=== PATIENT | male | born 1985 | race Caucasian/White ===

== ENCOUNTER 2018-06-19 02:31 | Inpatient (IN) | payer OTHER ==
[2018-06-19] MEDS ORDERED: NACL 0.9% 1000 ML 1,000 ML IV ONE (02:59)
[2018-06-19] MEDS ORDERED: NACL 0.9% 1000 ML IV ONE (03:17)
[2018-06-19] MEDS ORDERED: TYLENOL PO ONE (03:19)
[2018-06-19] MEDS ORDERED: LEVAQUIN 750MG/150ML 750 MG/150 ML BAG IV ONE (03:20)
[2018-06-19 03:45] LABS: INR 1.19 (0.87-1.13)
[2018-06-19 03:46] LABS: Partial Thromboplastin Time 28.7 Sec. (24.2-36.6)
--- NOTE | 2018-06-19 03:47 | Emergency Department Report ---
HPI - General Chief Complaint: Arrhythmia/Palpitations Time Seen by Provider: 06/19/18 02:58 - HPI HPI: 32-year-old male presents to the emergency department via EMS from home with complaint of a 2 day history of dizziness, chest pain, shortness of breath, cough and fever. He denies any past medical history but did have a previous episode of pneumonia around January of last year. He did not take anything for his symptoms prior to arrival. He denies any tobacco or illicit drug use or abuse. No recent travel or sick contacts at home. ED Past Medical Hx - Past Medical History Previous Medical History?: No - Surgical History Past Surgical History?: No - Social History Smoking Status: Never Smoker ED Review of Systems ROS: Stated complaint: DIZZINESS Other details as noted in HPI Comment: All other systems reviewed and negative Constitutional: chills, fever Eyes: denies: eye pain, vision change ENT: denies: ear pain, throat pain Respiratory: cough, shortness of breath Cardiovascular: chest pain, palpitations Gastrointestinal: denies: abdominal pain, vomiting Genitourinary: denies: dysuria, discharge Musculoskeletal: denies: back pain, joint swelling Skin: denies: rash, change in color Neurological: denies: headache, weakness Physical Exam - Physical Exam Vital Signs: Vital Signs 06/19/18 06/19/18 06/19/18 03:02 03:12 03:15 Temperature 102.5 F H Pulse Rate 153 H 151 H 151 H Respiratory 54 H 54 H Rate Blood Pressure 133/67 O2 Sat by Pulse 63 L 67 L Oximetry Physical Exam: GENERAL: Patient is ill-appearing. HEENT: Normocephalic. Atraumatic. Patient has moist mucous membranes. EYES: Extraocular motions are intact. Pupils are equal and reactive to light bilaterally. NECK: Supple. Trachea is midline. CHEST/LUNGS: Rhonchi heard throughout the bilateral lung herrera. There is tachypnea and accessory muscle use. There is respiratory distress noted. HEART/CARDIOVASCULAR: Regular. There is moderate to severe tachycardia. There is no obvious murmur. ABDOMEN: Abdomen is soft, nontender. Patient has normal bowel sounds. There is no abdominal distention. SKIN: Skin is warm and dry. NEURO: The patient is awake, alert, and oriented. The patient is cooperative. The patient has no focal neurologic deficits. The patient has normal speech. MUSCULOSKELETAL: There is no tenderness or deformity. There is no limitation range of motion. There is no evidence of acute injury. ED Course Vital Signs 06/19/18 06/19/18 06/19/18 03:02 03:12 03:15 Temperature 102.5 F H Pulse Rate 153 H 151 H 151 H Respiratory 54 H 54 H Rate Blood Pressure 133/67 O2 Sat by Pulse 63 L 67 L Oximetry - ABG Interpretation Ph: 7.437 PCO2: 22 PO2: 28 Bicarbonate: 14 Interpretation: respiratory alkalosis, metabolic acidosis, other (hypoxemia) - Intubation Time Out Performed: Yes Sedative: Etomidate Mg Given: 20 Paralytic: Succinylcholine Mg Given: 70 Laryngoscope: Hayder Size: 4 ET Tube Size: 7.5 Tube Secured Depth (cm): 24 Tube Secured Location: lips Tube Placement Confirmation: visualized tube passing t, equal breath sounds bilat, confirmation by capnometr Patient Tolerated Procedure: well Intubation Complications: none ED Medical Decision Making - Lab Data Result diagrams: 06/19/18 Unknown 06/19/18 Unknown - EKG Data -: EKG Interpreted by Me EKG shows normal: sinus rhythm, axis, intervals, QRS complexes, ST-T waves Rate: tachycardia (154 bpm) - EKG Data When compared to previous EKG there are: previous EKG unavailable Interpretation: other (Sinus tach at 154 bpm) - Radiology Data Radiology results: report reviewed, image reviewed interpreted by me: Chest x-ray shows bilateral diffuse patchy infiltrates concerning for pneumonia. No pneumothorax. No obvious pleural effusions. PROCEDURE: CT ANGIO CHEST TECHNIQUE: Computerized axial tomographic angiography of the chest and pulmonary arteries was performed after the IV injection of iodinated nonionic contrast. The image data was postprocessed using maximum intensity projection (MIP) and 2-dimensional multiplanar reformatted (MPR) techniques. The examination is specifically tailored to the evaluation of the pulmonary arteries per clinical request. HISTORY: Short of breath 786.09, chest pain 786.50, SOB, hypoxia, elevated dimer COMPARISON: No prior studies are available for comparison. FINDINGS: Heart and pericardium: Normal. Thoracic aorta: There is no thoracic aortic aneurysm or dissection.. Pulmonary vasculature: Normal. No pulmonary emboli. Lymph nodes: No enlarged thoracic lymph nodes. Lungs: There are diffuse bilateral perihilar and lower lobe infiltrates.. Pleural space: No effusion, thickening, or pneumothorax. Musculoskeletal structures: No significant abnormality. Upper abdominal structures: No significant abnormality. IMPRESSION: There is no pulmonary embolism. There are diffuse bilateral infiltrates.. Transcribed By: CO Dictated By: SOLOMON ROJO MD Electronically Authenticated By: SOLOMON ROJO MD Signed Date/Time: 06/19/18 0534 - Medical Decision Making Patient presents to the emergency department with a two-day history of some shortness of breath, fever, chest discomfort/tightness, coughing. Patient meets sepsis criteria. IV fluid resuscitation and antibiotics were started. The patient was found to have moderate tachycardia and tachypnea and was moved from bed 5 to bed 21. He was having some hypoxia so he was placed on a nonrebreather is improved to the hypoxia only transiently and he continues to have increased work of breathing so then a BiPAP was tried. Once again there was only transient improvement and the patient continues to breathe at 50-55 breaths per minute with continued tachycardia. For this reason, after discussing the procedure with the patient and his family, the decision was made to intubate. Patient's labs show mild leukocytosis, mild hyponatremia. ABG shows metabolic acidosis, respiratory alkalosis and hypoxemia. Chest x-ray showed bilateral diffuse patchy infiltrates. A CT angiography of the chest was done secondary to a elevated d-dimer level that did not show any pulmonary embolism but once again confirms diffuse bilateral pneumonia. Patient will be admitted to the ICU for further evaluation and treatment and was accepted for admission by the hospitalist, Dr. Tyson. - Differential Diagnosis pneumonia, PE, URI, pneumothorax, CHF Critical Care Time: Yes Critical care time in (mins) excluding proc time.: 45 Critical care attestation.: If time is entered above; I have spent that time in minutes in the direct care of this critically ill patient, excluding procedure time. Critical care time was spent on this patient and during his initial evaluation, multiple evaluations, ordering an interpretation of labs and imaging, ventilator man agement. This does not include the time spent doing the intubation procedure. Critical Care Time: 45 minutes ED Disposition Clinical Impression: Hyponatremia Bilateral pneumonia Qualifiers: Pneumonia type: due to unspecified organism Lung location: unspecified part of lung Qualified Code(s): J18.9 - Pneumonia, unspecified organism Sepsis Qualifiers: Sepsis type: sepsis due to unspecified organism Qualified Code(s): A41.9 - Sepsis, unspecified organism Acute respiratory failure Qualifiers: Respiratory failure complication: unspecified whether with hypoxia or hypercapnia Qualified Code(s): J96.00 - Acute respiratory failure, unspecified whether with hypoxia or hypercapnia Disposition: 09 OP ADMIT IP TO THIS HOSP Is pt being admited?: Yes Condition: Critical Instructions: Bacterial Pneumonia (ED) Referrals: MARIA FERNANDA MADDEN MD [Primary Care Provider] - 3-5 Days Time of Disposition: 06:38
[2018-06-19 03:58] LABS: BUN/Creatinine Ratio 20; Blood Urea Nitrogen 12 mg/dL (9-20); Calcium 8.1 mg/dL (8.4-10.2); Hemolysis Index 11
[2018-06-19 04:01] LABS: Alanine Aminotransferase 36 units/L (7-56); Albumin 2.8 g/dL (3.9-5)
[2018-06-19 04:05] LABS: Bilirubin,Direct < 0.2 mg/dL (0-0.2)
--- NOTE | 2018-06-19 04:17 | XRay Report ---
FINAL REPORT PROCEDURE: XR CHEST 1V AP TECHNIQUE: Chest radiograph anteroposterior view. CPT 29758 HISTORY: Chest Pain COMPARISON: No prior studies are available for comparison. FINDINGS: Heart: Normal. Mediastinum/Vessels: Normal. Lungs/Pleural space: There are bilateral perihilar lower lobe infiltrates. There is no effusion or pn eumothorax.. Bony thorax: No acute osseous abnormality. Life support devices: None. IMPRESSION: Heart size is normal.. There are bilateral perihilar lower lobe infiltrates. There is no effusion or pneumothorax..
[2018-06-19 04:19] LABS: Hematocrit 38.7 % (35.5-45.6); Hemoglobin 12.9 gm/dl (11.8-15.2); Mean Corpuscular HGB Conc 33 % (32-34); Mean Corpuscular Volume 93 fl (84-94); Platelet Count 316 K/mm3 (140-440); Red Blood Count 4.16 M/mm3 (3.65-5.03); Red Cell Distribution Width 13.9 % (13.2-15.2)
[2018-06-19] MEDS ORDERED: TORADOL IV ONE (04:31)
--- NOTE | 2018-06-19 05:34 | Cat Scan Report ---
FINAL REPORT PROCEDURE: CT ANGIO CHEST TECHNIQUE: Computerized axial tomographic angiography of the chest and pulmonary arteries was perfor med after the IV injection of iodinated nonionic contrast. The image data was postprocessed using max imum intensity projection (MIP) and 2-dimensional multiplanar reformatted (MPR) techniques. The exami nation is specifically tailored to the evaluation of the pulmonary arteries per clinical request. HISTORY: Short of breath 786.09, chest pain 786.50, SOB, hypoxia, elevated dimer COMPARISON: No prior studies are available for comparison. FINDINGS: Heart and pericardium: Normal. Thoracic aorta: There is no thoracic aortic aneurysm or dissection.. Pulmonary vasculature: Normal. No pulmonary emboli. Lymph nodes: No enlarged thoracic lymph nodes. Lungs: There are diffuse bilateral perihilar and lower lobe infiltrates.. Pleural space: No effusion, thickening, or pneumothorax. Musculoskeletal structures: No significant abnormality. Upper abdominal structures: No significant abnormality. IMPRESSION: There is no pulmonary embolism. There are diffuse bilateral infiltrates..
[2018-06-19 05:44] LABS: Basophils % (Manual) 0 % (0.0-1.8); Total Cells Counted 100
[2018-06-19 05:45] LABS: Anisocytosis 1+; Band Neutrophils # (Manual) 5.5 K/mm3; Eosinophils % (Manual) 0 % (0.0-4.3); Ovalocytes 1+
[2018-06-19] MEDS ORDERED: fentaNYL DRIP Premix 2,000 MCG/100 ML BAG IV ONE ×3 (06:00→16:48)
[2018-06-19] MEDS ORDERED: VASELINE LIP THERAPY TP PRN (06:00)
[2018-06-19] MEDS: SUBLIMAZE IV PRN (06:03)
[2018-06-19] MEDS: fentaNYL DRIP Premix 2,000 MCG/100 ML BAG IV SCH ×4 (06:06→22:26)
[2018-06-19] MEDS ORDERED: VANCOMYCIN/NS 1 GM/250 ML 1 GM/250 ML BAG IV ONE (06:30)
[2018-06-19] MEDS ORDERED: SODIUM CHLORIDE FLUSH SYRINGE 10 ML IV PRN (06:30)
[2018-06-19] MEDS ORDERED: ZOFRAN IV PRN (06:30)
[2018-06-19] MEDS: MIDAZOLAM 100 MG in NACL 0.9% 80 ML IV SCH (06:30)
[2018-06-19] MEDS ORDERED: NACL 0.9% 1000 ML 2,000 ML IV ONE (06:32)
--- NOTE | 2018-06-19 06:33 | History and Physical Report ---
History of Present Illness Date of examination: 06/19/18 History of present illness: 32-year-old man with hypertension comes emergency room with complaints of shortness of breath, cough for 3days. He was found to have extensive bilateral pneumonia, placed on BiPAP but he failed. The patient had to be intubated. , ROS unobtainable. Altered bedside stated that the patient has very depressed since March, his at that time. He has been eating very little PAST MEDICAL HISTORY: Unknown PAST SURGICAL HISTORY: Unknown SOCIAL HISTORY: Unknown FAMILY HISTORY: Unknown Medications and Allergies Allergies Allergy/AdvReac Type Severity Reaction Status Date / Time No Known Allergies Allergy Verified 06/19/18 06:10 Home Medications Medication Instructions Recorded Confirmed Last Taken Type ALBUTEROL Inhaler (OR & NICU) 2 puff IH QID PRN 06/19/18 06/19/18 Unknown History [Proair] Pantoprazole [Protonix] 40 mg PO QDAY 06/19/18 06/19/18 Unknown History levoFLOXacin [Levaquin TAB] 500 mg PO QDAY 06/19/18 06/19/18 Unknown History Active Meds: Active Medications Acetaminophen (Tylenol) 650 mg PO Q4H PRN PRN Reason: Pain MILD(1-3)/Fever >100.5/[place] Enoxaparin Sodium (Lovenox) 30 mg SUB-Q QDAY PEYTON Fentanyl (Sublimaze) 50 mcg IV Q10MIN PRN PRN Reason: ANALGESIA Last Admin: 06/19/18 06:03 Dose: 50 mcg Documented by: Hydrophilic Ointment (Vaseline Lip Therapy) 1 applic TP Q2HR PRN PRN Reason: Dry Lips Fentanyl Citrate (Fentanyl Drip Premix) 2,000 mcg in 100 mls @ 3.86 mls/hr IV TITR PEYTON; Protocol Last Admin: 06/19/18 06:06 Dose: 5 mcg/kg/hr, 19.301 mls/hr Documented by: Midazolam HCl 100 mg/ Sodium (Chloride) 100 mls @ 2 mls/hr IV TITR PYETON; Protocol Sodium Chloride (Nacl 0.9% 1000 Ml) 1,000 mls @ 150 mls/hr IV DIRECT PEYTON Vancomycin HCl (Vancomycin/Ns 1 Gm/250 Ml) 1 gm in 250 mls @ 167.007 mls/hr IV ONCE ONE; Protocol Stop: 06/19/18 07:59 Piperacillin Sod/Tazobactam Sod (Zosyn/Ns 4.5gm/100ml) 4.5 gm in 100 mls @ 200 mls/hr IV Q8HR PEYTON; Protocol Sodium Chloride (Nacl 0.9% 1000 Ml) 2,000 mls @ 999 mls/hr IV ONCE ONE Stop: 06/19/18 08:32 Multi-Ingred Cream/Lotion/Oil/Oint (Artificial Tears Ophth Oint) 1 applic OU Q4HR PRN PRN Reason: Dry Eye(s) Ondansetron HCl (Zofran) 4 mg IV Q8H PRN PRN Reason: Nausea And Vomiting Sodium Chloride (Sodium Chloride Flush Syringe 10 Ml) 10 ml IV BID PEYTON Sodium Chloride (Sodium Chloride Flush Syringe 10 Ml) 10 ml IV PRN PRN PRN Reason: LINE FLUSH Exam - Physical Exam Narrative exam: General Apperance: The patient lying in bed, breathing comfortable, intubated HEENT: Normocephalic, atraumatic. Pupils equally round and reactive to light, unable to do EOM, no sclericterus or JVD or thyromegaly or nodule. , no carotid bruit, mucous membranes moist, unable to examine oral cavity Heart: S1-S2, regular is rhythm Lungs: Crackles bilaterally, breathing comfortable Abdomen: Positive bowel sounds, soft, nondistended, no organomegaly Extremities: No edema cyanosis clubbing Skin: no rash, nodule, warm and dry Neuro: Sedated - Constitutional Vitals: Temp Pulse Resp BP Pulse Ox 99.9 F H 146 H 30 H 132/94 85 06/19/18 06:31 06/19/18 06:29 06/19/18 06:29 06/19/18 06:29 06/19/18 06:29 Results - Labs CBC & Chem 7: 07/08/18 05:00 07/08/18 05:00 Labs: Abnormal lab results 06/19/18 06/19/18 06/19/18 Range/Units 03:31 Unknown Unknown WBC 12.9 H (4.5-11.0) K/mm3 Lymphocytes % (Manual) 5.0 L (13.4-35.0) % Lymphocytes # (Manual) 0.6 L (1.2-5.4) K/mm3 PT 15.9 H (12.2-14.9) Sec. INR 1.19 H (0.87-1.13) D-Dimer 8449.09 H (0-234) ng/mlDDU POC ABG pCO2 22.0 L (35-45) POC ABG pO2 28 L (80-105) Sodium (137-145) mmol/L Chloride (98-107) mmol/L Carbon Dioxide (22-30) mmol/L Creatinine (0.8-1.5) mg/dL Glucose (75-100) mg/dL Calcium (8.4-10.2) mg/dL AST (5-40) units/L Total Protein (6.3-8.2) g/dL Albumin (3.9-5) g/dL 06/19/18 06/19/18 Range/Units Unknown Unknown WBC (4.5-11.0) K/mm3 Lymphocytes % (Manual) (13.4-35.0) % Lymphocytes # (Manual) (1.2-5.4) K/mm3 PT (12.2-14.9) Sec. INR (0.87-1.13) D-Dimer (0-234) ng/mlDDU POC ABG pCO2 (35-45) POC ABG pO2 (80-105) Sodium 129 L (137-145) mmol/L Chloride 90.7 L (98-107) mmol/L Carbon Dioxide 17 L (22-30) mmol/L Creatinine 0.6 L (0.8-1.5) mg/dL Glucose 199 H (75-100) mg/dL Calcium 8.1 L (8.4-10.2) mg/dL AST 53 H (5-40) units/L Total Protein 6.0 L (6.3-8.2) g/dL Albumin 2.8 L (3.9-5) g/dL - Imaging and Cardiology EKG: image reviewed Chest x-ray: image reviewed CT scan - chest: report reviewed Assessment and Plan Assessment Acute respiratory failure Sepsis Extensive bilateral pneumonia Plan Admit to medicine Start Zosyn, given dose of Vanco, continue Levaquin Aggressive fLUID resuscitation Start high-dose steroids, first dose now Consult ID, case discussed with Dr. Sanchez, recommended to start Tamiflu Consult critical care DVT prophylaxis
[2018-06-19] MEDS ORDERED: SOLU-Medrol ONE (06:44)
[2018-06-19] MEDS ORDERED: TYLENOL PR ONE ×2 (06:45)
[2018-06-19] MEDS ORDERED: SOLU-Medrol IV ONE (06:45)
[2018-06-19] MEDS ORDERED: NACL 0.9% 1000 ML 1,000 ML IV SCH (07:00)
[2018-06-19] MEDS: ZOSYN/NS 4.5GM/100ML 4.5 GM/100 ML VIAL IV SCH ×3 (07:01→22:20)
--- NOTE | 2018-06-19 07:07 | Event Note ---
Date: 06/19/18 Cross cover assist for the admitting attending to place HIV testing.
--- NOTE | 2018-06-19 07:50 | XRay Report ---
FINAL REPORT PROCEDURE: XR CHEST 1V AP TECHNIQUE: Chest radiograph anteroposterior view. CPT 50615 HISTORY: ETT placement COMPARISON: 06/19/2018 FINDINGS: Heart: Normal. Mediastinum/Vessels: Normal. Lungs/Pleural space: There are diffuse bilateral perihilar pulmonary infiltrates similar to prior gee dy. There is no effusion or pneumothorax per. Bony thorax: No acute osseous abnormality. Life support devices: There is an endotracheal tube. The tip is 4 centimeters above the bernardino.. IMPRESSION: Heart size is normal.. There are diffuse bilateral perihilar pulmonary infiltrates similar to prior study. There is no effus ion or pneumothorax per. There is an endotracheal tube. The tip is 4 centimeters above the bernardino..
[2018-06-19 08:30] LABS: Bilirubin,Urine NEG (Negative); Blood,Urine SM (Negative); Color,Urine Yellow (Yellow); Mucus,Urine FEW /HPF; Urobilinogen,Urine < 2.0 mg/dL (<2.0)
[2018-06-19 09:00] LABS: Amphetamine Screen,Urine PRESUMPTIVE NEGATIVE; Cannabinoid Screen,Urine PRESUMPTIVE NEGATIVE; Cocaine Screen,Urine PRESUMPTIVE NEGATIVE; Methadone Screen,Urine PRESUMPTIVE NEGATIVE; Opiate Screen,Urine PRESUMPTIVE NEGATIVE
[2018-06-19] MEDS ORDERED: SODIUM BICARBONATE IV ONE (09:00)
[2018-06-19 09:11] LABS: Benzodiazepines Screen,Urine PRESUMPTIVE POSITIVE
[2018-06-19] MEDS: SODIUM CHLORIDE FLUSH SYRINGE 10 ML IV SCH ×2 (09:48→22:21)
[2018-06-19] MEDS: NACL 0.9% 1000 ML 1,000 ML IV SCH ×4 (10:00→16:16)
[2018-06-19] MEDS ORDERED: LOVENOX SUB-Q SCH ×3 (10:00→22:00)
[2018-06-19] MEDS ORDERED: TAMIFLU PO SCH (10:00)
[2018-06-19] MEDS: TAMIFLU PO SCH (10:01)
--- NOTE | 2018-06-19 10:04 | Consultation ---
History of Present Illness Consult date: 06/19/18 Requesting physician: PAMELA ALARCON Reason for consult: hypoxemia, pneumonia, abnormal CXR/CT History of present illness: The patient is a 32-year-old male with no significant past medical history who presented to the emergency room with complaints of worsening shortness of breath over the last 2-3 days. Upon evaluation in the emergency room, he was found to be significantly hypoxic initially requiring BiPAP which he failed and hence he had to be intubated. I have been consulted for critical care management. He is unable to give history. He has friends and family at the bedside, who state his suddenly several weeks ago but are unable to provide any further history CT chest angiogram shows extensive bilateral infiltrates. An HIV test done is positive. Patient was seen and examined. Vitals, labs, medications, chart and imaging reviewed. He is orally intubated, sedated. No patient-ventilator dys-synchrony Medications and Allergies Allergies Allergy/AdvReac Type Severity Reaction Status Date / Time No Known Allergies Allergy Verified 06/19/18 06:10 Home Medications Medication Instructions Recorded Confirmed Last Taken Type ALBUTEROL Inhaler (OR & NICU) 2 puff IH QID PRN 06/19/18 06/19/18 Unknown Histor y [Proair] Pantoprazole [Protonix] 40 mg PO QDAY 06/19/18 06/19/18 Unknown History levoFLOXacin [Levaquin TAB] 500 mg PO QDAY 06/19/18 06/19/18 Unknown History Active Meds: Active Medications Acetaminophen (Tylenol) 650 mg PO Q4H PRN PRN Reason: Pain MILD(1-3)/Fever >100.5/[place] Enoxaparin Sodium (Lovenox) 40 mg SUB-Q QDAY@1000 PEYTON Last Admin: 06/19/18 10:00 Dose: 40 mg Documented by: Fentanyl (Sublimaze) 50 mcg IV Q10MIN PRN PRN Reason: ANALGESIA Last Admin: 06/19/18 06:03 Dose: 50 mcg Documented by: Hydrophilic Ointment (Vaseline Lip Therapy) 1 applic TP Q2HR PRN PRN Reason: Dry Lips Fentanyl Citrate (Fentanyl Drip Premix) 2,000 mcg in 100 mls @ 3.86 mls/hr IV TITR PEYTON; Protocol Last Admin: 06/19/18 06:06 Dose: 5 mcg/kg/hr, 19.301 mls/hr Documented by: Midazolam HCl 100 mg/ Sodium (Chloride) 100 mls @ 2 mls/hr IV TITR PEYTON; Froilan col Last Admin: 06/19/18 06:30 Dose: 2 mg/hr, 2 mls/hr Documented by: Sodium Chloride (Nacl 0.9% 1000 Ml) 1,000 mls @ 150 mls/hr IV DIRECT PEYTON Last Admin: 06/19/18 07:48 Dose: 150 mls/hr Documented by: Piperacillin Sod/Tazobactam Sod (Zosyn/Ns 4.5gm/100ml) 4.5 gm in 100 mls @ 200 mls/hr IV Q8HR PEYTON; Protocol Last Admin: 06/19/18 07:01 Dose: 200 mls/hr Documented by: Levofloxacin/Dextrose (Levaquin 750mg/150ml) 750 mg in 150 mls @ 100 mls/hr IV Q24HR PEYTON; Protocol Sodium Chloride (Nacl 0.9% 1000 Ml) 1,000 mls @ 0 mls/hr IV ONCE PEYTON Stop: 06/20/18 10:01 Last Admin: 06/19/18 10:00 Dose: 1,000 mls/hr Documented by: Multi-Ingred Cream/Lotion/Oil/Oint (Artificial Tears Ophth Oint) 1 applic OU Q4HR PRN PRN Reason: Dry Eye(s) Ondansetron HCl (Zofran) 4 mg IV Q8H PRN PRN Reason: Nausea And Vomiting Oseltamivir Phosphate (Tamiflu) 75 mg PO BID [facility] Stop: 06/23/18 10:01 Last Admin: 06/19/18 10:01 Dose: 75 mg Documented by: Sodium Chloride (Sodium Chloride Flush Syringe 10 Ml) 10 ml IV BID PEYTON Last Admin: 06/19/18 09:48 Dose: 10 ml Documented by: Sodium Chloride (Sodium Chloride Flush Syringe 10 Ml) 10 ml IV PRN PRN PRN Reason: LINE FLUSH Physical Examination Vital signs: Vital Signs Temp Pulse BP 102.5 F H 153 H 133/67 06/19/18 03:02 06/19/18 03:02 06/19/18 03:02 Constitutional: sedated, intubated -no dys-synchrony, ETT at 23cm at the lip Head, Ears, Nose: Normocephalic, atraumatic. Eyes: Conjunctivae/corneas clear. No icterus. No ptosis. Neck: Supple, no meningeal signs Cardiovascular: Tachycardia, S1, S2 normal, no murmurs Respiratory: Decreased air entry bilaterally, clear to auscultation bilaterally GI: Soft, non-tender; bowel sounds normal. No peritoneal signs Musculoskeletal: No pedal edema, no cyanosis. Skin: No rash or abscess Hem/Lymphatic: No palpable cervical or supraclavicular nodes. Psych: no agitation Neurological: sedated Results - Laboratory Findings CBC and BMP: 06/25/18 11:40 06/25/18 11:40 ABG POC ABG pH 7.198 (7.35-7.45) L 06/19/18 09:49 POC ABG pCO2 40.2 (35-45) 06/19/18 09:49 POC ABG pO2 96 (80-105) 06/19/18 09:49 POC ABG HCO3 15.6 06/19/18 09:49 POC ABG Total CO2 17 06/19/18 09:49 POC ABG O2 Sat 96 06/19/18 09:49 PT/INR, D-dimer PT 15.9 Sec. (12.2-14.9) H 06/19/18 Unknown INR 1.19 (0.87-1.13) H 06/19/18 Unknown D-Dimer 8449.09 ng/mlDDU (0-234) H 06/19/18 Unknown Abnormal lab findings: Abnormal Labs 06/19/18 06/19/18 06/19/18 03:31 07:42 08:07 WBC Lymphocytes % (Manual) Lymphocytes # (Manual) PT INR D-Dimer POC ABG pH 6.974 L POC ABG pCO2 22.0 L 83.4 H POC ABG pO2 28 L 122 H Sodium Chloride Carbon Dioxide Creatinine Glucose Calcium AST Total Protein Albumin Ur Specific [place] 1.060 H Urine WBC (Auto) 8.0 H 06/19/18 06/19/18 06/19/18 08:16 09:49 Unknown WBC 12.9 H Lymphocytes % (Manual) 5.0 L Lymphocytes # (Manual) 0.6 L PT INR D-Dimer POC ABG pH 6.996 L 7.198 L POC ABG pCO2 82.4 H POC ABG pO2 Sodium Chloride Carbon Dioxide Creatinine Glucose Calcium AST Total Protein Albumin Ur Specific [place] Urine WBC (Auto) 06/19/18 06/19/18 06/19/18 Unknown Unknown Unknown WBC Lymphocytes % (Manual) Lymphocytes # (Manual) PT 15.9 H INR 1.19 H D-Dimer 8449.09 H POC ABG pH POC ABG pCO2 POC ABG pO2 Sodium 129 L Chloride 90.7 L Carbon Dioxide 17 L Creatinine 0.6 L Glucose 199 H Calcium 8.1 L AST 53 H Total Protein 6.0 L Albumin 2.8 L Ur Specific [place] Urine WBC (Auto) - Diagnostic Findings Chest x-ray: image reviewed (Bilateral alveolar infitrates) CT scan - chest: image reviewed Assessment and Plan Acute Hypoxemic Respiratory Failure on MVS AIDS / HIV positive Severe Sepsis due to Pneumonia Hyponatremia Severe metabolic acidosis -VAP bundle addressed - Continue supplemental oxygen to keep sats > 90% -Increase PEEP and FIO2 for better oxygenation -tracheal aspirator for cultures, fungal stains and silver stain - continue bronchodilators with pulmonary -vasopressor support if indicated to keep MAP>65 - Bactrim, emiprically for PJP, add steroids -Continue empiric and targeted anti-infective's per ID recs - place small bowel feeding tube for enteral nutrition -Aspiration precautions, HOB>40 -Accucheck and monitor for hypoglycemia -Target glucose of 140mg- 180mg/dL - monitor for drug-drug interactions - nutrition consult - Daily SATs and SBT per protocol - VTE and stress ulcer prophylaxis -critical care bundles addressed -muir catheter in this critically ill patient requiring strict intake and output monitor CONDITION: CRITICAL PROGNOSIS: GUARDED CODE STATUS: FULL CODE The high probability of a clinically significant, sudden or life-threatening deterioration of the [cardiac, respiratory] system(s) required my full and direct attention, intervention and personal management. The aggregate critical care time was [65] minutes without overlap. Time includes spent on; [x] Data Review and interpretation [x] Patient assessment and monitoring of vital signs [x] Documentation
[2018-06-19] MEDS ORDERED: NACL 0.9% 500 ML 500 ML IV ONE (10:07)
[2018-06-19] MEDS ORDERED: PEPCID IV SCH (11:00)
[2018-06-19] MEDS ORDERED: ZOSYN/NS 4.5GM/100ML 4.5 GM/100 ML VIAL IV ONE (13:10)
[2018-06-19] MEDS ORDERED: NACL 0.9% 500 ML 500 ML ONE (13:10)
[2018-06-19] MEDS ORDERED: ZEMURON IV ONE (14:28)
[2018-06-19] MEDS ORDERED: QUELICIN ONE (14:28)
[2018-06-19] MEDS ORDERED: AMIDATE IV ONE (14:28)
[2018-06-19] MEDS ORDERED: VERSED IV ONE (14:28)
[2018-06-19] MEDS ORDERED: LOVENOX SUB-Q ONE (15:00)
--- NOTE | 2018-06-19 15:09 | Consultation ---
History of Present Illness - Reason for Consult Consult date: 06/19/18 bilateral pneumonia Requesting physician: PAMELA ALARCON - History of Present Illness The patient is a 32-year-old male with no significant past medical history who presented to the emergency room with complaints of worsening shortness of breath over the last 2-3 days. Upon evaluation in the emergency room, he was found to be significantly hypoxic initially requiring BiPAP which he failed and hence he had to be intubated. He underwent a CT chest angiogram which showed extensive bilateral pneumonia for which infectious diseases was consulted. We recommended obtaining an HIV test and starting the patient empirically on Tamiflu and checking him for influenza. His HIV test has returned positive. Currently he is intubated, sedated on mechanical ventilation. Unable to provide any history. His aunt is at the bedside who doesn't seem to know most of the history. Review of Systems: Intubated, unable to provide history Medications and Allergies Allergies Allergy/AdvReac Type Severity Reaction Status Date / Time No Known Allergies Allergy Verified 06/19/18 06:10 Home Medications Medication Instructions Recorded Confirmed Last Taken Type ALBUTEROL Inhaler (OR & NICU) 2 puff IH QID PRN 06/19/18 06/19/18 Unknown History [Proair] Pantoprazole [Protonix] 40 mg PO QDAY 06/19/18 06/19/18 Unknown History levoFLOXacin [Levaquin TAB] 500 mg PO QDAY 06/19/18 06/19/18 Unknown History Active Meds: Active Medications Acetaminophen (Tylenol) 650 mg PO Q4H PRN PRN Reason: Pain MILD(1-3)/Fever >100.5/[place] Enoxaparin Sodium (Lovenox) 40 mg SUB-Q QDAY@1000 PEYTON Last Admin: 06/19/18 10:00 Dose: 40 mg Documented by: Enoxaparin Sodium (Lovenox) 120 mg 1.5 mg/kg (120 mg) SUB-Q Q24HR ONE Stop: 06/19/18 15:01 Famotidine (Pepcid) 20 mg IV ONCE PEY[place] Famotidine (Pepcid) 20 mg IV DAILY PEYTON Fentanyl (Sublimaze) 50 mcg IV Q10MIN PRN PRN Reason: ANALGESIA Last Admin: 06/19/18 06:03 Dose: 50 mcg Documented by: Hydrophilic Ointment (Vaseline Lip Therapy) 1 applic TP Q2HR PRN PRN Reason: Dry Lips Fentanyl Citrate (Fentanyl Drip Premix) 2,000 mcg in 100 mls @ 3.86 mls/hr IV TITR PEYTON; Protocol Last Titration: 06/19/18 14:36 Dose: 4 mcg/kg/hr, 15.441 mls/hr Documented by: Midazolam HCl 100 mg/ Sodium (Chloride) 100 mls @ 2 mls/hr IV TITR PEYTON; Protocol Last Admin: 06/19/18 06:30 Dose: 2 mg/hr, 2 mls/hr Documented by: Sodium Chloride (Nacl 0.9% 1000 Ml) 1,000 mls @ 150 mls/hr IV DIRECT PEYTON Last Admin: 06/19/18 07:48 Dose: 150 mls/hr Documented by: Piperacillin Sod/Tazobactam Sod (Zosyn/Ns 4.5gm/100ml) 4.5 gm in 100 mls @ 200 mls/hr IV Q8HR PEYTON; Protocol Last Admin: 06/19/18 13:20 Dose: 200 mls/hr Documented by: Sodium Chloride (Nacl 0.9% 1000 Ml) 1,000 mls @ 0 mls/hr IV ONCE PEY[place] Stop: 06/20/18 10:01 Last Admin: 06/19/18 11:37 Dose: 1,000 mls/hr Documented by: Sodium Chloride (Nacl 0.9% 1000 Ml) 1,000 mls @ 0 mls/hr IV ONCE PEY[place] Stop: 06/20/18 15:01 Norepinephrine (Levophed Drip 4 Mg/Ns 250 Ml) 4 mg in 250 mls @ 7.5 mls/hr IV TITR PEYTON; Protocol Trimethoprim/Sulfamethoxazole 385 mg/ IV Miscellaneous Supplies 24.0625 mls @ 167 mls/hr IV Q6HR PEYTON; Protocol Methylprednisolone Sodium Succinate (Solu-Medrol) 40 mg IV Q12HR PEYTON Multi-Ingred Cream/Lotion/Oil/Oint (Artificial Tears Ophth Oint) 1 applic OU Q4HR PRN PRN Reason: Dry Eye(s) Ondansetron HCl (Zofran) 4 mg IV Q8H PRN PRN Reason: Nausea And Vomiting Oseltamivir Phosphate (Tamiflu) 75 mg PO BID PEYTON Stop: 06/23/18 10:01 Last Admin: 06/19/18 10:01 Dose: 75 mg Documented by: Sodium Chloride (Sodium Chloride Flush Syringe 10 Ml) 10 ml IV BID PEYTON Last Admin: 06/19/18 09:48 Dose: 10 ml Documented by: Sodium Chloride (Sodium Chloride Flush Syringe 10 Ml) 10 ml IV PRN PRN PRN Reason: LINE FLUSH Physical Examination - Physical Exam Narrative exam: Physical Exam: Constitutional: sedated, intubated Head, Ears, Nose: Normocephalic, atraumatic. External ears, nose normal Eyes: Conjunctivae/corneas clear. No icterus. No ptosis. Neck: Supple, no meningeal signs Oral: intubated Cardiovascular: S1, S2 normal. Respiratory: Good air entry, clear to auscultation bilaterally GI: Soft, non-tender; bowel sounds normal. No peritoneal signs Musculoskeletal: No pedal edema, no cyanosis. Skin: No rash or abscess Hem/Lymphatic: No palpable cervical or supraclavicular nodes. No lymphangitis Psych: no agitation Neurological: sedated, intubated, on vent - Constitutional Vitals: Vital Signs Temp Pulse Resp BP Pulse Ox 97.2 F L 106 H 30 H 87/57 94 06/19/18 13:50 06/19/18 14:15 06/19/18 14:15 06/19/18 14:15 06/19/18 14:15 Temperature -Last 24 Hours Temperature 97.2 F Temperature 97.8 F Temperature 98.4 F Temperature 99.4 F Temperature 99.9 F Temperature 98.9 F Temperature 102.5 F Results - Labs CBC & Chem 7: 06/19/18 Unknown 06/19/18 Unknown Labs: Abnormal lab results 06/19/18 06/19/18 06/19/18 Range/Units 03:31 07:42 08:07 WBC (4.5-11.0) K/mm3 Lymphocytes % (Manual) (13.4-35.0) % Lymphocytes # (Manual) (1.2-5.4) K/mm3 PT (12.2-14.9) Sec. INR (0.87-1.13) D-Dimer (0-234) ng/mlDDU POC ABG pH 6.974 L (7.35-7.45) POC ABG pCO2 22.0 L 83.4 H (35-45) POC ABG pO2 28 L 122 H (80-105) Sodium (137-145) mmol/L Chloride (98-107) mmol/L Carbon Dioxide (22-30) mmol/L Creatinine (0.8-1.5) mg/dL Glucose (75-100) mg/dL Calcium (8.4-10.2) mg/dL AST (5-40) units/L Total Protein (6.3-8.2) g/dL Albumin (3.9-5) g/dL Ur Specific [place] 1.060 H (1.003-1.030) Urine WBC (Auto) 8.0 H (0.0-6.0) /HPF 06/19/18 06/19/18 06/19/18 Range/Units 08:16 09:49 11:15 WBC (4.5-11.0) K/mm3 Lymphocytes % (Manual) (13.4-35.0) % Lymphocytes # (Manual) (1.2-5.4) K/mm3 PT (12.2-14.9) Sec. INR (0.87-1.13) D-Dimer (0-234) ng/mlDDU POC ABG pH 6.996 L 7.198 L 7.206 L (7.35-7.45) POC ABG pCO2 82.4 H (35-45) POC ABG pO2 75 L (80-105) Sodium (137-145) mmol/L Chloride (98-107) mmol/L Carbon Dioxide (22-30) mmol/L Creatinine (0.8-1.5) mg/dL Glucose (75-100) mg/dL Calcium (8.4-10.2) mg/dL AST (5-40) units/L Total Protein (6.3-8.2) g/dL Albumin (3.9-5) g/dL Ur Specific [place] (1.003-1.030) Urine WBC (Auto) (0.0-6.0) /HPF 06/19/18 06/19/18 06/19/18 Range/Units Unknown Unknown Unknown WBC 12.9 H (4.5-11.0) K/mm3 Lymphocytes % (Manual) 5.0 L (13.4-35.0) % Lymphocytes # (Manual) 0.6 L (1.2-5.4) K/mm3 PT 15.9 H (12.2-14.9) Sec. INR 1.19 H (0.87-1.13) D-Dimer 8449.09 H (0-234) ng/mlDDU POC ABG pH (7.35-7.45) POC ABG pCO2 (35-45) POC ABG pO2 (80-105) Sodium 129 L (137-145) mmol/L Chloride 90.7 L (98-107) mmol/L Carbon Dioxide 17 L (22-30) mmol/L Creatinine 0.6 L (0.8-1.5) mg/dL Glucose 199 H (75-100) mg/dL Calcium 8.1 L (8.4-10.2) mg/dL AST (5-40) units/L Total Protein (6.3-8.2) g/dL Albumin (3.9-5) g/dL Ur Specific [place] (1.003-1.030) Urine WBC (Auto) (0.0-6.0) /HPF 06/19/18 Range/Units Unknown WBC (4.5-11.0) K/mm3 Lymphocytes % (Manual) (13.4-35.0) % Lymphocytes # (Manual) (1.2-5.4) K/mm3 PT (12.2-14.9) Sec. INR (0.87-1.13) D-Dimer (0-234) ng/mlDDU POC ABG pH (7.35-7.45) POC ABG pCO2 (35-45) POC ABG pO2 (80-105) Sodium (137-145) mmol/L Chloride (98-107) mmol/L Carbon Dioxide (22-30) mmol/L Creatinine (0.8-1.5) mg/dL Glucose (75-100) mg/dL Calcium (8.4-10.2) mg/dL AST 53 H (5-40) units/L Total Protein 6.0 L (6.3-8.2) g/dL Albumin 2.8 L (3.9-5) g/dL Ur Specific [place] (1.003-1.030) Urine WBC (Auto) (0.0-6.0) /HPF - Imaging and Cardiology Chest x-ray: report reviewed, image reviewed (bilateral ground glass opacities and pneumonia) CT scan - chest: report reviewed, image reviewed (bilateral ground glass opacities and pneumonia) Assessment and Plan Cultures: 06/19/2018 blood culture: Progress 06/19/2018 tracheal aspirate: In progress A/P: 32/M with: #1 Bilateral pneumonia: Extensive bilateral ground glass opacities and pneumonia with severe hypoxia: Clinically concerning for PCP pneumonia since HIV test has come back as positive. Will start IV Bactrim and steroids. PCP DFA ordered on tracheal aspirate #2 Acute respiratory failure: Requiring mechanical ventilation. #3 HIV, likely AIDS: Follow-up CD4 count, viral load and genotype. Also check CMV DNA PCR. #4 Sepsis: Likely secondary to above Recs: Due to high suspicion for possible PCP pneumonia, discontinued levofloxacin and started empiric IV Bactrim Additional HIV labs ordered Started IV steroids as adjunctive therapy due to hypoxia Continue Tamiflu for now till flu PCR results are back PCP DFA ordered on tracheal aspirate CMV PCR also ordered Okay to continue Zosyn for now, anticipate stopping soon MD [facility] C: [phone] O: [phone] F: [phone]
[2018-06-19] MEDS ORDERED: LEVOPHED DRIP 4 MG/NS 250 ML 4 MG/250 ML BAG IV ONE (15:10)
[2018-06-19] MEDS: LEVOPHED DRIP 4 MG/NS 250 ML 4 MG/250 ML BAG IV SCH (15:16)
--- NOTE | 2018-06-19 15:31 | Event Note ---
Date: 06/19/18 Patient seen and examined, remains critically ill. Continue current management. Ask friend at bedside this am, If he can assist in obtaining patients medical hx or family information. Already given 4 liters of fluids-NS. Will start on Pressors. Discussed with Team to place line Await cultures Guarded prognosis.
[2018-06-19] MEDS ORDERED: ATIVAN ONE (15:44)
[2018-06-19] MEDS ORDERED: ATIVAN IV ONE (15:44)
[2018-06-19] MEDS ORDERED: SIMPLE SYRUP FEEDTUBE PRN ×2 (16:02)
[2018-06-19] MEDS ORDERED: PANCREAZE DR 10,500 UNIT FEEDTUBE PRN (16:02)
[2018-06-19] MEDS ORDERED: SODIUM BICARBONATE FEEDTUBE PRN (16:02)
--- NOTE | 2018-06-19 16:44 | Procedure Note ---
Date of procedure: 06/19/18 Pre-op diagnosis: Respiratory Failure, sepsis Post-op diagnosis: same Procedure: Right IJ Central Line placement under ultrasound guidance. Patient prepped and draped in the usual sterile fashion. timeout taken to verify correct patient, procedure, and operative site. Ultrasound utilized to identify the RIJV. Local anesthesia with 1% Lidocaine. Seldinger technique used to access the RIJV. Guidewire placed into the RIJV and the seeker needle removed over the wire. Scalpel used to incise the skin. Dilator placed over the guidewire and removed. Triple lumen catheter placed into RIJV without difficulty and sewn in place. All 3 ports flush and draw with ease. biopatch placed at incision site. Postop CXR did not show pneumothorax. Central line in SVC. Anesthesia: local Surgeon: ALFREDO BONILLA Estimated blood loss: minimal Pathology: none Condition: critical Disposition: ICU
[2018-06-19] MEDS: BACTRIM IV SCH ×2 (17:05→18:12)
[2018-06-19] MEDS: D5W IV SCH ×2 (17:05→18:12)
--- NOTE | 2018-06-19 17:12 | XRay Report ---
FINAL REPORT EXAM: XR CHEST 1V AP HISTORY: Central Line Placement TECHNIQUE: Chest single AP PRIORS: Comparison is dated June 19, 2018 FINDINGS: ET tube in satisfactory position approximately 4 centimeters above bernardino. There is a right IJ cathet er with tip at the SVC. No evidence for pneumothorax post catheter placement. There is an NG tube dis rodrigo end overlying the left upper quadrant of the abdomen. There are extensive ground-glass hazy opaci ties with some air bronchograms present suspect pulmonary edema. No pleural effusion identified. Ther e is mild thickening of the minor fissure. IMPRESSION: Right IJ catheter and other life-support devices in satisfactory position Findings most suggestive of pulmonary edema unchanged from prior exam
--- NOTE | 2018-06-19 18:36 | Vascular Lab Report ---
FINAL REPORT EXAM: VL VENOUS DUPLEX LE BILAT HISTORY: DVT TECHNIQUE: Ultrasound bilateral deep venous system with pulsed and color Doppler evaluation PRIORS: None. FINDINGS: Ultrasound deep venous system right lower extremity demonstrates normal compressibility and flow antoinette acteristics. There is normal sonographic appearance of the deep venous system with normal waveforms o n pulsed and color Doppler evaluation Within the left lower extremity there is normal flow and is superficial femoral through popliteal vei ns with normal flow on Doppler evaluation. The peroneal and posterior tibial veins demonstrate incomp letely seen compressibility most consistent with the calf vein deep venous thrombosis. IMPRESSION: Findings are most consistent with deep venous thrombosis within the left peroneal and posterior tibia l vein which are incompletely compressible. This may be acute or chronic finding. CTR 2 protocol initiated at the time of this dictation
--- NOTE | 2018-06-19 19:39 | Event Note ---
Date: 06/19/18 Pt seen and evaluated by me. Pt found to be critically ill. LLE Duplex reported at E DVT. Pt initiated on therapeutic anticoagulation. CT head ordered as well. 65 minutes critical care time dedicated to patient care.
--- NOTE | 2018-06-19 20:25 | Cat Scan Report ---
FINAL REPORT EXAM: CT HEAD/BRAIN WO CON HISTORY: confusion TECHNIQUE: CT head without contrast PRIORS: None. FINDINGS: No acute intra-axial or extra-axial hemorrhage is identified. There is no evidence of midline shift or mass effect. The ventricles and sulci are within normal limits. Lisa-white matter differentiation is intact. No acute parenchymal abnormalities seen. Bony calvarium is grossly intact. Visualized portions of the mastoids and paranasal sinuses are unre markable. IMPRESSION: Negative CT head
[2018-06-19] MEDS: SOLU-Medrol IV SCH (22:20)
[2018-06-19] MEDS: LOVENOX SUB-Q SCH (22:20)
[2018-06-20] MEDS: BACTRIM IV SCH ×4 (00:22→18:00)
[2018-06-20] MEDS: D5W IV SCH ×4 (00:22→18:00)
--- NOTE | 2018-06-20 02:34 | XRay Report ---
FINAL REPORT EXAM: XR ABDOMEN 1V AP HISTORY: OG tube placement TECHNIQUE: An upright view of the abdomen was obtained. FINDINGS: The tip of the NG tube is in the antral region of the stomach. The bowel gas pattern otherwise is unr emarkable. Free air is not seen. There are atelectatic changes in both lung bases. IMPRESSION: Tip of the NG tube in the antral region of the stomach.
[2018-06-20] MEDS: TAMIFLU PO SCH ×3 (03:46→22:14)
--- NOTE | 2018-06-20 06:03 | XRay Report ---
FINAL REPORT PROCEDURE: XR CHEST 1V AP TECHNIQUE: Chest radiograph anteroposterior view. CPT 21992 HISTORY: follow up respiratory failure COMPARISON: No prior studies are available for comparison. FINDINGS: Heart: Heart size is normal. Mediastinum/Vessels: Normal. Lungs/Pleural space: There is no acute infiltrate. There is minimal residual pulmonary edema. This herr s improved significantly since the prior study. There is no pleural effusion or pneumothorax.. Bony thorax: No acute osseous abnormality. Life support devices: The endotracheal tube, NG tube and central venous catheter are in proper positi on and unchanged from prior study. IMPRESSION: Heart size is normal. There is no acute infiltrate. There is minimal residual pulmonary edema. This has improved significan tly since the prior study. There is no pleural effusion or pneumothorax.. The endotracheal tube, NG tube and central venous catheter are in proper position and unchanged from prior study. .
[2018-06-20] MEDS: ZOSYN/NS 4.5GM/100ML 4.5 GM/100 ML VIAL IV SCH ×3 (06:07→22:13)
[2018-06-20] MEDS: fentaNYL DRIP Premix 2,000 MCG/100 ML BAG IV SCH ×2 (06:55→19:50)
[2018-06-20 08:37] LABS: Hematocrit 30.4 % (35.5-45.6); Hemoglobin 9.8 gm/dl (11.8-15.2); Mean Corpuscular HGB Conc 32 % (32-34); Mean Corpuscular Volume 94 fl (84-94); Platelet Count 252 K/mm3 (140-440); Red Blood Count 3.25 M/mm3 (3.65-5.03); Red Cell Distribution Width 14.5 % (13.2-15.2)
[2018-06-20 08:59] LABS: Albumin 2.1 g/dL (3.9-5); BUN/Creatinine Ratio 19; Blood Urea Nitrogen 15 mg/dL (9-20); Calcium 6.6 mg/dL (8.4-10.2); Hemolysis Index 4
[2018-06-20 09:23] LABS: Alanine Aminotransferase 836 units/L (7-56)
[2018-06-20 09:46] LABS: Basophils % (Manual) 0 % (0.0-1.8); Eosinophils % (Manual) 0 % (0.0-4.3); Monocytes % (Manual) 0 % (0.0-7.3); Total Cells Counted 100
[2018-06-20 09:47] LABS: Anisocytosis 1+; Ovalocytes 1+; Platelet Estimate Consistent w Auto; Poikilocytosis 1+
[2018-06-20] MEDS ORDERED: LEVAQUIN 750MG/150ML 750 MG/150 ML BAG IV SCH (10:00)
[2018-06-20] MEDS ORDERED: PEPCID IV SCH (10:00)
[2018-06-20] MEDS: SODIUM CHLORIDE FLUSH SYRINGE 10 ML IV SCH ×2 (10:12→22:16)
[2018-06-20] MEDS: LOVENOX SUB-Q SCH ×2 (10:12→22:12)
[2018-06-20] MEDS: SOLU-Medrol IV SCH ×2 (10:12→22:12)
--- NOTE | 2018-06-20 10:58 | Progress Note ---
Assessment and Plan Cultures: 06/19/2018 blood culture: Progress 06/19/2018 tracheal aspirate: In progress A/P: 32/M with: #1 Bilateral pneumonia: Extensive bilateral ground glass opacities and pneumonia with severe hypoxia: Clinically concerning for PCP pneumonia since HIV test has come back as positive. Will continue IV Bactrim and steroids. PCP DFA ordered on tracheal aspirate and pending. #2 Acute respiratory failure: Requiring mechanical ventilation. #3 HIV, likely AIDS: Follow-up CD4 count, viral load and genotype. Also f/u CMV DNA PCR. #4 Sepsis: Likely secondary to above Recs: continue empiric IV Bactrim f/u HIV labs continue IV steroids as adjunctive therapy due to hypoxia Continue Tamiflu for now till flu PCR results are back, spoke to RN today to ensure sample is sent PCP DFA f/u CMV PCR f/u Okay to continue Zosyn for now, anticipate stopping soon Nimesh Sanchez MD [facility] C: [phone] O: [phone] F: [phone] Subjective Date of service: 06/20/18 Interval history: No fever. Last night had hypotension, briefly required pressors, now off. Remains on the vent. Can be awakened, follows basic commands. Discussed with RN, no new concerns. Objective - Exam Narrative Exam: Physical Exam: Constitutional: sedated, intubated, can be awakened. Head, Ears, Nose: Normocephalic, atraumatic. External ears, nose normal Eyes: Conjunctivae/corneas clear. No icterus. No ptosis. Neck: Supple, no meningeal signs Oral: intubated Cardiovascular: S1, S2 normal. Respiratory: Good air entry, clear to auscultation bilaterally GI: Soft, non-tender; bowel sounds normal. No peritoneal signs Musculoskeletal: No pedal edema, no cyanosis. Skin: No rash or abscess Hem/Lymphatic: No palpable cervical or supraclavicular nodes. No lymphangitis Psych: no agitation Neurological: sedated, intubated, on vent, can be awakened, follows commands. - Constitutional Vitals: Vital Signs Temp Pulse Resp BP Pulse Ox 98.9 F 105 H 22 137/81 99 06/20/18 08:00 06/20/18 08:21 06/20/18 08:21 06/20/18 08:21 06/20/18 08:21 Temperature -Last 24 Hours Temperature 98.9 F Temperature 98.3 F Temperature 97.2 F Temperature 97.2 F Temperature 97.8 F - Labs CBC & Chem 7: 06/20/18 08:13 06/20/18 08:13 Labs: Abnormal lab results 06/19/18 06/19/18 06/20/18 Range/Units 11:15 18:54 04:33 WBC (4.5-11.0) K/mm3 RBC (3.65-5.03) M/mm3 Hgb (11.8-15.2) gm/dl Hct (35.5-45.6) % Seg Neuts % (Manual) (40.0-70.0) % Lymphocytes % (Manual) (13.4-35.0) % Seg Neutrophils # Man (1.8-7.7) K/mm3 Lymphocytes # (Manual) (1.2-5.4) K/mm3 POC ABG pH 7.206 L 7.249 L (7.35-7.45) POC ABG pO2 75 L 118 H (80-105) Carbon Dioxide (22-30) mmol/L Glucose (75-100) mg/dL POC Glucose 196 H (70-105) Calcium (8.4-10.2) mg/dL AST (5-40) units/L ALT (7-56) units/L Total Protein (6.3-8.2) g/dL Albumin (3.9-5) g/dL 06/20/18 06/20/18 Range/Units 08:13 08:13 WBC 11.8 H (4.5-11.0) K/mm3 RBC 3.25 L (3.65-5.03) M/mm3 Hgb 9.8 L D (11.8-15.2) gm/dl Hct 30.4 L D (35.5-45.6) % Seg Neuts % (Manual) 99.0 H (40.0-70.0) % Lymphocytes % (Manual) 1.0 L (13.4-35.0) % Seg Neutrophils # Man 11.7 H (1.8-7.7) K/mm3 Lymphocytes # (Manual) 0.1 L (1.2-5.4) K/mm3 POC ABG pH (7.35-7.45) POC ABG pO2 (80-105) Carbon Dioxide 19 L (22-30) mmol/L Glucose 223 H (75-100) mg/dL POC Glucose (70-105) Calcium 6.6 L D (8.4-10.2) mg/dL AST 1240 H (5-40) units/L ALT 836 H (7-56) units/L Total Protein 4.9 L (6.3-8.2) g/dL Albumin 2.1 L (3.9-5) g/dL - Imaging and cardiology Chest x-ray: report reviewed, image reviewed (slight improvement, bilateral infiltrates)
[2018-06-20] MEDS: HumaLOG SUB-Q SCH ×2 (13:00→17:59)
--- NOTE | 2018-06-20 13:18 | Progress Note ---
Assessment and Plan Acute Hypoxemic Respiratory Failure on MVS AIDS / HIV positive Severe Sepsis due to Pneumonia Hyponatremia Severe metabolic acidosis Lower extremity DVT -VAP bundle addressed - Continue supplemental oxygen to keep sats > 90% -Wean PEEP and FIO2 as tolerated -ARDS net protocol with lung protective strategies - follow up tracheal aspirate cultures - continue bronchodilators with pulmonary -vasopressor support if indicated to keep MAP>65 - Bactrim, emiprically for PJP, continue steroids -Continue empiric and targeted anti-infective's per ID recs - Continue enteral nutrition -Aspiration precautions, HOB>40 -Accucheck and monitor for hypoglycemia -Target glucose of 140mg- 180mg/dL - monitor for drug-drug interaction - Daily SATs and SBT per protocol - Stress ulcer prophylaxis -Anticoagulation -critical care bundles addressed -muir catheter in this critically ill patient requiring strict intake and output monitor CONDITION: CRITICAL PROGNOSIS: GUARDED CODE STATUS: FULL CODE The high probability of a clinically significant, sudden or life-threatening deterioration of the [cardiac, respiratory] system(s) required my full and direct attention, intervention and personal management. The aggregate critical care time was [65] minutes without overlap. Time includes spent on; [x] Data Review and interpretation [x] Patient assessment and monitoring of vital signs [x] Documentation Subjective Date of service: 06/20/18 Interval history: Patient is seen today for: Acute Hypoxemic Respiratory Failure on MVS; AIDS / HIV positive; Severe Sepsis due to Pneumonia; Hyponatremia; Severe metabolic acidosis Seen and examined at bedside; 24hour events reviewed; nursing and respiratory care staff consulted; no adverse overnight events reported to me; fevers overnight; on fentanyl and versed; opens eyes on verbal and tactile stimulation; remains on MVS; no seizures reported; no emesis or overt aspiration Discussed on ICU-IDT rounds Objective - Exam Narrative Exam: VITAL SIGNS: Reviewed. Right IJ CVC GENERAL: will open eyes to verbal and tactile stimuli No patient-ventilator dyssynchrony HEAD: No signs of head trauma. EYES: Pupils are equal. Extraocular motions intact. EARS: Hearing grossly intact. MOUTH: ETT at 23cm NECK: No adenopathy, no JVD. CHEST: Tachypnea, with bilateral crackles.. CARDIAC: Tachycardia S1 and S2, without murmurs, gallops, or rubs. VASCULAR: No Edema. Peripheral pulses normal and equal in all extremities. ABDOMEN: Soft, without detectable tenderness. No sign of distention. No rebound or guarding, and no masses palpated. Bowel Sounds normal. MUSCULOSKELETAL: . Extremities without clubbing, cyanosis or edema. NEUROLOGIC EXAM: awake, orientation unable to assess. PSYCHIATRIC: Mood unable to assess SKIN: No rash or lesions. Vital Signs - 12hr 06/20/18 06/20/18 06/20/18 01:21 01:30 01:41 Temperature Pulse Rate 101 H 99 H 100 H Pulse Rate [ From Monitor] Respiratory 23 21 20 Rate Blood Pressure 92/62 102/62 102/62 O2 Sat by Pulse 95 92 94 Oximetry 06/20/18 06/20/18 06/20/18 01:51 02:00 02:11 Temperature Pulse Rate 100 H 110 H 102 H Pulse Rate [ From Monitor] Respiratory 20 24 25 H Rate Blood Pressure 102/69 104/67 104/67 O2 Sat by Pulse 94 90 95 Oximetry 06/20/18 06/20/18 06/20/18 02:21 02:30 02:41 Temperature Pulse Rate 102 H 102 H 100 H Pulse Rate [ From Monitor] Respiratory 22 24 20 Rate Blood Pressure 102/62 98/62 98/62 O2 Sat by Pulse 95 94 96 Oximetry 06/20/18 06/20/18 06/20/18 02:51 03:00 03:11 Temperature Pulse Rate 101 H 100 H 100 H Pulse Rate [ From Monitor] Respiratory 22 19 24 Rate Blood Pressure 105/60 105/70 105/70 O2 Sat by Pulse 96 95 97 Oximetry 06/20/18 06/20/18 06/20/18 03:21 03:31 03:41 Temperature Pulse Rate 100 H 100 H 99 H Pulse Rate [ From Monitor] Respiratory 22 22 25 H Rate Blood Pressure 107/65 108/63 108/63 O2 Sat by Pulse 97 95 98 Oximetry 06/20/18 06/20/18 06/20/18 03:51 04:00 04:01 Temperature 98.3 F Pulse Rate 100 H 98 H Pulse Rate [ 106 H From Monitor] Respiratory 24 23 Rate Blood Pressure 99/54 98/74 O2 Sat by Pulse 97 95 97 Oximetry 06/20/18 06/20/18 06/20/18 04:11 04:21 04:30 Temperature Pulse Rate 98 H 99 H 110 H Pulse Rate [ From Monitor] Respiratory 25 H 23 28 H Rate Blood Pressure 98/74 101/62 113/83 O2 Sat by Pulse 98 98 97 Oximetry 06/20/18 06/20/18 06/20/18 04:35 04:41 04:51 Temperature Pulse Rate 117 H 105 H 99 H Pulse Rate [ From Monitor] Respiratory 25 H 26 H Rate Blood Pressure 113/83 92/66 O2 Sat by Pulse 100 95 94 Oximetry 06/20/18 06/20/18 06/20/18 05:00 05:11 05:21 Temperature Pulse Rate 96 H 98 H 98 H Pulse Rate [ From Monitor] Respiratory 23 23 20 Rate Blood Pressure 105/62 105/62 108/57 O2 Sat by Pulse 92 95 94 Oximetry 06/20/18 06/20/18 06/20/18 05:31 05:41 05:51 Temperature Pulse Rate 96 H 96 H 112 H Pulse Rate [ From Monitor] Respiratory 21 17 24 Rate Blood Pressure 100/61 100/61 96/70 O2 Sat by Pulse 93 95 94 Oximetry 06/20/18 06/20/18 06/20/18 06:00 06:11 06:21 Temperature Pulse Rate 105 H 112 H 106 H Pulse Rate [ From Monitor] Respiratory 29 H 17 27 H Rate Blood Pressure 101/61 101/61 118/80 O2 Sat by Pulse 92 93 94 Oximetry 06/20/18 06/20/18 06/20/18 06:30 06:41 06:51 Temperature Pulse Rate 104 H 98 H 108 H Pulse Rate [ From Monitor] Respiratory 28 H 25 H 27 H Rate Blood Pressure 90/64 90/64 98/61 O2 Sat by Pulse 91 93 90 Oximetry 06/20/18 06/20/18 06/20/18 07:00 07:11 07:21 Temperature Pulse Rate 98 H 96 H 96 H Pulse Rate [ From Monitor] Respiratory 22 22 22 Rate Blood Pressure 103/52 103/52 102/58 O2 Sat by Pulse 91 92 90 Oximetry 06/20/18 06/20/18 06/20/18 07:30 07:37 07:41 Temperature Pulse Rate 94 H 96 H 96 H Pulse Rate [ From Monitor] Respiratory 22 18 Rate Blood Pressure 107/54 107/54 107/54 O2 Sat by Pulse 87 91 90 Oximetry 06/20/18 06/20/18 06/20/18 07:51 08:00 08:11 Temperature 98.9 F Pulse Rate 115 H 99 H 110 H Pulse Rate [ 99 H From Monitor] Respiratory 23 20 18 Rate Blood Pressure 105/54 103/62 103/62 O2 Sat by Pulse 92 87 90 Oximetry 06/20/18 06/20/18 06/20/18 08:21 08:30 08:41 Temperature Pulse Rate 105 H 103 H 100 H Pulse Rate [ From Monitor] Respiratory 22 21 21 Rate Blood Pressure 137/81 112/61 112/61 O2 Sat by Pulse 99 96 99 Oximetry 06/20/18 06/20/18 06/20/18 08:51 09:01 09:11 Temperature Pulse Rate 97 H 94 H 95 H Pulse Rate [ From Monitor] Respiratory 20 18 17 Rate Blood Pressure 109/63 122/53 122/53 O2 Sat by Pulse 99 97 99 Oximetry 06/20/18 06/20/18 06/20/18 09:21 09:30 09:41 Temperature Pulse Rate 94 H 93 H 94 H Pulse Rate [ From Monitor] Respiratory 21 18 19 Rate Blood Pressure 99/60 103/61 103/61 O2 Sat by Pulse 99 95 98 Oximetry 06/20/18 06/20/18 06/20/18 09:51 10:00 10:11 Temperature Pulse Rate 93 H 110 H 106 H Pulse Rate [ From Monitor] Respiratory 19 24 22 Rate Blood Pressure 99/52 95/62 95/62 O2 Sat by Pulse 98 100 94 Oximetry 06/20/18 06/20/18 06/20/18 10:21 10:30 10:41 Temperature Pulse Rate 110 H 104 H 115 H Pulse Rate [ From Monitor] Respiratory 22 21 24 Rate Blood Pressure 109/67 117/62 117/62 O2 Sat by Pulse 95 93 95 Oximetry 06/20/18 06/20/18 06/20/18 10:51 11:00 11:11 Temperature Pulse Rate 105 H 99 H 97 H Pulse Rate [ From Monitor] Respiratory 27 H 24 24 Rate Blood Pressure 93/63 100/55 100/55 O2 Sat by Pulse 96 94 97 Oximetry 06/20/18 06/20/18 06/20/18 11:21 11:30 11:41 Temperature Pulse Rate 95 H 90 108 H Pulse Rate [ From Monitor] Respiratory 21 20 20 Rate Blood Pressure 109/54 99/56 99/56 O2 Sat by Pulse 97 95 97 Oximetry 06/20/18 06/20/18 06/20/18 11:51 12:00 12:01 Temperature 98.6 F Pulse Rate 104 H 99 H 98 H Pulse Rate [ 98 H From Monitor] Respiratory 26 H 26 H 26 H Rate Blood Pressure 113/64 106/55 103/57 O2 Sat by Pulse 97 96 94 Oximetry 06/20/18 12:11 Temperature Pulse Rate 96 H Pulse Rate [ From Monitor] Respiratory 22 Rate Blood Pressure 113/64 O2 Sat by Pulse 96 Oximetry CBC and BMP: 06/25/18 11:40 06/25/18 11:40 ABG, PT/INR, D-dimer: ABG POC ABG pH 7.249 (7.35-7.45) L 06/20/18 04:33 POC ABG pCO2 41.9 (35-45) 06/20/18 04:33 POC ABG pO2 118 (80-105) H 06/20/18 04:33 POC ABG HCO3 18.3 06/20/18 04:33 POC ABG Total CO2 20 06/20/18 04:33 POC ABG O2 Sat 98 06/20/18 04:33 PT/INR, D-dimer PT 15.9 Sec. (12.2-14.9) H 06/19/18 Unknown INR 1.19 (0.87-1.13) H 06/19/18 Unknown D-Dimer 8449.09 ng/mlDDU (0-234) H 06/19/18 Unknown Abnormal lab findings: Abnormal Labs 06/19/18 06/19/18 06/19/18 03:31 07:42 08:07 WBC RBC Hgb Hct Seg Neuts % (Manual) Lymphocytes % (Manual) Seg Neutrophils # Man Lymphocytes # (Manual) PT INR D-Dimer POC ABG pH 6.974 L POC ABG pCO2 22.0 L 83.4 H POC ABG pO2 28 L 122 H Sodium Chloride Carbon Dioxide Creatinine Glucose POC Glucose Calcium AST ALT Total Protein Albumin Ur Specific [place] 1.060 H Urine WBC (Auto) 8.0 H 06/19/18 06/19/18 06/19/18 08:16 09:49 11:15 WBC RBC Hgb Hct Seg Neuts % (Manual) Lymphocytes % (Manual) Seg Neutrophils # Man Lymphocytes # (Manual) PT INR D-Dimer POC ABG pH 6.996 L 7.198 L 7.206 L POC ABG pCO2 82.4 H POC ABG pO2 75 L Sodium Chloride Carbon Dioxide Creatinine Glucose POC Glucose Calcium AST ALT Total Protein Albumin Ur Specific [place] Urine WBC (Auto) 06/19/18 06/19/18 06/19/18 18:54 Unknown Unknown WBC 12.9 H RBC Hgb Hct Seg Neuts % (Manual) Lymphocytes % (Manual) 5.0 L Seg Neutrophils # Man Lymphocytes # (Manual) 0.6 L PT 15.9 H INR 1.19 H D-Dimer 8449.09 H POC ABG pH POC ABG pCO2 POC ABG pO2 Sodium Chloride Carbon Dioxide Creatinine Glucose POC Glucose 196 H Calcium AST ALT Total Protein Albumin Ur Specific [place] Urine WBC (Auto) 06/19/18 06/19/18 06/20/18 Unknown Unknown 04:33 WBC RBC Hgb Hct Seg Neuts % (Manual) Lymphocytes % (Manual) Seg Neutrophils # Man Lymphocytes # (Manual) PT INR D-Dimer POC ABG pH 7.249 L POC ABG pCO2 POC ABG pO2 118 H Sodium 129 L Chloride 90.7 L Carbon Dioxide 17 L Creatinine 0.6 L Glucose 199 H POC Glucose Calcium 8.1 L AST 53 H ALT Total Protein 6.0 L Albumin 2.8 L Ur Specific [place] Urine WBC (Auto) 06/20/18 06/20/18 06/20/18 08:13 08:13 12:59 WBC 11.8 H RBC 3.25 L Hgb 9.8 L D Hct 30.4 L D Seg Neuts % (Manual) 99.0 H Lymphocytes % (Manual) 1.0 L Seg Neutrophils # Man 11.7 H Lymphocytes # (Manual) 0.1 L PT INR D-Dimer POC ABG pH POC ABG pCO2 POC ABG pO2 Sodium Chloride Carbon Dioxide 19 L Creatinine Glucose 223 H POC Glucose 174 H Calcium 6.6 L D AST 1240 H ALT 836 H Total Protein 4.9 L Albumin 2.1 L Ur Specific [place] Urine WBC (Auto) Chest x-ray: image reviewed (Bilateral alveolar infiltrates, ETT and RIJ in good position)
--- NOTE | 2018-06-20 18:00 | Progress Note ---
Assessment and Plan Assessment and plan: 32-year-old man with hypertension comes emergency room with complaints of shortness of breath, cough for 3days. He was found to have extensive bilateral pneumonia, placed on BiPAP but he failed. The patient had to be intubated. , ROS unobtainable. Altered bedside stated that the patient has very depressed since March, his at that time. He has been eating very little Acute respiratory failure with hypoxia requiring full mechanical ventilatory support Sepsis secondary to bilateral pneumonia Excessive bilateral pneumonia HIV Hyponatremia Severe metabolic acidosis Plan of care Continue full ventilatory support as directed by receiving tank operator Continue antibiotics as recommended by ID VAP precautions agree with continuation of Tamiflu till flu PCR is also noted. Awaiting family to assist with patient's medical history and any home medications DVT and GI prophylaxis Case discussed with nursing staff. The high probability of a clinically significant, sudden or life threatening deterioration of the [Pulmonary] system(s) required my full and direct attention, intervention and personal management. The aggregate critical care time was [35] minutes. This time is in addition to time spent performing reported procedures but includes the following: [x] Data Review and interpretation [x] Patient assessment and monitoring of vital signs [x] Documentation [x] Medication orders and management History Interval history: Patient seen and examined grimace a full ventilatory support although awakens on verbal commands. Hospitalist Physical - Physical exam Narrative exam: VITAL SIGNS: Reviewed. GENERAL: The patient appeared well nourished and normally developed. Full mechanical ventilation Vital signs as documented. HEAD: No signs of head trauma. EYES: Pupils are equal. Extraocular motions intact. EARS: Hearing grossly intact. MOUTH: ETT NECK: No adenopathy, no JVD. CHEST: Chest with clear breath sounds bilaterally. No wheezes, rales, or rhonchi. CARDIAC: Regular rate and rhythm. S1 and S2, without murmurs, gallops, or rubs. VASCULAR: No Edema. Peripheral pulses normal and equal in all extremities. ABDOMEN: Soft, without detectable tenderness. No sign of distention. No rebound or guarding, and no masses palpated. Bowel Sounds normal. MUSCULOSKELETAL: Good range of motion of all major joints. Extremities without clubbing, cyanosis or edema. NEUROLOGIC EXAM: awake, orientation unable to assess. No focal sensory or strength deficits. Speech normal. Follows commands. PSYCHIATRIC: Mood normal. SKIN: No rash or lesions. - Constitutional Vitals: Temp Pulse Resp BP Pulse Ox 99.7 F H 113 H 31 H 118/64 95 06/20/18 16:00 06/20/18 16:50 06/20/18 16:50 06/20/18 16:50 06/20/18 16:50 Results - Labs CBC & Chem 7: 06/21/18 04:19 06/21/18 04:19 Labs: Laboratory Last Values WBC 11.8 K/mm3 (4.5-11.0) H 06/20/18 08:13 RBC 3.25 M/mm3 (3.65-5.03) L 06/20/18 08:13 Hgb 9.8 gm/dl (11.8-15.2) L D 06/20/18 08:13 Hct 30.4 % (35.5-45.6) L D 06/20/18 08:13 MCV 94 fl (84-94) 06/20/18 08:13 MCH 30 pg (28-32) 06/20/18 08:13 MCHC 32 % (32-34) 06/20/18 08:13 RDW 14.5 % (13.2-15.2) 06/20/18 08:13 Plt Count 252 K/mm3 (140-440) 06/20/18 08:13 Add Manual Diff Complete 06/20/18 08:13 Total Counted 100 06/20/18 08:13 Seg Neutrophils % Stock Holder 06/20/18 08:13 Seg Neuts % (Manual) 99.0 % (40.0-70.0) H 06/20/18 08:13 Band Neutrophils % 0 % 06/20/18 08:13 Lymphocytes % (Manual) 1.0 % (13.4-35.0) L 06/20/18 08:13 Reactive Lymphs % (Man) 0 % 06/20/18 08:13 Monocytes % (Manual) 0 % (0.0-7.3) 06/20/18 08:13 Eosinophils % (Manual) 0 % (0.0-4.3) 06/20/18 08:13 Basophils % (Manual) 0 % (0.0-1.8) 06/20/18 08:13 Metamyelocytes % 0 % 06/20/18 08:13 Myelocytes % 0 % 06/20/18 08:13 Promyelocytes % 0 % 06/20/18 08:13 Blast Cells % 0 % 06/20/18 08:13 Nucleated RBC % Not Reportable 06/20/18 08:13 Seg Neutrophils # Man 11.7 K/mm3 (1.8-7.7) H 06/20/18 08:13 Band Neutrophils # 0.0 K/mm3 06/20/18 08:13 Lymphocytes # (Manual) 0.1 K/mm3 (1.2-5.4) L 06/20/18 08:13 Abs React Lymphs (Man) 0.0 K/mm3 06/20/18 08:13 Monocytes # (Manual) 0.0 K/mm3 (0.0-0.8) 06/20/18 08:13 Eosinophils # (Manual) 0.0 K/mm3 (0.0-0.4) 06/20/18 08:13 Basophils # (Manual) 0.0 K/mm3 (0.0-0.1) 06/20/18 08:13 Metamyelocytes # 0.0 K/mm3 06/20/18 08:13 Myelocytes # 0.0 K/mm3 06/20/18 08:13 Promyelocytes # 0.0 K/mm3 06/20/18 08:13 Blast Cells # 0.0 K/mm3 06/20/18 08:13 WBC Morphology Not Reportable 06/20/18 08:13 Hypersegmented Neuts Not Reportable 06/20/18 08:13 Hyposegmented Neuts Not Reportable 06/20/18 08:13 Hypogranular Neuts Not Reportable 06/20/18 08:13 Smudge Cells Not Reportable 06/20/18 08:13 Toxic Granulation Not Reportable 06/20/18 08:13 Toxic Vacuolation Not Reportable 06/20/18 08:13 Dohle Bodies Not Reportable 06/20/18 08:13 Pelger-Huet Anomaly Not Reportable 06/20/18 08:13 Loretta Rods Not Reportable 06/20/18 08:13 Platelet Estimate Consistent w auto 06/20/18 08:13 Clumped Platelets Not Reportable 06/20/18 08:13 Plt Clumps, EDTA Not Reportable 06/20/18 08:13 Large Platelets Not Reportable 06/20/18 08:13 Giant Platelets Not Reportable 06/20/18 08:13 Platelet Satelliting Not Reportable 06/20/18 08:13 Plt Morphology Comment Not Reportable 06/20/18 08:13 RBC Morphology Not Reportable 06/20/18 08:13 Dimorphic RBCs Not Reportable 06/20/18 08:13 Polychromasia Not Reportable 06/20/18 08:13 Hypochromasia Not Reportable 06/20/18 08:13 Poikilocytosis 1+ 06/20/18 08:13 Anisocytosis 1+ 06/20/18 08:13 Microcytosis Not Reportable 06/20/18 08:13 Macrocytosis Not Reportable 06/20/18 08:13 Spherocytes Not Reportable 06/20/18 08:13 Pappenheimer Bodies Not Reportable 06/20/18 08:13 Sickle Cells Not Reportable 06/20/18 08:13 Target Cells Not Reportable 06/20/18 08:13 Tear Drop Cells Not Reportable 06/20/18 08:13 Ovalocytes 1+ 06/20/18 08:13 Helmet Cells Not Reportable 06/20/18 08:13 Flores-Akins Bodies Not Reportable 06/20/18 08:13 [place] Rings Not Reportable 06/20/18 08:13 [place] Cells Not Reportable 06/20/18 08:13 Bite Cells Not Reportable 06/20/18 08:13 Crenated Cell Not Reportable 06/20/18 08:13 Elliptocytes Not Reportable 06/20/18 08:13 Acanthocytes (Spur) Not Reportable 06/20/18 08:13 Rouleaux Not Reportable 06/20/18 08:13 Hemoglobin C Crystals Not Reportable 06/20/18 08:13 Schistocytes Not Reportable 06/20/18 08:13 Malaria parasites Not Reportable 06/20/18 08:13 Jesus Bodies Not Reportable 06/20/18 08:13 Hem Pathologist Commnt No 06/20/18 08:13 PT 15.9 Sec. (12.2-14.9) H 06/19/18 Unknown INR 1.19 (0.87-1.13) H 06/19/18 Unknown APTT 28.7 Sec. (24.2-36.6) 06/19/18 Unknown D-Dimer 8449.09 ng/mlDDU (0-234) H 06/19/18 Unknown POC ABG pH 7.249 (7.35-7.45) L 06/20/18 04:33 POC ABG pCO2 41.9 (35-45) 06/20/18 04:33 POC ABG pO2 118 (80-105) H 06/20/18 04:33 POC ABG HCO3 18.3 06/20/18 04:33 POC ABG Total CO2 20 06/20/18 04:33 POC ABG O2 Sat 98 06/20/18 04:33 POC ABG Base Excess -9 06/20/18 04:33 FiO2 70 % 06/20/18 04:33 Sodium 137 mmol/L (137-145) D 06/20/18 08:13 Potassium 5.0 mmol/L (3.6-5.0) D 06/20/18 08:13 Chloride 104.8 mmol/L (98-107) 06/20/18 08:13 Carbon Dioxide 19 mmol/L (22-30) L 06/20/18 08:13 Anion Gap 18 mmol/L 06/20/18 08:13 BUN 15 mg/dL (9-20) 06/20/18 08:13 Creatinine 0.8 mg/dL (0.8-1.5) 06/20/18 08:13 Estimated GFR > 60 ml/min 06/20/18 08:13 BUN/Creatinine Ratio 19 % 06/20/18 08:13 Glucose 223 mg/dL (75-100) H 06/20/18 08:13 POC Glucose 174 (70-105) H 06/20/18 12:59 Lactic Acid 1.70 mmol/L (0.7-2.0) 06/19/18 05:26 Calcium 6.6 mg/dL (8.4-10.2) L D 06/20/18 08:13 Total Bilirubin 0.20 mg/dL (0.1-1.2) 06/20/18 08:13 Direct Bilirubin < 0.2 mg/dL (0-0.2) 06/19/18 Unknown Indirect Bilirubin 0.2 mg/dL 06/19/18 Unknown AST 1240 units/L (5-40) H 06/20/18 08:13 ALT 836 units/L (7-56) H 06/20/18 08:13 Alkaline Phosphatase 90 units/L (35-129) 06/20/18 08:13 Troponin T < 0.010 ng/mL (0.00-0.029) 06/19/18 Unknown NT-Pro-B Natriuret Pep 226.4 pg/mL (0-450) 06/19/18 Unknown Total Protein 4.9 g/dL (6.3-8.2) L 06/20/18 08:13 Albumin 2.1 g/dL (3.9-5) L 06/20/18 08:13 Albumin/Globulin Ratio 0.8 % 06/20/18 08:13 Urine Color Yellow (Yellow) 06/19/18 08:07 Urine Turbidity Clear (Clear) 06/19/18 08:07 Urine pH 5.0 (5.0-7.0) 06/19/18 08:07 Ur Specific [place] 1.060 (1.003-1.030) H 06/19/18 08:07 Urine Protein 100 mg/dl mg/dL (Negative) 06/19/18 08:07 Urine Glucose (UA) Neg mg/dL (Negative) 06/19/18 08:07 Urine Ketones Neg mg/dL (Negative) 06/19/18 08:07 Urine Blood Sm (Negative) 06/19/18 08:07 Urine Nitrite Neg (Negative) 06/19/18 08:07 Urine Bilirubin Neg (Negative) 06/19/18 08:07 Urine Urobilinogen < 2.0 mg/dL (<2.0) 06/19/18 08:07 Ur Leukocyte Esterase Neg (Negative) 06/19/18 08:07 Urine WBC (Auto) 8.0 /HPF (0.0-6.0) H 06/19/18 08:07 Urine RBC (Auto) 35.0 /HPF (0.0-6.0) 06/19/18 08:07 U Epithel Cells (Auto) < 1.0 /HPF (0-13.0) 06/19/18 08:07 Urine Mucus Few /HPF 06/19/18 08:07 Urine Opiates Screen Presumptive negative 06/19/18 08:06 Urine Methadone Screen Presumptive negative 06/19/18 08:06 Ur Barbiturates Screen Presumptive negative 06/19/18 08:06 Ur Phencyclidine Scrn Presumptive negative 06/19/18 08:06 Ur Amphetamines Screen Presumptive negative 06/19/18 08:06 U Benzodiazepines Scrn Presumptive positive 06/19/18 08:06 Urine Cocaine Screen Presumptive negative 06/19/18 08:06 U Marijuana (THC) Screen Presumptive negative 06/19/18 08:06 Drugs of Abuse Note Disclamer 06/19/18 08:06 HIV 1&2 Antibody Rapid Reactive (Non React) 06/19/18 07:10 HIV P24 Antigen Invalid (Non React) 06/19/18 07:10 Influenza A (Rapid) Negative (Negative) 06/19/18 Unknown Influenza B (Rapid) Negative (Negative) 06/19/18 Unknown Nutrition/Malnutrition Assess - Dietary Evaluation Nutrition/Malnutrition Findings: Nutrition Notes Start: 06/19/18 14:17 Freq: Status: Active Protocol: Document 06/19/18 14:17 CT (Rec: 06/19/18 15:42 CT [id number]) Co-Sign 06/19/18 14:17 LP Nutrition Notes Need for Assessment generated from: MD Order Initial or Follow up Assessment Current Diagnosis Hypertension Other Pertinent Diagnosis SOB, bilateral pneumonia Current Diet none Labs/Tests Na: 129 Cr: 0.6 B Pertinent Medications Reviewed Height 5 ft 9 in Weight 77.2 kg [place] Body Weight (kg) 72.72 BMI 25.1 Weight Status Overweight Subjective/Other Information RD consulted for TF. Burn Absent Trauma Absent #1 Nutrition Diagnosis Inadequate oral intake Etiology mech vent As Evidenced by Signs and Symptoms inability to meet nutrient needs through PO intake, pt. requires enteral nutrition support to meet nutrient needs . Is patient on ventilator? Yes Is Patient Ambulatory and/or Out of Bed No REE-(Beatty-St. Jeor-confined to bed) 4646.131 Calculation [facility] Additional Notes PRO: 93 - 154g PRO (1.2 - 2g KG ABW) fluid: 1 ml/kcal Nutrition Intervention Change Diet Order: TF Nutrition Support: Osmolite 1.5 at 60mL/hr with 175mL flush q4h Kcal 2,169 Protein (gm) 90 Fluid (mL) 1,097 Goal #1 TF tolerance Goal #2 TF to meet at least 80% of energy/protein needs. Anticipated Discharge Needs: Unable to determine at this time Follow-Up By: 06/21/18 Additional Comments F/U: TF tolerance, TF at goal rate
[2018-06-20] MEDS: MIDAZOLAM 100 MG in NACL 0.9% 80 ML IV SCH (18:31)
[2018-06-20] MEDS: PEPCID IV SCH (22:12)
[2018-06-21] MEDS: HumaLOG SUB-Q SCH ×4 (00:20→18:05)
[2018-06-21] MEDS: D5W IV SCH ×4 (00:21→18:53)
[2018-06-21] MEDS: BACTRIM IV SCH ×4 (00:21→18:53)
[2018-06-21] MEDS: SUBLIMAZE IV PRN (02:05)
[2018-06-21] MEDS: fentaNYL DRIP Premix 2,000 MCG/100 ML BAG IV SCH ×3 (02:09→20:21)
--- NOTE | 2018-06-21 02:39 | XRay Report ---
FINAL REPORT PROCEDURE: XR CHEST 1V AP TECHNIQUE: Chest radiograph anteroposterior view. CPT 60216 HISTORY: follow up respiratory failure COMPARISON: 06/20/2018 FINDINGS: Heart: Normal. Mediastinum/Vessels: Normal. Lungs/Pleural space: There is mild bilateral perihilar pulmonary edema. There is no pleural effusion or pneumothorax.. Bony thorax: No acute osseous abnormality. Life support devices: ET tube is in the proximal trachea. NG tube is in the stomach. Right internal j ugular vein central venous catheter tip is in the superior vena cava.. IMPRESSION: The heart size is normal. There is mild bilateral perihilar pulmonary edema. There is no pleural effusion or pneumothorax.. ET tube is in the proximal trachea. NG tube is in the stomach. Right internal jugular vein central ve nous catheter tip is in the superior vena cava..
[2018-06-21 04:58] LABS: Hemoglobin 9.2 gm/dl (11.8-15.2); Mean Corpuscular HGB Conc 33 % (32-34); Mean Corpuscular Volume 93 fl (84-94); Platelet Count 250 K/mm3 (140-440); Red Blood Count 3.02 M/mm3 (3.65-5.03); Red Cell Distribution Width 14.7 % (13.2-15.2)
[2018-06-21 05:22] LABS: Alanine Aminotransferase 622 units/L (7-56); Albumin 2.4 g/dL (3.9-5); BUN/Creatinine Ratio 23; Blood Urea Nitrogen 16 mg/dL (9-20); Calcium 7.2 mg/dL (8.4-10.2); Hemolysis Index 5
[2018-06-21 05:32] LABS: Hepatitis B Surface Antigen Non-Reactive (Negative); Hepatitis C Virus Antibody Non-Reactive (NonReactive)
[2018-06-21] MEDS: ZOSYN/NS 4.5GM/100ML 4.5 GM/100 ML VIAL IV SCH (05:33)
--- NOTE | 2018-06-21 07:40 | Progress Note ---
Assessment and Plan Assessment and plan: 32-year-old man with hypertension comes emergency room with complaints of shortness of breath, cough for 3days. He was found to have extensive bilateral pneumonia, placed on BiPAP but he failed. The patient had to be intubated. , ROS unobtainable. Altered bedside stated that the patient has very depressed since March, his at that time. He has been eating very little Acute respiratory failure with hypoxia requiring full mechanical ventilatory support Sepsis secondary to bilateral pneumonia Excessive bilateral pneumonia HIV Hyponatremia Severe metabolic acidosis shock liver-Improving Plan of care Continue full ventilatory support as directed by bottle capping machine operator Continue antibiotics as recommended by ID VAP precautions agree with continuation of Tamiflu till flu PCR is also noted. Awaiting family to assist with patient's medical history and any home medications DVT and GI prophylaxis Case discussed with nursing staff. No family present The high probability of a clinically significant, sudden or life threatening deterioration of the [Pulmonary] system(s) required my full and direct attention, intervention and personal management. The aggregate critical care time was [35] minutes. This time is in addition to time spent performing reported procedures but includes the following: [x] Data Review and interpretation [x] Patient assessment and monitoring of vital signs [x] Documentation [x] Medication orders and management History Interval history: Patient seen and examined grimace a full ventilatory support although awakens on verbal commands. Hospitalist Physical - Physical exam Narrative exam: VITAL SIGNS: Reviewed. GENERAL: The patient appeared well nourished and normally developed. Full mechanical ventilation Vital signs as documented. HEAD: No signs of head trauma. EYES: Pupils are equal. Extraocular motions intact. EARS: Hearing grossly intact. MOUTH: ETT NECK: No adenopathy, no JVD. CHEST: Chest with clear breath sounds bilaterally. No wheezes, rales, or rhonchi. CARDIAC: Regular rate and rhythm. S1 and S2, without murmurs, gallops, or rubs. VASCULAR: No Edema. Peripheral pulses normal and equal in all extremities. ABDOMEN: Soft, without detectable tenderness. No sign of distention. No rebound or guarding, and no masses palpated. Bowel Sounds normal. MUSCULOSKELETAL: Good range of motion of all major joints. Extremities without clubbing, cyanosis or edema. NEUROLOGIC EXAM: awake, orientation unable to assess. No focal sensory or strength deficits. Speech normal. Follows commands. PSYCHIATRIC: Mood normal. SKIN: No rash or lesions. - Constitutional Vitals: Temp Pulse Resp BP Pulse Ox 98.7 F 79 20 108/70 94 06/21/18 04:00 06/21/18 06:20 06/21/18 06:20 06/21/18 06:20 06/21/18 06:20 Results - Labs CBC & Chem 7: 06/22/18 04:47 06/22/18 04:47 Labs: Laboratory Last Values WBC 13.8 K/mm3 (4.5-11.0) H 06/21/18 04:19 RBC 3.02 M/mm3 (3.65-5.03) L 06/21/18 04:19 Hgb 9.2 gm/dl (11.8-15.2) L 06/21/18 04:19 Hct 28.0 % (35.5-45.6) L 06/21/18 04:19 MCV 93 fl (84-94) 06/21/18 04:19 MCH 31 pg (28-32) 06/21/18 04:19 MCHC 33 % (32-34) 06/21/18 04:19 RDW 14.7 % (13.2-15.2) 06/21/18 04:19 Plt Count 250 K/mm3 (140-440) 06/21/18 04:19 Add Manual Diff Complete 06/20/18 08:13 Total Counted 100 06/20/18 08:13 Seg Neutrophils % Altitude Chamber Technician 06/20/18 08:13 Seg Neuts % (Manual) 99.0 % (40.0-70.0) H 06/20/18 08:13 Band Neutrophils % 0 % 06/20/18 08:13 Lymphocytes % (Manual) 1.0 % (13.4-35.0) L 06/20/18 08:13 Reactive Lymphs % (Man) 0 % 06/20/18 08:13 Monocytes % (Manual) 0 % (0.0-7.3) 06/20/18 08:13 Eosinophils % (Manual) 0 % (0.0-4.3) 06/20/18 08:13 Basophils % (Manual) 0 % (0.0-1.8) 06/20/18 08:13 Metamyelocytes % 0 % 06/20/18 08:13 Myelocytes % 0 % 06/20/18 08:13 Promyelocytes % 0 % 06/20/18 08:13 Blast Cells % 0 % 06/20/18 08:13 Nucleated RBC % Not Reportable 06/20/18 08:13 Seg Neutrophils # Man 11.7 K/mm3 (1.8-7.7) H 06/20/18 08:13 Band Neutrophils # 0.0 K/mm3 06/20/18 08:13 Lymphocytes # (Manual) 0.1 K/mm3 (1.2-5.4) L 06/20/18 08:13 Abs React Lymphs (Man) 0.0 K/mm3 06/20/18 08:13 Monocytes # (Manual) 0.0 K/mm3 (0.0-0.8) 06/20/18 08:13 Eosinophils # (Manual) 0.0 K/mm3 (0.0-0.4) 06/20/18 08:13 Basophils # (Manual) 0.0 K/mm3 (0.0-0.1) 06/20/18 08:13 Metamyelocytes # 0.0 K/mm3 06/20/18 08:13 Myelocytes # 0.0 K/mm3 06/20/18 08:13 Promyelocytes # 0.0 K/mm3 06/20/18 08:13 Blast Cells # 0.0 K/mm3 06/20/18 08:13 WBC Morphology Not Reportable 06/20/18 08:13 Hypersegmented Neuts Not Reportable 06/20/18 08:13 Hyposegmented Neuts Not Reportable 06/20/18 08:13 Hypogranular Neuts Not Reportable 06/20/18 08:13 Smudge Cells Not Reportable 06/20/18 08:13 Toxic Granulation Not Reportable 06/20/18 08:13 Toxic Vacuolation Not Reportable 06/20/18 08:13 Dohle Bodies Not Reportable 06/20/18 08:13 Pelger-Huet Anomaly Not Reportable 06/20/18 08:13 Loretta Rods Not Reportable 06/20/18 08:13 Platelet Estimate Consistent w auto 06/20/18 08:13 Clumped Platelets Not Reportable 06/20/18 08:13 Plt Clumps, EDTA Not Reportable 06/20/18 08:13 Large Platelets Not Reportable 06/20/18 08:13 Giant Platelets Not Reportable 06/20/18 08:13 Platelet Satelliting Not Reportable 06/20/18 08:13 Plt Morphology Comment Not Reportable 06/20/18 08:13 RBC Morphology Not Reportable 06/20/18 08:13 Dimorphic RBCs Not Reportable 06/20/18 08:13 Polychromasia Not Reportable 06/20/18 08:13 Hypochromasia Not Reportable 06/20/18 08:13 Poikilocytosis 1+ 06/20/18 08:13 Anisocytosis 1+ 06/20/18 08:13 Microcytosis Not Reportable 06/20/18 08:13 Macrocytosis Not Reportable 06/20/18 08:13 Spherocytes Not Reportable 06/20/18 08:13 Pappenheimer Bodies Not Reportable 06/20/18 08:13 Sickle Cells Not Reportable 06/20/18 08:13 Target Cells Not Reportable 06/20/18 08:13 Tear Drop Cells Not Reportable 06/20/18 08:13 Ovalocytes 1+ 06/20/18 08:13 Helmet Cells Not Reportable 06/20/18 08:13 [place] Bodies Not Reportable 06/20/18 08:13 Al[place]aster Rings Not Reportable 06/20/18 08:13 [place] Cells Not Reportable 06/20/18 08:13 Bite Cells Not Reportable 06/20/18 08:13 Crenated Cell Not Reportable 06/20/18 08:13 Elliptocytes Not Reportable 06/20/18 08:13 Acanthocytes (Spur) Not Reportable 06/20/18 08:13 Rouleaux Not Reportable 06/20/18 08:13 Hemoglobin C Crystals Not Reportable 06/20/18 08:13 Schistocytes Not Reportable 06/20/18 08:13 Malaria parasites Not Reportable 06/20/18 08:13 Jesus Bodies Not Reportable 06/20/18 08:13 Hem Pathologist Commnt No 06/20/18 08:13 PT 15.9 Sec. (12.2-14.9) H 06/19/18 Unknown INR 1.19 (0.87-1.13) H 06/19/18 Unknown APTT 28.7 Sec. (24.2-36.6) 06/19/18 Unknown D-Dimer 8449.09 ng/mlDDU (0-234) H 06/19/18 Unknown POC ABG pH 7.309 (7.35-7.45) L 06/21/18 04:08 POC ABG pCO2 42.3 (35-45) 06/21/18 04:08 POC ABG pO2 87 (80-105) 06/21/18 04:08 POC ABG HCO3 21.2 06/21/18 04:08 POC ABG Total CO2 22 06/21/18 04:08 POC ABG O2 Sat 96 06/21/18 04:08 POC ABG Base Excess -5 06/21/18 04:08 FiO2 55 % 06/21/18 04:08 Sodium 135 mmol/L (137-145) L 06/21/18 04:19 Potassium 4.3 mmol/L (3.6-5.0) 06/21/18 04:19 Chloride 103.0 mmol/L (98-107) 06/21/18 04:19 Carbon Dioxide 21 mmol/L (22-30) L 06/21/18 04:19 Anion Gap 15 mmol/L 06/21/18 04:19 BUN 16 mg/dL (9-20) 06/21/18 04:19 Creatinine 0.7 mg/dL (0.8-1.5) L 06/21/18 04:19 Estimated GFR > 60 ml/min 06/21/18 04:19 BUN/Creatinine Ratio 23 % 06/21/18 04:19 Glucose 161 mg/dL (75-100) H 06/21/18 04:19 POC Glucose 187 (70-105) H 06/21/18 05:27 Lactic Acid 1.70 mmol/L (0.7-2.0) 06/19/18 05:26 Calcium 7.2 mg/dL (8.4-10.2) L 06/21/18 04:19 Total Bilirubin < 0.20 mg/dL (0.1-1.2) 06/21/18 04:19 Direct Bilirubin < 0.2 mg/dL (0-0.2) 06/19/18 Unknown Indirect Bilirubin 0.2 mg/dL 06/19/18 Unknown AST 390 units/L (5-40) H 06/21/18 04:19 ALT 622 units/L (7-56) H 06/21/18 04:19 Alkaline Phosphatase 103 units/L (35-129) 06/21/18 04:19 Troponin T < 0.010 ng/mL (0.00-0.029) 06/19/18 Unknown NT-Pro-B Natriuret Pep 226.4 pg/mL (0-450) 06/19/18 Unknown Total Protein 5.3 g/dL (6.3-8.2) L 06/21/18 04:19 Albumin 2.4 g/dL (3.9-5) L 06/21/18 04:19 Albumin/Globulin Ratio 0.8 % 06/21/18 04:19 Urine Color Yellow (Yellow) 06/19/18 08:07 Urine Turbidity Clear (Clear) 06/19/18 08:07 Urine pH 5.0 (5.0-7.0) 06/19/18 08:07 Ur Specific [place] 1.060 (1.003-1.030) H 06/19/18 08:07 Urine Protein 100 mg/dl mg/dL (Negative) 06/19/18 08:07 Urine Glucose (UA) Neg mg/dL (Negative) 06/19/18 08:07 Urine Ketones Neg mg/dL (Negative) 06/19/18 08:07 Urine Blood Sm (Negative) 06/19/18 08:07 Urine Nitrite Neg (Negative) 06/19/18 08:07 Urine Bilirubin Neg (Negative) 06/19/18 08:07 Urine Urobilinogen < 2.0 mg/dL (<2.0) 06/19/18 08:07 Ur Leukocyte Esterase Neg (Negative) 06/19/18 08:07 Urine WBC (Auto) 8.0 /HPF (0.0-6.0) H 06/19/18 08:07 Urine RBC (Auto) 35.0 /HPF (0.0-6.0) 06/19/18 08:07 U Epithel Cells (Auto) < 1.0 /HPF (0-13.0) 06/19/18 08:07 Urine Mucus Few /HPF 06/19/18 08:07 Urine Opiates Screen Presumptive negative 06/19/18 08:06 Urine Methadone Screen Presumptive negative 06/19/18 08:06 Ur Barbiturates Screen Presumptive negative 06/19/18 08:06 Ur Phencyclidine Scrn Presumptive negative 06/19/18 08:06 Ur Amphetamines Screen Presumptive negative 06/19/18 08:06 U Benzodiazepines Scrn Presumptive positive 06/19/18 08:06 Urine Cocaine Screen Presumptive negative 06/19/18 08:06 U Marijuana (THC) Screen Presumptive negative 06/19/18 08:06 Drugs of Abuse Note Disclamer 06/19/18 08:06 Hepatitis A IgM Ab Non-reactive (NonReactive) 06/21/18 04:19 Hep Bs Antigen Non-reactive (Negative) 06/21/18 04:19 Hep B Core IgM Ab Non-reactive (NonReactive) 06/21/18 04:19 Hepatitis C Antibody Non-reactive (NonReactive) 06/21/18 04:19 HIV 1&2 Antibody Rapid Reactive (Non React) 06/19/18 07:10 HIV P24 Antigen Invalid (Non React) 06/19/18 07:10 Influenza A (Rapid) Negative (Negative) 06/19/18 Unknown Influenza B (Rapid) Negative (Negative) 06/19/18 Unknown Nutrition/Malnutrition Assess - Dietary Evaluation Nutrition/Malnutrition Findings: Nutrition Notes Start: 06/19/18 14:17 Freq: Status: Active Protocol: Document 06/19/18 14:17 CT (Rec: 06/19/18 15:42 CT [id number]) Co-Sign 06/19/18 14:17 LP Nutrition Notes Need for Assessment generated from: MD Order Initial or Follow up Assessment Current Diagnosis Hypertension Other Pertinent Diagnosis SOB, bilateral pneumonia Current Diet none Labs/Tests Na: 129 Cr: 0.6 B Pertinent Medications Reviewed Height 5 ft 9 in Weight 77.2 kg [place] Body Weight (kg) 72.72 BMI 25.1 Weight Status Overweight Subjective/Other Information RD consulted for TF. Burn Absent Trauma Absent #1 Nutrition Diagnosis Inadequate oral intake Etiology mech vent As Evidenced by Signs and Symptoms inability to meet nutrient needs through PO intake, pt. requires enteral nutrition support to meet nutrient needs . Is patient on ventilator? Yes Is Patient Ambulatory and/or Out of Bed No REE-([facility]-confined to bed) Calculation Used for Recommendations [facility] Additional Notes PRO: 93 - 154g PRO (1.2 - 2g KG ABW) fluid: 1 ml/kcal Nutrition Intervention Change Diet Order: TF Nutrition Support: Osmolite 1.5 at 60mL/hr with 175mL flush q4h Kcal 2,169 Protein (gm) 90 Fluid (mL) 1,097 Goal #1 TF tolerance Goal #2 TF to meet at least 80% of energy/protein needs. Anticipated Discharge Needs: Unable to determine at this time Follow-Up By: 06/21/18 Additional Comments F/U: TF tolerance, TF at goal rate
[2018-06-21] MEDS: SOLU-Medrol IV SCH ×2 (09:14→22:50)
[2018-06-21] MEDS: LOVENOX SUB-Q SCH ×2 (09:14→22:50)
[2018-06-21] MEDS: SODIUM CHLORIDE FLUSH SYRINGE 10 ML IV SCH (09:14)
[2018-06-21] MEDS: TAMIFLU PO SCH ×2 (09:14→22:50)
[2018-06-21] MEDS: PEPCID IV SCH (09:14)
--- NOTE | 2018-06-21 10:35 | Progress Note ---
Assessment and Plan Cultures: 06/19/2018 blood culture: no growth 06/19/2018 tracheal aspirate: in process 06/19/2018 fungal blood culture: no growth 06/20/2018 Serum CrAg: negative A/P: 32/M with: #1 Bilateral pneumonia: Extensive bilateral ground glass opacities and pneumonia with severe hypoxia: Clinically concerning for PCP pneumonia since HIV test is positive. Will continue IV Bactrim and steroids. PCP DFA ordered on tracheal aspirate and pending. Continue Tamiflu till PCR results back #2 Acute respiratory failure: Requiring mechanical ventilation. #3 HIV, likely AIDS: Follow-up CD4 count, viral load and genotype. Also f/u CMV DNA PCR. #4 Sepsis: Likely secondary to above. Recs: discontinued Zosyn continue empiric IV Bactrim f/u HIV labs continue IV steroids as adjunctive therapy due to hypoxia Continue Tamiflu for now till flu PCR results are back, still not done, so re- ordered PCP DFA f/u CMV PCR f/u Nimesh Sanchez MD [facility] C: [phone] O: [phone] F: [phone] Subjective Date of service: 06/21/18 Interval history: Remains on the vent. Awake, somewhat agitated. No fever. Still requiring high FiO2 and PEEP. Objective - Exam Narrative Exam: Physical Exam: Constitutional: sedated, intubated, can be awakened. Head, Ears, Nose: Normocephalic, atraumatic. External ears, nose normal Eyes: Conjunctivae/corneas clear. No icterus. No ptosis. Neck: Supple, no meningeal signs Oral: intubated Cardiovascular: S1, S2 normal. Respiratory: Good air entry, clear to auscultation bilaterally GI: Soft, non-tender; bowel sounds normal. No peritoneal signs Musculoskeletal: No pedal edema, no cyanosis. Skin: No rash or abscess Hem/Lymphatic: No palpable cervical or supraclavicular nodes. No lymphangitis Psych: slightly restless Neurological: sedated, intubated, on vent, can be awakened, follows commands. - Constitutional Vitals: Vital Signs Temp Pulse Resp BP Pulse Ox 98.7 F 126 H 20 148/115 91 06/21/18 04:00 06/21/18 08:21 06/21/18 06:20 06/21/18 08:21 06/21/18 09:19 Temperature -Last 24 Hours Temperature 98.7 F Temperature 98.7 F Temperature 98.8 F Temperature 99.7 F Temperature 98.6 F - Labs CBC & Chem 7: 06/21/18 04:19 06/21/18 04:19 Labs: Abnormal lab results 06/20/18 06/20/18 06/20/18 Range/Units 12:59 17:42 23:44 WBC (4.5-11.0) K/mm3 RBC (3.65-5.03) M/mm3 Hgb (11.8-15.2) gm/dl Hct (35.5-45.6) % POC ABG pH (7.35-7.45) Sodium (137-145) mmol/L Carbon Dioxide (22-30) mmol/L Creatinine (0.8-1.5) mg/dL Glucose (75-100) mg/dL POC Glucose 174 H 177 H 195 H (70-105) Calcium (8.4-10.2) mg/dL AST (5-40) units/L ALT (7-56) units/L Total Protein (6.3-8.2) g/dL Albumin (3.9-5) g/dL 06/21/18 06/21/18 06/21/18 Range/Units 04:08 04:19 04:19 WBC 13.8 H (4.5-11.0) K/mm3 RBC 3.02 L (3.65-5.03) M/mm3 Hgb 9.2 L (11.8-15.2) gm/dl Hct 28.0 L (35.5-45.6) % POC ABG pH 7.309 L (7.35-7.45) Sodium 135 L (137-145) mmol/L Carbon Dioxide 21 L (22-30) mmol/L Creatinine 0.7 L (0.8-1.5) mg/dL Glucose 161 H (75-100) mg/dL POC Glucose (70-105) Calcium 7.2 L (8.4-10.2) mg/dL AST 390 H (5-40) units/L ALT 622 H (7-56) units/L Total Protein 5.3 L (6.3-8.2) g/dL Albumin 2.4 L (3.9-5) g/dL 06/21/18 Range/Units 05:27 WBC (4.5-11.0) K/mm3 RBC (3.65-5.03) M/mm3 Hgb (11.8-15.2) gm/dl Hct (35.5-45.6) % POC ABG pH (7.35-7.45) Sodium (137-145) mmol/L Carbon Dioxide (22-30) mmol/L Creatinine (0.8-1.5) mg/dL Glucose (75-100) mg/dL POC Glucose 187 H (70-105) Calcium (8.4-10.2) mg/dL AST (5-40) units/L ALT (7-56) units/L Total Protein (6.3-8.2) g/dL Albumin (3.9-5) g/dL - Imaging and cardiology Chest x-ray: report reviewed, image reviewed (ET tube +, no interval change se en.)
--- NOTE | 2018-06-21 11:37 | Progress Note ---
Assessment and Plan Acute Hypoxemic Respiratory Failure on MVS AIDS / HIV positive Severe Sepsis due to Pneumonia Hyponatremia Severe metabolic acidosis Shock liver - add seroquel to aid weaning off IV sedatives - continue anti-infective's per ID recommendations - send trachel aspirate for cytology / PJP silver stain - continue empiric TamiFlu - get CRP and lactate levels and trend as necessary to aid clinical decision making - continue to wean supplemental oxygen to keep O2 sats > 90% - continue bronchodilators with pulmonary hygiene per RT - continue hyperventilation acutely to compensate for metabolic acidosis - VAP bundle addressed - daily SAT's - Daily SBT assessment - titrate sedatives for RASS 0 to -1 - GI & VTE prophylaxis - enteral nutrition as tolerated - continue accuchecks q6h with glycemic control per SSI for target BG 140-180 mg/dL - continue other care per attending / other clinical services consultant's .... re-evaluate in am & prn CODE STATUS: FULL CODE The high probability of a clinically significant, sudden or life-threatening deterioration of the [cardiac, neurology] system(s) required my full and direct attention, intervention and personal management. The aggregate critical care time was [32] minutes without overlap. Time includes spent on; [x] Data Review and interpretation [x] Patient assessment and monitoring of vital signs [x] Documentation [x] Medication orders and management Subjective Date of service: 06/21/18 Principal diagnosis: Acute Hypoxemic Resp Failure; AIDS / HIV positive; Severe Sepsis due to PNA Interval history: Patient is seen today for: Acute Hypoxemic Respiratory Failure on MVS; AIDS / HIV positive; Severe Sepsis due to Pneumonia; Hyponatremia; Severe metabolic ac idosis Seen and examined at bedside; 24hour events reviewed; nursing and respiratory ca re staff consulted; no adverse overnight events reported to me; agitated in bed despite sedation; on fentanyl and versed; not following prompts well; remains on MVS; no seizures reported; no emesis or overt aspiration Objective Vital Signs - 12hr 06/20/18 06/20/18 06/21/18 23:40 23:50 00:00 Temperature 98.7 F Pulse Rate 100 H 84 90 Respiratory 24 22 22 Rate Blood Pressure 113/74 118/63 118/63 O2 Sat by Pulse 98 98 97 Oximetry 06/21/18 06/21/18 06/21/18 00:10 00:20 00:30 Temperature Pulse Rate 84 86 102 H Respiratory 20 21 27 H Rate Blood Pressure 106/61 108/59 108/59 O2 Sat by Pulse 96 96 99 Oximetry 06/21/18 06/21/18 06/21/18 00:35 00:40 00:50 Temperature Pulse Rate 89 86 108 H Respiratory 22 30 H Rate Blood Pressure 110/73 104/74 O2 Sat by Pulse 98 97 98 Oximetry 06/21/18 06/21/18 06/21/18 01:00 01:10 01:20 Temperature Pulse Rate 90 98 H 97 H Respiratory 24 26 H 28 H Rate Blood Pressure 104/74 107/65 116/72 O2 Sat by Pulse 97 96 97 Oximetry 06/21/18 06/21/18 06/21/18 01:30 01:40 01:50 Temperature Pulse Rate 85 85 109 H Respiratory 23 24 36 H Rate Blood Pressure 116/72 112/70 118/86 O2 Sat by Pulse 96 98 97 Oximetry 06/21/18 06/21/18 06/21/18 02:00 02:10 02:20 Temperature Pulse Rate 110 H 95 H 87 Respiratory 31 H 26 H 22 Rate Blood Pressure 118/86 112/70 112/65 O2 Sat by Pulse 98 97 97 Oximetry 06/21/18 06/21/18 06/21/18 02:30 02:40 02:50 Temperature Pulse Rate 84 96 H 83 Respiratory 18 22 22 Rate Blood Pressure 112/65 112/65 114/69 O2 Sat by Pulse 98 99 98 Oximetry 06/21/18 06/21/18 06/21/18 03:00 03:10 03:20 Temperature Pulse Rate 82 79 79 Respiratory 18 20 21 Rate Blood Pressure 114/69 110/65 115/52 O2 Sat by Pulse 98 98 95 Oximetry 06/21/18 06/21/18 06/21/18 03:21 03:30 03:40 Temperature Pulse Rate 85 82 82 Respiratory 24 25 H Rate Blood Pressure 115/52 123/52 O2 Sat by Pulse 96 95 96 Oximetry 06/21/18 06/21/18 06/21/18 03:50 04:00 04:10 Temperature 98.7 F Pulse Rate 80 108 H 109 H Respiratory 22 15 31 H Rate Blood Pressure 106/60 106/60 124/78 O2 Sat by Pulse 96 90 94 Oximetry 06/21/18 06/21/18 06/21/18 04:20 04:30 04:40 Temperature Pulse Rate 101 H 92 H 84 Respiratory 29 H 18 20 Rate Blood Pressure 122/59 122/59 120/62 O2 Sat by Pulse 96 95 96 Oximetry 06/21/18 06/21/18 06/21/18 04:50 05:00 05:10 Temperature Pulse Rate 99 H 87 84 Respiratory 34 H 24 23 Rate Blood Pressure 114/66 114/66 123/72 O2 Sat by Pulse 95 96 95 Oximetry 06/21/18 06/21/18 06/21/18 05:20 05:30 05:40 Temperature Pulse Rate 84 79 78 Respiratory 21 18 18 Rate Blood Pressure 123/72 123/72 105/62 O2 Sat by Pulse 95 95 95 Oximetry 06/21/18 06/21/18 06/21/18 05:50 06:00 06:10 Temperature Pulse Rate 80 97 H 83 Respiratory 21 21 19 Rate Blood Pressure 123/72 112/52 105/72 O2 Sat by Pulse 95 96 94 Oximetry 06/21/18 06/21/18 06/21/18 06:20 08:21 09:19 Temperature Pulse Rate 79 126 H Respiratory 20 Rate Blood Pressure 108/70 148/115 O2 Sat by Pulse 94 95 91 Oximetry Constitutional: appears uncomfortable, other (young HM normocephalic and atraumatic with moderately increased respiratory effort at rest) Eyes: non-icteric ENT: oropharynx moist, other (ETT 23 cm SATISH) Neck: supple, no lymphadenopathy, no JVD, other (no thyromegaly) Effort: mildly labored Ascultation: Bilateral: diminished breath sounds, rhonchi Percussion: Bilateral: not dull Cardiovascular: regular rate and rhythm Gastrointestinal: normoactive bowel sounds, soft, non-tender, non-distended Integumentary: rash Extremities: no cyanosis, pink and warm, pulses normal, no ischemia or petechiae, edema (trace) Neurologic: non-focal exam (grossly), pupils equal and round, motor strength nor mal and, unable to assess Psychiatric: other (unable to assess) CBC and BMP: 06/22/18 04:47 06/22/18 04:47 ABG, PT/INR, D-dimer: ABG POC ABG pH 7.309 (7.35-7.45) L 06/21/18 04:08 POC ABG pCO2 42.3 (35-45) 06/21/18 04:08 POC ABG pO2 87 (80-105) 06/21/18 04:08 POC ABG HCO3 21.2 06/21/18 04:08 POC ABG Total CO2 22 06/21/18 04:08 POC ABG O2 Sat 96 06/21/18 04:08 PT/INR, D-dimer PT 15.9 Sec. (12.2-14.9) H 06/19/18 Unknown INR 1.19 (0.87-1.13) H 06/19/18 Unknown D-Dimer 8449.09 ng/mlDDU (0-234) H 06/19/18 Unknown Abnormal lab findings: Abnormal Labs 06/19/18 06/19/18 06/19/18 03:31 07:42 08:07 WBC RBC Hgb Hct Seg Neuts % (Manual) Lymphocytes % (Manual) Seg Neutrophils # Man Lymphocytes # (Manual) PT INR D-Dimer POC ABG pH 6.974 L POC ABG pCO2 22.0 L 83.4 H POC ABG pO2 28 L 122 H Sodium Chloride Carbon Dioxide Creatinine Glucose POC Glucose Calcium AST ALT Total Protein Albumin Ur Specific [place] 1.060 H Urine WBC (Auto) 8.0 H 06/19/18 06/19/18 06/19/18 08:16 09:49 11:15 WBC RBC Hgb Hct Seg Neuts % (Manual) Lymphocytes % (Manual) Seg Neutrophils # Man Lymphocytes # (Manual) PT INR D-Dimer POC ABG pH 6.996 L 7.198 L 7.206 L POC ABG pCO2 82.4 H POC ABG pO2 75 L Sodium Chloride Carbon Dioxide Creatinine Glucose POC Glucose Calcium AST ALT Total Protein Albumin Ur Specific [place] Urine WBC (Auto) 06/19/18 06/19/18 06/19/18 18:54 Unknown Unknown WBC 12.9 H RBC Hgb Hct Seg Neuts % (Manual) Lymphocytes % (Manual) 5.0 L Seg Neutrophils # Man Lymphocytes # (Manual) 0.6 L PT 15.9 H INR 1.19 H D-Dimer 8449.09 H POC ABG pH POC ABG pCO2 POC ABG pO2 Sodium Chloride Carbon Dioxide Creatinine Glucose POC Glucose 196 H Calcium AST ALT Total Protein Albumin Ur Specific [place] Urine WBC (Auto) 06/19/18 06/19/1806/20/19 Unknown Unknown 04:33 WBC RBC Hgb Hct Seg Neuts % (Manual) Lymphocytes % (Manual) Seg Neutrophils # Man Lymphocytes # (Manual) PT INR D-Dimer POC ABG pH 7.249 L POC ABG pCO2 POC ABG pO2 118 H Sodium 129 L Chloride 90.7 L Carbon Dioxide 17 L Creatinine 0.6 L Glucose 199 H POC Glucose Calcium 8.1 L AST 53 H ALT Total Protein 6.0 L Albumin 2.8 L Ur Specific [place] Urine WBC (Auto) 06/20/18 06/20/18 06/20/18 08:13 08:13 12:59 WBC 11.8 H RBC 3.25 L Hgb 9.8 L D Hct 30.4 L D Seg Neuts % (Manual) 99.0 H Lymphocytes % (Manual) 1.0 L Seg Neutrophils # Man 11.7 H Lymphocytes # (Manual) 0.1 L PT INR D-Dimer POC ABG pH POC ABG pCO2 POC ABG pO2 Sodium Chloride Carbon Dioxide 19 L Creatinine Glucose 223 H POC Glucose 174 H Calcium 6.6 L D AST 1240 H ALT 836 H Total Protein 4.9 L Albumin 2.1 L Ur Specific [place] Urine WBC (Auto) 06/20/18 06/20/18 06/21/18 17:42 23:44 04:08 WBC RBC Hgb Hct Seg Neuts % (Manual) Lymphocytes % (Manual) Seg Neutrophils # Man Lymphocytes # (Manual) PT INR D-Dimer POC ABG pH 7.309 L POC ABG pCO2 POC ABG pO2 Sodium Chloride Carbon Dioxide Creatinine Glucose POC Glucose 177 H 195 H Calcium AST ALT Total Protein Albumin Ur Specific [place] Urine WBC (Auto) 06/21/18 06/21/18 06/21/18 04:19 04:19 05:27 WBC 13.8 H RBC 3.02 L Hgb 9.2 L Hct 28.0 L Seg Neuts % (Manual) Lymphocytes % (Manual) Seg Neutrophils # Man Lymphocytes # (Manual) PT INR D-Dimer POC ABG pH POC ABG pCO2 POC ABG pO2 Sodium 135 L Chloride Carbon Dioxide 21 L Creatinine 0.7 L Glucose 161 H POC Glucose 187 H Calcium 7.2 L AST 390 H ALT 622 H Total Protein 5.3 L Albumin 2.4 L Ur Specific [place] Urine WBC (Auto) 06/21/18 11:33 WBC RBC Hgb Hct Seg Neuts % (Manual) Lymphocytes % (Manual) Seg Neutrophils # Man Lymphocytes # (Manual) PT INR D-Dimer POC ABG pH POC ABG pCO2 POC ABG pO2 Sodium Chloride Carbon Dioxide Creatinine Glucose POC Glucose 147 H Calcium AST ALT Total Protein Albumin Ur Specific [place] Urine WBC (Auto) Chest x-ray: image reviewed (dense bilateral infiltrates) Allied health notes reviewed: nursing
[2018-06-21] MEDS ORDERED: HALDOL IV ONE (12:43)
[2018-06-21 21:04] LABS: HIV-1 RNA QN PCR 6.11 Log cps/mL
[2018-06-21] MEDS: MIDAZOLAM 100 MG in NACL 0.9% 80 ML IV SCH (21:39)
[2018-06-21] MEDS: PEPCID PO SCH (22:50)
[2018-06-22] MEDS: BACTRIM IV SCH ×4 (00:50→18:41)
[2018-06-22] MEDS: HumaLOG SUB-Q SCH ×4 (00:50→18:41)
[2018-06-22] MEDS: D5W IV SCH ×4 (00:50→18:41)
[2018-06-22] MEDS: SODIUM CHLORIDE FLUSH SYRINGE 10 ML IV SCH ×2 (01:44→09:47)
[2018-06-22] MEDS: fentaNYL DRIP Premix 2,000 MCG/100 ML BAG IV SCH ×4 (01:58→20:17)
[2018-06-22 05:06] LABS: Hematocrit 26.5 % (35.5-45.6); Mean Corpuscular HGB Conc 34 % (32-34); Mean Corpuscular Volume 90 fl (84-94); Platelet Count 229 K/mm3 (140-440); Red Blood Count 2.93 M/mm3 (3.65-5.03); Red Cell Distribution Width 14.2 % (13.2-15.2)
[2018-06-22 05:26] LABS: Alanine Aminotransferase 416 units/L (7-56); Albumin 2.4 g/dL (3.9-5); BUN/Creatinine Ratio 20; Blood Urea Nitrogen 22 mg/dL (9-20); Calcium 7.8 mg/dL (8.4-10.2); Hemolysis Index 3
[2018-06-22 06:57] LABS: HIV-1 Antibody Differentiation SEE SCANNED RESULTS; HIV-2 Antibody Differentiation SEE SCANNED RESULTS
[2018-06-22] MEDS: PEPCID PO SCH ×2 (09:45→21:24)
[2018-06-22] MEDS: TAMIFLU PO SCH ×2 (09:45→21:25)
[2018-06-22] MEDS: LOVENOX SUB-Q SCH ×2 (09:45→21:24)
[2018-06-22] MEDS: SOLU-Medrol IV SCH ×2 (09:46→21:24)
--- NOTE | 2018-06-22 11:42 | Progress Note ---
Assessment and Plan Cultures: 06/19/2018 blood culture: no growth 06/19/2018 tracheal aspirate: usual resp david 06/19/2018 fungal blood culture: no growth 06/20/2018 Serum CrAg: negative A/P: 32/M with: #1 Bilateral pneumonia: Extensive bilateral ground glass opacities and pneumonia with severe hypoxia: Clinically concerning for PJP pneumonia since HIV test is positive. Other possibilities: CAP or other opportunistic infections. Sputum culture grew normal resp david. On IV Bactrim and steroids. #2 Acute respiratory failure: Requiring mechanical ventilation. Not better still FIo2 70% p 12 #3 HIV, likely AIDS: VL 1,300,000 copies #4 Sepsis: Likely secondary to above. Recs: Continue empiric IV Bactrim D2 Continue IV steroids Add ceftriaxone 2 g IV q day and levaquin 750 mg IV qday to cover CAP in light of not improvement on hypoxemia Continue Tamiflu for now till flu PCR results are back, still not done, so re- ordered F/u PCP DFA f/u F/u CMV PCR f/u F/u CD4, genotype, CMV Guarded prognosis I am covering this weekend Keke Manzo MD Infectious Diseases [employer] [facility] M [phone] O [phone] Subjective Date of service: 06/22/18 Principal diagnosis: HIV/PNA Interval history: Patient remains intubated on CMV FiO2 70%, p 12, sedated on 2 sedatives. No fever. ROS unable to obtain Objective - Exam Narrative Exam: General appearance: sedated on the vent FIO2 70% Eyes: anicteric sclerae, moist conjunctivae; no lid-lag; PERRLA HENT: Atraumatic; oropharynx +ETT. Neck: Trachea midline; supple, no thyromegaly or lymphadenopathy Lungs: shruthi rhonchi CV: tachycardic Abdomen: Soft, non-tender; no masses or hepatosplenomegaly Extremities: No peripheral edema or extremity lymphadenopathy Skin: Normal temperature, turgor and texture; no rash, ulcers or subcutaneous nodules Psych: sedated. Neuro: sedated Rust Right IJ TLC - Constitutional Vitals: Vital Signs Temp Pulse Resp BP Pulse Ox 97.9 F 115 H 30 H 108/78 89 06/22/18 08:00 06/22/18 11:00 06/22/18 11:00 06/22/18 11:00 06/22/18 11:00 Temperature -Last 24 Hours Temperature 97.9 F Temperature 98 F Temperature 99.1 F Temperature 98.1 F Temperature 97.7 F - Labs CBC & Chem 7: 06/22/18 04:47 06/22/18 04:47 Labs: Abnormal lab results 06/19/18 06/19/18 06/21/18 Range/Units 09:20 15:16 17:45 WBC (4.5-11.0) K/mm3 RBC (3.65-5.03) M/mm3 Hgb (11.8-15.2) gm/dl Hct (35.5-45.6) % BUN (9-20) mg/dL Glucose (75-100) mg/dL POC Glucose 172 H (70-105) Calcium (8.4-10.2) mg/dL AST (5-40) units/L ALT (7-56) units/L Total Protein (6.3-8.2) g/dL Albumin (3.9-5) g/dL HIV DNA Qual (PCR) Detected H (Not Detected) HIV-1 RNA PCR copies/ml [id number] H Copies/mL HIV-1 RNA (PCR) log 6.11 H Log cps/mL 06/21/18 06/22/18 06/22/18 Range/Units 23:25 04:47 04:47 WBC 11.5 H (4.5-11.0) K/mm3 RBC 2.93 L (3.65-5.03) M/mm3 Hgb 9.0 L (11.8-15.2) gm/dl Hct 26.5 L (35.5-45.6) % BUN 22 H (9-20) mg/dL Glucose 201 H (75-100) mg/dL POC Glucose 152 H (70-105) Calcium 7.8 L (8.4-10.2) mg/dL AST 129 H (5-40) units/L ALT 416 H (7-56) units/L Total Protein 5.3 L (6.3-8.2) g/dL Albumin 2.4 L (3.9-5) g/dL HIV DNA Qual (PCR) (Not Detected) HIV-1 RNA PCR copies/ml Copies/mL HIV-1 RNA (PCR) log Log cps/mL 06/22/18 Range/Units 05:23 WBC (4.5-11.0) K/mm3 RBC (3.65-5.03) M/mm3 Hgb (11.8-15.2) gm/dl Hct (35.5-45.6) % BUN (9-20) mg/dL Glucose (75-100) mg/dL POC Glucose 170 H (70-105) Calcium (8.4-10.2) mg/dL AST (5-40) units/L ALT (7-56) units/L Total Protein (6.3-8.2) g/dL Albumin (3.9-5) g/dL HIV DNA Qual (PCR) (Not Detected) HIV-1 RNA PCR copies/ml Copies/mL HIV-1 RNA (PCR) log Log cps/mL
--- NOTE | 2018-06-22 15:09 | Progress Note ---
Assessment and Plan Assessment and plan: 32-year-old man with hypertension comes emergency room with complaints of shortness of breath, cough for 3days. He was found to have extensive bilateral pneumonia, placed on BiPAP but he failed. The patient had to be intubated. , ROS unobtainable. Altered bedside stated that the patient has very depressed since March, his at that time. He has been eating very little Acute respiratory failure with hypoxia requiring full mechanical ventilatory support Sepsis secondary to bilateral pneumonia Excessive bilateral pneumonia HIV Hyponatremia Severe metabolic acidosis shock liver-Improving Plan of care Continue full ventilatory support as directed by sql report writer Continue antibiotics as recommended by ID fungal culture ongoing. Since patient is from [place] CT chest when stable VAP precautions agree with continuation of Tamiflu till flu PCR is also noted. Awaiting family to assist with patient's medical history and any home medications DVT and GI prophylaxis Case discussed with nursing staff. No family present The high probability of a clinically significant, sudden or life threatening deterioration of the [Pulmonary] system(s) required my full and direct attention, intervention and personal management. The aggregate critical care time was [35] minutes. This time is in addition to time spent performing reported procedures but includes the following: [x] Data Review and interpretation [x] Patient assessment and monitoring of vital signs [x] Documentation [x] Medication orders and management History Interval history: Patient seen and examined grimace a full ventilatory support although awakens on verbal commands. Hospitalist Physical - Physical exam Narrative exam: VITAL SIGNS: Reviewed. GENERAL: The patient appeared well nourished and normally developed. Full mechanical ventilation Vital signs as documented. HEAD: No signs of head trauma. EYES: Pupils are equal. Extraocular motions intact. EARS: Hearing grossly intact. MOUTH: ETT NECK: No adenopathy, no JVD. CHEST: Chest with clear breath sounds bilaterally. No wheezes, rales, or rhonchi. CARDIAC: Regular rate and rhythm. S1 and S2, without murmurs, gallops, or rubs. VASCULAR: No Edema. Peripheral pulses normal and equal in all extremities. ABDOMEN: Soft, without detectable tenderness. No sign of distention. No rebound or guarding, and no masses palpated. Bowel Sounds normal. MUSCULOSKELETAL: Good range of motion of all major joints. Extremities without clubbing, cyanosis or edema. NEUROLOGIC EXAM: awake, orientation unable to assess. No focal sensory or strength deficits. Speech normal. Follows commands. PSYCHIATRIC: Mood normal. SKIN: No rash or lesions. - Constitutional Vitals: Temp Pulse Resp BP Pulse Ox 98.6 F 113 H 30 H 110/67 94 06/22/18 12:00 06/22/18 14:11 06/22/18 14:11 06/22/18 14:11 06/22/18 14:11 Results - Labs CBC & Chem 7: 06/23/18 05:11 06/23/18 05:11 Labs: Laboratory Last Values WBC 11.5 K/mm3 (4.5-11.0) H 06/22/18 04:47 RBC 2.93 M/mm3 (3.65-5.03) L 06/22/18 04:47 Hgb 9.0 gm/dl (11.8-15.2) L 06/22/18 04:47 Hct 26.5 % (35.5-45.6) L 06/22/18 04:47 MCV 90 fl (84-94) 06/22/18 04:47 MCH 31 pg (28-32) 06/22/18 04:47 MCHC 34 % (32-34) 06/22/18 04:47 RDW 14.2 % (13.2-15.2) 06/22/18 04:47 Plt Count 229 K/mm3 (140-440) 06/22/18 04:47 Add Manual Diff Complete 06/20/18 08:13 Total Counted 100 06/20/18 08:13 Seg Neutrophils % Motorboat Mechanic Inboard 06/20/18 08:13 Seg Neuts % (Manual) 99.0 % (40.0-70.0) H 06/20/18 08:13 Band Neutrophils % 0 % 06/20/18 08:13 Lymphocytes % (Manual) 1.0 % (13.4-35.0) L 06/20/18 08:13 Reactive Lymphs % (Man) 0 % 06/20/18 08:13 Monocytes % (Manual) 0 % (0.0-7.3) 06/20/18 08:13 Eosinophils % (Manual) 0 % (0.0-4.3) 06/20/18 08:13 Basophils % (Manual) 0 % (0.0-1.8) 06/20/18 08:13 Metamyelocytes % 0 % 06/20/18 08:13 Myelocytes % 0 % 06/20/18 08:13 Promyelocytes % 0 % 06/20/18 08:13 Blast Cells % 0 % 06/20/18 08:13 Nucleated RBC % Not Reportable 06/20/18 08:13 Seg Neutrophils # Man 11.7 K/mm3 (1.8-7.7) H 06/20/18 08:13 Band Neutrophils # 0.0 K/mm3 06/20/18 08:13 Lymphocytes # (Manual) 0.1 K/mm3 (1.2-5.4) L 06/20/18 08:13 Abs React Lymphs (Man) 0.0 K/mm3 06/20/18 08:13 Monocytes # (Manual) 0.0 K/mm3 (0.0-0.8) 06/20/18 08:13 Eosinophils # (Manual) 0.0 K/mm3 (0.0-0.4) 06/20/18 08:13 Basophils # (Manual) 0.0 K/mm3 (0.0-0.1) 06/20/18 08:13 Metamyelocytes # 0.0 K/mm3 06/20/18 08:13 Myelocytes # 0.0 K/mm3 06/20/18 08:13 Promyelocytes # 0.0 K/mm3 06/20/18 08:13 Blast Cells # 0.0 K/mm3 06/20/18 08:13 WBC Morphology Not Reportable 06/20/18 08:13 Hypersegmented Neuts Not Reportable 06/20/18 08:13 Hyposegmented Neuts Not Reportable 06/20/18 08:13 Hypogranular Neuts Not Reportable 06/20/18 08:13 Smudge Cells Not Reportable 06/20/18 08:13 Toxic Granulation Not Reportable 06/20/18 08:13 Toxic Vacuolation Not Reportable 06/20/18 08:13 Dohle Bodies Not Reportable 06/20/18 08:13 Pelger-Huet Anomaly Not Reportable 06/20/18 08:13 Loretta Rods Not Reportable 06/20/18 08:13 Platelet Estimate Consistent w auto 06/20/18 08:13 Clumped Platelets Not Reportable 06/20/18 08:13 Plt Clumps, EDTA Not Reportable 06/20/18 08:13 Large Platelets Not Reportable 06/20/18 08:13 Giant Platelets Not Reportable 06/20/18 08:13 Platelet Satelliting Not Reportable 06/20/18 08:13 Plt Morphology Comment Not Reportable 06/20/18 08:13 RBC Morphology Not Reportable 06/20/18 08:13 Dimorphic RBCs Not Reportable 06/20/18 08:13 Polychromasia Not Reportable 06/20/18 08:13 Hypochromasia Not Reportable 06/20/18 08:13 Poikilocytosis 1+ 06/20/18 08:13 Anisocytosis 1+ 06/20/18 08:13 Microcytosis Not Reportable 06/20/18 08:13 Macrocytosis Not Reportable 06/20/18 08:13 Spherocytes Not Reportable 06/20/18 08:13 Pappenheimer Bodies Not Reportable 06/20/18 08:13 Sickle Cells Not Reportable 06/20/18 08:13 Target Cells Not Reportable 06/20/18 08:13 Tear Drop Cells Not Reportable 06/20/18 08:13 Ovalocytes 1+ 06/20/18 08:13 Helmet Cells Not Reportable 06/20/18 08:13 [place] Bodies Not Reportable 06/20/18 08:13 [place] Rings Not Reportable 06/20/18 08:13 [place] Cells Not Reportable 06/20/18 08:13 Bite Cells Not Reportable 06/20/18 08:13 Crenated Cell Not Reportable 06/20/18 08:13 Elliptocytes Not Reportable 06/20/18 08:13 Acanthocytes (Spur) Not Reportable 06/20/18 08:13 Rouleaux Not Reportable 06/20/18 08:13 Hemoglobin C Crystals Not Reportable 06/20/18 08:13 Schistocytes Not Reportable 06/20/18 08:13 Malaria parasites Not Reportable 06/20/18 08:13 Jesus Bodies Not Reportable 06/20/18 08:13 Hem Pathologist Commnt No 06/20/18 08:13 PT 15.9 Sec. (12.2-14.9) H 06/19/18 Unknown INR 1.19 (0.87-1.13) H 06/19/18 Unknown APTT 28.7 Sec. (24.2-36.6) 06/19/18 Unknown D-Dimer 8449.09 ng/mlDDU (0-234) H 06/19/18 Unknown POC ABG pH 7.391 (7.35-7.45) 06/22/18 03:51 POC ABG pCO2 37.9 (35-45) 06/22/18 03:51 POC ABG pO2 81 (80-105) 06/22/18 03:51 POC ABG HCO3 22.9 06/22/18 03:51 POC ABG Total CO2 24 06/22/18 03:51 POC ABG O2 Sat 96 06/22/18 03:51 POC ABG Base Excess -2 06/22/18 03:51 FiO2 75 % 06/22/18 03:51 Sodium 141 mmol/L (137-145) 06/22/18 04:47 Potassium 4.8 mmol/L (3.6-5.0) 06/22/18 04:47 Chloride 105.2 mmol/L (98-107) 06/22/18 04:47 Carbon Dioxide 22 mmol/L (22-30) 06/22/18 04:47 Anion Gap 19 mmol/L 06/22/18 04:47 BUN 22 mg/dL (9-20) H 06/22/18 04:47 Creatinine 1.1 mg/dL (0.8-1.5) D 06/22/18 04:47 Estimated GFR > 60 ml/min 06/22/18 04:47 BUN/Creatinine Ratio 20 % 06/22/18 04:47 Glucose 201 mg/dL (75-100) H 06/22/18 04:47 POC Glucose 175 (70-105) H 06/22/18 11:43 Lactic Acid 1.70 mmol/L (0.7-2.0) 06/19/18 05:26 Calcium 7.8 mg/dL (8.4-10.2) L 06/22/18 04:47 Total Bilirubin 0.20 mg/dL (0.1-1.2) 06/22/18 04:47 Direct Bilirubin < 0.2 mg/dL (0-0.2) 06/19/18 Unknown Indirect Bilirubin 0.2 mg/dL 06/19/18 Unknown AST 129 units/L (5-40) H 06/22/18 04:47 ALT 416 units/L (7-56) H 06/22/18 04:47 Alkaline Phosphatase 115 units/L (35-129) 06/22/18 04:47 Troponin T < 0.010 ng/mL (0.00-0.029) 06/19/18 Unknown NT-Pro-B Natriuret Pep 226.4 pg/mL (0-450) 06/19/18 Unknown Total Protein 5.3 g/dL (6.3-8.2) L 06/22/18 04:47 Albumin 2.4 g/dL (3.9-5) L 06/22/18 04:47 Albumin/Globulin Ratio 0.8 % 06/22/18 04:47 Urine Color Yellow (Yellow) 06/19/18 08:07 Urine Turbidity Clear (Clear) 06/19/18 08:07 Urine pH 5.0 (5.0-7.0) 06/19/18 08:07 Ur Specific [place] 1.060 (1.003-1.030) H 06/19/18 08:07 Urine Protein 100 mg/dl mg/dL (Negative) 06/19/18 08:07 Urine Glucose (UA) Neg mg/dL (Negative) 06/19/18 08:07 Urine Ketones Neg mg/dL (Negative) 06/19/18 08:07 Urine Blood Sm (Negative) 06/19/18 08:07 Urine Nitrite Neg (Negative) 06/19/18 08:07 Urine Bilirubin Neg (Negative) 06/19/18 08:07 Urine Urobilinogen < 2.0 mg/dL (<2.0) 06/19/18 08:07 Ur Leukocyte Esterase Neg (Negative) 06/19/18 08:07 Urine WBC (Auto) 8.0 /HPF (0.0-6.0) H 06/19/18 08:07 Urine RBC (Auto) 35.0 /HPF (0.0-6.0) 06/19/18 08:07 U Epithel Cells (Auto) < 1.0 /HPF (0-13.0) 06/19/18 08:07 Urine Mucus Few /HPF 06/19/18 08:07 Urine Opiates Screen Presumptive negative 06/19/18 08:06 Urine Methadone Screen Presumptive negative 06/19/18 08:06 Ur Barbiturates Screen Presumptive negative 06/19/18 08:06 Ur Phencyclidine Scrn Presumptive negative 06/19/18 08:06 Ur Amphetamines Screen Presumptive negative 06/19/18 08:06 U Benzodiazepines Scrn Presumptive positive 06/19/18 08:06 Urine Cocaine Screen Presumptive negative 06/19/18 08:06 U Marijuana (THC) Screen Presumptive negative 06/19/18 08:06 Drugs of Abuse Note Disclamer 06/19/18 08:06 Hepatitis A IgM Ab Non-reactive (NonReactive) 06/21/18 04:19 Hep Bs Antigen Non-reactive (Negative) 06/21/18 04:19 Hep B Core IgM Ab Non-reactive (NonReactive) 06/21/18 04:19 Hepatitis C Antibody Non-reactive (NonReactive) 06/21/18 04:19 HIV DNA Qual (PCR) Detected (Not Detected) H 06/19/18 09:20 HIV-1 Antibody See scanned results 06/19/18 07:12 HIV-1 RNA PCR copies/ml [id number] Copies/mL H 06/19/18 15:16 HIV-1 RNA (PCR) log 6.11 Log cps/mL H 06/19/18 15:16 HIV-2 Ab (Immunoblot) See scanned results 06/19/18 07:12 HIV 1&2 Antibody Rapid Reactive (Non React) 06/19/18 07:10 HIV P24 Antigen Invalid (Non React) 06/19/18 07:10 Influenza A (Rapid) Negative (Negative) 06/19/18 Unknown Influenza A (RT-PCR) Negative (Negative) 06/21/18 12:30 Influenza B (Rapid) Negative (Negative) 06/19/18 Unknown Influenza B (RT-PCR) Negative (Negative) 06/21/18 12:30 Nutrition/Malnutrition Assess - Dietary Evaluation Nutrition/Malnutrition Findings: Nutrition Notes Start: 06/19/18 14:17 Freq: Status: Active Protocol: Document 06/21/18 12:47 CT (Rec: 06/21/18 14:14 CT [id number]) Co-Sign 06/21/18 12:47 LP Nutrition Notes Initial or Follow up Reassessment Current Diagnosis Hypertension Other Pertinent Diagnosis SOB, bilateral pneumonia, HIV Current Diet TF- Osmolite 1.5 @60mls/hr Labs/Tests Na: 135 Cr: 0.7 B Pertinent Medications Reviewed. Height 5 ft 9 in Weight 78.4 kg [place] Body Weight (kg) 72.72 BMI 25.5 Weight Status Overweight Subjective/Other Information Observed TF infusing at 50mls/ hr. Spoke with RN who reported pt is tolerating TF well and ina soon be advanced to goal. Percent of needs met calculated based on 50ml/hr Percent of energy/protein needs met: 83%81/% Burn Absent Trauma Absent #1 Nutrition Diagnosis Inadequate oral intake Diagnosis Progress(for reassessment Continues documentation) Is patient on ventilator? Yes Is Patient Ambulatory and/or Out of Bed No REE-(H[place]-St. Jeor-confined to bed) 2070.380 Calculation Used for Recommendations [place]-St or Additional Notes PRO: 93 - 154g PRO (1.2 - 2g KG ABW) fluid: 1 ml/kcal Nutrition Intervention Change Diet Order: Continue TF Nutrition Support: Osmolite 1.5 at 60mL/hr with 175mL flush q4h Kcal 2,169 Protein (gm) 90 Carbohydrates (gm) 293 Fat (gm) 70 Fluid (mL) 1,097 Fiber (gm) 0 Goal #1 TF at goal Goal #2 TF to meet 80-100% of kcal and protein needs. Anticipated Discharge Needs: Unable to determine at this time Follow-Up By: 06/26/18 Additional Comments F/U: TF at goal rate
[2018-06-22] MEDS: ROCEPHIN/NS 2 GM/100 ML 2 GM/100 ML BAG IV SCH (15:12)
[2018-06-22] MEDS: NACL 0.9% IV SCH (15:13)
[2018-06-22] MEDS: VFEND IV SCH (15:13)
[2018-06-22] MEDS: LEVAQUIN 750MG/150ML 750 MG/150 ML BAG IV SCH (15:25)
--- NOTE | 2018-06-22 16:07 | XRay Report ---
FINAL REPORT EXAM: XR CHEST 1V AP HISTORY: follow up respiratory failure TECHNIQUE: Frontal chest x-ray. PRIORS: Chest x-ray June 20, 2018. FINDINGS: Cardiac silhouette is within normal limits and stable. Aortic calcifications. There is bilateral perihilar peribronchial thickening with airspace opacities. Consolidations with ai r bronchograms in both lower lobes. No pneumothorax. No obvious effusion. There are no suspicious osseous lesions. Right central line tip is in the SVC. Enteric tube tip and side hole are in the distal stomach. Endotracheal tube tip is 8.5 cm above the bernardino. Recommend repositioning at 4 cm above the bernardino. IMPRESSION: Stable chest. Pulmonary findings suggest pulmonary vascular congestion with edema. Differential diagn osis includes acute pneumonitis and pneumonia. Recommend repositioning of the endotracheal tube.
--- NOTE | 2018-06-22 18:36 | Progress Note ---
Assessment and Plan Acute Hypoxemic Respiratory Failure on MVS AIDS / HIV positive Severe Sepsis due to Pneumonia Hyponatremia Severe metabolic acidosis Shock liver - continue Peep of 12 to recruit alveolii - Cytology negative for PCP - Voriconazole added per ID rec's - follow 2D ECHO re: ? bilateral pulmonary edema - increased seroquel to aid weaning off IV sedatives - continue anti-infective's per ID recommendations - complete empiric TamiFlu - get CRP and lactate levels and trend as necessary to aid clinical decision making - continue to wean supplemental oxygen to keep O2 sats > 90% - continue bronchodilators with pulmonary hygiene per RT - continue hyperventilation acutely to compensate for metabolic acidosis - VAP bundle addressed - daily SAT's - Daily SBT assessment - titrate sedatives for RASS 0 to -1 - GI & VTE prophylaxis - enteral nutrition as tolerated - continue accuchecks q6h with glycemic control per SSI for target BG 140-180 mg/dL - continue other care per attending / other senior billing consultant's .... re-evaluate in am & prn CODE STATUS: FULL CODE The high probability of a clinically significant, sudden or life-threatening deterioration of the [cardiac, neurology] system(s) required my full and direct attention, intervention and personal management. The aggregate critical care time was [35] minutes without overlap. Time includes spent on; [x] Data Review and interpretation [x] Patient assessment and monitoring of vital signs [x] Documentation [x] Medication orders and management Subjective Date of service: 06/22/18 Principal diagnosis: Acute Hypoxemic Resp Failure; AIDS / HIV positive; Severe Sepsis due to PNA Interval history: Patient is seen today for: Acute Hypoxemic Respiratory Failure on MVS; AIDS / HIV positive; Severe Sepsis due to Pneumonia; Hyponatremia; Severe metabolic acidosis Seen and examined at bedside; 24hour events reviewed; nursing and respiratory care staff consulted; no adverse overnight events reported to me; remains on MVS; cytology negative for PJP but multiple other organisms seen; AMS is persistent; agitated during sedation vacations; to begin enteral nutrition; no sezures Objective Vital Signs - 12hr 06/22/18 06/22/18 06/22/18 06:40 06:50 07:00 Temperature Pulse Rate 110 H 108 H 107 H Pulse Rate [ From Monitor] Respiratory 30 H 29 H 28 H Rate Blood Pressure 107/65 107/65 107/65 O2 Sat by Pulse 93 93 93 Oximetry 06/22/18 06/22/18 06/22/18 07:10 07:20 07:30 Temperature Pulse Rate 108 H 111 H 107 H Pulse Rate [ From Monitor] Respiratory 30 H 30 H 30 H Rate Blood Pressure 107/65 107/65 107/65 O2 Sat by Pulse 94 93 93 Oximetry 06/22/18 06/22/18 06/22/18 07:40 07:50 08:00 Temperature 97.9 F Pulse Rate 105 H 106 H 105 H Pulse Rate [ 105 H From Monitor] Respiratory 29 H 30 H 28 H Rate Blood Pressure 107/71 110/80 110/80 O2 Sat by Pulse 94 95 94 Oximetry 06/22/18 06/22/18 06/22/18 08:10 08:20 08:22 Temperature Pulse Rate 107 H 112 H 105 H Pulse Rate [ From Monitor] Respiratory 32 H 31 H Rate Blood Pressure 125/77 112/74 O2 Sat by Pulse 97 91 Oximetry 06/22/18 06/22/18 06/22/18 08:30 08:40 08:51 Temperature Pulse Rate 112 H 111 H 107 H Pulse Rate [ From Monitor] Respiratory 30 H 24 28 H Rate Blood Pressure 112/74 115/61 115/61 O2 Sat by Pulse 93 95 93 Oximetry 06/22/18 06/22/18 06/22/18 09:00 09:11 09:12 Temperature Pulse Rate 110 H 119 H 107 H Pulse Rate [ From Monitor] Respiratory 30 H 31 H Rate Blood Pressure 113/71 113/71 113/71 O2 Sat by Pulse 89 91 97 Oximetry 06/22/18 06/22/18 06/22/18 09:21 09:30 09:41 Temperature Pulse Rate 108 H 106 H 109 H Pulse Rate [ From Monitor] Respiratory 30 H 30 H 26 H Rate Blood Pressure 119/75 117/69 117/69 O2 Sat by Pulse 92 90 91 Oximetry 06/22/18 06/22/18 06/22/18 09:51 10:00 10:11 Temperature Pulse Rate 111 H 113 H 119 H Pulse Rate [ From Monitor] Respiratory 32 H 27 H 30 H Rate Blood Pressure 118/76 125/73 125/73 O2 Sat by Pulse 89 90 92 Oximetry 06/22/18 06/22/18 06/22/18 10:21 10:30 10:41 Temperature Pulse Rate 121 H 120 H 122 H Pulse Rate [ From Monitor] Respiratory 28 H 28 H 30 H Rate Blood Pressure 108/64 116/71 116/71 O2 Sat by Pulse 93 89 92 Oximetry 06/22/18 06/22/18 06/22/18 10:51 11:00 11:10 Temperature Pulse Rate 120 H 115 H 116 H Pulse Rate [ From Monitor] Respiratory 29 H 30 H 29 H Rate Blood Pressure 111/75 108/78 111/75 O2 Sat by Pulse 91 89 91 Oximetry 06/22/18 06/22/18 06/22/18 11:21 11:30 11:41 Temperature Pulse Rate 120 H 115 H 114 H Pulse Rate [ From Monitor] Respiratory 31 H 30 H 28 H Rate Blood Pressure 107/74 124/73 124/73 O2 Sat by Pulse 92 89 92 Oximetry 06/22/18 06/22/18 06/22/18 11:44 11:51 12:00 Temperature 98.6 F Pulse Rate 110 H 113 H 116 H Pulse Rate [ 115 H From Monitor] Respiratory 30 H 31 H Rate Blood Pressure 124/73 133/73 120/66 O2 Sat by Pulse 92 95 90 Oximetry 06/22/18 06/22/18 06/22/18 12:11 12:21 12:22 Temperature Pulse Rate 115 H 114 H 115 H Pulse Rate [ From Monitor] Respiratory 32 H 30 H Rate Blood Pressure 120/66 128/68 O2 Sat by Pulse 93 93 Oximetry 06/22/18 06/22/18 06/22/18 12:31 12:41 12:51 Temperature Pulse Rate 114 H 112 H 113 H Pulse Rate [ From Monitor] Respiratory 30 H 30 H 30 H Rate Blood Pressure 128/62 128/62 125/87 O2 Sat by Pulse 93 93 94 Oximetry 06/22/18 06/22/18 06/22/18 13:00 13:11 13:21 Temperature Pulse Rate 111 H 112 H 113 H Pulse Rate [ From Monitor] Respiratory 30 H 29 H 28 H Rate Blood Pressure 117/70 128/68 109/69 O2 Sat by Pulse 91 94 93 Oximetry 06/22/18 06/22/18 06/22/18 13:30 13:41 13:51 Temperature Pulse Rate 113 H 112 H 115 H Pulse Rate [ From Monitor] Respiratory 28 H 30 H 30 H Rate Blood Pressure 116/68 116/68 121/67 O2 Sat by Pulse 91 94 94 Oximetry 06/22/18 06/22/18 06/22/18 14:00 14:11 14:21 Temperature Pulse Rate 115 H 113 H 112 H Pulse Rate [ From Monitor] Respiratory 31 H 30 H 30 H Rate Blood Pressure 110/67 110/67 104/66 O2 Sat by Pulse 90 94 94 Oximetry 06/22/18 06/22/18 06/22/18 14:30 14:41 14:51 Temperature Pulse Rate 113 H 110 H 106 H Pulse Rate [ From Monitor] Respiratory 30 H 30 H 26 H Rate Blood Pressure 98/67 98/67 113/74 O2 Sat by Pulse 90 94 93 Oximetry 06/22/18 06/22/18 06/22/18 15:00 15:11 15:21 Temperature Pulse Rate 104 H 105 H 107 H Pulse Rate [ From Monitor] Respiratory 28 H 24 29 H Rate Blood Pressure 119/66 119/66 119/75 O2 Sat by Pulse 93 95 95 Oximetry 06/22/18 06/22/18 06/22/18 15:30 15:41 15:51 Temperature Pulse Rate 107 H 105 H 106 H Pulse Rate [ From Monitor] Respiratory 27 H 26 H 21 Rate Blood Pressure 113/77 113/77 116/76 O2 Sat by Pulse 92 95 96 Oximetry 06/22/18 06/22/18 06/22/18 15:56 16:00 16:11 Temperature 98.3 F Pulse Rate 105 H 105 H 103 H Pulse Rate [ 103 H From Monitor] Respiratory 29 H 27 H Rate Blood Pressure 116/76 119/75 119/75 O2 Sat by Pulse 95 91 93 Oximetry 06/22/18 06/22/18 06/22/18 16:21 16:30 16:41 Temperature Pulse Rate 103 H 102 H 104 H Pulse Rate [ From Monitor] Respiratory 24 26 H 28 H Rate Blood Pressure 128/73 121/75 121/75 O2 Sat by Pulse 92 91 92 Oximetry 06/22/18 06/22/18 06/22/18 16:51 17:00 17:11 Temperature Pulse Rate 107 H 104 H 107 H Pulse Rate [ From Monitor] Respiratory 28 H 26 H 22 Rate Blood Pressure 125/69 122/77 122/77 O2 Sat by Pulse 92 90 93 Oximetry 06/22/18 06/22/18 06/22/18 17:21 17:30 17:41 Temperature Pulse Rate 104 H 106 H 109 H Pulse Rate [ From Monitor] Respiratory 24 21 27 H Rate Blood Pressure 121/75 111/75 111/75 O2 Sat by Pulse 94 91 93 Oximetry 06/22/18 06/22/18 17:51 18:00 Temperature Pulse Rate 107 H 106 H Pulse Rate [ From Monitor] Respiratory 26 H 28 H Rate Blood Pressure 120/73 128/75 O2 Sat by Pulse 94 90 Oximetry Constitutional: appears uncomfortable, other (young HM normocephalic and atraumatic with moderately increased respiratory effort at rest) Eyes: non-icteric ENT: oropharynx moist, other (ETT 23 cm SATISH) Neck: supple, no lymphadenopathy, no JVD, other (no thyromegaly) Effort: mildly labored Ascultation: Bilateral: diminished breath sounds, rhonchi Percussion: Bilateral: not dull Cardiovascular: regular rate and rhythm Gastrointestinal: normoactive bowel sounds, soft, non-tender, non-distended Integumentary: rash Extremities: no cyanosis, pink and warm, pulses normal, no ischemia or petechiae, edema (trace) Neurologic: non-focal exam (grossly), pupils equal and round, motor strength normal and, unable to assess Psychiatric: other (unable to assess) CBC and BMP: 06/23/18 05:11 06/23/18 13:57 ABG, PT/INR, D-dimer: ABG POC ABG pH 7.391 (7.35-7.45) 06/22/18 03:51 POC ABG pCO2 37.9 (35-45) 06/22/18 03:51 POC ABG pO2 81 (80-105) 06/22/18 03:51 POC ABG HCO3 22.9 06/22/18 03:51 POC ABG Total CO2 24 06/22/18 03:51 POC ABG O2 Sat 96 06/22/18 03:51 PT/INR, D-dimer PT 15.9 Sec. (12.2-14.9) H 06/19/18 Unknown INR 1.19 (0.87-1.13) H 06/19/18 Unknown D-Dimer 8449.09 ng/mlDDU (0-234) H 06/19/18 Unknown Abnormal lab findings: Abnormal Labs 06/19/18 06/19/18 06/19/18 03:31 07:42 08:07 WBC RBC Hgb Hct Seg Neuts % (Manual) Lymphocytes % (Manual) Seg Neutrophils # Man Lymphocytes # (Manual) PT INR D-Dimer POC ABG pH 6.974 L POC ABG pCO2 22.0 L 83.4 H POC ABG pO2 28 L 122 H Sodium Chloride Carbon Dioxide BUN Creatinine Glucose POC Glucose Calcium AST ALT Total Protein Albumin Ur Specific [place] 1.060 H Urine WBC (Auto) 8.0 H HIV DNA Qual (PCR) HIV-1 RNA PCR copies/ml HIV-1 RNA (PCR) log 06/19/18 06/19/18 06/19/18 08:16 09:20 09:49 WBC RBC Hgb Hct Seg Neuts % (Manual) Lymphocytes % (Manual) Seg Neutrophils # Man Lymphocytes # (Manual) PT INR D-Dimer POC ABG pH 6.996 L 7.198 L POC ABG pCO2 82.4 H POC ABG pO2 Sodium Chloride Carbon Dioxide BUN Creatinine Glucose POC Glucose Calcium AST ALT Total Protein Albumin Ur Specific [place] Urine WBC (Auto) HIV DNA Qual (PCR) Detected H HIV-1 RNA PCR copies/ml HIV-1 RNA (PCR) log 06/19/18 06/19/18 06/19/18 11:15 15:16 18:54 WBC RBC Hgb Hct Seg Neuts % (Manual) Lymphocytes % (Manual) Seg Neutrophils # Man Lymphocytes # (Manual) PT INR D-Dimer POC ABG pH 7.206 L POC ABG pCO2 POC ABG pO2 75 L Sodium Chloride Carbon Dioxide BUN Creatinine Glucose POC Glucose 196 H Calcium AST ALT Total Protein Albumin Ur Specific [place] Urine WBC (Auto) HIV DNA Qual (PCR) HIV-1 RNA PCR copies/ml 9564909 H HIV-1 RNA (PCR) log 6.11 H 06/19/18 06/19/18 06/19/18 Unknown Unknown Unknown WBC 12.9 H RBC Hgb Hct Seg Neuts % (Manual) Lymphocytes % (Manual) 5.0 L Seg Neutrophils # Man Lymphocytes # (Manual) 0.6 L PT 15.9 H INR 1.19 H D-Dimer 8449.09 H POC ABG pH POC ABG pCO2 POC ABG pO2 Sodium 129 L Chloride 90.7 L Carbon Dioxide 17 L BUN Creatinine 0.6 L Glucose 199 H POC Glucose Calcium 8.1 L AST ALT Total Protein Albumin Ur Specific [place] Urine WBC (Auto) HIV DNA Qual (PCR) HIV-1 RNA PCR copies/ml HIV-1 RNA (PCR) log 06/19/18 06/20/18 06/20/18 Unknown 04:33 08:13 WBC 11.8 H RBC 3.25 L Hgb 9.8 L D Hct 30.4 L D Seg Neuts % (Manual) 99.0 H Lymphocytes % (Manual) 1.0 L Seg Neutrophils # Man 11.7 H Lymphocytes # (Manual) 0.1 L PT INR D-Dimer POC ABG pH 7.249 L POC ABG pCO2 POC ABG pO2 118 H Sodium Chloride Carbon Dioxide BUN Creatinine Glucose POC Glucose Calcium AST 53 H ALT Total Protein 6.0 L Albumin 2.8 L Ur Specific [place] Urine WBC (Auto) HIV DNA Qual (PCR) HIV-1 RNA PCR copies/ml HIV-1 RNA (PCR) log 06/20/18 06/20/18 06/20/18 08:13 12:59 17:42 WBC RBC Hgb Hct Seg Neuts % (Manual) Lymphocytes % (Manual) Seg Neutrophils # Man Lymphocytes # (Manual) PT INR D-Dimer POC ABG pH POC ABG pCO2 POC ABG pO2 Sodium Chloride Carbon Dioxide 19 L BUN Creatinine Glucose 223 H POC Glucose 174 H 177 H Calcium 6.6 L D AST 1240 H ALT 836 H Total Protein 4.9 L Albumin 2.1 L Ur Specific [place] Urine WBC (Auto) HIV DNA Qual (PCR) HIV-1 RNA PCR copies/ml HIV-1 RNA (PCR) log 06/20/18 06/21/18 06/21/18 23:44 04:08 04:19 WBC 13.8 H RBC 3.02 L Hgb 9.2 L Hct 28.0 L Seg Neuts % (Manual) Lymphocytes % (Manual) Seg Neutrophils # Man Lymphocytes # (Manual) PT INR D-Dimer POC ABG pH 7.309 L POC ABG pCO2 POC ABG pO2 Sodium Chloride Carbon Dioxide BUN Creatinine Glucose POC Glucose 195 H Calcium AST ALT Total Protein Albumin Ur Specific [place] Urine WBC (Auto) HIV DNA Qual (PCR) HIV-1 RNA PCR copies/ml HIV-1 RNA (PCR) log 06/21/18 06/21/18 06/21/18 04:19 05:27 11:33 WBC RBC Hgb Hct Seg Neuts % (Manual) Lymphocytes % (Manual) Seg Neutrophils # Man Lymphocytes # (Manual) PT INR D-Dimer POC ABG pH POC ABG pCO2 POC ABG pO2 Sodium 135 L Chloride Carbon Dioxide 21 L BUN Creatinine 0.7 L Glucose 161 H POC Glucose 187 H 147 H Calcium 7.2 L AST 390 H ALT 622 H Total Protein 5.3 L Albumin 2.4 L Ur Specific [place] Urine WBC (Auto) HIV DNA Qual (PCR) HIV-1 RNA PCR copies/ml HIV-1 RNA (PCR) log 06/21/18 06/21/18 06/22/18 17:45 23:25 04:47 WBC 11.5 H RBC 2.93 L Hgb 9.0 L Hct 26.5 L Seg Neuts % (Manual) Lymphocytes % (Manual) Seg Neutrophils # Man Lymphocytes # (Manual) PT INR D-Dimer POC ABG pH POC ABG pCO2 POC ABG pO2 Sodium Chloride Carbon Dioxide BUN Creatinine Glucose POC Glucose 172 H 152 H Calcium AST ALT Total Protein Albumin Ur Specific [place] Urine WBC (Auto) HIV DNA Qual (PCR) HIV-1 RNA PCR copies/ml HIV-1 RNA (PCR) log 06/22/18 06/22/18 06/22/18 04:47 05:23 11:43 WBC RBC Hgb Hct Seg Neuts % (Manual) Lymphocytes % (Manual) Seg Neutrophils # Man Lymphocytes # (Manual) PT INR D-Dimer POC ABG pH POC ABG pCO2 POC ABG pO2 Sodium Chloride Carbon Dioxide BUN 22 H Creatinine Glucose 201 H POC Glucose 170 H 175 H Calcium 7.8 L AST 129 H ALT 416 H Total Protein 5.3 L Albumin 2.4 L Ur Specific [place] Urine WBC (Auto) HIV DNA Qual (PCR) HIV-1 RNA PCR copies/ml HIV-1 RNA (PCR) log 06/22/18 17:45 WBC RBC Hgb Hct Seg Neuts % (Manual) Lymphocytes % (Manual) Seg Neutrophils # Man Lymphocytes # (Manual) PT INR D-Dimer POC ABG pH POC ABG pCO2 POC ABG pO2 Sodium Chloride Carbon Dioxide BUN Creatinine Glucose POC Glucose 176 H Calcium AST ALT Total Protein Albumin Ur Specific [place] Urine WBC (Auto) HIV DNA Qual (PCR) HIV-1 RNA PCR copies/ml HIV-1 RNA (PCR) log Chest x-ray: image reviewed (persistent dense bilateral infiltrates) CT scan - chest: image reviewed (dense bibasilar consilidation ) Allied health notes reviewed: nursing
[2018-06-22] MEDS ORDERED: NACL 0.45% 1,000 ML IV SCH (20:00)
[2018-06-22] MEDS: NACL 0.45% 1000 ML 1,000 ML IV SCH (20:12)
[2018-06-22] MEDS: MIDAZOLAM 100 MG in NACL 0.9% 80 ML IV SCH (20:15)
[2018-06-23] MEDS: NACL 0.9% IV SCH ×3 (00:21→21:48)
[2018-06-23] MEDS: VFEND IV SCH ×3 (00:21→21:48)
[2018-06-23] MEDS: D5W IV SCH ×4 (00:22→17:25)
[2018-06-23] MEDS: BACTRIM IV SCH ×4 (00:22→17:25)
[2018-06-23] MEDS: HumaLOG SUB-Q SCH ×4 (00:33→17:25)
[2018-06-23] MEDS: SODIUM CHLORIDE FLUSH SYRINGE 10 ML IV SCH ×2 (00:34→09:48)
[2018-06-23] MEDS: fentaNYL DRIP Premix 2,000 MCG/100 ML BAG IV SCH ×3 (02:53→16:44)
[2018-06-23 05:30] LABS: Hematocrit 25.3 % (35.5-45.6); Hemoglobin 8.6 gm/dl (11.8-15.2); Mean Corpuscular HGB Conc 34 % (32-34); Mean Corpuscular Volume 91 fl (84-94); Platelet Count 225 K/mm3 (140-440); Red Blood Count 2.78 M/mm3 (3.65-5.03)
[2018-06-23 05:49] LABS: Alanine Aminotransferase 297 units/L (7-56); Albumin 2.4 g/dL (3.9-5); BUN/Creatinine Ratio 20; Blood Urea Nitrogen 34 mg/dL (9-20); Calcium 7.5 mg/dL (8.4-10.2); Hemolysis Index 4
--- NOTE | 2018-06-23 07:37 | XRay Report ---
FINAL REPORT PROCEDURE: XR CHEST 1V AP TECHNIQUE: Chest radiograph anteroposterior view. CPT 81610 HISTORY: follow up respiratory failure COMPARISON: 06/22/2018 FINDINGS: Heart: Normal. Mediastinum/Vessels: Normal. Lungs/Pleural space: There is bilateral perihilar pulmonary edema.. There are no effusions or pneumothoraces. Bony thorax: No acute osseous abnormality. Life support devices: There is an endotracheal tube. The the tip is 7 centimeters above the [place]. There NG tube in the stomach. There is a right-sided central venous catheter. The tip is in the superior vena cava.. IMPRESSION: The heart size is normal.. There is bilateral perihilar pulmonary edema.. There are no effusions or pneumothoraces. There is an endotracheal tube. The the tip is 7 centimeters above the [place]. There NG tube in the stomach. There is a right-sided central venous catheter. The tip is in the superior vena cava..
[2018-06-23] MEDS: NACL 0.45% 1000 ML 1,000 ML IV SCH ×2 (09:46→23:17)
[2018-06-23] MEDS: TAMIFLU PO SCH ×2 (09:47→21:57)
[2018-06-23] MEDS: LOVENOX SUB-Q SCH ×2 (09:47→21:56)
[2018-06-23] MEDS: LEVAQUIN 750MG/150ML 750 MG/150 ML BAG IV SCH (09:47)
[2018-06-23] MEDS: SOLU-Medrol IV SCH ×2 (09:48→21:56)
[2018-06-23] MEDS: PEPCID PO SCH ×2 (09:48→21:56)
[2018-06-23] MEDS ORDERED: NACL 0.9% 1000 ML 1,000 ML IV ONE (10:02)
--- NOTE | 2018-06-23 10:04 | Progress Note ---
Assessment and Plan Assessment and plan: 32-year-old man with hypertension comes emergency room with complaints of shortness of breath, cough for 3days. He was found to have extensive bilateral pneumonia, placed on BiPAP but he failed. The patient had to be intubated. , ROS unobtainable. Altered bedside stated that the patient has very depressed since March, his at that time. He has been eating very little Acute respiratory failure with hypoxia requiring full mechanical ventilatory support Sepsis secondary to bilateral pneumonia Excessive bilateral pneumonia HIV Hyponatremia JENNIFER ?vasmotor nephropathy vs LAB ERROR. Repeat Severe metabolic acidosis shock liver-Improving Plan of care Continue full ventilatory support as directed by sales representative electric service Continue antibiotics/ antifungal as recommended by ID fungal culture ongoing. Since patient is from [place] ECHO ordered and pending CT chest when stable VAP precautions agree with continuation of Tamiflu till flu PCR is also noted. Awaiting family to assist with patient's medical history and any home medications DVT and GI prophylaxis Case discussed with nursing staff. No family present The high probability of a clinically significant, sudden or life threatening deterioration of the [Pulmonary] system(s) required my full and direct attention, intervention and personal management. The aggregate critical care time was [35] minutes. This time is in addition to time spent performing reported procedures but includes the following: [x] Data Review and interpretation [x] Patient assessment and monitoring of vital signs [x] Documentation [x] Medication orders and management History Interval history: Patient seen and examined grimace a full ventilatory support Hospitalist Physical - Physical exam Narrative exam: VITAL SIGNS: Reviewed. GENERAL: The patient appeared well nourished and normally developed. Full [facility] anical ventilation Vital signs as documented. HEAD: No signs of head trauma. EYES: Pupils are equal. Extraocular motions intact. EARS: Hearing grossly intact. MOUTH: ETT NECK: No adenopathy, no JVD. CHEST: Chest with clear breath sounds bilaterally. No wheezes, rales, or rhonchi. CARDIAC: Regular rate and rhythm. S1 and S2, without murmurs, gallops, or rubs. VASCULAR: No Edema. Peripheral pulses normal and equal in all extremities. ABDOMEN: Soft, without detectable tenderness. No sign of distention. No rebound or guarding, and no masses palpated. Bowel Sounds normal. MUSCULOSKELETAL: . Extremities without clubbing, cyanosis or edema. NEUROLOGIC EXAM: awake, orientation unable to assess. s. PSYCHIATRIC: Mood unable to assess SKIN: No rash or lesions. - Constitutional Vitals: Temp Pulse Resp BP Pulse Ox 98.9 F 125 H 29 H 114/77 89 06/23/18 08:00 06/23/18 09:01 06/23/18 09:01 06/23/18 09:01 06/23/18 09:01 Results - Labs CBC & Chem 7: 06/23/18 05:11 06/23/18 13:57 Labs: Laboratory Last Values WBC 11.2 K/mm3 (4.5-11.0) H 06/23/18 05:11 RBC 2.78 M/mm3 (3.65-5.03) L 06/23/18 05:11 Hgb 8.6 gm/dl (11.8-15.2) L 06/23/18 05:11 Hct 25.3 % (35.5-45.6) L 06/23/18 05:11 MCV 91 fl (84-94) 06/23/18 05:11 MCH 31 pg (28-32) 06/23/18 05:11 MCHC 34 % (32-34) 06/23/18 05:11 RDW 14.0 % (13.2-15.2) 06/23/18 05:11 Plt Count 225 K/mm3 (140-440) 06/23/18 05:11 Add Manual Diff Complete 06/20/18 08:13 Total Counted 100 06/20/18 08:13 Seg Neutrophils % Car Head Liner Installer 06/20/18 08:13 Seg Neuts % (Manual) 99.0 % (40.0-70.0) H 06/20/18 08:13 Band Neutrophils % 0 % 06/20/18 08:13 Lymphocytes % (Manual) 1.0 % (13.4-35.0) L 06/20/18 08:13 Reactive Lymphs % (Man) 0 % 06/20/18 08:13 Monocytes % (Manual) 0 % (0.0-7.3) 06/20/18 08:13 Eosinophils % (Manual) 0 % (0.0-4.3) 06/20/18 08:13 Basophils % (Manual) 0 % (0.0-1.8) 06/20/18 08:13 Metamyelocytes % 0 % 06/20/18 08:13 Myelocytes % 0 % 06/20/18 08:13 Promyelocytes % 0 % 06/20/18 08:13 Blast Cells % 0 % 06/20/18 08:13 Nucleated RBC % Not Reportable 06/20/18 08:13 Seg Neutrophils # Man 11.7 K/mm3 (1.8-7.7) H 06/20/18 08:13 Band Neutrophils # 0.0 K/mm3 06/20/18 08:13 Lymphocytes # (Manual) 0.1 K/mm3 (1.2-5.4) L 06/20/18 08:13 Abs React Lymphs (Man) 0.0 K/mm3 06/20/18 08:13 Monocytes # (Manual) 0.0 K/mm3 (0.0-0.8) 06/20/18 08:13 Eosinophils # (Manual) 0.0 K/mm3 (0.0-0.4) 06/20/18 08:13 Basophils # (Manual) 0.0 K/mm3 (0.0-0.1) 06/20/18 08:13 Metamyelocytes # 0.0 K/mm3 06/20/18 08:13 Myelocytes # 0.0 K/mm3 06/20/18 08:13 Promyelocytes # 0.0 K/mm3 06/20/18 08:13 Blast Cells # 0.0 K/mm3 06/20/18 08:13 WBC Morphology Not Reportable 06/20/18 08:13 Hypersegmented Neuts Not Reportable 06/20/18 08:13 Hyposegmented Neuts Not Reportable 06/20/18 08:13 Hypogranular Neuts Not Reportable 06/20/18 08:13 Smudge Cells Not Reportable 06/20/18 08:13 Toxic Granulation Not Reportable 06/20/18 08:13 Toxic Vacuolation Not Reportable 06/20/18 08:13 Dohle Bodies Not Reportable 06/20/18 08:13 Pelger-Huet Anomaly Not Reportable 06/20/18 08:13 Loretta Rods Not Reportable 06/20/18 08:13 Platelet Estimate Consistent w auto 06/20/18 08:13 Clumped Platelets Not Reportable 06/20/18 08:13 Plt Clumps, EDTA Not Reportable 06/20/18 08:13 Large Platelets Not Reportable 06/20/18 08:13 Giant Platelets Not Reportable 06/20/18 08:13 Platelet Satelliting Not Reportable 06/20/18 08:13 Plt Morphology Comment Not Reportable 06/20/18 08:13 RBC Morphology Not Reportable 06/20/18 08:13 Dimorphic RBCs Not Reportable 06/20/18 08:13 Polychromasia Not Reportable 06/20/18 08:13 Hypochromasia Not Reportable 06/20/18 08:13 Poikilocytosis 1+ 06/20/18 08:13 Anisocytosis 1+ 06/20/18 08:13 Microcytosis Not Reportable 06/20/18 08:13 Macrocytosis Not Reportable 06/20/18 08:13 Spherocytes Not Reportable 06/20/18 08:13 Pappenheimer Bodies Not Reportable 06/20/18 08:13 Sickle Cells Not Reportable 06/20/18 08:13 Target Cells Not Reportable 06/20/18 08:13 Tear Drop Cells Not Reportable 06/20/18 08:13 Ovalocytes 1+ 06/20/18 08:13 Helmet Cells Not Reportable 06/20/18 08:13 [place] Bodies Not Reportable 06/20/18 08:13 [place] Rings Not Reportable 06/20/18 08:13 [place] Cells Not Reportable 06/20/18 08:13 Bite Cells Not Reportable 06/20/18 08:13 Crenated Cell Not Reportable 06/20/18 08:13 Elliptocytes Not Reportable 06/20/18 08:13 Acanthocytes (Spur) Not Reportable 06/20/18 08:13 Rouleaux Not Reportable 06/20/18 08:13 Hemoglobin C Crystals Not Reportable 06/20/18 08:13 Schistocytes Not Reportable 06/20/18 08:13 Malaria parasites Not Reportable 06/20/18 08:13 Jesus Bodies Not Reportable 06/20/18 08:13 Hem Pathologist Commnt No 06/20/18 08:13 PT 15.9 Sec. (12.2-14.9) H 06/19/18 Unknown INR 1.19 (0.87-1.13) H 06/19/18 Unknown APTT 28.7 Sec. (24.2-36.6) 06/19/18 Unknown D-Dimer 8449.09 ng/mlDDU (0-234) H 06/19/18 Unknown POC ABG pH 7.357 (7.35-7.45) 06/23/18 05:51 POC ABG pCO2 40.3 (35-45) 06/23/18 05:51 POC ABG pO2 69 (80-105) L 06/23/18 05:51 POC ABG HCO3 22.6 06/23/18 05:51 POC ABG Total CO2 24 06/23/18 05:51 POC ABG O2 Sat 93 06/23/18 05:51 POC ABG Base Excess -3 06/23/18 05:51 FiO2 60 % 06/23/18 05:51 Sodium 141 mmol/L (137-145) 06/23/18 05:11 Potassium 4.9 mmol/L (3.6-5.0) 06/23/18 05:11 Chloride 106.0 mmol/L (98-107) 06/23/18 05:11 Carbon Dioxide 22 mmol/L (22-30) 06/23/18 05:11 Anion Gap 18 mmol/L 06/23/18 05:11 BUN 34 mg/dL (9-20) H 06/23/18 05:11 Creatinine 1.7 mg/dL (0.8-1.5) H D 06/23/18 05:11 Estimated GFR 47 ml/min 06/23/18 05:11 BUN/Creatinine Ratio 20 % 06/23/18 05:11 Glucose 191 mg/dL (75-100) H 06/23/18 05:11 POC Glucose 182 (70-105) H 06/23/18 05:06 Lactic Acid 1.70 mmol/L (0.7-2.0) 06/19/18 05:26 Calcium 7.5 mg/dL (8.4-10.2) L 06/23/18 05:11 Total Bilirubin < 0.20 mg/dL (0.1-1.2) 06/23/18 05:11 Direct Bilirubin < 0.2 mg/dL (0-0.2) 06/19/18 Unknown Indirect Bilirubin 0.2 mg/dL 06/19/18 Unknown AST 63 units/L (5-40) H 06/23/18 05:11 ALT 297 units/L (7-56) H 06/23/18 05:11 Alkaline Phosphatase 127 units/L (35-129) 06/23/18 05:11 Troponin T < 0.010 ng/mL (0.00-0.029) 06/19/18 Unknown NT-Pro-B Natriuret Pep 226.4 pg/mL (0-450) 06/19/18 Unknown Total Protein 5.3 g/dL (6.3-8.2) L 06/23/18 05:11 Albumin 2.4 g/dL (3.9-5) L 06/23/18 05:11 Albumin/Globulin Ratio 0.8 % 06/23/18 05:11 Urine Color Yellow (Yellow) 06/19/18 08:07 Urine Turbidity Clear (Clear) 06/19/18 08:07 Urine pH 5.0 (5.0-7.0) 06/19/18 08:07 Ur Specific [place] 1.060 (1.003-1.030) H 06/19/18 08:07 Urine Protein 100 mg/dl mg/dL (Negative) 06/19/18 08:07 Urine Glucose (UA) Neg mg/dL (Negative) 06/19/18 08:07 Urine Ketones Neg mg/dL (Negative) 06/19/18 08:07 Urine Blood Sm (Negative) 06/19/18 08:07 Urine Nitrite Neg (Negative) 06/19/18 08:07 Urine Bilirubin Neg (Negative) 06/19/18 08:07 Urine Urobilinogen < 2.0 mg/dL (<2.0) 06/19/18 08:07 Ur Leukocyte Esterase Neg (Negative) 06/19/18 08:07 Urine WBC (Auto) 8.0 /HPF (0.0-6.0) H 06/19/18 08:07 Urine RBC (Auto) 35.0 /HPF (0.0-6.0) 06/19/18 08:07 U Epithel Cells (Auto) < 1.0 /HPF (0-13.0) 06/19/18 08:07 Urine Mucus Few /HPF 06/19/18 08:07 Urine Opiates Screen Presumptive negative 06/19/18 08:06 Urine Methadone Screen Presumptive negative 06/19/18 08:06 Ur Barbiturates Screen Presumptive negative 06/19/18 08:06 Ur Phencyclidine Scrn Presumptive negative 06/19/18 08:06 Ur Amphetamines Screen Presumptive negative 06/19/18 08:06 U Benzodiazepines Scrn Presumptive positive 06/19/18 08:06 Urine Cocaine Screen Presumptive negative 06/19/18 08:06 U Marijuana (THC) Screen Presumptive negative 06/19/18 08:06 Drugs of Abuse Note Disclamer 06/19/18 08:06 Hepatitis A IgM Ab Non-reactive (NonReactive) 06/21/18 04:19 Hep Bs Antigen Non-reactive (Negative) 06/21/18 04:19 Hep B Core IgM Ab Non-reactive (NonReactive) 06/21/18 04:19 Hepatitis C Antibody Non-reactive (NonReactive) 06/21/18 04:19 HIV DNA Qual (PCR) Detected (Not Detected) H 06/19/18 09:20 HIV-1 Antibody See scanned results 06/19/18 07:12 HIV-1 RNA PCR copies/ml [id number] Copies/mL H 06/19/18 15:16 HIV-1 RNA (PCR) log 6.11 Log cps/mL H 06/19/18 15:16 HIV-2 Ab (Immunoblot) See scanned results 06/19/18 07:12 HIV 1&2 Antibody Rapid Reactive (Non React) 06/19/18 07:10 HIV P24 Antigen Invalid (Non React) 06/19/18 07:10 Influenza A (Rapid) Negative (Negative) 06/19/18 Unknown Influenza A (RT-PCR) Negative (Negative) 06/21/18 12:30 Influenza B (Rapid) Negative (Negative) 06/19/18 Unknown Influenza B (RT-PCR) Negative (Negative) 06/21/18 12:30 Miscellaneous Test see below H 06/21/18 12:32 Nutrition/Malnutrition Assess - Dietary Evaluation Nutrition/Malnutrition Findings: Nutrition Notes Start: 06/19/18 14:17 Freq: Status: Active Protocol: Document 06/21/18 12:47 CT (Rec: 06/21/18 14:14 CT [id number]) Co-Sign 06/21/18 12:47 LP Nutrition Notes Initial or Follow up Reassessment Current Diagnosis Hypertension Other Pertinent Diagnosis SOB, bilateral pneumonia, HIV Current Diet TF- Osmolite 1.5 @60mls/hr Labs/Tests Na: 135 Cr: 0.7 B Pertinent Medications Reviewed. Height 5 ft 9 in Weight 78.4 kg [place] Body Weight (kg) 72.72 BMI 25.5 Weight Status Overweight Subjective/Other Information Observed TF infusing at 50mls/ hr. Spoke with RN who reported pt is tolerating TF well and ina soon be advanced to goal. Percent of needs met calculated based on 50ml/hr Percent of energy/protein needs met: 83%81/% Burn Absent Trauma Absent #1 Nutrition Diagnosis Inadequate oral intake Diagnosis Progress(for reassessment Continues documentation) Is patient on ventilator? Yes Is Patient Ambulatory and/or Out of Bed No REE-([place]-confined to bed) [phone] Calculation Used for Recommendations [facility] Additional Notes PRO: 93 - 154g PRO (1.2 - 2g KG ABW) fluid: 1 ml/kcal Nutrition Intervention Change Diet Order: Continue TF Nutrition Support: Osmolite 1.5 at 60mL/hr with 175mL flush q4h Kcal 2,169 Protein (gm) 90 Carbohydrates (gm) 293 Fat (gm) 70 Fluid (mL) 1,097 Fiber (gm) 0 Goal #1 TF at goal Goal #2 TF to meet 80-100% of kcal and protein needs. Anticipated Discharge Needs: Unable to determine at this time Follow-Up By: 06/26/18 Additional Comments F/U: TF at goal rate
[2018-06-23] MEDS: ROCEPHIN/NS 2 GM/100 ML 2 GM/100 ML BAG IV SCH (10:06)
[2018-06-23 14:49] LABS: CD4/CD8 Ratio 0.05 (0.86-5.00)
[2018-06-23] MEDS: MIDAZOLAM 100 MG in NACL 0.9% 80 ML IV SCH (16:47)
--- NOTE | 2018-06-23 17:49 | Progress Note ---
Assessment and Plan Acute Hypoxemic Respiratory Failure on MVS AIDS / HIV positive Severe Sepsis due to Pneumonia Hyponatremia Severe metabolic acidosis Shock liver - reduce set rate to 20/min - repeat ABG at 9 pm tonight - continue Peep of 12 to recruit alveolii - Cytology negative for PCP - Voriconazole added per ID rec's - follow 2D ECHO re: ? bilateral pulmonary edema - increased seroquel further to 300mg bid to aid weaning off IV sedatives - reduce versed to 1mg/hr and reduced fentanyl to 3 mics/kg/hr - continue to titrate sedatives for RASS 0 to -1 - continue anti-infective's per ID recommendations - complete empiric TamiFlu - get CRP and lactate levels and trend as necessary to aid clinical decision making - continue to wean supplemental oxygen to keep O2 sats > 90% - continue bronchodilators with pulmonary hygiene per RT - continue hyperventilation acutely to compensate for metabolic acidosis - VAP bundle addressed - daily SAT's - Daily SBT assessment - GI & VTE prophylaxis - enteral nutrition as tolerated - continue accuchecks q6h with glycemic control per SSI for target BG 140-180 mg/dL - continue other care per attending / other product development consultant's .... re-evaluate in am & prn ... care plan discussed with family in room CODE STATUS: FULL CODE The high probability of a clinically significant, sudden or life-threatening deterioration of the [cardiac, neurology] system(s) required my full and direct attention, intervention and personal management. The aggregate critical care time was [35] minutes without overlap. Time includes spent on; [x] Data Review and interpretation [x] Patient assessment and monitoring of vital signs [x] Documentation [x] Medication orders and management Subjective Date of service: 06/23/18 Principal diagnosis: Acute Hypoxemic Resp Failure; AIDS / HIV positive; Severe Sepsis due to PNA Interval history: Patient is seen today for: Acute Hypoxemic Respiratory Failure on MVS; AIDS / HIV positive; Severe Sepsis due to Pneumonia; Hyponatremia; Severe metabolic acidosis Seen and examined at bedside; 24hour events reviewed; nursing and respiratory care staff consulted; no adverse overnight events reported to me; remains on MVS; parents visiting; acidosis better; still incoherent during sedation vacations; no emesis or overt aspiration; parents unfortunately unable to add much to the history Objective Vital Signs - 12hr 06/23/18 06/23/18 06/23/18 05:51 06:01 07:00 Temperature Pulse Rate 114 H 114 H 109 H Respiratory 31 H 25 H Rate Blood Pressure 126/80 115/73 119/80 O2 Sat by Pulse 91 91 91 Oximetry 06/23/18 06/23/18 06/23/18 07:51 08:00 08:01 Temperature 98.9 F Pulse Rate 115 H 126 H 120 H Respiratory 26 H 30 H Rate Blood Pressure 119/80 109/77 O2 Sat by Pulse 94 95 88 Oximetry 06/23/18 06/23/18 06/23/18 09:01 10:01 11:01 Temperature Pulse Rate 125 H 120 H 130 H Respiratory 29 H 28 H 27 H Rate Blood Pressure 114/77 131/76 118/70 O2 Sat by Pulse 89 90 91 Oximetry 06/23/18 06/23/18 06/23/18 11:22 12:00 13:00 Temperature 99.3 F Pulse Rate 132 H 130 H 119 H Respiratory 26 H 24 Rate Blood Pressure 118/70 114/71 112/70 O2 Sat by Pulse 93 89 90 Oximetry 06/23/18 06/23/18 06/23/18 14:00 15:00 16:00 Temperature 98.2 F 98.2 F Pulse Rate 119 H 121 H 125 H Respiratory 22 22 30 H Rate Blood Pressure 110/68 125/69 O2 Sat by Pulse 91 91 95 Oximetry 06/23/18 06/23/18 16:01 16:23 Temperature Pulse Rate 120 H 133 H Respiratory 22 Rate Blood Pressure 104/63 104/63 O2 Sat by Pulse 92 93 Oximetry Constitutional: appears uncomfortable, other (young HM normocephalic and atraumatic with moderately increased respiratory effort at rest) Eyes: non-icteric ENT: oropharynx moist, other (ETT 23 cm SATISH) Neck: supple, no lymphadenopathy, no JVD, other (no thyromegaly) Effort: mildly labored Ascultation: Bilateral: diminished breath sounds, rhonchi Percussion: Bilateral: not dull Cardiovascular: regular rate and rhythm Gastrointestinal: normoactive bowel sounds, soft, non-tender, non-distended Integumentary: rash Extremities: no cyanosis, pink and warm, pulses normal, no ischemia or petechiae, edema (trace) Neurologic: non-focal exam (grossly), pupils equal and round, motor strength normal and, unable to assess Psychiatric: other (unable to assess) CBC and BMP: 06/23/18 05:11 06/23/18 13:57 ABG, PT/INR, D-dimer: ABG POC ABG pH 7.357 (7.35-7.45) 06/23/18 05:51 POC ABG pCO2 40.3 (35-45) 06/23/18 05:51 POC ABG pO2 69 (80-105) L 06/23/18 05:51 POC ABG HCO3 22.6 06/23/18 05:51 POC ABG Total CO2 24 06/23/18 05:51 POC ABG O2 Sat 93 06/23/18 05:51 PT/INR, D-dimer PT 15.9 Sec. (12.2-14.9) H 06/19/18 Unknown INR 1.19 (0.87-1.13) H 06/19/18 Unknown D-Dimer 8449.09 ng/mlDDU (0-234) H 06/19/18 Unknown Abnormal lab findings: Abnormal Labs 06/19/18 06/19/18 06/19/18 03:31 07:11 07:42 WBC RBC Hgb Hct Seg Neuts % (Manual) Lymphocytes % (Manual) Seg Neutrophils # Man Abs Lymphs (Manual) 409 L Lymphocytes # (Manual) PT INR D-Dimer POC ABG pH 6.974 L POC ABG pCO2 22.0 L 83.4 H POC ABG pO2 28 L 122 H Sodium Chloride Carbon Dioxide BUN Creatinine Glucose POC Glucose Calcium AST ALT Total Protein Albumin Ur Specific [place] Urine WBC (Auto) Lymph Enumerat CD4/CD8 0.05 L % CD3 Cells 45 L Absolute CD3 Count 185 L % CD4 Cells 2 L Absolute CD4 Count 10 L % CD8 Cells 43 H Absolute CD8 Count 167 L Absolute CD19 Count 79 L HIV DNA Qual (PCR) HIV-1 RNA PCR copies/ml HIV-1 RNA (PCR) log Miscellaneous Test 06/19/18 06/19/18 06/19/18 08:07 08:16 09:20 WBC RBC Hgb Hct Seg Neuts % (Manual) Lymphocytes % (Manual) Seg Neutrophils # Man Abs Lymphs (Manual) Lymphocytes # (Manual) PT INR D-Dimer POC ABG pH 6.996 L POC ABG pCO2 82.4 H POC ABG pO2 Sodium Chloride Carbon Dioxide BUN Creatinine Glucose POC Glucose Calcium AST ALT Total Protein Albumin Ur Specific [place] 1.060 H Urine WBC (Auto) 8.0 H Lymph Enumerat CD4/CD8 % CD3 Cells Absolute CD3 Count % CD4 Cells Absolute CD4 Count % CD8 Cells Absolute CD8 Count Absolute CD19 Count HIV DNA Qual (PCR) Detected H HIV-1 RNA PCR copies/ml HIV-1 RNA (PCR) log Miscellaneous Test 06/19/18 06/19/18 06/19/18 09:49 11:15 15:16 WBC RBC Hgb Hct Seg Neuts % (Manual) Lymphocytes % (Manual) Seg Neutrophils # Man Abs Lymphs (Manual) Lymphocytes # (Manual) PT INR D-Dimer POC ABG pH 7.198 L 7.206 L POC ABG pCO2 POC ABG pO2 75 L Sodium Chloride Carbon Dioxide BUN Creatinine Glucose POC Glucose Calcium AST ALT Total Protein Albumin Ur Specific [place] Urine WBC (Auto) Lymph Enumerat CD4/CD8 % CD3 Cells Absolute CD3 Count % CD4 Cells Absolute CD4 Count % CD8 Cells Absolute CD8 Count Absolute CD19 Count HIV DNA Qual (PCR) HIV-1 RNA PCR copies/ml 1319557 H HIV-1 RNA (PCR) log 6.11 H Miscellaneous Test 06/19/18 06/19/18 06/19/18 18:54 Unknown Unknown WBC 12.9 H RBC Hgb Hct Seg Neuts % (Manual) Lymphocytes % (Manual) 5.0 L Seg Neutrophils # Man Abs Lymphs (Manual) Lymphocytes # (Manual) 0.6 L PT 15.9 H INR 1.19 H D-Dimer 8449.09 H POC ABG pH POC ABG pCO2 POC ABG pO2 Sodium Chloride Carbon Dioxide BUN Creatinine Glucose POC Glucose 196 H Calcium AST ALT Total Protein Albumin Ur Specific [place] Urine WBC (Auto) Lymph Enumerat CD4/CD8 % CD3 Cells Absolute CD3 Count % CD4 Cells Absolute CD4 Count % CD8 Cells Absolute CD8 Count Absolute CD19 Count HIV DNA Qual (PCR) HIV-1 RNA PCR copies/ml HIV-1 RNA (PCR) log Miscellaneous Test 06/19/18 06/19/18 06/20/18 Unknown Unknown 04:33 WBC RBC Hgb Hct Seg Neuts % (Manual) Lymphocytes % (Manual) Seg Neutrophils # Man Abs Lymphs (Manual) Lymphocytes # (Manual) PT INR D-Dimer POC ABG pH 7.249 L POC ABG pCO2 POC ABG pO2 118 H Sodium 129 L Chloride 90.7 L Carbon Dioxide 17 L BUN Creatinine 0.6 L Glucose 199 H POC Glucose Calcium 8.1 L AST 53 H ALT Total Protein 6.0 L Albumin 2.8 L Ur Specific [place] Urine WBC (Auto) Lymph Enumerat CD4/CD8 % CD3 Cells Absolute CD3 Count % CD4 Cells Absolute CD4 Count % CD8 Cells Absolute CD8 Count Absolute CD19 Count HIV DNA Qual (PCR) HIV-1 RNA PCR copies/ml HIV-1 RNA (PCR) log Miscellaneous Test 06/20/18 06/20/18 06/20/18 08:13 08:13 12:59 WBC 11.8 H RBC 3.25 L Hgb 9.8 L D Hct 30.4 L D Seg Neuts % (Manual) 99.0 H Lymphocytes % (Manual) 1.0 L Seg Neutrophils # Man 11.7 H Abs Lymphs (Manual) Lymphocytes # (Manual) 0.1 L PT INR D-Dimer POC ABG pH POC ABG pCO2 POC ABG pO2 Sodium Chloride Carbon Dioxide 19 L BUN Creatinine Glucose 223 H POC Glucose 174 H Calcium 6.6 L D AST 1240 H ALT 836 H Total Protein 4.9 L Albumin 2.1 L Ur Specific [place] Urine WBC (Auto) Lymph Enumerat CD4/CD8 % CD3 Cells Absolute CD3 Count % CD4 Cells Absolute CD4 Count % CD8 Cells Absolute CD8 Count Absolute CD19 Count HIV DNA Qual (PCR) HIV-1 RNA PCR copies/ml HIV-1 RNA (PCR) log Miscellaneous Test 06/20/18 06/20/18 06/21/18 17:42 23:44 04:08 WBC RBC Hgb Hct Seg Neuts % (Manual) Lymphocytes % (Manual) Seg Neutrophils # Man Abs Lymphs (Manual) Lymphocytes # (Manual) PT INR D-Dimer POC ABG pH 7.309 L POC ABG pCO2 POC ABG pO2 Sodium Chloride Carbon Dioxide BUN Creatinine Glucose POC Glucose 177 H 195 H Calcium AST ALT Total Protein Albumin Ur Specific [place] Urine WBC (Auto) Lymph Enumerat CD4/CD8 % CD3 Cells Absolute CD3 Count % CD4 Cells Absolute CD4 Count % CD8 Cells Absolute CD8 Count Absolute CD19 Count HIV DNA Qual (PCR) HIV-1 RNA PCR copies/ml HIV-1 RNA (PCR) log Miscellaneous Test 06/21/18 06/21/18 06/21/18 04:19 04:19 05:27 WBC 13.8 H RBC 3.02 L Hgb 9.2 L Hct 28.0 L Seg Neuts % (Manual) Lymphocytes % (Manual) Seg Neutrophils # Man Abs Lymphs (Manual) Lymphocytes # (Manual) PT INR D-Dimer POC ABG pH POC ABG pCO2 POC ABG pO2 Sodium 135 L Chloride Carbon Dioxide 21 L BUN Creatinine 0.7 L Glucose 161 H POC Glucose 187 H Calcium 7.2 L AST 390 H ALT 622 H Total Protein 5.3 L Albumin 2.4 L Ur Specific [place] Urine WBC (Auto) Lymph Enumerat CD4/CD8 % CD3 Cells Absolute CD3 Count % CD4 Cells Absolute CD4 Count % CD8 Cells Absolute CD8 Count Absolute CD19 Count HIV DNA Qual (PCR) HIV-1 RNA PCR copies/ml HIV-1 RNA (PCR) log Miscellaneous Test 06/21/18 06/21/18 06/21/18 11:33 12:32 17:45 WBC RBC Hgb Hct Seg Neuts % (Manual) Lymphocytes % (Manual) Seg Neutrophils # Man Abs Lymphs (Manual) Lymphocytes # (Manual) PT INR D-Dimer POC ABG pH POC ABG pCO2 POC ABG pO2 Sodium Chloride Carbon Dioxide BUN Creatinine Glucose POC Glucose 147 H 172 H Calcium AST ALT Total Protein Albumin Ur Specific [place] Urine WBC (Auto) Lymph Enumerat CD4/CD8 % CD3 Cells Absolute CD3 Count % CD4 Cells Absolute CD4 Count % CD8 Cells Absolute CD8 Count Absolute CD19 Count HIV DNA Qual (PCR) HIV-1 RNA PCR copies/ml HIV-1 RNA (PCR) log Miscellaneous Test see below H 06/21/18 06/22/18 06/22/18 23:25 04:47 04:47 WBC 11.5 H RBC 2.93 L Hgb 9.0 L Hct 26.5 L Seg Neuts % (Manual) Lymphocytes % (Manual) Seg Neutrophils # Man Abs Lymphs (Manual) Lymphocytes # (Manual) PT INR D-Dimer POC ABG pH POC ABG pCO2 POC ABG pO2 Sodium Chloride Carbon Dioxide BUN 22 H Creatinine Glucose 201 H POC Glucose 152 H Calcium 7.8 L AST 129 H ALT 416 H Total Protein 5.3 L Albumin 2.4 L Ur Specific [place] Urine WBC (Auto) Lymph Enumerat CD4/CD8 % CD3 Cells Absolute CD3 Count % CD4 Cells Absolute CD4 Count % CD8 Cells Absolute CD8 Count Absolute CD19 Count HIV DNA Qual (PCR) HIV-1 RNA PCR copies/ml HIV-1 RNA (PCR) log Miscellaneous Test 06/22/18 06/22/18 06/22/18 05:23 11:43 17:45 WBC RBC Hgb Hct Seg Neuts % (Manual) Lymphocytes % (Manual) Seg Neutrophils # Man Abs Lymphs (Manual) Lymphocytes # (Manual) PT INR D-Dimer POC ABG pH POC ABG pCO2 POC ABG pO2 Sodium Chloride Carbon Dioxide BUN Creatinine Glucose POC Glucose 170 H 175 H 176 H Calcium AST ALT Total Protein Albumin Ur Specific [place] Urine WBC (Auto) Lymph Enumerat CD4/CD8 % CD3 Cells Absolute CD3 Count % CD4 Cells Absolute CD4 Count % CD8 Cells Absolute CD8 Count Absolute CD19 Count HIV DNA Qual (PCR) HIV-1 RNA PCR copies/ml HIV-1 RNA (PCR) log Miscellaneous Test 06/23/18 06/23/18 06/23/18 00:24 05:06 05:11 WBC 11.2 H RBC 2.78 L Hgb 8.6 L Hct 25.3 L Seg Neuts % (Manual) Lymphocytes % (Manual) Seg Neutrophils # Man Abs Lymphs (Manual) Lymphocytes # (Manual) PT INR D-Dimer POC ABG pH POC ABG pCO2 POC ABG pO2 Sodium Chloride Carbon Dioxide BUN Creatinine Glucose POC Glucose 178 H 182 H Calcium AST ALT Total Protein Albumin Ur Specific [place] Urine WBC (Auto) Lymph Enumerat CD4/CD8 % CD3 Cells Absolute CD3 Count % CD4 Cells Absolute CD4 Count % CD8 Cells Absolute CD8 Count Absolute CD19 Count HIV DNA Qual (PCR) HIV-1 RNA PCR copies/ml HIV-1 RNA (PCR) log Miscellaneous Test 06/23/18 06/23/18 06/23/18 05:11 05:51 12:21 WBC RBC Hgb Hct Seg Neuts % (Manual) Lymphocytes % (Manual) Seg Neutrophils # Man Abs Lymphs (Manual) Lymphocytes # (Manual) PT INR D-Dimer POC ABG pH POC ABG pCO2 POC ABG pO2 69 L Sodium Chloride Carbon Dioxide BUN 34 H Creatinine 1.7 H D Glucose 191 H POC Glucose 181 H Calcium 7.5 L AST 63 H ALT 297 H Total Protein 5.3 L Albumin 2.4 L Ur Specific [place] Urine WBC (Auto) Lymph Enumerat CD4/CD8 % CD3 Cells Absolute CD3 Count % CD4 Cells Absolute CD4 Count % CD8 Cells Absolute CD8 Count Absolute CD19 Count HIV DNA Qual (PCR) HIV-1 RNA PCR copies/ml HIV-1 RNA (PCR) log Miscellaneous Test 06/23/18 06/23/18 13:57 17:00 WBC RBC Hgb Hct Seg Neuts % (Manual) Lymphocytes % (Manual) Seg Neutrophils # Man Abs Lymphs (Manual) Lymphocytes # (Manual) PT INR D-Dimer POC ABG pH POC ABG pCO2 POC ABG pO2 Sodium Chloride Carbon Dioxide BUN 38 H Creatinine 1.8 H Glucose POC Glucose 196 H Calcium AST ALT Total Protein Albumin Ur Specific [place] Urine WBC (Auto) Lymph Enumerat CD4/CD8 % CD3 Cells Absolute CD3 Count % CD4 Cells Absolute CD4 Count % CD8 Cells Absolute CD8 Count Absolute CD19 Count HIV DNA Qual (PCR) HIV-1 RNA PCR copies/ml HIV-1 RNA (PCR) log Miscellaneous Test Allied health notes reviewed: nursing
[2018-06-24] MEDS: HumaLOG SUB-Q SCH ×4 (00:02→18:48)
[2018-06-24] MEDS: BACTRIM IV SCH ×4 (00:02→19:57)
[2018-06-24] MEDS: D5W IV SCH ×4 (00:02→19:57)
[2018-06-24] MEDS: fentaNYL DRIP Premix 2,000 MCG/100 ML BAG IV SCH ×3 (00:22→14:10)
[2018-06-24 04:36] LABS: Hematocrit 26.9 % (35.5-45.6); Hemoglobin 8.8 gm/dl (11.8-15.2); Mean Corpuscular HGB Conc 33 % (32-34); Mean Corpuscular Volume 93 fl (84-94); Platelet Count 248 K/mm3 (140-440); Red Blood Count 2.89 M/mm3 (3.65-5.03); Red Cell Distribution Width 14.8 % (13.2-15.2)
[2018-06-24 06:34] LABS: Calcium 7.5 mg/dL (8.4-10.2)
[2018-06-24] MEDS: NEO-SYNEPHRINE NS PRN (06:43)
[2018-06-24] MEDS: SODIUM CHLORIDE FLUSH SYRINGE 10 ML IV SCH ×3 (07:19→21:35)
[2018-06-24] MEDS: MIDAZOLAM 100 MG in NACL 0.9% 80 ML IV SCH (07:54)
[2018-06-24] MEDS ORDERED: LOPRESSOR IV ONE (08:21)
[2018-06-24] MEDS ORDERED: KIONEX PO ONE (08:21)
--- NOTE | 2018-06-24 10:30 | XRay Report ---
FINAL REPORT EXAM: XR CHEST 1V AP HISTORY: follow up respiratory failure TECHNIQUE: Frontal chest x-ray. PRIORS: Chest x-ray June 23, 2018. FINDINGS: Cardiac silhouette is within normal limits. Prominent bilateral pulmonary markings with airspace opacities. Focal patchy consolidation in the rig ht infrahilar region and left lower lobe. No pneumothorax. Slightly blunted bilateral costophrenic an gles. There are no suspicious osseous lesions. Right jugular central line tip is in the SVC. Enteric tube is in the stomach. Endotracheal tube tip is 6-6.5 cm above the bernard[place]. Satisfactory. IMPRESSION: Pulmonary findings suggest pulmonary vascular congestion with edema. Bibasilar consolidations may represent edema, infiltrates, or aspirates. Suspect small bilateral pleural effusions. Overall stable or slightly worse compared to prior.
[2018-06-24] MEDS: VFEND IV SCH ×2 (10:45→21:50)
[2018-06-24] MEDS: LEVAQUIN 750MG/150ML 750 MG/150 ML BAG IV SCH (10:45)
[2018-06-24] MEDS: SOLU-Medrol IV SCH ×2 (10:45→21:50)
[2018-06-24] MEDS: ROCEPHIN/NS 2 GM/100 ML 2 GM/100 ML BAG IV SCH (10:45)
[2018-06-24] MEDS: PEPCID PO SCH ×2 (10:45→21:50)
[2018-06-24] MEDS: NACL 0.9% IV SCH ×2 (10:45→21:50)
--- NOTE | 2018-06-24 12:19 | Progress Note ---
Assessment and Plan Assessment and plan: 32-year-old man with hypertension comes emergency room with complaints of shortness of breath, cough for 3days. He was found to have extensive bilateral pneumonia, placed on BiPAP but he failed. The patient had to be intubated. , ROS unobtainable. Altered bedside stated that the patient has very depressed since March, his at that time. He has been eating very little Acute respiratory failure with hypoxia requiring full mechanical ventilatory support Sepsis secondary to bilateral pneumonia Excessive bilateral pneumonia HIV Hyponatremia JENNIFER ?vasmotor nephropathy vs LAB ERROR. Repeat Severe metabolic acidosis shock liver-Improving Plan of care Continue full ventilatory support as directed by athletic director Continue antibiotics/ antifungal as recommended by ID fungal culture ongoing. Since patient is from [place] ECHO ordered and pending CT chest when stable VAP precautions agree with continuation of Tamiflu till flu PCR is also noted. Awaiting family to assist with patient's medical history and any home medications DVT and GI prophylaxis Case discussed with nursing staff. No family present The high probability of a clinically significant, sudden or life threatening deterioration of the [Pulmonary] system(s) required my full and direct attention, intervention and personal management. The aggregate critical care time was [35] minutes. This time is in addition to time spent performing reported procedures but includes the following: [x] Data Review and interpretation [x] Patient assessment and monitoring of vital signs [x] Documentation [x] Medication orders and management History Interval history: Patient seen and examined grimace a full ventilatory support Hospitalist Physical - Physical exam Narrative exam: VITAL SIGNS: Reviewed. GENERAL: The patient appeared well nourished and normally developed. Full [facility] ventilation Vital signs as documented. HEAD: No signs of head trauma. EYES: Pupils are equal. Extraocular motions intact. EARS: Hearing grossly intact. MOUTH: ETT NECK: No adenopathy, no JVD. CHEST: Chest with clear breath sounds bilaterally. No wheezes, rales, or rhonchi. CARDIAC: Regular rate and rhythm. S1 and S2, without murmurs, gallops, or rubs. VASCULAR: No Edema. Peripheral pulses normal and equal in all extremities. ABDOMEN: Soft, without detectable tenderness. No sign of distention. No rebound or guarding, and no masses palpated. Bowel Sounds normal. MUSCULOSKELETAL: . Extremities without clubbing, cyanosis or edema. NEUROLOGIC EXAM: awake, orientation unable to assess. s. PSYCHIATRIC: Mood unable to assess SKIN: No rash or lesions. - Constitutional Vitals: Temp Pulse Resp BP Pulse Ox 98.7 F 120 H 19 128/69 95 06/24/18 12:00 06/24/18 11:41 06/24/18 08:00 06/24/18 11:41 06/24/18 11:41 Results - Labs CBC & Chem 7: 06/24/18 04:12 06/24/18 04:12 Labs: Laboratory Last Values WBC 10.7 K/mm3 (4.5-11.0) 06/24/18 04:12 RBC 2.89 M/mm3 (3.65-5.03) L 06/24/18 04:12 Hgb 8.8 gm/dl (11.8-15.2) L 06/24/18 04:12 Hct 26.9 % (35.5-45.6) L 06/24/18 04:12 MCV 93 fl (84-94) 06/24/18 04:12 MCH 31 pg (28-32) 06/24/18 04:12 MCHC 33 % (32-34) 06/24/18 04:12 RDW 14.8 % (13.2-15.2) 06/24/18 04:12 Plt Count 248 K/mm3 (140-440) 06/24/18 04:12 Add Manual Diff Complete 06/20/18 08:13 Total Counted 100 06/20/18 08:13 Seg Neutrophils % [place]/[employer]ment Worker 06/20/18 08:13 Seg Neuts % (Manual) 99.0 % (40.0-70.0) H 06/20/18 08:13 Band Neutrophils % 0 % 06/20/18 08:13 Lymphocytes % (Manual) 1.0 % (13.4-35.0) L 06/20/18 08:13 Reactive Lymphs % (Man) 0 % 06/20/18 08:13 Monocytes % (Manual) 0 % (0.0-7.3) 06/20/18 08:13 Eosinophils % (Manual) 0 % (0.0-4.3) 06/20/18 08:13 Basophils % (Manual) 0 % (0.0-1.8) 06/20/18 08:13 Metamyelocytes % 0 % 06/20/18 08:13 Myelocytes % 0 % 06/20/18 08:13 Promyelocytes % 0 % 06/20/18 08:13 Blast Cells % 0 % 06/20/18 08:13 Nucleated RBC % Not Reportable 06/20/18 08:13 Seg Neutrophils # Man 11.7 K/mm3 (1.8-7.7) H 06/20/18 08:13 Band Neutrophils # 0.0 K/mm3 06/20/18 08:13 Abs Lymphs (Manual) 409 cells/uL (850-3900) L 06/19/18 07:11 Lymphocytes # (Manual) 0.1 K/mm3 (1.2-5.4) L 06/20/18 08:13 Abs React Lymphs (Man) 0.0 K/mm3 06/20/18 08:13 Monocytes # (Manual) 0.0 K/mm3 (0.0-0.8) 06/20/18 08:13 Eosinophils # (Manual) 0.0 K/mm3 (0.0-0.4) 06/20/18 08:13 Basophils # (Manual) 0.0 K/mm3 (0.0-0.1) 06/20/18 08:13 Metamyelocytes # 0.0 K/mm3 06/20/18 08:13 Myelocytes # 0.0 K/mm3 06/20/18 08:13 Promyelocytes # 0.0 K/mm3 06/20/18 08:13 Blast Cells # 0.0 K/mm3 06/20/18 08:13 WBC Morphology Not Reportable 06/20/18 08:13 Hypersegmented Neuts Not Reportable 06/20/18 08:13 Hyposegmented Neuts Not Reportable 06/20/18 08:13 Hypogranular Neuts Not Reportable 06/20/18 08:13 Smudge Cells Not Reportable 06/20/18 08:13 Toxic Granulation Not Reportable 06/20/18 08:13 Toxic Vacuolation Not Reportable 06/20/18 08:13 Dohle Bodies Not Reportable 06/20/18 08:13 Pelger-Huet Anomaly Not Reportable 06/20/18 08:13 Loretta Rods Not Reportable 06/20/18 08:13 Platelet Estimate Consistent w auto 06/20/18 08:13 Clumped Platelets Not Reportable 06/20/18 08:13 Plt Clumps, EDTA Not Reportable 06/20/18 08:13 Large Platelets Not Reportable 06/20/18 08:13 Giant Platelets Not Reportable 06/20/18 08:13 Platelet Satelliting Not Reportable 06/20/18 08:13 Plt Morphology Comment Not Reportable 06/20/18 08:13 RBC Morphology Not Reportable 06/20/18 08:13 Dimorphic RBCs Not Reportable 06/20/18 08:13 Polychromasia Not Reportable 06/20/18 08:13 Hypochromasia Not Reportable 06/20/18 08:13 Poikilocytosis 1+ 06/20/18 08:13 Anisocytosis 1+ 06/20/18 08:13 Microcytosis Not Reportable 06/20/18 08:13 Macrocytosis Not Reportable 06/20/18 08:13 Spherocytes Not Reportable 06/20/18 08:13 Pappenheimer Bodies Not Reportable 06/20/18 08:13 Sickle Cells Not Reportable 06/20/18 08:13 Target Cells Not Reportable 06/20/18 08:13 Tear Drop Cells Not Reportable 06/20/18 08:13 Ovalocytes 1+ 06/20/18 08:13 Helmet Cells Not Reportable 06/20/18 08:13 [place] Bodies Not Reportable 06/20/18 08:13 [place] Rings Not Reportable 06/20/18 08:13 [place] Cells Not Reportable 06/20/18 08:13 Bite Cells Not Reportable 06/20/18 08:13 Crenated Cell Not Reportable 06/20/18 08:13 Elliptocytes Not Reportable 06/20/18 08:13 Acanthocytes (Spur) Not Reportable 06/20/18 08:13 Rouleaux Not Reportable 06/20/18 08:13 Hemoglobin C Crystals Not Reportable 06/20/18 08:13 Schistocytes Not Reportable 06/20/18 08:13 Malaria parasites Not Reportable 06/20/18 08:13 Jesus Bodies Not Reportable 06/20/18 08:13 Hem Pathologist Commnt No 06/20/18 08:13 PT 15.9 Sec. (12.2-14.9) H 06/19/18 Unknown INR 1.19 (0.87-1.13) H 06/19/18 Unknown APTT 28.7 Sec. (24.2-36.6) 06/19/18 Unknown D-Dimer 8449.09 ng/mlDDU (0-234) H 06/19/18 Unknown POC ABG pH 7.250 (7.35-7.45) L 06/24/18 04:46 POC ABG pCO2 55.8 (35-45) H 06/24/18 04:46 POC ABG pO2 98 (80-105) 06/24/18 04:46 POC ABG HCO3 24.5 06/24/18 04:46 POC ABG Total CO2 26 06/24/18 04:46 POC ABG O2 Sat 96 06/24/18 04:46 POC ABG Base Excess -3 06/24/18 04:46 FiO2 70 % 06/24/18 04:46 Sodium 139 mmol/L (137-145) 06/24/18 04:12 Potassium 5.4 mmol/L (3.6-5.0) H 06/24/18 04:12 Chloride 104.8 mmol/L (98-107) 06/24/18 04:12 Carbon Dioxide 24 mmol/L (22-30) 06/24/18 04:12 Anion Gap 16 mmol/L 06/24/18 04:12 BUN 44 mg/dL (9-20) H 06/24/18 04:12 Creatinine 2.2 mg/dL (0.8-1.5) H 06/24/18 04:12 Estimated GFR 35 ml/min 06/24/18 04:12 BUN/Creatinine Ratio 20 % 06/24/18 04:12 Glucose 206 mg/dL (75-100) H 06/24/18 04:12 POC Glucose 151 (70-105) H 06/24/18 11:14 Lactic Acid 1.70 mmol/L (0.7-2.0) 06/19/18 05:26 Calcium 7.5 mg/dL (8.4-10.2) L 06/24/18 04:12 Total Bilirubin < 0.20 mg/dL (0.1-1.2) 06/23/18 05:11 Direct Bilirubin < 0.2 mg/dL (0-0.2) 06/19/18 Unknown Indirect Bilirubin 0.2 mg/dL 06/19/18 Unknown AST 63 units/L (5-40) H 06/23/18 05:11 ALT 297 units/L (7-56) H 06/23/18 05:11 Alkaline Phosphatase 127 units/L (35-129) 06/23/18 05:11 Troponin T < 0.010 ng/mL (0.00-0.029) 06/19/18 Unknown C-Reactive Protein 1.60 mg/dL (0.00-1.30) H 06/23/18 18:40 NT-Pro-B Natriuret Pep 226.4 pg/mL (0-450) 06/19/18 Unknown Total Protein 5.3 g/dL (6.3-8.2) L 06/23/18 05:11 Albumin 2.4 g/dL (3.9-5) L 06/23/18 05:11 Albumin/Globulin Ratio 0.8 % 06/23/18 05:11 Urine Color Yellow (Yellow) 06/19/18 08:07 Urine Turbidity Clear (Clear) 06/19/18 08:07 Urine pH 5.0 (5.0-7.0) 06/19/18 08:07 Ur Specific [place] 1.060 (1.003-1.030) H 06/19/18 08:07 Urine Protein 100 mg/dl mg/dL (Negative) 06/19/18 08:07 Urine Glucose (UA) Neg mg/dL (Negative) 06/19/18 08:07 Urine Ketones Neg mg/dL (Negative) 06/19/18 08:07 Urine Blood Sm (Negative) 06/19/18 08:07 Urine Nitrite Neg (Negative) 06/19/18 08:07 Urine Bilirubin Neg (Negative) 06/19/18 08:07 Urine Urobilinogen < 2.0 mg/dL (<2.0) 06/19/18 08:07 Ur Leukocyte Esterase Neg (Negative) 06/19/18 08:07 Urine WBC (Auto) 8.0 /HPF (0.0-6.0) H 06/19/18 08:07 Urine RBC (Auto) 35.0 /HPF (0.0-6.0) 06/19/18 08:07 U Epithel Cells (Auto) < 1.0 /HPF (0-13.0) 06/19/18 08:07 Urine Mucus Few /HPF 06/19/18 08:07 Urine Opiates Screen Presumptive negative 06/19/18 08:06 Urine Methadone Screen Presumptive negative 06/19/18 08:06 Ur Barbiturates Screen Presumptive negative 06/19/18 08:06 Ur Phencyclidine Scrn Presumptive negative 06/19/18 08:06 Ur Amphetamines Screen Presumptive negative 06/19/18 08:06 U Benzodiazepines Scrn Presumptive positive 06/19/18 08:06 Urine Cocaine Screen Presumptive negative 06/19/18 08:06 U Marijuana (THC) Screen Presumptive negative 06/19/18 08:06 Drugs of Abuse Note Disclamer 06/19/18 08:06 Lymph Enumerat CD4/CD8 0.05 (0.86-5.00) L 06/19/18 07:11 % CD3 Cells 45 % (57-85) L 06/19/18 07:11 Absolute CD3 Count 185 cells/uL (840-3060) L 06/19/18 07:11 % CD4 Cells 2 % (30-61) L 06/19/18 07:11 Absolute CD4 Count 10 cells/uL (490-1740) L 06/19/18 07:11 % CD8 Cells 43 % (12-42) H 06/19/18 07:11 Absolute CD8 Count 167 cells/uL (180-1170) L 06/19/18 07:11 % CD19 Cells 18 % (6-29) 06/19/18 07:11 Absolute CD19 Count 79 cells/uL (110-660) L 06/19/18 07:11 Hepatitis A IgM Ab Non-reactive (NonReactive) 06/21/18 04:19 Hep Bs Antigen Non-reactive (Negative) 06/21/18 04:19 Hep B Core IgM Ab Non-reactive (NonReactive) 06/21/18 04:19 Hepatitis C Antibody Non-reactive (NonReactive) 06/21/18 04:19 HIV DNA Qual (PCR) Detected (Not Detected) H 06/19/18 09:20 HIV-1 Antibody See scanned results 06/19/18 07:12 HIV-1 RNA PCR copies/ml [id number] Copies/mL H 06/19/18 15:16 HIV-1 RNA (PCR) log 6.11 Log cps/mL H 06/19/18 15:16 HIV-2 Ab (Immunoblot) See scanned results 06/19/18 07:12 HIV 1&2 Antibody Rapid Reactive (Non React) 06/19/18 07:10 HIV P24 Antigen Invalid (Non React) 06/19/18 07:10 Influenza A (Rapid) Negative (Negative) 06/19/18 Unknown Influenza A (RT-PCR) Negative (Negative) 06/21/18 12:30 Influenza B (Rapid) Negative (Negative) 06/19/18 Unknown Influenza B (RT-PCR) Negative (Negative) 06/21/18 12:30 Miscellaneous Test see below H 06/21/18 12:32 Nutrition/Malnutrition Assess - Dietary Evaluation Nutrition/Malnutrition Findings: Nutrition Notes Start: 06/19/18 14:17 Freq: Status: Active Protocol: Document 06/21/18 12:47 CT (Rec: 06/21/18 14:14 CT [id number]) Co-Sign 06/21/18 12:47 LP Nutrition Notes Initial or Follow up Reassessment Current Diagnosis Hypertension Other Pertinent Diagnosis SOB, bilateral pneumonia, HIV Current Diet TF- Osmolite 1.5 @60mls/hr Labs/Tests Na: 135 Cr: 0.7 B Pertinent Medications Reviewed. Height 5 ft 9 in Weight 78.4 kg [place] Body Weight (kg) 72.72 BMI 25.5 Weight Status Overweight Subjective/Other Information Observed TF infusing at 50mls/ hr. Spoke with RN who reported pt is tolerating TF well and ina soon be advanced to goal. Percent of needs met calculated based on 50ml/hr Percent of energy/protein needs met: 83%81/% Burn Absent Trauma Absent #1 Nutrition Diagnosis Inadequate oral intake Diagnosis Progress(for reassessment Continues documentation) Is patient on ventilator? Yes Is Patient Ambulatory and/or Out of Bed No REE-(Gause-St. Jeor-confined to bed) 2070.182 Calculation Used for Recommendations Gause-St Jeor Additional Notes PRO: 93 - 154g PRO (1.2 - 2g KG ABW) fluid: 1 ml/kcal Nutrition Intervention Change Diet Order: Continue TF Nutrition Support: Osmolite 1.5 at 60mL/hr with 175mL flush q4h Kcal 2,169 Protein (gm) 90 Carbohydrates (gm) 293 Fat (gm) 70 Fluid (mL) 1,097 Fiber (gm) 0 Goal #1 TF at goal Goal #2 TF to meet 80-100% of kcal and protein needs. Anticipated Discharge Needs: Unable to determine at this time Follow-Up By: 06/26/18 Additional Comments F/U: TF at goal rate
[2018-06-24] MEDS: NACL 0.45% 1000 ML 1,000 ML IV SCH (12:58)
--- NOTE | 2018-06-24 14:54 | Progress Note ---
Assessment and Plan ARDS Acute Hypoxemic Respiratory Failure on MVS AIDS / HIV positive Severe Sepsis due to Pneumonia Hyponatremia Severe metabolic acidosis Shock liver - target TV 4-6 ml/kg IBW - increased set rate to 30/min and reduced TV to 400mls with Peep at 15 now - ABG in 1 hour and adjust MVS as necessary - permissive hypercapnia at this point - start propofol to improve sedation and reduce patient ventilator dys-synchrony on high Peep settings (on 6 mg/hr of versed now with fentanyl 4 mics/kg/hr) - Cytology negative for PCP - Voriconazole added per ID rec's - follow 2D ECHO re: ? bilateral pulmonary edema - continue seroquel at 300mg bid to aid weaning off IV sedatives - continue to titrate sedatives for RASS 0 to -1 - continue anti-infective's per ID recommendations - complete empiric TamiFlu - get CRP and lactate levels and trend as necessary to aid clinical decision making - continue to wean supplemental oxygen to keep O2 sats > 90% - continue bronchodilators with pulmonary hygiene per RT - continue hyperventilation acutely to compensate for metabolic acidosis - VAP bundle addressed - daily SAT's - Daily SBT assessment - GI & VTE prophylaxis - enteral nutrition as tolerated - continue accuchecks q6h with glycemic control per SSI for target BG 140-180 mg/dL - continue other care per attending / other makeup sales consultant's .... re-evaluate in am & prn ... care plan discussed with family in room CODE STATUS: FULL CODE The high probability of a clinically significant, sudden or life-threatening deterioration of the [cardiac, neurology] system(s) required my full and direct attention, intervention and personal management. The aggregate critical care time was [35] minutes without overlap. Time includes spent on; [x] Data Review and interpretation [x] Patient assessment and monitoring of vital signs [x] Documentation [x] Medication orders and management Subjective Date of service: 06/24/18 Principal diagnosis: Acute Hypoxemic Resp Failure; AIDS / HIV positive; Severe Sepsis due to PNA Interval history: Patient is seen today for: Acute Hypoxemic Respiratory Failure on MVS; AIDS / HIV positive; Severe Sepsis due to Pneumonia; Hyponatremia; Severe metabolic acidosis Seen and examined at bedside; 24hour events reviewed; nursing and respiratory care staff consulted; no adverse overnight events reported to me; remains on MVS; remains with ARDS; AMS is persistent; agitated during sedation vacations; no seizures; acidosis is worse and now with hypercapnic element Objective Vital Signs - 12hr 06/24/18 06/24/18 06/24/18 03:00 03:36 04:00 Temperature 99.8 F H Pulse Rate 121 H 123 H Respiratory 22 22 Rate Blood Pressure 125/80 119/80 O2 Sat by Pulse 91 92 Oximetry 06/24/18 06/24/18 06/24/18 04:34 05:00 06:00 Temperature Pulse Rate 123 H 123 H 127 H Respiratory 22 23 Rate Blood Pressure 129/82 129/76 133/80 O2 Sat by Pulse 95 92 92 Oximetry 06/24/18 06/24/18 06/24/18 07:00 08:00 08:04 Temperature 99.1 F Pulse Rate 127 H 134 H 134 H Respiratory 22 19 Rate Blood Pressure 131/83 131/77 131/77 O2 Sat by Pulse 92 91 95 Oximetry 06/24/18 06/24/18 06/24/18 09:00 10:00 11:00 Temperature Pulse Rate 119 H 126 H 127 H Respiratory 16 26 H 27 H Rate Blood Pressure 123/78 133/77 125/73 O2 Sat by Pulse 92 93 95 Oximetry 06/24/18 06/24/18 06/24/18 11:41 12:00 13:00 Temperature 98.7 F Pulse Rate 120 H 124 H 128 H Respiratory 18 22 Rate Blood Pressure 128/69 124/72 124/70 O2 Sat by Pulse 95 95 93 Oximetry Constitutional: appears uncomfortable, other (young HM normocephalic and atraumatic with moderately increased respiratory effort at rest) Eyes: non-icteric ENT: oropharynx moist, other (ETT 23 cm SATISH) Neck: supple, no lymphadenopathy, no JVD, other (no thyromegaly) Effort: mildly labored Ascultation: Bilateral: diminished breath sounds, rhonchi Percussion: Bilateral: not dull Cardiovascular: regular rate and rhythm Gastrointestinal: normoactive bowel sounds, soft, non-tender, non-distended Integumentary: rash Extremities: no cyanosis, pink and warm, pulses normal, no ischemia or petechiae, edema (trace) Neurologic: non-focal exam (grossly), pupils equal and round, motor strength normal and, unable to assess Psychiatric: other (unable to assess) CBC and BMP: 06/25/18 11:40 06/25/18 11:40 ABG, PT/INR, D-dimer: ABG POC ABG pH 7.250 (7.35-7.45) L 06/24/18 04:46 POC ABG pCO2 55.8 (35-45) H 06/24/18 04:46 POC ABG pO2 98 (80-105) 06/24/18 04:46 POC ABG HCO3 24.5 06/24/18 04:46 POC ABG Total CO2 26 06/24/18 04:46 POC ABG O2 Sat 96 06/24/18 04:46 PT/INR, D-dimer PT 15.9 Sec. (12.2-14.9) H 06/19/18 Unknown INR 1.19 (0.87-1.13) H 06/19/18 Unknown D-Dimer 8449.09 ng/mlDDU (0-234) H 06/19/18 Unknown Abnormal lab findings: Abnormal Labs 06/19/18 06/19/18 06/19/18 03:31 07:11 07:42 WBC RBC Hgb Hct Seg Neuts % (Manual) Lymphocytes % (Manual) Seg Neutrophils # Man Abs Lymphs (Manual) 409 L Lymphocytes # (Manual) PT INR D-Dimer POC ABG pH 6.974 L POC ABG pCO2 22.0 L 83.4 H POC ABG pO2 28 L 122 H Sodium Potassium Chloride Carbon Dioxide BUN Creatinine Glucose POC Glucose Calcium AST ALT C-Reactive Protein Total Protein Albumin Ur Specific [place] Urine WBC (Auto) Lymph Enumerat CD4/CD8 0.05 L % CD3 Cells 45 L Absolute CD3 Count 185 L % CD4 Cells 2 L Absolute CD4 Count 10 L % CD8 Cells 43 H Absolute CD8 Count 167 L Absolute CD19 Count 79 L HIV DNA Qual (PCR) HIV-1 RNA PCR copies/ml HIV-1 RNA (PCR) log Miscellaneous Test 06/19/18 06/19/18 06/19/18 08:07 08:16 09:20 WBC RBC Hgb Hct Seg Neuts % (Manual) Lymphocytes % (Manual) Seg Neutrophils # Man Abs Lymphs (Manual) Lymphocytes # (Manual) PT INR D-Dimer POC ABG pH 6.996 L POC ABG pCO2 82.4 H POC ABG pO2 Sodium Potassium Chloride Carbon Dioxide BUN Creatinine Glucose POC Glucose Calcium AST ALT C-Reactive Protein Total Protein Albumin Ur Specific [place] 1.060 H Urine WBC (Auto) 8.0 H Lymph Enumerat CD4/CD8 % CD3 Cells Absolute CD3 Count % CD4 Cells Absolute CD4 Count % CD8 Cells Absolute CD8 Count Absolute CD19 Count HIV DNA Qual (PCR) Detected H HIV-1 RNA PCR copies/ml HIV-1 RNA (PCR) log Miscellaneous Test 06/19/18 06/19/18 06/19/18 09:49 11:15 15:16 WBC RBC Hgb Hct Seg Neuts % (Manual) Lymphocytes % (Manual) Seg Neutrophils # Man Abs Lymphs (Manual) Lymphocytes # (Manual) PT INR D-Dimer POC ABG pH 7.198 L 7.206 L POC ABG pCO2 POC ABG pO2 75 L Sodium Potassium Chloride Carbon Dioxide BUN Creatinine Glucose POC Glucose Calcium AST ALT C-Reactive Protein Total Protein Albumin Ur Specific [place] Urine WBC (Auto) Lymph Enumerat CD4/CD8 % CD3 Cells Absolute CD3 Count % CD4 Cells Absolute CD4 Count % CD8 Cells Absolute CD8 Count Absolute CD19 Count HIV DNA Qual (PCR) HIV-1 RNA PCR copies/ml 7932429 H HIV-1 RNA (PCR) log 6.11 H Miscellaneous Test 06/19/18 06/19/18 06/19/18 18:54 Unknown Unknown WBC 12.9 H RBC Hgb Hct Seg Neuts % (Manual) Lymphocytes % (Manual) 5.0 L Seg Neutrophils # Man Abs Lymphs (Manual) Lymphocytes # (Manual) 0.6 L PT 15.9 H INR 1.19 H D-Dimer 8449.09 H POC ABG pH POC ABG pCO2 POC ABG pO2 Sodium Potassium Chloride Carbon Dioxide BUN Creatinine Glucose POC Glucose 196 H Calcium AST ALT C-Reactive Protein Total Protein Albumin Ur Specific [place] Urine WBC (Auto) Lymph Enumerat CD4/CD8 % CD3 Cells Absolute CD3 Count % CD4 Cells Absolute CD4 Count % CD8 Cells Absolute CD8 Count Absolute CD19 Count HIV DNA Qual (PCR) HIV-1 RNA PCR copies/ml HIV-1 RNA (PCR) log Miscellaneous Test 06/19/18 06/19/18 06/20/18 Unknown Unknown 04:33 WBC RBC Hgb Hct Seg Neuts % (Manual) Lymphocytes % (Manual) Seg Neutrophils # Man Abs Lymphs (Manual) Lymphocytes # (Manual) PT INR D-Dimer POC ABG pH 7.249 L POC ABG pCO2 POC ABG pO2 118 H Sodium 129 L Potassium Chloride 90.7 L Carbon Dioxide 17 L BUN Creatinine 0.6 L Glucose 199 H POC Glucose Calcium 8.1 L AST 53 H ALT C-Reactive Protein Total Protein 6.0 L Albumin 2.8 L Ur Specific [place] Urine WBC (Auto) Lymph Enumerat CD4/CD8 % CD3 Cells Absolute CD3 Count % CD4 Cells Absolute CD4 Count % CD8 Cells Absolute CD8 Count Absolute CD19 Count HIV DNA Qual (PCR) HIV-1 RNA PCR copies/ml HIV-1 RNA (PCR) log Miscellaneous Test 06/20/18 06/20/18 06/20/18 08:13 08:13 12:59 WBC 11.8 H RBC 3.25 L Hgb 9.8 L D Hct 30.4 L D Seg Neuts % (Manual) 99.0 H Lymphocytes % (Manual) 1.0 L Seg Neutrophils # Man 11.7 H Abs Lymphs (Manual) Lymphocytes # (Manual) 0.1 L PT INR D-Dimer POC ABG pH POC ABG pCO2 POC ABG pO2 Sodium Potassium Chloride Carbon Dioxide 19 L BUN Creatinine Glucose 223 H POC Glucose 174 H Calcium 6.6 L D AST 1240 H ALT 836 H C-Reactive Protein Total Protein 4.9 L Albumin 2.1 L Ur Specific [place] Urine WBC (Auto) Lymph Enumerat CD4/CD8 % CD3 Cells Absolute CD3 Count % CD4 Cells Absolute CD4 Count % CD8 Cells Absolute CD8 Count Absolute CD19 Count HIV DNA Qual (PCR) HIV-1 RNA PCR copies/ml HIV-1 RNA (PCR) log Miscellaneous Test 06/20/18 06/20/18 06/21/18 17:42 23:44 04:08 WBC RBC Hgb Hct Seg Neuts % (Manual) Lymphocytes % (Manual) Seg Neutrophils # Man Abs Lymphs (Manual) Lymphocytes # (Manual) PT INR D-Dimer POC ABG pH 7.309 L POC ABG pCO2 POC ABG pO2 Sodium Potassium Chloride Carbon Dioxide BUN Creatinine Glucose POC Glucose 177 H 195 H Calcium AST ALT C-Reactive Protein Total Protein Albumin Ur Specific [place] Urine WBC (Auto) Lymph Enumerat CD4/CD8 % CD3 Cells Absolute CD3 Count % CD4 Cells Absolute CD4 Count % CD8 Cells Absolute CD8 Count Absolute CD19 Count HIV DNA Qual (PCR) HIV-1 RNA PCR copies/ml HIV-1 RNA (PCR) log Miscellaneous Test 0206/21/18 06/21/18 04:19 04:19 05:27 WBC 13.8 H RBC 3.02 L Hgb 9.2 L Hct 28.0 L Seg Neuts % (Manual) Lymphocytes % (Manual) Seg Neutrophils # Man Abs Lymphs (Manual) Lymphocytes # (Manual) PT INR D-Dimer POC ABG pH POC ABG pCO2 POC ABG pO2 Sodium 135 L Potassium Chloride Carbon Dioxide 21 L BUN Creatinine 0.7 L Glucose 161 H POC Glucose 187 H Calcium 7.2 L AST 390 H ALT 622 H C-Reactive Protein Total Protein 5.3 L Albumin 2.4 L Ur Specific [place] Urine WBC (Auto) Lymph Enumerat CD4/CD8 % CD3 Cells Absolute CD3 Count % CD4 Cells Absolute CD4 Count % CD8 Cells Absolute CD8 Count Absolute CD19 Count HIV DNA Qual (PCR) HIV-1 RNA PCR copies/ml HIV-1 RNA (PCR) log Miscellaneous Test 06/21/18 06/21/18 06/21/18 11:33 12:32 17:45 WBC RBC Hgb Hct Seg Neuts % (Manual) Lymphocytes % (Manual) Seg Neutrophils # Man Abs Lymphs (Manual) Lymphocytes # (Manual) PT INR D-Dimer POC ABG pH POC ABG pCO2 POC ABG pO2 Sodium Potassium Chloride Carbon Dioxide BUN Creatinine Glucose POC Glucose 147 H 172 H Calcium AST ALT C-Reactive Protein Total Protein Albumin Ur Specific [place] Urine WBC (Auto) Lymph Enumerat CD4/CD8 % CD3 Cells Absolute CD3 Count % CD4 Cells Absolute CD4 Count % CD8 Cells Absolute CD8 Count Absolute CD19 Count HIV DNA Qual (PCR) HIV-1 RNA PCR copies/ml HIV-1 RNA (PCR) log Miscellaneous Test see below H 06/21/18 06/22/18 06/22/18 23:25 04:47 04:47 WBC 11.5 H RBC 2.93 L Hgb 9.0 L Hct 26.5 L Seg Neuts % (Manual) Lymphocytes % (Manual) Seg Neutrophils # Man Abs Lymphs (Manual) Lymphocytes # (Manual) PT INR D-Dimer POC ABG pH POC ABG pCO2 POC ABG pO2 Sodium Potassium Chloride Carbon Dioxide BUN 22 H Creatinine Glucose 201 H POC Glucose 152 H Calcium 7.8 L AST 129 H ALT 416 H C-Reactive Protein Total Protein 5.3 L Albumin 2.4 L Ur Specific [place] Urine WBC (Auto) Lymph Enumerat CD4/CD8 % CD3 Cells Absolute CD3 Count % CD4 Cells Absolute CD4 Count % CD8 Cells Absolute CD8 Count Absolute CD19 Count HIV DNA Qual (PCR) HIV-1 RNA PCR copies/ml HIV-1 RNA (PCR) log Miscellaneous Test 06/22/18 06/22/18 06/22/18 05:23 11:43 17:45 WBC RBC Hgb Hct Seg Neuts % (Manual) Lymphocytes % (Manual) Seg Neutrophils # Man Abs Lymphs (Manual) Lymphocytes # (Manual) PT INR D-Dimer POC ABG pH POC ABG pCO2 POC ABG pO2 Sodium Potassium Chloride Carbon Dioxide BUN Creatinine Glucose POC Glucose 170 H 175 H 176 H Calcium AST ALT C-Reactive Protein Total Protein Albumin Ur Specific [place] Urine WBC (Auto) Lymph Enumerat CD4/CD8 % CD3 Cells Absolute CD3 Count % CD4 Cells Absolute CD4 Count % CD8 Cells Absolute CD8 Count Absolute CD19 Count HIV DNA Qual (PCR) HIV-1 RNA PCR copies/ml HIV-1 RNA (PCR) log Miscellaneous Test 06/23/18 06/23/18 06/23/18 00:24 05:06 05:11 WBC 11.2 H RBC 2.78 L Hgb 8.6 L Hct 25.3 L Seg Neuts % (Manual) Lymphocytes % (Manual) Seg Neutrophils # Man Abs Lymphs (Manual) Lymphocytes # (Manual) PT INR D-Dimer POC ABG pH POC ABG pCO2 POC ABG pO2 Sodium Potassium Chloride Carbon Dioxide BUN Creatinine Glucose POC Glucose 178 H 182 H Calcium AST ALT C-Reactive Protein Total Protein Albumin Ur Specific [place] Urine WBC (Auto) Lymph Enumerat CD4/CD8 % CD3 Cells Absolute CD3 Count % CD4 Cells Absolute CD4 Count % CD8 Cells Absolute CD8 Count Absolute CD19 Count HIV DNA Qual (PCR) HIV-1 RNA PCR copies/ml HIV-1 RNA (PCR) log Miscellaneous Test 06/23/18 06/23/18 06/23/18 05:11 05:51 12:21 WBC RBC Hgb Hct Seg Neuts % (Manual) Lymphocytes % (Manual) Seg Neutrophils # Man Abs Lymphs (Manual) Lymphocytes # (Manual) PT INR D-Dimer POC ABG pH POC ABG pCO2 POC ABG pO2 69 L Sodium Potassium Chloride Carbon Dioxide BUN 34 H Creatinine 1.7 H D Glucose 191 H POC Glucose 181 H Calcium 7.5 L AST 63 H ALT 297 H C-Reactive Protein Total Protein 5.3 L Albumin 2.4 L Ur Specific [place] Urine WBC (Auto) Lymph Enumerat CD4/CD8 % CD3 Cells Absolute CD3 Count % CD4 Cells Absolute CD4 Count % CD8 Cells Absolute CD8 Count Absolute CD19 Count HIV DNA Qual (PCR) HIV-1 RNA PCR copies/ml HIV-1 RNA (PCR) log Miscellaneous Test 06/23/18 06/23/18 06/23/18 13:57 17:00 18:40 WBC RBC Hgb Hct Seg Neuts % (Manual) Lymphocytes % (Manual) Seg Neutrophils # Man Abs Lymphs (Manual) Lymphocytes # (Manual) PT INR D-Dimer POC ABG pH POC ABG pCO2 POC ABG pO2 Sodium Potassium Chloride Carbon Dioxide BUN 38 H Creatinine 1.8 H Glucose POC Glucose 196 H Calcium AST ALT C-Reactive Protein 1.60 H Total Protein Albumin Ur Specific [place] Urine WBC (Auto) Lymph Enumerat CD4/CD8 % CD3 Cells Absolute CD3 Count % CD4 Cells Absolute CD4 Count % CD8 Cells Absolute CD8 Count Absolute CD19 Count HIV DNA Qual (PCR) HIV-1 RNA PCR copies/ml HIV-1 RNA (PCR) log Miscellaneous Test 06/23/18 06/23/18 06/24/18 21:16 23:22 04:12 WBC RBC 2.89 L Hgb 8.8 L Hct 26.9 L Seg Neuts % (Manual) Lymphocytes % (Manual) Seg Neutrophils # Man Abs Lymphs (Manual) Lymphocytes # (Manual) PT INR D-Dimer POC ABG pH 7.311 L POC ABG pCO2 47.4 H POC ABG pO2 Sodium Potassium Chloride Carbon Dioxide BUN Creatinine Glucose POC Glucose 165 H Calcium AST ALT C-Reactive Protein Total Protein Albumin Ur Specific [place] Urine WBC (Auto) Lymph Enumerat CD4/CD8 % CD3 Cells Absolute CD3 Count % CD4 Cells Absolute CD4 Count % CD8 Cells Absolute CD8 Count Absolute CD19 Count HIV DNA Qual (PCR) HIV-1 RNA PCR copies/ml HIV-1 RNA (PCR) log Miscellaneous Test 06/24/18 06/24/18 06/24/18 04:12 04:46 05:24 WBC RBC Hgb Hct Seg Neuts % (Manual) Lymphocytes % (Manual) Seg Neutrophils # Man Abs Lymphs (Manual) Lymphocytes # (Manual) PT INR D-Dimer POC ABG pH 7.250 L POC ABG pCO2 55.8 H POC ABG pO2 Sodium Potassium 5.4 H Chloride Carbon Dioxide BUN 44 H Creatinine 2.2 H Glucose 206 H POC Glucose 183 H Calcium 7.5 L AST ALT C-Reactive Protein Total Protein Albumin Ur Specific [place] Urine WBC (Auto) Lymph Enumerat CD4/CD8 % CD3 Cells Absolute CD3 Count % CD4 Cells Absolute CD4 Count % CD8 Cells Absolute CD8 Count Absolute CD19 Count HIV DNA Qual (PCR) HIV-1 RNA PCR copies/ml HIV-1 RNA (PCR) log Miscellaneous Test 06/24/18 11:14 WBC RBC Hgb Hct Seg Neuts % (Manual) Lymphocytes % (Manual) Seg Neutrophils # Man Abs Lymphs (Manual) Lymphocytes # (Manual) PT INR D-Dimer POC ABG pH POC ABG pCO2 POC ABG pO2 Sodium Potassium Chloride Carbon Dioxide BUN Creatinine Glucose POC Glucose 151 H Calcium AST ALT C-Reactive Protein Total Protein Albumin Ur Specific [place] Urine WBC (Auto) Lymph Enumerat CD4/CD8 % CD3 Cells Absolute CD3 Count % CD4 Cells Absolute CD4 Count % CD8 Cells Absolute CD8 Count Absolute CD19 Count HIV DNA Qual (PCR) HIV-1 RNA PCR copies/ml HIV-1 RNA (PCR) log Miscellaneous Test Allied health notes reviewed: nursing
--- NOTE | 2018-06-24 15:08 | Progress Note ---
Assessment and Plan Cultures: 06/19/2018 blood culture: no growth 06/19/2018 tracheal aspirate: usual resp david/ Rothia mucilaginosa 06/19/2018 fungal blood culture: no growth 06/20/2018 Serum CrAg: negative A/P: 32/M with: #1 Bilateral pneumonia: Extensive bilateral ground glass opacities and pneumonia with severe hypoxia. Unclear etiology ? PJP versus invasive fungal. Clinically c oncerning for PJP pneumonia, cytology PJP stain negative and DFA showed rare PJP . Lung cytology GMS stain showed septated fungal hyphae with acute angle branching and yeast forms c/w Aspergillus, Fusarium, Scedosporium and other Dematiaceous fungi. 06/19/2018 tracheal aspirate showed usual resp david/ Rothia mucilaginosa. 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 patient has been on bactrim IV for 4 days and IV voriconazole for 3 days witouht any improvement on vent setting still at FiO2 70% p12. #2 Acute respiratory failure: Requiring mechanical ventilation. Not better still FIo2 70% p 12 #3 HIV, likely AIDS: VL 1,300,000 copies, CD4=10 #4 Sepsis: Likely secondary to above. #5 JENNIFER: worsening on bactrim IV and voriconazole Recs: Renal consult f/u serum BAL-Galactomannan antigen and Uqbl-H-nposid assay, histoplasma urine ag and cocci serology continue voriconazole renally adjusted D3 continue bactrim renally adjusted D4 Continue IV steroids stop ceftriaxone 2 g IV q day and levaquin 750 mg IV qday to cover CAP start vancomycin renally dosed to cover Rothia Stop Tamiflu F/u CMV PCR f/u F/u genotype, CMV Add azithromycin 1200 mg qweek for MAC prophylaxis Guarded prognosis Keke Manzo MD Infectious Diseases [employer] [facility], [place]) M [phone] O [phone] Subjective Date of service: 06/24/18 Principal diagnosis: Acute Hypoxemic Resp Failure; AIDS / HIV positive; Severe Sepsis due to PNA Interval history: Patient remains intubated on CMV FiO2 70%, p 12, sedated on 2 sedatives. Tmax 99.8 ROS unable to obtain Objective - Exam Narrative Exam: General appearance: sedated on the vent FIO2 70% Eyes: anicteric sclerae, moist conjunctivae; no lid-lag; PERRLA HENT: Atraumatic; oropharynx +ETT. Neck: Trachea midline; supple, no thyromegaly or lymphadenopathy Lungs: shruthi rhonchi CV: tachycardic Abdomen: Soft, non-tender; no masses or hepatosplenomegaly Extremities: No peripheral edema or extremity lymphadenopathy Skin: Normal temperature, turgor and texture; no rash, ulcers or subcutaneous nodules Psych: sedated. Neuro: sedated Rust Right IJ TLC - Constitutional Vitals: Vital Signs Temp Pulse Resp BP Pulse Ox 98.7 F 128 H 22 124/70 93 06/24/18 12:00 06/24/18 13:00 06/24/18 13:00 06/24/18 13:00 06/24/18 13:00 Temperature -Last 24 Hours Temperature 98.7 F Temperature 99.1 F Temperature 99.8 F Temperature 99.3 F Temperature 98.9 F Temperature 98.2 F - Labs CBC & Chem 7: 06/24/18 04:12 06/24/18 04:12 Labs: Abnormal lab results 06/23/18 06/23/18 06/23/18 Range/Units 17:00 18:40 21:16 RBC (3.65-5.03) M/mm3 Hgb (11.8-15.2) gm/dl Hct (35.5-45.6) % POC ABG pH 7.311 L (7.35-7.45) POC ABG pCO2 47.4 H (35-45) Potassium (3.6-5.0) mmol/L BUN (9-20) mg/dL Creatinine (0.8-1.5) mg/dL Glucose (75-100) mg/dL POC Glucose 196 H (70-105) Calcium (8.4-10.2) mg/dL C-Reactive Protein 1.60 H (0.00-1.30) mg/dL 06/23/18 06/24/18 06/24/18 Range/Units 23:22 04:12 04:12 RBC 2.89 L (3.65-5.03) M/mm3 Hgb 8.8 L (11.8-15.2) gm/dl Hct 26.9 L (35.5-45.6) % POC ABG pH (7.35-7.45) POC ABG pCO2 (35-45) Potassium 5.4 H (3.6-5.0) mmol/L BUN 44 H (9-20) mg/dL Creatinine 2.2 H (0.8-1.5) mg/dL Glucose 206 H (75-100) mg/dL POC Glucose 165 H (70-105) Calcium 7.5 L (8.4-10.2) mg/dL C-Reactive Protein (0.00-1.30) mg/dL 06/24/18 06/24/18 06/24/18 Range/Units 04:46 05:24 11:14 RBC (3.65-5.03) M/mm3 Hgb (11.8-15.2) gm/dl Hct (35.5-45.6) % POC ABG pH 7.250 L (7.35-7.45) POC ABG pCO2 55.8 H (35-45) Potassium (3.6-5.0) mmol/L BUN (9-20) mg/dL Creatinine (0.8-1.5) mg/dL Glucose (75-100) mg/dL POC Glucose 183 H 151 H (70-105) Calcium (8.4-10.2) mg/dL C-Reactive Protein (0.00-1.30) mg/dL
[2018-06-24] MEDS: DIPRIVAN 10 MG/ML 1,000 MG/100 ML BOTTLE IV SCH (15:10)
[2018-06-24 15:31] LABS: INR 1.17 (0.87-1.13)
--- NOTE | 2018-06-24 15:40 | Consultation ---
History of Present Illness - Reason for Consult Consult date: 06/24/18 acute renal failure Requesting physician: PAMELA ALARCON - History of Present Illness 33-year-old male with no known medical history except for hypertension presents with complaint of cough and shortness of breath 3 days duration. Patient became depressed since his in March 2018. The cause of the 's is unknown. Patient was intubated for respiratory failure with extensive bilateral pneumonia. Also had increased liver function tests. Started on empiric antibiotics and infectious disease was consulted. HIV test was requested and came back positive and subsequently CD4 count was very low and viral load high. He was started on Bactrim and steroids for presumed PJP p neumonia but lung cytology was negative for PJP and malignant cells but positive for septated fungal hyphae. He was then started on voriconazole. CT angiogram of the chest was done Jun 19 and showed no evidence of pulmonary embolism but still had extensive bilateral infiltrates. He remains on high-dose oxygen despite antibiotics for several days. The creatinine has been worsening as on June 21 creatinine was 0.7 and 1.1 yesterday 1.8 and today 2.2 mg/dL. Potassium has also increased to 5.4 mmol per liter. I am consulted to assist in managing this. Patient has been on Bactrim and voriconazole and vancomycin was added today. He has not been receiving any nonsteroidal anti-inflammatory drugs. Past History Past Medical History: HIV/AIDS, hypertension Past Surgical History: No surgical history, Other (unknown) Social history: other (unknown) Family history: other (unknown) Medications and Allergies Allergies Allergy/AdvReac Type Severity Reaction Status Date / Time No Known Allergies Allergy Verified 06/19/18 06:10 Home Medications Medication Instructions Recorded Confirmed Last Taken Type ALBUTEROL Inhaler (OR & NICU) 2 puff IH QID PRN 06/19/18 06/19/18 Unknown Hist ory [Proair] Pantoprazole [Protonix] 40 mg PO QDAY 06/19/18 06/19/18 Unknown History levoFLOXacin [Levaquin TAB] 500 mg PO QDAY 06/19/18 06/19/18 Unknown History Active Meds: Active Medications Acetaminophen (Tylenol) 650 mg PO Q4H PRN PRN Reason: Pain MILD(1-3)/Fever >100.5/[place] Lipase/Protease/Amylase (Luis Arroyo 10,500 Unit) 1 each FEEDTUBE PRN PRN PRN Reason: For Clogged Feeding Tube Famotidine (Pepcid) 20 mg PO BID PEYTON Last Admin: 06/24/18 10:45 Dose: 20 mg Documented by: Fentanyl (Sublimaze) 50 mcg IV Q10MIN PRN PRN Reason: ANALGESIA Last Admin: 06/21/18 02:05 Dose: 50 mcg Documented by: Hydrophilic Ointment (Vaseline Lip Therapy) 1 applic TP Q2HR PRN PRN Reason: Dry Lips Fentanyl Citrate (Fentanyl Drip Premix) 2,000 mcg in 100 mls @ 3.86 mls/hr IV TITR PEYTON; Protocol Last Admin: 06/24/18 14:10 Dose: 4 mcg/kg/hr, 15.441 mls/hr Documented by: Midazolam HCl 100 mg/ Sodium (Chloride) 100 mls @ 2 mls/hr IV TITR PEYTON; Protoc ol Last Admin: 06/24/18 07:54 Dose: 5 mg/hr, 5 mls/hr Documented by: Norepinephrine (Levophed Drip 4 Mg/Ns 250 Ml) 4 mg in 250 mls @ 7.5 mls/hr IV TITR PEYTON; Protocol Last Titration: 06/19/18 22:00 Dose: 0 mcg/min, 0 mls/hr Documented by: Voriconazole 350 mg/ Sodium (Chloride) 100 mls @ 50 mls/hr IV Q12HR PEY[facility] Last Admin: 06/24/18 10:45 Dose: 50 mls/hr Documented by: Sodium Chloride (Nacl 0.45% 1000 Ml) 1,000 mls @ 75 mls/hr IV DIRECT PEYTON Last Admin: 06/24/18 12:58 Dose: 75 mls/hr Documented by: Propofol (Diprivan 10 Mg/Ml) 1,000 mg in 100 mls @ 2.601 mls/hr IV TITR PEYTON; P rotocol Vancomycin HCl 1,000 mg/ (Sodium Chloride) 100 mls @ 66.667 mls/hr IV Q24H PEYTON; Protocol Trimethoprim/Sulfamethoxazole (150 mg/ Dextrose) 509.375 mls @ 350 mls/hr IV Q6HR PEY[facility]; Protocol Insulin Human Lispro (Humalog) 0 unit SUB-Q Q6HR [facility]; Protocol Last Admin: 06/24/18 12:57 Dose: 2 unit Documented by: Methylprednisolone Sodium Succinate (Solu-Medrol) 40 mg IV Q12HR [facility] Last Admin: 06/24/18 10:45 Dose: 40 mg Documented by: Multi-Ingred Cream/Lotion/Oil/Oint (Artificial Tears Ophth Oint) 1 applic OU Q4HR PRN PRN Reason: Dry Eye(s) Ondansetron HCl (Zofran) 4 mg IV Q8H PRN PRN Reason: Nausea And Vomiting Phenylephrine HCl (Thompson-Synephrine) 2 spray NS Q4H PRN PRN Reason: Congestion Last Admin: 06/24/18 06:43 Dose: 2 spray Documented by: Quetiapine Fumarate (Seroquel) 200 mg PO BID [facility] Last Admin: 06/24/18 10:45 Dose: 200 mg Documented by: Simple Syrup (Simple Syrup) 15 ml FEEDTUBE PRN PRN PRN Reason: Hypoglycemia Simple Syrup (Simple Syrup) 30 ml FEEDTUBE PRN PRN PRN Reason: Hypoglycemia Sodium Bicarbonate (Sodium Bicarbonate) 325 mg FEEDTUBE PRN PRN PRN Reason: For Clogged Feeding Tube Sodium Chloride (Sodium Chloride Flush Syringe 10 Ml) 10 ml IV BID [facility] Last Admin: 06/24/18 10:46 Dose: 10 ml Documented by: Sodium Chloride (Sodium Chloride Flush Syringe 10 Ml) 10 ml IV PRN PRN PRN Reason: LINE FLUSH Review of Systems ROS unobtainable: due to endotracheal tube Exam - Vital Signs Vital signs: Vital Signs Temp Pulse BP 102.5 F H 153 H 133/67 06/19/18 03:02 06/19/18 03:02 06/19/18 03:02 - Physical Exam Narrative exam: Young male lying in bed intubated on ventilator HEENT: NCAT, ETT intact Neck: Supple, no venous distention CVS: S1S2 RRR with no murmur, rub or gallop Chest: Bilateral rhonchi Abdomen: Protuberant, soft, nontender, no organomegaly, bowel sounds are present Extremities: Mild edema is present in the upper extremities Genitourinary deferred, muir catheter draining clear urine Skin warm and dry Neuro: Awake, alert no focal deficits Results - Lab Results 06/24/18 04:12 06/24/18 04:12 Most recent lab results Calcium 7.5 mg/dL (8.4-10.2) L 06/24/18 04:12 Assessment and Plan - Patient Problems (1) Acute kidney failure with tubular necrosis Current Visit: Yes Status: Acute Plan to address problem: Kidney injury acute tubular necrosis of multifactorial etiology secondary to contrast exposure, medications including voriconazole and hypotension. Bactrim could also be contributing either by increasing creatinine by decreasing tubular secretion or Acute tubulo-interstitial nephritis. Unfortunately, patient needs these medications for potentially life-threatening infection. Will Get urine studies including quantifying proteinuria, fraction excretion of sodium and also checking urine eosinophils. Get kidney ultrasound. PHARMACY TO RENALLY DOSE ALL MEDICATIONS. AVOID EXPOSURE TO NEPHROTOXINS WHERE FEASIBLE. Follow-up electrolytes and renal function and further management depending on clinical course. (2) Hyperkalemia Current Visit: Yes Status: Acute Plan to address problem: Bactrim may be contribution to hyperkalemia. Follow potassium and treat as indicated (3) Acute respiratory failure with hypoxia Current Visit: Yes Status: Acute Plan to address problem: Ventilator management by pulmonary (4) Anemia Current Visit: Yes Status: Acute Plan to address problem: Problem multifactorial etiology. Check iron and B12 and folate stores. Follow- up hemoglobin (5) AIDS (acquired immunodeficiency syndrome), CD4 <=200 Current Visit: Yes Status: Acute Plan to address problem: Continue management by infectious disease consultants (6) Bilateral pneumonia Current Visit: Yes Status: Acute Qualifiers: Pneumonia type: due to unspecified organism Lung location: unspecified part of lung Qualified Code(s): J18.9 - Pneumonia, unspecified organism Plan to address problem: Continue antibiotics per infectious disease environmental consultant
[2018-06-24] MEDS ORDERED: .VANCOMYCIN VIAL 1,000 MG in NACL 0.9% 100 ML IV SCH (16:00)
--- NOTE | 2018-06-24 17:50 | Event Note ---
Date: 06/24/18 I'll order a DVT study to re-evaluate the prior DVT. Based on venous report, which is very unclear, not sure if patient has ICMVT (isolated calf muscle venous thrombus) or a distal DVT. I'll repeat study and then we can make decisions about IVC filter.
[2018-06-24] MEDS ORDERED: VANCOMYCIN 1,500 MG in NACL 0.9% 500 ML 500 ML IV SCH (18:00)
--- NOTE | 2018-06-24 21:59 | Ultrasound Report ---
FINAL REPORT PROCEDURE: US RENAL BILAT TECHNIQUE: Real-time sonography in multiple planes of the kidneys, ureters and urinary bladder was p erformed with image documentation. CPT 07763 HISTORY: Acute kidney injury COMPARISON: No prior studies are available for comparison. FINDINGS: RIGHT kidney: Normal echotexture. There is no mass or stone. There is mild hydronephrosis.. Length: 1 3.5 cm. LEFT kidney: Normal echotexture. No focal renal mass, calculus, or hydronephrosis. Length: 12.5cm. Bladder: Urinary bladder is distended. There are no stones or masses.. IMPRESSION: There is mild right hydronephrosis. There distension of the urinary bladder. No stones are identified ..
[2018-06-24 23:07] LABS: Bacteria,Urine 1+ /HPF (Negative); Bilirubin,Urine NEG (Negative); Blood,Urine NEG (Negative); Color,Urine Yellow (Yellow); Hyaline Casts,Urine 1 /LPF; Protein,Urine <15 mg/dL mg/dL (Negative); Urobilinogen,Urine < 2.0 mg/dL (<2.0)
[2018-06-24 23:19] LABS: Creatinine,Urine 47.2 mg/dL (0.1-20.0)
[2018-06-24] MEDS ORDERED: NACL 0.9% 1000 ML 1,000 ML IV ONE (23:47)
[2018-06-25] MEDS: TYLENOL PO PRN (00:04)
[2018-06-25] MEDS: HumaLOG SUB-Q SCH ×4 (00:10→18:55)
[2018-06-25] MEDS: D5W IV SCH ×3 (00:30→10:34)
[2018-06-25] MEDS: BACTRIM IV SCH ×2 (00:30→06:38)
[2018-06-25] MEDS: fentaNYL DRIP Premix 2,000 MCG/100 ML BAG IV SCH ×3 (01:45→21:46)
[2018-06-25] MEDS: NACL 0.45% 1000 ML 1,000 ML IV SCH ×2 (02:46→17:55)
[2018-06-25] MEDS: NEO-SYNEPHRINE NS PRN (05:35)
--- NOTE | 2018-06-25 06:22 | XRay Report ---
FINAL REPORT PROCEDURE: XR CHEST 1V AP TECHNIQUE: Chest radiograph anteroposterior view. CPT 06370 HISTORY: follow up respiratory failure COMPARISON: No prior studies are available for comparison. FINDINGS: Heart: Normal. Mediastinum/Vessels: Normal. Lungs/Pleural space: There is mild bilateral perihilar pulmonary edema. There are no effusions or pne umothoraces.. Bony thorax: No acute osseous abnormality. Life support devices: Endotracheal tube is the mid trachea. NG tube is in the stomach. There is a rig ht-sided central venous catheter. The tip is in the superior vena cava.. IMPRESSION: The heart size is normal.. There is mild bilateral perihilar pulmonary edema. There are no effusions or pneumothoraces.. Endotracheal tube is the mid trachea. NG tube is in the stomach. There is a right-sided central venou s catheter. The tip is in the superior vena cava..
[2018-06-25] MEDS: DIPRIVAN 10 MG/ML 1,000 MG/100 ML BOTTLE IV SCH ×3 (06:57→21:50)
--- NOTE | 2018-06-25 08:33 | Progress Note ---
Assessment and Plan - Patient Problems (1) Acute kidney failure with tubular necrosis Current Visit: Yes Status: Acute Plan to address problem: Multifactorial in setting of pre-renal injury, ATN secondary sepsis, contrast exposure, voriconazole, bactrim/antibiotic exposure. Will monitor, continue current supportive care. Need to adjust dose antimicro bials for his decreased renal clearance. Avoid nephrotoxins as much as possible in this critically ill patient with worsening renal injury. (2) Acute respiratory failure with hypoxia Current Visit: Yes Status: Acute Plan to address problem: Management per ICU team. (3) Bilateral pneumonia Current Visit: Yes Status: Acute Qualifiers: Pneumonia type: due to unspecified organism Lung location: unspecified part of lung Qualified Code(s): J18.9 - Pneumonia, unspecified organism Plan to address problem: Antibiotics per ID recommendations. (4) AIDS (acquired immune deficiency syndrome) Current Visit: Yes Status: Acute Plan to address problem: Management per ID. (5) Anemia Current Visit: Yes Status: Acute Plan to address problem: Assess folate and B12 levels, monitor closely. Transfuse to maintain Hgb >7.0. Subjective Date of service: 06/25/18 Principal diagnosis: Acute Hypoxemic Resp Failure; AIDS / HIV positive; Severe Sepsis due to PNA Interval history: No acute changes overnight. Remains critically ill. Labs pending this am. renal function has been steadily worsening. UO remains stable. Remains intubated. No pressors. Objective - Vital Signs Vital signs: Vital Signs - 12hr 06/24/18 06/24/18 06/24/18 21:00 22:00 23:00 Temperature Pulse Rate 118 H 120 H 129 H Respiratory 30 H 30 H 30 H Rate Blood Pressure 122/77 125/76 120/60 O2 Sat by Pulse 94 95 94 Oximetry 06/24/18 06/25/18 06/25/18 23:23 00:00 01:00 Temperature 99.1 F Pulse Rate 128 H 129 H 126 H Respiratory 30 H 27 H 22 Rate Blood Pressure 116/62 121/65 121/69 O2 Sat by Pulse 96 96 95 Oximetry 06/25/18 06/25/18 06/25/18 02:01 03:00 04:00 Temperature 98.9 F Pulse Rate 123 H 123 H 118 H Respiratory 30 H 26 H 28 H Rate Blood Pressure 121/70 127/81 133/79 O2 Sat by Pulse 95 93 93 Oximetry 06/25/18 06/25/18 06/25/18 04:34 05:00 06:00 Temperature Pulse Rate 117 H 123 H 123 H Respiratory 29 H 28 H Rate Blood Pressure 138/81 141/79 145/82 O2 Sat by Pulse 95 93 94 Oximetry 06/25/18 07:00 Temperature Pulse Rate 126 H Respiratory 25 H Rate Blood Pressure 141/80 O2 Sat by Pulse 92 Oximetry - General Appearance General appearance: chronically ill, sedated on ventilator, intubated EENT: ATNC, PERRL Neck: no JVD, no thyromegaly Respiratory: Present: Ronchi Cardiology: tachycardia Gastrointestinal: normal, normoactive bowel sounds Integumentary: warm and dry Neurologic: other (sedated) Psychiatric: agitated - Lab 06/24/18 04:12 06/24/18 04:12 Most recent lab results Calcium 7.5 mg/dL (8.4-10.2) L 06/24/18 04:12 Urine Creatinine 47.2 mg/dL (0.1-20.0) H 06/24/18 22:45 Urine Sodium 40 mmol/L 06/24/18 22:45 Urine Total Protein 25 mg/dL (5-11.8) H 06/24/18 22:45 - Imaging Chest x-ray: pending - Allied health notes Allied health notes reviewed: nursing Medications & Allergies - Medications Allergies/Adverse Reactions: Allergies No Known Allergies Allergy (Verified 06/19/18 06:10) Home Medications: Home Medications Medication Instructions Recorded Confirmed Last Taken Type ALBUTEROL Inhaler (OR & NICU) 2 puff IH QID PRN 06/19/18 06/19/18 Unknown History [Proair] Pantoprazole [Protonix] 40 mg PO QDAY 06/19/18 06/19/18 Unknown History levoFLOXacin [Levaquin TAB] 500 mg PO QDAY 06/19/18 06/19/18 Unknown History Active Medications: Generic Name Dose Route Start Last Admin Trade Name Freq PRN Reason Stop Dose Admin Acetaminophen 650 mg 06/19/18 06:30 06/25/18 00:04 Tylenol PO 650 mg Q4H PRN Administration Pain MILD(1-3)/Fever >100.5/[place] Lipase/Protease/Amylase 1 each 06/19/18 16:02 Pancremeseret Arroyo 10,500 Unit FEEDTUBE PRN PRN For Clogged Feeding Tube Famotidine 20 mg 06/25/18 10:00 Pepcid PO DAILY PEYTON Fentanyl 50 mcg 06/19/18 06:00 06/21/18 02:05 Sublimaze IV 50 mcg Q10MIN PRN Administration ANALGESIA Hydrophilic Ointment 1 applic 06/19/18 06:00 Vaseline Lip Therapy TP Q2HR PRN Dry Lips Fentanyl Citrate 2,000 mcg in 100 mls @ 3.86 mls/hr 06/19/18 06:00 06/25/18 02:30 Fentanyl Drip Premix IV 1 mcg/kg/hr TITR PEY[facility] 3.86 mls/hr Titration Protocol 1 MCG/KG/HR Midazolam HCl 100 mg/ Sodium 100 mls @ 2 mls/hr 06/19/18 06:00 06/25/18 01:54 Chloride IV 0 mg/hr TITR PEYTON 0 mls/hr Titration Protocol 2 MG/HR Norepinephrine 4 mg in 250 mls @ 7.5 mls/hr 06/19/18 15:00 06/19/18 22:00 Levophed Drip 4 Mg/Ns 250 Ml IV 0 mcg/min TITR [facility]YTON 0 mls/hr Titration Protocol 2 MCG/MIN Sodium Chloride 1,000 mls @ 75 mls/hr 06/22/18 21:00 06/25/18 02:46 Nacl 0.45% 1000 Ml IV 75 mls/hr DIRECT [facility] Administration Propofol 1,000 mg in 100 mls @ 2.601 mls/hr 06/24/18 15:00 06/25/18 06:57 Diprivan 10 Mg/Ml IV 15 mcg/kg/min TITR [facility] 7.803 mls/hr Administration Protocol 5 MCG/KG/MIN Trimethoprim/Sulfamethoxazole 525 mls @ 350 mls/hr 06/25/18 22:00 400 mg/ Dextrose IV Q12HR [facility] Protocol Amphotericin B 400 mg/ 580 mls @ 250 mls/hr 06/25/18 10:00 Dextrose IV Q24HR [facility] Insulin Human Lispro 0 unit 06/20/18 13:00 06/25/18 05:34 Humalog SUB-Q 2 unit Q6HR [facility] Administration Protocol Methylprednisolone Sodium Succinate 40 mg 06/19/18 22:00 06/24/18 21:50 Solu-Medrol IV 40 mg Q12HR [facility] Administration Multi-Ingred Cream/Lotion/Oil/Oint 1 applic 06/19/18 06:00 Artificial Tears Ophth Oint OU Q4HR PRN Dry Eye(s) Ondansetron HCl 4 mg 06/19/18 06:30 Zofran IV Q8H PRN Nausea And Vomiting Phenylephrine HCl 2 spray 06/24/18 06:07 06/25/18 05:35 Thompson-Synephrine NS 2 spray Q4H PRN Administration Congestion Quetiapine Fumarate 200 mg 06/21/18 22:00 06/24/18 21:50 Seroquel PO 200 mg BID PEYTON Administration Simple Syrup 15 ml 06/19/18 16:02 Simple Syrup FEEDTUBE PRN PRN Hypoglycemia Simple Syrup 30 ml 06/19/18 16:02 Simple Syrup FEEDTUBE PRN PRN Hypoglycemia Sodium Bicarbonate 325 mg 06/19/18 16:02 Sodium Bicarbonate FEEDTUBE PRN PRN For Clogged Feeding Tube Sodium Chloride 10 ml 06/19/18 10:00 06/24/18 21:35 Sodium Chloride Flush Syringe 10 Ml IV 10 ml BID PEYTON Administration Sodium Chloride 10 ml 06/19/18 06:30 Sodium Chloride Flush Syringe 10 Ml IV PRN PRN LINE FLUSH
--- NOTE | 2018-06-25 09:59 | Progress Note ---
Assessment and Plan Cultures: 06/19/2018 blood culture: no growth 06/19/2018 tracheal aspirate: usual resp david/ Rothia mucilaginosa 06/19/2018 fungal blood culture: no growth 06/20/2018 Serum CrAg: negative Cytology PJP stain negative GMS stain showed septated fungal hyphae with acute angle branching and yeast forms c/w Aspergillus, Fusarium, Scedosporium and other Dematiaceous fungi. DFA showed rare PJP A/P: 32/M with: #1 Bilateral pneumonia: Extensive bilateral ground glass opacities and pneumonia with severe hypoxia. Unclear etiology ? PJP versus invasive fungal. 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 Lung cytology GMS stain showed septated fungal hyphae with acute angle branching and yeast forms c/w Aspergillus, Fusarium, Scedosporium and other Dematiaceous fungi. 06/19/2018 tracheal aspirate showed usual resp david/ Rothia mucilaginosa. 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 patient has been on bactrim IV for 5 days and IV voriconazole for 4 days witouht any improvement on vent setting still at FiO2 70% p12. #2 Acute respiratory failure: Requiring mechanical ventilation. Not better still FIo2 70% p 15 #3 HIV, likely AIDS:CD4=10 / VL 1,300,000 copies #4 Sepsis: Likely secondary to above. #5 JENNIFER: worsening on bactrim IV and voriconazole and now vanco - all renally adjusted Recs: Appreciate Renal consult f/u serum BAL-Galactomannan antigen and Podt-Y-htqmol assay, histoplasma urine ag and cocci serology stop voriconazole renally adjusted D4 - no vent improvement start renally adjusted liposomal Amphothericin in light of worsening oxygenation continue bactrim renally adjusted D5 continue vancomycin renally dosed to cover Rothia D2 continue azithromycin 1200 mg qweek for MAC prophylaxis Continue IV steroids F/u CMV PCR f/u F/u genotype, CMV Overall prognosis poor - no clinical improvement after 5 days of appropriate antimicrobial therapy with advanced AIDS now with worsening renal failure. Will follow Keke Manzo MD Infectious Diseases [employer] [facility] M [phone] O [phone] Subjective Date of service: 06/25/18 Principal diagnosis: Acute Hypoxemic Resp Failure; AIDS / HIV positive; Severe Sepsis due to PNA Interval history: Patient remains intubated on CMV FiO2 70%, p 15, sedated on 2 sedatives. Tmax 99.8 ROS unable to obtain Objective - Exam Narrative Exam: General appearance: sedated on the vent FIO2 70% p15 Eyes: anicteric sclerae, moist conjunctivae; no lid-lag; PERRLA HENT: Atraumatic; oropharynx +ETT. Neck: Trachea midline; supple, no thyromegaly or lymphadenopathy Lungs: shruthi rhonchi CV: tachycardic Abdomen: Soft, non-tender; no masses or hepatosplenomegaly Extremities: No peripheral edema or extremity lymphadenopathy Skin: Normal temperature, turgor and texture; no rash, ulcers or subcutaneous nodules Psych: sedated. Neuro: sedated Rust Right IJ TLC - Constitutional Vitals: Vital Signs Temp Pulse Resp BP Pulse Ox 97.7 F 124 H 26 H 136/82 94 06/25/18 08:00 06/25/18 09:36 06/25/18 09:01 06/25/18 09:36 06/25/18 09:36 Temperature -Last 24 Hours Temperature 97.7 F Temperature 98.9 F Temperature 99.1 F Temperature 98.9 F Temperature 99.1 F Temperature 98.7 F - Labs CBC & Chem 7: 06/24/18 04:12 06/24/18 04:12 Labs: Abnormal lab results 06/24/18 06/24/18 06/24/18 Range/Units 11:14 16:40 17:16 PT (12.2-14.9) Sec. INR (0.87-1.13) POC ABG pH 7.067 L (7.35-7.45) POC ABG pCO2 91.7 H (35-45) POC ABG pO2 134 H (80-105) POC Glucose 151 H 195 H (70-105) Urine WBC (Auto) (0.0-6.0) /HPF Urine Creatinine (0.1-20.0) mg/dL Urine Total Protein (5-11.8) mg/dL 06/24/18 06/24/18 06/24/18 Range/Units 18:03 22:45 22:45 PT (12.2-14.9) Sec. INR (0.87-1.13) POC ABG pH 7.234 L (7.35-7.45) POC ABG pCO2 59.9 H (35-45) POC ABG pO2 121 H (80-105) POC Glucose (70-105) Urine WBC (Auto) 9.0 H (0.0-6.0) /HPF Urine Creatinine 47.2 H (0.1-20.0) mg/dL Urine Total Protein 25 H (5-11.8) mg/dL 06/24/18 06/24/18 06/25/18 Range/Units Unknown 23:59 04:36 PT 15.6 H (12.2-14.9) Sec. INR 1.17 H (0.87-1.13) POC ABG pH 7.200 L (7.35-7.45) POC ABG pCO2 65.3 H (35-45) POC ABG pO2 (80-105) POC Glucose 233 H (70-105) Urine WBC (Auto) (0.0-6.0) /HPF Urine Creatinine (0.1-20.0) mg/dL Urine Total Protein (5-11.8) mg/dL 06/25/18 Range/Units 05:29 PT (12.2-14.9) Sec. INR (0.87-1.13) POC ABG pH (7.35-7.45) POC ABG pCO2 (35-45) POC ABG pO2 (80-105) POC Glucose 212 H (70-105) Urine WBC (Auto) (0.0-6.0) /HPF Urine Creatinine (0.1-20.0) mg/dL Urine Total Protein (5-11.8) mg/dL
[2018-06-25] MEDS: PEPCID PO SCH (10:32)
[2018-06-25] MEDS: SODIUM CHLORIDE FLUSH SYRINGE 10 ML IV SCH ×2 (10:32→21:46)
[2018-06-25] MEDS: SOLU-Medrol IV SCH ×2 (10:34→21:46)
[2018-06-25] MEDS: ABELCET IV SCH (10:34)
[2018-06-25] MEDS: D5W 500 ML IV PRN (10:35)
[2018-06-25] MEDS ORDERED: XYLOCAINE 2% INFILTRATI ONE (11:00)
[2018-06-25] MEDS ORDERED: NACL 0.9% IR ONE (11:00)
[2018-06-25] MEDS ORDERED: VANCOMYCIN 1,750 MG in NACL 0.9% 500 ML 500 ML IV SCH (12:00)
[2018-06-25] MEDS: ZITHROMAX PO SCH (12:05)
[2018-06-25 12:06] LABS: Hematocrit 25.6 % (35.5-45.6); Hemoglobin 8.5 gm/dl (11.8-15.2); Mean Corpuscular HGB Conc 33 % (32-34); Mean Corpuscular Volume 96 fl (84-94); Platelet Count 216 K/mm3 (140-440); Red Blood Count 2.67 M/mm3 (3.65-5.03)
[2018-06-25 12:19] LABS: Calcium 7.5 mg/dL (8.4-10.2)
--- NOTE | 2018-06-25 15:10 | Progress Note ---
Assessment and Plan Assessment and plan: 32-year-old man with hypertension comes emergency room with complaints of shortness of breath, cough for 3days. He was found to have extensive bilateral pneumonia, placed on BiPAP but he failed. The patient had to be intubated. , ROS unobtainable. Altered bedside stated that the patient has very depressed since March, his at that time. He has been eating very little. 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 DFA showed rare PJP * Patient has been treated for bilateral pneumonia secondary to above-mentioned organisms * He also developed acute kidney injury likely secondary to Multifactorial etiology in setting of pre-renal injury, ATN secondary sepsis, contrast exposure, voriconazole, bactrim/antibiotic exposure. * Echocardiogram obtained that shows an EF of 55-60% with moderate pulmonary hypertension ARDS Acute respiratory failure with hypoxia requiring full mechanical ventilatory support Sepsis secondary to bilateral pneumonia Excessive bilateral pneumonia HIV/AIDS Hyponatremia Epixtasis JENNIFER secondary to Multifactorial in setting of pre-renal injury, ATN secondary sepsis, contrast exposure, voriconazole, bactrim/antibiotic exposure. 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 Since patient is from [place] ECHO ordered and pending CT chest when stable VAP precautions agree with continuation of Tamiflu till flu PCR is also noted. Awaiting family to assist with patient's medical history and any home medications DVT and GI prophylaxis Case discussed with nursing staff. No family present Onofre prognosis The high probability of a clinically significant, sudden or life threatening deterioration of the [Pulmonary] system(s) required my full and direct attention, intervention and personal management. The aggregate critical care time was [35] minutes. This time is in addition to time spent performing reported procedures but includes the following: [x] Data Review and interpretation [x] Patient assessment and monitoring of vital signs [x] Documentation [x] Medication orders and management History Interval history: Patient seen and examined grimace a full ventilatory support. noted with nasal bleed. still in critical condition with tachycardia and tachypnea Hospitalist Physical - Physical exam Narrative exam: VITAL SIGNS: Reviewed. GENERAL: still in severe distress. on Full mechanical ventilation Vital signs as documented. HEAD: No signs of head trauma. EYES: Pupils are equal. Extraocular motions intact. EARS: Hearing grossly intact. MOUTH: ETT NECK: No adenopathy, no JVD. CHEST: Tachypenia, with bilateral crackles.. CARDIAC: Tachycardai S1 and S2, without murmurs, gallops, or rubs. VASCULAR: No Edema. Peripheral pulses normal and equal in all extremities. ABDOMEN: Soft, without detectable tenderness. No sign of distention. No rebound or guarding, and no masses palpated. Bowel Sounds normal. MUSCULOSKELETAL: . Extremities without clubbing, cyanosis or edema. NEUROLOGIC EXAM: awake, orientation unable to assess. PSYCHIATRIC: Mood unable to assess SKIN: No rash or lesions. - Constitutional Vitals: Temp Pulse Resp BP Pulse Ox 97.7 F 129 H 30 H 110/62 98 06/25/18 08:00 06/25/18 13:36 06/25/18 13:01 06/25/18 13:36 06/25/18 13:36 Results - Labs CBC & Chem 7: 06/25/18 11:40 06/25/18 11:40 Labs: Laboratory Last Values WBC 10.1 K/mm3 (4.5-11.0) 06/25/18 11:40 RBC 2.67 M/mm3 (3.65-5.03) L 06/25/18 11:40 Hgb 8.5 gm/dl (11.8-15.2) L 06/25/18 11:40 Hct 25.6 % (35.5-45.6) L 06/25/18 11:40 MCV 96 fl (84-94) H 06/25/18 11:40 MCH 32 pg (28-32) 06/25/18 11:40 MCHC 33 % (32-34) 06/25/18 11:40 RDW 16.0 % (13.2-15.2) H 06/25/18 11:40 Plt Count 216 K/mm3 (140-440) 06/25/18 11:40 Add Manual Diff Complete 06/20/18 08:13 Total Counted 100 06/20/18 08:13 Seg Neutrophils % Roll Examiner 06/20/18 08:13 Seg Neuts % (Manual) 99.0 % (40.0-70.0) H 06/20/18 08:13 Band Neutrophils % 0 % 06/20/18 08:13 Lymphocytes % (Manual) 1.0 % (13.4-35.0) L 06/20/18 08:13 Reactive Lymphs % (Man) 0 % 06/20/18 08:13 Monocytes % (Manual) 0 % (0.0-7.3) 06/20/18 08:13 Eosinophils % (Manual) 0 % (0.0-4.3) 06/20/18 08:13 Basophils % (Manual) 0 % (0.0-1.8) 06/20/18 08:13 Metamyelocytes % 0 % 06/20/18 08:13 Myelocytes % 0 % 06/20/18 08:13 Promyelocytes % 0 % 06/20/18 08:13 Blast Cells % 0 % 06/20/18 08:13 Nucleated RBC % Not Reportable 06/20/18 08:13 Seg Neutrophils # Man 11.7 K/mm3 (1.8-7.7) H 06/20/18 08:13 Band Neutrophils # 0.0 K/mm3 06/20/18 08:13 Abs Lymphs (Manual) 409 cells/uL (850-3900) L 06/19/18 07:11 Lymphocytes # (Manual) 0.1 K/mm3 (1.2-5.4) L 06/20/18 08:13 Abs React Lymphs (Man) 0.0 K/mm3 06/20/18 08:13 Monocytes # (Manual) 0.0 K/mm3 (0.0-0.8) 06/20/18 08:13 Eosinophils # (Manual) 0.0 K/mm3 (0.0-0.4) 06/20/18 08:13 Basophils # (Manual) 0.0 K/mm3 (0.0-0.1) 06/20/18 08:13 Metamyelocytes # 0.0 K/mm3 06/20/18 08:13 Myelocytes # 0.0 K/mm3 06/20/18 08:13 Promyelocytes # 0.0 K/mm3 06/20/18 08:13 Blast Cells # 0.0 K/mm3 06/20/18 08:13 WBC Morphology Not Reportable 06/20/18 08:13 Hypersegmented Neuts Not Reportable 06/20/18 08:13 Hyposegmented Neuts Not Reportable 06/20/18 08:13 Hypogranular Neuts Not Reportable 06/20/18 08:13 Smudge Cells Not Reportable 06/20/18 08:13 Toxic Granulation Not Reportable 06/20/18 08:13 Toxic Vacuolation Not Reportable 06/20/18 08:13 Dohle Bodies Not Reportable 06/20/18 08:13 Pelger-Huet Anomaly Not Reportable 06/20/18 08:13 Loretta Rods Not Reportable 06/20/18 08:13 Platelet Estimate Consistent w auto 06/20/18 08:13 Clumped Platelets Not Reportable 06/20/18 08:13 Plt Clumps, EDTA Not Reportable 06/20/18 08:13 Large Platelets Not Reportable 06/20/18 08:13 Giant Platelets Not Reportable 06/20/18 08:13 Platelet Satelliting Not Reportable 06/20/18 08:13 Plt Morphology Comment Not Reportable 06/20/18 08:13 RBC Morphology Not Reportable 06/20/18 08:13 Dimorphic RBCs Not Reportable 06/20/18 08:13 Polychromasia Not Reportable 06/20/18 08:13 Hypochromasia Not Reportable 06/20/18 08:13 Poikilocytosis 1+ 06/20/18 08:13 Anisocytosis 1+ 06/20/18 08:13 Microcytosis Not Reportable 06/20/18 08:13 Macrocytosis Not Reportable 06/20/18 08:13 Spherocytes Not Reportable 06/20/18 08:13 Pappenheimer Bodies Not Reportable 06/20/18 08:13 Sickle Cells Not Reportable 06/20/18 08:13 Target Cells Not Reportable 06/20/18 08:13 Tear Drop Cells Not Reportable 06/20/18 08:13 Ovalocytes 1+ 06/20/18 08:13 Helmet Cells Not Reportable 06/20/18 08:13 [place] Bodies Not Reportable 06/20/18 08:13 [place] Rings Not Reportable 06/20/18 08:13 [place] Cells Not Reportable 06/20/18 08:13 Bite Cells Not Reportable 06/20/18 08:13 Crenated Cell Not Reportable 06/20/18 08:13 Elliptocytes Not Reportable 06/20/18 08:13 Acanthocytes (Spur) Not Reportable 06/20/18 08:13 Rouleaux Not Reportable 06/20/18 08:13 Hemoglobin C Crystals Not Reportable 06/20/18 08:13 Schistocytes Not Reportable 06/20/18 08:13 Malaria parasites Not Reportable 06/20/18 08:13 Jesus Bodies Not Reportable 06/20/18 08:13 Hem Pathologist Commnt No 06/20/18 08:13 PT 15.6 Sec. (12.2-14.9) H 06/24/18 Unknown INR 1.17 (0.87-1.13) H 06/24/18 Unknown APTT 28.7 Sec. (24.2-36.6) 06/19/18 Unknown Fibrinogen 405 mg/dl (211-480) 06/24/18 Unknown D-Dimer 8449.09 ng/mlDDU (0-234) H 06/19/18 Unknown POC ABG pH 7.200 (7.35-7.45) L 06/25/18 04:36 POC ABG pCO2 65.3 (35-45) H 06/25/18 04:36 POC ABG pO2 94 (80-105) 06/25/18 04:36 POC ABG HCO3 25.6 06/25/18 04:36 POC ABG Total CO2 28 06/25/18 04:36 POC ABG O2 Sat 95 06/25/18 04:36 POC ABG Base Excess -2 06/25/18 04:36 FiO2 70 % 06/25/18 04:36 Sodium 137 mmol/L (137-145) 06/25/18 11:40 Potassium 5.8 mmol/L (3.6-5.0) H 06/25/18 11:40 Chloride 100.6 mmol/L (98-107) 06/25/18 11:40 Carbon Dioxide 25 mmol/L (22-30) 06/25/18 11:40 Anion Gap 17 mmol/L 06/25/18 11:40 BUN 48 mg/dL (9-20) H 06/25/18 11:40 Creatinine 2.1 mg/dL (0.8-1.5) H 06/25/18 11:40 Estimated GFR 37 ml/min 06/25/18 11:40 BUN/Creatinine Ratio 23 % 06/25/18 11:40 Glucose 293 mg/dL (75-100) H 06/25/18 11:40 POC Glucose 244 (70-105) H 06/25/18 11:12 Lactic Acid 1.70 mmol/L (0.7-2.0) 06/19/18 05:26 Calcium 7.5 mg/dL (8.4-10.2) L 06/25/18 11:40 Total Bilirubin < 0.20 mg/dL (0.1-1.2) 06/23/18 05:11 Direct Bilirubin < 0.2 mg/dL (0-0.2) 06/19/18 Unknown Indirect Bilirubin 0.2 mg/dL 06/19/18 Unknown AST 63 units/L (5-40) H 06/23/18 05:11 ALT 297 units/L (7-56) H 06/23/18 05:11 Alkaline Phosphatase 127 units/L (35-129) 06/23/18 05:11 Troponin T < 0.010 ng/mL (0.00-0.029) 06/19/18 Unknown C-Reactive Protein 1.60 mg/dL (0.00-1.30) H 06/23/18 18:40 NT-Pro-B Natriuret Pep 226.4 pg/mL (0-450) 06/19/18 Unknown Total Protein 5.3 g/dL (6.3-8.2) L 06/23/18 05:11 Albumin 2.4 g/dL (3.9-5) L 06/23/18 05:11 Albumin/Globulin Ratio 0.8 % 06/23/18 05:11 Urine Color Yellow (Yellow) 06/24/18 22:45 Urine Turbidity Slightly-cloudy (Clear) 06/24/18 22:45 Urine pH 5.0 (5.0-7.0) 06/24/18 22:45 Ur Specific [place] 1.014 (1.003-1.030) 06/24/18 22:45 Urine Protein <15 mg/dl mg/dL (Negative) 06/24/18 22:45 Urine Glucose (UA) Neg mg/dL (Negative) 06/24/18 22:45 Urine Ketones Neg mg/dL (Negative) 06/24/18 22:45 Urine Blood Neg (Negative) 06/24/18 22:45 Urine Nitrite Neg (Negative) 06/24/18 22:45 Urine Bilirubin Neg (Negative) 06/24/18 22:45 Urine Urobilinogen < 2.0 mg/dL (<2.0) 06/24/18 22:45 Ur Leukocyte Esterase Neg (Negative) 06/24/18 22:45 Urine WBC (Auto) 9.0 /HPF (0.0-6.0) H 06/24/18 22:45 Urine RBC (Auto) 19.0 /HPF (0.0-6.0) 06/24/18 22:45 U Epithel Cells (Auto) < 1.0 /HPF (0-13.0) 06/19/18 08:07 Urine Bacteria (Auto) 1+ /HPF (Negative) 06/24/18 22:45 Hyaline Casts 1 /LPF 06/24/18 22:45 Urine Mucus Few /HPF 06/19/18 08:07 Urine Yeast (Budding) 1+ /HPF 06/24/18 22:45 Urine Eosinophils None seen (None Seen) 06/24/18 22:45 Urine Creatinine 47.2 mg/dL (0.1-20.0) H 06/24/18 22:45 Urine Sodium 40 mmol/L 06/24/18 22:45 Urine Total Protein 25 mg/dL (5-11.8) H 06/24/18 22:45 Random Vancomycin 6.5 ug/mL (0-40.0) 06/25/18 11:40 Urine Opiates Screen Presumptive negative 06/19/18 08:06 Urine Methadone Screen Presumptive negative 06/19/18 08:06 Ur Barbiturates Screen Presumptive negative 06/19/18 08:06 Ur Phencyclidine Scrn Presumptive negative 06/19/18 08:06 Ur Amphetamines Screen Presumptive negative 06/19/18 08:06 U Benzodiazepines Scrn Presumptive positive 06/19/18 08:06 Urine Cocaine Screen Presumptive negative 06/19/18 08:06 U Marijuana (THC) Screen Presumptive negative 06/19/18 08:06 Drugs of Abuse Note Disclamer 06/19/18 08:06 Lymph Enumerat CD4/CD8 0.05 (0.86-5.00) L 06/19/18 07:11 % CD3 Cells 45 % (57-85) L 06/19/18 07:11 Absolute CD3 Count 185 cells/uL (840-3060) L 06/19/18 07:11 % CD4 Cells 2 % (30-61) L 06/19/18 07:11 Absolute CD4 Count 10 cells/uL (490-1740) L 06/19/18 07:11 % CD8 Cells 43 % (12-42) H 06/19/18 07:11 Absolute CD8 Count 167 cells/uL (180-1170) L 06/19/18 07:11 % CD19 Cells 18 % (6-29) 06/19/18 07:11 Absolute CD19 Count 79 cells/uL (110-660) L 06/19/18 07:11 Hepatitis A IgM Ab Non-reactive (NonReactive) 06/21/18 04:19 Hep Bs Antigen Non-reactive (Negative) 06/21/18 04:19 Hep B Core IgM Ab Non-reactive (NonReactive) 06/21/18 04:19 Hepatitis C Antibody Non-reactive (NonReactive) 06/21/18 04:19 HIV DNA Qual (PCR) Detected (Not Detected) H 06/19/18 09:20 HIV-1 Antibody See scanned results 06/19/18 07:12 HIV-1 RNA PCR copies/ml [id number] Copies/mL H 06/19/18 15:16 HIV-1 RNA (PCR) log 6.11 Log cps/mL H 06/19/18 15:16 HIV-2 Ab (Immunoblot) See scanned results 06/19/18 07:12 HIV 1&2 Antibody Rapid Reactive (Non React) 06/19/18 07:10 HIV P24 Antigen Invalid (Non React) 06/19/18 07:10 Influenza A (Rapid) Negative (Negative) 06/19/18 Unknown Influenza A (RT-PCR) Negative (Negative) 06/21/18 12:30 Influenza B (Rapid) Negative (Negative) 06/19/18 Unknown Influenza B (RT-PCR) Negative (Negative) 06/21/18 12:30 Miscellaneous Test see below H 06/21/18 12:32 Nutrition/Malnutrition Assess - Dietary Evaluation Nutrition/Malnutrition Findings: Nutrition Notes Start: 06/19/18 14:17 Freq: Status: Active Protocol: Document 06/21/18 12:47 CT (Rec: 06/21/18 14:14 CT [id number]) Co-Sign 06/21/18 12:47 LP Nutrition Notes Initial or Follow up Reassessment Current Diagnosis Hypertension Other Pertinent Diagnosis SOB, bilateral pneumonia, HIV Current Diet TF- Osmolite 1.5 @60mls/hr Labs/Tests Na: 135 Cr: 0.7 B Pertinent Medications Reviewed. Height 5 ft 9 in Weight 78.4 kg [place] Body Weight (kg) 72.72 BMI 25.5 Weight Status Overweight Subjective/Other Information Observed TF infusing at 50mls/ hr. Spoke with RN who reported pt is tolerating TF well and ina soon be advanced to goal. Percent of needs met calculated based on 50ml/hr Percent of energy/protein needs met: 83%81/% Burn Absent Trauma Absent #1 Nutrition Diagnosis Inadequate oral intake Diagnosis Progress(for reassessment Continues documentation) Is patient on ventilator? Yes Is Patient Ambulatory and/or Out of Bed No REE-([facility]-confined to bed) 2070.380 Calculation Used for Recommendations [facility] Additional Notes PRO: 93 - 154g PRO (1.2 - 2g KG ABW) fluid: 1 ml/kcal Nutrition Intervention Change Diet Order: Continue TF Nutrition Support: Osmolite 1.5 at 60mL/hr with 175mL flush q4h Kcal 2,169 Protein (gm) 90 Carbohydrates (gm) 293 Fat (gm) 70 Fluid (mL) 1,097 Fiber (gm) 0 Goal #1 TF at goal Goal #2 TF to meet 80-100% of kcal and protein needs. Anticipated Discharge Needs: Unable to determine at this time Follow-Up By: 06/26/18 Additional Comments F/U: TF at goal rate
--- NOTE | 2018-06-25 15:10 | Vascular Lab Report ---
FINAL REPORT EXAM: VL VENOUS DUPLEX LE BILAT HISTORY: prior dvt, re-evaluate COMPARISON: Ultrasound of the bilateral lower extremities performed on 06/19/2018 TECHNIQUE: Duplex Doppler ultrasound of the veins of the bilateral lower extremities was performed. FINDINGS: The veins of the left lower extremity are patent, compressible, and demonstrate normal waveforms and augmentation. Again seen is noncompressibility of the right gastrocnemius veins. The remainder of the veins of the right lower extremity are patent, compressible, and demonstrate normal waveforms and augmentation. IMPRESSION: Unchanged noncompressibility of the right gastrocnemius veins concerning for persistent deep venous t hrombosis.
--- NOTE | 2018-06-25 15:25 | Progress Note ---
Assessment and Plan ARDS Acute Hypoxemic Respiratory Failure on MVS AIDS / HIV positive Severe Sepsis due to Pneumonia Hyponatremia Severe metabolic acidosis Shock liver - bronchoscopy done at bedside - continue to target TV 4-6 ml/kg IBW - continue current vent settings (rate 30/min; TV 400mls with Peep at 15 now) - wean supplemental oxygen to keep O2 sats > 89% - permissive hypercapnia at this point - continue propofol to improve sedation and reduce patient ventilator dys- synchrony on high Peep settings - Cytology negative for PCP - continue anti-infectives per ID recs - 2D ECHO with normal EF - continue seroquel at 300mg bid to aid weaning off IV sedatives - continue to titrate sedatives for RASS -2 will on ARDS ventilation - continue anti-infective's per ID recommendations - completed empiric TamiFlu - trend CRP and lactate levels as necessary to aid clinical decision making - continue bronchodilators with pulmonary hygiene per RT - continue hyperventilation acutely to compensate for metabolic acidosis - VAP bundle addressed - daily SAT's - Daily SBT assessment - GI & VTE prophylaxis - enteral nutrition as tolerated - continue accuchecks q6h with glycemic control per SSI for target BG 140-180 mg/dL - continue other care per attending / 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 re-evaluate in am & prn CODE STATUS: FULL CODE The high probability of a clinically significant, sudden or life-threatening deterioration of the [cardiac, neurology] system(s) required my full and direct attention, intervention and personal management. The aggregate critical care time was [35] minutes without overlap. Time includes spent on; [x] Data Review and interpretation [x] Patient assessment and monitoring of vital signs [x] Documentation [x] Medication orders and management Subjective Date of service: 06/25/18 Principal diagnosis: Acute Hypoxemic Resp Failure; AIDS / HIV positive; Severe Sepsis due to PNA Interval history: Patient is seen today for: Acute Hypoxemic Respiratory Failure on MVS; AIDS / HIV positive; Severe Sepsis due to Pneumonia; Hyponatremia; Severe metabolic acidosis Seen and examined at bedside; 24hour events reviewed; nursing and respiratory care staff consulted; no adverse overnight events reported to me; remains on MVS; remains with ARDS numbers; on LTVV and sedated; tolerating tube feeds; no high grade fevers; no emesis or overt aspiration; + episode of right epistaxis overnight and nose was packed Objective Vital Signs - 12hr 06/25/18 06/25/18 06/25/18 04:00 04:34 05:00 Temperature 98.9 F Pulse Rate 118 H 117 H 123 H Respiratory 28 H 29 H Rate Blood Pressure 133/79 138/81 141/79 O2 Sat by Pulse 93 95 93 Oximetry 06/25/18 06/25/18 06/25/18 06:00 07:00 08:00 Temperature 97.7 F Pulse Rate 123 H 126 H 122 H Respiratory 28 H 25 H 26 H Rate Blood Pressure 145/82 141/80 142/84 O2 Sat by Pulse 94 92 92 Oximetry 06/25/18 06/25/18 06/25/18 09:01 09:36 10:00 Temperature Pulse Rate 121 H 124 H 131 H Respiratory 26 H 29 H Rate Blood Pressure 135/82 136/82 146/87 O2 Sat by Pulse 92 94 92 Oximetry 06/25/18 06/25/18 06/25/18 11:00 12:00 12:55 Temperature Pulse Rate 124 H 133 H 130 H Respiratory 31 H 30 H Rate Blood Pressure 140/81 130/78 131/71 O2 Sat by Pulse 95 92 98 Oximetry 06/25/18 06/25/18 06/25/18 13:01 13:34 13:36 Temperature Pulse Rate 131 H 129 H Respiratory 30 H Rate Blood Pressure 125/68 110/62 O2 Sat by Pulse 96 98 98 Oximetry Constitutional: appears uncomfortable, other (young HM normocephalic and atraumatic with moderately increased respiratory effort at rest) Eyes: non-icteric ENT: oropharynx moist, other (ETT 23 cm SATISH) Neck: supple, no lymphadenopathy, no JVD, other (no thyromegaly) Effort: mildly labored Ascultation: Bilateral: diminished breath sounds, rhonchi Percussion: Bilateral: not dull Cardiovascular: regular rate and rhythm Gastrointestinal: normoactive bowel sounds, soft, non-tender, non-distended Integumentary: rash Extremities: no cyanosis, pink and warm, pulses normal, no ischemia or petechiae, edema (trace) Neurologic: non-focal exam (grossly), pupils equal and round, motor strength normal and, unable to assess Psychiatric: other (unable to assess) CBC and BMP: 06/27/18 05:15 06/27/18 05:15 ABG, PT/INR, D-dimer: ABG POC ABG pH 7.200 (7.35-7.45) L 06/25/18 04:36 POC ABG pCO2 65.3 (35-45) H 06/25/18 04:36 POC ABG pO2 94 (80-105) 06/25/18 04:36 POC ABG HCO3 25.6 06/25/18 04:36 POC ABG Total CO2 28 06/25/18 04:36 POC ABG O2 Sat 95 06/25/18 04:36 PT/INR, D-dimer PT 15.6 Sec. (12.2-14.9) H 06/24/18 Unknown INR 1.17 (0.87-1.13) H 06/24/18 Unknown D-Dimer 8449.09 ng/mlDDU (0-234) H 06/19/18 Unknown Abnormal lab findings: Abnormal Labs 06/19/18 06/19/18 06/19/18 03:31 07:11 07:42 WBC RBC Hgb Hct MCV RDW Seg Neuts % (Manual) Lymphocytes % (Manual) Seg Neutrophils # Man Abs Lymphs (Manual) 409 L Lymphocytes # (Manual) PT INR D-Dimer POC ABG pH 6.974 L POC ABG pCO2 22.0 L 83.4 H POC ABG pO2 28 L 122 H Sodium Potassium Chloride Carbon Dioxide BUN Creatinine Glucose POC Glucose Calcium AST ALT C-Reactive Protein Total Protein Albumin Ur Specific Eastern Urine WBC (Auto) Urine Creatinine Urine Total Protein Lymph Enumerat CD4/CD8 0.05 L % CD3 Cells 45 L Absolute CD3 Count 185 L % CD4 Cells 2 L Absolute CD4 Count 10 L % CD8 Cells 43 H Absolute CD8 Count 167 L Absolute CD19 Count 79 L HIV DNA Qual (PCR) HIV-1 RNA PCR copies/ml HIV-1 RNA (PCR) log Miscellaneous Test 06/19/18 06/19/18 06/19/18 08:07 08:16 09:20 WBC RBC Hgb Hct MCV RDW Seg Neuts % (Manual) Lymphocytes % (Manual) Seg Neutrophils # Man Abs Lymphs (Manual) Lymphocytes # (Manual) PT INR D-Dimer POC ABG pH 6.996 L POC ABG pCO2 82.4 H POC ABG pO2 Sodium Potassium Chloride Carbon Dioxide BUN Creatinine Glucose POC Glucose Calcium AST ALT C-Reactive Protein Total Protein Albumin Ur Specific Eastern 1.060 H Urine WBC (Auto) 8.0 H Urine Creatinine Urine Total Protein Lymph Enumerat CD4/CD8 % CD3 Cells Absolute CD3 Count % CD4 Cells Absolute CD4 Count % CD8 Cells Absolute CD8 Count Absolute CD19 Count HIV DNA Qual (PCR) Detected H HIV-1 RNA PCR copies/ml HIV-1 RNA (PCR) log Miscellaneous Test 06/19/18 06/19/18 06/19/18 09:49 11:15 15:16 WBC RBC Hgb Hct MCV RDW Seg Neuts % (Manual) Lymphocytes % (Manual) Seg Neutrophils # Man Abs Lymphs (Manual) Lymphocytes # (Manual) PT INR D-Dimer POC ABG pH 7.198 L 7.206 L POC ABG pCO2 POC ABG pO2 75 L Sodium Potassium Chloride Carbon Dioxide BUN Creatinine Glucose POC Glucose Calcium AST ALT C-Reactive Protein Total Protein Albumin Ur Specific Eastern Urine WBC (Auto) Urine Creatinine Urine Total Protein Lymph Enumerat CD4/CD8 % CD3 Cells Absolute CD3 Count % CD4 Cells Absolute CD4 Count % CD8 Cells Absolute CD8 Count Absolute CD19 Count HIV DNA Qual (PCR) HIV-1 RNA PCR copies/ml 3336165 H HIV-1 RNA (PCR) log 6.11 H Miscellaneous Test 06/19/18 06/19/18 06/19/18 18:54 Unknown Unknown WBC 12.9 H RBC Hgb Hct MCV RDW Seg Neuts % (Manual) Lymphocytes % (Manual) 5.0 L Seg Neutrophils # Man Abs Lymphs (Manual) Lymphocytes # (Manual) 0.6 L PT 15.9 H INR 1.19 H D-Dimer 8449.09 H POC ABG pH POC ABG pCO2 POC ABG pO2 Sodium Potassium Chloride Carbon Dioxide BUN Creatinine Glucose POC Glucose 196 H Calcium AST ALT C-Reactive Protein Total Protein Albumin Ur Specific Eastern Urine WBC (Auto) Urine Creatinine Urine Total Protein Lymph Enumerat CD4/CD8 % CD3 Cells Absolute CD3 Count % CD4 Cells Absolute CD4 Count % CD8 Cells Absolute CD8 Count Absolute CD19 Count HIV DNA Qual (PCR) HIV-1 RNA PCR copies/ml HIV-1 RNA (PCR) log Miscellaneous Test 06/19/18 06/19/18 06/20/18 Unknown Unknown 04:33 WBC RBC Hgb Hct MCV RDW Seg Neuts % (Manual) Lymphocytes % (Manual) Seg Neutrophils # Man Abs Lymphs (Manual) Lymphocytes # (Manual) PT INR D-Dimer POC ABG pH 7.249 L POC ABG pCO2 POC ABG pO2 118 H Sodium 129 L Potassium Chloride 90.7 L Carbon Dioxide 17 L BUN Creatinine 0.6 L Glucose 199 H POC Glucose Calcium 8.1 L AST 53 H ALT C-Reactive Protein Total Protein 6.0 L Albumin 2.8 L Ur Specific Eastern Urine WBC (Auto) Urine Creatinine Urine Total Protein Lymph Enumerat CD4/CD8 % CD3 Cells Absolute CD3 Count % CD4 Cells Absolute CD4 Count % CD8 Cells Absolute CD8 Count Absolute CD19 Count HIV DNA Qual (PCR) HIV-1 RNA PCR copies/ml HIV-1 RNA (PCR) log Miscellaneous Test 06/20/18 06/20/18 06/20/18 08:13 08:13 12:59 WBC 11.8 H RBC 3.25 L Hgb 9.8 L D Hct 30.4 L D MCV RDW Seg Neuts % (Manual) 99.0 H Lymphocytes % (Manual) 1.0 L Seg Neutrophils # Man 11.7 H Abs Lymphs (Manual) Lymphocytes # (Manual) 0.1 L PT INR D-Dimer POC ABG pH POC ABG pCO2 POC ABG pO2 Sodium Potassium Chloride Carbon Dioxide 19 L BUN Creatinine Glucose 223 H POC Glucose 174 H Calcium 6.6 L D AST 1240 H ALT 836 H C-Reactive Protein Total Protein 4.9 L Albumin 2.1 L Ur Specific Eastern Urine WBC (Auto) Urine Creatinine Urine Total Protein Lymph Enumerat CD4/CD8 % CD3 Cells Absolute CD3 Count % CD4 Cells Absolute CD4 Count % CD8 Cells Absolute CD8 Count Absolute CD19 Count HIV DNA Qual (PCR) HIV-1 RNA PCR copies/ml HIV-1 RNA (PCR) log Miscellaneous Test 06/20/18 06/20/18 06/21/18 17:42 23:44 04:08 WBC RBC Hgb Hct MCV RDW Seg Neuts % (Manual) Lymphocytes % (Manual) Seg Neutrophils # Man Abs Lymphs (Manual) Lymphocytes # (Manual) PT INR D-Dimer POC ABG pH 7.309 L POC ABG pCO2 POC ABG pO2 Sodium Potassium Chloride Carbon Dioxide BUN Creatinine Glucose POC Glucose 177 H 195 H Calcium AST ALT C-Reactive Protein Total Protein Albumin Ur Specific Eastern Urine WBC (Auto) Urine Creatinine Urine Total Protein Lymph Enumerat CD4/CD8 % CD3 Cells Absolute CD3 Count % CD4 Cells Absolute CD4 Count % CD8 Cells Absolute CD8 Count Absolute CD19 Count HIV DNA Qual (PCR) HIV-1 RNA PCR copies/ml HIV-1 RNA (PCR) log Miscellaneous Test 06/21/18 06/21/18 06/21/18 04:19 04:19 05:27 WBC 13.8 H RBC 3.02 L Hgb 9.2 L Hct 28.0 L MCV RDW Seg Neuts % (Manual) Lymphocytes % (Manual) Seg Neutrophils # Man Abs Lymphs (Manual) Lymphocytes # (Manual) PT INR D-Dimer POC ABG pH POC ABG pCO2 POC ABG pO2 Sodium 135 L Potassium Chloride Carbon Dioxide 21 L BUN Creatinine 0.7 L Glucose 161 H POC Glucose 187 H Calcium 7.2 L AST 390 H ALT 622 H C-Reactive Protein Total Protein 5.3 L Albumin 2.4 L Ur Specific Eastern Urine WBC (Auto) Urine Creatinine Urine Total Protein Lymph Enumerat CD4/CD8 % CD3 Cells Absolute CD3 Count % CD4 Cells Absolute CD4 Count % CD8 Cells Absolute CD8 Count Absolute CD19 Count HIV DNA Qual (PCR) HIV-1 RNA PCR copies/ml HIV-1 RNA (PCR) log Miscellaneous Test 06/21/18 06/21/18 06/21/18 11:33 12:32 17:45 WBC RBC Hgb Hct MCV RDW Seg Neuts % (Manual) Lymphocytes % (Manual) Seg Neutrophils # Man Abs Lymphs (Manual) Lymphocytes # (Manual) PT INR D-Dimer POC ABG pH POC ABG pCO2 POC ABG pO2 Sodium Potassium Chloride Carbon Dioxide BUN Creatinine Glucose POC Glucose 147 H 172 H Calcium AST ALT C-Reactive Protein Total Protein Albumin Ur Specific [place] Urine WBC (Auto) Urine Creatinine Urine Total Protein Lymph Enumerat CD4/CD8 % CD3 Cells Absolute CD3 Count % CD4 Cells Absolute CD4 Count % CD8 Cells Absolute CD8 Count Absolute CD19 Count HIV DNA Qual (PCR) HIV-1 RNA PCR copies/ml HIV-1 RNA (PCR) log Miscellaneous Test see below H 06/21/18 06/22/18 06/22/18 23:25 04:47 04:47 WBC 11.5 H RBC 2.93 L Hgb 9.0 L Hct 26.5 L MCV RDW Seg Neuts % (Manual) Lymphocytes % (Manual) Seg Neutrophils # Man Abs Lymphs (Manual) Lymphocytes # (Manual) PT INR D-Dimer POC ABG pH POC ABG pCO2 POC ABG pO2 Sodium Potassium Chloride Carbon Dioxide BUN 22 H Creatinine Glucose 201 H POC Glucose 152 H Calcium 7.8 L AST 129 H ALT 416 H C-Reactive Protein Total Protein 5.3 L Albumin 2.4 L Ur Specific Eastern Urine WBC (Auto) Urine Creatinine Urine Total Protein Lymph Enumerat CD4/CD8 % CD3 Cells Absolute CD3 Count % CD4 Cells Absolute CD4 Count % CD8 Cells Absolute CD8 Count Absolute CD19 Count HIV DNA Qual (PCR) HIV-1 RNA PCR copies/ml HIV-1 RNA (PCR) log Miscellaneous Test 06/22/18 06/22/18 06/22/18 05:23 11:43 17:45 WBC RBC Hgb Hct MCV RDW Seg Neuts % (Manual) Lymphocytes % (Manual) Seg Neutrophils # Man Abs Lymphs (Manual) Lymphocytes # (Manual) PT INR D-Dimer POC ABG pH POC ABG pCO2 POC ABG pO2 Sodium Potassium Chloride Carbon Dioxide BUN Creatinine Glucose POC Glucose 170 H 175 H 176 H Calcium AST ALT C-Reactive Protein Total Protein Albumin Ur Specific [place] Urine WBC (Auto) Urine Creatinine Urine Total Protein Lymph Enumerat CD4/CD8 % CD3 Cells Absolute CD3 Count % CD4 Cells Absolute CD4 Count % CD8 Cells Absolute CD8 Count Absolute CD19 Count HIV DNA Qual (PCR) HIV-1 RNA PCR copies/ml HIV-1 RNA (PCR) log Miscellaneous Test 06/23/18 06/23/18 06/23/18 00:24 05:06 05:11 WBC 11.2 H RBC 2.78 L Hgb 8.6 L Hct 25.3 L MCV RDW Seg Neuts % (Manual) Lymphocytes % (Manual) Seg Neutrophils # Man Abs Lymphs (Manual) Lymphocytes # (Manual) PT INR D-Dimer POC ABG pH POC ABG pCO2 POC ABG pO2 Sodium Potassium Chloride Carbon Dioxide BUN Creatinine Glucose POC Glucose 178 H 182 H Calcium AST ALT C-Reactive Protein Total Protein Albumin Ur Specific [place] Urine WBC (Auto) Urine Creatinine Urine Total Protein Lymph Enumerat CD4/CD8 % CD3 Cells Absolute CD3 Count % CD4 Cells Absolute CD4 Count % CD8 Cells Absolute CD8 Count Absolute CD19 Count HIV DNA Qual (PCR) HIV-1 RNA PCR copies/ml HIV-1 RNA (PCR) log Miscellaneous Test 06/23/18 06/23/18 06/23/18 05:11 05:51 12:21 WBC RBC Hgb Hct MCV RDW Seg Neuts % (Manual) Lymphocytes % (Manual) Seg Neutrophils # Man Abs Lymphs (Manual) Lymphocytes # (Manual) PT INR D-Dimer POC ABG pH POC ABG pCO2 POC ABG pO2 69 L Sodium Potassium Chloride Carbon Dioxide BUN 34 H Creatinine 1.7 H D Glucose 191 H POC Glucose 181 H Calcium 7.5 L AST 63 H ALT 297 H C-Reactive Protein Total Protein 5.3 L Albumin 2.4 L Ur Specific [place] Urine WBC (Auto) Urine Creatinine Urine Total Protein Lymph Enumerat CD4/CD8 % CD3 Cells Absolute CD3 Count % CD4 Cells Absolute CD4 Count % CD8 Cells Absolute CD8 Count Absolute CD19 Count HIV DNA Qual (PCR) HIV-1 RNA PCR copies/ml HIV-1 RNA (PCR) log Miscellaneous Test 06/23/18 06/23/18 06/23/18 13:57 17:00 18:40 WBC RBC Hgb Hct MCV RDW Seg Neuts % (Manual) Lymphocytes % (Manual) Seg Neutrophils # Man Abs Lymphs (Manual) Lymphocytes # (Manual) PT INR D-Dimer POC ABG pH POC ABG pCO2 POC ABG pO2 Sodium Potassium Chloride Carbon Dioxide BUN 38 H Creatinine 1.8 H Glucose POC Glucose 196 H Calcium AST ALT C-Reactive Protein 1.60 H Total Protein Albumin Ur Specific [place] Urine WBC (Auto) Urine Creatinine Urine Total Protein Lymph Enumerat CD4/CD8 % CD3 Cells Absolute CD3 Count % CD4 Cells Absolute CD4 Count % CD8 Cells Absolute CD8 Count Absolute CD19 Count HIV DNA Qual (PCR) HIV-1 RNA PCR copies/ml HIV-1 RNA (PCR) log Miscellaneous Test 06/23/18 06/23/18 06/24/18 21:16 23:22 04:12 WBC RBC 2.89 L Hgb 8.8 L Hct 26.9 L MCV RDW Seg Neuts % (Manual) Lymphocytes % (Manual) Seg Neutrophils # Man Abs Lymphs (Manual) Lymphocytes # (Manual) PT INR D-Dimer POC ABG pH 7.311 L POC ABG pCO2 47.4 H POC ABG pO2 Sodium Potassium Chloride Carbon Dioxide BUN Creatinine Glucose POC Glucose 165 H Calcium AST ALT C-Reactive Protein Total Protein Albumin Ur Specific [place] Urine WBC (Auto) Urine Creatinine Urine Total Protein Lymph Enumerat CD4/CD8 % CD3 Cells Absolute CD3 Count % CD4 Cells Absolute CD4 Count % CD8 Cells Absolute CD8 Count Absolute CD19 Count HIV DNA Qual (PCR) HIV-1 RNA PCR copies/ml HIV-1 RNA (PCR) log Miscellaneous Test 06/24/18 06/24/18 06/24/18 04:12 04:46 05:24 WBC RBC Hgb Hct MCV RDW Seg Neuts % (Manual) Lymphocytes % (Manual) Seg Neutrophils # Man Abs Lymphs (Manual) Lymphocytes # (Manual) PT INR D-Dimer POC ABG pH 7.250 L POC ABG pCO2 55.8 H POC ABG pO2 Sodium Potassium 5.4 H Chloride Carbon Dioxide BUN 44 H Creatinine 2.2 H Glucose 206 H POC Glucose 183 H Calcium 7.5 L AST ALT C-Reactive Protein Total Protein Albumin Ur Specific [place] Urine WBC (Auto) Urine Creatinine Urine Total Protein Lymph Enumerat CD4/CD8 % CD3 Cells Absolute CD3 Count % CD4 Cells Absolute CD4 Count % CD8 Cells Absolute CD8 Count Absolute CD19 Count HIV DNA Qual (PCR) HIV-1 RNA PCR copies/ml HIV-1 RNA (PCR) log Miscellaneous Test 06/24/18 06/24/18 06/24/18 11:14 16:40 17:16 WBC RBC Hgb Hct MCV RDW Seg Neuts % (Manual) Lymphocytes % (Manual) Seg Neutrophils # Man Abs Lymphs (Manual) Lymphocytes # (Manual) PT INR D-Dimer POC ABG pH 7.067 L POC ABG pCO2 91.7 H POC ABG pO2 134 H Sodium Potassium Chloride Carbon Dioxide BUN Creatinine Glucose POC Glucose 151 H 195 H Calcium AST ALT C-Reactive Protein Total Protein Albumin Ur Specific [place] Urine WBC (Auto) Urine Creatinine Urine Total Protein Lymph Enumerat CD4/CD8 % CD3 Cells Absolute CD3 Count % CD4 Cells Absolute CD4 Count % CD8 Cells Absolute CD8 Count Absolute CD19 Count HIV DNA Qual (PCR) HIV-1 RNA PCR copies/ml HIV-1 RNA (PCR) log Miscellaneous Test 06/24/18 06/24/18 06/24/18 18:03 22:45 22:45 WBC RBC Hgb Hct MCV RDW Seg Neuts % (Manual) Lymphocytes % (Manual) Seg Neutrophils # Man Abs Lymphs (Manual) Lymphocytes # (Manual) PT INR D-Dimer POC ABG pH 7.234 L POC ABG pCO2 59.9 H POC ABG pO2 121 H Sodium Potassium Chloride Carbon Dioxide BUN Creatinine Glucose POC Glucose Calcium AST ALT C-Reactive Protein Total Protein Albumin Ur Specific [place] Urine WBC (Auto) 9.0 H Urine Creatinine 47.2 H Urine Total Protein 25 H Lymph Enumerat CD4/CD8 % CD3 Cells Absolute CD3 Count % CD4 Cells Absolute CD4 Count % CD8 Cells Absolute CD8 Count Absolute CD19 Count HIV DNA Qual (PCR) HIV-1 RNA PCR copies/ml HIV-1 RNA (PCR) log Miscellaneous Test 06/24/18 06/24/18 06/25/18 Unknown 23:59 04:36 WBC RBC Hgb Hct MCV RDW Seg Neuts % (Manual) Lymphocytes % (Manual) Seg Neutrophils # Man Abs Lymphs (Manual) Lymphocytes # (Manual) PT 15.6 H INR 1.17 H D-Dimer POC ABG pH 7.200 L POC ABG pCO2 65.3 H POC ABG pO2 Sodium Potassium Chloride Carbon Dioxide BUN Creatinine Glucose POC Glucose 233 H Calcium AST ALT C-Reactive Protein Total Protein Albumin Ur Specific [place] Urine WBC (Auto) Urine Creatinine Urine Total Protein Lymph Enumerat CD4/CD8 % CD3 Cells Absolute CD3 Count % CD4 Cells Absolute CD4 Count % CD8 Cells Absolute CD8 Count Absolute CD19 Count HIV DNA Qual (PCR) HIV-1 RNA PCR copies/ml HIV-1 RNA (PCR) log Miscellaneous Test 06/25/18 06/25/18 06/25/18 05:29 11:12 11:40 WBC RBC 2.67 L Hgb 8.5 L Hct 25.6 L MCV 96 H RDW 16.0 H Seg Neuts % (Manual) Lymphocytes % (Manual) Seg Neutrophils # Man Abs Lymphs (Manual) Lymphocytes # (Manual) PT INR D-Dimer POC ABG pH POC ABG pCO2 POC ABG pO2 Sodium Potassium Chloride Carbon Dioxide BUN Creatinine Glucose POC Glucose 212 H 244 H Calcium AST ALT C-Reactive Protein Total Protein Albumin Ur Specific [place] Urine WBC (Auto) Urine Creatinine Urine Total Protein Lymph Enumerat CD4/CD8 % CD3 Cells Absolute CD3 Count % CD4 Cells Absolute CD4 Count % CD8 Cells Absolute CD8 Count Absolute CD19 Count HIV DNA Qual (PCR) HIV-1 RNA PCR copies/ml HIV-1 RNA (PCR) log Miscellaneous Test 06/25/18 11:40 WBC RBC Hgb Hct MCV RDW Seg Neuts % (Manual) Lymphocytes % (Manual) Seg Neutrophils # Man Abs Lymphs (Manual) Lymphocytes # (Manual) PT INR D-Dimer POC ABG pH POC ABG pCO2 POC ABG pO2 Sodium Potassium 5.8 H Chloride Carbon Dioxide BUN 48 H Creatinine 2.1 H Glucose 293 H POC Glucose Calcium 7.5 L AST ALT C-Reactive Protein Total Protein Albumin Ur Specific [place] Urine WBC (Auto) Urine Creatinine Urine Total Protein Lymph Enumerat CD4/CD8 % CD3 Cells Absolute CD3 Count % CD4 Cells Absolute CD4 Count % CD8 Cells Absolute CD8 Count Absolute CD19 Count HIV DNA Qual (PCR) HIV-1 RNA PCR copies/ml HIV-1 RNA (PCR) log Miscellaneous Test Allied health notes reviewed: nursing
[2018-06-25] MEDS ORDERED: KIONEX PO NR (16:00)
[2018-06-25] MEDS ORDERED: VANCOMYCIN 1,250 MG in NACL 0.9% 250ML 250 ML IV ONE (16:00)
--- NOTE | 2018-06-25 17:22 | Progress Note ---
Assessment and Plan This pt admitted with bilateral pneumonia and now on mechanical ventilation. Pt noted to have RLE venous thrombosis (DVT vs ICMVT), but did not tolerate anticoagulation (due to epistaxis). An IR consult requested to eval for possible IVC filter. Pt noted to have isolated right calf muscle vein thrombosis (confirmed on repeat duplex). Do not recommend IVC filter at this point. Recommend applying MAIN/Compressive hose to lower ext. Consider starting low dose Eliquis (2.5mg po bid [id number]), as tolerated by the pt. Repeat venous duplex q5-7 days while hospitalized. If thrombus propagates, then placement of IVC filter would be reasonable. - Patient Problems (1) Acute superficial venous thrombosis of lower extremity Current Visit: Yes Status: Acute (2) Acute respiratory failure Current Visit: Yes Status: Acute Qualifiers: Respiratory failure complication: unspecified whether with hypoxia or hypercapnia Qualified Code(s): J96.00 - Acute respiratory failure, unspecified whether with hypoxia or hypercapnia (3) Bilateral pneumonia Current Visit: Yes Status: Acute Qualifiers: Pneumonia type: due to unspecified organism Lung location: unspecified part of lung Qualified Code(s): J18.9 - Pneumonia, unspecified organism (4) AIDS (acquired immune deficiency syndrome) Current Visit: Yes Status: Acute Subjective Date of service: 06/25/18 Principal diagnosis: Acute Hypoxemic Resp Failure; AIDS / HIV positive; Severe Sepsis due to PNA Interval history: Pt sedate on mechanical ventilation. Objective - Constitutional Vitals: Vital Signs - 12hr 06/25/18 06/25/18 06/25/18 06:00 07:00 08:00 Temperature 97.7 F Pulse Rate 123 H 126 H 122 H Respiratory 28 H 25 H 26 H Rate Blood Pressure 145/82 141/80 142/84 O2 Sat by Pulse 94 92 92 Oximetry 06/25/18 06/25/18 06/25/18 09:01 09:36 10:00 Temperature Pulse Rate 121 H 124 H 131 H Respiratory 26 H 29 H Rate Blood Pressure 135/82 136/82 146/87 O2 Sat by Pulse 92 94 92 Oximetry 06/25/18 06/25/18 06/25/18 11:00 12:00 12:55 Temperature Pulse Rate 124 H 133 H 130 H Respiratory 31 H 30 H Rate Blood Pressure 140/81 130/78 131/71 O2 Sat by Pulse 95 92 98 Oximetry 06/25/18 06/25/18 06/25/18 13:01 13:34 13:36 Temperature Pulse Rate 131 H 129 H Respiratory 30 H Rate Blood Pressure 125/68 110/62 O2 Sat by Pulse 96 98 98 Oximetry General appearance: Present: no acute distress - EENT ENT: other (nasal packing in place) - Respiratory Respiratory effort: other (on mechanical ventilation) Extremities: No edema (no obvious size descrepancies between R and L lower ext.) - Labs CBC & Chem 7: 06/25/18 11:40 06/25/18 11:40 Labs: Abnormal lab results 06/24/18 06/24/18 06/24/18 Range/Units 17:16 18:03 22:45 RBC (3.65-5.03) M/mm3 Hgb (11.8-15.2) gm/dl Hct (35.5-45.6) % MCV (84-94) fl RDW (13.2-15.2) % POC ABG pH 7.234 L (7.35-7.45) POC ABG pCO2 59.9 H (35-45) POC ABG pO2 121 H (80-105) Potassium (3.6-5.0) mmol/L BUN (9-20) mg/dL Creatinine (0.8-1.5) mg/dL Glucose (75-100) mg/dL POC Glucose 195 H (70-105) Calcium (8.4-10.2) mg/dL Urine WBC (Auto) (0.0-6.0) /HPF Urine Creatinine 47.2 H (0.1-20.0) mg/dL Urine Total Protein 25 H (5-11.8) mg/dL 06/24/18 06/24/18 06/25/18 Range/Units 22:45 23:59 04:36 RBC (3.65-5.03) M/mm3 Hgb (11.8-15.2) gm/dl Hct (35.5-45.6) % MCV (84-94) fl RDW (13.2-15.2) % POC ABG pH 7.200 L (7.35-7.45) POC ABG pCO2 65.3 H (35-45) POC ABG pO2 (80-105) Potassium (3.6-5.0) mmol/L BUN (9-20) mg/dL Creatinine (0.8-1.5) mg/dL Glucose (75-100) mg/dL POC Glucose 233 H (70-105) Calcium (8.4-10.2) mg/dL Urine WBC (Auto) 9.0 H (0.0-6.0) /HPF Urine Creatinine (0.1-20.0) mg/dL Urine Total Protein (5-11.8) mg/dL 06/25/18 06/25/18 06/25/18 Range/Units 05:29 11:12 11:40 RBC 2.67 L (3.65-5.03) M/mm3 Hgb 8.5 L (11.8-15.2) gm/dl Hct 25.6 L (35.5-45.6) % MCV 96 H (84-94) fl RDW 16.0 H (13.2-15.2) % POC ABG pH (7.35-7.45) POC ABG pCO2 (35-45) POC ABG pO2 (80-105) Potassium (3.6-5.0) mmol/L BUN (9-20) mg/dL Creatinine (0.8-1.5) mg/dL Glucose (75-100) mg/dL POC Glucose 212 H 244 H (70-105) Calcium (8.4-10.2) mg/dL Urine WBC (Auto) (0.0-6.0) /HPF Urine Creatinine (0.1-20.0) mg/dL Urine Total Protein (5-11.8) mg/dL 06/25/18 Range/Units 11:40 RBC (3.65-5.03) M/mm3 Hgb (11.8-15.2) gm/dl Hct (35.5-45.6) % MCV (84-94) fl RDW (13.2-15.2) % POC ABG pH (7.35-7.45) POC ABG pCO2 (35-45) POC ABG pO2 (80-105) Potassium 5.8 H (3.6-5.0) mmol/L BUN 48 H (9-20) mg/dL Creatinine 2.1 H (0.8-1.5) mg/dL Glucose 293 H (75-100) mg/dL POC Glucose (70-105) Calcium 7.5 L (8.4-10.2) mg/dL Urine WBC (Auto) (0.0-6.0) /HPF Urine Creatinine (0.1-20.0) mg/dL Urine Total Protein (5-11.8) mg/dL Medications & Allergies - Medications Allergies/Adverse Reactions: Allergies No Known Allergies Allergy (Verified 06/19/18 06:10) Home Medications: Home Medications Medication Instructions Recorded Confirmed Last Taken Type ALBUTEROL Inhaler (OR & NICU) 2 puff IH QID PRN 06/19/18 06/19/18 Unknown History [Proair] Pantoprazole [Protonix] 40 mg PO QDAY 06/19/18 06/19/18 Unknown History levoFLOXacin [Levaquin TAB] 500 mg PO QDAY 06/19/18 06/19/18 Unknown History Active Medications: Generic Name Dose Route Start Last Admin Trade Name Freq PRN Reason Stop Dose Admin Acetaminophen 650 mg 06/19/18 06:30 06/25/18 00:04 Tylenol PO 650 mg Q4H PRN Administration Pain MILD(1-3)/Fever >100.5/[place] Lipase/Protease/Amylase 1 each 06/19/18 16:[address] 10,500 Unit FEEDTUBE PRN PRN For Clogged Feeding Tube Azithromycin 1,200 mg 06/25/18 11:00 06/25/18 12:05 Zithromax PO 1,200 mg Mo PEYTON Administration Famotidine 20 mg 06/25/18 10:00 06/25/18 10:32 Pepcid PO 20 mg DAILY PEYTON Administration Fentanyl 50 mcg 06/19/18 06:00 06/21/18 02:05 Sublimaze IV 50 mcg Q10MIN PRN Administration ANALGESIA Heparin Sodium (Porcine) 5,000 unit 06/25/18 22:00 Heparin SUB-Q Q12HR PEYTON Hydrophilic Ointment 1 applic 06/19/18 06:00 Vaseline Lip Therapy TP Q2HR PRN Dry Lips Fentanyl Citrate 2,000 mcg in 100 mls @ 3.86 mls/hr 06/19/18 06:00 06/25/18 10:56 Fentanyl Drip Premix IV 3 mcg/kg/hr TITR PEYTON 11.581 mls/hr Titration Protocol 1 MCG/KG/HR Midazolam HCl 100 mg/ Sodium 100 mls @ 2 mls/hr 06/19/18 06:00 06/25/18 01:54 Chloride IV 0 mg/hr TITR PEYTON 0 mls/hr Titration Protocol 2 MG/HR Norepinephrine 4 mg in 250 mls @ 7.5 mls/hr 06/19/18 15:00 06/19/18 22:00 Levophed Drip 4 Mg/Ns 250 Ml IV 0 mcg/min TITR PEYTON 0 mls/hr Titration Protocol 2 MCG/MIN Sodium Chloride 1,000 mls @ 75 mls/hr 06/22/18 21:00 06/25/18 02:46 Nacl 0.45% 1000 Ml IV 75 mls/hr DIRECT PEYTON Administration Propofol 1,000 mg in 100 mls @ 2.601 mls/hr 06/24/18 15:00 06/25/18 13:44 Diprivan 10 Mg/Ml IV 30 mcg/kg/min TITR PEYTON 15.606 mls/hr Titration Protocol 5 MCG/KG/MIN Trimethoprim/Sulfamethoxazole 275 mls @ 350 mls/hr 06/25/18 22:00 400 mg/ Dextrose IV Q12HR PEYTON Protocol Amphotericin B 400 mg/ 580 mls @ 250 mls/hr 06/25/18 10:00 06/25/18 10:34 Dextrose IV 250 mls/hr Q24HR PEYTON Administration Dextrose 500 mls @ 5 mls/hr 06/25/18 08:56 06/25/18 10:35 D5w IV 0 mls/hr PRN PRN Infusion FLUSH BEFORE AND AFTER AMPHO B Vancomycin HCl 1,250 mg/ 275 mls @ 166.667 mls/hr 06/25/18 16:00 Sodium Chloride IV 06/25/18 17:38 ONCE ONE Insulin Human Lispro 0 unit 06/20/18 13:00 06/25/18 12:50 Humalog SUB-Q 4 unit Q6HR PEYTON Administration Protocol Methylprednisolone Sodium Succinate 40 mg 06/19/18 22:00 06/25/18 10:34 Solu-Medrol IV 40 mg Q12HR PEYTON Administration Multi-Ingred Cream/Lotion/Oil/Oint 1 applic 06/19/18 06:00 Artificial Tears Ophth Oint OU Q4HR PRN Dry Eye(s) Ondansetron HCl 4 mg 06/19/18 06:30 Zofran IV Q8H PRN Nausea And Vomiting Phenylephrine HCl 2 spray 06/24/18 06:07 06/25/18 05:35 Thompson-Synephrine NS 2 spray Q4H PRN Administration Congestion Quetiapine Fumarate 200 mg 06/21/18 22:00 06/25/18 10:31 Seroquel PO 200 mg BID PEYTON Administration Simple Syrup 15 ml 06/19/18 16:02 Simple Syrup FEEDTUBE PRN PRN Hypoglycemia Simple Syrup 30 ml 06/19/18 16:02 Simple Syrup FEEDTUBE PRN PRN Hypoglycemia Sodium Bicarbonate 325 mg 06/19/18 16:02 Sodium Bicarbonate FEEDTUBE PRN PRN For Clogged Feeding Tube Sodium Chloride 10 ml 06/19/18 10:00 06/25/18 10:32 Sodium Chloride Flush Syringe 10 Ml IV 10 ml BID PEYTON Administration Sodium Chloride 10 ml 06/19/18 06:30 Sodium Chloride Flush Syringe 10 Ml IV PRN PRN LINE FLUSH Sodium Polystyrene Sulfonate 60 gm 06/25/18 16:00 Kionex PO 06/25/18 19:00 ONCE NR
[2018-06-25] MEDS ORDERED: NACL 0.9% 1000 ML 1,000 ML ONE (19:45)
[2018-06-25] MEDS: NACL 0.9% 1000 ML 1,000 ML IV SCH (19:56)
[2018-06-25] MEDS ORDERED: NACL 0.9% 500 ML 500 ML IV SCH (20:00)
[2018-06-25] MEDS: HEPARIN SUB-Q SCH (21:47)
[2018-06-25] MEDS ORDERED: BACTRIM IV SCH (22:00)
[2018-06-25] MEDS ORDERED: D5W IV SCH (22:00)
[2018-06-26] MEDS: HumaLOG SUB-Q SCH ×4 (00:31→18:26)
--- NOTE | 2018-06-26 02:44 | XRay Report ---
FINAL REPORT PROCEDURE: XR CHEST 1V AP TECHNIQUE: Chest radiograph anteroposterior view. CPT 35348 HISTORY: follow up respiratory failure COMPARISON: No prior studies are available for comparison. FINDINGS: Heart: Normal. Mediastinum/Vessels: Normal. Lungs/Pleural space: Lungs are expanded. There are no acute infiltrates. There is no pleural effusion or pneumothorax.. Bony thorax: No acute osseous abnormality. Life support devices: Endotracheal tube is the mid trachea. NG tube is in the stomach. There is a rig ht-sided central venous catheter. The tip is in the superior vena cava.. IMPRESSION: The heart size is normal.. Lungs are expanded. There are no acute infiltrates. There is no pleural effusion or pneumothorax.. Endotracheal tube is the mid trachea. NG tube is in the stomach. There is a right-sided central venou s catheter. The tip is in the superior vena cava..
[2018-06-26] MEDS: DIPRIVAN 10 MG/ML 1,000 MG/100 ML BOTTLE IV SCH ×3 (06:15→18:13)
[2018-06-26] MEDS: fentaNYL DRIP Premix 2,000 MCG/100 ML BAG IV SCH ×3 (06:57→23:14)
[2018-06-26] MEDS: NACL 0.9% 1000 ML 1,000 ML IV SCH (07:22)
--- NOTE | 2018-06-26 07:25 | Progress Note ---
Assessment and Plan - Patient Problems (1) Acute kidney failure with tubular necrosis Current Visit: Yes Status: Acute Plan to address problem: Multifactorial in setting of pre-renal injury, ATN secondary sepsis, contrast exposure, voriconazole, bactrim/antibiotic exposure. Will monitor, continue current supportive care. Need to adjust dose antimicro bials for his decreased renal clearance. Avoid nephrotoxins as much as possible in this critically ill patient with worsening renal injury. Pending renal function studies at this time. He continues on D5 half-normal saline at 75 mL an hour. May need to consider switching to normal saline considering his persistent hyperglycemia noted on laboratory studies. (2) Acute respiratory failure with hypoxia Current Visit: Yes Status: Acute Plan to address problem: Management per ICU team. (3) Bilateral pneumonia Current Visit: Yes Status: Acute Qualifiers: Pneumonia type: due to unspecified organism Lung location: unspecified part of lung Qualified Code(s): J18.9 - Pneumonia, unspecified organism Plan to address problem: Antibiotics per ID recommendations. (4) AIDS (acquired immune deficiency syndrome) Current Visit: Yes Status: Acute Plan to address problem: Management per ID. (5) Anemia Current Visit: Yes Status: Acute Plan to address problem: Assess folate and B12 levels, monitor closely. Transfuse to maintain Hgb >7.0. Subjective Date of service: 06/26/18 Principal diagnosis: Acute Hypoxemic Resp Failure; AIDS / HIV positive; Severe Sepsis due to PNA Interval history: No acute changes overnight. Did get a dose of Kayexalate 60 g. Did have large bowel movement. Pending repeat labs this morning. Patient remains on D5 half- normal saline at 75 mL an hour. Labs noted from yesterday. Accu-Cheks noted with hyperglycemia. Remains on propofol and fentanyl at this time. He remains intubated. Remains nonoliguric at this time producing more than 2 liter over the last 24 hours. Objective - Vital Signs Vital signs: Vital Signs - 12hr 06/25/18 06/25/18 06/25/18 19:54 20:00 21:00 Temperature 99 F Pulse Rate 136 H 136 H Pulse Rate [ From Monitor] Respiratory 28 H 31 H Rate Blood Pressure 131/72 146/88 O2 Sat by Pulse 92 90 Oximetry 06/25/18 06/25/18 06/25/18 21:08 22:00 23:00 Temperature Pulse Rate 138 H 137 H 140 H Pulse Rate [ From Monitor] Respiratory 29 H 28 H Rate Blood Pressure 146/88 130/77 118/61 O2 Sat by Pulse 92 92 93 Oximetry 06/25/18 06/25/18 06/26/18 23:34 23:35 00:00 Temperature 99.1 F Pulse Rate 138 H 137 H Pulse Rate [ 139 H From Monitor] Respiratory 30 H 30 H Rate Blood Pressure 120/64 121/69 O2 Sat by Pulse 94 94 Oximetry 06/26/18 06/26/18 06/26/18 01:00 01:08 02:00 Temperature Pulse Rate 134 H 136 H 138 H Pulse Rate [ From Monitor] Respiratory 29 H 30 H Rate Blood Pressure 123/71 121/69 129/75 O2 Sat by Pulse 92 93 93 Oximetry 06/26/18 06/26/18 06/26/18 03:00 03:09 04:00 Temperature 101 F H Pulse Rate 137 H 137 H Pulse Rate [ 130 H From Monitor] Respiratory 26 H 28 H Rate Blood Pressure 125/72 127/70 O2 Sat by Pulse 93 93 Oximetry 06/26/18 06/26/18 06/26/18 05:00 05:40 06:01 Temperature Pulse Rate 138 H 139 H 117 H Pulse Rate [ From Monitor] Respiratory 27 H Rate Blood Pressure 131/74 132/74 124/82 O2 Sat by Pulse 93 95 96 Oximetry 06/26/18 06/26/18 07:01 07:08 Temperature Pulse Rate 131 H 129 H Pulse Rate [ From Monitor] Respiratory Rate Blood Pressure 136/82 136/82 O2 Sat by Pulse 95 98 Oximetry - General Appearance General appearance: sedated on ventilator, intubated, frail EENT: ATNC, PERRL Neck: no JVD, no thyromegaly Respiratory: Present: Ronchi Cardiology: regular, tachycardia Gastrointestinal: normal Integumentary: no rash, warm and dry Neurologic: other (remains sedated and intubated at this time.) Musculoskeletal: other (negative edema) - Lab 06/25/18 11:40 06/25/18 11:40 Most recent lab results Calcium 7.5 mg/dL (8.4-10.2) L 06/25/18 11:40 Urine Creatinine 47.2 mg/dL (0.1-20.0) H 06/24/18 22:45 Urine Sodium 40 mmol/L 06/24/18 22:45 Urine Total Protein 25 mg/dL (5-11.8) H 06/24/18 22:45 - Imaging Chest x-ray: report reviewed - Allied health notes Allied health notes reviewed: nursing Medications & Allergies - Medications Allergies/Adverse Reactions: Allergies No Known Allergies Allergy (Verified 06/19/18 06:10) Home Medications: Home Medications Medication Instructions Recorded Confirmed Last Taken Type ALBUTEROL Inhaler (OR & NICU) 2 puff IH QID PRN 06/19/18 06/19/18 Unknown History [Proair] Pantoprazole [Protonix] 40 mg PO QDAY 06/19/18 06/19/18 Unknown History levoFLOXacin [Levaquin TAB] 500 mg PO QDAY 06/19/18 06/19/18 Unknown History Active Medications: Generic Name Dose Route Start Last Admin Trade Name Freq PRN Reason Stop Dose Admin Acetaminophen 650 mg 06/19/18 06:30 06/25/18 00:04 Tylenol PO 650 mg Q4H PRN Administration Pain MILD(1-3)/Fever >100.5/[place] Lipase/Protease/Amylase 1 each 06/19/18 16:[address] 10,500 Unit FEEDTUBE PRN PRN For Clogged Feeding Tube Azithromycin 1,200 mg 06/25/18 11:00 06/25/18 12:05 Zithromax PO 1,200 mg Mo PEYTON Administration Famotidine 20 mg 06/25/18 10:00 06/25/18 10:32 Pepcid PO 20 mg DAILY PEYTON Administration Fentanyl 50 mcg 06/19/18 06:00 06/21/18 02:05 Sublimaze IV 50 mcg Q10MIN PRN Administration ANALGESIA Heparin Sodium (Porcine) 5,000 unit 06/25/18 22:00 06/25/18 21:47 Heparin SUB-Q 5,000 unit Q12HR PEYTON Administration Hydrophilic Ointment 1 applic 06/19/18 06:00 Vaseline Lip Therapy TP Q2HR PRN Dry Lips Fentanyl Citrate 2,000 mcg in 100 mls @ 3.86 mls/hr 06/19/18 06:00 06/26/18 06:57 Fentanyl Drip Premix IV 3 mcg/kg/hr TITR PEYTON 11.581 mls/hr Administration Protocol 1 MCG/KG/HR Midazolam HCl 100 mg/ Sodium 100 mls @ 2 mls/hr 06/19/18 06:00 06/25/18 01:54 Chloride IV 0 mg/hr TITR PEYTON 0 mls/hr Titration Protocol 2 MG/HR Norepinephrine 4 mg in 250 mls @ 7.5 mls/hr 06/19/18 15:00 06/19/18 22:00 Levophed Drip 4 Mg/Ns 250 Ml IV 0 mcg/min TITR PEYTON 0 mls/hr Titration Protocol 2 MCG/MIN Sodium Chloride 1,000 mls @ 75 mls/hr 06/22/18 21:00 06/25/18 17:55 Nacl 0.45% 1000 Ml IV 75 mls/hr DIRECT PEYTON Administration Propofol 1,000 mg in 100 mls @ 2.601 mls/hr 06/24/18 15:00 06/26/18 06:15 Diprivan 10 Mg/Ml IV 30 mcg/kg/min TITR PEYTON 15.606 mls/hr Administration Protocol 5 MCG/KG/MIN Trimethoprim/Sulfamethoxazole 275 mls @ 350 mls/hr 06/25/18 22:00 06/26/18 00:30 400 mg/ Dextrose IV 350 mls/hr Q12HR PEYTON Administration Protocol Amphotericin B 400 mg/ 580 mls @ 250 mls/hr 06/25/18 10:00 06/25/18 10:34 Dextrose IV 250 mls/hr Q24HR PEYTON Administration Dextrose 500 mls @ 5 mls/hr 06/25/18 08:56 06/25/18 10:35 D5w IV 0 mls/hr PRN PRN Infusion FLUSH BEFORE AND AFTER AMPHO B Sodium Chloride 1,000 mls @ 5 mls/hr 06/25/18 20:00 06/25/18 19:56 Nacl 0.9% 1000 Ml IV 5 mls/hr DIRECT PEYTON Administration Insulin Human Lispro 0 unit 06/20/18 13:00 06/26/18 05:11 Humalog SUB-Q 6 unit Q6HR PEYTON Administration Protocol Methylprednisolone Sodium Succinate 40 mg 06/19/18 22:00 06/25/18 21:46 Solu-Medrol IV 40 mg Q12HR PETYON Administration Multi-Ingred Cream/Lotion/Oil/Oint 1 applic 06/19/18 06:00 Artificial Tears Ophth Oint OU Q4HR PRN Dry Eye(s) Ondansetron HCl 4 mg 06/19/18 06:30 Zofran IV Q8H PRN Nausea And Vomiting Phenylephrine HCl 2 spray 06/24/18 06:07 06/25/18 05:35 Thompson-Synephrine NS 2 spray Q4H PRN Administration Congestion Quetiapine Fumarate 200 mg 06/21/18 22:00 06/25/18 21:47 Seroquel PO 200 mg BID PEYTON Administration Simple Syrup 15 ml 06/19/18 16:02 Simple Syrup FEEDTUBE PRN PRN Hypoglycemia Simple Syrup 30 ml 06/19/18 16:02 Simple Syrup FEEDTUBE PRN PRN Hypoglycemia Sodium Bicarbonate 325 mg 06/19/18 16:02 Sodium Bicarbonate FEEDTUBE PRN PRN For Clogged Feeding Tube Sodium Chloride 10 ml 06/19/18 10:00 06/25/18 21:46 Sodium Chloride Flush Syringe 10 Ml IV 10 ml BID PEYTON Administration Sodium Chloride 10 ml 06/19/18 06:30 Sodium Chloride Flush Syringe 10 Ml IV PRN PRN LINE FLUSH
[2018-06-26 07:40] LABS: Hematocrit 25.5 % (35.5-45.6); Hemoglobin 8.2 gm/dl (11.8-15.2); Mean Corpuscular HGB Conc 32 % (32-34); Mean Corpuscular Volume 95 fl (84-94); Platelet Count 204 K/mm3 (140-440); Red Blood Count 2.69 M/mm3 (3.65-5.03); Red Cell Distribution Width 15.7 % (13.2-15.2)
[2018-06-26 08:05] LABS: Calcium 7.9 mg/dL (8.4-10.2)
--- NOTE | 2018-06-26 08:34 | Progress Note ---
Assessment and Plan Cultures: 06/19/2018 blood culture: no growth 06/19/2018 tracheal aspirate: usual resp david/ Rothia mucilaginosa 06/19/2018 fungal blood culture: no growth 06/20/2018 Serum CrAg: negative Cytology PJP stain negative GMS stain showed septated fungal hyphae with acute angle branching and yeast forms c/w Aspergillus, Fusarium, Scedosporium and other Dematiaceous fungi. DFA showed rare PJP A/P: 32/M with: #1 Bilateral pneumonia: Extensive bilateral ground glass opacities and pneumonia with severe hypoxia. Unclear etiology ? PJP versus invasive fungal. 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 Lung cytology GMS stain showed septated fungal hyphae with acute angle branching and yeast forms c/w Aspergillus, Fusarium, Scedosporium and other Dematiaceous fungi. 06/19/2018 tracheal aspirate showed usual resp david/ Rothia mucilaginosa. 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 patient has been on bactrim IV for 5 days and IV voriconazole for 4 days witouht any improvement on vent setting still at FiO2 70% p12. - S/P bronch/BAL - pending - s/p voriconazole x 4 days - no improvement, stopped on 06/25 #2 Acute respiratory failure: Requiring mechanical ventilation. slightly better still FIo2 70% -->60% p 15 #3 HIV, likely AIDS:CD4=10 / VL 1,300,000 copies #4 Sepsis: Likely secondary to above. #5 JENNIFER: better today, all renally adjusted #6 Sepsis: still tachycardia, leukocytosis and new fever; likely from above Recs: Appreciate Dr Nichole doing BAL/bronch f/u serum BAL-Galactomannan antigen and Lcia-[id number] assay, histoplasma urine ag and cocci serology continue renally adjusted liposomal Amphothericin D2 started in light of worsening oxygenation continue bactrim renally adjusted D6 continue vancomycin renally dosed to cover Rothia D3 continue azithromycin 1200 mg qweek for MAC prophylaxis Continue IV steroids F/u CMV PCR f/u F/u genotype, CMV Overall prognosis poor Will follow Keke Manzo MD Infectious Diseases [employer] [facility] M [phone] O [phone] Subjective Date of service: 06/26/18 Principal diagnosis: Acute Hypoxemic Resp Failure; AIDS / HIV positive; Severe Sepsis due to PNA Interval history: Patient remains intubated on CMV FiO2 60%, p 15, sedated on 1 sedative. Tmax 101. Underwent bronch/BAL yesterday, started on amphothericin IV yesterday. ROS unable to obtain Objective - Exam Narrative Exam: General appearance: sedated on the vent FIO2 60% p15 Eyes: anicteric sclerae, moist conjunctivae; no lid-lag; PERRLA +conjunctivae edema shruthi HENT: Atraumatic; oropharynx +ETT. Neck: Trachea midline; supple, no thyromegaly or lymphadenopathy Lungs: shruthi rhonchi CV: tachycardic Abdomen: Soft, non-tender; no masses or hepatosplenomegaly Extremities: +shruthi arm edema Skin: Normal temperature, turgor and texture; no rash, ulcers or subcutaneous nodules Psych: sedated. Neuro: sedated Rust Right IJ TLC - Constitutional Vitals: Vital Signs Temp Pulse Resp BP Pulse Ox 101 F H 129 H 27 H 136/82 98 06/26/18 03:09 06/26/18 07:08 06/26/18 05:00 06/26/18 07:08 06/26/18 07:08 Temperature -Last 24 Hours Temperature 101 F Temperature 99.1 F Temperature 99 F Temperature 99.0 F Temperature 98.9 F - Labs CBC & Chem 7: 06/26/18 07:25 06/26/18 07:25 Labs: Abnormal lab results 06/25/18 06/25/18 06/25/18 Range/Units 11:12 11:40 11:40 WBC (4.5-11.0) K/mm3 RBC 2.67 L (3.65-5.03) M/mm3 Hgb 8.5 L (11.8-15.2) gm/dl Hct 25.6 L (35.5-45.6) % MCV 96 H (84-94) fl RDW 16.0 H (13.2-15.2) % POC ABG pH (7.35-7.45) POC ABG pCO2 (35-45) POC ABG pO2 (80-105) Potassium 5.8 H (3.6-5.0) mmol/L BUN 48 H (9-20) mg/dL Creatinine 2.1 H (0.8-1.5) mg/dL Glucose 293 H (75-100) mg/dL POC Glucose 244 H (70-105) Calcium 7.5 L (8.4-10.2) mg/dL 06/25/18 06/25/18 06/25/18 Range/Units 17:18 18:08 21:20 WBC (4.5-11.0) K/mm3 RBC (3.65-5.03) M/mm3 Hgb (11.8-15.2) gm/dl Hct (35.5-45.6) % MCV (84-94) fl RDW (13.2-15.2) % POC ABG pH 7.206 L 7.220 L (7.35-7.45) POC ABG pCO2 68.1 H 65.0 H (35-45) POC ABG pO2 71 L (80-105) Potassium (3.6-5.0) mmol/L BUN (9-20) mg/dL Creatinine (0.8-1.5) mg/dL Glucose (75-100) mg/dL POC Glucose 264 H (70-105) Calcium (8.4-10.2) mg/dL 06/25/18 06/26/18 06/26/18 Range/Units 23:59 05:10 05:29 WBC (4.5-11.0) K/mm3 RBC (3.65-5.03) M/mm3 Hgb (11.8-15.2) gm/dl Hct (35.5-45.6) % MCV (84-94) fl RDW (13.2-15.2) % POC ABG pH 7.240 L (7.35-7.45) POC ABG pCO2 67.6 H (35-45) POC ABG pO2 106 H (80-105) Potassium (3.6-5.0) mmol/L BUN (9-20) mg/dL Creatinine (0.8-1.5) mg/dL Glucose (75-100) mg/dL POC Glucose 231 H 259 H (70-105) Calcium (8.4-10.2) mg/dL 02/26/19 02/26/19 Range/Units 07:25 07:25 WBC 12.0 H (4.5-11.0) K/mm3 RBC 2.69 L (3.65-5.03) M/mm3 Hgb 8.2 L (11.8-15.2) gm/dl Hct 25.5 L (35.5-45.6) % MCV 95 H (84-94) fl RDW 15.7 H (13.2-15.2) % POC ABG pH (7.35-7.45) POC ABG pCO2 (35-45) POC ABG pO2 (80-105) Potassium 5.2 H (3.6-5.0) mmol/L BUN 58 H (9-20) mg/dL Creatinine 1.9 H (0.8-1.5) mg/dL Glucose 219 H (75-100) mg/dL POC Glucose (70-105) Calcium 7.9 L (8.4-10.2) mg/dL
[2018-06-26] MEDS: HEPARIN SUB-Q SCH (09:08)
[2018-06-26] MEDS: SOLU-Medrol IV SCH ×2 (09:09→22:01)
[2018-06-26] MEDS: PEPCID PO SCH ×2 (09:09→22:01)
[2018-06-26] MEDS: SODIUM CHLORIDE FLUSH SYRINGE 10 ML IV SCH ×2 (09:12→22:02)
--- NOTE | 2018-06-26 09:36 | Progress Note ---
Assessment and Plan Assessment and plan: Patient is 32-year-old man with hypertension comes emergency room with complaints of shortness of breath, cough for 3days. He was found to have extensive bilateral pneumonia, placed on BiPAP but he failed. The patient had to be intubated. 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 DFA showed rare PJP * Patient has been treated for bilateral pneumonia secondary to above-mentioned organisms * He also developed acute kidney injury likely secondary to Multifactorial etiology in setting of pre-renal injury, ATN secondary sepsis, contrast exposure, voriconazole, bactrim/antibiotic exposure. * Echocardiogram obtained that shows an EF of 55-60% with moderate pulmonary hypertension ARDS Acute respiratory failure with hypoxia requiring full mechanical ventilatory support Sepsis secondary to bilateral pneumonia Excessive bilateral pneumonia HIV/AIDS Hyponatremia Epixtasis JENNIFER secondary to Multifactorial in setting of pre-renal injury, ATN secondary sepsis, contrast exposure, voriconazole, bactrim/antibiotic exposure. Severe metabolic acidosis shock liver-Improving Pulmonary hypertension Hyperkalemia Plan of care Continue full ventilatory support as directed by production superintendent Fire Hydrant Operator and infectious disease input noted antibiotics and antifungal agents being adjusted for renal dose Continue antibiotics/ antifungal as recommended by ID fungal culture ongoing. Since patient is from [place] ECHO ordered and pending CT chest when stable VAP precautions agree with continuation of Tamiflu till flu PCR is also noted. Awaiting family to assist with patient's medical history and any home medications DVT and GI prophylaxis Hyperkalemia improving Case discussed with nursing staff. No family present Poor prognosis The high probability of a clinically significant, sudden or life threatening deterioration of the [Pulmonary] system(s) required my full and direct attention, intervention and personal management. The aggregate critical care time was [32] minutes. This time is in addition to time spent performing reported procedures but includes the following: [x] Data Review and interpretation [x] Patient assessment and monitoring of vital signs [x] Documentation [x] Medication orders and management History Interval history: Patient remains intubated Hospitalist Physical - Physical exam Narrative exam: GEN: Intubated, HEENT: Normocephalic, atraumatic, Neck: supple, No JVD Lungs: Bilateral crackles, no wheeze Heart:S1 and S2 regular, no murmurs, rubs or gallop, Abd:soft, non tender, non distended, normal bowel sounds Ext: No edema, no clubbing or cyanosis Neuro: Intubated, sedated - Constitutional Vitals: Temp Pulse Resp BP Pulse Ox 101 F H 129 H 27 H 136/82 98 06/26/18 03:09 06/26/18 07:08 06/26/18 05:00 06/26/18 07:08 06/26/18 07:08 General appearance: Present: no acute distress Results - Labs CBC & Chem 7: 06/26/18 07:25 06/26/18 07:25 Labs: Laboratory Last Values WBC 12.0 K/mm3 (4.5-11.0) H 06/26/18 07:25 RBC 2.69 M/mm3 (3.65-5.03) L 06/26/18 07:25 Hgb 8.2 gm/dl (11.8-15.2) L 06/26/18 07:25 Hct 25.5 % (35.5-45.6) L 06/26/18 07:25 MCV 95 fl (84-94) H 06/26/18 07:25 MCH 31 pg (28-32) 06/26/18 07:25 MCHC 32 % (32-34) 06/26/18 07:25 RDW 15.7 % (13.2-15.2) H 06/26/18 07:25 Plt Count 204 K/mm3 (140-440) 06/26/18 07:25 Add Manual Diff Complete 06/20/18 08:13 Total Counted 100 06/20/18 08:13 Seg Neutrophils % Lining Stitcher 06/20/18 08:13 Seg Neuts % (Manual) 99.0 % (40.0-70.0) H 06/20/18 08:13 Band Neutrophils % 0 % 06/20/18 08:13 Lymphocytes % (Manual) 1.0 % (13.4-35.0) L 06/20/18 08:13 Reactive Lymphs % (Man) 0 % 06/20/18 08:13 Monocytes % (Manual) 0 % (0.0-7.3) 06/20/18 08:13 Eosinophils % (Manual) 0 % (0.0-4.3) 06/20/18 08:13 Basophils % (Manual) 0 % (0.0-1.8) 06/20/18 08:13 Metamyelocytes % 0 % 06/20/18 08:13 Myelocytes % 0 % 06/20/18 08:13 Promyelocytes % 0 % 06/20/18 08:13 Blast Cells % 0 % 06/20/18 08:13 Nucleated RBC % Not Reportable 06/20/18 08:13 Seg Neutrophils # Man 11.7 K/mm3 (1.8-7.7) H 06/20/18 08:13 Band Neutrophils # 0.0 K/mm3 06/20/18 08:13 Abs Lymphs (Manual) 409 cells/uL (850-3900) L 06/19/18 07:11 Lymphocytes # (Manual) 0.1 K/mm3 (1.2-5.4) L 06/20/18 08:13 Abs React Lymphs (Man) 0.0 K/mm3 06/20/18 08:13 Monocytes # (Manual) 0.0 K/mm3 (0.0-0.8) 06/20/18 08:13 Eosinophils # (Manual) 0.0 K/mm3 (0.0-0.4) 06/20/18 08:13 Basophils # (Manual) 0.0 K/mm3 (0.0-0.1) 06/20/18 08:13 Metamyelocytes # 0.0 K/mm3 06/20/18 08:13 Myelocytes # 0.0 K/mm3 06/20/18 08:13 Promyelocytes # 0.0 K/mm3 06/20/18 08:13 Blast Cells # 0.0 K/mm3 06/20/18 08:13 WBC Morphology Not Reportable 06/20/18 08:13 Hypersegmented Neuts Not Reportable 06/20/18 08:13 Hyposegmented Neuts Not Reportable 06/20/18 08:13 Hypogranular Neuts Not Reportable 06/20/18 08:13 Smudge Cells Not Reportable 06/20/18 08:13 Toxic Granulation Not Reportable 06/20/18 08:13 Toxic Vacuolation Not Reportable 06/20/18 08:13 Dohle Bodies Not Reportable 06/20/18 08:13 Pelger-Huet Anomaly Not Reportable 06/20/18 08:13 Loretta Rods Not Reportable 06/20/18 08:13 Platelet Estimate Consistent w auto 06/20/18 08:13 Clumped Platelets Not Reportable 06/20/18 08:13 Plt Clumps, EDTA Not Reportable 06/20/18 08:13 Large Platelets Not Reportable 06/20/18 08:13 Giant Platelets Not Reportable 06/20/18 08:13 Platelet Satelliting Not Reportable 06/20/18 08:13 Plt Morphology Comment Not Reportable 06/20/18 08:13 RBC Morphology Not Reportable 06/20/18 08:13 Dimorphic RBCs Not Reportable 06/20/18 08:13 Polychromasia Not Reportable 06/20/18 08:13 Hypochromasia Not Reportable 06/20/18 08:13 Poikilocytosis 1+ 06/20/18 08:13 Anisocytosis 1+ 06/20/18 08:13 Microcytosis Not Reportable 06/20/18 08:13 Macrocytosis Not Reportable 06/20/18 08:13 Spherocytes Not Reportable 06/20/18 08:13 Pappenheimer Bodies Not Reportable 06/20/18 08:13 Sickle Cells Not Reportable 06/20/18 08:13 Target Cells Not Reportable 06/20/18 08:13 Tear Drop Cells Not Reportable 06/20/18 08:13 Ovalocytes 1+ 06/20/18 08:13 Helmet Cells Not Reportable 06/20/18 08:13 Flores-F[place] Bodies Not Reportable 06/20/18 08:13 Gueydan Rings Not Reportable 06/20/18 08:13 Lucy Cells Not Reportable 06/20/18 08:13 Bite Cells Not Reportable 06/20/18 08:13 Crenated Cell Not Reportable 06/20/18 08:13 Elliptocytes Not Reportable 06/20/18 08:13 Acanthocytes (Spur) Not Reportable 06/20/18 08:13 Rouleaux Not Reportable 06/20/18 08:13 Hemoglobin C Crystals Not Reportable 06/20/18 08:13 Schistocytes Not Reportable 06/20/18 08:13 Malaria parasites Not Reportable 06/20/18 08:13 Jesus Bodies Not Reportable 06/20/18 08:13 Hem Pathologist Commnt No 06/20/18 08:13 PT 15.6 Sec. (12.2-14.9) H 06/24/18 Unknown INR 1.17 (0.87-1.13) H 06/24/18 Unknown APTT 28.7 Sec. (24.2-36.6) 06/19/18 Unknown Fibrinogen 405 mg/dl (211-480) 06/24/18 Unknown D-Dimer 8449.09 ng/mlDDU (0-234) H 06/19/18 Unknown POC ABG pH 7.240 (7.35-7.45) L 06/26/18 05:29 POC ABG pCO2 67.6 (35-45) H 06/26/18 05:29 POC ABG pO2 106 (80-105) H 06/26/18 05:29 POC ABG HCO3 28.9 06/26/18 05:29 POC ABG Total CO2 31 06/26/18 05:29 POC ABG O2 Sat 97 06/26/18 05:29 POC ABG Base Excess 2 06/26/18 05:29 FiO2 60 % 06/26/18 05:29 Sodium 142 mmol/L (137-145) 06/26/18 07:25 Potassium 5.2 mmol/L (3.6-5.0) H 06/26/18 07:25 Chloride 102.7 mmol/L (98-107) 06/26/18 07:25 Carbon Dioxide 28 mmol/L (22-30) 06/26/18 07:25 Anion Gap 17 mmol/L 06/26/18 07:25 BUN 58 mg/dL (9-20) H 06/26/18 07:25 Creatinine 1.9 mg/dL (0.8-1.5) H 06/26/18 07:25 Estimated GFR 41 ml/min 06/26/18 07:25 BUN/Creatinine Ratio 31 % 06/26/18 07:25 Glucose 219 mg/dL (75-100) H 06/26/18 07:25 POC Glucose 259 (70-105) H 06/26/18 05:10 Lactic Acid 1.70 mmol/L (0.7-2.0) 06/19/18 05:26 Calcium 7.9 mg/dL (8.4-10.2) L 06/26/18 07:25 Total Bilirubin < 0.20 mg/dL (0.1-1.2) 06/23/18 05:11 Direct Bilirubin < 0.2 mg/dL (0-0.2) 06/19/18 Unknown Indirect Bilirubin 0.2 mg/dL 06/19/18 Unknown AST 63 units/L (5-40) H 06/23/18 05:11 ALT 297 units/L (7-56) H 06/23/18 05:11 Alkaline Phosphatase 127 units/L (35-129) 06/23/18 05:11 Troponin T < 0.010 ng/mL (0.00-0.029) 06/19/18 Unknown C-Reactive Protein 1.60 mg/dL (0.00-1.30) H 06/23/18 18:40 NT-Pro-B Natriuret Pep 226.4 pg/mL (0-450) 06/19/18 Unknown Total Protein 5.3 g/dL (6.3-8.2) L 06/23/18 05:11 Albumin 2.4 g/dL (3.9-5) L 06/23/18 05:11 Albumin/Globulin Ratio 0.8 % 06/23/18 05:11 Urine Color Yellow (Yellow) 06/24/18 22:45 Urine Turbidity Slightly-cloudy (Clear) 06/24/18 22:45 Urine pH 5.0 (5.0-7.0) 06/24/18 22:45 Ur Specific [place] 1.014 (1.003-1.030) 06/24/18 22:45 Urine Protein <15 mg/dl mg/dL (Negative) 06/24/18 22:45 Urine Glucose (UA) Neg mg/dL (Negative) 06/24/18 22:45 Urine Ketones Neg mg/dL (Negative) 06/24/18 22:45 Urine Blood Neg (Negative) 06/24/18 22:45 Urine Nitrite Neg (Negative) 06/24/18 22:45 Urine Bilirubin Neg (Negative) 06/24/18 22:45 Urine Urobilinogen < 2.0 mg/dL (<2.0) 06/24/18 22:45 Ur Leukocyte Esterase Neg (Negative) 06/24/18 22:45 Urine WBC (Auto) 9.0 /HPF (0.0-6.0) H 06/24/18 22:45 Urine RBC (Auto) 19.0 /HPF (0.0-6.0) 06/24/18 22:45 U Epithel Cells (Auto) < 1.0 /HPF (0-13.0) 06/19/18 08:07 Urine Bacteria (Auto) 1+ /HPF (Negative) 06/24/18 22:45 Hyaline Casts 1 /LPF 06/24/18 22:45 Urine Mucus Few /HPF 06/19/18 08:07 Urine Yeast (Budding) 1+ /HPF 06/24/18 22:45 Urine Eosinophils None seen (None Seen) 06/24/18 22:45 Urine Creatinine 47.2 mg/dL (0.1-20.0) H 06/24/18 22:45 Urine Sodium 40 mmol/L 06/24/18 22:45 Urine Total Protein 25 mg/dL (5-11.8) H 06/24/18 22:45 Random Vancomycin 6.5 ug/mL (0-40.0) 06/25/18 11:40 Urine Opiates Screen Presumptive negative 06/19/18 08:06 Urine Methadone Screen Presumptive negative 06/19/18 08:06 Ur Barbiturates Screen Presumptive negative 06/19/18 08:06 Ur Phencyclidine Scrn Presumptive negative 06/19/18 08:06 Ur Amphetamines Screen Presumptive negative 06/19/18 08:06 U Benzodiazepines Scrn Presumptive positive 06/19/18 08:06 Urine Cocaine Screen Presumptive negative 06/19/18 08:06 U Marijuana (THC) Screen Presumptive negative 06/19/18 08:06 Drugs of Abuse Note Disclamer 06/19/18 08:06 Lymph Enumerat CD4/CD8 0.05 (0.86-5.00) L 06/19/18 07:11 % CD3 Cells 45 % (57-85) L 06/19/18 07:11 Absolute CD3 Count 185 cells/uL (840-3060) L 06/19/18 07:11 % CD4 Cells 2 % (30-61) L 06/19/18 07:11 Absolute CD4 Count 10 cells/uL (490-1740) L 06/19/18 07:11 % CD8 Cells 43 % (12-42) H 06/19/18 07:11 Absolute CD8 Count 167 cells/uL (180-1170) L 06/19/18 07:11 % CD19 Cells 18 % (6-29) 06/19/18 07:11 Absolute CD19 Count 79 cells/uL (110-660) L 06/19/18 07:11 Hepatitis A IgM Ab Non-reactive (NonReactive) 06/21/18 04:19 Hep Bs Antigen Non-reactive (Negative) 06/21/18 04:19 Hep B Core IgM Ab Non-reactive (NonReactive) 06/21/18 04:19 Hepatitis C Antibody Non-reactive (NonReactive) 06/21/18 04:19 HIV DNA Qual (PCR) Detected (Not Detected) H 06/19/18 09:20 HIV-1 Antibody See scanned results 06/19/18 07:12 HIV-1 RNA PCR copies/ml [id number] Copies/mL H 06/19/18 15:16 HIV-1 RNA (PCR) log 6.11 Log cps/mL H 06/19/18 15:16 HIV-2 Ab (Immunoblot) See scanned results 06/19/18 07:12 HIV 1&2 Antibody Rapid Reactive (Non React) 06/19/18 07:10 HIV P24 Antigen Invalid (Non React) 06/19/18 07:10 Influenza A (Rapid) Negative (Negative) 06/19/18 Unknown Influenza A (RT-PCR) Negative (Negative) 06/21/18 12:30 Influenza B (Rapid) Negative (Negative) 06/19/18 Unknown Influenza B (RT-PCR) Negative (Negative) 06/21/18 12:30 Miscellaneous Test see below H 06/21/18 12:32 Nutrition/Malnutrition Assess - Dietary Evaluation Nutrition/Malnutrition Findings: Nutrition Notes Start: 06/19/18 14:17 Freq: Status: Active Protocol: Document 06/21/18 12:47 CT (Rec: 06/21/18 14:14 CT [id number]) Co-Sign 06/21/18 12:47 LP Nutrition Notes Initial or Follow up Reassessment Current Diagnosis Hypertension Other Pertinent Diagnosis SOB, bilateral pneumonia, HIV Current Diet TF- Osmolite 1.5 @60mls/hr Labs/Tests Na: 135 Cr: 0.7 B Pertinent Medications Reviewed. Height 5 ft 9 in Weight 78.4 kg [place] Body Weight (kg) 72.72 BMI 25.5 Weight Status Overweight Subjective/Other Information Observed TF infusing at 50mls/ hr. Spoke with RN who reported pt is tolerating TF well and ina soon be advanced to goal. Percent of needs met calculated based on 50ml/hr Percent of energy/protein needs met: 83%81/% Burn Absent Trauma Absent #1 Nutrition Diagnosis Inadequate oral intake Diagnosis Progress(for reassessment Continues documentation) Is patient on ventilator? Yes Is Patient Ambulatory and/or Out of Bed No REE-([facility]-confined to bed) 2070.380 Calculation Used for Recommendations [facility] Additional Notes PRO: 93 - 154g PRO (1.2 - 2g KG ABW) fluid: 1 ml/kcal Nutrition Intervention Change Diet Order: Continue TF Nutrition Support: Osmolite 1.5 at 60mL/hr with 175mL flush q4h Kcal 2,169 Protein (gm) 90 Carbohydrates (gm) 293 Fat (gm) 70 Fluid (mL) 1,097 Fiber (gm) 0 Goal #1 TF at goal Goal #2 TF to meet 80-100% of kcal and protein needs. Anticipated Discharge Needs: Unable to determine at this time Follow-Up By: 06/26/18 Additional Comments F/U: TF at goal rate
[2018-06-26] MEDS: D5W IV SCH ×3 (10:29→23:33)
[2018-06-26] MEDS: ABELCET IV SCH (10:29)
[2018-06-26] MEDS: LANTUS SUB-Q SCH (12:47)
--- NOTE | 2018-06-26 13:13 | Progress Note ---
Assessment and Plan ARDS Acute Hypoxemic Respiratory Failure on MVS AIDS / HIV positive Severe Sepsis due to Pneumonia Hyponatremia Severe metabolic acidosis Shock liver - continue to target TV 4-6 ml/kg IBW - continue current vent settings (rate 30/min; TV 400mls with Peep at 15 now) - wean supplemental oxygen to keep O2 sats > 89% - continue permissive hypercapnia strategies - continue propofol to improve sedation and reduce patient ventilator dys- synchrony on high Peep settings - BAL cytology pending - continue anti-infectives per ID recs - 2D ECHO with normal EF - continue seroquel at 300mg bid to aid weaning off IV sedatives - continue to titrate sedatives for RASS -2 will on ARDS ventilation - continue anti-infective's per ID recommendations - completed empiric TamiFlu - trend CRP and lactate levels as necessary to aid clinical decision making - continue bronchodilators with pulmonary hygiene per RT - continue hyperventilation acutely to compensate for metabolic acidosis - VAP bundle addressed - daily SAT's - Daily SBT assessment - GI & VTE prophylaxis - enteral nutrition as tolerated - continue accuchecks q6h with glycemic control per SSI for target BG 140-180 mg/dL - continue other care per attending / other project management consultant's .... re-evaluate in am & prn CODE STATUS: FULL CODE The high probability of a clinically significant, sudden or life-threatening deterioration of the [cardiac, neurology] system(s) required my full and direct attention, intervention and personal management. The aggregate critical care time was [32] minutes without overlap. Time includes spent on; [x] Data Review and interpretation [x] Patient assessment and monitoring of vital signs [x] Documentation [x] Medication orders and management Subjective Date of service: 06/26/18 Principal diagnosis: Acute Hypoxemic Resp Failure; AIDS / HIV positive; Severe Sepsis due to PNA Interval history: Patient is seen today for: Acute Hypoxemic Respiratory Failure on MVS; AIDS / HIV positive; Severe Sepsis due to Pneumonia; Hyponatremia; Severe metabolic acidosis Seen and examined at bedside; 24hour events reviewed; nursing and respiratory care staff consulted; no adverse overnight events reported to me; remains on MVS; remains with ARDS numbers; on LTVV and sedated; bronch study results p[ending; oxygenation marginally improving; CXR with persistent bilateral infi ltrates; no emesis or overt aspiration; weaned off versed but remains on propofol Objective Vital Signs - 12hr 06/26/18 06/26/18 06/26/18 02:00 03:00 03:09 Temperature 101 F H Pulse Rate 138 H 137 H Pulse Rate [ From Monitor] Respiratory 30 H 26 H Rate Blood Pressure 129/75 125/72 O2 Sat by Pulse 93 93 Oximetry 06/26/18 06/26/18 06/26/18 04:00 05:00 05:40 Temperature Pulse Rate 137 H 138 H 139 H Pulse Rate [ 130 H From Monitor] Respiratory 28 H 27 H Rate Blood Pressure 127/70 131/74 132/74 O2 Sat by Pulse 93 93 95 Oximetry 06/26/18 06/26/18 06/26/18 06:01 07:01 07:08 Temperature Pulse Rate 117 H 131 H 129 H Pulse Rate [ From Monitor] Respiratory Rate Blood Pressure 124/82 136/82 136/82 O2 Sat by Pulse 96 95 98 Oximetry 06/26/18 06/26/18 06/26/18 08:00 09:00 10:00 Temperature Pulse Rate 132 H 127 H 136 H Pulse Rate [ From Monitor] Respiratory Rate Blood Pressure 141/86 143/83 127/70 O2 Sat by Pulse 94 95 95 Oximetry 06/26/18 06/26/18 11:00 12:24 Temperature Pulse Rate 133 H 126 H Pulse Rate [ From Monitor] Respiratory Rate Blood Pressure 138/81 139/80 O2 Sat by Pulse 93 97 Oximetry Constitutional: appears uncomfortable, other (young HM normocephalic and atraumatic with moderately increased respiratory effort at rest) Eyes: non-icteric ENT: oropharynx moist, other (ETT 23 cm SATISH) Neck: supple, no lymphadenopathy, no JVD, other (no thyromegaly) Effort: mildly labored Ascultation: Bilateral: diminished breath sounds, rhonchi Percussion: Bilateral: not dull Cardiovascular: regular rate and rhythm Gastrointestinal: normoactive bowel sounds, soft, non-tender, non-distended Integumentary: rash Extremities: no cyanosis, pink and warm, pulses normal, no ischemia or petechiae, edema (trace) Neurologic: non-focal exam (grossly), pupils equal and round, motor strength normal and, unable to assess Psychiatric: other (unable to assess) CBC and BMP: 06/27/18 05:15 06/27/18 05:15 ABG, PT/INR, D-dimer: ABG POC ABG pH 7.240 (7.35-7.45) L 06/26/18 05:29 POC ABG pCO2 67.6 (35-45) H 06/26/18 05:29 POC ABG pO2 106 (80-105) H 06/26/18 05:29 POC ABG HCO3 28.9 06/26/18 05:29 POC ABG Total CO2 31 06/26/18 05:29 POC ABG O2 Sat 97 06/26/18 05:29 PT/INR, D-dimer PT 15.6 Sec. (12.2-14.9) H 06/24/18 Unknown INR 1.17 (0.87-1.13) H 06/24/18 Unknown D-Dimer 8449.09 ng/mlDDU (0-234) H 06/19/18 Unknown Abnormal lab findings: Abnormal Labs 06/19/18 06/19/18 06/19/18 03:31 07:11 07:42 WBC RBC Hgb Hct MCV RDW Seg Neuts % (Manual) Lymphocytes % (Manual) Seg Neutrophils # Man Abs Lymphs (Manual) 409 L Lymphocytes # (Manual) PT INR D-Dimer POC ABG pH 6.974 L POC ABG pCO2 22.0 L 83.4 H POC ABG pO2 28 L 122 H Sodium Potassium Chloride Carbon Dioxide BUN Creatinine Glucose POC Glucose Calcium AST ALT C-Reactive Protein Total Protein Albumin Triglycerides Ur Specific [place] Urine WBC (Auto) Urine Creatinine Urine Total Protein Lymph Enumerat CD4/CD8 0.05 L % CD3 Cells 45 L Absolute CD3 Count 185 L % CD4 Cells 2 L Absolute CD4 Count 10 L % CD8 Cells 43 H Absolute CD8 Count 167 L Absolute CD19 Count 79 L HIV DNA Qual (PCR) HIV-1 RNA PCR copies/ml HIV-1 RNA (PCR) log Miscellaneous Test 06/19/18 06/19/18 06/19/18 08:07 08:16 09:20 WBC RBC Hgb Hct MCV RDW Seg Neuts % (Manual) Lymphocytes % (Manual) Seg Neutrophils # Man Abs Lymphs (Manual) Lymphocytes # (Manual) PT INR D-Dimer POC ABG pH 6.996 L POC ABG pCO2 82.4 H POC ABG pO2 Sodium Potassium Chloride Carbon Dioxide BUN Creatinine Glucose POC Glucose Calcium AST ALT C-Reactive Protein Total Protein Albumin Triglycerides Ur Specific [place] 1.060 H Urine WBC (Auto) 8.0 H Urine Creatinine Urine Total Protein Lymph Enumerat CD4/CD8 % CD3 Cells Absolute CD3 Count % CD4 Cells Absolute CD4 Count % CD8 Cells Absolute CD8 Count Absolute CD19 Count HIV DNA Qual (PCR) Detected H HIV-1 RNA PCR copies/ml HIV-1 RNA (PCR) log Miscellaneous Test 06/19/18 06/19/18 06/19/18 09:49 11:15 15:16 WBC RBC Hgb Hct MCV RDW Seg Neuts % (Manual) Lymphocytes % (Manual) Seg Neutrophils # Man Abs Lymphs (Manual) Lymphocytes # (Manual) PT INR D-Dimer POC ABG pH 7.198 L 7.206 L POC ABG pCO2 POC ABG pO2 75 L Sodium Potassium Chloride Carbon Dioxide BUN Creatinine Glucose POC Glucose Calcium AST ALT C-Reactive Protein Total Protein Albumin Triglycerides Ur Specific [place] Urine WBC (Auto) Urine Creatinine Urine Total Protein Lymph Enumerat CD4/CD8 % CD3 Cells Absolute CD3 Count % CD4 Cells Absolute CD4 Count % CD8 Cells Absolute CD8 Count Absolute CD19 Count HIV DNA Qual (PCR) HIV-1 RNA PCR copies/ml [id number] H HIV-1 RNA (PCR) log 6.11 H Miscellaneous Test 06/19/18 06/19/18 06/19/18 18:54 Unknown Unknown WBC 12.9 H RBC Hgb Hct MCV RDW Seg Neuts % (Manual) Lymphocytes % (Manual) 5.0 L Seg Neutrophils # Man Abs Lymphs (Manual) Lymphocytes # (Manual) 0.6 L PT 15.9 H INR 1.19 H D-Dimer 8449.09 H POC ABG pH POC ABG pCO2 POC ABG pO2 Sodium Potassium Chloride Carbon Dioxide BUN Creatinine Glucose POC Glucose 196 H Calcium AST ALT C-Reactive Protein Total Protein Albumin Triglycerides Ur Specific [place] Urine WBC (Auto) Urine Creatinine Urine Total Protein Lymph Enumerat CD4/CD8 % CD3 Cells Absolute CD3 Count % CD4 Cells Absolute CD4 Count % CD8 Cells Absolute CD8 Count Absolute CD19 Count HIV DNA Qual (PCR) HIV-1 RNA PCR copies/ml HIV-1 RNA (PCR) log Miscellaneous Test 06/19/18 06/19/18 06/20/18 Unknown Unknown 04:33 WBC RBC Hgb Hct MCV RDW Seg Neuts % (Manual) Lymphocytes % (Manual) Seg Neutrophils # Man Abs Lymphs (Manual) Lymphocytes # (Manual) PT INR D-Dimer POC ABG pH 7.249 L POC ABG pCO2 POC ABG pO2 118 H Sodium 129 L Potassium Chloride 90.7 L Carbon Dioxide 17 L BUN Creatinine 0.6 L Glucose 199 H POC Glucose Calcium 8.1 L AST 53 H ALT C-Reactive Protein Total Protein 6.0 L Albumin 2.8 L Triglycerides Ur Specific [place] Urine WBC (Auto) Urine Creatinine Urine Total Protein Lymph Enumerat CD4/CD8 % CD3 Cells Absolute CD3 Count % CD4 Cells Absolute CD4 Count % CD8 Cells Absolute CD8 Count Absolute CD19 Count HIV DNA Qual (PCR) HIV-1 RNA PCR copies/ml HIV-1 RNA (PCR) log Miscellaneous Test 06/20/18 06/20/18 06/20/18 08:13 08:13 12:59 WBC 11.8 H RBC 3.25 L Hgb 9.8 L D Hct 30.4 L D MCV RDW Seg Neuts % (Manual) 99.0 H Lymphocytes % (Manual) 1.0 L Seg Neutrophils # Man 11.7 H Abs Lymphs (Manual) Lymphocytes # (Manual) 0.1 L PT INR D-Dimer POC ABG pH POC ABG pCO2 POC ABG pO2 Sodium Potassium Chloride Carbon Dioxide 19 L BUN Creatinine Glucose 223 H POC Glucose 174 H Calcium 6.6 L D AST 1240 H ALT 836 H C-Reactive Protein Total Protein 4.9 L Albumin 2.1 L Triglycerides Ur Specific [place] Urine WBC (Auto) Urine Creatinine Urine Total Protein Lymph Enumerat CD4/CD8 % CD3 Cells Absolute CD3 Count % CD4 Cells Absolute CD4 Count % CD8 Cells Absolute CD8 Count Absolute CD19 Count HIV DNA Qual (PCR) HIV-1 RNA PCR copies/ml HIV-1 RNA (PCR) log Miscellaneous Test 06/20/18 06/20/18 06/21/18 17:42 23:44 04:08 WBC RBC Hgb Hct MCV RDW Seg Neuts % (Manual) Lymphocytes % (Manual) Seg Neutrophils # Man Abs Lymphs (Manual) Lymphocytes # (Manual) PT INR D-Dimer POC ABG pH 7.309 L POC ABG pCO2 POC ABG pO2 Sodium Potassium Chloride Carbon Dioxide BUN Creatinine Glucose POC Glucose 177 H 195 H Calcium AST ALT C-Reactive Protein Total Protein Albumin Triglycerides Ur Specific [place] Urine WBC (Auto) Urine Creatinine Urine Total Protein Lymph Enumerat CD4/CD8 % CD3 Cells Absolute CD3 Count % CD4 Cells Absolute CD4 Count % CD8 Cells Absolute CD8 Count Absolute CD19 Count HIV DNA Qual (PCR) HIV-1 RNA PCR copies/ml HIV-1 RNA (PCR) log Miscellaneous Test 06/21/18 06/21/18 06/21/18 04:19 04:19 05:27 WBC 13.8 H RBC 3.02 L Hgb 9.2 L Hct 28.0 L MCV RDW Seg Neuts % (Manual) Lymphocytes % (Manual) Seg Neutrophils # Man Abs Lymphs (Manual) Lymphocytes # (Manual) PT INR D-Dimer POC ABG pH POC ABG pCO2 POC ABG pO2 Sodium 135 L Potassium Chloride Carbon Dioxide 21 L BUN Creatinine 0.7 L Glucose 161 H POC Glucose 187 H Calcium 7.2 L AST 390 H ALT 622 H C-Reactive Protein Total Protein 5.3 L Albumin 2.4 L Triglycerides Ur Specific [place] Urine WBC (Auto) Urine Creatinine Urine Total Protein Lymph Enumerat CD4/CD8 % CD3 Cells Absolute CD3 Count % CD4 Cells Absolute CD4 Count % CD8 Cells Absolute CD8 Count Absolute CD19 Count HIV DNA Qual (PCR) HIV-1 RNA PCR copies/ml HIV-1 RNA (PCR) log Miscellaneous Test 06/21/18 06/21/18 06/21/18 11:33 12:32 17:45 WBC RBC Hgb Hct MCV RDW Seg Neuts % (Manual) Lymphocytes % (Manual) Seg Neutrophils # Man Abs Lymphs (Manual) Lymphocytes # (Manual) PT INR D-Dimer POC ABG pH POC ABG pCO2 POC ABG pO2 Sodium Potassium Chloride Carbon Dioxide BUN Creatinine Glucose POC Glucose 147 H 172 H Calcium AST ALT C-Reactive Protein Total Protein Albumin Triglycerides Ur Specific [place] Urine WBC (Auto) Urine Creatinine Urine Total Protein Lymph Enumerat CD4/CD8 % CD3 Cells Absolute CD3 Count % CD4 Cells Absolute CD4 Count % CD8 Cells Absolute CD8 Count Absolute CD19 Count HIV DNA Qual (PCR) HIV-1 RNA PCR copies/ml HIV-1 RNA (PCR) log Miscellaneous Test see below H 06/21/18 06/22/18 06/22/18 23:25 04:47 04:47 WBC 11.5 H RBC 2.93 L Hgb 9.0 L Hct 26.5 L MCV RDW Seg Neuts % (Manual) Lymphocytes % (Manual) Seg Neutrophils # Man Abs Lymphs (Manual) Lymphocytes # (Manual) PT INR D-Dimer POC ABG pH POC ABG pCO2 POC ABG pO2 Sodium Potassium Chloride Carbon Dioxide BUN 22 H Creatinine Glucose 201 H POC Glucose 152 H Calcium 7.8 L AST 129 H ALT 416 H C-Reactive Protein Total Protein 5.3 L Albumin 2.4 L Triglycerides Ur Specific [place] Urine WBC (Auto) Urine Creatinine Urine Total Protein Lymph Enumerat CD4/CD8 % CD3 Cells Absolute CD3 Count % CD4 Cells Absolute CD4 Count % CD8 Cells Absolute CD8 Count Absolute CD19 Count HIV DNA Qual (PCR) HIV-1 RNA PCR copies/ml HIV-1 RNA (PCR) log Miscellaneous Test 06/22/18 06/22/18 06/22/18 05:23 11:43 17:45 WBC RBC Hgb Hct MCV RDW Seg Neuts % (Manual) Lymphocytes % (Manual) Seg Neutrophils # Man Abs Lymphs (Manual) Lymphocytes # (Manual) PT INR D-Dimer POC ABG pH POC ABG pCO2 POC ABG pO2 Sodium Potassium Chloride Carbon Dioxide BUN Creatinine Glucose POC Glucose 170 H 175 H 176 H Calcium AST ALT C-Reactive Protein Total Protein Albumin Triglycerides Ur Specific [place] Urine WBC (Auto) Urine Creatinine Urine Total Protein Lymph Enumerat CD4/CD8 % CD3 Cells Absolute CD3 Count % CD4 Cells Absolute CD4 Count % CD8 Cells Absolute CD8 Count Absolute CD19 Count HIV DNA Qual (PCR) HIV-1 RNA PCR copies/ml HIV-1 RNA (PCR) log Miscellaneous Test 06/23/18 06/23/18 06/23/18 00:24 05:06 05:11 WBC 11.2 H RBC 2.78 L Hgb 8.6 L Hct 25.3 L MCV RDW Seg Neuts % (Manual) Lymphocytes % (Manual) Seg Neutrophils # Man Abs Lymphs (Manual) Lymphocytes # (Manual) PT INR D-Dimer POC ABG pH POC ABG pCO2 POC ABG pO2 Sodium Potassium Chloride Carbon Dioxide BUN Creatinine Glucose POC Glucose 178 H 182 H Calcium AST ALT C-Reactive Protein Total Protein Albumin Triglycerides Ur Specific [place] Urine WBC (Auto) Urine Creatinine Urine Total Protein Lymph Enumerat CD4/CD8 % CD3 Cells Absolute CD3 Count % CD4 Cells Absolute CD4 Count % CD8 Cells Absolute CD8 Count Absolute CD19 Count HIV DNA Qual (PCR) HIV-1 RNA PCR copies/ml HIV-1 RNA (PCR) log Miscellaneous Test 06/23/18 06/23/18 06/23/18 05:11 05:51 12:21 WBC RBC Hgb Hct MCV RDW Seg Neuts % (Manual) Lymphocytes % (Manual) Seg Neutrophils # Man Abs Lymphs (Manual) Lymphocytes # (Manual) PT INR D-Dimer POC ABG pH POC ABG pCO2 POC ABG pO2 69 L Sodium Potassium Chloride Carbon Dioxide BUN 34 H Creatinine 1.7 H D Glucose 191 H POC Glucose 181 H Calcium 7.5 L AST 63 H ALT 297 H C-Reactive Protein Total Protein 5.3 L Albumin 2.4 L Triglycerides Ur Specific [place] Urine WBC (Auto) Urine Creatinine Urine Total Protein Lymph Enumerat CD4/CD8 % CD3 Cells Absolute CD3 Count % CD4 Cells Absolute CD4 Count % CD8 Cells Absolute CD8 Count Absolute CD19 Count HIV DNA Qual (PCR) HIV-1 RNA PCR copies/ml HIV-1 RNA (PCR) log Miscellaneous Test 06/23/18 06/23/18 06/23/18 13:57 17:00 18:40 WBC RBC Hgb Hct MCV RDW Seg Neuts % (Manual) Lymphocytes % (Manual) Seg Neutrophils # Man Abs Lymphs (Manual) Lymphocytes # (Manual) PT INR D-Dimer POC ABG pH POC ABG pCO2 POC ABG pO2 Sodium Potassium Chloride Carbon Dioxide BUN 38 H Creatinine 1.8 H Glucose POC Glucose 196 H Calcium AST ALT C-Reactive Protein 1.60 H Total Protein Albumin Triglycerides Ur Specific [place] Urine WBC (Auto) Urine Creatinine Urine Total Protein Lymph Enumerat CD4/CD8 % CD3 Cells Absolute CD3 Count % CD4 Cells Absolute CD4 Count % CD8 Cells Absolute CD8 Count Absolute CD19 Count HIV DNA Qual (PCR) HIV-1 RNA PCR copies/ml HIV-1 RNA (PCR) log Miscellaneous Test 06/23/18 06/23/18 06/24/18 21:16 23:22 04:12 WBC RBC 2.89 L Hgb 8.8 L Hct 26.9 L MCV RDW Seg Neuts % (Manual) Lymphocytes % (Manual) Seg Neutrophils # Man Abs Lymphs (Manual) Lymphocytes # (Manual) PT INR D-Dimer POC ABG pH 7.311 L POC ABG pCO2 47.4 H POC ABG pO2 Sodium Potassium Chloride Carbon Dioxide BUN Creatinine Glucose POC Glucose 165 H Calcium AST ALT C-Reactive Protein Total Protein Albumin Triglycerides Ur Specific [place] Urine WBC (Auto) Urine Creatinine Urine Total Protein Lymph Enumerat CD4/CD8 % CD3 Cells Absolute CD3 Count % CD4 Cells Absolute CD4 Count % CD8 Cells Absolute CD8 Count Absolute CD19 Count HIV DNA Qual (PCR) HIV-1 RNA PCR copies/ml HIV-1 RNA (PCR) log Miscellaneous Test 06/24/18 06/24/18 06/24/18 04:12 04:46 05:24 WBC RBC Hgb Hct MCV RDW Seg Neuts % (Manual) Lymphocytes % (Manual) Seg Neutrophils # Man Abs Lymphs (Manual) Lymphocytes # (Manual) PT INR D-Dimer POC ABG pH 7.250 L POC ABG pCO2 55.8 H POC ABG pO2 Sodium Potassium 5.4 H Chloride Carbon Dioxide BUN 44 H Creatinine 2.2 H Glucose 206 H POC Glucose 183 H Calcium 7.5 L AST ALT C-Reactive Protein Total Protein Albumin Triglycerides Ur Specific [place] Urine WBC (Auto) Urine Creatinine Urine Total Protein Lymph Enumerat CD4/CD8 % CD3 Cells Absolute CD3 Count % CD4 Cells Absolute CD4 Count % CD8 Cells Absolute CD8 Count Absolute CD19 Count HIV DNA Qual (PCR) HIV-1 RNA PCR copies/ml HIV-1 RNA (PCR) log Miscellaneous Test 06/24/18 06/24/18 06/24/18 11:14 16:40 17:16 WBC RBC Hgb Hct MCV RDW Seg Neuts % (Manual) Lymphocytes % (Manual) Seg Neutrophils # Man Abs Lymphs (Manual) Lymphocytes # (Manual) PT INR D-Dimer POC ABG pH 7.067 L POC ABG pCO2 91.7 H POC ABG pO2 134 H Sodium Potassium Chloride Carbon Dioxide BUN Creatinine Glucose POC Glucose 151 H 195 H Calcium AST ALT C-Reactive Protein Total Protein Albumin Triglycerides Ur Specific [place] Urine WBC (Auto) Urine Creatinine Urine Total Protein Lymph Enumerat CD4/CD8 % CD3 Cells Absolute CD3 Count % CD4 Cells Absolute CD4 Count % CD8 Cells Absolute CD8 Count Absolute CD19 Count HIV DNA Qual (PCR) HIV-1 RNA PCR copies/ml HIV-1 RNA (PCR) log Miscellaneous Test 06/24/18 06/24/18 06/24/18 18:03 22:45 22:45 WBC RBC Hgb Hct MCV RDW Seg Neuts % (Manual) Lymphocytes % (Manual) Seg Neutrophils # Man Abs Lymphs (Manual) Lymphocytes # (Manual) PT INR D-Dimer POC ABG pH 7.234 L POC ABG pCO2 59.9 H POC ABG pO2 121 H Sodium Potassium Chloride Carbon Dioxide BUN Creatinine Glucose POC Glucose Calcium AST ALT C-Reactive Protein Total Protein Albumin Triglycerides Ur Specific [place] Urine WBC (Auto) 9.0 H Urine Creatinine 47.2 H Urine Total Protein 25 H Lymph Enumerat CD4/CD8 % CD3 Cells Absolute CD3 Count % CD4 Cells Absolute CD4 Count % CD8 Cells Absolute CD8 Count Absolute CD19 Count HIV DNA Qual (PCR) HIV-1 RNA PCR copies/ml HIV-1 RNA (PCR) log Miscellaneous Test 06/24/18 06/24/18 06/25/18 Unknown 23:59 04:36 WBC RBC Hgb Hct MCV RDW Seg Neuts % (Manual) Lymphocytes % (Manual) Seg Neutrophils # Man Abs Lymphs (Manual) Lymphocytes # (Manual) PT 15.6 H INR 1.17 H D-Dimer POC ABG pH 7.200 L POC ABG pCO2 65.3 H POC ABG pO2 Sodium Potassium Chloride Carbon Dioxide BUN Creatinine Glucose POC Glucose 233 H Calcium AST ALT C-Reactive Protein Total Protein Albumin Triglycerides Ur Specific [place] Urine WBC (Auto) Urine Creatinine Urine Total Protein Lymph Enumerat CD4/CD8 % CD3 Cells Absolute CD3 Count % CD4 Cells Absolute CD4 Count % CD8 Cells Absolute CD8 Count Absolute CD19 Count HIV DNA Qual (PCR) HIV-1 RNA PCR copies/ml HIV-1 RNA (PCR) log Miscellaneous Test 06/25/18 06/25/18 06/25/18 05:29 11:12 11:40 WBC RBC 2.67 L Hgb 8.5 L Hct 25.6 L MCV 96 H RDW 16.0 H Seg Neuts % (Manual) Lymphocytes % (Manual) Seg Neutrophils # Man Abs Lymphs (Manual) Lymphocytes # (Manual) PT INR D-Dimer POC ABG pH POC ABG pCO2 POC ABG pO2 Sodium Potassium Chloride Carbon Dioxide BUN Creatinine Glucose POC Glucose 212 H 244 H Calcium AST ALT C-Reactive Protein Total Protein Albumin Triglycerides Ur Specific [place] Urine WBC (Auto) Urine Creatinine Urine Total Protein Lymph Enumerat CD4/CD8 % CD3 Cells Absolute CD3 Count % CD4 Cells Absolute CD4 Count % CD8 Cells Absolute CD8 Count Absolute CD19 Count HIV DNA Qual (PCR) HIV-1 RNA PCR copies/ml HIV-1 RNA (PCR) log Miscellaneous Test 06/25/18 06/25/18 06/25/18 11:40 17:18 18:08 WBC RBC Hgb Hct MCV RDW Seg Neuts % (Manual) Lymphocytes % (Manual) Seg Neutrophils # Man Abs Lymphs (Manual) Lymphocytes # (Manual) PT INR D-Dimer POC ABG pH 7.206 L POC ABG pCO2 68.1 H POC ABG pO2 Sodium Potassium 5.8 H Chloride Carbon Dioxide BUN 48 H Creatinine 2.1 H Glucose 293 H POC Glucose 264 H Calcium 7.5 L AST ALT C-Reactive Protein Total Protein Albumin Triglycerides Ur Specific [place] Urine WBC (Auto) Urine Creatinine Urine Total Protein Lymph Enumerat CD4/CD8 % CD3 Cells Absolute CD3 Count % CD4 Cells Absolute CD4 Count % CD8 Cells Absolute CD8 Count Absolute CD19 Count HIV DNA Qual (PCR) HIV-1 RNA PCR copies/ml HIV-1 RNA (PCR) log Miscellaneous Test 06/25/18 06/25/18 06/26/18 21:20 23:59 05:10 WBC RBC Hgb Hct MCV RDW Seg Neuts % (Manual) Lymphocytes % (Manual) Seg Neutrophils # Man Abs Lymphs (Manual) Lymphocytes # (Manual) PT INR D-Dimer POC ABG pH 7.220 L POC ABG pCO2 65.0 H POC ABG pO2 71 L Sodium Potassium Chloride Carbon Dioxide BUN Creatinine Glucose POC Glucose 231 H 259 H Calcium AST ALT C-Reactive Protein Total Protein Albumin Triglycerides Ur Specific [place] Urine WBC (Auto) Urine Creatinine Urine Total Protein Lymph Enumerat CD4/CD8 % CD3 Cells Absolute CD3 Count % CD4 Cells Absolute CD4 Count % CD8 Cells Absolute CD8 Count Absolute CD19 Count HIV DNA Qual (PCR) HIV-1 RNA PCR copies/ml HIV-1 RNA (PCR) log Miscellaneous Test 06/26/18 06/26/18 06/26/18 05:29 07:25 07:25 WBC 12.0 H RBC 2.69 L Hgb 8.2 L Hct 25.5 L MCV 95 H RDW 15.7 H Seg Neuts % (Manual) Lymphocytes % (Manual) Seg Neutrophils # Man Abs Lymphs (Manual) Lymphocytes # (Manual) PT INR D-Dimer POC ABG pH 7.240 L POC ABG pCO2 67.6 H POC ABG pO2 106 H Sodium Potassium 5.2 H Chloride Carbon Dioxide BUN 58 H Creatinine 1.9 H Glucose 219 H POC Glucose Calcium 7.9 L AST ALT C-Reactive Protein Total Protein Albumin Triglycerides Ur Specific [place] Urine WBC (Auto) Urine Creatinine Urine Total Protein Lymph Enumerat CD4/CD8 % CD3 Cells Absolute CD3 Count % CD4 Cells Absolute CD4 Count % CD8 Cells Absolute CD8 Count Absolute CD19 Count HIV DNA Qual (PCR) HIV-1 RNA PCR copies/ml HIV-1 RNA (PCR) log Miscellaneous Test 06/26/18 07:25 WBC RBC Hgb Hct MCV RDW Seg Neuts % (Manual) Lymphocytes % (Manual) Seg Neutrophils # Man Abs Lymphs (Manual) Lymphocytes # (Manual) PT INR D-Dimer POC ABG pH POC ABG pCO2 POC ABG pO2 Sodium Potassium Chloride Carbon Dioxide BUN Creatinine Glucose POC Glucose Calcium AST ALT C-Reactive Protein Total Protein Albumin Triglycerides 174 H Ur Specific [place] Urine WBC (Auto) Urine Creatinine Urine Total Protein Lymph Enumerat CD4/CD8 % CD3 Cells Absolute CD3 Count % CD4 Cells Absolute CD4 Count % CD8 Cells Absolute CD8 Count Absolute CD19 Count HIV DNA Qual (PCR) HIV-1 RNA PCR copies/ml HIV-1 RNA (PCR) log Miscellaneous Test Allied health notes reviewed: nursing
[2018-06-26] MEDS: VANCOMYCIN 1,250 MG in NACL 0.9% 250ML 250 ML IV SCH (13:20)
[2018-06-26] MEDS ORDERED: PANCREAZE DR 10,500 UNIT FEEDTUBE PRN (14:36)
[2018-06-26] MEDS ORDERED: SODIUM BICARBONATE FEEDTUBE PRN (14:36)
[2018-06-26] MEDS ORDERED: SIMPLE SYRUP FEEDTUBE PRN ×2 (14:36)
[2018-06-26] MEDS: DUONEB *Not for PRN Use IH SCH ×2 (14:49→21:37)
[2018-06-26] MEDS: BACTRIM IV SCH ×2 (16:21→23:33)
[2018-06-26] MEDS: NACL 0.45% 1000 ML 1,000 ML IV SCH (21:09)
[2018-06-26] MEDS: ELIQUIS PO SCH (22:02)
[2018-06-27] MEDS: DIPRIVAN 10 MG/ML 1,000 MG/100 ML BOTTLE IV SCH ×5 (00:07→19:38)
[2018-06-27] MEDS: HumaLOG SUB-Q SCH ×4 (00:38→18:05)
[2018-06-27] MEDS: DUONEB *Not for PRN Use IH SCH ×4 (02:57→20:52)
[2018-06-27] MEDS: fentaNYL DRIP Premix 2,000 MCG/100 ML BAG IV SCH ×3 (04:07→17:49)
[2018-06-27 05:26] LABS: Hematocrit 22.4 % (35.5-45.6); Hemoglobin 7.6 gm/dl (11.8-15.2); Mean Corpuscular HGB Conc 34 % (32-34); Mean Corpuscular Volume 93 fl (84-94); Platelet Count 174 K/mm3 (140-440); Red Blood Count 2.41 M/mm3 (3.65-5.03); Red Cell Distribution Width 14.9 % (13.2-15.2)
[2018-06-27 05:50] LABS: Calcium 7.7 mg/dL (8.4-10.2)
[2018-06-27] MEDS: D5W IV SCH ×3 (06:01→21:39)
[2018-06-27] MEDS: BACTRIM IV SCH ×2 (06:01→21:39)
[2018-06-27] MEDS: KIONEX PO SCH ×2 (09:40→15:15)
--- NOTE | 2018-06-27 09:41 | Progress Note ---
Assessment and Plan Assessment and plan: Patient is 32-year-old man with hypertension comes emergency room with complaints of shortness of breath, cough for 3days. He was found to have extensive bilateral pneumonia, placed on BiPAP but he failed. The patient had to be intubated. 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 DFA showed rare PJP * Patient has been treated for bilateral pneumonia secondary to above-mentioned organisms * He also developed acute kidney injury likely secondary to Multifactorial etiology in setting of pre-renal injury, ATN secondary sepsis, contrast exposure, voriconazole, bactrim/antibiotic exposure. * Echocardiogram obtained that shows an EF of 55-60% with moderate pulmonary hypertension ARDS Acute respiratory failure with hypoxia requiring full mechanical ventilatory support Sepsis secondary to bilateral pneumonia Excessive bilateral pneumonia HIV/AIDS Hyponatremia Epixtasis JENNIFER secondary to Multifactorial in setting of pre-renal injury, ATN secondary sepsis, contrast exposure, voriconazole, bactrim/antibiotic exposure. 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 Since patient is from [place] ECHO ordered and pending CT chest when stable VAP precautions agree with continuation of Tamiflu till flu PCR is also noted. Awaiting family to assist with patient's medical history and any home medications DVT and GI prophylaxis Hyperkalemia improving Case discussed with nursing staff. No family present Poor prognosis The high probability of a clinically significant, sudden or life threatening deterioration of the [Pulmonary] system(s) required my full and direct attention, intervention and personal management. The aggregate critical care time was [31] minutes. This time is in addition to time spent performing reported procedures but includes the following: [x] Data Review and interpretation [x] Patient assessment and monitoring of vital signs [x] Documentation [x] Medication orders and management History Interval history: Patient remains intubated, Fever of 100.3 this morning Hospitalist Physical - Physical exam Narrative exam: GEN: Intubated, HEENT: Normocephalic, atraumatic, Neck: supple, No JVD Lungs: Bilateral crackles, no wheeze Heart:S1 and S2 regular, no murmurs, rubs or gallop, Abd:soft, non tender, non distended, normal bowel sounds Ext: No edema, no clubbing or cyanosis Neuro: Intubated, sedated - Constitutional Vitals: Temp Pulse Resp BP Pulse Ox 100.3 F H 118 H 35 H 131/80 93 06/27/18 04:00 06/27/18 07:49 06/27/18 07:49 06/27/18 07:39 06/27/18 07:39 Results - Labs CBC & Chem 7: 06/27/18 05:15 06/27/18 05:15 Labs: Laboratory Last Values WBC 9.9 K/mm3 (4.5-11.0) 06/27/18 05:15 RBC 2.41 M/mm3 (3.65-5.03) L 06/27/18 05:15 Hgb 7.6 gm/dl (11.8-15.2) L 06/27/18 05:15 Hct 22.4 % (35.5-45.6) L 06/27/18 05:15 MCV 93 fl (84-94) 06/27/18 05:15 MCH 31 pg (28-32) 06/27/18 05:15 MCHC 34 % (32-34) 06/27/18 05:15 RDW 14.9 % (13.2-15.2) 06/27/18 05:15 Plt Count 174 K/mm3 (140-440) 06/27/18 05:15 Add Manual Diff Complete 06/20/18 08:13 Total Counted 100 06/20/18 08:13 Seg Neutrophils % Insulation Board Calender Operator 06/20/18 08:13 Seg Neuts % (Manual) 99.0 % (40.0-70.0) H 06/20/18 08:13 Band Neutrophils % 0 % 06/20/18 08:13 Lymphocytes % (Manual) 1.0 % (13.4-35.0) L 06/20/18 08:13 Reactive Lymphs % (Man) 0 % 06/20/18 08:13 Monocytes % (Manual) 0 % (0.0-7.3) 06/20/18 08:13 Eosinophils % (Manual) 0 % (0.0-4.3) 06/20/18 08:13 Basophils % (Manual) 0 % (0.0-1.8) 06/20/18 08:13 Metamyelocytes % 0 % 06/20/18 08:13 Myelocytes % 0 % 06/20/18 08:13 Promyelocytes % 0 % 06/20/18 08:13 Blast Cells % 0 % 06/20/18 08:13 Nucleated RBC % Not Reportable 06/20/18 08:13 Seg Neutrophils # Man 11.7 K/mm3 (1.8-7.7) H 06/20/18 08:13 Band Neutrophils # 0.0 K/mm3 06/20/18 08:13 Abs Lymphs (Manual) 409 cells/uL (850-3900) L 06/19/18 07:11 Lymphocytes # (Manual) 0.1 K/mm3 (1.2-5.4) L 06/20/18 08:13 Abs React Lymphs (Man) 0.0 K/mm3 06/20/18 08:13 Monocytes # (Manual) 0.0 K/mm3 (0.0-0.8) 06/20/18 08:13 Eosinophils # (Manual) 0.0 K/mm3 (0.0-0.4) 06/20/18 08:13 Basophils # (Manual) 0.0 K/mm3 (0.0-0.1) 06/20/18 08:13 Metamyelocytes # 0.0 K/mm3 06/20/18 08:13 Myelocytes # 0.0 K/mm3 06/20/18 08:13 Promyelocytes # 0.0 K/mm3 06/20/18 08:13 Blast Cells # 0.0 K/mm3 06/20/18 08:13 WBC Morphology Not Reportable 06/20/18 08:13 Hypersegmented Neuts Not Reportable 06/20/18 08:13 Hyposegmented Neuts Not Reportable 06/20/18 08:13 Hypogranular Neuts Not Reportable 06/20/18 08:13 Smudge Cells Not Reportable 06/20/18 08:13 Toxic Granulation Not Reportable 06/20/18 08:13 Toxic Vacuolation Not Reportable 06/20/18 08:13 Dohle Bodies Not Reportable 06/20/18 08:13 Pelger-Huet Anomaly Not Reportable 06/20/18 08:13 Loretta Rods Not Reportable 06/20/18 08:13 Platelet Estimate Consistent w auto 06/20/18 08:13 Clumped Platelets Not Reportable 06/20/18 08:13 Plt Clumps, EDTA Not Reportable 06/20/18 08:13 Large Platelets Not Reportable 06/20/18 08:13 Giant Platelets Not Reportable 06/20/18 08:13 Platelet Satelliting Not Reportable 06/20/18 08:13 Plt Morphology Comment Not Reportable 06/20/18 08:13 RBC Morphology Not Reportable 06/20/18 08:13 Dimorphic RBCs Not Reportable 06/20/18 08:13 Polychromasia Not Reportable 06/20/18 08:13 Hypochromasia Not Reportable 06/20/18 08:13 Poikilocytosis 1+ 06/20/18 08:13 Anisocytosis 1+ 06/20/18 08:13 Microcytosis Not Reportable 06/20/18 08:13 Macrocytosis Not Reportable 06/20/18 08:13 Spherocytes Not Reportable 06/20/18 08:13 Pappenheimer Bodies Not Reportable 06/20/18 08:13 Sickle Cells Not Reportable 06/20/18 08:13 Target Cells Not Reportable 06/20/18 08:13 Tear Drop Cells Not Reportable 06/20/18 08:13 Ovalocytes 1+ 06/20/18 08:13 Helmet Cells Not Reportable 06/20/18 08:13 Flores-Langford Bodies Not Reportable 06/20/18 08:13 [place] Rings Not Reportable 06/20/18 08:13 [place] Cells Not Reportable 06/20/18 08:13 Bite Cells Not Reportable 06/20/18 08:13 Crenated Cell Not Reportable 06/20/18 08:13 Elliptocytes Not Reportable 06/20/18 08:13 Acanthocytes (Spur) Not Reportable 06/20/18 08:13 Rouleaux Not Reportable 06/20/18 08:13 Hemoglobin C Crystals Not Reportable 06/20/18 08:13 Schistocytes Not Reportable 06/20/18 08:13 Malaria parasites Not Reportable 06/20/18 08:13 Jesus Bodies Not Reportable 06/20/18 08:13 Hem Pathologist Commnt No 06/20/18 08:13 PT 15.6 Sec. (12.2-14.9) H 06/24/18 Unknown INR 1.17 (0.87-1.13) H 06/24/18 Unknown APTT 28.7 Sec. (24.2-36.6) 06/19/18 Unknown Fibrinogen 405 mg/dl (211-480) 06/24/18 Unknown D-Dimer 8449.09 ng/mlDDU (0-234) H 06/19/18 Unknown POC ABG pH 7.266 (7.35-7.45) L 06/27/18 04:05 POC ABG pCO2 62.8 (35-45) H 06/27/18 04:05 POC ABG pO2 83 (80-105) 06/27/18 04:05 POC ABG HCO3 28.6 06/27/18 04:05 POC ABG Total CO2 30 06/27/18 04:05 POC ABG O2 Sat 94 06/27/18 04:05 POC ABG Base Excess 2 06/27/18 04:05 FiO2 50 % 06/27/18 04:05 Sodium 138 mmol/L (137-145) 06/27/18 05:15 Potassium 5.5 mmol/L (3.6-5.0) H 06/27/18 05:15 Chloride 99.6 mmol/L (98-107) 06/27/18 05:15 Carbon Dioxide 28 mmol/L (22-30) 06/27/18 05:15 Anion Gap 16 mmol/L 06/27/18 05:15 BUN 73 mg/dL (9-20) H 06/27/18 05:15 Creatinine 2.1 mg/dL (0.8-1.5) H 06/27/18 05:15 Estimated GFR 37 ml/min 06/27/18 05:15 BUN/Creatinine Ratio 35 % 06/27/18 05:15 Glucose 211 mg/dL (75-100) H 06/27/18 05:15 POC Glucose 198 (70-105) H 06/27/18 05:52 Lactic Acid 1.70 mmol/L (0.7-2.0) 06/19/18 05:26 Calcium 7.7 mg/dL (8.4-10.2) L 06/27/18 05:15 Total Bilirubin < 0.20 mg/dL (0.1-1.2) 06/23/18 05:11 Direct Bilirubin < 0.2 mg/dL (0-0.2) 06/19/18 Unknown Indirect Bilirubin 0.2 mg/dL 06/19/18 Unknown AST 63 units/L (5-40) H 06/23/18 05:11 ALT 297 units/L (7-56) H 06/23/18 05:11 Alkaline Phosphatase 127 units/L (35-129) 06/23/18 05:11 Troponin T < 0.010 ng/mL (0.00-0.029) 06/19/18 Unknown C-Reactive Protein 1.60 mg/dL (0.00-1.30) H 06/23/18 18:40 NT-Pro-B Natriuret Pep 226.4 pg/mL (0-450) 06/19/18 Unknown Total Protein 5.3 g/dL (6.3-8.2) L 06/23/18 05:11 Albumin 2.4 g/dL (3.9-5) L 06/23/18 05:11 Albumin/Globulin Ratio 0.8 % 06/23/18 05:11 Triglycerides 174 mg/dL (2-149) H 06/26/18 07:25 Urine Color Yellow (Yellow) 06/24/18 22:45 Urine Turbidity Slightly-cloudy (Clear) 06/24/18 22:45 Urine pH 5.0 (5.0-7.0) 06/24/18 22:45 Ur Specific [place] 1.014 (1.003-1.030) 06/24/18 22:45 Urine Protein <15 mg/dl mg/dL (Negative) 06/24/18 22:45 Urine Glucose (UA) Neg mg/dL (Negative) 06/24/18 22:45 Urine Ketones Neg mg/dL (Negative) 06/24/18 22:45 Urine Blood Neg (Negative) 06/24/18 22:45 Urine Nitrite Neg (Negative) 06/24/18 22:45 Urine Bilirubin Neg (Negative) 06/24/18 22:45 Urine Urobilinogen < 2.0 mg/dL (<2.0) 06/24/18 22:45 Ur Leukocyte Esterase Neg (Negative) 06/24/18 22:45 Urine WBC (Auto) 9.0 /HPF (0.0-6.0) H 06/24/18 22:45 Urine RBC (Auto) 19.0 /HPF (0.0-6.0) 06/24/18 22:45 U Epithel Cells (Auto) < 1.0 /HPF (0-13.0) 06/19/18 08:07 Urine Bacteria (Auto) 1+ /HPF (Negative) 06/24/18 22:45 Hyaline Casts 1 /LPF 06/24/18 22:45 Urine Mucus Few /HPF 06/19/18 08:07 Urine Yeast (Budding) 1+ /HPF 06/24/18 22:45 Urine Eosinophils None seen (None Seen) 06/24/18 22:45 Urine Creatinine 47.2 mg/dL (0.1-20.0) H 06/24/18 22:45 Urine Sodium 40 mmol/L 06/24/18 22:45 Urine Total Protein 25 mg/dL (5-11.8) H 06/24/18 22:45 Random Vancomycin 6.5 ug/mL (0-40.0) 06/25/18 11:40 Urine Opiates Screen Presumptive negative 06/19/18 08:06 Urine Methadone Screen Presumptive negative 06/19/18 08:06 Ur Barbiturates Screen Presumptive negative 06/19/18 08:06 Ur Phencyclidine Scrn Presumptive negative 06/19/18 08:06 Ur Amphetamines Screen Presumptive negative 06/19/18 08:06 U Benzodiazepines Scrn Presumptive positive 06/19/18 08:06 Urine Cocaine Screen Presumptive negative 06/19/18 08:06 U Marijuana (THC) Screen Presumptive negative 06/19/18 08:06 Drugs of Abuse Note Disclamer 06/19/18 08:06 Lymph Enumerat CD4/CD8 0.05 (0.86-5.00) L 06/19/18 07:11 % CD3 Cells 45 % (57-85) L 06/19/18 07:11 Absolute CD3 Count 185 cells/uL (840-3060) L 06/19/18 07:11 % CD4 Cells 2 % (30-61) L 06/19/18 07:11 Absolute CD4 Count 10 cells/uL (490-1740) L 06/19/18 07:11 % CD8 Cells 43 % (12-42) H 06/19/18 07:11 Absolute CD8 Count 167 cells/uL (180-1170) L 06/19/18 07:11 % CD19 Cells 18 % (6-29) 06/19/18 07:11 Absolute CD19 Count 79 cells/uL (110-660) L 06/19/18 07:11 Hepatitis A IgM Ab Non-reactive (NonReactive) 06/21/18 04:19 Hep Bs Antigen Non-reactive (Negative) 06/21/18 04:19 Hep B Core IgM Ab Non-reactive (NonReactive) 06/21/18 04:19 Hepatitis C Antibody Non-reactive (NonReactive) 06/21/18 04:19 HIV DNA Qual (PCR) Detected (Not Detected) H 06/19/18 09:20 HIV-1 Antibody See scanned results 06/19/18 07:12 HIV-1 RNA PCR copies/ml [id number] Copies/mL H 06/19/18 15:16 HIV-1 RNA (PCR) log 6.11 Log cps/mL H 06/19/18 15:16 HIV-2 Ab (Immunoblot) See scanned results 06/19/18 07:12 HIV 1&2 Antibody Rapid Reactive (Non React) 06/19/18 07:10 HIV P24 Antigen Invalid (Non React) 06/19/18 07:10 Influenza A (Rapid) Negative (Negative) 06/19/18 Unknown Influenza A (RT-PCR) Negative (Negative) 06/21/18 12:30 Influenza B (Rapid) Negative (Negative) 06/19/18 Unknown Influenza B (RT-PCR) Negative (Negative) 06/21/18 12:30 Miscellaneous Test see below H 06/21/18 12:32 Nutrition/Malnutrition Assess - Dietary Evaluation Nutrition/Malnutrition Findings: Nutrition Notes Start: 06/19/18 14:17 Freq: Status: Active Protocol: Document 06/26/18 11:00 CP (Rec: 06/26/18 11:01 CP [id number]) Co-Sign 06/26/18 11:00 LP Nutrition Notes Initial or Follow up Reassessment Current Diagnosis Hypertension Other Pertinent Diagnosis SOB, bilateral pneumonia, HIV Current Diet TF- Osmolite 1.5 @60mls/hr Labs/Tests K 5.2 BUN 58 Cr 1.9 BG 219 Pertinent Medications Reviewed. Height 5 ft 9 in Weight 86.7 kg Bruce Body Weight (kg) 72.72 BMI 28.2 Subjective/Other Information TF infusing at goal rate at time of visit. Pt remains on ventilator support. Percent of energy/protein needs met: 100%/87% Burn Absent Trauma Absent #1 Nutrition Diagnosis Inadequate oral intake Diagnosis Progress(for reassessment Continues documentation) Is patient on ventilator? Yes Is Patient Ambulatory and/or Out of Bed No REE-([facility]-confined to bed) 9640.883 Calculation Used for Recommendations [facility] Additional Notes PRO: 104-173 (1.2 - 2g KG ABW) fluid: 1 ml/kcal Nutrition Intervention Nutrition Support: Change TF to Nepro at 50 mL/hr with 200 mL water flush q4h. Kcal 2,160 Protein (gm) 97 Fluid (mL) 872 Goal #1 TF tolerance Goal #2 TF to meet 80-100% of kcal and protein needs. Anticipated Discharge Needs: Unable to determine at this time Follow-Up By: 06/27/18 Additional Comments F/U: TF formula change and renal labs
--- NOTE | 2018-06-27 09:53 | Progress Note ---
Assessment and Plan - Patient Problems (1) Acute kidney failure with tubular necrosis Current Visit: Yes Status: Acute Plan to address problem: Multifactorial in setting of pre-renal injury, ATN secondary sepsis, contrast exposure, voriconazole, bactrim/antibiotic exposure. Will monitor, continue current supportive care. Need to adjust dose antimicro bials for his decreased renal clearance. Avoid nephrotoxins as much as possible in this critically ill patient with worsening renal injury. Renal function stable at this time. We'll switch his IV fluids normal saline at 75 mL an hour. Antibiotics are being dosed for decreased renal clearance. (2) Acute respiratory failure with hypoxia Current Visit: Yes Status: Acute Plan to address problem: Management per ICU team. (3) Bilateral pneumonia Current Visit: Yes Status: Acute Qualifiers: Pneumonia type: due to unspecified organism Lung location: unspecified part of lung Qualified Code(s): J18.9 - Pneumonia, unspecified organism Plan to address problem: Antibiotics per ID recommendations. (4) AIDS (acquired immune deficiency syndrome) Current Visit: Yes Status: Acute Plan to address problem: Management per ID. (5) Anemia Current Visit: Yes Status: Acute Plan to address problem: Assess folate and B12 levels, monitor closely. Transfuse to maintain Hgb >7.0. Subjective Date of service: 06/27/18 Principal diagnosis: Acute Hypoxemic Resp Failure; AIDS / HIV positive; Severe Sepsis due to PNA Interval history: No acute changes overnight. Renal function is stable at this time. Labs noted and he has erratic blood sugar control along with hyperkalemia. We will send her to discontinue the D5 half-normal saline and switch to just normal saline. He is pending a dose of Kayexalate this morning. Objective - Vital Signs Vital signs: Vital Signs - 12hr 06/26/18 06/26/18 06/26/18 21:52 22:00 23:01 Temperature Pulse Rate 129 H 129 H Pulse Rate [ 130 H Anterior Bilateral Throughout] Pulse Rate [ 131 H From Monitor] Respiratory 19 Rate Respiratory 34 H Rate [Anterior Bilateral Throughout] Blood Pressure 129/77 130/55 O2 Sat by Pulse 91 93 Oximetry 06/26/18 06/26/18 06/27/18 23:53 23:55 00:00 Temperature 99.6 F Pulse Rate 123 H 122 H Pulse Rate [ Anterior Bilateral Throughout] Pulse Rate [ 123 H From Monitor] Respiratory 34 H Rate Respiratory Rate [Anterior Bilateral Throughout] Blood Pressure 125/75 131/75 O2 Sat by Pulse 94 92 Oximetry 06/27/18 06/27/18 06/27/18 01:00 02:00 03:00 Temperature Pulse Rate 123 H 120 H 120 H Pulse Rate [ Anterior Bilateral Throughout] Pulse Rate [ From Monitor] Respiratory Rate Respiratory Rate [Anterior Bilateral Throughout] Blood Pressure 146/86 143/82 135/81 O2 Sat by Pulse 91 91 93 Oximetry 06/27/18 06/27/18 06/27/18 03:15 04:00 04:01 Temperature 100.3 F H Pulse Rate 108 H 114 H Pulse Rate [ 128 H Anterior Bilateral Throughout] Pulse Rate [ 114 H From Monitor] Respiratory 34 H Rate Respiratory 32 H Rate [Anterior Bilateral Throughout] Blood Pressure 135/81 144/80 O2 Sat by Pulse 91 94 Oximetry 06/27/18 06/27/18 06/27/18 05:01 06:00 07:39 Temperature Pulse Rate 123 H 116 H 105 H Pulse Rate [ 117 H Anterior Bilateral Throughout] Pulse Rate [ From Monitor] Respiratory Rate Respiratory 38 H Rate [Anterior Bilateral Throughout] Blood Pressure 144/83 150/87 131/80 O2 Sat by Pulse 92 89 93 Oximetry 06/27/18 07:49 Temperature Pulse Rate Pulse Rate [ 118 H Anterior Bilateral Throughout] Pulse Rate [ From Monitor] Respiratory Rate Respiratory 35 H Rate [Anterior Bilateral Throughout] Blood Pressure O2 Sat by Pulse Oximetry - General Appearance General appearance: intubated EENT: ATNC, PERRL Neck: no JVD, no thyromegaly Respiratory: Present[facility] Cardiology: regular, S1S2 Gastrointestinal: normal, normoactive bowel sounds Integumentary: warm and dry Neurologic: other (intubated and sedated on propofol.) Musculoskeletal: other (mild edema noted on lower extremities.) - Lab 06/27/18 05:15 06/27/18 05:15 Most recent lab results Calcium 7.7 mg/dL (8.4-10.2) L 06/27/18 05:15 Urine Creatinine 47.2 mg/dL (0.1-20.0) H 06/24/18 22:45 Urine Sodium 40 mmol/L 06/24/18 22:45 Urine Total Protein 25 mg/dL (5-11.8) H 06/24/18 22:45 - Allied health notes Allied health notes reviewed: nursing Medications & Allergies - Medications Allergies/Adverse Reactions: Allergies No Known Allergies Allergy (Verified 06/19/18 06:10) Home Medications: Home Medications Medication Instructions Recorded Confirmed Last Taken Type ALBUTEROL Inhaler (OR & NICU) 2 puff IH QID PRN 06/19/18 06/19/18 Unknown History [Proair] Pantoprazole [Protonix] 40 mg PO QDAY 06/19/18 06/19/18 Unknown History levoFLOXacin [Levaquin TAB] 500 mg PO QDAY 06/19/18 06/19/18 Unknown History Active Medications: Generic Name Dose Route Start Last Admin Trade Name Freq PRN Reason Stop Dose Admin Acetaminophen 650 mg 06/19/18 06:30 06/25/18 00:04 Tylenol PO 650 mg Q4H PRN Administration Pain MILD(1-3)/Fever >100.5/WESTON Albuterol/Ipratropium 1 ampul 06/26/18 14:00 06/27/18 07:45 Duoneb *Not For Prn Use* IH 1 ampul Q6HRT PEYTON Administration Lipase/Protease/Amylase 1 each 06/19/18 16:02 Pancreaze 10,500 Unit FEEDTUBE PRN PRN For Clogged Feeding Tube Apixaban 2.5 mg 06/26/18 22:00 06/26/18 22:02 Eliquis PO 2.5 mg BID PEYTON Administration Azithromycin 1,200 mg 06/25/18 11:00 06/25/18 12:05 Zithromax PO 1,200 mg Mo PEYTON Administration Famotidine 20 mg 06/26/18 22:00 06/26/18 22:01 Pepcid PO 20 mg BID PEYTON Administration Fentanyl 50 mcg 06/19/18 06:00 06/21/18 02:05 Sublimaze IV 50 mcg Q10MIN PRN Administration ANALGESIA Hydrophilic Ointment 1 applic 06/19/18 06:00 Vaseline Lip Therapy TP Q2HR PRN Dry Lips Fentanyl Citrate 2,000 mcg in 100 mls @ 3.86 mls/hr 06/19/18 06:00 06/27/18 04:07 Fentanyl Drip Premix IV 4 mcg/kg/hr TITR PEYTON 15.441 mls/hr Administration Protocol 1 MCG/KG/HR Midazolam HCl 100 mg/ Sodium 100 mls @ 2 mls/hr 06/19/18 06:00 06/25/18 01:54 Chloride IV 0 mg/hr TITR PEYTON 0 mls/hr Titration Protocol 2 MG/HR Norepinephrine 4 mg in 250 mls @ 7.5 mls/hr 06/19/18 15:00 06/19/18 22:00 Levophed Drip 4 Mg/Ns 250 Ml IV 0 mcg/min TITR PEYTON 0 mls/hr Titration Protocol 2 MCG/MIN Sodium Chloride 1,000 mls @ 75 mls/hr 06/22/18 21:00 06/26/18 21:09 Nacl 0.45% 1000 Ml IV 75 mls/hr DIRECT PEYTON Administration Propofol 1,000 mg in 100 mls @ 2.601 mls/hr 06/24/18 15:00 06/27/18 09:01 Diprivan 10 Mg/Ml IV 40 mcg/kg/min TITR PEYTON 20.808 mls/hr Administration Protocol 5 MCG/KG/MIN Amphotericin B 400 mg/ 580 mls @ 250 mls/hr 06/25/18 10:00 06/26/18 10:29 Dextrose IV 250 mls/hr Q24HR PEYTON Administration Dextrose 500 mls @ 5 mls/hr 06/25/18 08:56 06/25/18 10:35 D5w IV 0 mls/hr PRN PRN Infusion FLUSH BEFORE AND AFTER AMPHO B Sodium Chloride 1,000 mls @ 5 mls/hr 06/25/18 20:00 06/26/18 07:22 Nacl 0.9% 1000 Ml IV 5 mls/hr DIRECT PEYTON Administration Vancomycin HCl 1,250 mg/ 275 mls @ 166.667 mls/hr 06/26/18 10:00 06/26/18 13:20 Sodium Chloride IV 166.667 mls/hr Q24HR PEYTON Administration Trimethoprim/Sulfamethoxazole 275 mls @ 350 mls/hr 06/27/18 22:00 400 mg/ Dextrose IV Q12HR PEYTON Protocol Insulin Glargine 10 units 06/26/18 13:00 06/26/18 12:47 Lantus SUB-Q 10 units DAILY PEYTON Administration Insulin Human Lispro 0 unit 06/20/18 13:00 06/27/18 06:01 Humalog SUB-Q 3 unit Q6HR PEYTON Administration Protocol Insulin Human Regular 10 units 06/27/18 09:41 Humulin R IV 06/27/18 09:42 ONCE STA Methylprednisolone Sodium Succinate 40 mg 06/19/18 22:00 06/26/18 22:01 Solu-Medrol IV 40 mg Q12HR PEYTON Administration Multi-Ingred Cream/Lotion/Oil/Oint 1 applic 06/19/18 06:00 Artificial Tears Ophth Oint OU Q4HR PRN Dry Eye(s) Ondansetron HCl 4 mg 06/19/18 06:30 Zofran IV Q8H PRN Nausea And Vomiting Phenylephrine HCl 2 spray 06/24/18 06:07 06/25/18 05:35 Thompson-Synephrine NS 2 spray Q4H PRN Administration Congestion Quetiapine Fumarate 200 mg 06/21/18 22:00 06/26/18 22:01 Seroquel PO 200 mg BID PEYTON Administration Simple Syrup 15 ml 06/19/18 16:02 Simple Syrup FEEDTUBE PRN PRN Hypoglycemia Simple Syrup 30 ml 06/19/18 16:02 Simple Syrup FEEDTUBE PRN PRN Hypoglycemia Sodium Bicarbonate 325 mg 06/19/18 16:02 Sodium Bicarbonate FEEDTUBE PRN PRN For Clogged Feeding Tube Sodium Chloride 10 ml 06/19/18 10:00 06/26/18 22:02 Sodium Chloride Flush Syringe 10 Ml IV 10 ml BID PEYTON Administration Sodium Chloride 10 ml 06/19/18 06:30 Sodium Chloride Flush Syringe 10 Ml IV PRN PRN LINE FLUSH Sodium Polystyrene Sulfonate 30 gm 06/27/18 09:00 Kionex PO 06/27/18 15:01 Q6H PEYTON
[2018-06-27] MEDS ORDERED: HumuLIN R IV STA (10:01)
[2018-06-27] MEDS: LANTUS SUB-Q SCH (10:05)
[2018-06-27] MEDS: VANCOMYCIN 1,250 MG in NACL 0.9% 250ML 250 ML IV SCH (10:12)
[2018-06-27] MEDS: SODIUM CHLORIDE FLUSH SYRINGE 10 ML IV SCH ×2 (10:20→21:42)
[2018-06-27] MEDS: ELIQUIS PO SCH ×2 (10:25→21:39)
[2018-06-27] MEDS: PEPCID PO SCH ×2 (10:25→21:40)
[2018-06-27] MEDS: SOLU-Medrol IV SCH ×2 (10:25→21:42)
[2018-06-27] MEDS: ABELCET IV SCH (10:25)
[2018-06-27] MEDS: NACL 0.9% 1000 ML 1,000 ML IV SCH (13:24)
--- NOTE | 2018-06-27 13:56 | Procedure Note ---
Date of procedure: 06/25/18 Pre-op diagnosis: ARDS Post-op diagnosis: same Procedure: FIBEROPTIC BRONCHOSCOPY WITH WASHINGS (Full dictation # [id number]) Please see dictated notes for full details
--- NOTE | 2018-06-27 14:32 | Progress Note ---
Assessment and Plan ARDS Acute Hypoxemic Respiratory Failure on MVS AIDS / HIV positive Severe Sepsis due to Pneumonia LLext DVT Hyponatremia Severe metabolic acidosis Shock liver - continue to target TV 4-6 ml/kg IBW - continue current vent settings (rate 30/min; TV 400mls with Peep at 15 now) - wean supplemental oxygen to keep O2 sats > 89% - continue permissive hypercapnia strategies - continue propofol to improve sedation and reduce patient ventilator dys- synchrony on high Peep settings - BAL cytology pending - continue anti-infectives per ID recs - 2D ECHO with normal EF - continue seroquel at 300mg bid to aid weaning off IV sedatives - continue to titrate sedatives for RASS -2 will on ARDS ventilation - continue anti-infective's per ID recommendations - completed empiric TamiFlu - trend CRP and lactate levels as necessary to aid clinical decision making - continue bronchodilators with pulmonary hygiene per RT - continue hyperventilation acutely to compensate for metabolic acidosis - VAP bundle addressed - daily SAT's - Daily SBT assessment - GI & VTE prophylaxis - enteral nutrition as tolerated - continue accuchecks q6h with glycemic control per SSI for target BG 140-180 mg/dL - continue other care per attending / other customer relations consultant's .... re-evaluate in am & prn CODE STATUS: FULL CODE The high probability of a clinically significant, sudden or life-threatening deterioration of the [cardiac, neurology] system(s) required my full and direct attention, intervention and personal management. The aggregate critical care time was [32] minutes without overlap. Time includes spent on; [x] Data Review and interpretation [x] Patient assessment and monitoring of vital signs [x] Documentation [x] Medication orders and management Subjective Date of service: 06/27/18 Principal diagnosis: Acute Hypoxemic Resp Failure; AIDS / HIV positive; Severe Sepsis due to PNA Interval history: Patient is seen today for: Acute Hypoxemic Respiratory Failure on MVS; AIDS / HIV positive; Severe Sepsis due to Pneumonia; Hyponatremia; Severe metabolic acidosis Seen and examined at bedside; 24hour events reviewed; nursing and respiratory care staff consulted; no adverse overnight events reported to me; remains on MVS; remains on Eliquis 2.5mg bid yesterday re: DVT; nasal packing removed yesterday and no repeat epistaxis; oxygenation is improved Objective Vital Signs - 12hr 06/27/18 06/27/18 06/27/18 03:00 03:15 04:00 Temperature 100.3 F H Pulse Rate 120 H 108 H Pulse Rate [ 128 H Anterior Bilateral Throughout] Pulse Rate [ 114 H From Monitor] Respiratory 34 H Rate Respiratory 32 H Rate [Anterior Bilateral Throughout] Blood Pressure 135/81 135/81 O2 Sat by Pulse 93 91 Oximetry 06/27/18 06/27/18 06/27/18 04:01 05:01 06:00 Temperature Pulse Rate 114 H 123 H 116 H Pulse Rate [ Anterior Bilateral Throughout] Pulse Rate [ From Monitor] Respiratory Rate Respiratory Rate [Anterior Bilateral Throughout] Blood Pressure 144/80 144/83 150/87 O2 Sat by Pulse 94 92 89 Oximetry 06/27/18 06/27/18 06/27/18 07:00 07:39 07:49 Temperature Pulse Rate 115 H 105 H Pulse Rate [ 117 H 118 H Anterior Bilateral Throughout] Pulse Rate [ From Monitor] Respiratory Rate Respiratory 38 H 35 H Rate [Anterior Bilateral Throughout] Blood Pressure 134/81 131/80 O2 Sat by Pulse 93 93 Oximetry 06/27/18 06/27/18 06/27/18 08:00 08:01 09:00 Temperature 99.8 F H Pulse Rate 119 H 116 H 114 H Pulse Rate [ Anterior Bilateral Throughout] Pulse Rate [ 119 H From Monitor] Respiratory 30 H Rate Respiratory Rate [Anterior Bilateral Throughout] Blood Pressure 144/86 151/84 O2 Sat by Pulse 95 90 91 Oximetry 06/27/18 06/27/18 06/27/18 10:00 11:00 11:27 Temperature Pulse Rate 110 H 122 H 118 H Pulse Rate [ Anterior Bilateral Throughout] Pulse Rate [ From Monitor] Respiratory Rate Respiratory Rate [Anterior Bilateral Throughout] Blood Pressure 130/86 131/89 141/82 O2 Sat by Pulse 92 90 94 Oximetry 06/27/18 06/27/18 06/27/18 12:00 13:00 14:02 Temperature 99.4 F Pulse Rate 124 H 124 H 124 H Pulse Rate [ 124 H Anterior Bilateral Throughout] Pulse Rate [ 124 H From Monitor] Respiratory 30 H Rate Respiratory 33 H Rate [Anterior Bilateral Throughout] Blood Pressure 149/88 137/80 142/80 O2 Sat by Pulse 91 90 91 Oximetry Constitutional: appears uncomfortable, other (young HM normocephalic and atraumatic with moderately increased respiratory effort at rest) Eyes: non-icteric ENT: oropharynx moist, other (ETT 23 cm SATISH) Neck: supple, no lymphadenopathy, no JVD, other (no thyromegaly) Effort: mildly labored Ascultation: Bilateral: diminished breath sounds, rhonchi Percussion: Bilateral: not dull Cardiovascular: regular rate and rhythm Gastrointestinal: normoactive bowel sounds, soft, non-tender, non-distended Integumentary: rash Extremities: no cyanosis, pink and warm, pulses normal, no ischemia or petechiae, edema (trace) Neurologic: non-focal exam (grossly), pupils equal and round, motor strength normal and, unable to assess Psychiatric: other (unable to assess) CBC and BMP: 07/04/18 Unknown 07/04/18 Unknown ABG, PT/INR, D-dimer: ABG POC ABG pH 7.266 (7.35-7.45) L 06/27/18 04:05 POC ABG pCO2 62.8 (35-45) H 06/27/18 04:05 POC ABG pO2 83 (80-105) 06/27/18 04:05 POC ABG HCO3 28.6 06/27/18 04:05 POC ABG Total CO2 30 06/27/18 04:05 POC ABG O2 Sat 94 06/27/18 04:05 PT/INR, D-dimer PT 15.6 Sec. (12.2-14.9) H 06/24/18 Unknown INR 1.17 (0.87-1.13) H 06/24/18 Unknown D-Dimer 8449.09 ng/mlDDU (0-234) H 06/19/18 Unknown Abnormal lab findings: Abnormal Labs 06/19/18 06/19/18 06/19/18 03:31 07:11 07:42 WBC RBC Hgb Hct MCV RDW Seg Neuts % (Manual) Lymphocytes % (Manual) Seg Neutrophils # Man Abs Lymphs (Manual) 409 L Lymphocytes # (Manual) PT INR D-Dimer POC ABG pH 6.974 L POC ABG pCO2 22.0 L 83.4 H POC ABG pO2 28 L 122 H Sodium Potassium Chloride Carbon Dioxide BUN Creatinine Glucose POC Glucose Calcium AST ALT C-Reactive Protein Total Protein Albumin Triglycerides Ur Specific [place] Urine WBC (Auto) Urine Creatinine Urine Total Protein Lymph Enumerat CD4/CD8 0.05 L % CD3 Cells 45 L Absolute CD3 Count 185 L % CD4 Cells 2 L Absolute CD4 Count 10 L % CD8 Cells 43 H Absolute CD8 Count 167 L Absolute CD19 Count 79 L HIV DNA Qual (PCR) HIV-1 RNA PCR copies/ml HIV-1 RNA (PCR) log Miscellaneous Test 06/19/18 06/19/18 06/19/18 08:07 08:16 09:20 WBC RBC Hgb Hct MCV RDW Seg Neuts % (Manual) Lymphocytes % (Manual) Seg Neutrophils # Man Abs Lymphs (Manual) Lymphocytes # (Manual) PT INR D-Dimer POC ABG pH 6.996 L POC ABG pCO2 82.4 H POC ABG pO2 Sodium Potassium Chloride Carbon Dioxide BUN Creatinine Glucose POC Glucose Calcium AST ALT C-Reactive Protein Total Protein Albumin Triglycerides Ur Specific [place] 1.060 H Urine WBC (Auto) 8.0 H Urine Creatinine Urine Total Protein Lymph Enumerat CD4/CD8 % CD3 Cells Absolute CD3 Count % CD4 Cells Absolute CD4 Count % CD8 Cells Absolute CD8 Count Absolute CD19 Count HIV DNA Qual (PCR) Detected H HIV-1 RNA PCR copies/ml HIV-1 RNA (PCR) log Miscellaneous Test 06/19/18 06/19/18 06/19/18 09:49 11:15 15:16 WBC RBC Hgb Hct MCV RDW Seg Neuts % (Manual) Lymphocytes % (Manual) Seg Neutrophils # Man Abs Lymphs (Manual) Lymphocytes # (Manual) PT INR D-Dimer POC ABG pH 7.198 L 7.206 L POC ABG pCO2 POC ABG pO2 75 L Sodium Potassium Chloride Carbon Dioxide BUN Creatinine Glucose POC Glucose Calcium AST ALT C-Reactive Protein Total Protein Albumin Triglycerides Ur Specific [place] Urine WBC (Auto) Urine Creatinine Urine Total Protein Lymph Enumerat CD4/CD8 % CD3 Cells Absolute CD3 Count % CD4 Cells Absolute CD4 Count % CD8 Cells Absolute CD8 Count Absolute CD19 Count HIV DNA Qual (PCR) HIV-1 RNA PCR copies/ml [id number] H HIV-1 RNA (PCR) log 6.11 H Miscellaneous Test 06/19/18 06/19/18 06/19/18 18:54 Unknown Unknown WBC 12.9 H RBC Hgb Hct MCV RDW Seg Neuts % (Manual) Lymphocytes % (Manual) 5.0 L Seg Neutrophils # Man Abs Lymphs (Manual) Lymphocytes # (Manual) 0.6 L PT 15.9 H INR 1.19 H D-Dimer 8449.09 H POC ABG pH POC ABG pCO2 POC ABG pO2 Sodium Potassium Chloride Carbon Dioxide BUN Creatinine Glucose POC Glucose 196 H Calcium AST ALT C-Reactive Protein Total Protein Albumin Triglycerides Ur Specific [place] Urine WBC (Auto) Urine Creatinine Urine Total Protein Lymph Enumerat CD4/CD8 % CD3 Cells Absolute CD3 Count % CD4 Cells Absolute CD4 Count % CD8 Cells Absolute CD8 Count Absolute CD19 Count HIV DNA Qual (PCR) HIV-1 RNA PCR copies/ml HIV-1 RNA (PCR) log Miscellaneous Test 06/19/18 06/19/18 06/20/18 Unknown Unknown 04:33 WBC RBC Hgb Hct MCV RDW Seg Neuts % (Manual) Lymphocytes % (Manual) Seg Neutrophils # Man Abs Lymphs (Manual) Lymphocytes # (Manual) PT INR D-Dimer POC ABG pH 7.249 L POC ABG pCO2 POC ABG pO2 118 H Sodium 129 L Potassium Chloride 90.7 L Carbon Dioxide 17 L BUN Creatinine 0.6 L Glucose 199 H POC Glucose Calcium 8.1 L AST 53 H ALT C-Reactive Protein Total Protein 6.0 L Albumin 2.8 L Triglycerides Ur Specific [place] Urine WBC (Auto) Urine Creatinine Urine Total Protein Lymph Enumerat CD4/CD8 % CD3 Cells Absolute CD3 Count % CD4 Cells Absolute CD4 Count % CD8 Cells Absolute CD8 Count Absolute CD19 Count HIV DNA Qual (PCR) HIV-1 RNA PCR copies/ml HIV-1 RNA (PCR) log Miscellaneous Test 06/20/18 06/20/18 06/20/18 08:13 08:13 12:59 WBC 11.8 H RBC 3.25 L Hgb 9.8 L D Hct 30.4 L D MCV RDW Seg Neuts % (Manual) 99.0 H Lymphocytes % (Manual) 1.0 L Seg Neutrophils # Man 11.7 H Abs Lymphs (Manual) Lymphocytes # (Manual) 0.1 L PT INR D-Dimer POC ABG pH POC ABG pCO2 POC ABG pO2 Sodium Potassium Chloride Carbon Dioxide 19 L BUN Creatinine Glucose 223 H POC Glucose 174 H Calcium 6.6 L D AST 1240 H ALT 836 H C-Reactive Protein Total Protein 4.9 L Albumin 2.1 L Triglycerides Ur Specific [place] Urine WBC (Auto) Urine Creatinine Urine Total Protein Lymph Enumerat CD4/CD8 % CD3 Cells Absolute CD3 Count % CD4 Cells Absolute CD4 Count % CD8 Cells Absolute CD8 Count Absolute CD19 Count HIV DNA Qual (PCR) HIV-1 RNA PCR copies/ml HIV-1 RNA (PCR) log Miscellaneous Test 06/20/18 06/20/18 06/21/18 17:42 23:44 04:08 WBC RBC Hgb Hct MCV RDW Seg Neuts % (Manual) Lymphocytes % (Manual) Seg Neutrophils # Man Abs Lymphs (Manual) Lymphocytes # (Manual) PT INR D-Dimer POC ABG pH 7.309 L POC ABG pCO2 POC ABG pO2 Sodium Potassium Chloride Carbon Dioxide BUN Creatinine Glucose POC Glucose 177 H 195 H Calcium AST ALT C-Reactive Protein Total Protein Albumin Triglycerides Ur Specific [place] Urine WBC (Auto) Urine Creatinine Urine Total Protein Lymph Enumerat CD4/CD8 % CD3 Cells Absolute CD3 Count % CD4 Cells Absolute CD4 Count % CD8 Cells Absolute CD8 Count Absolute CD19 Count HIV DNA Qual (PCR) HIV-1 RNA PCR copies/ml HIV-1 RNA (PCR) log Miscellaneous Test 06/21/18 06/21/18 06/21/18 04:19 04:19 05:27 WBC 13.8 H RBC 3.02 L Hgb 9.2 L Hct 28.0 L MCV RDW Seg Neuts % (Manual) Lymphocytes % (Manual) Seg Neutrophils # Man Abs Lymphs (Manual) Lymphocytes # (Manual) PT INR D-Dimer POC ABG pH POC ABG pCO2 POC ABG pO2 Sodium 135 L Potassium Chloride Carbon Dioxide 21 L BUN Creatinine 0.7 L Glucose 161 H POC Glucose 187 H Calcium 7.2 L AST 390 H ALT 622 H C-Reactive Protein Total Protein 5.3 L Albumin 2.4 L Triglycerides Ur Specific [place] Urine WBC (Auto) Urine Creatinine Urine Total Protein Lymph Enumerat CD4/CD8 % CD3 Cells Absolute CD3 Count % CD4 Cells Absolute CD4 Count % CD8 Cells Absolute CD8 Count Absolute CD19 Count HIV DNA Qual (PCR) HIV-1 RNA PCR copies/ml HIV-1 RNA (PCR) log Miscellaneous Test 06/21/18 06/21/18 06/21/18 11:33 12:32 17:45 WBC RBC Hgb Hct MCV RDW Seg Neuts % (Manual) Lymphocytes % (Manual) Seg Neutrophils # Man Abs Lymphs (Manual) Lymphocytes # (Manual) PT INR D-Dimer POC ABG pH POC ABG pCO2 POC ABG pO2 Sodium Potassium Chloride Carbon Dioxide BUN Creatinine Glucose POC Glucose 147 H 172 H Calcium AST ALT C-Reactive Protein Total Protein Albumin Triglycerides Ur Specific [place] Urine WBC (Auto) Urine Creatinine Urine Total Protein Lymph Enumerat CD4/CD8 % CD3 Cells Absolute CD3 Count % CD4 Cells Absolute CD4 Count % CD8 Cells Absolute CD8 Count Absolute CD19 Count HIV DNA Qual (PCR) HIV-1 RNA PCR copies/ml HIV-1 RNA (PCR) log Miscellaneous Test see below H 06/21/18 06/22/18 06/22/18 23:25 04:47 04:47 WBC 11.5 H RBC 2.93 L Hgb 9.0 L Hct 26.5 L MCV RDW Seg Neuts % (Manual) Lymphocytes % (Manual) Seg Neutrophils # Man Abs Lymphs (Manual) Lymphocytes # (Manual) PT INR D-Dimer POC ABG pH POC ABG pCO2 POC ABG pO2 Sodium Potassium Chloride Carbon Dioxide BUN 22 H Creatinine Glucose 201 H POC Glucose 152 H Calcium 7.8 L AST 129 H ALT 416 H C-Reactive Protein Total Protein 5.3 L Albumin 2.4 L Triglycerides Ur Specific [place] Urine WBC (Auto) Urine Creatinine Urine Total Protein Lymph Enumerat CD4/CD8 % CD3 Cells Absolute CD3 Count % CD4 Cells Absolute CD4 Count % CD8 Cells Absolute CD8 Count Absolute CD19 Count HIV DNA Qual (PCR) HIV-1 RNA PCR copies/ml HIV-1 RNA (PCR) log Miscellaneous Test 06/22/18 06/22/18 06/22/18 05:23 11:43 17:45 WBC RBC Hgb Hct MCV RDW Seg Neuts % (Manual) Lymphocytes % (Manual) Seg Neutrophils # Man Abs Lymphs (Manual) Lymphocytes # (Manual) PT INR D-Dimer POC ABG pH POC ABG pCO2 POC ABG pO2 Sodium Potassium Chloride Carbon Dioxide BUN Creatinine Glucose POC Glucose 170 H 175 H 176 H Calcium AST ALT C-Reactive Protein Total Protein Albumin Triglycerides Ur Specific [place] Urine WBC (Auto) Urine Creatinine Urine Total Protein Lymph Enumerat CD4/CD8 % CD3 Cells Absolute CD3 Count % CD4 Cells Absolute CD4 Count % CD8 Cells Absolute CD8 Count Absolute CD19 Count HIV DNA Qual (PCR) HIV-1 RNA PCR copies/ml HIV-1 RNA (PCR) log Miscellaneous Test 06/23/18 06/23/18 06/23/18 00:24 05:06 05:11 WBC 11.2 H RBC 2.78 L Hgb 8.6 L Hct 25.3 L MCV RDW Seg Neuts % (Manual) Lymphocytes % (Manual) Seg Neutrophils # Man Abs Lymphs (Manual) Lymphocytes # (Manual) PT INR D-Dimer POC ABG pH POC ABG pCO2 POC ABG pO2 Sodium Potassium Chloride Carbon Dioxide BUN Creatinine Glucose POC Glucose 178 H 182 H Calcium AST ALT C-Reactive Protein Total Protein Albumin Triglycerides Ur Specific [place] Urine WBC (Auto) Urine Creatinine Urine Total Protein Lymph Enumerat CD4/CD8 % CD3 Cells Absolute CD3 Count % CD4 Cells Absolute CD4 Count % CD8 Cells Absolute CD8 Count Absolute CD19 Count HIV DNA Qual (PCR) HIV-1 RNA PCR copies/ml HIV-1 RNA (PCR) log Miscellaneous Test 06/23/18 06/23/18 06/23/18 05:11 05:51 12:21 WBC RBC Hgb Hct MCV RDW Seg Neuts % (Manual) Lymphocytes % (Manual) Seg Neutrophils # Man Abs Lymphs (Manual) Lymphocytes # (Manual) PT INR D-Dimer POC ABG pH POC ABG pCO2 POC ABG pO2 69 L Sodium Potassium Chloride Carbon Dioxide BUN 34 H Creatinine 1.7 H D Glucose 191 H POC Glucose 181 H Calcium 7.5 L AST 63 H ALT 297 H C-Reactive Protein Total Protein 5.3 L Albumin 2.4 L Triglycerides Ur Specific [place] Urine WBC (Auto) Urine Creatinine Urine Total Protein Lymph Enumerat CD4/CD8 % CD3 Cells Absolute CD3 Count % CD4 Cells Absolute CD4 Count % CD8 Cells Absolute CD8 Count Absolute CD19 Count HIV DNA Qual (PCR) HIV-1 RNA PCR copies/ml HIV-1 RNA (PCR) log Miscellaneous Test 06/23/18 06/23/18 06/23/18 13:57 17:00 18:40 WBC RBC Hgb Hct MCV RDW Seg Neuts % (Manual) Lymphocytes % (Manual) Seg Neutrophils # Man Abs Lymphs (Manual) Lymphocytes # (Manual) PT INR D-Dimer POC ABG pH POC ABG pCO2 POC ABG pO2 Sodium Potassium Chloride Carbon Dioxide BUN 38 H Creatinine 1.8 H Glucose POC Glucose 196 H Calcium AST ALT C-Reactive Protein 1.60 H Total Protein Albumin Triglycerides Ur Specific [place] Urine WBC (Auto) Urine Creatinine Urine Total Protein Lymph Enumerat CD4/CD8 % CD3 Cells Absolute CD3 Count % CD4 Cells Absolute CD4 Count % CD8 Cells Absolute CD8 Count Absolute CD19 Count HIV DNA Qual (PCR) HIV-1 RNA PCR copies/ml HIV-1 RNA (PCR) log Miscellaneous Test 06/23/18 06/23/18 06/24/18 21:16 23:22 04:12 WBC RBC 2.89 L Hgb 8.8 L Hct 26.9 L MCV RDW Seg Neuts % (Manual) Lymphocytes % (Manual) Seg Neutrophils # Man Abs Lymphs (Manual) Lymphocytes # (Manual) PT INR D-Dimer POC ABG pH 7.311 L POC ABG pCO2 47.4 H POC ABG pO2 Sodium Potassium Chloride Carbon Dioxide BUN Creatinine Glucose POC Glucose 165 H Calcium AST ALT C-Reactive Protein Total Protein Albumin Triglycerides Ur Specific [place] Urine WBC (Auto) Urine Creatinine Urine Total Protein Lymph Enumerat CD4/CD8 % CD3 Cells Absolute CD3 Count % CD4 Cells Absolute CD4 Count % CD8 Cells Absolute CD8 Count Absolute CD19 Count HIV DNA Qual (PCR) HIV-1 RNA PCR copies/ml HIV-1 RNA (PCR) log Miscellaneous Test 06/24/18 06/24/18 06/24/18 04:12 04:46 05:24 WBC RBC Hgb Hct MCV RDW Seg Neuts % (Manual) Lymphocytes % (Manual) Seg Neutrophils # Man Abs Lymphs (Manual) Lymphocytes # (Manual) PT INR D-Dimer POC ABG pH 7.250 L POC ABG pCO2 55.8 H POC ABG pO2 Sodium Potassium 5.4 H Chloride Carbon Dioxide BUN 44 H Creatinine 2.2 H Glucose 206 H POC Glucose 183 H Calcium 7.5 L AST ALT C-Reactive Protein Total Protein Albumin Triglycerides Ur Specific [place] Urine WBC (Auto) Urine Creatinine Urine Total Protein Lymph Enumerat CD4/CD8 % CD3 Cells Absolute CD3 Count % CD4 Cells Absolute CD4 Count % CD8 Cells Absolute CD8 Count Absolute CD19 Count HIV DNA Qual (PCR) HIV-1 RNA PCR copies/ml HIV-1 RNA (PCR) log Miscellaneous Test 06/24/18 06/24/18 06/24/18 11:14 16:40 17:16 WBC RBC Hgb Hct MCV RDW Seg Neuts % (Manual) Lymphocytes % (Manual) Seg Neutrophils # Man Abs Lymphs (Manual) Lymphocytes # (Manual) PT INR D-Dimer POC ABG pH 7.067 L POC ABG pCO2 91.7 H POC ABG pO2 134 H Sodium Potassium Chloride Carbon Dioxide BUN Creatinine Glucose POC Glucose 151 H 195 H Calcium AST ALT C-Reactive Protein Total Protein Albumin Triglycerides Ur Specific [place] Urine WBC (Auto) Urine Creatinine Urine Total Protein Lymph Enumerat CD4/CD8 % CD3 Cells Absolute CD3 Count % CD4 Cells Absolute CD4 Count % CD8 Cells Absolute CD8 Count Absolute CD19 Count HIV DNA Qual (PCR) HIV-1 RNA PCR copies/ml HIV-1 RNA (PCR) log Miscellaneous Test 06/24/18 06/24/18 06/24/18 18:03 22:45 22:45 WBC RBC Hgb Hct MCV RDW Seg Neuts % (Manual) Lymphocytes % (Manual) Seg Neutrophils # Man Abs Lymphs (Manual) Lymphocytes # (Manual) PT INR D-Dimer POC ABG pH 7.234 L POC ABG pCO2 59.9 H POC ABG pO2 121 H Sodium Potassium Chloride Carbon Dioxide BUN Creatinine Glucose POC Glucose Calcium AST ALT C-Reactive Protein Total Protein Albumin Triglycerides Ur Specific [place] Urine WBC (Auto) 9.0 H Urine Creatinine 47.2 H Urine Total Protein 25 H Lymph Enumerat CD4/CD8 % CD3 Cells Absolute CD3 Count % CD4 Cells Absolute CD4 Count % CD8 Cells Absolute CD8 Count Absolute CD19 Count HIV DNA Qual (PCR) HIV-1 RNA PCR copies/ml HIV-1 RNA (PCR) log Miscellaneous Test 06/24/18 06/24/18 06/25/18 Unknown 23:59 04:36 WBC RBC Hgb Hct MCV RDW Seg Neuts % (Manual) Lymphocytes % (Manual) Seg Neutrophils # Man Abs Lymphs (Manual) Lymphocytes # (Manual) PT 15.6 H INR 1.17 H D-Dimer POC ABG pH 7.200 L POC ABG pCO2 65.3 H POC ABG pO2 Sodium Potassium Chloride Carbon Dioxide BUN Creatinine Glucose POC Glucose 233 H Calcium AST ALT C-Reactive Protein Total Protein Albumin Triglycerides Ur Specific [place] Urine WBC (Auto) Urine Creatinine Urine Total Protein Lymph Enumerat CD4/CD8 % CD3 Cells Absolute CD3 Count % CD4 Cells Absolute CD4 Count % CD8 Cells Absolute CD8 Count Absolute CD19 Count HIV DNA Qual (PCR) HIV-1 RNA PCR copies/ml HIV-1 RNA (PCR) log Miscellaneous Test 06/25/18 06/25/18 06/25/18 05:29 11:12 11:40 WBC RBC 2.67 L Hgb 8.5 L Hct 25.6 L MCV 96 H RDW 16.0 H Seg Neuts % (Manual) Lymphocytes % (Manual) Seg Neutrophils # Man Abs Lymphs (Manual) Lymphocytes # (Manual) PT INR D-Dimer POC ABG pH POC ABG pCO2 POC ABG pO2 Sodium Potassium Chloride Carbon Dioxide BUN Creatinine Glucose POC Glucose 212 H 244 H Calcium AST ALT C-Reactive Protein Total Protein Albumin Triglycerides Ur Specific [place] Urine WBC (Auto) Urine Creatinine Urine Total Protein Lymph Enumerat CD4/CD8 % CD3 Cells Absolute CD3 Count % CD4 Cells Absolute CD4 Count % CD8 Cells Absolute CD8 Count Absolute CD19 Count HIV DNA Qual (PCR) HIV-1 RNA PCR copies/ml HIV-1 RNA (PCR) log Miscellaneous Test 06/25/18 06/25/18 06/25/18 11:40 17:18 18:08 WBC RBC Hgb Hct MCV RDW Seg Neuts % (Manual) Lymphocytes % (Manual) Seg Neutrophils # Man Abs Lymphs (Manual) Lymphocytes # (Manual) PT INR D-Dimer POC ABG pH 7.206 L POC ABG pCO2 68.1 H POC ABG pO2 Sodium Potassium 5.8 H Chloride Carbon Dioxide BUN 48 H Creatinine 2.1 H Glucose 293 H POC Glucose 264 H Calcium 7.5 L AST ALT C-Reactive Protein Total Protein Albumin Triglycerides Ur Specific [place] Urine WBC (Auto) Urine Creatinine Urine Total Protein Lymph Enumerat CD4/CD8 % CD3 Cells Absolute CD3 Count % CD4 Cells Absolute CD4 Count % CD8 Cells Absolute CD8 Count Absolute CD19 Count HIV DNA Qual (PCR) HIV-1 RNA PCR copies/ml HIV-1 RNA (PCR) log Miscellaneous Test 06/25/18 06/25/18 06/26/18 21:20 23:59 05:10 WBC RBC Hgb Hct MCV RDW Seg Neuts % (Manual) Lymphocytes % (Manual) Seg Neutrophils # Man Abs Lymphs (Manual) Lymphocytes # (Manual) PT INR D-Dimer POC ABG pH 7.220 L POC ABG pCO2 65.0 H POC ABG pO2 71 L Sodium Potassium Chloride Carbon Dioxide BUN Creatinine Glucose POC Glucose 231 H 259 H Calcium AST ALT C-Reactive Protein Total Protein Albumin Triglycerides Ur Specific [place] Urine WBC (Auto) Urine Creatinine Urine Total Protein Lymph Enumerat CD4/CD8 % CD3 Cells Absolute CD3 Count % CD4 Cells Absolute CD4 Count % CD8 Cells Absolute CD8 Count Absolute CD19 Count HIV DNA Qual (PCR) HIV-1 RNA PCR copies/ml HIV-1 RNA (PCR) log Miscellaneous Test 06/26/18 06/26/18 06/26/18 05:29 07:25 07:25 WBC 12.0 H RBC 2.69 L Hgb 8.2 L Hct 25.5 L MCV 95 H RDW 15.7 H Seg Neuts % (Manual) Lymphocytes % (Manual) Seg Neutrophils # Man Abs Lymphs (Manual) Lymphocytes # (Manual) PT INR D-Dimer POC ABG pH 7.240 L POC ABG pCO2 67.6 H POC ABG pO2 106 H Sodium Potassium 5.2 H Chloride Carbon Dioxide BUN 58 H Creatinine 1.9 H Glucose 219 H POC Glucose Calcium 7.9 L AST ALT C-Reactive Protein Total Protein Albumin Triglycerides Ur Specific [place] Urine WBC (Auto) Urine Creatinine Urine Total Protein Lymph Enumerat CD4/CD8 % CD3 Cells Absolute CD3 Count % CD4 Cells Absolute CD4 Count % CD8 Cells Absolute CD8 Count Absolute CD19 Count HIV DNA Qual (PCR) HIV-1 RNA PCR copies/ml HIV-1 RNA (PCR) log Miscellaneous Test 06/26/18 06/26/18 06/26/18 07:25 12:49 17:42 WBC RBC Hgb Hct MCV RDW Seg Neuts % (Manual) Lymphocytes % (Manual) Seg Neutrophils # Man Abs Lymphs (Manual) Lymphocytes # (Manual) PT INR D-Dimer POC ABG pH 7.178 L POC ABG pCO2 73.6 H POC ABG pO2 77 L Sodium Potassium Chloride Carbon Dioxide BUN Creatinine Glucose POC Glucose 276 H Calcium AST ALT C-Reactive Protein Total Protein Albumin Triglycerides 174 H Ur Specific [place] Urine WBC (Auto) Urine Creatinine Urine Total Protein Lymph Enumerat CD4/CD8 % CD3 Cells Absolute CD3 Count % CD4 Cells Absolute CD4 Count % CD8 Cells Absolute CD8 Count Absolute CD19 Count HIV DNA Qual (PCR) HIV-1 RNA PCR copies/ml HIV-1 RNA (PCR) log Miscellaneous Test 06/26/18 06/26/18 06/26/18 18:25 21:24 23:22 WBC RBC Hgb Hct MCV RDW Seg Neuts % (Manual) Lymphocytes % (Manual) Seg Neutrophils # Man Abs Lymphs (Manual) Lymphocytes # (Manual) PT INR D-Dimer POC ABG pH 7.152 L POC ABG pCO2 80.6 H POC ABG pO2 Sodium Potassium Chloride Carbon Dioxide BUN Creatinine Glucose POC Glucose 304 H 282 H Calcium AST ALT C-Reactive Protein Total Protein Albumin Triglycerides Ur Specific [place] Urine WBC (Auto) Urine Creatinine Urine Total Protein Lymph Enumerat CD4/CD8 % CD3 Cells Absolute CD3 Count % CD4 Cells Absolute CD4 Count % CD8 Cells Absolute CD8 Count Absolute CD19 Count HIV DNA Qual (PCR) HIV-1 RNA PCR copies/ml HIV-1 RNA (PCR) log Miscellaneous Test 06/27/18 06/27/18 06/27/18 04:05 05:15 05:15 WBC RBC 2.41 L Hgb 7.6 L Hct 22.4 L MCV RDW Seg Neuts % (Manual) Lymphocytes % (Manual) Seg Neutrophils # Man Abs Lymphs (Manual) Lymphocytes # (Manual) PT INR D-Dimer POC ABG pH 7.266 L POC ABG pCO2 62.8 H POC ABG pO2 Sodium Potassium 5.5 H Chloride Carbon Dioxide BUN 73 H Creatinine 2.1 H Glucose 211 H POC Glucose Calcium 7.7 L AST ALT C-Reactive Protein Total Protein Albumin Triglycerides Ur Specific [place] Urine WBC (Auto) Urine Creatinine Urine Total Protein Lymph Enumerat CD4/CD8 % CD3 Cells Absolute CD3 Count % CD4 Cells Absolute CD4 Count % CD8 Cells Absolute CD8 Count Absolute CD19 Count HIV DNA Qual (PCR) HIV-1 RNA PCR copies/ml HIV-1 RNA (PCR) log Miscellaneous Test 06/27/18 06/27/18 05:52 13:10 WBC RBC Hgb Hct MCV RDW Seg Neuts % (Manual) Lymphocytes % (Manual) Seg Neutrophils # Man Abs Lymphs (Manual) Lymphocytes # (Manual) PT INR D-Dimer POC ABG pH POC ABG pCO2 POC ABG pO2 Sodium Potassium Chloride Carbon Dioxide BUN Creatinine Glucose POC Glucose 198 H 238 H Calcium AST ALT C-Reactive Protein Total Protein Albumin Triglycerides Ur Specific Partridge Urine WBC (Auto) Urine Creatinine Urine Total Protein Lymph Enumerat CD4/CD8 % CD3 Cells Absolute CD3 Count % CD4 Cells Absolute CD4 Count % CD8 Cells Absolute CD8 Count Absolute CD19 Count HIV DNA Qual (PCR) HIV-1 RNA PCR copies/ml HIV-1 RNA (PCR) log Miscellaneous Test Allied health notes reviewed: nursing
--- NOTE | 2018-06-27 14:38 | Operative Report ---
PULMONARY PROGRESS NOTE PROCEDURE: Fiberoptic bronchoscopy with washings. INDICATIONS: Bilateral pneumonia causing severe ARDS. CONSENT: This was a 2-physician consent. We were unable to get family. The patient's family do not live in the [place] and could not be reached. COMPLICATIONS: No immediate procedural complications. SEDATION: The patient was on the mechanical ventilator on a propofol and fentanyl drip. DESCRIPTION OF PROCEDURE: As follows, after premedication, fiberoptic bronchoscope was passed through the Bodai valve and advanced into the distal trachea throughout the whole evaluation of the endobronchial tree. There were no significant endobronchial lesions that were suspicious for example Kaposi's sarcoma or other invasive fungal infection. The basilar segments of both lobes had some area of endobronchial inflammation that could have been due to the primary pneumonic process. A fiberoptic bronchoscope was advanced into the airway and from the basilar segments of the left lower lobe and the right lower lobe endobronchial washings were taken. The patient was on 100% oxygen and like I said in ARDS, procedure had to be hurried. I got good samples from the both basilar segments and I tried as best to examine the endobronchial tree. No gross endobronchial lesions. Fiberoptic bronchoscope was then withdrawn through the Bodai valve. The patient tolerated the procedure well. No immediate procedural complications. RECOMMENDATIONS: Follow up on the cultures and cytology of the endobronchial washings taken, which would include AFB cultures and smears, fungal cultures and smears as well as routine respiratory cultures. JOB# [id number] TING/LASHAUN
--- NOTE | 2018-06-27 16:56 | Progress Note ---
Assessment and Plan Cultures: 06/19/2018 blood culture: no growth 06/19/2018 tracheal aspirate: usual resp david/ Rothia mucilaginosa 06/19/2018 fungal blood culture: no growth 06/20/2018 Serum CrAg: negative Cytology PJP stain negative GMS stain showed septated fungal hyphae with acute angle branching and yeast forms c/w Aspergillus, Fusarium, Scedosporium and other Dematiaceous fungi. DFA showed rare PJP A/P: 32/M with: #1 Bilateral pneumonia: Extensive bilateral ground glass opacities and pneumonia with severe hypoxia. Unclear etiology ? PJP versus invasive fungal. 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 Lung cytology GMS stain showed septated fungal hyphae with acute angle branching and yeast forms c/w Aspergillus, Fusarium, Scedosporium and other Dematiaceous fungi. 06/19/2018 tracheal aspirate showed usual resp david/ Rothia mucilaginosa. 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 patient has been on bactrim IV for 5 days and IV voriconazole for 4 days witouht any improvement on vent setting still at FiO2 70% p12. - S/P bronch/BAL - pending - s/p voriconazole x 4 days - no improvement, stopped on 06/25 - on amphothericin started on 06/25 #2 Acute respiratory failure: Requiring mechanical ventilation.Improving FIo2 70% -->60--> 50 % p 15 -->12 #3 HIV, likely AIDS:CD4=10 / VL 1,300,000 copies #4 Sepsis: Likely secondary to above. #5 JENNIFER: better today, all renally adjusted #6 Sepsis: still tachycardia, leukocytosis resolved and new fever improving; likely from above #7 Epistaxis on 06/24/2018 s/p packing Recs: f/u BAL/bronch f/u serum BAL-Galactomannan antigen, [id number] assay, histoplasma urine ag and cocci serology continue renally adjusted liposomal Amphothericin D3 started in light of worsening oxygenation continue bactrim renally adjusted D7 continue vancomycin renally dosed to cover Rothia D4 continue azithromycin 1200 mg qweek for MAC prophylaxis Continue IV steroids F/u CMV PCR f/u F/u genotype, CMV When stable will check CT chest and sinus Overall prognosis guarded Will follow Keke Manzo MD Infectious Diseases [employer] 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 Tmax 99.9. ROS unable to obtain Objective - Exam Narrative Exam: General appearance: sedated on the vent FIO2 60% p15 Eyes: anicteric sclerae, moist conjunctivae; no lid-lag; PERRLA +conjunctivae edema shruthi HENT: Atraumatic; oropharynx +ETT. Neck: Trachea midline; supple, no thyromegaly or lymphadenopathy Lungs: shruthi rhonchi CV: tachycardic Abdomen: Soft, non-tender; no masses or hepatosplenomegaly Extremities: +shruthi arm edema / leg edema Skin: Normal temperature, turgor and texture; no rash, ulcers or subcutaneous nodules Psych: sedated. Neuro: sedated Rust Right IJ TLC - Constitutional Vitals: Vital Signs Temp Pulse Resp BP Pulse Ox 99.9 F H 128 H 25 H 133/76 91 06/27/18 16:00 06/27/18 16:00 06/27/18 16:00 06/27/18 16:00 06/27/18 16:00 Temperature -Last 24 Hours Temperature 99.9 F Temperature 99.4 F Temperature 99.8 F Temperature 100.3 F Temperature 99.6 F Temperature 99.4 F - Labs CBC & Chem 7: 06/27/18 05:15 06/27/18 05:15 Labs: Abnormal lab results 06/26/18 06/26/18 06/26/18 Range/Units 17:42 18:25 21:24 RBC (3.65-5.03) M/mm3 Hgb (11.8-15.2) gm/dl Hct (35.5-45.6) % POC ABG pH 7.178 L 7.152 L (7.35-7.45) POC ABG pCO2 73.6 H 80.6 H (35-45) POC ABG pO2 77 L (80-105) Potassium (3.6-5.0) mmol/L BUN (9-20) mg/dL Creatinine (0.8-1.5) mg/dL Glucose (75-100) mg/dL POC Glucose 304 H (70-105) Calcium (8.4-10.2) mg/dL 06/26/18 06/27/18 06/27/18 Range/Units 23:22 04:05 05:15 RBC (3.65-5.03) M/mm3 Hgb (11.8-15.2) gm/dl Hct (35.5-45.6) % POC ABG pH 7.266 L (7.35-7.45) POC ABG pCO2 62.8 H (35-45) POC ABG pO2 (80-105) Potassium 5.5 H (3.6-5.0) mmol/L BUN 73 H (9-20) mg/dL Creatinine 2.1 H (0.8-1.5) mg/dL Glucose 211 H (75-100) mg/dL POC Glucose 282 H (70-105) Calcium 7.7 L (8.4-10.2) mg/dL 06/27/18 06/27/18 06/27/18 Range/Units 05:15 05:52 13:10 RBC 2.41 L (3.65-5.03) M/mm3 Hgb 7.6 L (11.8-15.2) gm/dl Hct 22.4 L (35.5-45.6) % POC ABG pH (7.35-7.45) POC ABG pCO2 (35-45) POC ABG pO2 (80-105) Potassium (3.6-5.0) mmol/L BUN (9-20) mg/dL Creatinine (0.8-1.5) mg/dL Glucose (75-100) mg/dL POC Glucose 198 H 238 H (70-105) Calcium (8.4-10.2) mg/dL 06/27/18 Range/Units 16:12 RBC (3.65-5.03) M/mm3 Hgb (11.8-15.2) gm/dl Hct (35.5-45.6) % POC ABG pH (7.35-7.45) POC ABG pCO2 (35-45) POC ABG pO2 (80-105) Potassium (3.6-5.0) mmol/L BUN (9-20) mg/dL Creatinine (0.8-1.5) mg/dL Glucose (75-100) mg/dL POC Glucose 174 H (70-105) Calcium (8.4-10.2) mg/dL
[2018-06-27] MEDS: LOPRESSOR IV SCH (17:49)
[2018-06-28] MEDS: LOPRESSOR IV SCH ×4 (00:40→18:38)
[2018-06-28] MEDS: DIPRIVAN 10 MG/ML 1,000 MG/100 ML BOTTLE IV SCH ×4 (00:49→19:01)
[2018-06-28] MEDS: fentaNYL DRIP Premix 2,000 MCG/100 ML BAG IV SCH ×3 (00:50→20:50)
[2018-06-28] MEDS: HumaLOG SUB-Q SCH ×4 (00:51→18:37)
[2018-06-28] MEDS: DUONEB *Not for PRN Use IH SCH ×4 (02:12→20:30)
[2018-06-28 05:33] LABS: Calcium 8.3 mg/dL (8.4-10.2)
--- NOTE | 2018-06-28 07:44 | Progress Note ---
Assessment and Plan Cultures: 06/19/2018 blood culture: no growth 06/19/2018 tracheal aspirate: usual resp david/ Rothia mucilaginosa 06/19/2018 fungal blood culture: no growth 06/20/2018 Serum CrAg: negative Cytology PJP stain negative GMS stain showed septated fungal hyphae with acute angle branching and yeast forms c/w Aspergillus, Fusarium, Scedosporium and other Dematiaceous fungi. DFA showed rare PJP CMV DNA PCR 06/19/2018 13,166 BAL 06/25/2018 Tigist albicans A/P: 32/M with: #1 Bilateral pneumonia: Extensive bilateral ground glass opacities and pneumonia with severe hypoxia. Unclear etiology ? PJP versus invasive fungal versus disseminated CMV. 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 Lung cytology GMS stain showed septated fungal hyphae with acute angle branching and yeast forms c/w Aspergillus, Fusarium, Scedosporium and other Dematiaceous fungi. 06/19/2018 tracheal aspirate showed usual resp david/ Rothia mucilaginosa. 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 patient has been on bactrim IV for 5 days and IV voriconazole for 4 days witouht any improvement on vent setting still at FiO2 70% p12. - S/P bronch/BAL - pending - s/p voriconazole x 4 days - no improvement, stopped on 06/25 - on amphothericin started on 06/25 - Serum CMV DNA PCR 06/19/2018 13,166 - BAL 06/25/2018 Tigist albicans likely a colonizer #2 Acute respiratory failure: Requiring mechanical ventilation.Improving FIo2 70% -->60--> 50 --> 60% p 15 -->12 #3 HIV, likely AIDS:CD4=10 / VL 1,300,000 copies #4 Sepsis: Likely secondary to above. #5 JENNIFER: better today, all renally adjusted #6 Sepsis: still tachycardia, leukocytosis resolved and new fever improving; likely from above #7 Epistaxis on 06/24/2018 s/p packing Recs: f/u BAL/bronch f/u serum BAL-Galactomannan antigen, [id number]-[id number] assay, histoplasma urine ag and cocci serology continue renally adjusted liposomal Amphothericin D4 started in light of worsening oxygenation continue bactrim renally adjusted D8 stop vancomycin renally dosed to cover Rothia D5 start ganciclovir renally adjusted for disseminated CMV - discussed with ph armacy continue azithromycin 1200 mg qweek for MAC prophylaxis Continue IV steroids F/u genotype When stable will check CT chest and sinus Overall prognosis guarded Will follow Keke Manzo MD Infectious Diseases Health Education Assistant [facility] ([facility]) M [phone] O [phone] Subjective Date of service: 06/28/18 Principal diagnosis: Acute Hypoxemic Resp Failure; AIDS / HIV positive; Severe Sepsis due to PNA Interval history: Patient remains intubated on CMV FiO2 60%, p 12, sedated on 1 sedative. Tmax 100 ROS unable to obtain Objective - Exam Narrative Exam: General appearance: sedated on the vent FIO2 60% p 12 Eyes: anicteric sclerae, moist conjunctivae; no lid-lag; PERRLA +conjunctivae edema shruthi HENT: Atraumatic; oropharynx +ETT. Neck: Trachea midline; supple, no thyromegaly or lymphadenopathy Lungs: shruthi rhonchi CV: tachycardic Abdomen: Soft, non-tender; no masses or hepatosplenomegaly Extremities: +shruthi arm edema / leg edema Skin: Normal temperature, turgor and texture; no rash, ulcers or subcutaneous nodules Psych: sedated. Neuro: sedated Rust Right IJ TLC - Constitutional Vitals: Vital Signs Temp Pulse Resp BP Pulse Ox 100.0 F H 100 H 28 H 128/79 96 06/28/18 04:00 06/28/18 06:10 06/28/18 06:00 06/28/18 06:10 06/28/18 06:00 Temperature -Last 24 Hours Temperature 100.0 F Temperature 99.0 F Temperature 98.7 F Temperature 99.9 F Temperature 99.4 F Temperature 99.8 F - Labs CBC & Chem 7: 06/27/18 05:15 06/28/18 04:54 Labs: Abnormal lab results 06/27/18 06/27/18 06/27/18 Range/Units 13:10 16:12 17:51 POC ABG pH (7.35-7.45) POC ABG pCO2 (35-45) BUN (9-20) mg/dL Creatinine (0.8-1.5) mg/dL Glucose (75-100) mg/dL POC Glucose 238 H 174 H 162 H (70-105) Calcium (8.4-10.2) mg/dL 06/27/18 06/28/18 06/28/18 Range/Units 23:22 04:36 04:54 POC ABG pH 7.257 L (7.35-7.45) POC ABG pCO2 68.8 H (35-45) BUN 93 H (9-20) mg/dL Creatinine 2.4 H (0.8-1.5) mg/dL Glucose 186 H (75-100) mg/dL POC Glucose 171 H (70-105) Calcium 8.3 L (8.4-10.2) mg/dL 06/28/18 Range/Units 05:10 POC ABG pH (7.35-7.45) POC ABG pCO2 (35-45) BUN (9-20) mg/dL Creatinine (0.8-1.5) mg/dL Glucose (75-100) mg/dL POC Glucose 193 H (70-105) Calcium (8.4-10.2) mg/dL
--- NOTE | 2018-06-28 09:19 | Progress Note ---
Assessment and Plan - Patient Problems (1) Acute kidney failure with tubular necrosis Current Visit: Yes Status: Acute Plan to address problem: Multifactorial in setting of pre-renal injury, ATN secondary sepsis, contrast exposure, voriconazole, bactrim/antibiotic exposure. Will monitor, continue current supportive care. Need to adjust dose antimicro bials for his decreased renal clearance. Avoid nephrotoxins as much as possible in this critically ill patient with worsening renal injury. Renal function stable at this time. Antibiotics are being dosed for decreased renal clearance. Patient is being added on ganciclovir, to be dosed for his decreased renal clearance. Would recommend that the be placed on gentle IVF hydration as he is receiving ganciclovir to minimize renal injury. (2) Acute respiratory failure with hypoxia Current Visit: Yes Status: Acute Plan to address problem: Management per ICU team. (3) Bilateral pneumonia Current Visit: Yes Status: Acute Qualifiers: Pneumonia type: due to unspecified organism Lung location: unspecified part of lung Qualified Code(s): J18.9 - Pneumonia, unspecified organism Plan to address problem: Antibiotics per ID recommendations. S/p BAL with findings noted. (4) AIDS (acquired immune deficiency syndrome) Current Visit: Yes Status: Acute Plan to address problem: Management per ID. (5) Anemia Current Visit: Yes Status: Acute Plan to address problem: Assess folate and B12 levels, monitor closely. Transfuse to maintain Hgb >7.0. Subjective Date of service: 06/28/18 Principal diagnosis: Acute Hypoxemic Resp Failure; AIDS / HIV positive; Severe Sepsis due to PNA Interval history: Discussed case with ID physician. 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 Objective - Vital Signs Vital signs: Vital Signs - 12hr 06/27/18 06/27/18 06/27/18 22:01 22:46 23:00 Temperature Pulse Rate 132 H 121 H Pulse Rate [ Anterior Bilateral Throughout] Pulse Rate [ From Monitor] Respiratory 31 H 25 H Rate Respiratory Rate [Anterior Bilateral Throughout] Blood Pressure 119/61 120/66 124/72 O2 Sat by Pulse 89 99 Oximetry 06/27/18 06/28/18 06/28/18 23:23 00:00 00:40 Temperature 99.0 F Pulse Rate 120 H 99 H 101 H Pulse Rate [ Anterior Bilateral Throughout] Pulse Rate [ 116 H From Monitor] Respiratory 25 H 28 H Rate Respiratory Rate [Anterior Bilateral Throughout] Blood Pressure 125/76 135/79 137/78 O2 Sat by Pulse 100 92 91 Oximetry 06/28/18 06/28/18 06/28/18 01:00 02:00 02:05 Temperature Pulse Rate 105 H 112 H Pulse Rate [ 110 H Anterior Bilateral Throughout] Pulse Rate [ From Monitor] Respiratory 30 H 28 H Rate Respiratory 26 H Rate [Anterior Bilateral Throughout] Blood Pressure 134/77 138/73 O2 Sat by Pulse 89 85 Oximetry 06/28/18 06/28/18 06/28/18 02:15 03:01 04:00 Temperature 100.0 F H Pulse Rate 116 H 108 H Pulse Rate [ 117 H Anterior Bilateral Throughout] Pulse Rate [ 116 H From Monitor] Respiratory 32 H 28 H Rate Respiratory 25 H Rate [Anterior Bilateral Throughout] Blood Pressure 135/82 O2 Sat by Pulse 90 90 Oximetry 06/28/18 06/28/18 06/28/18 04:01 04:38 05:00 Temperature Pulse Rate 121 H 115 H 120 H Pulse Rate [ Anterior Bilateral Throughout] Pulse Rate [ From Monitor] Respiratory 30 H 31 H Rate Respiratory Rate [Anterior Bilateral Throughout] Blood Pressure 142/87 124/87 134/83 O2 Sat by Pulse 91 87 Oximetry 06/28/18 06/28/18 06:00 06:10 Temperature Pulse Rate 116 H 100 H Pulse Rate [ Anterior Bilateral Throughout] Pulse Rate [ From Monitor] Respiratory 28 H Rate Respiratory Rate [Anterior Bilateral Throughout] Blood Pressure 128/79 128/79 O2 Sat by Pulse 96 Oximetry - General Appearance General appearance: sedated on ventilator, intubated EENT: ATNC, PERRL Neck: no JVD, no thyromegaly Respiratory: Present: Wheezes Cardiology: regular, S1S2 Gastrointestinal: normal, normoactive bowel sounds Integumentary: warm and dry Neurologic: other (sedated on ventilator) - Lab 06/27/18 05:15 06/28/18 04:54 Most recent lab results Calcium 8.3 mg/dL (8.4-10.2) L 06/28/18 04:54 Urine Creatinine 47.2 mg/dL (0.1-20.0) H 06/24/18 22:45 Urine Sodium 40 mmol/L 06/24/18 22:45 Urine Total Protein 25 mg/dL (5-11.8) H 06/24/18 22:45 - Allied health notes Allied health notes reviewed: nursing Medications & Allergies - Medications Allergies/Adverse Reactions: Allergies No Known Allergies Allergy (Verified 06/19/18 06:10) Home Medications: Home Medications Medication Instructions Recorded Confirmed Last Taken Type ALBUTEROL Inhaler (OR & NICU) 2 puff IH QID PRN 06/19/18 06/19/18 Unknown His tory [Proair] Pantoprazole [Protonix] 40 mg PO QDAY 06/19/18 06/19/18 Unknown History levoFLOXacin [Levaquin TAB] 500 mg PO QDAY 06/19/18 06/19/18 Unknown History Active Medications: Generic Name Dose Route Start Last Admin Trade Name Freq PRN Reason Stop Dose Admin Acetaminophen 650 mg 06/19/18 06:30 06/25/18 00:04 Tylenol PO 650 mg Q4H PRN Administration Pain MILD(1-3)/Fever >100.5/WESTON Albuterol/Ipratropium 1 ampul 06/26/18 14:00 06/28/18 02:12 Duoneb *Not For Prn Use* IH 1 ampul Q6HRT PEYTON Administration Lipase/Protease/Amylase 1 each 06/19/18 16:02 Pancremeseret Arroyo 10,500 Unit FEEDTUBE PRN PRN For Clogged Feeding Tube Apixaban 2.5 mg 06/26/18 22:00 06/27/18 21:39 Eliquis PO 2.5 mg BID PEYTON Administration Azithromycin 1,200 mg 06/25/18 11:00 06/25/18 12:05 Zithromax PO 1,200 mg Mo PEYTON Administration Famotidine 20 mg 06/26/18 22:00 06/27/18 21:40 Pepcid PO 20 mg BID PEYTON Administration Fentanyl 50 mcg 06/19/18 06:00 06/21/18 02:05 Sublimaze IV 50 mcg Q10MIN PRN Administration ANALGESIA Hydrophilic Ointment 1 applic 06/19/18 06:00 Vaseline Lip Therapy TP Q2HR PRN Dry Lips Fentanyl Citrate 2,000 mcg in 100 mls @ 3.86 mls/hr 06/19/18 06:00 06/28/18 06:09 Fentanyl Drip Premix IV 4 mcg/kg/hr TITR PEYTON 15.441 mls/hr Administration Protocol 1 MCG/KG/HR Norepinephrine 4 mg in 250 mls @ 7.5 mls/hr 06/19/18 15:00 06/19/18 22:00 Levophed Drip 4 Mg/Ns 250 Ml IV 0 mcg/min TITR PEYTON 0 mls/hr Titration Protocol 2 MCG/MIN Propofol 1,000 mg in 100 mls @ 2.601 mls/hr 06/24/18 15:00 06/28/18 06:09 Diprivan 10 Mg/Ml IV 40 mcg/kg/min TITR PEYTON 20.808 mls/hr Administration Protocol 5 MCG/KG/MIN Amphotericin B 400 mg/ 580 mls @ 250 mls/hr 06/25/18 10:00 06/27/18 10:25 Dextrose IV 250 mls/hr Q24HR PEYTON Administration Dextrose 500 mls @ 5 mls/hr 06/25/18 08:56 06/25/18 10:35 D5w IV 0 mls/hr PRN PRN Infusion FLUSH BEFORE AND AFTER AMPHO B Sodium Chloride 1,000 mls @ 5 mls/hr 06/25/18 20:00 06/27/18 13:24 Nacl 0.9% 1000 Ml IV 5 mls/hr DIRECT PEYTON Administration Trimethoprim/Sulfamethoxazole 275 mls @ 350 mls/hr 06/27/18 22:00 06/27/18 21:39 400 mg/ Dextrose IV 350 mls/hr Q12HR PEYTON Administration Protocol Sodium Chloride 1,000 mls @ 75 mls/hr 06/27/18 12:00 Nacl 0.9% 1000 Ml IV DIRECT PEYTON Ganciclovir Sodium 265 mg/ 250 mls @ 100 mls/hr 06/28/18 09:00 Sodium Chloride IV Q24H PEYTON Insulin Glargine 10 units 06/26/18 13:00 06/27/18 10:05 Lantus SUB-Q 10 units DAILY PEYTON Administration Insulin Human Lispro 0 unit 06/20/18 13:00 06/28/18 07:30 Humalog SUB-Q 3 unit Q6HR PEYTON Administration Protocol Methylprednisolone Sodium Succinate 40 mg 06/19/18 22:00 06/27/18 21:42 Solu-Medrol IV 40 mg Q12HR PEYTON Administration Metoprolol Tartrate 5 mg 06/27/18 18:00 06/28/18 06:10 Lopressor IV 06/29/18 17:59 5 mg Q6HR PEYTON Administration Multi-Ingred Cream/Lotion/Oil/Oint 1 applic 06/19/18 06:00 Artificial Tears Ophth Oint OU Q4HR PRN Dry Eye(s) Ondansetron HCl 4 mg 06/19/18 06:30 Zofran IV Q8H PRN Nausea And Vomiting Phenylephrine HCl 2 spray 06/24/18 06:07 06/25/18 05:35 Thompson-Synephrine NS 2 spray Q4H PRN Administration Congestion Quetiapine Fumarate 200 mg 06/21/18 22:00 06/27/18 21:43 Seroquel PO 200 mg BID PEYTON Administration Simple Syrup 15 ml 06/19/18 16:02 Simple Syrup FEEDTUBE PRN PRN Hypoglycemia Simple Syrup 30 ml 06/19/18 16:02 Simple Syrup FEEDTUBE PRN PRN Hypoglycemia Sodium Bicarbonate 325 mg 06/19/18 16:02 Sodium Bicarbonate FEEDTUBE PRN PRN For Clogged Feeding Tube Sodium Chloride 10 ml 06/19/18 10:00 06/27/18 21:42 Sodium Chloride Flush Syringe 10 Ml IV 10 ml BID PEYTON Administration Sodium Chloride 10 ml 06/19/18 06:30 Sodium Chloride Flush Syringe 10 Ml IV PRN PRN LINE FLUSH
--- NOTE | 2018-06-28 09:50 | Progress Note ---
Assessment and Plan Acute Hypoxemic Respiratory Failure on MVS ARDS AIDS / HIV positive Severe Sepsis due to Pneumonia Hyponatremia Severe metabolic acidosis Lower extremity DVT -VAP bundle addressed - Continue supplemental oxygen to keep sats > 90% -Wean PEEP and FIO2 as tolerated -ARDS net protocol with lung protective strategies Permissive hypercapnia for now. Fluid restrictive strategies as tolerated by hemodynamics and renal function. OK for bicarbonate if pH <7.1 - follow up tracheal aspirate cultures - continue bronchodilators with pulmonary -Vasopressor support if indicated to keep MAP>65 - Bactrim, emiprically for PJP, continue steroids -Continue empiric and targeted anti-infective's per ID recs - Continue enteral nutrition -Aspiration precautions, HOB>40 -Accucheck and monitor for hypoglycemia -Target glucose of 140mg- 180mg/dL - monitor for drug-drug interaction - Daily SATs and SBT per protocol once his ventilatory needs are minimal - Stress ulcer prophylaxis -Anticoagulation -Critical care bundles addressed -Rust catheter in this critically ill patient requiring strict intake and output monitor CONDITION: CRITICAL PROGNOSIS: GUARDED CODE STATUS: FULL CODE The high probability of a clinically significant, sudden or life-threatening deterioration of the [cardiac, respiratory] system(s) required my full and direct attention, intervention and personal management. The aggregate critical care time was [35] minutes without overlap. Time includes spent on; [x] Data Review and interpretation [x] Patient assessment and monitoring of vital signs [x] Documentation Subjective Date of service: 06/28/18 Principal diagnosis: Acute Hypoxemic Resp Failure; AIDS / HIV positive; Severe Sepsis due to PNA Interval history: Patient is seen today for: Acute Hypoxemic Respiratory Failure on MVS; AIDS / HIV positive; Severe Sepsis due to Pneumonia; Hyponatremia; Severe metabolic acidosis Seen and examined at bedside; 24hour events reviewed; nursing and respiratory care staff consulted; no adverse overnight events reported to me; fevers overnight; on fentanyl and versed; opens eyes on verbal and tactile stimulation; remains on MVS with ongoing desaturations requiring PEEP 14 and FIO2 80%; no seizures reported; no emesis or overt aspiration Discussed on ICU-IDT rounds Objective Vital Signs - 12hr 06/27/18 06/27/18 06/27/18 22:01 22:46 23:00 Temperature Pulse Rate 132 H 121 H Pulse Rate [ Anterior Bilateral Throughout] Pulse Rate [ From Monitor] Respiratory 31 H 25 H Rate Respiratory Rate [Anterior Bilateral Throughout] Blood Pressure 119/61 120/66 124/72 O2 Sat by Pulse 89 99 Oximetry 06/27/18 06/28/18 06/28/18 23:23 00:00 00:40 Temperature 99.0 F Pulse Rate 120 H 99 H 101 H Pulse Rate [ Anterior Bilateral Throughout] Pulse Rate [ 116 H From Monitor] Respiratory 25 H 28 H Rate Respiratory Rate [Anterior Bilateral Throughout] Blood Pressure 125/76 135/79 137/78 O2 Sat by Pulse 100 92 91 Oximetry 06/28/18 06/28/18 06/28/18 01:00 02:00 02:05 Temperature Pulse Rate 105 H 112 H Pulse Rate [ 110 H Anterior Bilateral Throughout] Pulse Rate [ From Monitor] Respiratory 30 H 28 H Rate Respiratory 26 H Rate [Anterior Bilateral Throughout] Blood Pressure 134/77 138/73 O2 Sat by Pulse 89 85 Oximetry 06/28/18 06/28/18 06/28/18 02:15 03:01 04:00 Temperature 100.0 F H Pulse Rate 116 H 108 H Pulse Rate [ 117 H Anterior Bilateral Throughout] Pulse Rate [ 116 H From Monitor] Respiratory 32 H 28 H Rate Respiratory 25 H Rate [Anterior Bilateral Throughout] Blood Pressure 135/82 O2 Sat by Pulse 90 90 Oximetry 06/28/18 06/28/18 06/28/18 04:01 04:38 05:00 Temperature Pulse Rate 121 H 115 H 120 H Pulse Rate [ Anterior Bilateral Throughout] Pulse Rate [ From Monitor] Respiratory 30 H 31 H Rate Respiratory Rate [Anterior Bilateral Throughout] Blood Pressure 142/87 124/87 134/83 O2 Sat by Pulse 91 87 Oximetry 06/28/18 06/28/18 06/28/18 06:00 06:10 08:00 Temperature 98.8 F Pulse Rate 116 H 100 H Pulse Rate [ Anterior Bilateral Throughout] Pulse Rate [ From Monitor] Respiratory 28 H Rate Respiratory Rate [Anterior Bilateral Throughout] Blood Pressure 128/79 128/79 O2 Sat by Pulse 96 Oximetry 06/28/18 09:21 Temperature Pulse Rate 118 H Pulse Rate [ 116 H Anterior Bilateral Throughout] Pulse Rate [ From Monitor] Respiratory Rate Respiratory 35 H Rate [Anterior Bilateral Throughout] Blood Pressure 139/76 O2 Sat by Pulse 85 Oximetry Constitutional: appears uncomfortable, other (young HM normocephalic and atraumatic with moderately increased respiratory effort at rest) Eyes: non-icteric ENT: oropharynx moist, other (ETT 23 cm SATISH) Neck: supple, no lymphadenopathy, no JVD, other (no thyromegaly) Effort: mildly labored Ascultation: Bilateral: diminished breath sounds, rhonchi Percussion: Bilateral: not dull Cardiovascular: regular rate and rhythm Gastrointestinal: normoactive bowel sounds, soft, non-tender, non-distended Integumentary: rash Extremities: no cyanosis, pink and warm, pulses normal, no ischemia or petechiae, edema (trace) Neurologic: non-focal exam (grossly), pupils equal and round, motor strength normal and, unable to assess Psychiatric: other (unable to assess) CBC and BMP: 06/29/18 08:07 06/29/18 05:15 ABG, PT/INR, D-dimer: ABG POC ABG pH 7.257 (7.35-7.45) L 06/28/18 04:36 POC ABG pCO2 68.8 (35-45) H 06/28/18 04:36 POC ABG pO2 84 (80-105) 06/28/18 04:36 POC ABG HCO3 30.6 06/28/18 04:36 POC ABG Total CO2 33 06/28/18 04:36 POC ABG O2 Sat 94 06/28/18 04:36 PT/INR, D-dimer PT 15.6 Sec. (12.2-14.9) H 06/24/18 Unknown INR 1.17 (0.87-1.13) H 06/24/18 Unknown D-Dimer 8449.09 ng/mlDDU (0-234) H 06/19/18 Unknown Abnormal lab findings: Abnormal Labs 06/19/18 06/19/18 06/19/18 03:31 07:11 07:42 WBC RBC Hgb Hct MCV RDW Seg Neuts % (Manual) Lymphocytes % (Manual) Seg Neutrophils # Man Abs Lymphs (Manual) 409 L Lymphocytes # (Manual) PT INR D-Dimer POC ABG pH 6.974 L POC ABG pCO2 22.0 L 83.4 H POC ABG pO2 28 L 122 H Sodium Potassium Chloride Carbon Dioxide BUN Creatinine Glucose POC Glucose Calcium AST ALT C-Reactive Protein Total Protein Albumin Triglycerides Ur Specific [place] Urine WBC (Auto) Urine Creatinine Urine Total Protein Lymph Enumerat CD4/CD8 0.05 L % CD3 Cells 45 L Absolute CD3 Count 185 L % CD4 Cells 2 L Absolute CD4 Count 10 L % CD8 Cells 43 H Absolute CD8 Count 167 L Absolute CD19 Count 79 L HIV DNA Qual (PCR) HIV-1 RNA PCR copies/ml HIV-1 RNA (PCR) log Miscellaneous Test 06/19/18 06/19/18 06/19/18 08:07 08:16 09:20 WBC RBC Hgb Hct MCV RDW Seg Neuts % (Manual) Lymphocytes % (Manual) Seg Neutrophils # Man Abs Lymphs (Manual) Lymphocytes # (Manual) PT INR D-Dimer POC ABG pH 6.996 L POC ABG pCO2 82.4 H POC ABG pO2 Sodium Potassium Chloride Carbon Dioxide BUN Creatinine Glucose POC Glucose Calcium AST ALT C-Reactive Protein Total Protein Albumin Triglycerides Ur Specific [place] 1.060 H Urine WBC (Auto) 8.0 H Urine Creatinine Urine Total Protein Lymph Enumerat CD4/CD8 % CD3 Cells Absolute CD3 Count % CD4 Cells Absolute CD4 Count % CD8 Cells Absolute CD8 Count Absolute CD19 Count HIV DNA Qual (PCR) Detected H HIV-1 RNA PCR copies/ml HIV-1 RNA (PCR) log Miscellaneous Test 06/19/18 06/19/18 06/19/18 09:49 11:15 15:16 WBC RBC Hgb Hct MCV RDW Seg Neuts % (Manual) Lymphocytes % (Manual) Seg Neutrophils # Man Abs Lymphs (Manual) Lymphocytes # (Manual) PT INR D-Dimer POC ABG pH 7.198 L 7.206 L POC ABG pCO2 POC ABG pO2 75 L Sodium Potassium Chloride Carbon Dioxide BUN Creatinine Glucose POC Glucose Calcium AST ALT C-Reactive Protein Total Protein Albumin Triglycerides Ur Specific [place] Urine WBC (Auto) Urine Creatinine Urine Total Protein Lymph Enumerat CD4/CD8 % CD3 Cells Absolute CD3 Count % CD4 Cells Absolute CD4 Count % CD8 Cells Absolute CD8 Count Absolute CD19 Count HIV DNA Qual (PCR) HIV-1 RNA PCR copies/ml [id number] H HIV-1 RNA (PCR) log 6.11 H Miscellaneous Test 06/19/18 06/19/18 06/19/18 18:54 Unknown Unknown WBC 12.9 H RBC Hgb Hct MCV RDW Seg Neuts % (Manual) Lymphocytes % (Manual) 5.0 L Seg Neutrophils # Man Abs Lymphs (Manual) Lymphocytes # (Manual) 0.6 L PT 15.9 H INR 1.19 H D-Dimer 8449.09 H POC ABG pH POC ABG pCO2 POC ABG pO2 Sodium Potassium Chloride Carbon Dioxide BUN Creatinine Glucose POC Glucose 196 H Calcium AST ALT C-Reactive Protein Total Protein Albumin Triglycerides Ur Specific [place] Urine WBC (Auto) Urine Creatinine Urine Total Protein Lymph Enumerat CD4/CD8 % CD3 Cells Absolute CD3 Count % CD4 Cells Absolute CD4 Count % CD8 Cells Absolute CD8 Count Absolute CD19 Count HIV DNA Qual (PCR) HIV-1 RNA PCR copies/ml HIV-1 RNA (PCR) log Miscellaneous Test 06/19/18 06/19/18 06/20/18 Unknown Unknown 04:33 WBC RBC Hgb Hct MCV RDW Seg Neuts % (Manual) Lymphocytes % (Manual) Seg Neutrophils # Man Abs Lymphs (Manual) Lymphocytes # (Manual) PT INR D-Dimer POC ABG pH 7.249 L POC ABG pCO2 POC ABG pO2 118 H Sodium 129 L Potassium Chloride 90.7 L Carbon Dioxide 17 L BUN Creatinine 0.6 L Glucose 199 H POC Glucose Calcium 8.1 L AST 53 H ALT C-Reactive Protein Total Protein 6.0 L Albumin 2.8 L Triglycerides Ur Specific [place] Urine WBC (Auto) Urine Creatinine Urine Total Protein Lymph Enumerat CD4/CD8 % CD3 Cells Absolute CD3 Count % CD4 Cells Absolute CD4 Count % CD8 Cells Absolute CD8 Count Absolute CD19 Count HIV DNA Qual (PCR) HIV-1 RNA PCR copies/ml HIV-1 RNA (PCR) log Miscellaneous Test 06/20/18 06/20/18 06/20/18 08:13 08:13 12:59 WBC 11.8 H RBC 3.25 L Hgb 9.8 L D Hct 30.4 L D MCV RDW Seg Neuts % (Manual) 99.0 H Lymphocytes % (Manual) 1.0 L Seg Neutrophils # Man 11.7 H Abs Lymphs (Manual) Lymphocytes # (Manual) 0.1 L PT INR D-Dimer POC ABG pH POC ABG pCO2 POC ABG pO2 Sodium Potassium Chloride Carbon Dioxide 19 L BUN Creatinine Glucose 223 H POC Glucose 174 H Calcium 6.6 L D AST 1240 H ALT 836 H C-Reactive Protein Total Protein 4.9 L Albumin 2.1 L Triglycerides Ur Specific [place] Urine WBC (Auto) Urine Creatinine Urine Total Protein Lymph Enumerat CD4/CD8 % CD3 Cells Absolute CD3 Count % CD4 Cells Absolute CD4 Count % CD8 Cells Absolute CD8 Count Absolute CD19 Count HIV DNA Qual (PCR) HIV-1 RNA PCR copies/ml HIV-1 RNA (PCR) log Miscellaneous Test 06/20/18 06/20/18 06/21/18 17:42 23:44 04:08 WBC RBC Hgb Hct MCV RDW Seg Neuts % (Manual) Lymphocytes % (Manual) Seg Neutrophils # Man Abs Lymphs (Manual) Lymphocytes # (Manual) PT INR D-Dimer POC ABG pH 7.309 L POC ABG pCO2 POC ABG pO2 Sodium Potassium Chloride Carbon Dioxide BUN Creatinine Glucose POC Glucose 177 H 195 H Calcium AST ALT C-Reactive Protein Total Protein Albumin Triglycerides Ur Specific [place] Urine WBC (Auto) Urine Creatinine Urine Total Protein Lymph Enumerat CD4/CD8 % CD3 Cells Absolute CD3 Count % CD4 Cells Absolute CD4 Count % CD8 Cells Absolute CD8 Count Absolute CD19 Count HIV DNA Qual (PCR) HIV-1 RNA PCR copies/ml HIV-1 RNA (PCR) log Miscellaneous Test 06/21/18 06/21/18 06/21/18 04:19 04:19 05:27 WBC 13.8 H RBC 3.02 L Hgb 9.2 L Hct 28.0 L MCV RDW Seg Neuts % (Manual) Lymphocytes % (Manual) Seg Neutrophils # Man Abs Lymphs (Manual) Lymphocytes # (Manual) PT INR D-Dimer POC ABG pH POC ABG pCO2 POC ABG pO2 Sodium 135 L Potassium Chloride Carbon Dioxide 21 L BUN Creatinine 0.7 L Glucose 161 H POC Glucose 187 H Calcium 7.2 L AST 390 H ALT 622 H C-Reactive Protein Total Protein 5.3 L Albumin 2.4 L Triglycerides Ur Specific [place] Urine WBC (Auto) Urine Creatinine Urine Total Protein Lymph Enumerat CD4/CD8 % CD3 Cells Absolute CD3 Count % CD4 Cells Absolute CD4 Count % CD8 Cells Absolute CD8 Count Absolute CD19 Count HIV DNA Qual (PCR) HIV-1 RNA PCR copies/ml HIV-1 RNA (PCR) log Miscellaneous Test 06/21/18 06/21/18 06/21/18 11:33 12:32 17:45 WBC RBC Hgb Hct MCV RDW Seg Neuts % (Manual) Lymphocytes % (Manual) Seg Neutrophils # Man Abs Lymphs (Manual) Lymphocytes # (Manual) PT INR D-Dimer POC ABG pH POC ABG pCO2 POC ABG pO2 Sodium Potassium Chloride Carbon Dioxide BUN Creatinine Glucose POC Glucose 147 H 172 H Calcium AST ALT C-Reactive Protein Total Protein Albumin Triglycerides Ur Specific [place] Urine WBC (Auto) Urine Creatinine Urine Total Protein Lymph Enumerat CD4/CD8 % CD3 Cells Absolute CD3 Count % CD4 Cells Absolute CD4 Count % CD8 Cells Absolute CD8 Count Absolute CD19 Count HIV DNA Qual (PCR) HIV-1 RNA PCR copies/ml HIV-1 RNA (PCR) log Miscellaneous Test see below H 06/21/18 06/22/18 06/22/18 23:25 04:47 04:47 WBC 11.5 H RBC 2.93 L Hgb 9.0 L Hct 26.5 L MCV RDW Seg Neuts % (Manual) Lymphocytes % (Manual) Seg Neutrophils # Man Abs Lymphs (Manual) Lymphocytes # (Manual) PT INR D-Dimer POC ABG pH POC ABG pCO2 POC ABG pO2 Sodium Potassium Chloride Carbon Dioxide BUN 22 H Creatinine Glucose 201 H POC Glucose 152 H Calcium 7.8 L AST 129 H ALT 416 H C-Reactive Protein Total Protein 5.3 L Albumin 2.4 L Triglycerides Ur Specific [place] Urine WBC (Auto) Urine Creatinine Urine Total Protein Lymph Enumerat CD4/CD8 % CD3 Cells Absolute CD3 Count % CD4 Cells Absolute CD4 Count % CD8 Cells Absolute CD8 Count Absolute CD19 Count HIV DNA Qual (PCR) HIV-1 RNA PCR copies/ml HIV-1 RNA (PCR) log Miscellaneous Test 06/22/18 06/22/18 06/22/18 05:23 11:43 17:45 WBC RBC Hgb Hct MCV RDW Seg Neuts % (Manual) Lymphocytes % (Manual) Seg Neutrophils # Man Abs Lymphs (Manual) Lymphocytes # (Manual) PT INR D-Dimer POC ABG pH POC ABG pCO2 POC ABG pO2 Sodium Potassium Chloride Carbon Dioxide BUN Creatinine Glucose POC Glucose 170 H 175 H 176 H Calcium AST ALT C-Reactive Protein Total Protein Albumin Triglycerides Ur Specific [place] Urine WBC (Auto) Urine Creatinine Urine Total Protein Lymph Enumerat CD4/CD8 % CD3 Cells Absolute CD3 Count % CD4 Cells Absolute CD4 Count % CD8 Cells Absolute CD8 Count Absolute CD19 Count HIV DNA Qual (PCR) HIV-1 RNA PCR copies/ml HIV-1 RNA (PCR) log Miscellaneous Test 06/23/18 06/23/18 06/23/18 00:24 05:06 05:11 WBC 11.2 H RBC 2.78 L Hgb 8.6 L Hct 25.3 L MCV RDW Seg Neuts % (Manual) Lymphocytes % (Manual) Seg Neutrophils # Man Abs Lymphs (Manual) Lymphocytes # (Manual) PT INR D-Dimer POC ABG pH POC ABG pCO2 POC ABG pO2 Sodium Potassium Chloride Carbon Dioxide BUN Creatinine Glucose POC Glucose 178 H 182 H Calcium AST ALT C-Reactive Protein Total Protein Albumin Triglycerides Ur Specific [place] Urine WBC (Auto) Urine Creatinine Urine Total Protein Lymph Enumerat CD4/CD8 % CD3 Cells Absolute CD3 Count % CD4 Cells Absolute CD4 Count % CD8 Cells Absolute CD8 Count Absolute CD19 Count HIV DNA Qual (PCR) HIV-1 RNA PCR copies/ml HIV-1 RNA (PCR) log Miscellaneous Test 06/23/18 06/23/18 06/23/18 05:11 05:51 12:21 WBC RBC Hgb Hct MCV RDW Seg Neuts % (Manual) Lymphocytes % (Manual) Seg Neutrophils # Man Abs Lymphs (Manual) Lymphocytes # (Manual) PT INR D-Dimer POC ABG pH POC ABG pCO2 POC ABG pO2 69 L Sodium Potassium Chloride Carbon Dioxide BUN 34 H Creatinine 1.7 H D Glucose 191 H POC Glucose 181 H Calcium 7.5 L AST 63 H ALT 297 H C-Reactive Protein Total Protein 5.3 L Albumin 2.4 L Triglycerides Ur Specific [place] Urine WBC (Auto) Urine Creatinine Urine Total Protein Lymph Enumerat CD4/CD8 % CD3 Cells Absolute CD3 Count % CD4 Cells Absolute CD4 Count % CD8 Cells Absolute CD8 Count Absolute CD19 Count HIV DNA Qual (PCR) HIV-1 RNA PCR copies/ml HIV-1 RNA (PCR) log Miscellaneous Test 06/23/18 06/23/18 06/23/18 13:57 17:00 18:40 WBC RBC Hgb Hct MCV RDW Seg Neuts % (Manual) Lymphocytes % (Manual) Seg Neutrophils # Man Abs Lymphs (Manual) Lymphocytes # (Manual) PT INR D-Dimer POC ABG pH POC ABG pCO2 POC ABG pO2 Sodium Potassium Chloride Carbon Dioxide BUN 38 H Creatinine 1.8 H Glucose POC Glucose 196 H Calcium AST ALT C-Reactive Protein 1.60 H Total Protein Albumin Triglycerides Ur Specific [place] Urine WBC (Auto) Urine Creatinine Urine Total Protein Lymph Enumerat CD4/CD8 % CD3 Cells Absolute CD3 Count % CD4 Cells Absolute CD4 Count % CD8 Cells Absolute CD8 Count Absolute CD19 Count HIV DNA Qual (PCR) HIV-1 RNA PCR copies/ml HIV-1 RNA (PCR) log Miscellaneous Test 06/23/18 06/23/18 06/24/18 21:16 23:22 04:12 WBC RBC 2.89 L Hgb 8.8 L Hct 26.9 L MCV RDW Seg Neuts % (Manual) Lymphocytes % (Manual) Seg Neutrophils # Man Abs Lymphs (Manual) Lymphocytes # (Manual) PT INR D-Dimer POC ABG pH 7.311 L POC ABG pCO2 47.4 H POC ABG pO2 Sodium Potassium Chloride Carbon Dioxide BUN Creatinine Glucose POC Glucose 165 H Calcium AST ALT C-Reactive Protein Total Protein Albumin Triglycerides Ur Specific [place] Urine WBC (Auto) Urine Creatinine Urine Total Protein Lymph Enumerat CD4/CD8 % CD3 Cells Absolute CD3 Count % CD4 Cells Absolute CD4 Count % CD8 Cells Absolute CD8 Count Absolute CD19 Count HIV DNA Qual (PCR) HIV-1 RNA PCR copies/ml HIV-1 RNA (PCR) log Miscellaneous Test 06/24/18 06/24/18 06/24/18 04:12 04:46 05:24 WBC RBC Hgb Hct MCV RDW Seg Neuts % (Manual) Lymphocytes % (Manual) Seg Neutrophils # Man Abs Lymphs (Manual) Lymphocytes # (Manual) PT INR D-Dimer POC ABG pH 7.250 L POC ABG pCO2 55.8 H POC ABG pO2 Sodium Potassium 5.4 H Chloride Carbon Dioxide BUN 44 H Creatinine 2.2 H Glucose 206 H POC Glucose 183 H Calcium 7.5 L AST ALT C-Reactive Protein Total Protein Albumin Triglycerides Ur Specific [place] Urine WBC (Auto) Urine Creatinine Urine Total Protein Lymph Enumerat CD4/CD8 % CD3 Cells Absolute CD3 Count % CD4 Cells Absolute CD4 Count % CD8 Cells Absolute CD8 Count Absolute CD19 Count HIV DNA Qual (PCR) HIV-1 RNA PCR copies/ml HIV-1 RNA (PCR) log Miscellaneous Test 06/24/18 06/24/18 06/24/18 11:14 16:40 17:16 WBC RBC Hgb Hct MCV RDW Seg Neuts % (Manual) Lymphocytes % (Manual) Seg Neutrophils # Man Abs Lymphs (Manual) Lymphocytes # (Manual) PT INR D-Dimer POC ABG pH 7.067 L POC ABG pCO2 91.7 H POC ABG pO2 134 H Sodium Potassium Chloride Carbon Dioxide BUN Creatinine Glucose POC Glucose 151 H 195 H Calcium AST ALT C-Reactive Protein Total Protein Albumin Triglycerides Ur Specific [place] Urine WBC (Auto) Urine Creatinine Urine Total Protein Lymph Enumerat CD4/CD8 % CD3 Cells Absolute CD3 Count % CD4 Cells Absolute CD4 Count % CD8 Cells Absolute CD8 Count Absolute CD19 Count HIV DNA Qual (PCR) HIV-1 RNA PCR copies/ml HIV-1 RNA (PCR) log Miscellaneous Test 06/24/18 06/24/18 06/24/18 18:03 22:45 22:45 WBC RBC Hgb Hct MCV RDW Seg Neuts % (Manual) Lymphocytes % (Manual) Seg Neutrophils # Man Abs Lymphs (Manual) Lymphocytes # (Manual) PT INR D-Dimer POC ABG pH 7.234 L POC ABG pCO2 59.9 H POC ABG pO2 121 H Sodium Potassium Chloride Carbon Dioxide BUN Creatinine Glucose POC Glucose Calcium AST ALT C-Reactive Protein Total Protein Albumin Triglycerides Ur Specific [place] Urine WBC (Auto) 9.0 H Urine Creatinine 47.2 H Urine Total Protein 25 H Lymph Enumerat CD4/CD8 % CD3 Cells Absolute CD3 Count % CD4 Cells Absolute CD4 Count % CD8 Cells Absolute CD8 Count Absolute CD19 Count HIV DNA Qual (PCR) HIV-1 RNA PCR copies/ml HIV-1 RNA (PCR) log Miscellaneous Test 06/24/18 06/24/18 06/25/18 Unknown 23:59 04:36 WBC RBC Hgb Hct MCV RDW Seg Neuts % (Manual) Lymphocytes % (Manual) Seg Neutrophils # Man Abs Lymphs (Manual) Lymphocytes # (Manual) PT 15.6 H INR 1.17 H D-Dimer POC ABG pH 7.200 L POC ABG pCO2 65.3 H POC ABG pO2 Sodium Potassium Chloride Carbon Dioxide BUN Creatinine Glucose POC Glucose 233 H Calcium AST ALT C-Reactive Protein Total Protein Albumin Triglycerides Ur Specific [place] Urine WBC (Auto) Urine Creatinine Urine Total Protein Lymph Enumerat CD4/CD8 % CD3 Cells Absolute CD3 Count % CD4 Cells Absolute CD4 Count % CD8 Cells Absolute CD8 Count Absolute CD19 Count HIV DNA Qual (PCR) HIV-1 RNA PCR copies/ml HIV-1 RNA (PCR) log Miscellaneous Test 06/25/18 06/25/18 06/25/18 05:29 11:12 11:40 WBC RBC 2.67 L Hgb 8.5 L Hct 25.6 L MCV 96 H RDW 16.0 H Seg Neuts % (Manual) Lymphocytes % (Manual) Seg Neutrophils # Man Abs Lymphs (Manual) Lymphocytes # (Manual) PT INR D-Dimer POC ABG pH POC ABG pCO2 POC ABG pO2 Sodium Potassium Chloride Carbon Dioxide BUN Creatinine Glucose POC Glucose 212 H 244 H Calcium AST ALT C-Reactive Protein Total Protein Albumin Triglycerides Ur Specific [place] Urine WBC (Auto) Urine Creatinine Urine Total Protein Lymph Enumerat CD4/CD8 % CD3 Cells Absolute CD3 Count % CD4 Cells Absolute CD4 Count % CD8 Cells Absolute CD8 Count Absolute CD19 Count HIV DNA Qual (PCR) HIV-1 RNA PCR copies/ml HIV-1 RNA (PCR) log Miscellaneous Test 06/25/18 06/25/18 06/25/18 11:40 17:18 18:08 WBC RBC Hgb Hct MCV RDW Seg Neuts % (Manual) Lymphocytes % (Manual) Seg Neutrophils # Man Abs Lymphs (Manual) Lymphocytes # (Manual) PT INR D-Dimer POC ABG pH 7.206 L POC ABG pCO2 68.1 H POC ABG pO2 Sodium Potassium 5.8 H Chloride Carbon Dioxide BUN 48 H Creatinine 2.1 H Glucose 293 H POC Glucose 264 H Calcium 7.5 L AST ALT C-Reactive Protein Total Protein Albumin Triglycerides Ur Specific [place] Urine WBC (Auto) Urine Creatinine Urine Total Protein Lymph Enumerat CD4/CD8 % CD3 Cells Absolute CD3 Count % CD4 Cells Absolute CD4 Count % CD8 Cells Absolute CD8 Count Absolute CD19 Count HIV DNA Qual (PCR) HIV-1 RNA PCR copies/ml HIV-1 RNA (PCR) log Miscellaneous Test 06/25/18 06/25/18 06/26/18 21:20 23:59 05:10 WBC RBC Hgb Hct MCV RDW Seg Neuts % (Manual) Lymphocytes % (Manual) Seg Neutrophils # Man Abs Lymphs (Manual) Lymphocytes # (Manual) PT INR D-Dimer POC ABG pH 7.220 L POC ABG pCO2 65.0 H POC ABG pO2 71 L Sodium Potassium Chloride Carbon Dioxide BUN Creatinine Glucose POC Glucose 231 H 259 H Calcium AST ALT C-Reactive Protein Total Protein Albumin Triglycerides Ur Specific [place] Urine WBC (Auto) Urine Creatinine Urine Total Protein Lymph Enumerat CD4/CD8 % CD3 Cells Absolute CD3 Count % CD4 Cells Absolute CD4 Count % CD8 Cells Absolute CD8 Count Absolute CD19 Count HIV DNA Qual (PCR) HIV-1 RNA PCR copies/ml HIV-1 RNA (PCR) log Miscellaneous Test 06/26/18 06/26/18 06/26/18 05:29 07:25 07:25 WBC 12.0 H RBC 2.69 L Hgb 8.2 L Hct 25.5 L MCV 95 H RDW 15.7 H Seg Neuts % (Manual) Lymphocytes % (Manual) Seg Neutrophils # Man Abs Lymphs (Manual) Lymphocytes # (Manual) PT INR D-Dimer POC ABG pH 7.240 L POC ABG pCO2 67.6 H POC ABG pO2 106 H Sodium Potassium 5.2 H Chloride Carbon Dioxide BUN 58 H Creatinine 1.9 H Glucose 219 H POC Glucose Calcium 7.9 L AST ALT C-Reactive Protein Total Protein Albumin Triglycerides Ur Specific [place] Urine WBC (Auto) Urine Creatinine Urine Total Protein Lymph Enumerat CD4/CD8 % CD3 Cells Absolute CD3 Count % CD4 Cells Absolute CD4 Count % CD8 Cells Absolute CD8 Count Absolute CD19 Count HIV DNA Qual (PCR) HIV-1 RNA PCR copies/ml HIV-1 RNA (PCR) log Miscellaneous Test 06/26/18 06/26/18 06/26/18 07:25 12:49 17:42 WBC RBC Hgb Hct MCV RDW Seg Neuts % (Manual) Lymphocytes % (Manual) Seg Neutrophils # Man Abs Lymphs (Manual) Lymphocytes # (Manual) PT INR D-Dimer POC ABG pH 7.178 L POC ABG pCO2 73.6 H POC ABG pO2 77 L Sodium Potassium Chloride Carbon Dioxide BUN Creatinine Glucose POC Glucose 276 H Calcium AST ALT C-Reactive Protein Total Protein Albumin Triglycerides 174 H Ur Specific [place] Urine WBC (Auto) Urine Creatinine Urine Total Protein Lymph Enumerat CD4/CD8 % CD3 Cells Absolute CD3 Count % CD4 Cells Absolute CD4 Count % CD8 Cells Absolute CD8 Count Absolute CD19 Count HIV DNA Qual (PCR) HIV-1 RNA PCR copies/ml HIV-1 RNA (PCR) log Miscellaneous Test 06/26/18 06/26/18 06/26/18 18:25 21:24 23:22 WBC RBC Hgb Hct MCV RDW Seg Neuts % (Manual) Lymphocytes % (Manual) Seg Neutrophils # Man Abs Lymphs (Manual) Lymphocytes # (Manual) PT INR D-Dimer POC ABG pH 7.152 L POC ABG pCO2 80.6 H POC ABG pO2 Sodium Potassium Chloride Carbon Dioxide BUN Creatinine Glucose POC Glucose 304 H 282 H Calcium AST ALT C-Reactive Protein Total Protein Albumin Triglycerides Ur Specific [place] Urine WBC (Auto) Urine Creatinine Urine Total Protein Lymph Enumerat CD4/CD8 % CD3 Cells Absolute CD3 Count % CD4 Cells Absolute CD4 Count % CD8 Cells Absolute CD8 Count Absolute CD19 Count HIV DNA Qual (PCR) HIV-1 RNA PCR copies/ml HIV-1 RNA (PCR) log Miscellaneous Test 06/27/18 06/27/18 06/27/18 04:05 05:15 05:15 WBC RBC 2.41 L Hgb 7.6 L Hct 22.4 L MCV RDW Seg Neuts % (Manual) Lymphocytes % (Manual) Seg Neutrophils # Man Abs Lymphs (Manual) Lymphocytes # (Manual) PT INR D-Dimer POC ABG pH 7.266 L POC ABG pCO2 62.8 H POC ABG pO2 Sodium Potassium 5.5 H Chloride Carbon Dioxide BUN 73 H Creatinine 2.1 H Glucose 211 H POC Glucose Calcium 7.7 L AST ALT C-Reactive Protein Total Protein Albumin Triglycerides Ur Specific [place] Urine WBC (Auto) Urine Creatinine Urine Total Protein Lymph Enumerat CD4/CD8 % CD3 Cells Absolute CD3 Count % CD4 Cells Absolute CD4 Count % CD8 Cells Absolute CD8 Count Absolute CD19 Count HIV DNA Qual (PCR) HIV-1 RNA PCR copies/ml HIV-1 RNA (PCR) log Miscellaneous Test 06/27/18 06/27/18 06/27/18 05:52 13:10 16:12 WBC RBC Hgb Hct MCV RDW Seg Neuts % (Manual) Lymphocytes % (Manual) Seg Neutrophils # Man Abs Lymphs (Manual) Lymphocytes # (Manual) PT INR D-Dimer POC ABG pH POC ABG pCO2 POC ABG pO2 Sodium Potassium Chloride Carbon Dioxide BUN Creatinine Glucose POC Glucose 198 H 238 H 174 H Calcium AST ALT C-Reactive Protein Total Protein Albumin Triglycerides Ur Specific [place] Urine WBC (Auto) Urine Creatinine Urine Total Protein Lymph Enumerat CD4/CD8 % CD3 Cells Absolute CD3 Count % CD4 Cells Absolute CD4 Count % CD8 Cells Absolute CD8 Count Absolute CD19 Count HIV DNA Qual (PCR) HIV-1 RNA PCR copies/ml HIV-1 RNA (PCR) log Miscellaneous Test 06/27/18 06/27/18 06/28/18 17:51 23:22 04:36 WBC RBC Hgb Hct MCV RDW Seg Neuts % (Manual) Lymphocytes % (Manual) Seg Neutrophils # Man Abs Lymphs (Manual) Lymphocytes # (Manual) PT INR D-Dimer POC ABG pH 7.257 L POC ABG pCO2 68.8 H POC ABG pO2 Sodium Potassium Chloride Carbon Dioxide BUN Creatinine Glucose POC Glucose 162 H 171 H Calcium AST ALT C-Reactive Protein Total Protein Albumin Triglycerides Ur Specific [place] Urine WBC (Auto) Urine Creatinine Urine Total Protein Lymph Enumerat CD4/CD8 % CD3 Cells Absolute CD3 Count % CD4 Cells Absolute CD4 Count % CD8 Cells Absolute CD8 Count Absolute CD19 Count HIV DNA Qual (PCR) HIV-1 RNA PCR copies/ml HIV-1 RNA (PCR) log Miscellaneous Test 06/28/18 06/28/18 04:54 05:10 WBC RBC Hgb Hct MCV RDW Seg Neuts % (Manual) Lymphocytes % (Manual) Seg Neutrophils # Man Abs Lymphs (Manual) Lymphocytes # (Manual) PT INR D-Dimer POC ABG pH POC ABG pCO2 POC ABG pO2 Sodium Potassium Chloride Carbon Dioxide BUN 93 H Creatinine 2.4 H Glucose 186 H POC Glucose 193 H Calcium 8.3 L AST ALT C-Reactive Protein Total Protein Albumin Triglycerides Ur Specific [place] Urine WBC (Auto) Urine Creatinine Urine Total Protein Lymph Enumerat CD4/CD8 % CD3 Cells Absolute CD3 Count % CD4 Cells Absolute CD4 Count % CD8 Cells Absolute CD8 Count Absolute CD19 Count HIV DNA Qual (PCR) HIV-1 RNA PCR copies/ml HIV-1 RNA (PCR) log Miscellaneous Test Allied health notes reviewed: nursing
[2018-06-28] MEDS: SODIUM CHLORIDE FLUSH SYRINGE 10 ML IV SCH ×2 (10:00→22:19)
[2018-06-28] MEDS: LANTUS SUB-Q SCH (10:00)
[2018-06-28] MEDS: PEPCID PO SCH ×2 (10:04→22:18)
[2018-06-28] MEDS: SOLU-Medrol IV SCH ×2 (10:05→22:18)
--- NOTE | 2018-06-28 10:08 | Progress Note ---
Assessment and Plan Assessment and plan: Patient is 32-year-old man with hypertension comes emergency room with complaints of shortness of breath, cough for 3days. He was found to have extensive bilateral pneumonia, placed on BiPAP but he failed. The patient had to be intubated. 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 DFA showed rare PJP * Patient has been treated for bilateral pneumonia secondary to above-mentioned organisms * He also developed acute kidney injury likely secondary to Multifactorial etiology in setting of pre-renal injury, ATN secondary sepsis, contrast exposure, voriconazole, bactrim/antibiotic exposure. * Echocardiogram shows an EF of 55-60% with moderate pulmonary hypertension ARDS Acute respiratory failure with hypoxia requiring full mechanical ventilatory support Sepsis secondary to bilateral pneumonia Excessive bilateral pneumonia HIV/AIDS Hyponatremia Epixtasis JENNIFER secondary to Multifactorial in setting of pre-renal injury, ATN secondary sepsis, contrast exposure, voriconazole, bactrim/antibiotic exposure. Severe metabolic acidosis shock liver-Improving Pulmonary hypertension Hyperkalemia Plan of care Gave kayexalate, Insulin for hyperkalemia Continue full ventilatory support as directed by mine exploration engineer Bacteriology Research Assistant and infectious disease input noted antibiotics and antifungal agents being adjusted for renal dose Continue antibiotics/ antifungal as recommended by ID fungal culture ongoing. Since patient is from [place] ECHO ordered and pending CT chest when stable VAP precautions agree with continuation of Tamiflu till flu PCR is also noted. Awaiting family to assist with patient's medical history and any home medications DVT and GI prophylaxis Hyperkalemia improving Case discussed with nursing staff. No family present Poor prognosis The high probability of a clinically significant, sudden or life threatening deterioration of the [Pulmonary] system(s) required my full and direct attention, intervention and personal management. The aggregate critical care time was [30] minutes. This time is in addition to time spent performing reported procedures but includes the following: [x] Data Review and interpretation [x] Patient assessment and monitoring of vital signs [x] Documentation [x] Medication orders and management History Interval history: Patient remains intubated, Still having Fever, temp 100. this morning Hospitalist Physical - Physical exam Narrative exam: GEN: Intubated, HEENT: Normocephalic, atraumatic, Neck: supple, No JVD Lungs: Bilateral crackles, no wheeze Heart:S1 and S2 regular, no murmurs, rubs or gallop, Abd:soft, non tender, non distended, normal bowel sounds Ext: No edema, no clubbing or cyanosis Neuro: Intubated, sedated - Constitutional Vitals: Temp Pulse Resp BP Pulse Ox 98.8 F 116 H 35 H 139/76 85 06/28/18 08:00 06/28/18 09:21 06/28/18 09:21 06/28/18 09:21 06/28/18 09:21 General appearance: Present: no acute distress Results - Labs CBC & Chem 7: 06/27/18 05:15 06/28/18 04:54 Labs: Laboratory Last Values WBC 9.9 K/mm3 (4.5-11.0) 06/27/18 05:15 RBC 2.41 M/mm3 (3.65-5.03) L 06/27/18 05:15 Hgb 7.6 gm/dl (11.8-15.2) L 06/27/18 05:15 Hct 22.4 % (35.5-45.6) L 06/27/18 05:15 MCV 93 fl (84-94) 06/27/18 05:15 MCH 31 pg (28-32) 06/27/18 05:15 MCHC 34 % (32-34) 06/27/18 05:15 RDW 14.9 % (13.2-15.2) 06/27/18 05:15 Plt Count 174 K/mm3 (140-440) 06/27/18 05:15 Add Manual Diff Complete 06/20/18 08:13 Total Counted 100 06/20/18 08:13 Seg Neutrophils % Tube Coremaker 06/20/18 08:13 Seg Neuts % (Manual) 99.0 % (40.0-70.0) H 06/20/18 08:13 Band Neutrophils % 0 % 06/20/18 08:13 Lymphocytes % (Manual) 1.0 % (13.4-35.0) L 06/20/18 08:13 Reactive Lymphs % (Man) 0 % 06/20/18 08:13 Monocytes % (Manual) 0 % (0.0-7.3) 06/20/18 08:13 Eosinophils % (Manual) 0 % (0.0-4.3) 06/20/18 08:13 Basophils % (Manual) 0 % (0.0-1.8) 06/20/18 08:13 Metamyelocytes % 0 % 06/20/18 08:13 Myelocytes % 0 % 06/20/18 08:13 Promyelocytes % 0 % 06/20/18 08:13 Blast Cells % 0 % 06/20/18 08:13 Nucleated RBC % Not Reportable 06/20/18 08:13 Seg Neutrophils # Man 11.7 K/mm3 (1.8-7.7) H 06/20/18 08:13 Band Neutrophils # 0.0 K/mm3 06/20/18 08:13 Abs Lymphs (Manual) 409 cells/uL (850-3900) L 06/19/18 07:11 Lymphocytes # (Manual) 0.1 K/mm3 (1.2-5.4) L 06/20/18 08:13 Abs React Lymphs (Man) 0.0 K/mm3 06/20/18 08:13 Monocytes # (Manual) 0.0 K/mm3 (0.0-0.8) 06/20/18 08:13 Eosinophils # (Manual) 0.0 K/mm3 (0.0-0.4) 06/20/18 08:13 Basophils # (Manual) 0.0 K/mm3 (0.0-0.1) 06/20/18 08:13 Metamyelocytes # 0.0 K/mm3 06/20/18 08:13 Myelocytes # 0.0 K/mm3 06/20/18 08:13 Promyelocytes # 0.0 K/mm3 06/20/18 08:13 Blast Cells # 0.0 K/mm3 06/20/18 08:13 WBC Morphology Not Reportable 06/20/18 08:13 Hypersegmented Neuts Not Reportable 06/20/18 08:13 Hyposegmented Neuts Not Reportable 06/20/18 08:13 Hypogranular Neuts Not Reportable 06/20/18 08:13 Smudge Cells Not Reportable 06/20/18 08:13 Toxic Granulation Not Reportable 06/20/18 08:13 Toxic Vacuolation Not Reportable 06/20/18 08:13 Dohle Bodies Not Reportable 06/20/18 08:13 Pelger-Huet Anomaly Not Reportable 06/20/18 08:13 Loretta Rods Not Reportable 06/20/18 08:13 Platelet Estimate Consistent w auto 06/20/18 08:13 Clumped Platelets Not Reportable 06/20/18 08:13 Plt Clumps, EDTA Not Reportable 06/20/18 08:13 Large Platelets Not Reportable 06/20/18 08:13 Giant Platelets Not Reportable 06/20/18 08:13 Platelet Satelliting Not Reportable 06/20/18 08:13 Plt Morphology Comment Not Reportable 06/20/18 08:13 RBC Morphology Not Reportable 06/20/18 08:13 Dimorphic RBCs Not Reportable 06/20/18 08:13 Polychromasia Not Reportable 06/20/18 08:13 Hypochromasia Not Reportable 06/20/18 08:13 Poikilocytosis 1+ 06/20/18 08:13 Anisocytosis 1+ 06/20/18 08:13 Microcytosis Not Reportable 06/20/18 08:13 Macrocytosis Not Reportable 06/20/18 08:13 Spherocytes Not Reportable 06/20/18 08:13 Pappenheimer Bodies Not Reportable 06/20/18 08:13 Sickle Cells Not Reportable 06/20/18 08:13 Target Cells Not Reportable 06/20/18 08:13 Tear Drop Cells Not Reportable 06/20/18 08:13 Ovalocytes 1+ 06/20/18 08:13 Helmet Cells Not Reportable 06/20/18 08:13 [place] Bodies Not Reportable 06/20/18 08:13 Gilbert Rings Not Reportable 06/20/18 08:13 Lillian Cells Not Reportable 06/20/18 08:13 Bite Cells Not Reportable 06/20/18 08:13 Crenated Cell Not Reportable 06/20/18 08:13 Elliptocytes Not Reportable 06/20/18 08:13 Acanthocytes (Spur) Not Reportable 06/20/18 08:13 Rouleaux Not Reportable 06/20/18 08:13 Hemoglobin C Crystals Not Reportable 06/20/18 08:13 Schistocytes Not Reportable 06/20/18 08:13 Malaria parasites Not Reportable 06/20/18 08:13 Jesus Bodies Not Reportable 06/20/18 08:13 Hem Pathologist Commnt No 06/20/18 08:13 PT 15.6 Sec. (12.2-14.9) H 06/24/18 Unknown INR 1.17 (0.87-1.13) H 06/24/18 Unknown APTT 28.7 Sec. (24.2-36.6) 06/19/18 Unknown Fibrinogen 405 mg/dl (211-480) 06/24/18 Unknown D-Dimer 8449.09 ng/mlDDU (0-234) H 06/19/18 Unknown POC ABG pH 7.257 (7.35-7.45) L 06/28/18 04:36 POC ABG pCO2 68.8 (35-45) H 06/28/18 04:36 POC ABG pO2 84 (80-105) 06/28/18 04:36 POC ABG HCO3 30.6 06/28/18 04:36 POC ABG Total CO2 33 06/28/18 04:36 POC ABG O2 Sat 94 06/28/18 04:36 POC ABG Base Excess 4 06/28/18 04:36 FiO2 65 % 06/28/18 04:36 Sodium 139 mmol/L (137-145) 06/28/18 04:54 Potassium 5.0 mmol/L (3.6-5.0) 06/28/18 04:54 Chloride 98.6 mmol/L (98-107) 06/28/18 04:54 Carbon Dioxide 28 mmol/L (22-30) 06/28/18 04:54 Anion Gap 17 mmol/L 06/28/18 04:54 BUN 93 mg/dL (9-20) H 06/28/18 04:54 Creatinine 2.4 mg/dL (0.8-1.5) H 06/28/18 04:54 Estimated GFR 32 ml/min 06/28/18 04:54 BUN/Creatinine Ratio 39 % 06/28/18 04:54 Glucose 186 mg/dL (75-100) H 06/28/18 04:54 POC Glucose 193 (70-105) H 06/28/18 05:10 Lactic Acid 1.70 mmol/L (0.7-2.0) 06/19/18 05:26 Calcium 8.3 mg/dL (8.4-10.2) L 06/28/18 04:54 Total Bilirubin < 0.20 mg/dL (0.1-1.2) 06/23/18 05:11 Direct Bilirubin < 0.2 mg/dL (0-0.2) 06/19/18 Unknown Indirect Bilirubin 0.2 mg/dL 06/19/18 Unknown AST 63 units/L (5-40) H 06/23/18 05:11 ALT 297 units/L (7-56) H 06/23/18 05:11 Alkaline Phosphatase 127 units/L (35-129) 06/23/18 05:11 Troponin T < 0.010 ng/mL (0.00-0.029) 06/19/18 Unknown C-Reactive Protein 1.60 mg/dL (0.00-1.30) H 06/23/18 18:40 NT-Pro-B Natriuret Pep 226.4 pg/mL (0-450) 06/19/18 Unknown Total Protein 5.3 g/dL (6.3-8.2) L 06/23/18 05:11 Albumin 2.4 g/dL (3.9-5) L 06/23/18 05:11 Albumin/Globulin Ratio 0.8 % 06/23/18 05:11 Triglycerides 174 mg/dL (2-149) H 06/26/18 07:25 Urine Color Yellow (Yellow) 06/24/18 22:45 Urine Turbidity Slightly-cloudy (Clear) 06/24/18 22:45 Urine pH 5.0 (5.0-7.0) 06/24/18 22:45 Ur Specific [place] 1.014 (1.003-1.030) 06/24/18 22:45 Urine Protein <15 mg/dl mg/dL (Negative) 06/24/18 22:45 Urine Glucose (UA) Neg mg/dL (Negative) 06/24/18 22:45 Urine Ketones Neg mg/dL (Negative) 06/24/18 22:45 Urine Blood Neg (Negative) 06/24/18 22:45 Urine Nitrite Neg (Negative) 06/24/18 22:45 Urine Bilirubin Neg (Negative) 06/24/18 22:45 Urine Urobilinogen < 2.0 mg/dL (<2.0) 06/24/18 22:45 Ur Leukocyte Esterase Neg (Negative) 06/24/18 22:45 Urine WBC (Auto) 9.0 /HPF (0.0-6.0) H 06/24/18 22:45 Urine RBC (Auto) 19.0 /HPF (0.0-6.0) 06/24/18 22:45 U Epithel Cells (Auto) < 1.0 /HPF (0-13.0) 06/19/18 08:07 Urine Bacteria (Auto) 1+ /HPF (Negative) 06/24/18 22:45 Hyaline Casts 1 /LPF 06/24/18 22:45 Urine Mucus Few /HPF 06/19/18 08:07 Urine Yeast (Budding) 1+ /HPF 06/24/18 22:45 Urine Eosinophils None seen (None Seen) 06/24/18 22:45 Urine Creatinine 47.2 mg/dL (0.1-20.0) H 06/24/18 22:45 Urine Sodium 40 mmol/L 06/24/18 22:45 Urine Total Protein 25 mg/dL (5-11.8) H 06/24/18 22:45 Random Vancomycin 6.5 ug/mL (0-40.0) 06/25/18 11:40 Urine Opiates Screen Presumptive negative 06/19/18 08:06 Urine Methadone Screen Presumptive negative 06/19/18 08:06 Ur Barbiturates Screen Presumptive negative 06/19/18 08:06 Ur Phencyclidine Scrn Presumptive negative 06/19/18 08:06 Ur Amphetamines Screen Presumptive negative 06/19/18 08:06 U Benzodiazepines Scrn Presumptive positive 06/19/18 08:06 Urine Cocaine Screen Presumptive negative 06/19/18 08:06 U Marijuana (THC) Screen Presumptive negative 06/19/18 08:06 Drugs of Abuse Note Disclamer 06/19/18 08:06 Lymph Enumerat CD4/CD8 0.05 (0.86-5.00) L 06/19/18 07:11 % CD3 Cells 45 % (57-85) L 06/19/18 07:11 Absolute CD3 Count 185 cells/uL (840-3060) L 06/19/18 07:11 % CD4 Cells 2 % (30-61) L 06/19/18 07:11 Absolute CD4 Count 10 cells/uL (490-1740) L 06/19/18 07:11 % CD8 Cells 43 % (12-42) H 06/19/18 07:11 Absolute CD8 Count 167 cells/uL (180-1170) L 06/19/18 07:11 % CD19 Cells 18 % (6-29) 06/19/18 07:11 Absolute CD19 Count 79 cells/uL (110-660) L 06/19/18 07:11 CMV DNA PCR log naval aircrewman tactical helicopter/mL See scanned report 06/19/18 15:16 Hepatitis A IgM Ab Non-reactive (NonReactive) 06/21/18 04:19 Hep Bs Antigen Non-reactive (Negative) 06/21/18 04:19 Hep B Core IgM Ab Non-reactive (NonReactive) 06/21/18 04:19 Hepatitis C Antibody Non-reactive (NonReactive) 06/21/18 04:19 HIV DNA Qual (PCR) Detected (Not Detected) H 06/19/18 09:20 HIV-1 Antibody See scanned results 06/19/18 07:12 HIV-1 RNA PCR copies/ml [id number] Copies/mL H 06/19/18 15:16 HIV-1 RNA (PCR) log 6.11 Log cps/mL H 06/19/18 15:16 HIV-2 Ab (Immunoblot) See scanned results 06/19/18 07:12 HIV 1&2 Antibody Rapid Reactive (Non React) 06/19/18 07:10 HIV P24 Antigen Invalid (Non React) 06/19/18 07:10 Influenza A (Rapid) Negative (Negative) 06/19/18 Unknown Influenza A (RT-PCR) Negative (Negative) 06/21/18 12:30 Influenza B (Rapid) Negative (Negative) 06/19/18 Unknown Influenza B (RT-PCR) Negative (Negative) 06/21/18 12:30 Miscellaneous Test see below H 06/21/18 12:32 Nutrition/Malnutrition Assess - Dietary Evaluation Nutrition/Malnutrition Findings: Nutrition Notes Start: 06/19/18 14:17 Freq: Status: Active Protocol: Document 06/27/18 10:04 CP (Rec: 06/27/18 10:06 CP [id number]) Co-Sign 06/27/18 10:04 LP Nutrition Notes Initial or Follow up Brief Note Current Diagnosis Hypertension Other Pertinent Diagnosis SOB, bilateral pneumonia, HIV Current Diet TF Nepro at 50 mL/hr Labs/Tests BUN 73 Cr 2.1 BG 211 Subjective/Other Information Nepro infusing at goal rate at time of visit. Pt remains on ventilator support. Percent of energy/protein needs met: 99%/93% Nutrition Intervention Follow-Up By: 06/29/18 Additional Comments F/U: TF tolerance/renal function
[2018-06-28] MEDS: ELIQUIS PO SCH ×2 (10:54→22:18)
[2018-06-28] MEDS: ABELCET IV SCH (10:55)
[2018-06-28] MEDS: D5W IV SCH ×3 (10:55→22:19)
[2018-06-28] MEDS: BACTRIM IV SCH ×2 (11:05→22:19)
[2018-06-28] MEDS: D5W 500 ML IV PRN (11:07)
[2018-06-28] MEDS: CYTOVENE IV SCH (14:00)
[2018-06-28] MEDS: NACL 0.9% IV SCH (14:00)
[2018-06-29] MEDS: LOPRESSOR IV SCH ×3 (00:11→12:00)
[2018-06-29] MEDS: HumaLOG SUB-Q SCH ×4 (00:12→18:57)
[2018-06-29] MEDS: DIPRIVAN 10 MG/ML 1,000 MG/100 ML BOTTLE IV SCH ×3 (00:54→19:00)
[2018-06-29] MEDS: fentaNYL DRIP Premix 2,000 MCG/100 ML BAG IV SCH ×2 (01:58→19:02)
[2018-06-29] MEDS: DUONEB *Not for PRN Use IH SCH ×4 (03:02→19:37)
[2018-06-29 05:57] LABS: Mean Corpuscular HGB Conc 32 % (32-34); Mean Corpuscular Volume 95 fl (84-94); Platelet Count 127 K/mm3 (140-440); Red Blood Count 1.93 M/mm3 (3.65-5.03); Red Cell Distribution Width 15.2 % (13.2-15.2)
[2018-06-29 06:03] LABS: Hematocrit 18.2 % (35.5-45.6); Hemoglobin 5.9 gm/dl (11.8-15.2)
[2018-06-29 06:15] LABS: Calcium 8.2 mg/dL (8.4-10.2)
[2018-06-29] MEDS ORDERED: CALCIUM GLUCONATE 1,000 MG in NACL 0.9% 100 ML IV STA (07:23)
[2018-06-29] MEDS ORDERED: HumuLIN R IV STA (07:24)
[2018-06-29] MEDS ORDERED: D50W (25GM) Syringe IV ONE ×2 (08:00→10:48)
[2018-06-29 08:24] LABS: Hematocrit 18.4 % (35.5-45.6)
--- NOTE | 2018-06-29 08:30 | Progress Note ---
Assessment and Plan Assessment and plan: Patient is 32-year-old man with hypertension comes emergency room with complaints of shortness of breath, cough for 3days. He was found to have extensive bilateral pneumonia, placed on BiPAP but he failed. The patient had to be intubated. 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 DFA showed rare PJP * Patient has been treated for bilateral pneumonia secondary to above-mentioned organisms * He also developed acute kidney injury likely secondary to Multifactorial etiology in setting of pre-renal injury, ATN secondary sepsis, contrast exposure, voriconazole, bactrim/antibiotic exposure. * Echocardiogram shows an EF of 55-60% with moderate pulmonary hypertension ARDS Acute respiratory failure with hypoxia requiring full mechanical ventilatory support Sepsis secondary to bilateral pneumonia Excessive bilateral pneumonia HIV/AIDS Hyponatremia Epixtasis JENNIFER secondary to Multifactorial in setting of pre-renal injury, ATN secondary sepsis, contrast exposure, voriconazole, bactrim/antibiotic exposure. JENNIFER worsening Severe metabolic acidosis shock liver-Improving Pulmonary hypertension Hyperkalemia Plan of care Give kayexalate, Insulin for hyperkalemia Continue full ventilatory support as directed by treater Corporate Staff Accountant and infectious disease input noted antibiotics and antifungal agents being adjusted for renal dose Continue antibiotics/ antifungal as recommended by ID fungal culture ongoing. Since patient is from [place] ECHO ordered and pending CT chest when stable VAP precautions agree with continuation of Tamiflu till flu PCR is also noted. Awaiting family to assist with patient's medical history and any home medications DVT and GI prophylaxis Hyperkalemia. Give Insulin, kayexalate, Calcium. Will need hemodialysis. Discussed with Nephrology Case discussed with nursing staff. No family present Poor prognosis The high probability of a clinically significant, sudden or life threatening deterioration of the [Pulmonary] system(s) required my full and direct attention, intervention and personal management. The aggregate critical care time was [32] minutes. This time is in addition to time spent performing reported procedures but includes the following: [x] Data Review and interpretation [x] Patient assessment and monitoring of vital signs [x] Documentation [x] Medication orders and management History Interval history: Patient remains intubated, Still having Fever, temp 100.4 this morning Hemoglobin 5.9 Hospitalist Physical - Physical exam Narrative exam: GEN: Intubated, HEENT: Normocephalic, atraumatic, Neck: supple, No JVD Lungs: Bilateral crackles, no wheeze Heart:S1 and S2 regular, no murmurs, rubs or gallop, Abd:soft, non tender, non distended, normal bowel sounds Ext: No edema, no clubbing or cyanosis Neuro: Intubated, sedated - Constitutional Vitals: Temp Pulse Resp BP Pulse Ox 98.7 F 110 H 33 H 95/42 95 06/29/18 08:00 06/29/18 07:00 06/29/18 07:00 06/29/18 07:00 06/29/18 07:00 General appearance: Present: no acute distress Results - Labs CBC & Chem 7: 06/29/18 08:07 06/29/18 05:15 Labs: Laboratory Last Values WBC 12.3 K/mm3 (4.5-11.0) H 06/29/18 05:15 RBC 1.93 M/mm3 (3.65-5.03) L 06/29/18 05:15 Hgb 6.0 gm/dl (11.8-15.2) L 06/29/18 08:07 Hct 18.4 % (35.5-45.6) L* 06/29/18 08:07 MCV 95 fl (84-94) H 06/29/18 05:15 MCH 31 pg (28-32) 06/29/18 05:15 MCHC 32 % (32-34) 06/29/18 05:15 RDW 15.2 % (13.2-15.2) 06/29/18 05:15 Plt Count 127 K/mm3 (140-440) L 06/29/18 05:15 Add Manual Diff Complete 06/20/18 08:13 Total Counted 100 06/20/18 08:13 Seg Neutrophils % Gas Torch [place] 06/20/18 08:13 Seg Neuts % (Manual) 99.0 % (40.0-70.0) H 06/20/18 08:13 Band Neutrophils % 0 % 06/20/18 08:13 Lymphocytes % (Manual) 1.0 % (13.4-35.0) L 06/20/18 08:13 Reactive Lymphs % (Man) 0 % 06/20/18 08:13 Monocytes % (Manual) 0 % (0.0-7.3) 06/20/18 08:13 Eosinophils % (Manual) 0 % (0.0-4.3) 06/20/18 08:13 Basophils % (Manual) 0 % (0.0-1.8) 06/20/18 08:13 Metamyelocytes % 0 % 06/20/18 08:13 Myelocytes % 0 % 06/20/18 08:13 Promyelocytes % 0 % 06/20/18 08:13 Blast Cells % 0 % 06/20/18 08:13 Nucleated RBC % Not Reportable 06/20/18 08:13 Seg Neutrophils # Man 11.7 K/mm3 (1.8-7.7) H 06/20/18 08:13 Band Neutrophils # 0.0 K/mm3 06/20/18 08:13 Abs Lymphs (Manual) 409 cells/uL (850-3900) L 06/19/18 07:11 Lymphocytes # (Manual) 0.1 K/mm3 (1.2-5.4) L 06/20/18 08:13 Abs React Lymphs (Man) 0.0 K/mm3 06/20/18 08:13 Monocytes # (Manual) 0.0 K/mm3 (0.0-0.8) 06/20/18 08:13 Eosinophils # (Manual) 0.0 K/mm3 (0.0-0.4) 06/20/18 08:13 Basophils # (Manual) 0.0 K/mm3 (0.0-0.1) 06/20/18 08:13 Metamyelocytes # 0.0 K/mm3 06/20/18 08:13 Myelocytes # 0.0 K/mm3 06/20/18 08:13 Promyelocytes # 0.0 K/mm3 06/20/18 08:13 Blast Cells # 0.0 K/mm3 06/20/18 08:13 WBC Morphology Not Reportable 06/20/18 08:13 Hypersegmented Neuts Not Reportable 06/20/18 08:13 Hyposegmented Neuts Not Reportable 06/20/18 08:13 Hypogranular Neuts Not Reportable 06/20/18 08:13 Smudge Cells Not Reportable 06/20/18 08:13 Toxic Granulation Not Reportable 06/20/18 08:13 Toxic Vacuolation Not Reportable 06/20/18 08:13 Dohle Bodies Not Reportable 06/20/18 08:13 Pelger-Huet Anomaly Not Reportable 06/20/18 08:13 Loretta Rods Not Reportable 06/20/18 08:13 Platelet Estimate Consistent w auto 06/20/18 08:13 Clumped Platelets Not Reportable 06/20/18 08:13 Plt Clumps, EDTA Not Reportable 06/20/18 08:13 Large Platelets Not Reportable 06/20/18 08:13 Giant Platelets Not Reportable 06/20/18 08:13 Platelet Satelliting Not Reportable 06/20/18 08:13 Plt Morphology Comment Not Reportable 06/20/18 08:13 RBC Morphology Not Reportable 06/20/18 08:13 Dimorphic RBCs Not Reportable 06/20/18 08:13 Polychromasia Not Reportable 06/20/18 08:13 Hypochromasia Not Reportable 06/20/18 08:13 Poikilocytosis 1+ 06/20/18 08:13 Anisocytosis 1+ 06/20/18 08:13 Microcytosis Not Reportable 06/20/18 08:13 Macrocytosis Not Reportable 06/20/18 08:13 Spherocytes Not Reportable 06/20/18 08:13 Pappenheimer Bodies Not Reportable 06/20/18 08:13 Sickle Cells Not Reportable 06/20/18 08:13 Target Cells Not Reportable 06/20/18 08:13 Tear Drop Cells Not Reportable 06/20/18 08:13 Ovalocytes 1+ 06/20/18 08:13 Helmet Cells Not Reportable 06/20/18 08:13 [place] Bodies Not Reportable 06/20/18 08:13 Moody Rings Not Reportable 06/20/18 08:13 [place] Cells Not Reportable 06/20/18 08:13 Bite Cells Not Reportable 06/20/18 08:13 Crenated Cell Not Reportable 06/20/18 08:13 Elliptocytes Not Reportable 06/20/18 08:13 Acanthocytes (Spur) Not Reportable 06/20/18 08:13 Rouleaux Not Reportable 06/20/18 08:13 Hemoglobin C Crystals Not Reportable 06/20/18 08:13 Schistocytes Not Reportable 06/20/18 08:13 Malaria parasites Not Reportable 06/20/18 08:13 Jesus Bodies Not Reportable 06/20/18 08:13 Hem Pathologist Commnt No 06/20/18 08:13 PT 15.6 Sec. (12.2-14.9) H 06/24/18 Unknown INR 1.17 (0.87-1.13) H 06/24/18 Unknown APTT 28.7 Sec. (24.2-36.6) 06/19/18 Unknown Fibrinogen 405 mg/dl (211-480) 06/24/18 Unknown D-Dimer 8449.09 ng/mlDDU (0-234) H 06/19/18 Unknown POC ABG pH 7.158 (7.35-7.45) L 06/29/18 04:38 POC ABG pCO2 76.6 (35-45) H 06/29/18 04:38 POC ABG pO2 97 (80-105) 06/29/18 04:38 POC ABG HCO3 27.2 06/29/18 04:38 POC ABG Total CO2 29 06/29/18 04:38 POC ABG O2 Sat 95 06/29/18 04:38 POC ABG Base Excess -2 06/29/18 04:38 FiO2 100 % 06/29/18 04:38 Sodium 136 mmol/L (137-145) L 06/29/18 05:15 Potassium 5.9 mmol/L (3.6-5.0) H 06/29/18 05:15 Chloride 94.3 mmol/L (98-107) L 06/29/18 05:15 Carbon Dioxide 26 mmol/L (22-30) 06/29/18 05:15 Anion Gap 22 mmol/L 06/29/18 05:15 BUN 139 mg/dL (9-20) H 06/29/18 05:15 Creatinine 4.2 mg/dL (0.8-1.5) H D 03/01/19 05:15 Estimated GFR 17 ml/min 06/29/18 05:15 BUN/Creatinine Ratio 33 % 06/29/18 05:15 Glucose 157 mg/dL (75-100) H 06/29/18 05:15 POC Glucose 150 (70-105) H 06/29/18 05:32 Lactic Acid 1.70 mmol/L (0.7-2.0) 06/19/18 05:26 Calcium 8.2 mg/dL (8.4-10.2) L 06/29/18 05:15 Total Bilirubin < 0.20 mg/dL (0.1-1.2) 06/23/18 05:11 Direct Bilirubin < 0.2 mg/dL (0-0.2) 06/19/18 Unknown Indirect Bilirubin 0.2 mg/dL 06/19/18 Unknown AST 63 units/L (5-40) H 06/23/18 05:11 ALT 297 units/L (7-56) H 06/23/18 05:11 Alkaline Phosphatase 127 units/L (35-129) 06/23/18 05:11 Troponin T < 0.010 ng/mL (0.00-0.029) 06/19/18 Unknown C-Reactive Protein 1.60 mg/dL (0.00-1.30) H 06/23/18 18:40 NT-Pro-B Natriuret Pep 226.4 pg/mL (0-450) 06/19/18 Unknown Total Protein 5.3 g/dL (6.3-8.2) L 06/23/18 05:11 Albumin 2.4 g/dL (3.9-5) L 06/23/18 05:11 Albumin/Globulin Ratio 0.8 % 06/23/18 05:11 Triglycerides 174 mg/dL (2-149) H 06/26/18 07:25 Urine Color Yellow (Yellow) 06/24/18 22:45 Urine Turbidity Slightly-cloudy (Clear) 06/24/18 22:45 Urine pH 5.0 (5.0-7.0) 06/24/18 22:45 Ur Specific [place] 1.014 (1.003-1.030) 06/24/18 22:45 Urine Protein <15 mg/dl mg/dL (Negative) 06/24/18 22:45 Urine Glucose (UA) Neg mg/dL (Negative) 06/24/18 22:45 Urine Ketones Neg mg/dL (Negative) 06/24/18 22:45 Urine Blood Neg (Negative) 06/24/18 22:45 Urine Nitrite Neg (Negative) 06/24/18 22:45 Urine Bilirubin Neg (Negative) 06/24/18 22:45 Urine Urobilinogen < 2.0 mg/dL (<2.0) 06/24/18 22:45 Ur Leukocyte Esterase Neg (Negative) 06/24/18 22:45 Urine WBC (Auto) 9.0 /HPF (0.0-6.0) H 06/24/18 22:45 Urine RBC (Auto) 19.0 /HPF (0.0-6.0) 06/24/18 22:45 U Epithel Cells (Auto) < 1.0 /HPF (0-13.0) 06/19/18 08:07 Urine Bacteria (Auto) 1+ /HPF (Negative) 06/24/18 22:45 Hyaline Casts 1 /LPF 06/24/18 22:45 Urine Mucus Few /HPF 06/19/18 08:07 Urine Yeast (Budding) 1+ /HPF 06/24/18 22:45 Urine Eosinophils None seen (None Seen) 06/24/18 22:45 Urine Creatinine 47.2 mg/dL (0.1-20.0) H 06/24/18 22:45 Urine Sodium 40 mmol/L 06/24/18 22:45 Urine Total Protein 25 mg/dL (5-11.8) H 06/24/18 22:45 Random Vancomycin 6.5 ug/mL (0-40.0) 06/25/18 11:40 Urine Opiates Screen Presumptive negative 06/19/18 08:06 Urine Methadone Screen Presumptive negative 06/19/18 08:06 Ur Barbiturates Screen Presumptive negative 06/19/18 08:06 Ur Phencyclidine Scrn Presumptive negative 06/19/18 08:06 Ur Amphetamines Screen Presumptive negative 06/19/18 08:06 U Benzodiazepines Scrn Presumptive positive 06/19/18 08:06 Urine Cocaine Screen Presumptive negative 06/19/18 08:06 U Marijuana (THC) Screen Presumptive negative 06/19/18 08:06 Drugs of Abuse Note Disclamer 06/19/18 08:06 Lymph Enumerat CD4/CD8 0.05 (0.86-5.00) L 06/19/18 07:11 % CD3 Cells 45 % (57-85) L 06/19/18 07:11 Absolute CD3 Count 185 cells/uL (840-3060) L 06/19/18 07:11 % CD4 Cells 2 % (30-61) L 06/19/18 07:11 Absolute CD4 Count 10 cells/uL (490-1740) L 06/19/18 07:11 % CD8 Cells 43 % (12-42) H 06/19/18 07:11 Absolute CD8 Count 167 cells/uL (180-1170) L 06/19/18 07:11 % CD19 Cells 18 % (6-29) 06/19/18 07:11 Absolute CD19 Count 79 cells/uL (110-660) L 06/19/18 07:11 CMV DNA PCR log microscopist/mL See scanned report 06/19/18 15:16 Hepatitis A IgM Ab Non-reactive (NonReactive) 06/21/18 04:19 Hep Bs Antigen Non-reactive (Negative) 06/21/18 04:19 Hep B Core IgM Ab Non-reactive (NonReactive) 06/21/18 04:19 Hepatitis C Antibody Non-reactive (NonReactive) 06/21/18 04:19 HIV DNA Qual (PCR) Detected (Not Detected) H 06/19/18 09:20 HIV-1 Antibody See scanned results 06/19/18 07:12 HIV-1 RNA PCR copies/ml [id number] Copies/mL H 06/19/18 15:16 HIV-1 RNA (PCR) log 6.11 Log cps/mL H 06/19/18 15:16 HIV-2 Ab (Immunoblot) See scanned results 06/19/18 07:12 HIV 1&2 Antibody Rapid Reactive (Non React) 06/19/18 07:10 HIV P24 Antigen Invalid (Non React) 06/19/18 07:10 Influenza A (Rapid) Negative (Negative) 06/19/18 Unknown Influenza A (RT-PCR) Negative (Negative) 06/21/18 12:30 Influenza B (Rapid) Negative (Negative) 06/19/18 Unknown Influenza B (RT-PCR) Negative (Negative) 06/21/18 12:30 Miscellaneous Test see below H 06/21/18 12:32 Nutrition/Malnutrition Assess - Dietary Evaluation Nutrition/Malnutrition Findings: Nutrition Notes Start: 06/19/18 14:17 Freq: Status: Active Protocol: Document 06/27/18 10:04 CP (Rec: 06/27/18 10:06 CP [id number]) Co-Sign 06/27/18 10:04 LP Nutrition Notes Initial or Follow up Brief Note Current Diagnosis Hypertension Other Pertinent Diagnosis SOB, bilateral pneumonia, HIV Current Diet TF Nepro at 50 mL/hr Labs/Tests BUN 73 Cr 2.1 BG 211 Subjective/Other Information Nepro infusing at goal rate at time of visit. Pt remains on ventilator support. Percent of energy/protein needs met: 99%/93% Nutrition Intervention Follow-Up By: 06/29/18 Additional Comments F/U: TF tolerance/renal function
--- NOTE | 2018-06-29 08:46 | Progress Note ---
Assessment and Plan - Patient Problems (1) Acute kidney failure with tubular necrosis Current Visit: Yes Status: Acute Plan to address problem: Kidney injury acute tubular necrosis of multifactorial etiology secondary to contrast exposure, medications including voriconazole and hypotension. Bactrim could also be contributing either by increasing creatinine by decreasing tubular secretion or Acute tubulo-interstitial nephritis. Kidney function is worsening and patient developing hyperkalemia. Received a dose of IV steroids yesterday. We'll need to initiate dialysis with the worsening renal indices and hyperkalemia. I called patient's next of kin, left a message for her to call me back. PHARMACY TO RENALLY DOSE ALL MEDICATIONS. AVOID EXPOSURE TO NEPHROTOXINS WHERE FEASIBLE. Follow-up electrolytes and renal function and further management depending on clinical course. (2) Hyperkalemia Current Visit: Yes Status: Acute Plan to address problem: Bactrim may be contribution to hyperkalemia. Treat hyperkalemia medically and discuss with family about initiating dialysis. (3) Acute respiratory failure with hypoxia Current Visit: Yes Status: Acute Plan to address problem: Ventilator management by pulmonary (4) Anemia Current Visit: Yes Status: Acute Plan to address problem: Being managed by soaker helper (5) AIDS (acquired immunodeficiency syndrome), CD4 <=200 Current Visit: Yes Status: Acute Plan to address problem: Continue management by infectious disease consultants (6) Bilateral pneumonia Current Visit: Yes Status: Acute Qualifiers: Pneumonia type: due to unspecified organism Lung location: unspecified part of lung Qualified Code(s): J18.9 - Pneumonia, unspecified organism Plan to address problem: Continue antibiotics per infectious disease industrial rehabilitation consultant Subjective Date of service: 06/29/18 Principal diagnosis: Acute Hypoxemic Resp Failure; AIDS / HIV positive; Severe Sepsis due to PNA Interval history: Patient seen lying in bed intubated on ventilator. Patient is not interacting. Events over the last 24 hours reviewed Objective - Exam Narrative Exam: Young male lying in bed intubated on ventilator HEENT: NCAT, ETT intact Neck: Supple, no venous distention CVS: S1S2 RRR with no murmur, rub or gallop Chest: Bilateral rhonchi Abdomen: Protuberant, soft, nontender, no organomegaly, bowel sounds are present Extremities: 1-2+ edema extremities Genitourinary deferred, muir catheter draining clear urine Skin warm and dry Neuro: Eyes open, not following commands - Vital Signs Vital signs: Vital Signs - 12hr 06/28/18 06/28/18 06/28/18 21:00 22:00 23:00 Temperature Pulse Rate 119 H 121 H 127 H Pulse Rate [ Anterior Bilateral Throughout] Pulse Rate [ From Monitor] Respiratory 34 H 28 H 30 H Rate Respiratory Rate [Anterior Bilateral Throughout] Blood Pressure 102/50 97/45 92/29 O2 Sat by Pulse 94 95 85 Oximetry 06/28/18 06/28/18 06/29/18 23:30 23:33 00:00 Temperature 99.8 F H Pulse Rate 127 H 128 H Pulse Rate [ Anterior Bilateral Throughout] Pulse Rate [ 120 H From Monitor] Respiratory 30 H Rate Respiratory Rate [Anterior Bilateral Throughout] Blood Pressure 86/33 87/33 O2 Sat by Pulse 95 94 Oximetry 06/29/18 06/29/18 06/29/18 00:11 01:00 02:00 Temperature Pulse Rate 126 H 114 H 119 H Pulse Rate [ Anterior Bilateral Throughout] Pulse Rate [ From Monitor] Respiratory 31 H 30 H Rate Respiratory Rate [Anterior Bilateral Throughout] Blood Pressure 99/42 101/39 O2 Sat by Pulse 95 95 Oximetry 06/29/18 06/29/18 06/29/18 02:50 03:00 03:05 Temperature Pulse Rate 121 H Pulse Rate [ 110 H 120 H Anterior Bilateral Throughout] Pulse Rate [ From Monitor] Respiratory 27 H Rate Respiratory 30 H 36 H Rate [Anterior Bilateral Throughout] Blood Pressure 103/43 O2 Sat by Pulse 96 Oximetry 06/29/18 06/29/18 06/29/18 03:21 04:00 04:46 Temperature 100.4 F H Pulse Rate 121 H 122 H Pulse Rate [ Anterior Bilateral Throughout] Pulse Rate [ 120 H From Monitor] Respiratory 31 H Rate Respiratory Rate [Anterior Bilateral Throughout] Blood Pressure 94/43 101/40 O2 Sat by Pulse 94 96 Oximetry 06/29/18 06/29/18 06/29/18 05:00 06:00 07:00 Temperature Pulse Rate 121 H 117 H 110 H Pulse Rate [ Anterior Bilateral Throughout] Pulse Rate [ From Monitor] Respiratory 28 H 27 H 33 H Rate Respiratory Rate [Anterior Bilateral Throughout] Blood Pressure 102/42 101/45 95/42 O2 Sat by Pulse 94 92 95 Oximetry 06/29/18 08:00 Temperature 98.7 F Pulse Rate Pulse Rate [ Anterior Bilateral Throughout] Pulse Rate [ From Monitor] Respiratory Rate Respiratory Rate [Anterior Bilateral Throughout] Blood Pressure O2 Sat by Pulse Oximetry - Lab 06/29/18 08:07 06/29/18 05:15 Most recent lab results Calcium 8.2 mg/dL (8.4-10.2) L 06/29/18 05:15 Urine Creatinine 47.2 mg/dL (0.1-20.0) H 06/24/18 22:45 Urine Sodium 40 mmol/L 06/24/18 22:45 Urine Total Protein 25 mg/dL (5-11.8) H 06/24/18 22:45 Medications & Allergies - Medications Allergies/Adverse Reactions: Allergies No Known Allergies Allergy (Verified 06/19/18 06:10) Home Medications: Home Medications Medication Instructions Recorded Confirmed Last Taken Type ALBUTEROL Inhaler (OR & NICU) 2 puff IH QID PRN 06/19/18 06/19/18 Unknown History [Proair] Pantoprazole [Protonix] 40 mg PO QDAY 06/19/18 06/19/18 Unknown History levoFLOXacin [Levaquin TAB] 500 mg PO QDAY 06/19/18 06/19/18 Unknown History Active Medications: Generic Name Dose Route Start Last Admin Trade Name Freq PRN Reason Stop Dose Admin Acetaminophen 650 mg 06/19/18 06:30 06/25/18 00:04 Tylenol PO 650 mg Q4H PRN Administration Pain MILD(1-3)/Fever >100.5/[place] Albuterol/Ipratropium 1 ampul 06/26/18 14:00 06/29/18 03:02 Duoneb *Not For Prn Use* IH 1 ampul Q6HRT PEYTON Administration Lipase/Protease/Amylase 1 each 06/19/18 16:02 Pancremeseret Arroyo 10,500 Unit FEEDTUBE PRN PRN For Clogged Feeding Tube Apixaban 2.5 mg 06/26/18 22:00 06/28/18 22:18 Eliquis PO 2.5 mg BID PEYTON Administration Azithromycin 1,200 mg 06/25/18 11:00 06/25/18 12:05 Zithromax PO 1,200 mg Mo PEYTON Administration Famotidine 20 mg 06/29/18 10:00 Pepcid PO DAILY PEYTON Fentanyl 50 mcg 06/19/18 06:00 06/21/18 02:05 Sublimaze IV 50 mcg Q10MIN PRN Administration ANALGESIA Hydrophilic Ointment 1 applic 06/19/18 06:00 Vaseline Lip Therapy TP Q2HR PRN Dry Lips Fentanyl Citrate 2,000 mcg in 100 mls @ 3.86 mls/hr 06/19/18 06:00 06/29/18 01:58 Fentanyl Drip Premix IV 3 mcg/kg/hr TITR PEYTON 11.581 mls/hr Administration Protocol 1 MCG/KG/HR Norepinephrine 4 mg in 250 mls @ 7.5 mls/hr 06/19/18 15:00 06/19/18 22:00 Levophed Drip 4 Mg/Ns 250 Ml IV 0 mcg/min TITR PEYTON 0 mls/hr Titration Protocol 2 MCG/MIN Propofol 1,000 mg in 100 mls @ 2.601 mls/hr 06/24/18 15:00 06/29/18 00:54 Diprivan 10 Mg/Ml IV 20 mcg/kg/min TITR PEYTON 10.404 mls/hr Administration Protocol 5 MCG/KG/MIN Amphotericin B 400 mg/ 580 mls @ 250 mls/hr 06/25/18 10:00 06/28/18 15:06 Dextrose IV Infused Q24HR PEYTON Infusion Dextrose 500 mls @ 5 mls/hr 06/25/18 08:56 06/28/18 11:07 D5w IV 5 mls/hr PRN PRN Administration FLUSH BEFORE AND AFTER AMPHO B Sodium Chloride 1,000 mls @ 5 mls/hr 06/25/18 20:00 06/27/18 13:24 Nacl 0.9% 1000 Ml IV 5 mls/hr DIRECT PEYTON Administration Sodium Chloride 1,000 mls @ 75 mls/hr 06/27/18 12:00 Nacl 0.9% 1000 Ml IV DIRECT PEYTON Ganciclovir Sodium 265 mg/ 250 mls @ 100 mls/hr 06/28/18 09:00 06/28/18 16:30 Sodium Chloride IV Infused Q24H PEYTON Infusion Trimethoprim/Sulfamethoxazole 275 mls @ 350 mls/hr 06/29/18 10:00 400 mg/ Dextrose IV DAILY PEYTON Protocol Sodium Chloride 500 mls @ 0 mls/hr 06/29/18 08:28 Nacl 0.9% 500 Ml IV 06/29/18 08:29 ONCE ONE As Directed Insulin Glargine 10 units 06/26/18 13:00 06/28/18 10:00 Lantus SUB-Q 10 units DAILY PEYTON Administration Insulin Human Lispro 0 unit 06/20/18 13:00 06/29/18 06:34 Humalog SUB-Q 3 unit Q6HR PEYTON Administration Protocol Methylprednisolone Sodium Succinate 40 mg 06/19/18 22:00 06/28/18 22:18 Solu-Medrol IV 40 mg Q12HR PEYTON Administration Metoprolol Tartrate 5 mg 06/27/18 18:00 06/29/18 06:34 Lopressor IV 06/29/18 17:59 5 mg Q6HR PEYTON Administration Multi-Ingred Cream/Lotion/Oil/Oint 1 applic 06/19/18 06:00 Artificial Tears Ophth Oint OU Q4HR PRN Dry Eye(s) Ondansetron HCl 4 mg 06/19/18 06:30 Zofran IV Q8H PRN Nausea And Vomiting Phenylephrine HCl 2 spray 06/24/18 06:07 06/25/18 05:35 Thompson-Synephrine NS 2 spray Q4H PRN Administration Congestion Quetiapine Fumarate 200 mg 06/21/18 22:00 06/28/18 22:18 Seroquel PO 200 mg BID PEYTON Administration Simple Syrup 15 ml 06/19/18 16:02 Simple Syrup FEEDTUBE PRN PRN Hypoglycemia Simple Syrup 30 ml 06/19/18 16:02 Simple Syrup FEEDTUBE PRN PRN Hypoglycemia Sodium Bicarbonate 325 mg 06/19/18 16:02 Sodium Bicarbonate FEEDTUBE PRN PRN For Clogged Feeding Tube Sodium Chloride 10 ml 06/19/18 10:00 06/28/18 22:19 Sodium Chloride Flush Syringe 10 Ml IV 10 ml BID PEYTON Administration Sodium Chloride 10 ml 06/19/18 06:30 Sodium Chloride Flush Syringe 10 Ml IV PRN PRN LINE FLUSH Sodium Polystyrene Sulfonate 30 gm 06/29/18 09:00 Kionex PO 06/29/18 12:01 Q6HR [facility]
[2018-06-29] MEDS: NACL 0.9% IV SCH (08:58)
[2018-06-29] MEDS: CYTOVENE IV SCH (08:58)
--- NOTE | 2018-06-29 09:50 | Progress Note ---
Assessment and Plan Acute Hypoxemic Respiratory Failure on MVS ARDS AIDS / HIV positive Severe Sepsis due to Pneumonia Hyponatremia Severe metabolic acidosis Lower extremity DVT -VAP bundle addressed - Continue supplemental oxygen to keep sats > 90% -Volume resuscitate, transfuse PRBC -Wean PEEP and FIO2 as tolerated -ARDS net protocol with lung protective strategies Permissive hypercapnia for now. Fluid restrictive strategies as tolerated by hemodynamics and renal function. OK for bicarbonate if pH <7.1 -HD to be initiated per Renal - follow up tracheal aspirate cultures - continue bronchodilators with pulmonary -Vasopressor support if indicated to keep MAP>65 - Bactrim, emiprically for PJP, continue steroids -Continue empiric and targeted anti-infective's per ID recs - Continue enteral nutrition -Aspiration precautions, HOB>40 -Accucheck and monitor for hypoglycemia -Target glucose of 140mg- 180mg/dL - monitor for drug-drug interaction - Daily SATs and SBT per protocol once his ventilatory needs are minimal - Stress ulcer prophylaxis -Anticoagulation, stop Eliquis. Plan to start heparin tomorrow, low dose -Critical care bundles addressed CONDITION: CRITICAL PROGNOSIS: POOR CODE STATUS: FULL CODE The high probability of a clinically significant, sudden or life-threatening deterioration of the [cardiac, respiratory] system(s) required my full and direct attention, intervention and personal management. The aggregate critical care time was [35] minutes without overlap. Time includes spent on; [x] Data Review and interpretation [x] Patient assessment and monitoring of vital signs [x] Documentation Subjective Date of service: 06/29/18 Principal diagnosis: Acute Hypoxemic Resp Failure; AIDS / HIV positive; Severe Sepsis due to PNA Interval history: Patient is seen today for: Acute Hypoxemic Respiratory Failure on MVS; AIDS / HIV positive; Severe Sepsis due to Pneumonia; Hyponatremia; Severe metabolic acidosis Seen and examined at bedside; 24hour events reviewed; nursing and respiratory care staff consulted; no adverse overnight events reported to me; fevers overnight; on fentanyl and versed; opens eyes on verbal and tactile stimulation; remains on MVS with ongoing desaturations requiring PEEP 14 and FIO2 100%; no seizures reported; no emesis or overt aspiration Renal service planning for HD Hypotension at this time, awaiting blood transfusions Discussed on ICU-IDT rounds Objective Vital Signs - 12hr 06/28/18 06/28/18 06/28/18 22:00 23:00 23:30 Temperature Pulse Rate 121 H 127 H 127 H Pulse Rate [ Anterior Bilateral Throughout] Pulse Rate [ From Monitor] Respiratory 28 H 30 H Rate Respiratory Rate [Anterior Bilateral Throughout] Blood Pressure 97/45 92/29 86/33 O2 Sat by Pulse 95 85 95 Oximetry 06/28/18 06/29/18 06/29/18 23:33 00:00 00:11 Temperature 99.8 F H Pulse Rate 128 H 126 H Pulse Rate [ Anterior Bilateral Throughout] Pulse Rate [ 120 H From Monitor] Respiratory 30 H Rate Respiratory Rate [Anterior Bilateral Throughout] Blood Pressure 87/33 O2 Sat by Pulse 94 Oximetry 06/29/18 06/29/18 06/29/18 01:00 02:00 02:50 Temperature Pulse Rate 114 H 119 H Pulse Rate [ 110 H Anterior Bilateral Throughout] Pulse Rate [ From Monitor] Respiratory 31 H 30 H Rate Respiratory 30 H Rate [Anterior Bilateral Throughout] Blood Pressure 99/42 101/39 O2 Sat by Pulse 95 95 Oximetry 06/29/18 06/29/18 06/29/18 03:00 03:05 03:21 Temperature 100.4 F H Pulse Rate 121 H Pulse Rate [ 120 H Anterior Bilateral Throughout] Pulse Rate [ From Monitor] Respiratory 27 H Rate Respiratory 36 H Rate [Anterior Bilateral Throughout] Blood Pressure 103/43 O2 Sat by Pulse 96 Oximetry 06/29/18 06/29/18 06/29/18 04:00 04:46 05:00 Temperature Pulse Rate 121 H 122 H 121 H Pulse Rate [ Anterior Bilateral Throughout] Pulse Rate [ 120 H From Monitor] Respiratory 31 H 28 H Rate Respiratory Rate [Anterior Bilateral Throughout] Blood Pressure 94/43 101/40 102/42 O2 Sat by Pulse 94 96 94 Oximetry 06/29/18 06/29/18 06/29/18 06:00 07:00 08:00 Temperature 98.7 F Pulse Rate 117 H 110 H Pulse Rate [ Anterior Bilateral Throughout] Pulse Rate [ From Monitor] Respiratory 27 H 33 H Rate Respiratory Rate [Anterior Bilateral Throughout] Blood Pressure 101/45 95/42 O2 Sat by Pulse 92 95 Oximetry 06/29/18 08:52 Temperature Pulse Rate 118 H Pulse Rate [ 118 H Anterior Bilateral Throughout] Pulse Rate [ From Monitor] Respiratory Rate Respiratory 37 H Rate [Anterior Bilateral Throughout] Blood Pressure 89/48 O2 Sat by Pulse 94 Oximetry Constitutional: appears uncomfortable, other (young HM normocephalic and atraumatic with moderately increased respiratory effort at rest) Eyes: non-icteric ENT: oropharynx moist, other (ETT 23 cm SATISH) Neck: supple, no lymphadenopathy, no JVD, other (no thyromegaly) Effort: mildly labored Ascultation: Bilateral: diminished breath sounds, rhonchi Percussion: Bilateral: not dull Cardiovascular: regular rate and rhythm Gastrointestinal: normoactive bowel sounds, soft, non-tender, non-distended Integumentary: rash Extremities: no cyanosis, pink and warm, pulses normal, no ischemia or petechiae, edema (trace) Neurologic: non-focal exam (grossly), pupils equal and round, motor strength normal and, unable to assess Psychiatric: other (unable to assess) CBC and BMP: 06/29/18 08:07 06/29/18 05:15 ABG, PT/INR, D-dimer: ABG POC ABG pH 7.158 (7.35-7.45) L 06/29/18 04:38 POC ABG pCO2 76.6 (35-45) H 06/29/18 04:38 POC ABG pO2 97 (80-105) 06/29/18 04:38 POC ABG HCO3 27.2 06/29/18 04:38 POC ABG Total CO2 29 06/29/18 04:38 POC ABG O2 Sat 95 06/29/18 04:38 PT/INR, D-dimer PT 15.6 Sec. (12.2-14.9) H 06/24/18 Unknown INR 1.17 (0.87-1.13) H 06/24/18 Unknown D-Dimer 8449.09 ng/mlDDU (0-234) H 06/19/18 Unknown Abnormal lab findings: Abnormal Labs 06/19/18 06/19/18 06/19/18 03:31 07:11 07:42 WBC RBC Hgb Hct MCV RDW Plt Count Seg Neuts % (Manual) Lymphocytes % (Manual) Seg Neutrophils # Man Abs Lymphs (Manual) 409 L Lymphocytes # (Manual) PT INR D-Dimer POC ABG pH 6.974 L POC ABG pCO2 22.0 L 83.4 H POC ABG pO2 28 L 122 H Sodium Potassium Chloride Carbon Dioxide BUN Creatinine Glucose POC Glucose Calcium AST ALT C-Reactive Protein Total Protein Albumin Triglycerides Ur Specific [place] Urine WBC (Auto) Urine Creatinine Urine Total Protein Lymph Enumerat CD4/CD8 0.05 L % CD3 Cells 45 L Absolute CD3 Count 185 L % CD4 Cells 2 L Absolute CD4 Count 10 L % CD8 Cells 43 H Absolute CD8 Count 167 L Absolute CD19 Count 79 L HIV DNA Qual (PCR) HIV-1 RNA PCR copies/ml HIV-1 RNA (PCR) log Miscellaneous Test 06/19/18 06/19/18 06/19/18 08:07 08:16 09:20 WBC RBC Hgb Hct MCV RDW Plt Count Seg Neuts % (Manual) Lymphocytes % (Manual) Seg Neutrophils # Man Abs Lymphs (Manual) Lymphocytes # (Manual) PT INR D-Dimer POC ABG pH 6.996 L POC ABG pCO2 82.4 H POC ABG pO2 Sodium Potassium Chloride Carbon Dioxide BUN Creatinine Glucose POC Glucose Calcium AST ALT C-Reactive Protein Total Protein Albumin Triglycerides Ur Specific [place] 1.060 H Urine WBC (Auto) 8.0 H Urine Creatinine Urine Total Protein Lymph Enumerat CD4/CD8 % CD3 Cells Absolute CD3 Count % CD4 Cells Absolute CD4 Count % CD8 Cells Absolute CD8 Count Absolute CD19 Count HIV DNA Qual (PCR) Detected H HIV-1 RNA PCR copies/ml HIV-1 RNA (PCR) log Miscellaneous Test 06/19/18 06/19/18 06/19/18 09:49 11:15 15:16 WBC RBC Hgb Hct MCV RDW Plt Count Seg Neuts % (Manual) Lymphocytes % (Manual) Seg Neutrophils # Man Abs Lymphs (Manual) Lymphocytes # (Manual) PT INR D-Dimer POC ABG pH 7.198 L 7.206 L POC ABG pCO2 POC ABG pO2 75 L Sodium Potassium Chloride Carbon Dioxide BUN Creatinine Glucose POC Glucose Calcium AST ALT C-Reactive Protein Total Protein Albumin Triglycerides Ur Specific [place] Urine WBC (Auto) Urine Creatinine Urine Total Protein Lymph Enumerat CD4/CD8 % CD3 Cells Absolute CD3 Count % CD4 Cells Absolute CD4 Count % CD8 Cells Absolute CD8 Count Absolute CD19 Count HIV DNA Qual (PCR) HIV-1 RNA PCR copies/ml [id number] H HIV-1 RNA (PCR) log 6.11 H Miscellaneous Test 06/19/18 06/19/18 06/19/18 18:54 Unknown Unknown WBC 12.9 H RBC Hgb Hct MCV RDW Plt Count Seg Neuts % (Manual) Lymphocytes % (Manual) 5.0 L Seg Neutrophils # Man Abs Lymphs (Manual) Lymphocytes # (Manual) 0.6 L PT 15.9 H INR 1.19 H D-Dimer 8449.09 H POC ABG pH POC ABG pCO2 POC ABG pO2 Sodium Potassium Chloride Carbon Dioxide BUN Creatinine Glucose POC Glucose 196 H Calcium AST ALT C-Reactive Protein Total Protein Albumin Triglycerides Ur Specific [place] Urine WBC (Auto) Urine Creatinine Urine Total Protein Lymph Enumerat CD4/CD8 % CD3 Cells Absolute CD3 Count % CD4 Cells Absolute CD4 Count % CD8 Cells Absolute CD8 Count Absolute CD19 Count HIV DNA Qual (PCR) HIV-1 RNA PCR copies/ml HIV-1 RNA (PCR) log Miscellaneous Test 06/19/18 06/19/18 06/20/18 Unknown Unknown 04:33 WBC RBC Hgb Hct MCV RDW Plt Count Seg Neuts % (Manual) Lymphocytes % (Manual) Seg Neutrophils # Man Abs Lymphs (Manual) Lymphocytes # (Manual) PT INR D-Dimer POC ABG pH 7.249 L POC ABG pCO2 POC ABG pO2 118 H Sodium 129 L Potassium Chloride 90.7 L Carbon Dioxide 17 L BUN Creatinine 0.6 L Glucose 199 H POC Glucose Calcium 8.1 L AST 53 H ALT C-Reactive Protein Total Protein 6.0 L Albumin 2.8 L Triglycerides Ur Specific [place] Urine WBC (Auto) Urine Creatinine Urine Total Protein Lymph Enumerat CD4/CD8 % CD3 Cells Absolute CD3 Count % CD4 Cells Absolute CD4 Count % CD8 Cells Absolute CD8 Count Absolute CD19 Count HIV DNA Qual (PCR) HIV-1 RNA PCR copies/ml HIV-1 RNA (PCR) log Miscellaneous Test 06/20/18 06/20/18 06/20/18 08:13 08:13 12:59 WBC 11.8 H RBC 3.25 L Hgb 9.8 L D Hct 30.4 L D MCV RDW Plt Count Seg Neuts % (Manual) 99.0 H Lymphocytes % (Manual) 1.0 L Seg Neutrophils # Man 11.7 H Abs Lymphs (Manual) Lymphocytes # (Manual) 0.1 L PT INR D-Dimer POC ABG pH POC ABG pCO2 POC ABG pO2 Sodium Potassium Chloride Carbon Dioxide 19 L BUN Creatinine Glucose 223 H POC Glucose 174 H Calcium 6.6 L D AST 1240 H ALT 836 H C-Reactive Protein Total Protein 4.9 L Albumin 2.1 L Triglycerides Ur Specific [place] Urine WBC (Auto) Urine Creatinine Urine Total Protein Lymph Enumerat CD4/CD8 % CD3 Cells Absolute CD3 Count % CD4 Cells Absolute CD4 Count % CD8 Cells Absolute CD8 Count Absolute CD19 Count HIV DNA Qual (PCR) HIV-1 RNA PCR copies/ml HIV-1 RNA (PCR) log Miscellaneous Test 06/20/18 06/20/18 06/21/18 17:42 23:44 04:08 WBC RBC Hgb Hct MCV RDW Plt Count Seg Neuts % (Manual) Lymphocytes % (Manual) Seg Neutrophils # Man Abs Lymphs (Manual) Lymphocytes # (Manual) PT INR D-Dimer POC ABG pH 7.309 L POC ABG pCO2 POC ABG pO2 Sodium Potassium Chloride Carbon Dioxide BUN Creatinine Glucose POC Glucose 177 H 195 H Calcium AST ALT C-Reactive Protein Total Protein Albumin Triglycerides Ur Specific [place] Urine WBC (Auto) Urine Creatinine Urine Total Protein Lymph Enumerat CD4/CD8 % CD3 Cells Absolute CD3 Count % CD4 Cells Absolute CD4 Count % CD8 Cells Absolute CD8 Count Absolute CD19 Count HIV DNA Qual (PCR) HIV-1 RNA PCR copies/ml HIV-1 RNA (PCR) log Miscellaneous Test 06/21/18 06/21/18 06/21/18 04:19 04:19 05:27 WBC 13.8 H RBC 3.02 L Hgb 9.2 L Hct 28.0 L MCV RDW Plt Count Seg Neuts % (Manual) Lymphocytes % (Manual) Seg Neutrophils # Man Abs Lymphs (Manual) Lymphocytes # (Manual) PT INR D-Dimer POC ABG pH POC ABG pCO2 POC ABG pO2 Sodium 135 L Potassium Chloride Carbon Dioxide 21 L BUN Creatinine 0.7 L Glucose 161 H POC Glucose 187 H Calcium 7.2 L AST 390 H ALT 622 H C-Reactive Protein Total Protein 5.3 L Albumin 2.4 L Triglycerides Ur Specific [place] Urine WBC (Auto) Urine Creatinine Urine Total Protein Lymph Enumerat CD4/CD8 % CD3 Cells Absolute CD3 Count % CD4 Cells Absolute CD4 Count % CD8 Cells Absolute CD8 Count Absolute CD19 Count HIV DNA Qual (PCR) HIV-1 RNA PCR copies/ml HIV-1 RNA (PCR) log Miscellaneous Test 06/21/18 06/21/18 06/21/18 11:33 12:32 17:45 WBC RBC Hgb Hct MCV RDW Plt Count Seg Neuts % (Manual) Lymphocytes % (Manual) Seg Neutrophils # Man Abs Lymphs (Manual) Lymphocytes # (Manual) PT INR D-Dimer POC ABG pH POC ABG pCO2 POC ABG pO2 Sodium Potassium Chloride Carbon Dioxide BUN Creatinine Glucose POC Glucose 147 H 172 H Calcium AST ALT C-Reactive Protein Total Protein Albumin Triglycerides Ur Specific [place] Urine WBC (Auto) Urine Creatinine Urine Total Protein Lymph Enumerat CD4/CD8 % CD3 Cells Absolute CD3 Count % CD4 Cells Absolute CD4 Count % CD8 Cells Absolute CD8 Count Absolute CD19 Count HIV DNA Qual (PCR) HIV-1 RNA PCR copies/ml HIV-1 RNA (PCR) log Miscellaneous Test see below H 06/21/18 06/22/18 06/22/18 23:25 04:47 04:47 WBC 11.5 H RBC 2.93 L Hgb 9.0 L Hct 26.5 L MCV RDW Plt Count Seg Neuts % (Manual) Lymphocytes % (Manual) Seg Neutrophils # Man Abs Lymphs (Manual) Lymphocytes # (Manual) PT INR D-Dimer POC ABG pH POC ABG pCO2 POC ABG pO2 Sodium Potassium Chloride Carbon Dioxide BUN 22 H Creatinine Glucose 201 H POC Glucose 152 H Calcium 7.8 L AST 129 H ALT 416 H C-Reactive Protein Total Protein 5.3 L Albumin 2.4 L Triglycerides Ur Specific [place] Urine WBC (Auto) Urine Creatinine Urine Total Protein Lymph Enumerat CD4/CD8 % CD3 Cells Absolute CD3 Count % CD4 Cells Absolute CD4 Count % CD8 Cells Absolute CD8 Count Absolute CD19 Count HIV DNA Qual (PCR) HIV-1 RNA PCR copies/ml HIV-1 RNA (PCR) log Miscellaneous Test 06/22/18 06/22/18 06/22/18 05:23 11:43 17:45 WBC RBC Hgb Hct MCV RDW Plt Count Seg Neuts % (Manual) Lymphocytes % (Manual) Seg Neutrophils # Man Abs Lymphs (Manual) Lymphocytes # (Manual) PT INR D-Dimer POC ABG pH POC ABG pCO2 POC ABG pO2 Sodium Potassium Chloride Carbon Dioxide BUN Creatinine Glucose POC Glucose 170 H 175 H 176 H Calcium AST ALT C-Reactive Protein Total Protein Albumin Triglycerides Ur Specific [place] Urine WBC (Auto) Urine Creatinine Urine Total Protein Lymph Enumerat CD4/CD8 % CD3 Cells Absolute CD3 Count % CD4 Cells Absolute CD4 Count % CD8 Cells Absolute CD8 Count Absolute CD19 Count HIV DNA Qual (PCR) HIV-1 RNA PCR copies/ml HIV-1 RNA (PCR) log Miscellaneous Test 06/23/18 06/23/18 06/23/18 00:24 05:06 05:11 WBC 11.2 H RBC 2.78 L Hgb 8.6 L Hct 25.3 L MCV RDW Plt Count Seg Neuts % (Manual) Lymphocytes % (Manual) Seg Neutrophils # Man Abs Lymphs (Manual) Lymphocytes # (Manual) PT INR D-Dimer POC ABG pH POC ABG pCO2 POC ABG pO2 Sodium Potassium Chloride Carbon Dioxide BUN Creatinine Glucose POC Glucose 178 H 182 H Calcium AST ALT C-Reactive Protein Total Protein Albumin Triglycerides Ur Specific [place] Urine WBC (Auto) Urine Creatinine Urine Total Protein Lymph Enumerat CD4/CD8 % CD3 Cells Absolute CD3 Count % CD4 Cells Absolute CD4 Count % CD8 Cells Absolute CD8 Count Absolute CD19 Count HIV DNA Qual (PCR) HIV-1 RNA PCR copies/ml HIV-1 RNA (PCR) log Miscellaneous Test 06/23/18 06/23/18 06/23/18 05:11 05:51 12:21 WBC RBC Hgb Hct MCV RDW Plt Count Seg Neuts % (Manual) Lymphocytes % (Manual) Seg Neutrophils # Man Abs Lymphs (Manual) Lymphocytes # (Manual) PT INR D-Dimer POC ABG pH POC ABG pCO2 POC ABG pO2 69 L Sodium Potassium Chloride Carbon Dioxide BUN 34 H Creatinine 1.7 H D Glucose 191 H POC Glucose 181 H Calcium 7.5 L AST 63 H ALT 297 H C-Reactive Protein Total Protein 5.3 L Albumin 2.4 L Triglycerides Ur Specific [place] Urine WBC (Auto) Urine Creatinine Urine Total Protein Lymph Enumerat CD4/CD8 % CD3 Cells Absolute CD3 Count % CD4 Cells Absolute CD4 Count % CD8 Cells Absolute CD8 Count Absolute CD19 Count HIV DNA Qual (PCR) HIV-1 RNA PCR copies/ml HIV-1 RNA (PCR) log Miscellaneous Test 06/23/18 06/23/18 06/23/18 13:57 17:00 18:40 WBC RBC Hgb Hct MCV RDW Plt Count Seg Neuts % (Manual) Lymphocytes % (Manual) Seg Neutrophils # Man Abs Lymphs (Manual) Lymphocytes # (Manual) PT INR D-Dimer POC ABG pH POC ABG pCO2 POC ABG pO2 Sodium Potassium Chloride Carbon Dioxide BUN 38 H Creatinine 1.8 H Glucose POC Glucose 196 H Calcium AST ALT C-Reactive Protein 1.60 H Total Protein Albumin Triglycerides Ur Specific [place] Urine WBC (Auto) Urine Creatinine Urine Total Protein Lymph Enumerat CD4/CD8 % CD3 Cells Absolute CD3 Count % CD4 Cells Absolute CD4 Count % CD8 Cells Absolute CD8 Count Absolute CD19 Count HIV DNA Qual (PCR) HIV-1 RNA PCR copies/ml HIV-1 RNA (PCR) log Miscellaneous Test 06/23/18 06/23/18 06/24/18 21:16 23:22 04:12 WBC RBC 2.89 L Hgb 8.8 L Hct 26.9 L MCV RDW Plt Count Seg Neuts % (Manual) Lymphocytes % (Manual) Seg Neutrophils # Man Abs Lymphs (Manual) Lymphocytes # (Manual) PT INR D-Dimer POC ABG pH 7.311 L POC ABG pCO2 47.4 H POC ABG pO2 Sodium Potassium Chloride Carbon Dioxide BUN Creatinine Glucose POC Glucose 165 H Calcium AST ALT C-Reactive Protein Total Protein Albumin Triglycerides Ur Specific [place] Urine WBC (Auto) Urine Creatinine Urine Total Protein Lymph Enumerat CD4/CD8 % CD3 Cells Absolute CD3 Count % CD4 Cells Absolute CD4 Count % CD8 Cells Absolute CD8 Count Absolute CD19 Count HIV DNA Qual (PCR) HIV-1 RNA PCR copies/ml HIV-1 RNA (PCR) log Miscellaneous Test 06/24/18 06/24/18 06/24/18 04:12 04:46 05:24 WBC RBC Hgb Hct MCV RDW Plt Count Seg Neuts % (Manual) Lymphocytes % (Manual) Seg Neutrophils # Man Abs Lymphs (Manual) Lymphocytes # (Manual) PT INR D-Dimer POC ABG pH 7.250 L POC ABG pCO2 55.8 H POC ABG pO2 Sodium Potassium 5.4 H Chloride Carbon Dioxide BUN 44 H Creatinine 2.2 H Glucose 206 H POC Glucose 183 H Calcium 7.5 L AST ALT C-Reactive Protein Total Protein Albumin Triglycerides Ur Specific [place] Urine WBC (Auto) Urine Creatinine Urine Total Protein Lymph Enumerat CD4/CD8 % CD3 Cells Absolute CD3 Count % CD4 Cells Absolute CD4 Count % CD8 Cells Absolute CD8 Count Absolute CD19 Count HIV DNA Qual (PCR) HIV-1 RNA PCR copies/ml HIV-1 RNA (PCR) log Miscellaneous Test 06/24/18 06/24/18 06/24/18 11:14 16:40 17:16 WBC RBC Hgb Hct MCV RDW Plt Count Seg Neuts % (Manual) Lymphocytes % (Manual) Seg Neutrophils # Man Abs Lymphs (Manual) Lymphocytes # (Manual) PT INR D-Dimer POC ABG pH 7.067 L POC ABG pCO2 91.7 H POC ABG pO2 134 H Sodium Potassium Chloride Carbon Dioxide BUN Creatinine Glucose POC Glucose 151 H 195 H Calcium AST ALT C-Reactive Protein Total Protein Albumin Triglycerides Ur Specific [place] Urine WBC (Auto) Urine Creatinine Urine Total Protein Lymph Enumerat CD4/CD8 % CD3 Cells Absolute CD3 Count % CD4 Cells Absolute CD4 Count % CD8 Cells Absolute CD8 Count Absolute CD19 Count HIV DNA Qual (PCR) HIV-1 RNA PCR copies/ml HIV-1 RNA (PCR) log Miscellaneous Test 06/24/18 06/24/18 06/24/18 18:03 22:45 22:45 WBC RBC Hgb Hct MCV RDW Plt Count Seg Neuts % (Manual) Lymphocytes % (Manual) Seg Neutrophils # Man Abs Lymphs (Manual) Lymphocytes # (Manual) PT INR D-Dimer POC ABG pH 7.234 L POC ABG pCO2 59.9 H POC ABG pO2 121 H Sodium Potassium Chloride Carbon Dioxide BUN Creatinine Glucose POC Glucose Calcium AST ALT C-Reactive Protein Total Protein Albumin Triglycerides Ur Specific [place] Urine WBC (Auto) 9.0 H Urine Creatinine 47.2 H Urine Total Protein 25 H Lymph Enumerat CD4/CD8 % CD3 Cells Absolute CD3 Count % CD4 Cells Absolute CD4 Count % CD8 Cells Absolute CD8 Count Absolute CD19 Count HIV DNA Qual (PCR) HIV-1 RNA PCR copies/ml HIV-1 RNA (PCR) log Miscellaneous Test 06/24/18 06/24/18 06/25/18 Unknown 23:59 04:36 WBC RBC Hgb Hct MCV RDW Plt Count Seg Neuts % (Manual) Lymphocytes % (Manual) Seg Neutrophils # Man Abs Lymphs (Manual) Lymphocytes # (Manual) PT 15.6 H INR 1.17 H D-Dimer POC ABG pH 7.200 L POC ABG pCO2 65.3 H POC ABG pO2 Sodium Potassium Chloride Carbon Dioxide BUN Creatinine Glucose POC Glucose 233 H Calcium AST ALT C-Reactive Protein Total Protein Albumin Triglycerides Ur Specific [place] Urine WBC (Auto) Urine Creatinine Urine Total Protein Lymph Enumerat CD4/CD8 % CD3 Cells Absolute CD3 Count % CD4 Cells Absolute CD4 Count % CD8 Cells Absolute CD8 Count Absolute CD19 Count HIV DNA Qual (PCR) HIV-1 RNA PCR copies/ml HIV-1 RNA (PCR) log Miscellaneous Test 06/25/18 06/25/18 06/25/18 05:29 11:12 11:40 WBC RBC 2.67 L Hgb 8.5 L Hct 25.6 L MCV 96 H RDW 16.0 H Plt Count Seg Neuts % (Manual) Lymphocytes % (Manual) Seg Neutrophils # Man Abs Lymphs (Manual) Lymphocytes # (Manual) PT INR D-Dimer POC ABG pH POC ABG pCO2 POC ABG pO2 Sodium Potassium Chloride Carbon Dioxide BUN Creatinine Glucose POC Glucose 212 H 244 H Calcium AST ALT C-Reactive Protein Total Protein Albumin Triglycerides Ur Specific [place] Urine WBC (Auto) Urine Creatinine Urine Total Protein Lymph Enumerat CD4/CD8 % CD3 Cells Absolute CD3 Count % CD4 Cells Absolute CD4 Count % CD8 Cells Absolute CD8 Count Absolute CD19 Count HIV DNA Qual (PCR) HIV-1 RNA PCR copies/ml HIV-1 RNA (PCR) log Miscellaneous Test 06/25/18 06/25/18 06/25/18 11:40 17:18 18:08 WBC RBC Hgb Hct MCV RDW Plt Count Seg Neuts % (Manual) Lymphocytes % (Manual) Seg Neutrophils # Man Abs Lymphs (Manual) Lymphocytes # (Manual) PT INR D-Dimer POC ABG pH 7.206 L POC ABG pCO2 68.1 H POC ABG pO2 Sodium Potassium 5.8 H Chloride Carbon Dioxide BUN 48 H Creatinine 2.1 H Glucose 293 H POC Glucose 264 H Calcium 7.5 L AST ALT C-Reactive Protein Total Protein Albumin Triglycerides Ur Specific [place] Urine WBC (Auto) Urine Creatinine Urine Total Protein Lymph Enumerat CD4/CD8 % CD3 Cells Absolute CD3 Count % CD4 Cells Absolute CD4 Count % CD8 Cells Absolute CD8 Count Absolute CD19 Count HIV DNA Qual (PCR) HIV-1 RNA PCR copies/ml HIV-1 RNA (PCR) log Miscellaneous Test 06/25/18 06/25/18 06/26/18 21:20 23:59 05:10 WBC RBC Hgb Hct MCV RDW Plt Count Seg Neuts % (Manual) Lymphocytes % (Manual) Seg Neutrophils # Man Abs Lymphs (Manual) Lymphocytes # (Manual) PT INR D-Dimer POC ABG pH 7.220 L POC ABG pCO2 65.0 H POC ABG pO2 71 L Sodium Potassium Chloride Carbon Dioxide BUN Creatinine Glucose POC Glucose 231 H 259 H Calcium AST ALT C-Reactive Protein Total Protein Albumin Triglycerides Ur Specific [place] Urine WBC (Auto) Urine Creatinine Urine Total Protein Lymph Enumerat CD4/CD8 % CD3 Cells Absolute CD3 Count % CD4 Cells Absolute CD4 Count % CD8 Cells Absolute CD8 Count Absolute CD19 Count HIV DNA Qual (PCR) HIV-1 RNA PCR copies/ml HIV-1 RNA (PCR) log Miscellaneous Test 06/26/18 06/26/18 06/26/18 05:29 07:25 07:25 WBC 12.0 H RBC 2.69 L Hgb 8.2 L Hct 25.5 L MCV 95 H RDW 15.7 H Plt Count Seg Neuts % (Manual) Lymphocytes % (Manual) Seg Neutrophils # Man Abs Lymphs (Manual) Lymphocytes # (Manual) PT INR D-Dimer POC ABG pH 7.240 L POC ABG pCO2 67.6 H POC ABG pO2 106 H Sodium Potassium 5.2 H Chloride Carbon Dioxide BUN 58 H Creatinine 1.9 H Glucose 219 H POC Glucose Calcium 7.9 L AST ALT C-Reactive Protein Total Protein Albumin Triglycerides Ur Specific [place] Urine WBC (Auto) Urine Creatinine Urine Total Protein Lymph Enumerat CD4/CD8 % CD3 Cells Absolute CD3 Count % CD4 Cells Absolute CD4 Count % CD8 Cells Absolute CD8 Count Absolute CD19 Count HIV DNA Qual (PCR) HIV-1 RNA PCR copies/ml HIV-1 RNA (PCR) log Miscellaneous Test 06/26/18 06/26/18 06/26/18 07:25 12:49 17:42 WBC RBC Hgb Hct MCV RDW Plt Count Seg Neuts % (Manual) Lymphocytes % (Manual) Seg Neutrophils # Man Abs Lymphs (Manual) Lymphocytes # (Manual) PT INR D-Dimer POC ABG pH 7.178 L POC ABG pCO2 73.6 H POC ABG pO2 77 L Sodium Potassium Chloride Carbon Dioxide BUN Creatinine Glucose POC Glucose 276 H Calcium AST ALT C-Reactive Protein Total Protein Albumin Triglycerides 174 H Ur Specific [place] Urine WBC (Auto) Urine Creatinine Urine Total Protein Lymph Enumerat CD4/CD8 % CD3 Cells Absolute CD3 Count % CD4 Cells Absolute CD4 Count % CD8 Cells Absolute CD8 Count Absolute CD19 Count HIV DNA Qual (PCR) HIV-1 RNA PCR copies/ml HIV-1 RNA (PCR) log Miscellaneous Test 06/26/18 06/26/18 06/26/18 18:25 21:24 23:22 WBC RBC Hgb Hct MCV RDW Plt Count Seg Neuts % (Manual) Lymphocytes % (Manual) Seg Neutrophils # Man Abs Lymphs (Manual) Lymphocytes # (Manual) PT INR D-Dimer POC ABG pH 7.152 L POC ABG pCO2 80.6 H POC ABG pO2 Sodium Potassium Chloride Carbon Dioxide BUN Creatinine Glucose POC Glucose 304 H 282 H Calcium AST ALT C-Reactive Protein Total Protein Albumin Triglycerides Ur Specific [place] Urine WBC (Auto) Urine Creatinine Urine Total Protein Lymph Enumerat CD4/CD8 % CD3 Cells Absolute CD3 Count % CD4 Cells Absolute CD4 Count % CD8 Cells Absolute CD8 Count Absolute CD19 Count HIV DNA Qual (PCR) HIV-1 RNA PCR copies/ml HIV-1 RNA (PCR) log Miscellaneous Test 06/27/18 06/27/18 06/27/18 04:05 05:15 05:15 WBC RBC 2.41 L Hgb 7.6 L Hct 22.4 L MCV RDW Plt Count Seg Neuts % (Manual) Lymphocytes % (Manual) Seg Neutrophils # Man Abs Lymphs (Manual) Lymphocytes # (Manual) PT INR D-Dimer POC ABG pH 7.266 L POC ABG pCO2 62.8 H POC ABG pO2 Sodium Potassium 5.5 H Chloride Carbon Dioxide BUN 73 H Creatinine 2.1 H Glucose 211 H POC Glucose Calcium 7.7 L AST ALT C-Reactive Protein Total Protein Albumin Triglycerides Ur Specific [place] Urine WBC (Auto) Urine Creatinine Urine Total Protein Lymph Enumerat CD4/CD8 % CD3 Cells Absolute CD3 Count % CD4 Cells Absolute CD4 Count % CD8 Cells Absolute CD8 Count Absolute CD19 Count HIV DNA Qual (PCR) HIV-1 RNA PCR copies/ml HIV-1 RNA (PCR) log Miscellaneous Test 06/27/18 06/27/18 06/27/18 05:52 13:10 16:12 WBC RBC Hgb Hct MCV RDW Plt Count Seg Neuts % (Manual) Lymphocytes % (Manual) Seg Neutrophils # Man Abs Lymphs (Manual) Lymphocytes # (Manual) PT INR D-Dimer POC ABG pH POC ABG pCO2 POC ABG pO2 Sodium Potassium Chloride Carbon Dioxide BUN Creatinine Glucose POC Glucose 198 H 238 H 174 H Calcium AST ALT C-Reactive Protein Total Protein Albumin Triglycerides Ur Specific [place] Urine WBC (Auto) Urine Creatinine Urine Total Protein Lymph Enumerat CD4/CD8 % CD3 Cells Absolute CD3 Count % CD4 Cells Absolute CD4 Count % CD8 Cells Absolute CD8 Count Absolute CD19 Count HIV DNA Qual (PCR) HIV-1 RNA PCR copies/ml HIV-1 RNA (PCR) log Miscellaneous Test 06/27/18 06/27/18 06/28/18 17:51 23:22 04:36 WBC RBC Hgb Hct MCV RDW Plt Count Seg Neuts % (Manual) Lymphocytes % (Manual) Seg Neutrophils # Man Abs Lymphs (Manual) Lymphocytes # (Manual) PT INR D-Dimer POC ABG pH 7.257 L POC ABG pCO2 68.8 H POC ABG pO2 Sodium Potassium Chloride Carbon Dioxide BUN Creatinine Glucose POC Glucose 162 H 171 H Calcium AST ALT C-Reactive Protein Total Protein Albumin Triglycerides Ur Specific [place] Urine WBC (Auto) Urine Creatinine Urine Total Protein Lymph Enumerat CD4/CD8 % CD3 Cells Absolute CD3 Count % CD4 Cells Absolute CD4 Count % CD8 Cells Absolute CD8 Count Absolute CD19 Count HIV DNA Qual (PCR) HIV-1 RNA PCR copies/ml HIV-1 RNA (PCR) log Miscellaneous Test 06/28/18 06/28/18 06/28/18 04:54 05:10 12:15 WBC RBC Hgb Hct MCV RDW Plt Count Seg Neuts % (Manual) Lymphocytes % (Manual) Seg Neutrophils # Man Abs Lymphs (Manual) Lymphocytes # (Manual) PT INR D-Dimer POC ABG pH POC ABG pCO2 POC ABG pO2 Sodium Potassium Chloride Carbon Dioxide BUN 93 H Creatinine 2.4 H Glucose 186 H POC Glucose 193 H 154 H Calcium 8.3 L AST ALT C-Reactive Protein Total Protein Albumin Triglycerides Ur Specific [place] Urine WBC (Auto) Urine Creatinine Urine Total Protein Lymph Enumerat CD4/CD8 % CD3 Cells Absolute CD3 Count % CD4 Cells Absolute CD4 Count % CD8 Cells Absolute CD8 Count Absolute CD19 Count HIV DNA Qual (PCR) HIV-1 RNA PCR copies/ml HIV-1 RNA (PCR) log Miscellaneous Test 06/28/18 06/28/18 06/28/18 17:43 18:26 22:08 WBC RBC Hgb Hct MCV RDW Plt Count Seg Neuts % (Manual) Lymphocytes % (Manual) Seg Neutrophils # Man Abs Lymphs (Manual) Lymphocytes # (Manual) PT INR D-Dimer POC ABG pH 7.123 L 7.172 L POC ABG pCO2 82.7 H 80.4 H POC ABG pO2 143 H Sodium Potassium Chloride Carbon Dioxide BUN Creatinine Glucose POC Glucose 194 H Calcium AST ALT C-Reactive Protein Total Protein Albumin Triglycerides Ur Specific [place] Urine WBC (Auto) Urine Creatinine Urine Total Protein Lymph Enumerat CD4/CD8 % CD3 Cells Absolute CD3 Count % CD4 Cells Absolute CD4 Count % CD8 Cells Absolute CD8 Count Absolute CD19 Count HIV DNA Qual (PCR) HIV-1 RNA PCR copies/ml HIV-1 RNA (PCR) log Miscellaneous Test 06/29/18 06/29/18 06/29/18 00:12 04:38 05:15 WBC RBC Hgb Hct MCV RDW Plt Count Seg Neuts % (Manual) Lymphocytes % (Manual) Seg Neutrophils # Man Abs Lymphs (Manual) Lymphocytes # (Manual) PT INR D-Dimer POC ABG pH 7.158 L POC ABG pCO2 76.6 H POC ABG pO2 Sodium 136 L Potassium 5.9 H Chloride 94.3 L Carbon Dioxide BUN 139 H Creatinine 4.2 H D Glucose 157 H POC Glucose 202 H Calcium 8.2 L AST ALT C-Reactive Protein Total Protein Albumin Triglycerides Ur Specific [place] Urine WBC (Auto) Urine Creatinine Urine Total Protein Lymph Enumerat CD4/CD8 % CD3 Cells Absolute CD3 Count % CD4 Cells Absolute CD4 Count % CD8 Cells Absolute CD8 Count Absolute CD19 Count HIV DNA Qual (PCR) HIV-1 RNA PCR copies/ml HIV-1 RNA (PCR) log Miscellaneous Test 06/29/18 06/29/18 06/29/18 05:15 05:32 08:07 WBC 12.3 H RBC 1.93 L Hgb 5.9 L* 6.0 L Hct 18.2 L* 18.4 L* MCV 95 H RDW Plt Count 127 L Seg Neuts % (Manual) Lymphocytes % (Manual) Seg Neutrophils # Man Abs Lymphs (Manual) Lymphocytes # (Manual) PT INR D-Dimer POC ABG pH POC ABG pCO2 POC ABG pO2 Sodium Potassium Chloride Carbon Dioxide BUN Creatinine Glucose POC Glucose 150 H Calcium AST ALT C-Reactive Protein Total Protein Albumin Triglycerides Ur Specific [place] Urine WBC (Auto) Urine Creatinine Urine Total Protein Lymph Enumerat CD4/CD8 % CD3 Cells Absolute CD3 Count % CD4 Cells Absolute CD4 Count % CD8 Cells Absolute CD8 Count Absolute CD19 Count HIV DNA Qual (PCR) HIV-1 RNA PCR copies/ml HIV-1 RNA (PCR) log Miscellaneous Test Allied health notes reviewed: nursing
[2018-06-29] MEDS: ELIQUIS PO SCH (10:00)
[2018-06-29] MEDS ORDERED: NACL 0.9% 500 ML 500 ML IV ONE (10:00)
[2018-06-29] MEDS: KIONEX PO SCH ×2 (10:13→12:00)
[2018-06-29] MEDS: PEPCID PO SCH (10:14)
[2018-06-29] MEDS: SODIUM CHLORIDE FLUSH SYRINGE 10 ML IV SCH ×2 (10:15→22:36)
[2018-06-29] MEDS: SOLU-Medrol IV SCH ×2 (10:15→22:36)
[2018-06-29] MEDS: LANTUS SUB-Q SCH (10:17)
[2018-06-29 10:23] LABS: INR 1.06 (0.87-1.13)
[2018-06-29] MEDS: D5W IV SCH ×2 (11:00→11:56)
[2018-06-29] MEDS: BACTRIM IV SCH ×2 (11:00→11:56)
--- NOTE | 2018-06-29 11:15 | Progress Note ---
Assessment and Plan Cultures: 06/19/2018 blood culture: no growth 06/19/2018 tracheal aspirate: usual resp david/ Rothia mucilaginosa 06/19/2018 fungal blood culture: no growth 06/20/2018 Serum CrAg: negative Cytology PJP stain negative GMS stain showed septated fungal hyphae with acute angle branching and yeast forms c/w Aspergillus, Fusarium, Scedosporium and other Dematiaceous fungi. DFA showed rare PJP CMV DNA PCR 06/19/2018 13,166 BAL 06/25/2018 Tigist albicans A/P: 32/M with: #1 Bilateral pneumonia: Extensive bilateral ground glass opacities and pneumonia with severe hypoxia. Unclear etiology ? PJP versus invasive fungal versus disseminated CMV. 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 Lung cytology GMS stain showed septated fungal hyphae with acute angle branching and yeast forms c/w Aspergillus, Fusarium, Scedosporium and other Dematiaceous fungi. 06/19/2018 tracheal aspirate showed usual resp david/ Rothia mucilaginosa. 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 patient has been on bactrim IV for 5 days and IV voriconazole for 4 days witouht any improvement on vent setting still at FiO2 70% p12. - S/P bronch/BAL - pending - s/p voriconazole x 4 days - no improvement, stopped on 06/25 - on amphothericin started on 06/25 - Serum CMV DNA PCR 06/19/2018 13,166 - BAL 06/25/2018 Tigist albicans likely a colonizer - completed vancomycin renally dosed to cover Rothia D5 on 06/28 #2 Acute respiratory failure: Requiring mechanical ventilation.Improving FIo2 70% -->60--> 50 --> 60% p 15 -->12 #3 HIV, likely AIDS:CD4=10 / VL 1,300,000 copies #4 Sepsis: Likely secondary to above. #5 JENNIFER: better today, all renally adjusted #6 Sepsis: still tachycardia, leukocytosis resolved and new fever improving; alison brennan from above #7 Epistaxis on 06/24/2018 s/p packing Recs: to start HD f/u BAL/bronch f/u serum Galactomannan antigen, [id number] assay, histoplasma urine ag and cocci serology - all pending continue renally adjusted liposomal Amphothericin D4 started in light of worsening oxygenation continue bactrim renally adjusted D9 continue ganciclovir renally adjusted for disseminated CMV - discussed with pharmacy continue azithromycin 1200 mg qweek for MAC prophylaxis F/u genotype Overall prognosis grim, consider hospice. Will follow Keke Manzo MD Infectious Diseases Integrated Campaign Manager [facility] ([facility]) M [phone] O [phone] Subjective Date of service: 06/29/18 Principal diagnosis: Acute Hypoxemic Resp Failure; AIDS / HIV positive; Severe Sepsis due to PNA Interval history: Patient remains critically ill intubated on CMV FiO2 100%, p 15, sedated on 1 sedative. Tmax 100.4 ROS unable to obtain Objective - Exam Narrative Exam: General appearance: sedated on the vent FIO2 100% p 15 Eyes: anicteric sclerae, moist conjunctivae; no lid-lag; PERRLA +conjunctivae edema shruthi HENT: Atraumatic; oropharynx +ETT. Neck: Trachea midline; supple, no thyromegaly or lymphadenopathy Lungs: shruthi rhonchi CV: tachycardic Abdomen: Soft, non-tender; no masses or hepatosplenomegaly Extremities: +shruthi arm edema / leg edema Skin: Normal temperature, turgor and texture; no rash, ulcers or subcutaneous nodules Psych: sedated. Neuro: sedated Rust Right IJ TLC - Constitutional Vitals: Vital Signs Temp Pulse Resp BP Pulse Ox 98.7 F 118 H 37 H 89/48 94 06/29/18 08:00 06/29/18 08:52 06/29/18 08:52 06/29/18 08:52 06/29/18 08:52 Temperature -Last 24 Hours Temperature 98.7 F Temperature 100.4 F Temperature 99.8 F Temperature 99.4 F Temperature 98.7 F Temperature 98.7 F - Labs CBC & Chem 7: 06/29/18 08:07 06/29/18 05:15 Labs: Abnormal lab results 06/28/18 06/28/18 06/28/18 Range/Units 12:15 17:43 18:26 WBC (4.5-11.0) K/mm3 RBC (3.65-5.03) M/mm3 Hgb (11.8-15.2) gm/dl Hct (35.5-45.6) % MCV (84-94) fl Plt Count (140-440) K/mm3 POC ABG pH 7.123 L (7.35-7.45) POC ABG pCO2 82.7 H (35-45) POC ABG pO2 (80-105) Sodium (137-145) mmol/L Potassium (3.6-5.0) mmol/L Chloride (98-107) mmol/L BUN (9-20) mg/dL Creatinine (0.8-1.5) mg/dL Glucose (75-100) mg/dL POC Glucose 154 H 194 H (70-105) Calcium (8.4-10.2) mg/dL 06/28/18 06/29/18 06/29/18 Range/Units 22:08 00:12 04:38 WBC (4.5-11.0) K/mm3 RBC (3.65-5.03) M/mm3 Hgb (11.8-15.2) gm/dl Hct (35.5-45.6) % MCV (84-94) fl Plt Count (140-440) K/mm3 POC ABG pH 7.172 L 7.158 L (7.35-7.45) POC ABG pCO2 80.4 H 76.6 H (35-45) POC ABG pO2 143 H (80-105) Sodium (137-145) mmol/L Potassium (3.6-5.0) mmol/L Chloride (98-107) mmol/L BUN (9-20) mg/dL Creatinine (0.8-1.5) mg/dL Glucose (75-100) mg/dL POC Glucose 202 H (70-105) Calcium (8.4-10.2) mg/dL 06/29/18 06/29/18 06/29/18 Range/Units 05:15 05:15 05:32 WBC 12.3 H (4.5-11.0) K/mm3 RBC 1.93 L (3.65-5.03) M/mm3 Hgb 5.9 L* (11.8-15.2) gm/dl Hct 18.2 L* (35.5-45.6) % MCV 95 H (84-94) fl Plt Count 127 L (140-440) K/mm3 POC ABG pH (7.35-7.45) POC ABG pCO2 (35-45) POC ABG pO2 (80-105) Sodium 136 L (137-145) mmol/L Potassium 5.9 H (3.6-5.0) mmol/L Chloride 94.3 L (98-107) mmol/L BUN 139 H (9-20) mg/dL Creatinine 4.2 H D (0.8-1.5) mg/dL Glucose 157 H (75-100) mg/dL POC Glucose 150 H (70-105) Calcium 8.2 L (8.4-10.2) mg/dL 06/29/18 Range/Units 08:07 WBC (4.5-11.0) K/mm3 RBC (3.65-5.03) M/mm3 Hgb 6.0 L (11.8-15.2) gm/dl Hct 18.4 L* (35.5-45.6) % MCV (84-94) fl Plt Count (140-440) K/mm3 POC ABG pH (7.35-7.45) POC ABG pCO2 (35-45) POC ABG pO2 (80-105) Sodium (137-145) mmol/L Potassium (3.6-5.0) mmol/L Chloride (98-107) mmol/L BUN (9-20) mg/dL Creatinine (0.8-1.5) mg/dL Glucose (75-100) mg/dL POC Glucose (70-105) Calcium (8.4-10.2) mg/dL
[2018-06-29] MEDS: NACL 0.9% 1000 ML 1,000 ML IV SCH ×2 (12:33→19:06)
[2018-06-29] MEDS: TYLENOL PO PRN (20:42)
[2018-06-29] MEDS: SUBLIMAZE IV PRN (20:42)
[2018-06-29] MEDS ORDERED: ZEMURON IV ONE (21:32)
[2018-06-29] MEDS: LEVOPHED DRIP 4 MG/NS 250 ML 4 MG/250 ML BAG IV SCH (21:45)
--- NOTE | 2018-06-29 23:07 | XRay Report ---
PROCEDURE: XR CHEST 1V AP TECHNIQUE: Chest radiograph single view. HISTORY: changes in resp status COMPARISONS: None . FINDINGS: Heart: Normal. Mediastinum/Vessels: Normal. Lungs/Pleural space: There is suboptimal expansion of bilateral lungs. Moderate degree diffuse hazin ess is noted involving bilateral lungs with diffuse alveolar opacification.. Pleural spaces are clear .. Bony thorax: No acute osseous abnormality. Life support devices: Right jugular central line is terminating at the level of mid superior vena cav a. Endotracheal tube is terminating about 5 cm above the bernardino. A nasogastric tube is seen to extend down into the abdomen and its tip is not included in the study.. IMPRESSION: Diffuse opacification of bilateral lungs most likely represent pulmonary edema versus bi lateral pneumonia. There is suboptimal expansion of bilateral lungs Endotracheal tube is terminating 5 cm above the bernardino and. This document is electronically signed by Adán Khoury MD., June 29 2018 11:04:56 PM ET
[2018-06-30] MEDS: HumaLOG SUB-Q SCH ×3 (00:38→19:34)
[2018-06-30] MEDS: fentaNYL DRIP Premix 2,000 MCG/100 ML BAG IV SCH ×3 (01:45→22:27)
[2018-06-30] MEDS: DIPRIVAN 10 MG/ML 1,000 MG/100 ML BOTTLE IV SCH ×4 (01:46→21:56)
[2018-06-30] MEDS: TYLENOL PO PRN (01:49)
[2018-06-30] MEDS: DUONEB *Not for PRN Use IH SCH ×5 (03:21→23:53)
[2018-06-30 06:06] LABS: Hemoglobin 7.4 gm/dl (11.8-15.2); Mean Corpuscular HGB Conc 34 % (32-34); Mean Corpuscular Volume 91 fl (84-94); Platelet Count 111 K/mm3 (140-440); Red Blood Count 2.43 M/mm3 (3.65-5.03); Red Cell Distribution Width 15.3 % (13.2-15.2)
[2018-06-30 06:39] LABS: Calcium 7.6 mg/dL (8.4-10.2)
--- NOTE | 2018-06-30 08:56 | Progress Note ---
Assessment and Plan Assessment and plan: Patient is 32-year-old man with hypertension comes emergency room with complaints of shortness of breath, cough for 3days. He was found to have extensive bilateral pneumonia, placed on BiPAP but he failed. The patient had to be intubated. 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 DFA showed rare PJP * Patient has been treated for bilateral pneumonia secondary to above-mentioned organisms * He also developed acute kidney injury likely secondary to Multifactorial etiology in setting of pre-renal injury, ATN secondary sepsis, contrast exposure, voriconazole, bactrim/antibiotic exposure. * Echocardiogram shows an EF of 55-60% with moderate pulmonary hypertension ARDS Acute respiratory failure with hypoxia requiring full mechanical ventilatory support Sepsis secondary to bilateral pneumonia Excessive bilateral pneumonia HIV/AIDS Hyponatremia Epixtasis JENNIFER secondary to Multifactorial in setting of pre-renal injury, ATN secondary sepsis, contrast exposure, voriconazole, bactrim/antibiotic exposure. JENNIFER worsening Severe metabolic acidosis shock liver-Improving Pulmonary hypertension Hyperkalemia Hypotension Anemia Plan of care Gave kayexalate, Insulin for hyperkalemia Continue full ventilatory support as directed by environmental aide Cert Pharmacy Tech and infectious disease input noted antibiotics and antifungal agents being adjusted for renal dose Continue antibiotics/ antifungal as recommended by ID fungal culture ongoing. Since patient is from [place] Hypotension. levophed started VAP precautions Hrmoglobin 7.4 today after PRBC transfusion Awaiting family to assist with patient's medical history and any home medications DVT and GI prophylaxis Hyperkalemia. Give Insulin, kayexalate, Calcium. Will need hemodialysis. Discussed with Nephrology Case discussed with nursing staff. No family present Poor prognosis The high probability of a clinically significant, sudden or life threatening deterioration of the [Pulmonary] system(s) required my full and direct atten tion, intervention and personal management. The aggregate critical care time was [34] minutes. This time is in addition to time spent performing reported procedures but includes the following: [x] Data Review and interpretation [x] Patient assessment and monitoring of vital signs [x] Documentation [x] Medication orders and management History Interval history: Patient remains intubated, Fever Hospitalist Physical - Physical exam Narrative exam: GEN: Intubated, HEENT: Normocephalic, atraumatic, Neck: supple, No JVD Lungs: Bilateral crackles, no wheeze Heart:S1 and S2 regular, no murmurs, rubs or gallop, Abd:soft, non tender, non distended, normal bowel sounds Ext: No edema, no clubbing or cyanosis Neuro: Intubated, sedated - Constitutional Vitals: Temp Pulse Resp BP Pulse Ox 98.3 F 101 H 38 H 104/56 96 06/30/18 03:10 06/30/18 08:32 06/30/18 07:34 06/30/18 08:32 06/30/18 08:32 General appearance: Present: no acute distress Results - Labs CBC & Chem 7: 06/30/18 06:00 06/30/18 Unknown Labs: Laboratory Last Values WBC 18.2 K/mm3 (4.5-11.0) H 06/30/18 06:00 RBC 2.43 M/mm3 (3.65-5.03) L 06/30/18 06:00 Hgb 7.4 gm/dl (11.8-15.2) L 06/30/18 06:00 Hct 22.0 % (35.5-45.6) L 06/30/18 06:00 MCV 91 fl (84-94) 06/30/18 06:00 MCH 30 pg (28-32) 06/30/18 06:00 MCHC 34 % (32-34) 06/30/18 06:00 RDW 15.3 % (13.2-15.2) H 06/30/18 06:00 Plt Count 111 K/mm3 (140-440) L 06/30/18 06:00 Add Manual Diff Complete 06/20/18 08:13 Total Counted 100 06/20/18 08:13 Seg Neutrophils % Tour Conductor 06/20/18 08:13 Seg Neuts % (Manual) 99.0 % (40.0-70.0) H 06/20/18 08:13 Band Neutrophils % 0 % 06/20/18 08:13 Lymphocytes % (Manual) 1.0 % (13.4-35.0) L 06/20/18 08:13 Reactive Lymphs % (Man) 0 % 06/20/18 08:13 Monocytes % (Manual) 0 % (0.0-7.3) 06/20/18 08:13 Eosinophils % (Manual) 0 % (0.0-4.3) 06/20/18 08:13 Basophils % (Manual) 0 % (0.0-1.8) 06/20/18 08:13 Metamyelocytes % 0 % 06/20/18 08:13 Myelocytes % 0 % 06/20/18 08:13 Promyelocytes % 0 % 06/20/18 08:13 Blast Cells % 0 % 06/20/18 08:13 Nucleated RBC % Not Reportable 06/20/18 08:13 Seg Neutrophils # Man 11.7 K/mm3 (1.8-7.7) H 06/20/18 08:13 Band Neutrophils # 0.0 K/mm3 06/20/18 08:13 Abs Lymphs (Manual) 409 cells/uL (850-3900) L 06/19/18 07:11 Lymphocytes # (Manual) 0.1 K/mm3 (1.2-5.4) L 06/20/18 08:13 Abs React Lymphs (Man) 0.0 K/mm3 06/20/18 08:13 Monocytes # (Manual) 0.0 K/mm3 (0.0-0.8) 06/20/18 08:13 Eosinophils # (Manual) 0.0 K/mm3 (0.0-0.4) 06/20/18 08:13 Basophils # (Manual) 0.0 K/mm3 (0.0-0.1) 06/20/18 08:13 Metamyelocytes # 0.0 K/mm3 06/20/18 08:13 Myelocytes # 0.0 K/mm3 06/20/18 08:13 Promyelocytes # 0.0 K/mm3 06/20/18 08:13 Blast Cells # 0.0 K/mm3 06/20/18 08:13 WBC Morphology Not Reportable 06/20/18 08:13 Hypersegmented Neuts Not Reportable 06/20/18 08:13 Hyposegmented Neuts Not Reportable 06/20/18 08:13 Hypogranular Neuts Not Reportable 06/20/18 08:13 Smudge Cells Not Reportable 06/20/18 08:13 Toxic Granulation Not Reportable 06/20/18 08:13 Toxic Vacuolation Not Reportable 06/20/18 08:13 Dohle Bodies Not Reportable 06/20/18 08:13 Pelger-Huet Anomaly Not Reportable 06/20/18 08:13 Loretta Rods Not Reportable 06/20/18 08:13 Platelet Estimate Consistent w auto 06/20/18 08:13 Clumped Platelets Not Reportable 06/20/18 08:13 Plt Clumps, EDTA Not Reportable 06/20/18 08:13 Large Platelets Not Reportable 06/20/18 08:13 Giant Platelets Not Reportable 06/20/18 08:13 Platelet Satelliting Not Reportable 06/20/18 08:13 Plt Morphology Comment Not Reportable 06/20/18 08:13 RBC Morphology Not Reportable 06/20/18 08:13 Dimorphic RBCs Not Reportable 06/20/18 08:13 Polychromasia Not Reportable 06/20/18 08:13 Hypochromasia Not Reportable 06/20/18 08:13 Poikilocytosis 1+ 06/20/18 08:13 Anisocytosis 1+ 06/20/18 08:13 Microcytosis Not Reportable 06/20/18 08:13 Macrocytosis Not Reportable 06/20/18 08:13 Spherocytes Not Reportable 06/20/18 08:13 Pappenheimer Bodies Not Reportable 06/20/18 08:13 Sickle Cells Not Reportable 06/20/18 08:13 Target Cells Not Reportable 06/20/18 08:13 Tear Drop Cells Not Reportable 06/20/18 08:13 Ovalocytes 1+ 06/20/18 08:13 Helmet Cells Not Reportable 06/20/18 08:13 Flores-Atherton Bodies Not Reportable 06/20/18 08:13 [place] Rings Not Reportable 06/20/18 08:13 Lucy Cells Not Reportable 06/20/18 08:13 Bite Cells Not Reportable 06/20/18 08:13 Crenated Cell Not Reportable 06/20/18 08:13 Elliptocytes Not Reportable 06/20/18 08:13 Acanthocytes (Spur) Not Reportable 06/20/18 08:13 Rouleaux Not Reportable 06/20/18 08:13 Hemoglobin C Crystals Not Reportable 06/20/18 08:13 Schistocytes Not Reportable 06/20/18 08:13 Malaria parasites Not Reportable 06/20/18 08:13 Jesus Bodies Not Reportable 06/20/18 08:13 Hem Pathologist Commnt No 06/20/18 08:13 PT 14.5 Sec. (12.2-14.9) 06/29/18 09:50 INR 1.06 (0.87-1.13) 06/29/18 09:50 APTT 28.7 Sec. (24.2-36.6) 06/19/18 Unknown Fibrinogen 405 mg/dl (211-480) 06/24/18 Unknown D-Dimer 8449.09 ng/mlDDU (0-234) H 06/19/18 Unknown POC ABG pH 7.182 (7.35-7.45) L 06/30/18 04:47 POC ABG pCO2 67.7 (35-45) H 06/30/18 04:47 POC ABG pO2 93 (80-105) 06/30/18 04:47 POC ABG HCO3 25.4 06/30/18 04:47 POC ABG Total CO2 27 06/30/18 04:47 POC ABG O2 Sat 94 06/30/18 04:47 POC ABG Base Excess -3 06/30/18 04:47 FiO2 100 % 06/30/18 04:47 Sodium 139 mmol/L (137-145) 06/30/18 Unknown Potassium 5.9 mmol/L (3.6-5.0) H 06/30/18 Unknown Chloride 95.5 mmol/L (98-107) L 06/30/18 Unknown Carbon Dioxide 23 mmol/L (22-30) 06/30/18 Unknown Anion Gap 26 mmol/L 06/30/18 Unknown BUN 164 mg/dL (9-20) H 06/30/18 Unknown Creatinine 5.2 mg/dL (0.8-1.5) H 06/30/18 Unknown Estimated GFR 13 ml/min 06/30/18 Unknown BUN/Creatinine Ratio 32 % 06/30/18 Unknown Glucose 151 mg/dL (75-100) H 06/30/18 Unknown POC Glucose 162 (70-105) H 06/30/18 05:07 Lactic Acid 1.70 mmol/L (0.7-2.0) 06/19/18 05:26 Calcium 7.6 mg/dL (8.4-10.2) L 06/30/18 Unknown Total Bilirubin < 0.20 mg/dL (0.1-1.2) 06/23/18 05:11 Direct Bilirubin < 0.2 mg/dL (0-0.2) 06/19/18 Unknown Indirect Bilirubin 0.2 mg/dL 06/19/18 Unknown AST 63 units/L (5-40) H 06/23/18 05:11 ALT 297 units/L (7-56) H 06/23/18 05:11 Alkaline Phosphatase 127 units/L (35-129) 06/23/18 05:11 Troponin T < 0.010 ng/mL (0.00-0.029) 06/19/18 Unknown C-Reactive Protein 1.60 mg/dL (0.00-1.30) H 06/23/18 18:40 NT-Pro-B Natriuret Pep 226.4 pg/mL (0-450) 06/19/18 Unknown Total Protein 5.3 g/dL (6.3-8.2) L 06/23/18 05:11 Albumin 2.4 g/dL (3.9-5) L 06/23/18 05:11 Albumin/Globulin Ratio 0.8 % 06/23/18 05:11 Triglycerides 223 mg/dL (2-149) H 06/30/18 Unknown Urine Color Yellow (Yellow) 06/24/18 22:45 Urine Turbidity Slightly-cloudy (Clear) 06/24/18 22:45 Urine pH 5.0 (5.0-7.0) 06/24/18 22:45 Ur Specific [place] 1.014 (1.003-1.030) 06/24/18 22:45 Urine Protein <15 mg/dl mg/dL (Negative) 06/24/18 22:45 Urine Glucose (UA) Neg mg/dL (Negative) 06/24/18 22:45 Urine Ketones Neg mg/dL (Negative) 06/24/18 22:45 Urine Blood Neg (Negative) 06/24/18 22:45 Urine Nitrite Neg (Negative) 06/24/18 22:45 Urine Bilirubin Neg (Negative) 06/24/18 22:45 Urine Urobilinogen < 2.0 mg/dL (<2.0) 06/24/18 22:45 Ur Leukocyte Esterase Neg (Negative) 06/24/18 22:45 Urine WBC (Auto) 9.0 /HPF (0.0-6.0) H 06/24/18 22:45 Urine RBC (Auto) 19.0 /HPF (0.0-6.0) 06/24/18 22:45 U Epithel Cells (Auto) < 1.0 /HPF (0-13.0) 06/19/18 08:07 Urine Bacteria (Auto) 1+ /HPF (Negative) 06/24/18 22:45 Hyaline Casts 1 /LPF 06/24/18 22:45 Urine Mucus Few /HPF 06/19/18 08:07 Urine Yeast (Budding) 1+ /HPF 06/24/18 22:45 Urine Eosinophils None seen (None Seen) 06/24/18 22:45 Urine Creatinine 47.2 mg/dL (0.1-20.0) H 06/24/18 22:45 Urine Sodium 40 mmol/L 06/24/18 22:45 Urine Total Protein 25 mg/dL (5-11.8) H 06/24/18 22:45 Random Vancomycin 6.5 ug/mL (0-40.0) 06/25/18 11:40 Urine Opiates Screen Presumptive negative 06/19/18 08:06 Urine Methadone Screen Presumptive negative 06/19/18 08:06 Ur Barbiturates Screen Presumptive negative 06/19/18 08:06 Ur Phencyclidine Scrn Presumptive negative 06/19/18 08:06 Ur Amphetamines Screen Presumptive negative 06/19/18 08:06 U Benzodiazepines Scrn Presumptive positive 06/19/18 08:06 Urine Cocaine Screen Presumptive negative 06/19/18 08:06 U Marijuana (THC) Screen Presumptive negative 06/19/18 08:06 Drugs of Abuse Note Disclamer 06/19/18 08:06 Lymph Enumerat CD4/CD8 0.05 (0.86-5.00) L 06/19/18 07:11 % CD3 Cells 45 % (57-85) L 06/19/18 07:11 Absolute CD3 Count 185 cells/uL (840-3060) L 06/19/18 07:11 % CD4 Cells 2 % (30-61) L 06/19/18 07:11 Absolute CD4 Count 10 cells/uL (490-1740) L 06/19/18 07:11 % CD8 Cells 43 % (12-42) H 06/19/18 07:11 Absolute CD8 Count 167 cells/uL (180-1170) L 06/19/18 07:11 % CD19 Cells 18 % (6-29) 06/19/18 07:11 Absolute CD19 Count 79 cells/uL (110-660) L 06/19/18 07:11 CMV DNA PCR log supervisor blueprinting and photocopy/mL See scanned report 06/19/18 15:16 Hepatitis A IgM Ab Non-reactive (NonReactive) 06/21/18 04:19 Hep Bs Antigen Non-reactive (Negative) 06/21/18 04:19 Hep B Core IgM Ab Non-reactive (NonReactive) 06/21/18 04:19 Hepatitis C Antibody Non-reactive (NonReactive) 06/21/18 04:19 HIV DNA Qual (PCR) Detected (Not Detected) H 06/19/18 09:20 HIV-1 Antibody See scanned results 06/19/18 07:12 HIV-1 RNA PCR copies/ml [id number] Copies/mL H 06/19/18 15:16 HIV-1 RNA (PCR) log 6.11 Log cps/mL H 06/19/18 15:16 HIV-2 Ab (Immunoblot) See scanned results 06/19/18 07:12 HIV 1&2 Antibody Rapid Reactive (Non React) 06/19/18 07:10 HIV P24 Antigen Invalid (Non React) 06/19/18 07:10 Influenza A (Rapid) Negative (Negative) 06/19/18 Unknown Influenza A (RT-PCR) Negative (Negative) 06/21/18 12:30 Influenza B (Rapid) Negative (Negative) 06/19/18 Unknown Influenza B (RT-PCR) Negative (Negative) 06/21/18 12:30 Miscellaneous Test Flexitest 1 H 06/27/18 05:15 Blood Type O POSITIVE 06/29/18 09:50 Antibody Screen Negative 06/29/18 09:50 Crossmatch See Detail 06/29/18 09:50 Nutrition/Malnutrition Assess - Dietary Evaluation Nutrition/Malnutrition Findings: Nutrition Notes Start: 06/19/18 14:17 Freq: Status: Active Protocol: Document 06/29/18 10:02 CP (Rec: 06/29/18 10:09 CP [id number]) Co-Sign 06/29/18 10:02 LP Nutrition Notes Initial or Follow up Reassessment Current Diagnosis Hypertension Other Pertinent Diagnosis SOB, bilateral pneumonia, HIV Current Diet TF Nepro at 50 mL/hr Labs/Tests K 5.9 BUN 139 Cr 4.2 BG 157 Pertinent Medications Reviewed. Height 5 ft 9 in Weight 93 kg [place] Body Weight (kg) 72.72 BMI 30.2 Subjective/Other Information Nepro infusing at goal rate at time of visit. Pt remains on ventilator support. Pt had bilateral edema on his upper extremities. Used his wt from 06/27/18 to calculate needs d/t fluid wt gain. Per RN, pt is tolerating TF. Dialysis order was placed as discussed during rounds. Percent of energy/protein needs met: 99%/93% Burn Absent Trauma Absent #1 Nutrition Diagnosis Inadequate oral intake Diagnosis Progress(for reassessment Continues documentation) Is patient on ventilator? Yes Is Patient Ambulatory and/or Out of Bed No REE-([facility]-confined to bed) [phone] Calculation Used for Recommendations [facility] Additional Notes PRO: 104-173 (1.2 - 2g KG ABW) fluid: 1 ml/kcal Nutrition Intervention Change Diet Order: Continue TF Nutrition Support: Nepro at 50 mL/hr with 100 mL water flush q4h. Kcal 2,160 Protein (gm) 97 Fluid (mL) 872 Goal #1 TF tolerance Goal #2 TF to continue to meet 80-100% of kcal and protein needs. Anticipated Discharge Needs: Unable to determine at this time Follow-Up By: 07/03/18 Additional Comments F/U: TF tolerance/renal function
--- NOTE | 2018-06-30 09:25 | Progress Note ---
Assessment and Plan Acute Hypoxemic Respiratory Failure on MVS ARDS AIDS / HIV positive Severe Sepsis with septic shock due to Pneumonia Hyponatremia Severe metabolic acidosis Lower extremity DVT Acute renal failure -VAP bundle addressed - Continue supplemental oxygen to keep sats > 90% -Wean PEEP and FIO2 as tolerated -ARDS net protocol with lung protective strategies Permissive hypercapnia for now. OK for bicarbonate if pH <7.1 -Diuresis as tolerated by hemodynamics and renal function. Fluid management should be restrictive to allow for oxygenation and ventilation - continue bronchodilators with pulmonary -Vasopressor support wean for MAP >65 -Continue steroids -Continue empiric and targeted anti-infective's per ID recs - Continue enteral nutrition -Aspiration precautions, HOB>40 -Accucheck and monitor for hypoglycemia -Target glucose of 140mg- 180mg/dL - Continue to monito for for drug-drug interaction - Daily SATs and SBT per protocol once his ventilatory needs are minimal - Stress ulcer prophylaxis -Anticoagulation, stop Eliquis. Start heparin infusions for VTE and monitor for bleeding -Critical care bundles addressed CONDITION: CRITICAL PROGNOSIS: POOR CODE STATUS: FULL CODE Needs to have goals of care addresed. Severe sepsis with multiorgan dysfunction, ARDS and HIV/AIDS, prognosis is dismal The high probability of a clinically significant, sudden or life-threatening deterioration of the [cardiac, respiratory] system(s) required my full and direct attention, intervention and personal management. The aggregate critical care time was [35] minutes without overlap. Time includes spent on; [x] Data Review and interpretation [x] Patient assessment and monitoring of vital signs [x] Documentation Subjective Date of service: 06/30/18 Principal diagnosis: Acute Hypoxemic Resp Failure; AIDS / HIV positive; Severe Sepsis due to PNA Interval history: Patient is seen today for: Acute Hypoxemic Respiratory Failure on MVS; AIDS / HIV positive; Severe Sepsis due to Pneumonia; Hyponatremia; Severe metabolic acidosis Seen and examined at bedside; 24hour events reviewed; nursing and respiratory care staff consulted; no adverse overnight events reported to me; ; on fentanyl and propofol; remains on MVS with ongoing desaturations requiring PEEP 15 and FIO2 100%; no seizures reported; no emesis or overt aspiration, Events overnight--severe hypoxemia, hypotension. I managed these remotely with the RN Now on norepinephrine, required a dose of a paralytic to help with his ability to interphase with mechanical ventilatory support. Objective Vital Signs - 12hr 06/29/18 06/29/1806/29/19 22:00 23:01 23:15 Temperature Pulse Rate 126 H 130 H 129 H Pulse Rate [ Anterior Bilateral Throughout] Pulse Rate [ Bilateral] Pulse Rate [ Left Dorsalis Pedis] Respiratory Rate [Anterior Bilateral Throughout] Respiratory Rate [Bilateral ] Blood Pressure 83/33 126/51 123/59 O2 Sat by Pulse 86 92 92 Oximetry 06/29/18 06/30/18 06/30/18 23:42 00:00 00:01 Temperature 99 F Pulse Rate 123 H 125 H Pulse Rate [ Anterior Bilateral Throughout] Pulse Rate [ Bilateral] Pulse Rate [ 123 H Left Dorsalis Pedis] Respiratory Rate [Anterior Bilateral Throughout] Respiratory Rate [Bilateral ] Blood Pressure 130/62 O2 Sat by Pulse 89 89 Oximetry 06/30/18 06/30/18 06/30/18 01:01 02:00 03:01 Temperature Pulse Rate 122 H 115 H 116 H Pulse Rate [ Anterior Bilateral Throughout] Pulse Rate [ Bilateral] Pulse Rate [ Left Dorsalis Pedis] Respiratory Rate [Anterior Bilateral Throughout] Respiratory Rate [Bilateral ] Blood Pressure 124/52 116/54 119/60 O2 Sat by Pulse 90 89 90 Oximetry 06/30/18 06/30/18 06/30/18 03:10 03:22 03:33 Temperature 98.3 F Pulse Rate 115 H Pulse Rate [ 114 H 125 H Anterior Bilateral Throughout] Pulse Rate [ Bilateral] Pulse Rate [ Left Dorsalis Pedis] Respiratory 30 H 31 H Rate [Anterior Bilateral Throughout] Respiratory Rate [Bilateral ] Blood Pressure 117/46 O2 Sat by Pulse 91 Oximetry 06/30/18 06/30/18 06/30/18 04:00 04:01 05:00 Temperature Pulse Rate 112 H 112 H 108 H Pulse Rate [ Anterior Bilateral Throughout] Pulse Rate [ Bilateral] Pulse Rate [ 113 H Left Dorsalis Pedis] Respiratory Rate [Anterior Bilateral Throughout] Respiratory Rate [Bilateral ] Blood Pressure 112/52 130/57 O2 Sat by Pulse 93 93 94 Oximetry 06/30/18 06/30/18 06/30/18 06:01 07:00 07:34 Temperature Pulse Rate 102 H 101 H Pulse Rate [ 132 H Anterior Bilateral Throughout] Pulse Rate [ 136 H Bilateral] Pulse Rate [ Left Dorsalis Pedis] Respiratory 38 H Rate [Anterior Bilateral Throughout] Respiratory 38 H Rate [Bilateral ] Blood Pressure 126/54 104/56 O2 Sat by Pulse 95 96 Oximetry 03/02/19 08:32 Temperature Pulse Rate 101 H Pulse Rate [ Anterior Bilateral Throughout] Pulse Rate [ Bilateral] Pulse Rate [ Left Dorsalis Pedis] Respiratory Rate [Anterior Bilateral Throughout] Respiratory Rate [Bilateral ] Blood Pressure 104/56 O2 Sat by Pulse 96 Oximetry Constitutional: appears uncomfortable, other (young HM normocephalic and atr aumatic with moderately increased respiratory effort at rest) Eyes: non-icteric ENT: oropharynx moist, other (ETT 23 cm SATISH) Neck: supple, no lymphadenopathy, no JVD, other (no thyromegaly) Effort: mildly labored Ascultation: Bilateral: diminished breath sounds, rhonchi Percussion: Bilateral: not dull Cardiovascular: regular rate and rhythm, other (S1,S2, no murmurs, gallops or rubs) Gastrointestinal: normoactive bowel sounds, soft, non-tender, non-distended Integumentary: rash Extremities: no cyanosis, pink and warm, pulses normal, no ischemia or petechiae, edema (bilateral upper extemity ) Neurologic: pupils equal and round, unable to assess Psychiatric: other (unable to assess) CBC and BMP: 06/30/18 06:00 06/30/18 Unknown ABG, PT/INR, D-dimer: ABG POC ABG pH 7.182 (7.35-7.45) L 06/30/18 04:47 POC ABG pCO2 67.7 (35-45) H 06/30/18 04:47 POC ABG pO2 93 (80-105) 06/30/18 04:47 POC ABG HCO3 25.4 06/30/18 04:47 POC ABG Total CO2 27 06/30/18 04:47 POC ABG O2 Sat 94 06/30/18 04:47 PT/INR, D-dimer PT 14.5 Sec. (12.2-14.9) 06/29/18 09:50 INR 1.06 (0.87-1.13) 06/29/18 09:50 D-Dimer 8449.09 ng/mlDDU (0-234) H 06/19/18 Unknown Abnormal lab findings: Abnormal Labs 06/19/18 06/19/18 06/19/18 03:31 07:11 07:42 WBC RBC Hgb Hct MCV RDW Plt Count Seg Neuts % (Manual) Lymphocytes % (Manual) Seg Neutrophils # Man Abs Lymphs (Manual) 409 L Lymphocytes # (Manual) PT INR D-Dimer POC ABG pH 6.974 L POC ABG pCO2 22.0 L 83.4 H POC ABG pO2 28 L 122 H Sodium Potassium Chloride Carbon Dioxide BUN Creatinine Glucose POC Glucose Calcium AST ALT C-Reactive Protein Total Protein Albumin Triglycerides Ur Specific [place] Urine WBC (Auto) Urine Creatinine Urine Total Protein Lymph Enumerat CD4/CD8 0.05 L % CD3 Cells 45 L Absolute CD3 Count 185 L % CD4 Cells 2 L Absolute CD4 Count 10 L % CD8 Cells 43 H Absolute CD8 Count 167 L Absolute CD19 Count 79 L HIV DNA Qual (PCR) HIV-1 RNA PCR copies/ml HIV-1 RNA (PCR) log Miscellaneous Test Crossmatch 06/19/18 06/19/18 06/19/18 08:07 08:16 09:20 WBC RBC Hgb Hct MCV RDW Plt Count Seg Neuts % (Manual) Lymphocytes % (Manual) Seg Neutrophils # Man Abs Lymphs (Manual) Lymphocytes # (Manual) PT INR D-Dimer POC ABG pH 6.996 L POC ABG pCO2 82.4 H POC ABG pO2 Sodium Potassium Chloride Carbon Dioxide BUN Creatinine Glucose POC Glucose Calcium AST ALT C-Reactive Protein Total Protein Albumin Triglycerides Ur Specific [place] 1.060 H Urine WBC (Auto) 8.0 H Urine Creatinine Urine Total Protein Lymph Enumerat CD4/CD8 % CD3 Cells Absolute CD3 Count % CD4 Cells Absolute CD4 Count % CD8 Cells Absolute CD8 Count Absolute CD19 Count HIV DNA Qual (PCR) Detected H HIV-1 RNA PCR copies/ml HIV-1 RNA (PCR) log Miscellaneous Test Crossmatch 06/19/18 06/19/18 06/19/18 09:49 11:15 15:16 WBC RBC Hgb Hct MCV RDW Plt Count Seg Neuts % (Manual) Lymphocytes % (Manual) Seg Neutrophils # Man Abs Lymphs (Manual) Lymphocytes # (Manual) PT INR D-Dimer POC ABG pH 7.198 L 7.206 L POC ABG pCO2 POC ABG pO2 75 L Sodium Potassium Chloride Carbon Dioxide BUN Creatinine Glucose POC Glucose Calcium AST ALT C-Reactive Protein Total Protein Albumin Triglycerides Ur Specific [place] Urine WBC (Auto) Urine Creatinine Urine Total Protein Lymph Enumerat CD4/CD8 % CD3 Cells Absolute CD3 Count % CD4 Cells Absolute CD4 Count % CD8 Cells Absolute CD8 Count Absolute CD19 Count HIV DNA Qual (PCR) HIV-1 RNA PCR copies/ml 0250671 H HIV-1 RNA (PCR) log 6.11 H Miscellaneous Test Crossmatch 06/19/18 06/19/18 06/19/18 18:54 Unknown Unknown WBC 12.9 H RBC Hgb Hct MCV RDW Plt Count Seg Neuts % (Manual) Lymphocytes % (Manual) 5.0 L Seg Neutrophils # Man Abs Lymphs (Manual) Lymphocytes # (Manual) 0.6 L PT 15.9 H INR 1.19 H D-Dimer 8449.09 H POC ABG pH POC ABG pCO2 POC ABG pO2 Sodium Potassium Chloride Carbon Dioxide BUN Creatinine Glucose POC Glucose 196 H Calcium AST ALT C-Reactive Protein Total Protein Albumin Triglycerides Ur Specific [place] Urine WBC (Auto) Urine Creatinine Urine Total Protein Lymph Enumerat CD4/CD8 % CD3 Cells Absolute CD3 Count % CD4 Cells Absolute CD4 Count % CD8 Cells Absolute CD8 Count Absolute CD19 Count HIV DNA Qual (PCR) HIV-1 RNA PCR copies/ml HIV-1 RNA (PCR) log Miscellaneous Test Crossmatch 06/19/18 06/19/18 06/20/18 Unknown Unknown 04:33 WBC RBC Hgb Hct MCV RDW Plt Count Seg Neuts % (Manual) Lymphocytes % (Manual) Seg Neutrophils # Man Abs Lymphs (Manual) Lymphocytes # (Manual) PT INR D-Dimer POC ABG pH 7.249 L POC ABG pCO2 POC ABG pO2 118 H Sodium 129 L Potassium Chloride 90.7 L Carbon Dioxide 17 L BUN Creatinine 0.6 L Glucose 199 H POC Glucose Calcium 8.1 L AST 53 H ALT C-Reactive Protein Total Protein 6.0 L Albumin 2.8 L Triglycerides Ur Specific [place] Urine WBC (Auto) Urine Creatinine Urine Total Protein Lymph Enumerat CD4/CD8 % CD3 Cells Absolute CD3 Count % CD4 Cells Absolute CD4 Count % CD8 Cells Absolute CD8 Count Absolute CD19 Count HIV DNA Qual (PCR) HIV-1 RNA PCR copies/ml HIV-1 RNA (PCR) log Miscellaneous Test Crossmatch 06/20/18 06/20/18 06/20/18 08:13 08:13 12:59 WBC 11.8 H RBC 3.25 L Hgb 9.8 L D Hct 30.4 L D MCV RDW Plt Count Seg Neuts % (Manual) 99.0 H Lymphocytes % (Manual) 1.0 L Seg Neutrophils # Man 11.7 H Abs Lymphs (Manual) Lymphocytes # (Manual) 0.1 L PT INR D-Dimer POC ABG pH POC ABG pCO2 POC ABG pO2 Sodium Potassium Chloride Carbon Dioxide 19 L BUN Creatinine Glucose 223 H POC Glucose 174 H Calcium 6.6 L D AST 1240 H ALT 836 H C-Reactive Protein Total Protein 4.9 L Albumin 2.1 L Triglycerides Ur Specific [place] Urine WBC (Auto) Urine Creatinine Urine Total Protein Lymph Enumerat CD4/CD8 % CD3 Cells Absolute CD3 Count % CD4 Cells Absolute CD4 Count % CD8 Cells Absolute CD8 Count Absolute CD19 Count HIV DNA Qual (PCR) HIV-1 RNA PCR copies/ml HIV-1 RNA (PCR) log Miscellaneous Test Crossmatch 06/20/18 06/20/18 06/21/18 17:42 23:44 04:08 WBC RBC Hgb Hct MCV RDW Plt Count Seg Neuts % (Manual) Lymphocytes % (Manual) Seg Neutrophils # Man Abs Lymphs (Manual) Lymphocytes # (Manual) PT INR D-Dimer POC ABG pH 7.309 L POC ABG pCO2 POC ABG pO2 Sodium Potassium Chloride Carbon Dioxide BUN Creatinine Glucose POC Glucose 177 H 195 H Calcium AST ALT C-Reactive Protein Total Protein Albumin Triglycerides Ur Specific [place] Urine WBC (Auto) Urine Creatinine Urine Total Protein Lymph Enumerat CD4/CD8 % CD3 Cells Absolute CD3 Count % CD4 Cells Absolute CD4 Count % CD8 Cells Absolute CD8 Count Absolute CD19 Count HIV DNA Qual (PCR) HIV-1 RNA PCR copies/ml HIV-1 RNA (PCR) log Miscellaneous Test Crossmatch 06/21/18 06/21/18 06/21/18 04:19 04:19 05:27 WBC 13.8 H RBC 3.02 L Hgb 9.2 L Hct 28.0 L MCV RDW Plt Count Seg Neuts % (Manual) Lymphocytes % (Manual) Seg Neutrophils # Man Abs Lymphs (Manual) Lymphocytes # (Manual) PT INR D-Dimer POC ABG pH POC ABG pCO2 POC ABG pO2 Sodium 135 L Potassium Chloride Carbon Dioxide 21 L BUN Creatinine 0.7 L Glucose 161 H POC Glucose 187 H Calcium 7.2 L AST 390 H ALT 622 H C-Reactive Protein Total Protein 5.3 L Albumin 2.4 L Triglycerides Ur Specific [place] Urine WBC (Auto) Urine Creatinine Urine Total Protein Lymph Enumerat CD4/CD8 % CD3 Cells Absolute CD3 Count % CD4 Cells Absolute CD4 Count % CD8 Cells Absolute CD8 Count Absolute CD19 Count HIV DNA Qual (PCR) HIV-1 RNA PCR copies/ml HIV-1 RNA (PCR) log Miscellaneous Test Crossmatch 06/21/18 06/21/18 06/21/18 11:33 12:32 17:45 WBC RBC Hgb Hct MCV RDW Plt Count Seg Neuts % (Manual) Lymphocytes % (Manual) Seg Neutrophils # Man Abs Lymphs (Manual) Lymphocytes # (Manual) PT INR D-Dimer POC ABG pH POC ABG pCO2 POC ABG pO2 Sodium Potassium Chloride Carbon Dioxide BUN Creatinine Glucose POC Glucose 147 H 172 H Calcium AST ALT C-Reactive Protein Total Protein Albumin Triglycerides Ur Specific [place] Urine WBC (Auto) Urine Creatinine Urine Total Protein Lymph Enumerat CD4/CD8 % CD3 Cells Absolute CD3 Count % CD4 Cells Absolute CD4 Count % CD8 Cells Absolute CD8 Count Absolute CD19 Count HIV DNA Qual (PCR) HIV-1 RNA PCR copies/ml HIV-1 RNA (PCR) log Miscellaneous Test see below H Crossmatch 06/21/18 06/22/18 06/22/18 23:25 04:47 04:47 WBC 11.5 H RBC 2.93 L Hgb 9.0 L Hct 26.5 L MCV RDW Plt Count Seg Neuts % (Manual) Lymphocytes % (Manual) Seg Neutrophils # Man Abs Lymphs (Manual) Lymphocytes # (Manual) PT INR D-Dimer POC ABG pH POC ABG pCO2 POC ABG pO2 Sodium Potassium Chloride Carbon Dioxide BUN 22 H Creatinine Glucose 201 H POC Glucose 152 H Calcium 7.8 L AST 129 H ALT 416 H C-Reactive Protein Total Protein 5.3 L Albumin 2.4 L Triglycerides Ur Specific [place] Urine WBC (Auto) Urine Creatinine Urine Total Protein Lymph Enumerat CD4/CD8 % CD3 Cells Absolute CD3 Count % CD4 Cells Absolute CD4 Count % CD8 Cells Absolute CD8 Count Absolute CD19 Count HIV DNA Qual (PCR) HIV-1 RNA PCR copies/ml HIV-1 RNA (PCR) log Miscellaneous Test Crossmatch 06/22/18 06/22/18 06/22/18 05:23 11:43 17:45 WBC RBC Hgb Hct MCV RDW Plt Count Seg Neuts % (Manual) Lymphocytes % (Manual) Seg Neutrophils # Man Abs Lymphs (Manual) Lymphocytes # (Manual) PT INR D-Dimer POC ABG pH POC ABG pCO2 POC ABG pO2 Sodium Potassium Chloride Carbon Dioxide BUN Creatinine Glucose POC Glucose 170 H 175 H 176 H Calcium AST ALT C-Reactive Protein Total Protein Albumin Triglycerides Ur Specific [place] Urine WBC (Auto) Urine Creatinine Urine Total Protein Lymph Enumerat CD4/CD8 % CD3 Cells Absolute CD3 Count % CD4 Cells Absolute CD4 Count % CD8 Cells Absolute CD8 Count Absolute CD19 Count HIV DNA Qual (PCR) HIV-1 RNA PCR copies/ml HIV-1 RNA (PCR) log Miscellaneous Test Crossmatch 06/23/18 06/23/18 06/23/18 00:24 05:06 05:11 WBC 11.2 H RBC 2.78 L Hgb 8.6 L Hct 25.3 L MCV RDW Plt Count Seg Neuts % (Manual) Lymphocytes % (Manual) Seg Neutrophils # Man Abs Lymphs (Manual) Lymphocytes # (Manual) PT INR D-Dimer POC ABG pH POC ABG pCO2 POC ABG pO2 Sodium Potassium Chloride Carbon Dioxide BUN Creatinine Glucose POC Glucose 178 H 182 H Calcium AST ALT C-Reactive Protein Total Protein Albumin Triglycerides Ur Specific [place] Urine WBC (Auto) Urine Creatinine Urine Total Protein Lymph Enumerat CD4/CD8 % CD3 Cells Absolute CD3 Count % CD4 Cells Absolute CD4 Count % CD8 Cells Absolute CD8 Count Absolute CD19 Count HIV DNA Qual (PCR) HIV-1 RNA PCR copies/ml HIV-1 RNA (PCR) log Miscellaneous Test Crossmatch 06/23/18 06/23/18 06/23/18 05:11 05:51 12:21 WBC RBC Hgb Hct MCV RDW Plt Count Seg Neuts % (Manual) Lymphocytes % (Manual) Seg Neutrophils # Man Abs Lymphs (Manual) Lymphocytes # (Manual) PT INR D-Dimer POC ABG pH POC ABG pCO2 POC ABG pO2 69 L Sodium Potassium Chloride Carbon Dioxide BUN 34 H Creatinine 1.7 H D Glucose 191 H POC Glucose 181 H Calcium 7.5 L AST 63 H ALT 297 H C-Reactive Protein Total Protein 5.3 L Albumin 2.4 L Triglycerides Ur Specific [place] Urine WBC (Auto) Urine Creatinine Urine Total Protein Lymph Enumerat CD4/CD8 % CD3 Cells Absolute CD3 Count % CD4 Cells Absolute CD4 Count % CD8 Cells Absolute CD8 Count Absolute CD19 Count HIV DNA Qual (PCR) HIV-1 RNA PCR copies/ml HIV-1 RNA (PCR) log Miscellaneous Test Crossmatch 06/23/18 06/23/18 06/23/18 13:57 17:00 18:40 WBC RBC Hgb Hct MCV RDW Plt Count Seg Neuts % (Manual) Lymphocytes % (Manual) Seg Neutrophils # Man Abs Lymphs (Manual) Lymphocytes # (Manual) PT INR D-Dimer POC ABG pH POC ABG pCO2 POC ABG pO2 Sodium Potassium Chloride Carbon Dioxide BUN 38 H Creatinine 1.8 H Glucose POC Glucose 196 H Calcium AST ALT C-Reactive Protein 1.60 H Total Protein Albumin Triglycerides Ur Specific [place] Urine WBC (Auto) Urine Creatinine Urine Total Protein Lymph Enumerat CD4/CD8 % CD3 Cells Absolute CD3 Count % CD4 Cells Absolute CD4 Count % CD8 Cells Absolute CD8 Count Absolute CD19 Count HIV DNA Qual (PCR) HIV-1 RNA PCR copies/ml HIV-1 RNA (PCR) log Miscellaneous Test Crossmatch 06/23/18 06/23/18 06/24/18 21:16 23:22 04:12 WBC RBC 2.89 L Hgb 8.8 L Hct 26.9 L MCV RDW Plt Count Seg Neuts % (Manual) Lymphocytes % (Manual) Seg Neutrophils # Man Abs Lymphs (Manual) Lymphocytes # (Manual) PT INR D-Dimer POC ABG pH 7.311 L POC ABG pCO2 47.4 H POC ABG pO2 Sodium Potassium Chloride Carbon Dioxide BUN Creatinine Glucose POC Glucose 165 H Calcium AST ALT C-Reactive Protein Total Protein Albumin Triglycerides Ur Specific [place] Urine WBC (Auto) Urine Creatinine Urine Total Protein Lymph Enumerat CD4/CD8 % CD3 Cells Absolute CD3 Count % CD4 Cells Absolute CD4 Count % CD8 Cells Absolute CD8 Count Absolute CD19 Count HIV DNA Qual (PCR) HIV-1 RNA PCR copies/ml HIV-1 RNA (PCR) log Miscellaneous Test Crossmatch 06/24/18 06/24/18 06/24/18 04:12 04:46 05:24 WBC RBC Hgb Hct MCV RDW Plt Count Seg Neuts % (Manual) Lymphocytes % (Manual) Seg Neutrophils # Man Abs Lymphs (Manual) Lymphocytes # (Manual) PT INR D-Dimer POC ABG pH 7.250 L POC ABG pCO2 55.8 H POC ABG pO2 Sodium Potassium 5.4 H Chloride Carbon Dioxide BUN 44 H Creatinine 2.2 H Glucose 206 H POC Glucose 183 H Calcium 7.5 L AST ALT C-Reactive Protein Total Protein Albumin Triglycerides Ur Specific [place] Urine WBC (Auto) Urine Creatinine Urine Total Protein Lymph Enumerat CD4/CD8 % CD3 Cells Absolute CD3 Count % CD4 Cells Absolute CD4 Count % CD8 Cells Absolute CD8 Count Absolute CD19 Count HIV DNA Qual (PCR) HIV-1 RNA PCR copies/ml HIV-1 RNA (PCR) log Miscellaneous Test Crossmatch 06/24/18 06/24/18 06/24/18 11:14 16:40 17:16 WBC RBC Hgb Hct MCV RDW Plt Count Seg Neuts % (Manual) Lymphocytes % (Manual) Seg Neutrophils # Man Abs Lymphs (Manual) Lymphocytes # (Manual) PT INR D-Dimer POC ABG pH 7.067 L POC ABG pCO2 91.7 H POC ABG pO2 134 H Sodium Potassium Chloride Carbon Dioxide BUN Creatinine Glucose POC Glucose 151 H 195 H Calcium AST ALT C-Reactive Protein Total Protein Albumin Triglycerides Ur Specific [place] Urine WBC (Auto) Urine Creatinine Urine Total Protein Lymph Enumerat CD4/CD8 % CD3 Cells Absolute CD3 Count % CD4 Cells Absolute CD4 Count % CD8 Cells Absolute CD8 Count Absolute CD19 Count HIV DNA Qual (PCR) HIV-1 RNA PCR copies/ml HIV-1 RNA (PCR) log Miscellaneous Test Crossmatch 06/24/18 06/24/18 06/24/18 18:03 22:45 22:45 WBC RBC Hgb Hct MCV RDW Plt Count Seg Neuts % (Manual) Lymphocytes % (Manual) Seg Neutrophils # Man Abs Lymphs (Manual) Lymphocytes # (Manual) PT INR D-Dimer POC ABG pH 7.234 L POC ABG pCO2 59.9 H POC ABG pO2 121 H Sodium Potassium Chloride Carbon Dioxide BUN Creatinine Glucose POC Glucose Calcium AST ALT C-Reactive Protein Total Protein Albumin Triglycerides Ur Specific [place] Urine WBC (Auto) 9.0 H Urine Creatinine 47.2 H Urine Total Protein 25 H Lymph Enumerat CD4/CD8 % CD3 Cells Absolute CD3 Count % CD4 Cells Absolute CD4 Count % CD8 Cells Absolute CD8 Count Absolute CD19 Count HIV DNA Qual (PCR) HIV-1 RNA PCR copies/ml HIV-1 RNA (PCR) log Miscellaneous Test Crossmatch 06/24/18 06/24/18 06/25/18 Unknown 23:59 04:36 WBC RBC Hgb Hct MCV RDW Plt Count Seg Neuts % (Manual) Lymphocytes % (Manual) Seg Neutrophils # Man Abs Lymphs (Manual) Lymphocytes # (Manual) PT 15.6 H INR 1.17 H D-Dimer POC ABG pH 7.200 L POC ABG pCO2 65.3 H POC ABG pO2 Sodium Potassium Chloride Carbon Dioxide BUN Creatinine Glucose POC Glucose 233 H Calcium AST ALT C-Reactive Protein Total Protein Albumin Triglycerides Ur Specific [place] Urine WBC (Auto) Urine Creatinine Urine Total Protein Lymph Enumerat CD4/CD8 % CD3 Cells Absolute CD3 Count % CD4 Cells Absolute CD4 Count % CD8 Cells Absolute CD8 Count Absolute CD19 Count HIV DNA Qual (PCR) HIV-1 RNA PCR copies/ml HIV-1 RNA (PCR) log Miscellaneous Test Crossmatch 06/25/18 06/25/18 06/25/18 05:29 11:12 11:40 WBC RBC 2.67 L Hgb 8.5 L Hct 25.6 L MCV 96 H RDW 16.0 H Plt Count Seg Neuts % (Manual) Lymphocytes % (Manual) Seg Neutrophils # Man Abs Lymphs (Manual) Lymphocytes # (Manual) PT INR D-Dimer POC ABG pH POC ABG pCO2 POC ABG pO2 Sodium Potassium Chloride Carbon Dioxide BUN Creatinine Glucose POC Glucose 212 H 244 H Calcium AST ALT C-Reactive Protein Total Protein Albumin Triglycerides Ur Specific [place] Urine WBC (Auto) Urine Creatinine Urine Total Protein Lymph Enumerat CD4/CD8 % CD3 Cells Absolute CD3 Count % CD4 Cells Absolute CD4 Count % CD8 Cells Absolute CD8 Count Absolute CD19 Count HIV DNA Qual (PCR) HIV-1 RNA PCR copies/ml HIV-1 RNA (PCR) log Miscellaneous Test Crossmatch 06/25/18 06/25/18 06/25/18 11:40 17:18 18:08 WBC RBC Hgb Hct MCV RDW Plt Count Seg Neuts % (Manual) Lymphocytes % (Manual) Seg Neutrophils # Man Abs Lymphs (Manual) Lymphocytes # (Manual) PT INR D-Dimer POC ABG pH 7.206 L POC ABG pCO2 68.1 H POC ABG pO2 Sodium Potassium 5.8 H Chloride Carbon Dioxide BUN 48 H Creatinine 2.1 H Glucose 293 H POC Glucose 264 H Calcium 7.5 L AST ALT C-Reactive Protein Total Protein Albumin Triglycerides Ur Specific [place] Urine WBC (Auto) Urine Creatinine Urine Total Protein Lymph Enumerat CD4/CD8 % CD3 Cells Absolute CD3 Count % CD4 Cells Absolute CD4 Count % CD8 Cells Absolute CD8 Count Absolute CD19 Count HIV DNA Qual (PCR) HIV-1 RNA PCR copies/ml HIV-1 RNA (PCR) log Miscellaneous Test Crossmatch 06/25/18 06/25/18 06/26/18 21:20 23:59 05:10 WBC RBC Hgb Hct MCV RDW Plt Count Seg Neuts % (Manual) Lymphocytes % (Manual) Seg Neutrophils # Man Abs Lymphs (Manual) Lymphocytes # (Manual) PT INR D-Dimer POC ABG pH 7.220 L POC ABG pCO2 65.0 H POC ABG pO2 71 L Sodium Potassium Chloride Carbon Dioxide BUN Creatinine Glucose POC Glucose 231 H 259 H Calcium AST ALT C-Reactive Protein Total Protein Albumin Triglycerides Ur Specific [place] Urine WBC (Auto) Urine Creatinine Urine Total Protein Lymph Enumerat CD4/CD8 % CD3 Cells Absolute CD3 Count % CD4 Cells Absolute CD4 Count % CD8 Cells Absolute CD8 Count Absolute CD19 Count HIV DNA Qual (PCR) HIV-1 RNA PCR copies/ml HIV-1 RNA (PCR) log Miscellaneous Test Crossmatch 06/26/18 06/26/18 06/26/18 05:29 07:25 07:25 WBC 12.0 H RBC 2.69 L Hgb 8.2 L Hct 25.5 L MCV 95 H RDW 15.7 H Plt Count Seg Neuts % (Manual) Lymphocytes % (Manual) Seg Neutrophils # Man Abs Lymphs (Manual) Lymphocytes # (Manual) PT INR D-Dimer POC ABG pH 7.240 L POC ABG pCO2 67.6 H POC ABG pO2 106 H Sodium Potassium 5.2 H Chloride Carbon Dioxide BUN 58 H Creatinine 1.9 H Glucose 219 H POC Glucose Calcium 7.9 L AST ALT C-Reactive Protein Total Protein Albumin Triglycerides Ur Specific [place] Urine WBC (Auto) Urine Creatinine Urine Total Protein Lymph Enumerat CD4/CD8 % CD3 Cells Absolute CD3 Count % CD4 Cells Absolute CD4 Count % CD8 Cells Absolute CD8 Count Absolute CD19 Count HIV DNA Qual (PCR) HIV-1 RNA PCR copies/ml HIV-1 RNA (PCR) log Miscellaneous Test Crossmatch 06/26/18 06/26/18 06/26/18 07:25 12:49 17:42 WBC RBC Hgb Hct MCV RDW Plt Count Seg Neuts % (Manual) Lymphocytes % (Manual) Seg Neutrophils # Man Abs Lymphs (Manual) Lymphocytes # (Manual) PT INR D-Dimer POC ABG pH 7.178 L POC ABG pCO2 73.6 H POC ABG pO2 77 L Sodium Potassium Chloride Carbon Dioxide BUN Creatinine Glucose POC Glucose 276 H Calcium AST ALT C-Reactive Protein Total Protein Albumin Triglycerides 174 H Ur Specific [place] Urine WBC (Auto) Urine Creatinine Urine Total Protein Lymph Enumerat CD4/CD8 % CD3 Cells Absolute CD3 Count % CD4 Cells Absolute CD4 Count % CD8 Cells Absolute CD8 Count Absolute CD19 Count HIV DNA Qual (PCR) HIV-1 RNA PCR copies/ml HIV-1 RNA (PCR) log Miscellaneous Test Crossmatch 06/26/18 06/26/18 06/26/18 18:25 21:24 23:22 WBC RBC Hgb Hct MCV RDW Plt Count Seg Neuts % (Manual) Lymphocytes % (Manual) Seg Neutrophils # Man Abs Lymphs (Manual) Lymphocytes # (Manual) PT INR D-Dimer POC ABG pH 7.152 L POC ABG pCO2 80.6 H POC ABG pO2 Sodium Potassium Chloride Carbon Dioxide BUN Creatinine Glucose POC Glucose 304 H 282 H Calcium AST ALT C-Reactive Protein Total Protein Albumin Triglycerides Ur Specific [place] Urine WBC (Auto) Urine Creatinine Urine Total Protein Lymph Enumerat CD4/CD8 % CD3 Cells Absolute CD3 Count % CD4 Cells Absolute CD4 Count % CD8 Cells Absolute CD8 Count Absolute CD19 Count HIV DNA Qual (PCR) HIV-1 RNA PCR copies/ml HIV-1 RNA (PCR) log Miscellaneous Test Crossmatch 06/27/18 06/27/18 06/27/18 04:05 05:15 05:15 WBC RBC Hgb Hct MCV RDW Plt Count Seg Neuts % (Manual) Lymphocytes % (Manual) Seg Neutrophils # Man Abs Lymphs (Manual) Lymphocytes # (Manual) PT INR D-Dimer POC ABG pH 7.266 L POC ABG pCO2 62.8 H POC ABG pO2 Sodium Potassium 5.5 H Chloride Carbon Dioxide BUN 73 H Creatinine 2.1 H Glucose 211 H POC Glucose Calcium 7.7 L AST ALT C-Reactive Protein Total Protein Albumin Triglycerides Ur Specific [place] Urine WBC (Auto) Urine Creatinine Urine Total Protein Lymph Enumerat CD4/CD8 % CD3 Cells Absolute CD3 Count % CD4 Cells Absolute CD4 Count % CD8 Cells Absolute CD8 Count Absolute CD19 Count HIV DNA Qual (PCR) HIV-1 RNA PCR copies/ml HIV-1 RNA (PCR) log Miscellaneous Test Flexitest 1 H Crossmatch 06/27/18 06/27/18 06/27/18 05:15 05:52 13:10 WBC RBC 2.41 L Hgb 7.6 L Hct 22.4 L MCV RDW Plt Count Seg Neuts % (Manual) Lymphocytes % (Manual) Seg Neutrophils # Man Abs Lymphs (Manual) Lymphocytes # (Manual) PT INR D-Dimer POC ABG pH POC ABG pCO2 POC ABG pO2 Sodium Potassium Chloride Carbon Dioxide BUN Creatinine Glucose POC Glucose 198 H 238 H Calcium AST ALT C-Reactive Protein Total Protein Albumin Triglycerides Ur Specific [place] Urine WBC (Auto) Urine Creatinine Urine Total Protein Lymph Enumerat CD4/CD8 % CD3 Cells Absolute CD3 Count % CD4 Cells Absolute CD4 Count % CD8 Cells Absolute CD8 Count Absolute CD19 Count HIV DNA Qual (PCR) HIV-1 RNA PCR copies/ml HIV-1 RNA (PCR) log Miscellaneous Test Crossmatch 06/27/18 06/27/18 06/27/18 16:12 17:51 23:22 WBC RBC Hgb Hct MCV RDW Plt Count Seg Neuts % (Manual) Lymphocytes % (Manual) Seg Neutrophils # Man Abs Lymphs (Manual) Lymphocytes # (Manual) PT INR D-Dimer POC ABG pH POC ABG pCO2 POC ABG pO2 Sodium Potassium Chloride Carbon Dioxide BUN Creatinine Glucose POC Glucose 174 H 162 H 171 H Calcium AST ALT C-Reactive Protein Total Protein Albumin Triglycerides Ur Specific [place] Urine WBC (Auto) Urine Creatinine Urine Total Protein Lymph Enumerat CD4/CD8 % CD3 Cells Absolute CD3 Count % CD4 Cells Absolute CD4 Count % CD8 Cells Absolute CD8 Count Absolute CD19 Count HIV DNA Qual (PCR) HIV-1 RNA PCR copies/ml HIV-1 RNA (PCR) log Miscellaneous Test Crossmatch 06/28/18 06/28/18 06/28/18 04:36 04:54 05:10 WBC RBC Hgb Hct MCV RDW Plt Count Seg Neuts % (Manual) Lymphocytes % (Manual) Seg Neutrophils # Man Abs Lymphs (Manual) Lymphocytes # (Manual) PT INR D-Dimer POC ABG pH 7.257 L POC ABG pCO2 68.8 H POC ABG pO2 Sodium Potassium Chloride Carbon Dioxide BUN 93 H Creatinine 2.4 H Glucose 186 H POC Glucose 193 H Calcium 8.3 L AST ALT C-Reactive Protein Total Protein Albumin Triglycerides Ur Specific [place] Urine WBC (Auto) Urine Creatinine Urine Total Protein Lymph Enumerat CD4/CD8 % CD3 Cells Absolute CD3 Count % CD4 Cells Absolute CD4 Count % CD8 Cells Absolute CD8 Count Absolute CD19 Count HIV DNA Qual (PCR) HIV-1 RNA PCR copies/ml HIV-1 RNA (PCR) log Miscellaneous Test Crossmatch 06/28/18 06/28/18 06/28/18 12:15 17:43 18:26 WBC RBC Hgb Hct MCV RDW Plt Count Seg Neuts % (Manual) Lymphocytes % (Manual) Seg Neutrophils # Man Abs Lymphs (Manual) Lymphocytes # (Manual) PT INR D-Dimer POC ABG pH 7.123 L POC ABG pCO2 82.7 H POC ABG pO2 Sodium Potassium Chloride Carbon Dioxide BUN Creatinine Glucose POC Glucose 154 H 194 H Calcium AST ALT C-Reactive Protein Total Protein Albumin Triglycerides Ur Specific [place] Urine WBC (Auto) Urine Creatinine Urine Total Protein Lymph Enumerat CD4/CD8 % CD3 Cells Absolute CD3 Count % CD4 Cells Absolute CD4 Count % CD8 Cells Absolute CD8 Count Absolute CD19 Count HIV DNA Qual (PCR) HIV-1 RNA PCR copies/ml HIV-1 RNA (PCR) log Miscellaneous Test Crossmatch 06/28/18 06/29/18 06/29/18 22:08 00:12 04:38 WBC RBC Hgb Hct MCV RDW Plt Count Seg Neuts % (Manual) Lymphocytes % (Manual) Seg Neutrophils # Man Abs Lymphs (Manual) Lymphocytes # (Manual) PT INR D-Dimer POC ABG pH 7.172 L 7.158 L POC ABG pCO2 80.4 H 76.6 H POC ABG pO2 143 H Sodium Potassium Chloride Carbon Dioxide BUN Creatinine Glucose POC Glucose 202 H Calcium AST ALT C-Reactive Protein Total Protein Albumin Triglycerides Ur Specific [place] Urine WBC (Auto) Urine Creatinine Urine Total Protein Lymph Enumerat CD4/CD8 % CD3 Cells Absolute CD3 Count % CD4 Cells Absolute CD4 Count % CD8 Cells Absolute CD8 Count Absolute CD19 Count HIV DNA Qual (PCR) HIV-1 RNA PCR copies/ml HIV-1 RNA (PCR) log Miscellaneous Test Crossmatch 06/29/18 06/29/18 06/29/18 05:15 05:15 05:32 WBC 12.3 H RBC 1.93 L Hgb 5.9 L* Hct 18.2 L* MCV 95 H RDW Plt Count 127 L Seg Neuts % (Manual) Lymphocytes % (Manual) Seg Neutrophils # Man Abs Lymphs (Manual) Lymphocytes # (Manual) PT INR D-Dimer POC ABG pH POC ABG pCO2 POC ABG pO2 Sodium 136 L Potassium 5.9 H Chloride 94.3 L Carbon Dioxide BUN 139 H Creatinine 4.2 H D Glucose 157 H POC Glucose 150 H Calcium 8.2 L AST ALT C-Reactive Protein Total Protein Albumin Triglycerides Ur Specific [place] Urine WBC (Auto) Urine Creatinine Urine Total Protein Lymph Enumerat CD4/CD8 % CD3 Cells Absolute CD3 Count % CD4 Cells Absolute CD4 Count % CD8 Cells Absolute CD8 Count Absolute CD19 Count HIV DNA Qual (PCR) HIV-1 RNA PCR copies/ml HIV-1 RNA (PCR) log Miscellaneous Test Crossmatch 06/29/18 06/29/18 06/29/18 08:07 09:50 11:55 WBC RBC Hgb 6.0 L Hct 18.4 L* MCV RDW Plt Count Seg Neuts % (Manual) Lymphocytes % (Manual) Seg Neutrophils # Man Abs Lymphs (Manual) Lymphocytes # (Manual) PT INR D-Dimer POC ABG pH POC ABG pCO2 POC ABG pO2 Sodium Potassium Chloride Carbon Dioxide BUN Creatinine Glucose POC Glucose 236 H Calcium AST ALT C-Reactive Protein Total Protein Albumin Triglycerides Ur Specific [place] Urine WBC (Auto) Urine Creatinine Urine Total Protein Lymph Enumerat CD4/CD8 % CD3 Cells Absolute CD3 Count % CD4 Cells Absolute CD4 Count % CD8 Cells Absolute CD8 Count Absolute CD19 Count HIV DNA Qual (PCR) HIV-1 RNA PCR copies/ml HIV-1 RNA (PCR) log Miscellaneous Test Crossmatch See Detail 06/29/18 06/30/18 06/30/18 18:29 00:08 04:47 WBC RBC Hgb Hct MCV RDW Plt Count Seg Neuts % (Manual) Lymphocytes % (Manual) Seg Neutrophils # Man Abs Lymphs (Manual) Lymphocytes # (Manual) PT INR D-Dimer POC ABG pH 7.182 L POC ABG pCO2 67.7 H POC ABG pO2 Sodium Potassium Chloride Carbon Dioxide BUN Creatinine Glucose POC Glucose 171 H 159 H Calcium AST ALT C-Reactive Protein Total Protein Albumin Triglycerides Ur Specific [place] Urine WBC (Auto) Urine Creatinine Urine Total Protein Lymph Enumerat CD4/CD8 % CD3 Cells Absolute CD3 Count % CD4 Cells Absolute CD4 Count % CD8 Cells Absolute CD8 Count Absolute CD19 Count HIV DNA Qual (PCR) HIV-1 RNA PCR copies/ml HIV-1 RNA (PCR) log Miscellaneous Test Crossmatch 06/30/18 06/30/18 06/30/18 05:07 06:00 Unknown WBC 18.2 H RBC 2.43 L Hgb 7.4 L Hct 22.0 L MCV RDW 15.3 H Plt Count 111 L Seg Neuts % (Manual) Lymphocytes % (Manual) Seg Neutrophils # Man Abs Lymphs (Manual) Lymphocytes # (Manual) PT INR D-Dimer POC ABG pH POC ABG pCO2 POC ABG pO2 Sodium Potassium 5.9 H Chloride 95.5 L Carbon Dioxide BUN 164 H Creatinine 5.2 H Glucose 151 H POC Glucose 162 H Calcium 7.6 L AST ALT C-Reactive Protein Total Protein Albumin Triglycerides 223 H Ur Specific [place] Urine WBC (Auto) Urine Creatinine Urine Total Protein Lymph Enumerat CD4/CD8 % CD3 Cells Absolute CD3 Count % CD4 Cells Absolute CD4 Count % CD8 Cells Absolute CD8 Count Absolute CD19 Count HIV DNA Qual (PCR) HIV-1 RNA PCR copies/ml HIV-1 RNA (PCR) log Miscellaneous Test Crossmatch Chest x-ray: image reviewed (Persitent bilateral alveolar infiltrates, bilateral pleural effusions, ETT in good position) Allied health notes reviewed: nursing
[2018-06-30] MEDS: PEPCID PO SCH (10:00)
[2018-06-30] MEDS: D5W IV SCH ×2 (10:00)
[2018-06-30] MEDS: BACTRIM IV SCH (10:00)
[2018-06-30] MEDS: SOLU-Medrol IV SCH ×2 (10:00→21:55)
[2018-06-30] MEDS: LANTUS SUB-Q SCH (10:00)
[2018-06-30] MEDS: ABELCET IV SCH (10:00)
[2018-06-30] MEDS ORDERED: LASIX IV ONE ×3 (10:09→16:00)
[2018-06-30] MEDS: SODIUM BICARBONATE 150 MEQ in D5W 1,000 ML IV SCH (12:00)
--- NOTE | 2018-06-30 12:51 | Progress Note ---
Assessment and Plan - Patient Problems (1) Acute tubular necrosis Current Visit: Yes Status: Acute Plan to address problem: Kidney injury acute tubular necrosis of multifactorial etiology secondary to contrast exposure, medications including voriconazole and hypotension. Bactrim could also be contributing either by increasing creatinine by decreasing tubular secretion or Acute tubulo-interstitial nephritis. Kidney indices are worsening with persistent hyperkalemia, however pt started to respond well to IV lasix with increasing UOP. Will hold off on HD for until pt is more hemodynamically stable and cont IV Lasix, IV bicarb gtt. avoid further nephrotoxins, NSAIDs, IV contrast. will assess indications for renal replacement therapy on a daily basis. (2) AIDS (acquired immune deficiency syndrome) Current Visit: Yes Status: Acute Plan to address problem: Continue management by infectious disease consultants (3) Hyperkalemia Current Visit: Yes Status: Acute Plan to address problem: Bactrim may be contribution to hyperkalemia. Treat hyperkalemia medically and discuss with family about initiating dialysis if it remains refractory to medical treatment (4) Acute respiratory failure with hypoxia Current Visit: Yes Status: Acute Plan to address problem: Ventilator management by pulmonary (5) Bilateral pneumonia Current Visit: Yes Status: Acute Qualifiers: Pneumonia type: due to unspecified organism Lung location: unspecified part of lung Qualified Code(s): J18.9 - Pneumonia, unspecified organism Plan to address problem: Continue antibiotics per infectious disease car sales consultant (6) Anemia Current Visit: Yes Status: Acute Plan to address problem: Being managed by poultry husbandman Subjective Date of service: 06/30/18 Principal diagnosis: Acute Hypoxemic Resp Failure; AIDS / HIV positive; Severe Sepsis due to PNA Interval history: pt remains intubated, sedated. on vasopressor support with levophed Objective - Vital Signs Vital signs: Vital Signs - 12hr 06/30/18 06/30/18 06/30/18 01:01 02:00 03:01 Temperature Pulse Rate 122 H 115 H 116 H Pulse Rate [ Anterior Bilateral Throughout] Pulse Rate [ Bilateral] Pulse Rate [ Left Dorsalis Pedis] Respiratory Rate [Anterior Bilateral Throughout] Respiratory Rate [Bilateral ] Blood Pressure 124/52 116/54 119/60 O2 Sat by Pulse 90 89 90 Oximetry 06/30/18 06/30/18 06/30/18 03:10 03:22 03:33 Temperature 98.3 F Pulse Rate 115 H Pulse Rate [ 114 H 125 H Anterior Bilateral Throughout] Pulse Rate [ Bilateral] Pulse Rate [ Left Dorsalis Pedis] Respiratory 30 H 31 H Rate [Anterior Bilateral Throughout] Respiratory Rate [Bilateral ] Blood Pressure 117/46 O2 Sat by Pulse 91 Oximetry 06/30/18 06/30/18 06/30/18 04:00 04:01 05:00 Temperature Pulse Rate 112 H 112 H 108 H Pulse Rate [ Anterior Bilateral Throughout] Pulse Rate [ Bilateral] Pulse Rate [ 113 H Left Dorsalis Pedis] Respiratory Rate [Anterior Bilateral Throughout] Respiratory Rate [Bilateral ] Blood Pressure 112/52 130/57 O2 Sat by Pulse 93 93 94 Oximetry 06/30/18 06/30/18 06/30/18 06:01 07:00 07:34 Temperature Pulse Rate 102 H 101 H Pulse Rate [ 132 H Anterior Bilateral Throughout] Pulse Rate [ 136 H Bilateral] Pulse Rate [ Left Dorsalis Pedis] Respiratory 38 H Rate [Anterior Bilateral Throughout] Respiratory 38 H Rate [Bilateral ] Blood Pressure 126/54 104/56 O2 Sat by Pulse 95 96 Oximetry 06/30/18 08:32 Temperature Pulse Rate 101 H Pulse Rate [ Anterior Bilateral Throughout] Pulse Rate [ Bilateral] Pulse Rate [ Left Dorsalis Pedis] Respiratory Rate [Anterior Bilateral Throughout] Respiratory Rate [Bilateral ] Blood Pressure 104/56 O2 Sat by Pulse 96 Oximetry - General Appearance General appearance: chronically ill, sedated on ventilator, intubated, frail EENT: ATNC, mucous membranes moist Neck: no JVD Respiratory: Present: Decreased Breath Sounds Cardiology: regular, S1S2 Gastrointestinal: normoactive bowel sounds Integumentary: no rash, other (++ b/l LE edema ) Neurologic: other (intubated, sedated ) - Lab 06/30/18 06:00 06/30/18 Unknown Most recent lab results Calcium 7.6 mg/dL (8.4-10.2) L 06/30/18 Unknown Urine Creatinine 47.2 mg/dL (0.1-20.0) H 06/24/18 22:45 Urine Sodium 40 mmol/L 06/24/18 22:45 Urine Total Protein 25 mg/dL (5-11.8) H 06/24/18 22:45 Medications & Allergies - Medications Allergies/Adverse Reactions: Allergies No Known Allergies Allergy (Verified 06/19/18 06:10) Home Medications: Home Medications Medication Instructions Recorded Confirmed Last Taken Type ALBUTEROL Inhaler (OR & NICU) 2 puff IH QID PRN 06/19/18 06/19/18 Unknown History [Proair] Pantoprazole [Protonix] 40 mg PO QDAY 06/19/18 06/19/18 Unknown History levoFLOXacin [Levaquin TAB] 500 mg PO QDAY 06/19/18 06/19/18 Unknown History Active Medications: Generic Name Dose Route Start Last Admin Trade Name Freq PRN Reason Stop Dose Admin Acetaminophen 650 mg 06/19/18 06:30 06/30/18 01:49 Tylenol PO 650 mg Q4H PRN Administration Pain MILD(1-3)/Fever >100.5/[place] Albuterol/Ipratropium 1 ampul 06/26/18 14:00 06/30/18 07:33 Duoneb *Not For Prn Use* IH 1 ampul Q6HRT [place] Administration Lipase/Protease/Amylase 1 each 06/19/18 16:02 Pancreaze 10,500 Unit FEEDTUBE PRN PRN For Clogged Feeding Tube Azithromycin 1,200 mg 06/25/18 11:00 06/25/18 12:05 Zithromax PO 1,200 mg Mo [place] Administration Famotidine 20 mg 06/29/18 10:00 06/29/18 10:14 Pepcid PO 20 mg DAILY [place] Administration Fentanyl 50 mcg 06/19/18 06:00 06/29/18 20:42 Sublimaze IV 50 mcg Q10MIN PRN Administration ANALGESIA Furosemide 40 mg 06/30/18 16:00 Lasix IV 06/30/18 16:01 ONCE ONE Hydrophilic Ointment 1 applic 06/19/18 06:00 Vaseline Lip Therapy TP Q2HR PRN Dry Lips Fentanyl Citrate 2,000 mcg in 100 mls @ 3.86 mls/hr 06/19/18 06:00 06/30/18 01:45 Fentanyl Drip Premix IV 3 mcg/kg/hr TITR [place] 11.581 mls/hr Administration Protocol 1 MCG/KG/HR Norepinephrine 4 mg in 250 mls @ 7.5 mls/hr 06/19/18 15:00 06/30/18 05:43 Levophed Drip 4 Mg/Ns 250 Ml IV 2 mcg/min TITR [place] 7.5 mls/hr Titration Protocol 2 MCG/MIN Propofol 1,000 mg in 100 mls @ 2.601 mls/hr 06/24/18 15:00 06/30/18 05:17 Diprivan 10 Mg/Ml IV 50 mcg/kg/min TITR [place] 26.01 mls/hr Administration Protocol 5 MCG/KG/MIN Dextrose 500 mls @ 5 mls/hr 06/25/18 08:56 06/28/18 11:07 D5w IV 5 mls/hr PRN PRN Administration FLUSH BEFORE AND AFTER AMPHO B Sodium Chloride 1,000 mls @ 100 mls/hr 06/27/18 12:00 06/29/18 19:06 Nacl 0.9% 1000 Ml IV 75 mls/hr DIRECT [place] Administration Trimethoprim/Sulfamethoxazole 275 mls @ 350 mls/hr 06/29/18 10:00 06/29/18 13:00 400 mg/ Dextrose IV Infused DAILY [facility] Infusion Protocol Amphotericin B 250 mg/ 550 mls @ 250 mls/hr 06/30/18 10:00 Dextrose IV Q48HR [facility] Ganciclovir Sodium 120 mg/ 250 mls @ 100 mls/hr 07/02/18 10:00 Sodium Chloride IV MoWeFr [facility] Vasopressin 20 unit/ Sodium 101 mls @ 9.09 mls/hr 06/29/18 23:00 Chloride IV TITR [facility] Protocol 0.03 UNITS/MIN Insulin Glargine 10 units 06/26/18 13:00 06/29/18 10:17 Lantus SUB-Q 10 units DAILY [facility] Administration Insulin Human Lispro 0 unit 06/20/18 13:00 06/30/18 05:44 Humalog SUB-Q Not Given Q6HR [facility] Protocol Methylprednisolone Sodium Succinate 40 mg 06/19/18 22:00 06/29/18 22:36 Solu-Medrol IV 40 mg Q12HR [facility] Administration Multi-Ingred Cream/Lotion/Oil/Oint 1 applic 06/19/18 06:00 Artificial Tears Ophth Oint OU Q4HR PRN Dry Eye(s) Ondansetron HCl 4 mg 06/19/18 06:30 Zofran IV Q8H PRN Nausea And Vomiting Phenylephrine HCl 2 spray 06/24/18 06:07 06/25/18 05:35 Thompson-Synephrine NS 2 spray Q4H PRN Administration Congestion Quetiapine Fumarate 200 mg 06/21/18 22:00 06/29/18 22:35 Seroquel PO 200 mg BID [place] Administration Simple Syrup 15 ml 06/19/18 16:02 Simple Syrup FEEDTUBE PRN PRN Hypoglycemia Simple Syrup 30 ml 06/19/18 16:02 Simple Syrup FEEDTUBE PRN PRN Hypoglycemia Sodium Bicarbonate 325 mg 06/19/18 16:02 Sodium Bicarbonate FEEDTUBE PRN PRN For Clogged Feeding Tube Sodium Chloride 10 ml 06/19/18 10:00 06/29/18 22:36 Sodium Chloride Flush Syringe 10 Ml IV 10 ml BID [place] Administration Sodium Chloride 10 ml 06/19/18 06:30 Sodium Chloride Flush Syringe 10 Ml IV PRN PRN LINE FLUSH
[2018-06-30] MEDS: SODIUM CHLORIDE FLUSH SYRINGE 10 ML IV SCH ×2 (18:02→21:55)
[2018-06-30] MEDS: Vasostrict 20 UNIT in NACL 0.9% 100 ML IV SCH (21:13)
[2018-06-30] MEDS: SUBLIMAZE IV PRN (21:56)
[2018-07-01] MEDS: HumaLOG SUB-Q SCH ×4 (00:19→18:29)
[2018-07-01] MEDS: DIPRIVAN 10 MG/ML 1,000 MG/100 ML BOTTLE IV SCH ×3 (01:46→16:38)
--- NOTE | 2018-07-01 02:55 | XRay Report ---
PROCEDURE: XR CHEST 1V AP TECHNIQUE: Chest radiograph single view. HISTORY: ARDS, bilateral pleural effusions COMPARISONS: 06/29/2018 . FINDINGS: Heart: The heart is mildly enlarged.. Mediastinum/Vessels: The lungs appear diffusely congested.. Lungs/Pleural space: There is stable diffuse airspace disease throughout both lungs. There are bilat eral effusions.. Bony thorax: No acute osseous abnormality. Life support devices: The ET tube and NG tube appear in good position. The tip of the right internal jugular line is in good position in the SVC. IMPRESSION: Stable diffuse bilateral airspace disease with effusions. Satisfactory position of tubes and lines.. This document is electronically signed by Cosme Crystal MD., July 01 2018 02:53:10 AM ET
[2018-07-01] MEDS: DUONEB *Not for PRN Use IH SCH ×4 (03:28→20:00)
[2018-07-01] MEDS: LEVOPHED DRIP 4 MG/NS 250 ML 4 MG/250 ML BAG IV SCH (03:39)
[2018-07-01] MEDS: SODIUM BICARBONATE 150 MEQ in D5W 1,000 ML IV SCH ×2 (05:47→15:51)
[2018-07-01 06:38] LABS: Hemoglobin 6.5 gm/dl (11.8-15.2); Mean Corpuscular HGB Conc 32 % (32-34); Mean Corpuscular Volume 93 fl (84-94); Red Blood Count 2.14 M/mm3 (3.65-5.03); Red Cell Distribution Width 15.9 % (13.2-15.2)
[2018-07-01 06:43] LABS: Platelet Count 94 K/mm3 (140-440)
[2018-07-01] MEDS ORDERED: DIAMOX IV ONE ×2 (06:57→08:00)
[2018-07-01 07:07] LABS: Calcium 6.7 mg/dL (8.4-10.2)
[2018-07-01 07:21] LABS: Hematocrit 20.5 % (35.5-45.6); Hemoglobin 6.6 gm/dl (11.8-15.2)
[2018-07-01] MEDS ORDERED: WATER FOR INJ STERILE IV ONE (08:00)
[2018-07-01] MEDS: Vasostrict 20 UNIT in NACL 0.9% 100 ML IV SCH (08:25)
[2018-07-01] MEDS: fentaNYL DRIP Premix 2,000 MCG/100 ML BAG IV SCH ×2 (08:29→16:23)
[2018-07-01] MEDS ORDERED: NACL 0.9% 500 ML 500 ML IV ONE (08:29)
[2018-07-01] MEDS ORDERED: HumuLIN R IV STA (08:30)
[2018-07-01] MEDS ORDERED: CALCIUM GLUCONATE 1,000 MG in NACL 0.9% 100 ML IV ONE (08:30)
[2018-07-01] MEDS ORDERED: D50W (25GM) Vial IV STA (08:32)
--- NOTE | 2018-07-01 08:34 | Progress Note ---
Assessment and Plan Assessment and plan: Patient is 32-year-old man with hypertension comes emergency room with complaints of shortness of breath, cough for 3days. He was found to have extensive bilateral pneumonia, placed on BiPAP but he failed. The patient had to be intubated. 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 DFA showed rare PJP * Patient has been treated for bilateral pneumonia secondary to above-mentioned organisms * He also developed acute kidney injury likely secondary to Multifactorial etiology in setting of pre-renal injury, ATN secondary sepsis, contrast exposure, voriconazole, bactrim/antibiotic exposure. * Echocardiogram shows an EF of 55-60% with moderate pulmonary hypertension ARDS Acute respiratory failure with hypoxia requiring full mechanical ventilatory support Sepsis secondary to bilateral pneumonia Excessive bilateral pneumonia HIV/AIDS Hyponatremia Epixtasis JENNIFER secondary to Multifactorial in setting of pre-renal injury, ATN secondary sepsis, contrast exposure, voriconazole, bactrim/antibiotic exposure. JENNIFER worsening Severe metabolic acidosis shock liver-Improving Pulmonary hypertension Hyperkalemia Hypotension Anemia due to acute blood loss from hematuria Gross hematuria Plan of care Give kayexalate, Insulin for hyperkalemia Continue full ventilatory support as directed by tube laser operator Sheep Sorter and infectious disease input noted antibiotics and antifungal agents being adjusted for renal dose Continue antibiotics/ antifungal as recommended by ID fungal culture ongoing. Since patient is from [place] Hypotension. On Levophed, Vasopressin VAP precautions Hemoglobin 6.6 today. Transfuse 2 Units PRBC DVT and GI prophylaxis Hyperkalemia. Give Insulin, kayexalate, Calcium. Will need hemodialysis. Discussed with Nephrology Gross hematuria after muir catheter placed yesterday. Transfuse blood. Consult Urology. cannot do CT because to unstable to go for CT Abd Case discussed with nursing staff. No family present Poor prognosis The high probability of a clinically significant, sudden or life threatening deterioration of the [Pulmonary] system(s) required my full and direct attention, intervention and personal management. The aggregate critical care time was [32] minutes. This time is in addition to time spent performing reported procedures but includes the following: [x] Data Review and interpretation [x] Patient assessment and monitoring of vital signs [x] Documentation [x] Medication orders and management History Interval history: Patient remains intubated, Fever Gross hematuria Hospitalist Physical - Physical exam Narrative exam: GEN: Intubated, HEENT: Normocephalic, atraumatic, Neck: supple, No JVD Lungs: Bilateral crackles, no wheeze Heart:S1 and S2 regular, no murmurs, rubs or gallop, Abd:soft, non tender, non distended, normal bowel sounds Ext: Edema all ext, no clubbing or cyanosis Neuro: Intubated, sedated Skin:anasarca - Constitutional Vitals: Temp Pulse Resp BP Pulse Ox 97.2 F L 90 30 H 98/49 99 07/01/18 03:19 07/01/18 07:00 07/01/18 07:00 07/01/18 07:00 07/01/18 07:00 General appearance: Present: no acute distress Results - Labs CBC & Chem 7: 07/01/18 06:52 07/01/18 06:00 Labs: Laboratory Last Values WBC 17.9 K/mm3 (4.5-11.0) H 07/01/18 06:00 RBC 2.14 M/mm3 (3.65-5.03) L 07/01/18 06:00 Hgb 6.6 gm/dl (11.8-15.2) L 07/01/18 06:52 Hct 20.5 % (35.5-45.6) L 07/01/18 06:52 MCV 93 fl (84-94) 07/01/18 06:00 MCH 30 pg (28-32) 07/01/18 06:00 MCHC 32 % (32-34) 07/01/18 06:00 RDW 15.9 % (13.2-15.2) H 07/01/18 06:00 Plt Count 94 K/mm3 (140-440) L 07/01/18 06:00 Add Manual Diff Complete 06/20/18 08:13 Total Counted 100 06/20/18 08:13 Seg Neutrophils % Rn Family 06/20/18 08:13 Seg Neuts % (Manual) 99.0 % (40.0-70.0) H 06/20/18 08:13 Band Neutrophils % 0 % 06/20/18 08:13 Lymphocytes % (Manual) 1.0 % (13.4-35.0) L 06/20/18 08:13 Reactive Lymphs % (Man) 0 % 06/20/18 08:13 Monocytes % (Manual) 0 % (0.0-7.3) 06/20/18 08:13 Eosinophils % (Manual) 0 % (0.0-4.3) 06/20/18 08:13 Basophils % (Manual) 0 % (0.0-1.8) 06/20/18 08:13 Metamyelocytes % 0 % 06/20/18 08:13 Myelocytes % 0 % 06/20/18 08:13 Promyelocytes % 0 % 06/20/18 08:13 Blast Cells % 0 % 06/20/18 08:13 Nucleated RBC % Not Reportable 06/20/18 08:13 Seg Neutrophils # Man 11.7 K/mm3 (1.8-7.7) H 06/20/18 08:13 Band Neutrophils # 0.0 K/mm3 06/20/18 08:13 Abs Lymphs (Manual) 409 cells/uL (850-3900) L 06/19/18 07:11 Lymphocytes # (Manual) 0.1 K/mm3 (1.2-5.4) L 06/20/18 08:13 Abs React Lymphs (Man) 0.0 K/mm3 06/20/18 08:13 Monocytes # (Manual) 0.0 K/mm3 (0.0-0.8) 06/20/18 08:13 Eosinophils # (Manual) 0.0 K/mm3 (0.0-0.4) 06/20/18 08:13 Basophils # (Manual) 0.0 K/mm3 (0.0-0.1) 06/20/18 08:13 Metamyelocytes # 0.0 K/mm3 06/20/18 08:13 Myelocytes # 0.0 K/mm3 06/20/18 08:13 Promyelocytes # 0.0 K/mm3 06/20/18 08:13 Blast Cells # 0.0 K/mm3 06/20/18 08:13 WBC Morphology Not Reportable 06/20/18 08:13 Hypersegmented Neuts Not Reportable 06/20/18 08:13 Hyposegmented Neuts Not Reportable 06/20/18 08:13 Hypogranular Neuts Not Reportable 06/20/18 08:13 Smudge Cells Not Reportable 06/20/18 08:13 Toxic Granulation Not Reportable 06/20/18 08:13 Toxic Vacuolation Not Reportable 06/20/18 08:13 Dohle Bodies Not Reportable 06/20/18 08:13 Pelger-Huet Anomaly Not Reportable 06/20/18 08:13 Loretta Rods Not Reportable 06/20/18 08:13 Platelet Estimate Consistent w auto 06/20/18 08:13 Clumped Platelets Not Reportable 06/20/18 08:13 Plt Clumps, EDTA Not Reportable 06/20/18 08:13 Large Platelets Not Reportable 06/20/18 08:13 Giant Platelets Not Reportable 06/20/18 08:13 Platelet Satelliting Not Reportable 06/20/18 08:13 Plt Morphology Comment Not Reportable 06/20/18 08:13 RBC Morphology Not Reportable 06/20/18 08:13 Dimorphic RBCs Not Reportable 06/20/18 08:13 Polychromasia Not Reportable 06/20/18 08:13 Hypochromasia Not Reportable 06/20/18 08:13 Poikilocytosis 1+ 06/20/18 08:13 Anisocytosis 1+ 06/20/18 08:13 Microcytosis Not Reportable 06/20/18 08:13 Macrocytosis Not Reportable 06/20/18 08:13 Spherocytes Not Reportable 06/20/18 08:13 Pappenheimer Bodies Not Reportable 06/20/18 08:13 Sickle Cells Not Reportable 06/20/18 08:13 Target Cells Not Reportable 06/20/18 08:13 Tear Drop Cells Not Reportable 06/20/18 08:13 Ovalocytes 1+ 06/20/18 08:13 Helmet Cells Not Reportable 06/20/18 08:13 [place] Bodies Not Reportable 06/20/18 08:13 [place] Rings Not Reportable 06/20/18 08:13 [place] Cells Not Reportable 06/20/18 08:13 Bite Cells Not Reportable 06/20/18 08:13 Crenated Cell Not Reportable 06/20/18 08:13 Elliptocytes Not Reportable 06/20/18 08:13 Acanthocytes (Spur) Not Reportable 06/20/18 08:13 Rouleaux Not Reportable 06/20/18 08:13 Hemoglobin C Crystals Not Reportable 06/20/18 08:13 Schistocytes Not Reportable 06/20/18 08:13 Malaria parasites Not Reportable 06/20/18 08:13 Jesus Bodies Not Reportable 06/20/18 08:13 Hem Pathologist Commnt No 06/20/18 08:13 PT 14.5 Sec. (12.2-14.9) 06/29/18 09:50 INR 1.06 (0.87-1.13) 06/29/18 09:50 APTT 28.7 Sec. (24.2-36.6) 06/19/18 Unknown Fibrinogen 405 mg/dl (211-480) 06/24/18 Unknown D-Dimer 8449.09 ng/mlDDU (0-234) H 06/19/18 Unknown POC ABG pH 7.060 (7.35-7.45) L 07/01/18 04:47 POC ABG pCO2 121.0 (35-45) H 07/01/18 04:47 POC ABG pO2 100 (80-105) 07/01/18 04:47 POC ABG HCO3 34.2 07/01/18 04:47 POC ABG Total CO2 38 07/01/18 04:47 POC ABG O2 Sat 93 07/01/18 04:47 POC ABG Base Excess 4 07/01/18 04:47 FiO2 100 % 07/01/18 04:47 Sodium 141 mmol/L (137-145) 07/01/18 06:00 Potassium 5.8 mmol/L (3.6-5.0) H 07/01/18 06:00 Chloride 94.1 mmol/L (98-107) L 07/01/18 06:00 Carbon Dioxide 30 mmol/L (22-30) D 07/01/18 06:00 Anion Gap 23 mmol/L 07/01/18 06:00 BUN 144 mg/dL (9-20) H 07/01/18 06:00 Creatinine 3.1 mg/dL (0.8-1.5) H 07/01/18 06:00 Estimated GFR 23 ml/min 07/01/18 06:00 BUN/Creatinine Ratio 46 % 07/01/18 06:00 Glucose 208 mg/dL (75-100) H 07/01/18 06:00 POC Glucose 214 (70-105) H 07/01/18 05:43 Lactic Acid 1.70 mmol/L (0.7-2.0) 06/19/18 05:26 Calcium 6.7 mg/dL (8.4-10.2) L 07/01/18 06:00 Total Bilirubin < 0.20 mg/dL (0.1-1.2) 06/23/18 05:11 Direct Bilirubin < 0.2 mg/dL (0-0.2) 06/19/18 Unknown Indirect Bilirubin 0.2 mg/dL 06/19/18 Unknown AST 63 units/L (5-40) H 06/23/18 05:11 ALT 297 units/L (7-56) H 06/23/18 05:11 Alkaline Phosphatase 127 units/L (35-129) 06/23/18 05:11 Troponin T < 0.010 ng/mL (0.00-0.029) 06/19/18 Unknown C-Reactive Protein 1.60 mg/dL (0.00-1.30) H 06/23/18 18:40 NT-Pro-B Natriuret Pep 226.4 pg/mL (0-450) 06/19/18 Unknown Total Protein 5.3 g/dL (6.3-8.2) L 06/23/18 05:11 Albumin 2.4 g/dL (3.9-5) L 06/23/18 05:11 Albumin/Globulin Ratio 0.8 % 06/23/18 05:11 Triglycerides 223 mg/dL (2-149) H 06/30/18 Unknown Urine Color Yellow (Yellow) 06/24/18 22:45 Urine Turbidity Slightly-cloudy (Clear) 06/24/18 22:45 Urine pH 5.0 (5.0-7.0) 06/24/18 22:45 Ur Specific [place] 1.014 (1.003-1.030) 06/24/18 22:45 Urine Protein <15 mg/dl mg/dL (Negative) 06/24/18 22:45 Urine Glucose (UA) Neg mg/dL (Negative) 06/24/18 22:45 Urine Ketones Neg mg/dL (Negative) 06/24/18 22:45 Urine Blood Neg (Negative) 06/24/18 22:45 Urine Nitrite Neg (Negative) 06/24/18 22:45 Urine Bilirubin Neg (Negative) 06/24/18 22:45 Urine Urobilinogen < 2.0 mg/dL (<2.0) 06/24/18 22:45 Ur Leukocyte Esterase Neg (Negative) 06/24/18 22:45 Urine WBC (Auto) 9.0 /HPF (0.0-6.0) H 06/24/18 22:45 Urine RBC (Auto) 19.0 /HPF (0.0-6.0) 06/24/18 22:45 U Epithel Cells (Auto) < 1.0 /HPF (0-13.0) 06/19/18 08:07 Urine Bacteria (Auto) 1+ /HPF (Negative) 06/24/18 22:45 Hyaline Casts 1 /LPF 06/24/18 22:45 Urine Mucus Few /HPF 06/19/18 08:07 Urine Yeast (Budding) 1+ /HPF 06/24/18 22:45 Urine Eosinophils None seen (None Seen) 06/24/18 22:45 Urine Creatinine 47.2 mg/dL (0.1-20.0) H 06/24/18 22:45 Urine Sodium 40 mmol/L 06/24/18 22:45 Urine Total Protein 25 mg/dL (5-11.8) H 06/24/18 22:45 Random Vancomycin 6.5 ug/mL (0-40.0) 06/25/18 11:40 Urine Opiates Screen Presumptive negative 06/19/18 08:06 Urine Methadone Screen Presumptive negative 06/19/18 08:06 Ur Barbiturates Screen Presumptive negative 06/19/18 08:06 Ur Phencyclidine Scrn Presumptive negative 06/19/18 08:06 Ur Amphetamines Screen Presumptive negative 06/19/18 08:06 U Benzodiazepines Scrn Presumptive positive 06/19/18 08:06 Urine Cocaine Screen Presumptive negative 06/19/18 08:06 U Marijuana (THC) Screen Presumptive negative 06/19/18 08:06 Drugs of Abuse Note Disclamer 06/19/18 08:06 Lymph Enumerat CD4/CD8 0.05 (0.86-5.00) L 06/19/18 07:11 % CD3 Cells 45 % (57-85) L 06/19/18 07:11 Absolute CD3 Count 185 cells/uL (840-3060) L 06/19/18 07:11 % CD4 Cells 2 % (30-61) L 06/19/18 07:11 Absolute CD4 Count 10 cells/uL (490-1740) L 06/19/18 07:11 % CD8 Cells 43 % (12-42) H 06/19/18 07:11 Absolute CD8 Count 167 cells/uL (180-1170) L 06/19/18 07:11 % CD19 Cells 18 % (6-29) 06/19/18 07:11 Absolute CD19 Count 79 cells/uL (110-660) L 06/19/18 07:11 CMV DNA PCR log copyist/mL See scanned report 06/19/18 15:16 Hepatitis A IgM Ab Non-reactive (NonReactive) 06/21/18 04:19 Hep Bs Antigen Non-reactive (Negative) 06/21/18 04:19 Hep B Core IgM Ab Non-reactive (NonReactive) 06/21/18 04:19 Hepatitis C Antibody Non-reactive (NonReactive) 06/21/18 04:19 HIV DNA Qual (PCR) Detected (Not Detected) H 06/19/18 09:20 HIV-1 Antibody See scanned results 06/19/18 07:12 HIV-1 RNA PCR copies/ml [id number] Copies/mL H 06/19/18 15:16 HIV-1 RNA (PCR) log 6.11 Log cps/mL H 06/19/18 15:16 HIV-2 Ab (Immunoblot) See scanned results 06/19/18 07:12 HIV 1&2 Antibody Rapid Reactive (Non React) 06/19/18 07:10 HIV P24 Antigen Invalid (Non React) 06/19/18 07:10 Influenza A (Rapid) Negative (Negative) 06/19/18 Unknown Influenza A (RT-PCR) Negative (Negative) 06/21/18 12:30 Influenza B (Rapid) Negative (Negative) 06/19/18 Unknown Influenza B (RT-PCR) Negative (Negative) 06/21/18 12:30 Miscellaneous Test Flexitest 1 H 06/27/18 05:15 Blood Type O POSITIVE 06/29/18 09:50 Antibody Screen Negative 06/29/18 09:50 Crossmatch See Detail 06/29/18 09:50 Nutrition/Malnutrition Assess - Dietary Evaluation Nutrition/Malnutrition Findings: Nutrition Notes Start: 06/19/18 14:17 Freq: Status: Active Protocol: Document 06/29/18 10:02 CP (Rec: 06/29/18 10:09 CP [id number]) Co-Sign 06/29/18 10:02 LP Nutrition Notes Initial or Follow up Reassessment Current Diagnosis Hypertension Other Pertinent Diagnosis SOB, bilateral pneumonia, HIV Current Diet TF Nepro at 50 mL/hr Labs/Tests K 5.9 BUN 139 Cr 4.2 BG 157 Pertinent Medications Reviewed. Height 5 ft 9 in Weight 93 kg [place] Body Weight (kg) 72.72 BMI 30.2 Subjective/Other Information Nepro infusing at goal rate at time of visit. Pt remains on ventilator support. Pt had bilateral edema on his upper extremities. Used his wt from 06/27/18 to calculate needs d/t fluid wt gain. Per RN, pt is tolerating TF. Dialysis order was placed as discussed during rounds. Percent of energy/protein needs met: 99%/93% Burn Absent Trauma Absent #1 Nutrition Diagnosis Inadequate oral intake Diagnosis Progress(for reassessment Continues documentation) Is patient on ventilator? Yes Is Patient Ambulatory and/or Out of Bed No REE-([place]-confined to bed) [phone] Calculation Used for Recommendations [facility] Additional Notes PRO: 104-173 (1.2 - 2g KG ABW) fluid: 1 ml/kcal Nutrition Intervention Change Diet Order: Continue TF Nutrition Support: Nepro at 50 mL/hr with 100 mL water flush q4h. Kcal 2,160 Protein (gm) 97 Fluid (mL) 872 Goal #1 TF tolerance Goal #2 TF to continue to meet 80-100% of kcal and protein needs. Anticipated Discharge Needs: Unable to determine at this time Follow-Up By: 07/03/18 Additional Comments F/U: TF tolerance/renal function
[2018-07-01] MEDS ORDERED: D50W (25GM) Syringe IV ONE ×2 (09:00→23:43)
[2018-07-01 09:43] LABS: INR 1.05 (0.87-1.13)
[2018-07-01] MEDS: SOLU-Medrol IV SCH ×2 (10:10→22:30)
[2018-07-01] MEDS: PEPCID PO SCH (10:10)
[2018-07-01] MEDS: KIONEX PO SCH ×2 (10:10→15:06)
[2018-07-01] MEDS: LANTUS SUB-Q SCH (10:12)
[2018-07-01] MEDS: SODIUM CHLORIDE FLUSH SYRINGE 10 ML IV SCH (10:16)
[2018-07-01] MEDS: BACTRIM IV SCH (10:27)
[2018-07-01] MEDS: D5W IV SCH (10:27)
[2018-07-01] MEDS ORDERED: LASIX IV ONE (11:07)
--- NOTE | 2018-07-01 11:42 | Progress Note ---
Assessment and Plan Acute Hypoxemic Respiratory Failure on MVS ARDS AIDS / HIV positive Severe Sepsis with septic shock due to Pneumonia Severe respiratory acidosis Lower extremity DVT Acute renal failure Thrombocytopenia Hematuria Anemia requiring blood transfusions Medical decision making -Transfuse to keep HgB>7g/dL -Medical management of hyperkalemia -AGB done, improved oxygenation, plan on decreasing PEEP to 12, to keep airway pressures(Pplat) <30 -ABG at 6pm to re-evaluate oxygenation and acid-base -Send for fibrinogen levels, with the hematuria, bloody tracheal secretions and thrombocytopenia, may be in DIC -Stop famotidine, start PPI renally dosed -Urology consult -Place OGT to gravity, check for hematemesis -Agitation and analgesia -Conitnue to hold all anticoagulation for now -Target glucose of 140mg- 180mg/dL, add sliding scale insulin therapy -Family meeting to be arranged with case management to re-address goals of care and set expectations. Severe sepsis with multiorgan dysfunction, ARDS and HIV/AIDS, prognosis is dismal -Continue all other care as outlined below -VAP bundle addressed - Continue supplemental oxygen to keep sats > 90% -Wean PEEP and FIO2 as tolerated -ARDS net protocol with lung protective strategies Permissive hypercapnia for now. -OK for bicarbonate if pH <7.1 -Fluid management should be restrictive to allow for oxygenation and ventilation - continue bronchodilators with pulmonary -Vasopressor support wean for MAP >65 -Continue steroids -Continue empiric and targeted anti-infective's per ID recs -Aspiration precautions, HOB>40 -Accucheck and monitor for hypoglycemia - Continue to monitor for for drug-drug interaction - Daily SATs and SBT per protocol once his ventilatory needs are minimal - Stress ulcer prophylaxis -Anticoagulation, stopped Eliquis. -Critical care bundles addressed CONDITION: CRITICAL PROGNOSIS: POOR CODE STATUS: FULL CODE The high probability of a clinically significant, sudden or life-threatening d eterioration of the [cardiac, respiratory] system(s) required my full and direct attention, intervention and personal management. The aggregate critical care time was [35] minutes without overlap. Time includes spent on; [x] Data Review and interpretation [x] Patient assessment and monitoring of vital signs [x] Documentation Subjective Date of service: 07/01/18 Principal diagnosis: Acute Hypoxemic Resp Failure; AIDS / HIV positive; Severe Sepsis due to PNA Interval history: Patient is seen today for: Acute Hypoxemic Respiratory Failure on MVS; AIDS / HIV positive; Severe Sepsis due to Pneumonia; Hyponatremia; Severe metabolic acidosis Seen and examined at bedside; 24hour events reviewed; nursing and respiratory care staff consulted; no adverse overnight events reported to me; ; on fentanyl and propofol; remains on MVS requiring PEEP 15 and FIO2 100%; no seizures reported; no emesis or overt aspiration, Hypothermia overnight, hematuria, bloody tracheal aspirate. RT increase TV to 500 overnight for respiratory acidosis, airway pressures in the 50s Remains unresponsive Objective Vital Signs - 12hr 06/30/18 07/01/18 07/01/18 23:40 00:00 01:00 Temperature Pulse Rate 103 H 101 H 99 H Pulse Rate [ Anterior Bilateral Throughout] Pulse Rate [ Apical] Pulse Rate [ Bilateral] Pulse Rate [ 101 H Left Dorsalis Pedis] Respiratory 32 H 27 H Rate Respiratory Rate [Anterior Bilateral Throughout] Respiratory Rate [Bilateral ] Blood Pressure 110/51 114/51 117/56 O2 Sat by Pulse 98 98 97 Oximetry 07/01/18 07/01/18 07/01/18 02:00 03:00 03:19 Temperature 97.2 F L Pulse Rate 95 H 91 H Pulse Rate [ 96 H Anterior Bilateral Throughout] Pulse Rate [ Apical] Pulse Rate [ 97 H Bilateral] Pulse Rate [ Left Dorsalis Pedis] Respiratory 32 H 22 Rate Respiratory 30 H Rate [Anterior Bilateral Throughout] Respiratory 24 Rate [Bilateral ] Blood Pressure 105/53 100/47 O2 Sat by Pulse 97 99 Oximetry 07/01/18 07/01/18 07/01/18 04:00 05:00 06:00 Temperature Pulse Rate 90 92 H 91 H Pulse Rate [ Anterior Bilateral Throughout] Pulse Rate [ Apical] Pulse Rate [ Bilateral] Pulse Rate [ 93 H Left Dorsalis Pedis] Respiratory 25 H 30 H 30 H Rate Respiratory Rate [Anterior Bilateral Throughout] Respiratory Rate [Bilateral ] Blood Pressure 117/57 115/64 99/51 O2 Sat by Pulse 100 95 98 Oximetry 07/01/18 07/01/18 07/01/18 07:00 08:00 09:00 Temperature 92.3 F L Pulse Rate 90 91 H 84 Pulse Rate [ Anterior Bilateral Throughout] Pulse Rate [ 87 Apical] Pulse Rate [ Bilateral] Pulse Rate [ Left Dorsalis Pedis] Respiratory 30 H 31 H 30 H Rate Respiratory Rate [Anterior Bilateral Throughout] Respiratory Rate [Bilateral ] Blood Pressure 98/49 102/52 119/69 O2 Sat by Pulse 99 99 100 Oximetry 07/01/18 07/01/18 07/01/18 09:10 10:00 11:01 Temperature Pulse Rate 89 86 100 H Pulse Rate [ Anterior Bilateral Throughout] Pulse Rate [ Apical] Pulse Rate [ Bilateral] Pulse Rate [ Left Dorsalis Pedis] Respiratory 30 H 30 H Rate Respiratory Rate [Anterior Bilateral Throughout] Respiratory Rate [Bilateral ] Blood Pressure 117/67 122/72 112/52 O2 Sat by Pulse 98 100 100 Oximetry 07/01/18 11:11 Temperature Pulse Rate 102 H Pulse Rate [ Anterior Bilateral Throughout] Pulse Rate [ Apical] Pulse Rate [ Bilateral] Pulse Rate [ Left Dorsalis Pedis] Respiratory Rate Respiratory Rate [Anterior Bilateral Throughout] Respiratory Rate [Bilateral ] Blood Pressure 111/51 O2 Sat by Pulse 99 Oximetry Constitutional: comatose, appears uncomfortable, other (young HM normocephalic and atraumatic with moderately increased respiratory effort at rest) Eyes: non-icteric ENT: oropharynx moist, other (ETT 23 cm SATISH) Neck: supple, no lymphadenopathy, no JVD, other (no thyromegaly) Effort: mildly labored Ascultation: Bilateral: diminished breath sounds, rhonchi Percussion: Bilateral: not dull Cardiovascular: regular rate and rhythm, other (S1,S2, no murmurs, gallops or rubs) Gastrointestinal: normoactive bowel sounds, soft, non-tender, non-distended Integumentary: rash Extremities: no cyanosis, pink and warm, pulses normal, no ischemia or petechiae, edema (bilateral upper extemity ), anasarca Neurologic: pupils equal and round, unable to assess Psychiatric: other (unable to assess) CBC and BMP: 07/01/18 06:52 07/01/18 06:00 ABG, PT/INR, D-dimer: ABG POC ABG pH 7.151 (7.35-7.45) L 07/01/18 11:11 POC ABG pCO2 100.4 (35-45) H 07/01/18 11:11 POC ABG pO2 151 (80-105) H 07/01/18 11:11 POC ABG HCO3 35.1 07/01/18 11:11 POC ABG Total CO2 38 07/01/18 11:11 POC ABG O2 Sat 98 07/01/18 11:11 PT/INR, D-dimer PT 14.3 Sec. (12.2-14.9) 07/01/18 09:11 INR 1.05 (0.87-1.13) 07/01/18 09:11 D-Dimer 2387.14 ng/mlDDU (0-234) H 07/01/18 10:00 Abnormal lab findings: Abnormal Labs 06/19/18 06/19/18 06/19/18 03:31 07:11 07:42 WBC RBC Hgb Hct MCV RDW Plt Count Seg Neuts % (Manual) Lymphocytes % (Manual) Seg Neutrophils # Man Abs Lymphs (Manual) 409 L Lymphocytes # (Manual) PT INR D-Dimer POC ABG pH 6.974 L POC ABG pCO2 22.0 L 83.4 H POC ABG pO2 28 L 122 H Sodium Potassium Chloride Carbon Dioxide BUN Creatinine Glucose POC Glucose Calcium AST ALT C-Reactive Protein Total Protein Albumin Triglycerides Ur Specific Wilson Urine WBC (Auto) Urine Creatinine Urine Total Protein Lymph Enumerat CD4/CD8 0.05 L % CD3 Cells 45 L Absolute CD3 Count 185 L % CD4 Cells 2 L Absolute CD4 Count 10 L % CD8 Cells 43 H Absolute CD8 Count 167 L Absolute CD19 Count 79 L HIV DNA Qual (PCR) HIV-1 RNA PCR copies/ml HIV-1 RNA (PCR) log Miscellaneous Test Crossmatch 06/19/18 06/19/18 06/19/18 08:07 08:16 09:20 WBC RBC Hgb Hct MCV RDW Plt Count Seg Neuts % (Manual) Lymphocytes % (Manual) Seg Neutrophils # Man Abs Lymphs (Manual) Lymphocytes # (Manual) PT INR D-Dimer POC ABG pH 6.996 L POC ABG pCO2 82.4 H POC ABG pO2 Sodium Potassium Chloride Carbon Dioxide BUN Creatinine Glucose POC Glucose Calcium AST ALT C-Reactive Protein Total Protein Albumin Triglycerides Ur Specific Wilson 1.060 H Urine WBC (Auto) 8.0 H Urine Creatinine Urine Total Protein Lymph Enumerat CD4/CD8 % CD3 Cells Absolute CD3 Count % CD4 Cells Absolute CD4 Count % CD8 Cells Absolute CD8 Count Absolute CD19 Count HIV DNA Qual (PCR) Detected H HIV-1 RNA PCR copies/ml HIV-1 RNA (PCR) log Miscellaneous Test Crossmatch 06/19/18 06/19/1806/19/19 09:49 11:15 15:16 WBC RBC Hgb Hct MCV RDW Plt Count Seg Neuts % (Manual) Lymphocytes % (Manual) Seg Neutrophils # Man Abs Lymphs (Manual) Lymphocytes # (Manual) PT INR D-Dimer POC ABG pH 7.198 L 7.206 L POC ABG pCO2 POC ABG pO2 75 L Sodium Potassium Chloride Carbon Dioxide BUN Creatinine Glucose POC Glucose Calcium AST ALT C-Reactive Protein Total Protein Albumin Triglycerides Ur Specific Wilson Urine WBC (Auto) Urine Creatinine Urine Total Protein Lymph Enumerat CD4/CD8 % CD3 Cells Absolute CD3 Count % CD4 Cells Absolute CD4 Count % CD8 Cells Absolute CD8 Count Absolute CD19 Count HIV DNA Qual (PCR) HIV-1 RNA PCR copies/ml [id number] H HIV-1 RNA (PCR) log 6.11 H Miscellaneous Test Crossmatch 06/19/18 06/19/18 06/19/18 18:54 Unknown Unknown WBC 12.9 H RBC Hgb Hct MCV RDW Plt Count Seg Neuts % (Manual) Lymphocytes % (Manual) 5.0 L Seg Neutrophils # Man Abs Lymphs (Manual) Lymphocytes # (Manual) 0.6 L PT 15.9 H INR 1.19 H D-Dimer 8449.09 H POC ABG pH POC ABG pCO2 POC ABG pO2 Sodium Potassium Chloride Carbon Dioxide BUN Creatinine Glucose POC Glucose 196 H Calcium AST ALT C-Reactive Protein Total Protein Albumin Triglycerides Ur Specific Wilson Urine WBC (Auto) Urine Creatinine Urine Total Protein Lymph Enumerat CD4/CD8 % CD3 Cells Absolute CD3 Count % CD4 Cells Absolute CD4 Count % CD8 Cells Absolute CD8 Count Absolute CD19 Count HIV DNA Qual (PCR) HIV-1 RNA PCR copies/ml HIV-1 RNA (PCR) log Miscellaneous Test Crossmatch 06/19/18 06/19/18 06/20/18 Unknown Unknown 04:33 WBC RBC Hgb Hct MCV RDW Plt Count Seg Neuts % (Manual) Lymphocytes % (Manual) Seg Neutrophils # Man Abs Lymphs (Manual) Lymphocytes # (Manual) PT INR D-Dimer POC ABG pH 7.249 L POC ABG pCO2 POC ABG pO2 118 H Sodium 129 L Potassium Chloride 90.7 L Carbon Dioxide 17 L BUN Creatinine 0.6 L Glucose 199 H POC Glucose Calcium 8.1 L AST 53 H ALT C-Reactive Protein Total Protein 6.0 L Albumin 2.8 L Triglycerides Ur Specific Wilson Urine WBC (Auto) Urine Creatinine Urine Total Protein Lymph Enumerat CD4/CD8 % CD3 Cells Absolute CD3 Count % CD4 Cells Absolute CD4 Count % CD8 Cells Absolute CD8 Count Absolute CD19 Count HIV DNA Qual (PCR) HIV-1 RNA PCR copies/ml HIV-1 RNA (PCR) log Miscellaneous Test Crossmatch 06/20/18 06/20/18 06/20/18 08:13 08:13 12:59 WBC 11.8 H RBC 3.25 L Hgb 9.8 L D Hct 30.4 L D MCV RDW Plt Count Seg Neuts % (Manual) 99.0 H Lymphocytes % (Manual) 1.0 L Seg Neutrophils # Man 11.7 H Abs Lymphs (Manual) Lymphocytes # (Manual) 0.1 L PT INR D-Dimer POC ABG pH POC ABG pCO2 POC ABG pO2 Sodium Potassium Chloride Carbon Dioxide 19 L BUN Creatinine Glucose 223 H POC Glucose 174 H Calcium 6.6 L D AST 1240 H ALT 836 H C-Reactive Protein Total Protein 4.9 L Albumin 2.1 L Triglycerides Ur Specific Wilson Urine WBC (Auto) Urine Creatinine Urine Total Protein Lymph Enumerat CD4/CD8 % CD3 Cells Absolute CD3 Count % CD4 Cells Absolute CD4 Count % CD8 Cells Absolute CD8 Count Absolute CD19 Count HIV DNA Qual (PCR) HIV-1 RNA PCR copies/ml HIV-1 RNA (PCR) log Miscellaneous Test Crossmatch 06/20/18 06/20/18 06/21/18 17:42 23:44 04:08 WBC RBC Hgb Hct MCV RDW Plt Count Seg Neuts % (Manual) Lymphocytes % (Manual) Seg Neutrophils # Man Abs Lymphs (Manual) Lymphocytes # (Manual) PT INR D-Dimer POC ABG pH 7.309 L POC ABG pCO2 POC ABG pO2 Sodium Potassium Chloride Carbon Dioxide BUN Creatinine Glucose POC Glucose 177 H 195 H Calcium AST ALT C-Reactive Protein Total Protein Albumin Triglycerides Ur Specific Wilson Urine WBC (Auto) Urine Creatinine Urine Total Protein Lymph Enumerat CD4/CD8 % CD3 Cells Absolute CD3 Count % CD4 Cells Absolute CD4 Count % CD8 Cells Absolute CD8 Count Absolute CD19 Count HIV DNA Qual (PCR) HIV-1 RNA PCR copies/ml HIV-1 RNA (PCR) log Miscellaneous Test Crossmatch 06/21/18 06/21/18 06/21/18 04:19 04:19 05:27 WBC 13.8 H RBC 3.02 L Hgb 9.2 L Hct 28.0 L MCV RDW Plt Count Seg Neuts % (Manual) Lymphocytes % (Manual) Seg Neutrophils # Man Abs Lymphs (Manual) Lymphocytes # (Manual) PT INR D-Dimer POC ABG pH POC ABG pCO2 POC ABG pO2 Sodium 135 L Potassium Chloride Carbon Dioxide 21 L BUN Creatinine 0.7 L Glucose 161 H POC Glucose 187 H Calcium 7.2 L AST 390 H ALT 622 H C-Reactive Protein Total Protein 5.3 L Albumin 2.4 L Triglycerides Ur Specific Wilson Urine WBC (Auto) Urine Creatinine Urine Total Protein Lymph Enumerat CD4/CD8 % CD3 Cells Absolute CD3 Count % CD4 Cells Absolute CD4 Count % CD8 Cells Absolute CD8 Count Absolute CD19 Count HIV DNA Qual (PCR) HIV-1 RNA PCR copies/ml HIV-1 RNA (PCR) log Miscellaneous Test Crossmatch 06/21/18 06/21/18 06/21/18 11:33 12:32 17:45 WBC RBC Hgb Hct MCV RDW Plt Count Seg Neuts % (Manual) Lymphocytes % (Manual) Seg Neutrophils # Man Abs Lymphs (Manual) Lymphocytes # (Manual) PT INR D-Dimer POC ABG pH POC ABG pCO2 POC ABG pO2 Sodium Potassium Chloride Carbon Dioxide BUN Creatinine Glucose POC Glucose 147 H 172 H Calcium AST ALT C-Reactive Protein Total Protein Albumin Triglycerides Ur Specific Wilson Urine WBC (Auto) Urine Creatinine Urine Total Protein Lymph Enumerat CD4/CD8 % CD3 Cells Absolute CD3 Count % CD4 Cells Absolute CD4 Count % CD8 Cells Absolute CD8 Count Absolute CD19 Count HIV DNA Qual (PCR) HIV-1 RNA PCR copies/ml HIV-1 RNA (PCR) log Miscellaneous Test see below H Crossmatch 06/21/18 06/22/18 06/22/18 23:25 04:47 04:47 WBC 11.5 H RBC 2.93 L Hgb 9.0 L Hct 26.5 L MCV RDW Plt Count Seg Neuts % (Manual) Lymphocytes % (Manual) Seg Neutrophils # Man Abs Lymphs (Manual) Lymphocytes # (Manual) PT INR D-Dimer POC ABG pH POC ABG pCO2 POC ABG pO2 Sodium Potassium Chloride Carbon Dioxide BUN 22 H Creatinine Glucose 201 H POC Glucose 152 H Calcium 7.8 L AST 129 H ALT 416 H C-Reactive Protein Total Protein 5.3 L Albumin 2.4 L Triglycerides Ur Specific Wilson Urine WBC (Auto) Urine Creatinine Urine Total Protein Lymph Enumerat CD4/CD8 % CD3 Cells Absolute CD3 Count % CD4 Cells Absolute CD4 Count % CD8 Cells Absolute CD8 Count Absolute CD19 Count HIV DNA Qual (PCR) HIV-1 RNA PCR copies/ml HIV-1 RNA (PCR) log Miscellaneous Test Crossmatch 06/22/18 06/22/18 06/22/18 05:23 11:43 17:45 WBC RBC Hgb Hct MCV RDW Plt Count Seg Neuts % (Manual) Lymphocytes % (Manual) Seg Neutrophils # Man Abs Lymphs (Manual) Lymphocytes # (Manual) PT INR D-Dimer POC ABG pH POC ABG pCO2 POC ABG pO2 Sodium Potassium Chloride Carbon Dioxide BUN Creatinine Glucose POC Glucose 170 H 175 H 176 H Calcium AST ALT C-Reactive Protein Total Protein Albumin Triglycerides Ur Specific Wilson Urine WBC (Auto) Urine Creatinine Urine Total Protein Lymph Enumerat CD4/CD8 % CD3 Cells Absolute CD3 Count % CD4 Cells Absolute CD4 Count % CD8 Cells Absolute CD8 Count Absolute CD19 Count HIV DNA Qual (PCR) HIV-1 RNA PCR copies/ml HIV-1 RNA (PCR) log Miscellaneous Test Crossmatch 06/23/18 06/23/18 06/23/18 00:24 05:06 05:11 WBC 11.2 H RBC 2.78 L Hgb 8.6 L Hct 25.3 L MCV RDW Plt Count Seg Neuts % (Manual) Lymphocytes % (Manual) Seg Neutrophils # Man Abs Lymphs (Manual) Lymphocytes # (Manual) PT INR D-Dimer POC ABG pH POC ABG pCO2 POC ABG pO2 Sodium Potassium Chloride Carbon Dioxide BUN Creatinine Glucose POC Glucose 178 H 182 H Calcium AST ALT C-Reactive Protein Total Protein Albumin Triglycerides Ur Specific Wilson Urine WBC (Auto) Urine Creatinine Urine Total Protein Lymph Enumerat CD4/CD8 % CD3 Cells Absolute CD3 Count % CD4 Cells Absolute CD4 Count % CD8 Cells Absolute CD8 Count Absolute CD19 Count HIV DNA Qual (PCR) HIV-1 RNA PCR copies/ml HIV-1 RNA (PCR) log Miscellaneous Test Crossmatch 06/23/18 06/23/18 06/23/18 05:11 05:51 12:21 WBC RBC Hgb Hct MCV RDW Plt Count Seg Neuts % (Manual) Lymphocytes % (Manual) Seg Neutrophils # Man Abs Lymphs (Manual) Lymphocytes # (Manual) PT INR D-Dimer POC ABG pH POC ABG pCO2 POC ABG pO2 69 L Sodium Potassium Chloride Carbon Dioxide BUN 34 H Creatinine 1.7 H D Glucose 191 H POC Glucose 181 H Calcium 7.5 L AST 63 H ALT 297 H C-Reactive Protein Total Protein 5.3 L Albumin 2.4 L Triglycerides Ur Specific Wilson Urine WBC (Auto) Urine Creatinine Urine Total Protein Lymph Enumerat CD4/CD8 % CD3 Cells Absolute CD3 Count % CD4 Cells Absolute CD4 Count % CD8 Cells Absolute CD8 Count Absolute CD19 Count HIV DNA Qual (PCR) HIV-1 RNA PCR copies/ml HIV-1 RNA (PCR) log Miscellaneous Test Crossmatch 06/23/18 06/23/18 06/23/18 13:57 17:00 18:40 WBC RBC Hgb Hct MCV RDW Plt Count Seg Neuts % (Manual) Lymphocytes % (Manual) Seg Neutrophils # Man Abs Lymphs (Manual) Lymphocytes # (Manual) PT INR D-Dimer POC ABG pH POC ABG pCO2 POC ABG pO2 Sodium Potassium Chloride Carbon Dioxide BUN 38 H Creatinine 1.8 H Glucose POC Glucose 196 H Calcium AST ALT C-Reactive Protein 1.60 H Total Protein Albumin Triglycerides Ur Specific Wilson Urine WBC (Auto) Urine Creatinine Urine Total Protein Lymph Enumerat CD4/CD8 % CD3 Cells Absolute CD3 Count % CD4 Cells Absolute CD4 Count % CD8 Cells Absolute CD8 Count Absolute CD19 Count HIV DNA Qual (PCR) HIV-1 RNA PCR copies/ml HIV-1 RNA (PCR) log Miscellaneous Test Crossmatch 06/23/18 06/23/18 06/24/18 21:16 23:22 04:12 WBC RBC 2.89 L Hgb 8.8 L Hct 26.9 L MCV RDW Plt Count Seg Neuts % (Manual) Lymphocytes % (Manual) Seg Neutrophils # Man Abs Lymphs (Manual) Lymphocytes # (Manual) PT INR D-Dimer POC ABG pH 7.311 L POC ABG pCO2 47.4 H POC ABG pO2 Sodium Potassium Chloride Carbon Dioxide BUN Creatinine Glucose POC Glucose 165 H Calcium AST ALT C-Reactive Protein Total Protein Albumin Triglycerides Ur Specific Wilson Urine WBC (Auto) Urine Creatinine Urine Total Protein Lymph Enumerat CD4/CD8 % CD3 Cells Absolute CD3 Count % CD4 Cells Absolute CD4 Count % CD8 Cells Absolute CD8 Count Absolute CD19 Count HIV DNA Qual (PCR) HIV-1 RNA PCR copies/ml HIV-1 RNA (PCR) log Miscellaneous Test Crossmatch 06/24/18 06/24/18 06/24/18 04:12 04:46 05:24 WBC RBC Hgb Hct MCV RDW Plt Count Seg Neuts % (Manual) Lymphocytes % (Manual) Seg Neutrophils # Man Abs Lymphs (Manual) Lymphocytes # (Manual) PT INR D-Dimer POC ABG pH 7.250 L POC ABG pCO2 55.8 H POC ABG pO2 Sodium Potassium 5.4 H Chloride Carbon Dioxide BUN 44 H Creatinine 2.2 H Glucose 206 H POC Glucose 183 H Calcium 7.5 L AST ALT C-Reactive Protein Total Protein Albumin Triglycerides Ur Specific Wilson Urine WBC (Auto) Urine Creatinine Urine Total Protein Lymph Enumerat CD4/CD8 % CD3 Cells Absolute CD3 Count % CD4 Cells Absolute CD4 Count % CD8 Cells Absolute CD8 Count Absolute CD19 Count HIV DNA Qual (PCR) HIV-1 RNA PCR copies/ml HIV-1 RNA (PCR) log Miscellaneous Test Crossmatch 06/24/18 06/24/18 06/24/18 11:14 16:40 17:16 WBC RBC Hgb Hct MCV RDW Plt Count Seg Neuts % (Manual) Lymphocytes % (Manual) Seg Neutrophils # Man Abs Lymphs (Manual) Lymphocytes # (Manual) PT INR D-Dimer POC ABG pH 7.067 L POC ABG pCO2 91.7 H POC ABG pO2 134 H Sodium Potassium Chloride Carbon Dioxide BUN Creatinine Glucose POC Glucose 151 H 195 H Calcium AST ALT C-Reactive Protein Total Protein Albumin Triglycerides Ur Specific [place] Urine WBC (Auto) Urine Creatinine Urine Total Protein Lymph Enumerat CD4/CD8 % CD3 Cells Absolute CD3 Count % CD4 Cells Absolute CD4 Count % CD8 Cells Absolute CD8 Count Absolute CD19 Count HIV DNA Qual (PCR) HIV-1 RNA PCR copies/ml HIV-1 RNA (PCR) log Miscellaneous Test Crossmatch 06/24/18 06/24/18 06/24/18 18:03 22:45 22:45 WBC RBC Hgb Hct MCV RDW Plt Count Seg Neuts % (Manual) Lymphocytes % (Manual) Seg Neutrophils # Man Abs Lymphs (Manual) Lymphocytes # (Manual) PT INR D-Dimer POC ABG pH 7.234 L POC ABG pCO2 59.9 H POC ABG pO2 121 H Sodium Potassium Chloride Carbon Dioxide BUN Creatinine Glucose POC Glucose Calcium AST ALT C-Reactive Protein Total Protein Albumin Triglycerides Ur Specific [place] Urine WBC (Auto) 9.0 H Urine Creatinine 47.2 H Urine Total Protein 25 H Lymph Enumerat CD4/CD8 % CD3 Cells Absolute CD3 Count % CD4 Cells Absolute CD4 Count % CD8 Cells Absolute CD8 Count Absolute CD19 Count HIV DNA Qual (PCR) HIV-1 RNA PCR copies/ml HIV-1 RNA (PCR) log Miscellaneous Test Crossmatch 06/24/18 06/24/18 06/25/18 Unknown 23:59 04:36 WBC RBC Hgb Hct MCV RDW Plt Count Seg Neuts % (Manual) Lymphocytes % (Manual) Seg Neutrophils # Man Abs Lymphs (Manual) Lymphocytes # (Manual) PT 15.6 H INR 1.17 H D-Dimer POC ABG pH 7.200 L POC ABG pCO2 65.3 H POC ABG pO2 Sodium Potassium Chloride Carbon Dioxide BUN Creatinine Glucose POC Glucose 233 H Calcium AST ALT C-Reactive Protein Total Protein Albumin Triglycerides Ur Specific [place] Urine WBC (Auto) Urine Creatinine Urine Total Protein Lymph Enumerat CD4/CD8 % CD3 Cells Absolute CD3 Count % CD4 Cells Absolute CD4 Count % CD8 Cells Absolute CD8 Count Absolute CD19 Count HIV DNA Qual (PCR) HIV-1 RNA PCR copies/ml HIV-1 RNA (PCR) log Miscellaneous Test Crossmatch 06/25/18 06/25/18 06/25/18 05:29 11:12 11:40 WBC RBC 2.67 L Hgb 8.5 L Hct 25.6 L MCV 96 H RDW 16.0 H Plt Count Seg Neuts % (Manual) Lymphocytes % (Manual) Seg Neutrophils # Man Abs Lymphs (Manual) Lymphocytes # (Manual) PT INR D-Dimer POC ABG pH POC ABG pCO2 POC ABG pO2 Sodium Potassium Chloride Carbon Dioxide BUN Creatinine Glucose POC Glucose 212 H 244 H Calcium AST ALT C-Reactive Protein Total Protein Albumin Triglycerides Ur Specific [place] Urine WBC (Auto) Urine Creatinine Urine Total Protein Lymph Enumerat CD4/CD8 % CD3 Cells Absolute CD3 Count % CD4 Cells Absolute CD4 Count % CD8 Cells Absolute CD8 Count Absolute CD19 Count HIV DNA Qual (PCR) HIV-1 RNA PCR copies/ml HIV-1 RNA (PCR) log Miscellaneous Test Crossmatch 06/25/18 06/25/18 06/25/18 11:40 17:18 18:08 WBC RBC Hgb Hct MCV RDW Plt Count Seg Neuts % (Manual) Lymphocytes % (Manual) Seg Neutrophils # Man Abs Lymphs (Manual) Lymphocytes # (Manual) PT INR D-Dimer POC ABG pH 7.206 L POC ABG pCO2 68.1 H POC ABG pO2 Sodium Potassium 5.8 H Chloride Carbon Dioxide BUN 48 H Creatinine 2.1 H Glucose 293 H POC Glucose 264 H Calcium 7.5 L AST ALT C-Reactive Protein Total Protein Albumin Triglycerides Ur Specific [place] Urine WBC (Auto) Urine Creatinine Urine Total Protein Lymph Enumerat CD4/CD8 % CD3 Cells Absolute CD3 Count % CD4 Cells Absolute CD4 Count % CD8 Cells Absolute CD8 Count Absolute CD19 Count HIV DNA Qual (PCR) HIV-1 RNA PCR copies/ml HIV-1 RNA (PCR) log Miscellaneous Test Crossmatch 06/25/18 06/25/18 06/26/18 21:20 23:59 05:10 WBC RBC Hgb Hct MCV RDW Plt Count Seg Neuts % (Manual) Lymphocytes % (Manual) Seg Neutrophils # Man Abs Lymphs (Manual) Lymphocytes # (Manual) PT INR D-Dimer POC ABG pH 7.220 L POC ABG pCO2 65.0 H POC ABG pO2 71 L Sodium Potassium Chloride Carbon Dioxide BUN Creatinine Glucose POC Glucose 231 H 259 H Calcium AST ALT C-Reactive Protein Total Protein Albumin Triglycerides Ur Specific [place] Urine WBC (Auto) Urine Creatinine Urine Total Protein Lymph Enumerat CD4/CD8 % CD3 Cells Absolute CD3 Count % CD4 Cells Absolute CD4 Count % CD8 Cells Absolute CD8 Count Absolute CD19 Count HIV DNA Qual (PCR) HIV-1 RNA PCR copies/ml HIV-1 RNA (PCR) log Miscellaneous Test Crossmatch 06/26/18 06/26/18 06/26/18 05:29 07:25 07:25 WBC 12.0 H RBC 2.69 L Hgb 8.2 L Hct 25.5 L MCV 95 H RDW 15.7 H Plt Count Seg Neuts % (Manual) Lymphocytes % (Manual) Seg Neutrophils # Man Abs Lymphs (Manual) Lymphocytes # (Manual) PT INR D-Dimer POC ABG pH 7.240 L POC ABG pCO2 67.6 H POC ABG pO2 106 H Sodium Potassium 5.2 H Chloride Carbon Dioxide BUN 58 H Creatinine 1.9 H Glucose 219 H POC Glucose Calcium 7.9 L AST ALT C-Reactive Protein Total Protein Albumin Triglycerides Ur Specific [place] Urine WBC (Auto) Urine Creatinine Urine Total Protein Lymph Enumerat CD4/CD8 % CD3 Cells Absolute CD3 Count % CD4 Cells Absolute CD4 Count % CD8 Cells Absolute CD8 Count Absolute CD19 Count HIV DNA Qual (PCR) HIV-1 RNA PCR copies/ml HIV-1 RNA (PCR) log Miscellaneous Test Crossmatch 06/26/18 06/26/18 06/26/18 07:25 12:49 17:42 WBC RBC Hgb Hct MCV RDW Plt Count Seg Neuts % (Manual) Lymphocytes % (Manual) Seg Neutrophils # Man Abs Lymphs (Manual) Lymphocytes # (Manual) PT INR D-Dimer POC ABG pH 7.178 L POC ABG pCO2 73.6 H POC ABG pO2 77 L Sodium Potassium Chloride Carbon Dioxide BUN Creatinine Glucose POC Glucose 276 H Calcium AST ALT C-Reactive Protein Total Protein Albumin Triglycerides 174 H Ur Specific Wilson Urine WBC (Auto) Urine Creatinine Urine Total Protein Lymph Enumerat CD4/CD8 % CD3 Cells Absolute CD3 Count % CD4 Cells Absolute CD4 Count % CD8 Cells Absolute CD8 Count Absolute CD19 Count HIV DNA Qual (PCR) HIV-1 RNA PCR copies/ml HIV-1 RNA (PCR) log Miscellaneous Test Crossmatch 06/26/18 06/26/18 06/26/18 18:25 21:24 23:22 WBC RBC Hgb Hct MCV RDW Plt Count Seg Neuts % (Manual) Lymphocytes % (Manual) Seg Neutrophils # Man Abs Lymphs (Manual) Lymphocytes # (Manual) PT INR D-Dimer POC ABG pH 7.152 L POC ABG pCO2 80.6 H POC ABG pO2 Sodium Potassium Chloride Carbon Dioxide BUN Creatinine Glucose POC Glucose 304 H 282 H Calcium AST ALT C-Reactive Protein Total Protein Albumin Triglycerides Ur Specific Wilson Urine WBC (Auto) Urine Creatinine Urine Total Protein Lymph Enumerat CD4/CD8 % CD3 Cells Absolute CD3 Count % CD4 Cells Absolute CD4 Count % CD8 Cells Absolute CD8 Count Absolute CD19 Count HIV DNA Qual (PCR) HIV-1 RNA PCR copies/ml HIV-1 RNA (PCR) log Miscellaneous Test Crossmatch 06/27/18 06/27/18 06/27/18 04:05 05:15 05:15 WBC RBC Hgb Hct MCV RDW Plt Count Seg Neuts % (Manual) Lymphocytes % (Manual) Seg Neutrophils # Man Abs Lymphs (Manual) Lymphocytes # (Manual) PT INR D-Dimer POC ABG pH 7.266 L POC ABG pCO2 62.8 H POC ABG pO2 Sodium Potassium 5.5 H Chloride Carbon Dioxide BUN 73 H Creatinine 2.1 H Glucose 211 H POC Glucose Calcium 7.7 L AST ALT C-Reactive Protein Total Protein Albumin Triglycerides Ur Specific [place] Urine WBC (Auto) Urine Creatinine Urine Total Protein Lymph Enumerat CD4/CD8 % CD3 Cells Absolute CD3 Count % CD4 Cells Absolute CD4 Count % CD8 Cells Absolute CD8 Count Absolute CD19 Count HIV DNA Qual (PCR) HIV-1 RNA PCR copies/ml HIV-1 RNA (PCR) log Miscellaneous Test Flexitest 1 H Crossmatch 06/27/18 06/27/18 06/27/18 05:15 05:52 13:10 WBC RBC 2.41 L Hgb 7.6 L Hct 22.4 L MCV RDW Plt Count Seg Neuts % (Manual) Lymphocytes % (Manual) Seg Neutrophils # Man Abs Lymphs (Manual) Lymphocytes # (Manual) PT INR D-Dimer POC ABG pH POC ABG pCO2 POC ABG pO2 Sodium Potassium Chloride Carbon Dioxide BUN Creatinine Glucose POC Glucose 198 H 238 H Calcium AST ALT C-Reactive Protein Total Protein Albumin Triglycerides Ur Specific [place] Urine WBC (Auto) Urine Creatinine Urine Total Protein Lymph Enumerat CD4/CD8 % CD3 Cells Absolute CD3 Count % CD4 Cells Absolute CD4 Count % CD8 Cells Absolute CD8 Count Absolute CD19 Count HIV DNA Qual (PCR) HIV-1 RNA PCR copies/ml HIV-1 RNA (PCR) log Miscellaneous Test Crossmatch 06/27/18 06/27/18 06/27/18 16:12 17:51 23:22 WBC RBC Hgb Hct MCV RDW Plt Count Seg Neuts % (Manual) Lymphocytes % (Manual) Seg Neutrophils # Man Abs Lymphs (Manual) Lymphocytes # (Manual) PT INR D-Dimer POC ABG pH POC ABG pCO2 POC ABG pO2 Sodium Potassium Chloride Carbon Dioxide BUN Creatinine Glucose POC Glucose 174 H 162 H 171 H Calcium AST ALT C-Reactive Protein Total Protein Albumin Triglycerides Ur Specific [place] Urine WBC (Auto) Urine Creatinine Urine Total Protein Lymph Enumerat CD4/CD8 % CD3 Cells Absolute CD3 Count % CD4 Cells Absolute CD4 Count % CD8 Cells Absolute CD8 Count Absolute CD19 Count HIV DNA Qual (PCR) HIV-1 RNA PCR copies/ml HIV-1 RNA (PCR) log Miscellaneous Test Crossmatch 06/28/18 06/28/18 06/28/18 04:36 04:54 05:10 WBC RBC Hgb Hct MCV RDW Plt Count Seg Neuts % (Manual) Lymphocytes % (Manual) Seg Neutrophils # Man Abs Lymphs (Manual) Lymphocytes # (Manual) PT INR D-Dimer POC ABG pH 7.257 L POC ABG pCO2 68.8 H POC ABG pO2 Sodium Potassium Chloride Carbon Dioxide BUN 93 H Creatinine 2.4 H Glucose 186 H POC Glucose 193 H Calcium 8.3 L AST ALT C-Reactive Protein Total Protein Albumin Triglycerides Ur Specific [place] Urine WBC (Auto) Urine Creatinine Urine Total Protein Lymph Enumerat CD4/CD8 % CD3 Cells Absolute CD3 Count % CD4 Cells Absolute CD4 Count % CD8 Cells Absolute CD8 Count Absolute CD19 Count HIV DNA Qual (PCR) HIV-1 RNA PCR copies/ml HIV-1 RNA (PCR) log Miscellaneous Test Crossmatch 06/28/18 06/28/18 06/28/18 12:15 17:43 18:26 WBC RBC Hgb Hct MCV RDW Plt Count Seg Neuts % (Manual) Lymphocytes % (Manual) Seg Neutrophils # Man Abs Lymphs (Manual) Lymphocytes # (Manual) PT INR D-Dimer POC ABG pH 7.123 L POC ABG pCO2 82.7 H POC ABG pO2 Sodium Potassium Chloride Carbon Dioxide BUN Creatinine Glucose POC Glucose 154 H 194 H Calcium AST ALT C-Reactive Protein Total Protein Albumin Triglycerides Ur Specific [place] Urine WBC (Auto) Urine Creatinine Urine Total Protein Lymph Enumerat CD4/CD8 % CD3 Cells Absolute CD3 Count % CD4 Cells Absolute CD4 Count % CD8 Cells Absolute CD8 Count Absolute CD19 Count HIV DNA Qual (PCR) HIV-1 RNA PCR copies/ml HIV-1 RNA (PCR) log Miscellaneous Test Crossmatch 06/28/18 06/29/18 06/29/18 22:08 00:12 04:38 WBC RBC Hgb Hct MCV RDW Plt Count Seg Neuts % (Manual) Lymphocytes % (Manual) Seg Neutrophils # Man Abs Lymphs (Manual) Lymphocytes # (Manual) PT INR D-Dimer POC ABG pH 7.172 L 7.158 L POC ABG pCO2 80.4 H 76.6 H POC ABG pO2 143 H Sodium Potassium Chloride Carbon Dioxide BUN Creatinine Glucose POC Glucose 202 H Calcium AST ALT C-Reactive Protein Total Protein Albumin Triglycerides Ur Specific [place] Urine WBC (Auto) Urine Creatinine Urine Total Protein Lymph Enumerat CD4/CD8 % CD3 Cells Absolute CD3 Count % CD4 Cells Absolute CD4 Count % CD8 Cells Absolute CD8 Count Absolute CD19 Count HIV DNA Qual (PCR) HIV-1 RNA PCR copies/ml HIV-1 RNA (PCR) log Miscellaneous Test Crossmatch 06/29/18 06/29/18 06/29/18 05:15 05:15 05:32 WBC 12.3 H RBC 1.93 L Hgb 5.9 L* Hct 18.2 L* MCV 95 H RDW Plt Count 127 L Seg Neuts % (Manual) Lymphocytes % (Manual) Seg Neutrophils # Man Abs Lymphs (Manual) Lymphocytes # (Manual) PT INR D-Dimer POC ABG pH POC ABG pCO2 POC ABG pO2 Sodium 136 L Potassium 5.9 H Chloride 94.3 L Carbon Dioxide BUN 139 H Creatinine 4.2 H D Glucose 157 H POC Glucose 150 H Calcium 8.2 L AST ALT C-Reactive Protein Total Protein Albumin Triglycerides Ur Specific [place] Urine WBC (Auto) Urine Creatinine Urine Total Protein Lymph Enumerat CD4/CD8 % CD3 Cells Absolute CD3 Count % CD4 Cells Absolute CD4 Count % CD8 Cells Absolute CD8 Count Absolute CD19 Count HIV DNA Qual (PCR) HIV-1 RNA PCR copies/ml HIV-1 RNA (PCR) log Miscellaneous Test Crossmatch 06/29/18 06/29/18 06/29/18 08:07 09:50 11:55 WBC RBC Hgb 6.0 L Hct 18.4 L* MCV RDW Plt Count Seg Neuts % (Manual) Lymphocytes % (Manual) Seg Neutrophils # Man Abs Lymphs (Manual) Lymphocytes # (Manual) PT INR D-Dimer POC ABG pH POC ABG pCO2 POC ABG pO2 Sodium Potassium Chloride Carbon Dioxide BUN Creatinine Glucose POC Glucose 236 H Calcium AST ALT C-Reactive Protein Total Protein Albumin Triglycerides Ur Specific [place] Urine WBC (Auto) Urine Creatinine Urine Total Protein Lymph Enumerat CD4/CD8 % CD3 Cells Absolute CD3 Count % CD4 Cells Absolute CD4 Count % CD8 Cells Absolute CD8 Count Absolute CD19 Count HIV DNA Qual (PCR) HIV-1 RNA PCR copies/ml HIV-1 RNA (PCR) log Miscellaneous Test Crossmatch See Detail 06/29/18 06/30/18 06/30/18 18:29 00:08 04:47 WBC RBC Hgb Hct MCV RDW Plt Count Seg Neuts % (Manual) Lymphocytes % (Manual) Seg Neutrophils # Man Abs Lymphs (Manual) Lymphocytes # (Manual) PT INR D-Dimer POC ABG pH 7.182 L POC ABG pCO2 67.7 H POC ABG pO2 Sodium Potassium Chloride Carbon Dioxide BUN Creatinine Glucose POC Glucose 171 H 159 H Calcium AST ALT C-Reactive Protein Total Protein Albumin Triglycerides Ur Specific [place] Urine WBC (Auto) Urine Creatinine Urine Total Protein Lymph Enumerat CD4/CD8 % CD3 Cells Absolute CD3 Count % CD4 Cells Absolute CD4 Count % CD8 Cells Absolute CD8 Count Absolute CD19 Count HIV DNA Qual (PCR) HIV-1 RNA PCR copies/ml HIV-1 RNA (PCR) log Miscellaneous Test Crossmatch 06/30/18 06/30/18 06/30/18 05:07 06:00 12:43 WBC 18.2 H RBC 2.43 L Hgb 7.4 L Hct 22.0 L MCV RDW 15.3 H Plt Count 111 L Seg Neuts % (Manual) Lymphocytes % (Manual) Seg Neutrophils # Man Abs Lymphs (Manual) Lymphocytes # (Manual) PT INR D-Dimer POC ABG pH POC ABG pCO2 POC ABG pO2 Sodium Potassium Chloride Carbon Dioxide BUN Creatinine Glucose POC Glucose 162 H 153 H Calcium AST ALT C-Reactive Protein Total Protein Albumin Triglycerides Ur Specific [place] Urine WBC (Auto) Urine Creatinine Urine Total Protein Lymph Enumerat CD4/CD8 % CD3 Cells Absolute CD3 Count % CD4 Cells Absolute CD4 Count % CD8 Cells Absolute CD8 Count Absolute CD19 Count HIV DNA Qual (PCR) HIV-1 RNA PCR copies/ml HIV-1 RNA (PCR) log Miscellaneous Test Crossmatch 06/30/18 06/30/18 07/01/18 18:07 Unknown 00:06 WBC RBC Hgb Hct MCV RDW Plt Count Seg Neuts % (Manual) Lymphocytes % (Manual) Seg Neutrophils # Man Abs Lymphs (Manual) Lymphocytes # (Manual) PT INR D-Dimer POC ABG pH POC ABG pCO2 POC ABG pO2 Sodium Potassium 5.9 H Chloride 95.5 L Carbon Dioxide BUN 164 H Creatinine 5.2 H Glucose 151 H POC Glucose 183 H 208 H Calcium 7.6 L AST ALT C-Reactive Protein Total Protein Albumin Triglycerides 223 H Ur Specific [place] Urine WBC (Auto) Urine Creatinine Urine Total Protein Lymph Enumerat CD4/CD8 % CD3 Cells Absolute CD3 Count % CD4 Cells Absolute CD4 Count % CD8 Cells Absolute CD8 Count Absolute CD19 Count HIV DNA Qual (PCR) HIV-1 RNA PCR copies/ml HIV-1 RNA (PCR) log Miscellaneous Test Crossmatch 0307/01/[id number] 07/01/18 04:47 05:43 06:00 WBC RBC Hgb Hct MCV RDW Plt Count Seg Neuts % (Manual) Lymphocytes % (Manual) Seg Neutrophils # Man Abs Lymphs (Manual) Lymphocytes # (Manual) PT INR D-Dimer POC ABG pH 7.060 L POC ABG pCO2 121.0 H POC ABG pO2 Sodium Potassium 5.8 H Chloride 94.1 L Carbon Dioxide BUN 144 H Creatinine 3.1 H Glucose 208 H POC Glucose 214 H Calcium 6.7 L AST ALT C-Reactive Protein Total Protein Albumin Triglycerides Ur Specific [place] Urine WBC (Auto) Urine Creatinine Urine Total Protein Lymph Enumerat CD4/CD8 % CD3 Cells Absolute CD3 Count % CD4 Cells Absolute CD4 Count % CD8 Cells Absolute CD8 Count Absolute CD19 Count HIV DNA Qual (PCR) HIV-1 RNA PCR copies/ml HIV-1 RNA (PCR) log Miscellaneous Test Crossmatch 07/01/18 07/01/18 07/01/18 06:00 06:52 10:00 WBC 17.9 H RBC 2.14 L Hgb 6.5 L 6.6 L Hct 20.0 L 20.5 L MCV RDW 15.9 H Plt Count 94 L Seg Neuts % (Manual) Lymphocytes % (Manual) Seg Neutrophils # Man Abs Lymphs (Manual) Lymphocytes # (Manual) PT INR D-Dimer 2387.14 H POC ABG pH POC ABG pCO2 POC ABG pO2 Sodium Potassium Chloride Carbon Dioxide BUN Creatinine Glucose POC Glucose Calcium AST ALT C-Reactive Protein Total Protein Albumin Triglycerides Ur Specific [place] Urine WBC (Auto) Urine Creatinine Urine Total Protein Lymph Enumerat CD4/CD8 % CD3 Cells Absolute CD3 Count % CD4 Cells Absolute CD4 Count % CD8 Cells Absolute CD8 Count Absolute CD19 Count HIV DNA Qual (PCR) HIV-1 RNA PCR copies/ml HIV-1 RNA (PCR) log Miscellaneous Test Crossmatch 07/01/18 11:11 WBC RBC Hgb Hct MCV RDW Plt Count Seg Neuts % (Manual) Lymphocytes % (Manual) Seg Neutrophils # Man Abs Lymphs (Manual) Lymphocytes # (Manual) PT INR D-Dimer POC ABG pH 7.151 L POC ABG pCO2 100.4 H POC ABG pO2 151 H Sodium Potassium Chloride Carbon Dioxide BUN Creatinine Glucose POC Glucose Calcium AST ALT C-Reactive Protein Total Protein Albumin Triglycerides Ur Specific [place] Urine WBC (Auto) Urine Creatinine Urine Total Protein Lymph Enumerat CD4/CD8 % CD3 Cells Absolute CD3 Count % CD4 Cells Absolute CD4 Count % CD8 Cells Absolute CD8 Count Absolute CD19 Count HIV DNA Qual (PCR) HIV-1 RNA PCR copies/ml HIV-1 RNA (PCR) log Miscellaneous Test Crossmatch Chest x-ray: image reviewed (persitent alveolar infiltrates with bilateral effusions) Allied health notes reviewed: nursing
[2018-07-01] MEDS: PROTONIX IV SCH (12:35)
--- NOTE | 2018-07-01 13:25 | Progress Note ---
Assessment and Plan - Patient Problems (1) Acute tubular necrosis Current Visit: Yes Status: Acute Plan to address problem: Kidney injury acute tubular necrosis of multifactorial etiology secondary to contrast exposure, medications including voriconazole and hypotension. Bactrim could also be contributing either by increasing creatinine by decreasing tubular secretion or Acute tubulo-interstitial nephritis. pt responding well to IV lasix with increasing UOP, kidney indices improving. Will hold off on HD for until pt is more hemodynamically stable and cont IV Lasix, IV bicarb gtt. avoid further nephrotoxins, NSAIDs, IV contrast. will assess indications for renal replacement therapy on a daily basis. Overall poor prognosis (2) AIDS (acquired immune deficiency syndrome) Current Visit: Yes Status: Acute Plan to address problem: Continue management by infectious disease consultants (3) Hyperkalemia Current Visit: Yes Status: Acute Plan to address problem: severe combined respiratory and metabolic acidosis contributing to persistent hyperkalemia. Treat hyperkalemia medically, cont bicarb gtt, vent management as per ICU team. (4) Acute respiratory failure with hypoxia Current Visit: Yes Status: Acute Plan to address problem: Ventilator management by pulmonary (5) Bilateral pneumonia Current Visit: Yes Status: Acute Qualifiers: Pneumonia type: due to unspecified organism Lung location: unspecified part of lung Qualified Code(s): J18.9 - Pneumonia, unspecified organism Plan to address problem: Continue antibiotics per infectious disease financial consultant (6) Anemia Current Visit: Yes Status: Acute Plan to address problem: Being managed by sports attorney Subjective Date of service: 07/01/18 Principal diagnosis: Acute Hypoxemic Resp Failure; AIDS / HIV positive; Severe Sepsis due to PNA Interval history: pt remains intubated, sedated. on vasopressor support with levophed Objective - Vital Signs Vital signs: Vital Signs - 12hr 07/01/18 07/01/18 07/01/18 02:00 03:00 03:19 Temperature 97.2 F L Pulse Rate 95 H 91 H Pulse Rate [ 96 H Anterior Bilateral Throughout] Pulse Rate [ Apical] Pulse Rate [ 97 H Bilateral] Pulse Rate [ Left Dorsalis Pedis] Respiratory 32 H 22 Rate Respiratory 30 H Rate [Anterior Bilateral Throughout] Respiratory 24 Rate [Bilateral ] Blood Pressure 105/53 100/47 O2 Sat by Pulse 97 99 Oximetry 07/01/18 07/01/18 07/01/18 04:00 05:00 06:00 Temperature Pulse Rate 90 92 H 91 H Pulse Rate [ Anterior Bilateral Throughout] Pulse Rate [ Apical] Pulse Rate [ Bilateral] Pulse Rate [ 93 H Left Dorsalis Pedis] Respiratory 25 H 30 H 30 H Rate Respiratory Rate [Anterior Bilateral Throughout] Respiratory Rate [Bilateral ] Blood Pressure 117/57 115/64 99/51 O2 Sat by Pulse 100 95 98 Oximetry 07/01/18 07/01/18 07/01/18 07:00 08:00 09:00 Temperature 92.3 F L Pulse Rate 90 91 H 84 Pulse Rate [ Anterior Bilateral Throughout] Pulse Rate [ 87 Apical] Pulse Rate [ Bilateral] Pulse Rate [ Left Dorsalis Pedis] Respiratory 30 H 31 H 30 H Rate Respiratory Rate [Anterior Bilateral Throughout] Respiratory Rate [Bilateral ] Blood Pressure 98/49 102/52 119/69 O2 Sat by Pulse 99 99 100 Oximetry 07/01/18 07/01/18 07/01/18 09:10 09:12 09:45 Temperature Pulse Rate 89 Pulse Rate [ Anterior Bilateral Throughout] Pulse Rate [ Apical] Pulse Rate [ 89 92 H Bilateral] Pulse Rate [ Left Dorsalis Pedis] Respiratory Rate Respiratory Rate [Anterior Bilateral Throughout] Respiratory 35 H 30 H Rate [Bilateral ] Blood Pressure 117/67 O2 Sat by Pulse 98 Oximetry 07/01/18 07/01/18 07/01/18 10:00 11:01 11:11 Temperature Pulse Rate 86 100 H 102 H Pulse Rate [ Anterior Bilateral Throughout] Pulse Rate [ Apical] Pulse Rate [ Bilateral] Pulse Rate [ Left Dorsalis Pedis] Respiratory 30 H 30 H Rate Respiratory Rate [Anterior Bilateral Throughout] Respiratory Rate [Bilateral ] Blood Pressure 122/72 112/52 111/51 O2 Sat by Pulse 100 100 99 Oximetry 07/01/18 07/01/18 07/01/18 11:40 11:55 12:00 Temperature 96.2 F L 97.0 F L 96.4 F L Pulse Rate 103 H 103 H 101 H Pulse Rate [ Anterior Bilateral Throughout] Pulse Rate [ 104 H Apical] Pulse Rate [ Bilateral] Pulse Rate [ Left Dorsalis Pedis] Respiratory 30 H 30 H 30 H Rate Respiratory Rate [Anterior Bilateral Throughout] Respiratory Rate [Bilateral ] Blood Pressure 110/53 111/54 111/54 O2 Sat by Pulse 97 97 96 Oximetry 07/01/18 07/01/18 12:25 13:00 Temperature 97.0 F L Pulse Rate 104 H 108 H Pulse Rate [ Anterior Bilateral Throughout] Pulse Rate [ Apical] Pulse Rate [ Bilateral] Pulse Rate [ Left Dorsalis Pedis] Respiratory 29 H 30 H Rate Respiratory Rate [Anterior Bilateral Throughout] Respiratory Rate [Bilateral ] Blood Pressure 112/51 113/54 O2 Sat by Pulse 96 95 Oximetry - General Appearance General appearance: chronically ill, sedated on ventilator, intubated EENT: ATNC, mucous membranes moist Neck: no JVD Respiratory: Present: Decreased Breath Sounds Cardiology: regular, S1S2 Gastrointestinal: normoactive bowel sounds Integumentary: no rash, other (no edema ) Neurologic: other (intubated ) - Lab 07/01/18 06:52 07/01/18 06:00 Most recent lab results Calcium 6.7 mg/dL (8.4-10.2) L 07/01/18 06:00 Urine Creatinine 47.2 mg/dL (0.1-20.0) H 06/24/18 22:45 Urine Sodium 40 mmol/L 06/24/18 22:45 Urine Total Protein 25 mg/dL (5-11.8) H 06/24/18 22:45 Medications & Allergies - Medications Allergies/Adverse Reactions: Allergies No Known Allergies Allergy (Verified 06/19/18 06:10) Home Medications: Home Medications Medication Instructions Recorded Confirmed Last Taken Type ALBUTEROL Inhaler (OR & NICU) 2 puff IH QID PRN 06/19/18 06/19/18 Unknown History [Proair] Pantoprazole [Protonix] 40 mg PO QDAY 06/19/18 06/19/18 Unknown History levoFLOXacin [Levaquin TAB] 500 mg PO QDAY 06/19/18 06/19/18 Unknown History Active Medications: Generic Name Dose Route Start Last Admin Trade Name Freq PRN Reason Stop Dose Admin Acetaminophen 650 mg 06/19/18 06:30 06/30/18 01:49 Tylenol PO 650 mg Q4H PRN Administration Pain MILD(1-3)/Fever >100.5/[place] Albuterol/Ipratropium 1 ampul 06/26/18 14:00 07/01/18 09:12 Duoneb *Not For Prn Use* IH 1 ampul Q6HRT PEYTON Administration Lipase/Protease/Amylase 1 each 06/19/18 16:[address] 10,500 Unit FEEDTUBE PRN PRN For Clogged Feeding Tube Azithromycin 1,200 mg 06/25/18 11:00 06/25/18 12:05 Zithromax PO 1,200 mg Mo PEYTON Administration Fentanyl 50 mcg 06/19/18 06:00 06/30/18 21:56 Sublimaze IV 50 mcg Q10MIN PRN Administration ANALGESIA Hydrophilic Ointment 1 applic 06/19/18 06:00 Vaseline Lip Therapy TP Q2HR PRN Dry Lips Fentanyl Citrate 2,000 mcg in 100 mls @ 3.86 mls/hr 06/19/18 06:00 07/01/18 08:29 Fentanyl Drip Premix IV 3 mcg/kg/hr TITR PEYTON 11.581 mls/hr Administration Protocol 1 MCG/KG/HR Norepinephrine 4 mg in 250 mls @ 7.5 mls/hr 06/19/18 15:00 07/01/18 03:39 Levophed Drip 4 Mg/Ns 250 Ml IV 6 mcg/min TITR PEYTON 22.5 mls/hr Administration Protocol 2 MCG/MIN Propofol 1,000 mg in 100 mls @ 2.601 mls/hr 06/24/18 15:00 07/01/18 07:27 Diprivan 10 Mg/Ml IV 25 mcg/kg/min TITR PEYTON 13.005 mls/hr Administration Protocol 5 MCG/KG/MIN Dextrose 500 mls @ 5 mls/hr 06/25/18 08:56 06/28/18 11:07 D5w IV 5 mls/hr PRN PRN Administration FLUSH BEFORE AND AFTER AMPHO B Trimethoprim/Sulfamethoxazole 275 mls @ 350 mls/hr 06/29/18 10:00 07/01/18 10:27 400 mg/ Dextrose IV 250 mls/hr DAILY PEYTON Administration Protocol Amphotericin B 250 mg/ 550 mls @ 250 mls/hr 06/30/18 10:00 06/30/18 10:00 Dextrose IV 250 mls/hr Q48HR PEY[place] Administration Ganciclovir Sodium 120 mg/ 250 mls @ 100 mls/hr 07/02/18 10:00 Sodium Chloride IV MoWeFr PEYTON Vasopressin 20 unit/ Sodium 101 mls @ 9.09 mls/hr 06/29/18 23:00 07/01/18 08:25 Chloride IV 0.03 units/min TITR PEYTON 9.09 mls/hr Administration Protocol 0.03 UNITS/MIN Sodium Bicarbonate 150 meq/ 1,150 mls @ 50 mls/hr 06/30/18 13:30 07/01/18 05:47 Dextrose IV 50 mls/hr DIRECT PEYTON Administration Insulin Glargine 10 units 06/26/18 13:00 07/01/18 10:12 Lantus SUB-Q 10 units DAILY PEYTON Administration Insulin Human Lispro 0 unit 06/20/18 13:00 07/01/18 05:46 Humalog SUB-Q 4 unit Q6HR PEYTON Administration Protocol Methylprednisolone Sodium Succinate 40 mg 06/19/18 22:00 07/01/18 10:10 Solu-Medrol IV 40 mg Q12HR PEYTON Administration Multi-Ingred Cream/Lotion/Oil/Oint 1 applic 06/19/18 06:00 Artificial Tears Ophth Oint OU Q4HR PRN Dry Eye(s) Ondansetron HCl 4 mg 06/19/18 06:30 06/30/18 21:55 Zofran IV 4 mg Q8H PRN Administration Nausea And Vomiting Pantoprazole Sodium 40 mg 07/01/18 11:00 07/01/18 12:35 Protonix IV 40 mg QDAY PEYTON Administration Phenylephrine HCl 2 spray 06/24/18 06:07 06/25/18 05:35 Thompson-Synephrine NS 2 spray Q4H PRN Administration Congestion Simple Syrup 15 ml 06/19/18 16:02 Simple Syrup FEEDTUBE PRN PRN Hypoglycemia Simple Syrup 30 ml 06/19/18 16:02 Simple Syrup FEEDTUBE PRN PRN Hypoglycemia Sodium Bicarbonate 325 mg 06/19/18 16:02 Sodium Bicarbonate FEEDTUBE PRN PRN For Clogged Feeding Tube Sodium Chloride 10 ml 06/19/18 10:00 07/01/18 10:16 Sodium Chloride Flush Syringe 10 Ml IV 10 ml BID PEYTON Administration Sodium Chloride 10 ml 06/19/18 06:30 Sodium Chloride Flush Syringe 10 Ml IV PRN PRN LINE FLUSH
--- NOTE | 2018-07-01 18:45 | Progress Note ---
Assessment and Plan Cultures: 06/19/2018 blood culture: no growth 06/19/2018 tracheal aspirate: usual resp david/ Rothia mucilaginosa 06/19/2018 fungal blood culture: no growth 06/20/2018 Serum CrAg: negative Cytology PJP stain negative GMS stain showed septated fungal hyphae with acute angle branching and yeast forms c/w Aspergillus, Fusarium, Scedosporium and other Dematiaceous fungi. DFA showed rare PJP CMV DNA PCR 06/19/2018 13,166 BAL 06/25/2018 Tigist albicans A/P: 32/M with: #1 Bilateral pneumonia: Extensive bilateral ground glass opacities and pneumonia with severe hypoxia. Unclear etiology ? PJP versus invasive fungal versus disseminated CMV. 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 Lung cytology GMS stain showed septated fungal hyphae with acute angle branching and yeast forms c/w Aspergillus, Fusarium, Scedosporium and other Dematiaceous fungi. 06/19/2018 tracheal aspirate showed usual resp david/ Rothia mucilaginosa. 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 patient has been on bactrim IV for 5 days and IV voriconazole for 4 days witouht any improvement on vent setting still at FiO2 70% p12. - S/P bronch/BAL - pending - s/p voriconazole x 4 days - no improvement, stopped on 06/25 - on amphothericin started on 06/25 - Serum CMV DNA PCR 06/19/2018 13,166 - BAL 06/25/2018 Tigist albicans likely a colonizer - completed vancomycin renally dosed to cover Rothia D5 on 06/28 - Aspregillus ag negative #2 Acute respiratory failure: Requiring mechanical ventilation.Improving FIo2 70% -->60--> 50 --> 60% p 15 -->12 #3 HIV, likely AIDS:CD4=10 / VL 1,300,000 copies #4 Sepsis: Likely secondary to above. #5 JENNIFER: better today, all renally adjusted #6 Sepsis with septic shock: now on pressors levophed and vasopressine; likely from above #7 Epistaxis on 06/24/2018 s/p packing Recs: check blood culture due to shock per renal he is responding well to IV lasix with increasing UOP, kidney indices improving. f/u BAL/bronch f/u serum Galactomannan antigen, [id number] assay, histoplasma urine ag and cocci serology - all pending continue renally adjusted liposomal Amphothericin D6 continue bactrim renally adjusted D11 continue ganciclovir renally adjusted for disseminated CMV - discussed with pharmacy continue azithromycin 1200 mg qweek for MAC prophylaxis F/u genotype Overall prognosis grim, consider hospice. Will follow Keke Manzo MD Infectious Diseases Broadcast Operations Manager [facility] ([facility]) M [phone] O [phone] Subjective Date of service: 07/01/18 Principal diagnosis: Acute Hypoxemic Resp Failure; AIDS / HIV positive; Severe Sepsis due to PNA Interval history: Patient remains critically ill intubated on CMV FiO2 100%, p 12, Now on levophed at 2, vasopressin and Bicarb gtt, sedated on 1 sedative. Tmax 100.4 ROS unable to obtain Objective - Exam Narrative Exam: General appearance: sedated on the vent FIO2 100% p 12 Eyes: anicteric sclerae, moist conjunctivae; no lid-lag; PERRLA +conjunctivae edema shruthi HENT: Atraumatic; oropharynx +ETT. Neck: Trachea midline; supple, no thyromegaly or lymphadenopathy Lungs: shruthi rhonchi CV: tachycardic Abdomen: Soft, non-tender; no masses or hepatosplenomegaly Extremities: +shruthi arm edema / leg edema Skin: Normal temperature, turgor and texture; no rash, ulcers or subcutaneous nodules Psych: sedated. Neuro: sedated Rust Right IJ TLC - Constitutional Vitals: Vital Signs Temp Pulse Resp BP Pulse Ox 97.6 F 108 H 25 H 119/64 99 07/01/18 16:03 07/01/18 18:35 07/01/18 18:01 07/01/18 18:35 07/01/18 18:35 Temperature -Last 24 Hours Temperature 97.6 F Temperature 97.5 F Temperature 97.4 F Temperature 96.0 F Temperature 97.3 F Temperature 97.0 F Temperature 96.4 F Temperature 97.0 F Temperature 96.2 F Temperature 92.3 F Temperature 97.2 F Temperature 99.9 F Temperature 99.8 F - Labs CBC & Chem 7: 07/01/18 06:52 07/01/18 06:00 Labs: Abnormal lab results 06/29/18 07/01/18 07/01/18 Range/Units 09:50 00:06 04:47 WBC (4.5-11.0) K/mm3 RBC (3.65-5.03) M/mm3 Hgb (11.8-15.2) gm/dl Hct (35.5-45.6) % RDW (13.2-15.2) % Plt Count (140-440) K/mm3 D-Dimer (0-234) ng/mlDDU POC ABG pH 7.060 L (7.35-7.45) POC ABG pCO2 121.0 H (35-45) POC ABG pO2 (80-105) Potassium (3.6-5.0) mmol/L Chloride (98-107) mmol/L BUN (9-20) mg/dL Creatinine (0.8-1.5) mg/dL Glucose (75-100) mg/dL POC Glucose 208 H (70-105) Calcium (8.4-10.2) mg/dL Crossmatch See Detail 07/01/18 07/01/18 07/01/18 Range/Units 05:43 06:00 06:00 WBC 17.9 H (4.5-11.0) K/mm3 RBC 2.14 L (3.65-5.03) M/mm3 Hgb 6.5 L (11.8-15.2) gm/dl Hct 20.0 L (35.5-45.6) % RDW 15.9 H (13.2-15.2) % Plt Count 94 L (140-440) K/mm3 D-Dimer (0-234) ng/mlDDU POC ABG pH (7.35-7.45) POC ABG pCO2 (35-45) POC ABG pO2 (80-105) Potassium 5.8 H (3.6-5.0) mmol/L Chloride 94.1 L (98-107) mmol/L BUN 144 H (9-20) mg/dL Creatinine 3.1 H (0.8-1.5) mg/dL Glucose 208 H (75-100) mg/dL POC Glucose 214 H (70-105) Calcium 6.7 L (8.4-10.2) mg/dL Crossmatch 07/01/18 07/01/18 07/01/18 Range/Units 06:52 10:00 11:11 WBC (4.5-11.0) K/mm3 RBC (3.65-5.03) M/mm3 Hgb 6.6 L (11.8-15.2) gm/dl Hct 20.5 L (35.5-45.6) % RDW (13.2-15.2) % Plt Count (140-440) K/mm3 D-Dimer 2387.14 H (0-234) ng/mlDDU POC ABG pH 7.151 L (7.35-7.45) POC ABG pCO2 100.4 H (35-45) POC ABG pO2 151 H (80-105) Potassium (3.6-5.0) mmol/L Chloride (98-107) mmol/L BUN (9-20) mg/dL Creatinine (0.8-1.5) mg/dL Glucose (75-100) mg/dL POC Glucose (70-105) Calcium (8.4-10.2) mg/dL Crossmatch 07/01/18 Range/Units 11:41 WBC (4.5-11.0) K/mm3 RBC (3.65-5.03) M/mm3 Hgb (11.8-15.2) gm/dl Hct (35.5-45.6) % RDW (13.2-15.2) % Plt Count (140-440) K/mm3 D-Dimer (0-234) ng/mlDDU POC ABG pH (7.35-7.45) POC ABG pCO2 (35-45) POC ABG pO2 (80-105) Potassium (3.6-5.0) mmol/L Chloride (98-107) mmol/L BUN (9-20) mg/dL Creatinine (0.8-1.5) mg/dL Glucose (75-100) mg/dL POC Glucose 213 H (70-105) Calcium (8.4-10.2) mg/dL Crossmatch
[2018-07-02] MEDS: fentaNYL DRIP Premix 2,000 MCG/100 ML BAG IV SCH ×3 (00:35→17:18)
[2018-07-02] MEDS: LEVOPHED DRIP 4 MG/NS 250 ML 4 MG/250 ML BAG IV SCH (00:37)
[2018-07-02] MEDS: SODIUM BICARBONATE 150 MEQ in D5W 1,000 ML IV SCH ×2 (00:39→07:04)
[2018-07-02] MEDS: DIPRIVAN 10 MG/ML 1,000 MG/100 ML BOTTLE IV SCH ×3 (00:40→20:34)
[2018-07-02] MEDS: DUONEB *Not for PRN Use IH SCH ×4 (05:12→20:33)
[2018-07-02 05:13] LABS: Hematocrit 23.8 % (35.5-45.6); Hemoglobin 8.1 gm/dl (11.8-15.2); Mean Corpuscular HGB Conc 34 % (32-34); Mean Corpuscular Volume 89 fl (84-94); Red Blood Count 2.68 M/mm3 (3.65-5.03); Red Cell Distribution Width 14.8 % (13.2-15.2)
[2018-07-02 05:32] LABS: Calcium 6.6 mg/dL (8.4-10.2); Platelet Count 81 K/mm3 (140-440)
[2018-07-02] MEDS: HumaLOG SUB-Q SCH ×3 (05:53→17:52)
[2018-07-02] MEDS: SODIUM CHLORIDE FLUSH SYRINGE 10 ML IV SCH ×3 (05:53→21:38)
[2018-07-02] MEDS: Vasostrict 20 UNIT in NACL 0.9% 100 ML IV SCH ×2 (08:15→20:55)
--- NOTE | 2018-07-02 09:00 | Progress Note ---
Assessment and Plan Acute Hypoxemic Respiratory Failure on MVS ARDS AIDS / HIV positive Severe Sepsis with septic shock due to Pneumonia Severe respiratory acidosis Lower extremity DVT Acute renal failure Thrombocytopenia Hematuria Anemia requiring blood transfusions Medical decision making -Transfuse to keep HgB>7g/dL -AGB done, improved oxygenation and acid base -Continue to wean PEEP and O2 sats, discussed with renal will discontinue bicarb infusion plan on decreasing PEEP to 8, to keep airway pressures(Pplat) <30 -ABG in am to re-evaluate oxygenation and acid-base -Continue PPI renally dosed -Urology consult notes reviewed----conservative management for now -Nutrition consult to initiate enteric feeding -Stop insulin in view of hypoglycemia -Continue to hold all anticoagulation for now -Target glucose of 140mg- 180mg/dL, add sliding scale insulin therapy -Family meeting to be arranged with case management to re-address goals of care and set expectations. Severe sepsis with multiorgan dysfunction, ARDS and HIV/AIDS, prognosis is dismal -Continue all other care as outlined below -VAP bundle addressed - Continue supplemental oxygen to keep sats > 90% -Wean PEEP and FIO2 as tolerated -ARDS net protocol with lung protective strategies Permissive hypercapnia for now. -OK for bicarbonate if pH <7.1 -Fluid management should be restrictive to allow for oxygenation and ventilation - continue bronchodilators per protocol -Vasopressor support wean for MAP >65 -Continue steroids -Continue empiric and targeted anti-infective's per ID recs -Aspiration precautions, HOB>40 -Accucheck and monitor for hypoglycemia - Continue to monitor for for drug-drug interaction - Daily SATs and SBT per protocol once his ventilatory needs are minimal - Stress ulcer prophylaxis -Anticoagulation, stopped Eliquis. -Critical care bundles addressed Extensive discussions with case management, Dr. Argueta(ID), the patient's maternal aunt, patient's cousin and his uncle. The gravity of his illness was discussed. Code status was discussed--they want to call his mother who is in [place], and they will get back to us about a DNAR status. Remains full care for now. CONDITION: CRITICAL PROGNOSIS: POOR CODE STATUS: FULL CODE The high probability of a clinically significant, sudden or life-threatening deterioration of the [cardiac, respiratory] system(s) required my full and direct attention, intervention and personal management. The aggregate critical care time was [35] minutes without overlap. Time includes spent on; [x] Data Review and interpretation [x] Patient assessment and monitoring of vital signs [x] Documentation Subjective Date of service: 07/02/18 Principal diagnosis: Acute Hypoxemic Resp Failure; AIDS / HIV positive; Severe Sepsis due to PNA Interval history: Patient is seen today for: Acute Hypoxemic Respiratory Failure on MVS; AIDS / HIV positive; Severe Sepsis due to Pneumonia; Hyponatremia; Severe metabolic acidosis Seen and examined at bedside; 24hour events reviewed; nursing and respiratory care staff consulted; no adverse overnight events reported to me; ; on fentanyl and propofol; remains on MVS requiring PEEP 15 and FIO2 100%; no seizures reported; no emesis or overt aspiration, Hypothermia overnight, hematuria, bloody tracheal aspirate. RT increase TV to 500 overnight for respiratory acidosis, airway pressures in the 50s Remains unresponsive Objective Vital Signs - 12hr 07/01/18 07/01/18 07/01/18 21:01 22:01 23:01 Temperature Pulse Rate 98 H 97 H 103 H Pulse Rate [ Anterior Bilateral Throughout] Pulse Rate [ Apical] Pulse Rate [ Bilateral] Pulse Rate [ From Monitor] Respiratory 7 L 30 H 33 H Rate Respiratory Rate [Anterior Bilateral Throughout] Respiratory Rate [Bilateral ] Blood Pressure 134/68 144/67 140/73 O2 Sat by Pulse 100 99 99 Oximetry 07/01/18 07/01/18 07/01/18 23:15 23:17 23:29 Temperature 98.5 F Pulse Rate 97 H 106 H Pulse Rate [ Anterior Bilateral Throughout] Pulse Rate [ Apical] Pulse Rate [ Bilateral] Pulse Rate [ From Monitor] Respiratory 30 H Rate Respiratory Rate [Anterior Bilateral Throughout] Respiratory Rate [Bilateral ] Blood Pressure 145/74 140/76 O2 Sat by Pulse 100 100 Oximetry 07/02/18 07/02/18 07/02/18 00:00 00:01 01:01 Temperature Pulse Rate 102 H 110 H Pulse Rate [ Anterior Bilateral Throughout] Pulse Rate [ 104 H Apical] Pulse Rate [ Bilateral] Pulse Rate [ 104 H From Monitor] Respiratory 19 21 16 Rate Respiratory Rate [Anterior Bilateral Throughout] Respiratory Rate [Bilateral ] Blood Pressure 136/74 138/74 O2 Sat by Pulse 98 98 98 Oximetry 07/02/18 07/02/18 07/02/18 02:00 02:21 03:01 Temperature Pulse Rate 105 H 105 H 106 H Pulse Rate [ Anterior Bilateral Throughout] Pulse Rate [ Apical] Pulse Rate [ Bilateral] Pulse Rate [ From Monitor] Respiratory 21 16 Rate Respiratory Rate [Anterior Bilateral Throughout] Respiratory Rate [Bilateral ] Blood Pressure 124/73 125/74 125/74 O2 Sat by Pulse 98 100 98 Oximetry 07/02/18 07/02/18 07/02/18 03:31 04:00 04:01 Temperature 98.7 F Pulse Rate 102 H 100 H Pulse Rate [ Anterior Bilateral Throughout] Pulse Rate [ 104 H Apical] Pulse Rate [ Bilateral] Pulse Rate [ 107 H From Monitor] Respiratory 24 19 Rate Respiratory Rate [Anterior Bilateral Throughout] Respiratory Rate [Bilateral ] Blood Pressure 137/77 161/55 O2 Sat by Pulse 100 97 Oximetry 07/02/18 07/02/18 07/02/18 05:00 05:01 05:19 Temperature Pulse Rate 105 H Pulse Rate [ Anterior Bilateral Throughout] Pulse Rate [ Apical] Pulse Rate [ 97 H Bilateral] Pulse Rate [ From Monitor] Respiratory 24 Rate Respiratory Rate [Anterior Bilateral Throughout] Respiratory 30 H Rate [Bilateral ] Blood Pressure 148/74 O2 Sat by Pulse 98 100 Oximetry 07/02/18 07/02/18 07/02/18 06:01 07:01 07:19 Temperature Pulse Rate 104 H 98 H Pulse Rate [ 105 H Anterior Bilateral Throughout] Pulse Rate [ Apical] Pulse Rate [ 106 H Bilateral] Pulse Rate [ From Monitor] Respiratory 25 H 15 Rate Respiratory 30 H Rate [Anterior Bilateral Throughout] Respiratory 30 H Rate [Bilateral ] Blood Pressure 152/77 121/73 O2 Sat by Pulse 97 97 Oximetry 07/02/18 07/02/18 07/02/18 07:22 08:00 08:01 Temperature 99.3 F Pulse Rate 110 H 104 H Pulse Rate [ Anterior Bilateral Throughout] Pulse Rate [ 109 H Apical] Pulse Rate [ Bilateral] Pulse Rate [ 107 H From Monitor] Respiratory 29 H 22 Rate Respiratory Rate [Anterior Bilateral Throughout] Respiratory Rate [Bilateral ] Blood Pressure 145/73 149/75 O2 Sat by Pulse 97 98 98 Oximetry Constitutional: comatose, appears uncomfortable, other (young HM normocephalic and atraumatic with moderately increased respiratory effort at rest) Eyes: non-icteric ENT: oropharynx moist, other (ETT 23 cm SATISH) Neck: supple, no lymphadenopathy, no JVD, other (no thyromegaly) Effort: mildly labored Ascultation: Bilateral: diminished breath sounds, rhonchi Percussion: Bilateral: not dull Cardiovascular: regular rate and rhythm, other (S1,S2, no murmurs, gallops or rubs) Gastrointestinal: normoactive bowel sounds, soft, non-tender, non-distended Integumentary: rash Extremities: no cyanosis, pink and warm, pulses normal, no ischemia or petechiae, edema (bilateral upper extemity ), anasarca Neurologic: pupils equal and round, unable to assess Psychiatric: other (unable to assess) CBC and BMP: 07/03/18 05:00 07/03/18 05:00 ABG, PT/INR, D-dimer: ABG POC ABG pH 7.319 (7.35-7.45) L 07/02/18 05:00 POC ABG pCO2 89.8 (35-45) H 07/02/18 05:00 POC ABG pO2 119 (80-105) H 07/02/18 05:00 POC ABG HCO3 46.2 07/02/18 05:00 POC ABG Total CO2 49 07/02/18 05:00 POC ABG O2 Sat 98 07/02/18 05:00 PT/INR, D-dimer PT 14.3 Sec. (12.2-14.9) 07/01/18 09:11 INR 1.05 (0.87-1.13) 07/01/18 09:11 D-Dimer 2387.14 ng/mlDDU (0-234) H 07/01/18 10:00 Abnormal lab findings: Abnormal Labs 06/19/18 06/19/18 06/19/18 03:31 07:11 07:42 WBC RBC Hgb Hct MCV RDW Plt Count Seg Neuts % (Manual) Lymphocytes % (Manual) Seg Neutrophils # Man Abs Lymphs (Manual) 409 L Lymphocytes # (Manual) PT INR D-Dimer POC ABG pH 6.974 L POC ABG pCO2 22.0 L 83.4 H POC ABG pO2 28 L 122 H Sodium Potassium Chloride Carbon Dioxide BUN Creatinine Glucose POC Glucose Calcium AST ALT C-Reactive Protein Total Protein Albumin Triglycerides Ur Specific [place] Urine WBC (Auto) Urine Creatinine Urine Total Protein Lymph Enumerat CD4/CD8 0.05 L % CD3 Cells 45 L Absolute CD3 Count 185 L % CD4 Cells 2 L Absolute CD4 Count 10 L % CD8 Cells 43 H Absolute CD8 Count 167 L Absolute CD19 Count 79 L HIV DNA Qual (PCR) HIV-1 RNA PCR copies/ml HIV-1 RNA (PCR) log Miscellaneous Test Crossmatch 06/19/18 06/19/18 06/19/18 08:07 08:16 09:20 WBC RBC Hgb Hct MCV RDW Plt Count Seg Neuts % (Manual) Lymphocytes % (Manual) Seg Neutrophils # Man Abs Lymphs (Manual) Lymphocytes # (Manual) PT INR D-Dimer POC ABG pH 6.996 L POC ABG pCO2 82.4 H POC ABG pO2 Sodium Potassium Chloride Carbon Dioxide BUN Creatinine Glucose POC Glucose Calcium AST ALT C-Reactive Protein Total Protein Albumin Triglycerides Ur Specific [place] 1.060 H Urine WBC (Auto) 8.0 H Urine Creatinine Urine Total Protein Lymph Enumerat CD4/CD8 % CD3 Cells Absolute CD3 Count % CD4 Cells Absolute CD4 Count % CD8 Cells Absolute CD8 Count Absolute CD19 Count HIV DNA Qual (PCR) Detected H HIV-1 RNA PCR copies/ml HIV-1 RNA (PCR) log Miscellaneous Test Crossmatch 06/19/18 06/19/18 06/19/18 09:49 11:15 15:16 WBC RBC Hgb Hct MCV RDW Plt Count Seg Neuts % (Manual) Lymphocytes % (Manual) Seg Neutrophils # Man Abs Lymphs (Manual) Lymphocytes # (Manual) PT INR D-Dimer POC ABG pH 7.198 L 7.206 L POC ABG pCO2 POC ABG pO2 75 L Sodium Potassium Chloride Carbon Dioxide BUN Creatinine Glucose POC Glucose Calcium AST ALT C-Reactive Protein Total Protein Albumin Triglycerides Ur Specific [place] Urine WBC (Auto) Urine Creatinine Urine Total Protein Lymph Enumerat CD4/CD8 % CD3 Cells Absolute CD3 Count % CD4 Cells Absolute CD4 Count % CD8 Cells Absolute CD8 Count Absolute CD19 Count HIV DNA Qual (PCR) HIV-1 RNA PCR copies/ml [id number] H HIV-1 RNA (PCR) log 6.11 H Miscellaneous Test Crossmatch 06/19/18 06/19/18 06/19/18 18:54 Unknown Unknown WBC 12.9 H RBC Hgb Hct MCV RDW Plt Count Seg Neuts % (Manual) Lymphocytes % (Manual) 5.0 L Seg Neutrophils # Man Abs Lymphs (Manual) Lymphocytes # (Manual) 0.6 L PT 15.9 H INR 1.19 H D-Dimer 8449.09 H POC ABG pH POC ABG pCO2 POC ABG pO2 Sodium Potassium Chloride Carbon Dioxide BUN Creatinine Glucose POC Glucose 196 H Calcium AST ALT C-Reactive Protein Total Protein Albumin Triglycerides Ur Specific [place] Urine WBC (Auto) Urine Creatinine Urine Total Protein Lymph Enumerat CD4/CD8 % CD3 Cells Absolute CD3 Count % CD4 Cells Absolute CD4 Count % CD8 Cells Absolute CD8 Count Absolute CD19 Count HIV DNA Qual (PCR) HIV-1 RNA PCR copies/ml HIV-1 RNA (PCR) log Miscellaneous Test Crossmatch 06/19/18 06/19/18 06/20/18 Unknown Unknown 04:33 WBC RBC Hgb Hct MCV RDW Plt Count Seg Neuts % (Manual) Lymphocytes % (Manual) Seg Neutrophils # Man Abs Lymphs (Manual) Lymphocytes # (Manual) PT INR D-Dimer POC ABG pH 7.249 L POC ABG pCO2 POC ABG pO2 118 H Sodium 129 L Potassium Chloride 90.7 L Carbon Dioxide 17 L BUN Creatinine 0.6 L Glucose 199 H POC Glucose Calcium 8.1 L AST 53 H ALT C-Reactive Protein Total Protein 6.0 L Albumin 2.8 L Triglycerides Ur Specific [place] Urine WBC (Auto) Urine Creatinine Urine Total Protein Lymph Enumerat CD4/CD8 % CD3 Cells Absolute CD3 Count % CD4 Cells Absolute CD4 Count % CD8 Cells Absolute CD8 Count Absolute CD19 Count HIV DNA Qual (PCR) HIV-1 RNA PCR copies/ml HIV-1 RNA (PCR) log Miscellaneous Test Crossmatch 06/20/18 06/20/18 06/20/18 08:13 08:13 12:59 WBC 11.8 H RBC 3.25 L Hgb 9.8 L D Hct 30.4 L D MCV RDW Plt Count Seg Neuts % (Manual) 99.0 H Lymphocytes % (Manual) 1.0 L Seg Neutrophils # Man 11.7 H Abs Lymphs (Manual) Lymphocytes # (Manual) 0.1 L PT INR D-Dimer POC ABG pH POC ABG pCO2 POC ABG pO2 Sodium Potassium Chloride Carbon Dioxide 19 L BUN Creatinine Glucose 223 H POC Glucose 174 H Calcium 6.6 L D AST 1240 H ALT 836 H C-Reactive Protein Total Protein 4.9 L Albumin 2.1 L Triglycerides Ur Specific [place] Urine WBC (Auto) Urine Creatinine Urine Total Protein Lymph Enumerat CD4/CD8 % CD3 Cells Absolute CD3 Count % CD4 Cells Absolute CD4 Count % CD8 Cells Absolute CD8 Count Absolute CD19 Count HIV DNA Qual (PCR) HIV-1 RNA PCR copies/ml HIV-1 RNA (PCR) log Miscellaneous Test Crossmatch 06/20/18 06/20/18 06/21/18 17:42 23:44 04:08 WBC RBC Hgb Hct MCV RDW Plt Count Seg Neuts % (Manual) Lymphocytes % (Manual) Seg Neutrophils # Man Abs Lymphs (Manual) Lymphocytes # (Manual) PT INR D-Dimer POC ABG pH 7.309 L POC ABG pCO2 POC ABG pO2 Sodium Potassium Chloride Carbon Dioxide BUN Creatinine Glucose POC Glucose 177 H 195 H Calcium AST ALT C-Reactive Protein Total Protein Albumin Triglycerides Ur Specific [place] Urine WBC (Auto) Urine Creatinine Urine Total Protein Lymph Enumerat CD4/CD8 % CD3 Cells Absolute CD3 Count % CD4 Cells Absolute CD4 Count % CD8 Cells Absolute CD8 Count Absolute CD19 Count HIV DNA Qual (PCR) HIV-1 RNA PCR copies/ml HIV-1 RNA (PCR) log Miscellaneous Test Crossmatch 06/21/18 06/21/18 06/21/18 04:19 04:19 05:27 WBC 13.8 H RBC 3.02 L Hgb 9.2 L Hct 28.0 L MCV RDW Plt Count Seg Neuts % (Manual) Lymphocytes % (Manual) Seg Neutrophils # Man Abs Lymphs (Manual) Lymphocytes # (Manual) PT INR D-Dimer POC ABG pH POC ABG pCO2 POC ABG pO2 Sodium 135 L Potassium Chloride Carbon Dioxide 21 L BUN Creatinine 0.7 L Glucose 161 H POC Glucose 187 H Calcium 7.2 L AST 390 H ALT 622 H C-Reactive Protein Total Protein 5.3 L Albumin 2.4 L Triglycerides Ur Specific [place] Urine WBC (Auto) Urine Creatinine Urine Total Protein Lymph Enumerat CD4/CD8 % CD3 Cells Absolute CD3 Count % CD4 Cells Absolute CD4 Count % CD8 Cells Absolute CD8 Count Absolute CD19 Count HIV DNA Qual (PCR) HIV-1 RNA PCR copies/ml HIV-1 RNA (PCR) log Miscellaneous Test Crossmatch 06/21/18 06/21/18 06/21/18 11:33 12:32 17:45 WBC RBC Hgb Hct MCV RDW Plt Count Seg Neuts % (Manual) Lymphocytes % (Manual) Seg Neutrophils # Man Abs Lymphs (Manual) Lymphocytes # (Manual) PT INR D-Dimer POC ABG pH POC ABG pCO2 POC ABG pO2 Sodium Potassium Chloride Carbon Dioxide BUN Creatinine Glucose POC Glucose 147 H 172 H Calcium AST ALT C-Reactive Protein Total Protein Albumin Triglycerides Ur Specific [place] Urine WBC (Auto) Urine Creatinine Urine Total Protein Lymph Enumerat CD4/CD8 % CD3 Cells Absolute CD3 Count % CD4 Cells Absolute CD4 Count % CD8 Cells Absolute CD8 Count Absolute CD19 Count HIV DNA Qual (PCR) HIV-1 RNA PCR copies/ml HIV-1 RNA (PCR) log Miscellaneous Test see below H Crossmatch 06/21/18 06/22/18 06/22/18 23:25 04:47 04:47 WBC 11.5 H RBC 2.93 L Hgb 9.0 L Hct 26.5 L MCV RDW Plt Count Seg Neuts % (Manual) Lymphocytes % (Manual) Seg Neutrophils # Man Abs Lymphs (Manual) Lymphocytes # (Manual) PT INR D-Dimer POC ABG pH POC ABG pCO2 POC ABG pO2 Sodium Potassium Chloride Carbon Dioxide BUN 22 H Creatinine Glucose 201 H POC Glucose 152 H Calcium 7.8 L AST 129 H ALT 416 H C-Reactive Protein Total Protein 5.3 L Albumin 2.4 L Triglycerides Ur Specific [place] Urine WBC (Auto) Urine Creatinine Urine Total Protein Lymph Enumerat CD4/CD8 % CD3 Cells Absolute CD3 Count % CD4 Cells Absolute CD4 Count % CD8 Cells Absolute CD8 Count Absolute CD19 Count HIV DNA Qual (PCR) HIV-1 RNA PCR copies/ml HIV-1 RNA (PCR) log Miscellaneous Test Crossmatch 06/22/18 06/22/18 06/22/18 05:23 11:43 17:45 WBC RBC Hgb Hct MCV RDW Plt Count Seg Neuts % (Manual) Lymphocytes % (Manual) Seg Neutrophils # Man Abs Lymphs (Manual) Lymphocytes # (Manual) PT INR D-Dimer POC ABG pH POC ABG pCO2 POC ABG pO2 Sodium Potassium Chloride Carbon Dioxide BUN Creatinine Glucose POC Glucose 170 H 175 H 176 H Calcium AST ALT C-Reactive Protein Total Protein Albumin Triglycerides Ur Specific [place] Urine WBC (Auto) Urine Creatinine Urine Total Protein Lymph Enumerat CD4/CD8 % CD3 Cells Absolute CD3 Count % CD4 Cells Absolute CD4 Count % CD8 Cells Absolute CD8 Count Absolute CD19 Count HIV DNA Qual (PCR) HIV-1 RNA PCR copies/ml HIV-1 RNA (PCR) log Miscellaneous Test Crossmatch 06/23/18 06/23/18 06/23/18 00:24 05:06 05:11 WBC 11.2 H RBC 2.78 L Hgb 8.6 L Hct 25.3 L MCV RDW Plt Count Seg Neuts % (Manual) Lymphocytes % (Manual) Seg Neutrophils # Man Abs Lymphs (Manual) Lymphocytes # (Manual) PT INR D-Dimer POC ABG pH POC ABG pCO2 POC ABG pO2 Sodium Potassium Chloride Carbon Dioxide BUN Creatinine Glucose POC Glucose 178 H 182 H Calcium AST ALT C-Reactive Protein Total Protein Albumin Triglycerides Ur Specific [place] Urine WBC (Auto) Urine Creatinine Urine Total Protein Lymph Enumerat CD4/CD8 % CD3 Cells Absolute CD3 Count % CD4 Cells Absolute CD4 Count % CD8 Cells Absolute CD8 Count Absolute CD19 Count HIV DNA Qual (PCR) HIV-1 RNA PCR copies/ml HIV-1 RNA (PCR) log Miscellaneous Test Crossmatch 06/23/18 06/23/18 06/23/18 05:11 05:51 12:21 WBC RBC Hgb Hct MCV RDW Plt Count Seg Neuts % (Manual) Lymphocytes % (Manual) Seg Neutrophils # Man Abs Lymphs (Manual) Lymphocytes # (Manual) PT INR D-Dimer POC ABG pH POC ABG pCO2 POC ABG pO2 69 L Sodium Potassium Chloride Carbon Dioxide BUN 34 H Creatinine 1.7 H D Glucose 191 H POC Glucose 181 H Calcium 7.5 L AST 63 H ALT 297 H C-Reactive Protein Total Protein 5.3 L Albumin 2.4 L Triglycerides Ur Specific [place] Urine WBC (Auto) Urine Creatinine Urine Total Protein Lymph Enumerat CD4/CD8 % CD3 Cells Absolute CD3 Count % CD4 Cells Absolute CD4 Count % CD8 Cells Absolute CD8 Count Absolute CD19 Count HIV DNA Qual (PCR) HIV-1 RNA PCR copies/ml HIV-1 RNA (PCR) log Miscellaneous Test Crossmatch 06/23/18 06/23/18 06/23/18 13:57 17:00 18:40 WBC RBC Hgb Hct MCV RDW Plt Count Seg Neuts % (Manual) Lymphocytes % (Manual) Seg Neutrophils # Man Abs Lymphs (Manual) Lymphocytes # (Manual) PT INR D-Dimer POC ABG pH POC ABG pCO2 POC ABG pO2 Sodium Potassium Chloride Carbon Dioxide BUN 38 H Creatinine 1.8 H Glucose POC Glucose 196 H Calcium AST ALT C-Reactive Protein 1.60 H Total Protein Albumin Triglycerides Ur Specific [place] Urine WBC (Auto) Urine Creatinine Urine Total Protein Lymph Enumerat CD4/CD8 % CD3 Cells Absolute CD3 Count % CD4 Cells Absolute CD4 Count % CD8 Cells Absolute CD8 Count Absolute CD19 Count HIV DNA Qual (PCR) HIV-1 RNA PCR copies/ml HIV-1 RNA (PCR) log Miscellaneous Test Crossmatch 06/23/18 06/23/18 06/24/18 21:16 23:22 04:12 WBC RBC 2.89 L Hgb 8.8 L Hct 26.9 L MCV RDW Plt Count Seg Neuts % (Manual) Lymphocytes % (Manual) Seg Neutrophils # Man Abs Lymphs (Manual) Lymphocytes # (Manual) PT INR D-Dimer POC ABG pH 7.311 L POC ABG pCO2 47.4 H POC ABG pO2 Sodium Potassium Chloride Carbon Dioxide BUN Creatinine Glucose POC Glucose 165 H Calcium AST ALT C-Reactive Protein Total Protein Albumin Triglycerides Ur Specific [place] Urine WBC (Auto) Urine Creatinine Urine Total Protein Lymph Enumerat CD4/CD8 % CD3 Cells Absolute CD3 Count % CD4 Cells Absolute CD4 Count % CD8 Cells Absolute CD8 Count Absolute CD19 Count HIV DNA Qual (PCR) HIV-1 RNA PCR copies/ml HIV-1 RNA (PCR) log Miscellaneous Test Crossmatch 06/24/18 06/24/18 06/24/18 04:12 04:46 05:24 WBC RBC Hgb Hct MCV RDW Plt Count Seg Neuts % (Manual) Lymphocytes % (Manual) Seg Neutrophils # Man Abs Lymphs (Manual) Lymphocytes # (Manual) PT INR D-Dimer POC ABG pH 7.250 L POC ABG pCO2 55.8 H POC ABG pO2 Sodium Potassium 5.4 H Chloride Carbon Dioxide BUN 44 H Creatinine 2.2 H Glucose 206 H POC Glucose 183 H Calcium 7.5 L AST ALT C-Reactive Protein Total Protein Albumin Triglycerides Ur Specific [place] Urine WBC (Auto) Urine Creatinine Urine Total Protein Lymph Enumerat CD4/CD8 % CD3 Cells Absolute CD3 Count % CD4 Cells Absolute CD4 Count % CD8 Cells Absolute CD8 Count Absolute CD19 Count HIV DNA Qual (PCR) HIV-1 RNA PCR copies/ml HIV-1 RNA (PCR) log Miscellaneous Test Crossmatch 06/24/18 06/24/18 06/24/18 11:14 16:40 17:16 WBC RBC Hgb Hct MCV RDW Plt Count Seg Neuts % (Manual) Lymphocytes % (Manual) Seg Neutrophils # Man Abs Lymphs (Manual) Lymphocytes # (Manual) PT INR D-Dimer POC ABG pH 7.067 L POC ABG pCO2 91.7 H POC ABG pO2 134 H Sodium Potassium Chloride Carbon Dioxide BUN Creatinine Glucose POC Glucose 151 H 195 H Calcium AST ALT C-Reactive Protein Total Protein Albumin Triglycerides Ur Specific [place] Urine WBC (Auto) Urine Creatinine Urine Total Protein Lymph Enumerat CD4/CD8 % CD3 Cells Absolute CD3 Count % CD4 Cells Absolute CD4 Count % CD8 Cells Absolute CD8 Count Absolute CD19 Count HIV DNA Qual (PCR) HIV-1 RNA PCR copies/ml HIV-1 RNA (PCR) log Miscellaneous Test Crossmatch 06/24/18 06/24/18 06/24/18 18:03 22:45 22:45 WBC RBC Hgb Hct MCV RDW Plt Count Seg Neuts % (Manual) Lymphocytes % (Manual) Seg Neutrophils # Man Abs Lymphs (Manual) Lymphocytes # (Manual) PT INR D-Dimer POC ABG pH 7.234 L POC ABG pCO2 59.9 H POC ABG pO2 121 H Sodium Potassium Chloride Carbon Dioxide BUN Creatinine Glucose POC Glucose Calcium AST ALT C-Reactive Protein Total Protein Albumin Triglycerides Ur Specific [place] Urine WBC (Auto) 9.0 H Urine Creatinine 47.2 H Urine Total Protein 25 H Lymph Enumerat CD4/CD8 % CD3 Cells Absolute CD3 Count % CD4 Cells Absolute CD4 Count % CD8 Cells Absolute CD8 Count Absolute CD19 Count HIV DNA Qual (PCR) HIV-1 RNA PCR copies/ml HIV-1 RNA (PCR) log Miscellaneous Test Crossmatch 06/24/18 06/24/18 06/25/18 Unknown 23:59 04:36 WBC RBC Hgb Hct MCV RDW Plt Count Seg Neuts % (Manual) Lymphocytes % (Manual) Seg Neutrophils # Man Abs Lymphs (Manual) Lymphocytes # (Manual) PT 15.6 H INR 1.17 H D-Dimer POC ABG pH 7.200 L POC ABG pCO2 65.3 H POC ABG pO2 Sodium Potassium Chloride Carbon Dioxide BUN Creatinine Glucose POC Glucose 233 H Calcium AST ALT C-Reactive Protein Total Protein Albumin Triglycerides Ur Specific [place] Urine WBC (Auto) Urine Creatinine Urine Total Protein Lymph Enumerat CD4/CD8 % CD3 Cells Absolute CD3 Count % CD4 Cells Absolute CD4 Count % CD8 Cells Absolute CD8 Count Absolute CD19 Count HIV DNA Qual (PCR) HIV-1 RNA PCR copies/ml HIV-1 RNA (PCR) log Miscellaneous Test Crossmatch 06/25/18 06/25/18 06/25/18 05:29 11:12 11:40 WBC RBC 2.67 L Hgb 8.5 L Hct 25.6 L MCV 96 H RDW 16.0 H Plt Count Seg Neuts % (Manual) Lymphocytes % (Manual) Seg Neutrophils # Man Abs Lymphs (Manual) Lymphocytes # (Manual) PT INR D-Dimer POC ABG pH POC ABG pCO2 POC ABG pO2 Sodium Potassium Chloride Carbon Dioxide BUN Creatinine Glucose POC Glucose 212 H 244 H Calcium AST ALT C-Reactive Protein Total Protein Albumin Triglycerides Ur Specific [place] Urine WBC (Auto) Urine Creatinine Urine Total Protein Lymph Enumerat CD4/CD8 % CD3 Cells Absolute CD3 Count % CD4 Cells Absolute CD4 Count % CD8 Cells Absolute CD8 Count Absolute CD19 Count HIV DNA Qual (PCR) HIV-1 RNA PCR copies/ml HIV-1 RNA (PCR) log Miscellaneous Test Crossmatch 06/25/18 06/25/18 06/25/18 11:40 17:18 18:08 WBC RBC Hgb Hct MCV RDW Plt Count Seg Neuts % (Manual) Lymphocytes % (Manual) Seg Neutrophils # Man Abs Lymphs (Manual) Lymphocytes # (Manual) PT INR D-Dimer POC ABG pH 7.206 L POC ABG pCO2 68.1 H POC ABG pO2 Sodium Potassium 5.8 H Chloride Carbon Dioxide BUN 48 H Creatinine 2.1 H Glucose 293 H POC Glucose 264 H Calcium 7.5 L AST ALT C-Reactive Protein Total Protein Albumin Triglycerides Ur Specific [place] Urine WBC (Auto) Urine Creatinine Urine Total Protein Lymph Enumerat CD4/CD8 % CD3 Cells Absolute CD3 Count % CD4 Cells Absolute CD4 Count % CD8 Cells Absolute CD8 Count Absolute CD19 Count HIV DNA Qual (PCR) HIV-1 RNA PCR copies/ml HIV-1 RNA (PCR) log Miscellaneous Test Crossmatch 06/25/18 06/25/18 06/26/18 21:20 23:59 05:10 WBC RBC Hgb Hct MCV RDW Plt Count Seg Neuts % (Manual) Lymphocytes % (Manual) Seg Neutrophils # Man Abs Lymphs (Manual) Lymphocytes # (Manual) PT INR D-Dimer POC ABG pH 7.220 L POC ABG pCO2 65.0 H POC ABG pO2 71 L Sodium Potassium Chloride Carbon Dioxide BUN Creatinine Glucose POC Glucose 231 H 259 H Calcium AST ALT C-Reactive Protein Total Protein Albumin Triglycerides Ur Specific [place] Urine WBC (Auto) Urine Creatinine Urine Total Protein Lymph Enumerat CD4/CD8 % CD3 Cells Absolute CD3 Count % CD4 Cells Absolute CD4 Count % CD8 Cells Absolute CD8 Count Absolute CD19 Count HIV DNA Qual (PCR) HIV-1 RNA PCR copies/ml HIV-1 RNA (PCR) log Miscellaneous Test Crossmatch 06/26/18 06/26/18 06/26/18 05:29 07:25 07:25 WBC 12.0 H RBC 2.69 L Hgb 8.2 L Hct 25.5 L MCV 95 H RDW 15.7 H Plt Count Seg Neuts % (Manual) Lymphocytes % (Manual) Seg Neutrophils # Man Abs Lymphs (Manual) Lymphocytes # (Manual) PT INR D-Dimer POC ABG pH 7.240 L POC ABG pCO2 67.6 H POC ABG pO2 106 H Sodium Potassium 5.2 H Chloride Carbon Dioxide BUN 58 H Creatinine 1.9 H Glucose 219 H POC Glucose Calcium 7.9 L AST ALT C-Reactive Protein Total Protein Albumin Triglycerides Ur Specific [place] Urine WBC (Auto) Urine Creatinine Urine Total Protein Lymph Enumerat CD4/CD8 % CD3 Cells Absolute CD3 Count % CD4 Cells Absolute CD4 Count % CD8 Cells Absolute CD8 Count Absolute CD19 Count HIV DNA Qual (PCR) HIV-1 RNA PCR copies/ml HIV-1 RNA (PCR) log Miscellaneous Test Crossmatch 06/26/18 06/26/18 06/26/18 07:25 12:49 17:42 WBC RBC Hgb Hct MCV RDW Plt Count Seg Neuts % (Manual) Lymphocytes % (Manual) Seg Neutrophils # Man Abs Lymphs (Manual) Lymphocytes # (Manual) PT INR D-Dimer POC ABG pH 7.178 L POC ABG pCO2 73.6 H POC ABG pO2 77 L Sodium Potassium Chloride Carbon Dioxide BUN Creatinine Glucose POC Glucose 276 H Calcium AST ALT C-Reactive Protein Total Protein Albumin Triglycerides 174 H Ur Specific [place] Urine WBC (Auto) Urine Creatinine Urine Total Protein Lymph Enumerat CD4/CD8 % CD3 Cells Absolute CD3 Count % CD4 Cells Absolute CD4 Count % CD8 Cells Absolute CD8 Count Absolute CD19 Count HIV DNA Qual (PCR) HIV-1 RNA PCR copies/ml HIV-1 RNA (PCR) log Miscellaneous Test Crossmatch 06/26/18 06/26/18 06/26/18 18:25 21:24 23:22 WBC RBC Hgb Hct MCV RDW Plt Count Seg Neuts % (Manual) Lymphocytes % (Manual) Seg Neutrophils # Man Abs Lymphs (Manual) Lymphocytes # (Manual) PT INR D-Dimer POC ABG pH 7.152 L POC ABG pCO2 80.6 H POC ABG pO2 Sodium Potassium Chloride Carbon Dioxide BUN Creatinine Glucose POC Glucose 304 H 282 H Calcium AST ALT C-Reactive Protein Total Protein Albumin Triglycerides Ur Specific [place] Urine WBC (Auto) Urine Creatinine Urine Total Protein Lymph Enumerat CD4/CD8 % CD3 Cells Absolute CD3 Count % CD4 Cells Absolute CD4 Count % CD8 Cells Absolute CD8 Count Absolute CD19 Count HIV DNA Qual (PCR) HIV-1 RNA PCR copies/ml HIV-1 RNA (PCR) log Miscellaneous Test Crossmatch 06/27/18 06/27/18 06/27/18 04:05 05:15 05:15 WBC RBC Hgb Hct MCV RDW Plt Count Seg Neuts % (Manual) Lymphocytes % (Manual) Seg Neutrophils # Man Abs Lymphs (Manual) Lymphocytes # (Manual) PT INR D-Dimer POC ABG pH 7.266 L POC ABG pCO2 62.8 H POC ABG pO2 Sodium Potassium 5.5 H Chloride Carbon Dioxide BUN 73 H Creatinine 2.1 H Glucose 211 H POC Glucose Calcium 7.7 L AST ALT C-Reactive Protein Total Protein Albumin Triglycerides Ur Specific [place] Urine WBC (Auto) Urine Creatinine Urine Total Protein Lymph Enumerat CD4/CD8 % CD3 Cells Absolute CD3 Count % CD4 Cells Absolute CD4 Count % CD8 Cells Absolute CD8 Count Absolute CD19 Count HIV DNA Qual (PCR) HIV-1 RNA PCR copies/ml HIV-1 RNA (PCR) log Miscellaneous Test Flexitest 1 H Crossmatch 06/27/18 06/27/18 06/27/18 05:15 05:52 13:10 WBC RBC 2.41 L Hgb 7.6 L Hct 22.4 L MCV RDW Plt Count Seg Neuts % (Manual) Lymphocytes % (Manual) Seg Neutrophils # Man Abs Lymphs (Manual) Lymphocytes # (Manual) PT INR D-Dimer POC ABG pH POC ABG pCO2 POC ABG pO2 Sodium Potassium Chloride Carbon Dioxide BUN Creatinine Glucose POC Glucose 198 H 238 H Calcium AST ALT C-Reactive Protein Total Protein Albumin Triglycerides Ur Specific [place] Urine WBC (Auto) Urine Creatinine Urine Total Protein Lymph Enumerat CD4/CD8 % CD3 Cells Absolute CD3 Count % CD4 Cells Absolute CD4 Count % CD8 Cells Absolute CD8 Count Absolute CD19 Count HIV DNA Qual (PCR) HIV-1 RNA PCR copies/ml HIV-1 RNA (PCR) log Miscellaneous Test Crossmatch 06/27/18 06/27/18 06/27/18 16:12 17:51 23:22 WBC RBC Hgb Hct MCV RDW Plt Count Seg Neuts % (Manual) Lymphocytes % (Manual) Seg Neutrophils # Man Abs Lymphs (Manual) Lymphocytes # (Manual) PT INR D-Dimer POC ABG pH POC ABG pCO2 POC ABG pO2 Sodium Potassium Chloride Carbon Dioxide BUN Creatinine Glucose POC Glucose 174 H 162 H 171 H Calcium AST ALT C-Reactive Protein Total Protein Albumin Triglycerides Ur Specific [place] Urine WBC (Auto) Urine Creatinine Urine Total Protein Lymph Enumerat CD4/CD8 % CD3 Cells Absolute CD3 Count % CD4 Cells Absolute CD4 Count % CD8 Cells Absolute CD8 Count Absolute CD19 Count HIV DNA Qual (PCR) HIV-1 RNA PCR copies/ml HIV-1 RNA (PCR) log Miscellaneous Test Crossmatch 06/28/18 06/28/18 06/28/18 04:36 04:54 05:10 WBC RBC Hgb Hct MCV RDW Plt Count Seg Neuts % (Manual) Lymphocytes % (Manual) Seg Neutrophils # Man Abs Lymphs (Manual) Lymphocytes # (Manual) PT INR D-Dimer POC ABG pH 7.257 L POC ABG pCO2 68.8 H POC ABG pO2 Sodium Potassium Chloride Carbon Dioxide BUN 93 H Creatinine 2.4 H Glucose 186 H POC Glucose 193 H Calcium 8.3 L AST ALT C-Reactive Protein Total Protein Albumin Triglycerides Ur Specific [place] Urine WBC (Auto) Urine Creatinine Urine Total Protein Lymph Enumerat CD4/CD8 % CD3 Cells Absolute CD3 Count % CD4 Cells Absolute CD4 Count % CD8 Cells Absolute CD8 Count Absolute CD19 Count HIV DNA Qual (PCR) HIV-1 RNA PCR copies/ml HIV-1 RNA (PCR) log Miscellaneous Test Crossmatch 06/28/18 06/28/18 06/28/18 12:15 17:43 18:26 WBC RBC Hgb Hct MCV RDW Plt Count Seg Neuts % (Manual) Lymphocytes % (Manual) Seg Neutrophils # Man Abs Lymphs (Manual) Lymphocytes # (Manual) PT INR D-Dimer POC ABG pH 7.123 L POC ABG pCO2 82.7 H POC ABG pO2 Sodium Potassium Chloride Carbon Dioxide BUN Creatinine Glucose POC Glucose 154 H 194 H Calcium AST ALT C-Reactive Protein Total Protein Albumin Triglycerides Ur Specific [place] Urine WBC (Auto) Urine Creatinine Urine Total Protein Lymph Enumerat CD4/CD8 % CD3 Cells Absolute CD3 Count % CD4 Cells Absolute CD4 Count % CD8 Cells Absolute CD8 Count Absolute CD19 Count HIV DNA Qual (PCR) HIV-1 RNA PCR copies/ml HIV-1 RNA (PCR) log Miscellaneous Test Crossmatch 06/28/18 06/29/18 06/29/18 22:08 00:12 04:38 WBC RBC Hgb Hct MCV RDW Plt Count Seg Neuts % (Manual) Lymphocytes % (Manual) Seg Neutrophils # Man Abs Lymphs (Manual) Lymphocytes # (Manual) PT INR D-Dimer POC ABG pH 7.172 L 7.158 L POC ABG pCO2 80.4 H 76.6 H POC ABG pO2 143 H Sodium Potassium Chloride Carbon Dioxide BUN Creatinine Glucose POC Glucose 202 H Calcium AST ALT C-Reactive Protein Total Protein Albumin Triglycerides Ur Specific [place] Urine WBC (Auto) Urine Creatinine Urine Total Protein Lymph Enumerat CD4/CD8 % CD3 Cells Absolute CD3 Count % CD4 Cells Absolute CD4 Count % CD8 Cells Absolute CD8 Count Absolute CD19 Count HIV DNA Qual (PCR) HIV-1 RNA PCR copies/ml HIV-1 RNA (PCR) log Miscellaneous Test Crossmatch 06/29/18 06/29/18 06/29/18 05:15 05:15 05:32 WBC 12.3 H RBC 1.93 L Hgb 5.9 L* Hct 18.2 L* MCV 95 H RDW Plt Count 127 L Seg Neuts % (Manual) Lymphocytes % (Manual) Seg Neutrophils # Man Abs Lymphs (Manual) Lymphocytes # (Manual) PT INR D-Dimer POC ABG pH POC ABG pCO2 POC ABG pO2 Sodium 136 L Potassium 5.9 H Chloride 94.3 L Carbon Dioxide BUN 139 H Creatinine 4.2 H D Glucose 157 H POC Glucose 150 H Calcium 8.2 L AST ALT C-Reactive Protein Total Protein Albumin Triglycerides Ur Specific [place] Urine WBC (Auto) Urine Creatinine Urine Total Protein Lymph Enumerat CD4/CD8 % CD3 Cells Absolute CD3 Count % CD4 Cells Absolute CD4 Count % CD8 Cells Absolute CD8 Count Absolute CD19 Count HIV DNA Qual (PCR) HIV-1 RNA PCR copies/ml HIV-1 RNA (PCR) log Miscellaneous Test Crossmatch 06/29/18 06/29/18 06/29/18 08:07 09:50 11:55 WBC RBC Hgb 6.0 L Hct 18.4 L* MCV RDW Plt Count Seg Neuts % (Manual) Lymphocytes % (Manual) Seg Neutrophils # Man Abs Lymphs (Manual) Lymphocytes # (Manual) PT INR D-Dimer POC ABG pH POC ABG pCO2 POC ABG pO2 Sodium Potassium Chloride Carbon Dioxide BUN Creatinine Glucose POC Glucose 236 H Calcium AST ALT C-Reactive Protein Total Protein Albumin Triglycerides Ur Specific [place] Urine WBC (Auto) Urine Creatinine Urine Total Protein Lymph Enumerat CD4/CD8 % CD3 Cells Absolute CD3 Count % CD4 Cells Absolute CD4 Count % CD8 Cells Absolute CD8 Count Absolute CD19 Count HIV DNA Qual (PCR) HIV-1 RNA PCR copies/ml HIV-1 RNA (PCR) log Miscellaneous Test Crossmatch See Detail 06/29/18 06/30/18 06/30/18 18:29 00:08 04:47 WBC RBC Hgb Hct MCV RDW Plt Count Seg Neuts % (Manual) Lymphocytes % (Manual) Seg Neutrophils # Man Abs Lymphs (Manual) Lymphocytes # (Manual) PT INR D-Dimer POC ABG pH 7.182 L POC ABG pCO2 67.7 H POC ABG pO2 Sodium Potassium Chloride Carbon Dioxide BUN Creatinine Glucose POC Glucose 171 H 159 H Calcium AST ALT C-Reactive Protein Total Protein Albumin Triglycerides Ur Specific [place] Urine WBC (Auto) Urine Creatinine Urine Total Protein Lymph Enumerat CD4/CD8 % CD3 Cells Absolute CD3 Count % CD4 Cells Absolute CD4 Count % CD8 Cells Absolute CD8 Count Absolute CD19 Count HIV DNA Qual (PCR) HIV-1 RNA PCR copies/ml HIV-1 RNA (PCR) log Miscellaneous Test Crossmatch 06/30/18 06/30/18 06/30/18 05:07 06:00 12:43 WBC 18.2 H RBC 2.43 L Hgb 7.4 L Hct 22.0 L MCV RDW 15.3 H Plt Count 111 L Seg Neuts % (Manual) Lymphocytes % (Manual) Seg Neutrophils # Man Abs Lymphs (Manual) Lymphocytes # (Manual) PT INR D-Dimer POC ABG pH POC ABG pCO2 POC ABG pO2 Sodium Potassium Chloride Carbon Dioxide BUN Creatinine Glucose POC Glucose 162 H 153 H Calcium AST ALT C-Reactive Protein Total Protein Albumin Triglycerides Ur Specific [place] Urine WBC (Auto) Urine Creatinine Urine Total Protein Lymph Enumerat CD4/CD8 % CD3 Cells Absolute CD3 Count % CD4 Cells Absolute CD4 Count % CD8 Cells Absolute CD8 Count Absolute CD19 Count HIV DNA Qual (PCR) HIV-1 RNA PCR copies/ml HIV-1 RNA (PCR) log Miscellaneous Test Crossmatch 06/30/18 06/30/18 07/01/18 18:07 Unknown 00:06 WBC RBC Hgb Hct MCV RDW Plt Count Seg Neuts % (Manual) Lymphocytes % (Manual) Seg Neutrophils # Man Abs Lymphs (Manual) Lymphocytes # (Manual) PT INR D-Dimer POC ABG pH POC ABG pCO2 POC ABG pO2 Sodium Potassium 5.9 H Chloride 95.5 L Carbon Dioxide BUN 164 H Creatinine 5.2 H Glucose 151 H POC Glucose 183 H 208 H Calcium 7.6 L AST ALT C-Reactive Protein Total Protein Albumin Triglycerides 223 H Ur Specific [place] Urine WBC (Auto) Urine Creatinine Urine Total Protein Lymph Enumerat CD4/CD8 % CD3 Cells Absolute CD3 Count % CD4 Cells Absolute CD4 Count % CD8 Cells Absolute CD8 Count Absolute CD19 Count HIV DNA Qual (PCR) HIV-1 RNA PCR copies/ml HIV-1 RNA (PCR) log Miscellaneous Test Crossmatch 07/01/18 07/01/18 07/01/18 04:47 05:43 06:00 WBC RBC Hgb Hct MCV RDW Plt Count Seg Neuts % (Manual) Lymphocytes % (Manual) Seg Neutrophils # Man Abs Lymphs (Manual) Lymphocytes # (Manual) PT INR D-Dimer POC ABG pH 7.060 L POC ABG pCO2 121.0 H POC ABG pO2 Sodium Potassium 5.8 H Chloride 94.1 L Carbon Dioxide BUN 144 H Creatinine 3.1 H Glucose 208 H POC Glucose 214 H Calcium 6.7 L AST ALT C-Reactive Protein Total Protein Albumin Triglycerides Ur Specific [place] Urine WBC (Auto) Urine Creatinine Urine Total Protein Lymph Enumerat CD4/CD8 % CD3 Cells Absolute CD3 Count % CD4 Cells Absolute CD4 Count % CD8 Cells Absolute CD8 Count Absolute CD19 Count HIV DNA Qual (PCR) HIV-1 RNA PCR copies/ml HIV-1 RNA (PCR) log Miscellaneous Test Crossmatch 07/01/18 07/01/18 07/01/18 06:00 06:52 10:00 WBC 17.9 H RBC 2.14 L Hgb 6.5 L 6.6 L Hct 20.0 L 20.5 L MCV RDW 15.9 H Plt Count 94 L Seg Neuts % (Manual) Lymphocytes % (Manual) Seg Neutrophils # Man Abs Lymphs (Manual) Lymphocytes # (Manual) PT INR D-Dimer 2387.14 H POC ABG pH POC ABG pCO2 POC ABG pO2 Sodium Potassium Chloride Carbon Dioxide BUN Creatinine Glucose POC Glucose Calcium AST ALT C-Reactive Protein Total Protein Albumin Triglycerides Ur Specific [place] Urine WBC (Auto) Urine Creatinine Urine Total Protein Lymph Enumerat CD4/CD8 % CD3 Cells Absolute CD3 Count % CD4 Cells Absolute CD4 Count % CD8 Cells Absolute CD8 Count Absolute CD19 Count HIV DNA Qual (PCR) HIV-1 RNA PCR copies/ml HIV-1 RNA (PCR) log Miscellaneous Test Crossmatch 07/01/18 07/01/18 07/01/18 11:11 11:41 18:38 WBC RBC Hgb Hct MCV RDW Plt Count Seg Neuts % (Manual) Lymphocytes % (Manual) Seg Neutrophils # Man Abs Lymphs (Manual) Lymphocytes # (Manual) PT INR D-Dimer POC ABG pH 7.151 L 7.168 L POC ABG pCO2 100.4 H 109.4 H POC ABG pO2 151 H 199 H Sodium Potassium Chloride Carbon Dioxide BUN Creatinine Glucose POC Glucose 213 H Calcium AST ALT C-Reactive Protein Total Protein Albumin Triglycerides Ur Specific [place] Urine WBC (Auto) Urine Creatinine Urine Total Protein Lymph Enumerat CD4/CD8 % CD3 Cells Absolute CD3 Count % CD4 Cells Absolute CD4 Count % CD8 Cells Absolute CD8 Count Absolute CD19 Count HIV DNA Qual (PCR) HIV-1 RNA PCR copies/ml HIV-1 RNA (PCR) log Miscellaneous Test Crossmatch 07/01/18 07/02/18 07/02/18 23:40 04:32 04:32 WBC 14.8 H RBC 2.68 L Hgb 8.1 L Hct 23.8 L MCV RDW Plt Count 81 L Seg Neuts % (Manual) Lymphocytes % (Manual) Seg Neutrophils # Man Abs Lymphs (Manual) Lymphocytes # (Manual) PT INR D-Dimer POC ABG pH POC ABG pCO2 POC ABG pO2 Sodium 151 H D Potassium 3.1 L D Chloride Carbon Dioxide 39 H D BUN 108 H Creatinine 1.8 H Glucose 44 L POC Glucose < 40 L Calcium 6.6 L AST ALT C-Reactive Protein Total Protein Albumin Triglycerides Ur Specific [place] Urine WBC (Auto) Urine Creatinine Urine Total Protein Lymph Enumerat CD4/CD8 % CD3 Cells Absolute CD3 Count % CD4 Cells Absolute CD4 Count % CD8 Cells Absolute CD8 Count Absolute CD19 Count HIV DNA Qual (PCR) HIV-1 RNA PCR copies/ml HIV-1 RNA (PCR) log Miscellaneous Test Crossmatch 07/02/18 07/02/18 05:00 05:12 WBC RBC Hgb Hct MCV RDW Plt Count Seg Neuts % (Manual) Lymphocytes % (Manual) Seg Neutrophils # Man Abs Lymphs (Manual) Lymphocytes # (Manual) PT INR D-Dimer POC ABG pH 7.319 L POC ABG pCO2 89.8 H POC ABG pO2 119 H Sodium Potassium Chloride Carbon Dioxide BUN Creatinine Glucose POC Glucose < 40 L Calcium AST ALT C-Reactive Protein Total Protein Albumin Triglycerides Ur Specific [place] Urine WBC (Auto) Urine Creatinine Urine Total Protein Lymph Enumerat CD4/CD8 % CD3 Cells Absolute CD3 Count % CD4 Cells Absolute CD4 Count % CD8 Cells Absolute CD8 Count Absolute CD19 Count HIV DNA Qual (PCR) HIV-1 RNA PCR copies/ml HIV-1 RNA (PCR) log Miscellaneous Test Crossmatch Allied health notes reviewed: nursing
--- NOTE | 2018-07-02 09:55 | Event Note ---
Date: 07/02/18 Based upon previous note would consider repeating venous duplex to eval for clot propagation (and possible IVC filter). Other service's recent notes reviewed. Prognosis reported as poor, and recommendation to consider hospice noted. Will hold off on repeating venous duplex for now. If condition improves, or family does not elected to switch to paliative care then recommend repeating venous duplex and evaluating for clot propagation. If clot has propagated then IVC filter could be considered.
[2018-07-02] MEDS ORDERED: NACL 0.9% IV SCH (10:00)
[2018-07-02] MEDS ORDERED: CYTOVENE IV SCH (10:00)
[2018-07-02] MEDS: D5W IV SCH ×2 (10:10→10:32)
[2018-07-02] MEDS: ABELCET IV SCH (10:10)
[2018-07-02] MEDS: BACTRIM IV SCH (10:32)
[2018-07-02] MEDS: ZITHROMAX PO SCH (10:42)
[2018-07-02] MEDS: PROTONIX IV SCH (10:42)
[2018-07-02] MEDS: SOLU-Medrol IV SCH ×2 (10:42→21:38)
--- NOTE | 2018-07-02 10:48 | Progress Note ---
Assessment and Plan - Patient Problems (1) Acute tubular necrosis Current Visit: Yes Status: Acute Plan to address problem: Kidney injury acute tubular necrosis of multifactorial etiology secondary to contrast exposure, septic shock, medications including voriconazole/Bactrim. Pt is now in recovery phase of ATN, kidney indices improving with increased UOP. metabolic acidosis improved, will d/c bicarb gtt. Cont supportive care for ATN, cont vasopressor support to maintain MAP 65mmHg, avoid further nephrotoxins, NSAIDs, IV contrast. (2) AIDS (acquired immune deficiency syndrome) Current Visit: Yes Status: Acute Plan to address problem: Continue management by infectious disease consultants (3) Hyperkalemia Current Visit: Yes Status: Acute Plan to address problem: severe combined respiratory and metabolic acidosis contributing to persistent hyperkalemia. improved with correction of acidosis. bicarb gtt d/tiffany. (4) Acute respiratory failure with hypoxia Current Visit: Yes Status: Acute Plan to address problem: Ventilator management by pulmonary (5) Bilateral pneumonia Current Visit: Yes Status: Acute Qualifiers: Pneumonia type: due to unspecified organism Lung location: unspecified part of lung Qualified Code(s): J18.9 - Pneumonia, unspecified organism Plan to address problem: Continue antibiotics per infectious disease artist consultant (6) Anemia Current Visit: Yes Status: Acute Plan to address problem: Being managed by dinkey operator Subjective Date of service: 07/02/18 Principal diagnosis: Acute Hypoxemic Resp Failure; AIDS / HIV positive; Severe Sepsis due to PNA Interval history: pt remains intubated, sedated. on vasopressor support with levophed. improving renal function noted with excellent UOP Objective - Vital Signs Vital signs: Vital Signs - 12hr 07/01/18 07/01/18 07/01/18 23:01 23:15 23:17 Temperature 98.5 F Pulse Rate 103 H 97 H Pulse Rate [ Anterior Bilateral Throughout] Pulse Rate [ Apical] Pulse Rate [ Bilateral] Pulse Rate [ From Monitor] Respiratory 33 H 30 H Rate Respiratory Rate [Anterior Bilateral Throughout] Respiratory Rate [Bilateral ] Blood Pressure 140/73 145/74 O2 Sat by Pulse 99 100 Oximetry 07/01/18 07/02/18 07/02/18 23:29 00:00 00:01 Temperature Pulse Rate 106 H 102 H Pulse Rate [ Anterior Bilateral Throughout] Pulse Rate [ 104 H Apical] Pulse Rate [ Bilateral] Pulse Rate [ 104 H From Monitor] Respiratory 19 21 Rate Respiratory Rate [Anterior Bilateral Throughout] Respiratory Rate [Bilateral ] Blood Pressure 140/76 136/74 O2 Sat by Pulse 100 98 98 Oximetry 07/02/18 07/02/18 07/02/18 01:01 02:00 02:21 Temperature Pulse Rate 110 H 105 H 105 H Pulse Rate [ Anterior Bilateral Throughout] Pulse Rate [ Apical] Pulse Rate [ Bilateral] Pulse Rate [ From Monitor] Respiratory 16 21 Rate Respiratory Rate [Anterior Bilateral Throughout] Respiratory Rate [Bilateral ] Blood Pressure 138/74 124/73 125/74 O2 Sat by Pulse 98 98 100 Oximetry 07/02/18 07/02/18 07/02/18 03:01 03:31 04:00 Temperature 98.7 F Pulse Rate 106 H 102 H Pulse Rate [ Anterior Bilateral Throughout] Pulse Rate [ 104 H Apical] Pulse Rate [ Bilateral] Pulse Rate [ 107 H From Monitor] Respiratory 16 24 Rate Respiratory Rate [Anterior Bilateral Throughout] Respiratory Rate [Bilateral ] Blood Pressure 125/74 137/77 O2 Sat by Pulse 98 100 Oximetry 07/02/18 07/02/18 07/02/18 04:01 05:00 05:01 Temperature Pulse Rate 100 H 105 H Pulse Rate [ Anterior Bilateral Throughout] Pulse Rate [ Apical] Pulse Rate [ 97 H Bilateral] Pulse Rate [ From Monitor] Respiratory 19 24 Rate Respiratory Rate [Anterior Bilateral Throughout] Respiratory 30 H Rate [Bilateral ] Blood Pressure 161/55 148/74 O2 Sat by Pulse 97 98 Oximetry 07/02/18 07/02/18 07/02/18 05:19 06:01 07:01 Temperature Pulse Rate 104 H 98 H Pulse Rate [ Anterior Bilateral Throughout] Pulse Rate [ Apical] Pulse Rate [ Bilateral] Pulse Rate [ From Monitor] Respiratory 25 H 15 Rate Respiratory Rate [Anterior Bilateral Throughout] Respiratory Rate [Bilateral ] Blood Pressure 152/77 121/73 O2 Sat by Pulse 100 97 97 Oximetry 07/02/18 07/02/18 07/02/18 07:19 07:22 08:00 Temperature 99.3 F Pulse Rate 110 H Pulse Rate [ 105 H Anterior Bilateral Throughout] Pulse Rate [ 109 H Apical] Pulse Rate [ 106 H Bilateral] Pulse Rate [ 107 H From Monitor] Respiratory 29 H Rate Respiratory 30 H Rate [Anterior Bilateral Throughout] Respiratory 30 H Rate [Bilateral ] Blood Pressure 145/73 O2 Sat by Pulse 97 98 Oximetry 07/02/18 08:01 Temperature Pulse Rate 104 H Pulse Rate [ Anterior Bilateral Throughout] Pulse Rate [ Apical] Pulse Rate [ Bilateral] Pulse Rate [ From Monitor] Respiratory 22 Rate Respiratory Rate [Anterior Bilateral Throughout] Respiratory Rate [Bilateral ] Blood Pressure 149/75 O2 Sat by Pulse 98 Oximetry - General Appearance General appearance: chronically ill, sedated on ventilator, intubated EENT: ATNC, mucous membranes moist Neck: no JVD Respiratory: Present: Decreased Breath Sounds Cardiology: regular, S1S2 Gastrointestinal: normoactive bowel sounds Integumentary: no rash, other (2+ b/l LE edema ) Neurologic: other (intubated, sedated ) Psychiatric: mood/affect appropriate, cooperative - Lab 07/02/18 04:32 07/02/18 04:32 Most recent lab results Calcium 6.6 mg/dL (8.4-10.2) L 07/02/18 04:32 Urine Creatinine 47.2 mg/dL (0.1-20.0) H 06/24/18 22:45 Urine Sodium 40 mmol/L 06/24/18 22:45 Urine Total Protein 25 mg/dL (5-11.8) H 06/24/18 22:45 Medications & Allergies - Medications Allergies/Adverse Reactions: Allergies No Known Allergies Allergy (Verified 06/19/18 06:10) Home Medications: Home Medications Medication Instructions Recorded Confirmed Last Taken Type ALBUTEROL Inhaler (OR & NICU) 2 puff IH QID PRN 06/19/18 06/19/18 Unknown History [Proair] Pantoprazole [Protonix] 40 mg PO QDAY 06/19/18 06/19/18 Unknown History levoFLOXacin [Levaquin TAB] 500 mg PO QDAY 06/19/18 06/19/18 Unknown History Active Medications: Generic Name Dose Route Start Last Admin Trade Name Freq PRN Reason Stop Dose Admin Acetaminophen 650 mg 06/19/18 06:30 06/30/18 01:49 Tylenol PO 650 mg Q4H PRN Administration Pain MILD(1-3)/Fever >100.5/[place] Albuterol/Ipratropium 1 ampul 06/26/18 14:00 07/02/18 07:19 Duoneb *Not For Prn Use* IH 1 ampul Q6HRT [place] Administration Lipase/Protease/Amylase 1 each 06/19/18 16:[address] 10,500 Unit FEEDTUBE PRN PRN For Clogged Feeding Tube Azithromycin 1,200 mg 06/25/18 11:00 07/02/18 10:42 Zithromax PO 1,200 mg Mo [place] Administration Fentanyl 50 mcg 06/19/18 06:00 06/30/18 21:56 Sublimaze IV 50 mcg Q10MIN PRN Administration ANALGESIA Hydrophilic Ointment 1 applic 06/19/18 06:00 Vaseline Lip Therapy TP Q2HR PRN Dry Lips Fentanyl Citrate 2,000 mcg in 100 mls @ 3.86 mls/hr 06/19/18 06:00 07/02/18 08:32 Fentanyl Drip Premix IV 3 mcg/kg/hr TITR [place] 11.581 mls/hr Administration Protocol 1 MCG/KG/HR Norepinephrine 4 mg in 250 mls @ 7.5 mls/hr 06/19/18 15:00 07/02/18 09:50 Levophed Drip 4 Mg/Ns 250 Ml IV 0 mcg/min TITR [place] 0 mls/hr Titration Protocol 2 MCG/MIN Propofol 1,000 mg in 100 mls @ 2.601 mls/hr 06/24/18 15:00 07/02/18 00:40 Diprivan 10 Mg/Ml IV 25 mcg/kg/min TITR [place] 13.005 mls/hr Administration Protocol 5 MCG/KG/MIN Dextrose 500 mls @ 5 mls/hr 06/25/18 08:56 06/28/18 11:07 D5w IV 5 mls/hr PRN PRN Administration FLUSH BEFORE AND AFTER AMPHO B Trimethoprim/Sulfamethoxazole 275 mls @ 350 mls/hr 06/29/18 10:00 07/01/18 10:27 400 mg/ Dextrose IV 250 mls/hr DAILY [place] Administration Protocol Amphotericin B 250 mg/ 550 mls @ 250 mls/hr 06/30/18 10:00 06/30/18 10:00 Dextrose IV 250 mls/hr Q48HR [place] Administration Ganciclovir Sodium 120 mg/ 250 mls @ 100 mls/hr 07/02/18 10:00 07/02/18 10:42 Sodium Chloride IV 100 mls/hr MoWeFr [place] Administration Vasopressin 20 unit/ Sodium 101 mls @ 9.09 mls/hr 06/29/18 23:00 07/02/18 08:15 Chloride IV 0.03 units/min TITR [place] 9.09 mls/hr Administration Protocol 0.03 UNITS/MIN Insulin Human Lispro 0 unit 06/20/18 13:00 07/02/18 05:53 Humalog SUB-Q Not Given Q6HR [facility] Protocol Methylprednisolone Sodium Succinate 40 mg 06/19/18 22:00 07/02/18 10:42 Solu-Medrol IV 40 mg Q12HR [place] Administration Multi-Ingred Cream/Lotion/Oil/Oint 1 applic 06/19/18 06:00 Artificial Tears Ophth Oint OU Q4HR PRN Dry Eye(s) Ondansetron HCl 4 mg 06/19/18 06:30 06/30/18 21:55 Zofran IV 4 mg Q8H PRN Administration Nausea And Vomiting Pantoprazole Sodium 40 mg 07/01/18 11:00 07/02/18 10:42 Protonix IV 40 mg QDAY [facility] Administration Phenylephrine HCl 2 spray 06/24/18 06:07 06/25/18 05:35 Thompson-Synephrine NS 2 spray Q4H PRN Administration Congestion Simple Syrup 15 ml 06/19/18 16:02 Simple Syrup FEEDTUBE PRN PRN Hypoglycemia Simple Syrup 30 ml 06/19/18 16:02 Simple Syrup FEEDTUBE PRN PRN Hypoglycemia Sodium Bicarbonate 325 mg 06/19/18 16:02 Sodium Bicarbonate FEEDTUBE PRN PRN For Clogged Feeding Tube Sodium Chloride 10 ml 06/19/18 10:00 07/02/18 05:53 Sodium Chloride Flush Syringe 10 Ml IV Not Given BID [place] Sodium Chloride 10 ml 06/19/18 06:30 Sodium Chloride Flush Syringe 10 Ml IV PRN PRN LINE FLUSH
[2018-07-02] MEDS ORDERED: PANCREAZE DR 10,500 UNIT FEEDTUBE PRN (11:39)
[2018-07-02] MEDS ORDERED: SODIUM BICARBONATE FEEDTUBE PRN (11:39)
[2018-07-02] MEDS ORDERED: SIMPLE SYRUP FEEDTUBE PRN ×2 (11:39)
[2018-07-02] MEDS ORDERED: D50W (25GM) Syringe IV PRN ×2 (11:53→15:00)
[2018-07-02] MEDS ORDERED: D50W (25GM) Syringe IV ONE (11:58)
--- NOTE | 2018-07-02 12:01 | Progress Note ---
Assessment and Plan Cultures: 06/19/2018 blood culture: no growth 06/19/2018 tracheal aspirate: usual resp david/ Rothia mucilaginosa 06/19/2018 fungal blood culture: no growth 06/20/2018 Serum CrAg: negative Cytology PJP stain negative GMS stain showed septated fungal hyphae with acute angle branching and yeast forms c/w Aspergillus, Fusarium, Scedosporium and other Dematiaceous fungi. DFA showed rare PJP CMV DNA PCR 06/19/2018 13,166 BAL 06/25/2018 Tigist albicans A/P: 32/M with: #1 Bilateral pneumonia: Extensive bilateral ground glass opacities and pneumonia with severe hypoxia. Unclear etiology ? PJP versus invasive fungal versus disseminated CMV. 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 Lung cytology GMS stain showed septated fungal hyphae with acute angle branching and yeast forms c/w Aspergillus, Fusarium, Scedosporium and other Dematiaceous fungi. 06/19/2018 tracheal aspirate showed usual resp david/ Rothia mucilaginosa. 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 patient has been on bactrim IV for 5 days and IV voriconazole for 4 days witouht any improvement on vent setting still at FiO2 70% p12. - S/P bronch/BAL - pending - s/p voriconazole x 4 days - no improvement, stopped on 06/25 - on amphothericin started on 06/25 - Serum CMV DNA PCR 06/19/2018 13,166 - BAL 06/25/2018 Tigist albicans likely a colonizer, AFB negative. - completed vancomycin renally dosed to cover Rothia D5 on 06/28 - Aspregillus ag negative #2 Acute respiratory failure: Requiring mechanical ventilation.Improving FIo2 70% -->60--> 50 --> 60% p 15 -->12 #3 HIV, likely AIDS:CD4=10 / VL 1,300,000 copies #4 Sepsis: Likely secondary to above. #5 JENNIFER: better today, all renally adjusted #6 Sepsis with septic shock: still ow grade fever, off levophed, still on vasopressine; likely from above #7 Epistaxis on 06/24/2018 s/p packing, resolved Recs: check toxo Igg f/u repeat blood culturev per renal he is responding well to IV lasix with increasing UOP, kidney indices improving. 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 Extensive discussion with aunt, uncle and cousin about prognosis. Patient with no history of ETOH, drugs, tob, has 2 cats and 2 dogs, per family since his suddenly in March 2018 he was deppressed and fighting a dry cough for 3 months. He lost 30L weight in 3 months. Family is unaware of HIV diagnosis, it was not disclosed. Will follow Keke Manzo MD Infectious Diseases Story Reader [facility] ([facility]) M [phone] O [phone] Subjective Date of service: 07/02/18 Principal diagnosis: Acute Hypoxemic Resp Failure; AIDS / HIV positive; Severe Sepsis due to PNA Interval history: Patient remains critically ill intubated on CMV FiO2 94%, p 8, Now off levophed, still vasopressin and Bicarb gtt, sedated on 1 sedative. Tmax 100.5 ROS unable to obtain Objective - Exam Narrative Exam: General appearance: sedated on the vent FIO2 94% p 8 Eyes: anicteric sclerae, moist conjunctivae; no lid-lag; PERRLA +conjunctivae edema shruthi HENT: Atraumatic; oropharynx +ETT. Neck: Trachea midline; supple, no thyromegaly or lymphadenopathy Lungs: shruthi rhonchi CV: tachycardic Abdomen: Soft, non-tender; no masses or hepatosplenomegaly Extremities: +shruthi arm edema / leg edema Skin: Normal temperature, turgor and texture; no rash, ulcers or subcutaneous nodules Psych: sedated. Neuro: sedated Rust Right IJ TLC - Constitutional Vitals: Vital Signs Temp Pulse Resp BP Pulse Ox 99.3 F 104 H 22 149/75 98 07/02/18 08:00 07/02/18 08:01 07/02/18 08:01 07/02/18 08:01 07/02/18 08:01 Temperature -Last 24 Hours Temperature 99.3 F Temperature 99.3 F Temperature 98.7 F Temperature 98.5 F Temperature 98.9 F Temperature 97.7 F Temperature 97.0 F Temperature 96.8 F Temperature 96.8 F Temperature 97.6 F Temperature 97.5 F Temperature 97.4 F Temperature 96.0 F Temperature 97.3 F Temperature 97.0 F - Labs CBC & Chem 7: 07/02/18 04:32 07/02/18 13:11 Labs: Abnormal lab results 06/29/18 07/01/18 07/01/18 Range/Units 09:50 11:41 18:38 WBC (4.5-11.0) K/mm3 RBC (3.65-5.03) M/mm3 Hgb (11.8-15.2) gm/dl Hct (35.5-45.6) % Plt Count (140-440) K/mm3 POC ABG pH 7.168 L (7.35-7.45) POC ABG pCO2 109.4 H (35-45) POC ABG pO2 199 H (80-105) Sodium (137-145) mmol/L Potassium (3.6-5.0) mmol/L Carbon Dioxide (22-30) mmol/L BUN (9-20) mg/dL Creatinine (0.8-1.5) mg/dL Glucose (75-100) mg/dL POC Glucose 213 H (70-105) Calcium (8.4-10.2) mg/dL Crossmatch See Detail 07/01/18 07/02/18 07/02/18 Range/Units 23:40 04:32 04:32 WBC 14.8 H (4.5-11.0) K/mm3 RBC 2.68 L (3.65-5.03) M/mm3 Hgb 8.1 L (11.8-15.2) gm/dl Hct 23.8 L (35.5-45.6) % Plt Count 81 L (140-440) K/mm3 POC ABG pH (7.35-7.45) POC ABG pCO2 (35-45) POC ABG pO2 (80-105) Sodium 151 H D (137-145) mmol/L Potassium 3.1 L D (3.6-5.0) mmol/L Carbon Dioxide 39 H D (22-30) mmol/L BUN 108 H (9-20) mg/dL Creatinine 1.8 H (0.8-1.5) mg/dL Glucose 44 L (75-100) mg/dL POC Glucose < 40 L (70-105) Calcium 6.6 L (8.4-10.2) mg/dL Crossmatch 07/02/18 07/02/18 Range/Units 05:00 05:12 WBC (4.5-11.0) K/mm3 RBC (3.65-5.03) M/mm3 Hgb (11.8-15.2) gm/dl Hct (35.5-45.6) % Plt Count (140-440) K/mm3 POC ABG pH 7.319 L (7.35-7.45) POC ABG pCO2 89.8 H (35-45) POC ABG pO2 119 H (80-105) Sodium (137-145) mmol/L Potassium (3.6-5.0) mmol/L Carbon Dioxide (22-30) mmol/L BUN (9-20) mg/dL Creatinine (0.8-1.5) mg/dL Glucose (75-100) mg/dL POC Glucose < 40 L (70-105) Calcium (8.4-10.2) mg/dL Crossmatch
--- NOTE | 2018-07-02 13:24 | Consultation ---
History of Present Illness - Reason for Consult Consult date: 07/02/18 - History of Present Illness Patient is 32-year-old man with hypertension comes emergency room with complaints of shortness of breath, cough for 3days. He was found to have extensive bilateral pneumonia, placed on BiPAP but he failed. The patient had to be intubated. 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 GROSS HEMATURIA INTUBATED VINCENT DRAINING PINK TINGED URINE A/P GROSS HEMATURIA CONSERVATIVE THERAPY Past History Past Medical History: HIV/AIDS, hypertension Past Surgical History: No surgical history, Other (unknown) Social history: other (unknown) Family history: other (unknown) Medications and Allergies Allergies Allergy/AdvReac Type Severity Reaction Status Date / Time No Known Allergies Allergy Verified 06/19/18 06:10 Home Medications Medication Instructions Recorded Confirmed Last Taken Type ALBUTEROL Inhaler (OR & NICU) 2 puff IH QID PRN 06/19/18 06/19/18 Unknown History [Proair] Pantoprazole [Protonix] 40 mg PO QDAY 06/19/18 06/19/18 Unknown History levoFLOXacin [Levaquin TAB] 500 mg PO QDAY 06/19/18 06/19/18 Unknown History Active Meds: Active Medications Acetaminophen (Tylenol) 650 mg PO Q4H PRN PRN Reason: Pain MILD(1-3)/Fever >100.5/[place] Last Admin: 06/30/18 01:49 Dose: 650 mg Documented by: Albuterol/Ipratropium (Duoneb *Not For Prn Use*) 1 ampul IH Q6HRT [facility] Last Admin: 07/02/18 07:19 Dose: 1 ampul Documented by: Lipase/Protease/Amylase (Pancremeseret Dr 10,500 Unit) 1 each FEEDTUBE PRN PRN PRN Reason: For Clogged Feeding Tube Azithromycin (Zithromax) 1,200 mg PO Mo [facility] Last Admin: 07/02/18 10:42 Dose: 1,200 mg Documented by: Fentanyl (Sublimaze) 50 mcg IV Q10MIN PRN PRN Reason: ANALGESIA Last Admin: 06/30/18 21:56 Dose: 50 mcg Documented by: Hydrophilic Ointment (Vaseline Lip Therapy) 1 applic TP Q2HR PRN PRN Reason: Dry Lips Fentanyl Citrate (Fentanyl Drip Premix) 2,000 mcg in 100 mls @ 3.86 mls/hr IV TITR [facility]; Protocol Last Admin: 07/02/18 08:32 Dose: 3 mcg/kg/hr, 11.581 mls/hr Documented by: Norepinephrine (Levophed Drip 4 Mg/Ns 250 Ml) 4 mg in 250 mls @ 7.5 mls/hr IV TITR [facility]; Protocol Last Titration: 07/02/18 09:50 Dose: 0 mcg/min, 0 mls/hr Documented by: Propofol (Diprivan 10 Mg/Ml) 1,000 mg in 100 mls @ 2.601 mls/hr IV TITR [facility]; Protocol Last Admin: 07/02/18 12:20 Dose: 25 mcg/kg/min, 13.005 mls/hr Documented by: Dextrose (D5w) 500 mls @ 5 mls/hr IV PRN PRN PRN Reason: FLUSH BEFORE AND AFTER AMPHO B Last Admin: 06/28/18 11:07 Dose: 5 mls/hr Documented by: Trimethoprim/Sulfamethoxazole (400 mg/ Dextrose) 275 mls @ 350 mls/hr IV DAILY [facility]; Protocol Last Admin: 07/02/18 10:32 Dose: 250 mls/hr Documented by: Amphotericin B 250 mg/ (Dextrose) 550 mls @ 250 mls/hr IV Q48HR [facility] Last Admin: 07/02/18 10:10 Dose: 250 mls/hr Documented by: Ganciclovir Sodium 120 mg/ (Sodium Chloride) 250 mls @ 100 mls/hr IV MoWeFr [facility] Last Admin: 07/02/18 10:42 Dose: 100 mls/hr Documented by: Vasopressin 20 unit/ Sodium (Chloride) 101 mls @ 9.09 mls/hr IV TITR [facility]; Protocol Last Admin: 07/02/18 08:15 Dose: 0.03 units/min, 9.09 mls/hr Documented by: Insulin Human Lispro (Humalog) 0 unit SUB-Q Q6HR [facility]; Protocol Last Admin: 07/02/18 12:06 Dose: Not Given Documented by: Methylprednisolone Sodium Succinate (Solu-Medrol) 40 mg IV Q12HR [facility] Last Admin: 07/02/18 10:42 Dose: 40 mg Documented by: Multi-Ingred Cream/Lotion/Oil/Oint (Artificial Tears Ophth Oint) 1 applic OU Q4HR PRN PRN Reason: Dry Eye(s) Ondansetron HCl (Zofran) 4 mg IV Q8H PRN PRN Reason: Nausea And Vomiting Last Admin: 06/30/18 21:55 Dose: 4 mg Documented by: Pantoprazole Sodium (Protonix) 40 mg IV QDAY [facility] Last Admin: 07/02/18 10:42 Dose: 40 mg Documented by: Phenylephrine HCl (Thompson-Synephrine) 2 spray NS Q4H PRN PRN Reason: Congestion Last Admin: 06/25/18 05:35 Dose: 2 spray Documented by: Simple Syrup (Simple Syrup) 15 ml FEEDTUBE PRN PRN PRN Reason: Hypoglycemia Simple Syrup (Simple Syrup) 30 ml FEEDTUBE PRN PRN PRN Reason: Hypoglycemia Sodium Bicarbonate (Sodium Bicarbonate) 325 mg FEEDTUBE PRN PRN PRN Reason: For Clogged Feeding Tube Sodium Chloride (Sodium Chloride Flush Syringe 10 Ml) 10 ml IV BID [facility] Last Admin: 07/02/18 10:33 Dose: 10 ml Documented by: Sodium Chloride (Sodium Chloride Flush Syringe 10 Ml) 10 ml IV PRN PRN PRN Reason: LINE FLUSH Exam - Constitutional Vitals: Temp Pulse Resp BP Pulse Ox 100.5 F H 104 H 22 149/75 98 07/02/18 12:00 07/02/18 12:02 07/02/18 08:01 07/02/18 12:02 07/02/18 12:02 Results - Labs CBC & Chem 7: 07/02/18 04:32 07/02/18 04:32 Labs: Abnormal lab results 06/29/18 07/01/18 07/01/18 Range/Units 09:50 18:38 23:40 WBC (4.5-11.0) K/mm3 RBC (3.65-5.03) M/mm3 Hgb (11.8-15.2) gm/dl Hct (35.5-45.6) % Plt Count (140-440) K/mm3 POC ABG pH 7.168 L (7.35-7.45) POC ABG pCO2 109.4 H (35-45) POC ABG pO2 199 H (80-105) Sodium (137-145) mmol/L Potassium (3.6-5.0) mmol/L Carbon Dioxide (22-30) mmol/L BUN (9-20) mg/dL Creatinine (0.8-1.5) mg/dL Glucose (75-100) mg/dL POC Glucose < 40 L (70-105) Calcium (8.4-10.2) mg/dL Crossmatch See Detail 07/02/18 07/02/18 07/02/18 Range/Units 04:32 04:32 05:00 WBC 14.8 H (4.5-11.0) K/mm3 RBC 2.68 L (3.65-5.03) M/mm3 Hgb 8.1 L (11.8-15.2) gm/dl Hct 23.8 L (35.5-45.6) % Plt Count 81 L (140-440) K/mm3 POC ABG pH 7.319 L (7.35-7.45) POC ABG pCO2 89.8 H (35-45) POC ABG pO2 119 H (80-105) Sodium 151 H D (137-145) mmol/L Potassium 3.1 L D (3.6-5.0) mmol/L Carbon Dioxide 39 H D (22-30) mmol/L BUN 108 H (9-20) mg/dL Creatinine 1.8 H (0.8-1.5) mg/dL Glucose 44 L (75-100) mg/dL POC Glucose (70-105) Calcium 6.6 L (8.4-10.2) mg/dL Crossmatch 07/02/18 07/02/18 Range/Units 05:12 11:54 WBC (4.5-11.0) K/mm3 RBC (3.65-5.03) M/mm3 Hgb (11.8-15.2) gm/dl Hct (35.5-45.6) % Plt Count (140-440) K/mm3 POC ABG pH (7.35-7.45) POC ABG pCO2 (35-45) POC ABG pO2 (80-105) Sodium (137-145) mmol/L Potassium (3.6-5.0) mmol/L Carbon Dioxide (22-30) mmol/L BUN (9-20) mg/dL Creatinine (0.8-1.5) mg/dL Glucose (75-100) mg/dL POC Glucose < 40 L < 40 L (70-105) Calcium (8.4-10.2) mg/dL Crossmatch
--- NOTE | 2018-07-02 14:33 | Progress Note ---
Assessment and Plan Assessment and plan: Patient is 32 yo with hypertension presented with shortness of breath, cough. He was found to have bilateral infiltrates. He was diagnosed with acute respiratory failure due to bilateral pneumonia. He was started on iv Antibiotics, put on BIPAP. He became worse, was intubated. Labs show HIV/AIDS, new diagnosis. Patient is followed by Pulmonology, ID Physician. few days into admission, he developed JENNIFER due to ATN from sepsis, contrast exposure and medications. Muir catheter was placed and Cr improving. ARDS Acute respiratory failure with hypoxia requiring full mechanical ventilatory support Sepsis secondary to bilateral pneumonia Septic shock Excessive bilateral pneumonia PCP pneumonia vs fungal HIV/AIDS Hyponatremia Epixtasis JENNIFER secondary to Multifactorial in setting of pre-renal injury, ATN secondary sepsis, contrast exposure, voriconazole, bactrim/antibiotic exposure. Now improving Severe metabolic acidosis shock liver-Improving Pulmonary hypertension Hyperkalemia, resolved after meds, dialysis Hypotension Anemia due to acute blood loss from hematuria, now stable Gross hematuria, clearing Plan of care Continue full ventilatory support as directed by biology faculty member Oil And [employer] Drafter and infectious disease input noted antibiotics and antifungal agents being adjusted for renal dose Continue antibiotics/ antifungal as recommended by ID . On Bactrim iv Hypotension. On Vasopressin. levophed weaned off this morning 07/02/18 VAP precautions Hemoglobin 8.1 today s/p e 2 Units PRBC yesterday for gross hematuria DVT and GI prophylaxis Hyperkalemia, now resolved Gross hematuria after muir catheter placed on06/30/18, now clearing,pink. Transfused 2 Units. Consulted Urology and Laisha Arroyo evaluated patient and recommends conservative management, since clearing H/H stable. Unstable to go for CT Abd. Hypernatremia today Hypokalemia after kayexalate Case discussed with nursing staff. Poor prognosis The high probability of a clinically significant, sudden or life threatening deterioration of the [Pulmonary] system(s) required my full and direct attention, intervention and personal management. The aggregate critical care time was [32] minutes. This time is in addition to time spent performing reported procedures but includes the following: [x] Data Review and interpretation [x] Patient assessment and monitoring of vital signs [x] Documentation [x] Medication orders and management History Interval history: Patient remains intubated, Still having Fever Gross hematuria, clearing Hypoglycemia episodes Hospitalist Physical - Physical exam Narrative exam: GEN: Intubated,Obese HEENT: Normocephalic, atraumatic, Neck: supple, No JVD Lungs: Bilateral crackles, no wheeze Heart:S1 and S2 regular, no murmurs, rubs or gallop, Abd:soft, non tender, non distended, normal bowel sounds Ext: Edema all ext, no clubbing or cyanosis Neuro: Intubated, sedated Skin:anasarca - Constitutional Vitals: Temp Pulse Resp BP Pulse Ox 100.5 F H 120 H 30 H 149/75 98 07/02/18 12:00 07/02/18 14:02 07/02/18 14:02 07/02/18 12:02 07/02/18 12:02 General appearance: Present: no acute distress Results - Labs CBC & Chem 7: 07/02/18 04:32 07/02/18 13:11 Labs: Laboratory Last Values WBC 14.8 K/mm3 (4.5-11.0) H 07/02/18 04:32 RBC 2.68 M/mm3 (3.65-5.03) L 07/02/18 04:32 Hgb 8.1 gm/dl (11.8-15.2) L 07/02/18 04:32 Hct 23.8 % (35.5-45.6) L 07/02/18 04:32 MCV 89 fl (84-94) 07/02/18 04:32 MCH 30 pg (28-32) 07/02/18 04:32 MCHC 34 % (32-34) 07/02/18 04:32 RDW 14.8 % (13.2-15.2) 07/02/18 04:32 Plt Count 81 K/mm3 (140-440) L 07/02/18 04:32 Add Manual Diff Complete 06/20/18 08:13 Total Counted 100 06/20/18 08:13 Seg Neutrophils % Environmental Protection Geologist 06/20/18 08:13 Seg Neuts % (Manual) 99.0 % (40.0-70.0) H 06/20/18 08:13 Band Neutrophils % 0 % 06/20/18 08:13 Lymphocytes % (Manual) 1.0 % (13.4-35.0) L 06/20/18 08:13 Reactive Lymphs % (Man) 0 % 06/20/18 08:13 Monocytes % (Manual) 0 % (0.0-7.3) 06/20/18 08:13 Eosinophils % (Manual) 0 % (0.0-4.3) 06/20/18 08:13 Basophils % (Manual) 0 % (0.0-1.8) 06/20/18 08:13 Metamyelocytes % 0 % 06/20/18 08:13 Myelocytes % 0 % 06/20/18 08:13 Promyelocytes % 0 % 06/20/18 08:13 Blast Cells % 0 % 06/20/18 08:13 Nucleated RBC % Not Reportable 06/20/18 08:13 Seg Neutrophils # Man 11.7 K/mm3 (1.8-7.7) H 06/20/18 08:13 Band Neutrophils # 0.0 K/mm3 06/20/18 08:13 Abs Lymphs (Manual) 409 cells/uL (850-3900) L 06/19/18 07:11 Lymphocytes # (Manual) 0.1 K/mm3 (1.2-5.4) L 06/20/18 08:13 Abs React Lymphs (Man) 0.0 K/mm3 06/20/18 08:13 Monocytes # (Manual) 0.0 K/mm3 (0.0-0.8) 06/20/18 08:13 Eosinophils # (Manual) 0.0 K/mm3 (0.0-0.4) 06/20/18 08:13 Basophils # (Manual) 0.0 K/mm3 (0.0-0.1) 06/20/18 08:13 Metamyelocytes # 0.0 K/mm3 06/20/18 08:13 Myelocytes # 0.0 K/mm3 06/20/18 08:13 Promyelocytes # 0.0 K/mm3 06/20/18 08:13 Blast Cells # 0.0 K/mm3 06/20/18 08:13 WBC Morphology Not Reportable 06/20/18 08:13 Hypersegmented Neuts Not Reportable 06/20/18 08:13 Hyposegmented Neuts Not Reportable 06/20/18 08:13 Hypogranular Neuts Not Reportable 06/20/18 08:13 Smudge Cells Not Reportable 06/20/18 08:13 Toxic Granulation Not Reportable 06/20/18 08:13 Toxic Vacuolation Not Reportable 06/20/18 08:13 Dohle Bodies Not Reportable 06/20/18 08:13 Pelger-Huet Anomaly Not Reportable 06/20/18 08:13 Loretta Rods Not Reportable 06/20/18 08:13 Platelet Estimate Consistent w auto 06/20/18 08:13 Clumped Platelets Not Reportable 06/20/18 08:13 Plt Clumps, EDTA Not Reportable 06/20/18 08:13 Large Platelets Not Reportable 06/20/18 08:13 Giant Platelets Not Reportable 06/20/18 08:13 Platelet Satelliting Not Reportable 06/20/18 08:13 Plt Morphology Comment Not Reportable 06/20/18 08:13 RBC Morphology Not Reportable 06/20/18 08:13 Dimorphic RBCs Not Reportable 06/20/18 08:13 Polychromasia Not Reportable 06/20/18 08:13 Hypochromasia Not Reportable 06/20/18 08:13 Poikilocytosis 1+ 06/20/18 08:13 Anisocytosis 1+ 06/20/18 08:13 Microcytosis Not Reportable 06/20/18 08:13 Macrocytosis Not Reportable 06/20/18 08:13 Spherocytes Not Reportable 06/20/18 08:13 Pappenheimer Bodies Not Reportable 06/20/18 08:13 Sickle Cells Not Reportable 06/20/18 08:13 Target Cells Not Reportable 06/20/18 08:13 Tear Drop Cells Not Reportable 06/20/18 08:13 Ovalocytes 1+ 06/20/18 08:13 Helmet Cells Not Reportable 06/20/18 08:13 [place] Bodies Not Reportable 06/20/18 08:13 [place] Rings Not Reportable 06/20/18 08:13 Cyril Cells Not Reportable 06/20/18 08:13 Bite Cells Not Reportable 06/20/18 08:13 Crenated Cell Not Reportable 06/20/18 08:13 Elliptocytes Not Reportable 06/20/18 08:13 Acanthocytes (Spur) Not Reportable 06/20/18 08:13 Rouleaux Not Reportable 06/20/18 08:13 Hemoglobin C Crystals Not Reportable 06/20/18 08:13 Schistocytes Not Reportable 06/20/18 08:13 Malaria parasites Not Reportable 06/20/18 08:13 Jesus Bodies Not Reportable 06/20/18 08:13 Hem Pathologist Commnt No 06/20/18 08:13 PT 14.3 Sec. (12.2-14.9) 07/01/18 09:11 INR 1.05 (0.87-1.13) 07/01/18 09:11 APTT 28.7 Sec. (24.2-36.6) 06/19/18 Unknown Fibrinogen 428 mg/dl (211-480) 07/01/18 10:00 D-Dimer 2387.14 ng/mlDDU (0-234) H 07/01/18 10:00 POC ABG pH 7.319 (7.35-7.45) L 07/02/18 05:00 POC ABG pCO2 89.8 (35-45) H 07/02/18 05:00 POC ABG pO2 119 (80-105) H 07/02/18 05:00 POC ABG HCO3 46.2 07/02/18 05:00 POC ABG Total CO2 49 07/02/18 05:00 POC ABG O2 Sat 98 07/02/18 05:00 POC ABG Base Excess 20 07/02/18 05:00 FiO2 100 % 07/02/18 05:00 Sodium 151 mmol/L (137-145) H D 07/02/18 04:32 Potassium 3.1 mmol/L (3.6-5.0) L D 07/02/18 04:32 Chloride 101.1 mmol/L (98-107) 07/02/18 04:32 Carbon Dioxide 39 mmol/L (22-30) H D 07/02/18 04:32 Anion Gap 14 mmol/L 07/02/18 04:32 BUN 108 mg/dL (9-20) H 07/02/18 04:32 Creatinine 1.8 mg/dL (0.8-1.5) H 07/02/18 04:32 Estimated GFR 44 ml/min 07/02/18 04:32 BUN/Creatinine Ratio 60 % 07/02/18 04:32 Glucose 87 mg/dL (75-100) 07/02/18 13:11 POC Glucose 53 (70-105) L 07/02/18 14:09 Lactic Acid 1.70 mmol/L (0.7-2.0) 06/19/18 05:26 Calcium 6.6 mg/dL (8.4-10.2) L 07/02/18 04:32 Total Bilirubin < 0.20 mg/dL (0.1-1.2) 06/23/18 05:11 Direct Bilirubin < 0.2 mg/dL (0-0.2) 06/19/18 Unknown Indirect Bilirubin 0.2 mg/dL 06/19/18 Unknown AST 63 units/L (5-40) H 06/23/18 05:11 ALT 297 units/L (7-56) H 06/23/18 05:11 Alkaline Phosphatase 127 units/L (35-129) 06/23/18 05:11 Troponin T < 0.010 ng/mL (0.00-0.029) 06/19/18 Unknown C-Reactive Protein 1.60 mg/dL (0.00-1.30) H 06/23/18 18:40 NT-Pro-B Natriuret Pep 226.4 pg/mL (0-450) 06/19/18 Unknown Total Protein 5.3 g/dL (6.3-8.2) L 06/23/18 05:11 Albumin 2.4 g/dL (3.9-5) L 06/23/18 05:11 Albumin/Globulin Ratio 0.8 % 06/23/18 05:11 Triglycerides 223 mg/dL (2-149) H 06/30/18 Unknown Urine Color Yellow (Yellow) 06/24/18 22:45 Urine Turbidity Slightly-cloudy (Clear) 06/24/18 22:45 Urine pH 5.0 (5.0-7.0) 06/24/18 22:45 Ur Specific [place] 1.014 (1.003-1.030) 06/24/18 22:45 Urine Protein <15 mg/dl mg/dL (Negative) 06/24/18 22:45 Urine Glucose (UA) Neg mg/dL (Negative) 06/24/18 22:45 Urine Ketones Neg mg/dL (Negative) 06/24/18 22:45 Urine Blood Neg (Negative) 06/24/18 22:45 Urine Nitrite Neg (Negative) 06/24/18 22:45 Urine Bilirubin Neg (Negative) 06/24/18 22:45 Urine Urobilinogen < 2.0 mg/dL (<2.0) 06/24/18 22:45 Ur Leukocyte Esterase Neg (Negative) 06/24/18 22:45 Urine WBC (Auto) 9.0 /HPF (0.0-6.0) H 06/24/18 22:45 Urine RBC (Auto) 19.0 /HPF (0.0-6.0) 06/24/18 22:45 U Epithel Cells (Auto) < 1.0 /HPF (0-13.0) 06/19/18 08:07 Urine Bacteria (Auto) 1+ /HPF (Negative) 06/24/18 22:45 Hyaline Casts 1 /LPF 06/24/18 22:45 Urine Mucus Few /HPF 06/19/18 08:07 Urine Yeast (Budding) 1+ /HPF 06/24/18 22:45 Urine Eosinophils None seen (None Seen) 06/24/18 22:45 Urine Creatinine 47.2 mg/dL (0.1-20.0) H 06/24/18 22:45 Urine Sodium 40 mmol/L 06/24/18 22:45 Urine Total Protein 25 mg/dL (5-11.8) H 06/24/18 22:45 Random Vancomycin 6.5 ug/mL (0-40.0) 06/25/18 11:40 Urine Opiates Screen Presumptive negative 06/19/18 08:06 Urine Methadone Screen Presumptive negative 06/19/18 08:06 Ur Barbiturates Screen Presumptive negative 06/19/18 08:06 Ur Phencyclidine Scrn Presumptive negative 06/19/18 08:06 Ur Amphetamines Screen Presumptive negative 06/19/18 08:06 U Benzodiazepines Scrn Presumptive positive 06/19/18 08:06 Urine Cocaine Screen Presumptive negative 06/19/18 08:06 U Marijuana (THC) Screen Presumptive negative 06/19/18 08:06 Drugs of Abuse Note Disclamer 06/19/18 08:06 Lymph Enumerat CD4/CD8 0.05 (0.86-5.00) L 06/19/18 07:11 % CD3 Cells 45 % (57-85) L 06/19/18 07:11 Absolute CD3 Count 185 cells/uL (840-3060) L 06/19/18 07:11 % CD4 Cells 2 % (30-61) L 06/19/18 07:11 Absolute CD4 Count 10 cells/uL (490-1740) L 06/19/18 07:11 % CD8 Cells 43 % (12-42) H 06/19/18 07:11 Absolute CD8 Count 167 cells/uL (180-1170) L 06/19/18 07:11 % CD19 Cells 18 % (6-29) 06/19/18 07:11 Absolute CD19 Count 79 cells/uL (110-660) L 06/19/18 07:11 CMV DNA PCR log endoscopy technician/mL See scanned report 06/19/18 15:16 Hepatitis A IgM Ab Non-reactive (NonReactive) 06/21/18 04:19 Hep Bs Antigen Non-reactive (Negative) 06/21/18 04:19 Hep B Core IgM Ab Non-reactive (NonReactive) 06/21/18 04:19 Hepatitis C Antibody Non-reactive (NonReactive) 06/21/18 04:19 HIV DNA Qual (PCR) Detected (Not Detected) H 06/19/18 09:20 HIV-1 Antibody See scanned results 06/19/18 07:12 HIV-1 RNA PCR copies/ml [id number] Copies/mL H 06/19/18 15:16 HIV-1 RNA (PCR) log 6.11 Log cps/mL H 06/19/18 15:16 HIV-2 Ab (Immunoblot) See scanned results 06/19/18 07:12 HIV 1&2 Antibody Rapid Reactive (Non React) 06/19/18 07:10 HIV P24 Antigen Invalid (Non React) 06/19/18 07:10 Influenza A (Rapid) Negative (Negative) 06/19/18 Unknown Influenza A (RT-PCR) Negative (Negative) 06/21/18 12:30 Influenza B (Rapid) Negative (Negative) 06/19/18 Unknown Influenza B (RT-PCR) Negative (Negative) 06/21/18 12:30 Miscellaneous Test Flexitest 1 H 06/27/18 05:15 Blood Type O POSITIVE 06/29/18 09:50 Antibody Screen Negative 06/29/18 09:50 Crossmatch See Detail 06/29/18 09:50 Nutrition/Malnutrition Assess - Dietary Evaluation Nutrition/Malnutrition Findings: Nutrition Notes Start: 06/19/18 14:17 Freq: Status: Active Protocol: Document 06/29/18 10:02 CP (Rec: 06/29/18 10:09 CP [id number]) Co-Sign 06/29/18 10:02 LP Nutrition Notes Initial or Follow up Reassessment Current Diagnosis Hypertension Other Pertinent Diagnosis SOB, bilateral pneumonia, HIV Current Diet TF Nepro at 50 mL/hr Labs/Tests K 5.9 BUN 139 Cr 4.2 BG 157 Pertinent Medications Reviewed. Height 5 ft 9 in Weight 93 kg [place] Body Weight (kg) 72.72 BMI 30.2 Subjective/Other Information Nepro infusing at goal rate at time of visit. Pt remains on ventilator support. Pt had bilateral edema on his upper extremities. Used his wt from 06/27/18 to calculate needs d/t fluid wt gain. Per RN, pt is tolerating TF. Dialysis order was placed as discussed during rounds. Percent of energy/protein needs met: 99%/93% Burn Absent Trauma Absent #1 Nutrition Diagnosis Inadequate oral intake Diagnosis Progress(for reassessment Continues documentation) Is patient on ventilator? Yes Is Patient Ambulatory and/or Out of Bed No REE-([place]-confined to bed) [phone] Calculation Used for Recommendations [place] Additional Notes PRO: 104-173 (1.2 - 2g KG ABW) fluid: 1 ml/kcal Nutrition Intervention Change Diet Order: Continue TF Nutrition Support: Nepro at 50 mL/hr with 100 mL water flush q4h. Kcal 2,160 Protein (gm) 97 Fluid (mL) 872 Goal #1 TF tolerance Goal #2 TF to continue to meet 80-100% of kcal and protein needs. Anticipated Discharge Needs: Unable to determine at this time Follow-Up By: 07/03/18 Additional Comments F/U: TF tolerance/renal function
[2018-07-02] MEDS: TYLENOL PO PRN ×2 (16:54→21:41)
[2018-07-03] MEDS: HumaLOG SUB-Q SCH ×5 (00:20→23:51)
[2018-07-03] MEDS: fentaNYL DRIP Premix 2,000 MCG/100 ML BAG IV SCH ×3 (02:38→22:22)
[2018-07-03] MEDS: DUONEB *Not for PRN Use IH SCH ×4 (03:35→19:54)
[2018-07-03] MEDS: DIPRIVAN 10 MG/ML 1,000 MG/100 ML BOTTLE IV SCH ×3 (04:50→17:04)
[2018-07-03 05:17] LABS: Hematocrit 20.3 % (35.5-45.6); Mean Corpuscular HGB Conc 34 % (32-34); Mean Corpuscular Volume 91 fl (84-94); Red Blood Count 2.23 M/mm3 (3.65-5.03); Red Cell Distribution Width 14.9 % (13.2-15.2)
[2018-07-03 05:22] LABS: Platelet Count 81 K/mm3 (140-440)
[2018-07-03 05:43] LABS: Calcium 6.9 mg/dL (8.4-10.2)
[2018-07-03] MEDS: Vasostrict 20 UNIT in NACL 0.9% 100 ML IV SCH ×2 (07:49→22:21)
--- NOTE | 2018-07-03 08:31 | Progress Note ---
Assessment and Plan Acute Hypoxemic Respiratory Failure on MVS ARDS AIDS / HIV positive Severe Sepsis with septic shock due to Pneumonia Severe respiratory acidosis Lower extremity DVT Acute renal failure Thrombocytopenia Hematuria, improving Anemia requiring blood transfusions Hypernatremia Medical decision making -Transfuse to keep HgB>7g/dL -AGB daily -Continue to wean PEEP and O2 sat plan on decreasing PEEP to 8, to keep airway pressures(Pplat) <30 -ABG in am to re-evaluate oxygenation and acid-base -Continue PPI renally dosed -Nutrition consult to initiate enteric feeding -Stop insulin in view of hypoglycemia -Continue to hold all anticoagulation for now -Target glucose of 140mg- 180mg/dL, add sliding scale insulin therapy -VAP bundle addressed - Continue supplemental oxygen to keep sats > 90% -Wean PEEP and FIO2 as tolerated -ARDS net protocol with lung protective strategies Permissive hypercapnia for now. -OK for bicarbonate if pH <7.1 -Fluid management should be restrictive to allow for oxygenation and ventilation - continue bronchodilators per protocol -Vasopressor support wean for MAP >65 -Continue steroids -Continue empiric and targeted anti-infective's per ID recs -Aspiration precautions, HOB>40 -Accucheck and monitor for hypoglycemia - Continue to monitor for for drug-drug interaction - Daily SATs and SBT per protocol once his ventilatory needs are minimal - Stress ulcer prophylaxis -Anticoagulation, stopped Eliquis. -Critical care bundles addressed CONDITION: CRITICAL PROGNOSIS: POOR CODE STATUS: FULL CODE The high probability of a clinically significant, sudden or life-threatening deterioration of the [cardiac, respiratory] system(s) required my full and direct attention, intervention and personal management. The aggregate critical care time was [35] minutes without overlap. Time includes spent on; [x] Data Review and interpretation [x] Patient assessment and monitoring of vital signs [x] Documentation Subjective Date of service: 07/03/18 Principal diagnosis: Acute Hypoxemic Resp Failure; AIDS / HIV positive; Severe Sepsis due to PNA Interval history: Patient is seen today for: Acute Hypoxemic Respiratory Failure on MVS; AIDS / HIV positive; Severe Sepsis due to Pneumonia; Hyponatremia; Severe metabolic acidosis Seen and examined at bedside; 24hour events reviewed; nursing and respiratory care staff consulted; no adverse overnight events reported to me; ; on fentanyl and propofol; remains on MVS requiring PEEP 10 and FIO2 96%; no seizures reported; no emesis or overt aspiration, Off norepinephrine, still on fixed dose vasopressin Remains unresponsive Objective Vital Signs - 12hr 07/02/18 07/02/18 07/02/18 20:33 20:34 20:47 Temperature 102.5 F H Pulse Rate 110 H Pulse Rate [ Apical] Pulse Rate [ 113 H Bilateral] Respiratory Rate Respiratory 29 H Rate [Bilateral ] Blood Pressure 117/56 O2 Sat by Pulse 91 Oximetry 07/02/18 07/02/18 07/02/18 21:00 21:23 21:40 Temperature 100.5 F H Pulse Rate 110 H 111 H Pulse Rate [ 112 H Apical] Pulse Rate [ 110 H Bilateral] Respiratory 28 H 28 H Rate Respiratory 29 H Rate [Bilateral ] Blood Pressure 126/55 O2 Sat by Pulse 93 93 Oximetry 07/02/18 07/02/18 07/02/18 21:41 22:00 22:41 Temperature Pulse Rate 111 H Pulse Rate [ Apical] Pulse Rate [ Bilateral] Respiratory 29 H 28 H 28 H Rate Respiratory Rate [Bilateral ] Blood Pressure 120/60 O2 Sat by Pulse 90 Oximetry 07/02/18 07/02/18 07/02/18 22:45 23:00 23:01 Temperature Pulse Rate 112 H 108 H 105 H Pulse Rate [ Apical] Pulse Rate [ Bilateral] Respiratory 27 H 28 H Rate Respiratory Rate [Bilateral ] Blood Pressure 125/65 117/66 117/66 O2 Sat by Pulse 91 91 92 Oximetry 07/03/18 07/03/18 07/03/18 00:00 00:20 01:00 Temperature Pulse Rate 109 H 108 H 108 H Pulse Rate [ 110 H Apical] Pulse Rate [ Bilateral] Respiratory 29 H 28 H 28 H Rate Respiratory Rate [Bilateral ] Blood Pressure 139/69 123/63 123/63 O2 Sat by Pulse 91 93 92 Oximetry 07/03/18 07/03/18 07/03/18 02:00 02:20 03:00 Temperature Pulse Rate 108 H 107 H 106 H Pulse Rate [ 112 H Apical] Pulse Rate [ Bilateral] Respiratory 28 H 27 H 30 H Rate Respiratory Rate [Bilateral ] Blood Pressure 117/69 138/69 O2 Sat by Pulse 93 93 93 Oximetry 07/03/18 07/03/18 07/03/18 03:20 03:36 03:38 Temperature Pulse Rate 107 H 107 H Pulse Rate [ 112 H Apical] Pulse Rate [ 108 H Bilateral] Respiratory 27 H Rate Respiratory 31 H Rate [Bilateral ] Blood Pressure 131/71 O2 Sat by Pulse 93 91 Oximetry 07/03/18 07/03/18 07/03/18 03:42 03:51 04:00 Temperature 101.2 F H 100.5 F H Pulse Rate 106 H Pulse Rate [ Apical] Pulse Rate [ 112 H Bilateral] Respiratory 30 H Rate Respiratory 30 H Rate [Bilateral ] Blood Pressure 104/71 O2 Sat by Pulse 92 Oximetry 07/03/18 07/03/18 07/03/18 05:00 06:00 07:33 Temperature 100.1 F H Pulse Rate 88 108 H Pulse Rate [ Apical] Pulse Rate [ Bilateral] Respiratory 29 H 27 H Rate Respiratory Rate [Bilateral ] Blood Pressure 122/60 112/67 O2 Sat by Pulse 89 90 Oximetry Constitutional: comatose, appears uncomfortable, other (young HM normocephalic and atraumatic with moderately increased respiratory effort at rest) Eyes: non-icteric ENT: oropharynx moist, other (ETT 23 cm SATISH) Neck: supple, no lymphadenopathy, no JVD, other (no thyromegaly) Effort: mildly labored Ascultation: Bilateral: diminished breath sounds, rhonchi Percussion: Bilateral: not dull Cardiovascular: regular rate and rhythm, other (S1,S2, no murmurs, gallops or rubs) Gastrointestinal: normoactive bowel sounds, soft, non-tender, non-distended Integumentary: rash Extremities: no cyanosis, pink and warm, pulses normal, no ischemia or petechiae, edema (bilateral upper extemity ), anasarca Neurologic: pupils equal and round, unable to assess Psychiatric: other (unable to assess) CBC and BMP: 07/03/18 19:15 07/03/18 05:00 ABG, PT/INR, D-dimer: ABG POC ABG pH 7.267 (7.35-7.45) L 07/03/18 04:28 POC ABG pCO2 93.3 (35-45) H 07/03/18 04:28 POC ABG pO2 69 (80-105) L 07/03/18 04:28 POC ABG HCO3 42.6 07/03/18 04:28 POC ABG Total CO2 45 07/03/18 04:28 POC ABG O2 Sat 89 07/03/18 04:28 PT/INR, D-dimer PT 14.3 Sec. (12.2-14.9) 07/01/18 09:11 INR 1.05 (0.87-1.13) 07/01/18 09:11 D-Dimer 2387.14 ng/mlDDU (0-234) H 07/01/18 10:00 Abnormal lab findings: Abnormal Labs 06/19/18 06/19/18 06/19/18 03:31 07:11 07:42 WBC RBC Hgb Hct MCV RDW Plt Count Seg Neuts % (Manual) Lymphocytes % (Manual) Seg Neutrophils # Man Abs Lymphs (Manual) 409 L Lymphocytes # (Manual) PT INR D-Dimer POC ABG pH 6.974 L POC ABG pCO2 22.0 L 83.4 H POC ABG pO2 28 L 122 H Sodium Potassium Chloride Carbon Dioxide BUN Creatinine Glucose POC Glucose Calcium AST ALT C-Reactive Protein Total Protein Albumin Triglycerides Ur Specific [place] Urine WBC (Auto) Urine Creatinine Urine Total Protein Lymph Enumerat CD4/CD8 0.05 L % CD3 Cells 45 L Absolute CD3 Count 185 L % CD4 Cells 2 L Absolute CD4 Count 10 L % CD8 Cells 43 H Absolute CD8 Count 167 L Absolute CD19 Count 79 L HIV DNA Qual (PCR) HIV-1 RNA PCR copies/ml HIV-1 RNA (PCR) log Miscellaneous Test Crossmatch 06/19/18 06/19/18 06/19/18 08:07 08:16 09:20 WBC RBC Hgb Hct MCV RDW Plt Count Seg Neuts % (Manual) Lymphocytes % (Manual) Seg Neutrophils # Man Abs Lymphs (Manual) Lymphocytes # (Manual) PT INR D-Dimer POC ABG pH 6.996 L POC ABG pCO2 82.4 H POC ABG pO2 Sodium Potassium Chloride Carbon Dioxide BUN Creatinine Glucose POC Glucose Calcium AST ALT C-Reactive Protein Total Protein Albumin Triglycerides Ur Specific [place] 1.060 H Urine WBC (Auto) 8.0 H Urine Creatinine Urine Total Protein Lymph Enumerat CD4/CD8 % CD3 Cells Absolute CD3 Count % CD4 Cells Absolute CD4 Count % CD8 Cells Absolute CD8 Count Absolute CD19 Count HIV DNA Qual (PCR) Detected H HIV-1 RNA PCR copies/ml HIV-1 RNA (PCR) log Miscellaneous Test Crossmatch 06/19/18 06/19/18 06/19/18 09:49 11:15 15:16 WBC RBC Hgb Hct MCV RDW Plt Count Seg Neuts % (Manual) Lymphocytes % (Manual) Seg Neutrophils # Man Abs Lymphs (Manual) Lymphocytes # (Manual) PT INR D-Dimer POC ABG pH 7.198 L 7.206 L POC ABG pCO2 POC ABG pO2 75 L Sodium Potassium Chloride Carbon Dioxide BUN Creatinine Glucose POC Glucose Calcium AST ALT C-Reactive Protein Total Protein Albumin Triglycerides Ur Specific [place] Urine WBC (Auto) Urine Creatinine Urine Total Protein Lymph Enumerat CD4/CD8 % CD3 Cells Absolute CD3 Count % CD4 Cells Absolute CD4 Count % CD8 Cells Absolute CD8 Count Absolute CD19 Count HIV DNA Qual (PCR) HIV-1 RNA PCR copies/ml [id number] H HIV-1 RNA (PCR) log 6.11 H Miscellaneous Test Crossmatch 06/19/18 06/19/18 06/19/18 18:54 Unknown Unknown WBC 12.9 H RBC Hgb Hct MCV RDW Plt Count Seg Neuts % (Manual) Lymphocytes % (Manual) 5.0 L Seg Neutrophils # Man Abs Lymphs (Manual) Lymphocytes # (Manual) 0.6 L PT 15.9 H INR 1.19 H D-Dimer 8449.09 H POC ABG pH POC ABG pCO2 POC ABG pO2 Sodium Potassium Chloride Carbon Dioxide BUN Creatinine Glucose POC Glucose 196 H Calcium AST ALT C-Reactive Protein Total Protein Albumin Triglycerides Ur Specific [place] Urine WBC (Auto) Urine Creatinine Urine Total Protein Lymph Enumerat CD4/CD8 % CD3 Cells Absolute CD3 Count % CD4 Cells Absolute CD4 Count % CD8 Cells Absolute CD8 Count Absolute CD19 Count HIV DNA Qual (PCR) HIV-1 RNA PCR copies/ml HIV-1 RNA (PCR) log Miscellaneous Test Crossmatch 06/19/18 06/19/18 06/20/18 Unknown Unknown 04:33 WBC RBC Hgb Hct MCV RDW Plt Count Seg Neuts % (Manual) Lymphocytes % (Manual) Seg Neutrophils # Man Abs Lymphs (Manual) Lymphocytes # (Manual) PT INR D-Dimer POC ABG pH 7.249 L POC ABG pCO2 POC ABG pO2 118 H Sodium 129 L Potassium Chloride 90.7 L Carbon Dioxide 17 L BUN Creatinine 0.6 L Glucose 199 H POC Glucose Calcium 8.1 L AST 53 H ALT C-Reactive Protein Total Protein 6.0 L Albumin 2.8 L Triglycerides Ur Specific [place] Urine WBC (Auto) Urine Creatinine Urine Total Protein Lymph Enumerat CD4/CD8 % CD3 Cells Absolute CD3 Count % CD4 Cells Absolute CD4 Count % CD8 Cells Absolute CD8 Count Absolute CD19 Count HIV DNA Qual (PCR) HIV-1 RNA PCR copies/ml HIV-1 RNA (PCR) log Miscellaneous Test Crossmatch 06/20/18 06/20/18 06/20/18 08:13 08:13 12:59 WBC 11.8 H RBC 3.25 L Hgb 9.8 L D Hct 30.4 L D MCV RDW Plt Count Seg Neuts % (Manual) 99.0 H Lymphocytes % (Manual) 1.0 L Seg Neutrophils # Man 11.7 H Abs Lymphs (Manual) Lymphocytes # (Manual) 0.1 L PT INR D-Dimer POC ABG pH POC ABG pCO2 POC ABG pO2 Sodium Potassium Chloride Carbon Dioxide 19 L BUN Creatinine Glucose 223 H POC Glucose 174 H Calcium 6.6 L D AST 1240 H ALT 836 H C-Reactive Protein Total Protein 4.9 L Albumin 2.1 L Triglycerides Ur Specific [place] Urine WBC (Auto) Urine Creatinine Urine Total Protein Lymph Enumerat CD4/CD8 % CD3 Cells Absolute CD3 Count % CD4 Cells Absolute CD4 Count % CD8 Cells Absolute CD8 Count Absolute CD19 Count HIV DNA Qual (PCR) HIV-1 RNA PCR copies/ml HIV-1 RNA (PCR) log Miscellaneous Test Crossmatch 06/20/18 06/20/18 06/21/18 17:42 23:44 04:08 WBC RBC Hgb Hct MCV RDW Plt Count Seg Neuts % (Manual) Lymphocytes % (Manual) Seg Neutrophils # Man Abs Lymphs (Manual) Lymphocytes # (Manual) PT INR D-Dimer POC ABG pH 7.309 L POC ABG pCO2 POC ABG pO2 Sodium Potassium Chloride Carbon Dioxide BUN Creatinine Glucose POC Glucose 177 H 195 H Calcium AST ALT C-Reactive Protein Total Protein Albumin Triglycerides Ur Specific [place] Urine WBC (Auto) Urine Creatinine Urine Total Protein Lymph Enumerat CD4/CD8 % CD3 Cells Absolute CD3 Count % CD4 Cells Absolute CD4 Count % CD8 Cells Absolute CD8 Count Absolute CD19 Count HIV DNA Qual (PCR) HIV-1 RNA PCR copies/ml HIV-1 RNA (PCR) log Miscellaneous Test Crossmatch 06/21/18 06/21/18 06/21/18 04:19 04:19 05:27 WBC 13.8 H RBC 3.02 L Hgb 9.2 L Hct 28.0 L MCV RDW Plt Count Seg Neuts % (Manual) Lymphocytes % (Manual) Seg Neutrophils # Man Abs Lymphs (Manual) Lymphocytes # (Manual) PT INR D-Dimer POC ABG pH POC ABG pCO2 POC ABG pO2 Sodium 135 L Potassium Chloride Carbon Dioxide 21 L BUN Creatinine 0.7 L Glucose 161 H POC Glucose 187 H Calcium 7.2 L AST 390 H ALT 622 H C-Reactive Protein Total Protein 5.3 L Albumin 2.4 L Triglycerides Ur Specific [place] Urine WBC (Auto) Urine Creatinine Urine Total Protein Lymph Enumerat CD4/CD8 % CD3 Cells Absolute CD3 Count % CD4 Cells Absolute CD4 Count % CD8 Cells Absolute CD8 Count Absolute CD19 Count HIV DNA Qual (PCR) HIV-1 RNA PCR copies/ml HIV-1 RNA (PCR) log Miscellaneous Test Crossmatch 06/21/18 06/21/18 06/21/18 11:33 12:32 17:45 WBC RBC Hgb Hct MCV RDW Plt Count Seg Neuts % (Manual) Lymphocytes % (Manual) Seg Neutrophils # Man Abs Lymphs (Manual) Lymphocytes # (Manual) PT INR D-Dimer POC ABG pH POC ABG pCO2 POC ABG pO2 Sodium Potassium Chloride Carbon Dioxide BUN Creatinine Glucose POC Glucose 147 H 172 H Calcium AST ALT C-Reactive Protein Total Protein Albumin Triglycerides Ur Specific [place] Urine WBC (Auto) Urine Creatinine Urine Total Protein Lymph Enumerat CD4/CD8 % CD3 Cells Absolute CD3 Count % CD4 Cells Absolute CD4 Count % CD8 Cells Absolute CD8 Count Absolute CD19 Count HIV DNA Qual (PCR) HIV-1 RNA PCR copies/ml HIV-1 RNA (PCR) log Miscellaneous Test see below H Crossmatch 06/21/18 06/22/18 06/22/18 23:25 04:47 04:47 WBC 11.5 H RBC 2.93 L Hgb 9.0 L Hct 26.5 L MCV RDW Plt Count Seg Neuts % (Manual) Lymphocytes % (Manual) Seg Neutrophils # Man Abs Lymphs (Manual) Lymphocytes # (Manual) PT INR D-Dimer POC ABG pH POC ABG pCO2 POC ABG pO2 Sodium Potassium Chloride Carbon Dioxide BUN 22 H Creatinine Glucose 201 H POC Glucose 152 H Calcium 7.8 L AST 129 H ALT 416 H C-Reactive Protein Total Protein 5.3 L Albumin 2.4 L Triglycerides Ur Specific [place] Urine WBC (Auto) Urine Creatinine Urine Total Protein Lymph Enumerat CD4/CD8 % CD3 Cells Absolute CD3 Count % CD4 Cells Absolute CD4 Count % CD8 Cells Absolute CD8 Count Absolute CD19 Count HIV DNA Qual (PCR) HIV-1 RNA PCR copies/ml HIV-1 RNA (PCR) log Miscellaneous Test Crossmatch 06/22/18 06/22/18 06/22/18 05:23 11:43 17:45 WBC RBC Hgb Hct MCV RDW Plt Count Seg Neuts % (Manual) Lymphocytes % (Manual) Seg Neutrophils # Man Abs Lymphs (Manual) Lymphocytes # (Manual) PT INR D-Dimer POC ABG pH POC ABG pCO2 POC ABG pO2 Sodium Potassium Chloride Carbon Dioxide BUN Creatinine Glucose POC Glucose 170 H 175 H 176 H Calcium AST ALT C-Reactive Protein Total Protein Albumin Triglycerides Ur Specific [place] Urine WBC (Auto) Urine Creatinine Urine Total Protein Lymph Enumerat CD4/CD8 % CD3 Cells Absolute CD3 Count % CD4 Cells Absolute CD4 Count % CD8 Cells Absolute CD8 Count Absolute CD19 Count HIV DNA Qual (PCR) HIV-1 RNA PCR copies/ml HIV-1 RNA (PCR) log Miscellaneous Test Crossmatch 06/23/18 06/23/18 06/23/18 00:24 05:06 05:11 WBC 11.2 H RBC 2.78 L Hgb 8.6 L Hct 25.3 L MCV RDW Plt Count Seg Neuts % (Manual) Lymphocytes % (Manual) Seg Neutrophils # Man Abs Lymphs (Manual) Lymphocytes # (Manual) PT INR D-Dimer POC ABG pH POC ABG pCO2 POC ABG pO2 Sodium Potassium Chloride Carbon Dioxide BUN Creatinine Glucose POC Glucose 178 H 182 H Calcium AST ALT C-Reactive Protein Total Protein Albumin Triglycerides Ur Specific [place] Urine WBC (Auto) Urine Creatinine Urine Total Protein Lymph Enumerat CD4/CD8 % CD3 Cells Absolute CD3 Count % CD4 Cells Absolute CD4 Count % CD8 Cells Absolute CD8 Count Absolute CD19 Count HIV DNA Qual (PCR) HIV-1 RNA PCR copies/ml HIV-1 RNA (PCR) log Miscellaneous Test Crossmatch 06/23/18 06/23/18 06/23/18 05:11 05:51 12:21 WBC RBC Hgb Hct MCV RDW Plt Count Seg Neuts % (Manual) Lymphocytes % (Manual) Seg Neutrophils # Man Abs Lymphs (Manual) Lymphocytes # (Manual) PT INR D-Dimer POC ABG pH POC ABG pCO2 POC ABG pO2 69 L Sodium Potassium Chloride Carbon Dioxide BUN 34 H Creatinine 1.7 H D Glucose 191 H POC Glucose 181 H Calcium 7.5 L AST 63 H ALT 297 H C-Reactive Protein Total Protein 5.3 L Albumin 2.4 L Triglycerides Ur Specific [place] Urine WBC (Auto) Urine Creatinine Urine Total Protein Lymph Enumerat CD4/CD8 % CD3 Cells Absolute CD3 Count % CD4 Cells Absolute CD4 Count % CD8 Cells Absolute CD8 Count Absolute CD19 Count HIV DNA Qual (PCR) HIV-1 RNA PCR copies/ml HIV-1 RNA (PCR) log Miscellaneous Test Crossmatch 06/23/18 06/23/18 06/23/18 13:57 17:00 18:40 WBC RBC Hgb Hct MCV RDW Plt Count Seg Neuts % (Manual) Lymphocytes % (Manual) Seg Neutrophils # Man Abs Lymphs (Manual) Lymphocytes # (Manual) PT INR D-Dimer POC ABG pH POC ABG pCO2 POC ABG pO2 Sodium Potassium Chloride Carbon Dioxide BUN 38 H Creatinine 1.8 H Glucose POC Glucose 196 H Calcium AST ALT C-Reactive Protein 1.60 H Total Protein Albumin Triglycerides Ur Specific [place] Urine WBC (Auto) Urine Creatinine Urine Total Protein Lymph Enumerat CD4/CD8 % CD3 Cells Absolute CD3 Count % CD4 Cells Absolute CD4 Count % CD8 Cells Absolute CD8 Count Absolute CD19 Count HIV DNA Qual (PCR) HIV-1 RNA PCR copies/ml HIV-1 RNA (PCR) log Miscellaneous Test Crossmatch 06/23/18 06/23/18 06/24/18 21:16 23:22 04:12 WBC RBC 2.89 L Hgb 8.8 L Hct 26.9 L MCV RDW Plt Count Seg Neuts % (Manual) Lymphocytes % (Manual) Seg Neutrophils # Man Abs Lymphs (Manual) Lymphocytes # (Manual) PT INR D-Dimer POC ABG pH 7.311 L POC ABG pCO2 47.4 H POC ABG pO2 Sodium Potassium Chloride Carbon Dioxide BUN Creatinine Glucose POC Glucose 165 H Calcium AST ALT C-Reactive Protein Total Protein Albumin Triglycerides Ur Specific [place] Urine WBC (Auto) Urine Creatinine Urine Total Protein Lymph Enumerat CD4/CD8 % CD3 Cells Absolute CD3 Count % CD4 Cells Absolute CD4 Count % CD8 Cells Absolute CD8 Count Absolute CD19 Count HIV DNA Qual (PCR) HIV-1 RNA PCR copies/ml HIV-1 RNA (PCR) log Miscellaneous Test Crossmatch 06/24/18 06/24/18 06/24/18 04:12 04:46 05:24 WBC RBC Hgb Hct MCV RDW Plt Count Seg Neuts % (Manual) Lymphocytes % (Manual) Seg Neutrophils # Man Abs Lymphs (Manual) Lymphocytes # (Manual) PT INR D-Dimer POC ABG pH 7.250 L POC ABG pCO2 55.8 H POC ABG pO2 Sodium Potassium 5.4 H Chloride Carbon Dioxide BUN 44 H Creatinine 2.2 H Glucose 206 H POC Glucose 183 H Calcium 7.5 L AST ALT C-Reactive Protein Total Protein Albumin Triglycerides Ur Specific [place] Urine WBC (Auto) Urine Creatinine Urine Total Protein Lymph Enumerat CD4/CD8 % CD3 Cells Absolute CD3 Count % CD4 Cells Absolute CD4 Count % CD8 Cells Absolute CD8 Count Absolute CD19 Count HIV DNA Qual (PCR) HIV-1 RNA PCR copies/ml HIV-1 RNA (PCR) log Miscellaneous Test Crossmatch 06/24/18 06/24/18 06/24/18 11:14 16:40 17:16 WBC RBC Hgb Hct MCV RDW Plt Count Seg Neuts % (Manual) Lymphocytes % (Manual) Seg Neutrophils # Man Abs Lymphs (Manual) Lymphocytes # (Manual) PT INR D-Dimer POC ABG pH 7.067 L POC ABG pCO2 91.7 H POC ABG pO2 134 H Sodium Potassium Chloride Carbon Dioxide BUN Creatinine Glucose POC Glucose 151 H 195 H Calcium AST ALT C-Reactive Protein Total Protein Albumin Triglycerides Ur Specific [place] Urine WBC (Auto) Urine Creatinine Urine Total Protein Lymph Enumerat CD4/CD8 % CD3 Cells Absolute CD3 Count % CD4 Cells Absolute CD4 Count % CD8 Cells Absolute CD8 Count Absolute CD19 Count HIV DNA Qual (PCR) HIV-1 RNA PCR copies/ml HIV-1 RNA (PCR) log Miscellaneous Test Crossmatch 06/24/18 06/24/18 06/24/18 18:03 22:45 22:45 WBC RBC Hgb Hct MCV RDW Plt Count Seg Neuts % (Manual) Lymphocytes % (Manual) Seg Neutrophils # Man Abs Lymphs (Manual) Lymphocytes # (Manual) PT INR D-Dimer POC ABG pH 7.234 L POC ABG pCO2 59.9 H POC ABG pO2 121 H Sodium Potassium Chloride Carbon Dioxide BUN Creatinine Glucose POC Glucose Calcium AST ALT C-Reactive Protein Total Protein Albumin Triglycerides Ur Specific [place] Urine WBC (Auto) 9.0 H Urine Creatinine 47.2 H Urine Total Protein 25 H Lymph Enumerat CD4/CD8 % CD3 Cells Absolute CD3 Count % CD4 Cells Absolute CD4 Count % CD8 Cells Absolute CD8 Count Absolute CD19 Count HIV DNA Qual (PCR) HIV-1 RNA PCR copies/ml HIV-1 RNA (PCR) log Miscellaneous Test Crossmatch 06/24/18 06/24/18 06/25/18 Unknown 23:59 04:36 WBC RBC Hgb Hct MCV RDW Plt Count Seg Neuts % (Manual) Lymphocytes % (Manual) Seg Neutrophils # Man Abs Lymphs (Manual) Lymphocytes # (Manual) PT 15.6 H INR 1.17 H D-Dimer POC ABG pH 7.200 L POC ABG pCO2 65.3 H POC ABG pO2 Sodium Potassium Chloride Carbon Dioxide BUN Creatinine Glucose POC Glucose 233 H Calcium AST ALT C-Reactive Protein Total Protein Albumin Triglycerides Ur Specific [place] Urine WBC (Auto) Urine Creatinine Urine Total Protein Lymph Enumerat CD4/CD8 % CD3 Cells Absolute CD3 Count % CD4 Cells Absolute CD4 Count % CD8 Cells Absolute CD8 Count Absolute CD19 Count HIV DNA Qual (PCR) HIV-1 RNA PCR copies/ml HIV-1 RNA (PCR) log Miscellaneous Test Crossmatch 06/25/18 06/25/18 06/25/18 05:29 11:12 11:40 WBC RBC 2.67 L Hgb 8.5 L Hct 25.6 L MCV 96 H RDW 16.0 H Plt Count Seg Neuts % (Manual) Lymphocytes % (Manual) Seg Neutrophils # Man Abs Lymphs (Manual) Lymphocytes # (Manual) PT INR D-Dimer POC ABG pH POC ABG pCO2 POC ABG pO2 Sodium Potassium Chloride Carbon Dioxide BUN Creatinine Glucose POC Glucose 212 H 244 H Calcium AST ALT C-Reactive Protein Total Protein Albumin Triglycerides Ur Specific [place] Urine WBC (Auto) Urine Creatinine Urine Total Protein Lymph Enumerat CD4/CD8 % CD3 Cells Absolute CD3 Count % CD4 Cells Absolute CD4 Count % CD8 Cells Absolute CD8 Count Absolute CD19 Count HIV DNA Qual (PCR) HIV-1 RNA PCR copies/ml HIV-1 RNA (PCR) log Miscellaneous Test Crossmatch 06/25/18 06/25/18 06/25/18 11:40 17:18 18:08 WBC RBC Hgb Hct MCV RDW Plt Count Seg Neuts % (Manual) Lymphocytes % (Manual) Seg Neutrophils # Man Abs Lymphs (Manual) Lymphocytes # (Manual) PT INR D-Dimer POC ABG pH 7.206 L POC ABG pCO2 68.1 H POC ABG pO2 Sodium Potassium 5.8 H Chloride Carbon Dioxide BUN 48 H Creatinine 2.1 H Glucose 293 H POC Glucose 264 H Calcium 7.5 L AST ALT C-Reactive Protein Total Protein Albumin Triglycerides Ur Specific [place] Urine WBC (Auto) Urine Creatinine Urine Total Protein Lymph Enumerat CD4/CD8 % CD3 Cells Absolute CD3 Count % CD4 Cells Absolute CD4 Count % CD8 Cells Absolute CD8 Count Absolute CD19 Count HIV DNA Qual (PCR) HIV-1 RNA PCR copies/ml HIV-1 RNA (PCR) log Miscellaneous Test Crossmatch 06/25/18 06/25/18 06/26/18 21:20 23:59 05:10 WBC RBC Hgb Hct MCV RDW Plt Count Seg Neuts % (Manual) Lymphocytes % (Manual) Seg Neutrophils # Man Abs Lymphs (Manual) Lymphocytes # (Manual) PT INR D-Dimer POC ABG pH 7.220 L POC ABG pCO2 65.0 H POC ABG pO2 71 L Sodium Potassium Chloride Carbon Dioxide BUN Creatinine Glucose POC Glucose 231 H 259 H Calcium AST ALT C-Reactive Protein Total Protein Albumin Triglycerides Ur Specific [place] Urine WBC (Auto) Urine Creatinine Urine Total Protein Lymph Enumerat CD4/CD8 % CD3 Cells Absolute CD3 Count % CD4 Cells Absolute CD4 Count % CD8 Cells Absolute CD8 Count Absolute CD19 Count HIV DNA Qual (PCR) HIV-1 RNA PCR copies/ml HIV-1 RNA (PCR) log Miscellaneous Test Crossmatch 06/26/18 06/26/18 06/26/18 05:29 07:25 07:25 WBC 12.0 H RBC 2.69 L Hgb 8.2 L Hct 25.5 L MCV 95 H RDW 15.7 H Plt Count Seg Neuts % (Manual) Lymphocytes % (Manual) Seg Neutrophils # Man Abs Lymphs (Manual) Lymphocytes # (Manual) PT INR D-Dimer POC ABG pH 7.240 L POC ABG pCO2 67.6 H POC ABG pO2 106 H Sodium Potassium 5.2 H Chloride Carbon Dioxide BUN 58 H Creatinine 1.9 H Glucose 219 H POC Glucose Calcium 7.9 L AST ALT C-Reactive Protein Total Protein Albumin Triglycerides Ur Specific [place] Urine WBC (Auto) Urine Creatinine Urine Total Protein Lymph Enumerat CD4/CD8 % CD3 Cells Absolute CD3 Count % CD4 Cells Absolute CD4 Count % CD8 Cells Absolute CD8 Count Absolute CD19 Count HIV DNA Qual (PCR) HIV-1 RNA PCR copies/ml HIV-1 RNA (PCR) log Miscellaneous Test Crossmatch 06/26/18 06/26/18 06/26/18 07:25 12:49 17:42 WBC RBC Hgb Hct MCV RDW Plt Count Seg Neuts % (Manual) Lymphocytes % (Manual) Seg Neutrophils # Man Abs Lymphs (Manual) Lymphocytes # (Manual) PT INR D-Dimer POC ABG pH 7.178 L POC ABG pCO2 73.6 H POC ABG pO2 77 L Sodium Potassium Chloride Carbon Dioxide BUN Creatinine Glucose POC Glucose 276 H Calcium AST ALT C-Reactive Protein Total Protein Albumin Triglycerides 174 H Ur Specific [place] Urine WBC (Auto) Urine Creatinine Urine Total Protein Lymph Enumerat CD4/CD8 % CD3 Cells Absolute CD3 Count % CD4 Cells Absolute CD4 Count % CD8 Cells Absolute CD8 Count Absolute CD19 Count HIV DNA Qual (PCR) HIV-1 RNA PCR copies/ml HIV-1 RNA (PCR) log Miscellaneous Test Crossmatch 06/26/18 06/26/18 06/26/18 18:25 21:24 23:22 WBC RBC Hgb Hct MCV RDW Plt Count Seg Neuts % (Manual) Lymphocytes % (Manual) Seg Neutrophils # Man Abs Lymphs (Manual) Lymphocytes # (Manual) PT INR D-Dimer POC ABG pH 7.152 L POC ABG pCO2 80.6 H POC ABG pO2 Sodium Potassium Chloride Carbon Dioxide BUN Creatinine Glucose POC Glucose 304 H 282 H Calcium AST ALT C-Reactive Protein Total Protein Albumin Triglycerides Ur Specific [place] Urine WBC (Auto) Urine Creatinine Urine Total Protein Lymph Enumerat CD4/CD8 % CD3 Cells Absolute CD3 Count % CD4 Cells Absolute CD4 Count % CD8 Cells Absolute CD8 Count Absolute CD19 Count HIV DNA Qual (PCR) HIV-1 RNA PCR copies/ml HIV-1 RNA (PCR) log Miscellaneous Test Crossmatch 06/27/18 06/27/18 06/27/18 04:05 05:15 05:15 WBC RBC Hgb Hct MCV RDW Plt Count Seg Neuts % (Manual) Lymphocytes % (Manual) Seg Neutrophils # Man Abs Lymphs (Manual) Lymphocytes # (Manual) PT INR D-Dimer POC ABG pH 7.266 L POC ABG pCO2 62.8 H POC ABG pO2 Sodium Potassium 5.5 H Chloride Carbon Dioxide BUN 73 H Creatinine 2.1 H Glucose 211 H POC Glucose Calcium 7.7 L AST ALT C-Reactive Protein Total Protein Albumin Triglycerides Ur Specific [place] Urine WBC (Auto) Urine Creatinine Urine Total Protein Lymph Enumerat CD4/CD8 % CD3 Cells Absolute CD3 Count % CD4 Cells Absolute CD4 Count % CD8 Cells Absolute CD8 Count Absolute CD19 Count HIV DNA Qual (PCR) HIV-1 RNA PCR copies/ml HIV-1 RNA (PCR) log Miscellaneous Test Flexitest 1 H Crossmatch 06/27/18 06/27/18 06/27/18 05:15 05:52 13:10 WBC RBC 2.41 L Hgb 7.6 L Hct 22.4 L MCV RDW Plt Count Seg Neuts % (Manual) Lymphocytes % (Manual) Seg Neutrophils # Man Abs Lymphs (Manual) Lymphocytes # (Manual) PT INR D-Dimer POC ABG pH POC ABG pCO2 POC ABG pO2 Sodium Potassium Chloride Carbon Dioxide BUN Creatinine Glucose POC Glucose 198 H 238 H Calcium AST ALT C-Reactive Protein Total Protein Albumin Triglycerides Ur Specific [place] Urine WBC (Auto) Urine Creatinine Urine Total Protein Lymph Enumerat CD4/CD8 % CD3 Cells Absolute CD3 Count % CD4 Cells Absolute CD4 Count % CD8 Cells Absolute CD8 Count Absolute CD19 Count HIV DNA Qual (PCR) HIV-1 RNA PCR copies/ml HIV-1 RNA (PCR) log Miscellaneous Test Crossmatch 06/27/18 06/27/18 06/27/18 16:12 17:51 23:22 WBC RBC Hgb Hct MCV RDW Plt Count Seg Neuts % (Manual) Lymphocytes % (Manual) Seg Neutrophils # Man Abs Lymphs (Manual) Lymphocytes # (Manual) PT INR D-Dimer POC ABG pH POC ABG pCO2 POC ABG pO2 Sodium Potassium Chloride Carbon Dioxide BUN Creatinine Glucose POC Glucose 174 H 162 H 171 H Calcium AST ALT C-Reactive Protein Total Protein Albumin Triglycerides Ur Specific [place] Urine WBC (Auto) Urine Creatinine Urine Total Protein Lymph Enumerat CD4/CD8 % CD3 Cells Absolute CD3 Count % CD4 Cells Absolute CD4 Count % CD8 Cells Absolute CD8 Count Absolute CD19 Count HIV DNA Qual (PCR) HIV-1 RNA PCR copies/ml HIV-1 RNA (PCR) log Miscellaneous Test Crossmatch 06/28/18 06/28/18 06/28/18 04:36 04:54 05:10 WBC RBC Hgb Hct MCV RDW Plt Count Seg Neuts % (Manual) Lymphocytes % (Manual) Seg Neutrophils # Man Abs Lymphs (Manual) Lymphocytes # (Manual) PT INR D-Dimer POC ABG pH 7.257 L POC ABG pCO2 68.8 H POC ABG pO2 Sodium Potassium Chloride Carbon Dioxide BUN 93 H Creatinine 2.4 H Glucose 186 H POC Glucose 193 H Calcium 8.3 L AST ALT C-Reactive Protein Total Protein Albumin Triglycerides Ur Specific [place] Urine WBC (Auto) Urine Creatinine Urine Total Protein Lymph Enumerat CD4/CD8 % CD3 Cells Absolute CD3 Count % CD4 Cells Absolute CD4 Count % CD8 Cells Absolute CD8 Count Absolute CD19 Count HIV DNA Qual (PCR) HIV-1 RNA PCR copies/ml HIV-1 RNA (PCR) log Miscellaneous Test Crossmatch 06/28/18 06/28/18 06/28/18 12:15 17:43 18:26 WBC RBC Hgb Hct MCV RDW Plt Count Seg Neuts % (Manual) Lymphocytes % (Manual) Seg Neutrophils # Man Abs Lymphs (Manual) Lymphocytes # (Manual) PT INR D-Dimer POC ABG pH 7.123 L POC ABG pCO2 82.7 H POC ABG pO2 Sodium Potassium Chloride Carbon Dioxide BUN Creatinine Glucose POC Glucose 154 H 194 H Calcium AST ALT C-Reactive Protein Total Protein Albumin Triglycerides Ur Specific [place] Urine WBC (Auto) Urine Creatinine Urine Total Protein Lymph Enumerat CD4/CD8 % CD3 Cells Absolute CD3 Count % CD4 Cells Absolute CD4 Count % CD8 Cells Absolute CD8 Count Absolute CD19 Count HIV DNA Qual (PCR) HIV-1 RNA PCR copies/ml HIV-1 RNA (PCR) log Miscellaneous Test Crossmatch 06/28/18 06/29/18 06/29/18 22:08 00:12 04:38 WBC RBC Hgb Hct MCV RDW Plt Count Seg Neuts % (Manual) Lymphocytes % (Manual) Seg Neutrophils # Man Abs Lymphs (Manual) Lymphocytes # (Manual) PT INR D-Dimer POC ABG pH 7.172 L 7.158 L POC ABG pCO2 80.4 H 76.6 H POC ABG pO2 143 H Sodium Potassium Chloride Carbon Dioxide BUN Creatinine Glucose POC Glucose 202 H Calcium AST ALT C-Reactive Protein Total Protein Albumin Triglycerides Ur Specific [place] Urine WBC (Auto) Urine Creatinine Urine Total Protein Lymph Enumerat CD4/CD8 % CD3 Cells Absolute CD3 Count % CD4 Cells Absolute CD4 Count % CD8 Cells Absolute CD8 Count Absolute CD19 Count HIV DNA Qual (PCR) HIV-1 RNA PCR copies/ml HIV-1 RNA (PCR) log Miscellaneous Test Crossmatch 06/29/18 06/29/18 06/29/18 05:15 05:15 05:32 WBC 12.3 H RBC 1.93 L Hgb 5.9 L* Hct 18.2 L* MCV 95 H RDW Plt Count 127 L Seg Neuts % (Manual) Lymphocytes % (Manual) Seg Neutrophils # Man Abs Lymphs (Manual) Lymphocytes # (Manual) PT INR D-Dimer POC ABG pH POC ABG pCO2 POC ABG pO2 Sodium 136 L Potassium 5.9 H Chloride 94.3 L Carbon Dioxide BUN 139 H Creatinine 4.2 H D Glucose 157 H POC Glucose 150 H Calcium 8.2 L AST ALT C-Reactive Protein Total Protein Albumin Triglycerides Ur Specific [place] Urine WBC (Auto) Urine Creatinine Urine Total Protein Lymph Enumerat CD4/CD8 % CD3 Cells Absolute CD3 Count % CD4 Cells Absolute CD4 Count % CD8 Cells Absolute CD8 Count Absolute CD19 Count HIV DNA Qual (PCR) HIV-1 RNA PCR copies/ml HIV-1 RNA (PCR) log Miscellaneous Test Crossmatch 06/29/18 06/29/18 06/29/18 08:07 09:50 11:55 WBC RBC Hgb 6.0 L Hct 18.4 L* MCV RDW Plt Count Seg Neuts % (Manual) Lymphocytes % (Manual) Seg Neutrophils # Man Abs Lymphs (Manual) Lymphocytes # (Manual) PT INR D-Dimer POC ABG pH POC ABG pCO2 POC ABG pO2 Sodium Potassium Chloride Carbon Dioxide BUN Creatinine Glucose POC Glucose 236 H Calcium AST ALT C-Reactive Protein Total Protein Albumin Triglycerides Ur Specific [place] Urine WBC (Auto) Urine Creatinine Urine Total Protein Lymph Enumerat CD4/CD8 % CD3 Cells Absolute CD3 Count % CD4 Cells Absolute CD4 Count % CD8 Cells Absolute CD8 Count Absolute CD19 Count HIV DNA Qual (PCR) HIV-1 RNA PCR copies/ml HIV-1 RNA (PCR) log Miscellaneous Test Crossmatch See Detail 06/29/18 06/30/18 06/30/18 18:29 00:08 04:47 WBC RBC Hgb Hct MCV RDW Plt Count Seg Neuts % (Manual) Lymphocytes % (Manual) Seg Neutrophils # Man Abs Lymphs (Manual) Lymphocytes # (Manual) PT INR D-Dimer POC ABG pH 7.182 L POC ABG pCO2 67.7 H POC ABG pO2 Sodium Potassium Chloride Carbon Dioxide BUN Creatinine Glucose POC Glucose 171 H 159 H Calcium AST ALT C-Reactive Protein Total Protein Albumin Triglycerides Ur Specific [place] Urine WBC (Auto) Urine Creatinine Urine Total Protein Lymph Enumerat CD4/CD8 % CD3 Cells Absolute CD3 Count % CD4 Cells Absolute CD4 Count % CD8 Cells Absolute CD8 Count Absolute CD19 Count HIV DNA Qual (PCR) HIV-1 RNA PCR copies/ml HIV-1 RNA (PCR) log Miscellaneous Test Crossmatch 06/30/18 06/30/18 06/30/18 05:07 06:00 12:43 WBC 18.2 H RBC 2.43 L Hgb 7.4 L Hct 22.0 L MCV RDW 15.3 H Plt Count 111 L Seg Neuts % (Manual) Lymphocytes % (Manual) Seg Neutrophils # Man Abs Lymphs (Manual) Lymphocytes # (Manual) PT INR D-Dimer POC ABG pH POC ABG pCO2 POC ABG pO2 Sodium Potassium Chloride Carbon Dioxide BUN Creatinine Glucose POC Glucose 162 H 153 H Calcium AST ALT C-Reactive Protein Total Protein Albumin Triglycerides Ur Specific [place] Urine WBC (Auto) Urine Creatinine Urine Total Protein Lymph Enumerat CD4/CD8 % CD3 Cells Absolute CD3 Count % CD4 Cells Absolute CD4 Count % CD8 Cells Absolute CD8 Count Absolute CD19 Count HIV DNA Qual (PCR) HIV-1 RNA PCR copies/ml HIV-1 RNA (PCR) log Miscellaneous Test Crossmatch 06/30/18 06/30/18 07/01/18 18:07 Unknown 00:06 WBC RBC Hgb Hct MCV RDW Plt Count Seg Neuts % (Manual) Lymphocytes % (Manual) Seg Neutrophils # Man Abs Lymphs (Manual) Lymphocytes # (Manual) PT INR D-Dimer POC ABG pH POC ABG pCO2 POC ABG pO2 Sodium Potassium 5.9 H Chloride 95.5 L Carbon Dioxide BUN 164 H Creatinine 5.2 H Glucose 151 H POC Glucose 183 H 208 H Calcium 7.6 L AST ALT C-Reactive Protein Total Protein Albumin Triglycerides 223 H Ur Specific [place] Urine WBC (Auto) Urine Creatinine Urine Total Protein Lymph Enumerat CD4/CD8 % CD3 Cells Absolute CD3 Count % CD4 Cells Absolute CD4 Count % CD8 Cells Absolute CD8 Count Absolute CD19 Count HIV DNA Qual (PCR) HIV-1 RNA PCR copies/ml HIV-1 RNA (PCR) log Miscellaneous Test Crossmatch 07/01/18 07/01/18 07/01/18 04:47 05:43 06:00 WBC RBC Hgb Hct MCV RDW Plt Count Seg Neuts % (Manual) Lymphocytes % (Manual) Seg Neutrophils # Man Abs Lymphs (Manual) Lymphocytes # (Manual) PT INR D-Dimer POC ABG pH 7.060 L POC ABG pCO2 121.0 H POC ABG pO2 Sodium Potassium 5.8 H Chloride 94.1 L Carbon Dioxide BUN 144 H Creatinine 3.1 H Glucose 208 H POC Glucose 214 H Calcium 6.7 L AST ALT C-Reactive Protein Total Protein Albumin Triglycerides Ur Specific [place] Urine WBC (Auto) Urine Creatinine Urine Total Protein Lymph Enumerat CD4/CD8 % CD3 Cells Absolute CD3 Count % CD4 Cells Absolute CD4 Count % CD8 Cells Absolute CD8 Count Absolute CD19 Count HIV DNA Qual (PCR) HIV-1 RNA PCR copies/ml HIV-1 RNA (PCR) log Miscellaneous Test Crossmatch 07/01/18 07/01/18 07/01/18 06:00 06:52 10:00 WBC 17.9 H RBC 2.14 L Hgb 6.5 L 6.6 L Hct 20.0 L 20.5 L MCV RDW 15.9 H Plt Count 94 L Seg Neuts % (Manual) Lymphocytes % (Manual) Seg Neutrophils # Man Abs Lymphs (Manual) Lymphocytes # (Manual) PT INR D-Dimer 2387.14 H POC ABG pH POC ABG pCO2 POC ABG pO2 Sodium Potassium Chloride Carbon Dioxide BUN Creatinine Glucose POC Glucose Calcium AST ALT C-Reactive Protein Total Protein Albumin Triglycerides Ur Specific [place] Urine WBC (Auto) Urine Creatinine Urine Total Protein Lymph Enumerat CD4/CD8 % CD3 Cells Absolute CD3 Count % CD4 Cells Absolute CD4 Count % CD8 Cells Absolute CD8 Count Absolute CD19 Count HIV DNA Qual (PCR) HIV-1 RNA PCR copies/ml HIV-1 RNA (PCR) log Miscellaneous Test Crossmatch 07/01/18 07/01/18 07/01/18 11:11 11:41 18:38 WBC RBC Hgb Hct MCV RDW Plt Count Seg Neuts % (Manual) Lymphocytes % (Manual) Seg Neutrophils # Man Abs Lymphs (Manual) Lymphocytes # (Manual) PT INR D-Dimer POC ABG pH 7.151 L 7.168 L POC ABG pCO2 100.4 H 109.4 H POC ABG pO2 151 H 199 H Sodium Potassium Chloride Carbon Dioxide BUN Creatinine Glucose POC Glucose 213 H Calcium AST ALT C-Reactive Protein Total Protein Albumin Triglycerides Ur Specific [place] Urine WBC (Auto) Urine Creatinine Urine Total Protein Lymph Enumerat CD4/CD8 % CD3 Cells Absolute CD3 Count % CD4 Cells Absolute CD4 Count % CD8 Cells Absolute CD8 Count Absolute CD19 Count HIV DNA Qual (PCR) HIV-1 RNA PCR copies/ml HIV-1 RNA (PCR) log Miscellaneous Test Crossmatch 07/01/18 07/02/18 07/02/18 23:40 04:32 04:32 WBC 14.8 H RBC 2.68 L Hgb 8.1 L Hct 23.8 L MCV RDW Plt Count 81 L Seg Neuts % (Manual) Lymphocytes % (Manual) Seg Neutrophils # Man Abs Lymphs (Manual) Lymphocytes # (Manual) PT INR D-Dimer POC ABG pH POC ABG pCO2 POC ABG pO2 Sodium 151 H D Potassium 3.1 L D Chloride Carbon Dioxide 39 H D BUN 108 H Creatinine 1.8 H Glucose 44 L POC Glucose < 40 L Calcium 6.6 L AST ALT C-Reactive Protein Total Protein Albumin Triglycerides Ur Specific [place] Urine WBC (Auto) Urine Creatinine Urine Total Protein Lymph Enumerat CD4/CD8 % CD3 Cells Absolute CD3 Count % CD4 Cells Absolute CD4 Count % CD8 Cells Absolute CD8 Count Absolute CD19 Count HIV DNA Qual (PCR) HIV-1 RNA PCR copies/ml HIV-1 RNA (PCR) log Miscellaneous Test Crossmatch 07/02/18 07/02/18 07/02/18 05:00 05:12 11:54 WBC RBC Hgb Hct MCV RDW Plt Count Seg Neuts % (Manual) Lymphocytes % (Manual) Seg Neutrophils # Man Abs Lymphs (Manual) Lymphocytes # (Manual) PT INR D-Dimer POC ABG pH 7.319 L POC ABG pCO2 89.8 H POC ABG pO2 119 H Sodium Potassium Chloride Carbon Dioxide BUN Creatinine Glucose POC Glucose < 40 L < 40 L Calcium AST ALT C-Reactive Protein Total Protein Albumin Triglycerides Ur Specific [place] Urine WBC (Auto) Urine Creatinine Urine Total Protein Lymph Enumerat CD4/CD8 % CD3 Cells Absolute CD3 Count % CD4 Cells Absolute CD4 Count % CD8 Cells Absolute CD8 Count Absolute CD19 Count HIV DNA Qual (PCR) HIV-1 RNA PCR copies/ml HIV-1 RNA (PCR) log Miscellaneous Test Crossmatch 07/02/18 07/03/18 07/03/18 14:09 00:17 04:28 WBC RBC Hgb Hct MCV RDW Plt Count Seg Neuts % (Manual) Lymphocytes % (Manual) Seg Neutrophils # Man Abs Lymphs (Manual) Lymphocytes # (Manual) PT INR D-Dimer POC ABG pH 7.267 L POC ABG pCO2 93.3 H POC ABG pO2 69 L Sodium Potassium Chloride Carbon Dioxide BUN Creatinine Glucose POC Glucose 53 L 69 L Calcium AST ALT C-Reactive Protein Total Protein Albumin Triglycerides Ur Specific [place] Urine WBC (Auto) Urine Creatinine Urine Total Protein Lymph Enumerat CD4/CD8 % CD3 Cells Absolute CD3 Count % CD4 Cells Absolute CD4 Count % CD8 Cells Absolute CD8 Count Absolute CD19 Count HIV DNA Qual (PCR) HIV-1 RNA PCR copies/ml HIV-1 RNA (PCR) log Miscellaneous Test Crossmatch 07/03/18 07/03/18 07/03/18 05:00 05:00 05:16 WBC RBC 2.23 L Hgb 7.0 L Hct 20.3 L MCV RDW Plt Count 81 L Seg Neuts % (Manual) Lymphocytes % (Manual) Seg Neutrophils # Man Abs Lymphs (Manual) Lymphocytes # (Manual) PT INR D-Dimer POC ABG pH POC ABG pCO2 POC ABG pO2 Sodium 155 H Potassium 3.3 L Chloride Carbon Dioxide 40 H BUN 94 H Creatinine 1.7 H Glucose 115 H POC Glucose 113 H Calcium 6.9 L AST ALT C-Reactive Protein Total Protein Albumin Triglycerides Ur Specific [place] Urine WBC (Auto) Urine Creatinine Urine Total Protein Lymph Enumerat CD4/CD8 % CD3 Cells Absolute CD3 Count % CD4 Cells Absolute CD4 Count % CD8 Cells Absolute CD8 Count Absolute CD19 Count HIV DNA Qual (PCR) HIV-1 RNA PCR copies/ml HIV-1 RNA (PCR) log Miscellaneous Test Crossmatch Allied health notes reviewed: nursing
[2018-07-03] MEDS ORDERED: POTASSIUM CHLORIDE FEEDTUBE ONE (09:00)
--- NOTE | 2018-07-03 09:43 | Progress Note ---
Assessment and Plan Cultures: 06/19/2018 blood culture: no growth 06/19/2018 tracheal aspirate: usual resp david/ Rothia mucilaginosa 06/19/2018 fungal blood culture: no growth 06/20/2018 Serum CrAg: negative Cytology PJP stain negative GMS stain showed septated fungal hyphae with acute angle branching and yeast forms c/w Aspergillus, Fusarium, Scedosporium and other Dematiaceous fungi. DFA showed rare PJP CMV DNA PCR 06/19/2018 13,166 BAL 06/25/2018 Tigist albicans A/P: 32/M with: #1 Bilateral pneumonia: Extensive bilateral ground glass opacities and pneumonia with severe hypoxia. Unclear etiology ? PJP versus invasive fungal versus disseminated CMV. 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 Lung cytology GMS stain showed septated fungal hyphae with acute angle branching and yeast forms c/w Aspergillus, Fusarium, Scedosporium and other Dematiaceous fungi. 06/19/2018 tracheal aspirate showed usual resp david/ Rothia mucilaginosa. 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 patient has been on bactrim IV for 5 days and IV voriconazole for 4 days witouht any improvement on vent setting still at FiO2 70% p12. - S/P bronch/BAL - pending - s/p voriconazole x 4 days - no improvement, stopped on 06/25 - on amphothericin started on 06/25 - Serum CMV DNA PCR 06/19/2018 13,166 - BAL 06/25/2018 Tigist albicans likely a colonizer, AFB negative. - completed vancomycin renally dosed to cover Rothia D5 on 06/28 - Aspregillus ag negative #2 Acute respiratory failure: Requiring mechanical ventilation.Improving FIo2 70% -->60--> 50 --> 60% p 15 -->12 #3 HIV, likely AIDS:CD4=10 / VL 1,300,000 copies #4 Sepsis: Likely secondary to above. #5 JENNIFER: better today, all renally adjusted #6 Sepsis with septic shock: still high grade fever, off levophed, still on vasopressine; likely from above ? sinusitis ? pneumonia #7 Epistaxis on 06/24/2018 s/p packing, resolved Recs: CT sinus and chest today check toxo Igg recheck serum CMV PCR f/u BAL/bronch f/u serum Galactomannan antigen, [id number] assay, histoplasma urine ag and cocci serology - all pending continue renally adjusted liposomal Amphothericin D9 - hopefully will stop soon once Galactomannan antigen, [id number] assay, histoplasma urine ag and cocci serology are back and neg continue ganciclovir D6 renally adjusted for disseminated CMV - discussed with pharmacy stop bactrim renally adjusted D15 and start mepron 750 mg PO BID as respiratory failure is better and renal is recovering continue azithromycin 1200 mg qweek for MAC prophylaxis F/u genotype Overall prognosis guarded due to septic shock, multi-organ failure, 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 Extensive team discussion with High Reach Operator, aunt, uncle and cousin about prognosis on 07/02/2018. Patient with no history of ETOH, drugs, tob, has 2 cats and 2 dogs, per family since his suddenly in March 2018 he was deppressed and fighting a dry cough for 3 months. He lost 30L weight in 3 months. Family is unaware of HIV diagnosis, it was not disclosed. Discussed with pharmacy Will follow Keke Manzo MD Infectious Diseases [employer] [facility] M [phone] O [phone] Subjective Date of service: 07/03/18 Principal diagnosis: Acute Hypoxemic Resp Failure; AIDS / HIV positive; Severe Sepsis due to PNA Interval history: Patient remains critically ill intubated on CMV FiO2 30%, p 10, off levophed and bicarb gtt, still vasopressin. Tmax 101.2 ROS unable to obtain Objective - Exam Narrative Exam: General appearance: sedated on the vent FIO2 30% p 10 Eyes: anicteric sclerae, moist conjunctivae; no lid-lag; PERRLA +conjunctivae edema shruthi HENT: Atraumatic; oropharynx +ETT. Neck: Trachea midline; supple, no thyromegaly or lymphadenopathy Lungs: shruthi loud rhonchi CV: tachycardic Abdomen: Soft, non-tender; no masses or hepatosplenomegaly Extremities: +marked shruthi arm edema / leg edema Skin: Normal temperature, turgor and texture; no rash, ulcers or subcutaneous nodules Psych: sedated. Neuro: sedated Rust Right IJ TLC - Constitutional Vitals: Vital Signs Temp Pulse Resp BP Pulse Ox 100.1 F H 108 H 27 H 112/67 90 07/03/18 07:33 07/03/18 06:00 07/03/18 06:00 07/03/18 06:00 07/03/18 06:00 Temperature -Last 24 Hours Temperature 100.1 F Temperature 100.5 F Temperature 101.2 F Temperature 100.5 F Temperature 102.5 F Temperature 101.6 F Temperature 100.5 F - Labs CBC & Chem 7: 07/03/18 05:00 07/03/18 05:00 Labs: Abnormal lab results 07/02/18 07/02/18 07/03/18 Range/Units 11:54 14:09 00:17 RBC (3.65-5.03) M/mm3 Hgb (11.8-15.2) gm/dl Hct (35.5-45.6) % Plt Count (140-440) K/mm3 POC ABG pH (7.35-7.45) POC ABG pCO2 (35-45) POC ABG pO2 (80-105) Sodium (137-145) mmol/L Potassium (3.6-5.0) mmol/L Carbon Dioxide (22-30) mmol/L BUN (9-20) mg/dL Creatinine (0.8-1.5) mg/dL Glucose (75-100) mg/dL POC Glucose < 40 L 53 L 69 L (70-105) Calcium (8.4-10.2) mg/dL 07/03/18 07/03/18 07/03/18 Range/Units 04:28 05:00 05:00 RBC 2.23 L (3.65-5.03) M/mm3 Hgb 7.0 L (11.8-15.2) gm/dl Hct 20.3 L (35.5-45.6) % Plt Count 81 L (140-440) K/mm3 POC ABG pH 7.267 L (7.35-7.45) POC ABG pCO2 93.3 H (35-45) POC ABG pO2 69 L (80-105) Sodium 155 H (137-145) mmol/L Potassium 3.3 L (3.6-5.0) mmol/L Carbon Dioxide 40 H (22-30) mmol/L BUN 94 H (9-20) mg/dL Creatinine 1.7 H (0.8-1.5) mg/dL Glucose 115 H (75-100) mg/dL POC Glucose (70-105) Calcium 6.9 L (8.4-10.2) mg/dL 07/03/18 Range/Units 05:16 RBC (3.65-5.03) M/mm3 Hgb (11.8-15.2) gm/dl Hct (35.5-45.6) % Plt Count (140-440) K/mm3 POC ABG pH (7.35-7.45) POC ABG pCO2 (35-45) POC ABG pO2 (80-105) Sodium (137-145) mmol/L Potassium (3.6-5.0) mmol/L Carbon Dioxide (22-30) mmol/L BUN (9-20) mg/dL Creatinine (0.8-1.5) mg/dL Glucose (75-100) mg/dL POC Glucose 113 H (70-105) Calcium (8.4-10.2) mg/dL
[2018-07-03] MEDS ORDERED: NACL 0.9% 500 ML 500 ML IV ONE (10:00)
--- NOTE | 2018-07-03 10:09 | Progress Note ---
Assessment and Plan - Patient Problems (1) Acute tubular necrosis Current Visit: Yes Status: Acute Plan to address problem: Kidney injury acute tubular necrosis of multifactorial etiology secondary to contrast exposure, septic shock, medications including voriconazole/Bactrim. Pt is now in recovery phase of ATN, kidney indices improving with increased UOP. metabolic acidosis improved, now more respiratory acidosis with metabolic compensation. Cont supportive care for ATN, cont vasopressor support to maintain MAP 65mmHg, avoid further nephrotoxins, NSAIDs, IV contrast. (2) AIDS (acquired immune deficiency syndrome) Current Visit: Yes Status: Acute Plan to address problem: Continue management by infectious disease consultants (3) Hyperkalemia Current Visit: Yes Status: Acute Plan to address problem: improved with correction of acidosis. bicarb gtt d/tiffany. now hypokalemia in the setting of polyuric phase of ATN. Supplement with KDur (4) Acute respiratory failure with hypoxia Current Visit: Yes Status: Acute Plan to address problem: Ventilator management by pulmonary (5) Bilateral pneumonia Current Visit: Yes Status: Acute Qualifiers: Pneumonia type: due to unspecified organism Lung location: unspecified part of lung Qualified Code(s): J18.9 - Pneumonia, unspecified organism Plan to address problem: Continue antibiotics per infectious disease virtualization consultant (6) Anemia Current Visit: Yes Status: Acute Plan to address problem: Being managed by hooker machine tender (7) Respiratory acidosis Current Visit: Yes Status: Acute Plan to address problem: with metabolic compensation in the setting of renal recovery. pt off bicarb gtt. cont vent management as per ICU team (8) Hypernatremia Current Visit: Yes Status: Acute Plan to address problem: due to polyuric phase of ATN, agree with starting D5 1/2NS and free water flushes via NGT to correct free water deficit. Subjective Date of service: 07/03/18 Principal diagnosis: Acute Hypoxemic Resp Failure; AIDS / HIV positive; Severe Sepsis due to PNA Interval history: pt remains intubated, sedated. on vasopressor support with levophed. improving renal function noted with excellent UOP Objective - Vital Signs Vital signs: Vital Signs - 12hr 07/02/18 07/02/18 07/02/18 22:41 22:45 23:00 Temperature Pulse Rate 112 H 108 H Pulse Rate [ Apical] Pulse Rate [ Bilateral] Respiratory 28 H 27 H 28 H Rate Respiratory Rate [Bilateral ] Blood Pressure 125/65 117/66 O2 Sat by Pulse 91 91 Oximetry 07/02/18 07/03/18 07/03/18 23:01 00:00 00:20 Temperature Pulse Rate 105 H 109 H 108 H Pulse Rate [ 110 H Apical] Pulse Rate [ Bilateral] Respiratory 29 H 28 H Rate Respiratory Rate [Bilateral ] Blood Pressure 117/66 139/69 123/63 O2 Sat by Pulse 92 91 93 Oximetry 07/03/18 07/03/18 07/03/18 01:00 02:00 02:20 Temperature Pulse Rate 108 H 108 H 107 H Pulse Rate [ 112 H Apical] Pulse Rate [ Bilateral] Respiratory 28 H 28 H 27 H Rate Respiratory Rate [Bilateral ] Blood Pressure 123/63 117/69 O2 Sat by Pulse 92 93 93 Oximetry 07/03/18 07/03/18 07/03/18 03:00 03:20 03:36 Temperature Pulse Rate 106 H 107 H 107 H Pulse Rate [ 112 H Apical] Pulse Rate [ Bilateral] Respiratory 30 H 27 H Rate Respiratory Rate [Bilateral ] Blood Pressure 138/69 131/71 O2 Sat by Pulse 93 93 91 Oximetry 07/03/18 07/03/18 07/03/18 03:38 03:42 03:51 Temperature 101.2 F H Pulse Rate Pulse Rate [ Apical] Pulse Rate [ 108 H 112 H Bilateral] Respiratory Rate Respiratory 31 H 30 H Rate [Bilateral ] Blood Pressure O2 Sat by Pulse Oximetry 07/03/18 07/03/18 07/03/18 04:00 05:00 06:00 Temperature 100.5 F H Pulse Rate 106 H 88 108 H Pulse Rate [ Apical] Pulse Rate [ Bilateral] Respiratory 30 H 29 H 27 H Rate Respiratory Rate [Bilateral ] Blood Pressure 104/71 122/60 112/67 O2 Sat by Pulse 92 89 90 Oximetry 07/03/18 07/03/18 07/03/18 07:33 09:42 09:45 Temperature 100.1 F H Pulse Rate 89 Pulse Rate [ Apical] Pulse Rate [ 92 H Bilateral] Respiratory Rate Respiratory 33 H Rate [Bilateral ] Blood Pressure 122/74 O2 Sat by Pulse 92 Oximetry - General Appearance General appearance: appears stated age, chronically ill, sedated on ventilator, intubated EENT: ATNC, mucous membranes moist Neck: no JVD Respiratory: Present: Decreased Breath Sounds Cardiology: regular, S1S2 Gastrointestinal: normoactive bowel sounds Integumentary: no rash, other (+ edema b/l LE ) Neurologic: other (intubated, sedated ) - Lab 07/03/18 05:00 07/03/18 05:00 Most recent lab results Calcium 6.9 mg/dL (8.4-10.2) L 07/03/18 05:00 Urine Creatinine 47.2 mg/dL (0.1-20.0) H 06/24/18 22:45 Urine Sodium 40 mmol/L 06/24/18 22:45 Urine Total Protein 25 mg/dL (5-11.8) H 06/24/18 22:45 Medications & Allergies - Medications Allergies/Adverse Reactions: Allergies No Known Allergies Allergy (Verified 06/19/18 06:10) Home Medications: Home Medications Medication Instructions Recorded Confirmed Last Taken Type ALBUTEROL Inhaler (OR & NICU) 2 puff IH QID PRN 06/19/18 06/19/18 Unknown H istory [Proair] Pantoprazole [Protonix] 40 mg PO QDAY 06/19/18 06/19/18 Unknown History levoFLOXacin [Levaquin TAB] 500 mg PO QDAY 06/19/18 06/19/18 Unknown History Active Medications: Generic Name Dose Route Start Last Admin Trade Name Freq PRN Reason Stop Dose Admin Acetaminophen 650 mg 06/19/18 06:30 07/02/18 21:41 Tylenol PO 650 mg Q4H PRN Administration Pain MILD(1-3)/Fever >100.5/WESTON Acetazolamide 250 mg 07/03/18 10:00 Diamox IV 07/03/18 22:01 Q12HR PEYTON Albuterol/Ipratropium 1 ampul 06/26/18 14:00 07/03/18 09:45 Duoneb *Not For Prn Use* IH 1 ampul Q6HRT PEYTON Administration Lipase/Protease/Amylase 1 each 06/19/18 16:02 Pancremeseret Arroyo 10,500 Unit FEEDTUBE PRN PRN For Clogged Feeding Tube Atovaquone 750 mg 07/03/18 22:00 Mepron PO BID PEYTON Azithromycin 1,200 mg 06/25/18 11:00 07/02/18 10:42 Zithromax PO 1,200 mg Mo PEYTON Administration Dextrose 50 ml 07/02/18 15:00 D50w (25gm) Syringe IV PRN PRN Hypoglycemia Fentanyl 50 mcg 06/19/18 06:00 06/30/18 21:56 Sublimaze IV 50 mcg Q10MIN PRN Administration ANALGESIA Hydrophilic Ointment 1 applic 06/19/18 06:00 Vaseline Lip Therapy TP Q2HR PRN Dry Lips Fentanyl Citrate 2,000 mcg in 100 mls @ 3.86 mls/hr 06/19/18 06:00 07/03/18 02:38 Fentanyl Drip Premix IV 3 mcg/kg/hr TITR PEYTON 11.581 mls/hr Administration Protocol 1 MCG/KG/HR Norepinephrine 4 mg in 250 mls @ 7.5 mls/hr 06/19/18 15:00 07/02/18 09:50 Levophed Drip 4 Mg/Ns 250 Ml IV 0 mcg/min TITR PEYTON 0 mls/hr Titration Protocol 2 MCG/MIN Propofol 1,000 mg in 100 mls @ 2.601 mls/hr 06/24/18 15:00 07/03/18 04:50 Diprivan 10 Mg/Ml IV 25 mcg/kg/min TITR PEYTON 13.005 mls/hr Administration Protocol 5 MCG/KG/MIN Dextrose 500 mls @ 5 mls/hr 06/25/18 08:56 06/28/18 11:07 D5w IV 5 mls/hr PRN PRN Administration FLUSH BEFORE AND AFTER AMPHO B Trimethoprim/Sulfamethoxazole 275 mls @ 350 mls/hr 06/29/18 10:00 07/02/18 10:32 400 mg/ Dextrose IV 07/03/18 23:59 250 mls/hr DAILY PEYTON Administration Protocol Amphotericin B 250 mg/ 550 mls @ 250 mls/hr 06/30/18 10:00 07/02/18 10:10 Dextrose IV 250 mls/hr Q48HR PEYTON Administration Ganciclovir Sodium 120 mg/ 250 mls @ 100 mls/hr 07/02/18 10:00 07/02/18 10:42 Sodium Chloride IV 100 mls/hr MoWeFr PEYTON Administration Vasopressin 20 unit/ Sodium 101 mls @ 9.09 mls/hr 06/29/18 23:00 07/03/18 07:49 Chloride IV 0.03 units/min TITR PEYTON 9.09 mls/hr Administration Protocol 0.03 UNITS/MIN Dextrose/Sodium Chloride 1,000 mls @ 42 mls/hr 07/03/18 09:00 D5/0.45ns IV DIRECT [facility] Insulin Human Lispro 0 unit 06/20/18 13:00 07/03/18 00:20 Humalog SUB-Q Not Given Q6HR [facility] Protocol Methylprednisolone Sodium Succinate 40 mg 06/19/18 22:00 07/02/18 21:38 Solu-Medrol IV 40 mg Q12HR PEYTON Administration Multi-Ingred Cream/Lotion/Oil/Oint 1 applic 06/19/18 06:00 Artificial Tears Ophth Oint OU Q4HR PRN Dry Eye(s) Ondansetron HCl 4 mg 06/19/18 06:30 06/30/18 21:55 Zofran IV 4 mg Q8H PRN Administration Nausea And Vomiting Pantoprazole Sodium 40 mg 07/01/18 11:00 07/02/18 10:42 Protonix IV 40 mg QDAY [facility] Administration Phenylephrine HCl 2 spray 06/24/18 06:07 06/25/18 05:35 Thompson-Synephrine NS 2 spray Q4H PRN Administration Congestion Simple Syrup 15 ml 06/19/18 16:02 07/03/18 00:17 Simple Syrup FEEDTUBE 15 ml PRN PRN Administration Hypoglycemia Simple Syrup 30 ml 06/19/18 16:02 07/02/18 14:33 Simple Syrup FEEDTUBE 30 ml PRN PRN Administration Hypoglycemia Sodium Bicarbonate 325 mg 06/19/18 16:02 Sodium Bicarbonate FEEDTUBE PRN PRN For Clogged Feeding Tube Sodium Chloride 10 ml 06/19/18 10:00 07/02/18 21:38 Sodium Chloride Flush Syringe 10 Ml IV 10 ml BID PEYTON Administration Sodium Chloride 10 ml 06/19/18 06:30 Sodium Chloride Flush Syringe 10 Ml IV PRN PRN LINE FLUSH
[2018-07-03] MEDS: SOLU-Medrol IV SCH ×2 (10:42→22:20)
--- NOTE | 2018-07-03 10:59 | XRay Report ---
AP CHEST: HISTORY: ARDS, bilateral pleural effusions Lines and support devices remain in good position since 07/01/18. There is better pulmonary expansion on today's exam. Bilateral infiltrates have decreased slightly. No significant pleural effusions are appreciated on portable AP chest. No pneumothorax. Heart size is within normal limits. IMPRESSION: Improvement in the bilateral infiltrates and effusions. See above.
[2018-07-03] MEDS: PREVACID SOLUTAB FEEDTUBE SCH (11:01)
[2018-07-03] MEDS: DIAMOX IV SCH ×2 (11:02→22:20)
[2018-07-03] MEDS: SODIUM CHLORIDE FLUSH SYRINGE 10 ML IV SCH ×2 (11:04→22:21)
[2018-07-03] MEDS: BACTRIM IV SCH (11:11)
[2018-07-03] MEDS: D5W IV SCH (11:11)
[2018-07-03] MEDS: CYTOVENE 500 MG in NACL 0.9% 250ML 250 ML IV SCH ×2 (13:03→23:31)
[2018-07-03] MEDS ORDERED: SIMPLE SYRUP FEEDTUBE PRN ×2 (14:31)
[2018-07-03] MEDS ORDERED: PANCREAZE DR 10,500 UNIT FEEDTUBE PRN (14:31)
--- NOTE | 2018-07-03 15:12 | Progress Note ---
Assessment and Plan ARDS with Acute respiratory failure with hypoxia requiring full mechanical ventilatory support - Likely due to severe sepsis and bilateral pneumonia - Continue to treat underlying pneumonia with antibiotics, frequent nebs, ventilator support - Critical care following Sepsis with Septic shock - secondary to bilateral pneumonia, profound immunosuppression from underlying AIDS - ID on board, CD4 count equals 10 - Continue antibiotics, pressor support, IV fluid - Patient currently on Levophed and vasopressin- Exctensive bilateral pneumonia -Extensive bilateral ground glass opacities and pneumonia with severe hypoxia. PJP versus invasive fungal versus disseminated CMV. - Cytology PJP stain negative but DFA showed rare PJP. Lung cytology GMS stain showed septated fungal hyphae with acute angle branching and yeast forms c/w Aspergillus, Fusarium, Scedosporium and other Dematiaceous fungi - Being treated with antifungal HIV WITH AIDS defining disease, ID following CD4=10 / VL 1,300,000 copies Hypernatremia, continue IV fluid Epixtasis, due to the low platelets and severe sepsis, resolved JENNIFER secondary to Multifactorial causes - in setting of pre-renal injury, ATN secondary sepsis, contrast exposure, voriconazole, bactrim/antibiotic exposure. - Nephrology following, creatinine improving slowly Severe metabolic acidosis, due to severe sepsis and worsening renal function - Continue to monitor BMP shock liver-Improving Pulmonary hypertension, likely secondary to severe pneumonia - Critical care attending following Hyperkalemia, resolved after meds, dialysis Anemia due to acute blood loss from hematuria, now stable following transfusion Gross hematuria, - Gross hematuria after muir catheter placed on06/30/18, now clearing,pink. Transfused 2 Units. Consulted Urology and Laisha Arroyo evaluated patient and recommends conservative management, since clearing H/H stable. Unstable to go for CT Abd. DVT and GI prophylaxis Poor prognosis, DO NOT RESUSCITATE CODE STATUS The high probability of a clinically significant, sudden or life threatening deterioration of the [Pulmonary] system(s) required my full and direct attention, intervention and personal management. The aggregate critical care time was [32] minutes. This time is in addition to time spent performing reported procedures but includes the following: [x] Data Review and interpretation [x] Patient assessment and monitoring of vital signs [x] Documentation [x] Medication orders and management Brief History Patient is 32 yo with hypertension presented with shortness of breath, cough. He was found to have bilateral infiltrates. He was diagnosed with acute respi ratory failure due to bilateral pneumonia. He was started on iv Antibiotics, put on BIPAP. He became worse, was intubated. Labs show HIV/AIDS, new diagnosis. Patient is followed by Pulmonology, ID Physician. few days into admission, he developed JENNIFER due to ATN from sepsis, contrast exposure and medications. Muir catheter was placed and Cr improving. Patient then developed gross hematuria, which is now resolving. Hospitalist Physical GEN: Intubated,Obese HEENT: Normocephalic, atraumatic, Neck: supple, No JVD Lungs: Bilateral crackles, no wheeze Heart:S1 and S2 regular, no murmurs, rubs or gallop, Abd:soft, non tender, non distended, normal bowel sounds Ext: Edema all ext, no clubbing or cyanosis Neuro: Intubated, sedated Skin: anasarca Subjective Date of service: 07/03/18 Principal diagnosis: Acute Hypoxemic Resp Failure; AIDS / HIV positive; Severe Sepsis due to PNA Interval history: Patient seen and examined. Medical records and medication list reviewed. No acute event overnight noted by the RN. Continue to spike fever and remained hypotensive Started on vasopressin along with Levophed this morning Patient remained intubated, made a DO NOT RESUSCITATE today following discussion with patient's Aunt Objective - Constitutional Vitals: Vital Signs - 12hr 07/03/18 07/03/18 07/03/18 03:20 03:36 03:38 Temperature Pulse Rate 107 H 107 H Pulse Rate [ 112 H Apical] Pulse Rate [ 108 H Bilateral] Respiratory 27 H Rate Respiratory 31 H Rate [Bilateral ] Blood Pressure 131/71 O2 Sat by Pulse 93 91 Oximetry 07/03/18 07/03/18 07/03/18 03:42 03:51 04:00 Temperature 101.2 F H 100.5 F H Pulse Rate 106 H Pulse Rate [ Apical] Pulse Rate [ 112 H Bilateral] Respiratory 30 H Rate Respiratory 30 H Rate [Bilateral ] Blood Pressure 104/71 O2 Sat by Pulse 92 Oximetry 07/03/18 07/03/18 07/03/18 05:00 06:00 07:00 Temperature Pulse Rate 88 108 H 106 H Pulse Rate [ Apical] Pulse Rate [ Bilateral] Respiratory 29 H 27 H 31 H Rate Respiratory Rate [Bilateral ] Blood Pressure 122/60 112/67 128/71 O2 Sat by Pulse 89 90 92 Oximetry 07/03/18 07/03/18 07/03/18 07:33 08:00 09:00 Temperature 100.1 F H Pulse Rate 101 H 100 H Pulse Rate [ Apical] Pulse Rate [ Bilateral] Respiratory 28 H 29 H Rate Respiratory Rate [Bilateral ] Blood Pressure 106/70 133/70 O2 Sat by Pulse 92 93 Oximetry 07/03/18 07/03/18 07/03/18 09:42 09:45 10:00 Temperature Pulse Rate 89 92 H Pulse Rate [ Apical] Pulse Rate [ 92 H Bilateral] Respiratory 29 H Rate Respiratory 33 H Rate [Bilateral ] Blood Pressure 122/74 129/65 O2 Sat by Pulse 92 94 Oximetry 07/03/18 07/03/18 07/03/18 10:20 11:00 11:41 Temperature 98.7 F Pulse Rate 101 H Pulse Rate [ Apical] Pulse Rate [ 98 H Bilateral] Respiratory 31 H Rate Respiratory 34 H Rate [Bilateral ] Blood Pressure 115/70 O2 Sat by Pulse 94 Oximetry 07/03/18 07/03/18 07/03/18 12:00 12:50 13:05 Temperature 98.8 F 98.8 F Pulse Rate 93 H 98 H 93 H Pulse Rate [ Apical] Pulse Rate [ Bilateral] Respiratory 27 H 24 25 H Rate Respiratory Rate [Bilateral ] Blood Pressure 132/71 123/73 127/66 O2 Sat by Pulse 90 91 92 Oximetry 07/03/18 07/03/18 07/03/18 13:35 13:37 14:56 Temperature 98.8 F Pulse Rate 88 89 Pulse Rate [ Apical] Pulse Rate [ 94 H Bilateral] Respiratory 19 Rate Respiratory 33 H Rate [Bilateral ] Blood Pressure 129/68 129/68 O2 Sat by Pulse 93 92 Oximetry - Labs CBC & Chem 7: 07/04/18 Unknown 07/04/18 Unknown Labs: Abnormal lab results 06/29/18 07/03/18 07/03/18 Range/Units 09:50 00:17 04:28 RBC (3.65-5.03) M/mm3 Hgb (11.8-15.2) gm/dl Hct (35.5-45.6) % Plt Count (140-440) K/mm3 POC ABG pH 7.267 L (7.35-7.45) POC ABG pCO2 93.3 H (35-45) POC ABG pO2 69 L (80-105) Sodium (137-145) mmol/L Potassium (3.6-5.0) mmol/L Carbon Dioxide (22-30) mmol/L BUN (9-20) mg/dL Creatinine (0.8-1.5) mg/dL Glucose (75-100) mg/dL POC Glucose 69 L (70-105) Calcium (8.4-10.2) mg/dL Crossmatch See Detail 07/03/18 07/03/18 07/03/18 Range/Units 05:00 05:00 05:16 RBC 2.23 L (3.65-5.03) M/mm3 Hgb 7.0 L (11.8-15.2) gm/dl Hct 20.3 L (35.5-45.6) % Plt Count 81 L (140-440) K/mm3 POC ABG pH (7.35-7.45) POC ABG pCO2 (35-45) POC ABG pO2 (80-105) Sodium 155 H (137-145) mmol/L Potassium 3.3 L (3.6-5.0) mmol/L Carbon Dioxide 40 H (22-30) mmol/L BUN 94 H (9-20) mg/dL Creatinine 1.7 H (0.8-1.5) mg/dL Glucose 115 H (75-100) mg/dL POC Glucose 113 H (70-105) Calcium 6.9 L (8.4-10.2) mg/dL Crossmatch 07/03/18 07/03/18 Range/Units 10:24 11:12 RBC (3.65-5.03) M/mm3 Hgb (11.8-15.2) gm/dl Hct (35.5-45.6) % Plt Count (140-440) K/mm3 POC ABG pH (7.35-7.45) POC ABG pCO2 (35-45) POC ABG pO2 (80-105) Sodium (137-145) mmol/L Potassium (3.6-5.0) mmol/L Carbon Dioxide (22-30) mmol/L BUN (9-20) mg/dL Creatinine (0.8-1.5) mg/dL Glucose (75-100) mg/dL POC Glucose 125 H (70-105) Calcium (8.4-10.2) mg/dL Crossmatch See Detail
[2018-07-03] MEDS ORDERED: SODIUM BICARBONATE FEEDTUBE PRN (15:14)
[2018-07-03 19:26] LABS: Hematocrit 23.8 % (35.5-45.6); Hemoglobin 7.8 gm/dl (11.8-15.2)
[2018-07-03] MEDS ORDERED: D5W IV SCH (22:00)
[2018-07-03] MEDS ORDERED: ABELCET IV SCH (22:00)
[2018-07-03] MEDS: MEPRON PO SCH (22:20)
[2018-07-04] MEDS: DIPRIVAN 10 MG/ML 1,000 MG/100 ML BOTTLE IV SCH ×3 (02:00→18:49)
[2018-07-04] MEDS: DUONEB *Not for PRN Use IH SCH ×4 (02:01→21:13)
[2018-07-04] MEDS: HumaLOG SUB-Q SCH ×3 (06:58→17:50)
--- NOTE | 2018-07-04 08:45 | Progress Note ---
Assessment and Plan Acute Hypoxemic Respiratory Failure on MVS ARDS AIDS / HIV positive Severe Sepsis with septic shock due to Pneumonia Severe respiratory acidosis Lower extremity DVT Acute renal failure Thrombocytopenia Hematuria, improving Anemia requiring blood transfusions Hypernatremia Medical decision making -Transfuse to keep HgB>7g/dL -AGB daily -Continue to wean PEEP and O2 sat plan on decreasing PEEP to 8, to keep airway pressures(Pplat) <30 -ABG in am to re-evaluate oxygenation and acid-base -Continue PPI renally dosed -Nutrition consult to initiate enteric feeding -Stop insulin in view of hypoglycemia -Continue to hold all anticoagulation for now -Target glucose of 140mg- 180mg/dL, add sliding scale insulin therapy -VAP bundle addressed - Continue supplemental oxygen to keep sats > 90% -Wean PEEP and FIO2 as tolerated -ARDS net protocol with lung protective strategies Permissive hypercapnia for now. -OK for bicarbonate if pH <7.1 -Fluid management should be restrictive to allow for oxygenation and ventilation - continue bronchodilators per protocol -Vasopressor support wean for MAP >65 -Continue steroids -Continue empiric and targeted anti-infective's per ID recs -Aspiration precautions, HOB>40 -Accucheck and monitor for hypoglycemia - Continue to monitor for for drug-drug interaction - Daily SATs and SBT per protocol once his ventilatory needs are minimal - Stress ulcer prophylaxis -Anticoagulation, stopped Eliquis. -Critical care bundles addressed CONDITION: CRITICAL PROGNOSIS: POOR CODE STATUS: DNAR The high probability of a clinically significant, sudden or life-threatening deterioration of the [cardiac, respiratory] system(s) required my full and direct attention, intervention and personal management. The aggregate critical care time was [35] minutes without overlap. Time includes spent on; [x] Data Review and interpretation [x] Patient assessment and monitoring of vital signs [x] Documentation Subjective Date of service: 07/04/18 Principal diagnosis: Acute Hypoxemic Resp Failure; AIDS / HIV positive; Severe Sepsis due to PNA Interval history: Patient is seen today for: Acute Hypoxemic Respiratory Failure on MVS; AIDS / HIV positive; Severe Sepsis due to Pneumonia; Hyponatremia; Severe metabolic acidosis Seen and examined at bedside; 24hour events reviewed; nursing and respiratory care staff consulted; no adverse overnight events reported to me; ; on fentanyl and propofol; remains on MVS requiring PEEP 10 and FIO2 96%; no seizures reported; no emesis or overt aspiration, Off vasopressor support, continues to have ventilatory demands Remains unresponsive Objective Vital Signs - 12hr 07/03/18 07/03/18 07/03/18 21:00 22:00 23:00 Temperature Pulse Rate 92 H 87 90 Pulse Rate [ Apical] Pulse Rate [ Bilateral] Respiratory 26 H 21 20 Rate Respiratory Rate [Bilateral ] Blood Pressure 133/72 131/79 123/72 O2 Sat by Pulse 94 95 98 Oximetry 07/03/18 07/03/18 07/04/18 23:02 23:18 00:00 Temperature 98.0 F Pulse Rate 92 H 89 88 Pulse Rate [ Apical] Pulse Rate [ Bilateral] Respiratory 20 26 H Rate Respiratory Rate [Bilateral ] Blood Pressure 123/72 123/72 146/102 O2 Sat by Pulse 96 97 93 Oximetry 07/04/18 07/04/18 07/04/18 01:00 02:00 02:01 Temperature Pulse Rate 101 H 109 H Pulse Rate [ Apical] Pulse Rate [ 106 H Bilateral] Respiratory 24 26 H Rate Respiratory 35 H Rate [Bilateral ] Blood Pressure 133/75 146/80 O2 Sat by Pulse 81 L 94 Oximetry 07/04/18 07/04/18 07/04/18 02:10 03:00 03:18 Temperature Pulse Rate 100 H 96 H Pulse Rate [ Apical] Pulse Rate [ 101 H Bilateral] Respiratory 25 H Rate Respiratory 34 H Rate [Bilateral ] Blood Pressure 116/61 121/60 O2 Sat by Pulse 96 96 Oximetry 07/04/18 07/04/18 07/04/18 03:24 04:00 05:00 Temperature Pulse Rate 97 H 99 H Pulse Rate [ 99 H Apical] Pulse Rate [ Bilateral] Respiratory 21 18 Rate Respiratory Rate [Bilateral ] Blood Pressure 118/56 112/49 O2 Sat by Pulse 96 95 Oximetry 07/04/18 07/04/18 07/04/18 06:00 06:56 07:00 Temperature Pulse Rate 98 H 92 H 94 H Pulse Rate [ Apical] Pulse Rate [ Bilateral] Respiratory 18 22 Rate Respiratory Rate [Bilateral ] Blood Pressure 115/56 117/63 O2 Sat by Pulse 95 96 Oximetry Constitutional: comatose, appears uncomfortable, other (young HM normocephalic and atraumatic with moderately increased respiratory effort at rest) Eyes: non-icteric ENT: oropharynx moist, other (ETT 23 cm SATISH) Neck: supple, no lymphadenopathy, no JVD, other (no thyromegaly) Effort: mildly labored Ascultation: Bilateral: diminished breath sounds, rhonchi Percussion: Bilateral: not dull Cardiovascular: regular rate and rhythm, other (S1,S2, no murmurs, gallops or rubs) Gastrointestinal: normoactive bowel sounds, soft, non-tender, non-distended Integumentary: rash Extremities: no cyanosis, pink and warm, pulses normal, no ischemia or petechiae, edema (bilateral upper extemity ), anasarca Neurologic: pupils equal and round, unable to assess Psychiatric: other (unable to assess) CBC and BMP: 07/08/18 05:00 07/08/18 05:00 ABG, PT/INR, D-dimer: ABG POC ABG pH 7.229 (7.35-7.45) L 07/04/18 03:57 POC ABG pCO2 99.8 (35-45) H 07/04/18 03:57 POC ABG pO2 81 (80-105) 07/04/18 03:57 POC ABG HCO3 41.7 07/04/18 03:57 POC ABG Total CO2 45 07/04/18 03:57 POC ABG O2 Sat 92 07/04/18 03:57 PT/INR, D-dimer PT 14.3 Sec. (12.2-14.9) 07/01/18 09:11 INR 1.05 (0.87-1.13) 07/01/18 09:11 D-Dimer 2387.14 ng/mlDDU (0-234) H 07/01/18 10:00 Abnormal lab findings: Abnormal Labs 06/19/18 06/19/18 06/19/18 03:31 07:11 07:42 WBC RBC Hgb Hct MCV RDW Plt Count Seg Neuts % (Manual) Lymphocytes % (Manual) Seg Neutrophils # Man Abs Lymphs (Manual) 409 L Lymphocytes # (Manual) PT INR D-Dimer POC ABG pH 6.974 L POC ABG pCO2 22.0 L 83.4 H POC ABG pO2 28 L 122 H Sodium Potassium Chloride Carbon Dioxide BUN Creatinine Glucose POC Glucose Calcium AST ALT C-Reactive Protein Total Protein Albumin Triglycerides Ur Specific Ariel Urine WBC (Auto) Urine Creatinine Urine Total Protein Lymph Enumerat CD4/CD8 0.05 L % CD3 Cells 45 L Absolute CD3 Count 185 L % CD4 Cells 2 L Absolute CD4 Count 10 L % CD8 Cells 43 H Absolute CD8 Count 167 L Absolute CD19 Count 79 L HIV DNA Qual (PCR) HIV-1 RNA PCR copies/ml HIV-1 RNA (PCR) log Miscellaneous Test Crossmatch 06/19/18 06/19/18 06/19/18 08:07 08:16 09:20 WBC RBC Hgb Hct MCV RDW Plt Count Seg Neuts % (Manual) Lymphocytes % (Manual) Seg Neutrophils # Man Abs Lymphs (Manual) Lymphocytes # (Manual) PT INR D-Dimer POC ABG pH 6.996 L POC ABG pCO2 82.4 H POC ABG pO2 Sodium Potassium Chloride Carbon Dioxide BUN Creatinine Glucose POC Glucose Calcium AST ALT C-Reactive Protein Total Protein Albumin Triglycerides Ur Specific Ariel 1.060 H Urine WBC (Auto) 8.0 H Urine Creatinine Urine Total Protein Lymph Enumerat CD4/CD8 % CD3 Cells Absolute CD3 Count % CD4 Cells Absolute CD4 Count % CD8 Cells Absolute CD8 Count Absolute CD19 Count HIV DNA Qual (PCR) Detected H HIV-1 RNA PCR copies/ml HIV-1 RNA (PCR) log Miscellaneous Test Crossmatch 06/19/18 06/19/18 06/19/18 09:49 11:15 15:16 WBC RBC Hgb Hct MCV RDW Plt Count Seg Neuts % (Manual) Lymphocytes % (Manual) Seg Neutrophils # Man Abs Lymphs (Manual) Lymphocytes # (Manual) PT INR D-Dimer POC ABG pH 7.198 L 7.206 L POC ABG pCO2 POC ABG pO2 75 L Sodium Potassium Chloride Carbon Dioxide BUN Creatinine Glucose POC Glucose Calcium AST ALT C-Reactive Protein Total Protein Albumin Triglycerides Ur Specific Ariel Urine WBC (Auto) Urine Creatinine Urine Total Protein Lymph Enumerat CD4/CD8 % CD3 Cells Absolute CD3 Count % CD4 Cells Absolute CD4 Count % CD8 Cells Absolute CD8 Count Absolute CD19 Count HIV DNA Qual (PCR) HIV-1 RNA PCR copies/ml 4308977 H HIV-1 RNA (PCR) log 6.11 H Miscellaneous Test Crossmatch 06/19/18 06/19/18 06/19/18 18:54 Unknown Unknown WBC 12.9 H RBC Hgb Hct MCV RDW Plt Count Seg Neuts % (Manual) Lymphocytes % (Manual) 5.0 L Seg Neutrophils # Man Abs Lymphs (Manual) Lymphocytes # (Manual) 0.6 L PT 15.9 H INR 1.19 H D-Dimer 8449.09 H POC ABG pH POC ABG pCO2 POC ABG pO2 Sodium Potassium Chloride Carbon Dioxide BUN Creatinine Glucose POC Glucose 196 H Calcium AST ALT C-Reactive Protein Total Protein Albumin Triglycerides Ur Specific Ariel Urine WBC (Auto) Urine Creatinine Urine Total Protein Lymph Enumerat CD4/CD8 % CD3 Cells Absolute CD3 Count % CD4 Cells Absolute CD4 Count % CD8 Cells Absolute CD8 Count Absolute CD19 Count HIV DNA Qual (PCR) HIV-1 RNA PCR copies/ml HIV-1 RNA (PCR) log Miscellaneous Test Crossmatch 06/19/18 06/19/18 06/20/18 Unknown Unknown 04:33 WBC RBC Hgb Hct MCV RDW Plt Count Seg Neuts % (Manual) Lymphocytes % (Manual) Seg Neutrophils # Man Abs Lymphs (Manual) Lymphocytes # (Manual) PT INR D-Dimer POC ABG pH 7.249 L POC ABG pCO2 POC ABG pO2 118 H Sodium 129 L Potassium Chloride 90.7 L Carbon Dioxide 17 L BUN Creatinine 0.6 L Glucose 199 H POC Glucose Calcium 8.1 L AST 53 H ALT C-Reactive Protein Total Protein 6.0 L Albumin 2.8 L Triglycerides Ur Specific Ariel Urine WBC (Auto) Urine Creatinine Urine Total Protein Lymph Enumerat CD4/CD8 % CD3 Cells Absolute CD3 Count % CD4 Cells Absolute CD4 Count % CD8 Cells Absolute CD8 Count Absolute CD19 Count HIV DNA Qual (PCR) HIV-1 RNA PCR copies/ml HIV-1 RNA (PCR) log Miscellaneous Test Crossmatch 06/20/18 06/20/18 06/20/18 08:13 08:13 12:59 WBC 11.8 H RBC 3.25 L Hgb 9.8 L D Hct 30.4 L D MCV RDW Plt Count Seg Neuts % (Manual) 99.0 H Lymphocytes % (Manual) 1.0 L Seg Neutrophils # Man 11.7 H Abs Lymphs (Manual) Lymphocytes # (Manual) 0.1 L PT INR D-Dimer POC ABG pH POC ABG pCO2 POC ABG pO2 Sodium Potassium Chloride Carbon Dioxide 19 L BUN Creatinine Glucose 223 H POC Glucose 174 H Calcium 6.6 L D AST 1240 H ALT 836 H C-Reactive Protein Total Protein 4.9 L Albumin 2.1 L Triglycerides Ur Specific Ariel Urine WBC (Auto) Urine Creatinine Urine Total Protein Lymph Enumerat CD4/CD8 % CD3 Cells Absolute CD3 Count % CD4 Cells Absolute CD4 Count % CD8 Cells Absolute CD8 Count Absolute CD19 Count HIV DNA Qual (PCR) HIV-1 RNA PCR copies/ml HIV-1 RNA (PCR) log Miscellaneous Test Crossmatch 06/20/18 06/20/18 06/21/18 17:42 23:44 04:08 WBC RBC Hgb Hct MCV RDW Plt Count Seg Neuts % (Manual) Lymphocytes % (Manual) Seg Neutrophils # Man Abs Lymphs (Manual) Lymphocytes # (Manual) PT INR D-Dimer POC ABG pH 7.309 L POC ABG pCO2 POC ABG pO2 Sodium Potassium Chloride Carbon Dioxide BUN Creatinine Glucose POC Glucose 177 H 195 H Calcium AST ALT C-Reactive Protein Total Protein Albumin Triglycerides Ur Specific Ariel Urine WBC (Auto) Urine Creatinine Urine Total Protein Lymph Enumerat CD4/CD8 % CD3 Cells Absolute CD3 Count % CD4 Cells Absolute CD4 Count % CD8 Cells Absolute CD8 Count Absolute CD19 Count HIV DNA Qual (PCR) HIV-1 RNA PCR copies/ml HIV-1 RNA (PCR) log Miscellaneous Test Crossmatch 06/21/18 06/21/18 06/21/18 04:19 04:19 05:27 WBC 13.8 H RBC 3.02 L Hgb 9.2 L Hct 28.0 L MCV RDW Plt Count Seg Neuts % (Manual) Lymphocytes % (Manual) Seg Neutrophils # Man Abs Lymphs (Manual) Lymphocytes # (Manual) PT INR D-Dimer POC ABG pH POC ABG pCO2 POC ABG pO2 Sodium 135 L Potassium Chloride Carbon Dioxide 21 L BUN Creatinine 0.7 L Glucose 161 H POC Glucose 187 H Calcium 7.2 L AST 390 H ALT 622 H C-Reactive Protein Total Protein 5.3 L Albumin 2.4 L Triglycerides Ur Specific Ariel Urine WBC (Auto) Urine Creatinine Urine Total Protein Lymph Enumerat CD4/CD8 % CD3 Cells Absolute CD3 Count % CD4 Cells Absolute CD4 Count % CD8 Cells Absolute CD8 Count Absolute CD19 Count HIV DNA Qual (PCR) HIV-1 RNA PCR copies/ml HIV-1 RNA (PCR) log Miscellaneous Test Crossmatch 06/21/18 06/21/18 06/21/18 11:33 12:32 17:45 WBC RBC Hgb Hct MCV RDW Plt Count Seg Neuts % (Manual) Lymphocytes % (Manual) Seg Neutrophils # Man Abs Lymphs (Manual) Lymphocytes # (Manual) PT INR D-Dimer POC ABG pH POC ABG pCO2 POC ABG pO2 Sodium Potassium Chloride Carbon Dioxide BUN Creatinine Glucose POC Glucose 147 H 172 H Calcium AST ALT C-Reactive Protein Total Protein Albumin Triglycerides Ur Specific Ariel Urine WBC (Auto) Urine Creatinine Urine Total Protein Lymph Enumerat CD4/CD8 % CD3 Cells Absolute CD3 Count % CD4 Cells Absolute CD4 Count % CD8 Cells Absolute CD8 Count Absolute CD19 Count HIV DNA Qual (PCR) HIV-1 RNA PCR copies/ml HIV-1 RNA (PCR) log Miscellaneous Test see below H Crossmatch 06/21/18 06/22/18 06/22/18 23:25 04:47 04:47 WBC 11.5 H RBC 2.93 L Hgb 9.0 L Hct 26.5 L MCV RDW Plt Count Seg Neuts % (Manual) Lymphocytes % (Manual) Seg Neutrophils # Man Abs Lymphs (Manual) Lymphocytes # (Manual) PT INR D-Dimer POC ABG pH POC ABG pCO2 POC ABG pO2 Sodium Potassium Chloride Carbon Dioxide BUN 22 H Creatinine Glucose 201 H POC Glucose 152 H Calcium 7.8 L AST 129 H ALT 416 H C-Reactive Protein Total Protein 5.3 L Albumin 2.4 L Triglycerides Ur Specific Ariel Urine WBC (Auto) Urine Creatinine Urine Total Protein Lymph Enumerat CD4/CD8 % CD3 Cells Absolute CD3 Count % CD4 Cells Absolute CD4 Count % CD8 Cells Absolute CD8 Count Absolute CD19 Count HIV DNA Qual (PCR) HIV-1 RNA PCR copies/ml HIV-1 RNA (PCR) log Miscellaneous Test Crossmatch 06/22/18 06/22/18 06/22/18 05:23 11:43 17:45 WBC RBC Hgb Hct MCV RDW Plt Count Seg Neuts % (Manual) Lymphocytes % (Manual) Seg Neutrophils # Man Abs Lymphs (Manual) Lymphocytes # (Manual) PT INR D-Dimer POC ABG pH POC ABG pCO2 POC ABG pO2 Sodium Potassium Chloride Carbon Dioxide BUN Creatinine Glucose POC Glucose 170 H 175 H 176 H Calcium AST ALT C-Reactive Protein Total Protein Albumin Triglycerides Ur Specific Ariel Urine WBC (Auto) Urine Creatinine Urine Total Protein Lymph Enumerat CD4/CD8 % CD3 Cells Absolute CD3 Count % CD4 Cells Absolute CD4 Count % CD8 Cells Absolute CD8 Count Absolute CD19 Count HIV DNA Qual (PCR) HIV-1 RNA PCR copies/ml HIV-1 RNA (PCR) log Miscellaneous Test Crossmatch 06/23/18 06/23/18 06/23/18 00:24 05:06 05:11 WBC 11.2 H RBC 2.78 L Hgb 8.6 L Hct 25.3 L MCV RDW Plt Count Seg Neuts % (Manual) Lymphocytes % (Manual) Seg Neutrophils # Man Abs Lymphs (Manual) Lymphocytes # (Manual) PT INR D-Dimer POC ABG pH POC ABG pCO2 POC ABG pO2 Sodium Potassium Chloride Carbon Dioxide BUN Creatinine Glucose POC Glucose 178 H 182 H Calcium AST ALT C-Reactive Protein Total Protein Albumin Triglycerides Ur Specific Ariel Urine WBC (Auto) Urine Creatinine Urine Total Protein Lymph Enumerat CD4/CD8 % CD3 Cells Absolute CD3 Count % CD4 Cells Absolute CD4 Count % CD8 Cells Absolute CD8 Count Absolute CD19 Count HIV DNA Qual (PCR) HIV-1 RNA PCR copies/ml HIV-1 RNA (PCR) log Miscellaneous Test Crossmatch 06/23/18 06/23/18 06/23/18 05:11 05:51 12:21 WBC RBC Hgb Hct MCV RDW Plt Count Seg Neuts % (Manual) Lymphocytes % (Manual) Seg Neutrophils # Man Abs Lymphs (Manual) Lymphocytes # (Manual) PT INR D-Dimer POC ABG pH POC ABG pCO2 POC ABG pO2 69 L Sodium Potassium Chloride Carbon Dioxide BUN 34 H Creatinine 1.7 H D Glucose 191 H POC Glucose 181 H Calcium 7.5 L AST 63 H ALT 297 H C-Reactive Protein Total Protein 5.3 L Albumin 2.4 L Triglycerides Ur Specific Ariel Urine WBC (Auto) Urine Creatinine Urine Total Protein Lymph Enumerat CD4/CD8 % CD3 Cells Absolute CD3 Count % CD4 Cells Absolute CD4 Count % CD8 Cells Absolute CD8 Count Absolute CD19 Count HIV DNA Qual (PCR) HIV-1 RNA PCR copies/ml HIV-1 RNA (PCR) log Miscellaneous Test Crossmatch 06/23/18 06/23/18 06/23/18 13:57 17:00 18:40 WBC RBC Hgb Hct MCV RDW Plt Count Seg Neuts % (Manual) Lymphocytes % (Manual) Seg Neutrophils # Man Abs Lymphs (Manual) Lymphocytes # (Manual) PT INR D-Dimer POC ABG pH POC ABG pCO2 POC ABG pO2 Sodium Potassium Chloride Carbon Dioxide BUN 38 H Creatinine 1.8 H Glucose POC Glucose 196 H Calcium AST ALT C-Reactive Protein 1.60 H Total Protein Albumin Triglycerides Ur Specific Ariel Urine WBC (Auto) Urine Creatinine Urine Total Protein Lymph Enumerat CD4/CD8 % CD3 Cells Absolute CD3 Count % CD4 Cells Absolute CD4 Count % CD8 Cells Absolute CD8 Count Absolute CD19 Count HIV DNA Qual (PCR) HIV-1 RNA PCR copies/ml HIV-1 RNA (PCR) log Miscellaneous Test Crossmatch 06/23/18 06/23/18 06/24/18 21:16 23:22 04:12 WBC RBC 2.89 L Hgb 8.8 L Hct 26.9 L MCV RDW Plt Count Seg Neuts % (Manual) Lymphocytes % (Manual) Seg Neutrophils # Man Abs Lymphs (Manual) Lymphocytes # (Manual) PT INR D-Dimer POC ABG pH 7.311 L POC ABG pCO2 47.4 H POC ABG pO2 Sodium Potassium Chloride Carbon Dioxide BUN Creatinine Glucose POC Glucose 165 H Calcium AST ALT C-Reactive Protein Total Protein Albumin Triglycerides Ur Specific Ariel Urine WBC (Auto) Urine Creatinine Urine Total Protein Lymph Enumerat CD4/CD8 % CD3 Cells Absolute CD3 Count % CD4 Cells Absolute CD4 Count % CD8 Cells Absolute CD8 Count Absolute CD19 Count HIV DNA Qual (PCR) HIV-1 RNA PCR copies/ml HIV-1 RNA (PCR) log Miscellaneous Test Crossmatch 06/24/18 06/24/18 06/24/18 04:12 04:46 05:24 WBC RBC Hgb Hct MCV RDW Plt Count Seg Neuts % (Manual) Lymphocytes % (Manual) Seg Neutrophils # Man Abs Lymphs (Manual) Lymphocytes # (Manual) PT INR D-Dimer POC ABG pH 7.250 L POC ABG pCO2 55.8 H POC ABG pO2 Sodium Potassium 5.4 H Chloride Carbon Dioxide BUN 44 H Creatinine 2.2 H Glucose 206 H POC Glucose 183 H Calcium 7.5 L AST ALT C-Reactive Protein Total Protein Albumin Triglycerides Ur Specific Ariel Urine WBC (Auto) Urine Creatinine Urine Total Protein Lymph Enumerat CD4/CD8 % CD3 Cells Absolute CD3 Count % CD4 Cells Absolute CD4 Count % CD8 Cells Absolute CD8 Count Absolute CD19 Count HIV DNA Qual (PCR) HIV-1 RNA PCR copies/ml HIV-1 RNA (PCR) log Miscellaneous Test Crossmatch 06/24/18 06/24/18 06/24/18 11:14 16:40 17:16 WBC RBC Hgb Hct MCV RDW Plt Count Seg Neuts % (Manual) Lymphocytes % (Manual) Seg Neutrophils # Man Abs Lymphs (Manual) Lymphocytes # (Manual) PT INR D-Dimer POC ABG pH 7.067 L POC ABG pCO2 91.7 H POC ABG pO2 134 H Sodium Potassium Chloride Carbon Dioxide BUN Creatinine Glucose POC Glucose 151 H 195 H Calcium AST ALT C-Reactive Protein Total Protein Albumin Triglycerides Ur Specific Ariel Urine WBC (Auto) Urine Creatinine Urine Total Protein Lymph Enumerat CD4/CD8 % CD3 Cells Absolute CD3 Count % CD4 Cells Absolute CD4 Count % CD8 Cells Absolute CD8 Count Absolute CD19 Count HIV DNA Qual (PCR) HIV-1 RNA PCR copies/ml HIV-1 RNA (PCR) log Miscellaneous Test Crossmatch 06/24/18 06/24/18 06/24/18 18:03 22:45 22:45 WBC RBC Hgb Hct MCV RDW Plt Count Seg Neuts % (Manual) Lymphocytes % (Manual) Seg Neutrophils # Man Abs Lymphs (Manual) Lymphocytes # (Manual) PT INR D-Dimer POC ABG pH 7.234 L POC ABG pCO2 59.9 H POC ABG pO2 121 H Sodium Potassium Chloride Carbon Dioxide BUN Creatinine Glucose POC Glucose Calcium AST ALT C-Reactive Protein Total Protein Albumin Triglycerides Ur Specific Ariel Urine WBC (Auto) 9.0 H Urine Creatinine 47.2 H Urine Total Protein 25 H Lymph Enumerat CD4/CD8 % CD3 Cells Absolute CD3 Count % CD4 Cells Absolute CD4 Count % CD8 Cells Absolute CD8 Count Absolute CD19 Count HIV DNA Qual (PCR) HIV-1 RNA PCR copies/ml HIV-1 RNA (PCR) log Miscellaneous Test Crossmatch 06/24/18 06/24/18 06/25/18 Unknown 23:59 04:36 WBC RBC Hgb Hct MCV RDW Plt Count Seg Neuts % (Manual) Lymphocytes % (Manual) Seg Neutrophils # Man Abs Lymphs (Manual) Lymphocytes # (Manual) PT 15.6 H INR 1.17 H D-Dimer POC ABG pH 7.200 L POC ABG pCO2 65.3 H POC ABG pO2 Sodium Potassium Chloride Carbon Dioxide BUN Creatinine Glucose POC Glucose 233 H Calcium AST ALT C-Reactive Protein Total Protein Albumin Triglycerides Ur Specific Ariel Urine WBC (Auto) Urine Creatinine Urine Total Protein Lymph Enumerat CD4/CD8 % CD3 Cells Absolute CD3 Count % CD4 Cells Absolute CD4 Count % CD8 Cells Absolute CD8 Count Absolute CD19 Count HIV DNA Qual (PCR) HIV-1 RNA PCR copies/ml HIV-1 RNA (PCR) log Miscellaneous Test Crossmatch 06/25/18 06/25/18 06/25/18 05:29 11:12 11:40 WBC RBC 2.67 L Hgb 8.5 L Hct 25.6 L MCV 96 H RDW 16.0 H Plt Count Seg Neuts % (Manual) Lymphocytes % (Manual) Seg Neutrophils # Man Abs Lymphs (Manual) Lymphocytes # (Manual) PT INR D-Dimer POC ABG pH POC ABG pCO2 POC ABG pO2 Sodium Potassium Chloride Carbon Dioxide BUN Creatinine Glucose POC Glucose 212 H 244 H Calcium AST ALT C-Reactive Protein Total Protein Albumin Triglycerides Ur Specific Ariel Urine WBC (Auto) Urine Creatinine Urine Total Protein Lymph Enumerat CD4/CD8 % CD3 Cells Absolute CD3 Count % CD4 Cells Absolute CD4 Count % CD8 Cells Absolute CD8 Count Absolute CD19 Count HIV DNA Qual (PCR) HIV-1 RNA PCR copies/ml HIV-1 RNA (PCR) log Miscellaneous Test Crossmatch 06/25/18 06/25/18 06/25/18 11:40 17:18 18:08 WBC RBC Hgb Hct MCV RDW Plt Count Seg Neuts % (Manual) Lymphocytes % (Manual) Seg Neutrophils # Man Abs Lymphs (Manual) Lymphocytes # (Manual) PT INR D-Dimer POC ABG pH 7.206 L POC ABG pCO2 68.1 H POC ABG pO2 Sodium Potassium 5.8 H Chloride Carbon Dioxide BUN 48 H Creatinine 2.1 H Glucose 293 H POC Glucose 264 H Calcium 7.5 L AST ALT C-Reactive Protein Total Protein Albumin Triglycerides Ur Specific Ariel Urine WBC (Auto) Urine Creatinine Urine Total Protein Lymph Enumerat CD4/CD8 % CD3 Cells Absolute CD3 Count % CD4 Cells Absolute CD4 Count % CD8 Cells Absolute CD8 Count Absolute CD19 Count HIV DNA Qual (PCR) HIV-1 RNA PCR copies/ml HIV-1 RNA (PCR) log Miscellaneous Test Crossmatch 06/25/18 06/25/18 06/26/18 21:20 23:59 05:10 WBC RBC Hgb Hct MCV RDW Plt Count Seg Neuts % (Manual) Lymphocytes % (Manual) Seg Neutrophils # Man Abs Lymphs (Manual) Lymphocytes # (Manual) PT INR D-Dimer POC ABG pH 7.220 L POC ABG pCO2 65.0 H POC ABG pO2 71 L Sodium Potassium Chloride Carbon Dioxide BUN Creatinine Glucose POC Glucose 231 H 259 H Calcium AST ALT C-Reactive Protein Total Protein Albumin Triglycerides Ur Specific Ariel Urine WBC (Auto) Urine Creatinine Urine Total Protein Lymph Enumerat CD4/CD8 % CD3 Cells Absolute CD3 Count % CD4 Cells Absolute CD4 Count % CD8 Cells Absolute CD8 Count Absolute CD19 Count HIV DNA Qual (PCR) HIV-1 RNA PCR copies/ml HIV-1 RNA (PCR) log Miscellaneous Test Crossmatch 06/26/18 06/26/18 06/26/18 05:29 07:25 07:25 WBC 12.0 H RBC 2.69 L Hgb 8.2 L Hct 25.5 L MCV 95 H RDW 15.7 H Plt Count Seg Neuts % (Manual) Lymphocytes % (Manual) Seg Neutrophils # Man Abs Lymphs (Manual) Lymphocytes # (Manual) PT INR D-Dimer POC ABG pH 7.240 L POC ABG pCO2 67.6 H POC ABG pO2 106 H Sodium Potassium 5.2 H Chloride Carbon Dioxide BUN 58 H Creatinine 1.9 H Glucose 219 H POC Glucose Calcium 7.9 L AST ALT C-Reactive Protein Total Protein Albumin Triglycerides Ur Specific Ariel Urine WBC (Auto) Urine Creatinine Urine Total Protein Lymph Enumerat CD4/CD8 % CD3 Cells Absolute CD3 Count % CD4 Cells Absolute CD4 Count % CD8 Cells Absolute CD8 Count Absolute CD19 Count HIV DNA Qual (PCR) HIV-1 RNA PCR copies/ml HIV-1 RNA (PCR) log Miscellaneous Test Crossmatch 06/26/18 06/26/18 06/26/18 07:25 12:49 17:42 WBC RBC Hgb Hct MCV RDW Plt Count Seg Neuts % (Manual) Lymphocytes % (Manual) Seg Neutrophils # Man Abs Lymphs (Manual) Lymphocytes # (Manual) PT INR D-Dimer POC ABG pH 7.178 L POC ABG pCO2 73.6 H POC ABG pO2 77 L Sodium Potassium Chloride Carbon Dioxide BUN Creatinine Glucose POC Glucose 276 H Calcium AST ALT C-Reactive Protein Total Protein Albumin Triglycerides 174 H Ur Specific Ariel Urine WBC (Auto) Urine Creatinine Urine Total Protein Lymph Enumerat CD4/CD8 % CD3 Cells Absolute CD3 Count % CD4 Cells Absolute CD4 Count % CD8 Cells Absolute CD8 Count Absolute CD19 Count HIV DNA Qual (PCR) HIV-1 RNA PCR copies/ml HIV-1 RNA (PCR) log Miscellaneous Test Crossmatch 06/26/18 06/26/18 06/26/18 18:25 21:24 23:22 WBC RBC Hgb Hct MCV RDW Plt Count Seg Neuts % (Manual) Lymphocytes % (Manual) Seg Neutrophils # Man Abs Lymphs (Manual) Lymphocytes # (Manual) PT INR D-Dimer POC ABG pH 7.152 L POC ABG pCO2 80.6 H POC ABG pO2 Sodium Potassium Chloride Carbon Dioxide BUN Creatinine Glucose POC Glucose 304 H 282 H Calcium AST ALT C-Reactive Protein Total Protein Albumin Triglycerides Ur Specific Ariel Urine WBC (Auto) Urine Creatinine Urine Total Protein Lymph Enumerat CD4/CD8 % CD3 Cells Absolute CD3 Count % CD4 Cells Absolute CD4 Count % CD8 Cells Absolute CD8 Count Absolute CD19 Count HIV DNA Qual (PCR) HIV-1 RNA PCR copies/ml HIV-1 RNA (PCR) log Miscellaneous Test Crossmatch 06/27/18 06/27/18 06/27/18 04:05 05:15 05:15 WBC RBC Hgb Hct MCV RDW Plt Count Seg Neuts % (Manual) Lymphocytes % (Manual) Seg Neutrophils # Man Abs Lymphs (Manual) Lymphocytes # (Manual) PT INR D-Dimer POC ABG pH 7.266 L POC ABG pCO2 62.8 H POC ABG pO2 Sodium Potassium 5.5 H Chloride Carbon Dioxide BUN 73 H Creatinine 2.1 H Glucose 211 H POC Glucose Calcium 7.7 L AST ALT C-Reactive Protein Total Protein Albumin Triglycerides Ur Specific Ariel Urine WBC (Auto) Urine Creatinine Urine Total Protein Lymph Enumerat CD4/CD8 % CD3 Cells Absolute CD3 Count % CD4 Cells Absolute CD4 Count % CD8 Cells Absolute CD8 Count Absolute CD19 Count HIV DNA Qual (PCR) HIV-1 RNA PCR copies/ml HIV-1 RNA (PCR) log Miscellaneous Test Flexitest 1 H Crossmatch 06/27/18 06/27/18 06/27/18 05:15 05:52 13:10 WBC RBC 2.41 L Hgb 7.6 L Hct 22.4 L MCV RDW Plt Count Seg Neuts % (Manual) Lymphocytes % (Manual) Seg Neutrophils # Man Abs Lymphs (Manual) Lymphocytes # (Manual) PT INR D-Dimer POC ABG pH POC ABG pCO2 POC ABG pO2 Sodium Potassium Chloride Carbon Dioxide BUN Creatinine Glucose POC Glucose 198 H 238 H Calcium AST ALT C-Reactive Protein Total Protein Albumin Triglycerides Ur Specific Ariel Urine WBC (Auto) Urine Creatinine Urine Total Protein Lymph Enumerat CD4/CD8 % CD3 Cells Absolute CD3 Count % CD4 Cells Absolute CD4 Count % CD8 Cells Absolute CD8 Count Absolute CD19 Count HIV DNA Qual (PCR) HIV-1 RNA PCR copies/ml HIV-1 RNA (PCR) log Miscellaneous Test Crossmatch 06/27/18 06/27/18 06/27/18 16:12 17:51 23:22 WBC RBC Hgb Hct MCV RDW Plt Count Seg Neuts % (Manual) Lymphocytes % (Manual) Seg Neutrophils # Man Abs Lymphs (Manual) Lymphocytes # (Manual) PT INR D-Dimer POC ABG pH POC ABG pCO2 POC ABG pO2 Sodium Potassium Chloride Carbon Dioxide BUN Creatinine Glucose POC Glucose 174 H 162 H 171 H Calcium AST ALT C-Reactive Protein Total Protein Albumin Triglycerides Ur Specific Ariel Urine WBC (Auto) Urine Creatinine Urine Total Protein Lymph Enumerat CD4/CD8 % CD3 Cells Absolute CD3 Count % CD4 Cells Absolute CD4 Count % CD8 Cells Absolute CD8 Count Absolute CD19 Count HIV DNA Qual (PCR) HIV-1 RNA PCR copies/ml HIV-1 RNA (PCR) log Miscellaneous Test Crossmatch 06/28/18 06/28/18 06/28/18 04:36 04:54 05:10 WBC RBC Hgb Hct MCV RDW Plt Count Seg Neuts % (Manual) Lymphocytes % (Manual) Seg Neutrophils # Man Abs Lymphs (Manual) Lymphocytes # (Manual) PT INR D-Dimer POC ABG pH 7.257 L POC ABG pCO2 68.8 H POC ABG pO2 Sodium Potassium Chloride Carbon Dioxide BUN 93 H Creatinine 2.4 H Glucose 186 H POC Glucose 193 H Calcium 8.3 L AST ALT C-Reactive Protein Total Protein Albumin Triglycerides Ur Specific Ariel Urine WBC (Auto) Urine Creatinine Urine Total Protein Lymph Enumerat CD4/CD8 % CD3 Cells Absolute CD3 Count % CD4 Cells Absolute CD4 Count % CD8 Cells Absolute CD8 Count Absolute CD19 Count HIV DNA Qual (PCR) HIV-1 RNA PCR copies/ml HIV-1 RNA (PCR) log Miscellaneous Test Crossmatch 06/28/18 06/28/18 06/28/18 12:15 17:43 18:26 WBC RBC Hgb Hct MCV RDW Plt Count Seg Neuts % (Manual) Lymphocytes % (Manual) Seg Neutrophils # Man Abs Lymphs (Manual) Lymphocytes # (Manual) PT INR D-Dimer POC ABG pH 7.123 L POC ABG pCO2 82.7 H POC ABG pO2 Sodium Potassium Chloride Carbon Dioxide BUN Creatinine Glucose POC Glucose 154 H 194 H Calcium AST ALT C-Reactive Protein Total Protein Albumin Triglycerides Ur Specific Ariel Urine WBC (Auto) Urine Creatinine Urine Total Protein Lymph Enumerat CD4/CD8 % CD3 Cells Absolute CD3 Count % CD4 Cells Absolute CD4 Count % CD8 Cells Absolute CD8 Count Absolute CD19 Count HIV DNA Qual (PCR) HIV-1 RNA PCR copies/ml HIV-1 RNA (PCR) log Miscellaneous Test Crossmatch 06/28/18 06/29/18 06/29/18 22:08 00:12 04:38 WBC RBC Hgb Hct MCV RDW Plt Count Seg Neuts % (Manual) Lymphocytes % (Manual) Seg Neutrophils # Man Abs Lymphs (Manual) Lymphocytes # (Manual) PT INR D-Dimer POC ABG pH 7.172 L 7.158 L POC ABG pCO2 80.4 H 76.6 H POC ABG pO2 143 H Sodium Potassium Chloride Carbon Dioxide BUN Creatinine Glucose POC Glucose 202 H Calcium AST ALT C-Reactive Protein Total Protein Albumin Triglycerides Ur Specific Ariel Urine WBC (Auto) Urine Creatinine Urine Total Protein Lymph Enumerat CD4/CD8 % CD3 Cells Absolute CD3 Count % CD4 Cells Absolute CD4 Count % CD8 Cells Absolute CD8 Count Absolute CD19 Count HIV DNA Qual (PCR) HIV-1 RNA PCR copies/ml HIV-1 RNA (PCR) log Miscellaneous Test Crossmatch 06/29/18 06/29/18 06/29/18 05:15 05:15 05:32 WBC 12.3 H RBC 1.93 L Hgb 5.9 L* Hct 18.2 L* MCV 95 H RDW Plt Count 127 L Seg Neuts % (Manual) Lymphocytes % (Manual) Seg Neutrophils # Man Abs Lymphs (Manual) Lymphocytes # (Manual) PT INR D-Dimer POC ABG pH POC ABG pCO2 POC ABG pO2 Sodium 136 L Potassium 5.9 H Chloride 94.3 L Carbon Dioxide BUN 139 H Creatinine 4.2 H D Glucose 157 H POC Glucose 150 H Calcium 8.2 L AST ALT C-Reactive Protein Total Protein Albumin Triglycerides Ur Specific Ariel Urine WBC (Auto) Urine Creatinine Urine Total Protein Lymph Enumerat CD4/CD8 % CD3 Cells Absolute CD3 Count % CD4 Cells Absolute CD4 Count % CD8 Cells Absolute CD8 Count Absolute CD19 Count HIV DNA Qual (PCR) HIV-1 RNA PCR copies/ml HIV-1 RNA (PCR) log Miscellaneous Test Crossmatch 06/29/18 06/29/18 06/29/18 08:07 09:50 11:55 WBC RBC Hgb 6.0 L Hct 18.4 L* MCV RDW Plt Count Seg Neuts % (Manual) Lymphocytes % (Manual) Seg Neutrophils # Man Abs Lymphs (Manual) Lymphocytes # (Manual) PT INR D-Dimer POC ABG pH POC ABG pCO2 POC ABG pO2 Sodium Potassium Chloride Carbon Dioxide BUN Creatinine Glucose POC Glucose 236 H Calcium AST ALT C-Reactive Protein Total Protein Albumin Triglycerides Ur Specific Ariel Urine WBC (Auto) Urine Creatinine Urine Total Protein Lymph Enumerat CD4/CD8 % CD3 Cells Absolute CD3 Count % CD4 Cells Absolute CD4 Count % CD8 Cells Absolute CD8 Count Absolute CD19 Count HIV DNA Qual (PCR) HIV-1 RNA PCR copies/ml HIV-1 RNA (PCR) log Miscellaneous Test Crossmatch See Detail 06/29/18 06/30/18 06/30/18 18:29 00:08 04:47 WBC RBC Hgb Hct MCV RDW Plt Count Seg Neuts % (Manual) Lymphocytes % (Manual) Seg Neutrophils # Man Abs Lymphs (Manual) Lymphocytes # (Manual) PT INR D-Dimer POC ABG pH 7.182 L POC ABG pCO2 67.7 H POC ABG pO2 Sodium Potassium Chloride Carbon Dioxide BUN Creatinine Glucose POC Glucose 171 H 159 H Calcium AST ALT C-Reactive Protein Total Protein Albumin Triglycerides Ur Specific Ariel Urine WBC (Auto) Urine Creatinine Urine Total Protein Lymph Enumerat CD4/CD8 % CD3 Cells Absolute CD3 Count % CD4 Cells Absolute CD4 Count % CD8 Cells Absolute CD8 Count Absolute CD19 Count HIV DNA Qual (PCR) HIV-1 RNA PCR copies/ml HIV-1 RNA (PCR) log Miscellaneous Test Crossmatch 06/30/18 06/30/18 06/30/18 05:07 06:00 12:43 WBC 18.2 H RBC 2.43 L Hgb 7.4 L Hct 22.0 L MCV RDW 15.3 H Plt Count 111 L Seg Neuts % (Manual) Lymphocytes % (Manual) Seg Neutrophils # Man Abs Lymphs (Manual) Lymphocytes # (Manual) PT INR D-Dimer POC ABG pH POC ABG pCO2 POC ABG pO2 Sodium Potassium Chloride Carbon Dioxide BUN Creatinine Glucose POC Glucose 162 H 153 H Calcium AST ALT C-Reactive Protein Total Protein Albumin Triglycerides Ur Specific Ariel Urine WBC (Auto) Urine Creatinine Urine Total Protein Lymph Enumerat CD4/CD8 % CD3 Cells Absolute CD3 Count % CD4 Cells Absolute CD4 Count % CD8 Cells Absolute CD8 Count Absolute CD19 Count HIV DNA Qual (PCR) HIV-1 RNA PCR copies/ml HIV-1 RNA (PCR) log Miscellaneous Test Crossmatch 06/30/18 06/30/18 07/01/18 18:07 Unknown 00:06 WBC RBC Hgb Hct MCV RDW Plt Count Seg Neuts % (Manual) Lymphocytes % (Manual) Seg Neutrophils # Man Abs Lymphs (Manual) Lymphocytes # (Manual) PT INR D-Dimer POC ABG pH POC ABG pCO2 POC ABG pO2 Sodium Potassium 5.9 H Chloride 95.5 L Carbon Dioxide BUN 164 H Creatinine 5.2 H Glucose 151 H POC Glucose 183 H 208 H Calcium 7.6 L AST ALT C-Reactive Protein Total Protein Albumin Triglycerides 223 H Ur Specific Ariel Urine WBC (Auto) Urine Creatinine Urine Total Protein Lymph Enumerat CD4/CD8 % CD3 Cells Absolute CD3 Count % CD4 Cells Absolute CD4 Count % CD8 Cells Absolute CD8 Count Absolute CD19 Count HIV DNA Qual (PCR) HIV-1 RNA PCR copies/ml HIV-1 RNA (PCR) log Miscellaneous Test Crossmatch 07/01/18 07/01/18 07/01/18 04:47 05:43 06:00 WBC RBC Hgb Hct MCV RDW Plt Count Seg Neuts % (Manual) Lymphocytes % (Manual) Seg Neutrophils # Man Abs Lymphs (Manual) Lymphocytes # (Manual) PT INR D-Dimer POC ABG pH 7.060 L POC ABG pCO2 121.0 H POC ABG pO2 Sodium Potassium 5.8 H Chloride 94.1 L Carbon Dioxide BUN 144 H Creatinine 3.1 H Glucose 208 H POC Glucose 214 H Calcium 6.7 L AST ALT C-Reactive Protein Total Protein Albumin Triglycerides Ur Specific Ariel Urine WBC (Auto) Urine Creatinine Urine Total Protein Lymph Enumerat CD4/CD8 % CD3 Cells Absolute CD3 Count % CD4 Cells Absolute CD4 Count % CD8 Cells Absolute CD8 Count Absolute CD19 Count HIV DNA Qual (PCR) HIV-1 RNA PCR copies/ml HIV-1 RNA (PCR) log Miscellaneous Test Crossmatch 07/01/18 07/01/18 07/01/18 06:00 06:52 10:00 WBC 17.9 H RBC 2.14 L Hgb 6.5 L 6.6 L Hct 20.0 L 20.5 L MCV RDW 15.9 H Plt Count 94 L Seg Neuts % (Manual) Lymphocytes % (Manual) Seg Neutrophils # Man Abs Lymphs (Manual) Lymphocytes # (Manual) PT INR D-Dimer 2387.14 H POC ABG pH POC ABG pCO2 POC ABG pO2 Sodium Potassium Chloride Carbon Dioxide BUN Creatinine Glucose POC Glucose Calcium AST ALT C-Reactive Protein Total Protein Albumin Triglycerides Ur Specific Ariel Urine WBC (Auto) Urine Creatinine Urine Total Protein Lymph Enumerat CD4/CD8 % CD3 Cells Absolute CD3 Count % CD4 Cells Absolute CD4 Count % CD8 Cells Absolute CD8 Count Absolute CD19 Count HIV DNA Qual (PCR) HIV-1 RNA PCR copies/ml HIV-1 RNA (PCR) log Miscellaneous Test Crossmatch 07/01/18 07/01/18 07/01/18 11:11 11:41 18:38 WBC RBC Hgb Hct MCV RDW Plt Count Seg Neuts % (Manual) Lymphocytes % (Manual) Seg Neutrophils # Man Abs Lymphs (Manual) Lymphocytes # (Manual) PT INR D-Dimer POC ABG pH 7.151 L 7.168 L POC ABG pCO2 100.4 H 109.4 H POC ABG pO2 151 H 199 H Sodium Potassium Chloride Carbon Dioxide BUN Creatinine Glucose POC Glucose 213 H Calcium AST ALT C-Reactive Protein Total Protein Albumin Triglycerides Ur Specific Ariel Urine WBC (Auto) Urine Creatinine Urine Total Protein Lymph Enumerat CD4/CD8 % CD3 Cells Absolute CD3 Count % CD4 Cells Absolute CD4 Count % CD8 Cells Absolute CD8 Count Absolute CD19 Count HIV DNA Qual (PCR) HIV-1 RNA PCR copies/ml HIV-1 RNA (PCR) log Miscellaneous Test Crossmatch 07/01/18 07/02/18 07/02/18 23:40 04:32 04:32 WBC 14.8 H RBC 2.68 L Hgb 8.1 L Hct 23.8 L MCV RDW Plt Count 81 L Seg Neuts % (Manual) Lymphocytes % (Manual) Seg Neutrophils # Man Abs Lymphs (Manual) Lymphocytes # (Manual) PT INR D-Dimer POC ABG pH POC ABG pCO2 POC ABG pO2 Sodium 151 H D Potassium 3.1 L D Chloride Carbon Dioxide 39 H D BUN 108 H Creatinine 1.8 H Glucose 44 L POC Glucose < 40 L Calcium 6.6 L AST ALT C-Reactive Protein Total Protein Albumin Triglycerides Ur Specific Ariel Urine WBC (Auto) Urine Creatinine Urine Total Protein Lymph Enumerat CD4/CD8 % CD3 Cells Absolute CD3 Count % CD4 Cells Absolute CD4 Count % CD8 Cells Absolute CD8 Count Absolute CD19 Count HIV DNA Qual (PCR) HIV-1 RNA PCR copies/ml HIV-1 RNA (PCR) log Miscellaneous Test Crossmatch 07/02/18 07/02/18 07/02/18 05:00 05:12 11:54 WBC RBC Hgb Hct MCV RDW Plt Count Seg Neuts % (Manual) Lymphocytes % (Manual) Seg Neutrophils # Man Abs Lymphs (Manual) Lymphocytes # (Manual) PT INR D-Dimer POC ABG pH 7.319 L POC ABG pCO2 89.8 H POC ABG pO2 119 H Sodium Potassium Chloride Carbon Dioxide BUN Creatinine Glucose POC Glucose < 40 L < 40 L Calcium AST ALT C-Reactive Protein Total Protein Albumin Triglycerides Ur Specific Ariel Urine WBC (Auto) Urine Creatinine Urine Total Protein Lymph Enumerat CD4/CD8 % CD3 Cells Absolute CD3 Count % CD4 Cells Absolute CD4 Count % CD8 Cells Absolute CD8 Count Absolute CD19 Count HIV DNA Qual (PCR) HIV-1 RNA PCR copies/ml HIV-1 RNA (PCR) log Miscellaneous Test Crossmatch 07/02/18 07/03/18 07/03/18 14:09 00:17 04:28 WBC RBC Hgb Hct MCV RDW Plt Count Seg Neuts % (Manual) Lymphocytes % (Manual) Seg Neutrophils # Man Abs Lymphs (Manual) Lymphocytes # (Manual) PT INR D-Dimer POC ABG pH 7.267 L POC ABG pCO2 93.3 H POC ABG pO2 69 L Sodium Potassium Chloride Carbon Dioxide BUN Creatinine Glucose POC Glucose 53 L 69 L Calcium AST ALT C-Reactive Protein Total Protein Albumin Triglycerides Ur Specific Ariel Urine WBC (Auto) Urine Creatinine Urine Total Protein Lymph Enumerat CD4/CD8 % CD3 Cells Absolute CD3 Count % CD4 Cells Absolute CD4 Count % CD8 Cells Absolute CD8 Count Absolute CD19 Count HIV DNA Qual (PCR) HIV-1 RNA PCR copies/ml HIV-1 RNA (PCR) log Miscellaneous Test Crossmatch 07/03/18 07/03/18 07/03/18 05:00 05:00 05:16 WBC RBC 2.23 L Hgb 7.0 L Hct 20.3 L MCV RDW Plt Count 81 L Seg Neuts % (Manual) Lymphocytes % (Manual) Seg Neutrophils # Man Abs Lymphs (Manual) Lymphocytes # (Manual) PT INR D-Dimer POC ABG pH POC ABG pCO2 POC ABG pO2 Sodium 155 H Potassium 3.3 L Chloride Carbon Dioxide 40 H BUN 94 H Creatinine 1.7 H Glucose 115 H POC Glucose 113 H Calcium 6.9 L AST ALT C-Reactive Protein Total Protein Albumin Triglycerides Ur Specific Ariel Urine WBC (Auto) Urine Creatinine Urine Total Protein Lymph Enumerat CD4/CD8 % CD3 Cells Absolute CD3 Count % CD4 Cells Absolute CD4 Count % CD8 Cells Absolute CD8 Count Absolute CD19 Count HIV DNA Qual (PCR) HIV-1 RNA PCR copies/ml HIV-1 RNA (PCR) log Miscellaneous Test Crossmatch 07/03/18 07/03/18 07/03/18 10:24 11:12 17:52 WBC RBC Hgb Hct MCV RDW Plt Count Seg Neuts % (Manual) Lymphocytes % (Manual) Seg Neutrophils # Man Abs Lymphs (Manual) Lymphocytes # (Manual) PT INR D-Dimer POC ABG pH POC ABG pCO2 POC ABG pO2 Sodium Potassium Chloride Carbon Dioxide BUN Creatinine Glucose POC Glucose 125 H 167 H Calcium AST ALT C-Reactive Protein Total Protein Albumin Triglycerides Ur Specific Ariel Urine WBC (Auto) Urine Creatinine Urine Total Protein Lymph Enumerat CD4/CD8 % CD3 Cells Absolute CD3 Count % CD4 Cells Absolute CD4 Count % CD8 Cells Absolute CD8 Count Absolute CD19 Count HIV DNA Qual (PCR) HIV-1 RNA PCR copies/ml HIV-1 RNA (PCR) log Miscellaneous Test Crossmatch See Detail 07/03/18 07/03/18 07/04/18 19:15 23:43 03:57 WBC RBC Hgb 7.8 L Hct 23.8 L MCV RDW Plt Count Seg Neuts % (Manual) Lymphocytes % (Manual) Seg Neutrophils # Man Abs Lymphs (Manual) Lymphocytes # (Manual) PT INR D-Dimer POC ABG pH 7.229 L POC ABG pCO2 99.8 H POC ABG pO2 Sodium Potassium Chloride Carbon Dioxide BUN Creatinine Glucose POC Glucose 176 H Calcium AST ALT C-Reactive Protein Total Protein Albumin Triglycerides Ur Specific Ariel Urine WBC (Auto) Urine Creatinine Urine Total Protein Lymph Enumerat CD4/CD8 % CD3 Cells Absolute CD3 Count % CD4 Cells Absolute CD4 Count % CD8 Cells Absolute CD8 Count Absolute CD19 Count HIV DNA Qual (PCR) HIV-1 RNA PCR copies/ml HIV-1 RNA (PCR) log Miscellaneous Test Crossmatch 07/04/18 06:06 WBC RBC Hgb Hct MCV RDW Plt Count Seg Neuts % (Manual) Lymphocytes % (Manual) Seg Neutrophils # Man Abs Lymphs (Manual) Lymphocytes # (Manual) PT INR D-Dimer POC ABG pH POC ABG pCO2 POC ABG pO2 Sodium Potassium Chloride Carbon Dioxide BUN Creatinine Glucose POC Glucose 168 H Calcium AST ALT C-Reactive Protein Total Protein Albumin Triglycerides Ur Specific Ariel Urine WBC (Auto) Urine Creatinine Urine Total Protein Lymph Enumerat CD4/CD8 % CD3 Cells Absolute CD3 Count % CD4 Cells Absolute CD4 Count % CD8 Cells Absolute CD8 Count Absolute CD19 Count HIV DNA Qual (PCR) HIV-1 RNA PCR copies/ml HIV-1 RNA (PCR) log Miscellaneous Test Crossmatch Allied health notes reviewed: nursing
[2018-07-04] MEDS: MEPRON PO SCH ×2 (09:38→21:24)
[2018-07-04] MEDS: SOLU-Medrol IV SCH ×2 (09:38→21:24)
[2018-07-04] MEDS: D5/0.45NS 1,000 ML IV SCH (09:38)
[2018-07-04] MEDS: PREVACID SOLUTAB FEEDTUBE SCH (09:39)
[2018-07-04] MEDS: CYTOVENE 500 MG in NACL 0.9% 250ML 250 ML IV SCH (09:39)
[2018-07-04] MEDS: SODIUM CHLORIDE FLUSH SYRINGE 10 ML IV SCH (09:40)
[2018-07-04 10:07] LABS: Hematocrit 23.9 % (35.5-45.6); Hemoglobin 7.7 gm/dl (11.8-15.2); Mean Corpuscular HGB Conc 32 % (32-34); Mean Corpuscular Volume 93 fl (84-94); Red Blood Count 2.57 M/mm3 (3.65-5.03); Red Cell Distribution Width 15.3 % (13.2-15.2)
[2018-07-04 10:12] LABS: Platelet Count 68 K/mm3 (140-440)
[2018-07-04 10:26] LABS: Calcium 7.6 mg/dL (8.4-10.2)
--- NOTE | 2018-07-04 11:47 | Progress Note ---
Assessment and Plan - Patient Problems (1) Acute tubular necrosis Current Visit: Yes Status: Acute Plan to address problem: Kidney injury due to acute tubular necrosis of multifactorial etiology secondary to contrast exposure, septic shock, medications including voriconazole/Bactrim. Pt is now in recovery phase of ATN, kidney indices improving with increased UOP. metabolic acidosis improved, now more respiratory acidosis with incomplete metabolic compensation. Cont supportive care for ATN, cont vasopressor support to maintain MAP 65mmHg, avoid further nephrotoxins, NSAIDs, IV contrast if possible. Cont hypotonic IVF while receiving gancyclovir/ampho (2) AIDS (acquired immune deficiency syndrome) Current Visit: Yes Status: Acute Plan to address problem: Continue management by infectious disease consultants (3) Hyperkalemia Current Visit: Yes Status: Acute Plan to address problem: improved with correction of acidosis. (4) Acute respiratory failure with hypoxia Current Visit: Yes Status: Acute Plan to address problem: Ventilator management by pulmonary (5) Bilateral pneumonia Current Visit: Yes Status: Acute Qualifiers: Pneumonia type: due to unspecified organism Lung location: unspecified part of lung Qualified Code(s): J18.9 - Pneumonia, unspecified organism Plan to address problem: Continue antibiotics per infectious disease economic consultant (6) Anemia Current Visit: Yes Status: Acute Plan to address problem: Being managed by director of manufacturing (7) Respiratory acidosis Current Visit: Yes Status: Acute Plan to address problem: with metabolic compensation in the setting of renal recovery. pt off bicarb gtt. cont vent management as per ICU team (8) Hypernatremia Current Visit: Yes Status: Acute Plan to address problem: due to polyuric phase of ATN, cont D5 1/2NS and free water flushes via NGT to correct free water deficit. Subjective Date of service: 07/04/18 Principal diagnosis: Acute Hypoxemic Resp Failure; AIDS / HIV positive; Severe Sepsis due to PNA Interval history: pt remains intubated, sedated. on vasopressor support with levophed. improving renal function noted with excellent UOP Objective - Vital Signs Vital signs: Vital Signs - 12hr 07/04/18 07/04/18 07/04/18 00:00 01:00 02:00 Temperature 98.0 F Pulse Rate 88 101 H 109 H Pulse Rate [ Apical] Pulse Rate [ Bilateral] Respiratory 26 H 24 26 H Rate Respiratory Rate [Bilateral ] Blood Pressure 146/102 133/75 146/80 O2 Sat by Pulse 93 81 L 94 Oximetry 07/04/18 07/04/18 07/04/18 02:01 02:10 03:00 Temperature Pulse Rate 100 H Pulse Rate [ Apical] Pulse Rate [ 106 H 101 H Bilateral] Respiratory 25 H Rate Respiratory 35 H 34 H Rate [Bilateral ] Blood Pressure 116/61 O2 Sat by Pulse 96 Oximetry 07/04/18 07/04/18 07/04/18 03:18 03:24 04:00 Temperature Pulse Rate 96 H 97 H Pulse Rate [ 99 H Apical] Pulse Rate [ Bilateral] Respiratory 21 Rate Respiratory Rate [Bilateral ] Blood Pressure 121/60 118/56 O2 Sat by Pulse 96 96 Oximetry 07/04/18 07/04/18 07/04/18 05:00 06:00 06:56 Temperature Pulse Rate 99 H 98 H 92 H Pulse Rate [ Apical] Pulse Rate [ Bilateral] Respiratory 18 18 Rate Respiratory Rate [Bilateral ] Blood Pressure 112/49 115/56 O2 Sat by Pulse 95 95 Oximetry 07/04/18 07/04/18 07/04/18 07:00 08:00 08:50 Temperature Pulse Rate 94 H 96 H Pulse Rate [ Apical] Pulse Rate [ Bilateral] Respiratory 22 36 H Rate Respiratory Rate [Bilateral ] Blood Pressure 117/63 112/58 O2 Sat by Pulse 96 96 104 H Oximetry 07/04/18 07/04/18 07/04/18 08:58 09:25 11:34 Temperature Pulse Rate 109 H Pulse Rate [ Apical] Pulse Rate [ 104 H 107 H Bilateral] Respiratory Rate Respiratory 36 H 36 H Rate [Bilateral ] Blood Pressure 123/56 O2 Sat by Pulse 110 H Oximetry - General Appearance General appearance: chronically ill, sedated on ventilator, intubated EENT: ATNC, PERRL, mucous membranes moist Neck: no JVD Respiratory: Present: Rales, Ronchi Cardiology: regular, S1S2 Gastrointestinal: normoactive bowel sounds Integumentary: no rash, other (+ edema b/l LE ) Neurologic: other (intubated ) - Lab 07/04/18 Unknown 07/04/18 Unknown Most recent lab results Calcium 7.6 mg/dL (8.4-10.2) L 07/04/18 Unknown Urine Creatinine 47.2 mg/dL (0.1-20.0) H 06/24/18 22:45 Urine Sodium 40 mmol/L 06/24/18 22:45 Urine Total Protein 25 mg/dL (5-11.8) H 06/24/18 22:45 Medications & Allergies - Medications Allergies/Adverse Reactions: Allergies No Known Allergies Allergy (Verified 06/19/18 06:10) Home Medications: Home Medications Medication Instructions Recorded Confirmed Last Taken Type ALBUTEROL Inhaler (OR & NICU) 2 puff IH QID PRN 06/19/18 06/19/18 Unknown History [Proair] Pantoprazole [Protonix] 40 mg PO QDAY 06/19/18 06/19/18 Unknown History levoFLOXacin [Levaquin TAB] 500 mg PO QDAY 06/19/18 06/19/18 Unknown History Active Medications: Generic Name Dose Route Start Last Admin Trade Name Freq PRN Reason Stop Dose Admin Acetaminophen 650 mg 06/19/18 06:30 07/02/18 21:41 Tylenol PO 650 mg Q4H PRN Administration Pain MILD(1-3)/Fever >100.5/[place] Albuterol/Ipratropium 1 ampul 06/26/18 14:00 07/04/18 08:58 Duoneb *Not For Prn Use* IH 1 ampul Q6HRT PEYTON Administration Lipase/Protease/Amylase 1 each 07/03/18 14:31 Pancreaze 10,500 Unit FEEDTUBE PRN PRN For Clogged Feeding Tube Atovaquone 750 mg 07/03/18 22:00 07/04/18 09:38 Mepron PO 750 mg BID PEYTON Administration Azithromycin 1,200 mg 06/25/18 11:00 07/02/18 10:42 Zithromax PO 1,200 mg Mo PEYTON Administration Dextrose 50 ml 07/02/18 15:00 D50w (25gm) Syringe IV PRN PRN Hypoglycemia Fentanyl 50 mcg 06/19/18 06:00 06/30/18 21:56 Sublimaze IV 50 mcg Q10MIN PRN Administration ANALGESIA Hydrophilic Ointment 1 applic 06/19/18 06:00 Vaseline Lip Therapy TP Q2HR PRN Dry Lips Fentanyl Citrate 2,000 mcg in 100 mls @ 3.86 mls/hr 06/19/18 06:00 07/03/18 22:22 Fentanyl Drip Premix IV 3 mcg/kg/hr TITR PEYTON 11.581 mls/hr Administration Protocol 1 MCG/KG/HR Norepinephrine 4 mg in 250 mls @ 7.5 mls/hr 06/19/18 15:00 07/02/18 09:50 Levophed Drip 4 Mg/Ns 250 Ml IV 0 mcg/min TITR PEYTON 0 mls/hr Titration Protocol 2 MCG/MIN Propofol 1,000 mg in 100 mls @ 2.601 mls/hr 06/24/18 15:00 07/04/18 10:33 Diprivan 10 Mg/Ml IV 25 mcg/kg/min TITR PEYTON 13.005 mls/hr Administration Protocol 5 MCG/KG/MIN Dextrose 500 mls @ 5 mls/hr 06/25/18 08:56 06/28/18 11:07 D5w IV 5 mls/hr PRN PRN Administration FLUSH BEFORE AND AFTER AMPHO B Vasopressin 20 unit/ Sodium 101 mls @ 9.09 mls/hr 06/29/18 23:00 07/03/18 22: 23 Chloride IV 0 units/min TITR PEYTON 0 mls/hr Titration Protocol 0.03 UNITS/MIN Dextrose/Sodium Chloride 1,000 mls @ 42 mls/hr 07/03/18 09:00 07/04/18 09:38 D5/0.45ns IV 42 mls/hr DIRECT PEYTON Administration Ganciclovir Sodium 500 mg/ 250 mls @ 100 mls/hr 07/03/18 12:00 07/04/18 09:39 Sodium Chloride IV 100 mls/hr Q12HR PEYTON Administration Amphotericin B 500 mg/ 600 mls @ 250 mls/hr 07/03/18 22:00 07/03/18 23:32 Dextrose IV 250 mls/hr Q24H PEYTON Administration Insulin Human Lispro 0 unit 06/20/18 13:00 07/04/18 06:58 Humalog SUB-Q 3 unit Q6HR PEYTON Administration Protocol Lansoprazole 30 mg 07/03/18 11:00 07/04/18 09:39 Prevacid Solutab FEEDTUBE 30 mg QDAY PEYTON Administration Methylprednisolone Sodium Succinate 40 mg 06/19/18 22:00 07/04/18 09:38 Solu-Medrol IV 40 mg Q12HR PEYTON Administration Multi-Ingred Cream/Lotion/Oil/Oint 1 applic 06/19/18 06:00 Artificial Tears Ophth Oint OU Q4HR PRN Dry Eye(s) Ondansetron HCl 4 mg 06/19/18 06:30 06/30/18 21:55 Zofran IV 4 mg Q8H PRN Administration Nausea And Vomiting Phenylephrine HCl 2 spray 06/24/18 06:07 06/25/18 05:35 Thompson-Synephrine NS 2 spray Q4H PRN Administration Congestion Simple Syrup 15 ml 07/03/18 14:31 Simple Syrup FEEDTUBE PRN PRN Hypoglycemia Simple Syrup 30 ml 07/03/18 14:31 Simple Syrup FEEDTUBE PRN PRN Hypoglycemia Sodium Bicarbonate 325 mg 07/03/18 15:14 Sodium Bicarbonate FEEDTUBE PRN PRN For Clogged Feeding Tube Sodium Chloride 10 ml 06/19/18 10:00 07/04/18 09:40 Sodium Chloride Flush Syringe 10 Ml IV 10 ml BID PEYTON Administration Sodium Chloride 10 ml 06/19/18 06:30 Sodium Chloride Flush Syringe 10 Ml IV PRN PRN LINE FLUSH
[2018-07-04] MEDS: fentaNYL DRIP Premix 2,000 MCG/100 ML BAG IV SCH ×2 (13:58→22:12)
--- NOTE | 2018-07-04 14:10 | Progress Note ---
Assessment and Plan Cultures: 06/19/2018 blood culture: no growth 06/19/2018 tracheal aspirate: usual resp david/ Rothia mucilaginosa 06/19/2018 fungal blood culture: no growth 06/20/2018 Serum CrAg: negative Cytology PJP stain negative GMS stain showed septated fungal hyphae with acute angle branching and yeast forms c/w Aspergillus, Fusarium, Scedosporium and other Dematiaceous fungi. DFA showed rare PJP CMV DNA PCR 06/19/2018 13,166 BAL 06/25/2018 Tigist albicans A/P: 32/M with: #1 Bilateral pneumonia: Extensive bilateral ground glass opacities and pneumonia with severe hypoxia. Unclear etiology ? PJP versus invasive fungal versus disseminated CMV. 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 Lung cytology GMS stain showed septated fungal hyphae with acute angle branching and yeast forms c/w Aspergillus, Fusarium, Scedosporium and other Dematiaceous fungi. 06/19/2018 tracheal aspirate showed usual resp david/ Rothia mucilaginosa. 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 patient has been on bactrim IV for 5 days and IV voriconazole for 4 days witouht any improvement on vent setting still at FiO2 70% p12. - S/P bronch/BAL - pending - s/p voriconazole x 4 days - no improvement, stopped on 06/25 - on amphothericin started on 06/25 - Serum CMV DNA PCR 06/19/2018 13,166 - BAL 06/25/2018 Tigist albicans likely a colonizer, AFB negative. - completed vancomycin renally dosed to cover Rothia D5 on 06/28 - Aspregillus ag negative - S/p bactrim renally adjusted D15 on 07/03 - now on amphothericin, ganciclovir and mepron #2 Acute respiratory failure: Requiring mechanical ventilation. worsening today FIo2 70% -->60--> 50 --> 60-->90% p 15 -->12-->9 #3 HIV, likely AIDS:CD4=10 / VL 1,300,000 copies #4 Sepsis: Likely secondary to above. #5 JENNIFER: better today, all renally adjusted #6 Sepsis with septic shock: still high grade fever, off levophed, still on vasopressine; likely from above ? sinusitis ? 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 Extensive team discussion with Linen Room Supervisor, aunt, uncle and cousin about prognosis on 07/02/2018. Patient with no history of ETOH, drugs, tob, has 2 cats and 2 dogs, per family since his suddenly in March 2018 he was deppressed and fighting a dry cough for 3 months. He lost 30L weight in 3 months. Family is unaware of HIV diagnosis, it was not disclosed. Discussed with pharmacy Will follow Keke Manzo MD Infectious Diseases Stress Analyst [facility] M [phone] O [phone] Subjective Date of service: 07/04/18 Principal diagnosis: Acute Hypoxemic Resp Failure; AIDS / HIV positive; Severe Sepsis due to PNA Interval history: Patient remains critically ill intubated on CMV FiO2 90%, p 8, off levophed, bicarb gtt and vasopressin today. No fever for 24h ROS unable to obtain Objective - Exam Narrative Exam: General appearance: sedated on the vent FIO2 90% p 10 Eyes: anicteric sclerae, moist conjunctivae; no lid-lag; PERRLA +conjunctivae edema shruthi HENT: Atraumatic; oropharynx +ETT. Neck: Trachea midline; supple, no thyromegaly or lymphadenopathy Lungs: shruthi loud rhonchi CV: tachycardic Abdomen: Soft, non-tender; no masses or hepatosplenomegaly Extremities: +marked shruthi arm edema / leg edema Skin: Normal temperature, turgor and texture; no rash, ulcers or subcutaneous nodules Psych: sedated. Neuro: sedated Rust Right IJ TLC - Constitutional Vitals: Vital Signs Temp Pulse Resp BP Pulse Ox 98.0 F 109 H 36 H 123/56 110 H 07/04/18 00:00 07/04/18 11:34 07/04/18 09:25 07/04/18 11:34 07/04/18 11:34 Temperature -Last 24 Hours Temperature 98.0 F Temperature 98.5 F Temperature 98.6 F Temperature 98.6 F Temperature 98.9 F - Labs CBC & Chem 7: 07/04/18 Unknown 07/04/18 Unknown Labs: Abnormal lab results 07/03/18 07/03/18 07/03/18 Range/Units 10:24 17:52 19:15 WBC (4.5-11.0) K/mm3 RBC (3.65-5.03) M/mm3 Hgb 7.8 L (11.8-15.2) gm/dl Hct 23.8 L (35.5-45.6) % RDW (13.2-15.2) % Plt Count (140-440) K/mm3 POC ABG pH (7.35-7.45) POC ABG pCO2 (35-45) Sodium (137-145) mmol/L Carbon Dioxide (22-30) mmol/L BUN (9-20) mg/dL Creatinine (0.8-1.5) mg/dL Glucose (75-100) mg/dL POC Glucose 167 H (70-105) Calcium (8.4-10.2) mg/dL Triglycerides (2-149) mg/dL Crossmatch See Detail 07/03/18 07/04/18 07/04/18 Range/Units 23:43 03:57 06:06 WBC (4.5-11.0) K/mm3 RBC (3.65-5.03) M/mm3 Hgb (11.8-15.2) gm/dl Hct (35.5-45.6) % RDW (13.2-15.2) % Plt Count (140-440) K/mm3 POC ABG pH 7.229 L (7.35-7.45) POC ABG pCO2 99.8 H (35-45) Sodium (137-145) mmol/L Carbon Dioxide (22-30) mmol/L BUN (9-20) mg/dL Creatinine (0.8-1.5) mg/dL Glucose (75-100) mg/dL POC Glucose 176 H 168 H (70-105) Calcium (8.4-10.2) mg/dL Triglycerides (2-149) mg/dL Crossmatch 07/04/18 07/04/18 07/04/18 Range/Units 12:42 Unknown Unknown WBC 12.7 H (4.5-11.0) K/mm3 RBC 2.57 L (3.65-5.03) M/mm3 Hgb 7.7 L (11.8-15.2) gm/dl Hct 23.9 L (35.5-45.6) % RDW 15.3 H (13.2-15.2) % Plt Count 68 L (140-440) K/mm3 POC ABG pH (7.35-7.45) POC ABG pCO2 (35-45) Sodium 154 H (137-145) mmol/L Carbon Dioxide 41 H* (22-30) mmol/L BUN 85 H (9-20) mg/dL Creatinine 1.7 H (0.8-1.5) mg/dL Glucose 130 H (75-100) mg/dL POC Glucose 130 H (70-105) Calcium 7.6 L (8.4-10.2) mg/dL Triglycerides 250 H (2-149) mg/dL Crossmatch
[2018-07-04] MEDS: NACL 0.9% IV SCH (17:46)
[2018-07-04] MEDS: VFEND IV SCH (17:46)
[2018-07-05] MEDS: DUONEB *Not for PRN Use IH SCH ×4 (01:52→19:44)
[2018-07-05] MEDS: DIPRIVAN 10 MG/ML 1,000 MG/100 ML BOTTLE IV SCH ×3 (02:05→18:11)
[2018-07-05] MEDS: CYTOVENE 500 MG in NACL 0.9% 250ML 250 ML IV SCH ×4 (06:13→22:32)
[2018-07-05] MEDS: NACL 0.9% IV SCH ×4 (06:14→22:33)
[2018-07-05] MEDS: VFEND IV SCH ×4 (06:14→22:33)
[2018-07-05] MEDS: HumaLOG SUB-Q SCH ×5 (06:30→23:25)
[2018-07-05] MEDS: D5/0.45NS 1,000 ML IV SCH (06:38)
--- NOTE | 2018-07-05 07:34 | Progress Note ---
Assessment and Plan Cultures: 06/19/2018 blood culture: no growth 06/19/2018 tracheal aspirate: usual resp david/ Rothia mucilaginosa 06/19/2018 fungal blood culture: no growth 06/20/2018 Serum CrAg: negative Cytology PJP stain negative GMS stain showed septated fungal hyphae with acute angle branching and yeast forms c/w Aspergillus, Fusarium, Scedosporium and other Dematiaceous fungi. DFA showed rare PJP CMV DNA PCR 06/19/2018 13,166 BAL 06/25/2018 Tigist albicans, fungal culture negative A/P: 32/M with: #1 Bilateral pneumonia: Extensive bilateral ground glass opacities and pneumonia with severe hypoxia. Unclear etiology ? PJP versus invasive fungal versus disseminated CMV. 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 Lung cytology GMS stain showed septated fungal hyphae with acute angle branching and yeast forms c/w Aspergillus, Fusarium, Scedosporium and other Dematiaceous fungi. 06/19/2018 tracheal aspirate showed usual resp david/ Rothia mucilaginosa. 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 patient has been on bactrim IV for 5 days and IV voriconazole for 4 days witouht any improvement on vent setting still at FiO2 70% p12. - S/P bronch/BAL - pending - s/p voriconazole x 4 days - no improvement, stopped on 06/25 - s/p amphothericin x 10 days on 06/25 -07/04 - Serum CMV DNA PCR 06/19/2018 13,166 - BAL 06/25/2018 Tigist albicans likely a colonizer, AFB negative, fungal culture negative - completed vancomycin renally dosed to cover Rothia D5 on 06/28 - Aspregillus ag negative - S/p bactrim renally adjusted D15 on 07/03 - now on voriconazole, ganciclovir and mepron #2 Acute respiratory failure: Requiring mechanical ventilation. not better FIo2 70% -->60--> 50 --> 60-->90% / p 15 -->12-->9-->8 #3 HIV, likely AIDS:CD4=10 / VL 1,300,000 copies #4 Sepsis: Likely secondary to above. #5 JENNIFER: better today, all renally adjusted #6 Sepsis with septic shock: still high grade fever, off levophed, still on vasopressine; likely from above ? sinusitis ? 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 Extensive team discussion with Dough Panner, aunt, uncle and cousin about prognosis on 07/02/2018. Patient with no history of ETOH, drugs, tob, has 2 cats and 2 dogs, per family since his suddenly in March 2018 he was depressed and fighting a "dry cough for 3 months". He lost 30L weight in 3 months. Family is unaware of HIV diagnosis, it was not disclosed. Dr Sanchez will be rounding tomorrow Keke Manzo MD Infectious Diseases Cook House Laborer [facility], [place] M [phone] O [phone] Subjective Date of service: 07/05/18 Principal diagnosis: Acute Hypoxemic Resp Failure; AIDS / HIV positive; Severe Sepsis due to PNA Interval history: Patient remains critically ill intubated on CMV FiO2 90%, p 8, off all pressors, on sedative. Tmax 100.2 ROS unable to obtain Objective - Exam Narrative Exam: General appearance: sedated on the vent FIO2 90% p8 Eyes: anicteric sclerae, moist conjunctivae; no lid-lag; PERRLA +conjunctivae edema shruthi HENT: Atraumatic; oropharynx +ETT Neck: Trachea midline; supple, no thyromegaly or lymphadenopathy Lungs: shruthi loud rhonchi CV: tachycardic Abdomen: Soft, non-tender; no masses or hepatosplenomegaly Extremities: + shruthi arm edema / leg edema Skin: Normal temperature, turgor and texture; no rash, ulcers or subcutaneous nodules Psych: sedated. Neuro: sedated Rust Right IJ TLC - Constitutional Vitals: Vital Signs Temp Pulse Resp BP Pulse Ox 99.9 F H 108 H 23 116/58 91 07/05/18 04:00 07/05/18 06:00 07/05/18 06:00 07/05/18 06:00 07/05/18 06:00 Temperature -Last 24 Hours Temperature 99.9 F Temperature 99.9 F Temperature 99.7 F Temperature 100.1 F Temperature 100.1 F Temperature 100.2 F Temperature 99.4 F Temperature 98.2 F - Labs CBC & Chem 7: 07/04/18 Unknown 07/04/18 Unknown Labs: Abnormal lab results 07/04/18 07/04/18 07/04/18 Range/Units 12:42 17:49 23:12 WBC (4.5-11.0) K/mm3 RBC (3.65-5.03) M/mm3 Hgb (11.8-15.2) gm/dl Hct (35.5-45.6) % RDW (13.2-15.2) % Plt Count (140-440) K/mm3 POC ABG pH (7.35-7.45) POC ABG pCO2 (35-45) POC ABG pO2 (80-105) Sodium (137-145) mmol/L Carbon Dioxide (22-30) mmol/L BUN (9-20) mg/dL Creatinine (0.8-1.5) mg/dL Glucose (75-100) mg/dL POC Glucose 130 H 169 H 162 H (70-105) Calcium (8.4-10.2) mg/dL Triglycerides (2-149) mg/dL 07/04/18 07/04/18 07/05/18 Range/Units Unknown Unknown 05:42 WBC 12.7 H (4.5-11.0) K/mm3 RBC 2.57 L (3.65-5.03) M/mm3 Hgb 7.7 L (11.8-15.2) gm/dl Hct 23.9 L (35.5-45.6) % RDW 15.3 H (13.2-15.2) % Plt Count 68 L (140-440) K/mm3 POC ABG pH 7.240 L (7.35-7.45) POC ABG pCO2 97.9 H (35-45) POC ABG pO2 71 L (80-105) Sodium 154 H (137-145) mmol/L Carbon Dioxide 41 H* (22-30) mmol/L BUN 85 H (9-20) mg/dL Creatinine 1.7 H (0.8-1.5) mg/dL Glucose 130 H (75-100) mg/dL POC Glucose (70-105) Calcium 7.6 L (8.4-10.2) mg/dL Triglycerides 250 H (2-149) mg/dL 07/05/18 Range/Units 05:46 WBC (4.5-11.0) K/mm3 RBC (3.65-5.03) M/mm3 Hgb (11.8-15.2) gm/dl Hct (35.5-45.6) % RDW (13.2-15.2) % Plt Count (140-440) K/mm3 POC ABG pH (7.35-7.45) POC ABG pCO2 (35-45) POC ABG pO2 (80-105) Sodium (137-145) mmol/L Carbon Dioxide (22-30) mmol/L BUN (9-20) mg/dL Creatinine (0.8-1.5) mg/dL Glucose (75-100) mg/dL POC Glucose 278 H (70-105) Calcium (8.4-10.2) mg/dL Triglycerides (2-149) mg/dL
[2018-07-05] MEDS: fentaNYL DRIP Premix 2,000 MCG/100 ML BAG IV SCH ×2 (09:45→18:40)
[2018-07-05] MEDS: SOLU-Medrol IV SCH ×2 (09:49→22:13)
[2018-07-05] MEDS: PREVACID SOLUTAB FEEDTUBE SCH (09:50)
[2018-07-05] MEDS: MEPRON PO SCH ×2 (09:50→22:28)
[2018-07-05] MEDS: SODIUM CHLORIDE FLUSH SYRINGE 10 ML IV SCH ×3 (10:17→22:13)
--- NOTE | 2018-07-05 13:26 | Progress Note ---
Assessment and Plan ARDS Acute Hypoxemic Respiratory Failure on MVS AIDS / HIV positive Severe Sepsis due to Pneumonia LLext DVT Hyponatremia Severe metabolic acidosis Shock liver - switched to PCV mode - repeat ABG after 1-2 hours and adjust - continue to target TV 4-6 ml/kg IBW - wean supplemental oxygen to keep O2 sats > 89% - continue permissive hypercapnia strategies - continue anti-infectives per ID recs - 2D ECHO with normal EF - Seroquel stopped - continue to titrate sedatives for RASS -2 while on ARDS ventilation - continue anti-infective's per ID recommendations - trend CRP and lactate levels as necessary to aid clinical decision making - continue bronchodilators with pulmonary hygiene per RT - continue hyperventilation acutely to compensate for metabolic acidosis - VAP bundle addressed - daily SAT's - Daily SBT assessment - GI & VTE prophylaxis - enteral nutrition as tolerated - continue accuchecks q6h with glycemic control per SSI for target BG 140-180 mg/dL - continue other care per attending / other data quality consultant's .... re-evaluate in am & prn CODE STATUS: FULL CODE The high probability of a clinically significant, sudden or life-threatening deterioration of the [cardiac, neurology] system(s) required my full and direct attention, intervention and personal management. The aggregate critical care time was [30] minutes without overlap. Time includes spent on; [x] Data Review and interpretation [x] Patient assessment and monitoring of vital signs [x] Documentation [x] Medication orders and management Subjective Date of service: 07/05/18 Principal diagnosis: Acute Hypoxemic Resp Failure; AIDS / HIV positive; Severe Sepsis due to PNA Interval history: Patient is seen today for: Acute Hypoxemic Respiratory Failure on MVS; AIDS / HIV positive; Severe Sepsis due to Pneumonia; Hyponatremia; Severe metabolic acidosis Seen and examined at bedside; 24hour events reviewed; nursing and respiratory care staff consulted; no adverse overnight events reported to me; remains on MVS; peak and plateau pressures high; sesdated; remains acidotic with permissive hypercapnia; made a DNR; no emesis or overt aspiration Objective Vital Signs - 12hr 07/05/18 07/05/18 07/05/18 01:52 01:53 02:00 Temperature Pulse Rate 106 H 110 H Pulse Rate [ Apical] Pulse Rate [ 109 H Bilateral] Pulse Rate [ From Monitor] Respiratory 22 Rate Respiratory 34 H Rate [Bilateral ] Respiratory Rate [ Generalized] Blood Pressure 110/56 110/56 O2 Sat by Pulse 95 95 Oximetry 07/05/18 07/05/18 07/05/18 02:03 03:00 04:00 Temperature 99.9 F H Pulse Rate 102 H 113 H Pulse Rate [ 110 H Apical] Pulse Rate [ 112 H Bilateral] Pulse Rate [ 110 H From Monitor] Respiratory 22 18 Rate Respiratory 35 H Rate [Bilateral ] Respiratory Rate [ Generalized] Blood Pressure 110/72 126/61 O2 Sat by Pulse 98 98 Oximetry 07/05/18 07/05/18 07/05/18 05:00 05:25 06:00 Temperature Pulse Rate 113 H 111 H 108 H Pulse Rate [ Apical] Pulse Rate [ Bilateral] Pulse Rate [ From Monitor] Respiratory 17 23 Rate Respiratory Rate [Bilateral ] Respiratory Rate [ Generalized] Blood Pressure 122/61 127/54 116/58 O2 Sat by Pulse 93 94 91 Oximetry 07/05/18 07/05/18 07/05/18 07:00 08:00 08:30 Temperature 99.3 F Pulse Rate 115 H 111 H 111 H Pulse Rate [ Apical] Pulse Rate [ 111 H Bilateral] Pulse Rate [ 116 H From Monitor] Respiratory 20 25 H Rate Respiratory 37 H Rate [Bilateral ] Respiratory Rate [ Generalized] Blood Pressure 105/58 123/67 120/61 O2 Sat by Pulse 96 96 96 Oximetry 07/05/18 07/05/18 07/05/18 08:40 09:00 10:00 Temperature Pulse Rate 112 H 87 Pulse Rate [ Apical] Pulse Rate [ 111 H Bilateral] Pulse Rate [ From Monitor] Respiratory 18 21 Rate Respiratory 35 H Rate [Bilateral ] Respiratory 34 H Rate [ Generalized] Blood Pressure 116/55 105/61 O2 Sat by Pulse 96 97 Oximetry 07/05/18 07/05/18 11:00 12:00 Temperature Pulse Rate 108 H 108 H Pulse Rate [ Apical] Pulse Rate [ Bilateral] Pulse Rate [ From Monitor] Respiratory 37 H Rate Respiratory Rate [Bilateral ] Respiratory Rate [ Generalized] Blood Pressure 106/67 106/67 O2 Sat by Pulse 97 96 Oximetry Constitutional: appears uncomfortable, other (young HM normocephalic and atraumatic with moderately increased respiratory effort at rest) Eyes: non-icteric ENT: oropharynx moist, other (ETT 23 cm SATISH) Neck: supple, no lymphadenopathy, no JVD, other (no thyromegaly) Effort: mildly labored Ascultation: Bilateral: diminished breath sounds, rhonchi Percussion: Bilateral: not dull Cardiovascular: regular rate and rhythm Gastrointestinal: normoactive bowel sounds, soft, non-tender, non-distended Integumentary: rash Extremities: no cyanosis, pink and warm, pulses normal, no ischemia or petechiae, edema (trace) Neurologic: non-focal exam (grossly), pupils equal and round, motor strength normal and, unable to assess Psychiatric: other (unable to assess) CBC and BMP: 07/06/18 06:36 07/06/18 06:36 ABG, PT/INR, D-dimer: ABG POC ABG pH 7.240 (7.35-7.45) L 07/05/18 05:42 POC ABG pCO2 97.9 (35-45) H 07/05/18 05:42 POC ABG pO2 71 (80-105) L 07/05/18 05:42 POC ABG HCO3 42.0 07/05/18 05:42 POC ABG Total CO2 45 07/05/18 05:42 POC ABG O2 Sat 89 07/05/18 05:42 PT/INR, D-dimer PT 14.3 Sec. (12.2-14.9) 07/01/18 09:11 INR 1.05 (0.87-1.13) 07/01/18 09:11 D-Dimer 2387.14 ng/mlDDU (0-234) H 07/01/18 10:00 Abnormal lab findings: Abnormal Labs 06/19/18 06/19/18 06/19/18 03:31 07:11 07:42 WBC RBC Hgb Hct MCV RDW Plt Count Seg Neuts % (Manual) Lymphocytes % (Manual) Seg Neutrophils # Man Abs Lymphs (Manual) 409 L Lymphocytes # (Manual) PT INR D-Dimer POC ABG pH 6.974 L POC ABG pCO2 22.0 L 83.4 H POC ABG pO2 28 L 122 H Sodium Potassium Chloride Carbon Dioxide BUN Creatinine Glucose POC Glucose Calcium AST ALT C-Reactive Protein Total Protein Albumin Triglycerides Ur Specific Herman Urine WBC (Auto) Urine Creatinine Urine Total Protein Lymph Enumerat CD4/CD8 0.05 L % CD3 Cells 45 L Absolute CD3 Count 185 L % CD4 Cells 2 L Absolute CD4 Count 10 L % CD8 Cells 43 H Absolute CD8 Count 167 L Absolute CD19 Count 79 L HIV DNA Qual (PCR) HIV-1 RNA PCR copies/ml HIV-1 RNA (PCR) log Miscellaneous Test Crossmatch 06/19/18 06/19/18 06/19/18 08:07 08:16 09:20 WBC RBC Hgb Hct MCV RDW Plt Count Seg Neuts % (Manual) Lymphocytes % (Manual) Seg Neutrophils # Man Abs Lymphs (Manual) Lymphocytes # (Manual) PT INR D-Dimer POC ABG pH 6.996 L POC ABG pCO2 82.4 H POC ABG pO2 Sodium Potassium Chloride Carbon Dioxide BUN Creatinine Glucose POC Glucose Calcium AST ALT C-Reactive Protein Total Protein Albumin Triglycerides Ur Specific Herman 1.060 H Urine WBC (Auto) 8.0 H Urine Creatinine Urine Total Protein Lymph Enumerat CD4/CD8 % CD3 Cells Absolute CD3 Count % CD4 Cells Absolute CD4 Count % CD8 Cells Absolute CD8 Count Absolute CD19 Count HIV DNA Qual (PCR) Detected H HIV-1 RNA PCR copies/ml HIV-1 RNA (PCR) log Miscellaneous Test Crossmatch 06/19/18 06/19/18 06/19/18 09:49 11:15 15:16 WBC RBC Hgb Hct MCV RDW Plt Count Seg Neuts % (Manual) Lymphocytes % (Manual) Seg Neutrophils # Man Abs Lymphs (Manual) Lymphocytes # (Manual) PT INR D-Dimer POC ABG pH 7.198 L 7.206 L POC ABG pCO2 POC ABG pO2 75 L Sodium Potassium Chloride Carbon Dioxide BUN Creatinine Glucose POC Glucose Calcium AST ALT C-Reactive Protein Total Protein Albumin Triglycerides Ur Specific Herman Urine WBC (Auto) Urine Creatinine Urine Total Protein Lymph Enumerat CD4/CD8 % CD3 Cells Absolute CD3 Count % CD4 Cells Absolute CD4 Count % CD8 Cells Absolute CD8 Count Absolute CD19 Count HIV DNA Qual (PCR) HIV-1 RNA PCR copies/ml [id number] H HIV-1 RNA (PCR) log 6.11 H Miscellaneous Test Crossmatch 06/19/18 06/19/18 06/19/18 18:54 Unknown Unknown WBC 12.9 H RBC Hgb Hct MCV RDW Plt Count Seg Neuts % (Manual) Lymphocytes % (Manual) 5.0 L Seg Neutrophils # Man Abs Lymphs (Manual) Lymphocytes # (Manual) 0.6 L PT 15.9 H INR 1.19 H D-Dimer 8449.09 H POC ABG pH POC ABG pCO2 POC ABG pO2 Sodium Potassium Chloride Carbon Dioxide BUN Creatinine Glucose POC Glucose 196 H Calcium AST ALT C-Reactive Protein Total Protein Albumin Triglycerides Ur Specific Herman Urine WBC (Auto) Urine Creatinine Urine Total Protein Lymph Enumerat CD4/CD8 % CD3 Cells Absolute CD3 Count % CD4 Cells Absolute CD4 Count % CD8 Cells Absolute CD8 Count Absolute CD19 Count HIV DNA Qual (PCR) HIV-1 RNA PCR copies/ml HIV-1 RNA (PCR) log Miscellaneous Test Crossmatch 06/19/18 06/19/18 06/20/18 Unknown Unknown 04:33 WBC RBC Hgb Hct MCV RDW Plt Count Seg Neuts % (Manual) Lymphocytes % (Manual) Seg Neutrophils # Man Abs Lymphs (Manual) Lymphocytes # (Manual) PT INR D-Dimer POC ABG pH 7.249 L POC ABG pCO2 POC ABG pO2 118 H Sodium 129 L Potassium Chloride 90.7 L Carbon Dioxide 17 L BUN Creatinine 0.6 L Glucose 199 H POC Glucose Calcium 8.1 L AST 53 H ALT C-Reactive Protein Total Protein 6.0 L Albumin 2.8 L Triglycerides Ur Specific Herman Urine WBC (Auto) Urine Creatinine Urine Total Protein Lymph Enumerat CD4/CD8 % CD3 Cells Absolute CD3 Count % CD4 Cells Absolute CD4 Count % CD8 Cells Absolute CD8 Count Absolute CD19 Count HIV DNA Qual (PCR) HIV-1 RNA PCR copies/ml HIV-1 RNA (PCR) log Miscellaneous Test Crossmatch 06/20/18 06/20/18 06/20/18 08:13 08:13 12:59 WBC 11.8 H RBC 3.25 L Hgb 9.8 L D Hct 30.4 L D MCV RDW Plt Count Seg Neuts % (Manual) 99.0 H Lymphocytes % (Manual) 1.0 L Seg Neutrophils # Man 11.7 H Abs Lymphs (Manual) Lymphocytes # (Manual) 0.1 L PT INR D-Dimer POC ABG pH POC ABG pCO2 POC ABG pO2 Sodium Potassium Chloride Carbon Dioxide 19 L BUN Creatinine Glucose 223 H POC Glucose 174 H Calcium 6.6 L D AST 1240 H ALT 836 H C-Reactive Protein Total Protein 4.9 L Albumin 2.1 L Triglycerides Ur Specific Herman Urine WBC (Auto) Urine Creatinine Urine Total Protein Lymph Enumerat CD4/CD8 % CD3 Cells Absolute CD3 Count % CD4 Cells Absolute CD4 Count % CD8 Cells Absolute CD8 Count Absolute CD19 Count HIV DNA Qual (PCR) HIV-1 RNA PCR copies/ml HIV-1 RNA (PCR) log Miscellaneous Test Crossmatch 06/20/18 06/20/18 06/21/18 17:42 23:44 04:08 WBC RBC Hgb Hct MCV RDW Plt Count Seg Neuts % (Manual) Lymphocytes % (Manual) Seg Neutrophils # Man Abs Lymphs (Manual) Lymphocytes # (Manual) PT INR D-Dimer POC ABG pH 7.309 L POC ABG pCO2 POC ABG pO2 Sodium Potassium Chloride Carbon Dioxide BUN Creatinine Glucose POC Glucose 177 H 195 H Calcium AST ALT C-Reactive Protein Total Protein Albumin Triglycerides Ur Specific Herman Urine WBC (Auto) Urine Creatinine Urine Total Protein Lymph Enumerat CD4/CD8 % CD3 Cells Absolute CD3 Count % CD4 Cells Absolute CD4 Count % CD8 Cells Absolute CD8 Count Absolute CD19 Count HIV DNA Qual (PCR) HIV-1 RNA PCR copies/ml HIV-1 RNA (PCR) log Miscellaneous Test Crossmatch 06/21/18 06/21/18 06/21/18 04:19 04:19 05:27 WBC 13.8 H RBC 3.02 L Hgb 9.2 L Hct 28.0 L MCV RDW Plt Count Seg Neuts % (Manual) Lymphocytes % (Manual) Seg Neutrophils # Man Abs Lymphs (Manual) Lymphocytes # (Manual) PT INR D-Dimer POC ABG pH POC ABG pCO2 POC ABG pO2 Sodium 135 L Potassium Chloride Carbon Dioxide 21 L BUN Creatinine 0.7 L Glucose 161 H POC Glucose 187 H Calcium 7.2 L AST 390 H ALT 622 H C-Reactive Protein Total Protein 5.3 L Albumin 2.4 L Triglycerides Ur Specific Herman Urine WBC (Auto) Urine Creatinine Urine Total Protein Lymph Enumerat CD4/CD8 % CD3 Cells Absolute CD3 Count % CD4 Cells Absolute CD4 Count % CD8 Cells Absolute CD8 Count Absolute CD19 Count HIV DNA Qual (PCR) HIV-1 RNA PCR copies/ml HIV-1 RNA (PCR) log Miscellaneous Test Crossmatch 06/21/18 06/21/18 06/21/18 11:33 12:32 17:45 WBC RBC Hgb Hct MCV RDW Plt Count Seg Neuts % (Manual) Lymphocytes % (Manual) Seg Neutrophils # Man Abs Lymphs (Manual) Lymphocytes # (Manual) PT INR D-Dimer POC ABG pH POC ABG pCO2 POC ABG pO2 Sodium Potassium Chloride Carbon Dioxide BUN Creatinine Glucose POC Glucose 147 H 172 H Calcium AST ALT C-Reactive Protein Total Protein Albumin Triglycerides Ur Specific Herman Urine WBC (Auto) Urine Creatinine Urine Total Protein Lymph Enumerat CD4/CD8 % CD3 Cells Absolute CD3 Count % CD4 Cells Absolute CD4 Count % CD8 Cells Absolute CD8 Count Absolute CD19 Count HIV DNA Qual (PCR) HIV-1 RNA PCR copies/ml HIV-1 RNA (PCR) log Miscellaneous Test see below H Crossmatch 06/21/18 06/22/18 06/22/18 23:25 04:47 04:47 WBC 11.5 H RBC 2.93 L Hgb 9.0 L Hct 26.5 L MCV RDW Plt Count Seg Neuts % (Manual) Lymphocytes % (Manual) Seg Neutrophils # Man Abs Lymphs (Manual) Lymphocytes # (Manual) PT INR D-Dimer POC ABG pH POC ABG pCO2 POC ABG pO2 Sodium Potassium Chloride Carbon Dioxide BUN 22 H Creatinine Glucose 201 H POC Glucose 152 H Calcium 7.8 L AST 129 H ALT 416 H C-Reactive Protein Total Protein 5.3 L Albumin 2.4 L Triglycerides Ur Specific Herman Urine WBC (Auto) Urine Creatinine Urine Total Protein Lymph Enumerat CD4/CD8 % CD3 Cells Absolute CD3 Count % CD4 Cells Absolute CD4 Count % CD8 Cells Absolute CD8 Count Absolute CD19 Count HIV DNA Qual (PCR) HIV-1 RNA PCR copies/ml HIV-1 RNA (PCR) log Miscellaneous Test Crossmatch 06/22/18 06/22/18 06/22/18 05:23 11:43 17:45 WBC RBC Hgb Hct MCV RDW Plt Count Seg Neuts % (Manual) Lymphocytes % (Manual) Seg Neutrophils # Man Abs Lymphs (Manual) Lymphocytes # (Manual) PT INR D-Dimer POC ABG pH POC ABG pCO2 POC ABG pO2 Sodium Potassium Chloride Carbon Dioxide BUN Creatinine Glucose POC Glucose 170 H 175 H 176 H Calcium AST ALT C-Reactive Protein Total Protein Albumin Triglycerides Ur Specific Herman Urine WBC (Auto) Urine Creatinine Urine Total Protein Lymph Enumerat CD4/CD8 % CD3 Cells Absolute CD3 Count % CD4 Cells Absolute CD4 Count % CD8 Cells Absolute CD8 Count Absolute CD19 Count HIV DNA Qual (PCR) HIV-1 RNA PCR copies/ml HIV-1 RNA (PCR) log Miscellaneous Test Crossmatch 06/23/18 06/23/18 06/23/18 00:24 05:06 05:11 WBC 11.2 H RBC 2.78 L Hgb 8.6 L Hct 25.3 L MCV RDW Plt Count Seg Neuts % (Manual) Lymphocytes % (Manual) Seg Neutrophils # Man Abs Lymphs (Manual) Lymphocytes # (Manual) PT INR D-Dimer POC ABG pH POC ABG pCO2 POC ABG pO2 Sodium Potassium Chloride Carbon Dioxide BUN Creatinine Glucose POC Glucose 178 H 182 H Calcium AST ALT C-Reactive Protein Total Protein Albumin Triglycerides Ur Specific Herman Urine WBC (Auto) Urine Creatinine Urine Total Protein Lymph Enumerat CD4/CD8 % CD3 Cells Absolute CD3 Count % CD4 Cells Absolute CD4 Count % CD8 Cells Absolute CD8 Count Absolute CD19 Count HIV DNA Qual (PCR) HIV-1 RNA PCR copies/ml HIV-1 RNA (PCR) log Miscellaneous Test Crossmatch 06/23/18 06/23/18 06/23/18 05:11 05:51 12:21 WBC RBC Hgb Hct MCV RDW Plt Count Seg Neuts % (Manual) Lymphocytes % (Manual) Seg Neutrophils # Man Abs Lymphs (Manual) Lymphocytes # (Manual) PT INR D-Dimer POC ABG pH POC ABG pCO2 POC ABG pO2 69 L Sodium Potassium Chloride Carbon Dioxide BUN 34 H Creatinine 1.7 H D Glucose 191 H POC Glucose 181 H Calcium 7.5 L AST 63 H ALT 297 H C-Reactive Protein Total Protein 5.3 L Albumin 2.4 L Triglycerides Ur Specific Herman Urine WBC (Auto) Urine Creatinine Urine Total Protein Lymph Enumerat CD4/CD8 % CD3 Cells Absolute CD3 Count % CD4 Cells Absolute CD4 Count % CD8 Cells Absolute CD8 Count Absolute CD19 Count HIV DNA Qual (PCR) HIV-1 RNA PCR copies/ml HIV-1 RNA (PCR) log Miscellaneous Test Crossmatch 06/23/18 06/23/18 06/23/18 13:57 17:00 18:40 WBC RBC Hgb Hct MCV RDW Plt Count Seg Neuts % (Manual) Lymphocytes % (Manual) Seg Neutrophils # Man Abs Lymphs (Manual) Lymphocytes # (Manual) PT INR D-Dimer POC ABG pH POC ABG pCO2 POC ABG pO2 Sodium Potassium Chloride Carbon Dioxide BUN 38 H Creatinine 1.8 H Glucose POC Glucose 196 H Calcium AST ALT C-Reactive Protein 1.60 H Total Protein Albumin Triglycerides Ur Specific Herman Urine WBC (Auto) Urine Creatinine Urine Total Protein Lymph Enumerat CD4/CD8 % CD3 Cells Absolute CD3 Count % CD4 Cells Absolute CD4 Count % CD8 Cells Absolute CD8 Count Absolute CD19 Count HIV DNA Qual (PCR) HIV-1 RNA PCR copies/ml HIV-1 RNA (PCR) log Miscellaneous Test Crossmatch 06/23/18 06/23/18 06/24/18 21:16 23:22 04:12 WBC RBC 2.89 L Hgb 8.8 L Hct 26.9 L MCV RDW Plt Count Seg Neuts % (Manual) Lymphocytes % (Manual) Seg Neutrophils # Man Abs Lymphs (Manual) Lymphocytes # (Manual) PT INR D-Dimer POC ABG pH 7.311 L POC ABG pCO2 47.4 H POC ABG pO2 Sodium Potassium Chloride Carbon Dioxide BUN Creatinine Glucose POC Glucose 165 H Calcium AST ALT C-Reactive Protein Total Protein Albumin Triglycerides Ur Specific Herman Urine WBC (Auto) Urine Creatinine Urine Total Protein Lymph Enumerat CD4/CD8 % CD3 Cells Absolute CD3 Count % CD4 Cells Absolute CD4 Count % CD8 Cells Absolute CD8 Count Absolute CD19 Count HIV DNA Qual (PCR) HIV-1 RNA PCR copies/ml HIV-1 RNA (PCR) log Miscellaneous Test Crossmatch 06/24/18 06/24/18 06/24/18 04:12 04:46 05:24 WBC RBC Hgb Hct MCV RDW Plt Count Seg Neuts % (Manual) Lymphocytes % (Manual) Seg Neutrophils # Man Abs Lymphs (Manual) Lymphocytes # (Manual) PT INR D-Dimer POC ABG pH 7.250 L POC ABG pCO2 55.8 H POC ABG pO2 Sodium Potassium 5.4 H Chloride Carbon Dioxide BUN 44 H Creatinine 2.2 H Glucose 206 H POC Glucose 183 H Calcium 7.5 L AST ALT C-Reactive Protein Total Protein Albumin Triglycerides Ur Specific Herman Urine WBC (Auto) Urine Creatinine Urine Total Protein Lymph Enumerat CD4/CD8 % CD3 Cells Absolute CD3 Count % CD4 Cells Absolute CD4 Count % CD8 Cells Absolute CD8 Count Absolute CD19 Count HIV DNA Qual (PCR) HIV-1 RNA PCR copies/ml HIV-1 RNA (PCR) log Miscellaneous Test Crossmatch 06/24/18 06/24/18 06/24/18 11:14 16:40 17:16 WBC RBC Hgb Hct MCV RDW Plt Count Seg Neuts % (Manual) Lymphocytes % (Manual) Seg Neutrophils # Man Abs Lymphs (Manual) Lymphocytes # (Manual) PT INR D-Dimer POC ABG pH 7.067 L POC ABG pCO2 91.7 H POC ABG pO2 134 H Sodium Potassium Chloride Carbon Dioxide BUN Creatinine Glucose POC Glucose 151 H 195 H Calcium AST ALT C-Reactive Protein Total Protein Albumin Triglycerides Ur Specific Herman Urine WBC (Auto) Urine Creatinine Urine Total Protein Lymph Enumerat CD4/CD8 % CD3 Cells Absolute CD3 Count % CD4 Cells Absolute CD4 Count % CD8 Cells Absolute CD8 Count Absolute CD19 Count HIV DNA Qual (PCR) HIV-1 RNA PCR copies/ml HIV-1 RNA (PCR) log Miscellaneous Test Crossmatch 06/24/18 06/24/18 06/24/18 18:03 22:45 22:45 WBC RBC Hgb Hct MCV RDW Plt Count Seg Neuts % (Manual) Lymphocytes % (Manual) Seg Neutrophils # Man Abs Lymphs (Manual) Lymphocytes # (Manual) PT INR D-Dimer POC ABG pH 7.234 L POC ABG pCO2 59.9 H POC ABG pO2 121 H Sodium Potassium Chloride Carbon Dioxide BUN Creatinine Glucose POC Glucose Calcium AST ALT C-Reactive Protein Total Protein Albumin Triglycerides Ur Specific Herman Urine WBC (Auto) 9.0 H Urine Creatinine 47.2 H Urine Total Protein 25 H Lymph Enumerat CD4/CD8 % CD3 Cells Absolute CD3 Count % CD4 Cells Absolute CD4 Count % CD8 Cells Absolute CD8 Count Absolute CD19 Count HIV DNA Qual (PCR) HIV-1 RNA PCR copies/ml HIV-1 RNA (PCR) log Miscellaneous Test Crossmatch 06/24/18 06/24/18 06/25/18 Unknown 23:59 04:36 WBC RBC Hgb Hct MCV RDW Plt Count Seg Neuts % (Manual) Lymphocytes % (Manual) Seg Neutrophils # Man Abs Lymphs (Manual) Lymphocytes # (Manual) PT 15.6 H INR 1.17 H D-Dimer POC ABG pH 7.200 L POC ABG pCO2 65.3 H POC ABG pO2 Sodium Potassium Chloride Carbon Dioxide BUN Creatinine Glucose POC Glucose 233 H Calcium AST ALT C-Reactive Protein Total Protein Albumin Triglycerides Ur Specific Herman Urine WBC (Auto) Urine Creatinine Urine Total Protein Lymph Enumerat CD4/CD8 % CD3 Cells Absolute CD3 Count % CD4 Cells Absolute CD4 Count % CD8 Cells Absolute CD8 Count Absolute CD19 Count HIV DNA Qual (PCR) HIV-1 RNA PCR copies/ml HIV-1 RNA (PCR) log Miscellaneous Test Crossmatch 06/25/18 06/25/18 06/25/18 05:29 11:12 11:40 WBC RBC 2.67 L Hgb 8.5 L Hct 25.6 L MCV 96 H RDW 16.0 H Plt Count Seg Neuts % (Manual) Lymphocytes % (Manual) Seg Neutrophils # Man Abs Lymphs (Manual) Lymphocytes # (Manual) PT INR D-Dimer POC ABG pH POC ABG pCO2 POC ABG pO2 Sodium Potassium Chloride Carbon Dioxide BUN Creatinine Glucose POC Glucose 212 H 244 H Calcium AST ALT C-Reactive Protein Total Protein Albumin Triglycerides Ur Specific Herman Urine WBC (Auto) Urine Creatinine Urine Total Protein Lymph Enumerat CD4/CD8 % CD3 Cells Absolute CD3 Count % CD4 Cells Absolute CD4 Count % CD8 Cells Absolute CD8 Count Absolute CD19 Count HIV DNA Qual (PCR) HIV-1 RNA PCR copies/ml HIV-1 RNA (PCR) log Miscellaneous Test Crossmatch 06/25/18 06/25/18 06/25/18 11:40 17:18 18:08 WBC RBC Hgb Hct MCV RDW Plt Count Seg Neuts % (Manual) Lymphocytes % (Manual) Seg Neutrophils # Man Abs Lymphs (Manual) Lymphocytes # (Manual) PT INR D-Dimer POC ABG pH 7.206 L POC ABG pCO2 68.1 H POC ABG pO2 Sodium Potassium 5.8 H Chloride Carbon Dioxide BUN 48 H Creatinine 2.1 H Glucose 293 H POC Glucose 264 H Calcium 7.5 L AST ALT C-Reactive Protein Total Protein Albumin Triglycerides Ur Specific Herman Urine WBC (Auto) Urine Creatinine Urine Total Protein Lymph Enumerat CD4/CD8 % CD3 Cells Absolute CD3 Count % CD4 Cells Absolute CD4 Count % CD8 Cells Absolute CD8 Count Absolute CD19 Count HIV DNA Qual (PCR) HIV-1 RNA PCR copies/ml HIV-1 RNA (PCR) log Miscellaneous Test Crossmatch 06/25/18 06/25/18 06/26/18 21:20 23:59 05:10 WBC RBC Hgb Hct MCV RDW Plt Count Seg Neuts % (Manual) Lymphocytes % (Manual) Seg Neutrophils # Man Abs Lymphs (Manual) Lymphocytes # (Manual) PT INR D-Dimer POC ABG pH 7.220 L POC ABG pCO2 65.0 H POC ABG pO2 71 L Sodium Potassium Chloride Carbon Dioxide BUN Creatinine Glucose POC Glucose 231 H 259 H Calcium AST ALT C-Reactive Protein Total Protein Albumin Triglycerides Ur Specific Herman Urine WBC (Auto) Urine Creatinine Urine Total Protein Lymph Enumerat CD4/CD8 % CD3 Cells Absolute CD3 Count % CD4 Cells Absolute CD4 Count % CD8 Cells Absolute CD8 Count Absolute CD19 Count HIV DNA Qual (PCR) HIV-1 RNA PCR copies/ml HIV-1 RNA (PCR) log Miscellaneous Test Crossmatch 06/26/18 06/26/18 06/26/18 05:29 07:25 07:25 WBC 12.0 H RBC 2.69 L Hgb 8.2 L Hct 25.5 L MCV 95 H RDW 15.7 H Plt Count Seg Neuts % (Manual) Lymphocytes % (Manual) Seg Neutrophils # Man Abs Lymphs (Manual) Lymphocytes # (Manual) PT INR D-Dimer POC ABG pH 7.240 L POC ABG pCO2 67.6 H POC ABG pO2 106 H Sodium Potassium 5.2 H Chloride Carbon Dioxide BUN 58 H Creatinine 1.9 H Glucose 219 H POC Glucose Calcium 7.9 L AST ALT C-Reactive Protein Total Protein Albumin Triglycerides Ur Specific Herman Urine WBC (Auto) Urine Creatinine Urine Total Protein Lymph Enumerat CD4/CD8 % CD3 Cells Absolute CD3 Count % CD4 Cells Absolute CD4 Count % CD8 Cells Absolute CD8 Count Absolute CD19 Count HIV DNA Qual (PCR) HIV-1 RNA PCR copies/ml HIV-1 RNA (PCR) log Miscellaneous Test Crossmatch 06/26/18 06/26/18 06/26/18 07:25 12:49 17:42 WBC RBC Hgb Hct MCV RDW Plt Count Seg Neuts % (Manual) Lymphocytes % (Manual) Seg Neutrophils # Man Abs Lymphs (Manual) Lymphocytes # (Manual) PT INR D-Dimer POC ABG pH 7.178 L POC ABG pCO2 73.6 H POC ABG pO2 77 L Sodium Potassium Chloride Carbon Dioxide BUN Creatinine Glucose POC Glucose 276 H Calcium AST ALT C-Reactive Protein Total Protein Albumin Triglycerides 174 H Ur Specific Herman Urine WBC (Auto) Urine Creatinine Urine Total Protein Lymph Enumerat CD4/CD8 % CD3 Cells Absolute CD3 Count % CD4 Cells Absolute CD4 Count % CD8 Cells Absolute CD8 Count Absolute CD19 Count HIV DNA Qual (PCR) HIV-1 RNA PCR copies/ml HIV-1 RNA (PCR) log Miscellaneous Test Crossmatch 06/26/18 06/26/18 06/26/18 18:25 21:24 23:22 WBC RBC Hgb Hct MCV RDW Plt Count Seg Neuts % (Manual) Lymphocytes % (Manual) Seg Neutrophils # Man Abs Lymphs (Manual) Lymphocytes # (Manual) PT INR D-Dimer POC ABG pH 7.152 L POC ABG pCO2 80.6 H POC ABG pO2 Sodium Potassium Chloride Carbon Dioxide BUN Creatinine Glucose POC Glucose 304 H 282 H Calcium AST ALT C-Reactive Protein Total Protein Albumin Triglycerides Ur Specific Herman Urine WBC (Auto) Urine Creatinine Urine Total Protein Lymph Enumerat CD4/CD8 % CD3 Cells Absolute CD3 Count % CD4 Cells Absolute CD4 Count % CD8 Cells Absolute CD8 Count Absolute CD19 Count HIV DNA Qual (PCR) HIV-1 RNA PCR copies/ml HIV-1 RNA (PCR) log Miscellaneous Test Crossmatch 06/27/18 06/27/18 06/27/18 04:05 05:15 05:15 WBC RBC Hgb Hct MCV RDW Plt Count Seg Neuts % (Manual) Lymphocytes % (Manual) Seg Neutrophils # Man Abs Lymphs (Manual) Lymphocytes # (Manual) PT INR D-Dimer POC ABG pH 7.266 L POC ABG pCO2 62.8 H POC ABG pO2 Sodium Potassium 5.5 H Chloride Carbon Dioxide BUN 73 H Creatinine 2.1 H Glucose 211 H POC Glucose Calcium 7.7 L AST ALT C-Reactive Protein Total Protein Albumin Triglycerides Ur Specific Herman Urine WBC (Auto) Urine Creatinine Urine Total Protein Lymph Enumerat CD4/CD8 % CD3 Cells Absolute CD3 Count % CD4 Cells Absolute CD4 Count % CD8 Cells Absolute CD8 Count Absolute CD19 Count HIV DNA Qual (PCR) HIV-1 RNA PCR copies/ml HIV-1 RNA (PCR) log Miscellaneous Test Flexitest 1 H Crossmatch 06/27/18 06/27/18 06/27/18 05:15 05:52 13:10 WBC RBC 2.41 L Hgb 7.6 L Hct 22.4 L MCV RDW Plt Count Seg Neuts % (Manual) Lymphocytes % (Manual) Seg Neutrophils # Man Abs Lymphs (Manual) Lymphocytes # (Manual) PT INR D-Dimer POC ABG pH POC ABG pCO2 POC ABG pO2 Sodium Potassium Chloride Carbon Dioxide BUN Creatinine Glucose POC Glucose 198 H 238 H Calcium AST ALT C-Reactive Protein Total Protein Albumin Triglycerides Ur Specific Herman Urine WBC (Auto) Urine Creatinine Urine Total Protein Lymph Enumerat CD4/CD8 % CD3 Cells Absolute CD3 Count % CD4 Cells Absolute CD4 Count % CD8 Cells Absolute CD8 Count Absolute CD19 Count HIV DNA Qual (PCR) HIV-1 RNA PCR copies/ml HIV-1 RNA (PCR) log Miscellaneous Test Crossmatch 06/27/18 06/27/18 06/27/18 16:12 17:51 23:22 WBC RBC Hgb Hct MCV RDW Plt Count Seg Neuts % (Manual) Lymphocytes % (Manual) Seg Neutrophils # Man Abs Lymphs (Manual) Lymphocytes # (Manual) PT INR D-Dimer POC ABG pH POC ABG pCO2 POC ABG pO2 Sodium Potassium Chloride Carbon Dioxide BUN Creatinine Glucose POC Glucose 174 H 162 H 171 H Calcium AST ALT C-Reactive Protein Total Protein Albumin Triglycerides Ur Specific Herman Urine WBC (Auto) Urine Creatinine Urine Total Protein Lymph Enumerat CD4/CD8 % CD3 Cells Absolute CD3 Count % CD4 Cells Absolute CD4 Count % CD8 Cells Absolute CD8 Count Absolute CD19 Count HIV DNA Qual (PCR) HIV-1 RNA PCR copies/ml HIV-1 RNA (PCR) log Miscellaneous Test Crossmatch 06/28/18 06/28/18 06/28/18 04:36 04:54 05:10 WBC RBC Hgb Hct MCV RDW Plt Count Seg Neuts % (Manual) Lymphocytes % (Manual) Seg Neutrophils # Man Abs Lymphs (Manual) Lymphocytes # (Manual) PT INR D-Dimer POC ABG pH 7.257 L POC ABG pCO2 68.8 H POC ABG pO2 Sodium Potassium Chloride Carbon Dioxide BUN 93 H Creatinine 2.4 H Glucose 186 H POC Glucose 193 H Calcium 8.3 L AST ALT C-Reactive Protein Total Protein Albumin Triglycerides Ur Specific Herman Urine WBC (Auto) Urine Creatinine Urine Total Protein Lymph Enumerat CD4/CD8 % CD3 Cells Absolute CD3 Count % CD4 Cells Absolute CD4 Count % CD8 Cells Absolute CD8 Count Absolute CD19 Count HIV DNA Qual (PCR) HIV-1 RNA PCR copies/ml HIV-1 RNA (PCR) log Miscellaneous Test Crossmatch 06/28/18 06/28/18 06/28/18 12:15 17:43 18:26 WBC RBC Hgb Hct MCV RDW Plt Count Seg Neuts % (Manual) Lymphocytes % (Manual) Seg Neutrophils # Man Abs Lymphs (Manual) Lymphocytes # (Manual) PT INR D-Dimer POC ABG pH 7.123 L POC ABG pCO2 82.7 H POC ABG pO2 Sodium Potassium Chloride Carbon Dioxide BUN Creatinine Glucose POC Glucose 154 H 194 H Calcium AST ALT C-Reactive Protein Total Protein Albumin Triglycerides Ur Specific Herman Urine WBC (Auto) Urine Creatinine Urine Total Protein Lymph Enumerat CD4/CD8 % CD3 Cells Absolute CD3 Count % CD4 Cells Absolute CD4 Count % CD8 Cells Absolute CD8 Count Absolute CD19 Count HIV DNA Qual (PCR) HIV-1 RNA PCR copies/ml HIV-1 RNA (PCR) log Miscellaneous Test Crossmatch 06/28/18 06/29/18 06/29/18 22:08 00:12 04:38 WBC RBC Hgb Hct MCV RDW Plt Count Seg Neuts % (Manual) Lymphocytes % (Manual) Seg Neutrophils # Man Abs Lymphs (Manual) Lymphocytes # (Manual) PT INR D-Dimer POC ABG pH 7.172 L 7.158 L POC ABG pCO2 80.4 H 76.6 H POC ABG pO2 143 H Sodium Potassium Chloride Carbon Dioxide BUN Creatinine Glucose POC Glucose 202 H Calcium AST ALT C-Reactive Protein Total Protein Albumin Triglycerides Ur Specific Herman Urine WBC (Auto) Urine Creatinine Urine Total Protein Lymph Enumerat CD4/CD8 % CD3 Cells Absolute CD3 Count % CD4 Cells Absolute CD4 Count % CD8 Cells Absolute CD8 Count Absolute CD19 Count HIV DNA Qual (PCR) HIV-1 RNA PCR copies/ml HIV-1 RNA (PCR) log Miscellaneous Test Crossmatch 06/29/18 06/29/18 06/29/18 05:15 05:15 05:32 WBC 12.3 H RBC 1.93 L Hgb 5.9 L* Hct 18.2 L* MCV 95 H RDW Plt Count 127 L Seg Neuts % (Manual) Lymphocytes % (Manual) Seg Neutrophils # Man Abs Lymphs (Manual) Lymphocytes # (Manual) PT INR D-Dimer POC ABG pH POC ABG pCO2 POC ABG pO2 Sodium 136 L Potassium 5.9 H Chloride 94.3 L Carbon Dioxide BUN 139 H Creatinine 4.2 H D Glucose 157 H POC Glucose 150 H Calcium 8.2 L AST ALT C-Reactive Protein Total Protein Albumin Triglycerides Ur Specific Herman Urine WBC (Auto) Urine Creatinine Urine Total Protein Lymph Enumerat CD4/CD8 % CD3 Cells Absolute CD3 Count % CD4 Cells Absolute CD4 Count % CD8 Cells Absolute CD8 Count Absolute CD19 Count HIV DNA Qual (PCR) HIV-1 RNA PCR copies/ml HIV-1 RNA (PCR) log Miscellaneous Test Crossmatch 06/29/18 06/29/18 06/29/18 08:07 09:50 11:55 WBC RBC Hgb 6.0 L Hct 18.4 L* MCV RDW Plt Count Seg Neuts % (Manual) Lymphocytes % (Manual) Seg Neutrophils # Man Abs Lymphs (Manual) Lymphocytes # (Manual) PT INR D-Dimer POC ABG pH POC ABG pCO2 POC ABG pO2 Sodium Potassium Chloride Carbon Dioxide BUN Creatinine Glucose POC Glucose 236 H Calcium AST ALT C-Reactive Protein Total Protein Albumin Triglycerides Ur Specific Herman Urine WBC (Auto) Urine Creatinine Urine Total Protein Lymph Enumerat CD4/CD8 % CD3 Cells Absolute CD3 Count % CD4 Cells Absolute CD4 Count % CD8 Cells Absolute CD8 Count Absolute CD19 Count HIV DNA Qual (PCR) HIV-1 RNA PCR copies/ml HIV-1 RNA (PCR) log Miscellaneous Test Crossmatch See Detail 06/29/18 06/30/18 06/30/18 18:29 00:08 04:47 WBC RBC Hgb Hct MCV RDW Plt Count Seg Neuts % (Manual) Lymphocytes % (Manual) Seg Neutrophils # Man Abs Lymphs (Manual) Lymphocytes # (Manual) PT INR D-Dimer POC ABG pH 7.182 L POC ABG pCO2 67.7 H POC ABG pO2 Sodium Potassium Chloride Carbon Dioxide BUN Creatinine Glucose POC Glucose 171 H 159 H Calcium AST ALT C-Reactive Protein Total Protein Albumin Triglycerides Ur Specific Herman Urine WBC (Auto) Urine Creatinine Urine Total Protein Lymph Enumerat CD4/CD8 % CD3 Cells Absolute CD3 Count % CD4 Cells Absolute CD4 Count % CD8 Cells Absolute CD8 Count Absolute CD19 Count HIV DNA Qual (PCR) HIV-1 RNA PCR copies/ml HIV-1 RNA (PCR) log Miscellaneous Test Crossmatch 06/30/18 06/30/18 06/30/18 05:07 06:00 12:43 WBC 18.2 H RBC 2.43 L Hgb 7.4 L Hct 22.0 L MCV RDW 15.3 H Plt Count 111 L Seg Neuts % (Manual) Lymphocytes % (Manual) Seg Neutrophils # Man Abs Lymphs (Manual) Lymphocytes # (Manual) PT INR D-Dimer POC ABG pH POC ABG pCO2 POC ABG pO2 Sodium Potassium Chloride Carbon Dioxide BUN Creatinine Glucose POC Glucose 162 H 153 H Calcium AST ALT C-Reactive Protein Total Protein Albumin Triglycerides Ur Specific Herman Urine WBC (Auto) Urine Creatinine Urine Total Protein Lymph Enumerat CD4/CD8 % CD3 Cells Absolute CD3 Count % CD4 Cells Absolute CD4 Count % CD8 Cells Absolute CD8 Count Absolute CD19 Count HIV DNA Qual (PCR) HIV-1 RNA PCR copies/ml HIV-1 RNA (PCR) log Miscellaneous Test Crossmatch 06/30/18 06/30/18 07/01/18 18:07 Unknown 00:06 WBC RBC Hgb Hct MCV RDW Plt Count Seg Neuts % (Manual) Lymphocytes % (Manual) Seg Neutrophils # Man Abs Lymphs (Manual) Lymphocytes # (Manual) PT INR D-Dimer POC ABG pH POC ABG pCO2 POC ABG pO2 Sodium Potassium 5.9 H Chloride 95.5 L Carbon Dioxide BUN 164 H Creatinine 5.2 H Glucose 151 H POC Glucose 183 H 208 H Calcium 7.6 L AST ALT C-Reactive Protein Total Protein Albumin Triglycerides 223 H Ur Specific Herman Urine WBC (Auto) Urine Creatinine Urine Total Protein Lymph Enumerat CD4/CD8 % CD3 Cells Absolute CD3 Count % CD4 Cells Absolute CD4 Count % CD8 Cells Absolute CD8 Count Absolute CD19 Count HIV DNA Qual (PCR) HIV-1 RNA PCR copies/ml HIV-1 RNA (PCR) log Miscellaneous Test Crossmatch 07/01/18 07/01/18 07/01/18 04:47 05:43 06:00 WBC RBC Hgb Hct MCV RDW Plt Count Seg Neuts % (Manual) Lymphocytes % (Manual) Seg Neutrophils # Man Abs Lymphs (Manual) Lymphocytes # (Manual) PT INR D-Dimer POC ABG pH 7.060 L POC ABG pCO2 121.0 H POC ABG pO2 Sodium Potassium 5.8 H Chloride 94.1 L Carbon Dioxide BUN 144 H Creatinine 3.1 H Glucose 208 H POC Glucose 214 H Calcium 6.7 L AST ALT C-Reactive Protein Total Protein Albumin Triglycerides Ur Specific Herman Urine WBC (Auto) Urine Creatinine Urine Total Protein Lymph Enumerat CD4/CD8 % CD3 Cells Absolute CD3 Count % CD4 Cells Absolute CD4 Count % CD8 Cells Absolute CD8 Count Absolute CD19 Count HIV DNA Qual (PCR) HIV-1 RNA PCR copies/ml HIV-1 RNA (PCR) log Miscellaneous Test Crossmatch 07/01/18 07/01/18 07/01/18 06:00 06:52 10:00 WBC 17.9 H RBC 2.14 L Hgb 6.5 L 6.6 L Hct 20.0 L 20.5 L MCV RDW 15.9 H Plt Count 94 L Seg Neuts % (Manual) Lymphocytes % (Manual) Seg Neutrophils # Man Abs Lymphs (Manual) Lymphocytes # (Manual) PT INR D-Dimer 2387.14 H POC ABG pH POC ABG pCO2 POC ABG pO2 Sodium Potassium Chloride Carbon Dioxide BUN Creatinine Glucose POC Glucose Calcium AST ALT C-Reactive Protein Total Protein Albumin Triglycerides Ur Specific Herman Urine WBC (Auto) Urine Creatinine Urine Total Protein Lymph Enumerat CD4/CD8 % CD3 Cells Absolute CD3 Count % CD4 Cells Absolute CD4 Count % CD8 Cells Absolute CD8 Count Absolute CD19 Count HIV DNA Qual (PCR) HIV-1 RNA PCR copies/ml HIV-1 RNA (PCR) log Miscellaneous Test Crossmatch 07/01/18 07/01/18 07/01/18 11:11 11:41 18:38 WBC RBC Hgb Hct MCV RDW Plt Count Seg Neuts % (Manual) Lymphocytes % (Manual) Seg Neutrophils # Man Abs Lymphs (Manual) Lymphocytes # (Manual) PT INR D-Dimer POC ABG pH 7.151 L 7.168 L POC ABG pCO2 100.4 H 109.4 H POC ABG pO2 151 H 199 H Sodium Potassium Chloride Carbon Dioxide BUN Creatinine Glucose POC Glucose 213 H Calcium AST ALT C-Reactive Protein Total Protein Albumin Triglycerides Ur Specific Herman Urine WBC (Auto) Urine Creatinine Urine Total Protein Lymph Enumerat CD4/CD8 % CD3 Cells Absolute CD3 Count % CD4 Cells Absolute CD4 Count % CD8 Cells Absolute CD8 Count Absolute CD19 Count HIV DNA Qual (PCR) HIV-1 RNA PCR copies/ml HIV-1 RNA (PCR) log Miscellaneous Test Crossmatch 07/01/18 07/02/18 07/02/18 23:40 04:32 04:32 WBC 14.8 H RBC 2.68 L Hgb 8.1 L Hct 23.8 L MCV RDW Plt Count 81 L Seg Neuts % (Manual) Lymphocytes % (Manual) Seg Neutrophils # Man Abs Lymphs (Manual) Lymphocytes # (Manual) PT INR D-Dimer POC ABG pH POC ABG pCO2 POC ABG pO2 Sodium 151 H D Potassium 3.1 L D Chloride Carbon Dioxide 39 H D BUN 108 H Creatinine 1.8 H Glucose 44 L POC Glucose < 40 L Calcium 6.6 L AST ALT C-Reactive Protein Total Protein Albumin Triglycerides Ur Specific Herman Urine WBC (Auto) Urine Creatinine Urine Total Protein Lymph Enumerat CD4/CD8 % CD3 Cells Absolute CD3 Count % CD4 Cells Absolute CD4 Count % CD8 Cells Absolute CD8 Count Absolute CD19 Count HIV DNA Qual (PCR) HIV-1 RNA PCR copies/ml HIV-1 RNA (PCR) log Miscellaneous Test Crossmatch 07/02/18 07/02/18 07/02/18 05:00 05:12 11:54 WBC RBC Hgb Hct MCV RDW Plt Count Seg Neuts % (Manual) Lymphocytes % (Manual) Seg Neutrophils # Man Abs Lymphs (Manual) Lymphocytes # (Manual) PT INR D-Dimer POC ABG pH 7.319 L POC ABG pCO2 89.8 H POC ABG pO2 119 H Sodium Potassium Chloride Carbon Dioxide BUN Creatinine Glucose POC Glucose < 40 L < 40 L Calcium AST ALT C-Reactive Protein Total Protein Albumin Triglycerides Ur Specific Herman Urine WBC (Auto) Urine Creatinine Urine Total Protein Lymph Enumerat CD4/CD8 % CD3 Cells Absolute CD3 Count % CD4 Cells Absolute CD4 Count % CD8 Cells Absolute CD8 Count Absolute CD19 Count HIV DNA Qual (PCR) HIV-1 RNA PCR copies/ml HIV-1 RNA (PCR) log Miscellaneous Test Crossmatch 07/02/18 07/03/18 07/03/18 14:09 00:17 04:28 WBC RBC Hgb Hct MCV RDW Plt Count Seg Neuts % (Manual) Lymphocytes % (Manual) Seg Neutrophils # Man Abs Lymphs (Manual) Lymphocytes # (Manual) PT INR D-Dimer POC ABG pH 7.267 L POC ABG pCO2 93.3 H POC ABG pO2 69 L Sodium Potassium Chloride Carbon Dioxide BUN Creatinine Glucose POC Glucose 53 L 69 L Calcium AST ALT C-Reactive Protein Total Protein Albumin Triglycerides Ur Specific Herman Urine WBC (Auto) Urine Creatinine Urine Total Protein Lymph Enumerat CD4/CD8 % CD3 Cells Absolute CD3 Count % CD4 Cells Absolute CD4 Count % CD8 Cells Absolute CD8 Count Absolute CD19 Count HIV DNA Qual (PCR) HIV-1 RNA PCR copies/ml HIV-1 RNA (PCR) log Miscellaneous Test Crossmatch 07/03/18 07/03/18 07/03/18 05:00 05:00 05:16 WBC RBC 2.23 L Hgb 7.0 L Hct 20.3 L MCV RDW Plt Count 81 L Seg Neuts % (Manual) Lymphocytes % (Manual) Seg Neutrophils # Man Abs Lymphs (Manual) Lymphocytes # (Manual) PT INR D-Dimer POC ABG pH POC ABG pCO2 POC ABG pO2 Sodium 155 H Potassium 3.3 L Chloride Carbon Dioxide 40 H BUN 94 H Creatinine 1.7 H Glucose 115 H POC Glucose 113 H Calcium 6.9 L AST ALT C-Reactive Protein Total Protein Albumin Triglycerides Ur Specific Herman Urine WBC (Auto) Urine Creatinine Urine Total Protein Lymph Enumerat CD4/CD8 % CD3 Cells Absolute CD3 Count % CD4 Cells Absolute CD4 Count % CD8 Cells Absolute CD8 Count Absolute CD19 Count HIV DNA Qual (PCR) HIV-1 RNA PCR copies/ml HIV-1 RNA (PCR) log Miscellaneous Test Crossmatch 07/03/18 07/03/18 07/03/18 10:24 11:12 17:52 WBC RBC Hgb Hct MCV RDW Plt Count Seg Neuts % (Manual) Lymphocytes % (Manual) Seg Neutrophils # Man Abs Lymphs (Manual) Lymphocytes # (Manual) PT INR D-Dimer POC ABG pH POC ABG pCO2 POC ABG pO2 Sodium Potassium Chloride Carbon Dioxide BUN Creatinine Glucose POC Glucose 125 H 167 H Calcium AST ALT C-Reactive Protein Total Protein Albumin Triglycerides Ur Specific Herman Urine WBC (Auto) Urine Creatinine Urine Total Protein Lymph Enumerat CD4/CD8 % CD3 Cells Absolute CD3 Count % CD4 Cells Absolute CD4 Count % CD8 Cells Absolute CD8 Count Absolute CD19 Count HIV DNA Qual (PCR) HIV-1 RNA PCR copies/ml HIV-1 RNA (PCR) log Miscellaneous Test Crossmatch See Detail 07/03/18 07/03/18 07/04/18 19:15 23:43 03:57 WBC RBC Hgb 7.8 L Hct 23.8 L MCV RDW Plt Count Seg Neuts % (Manual) Lymphocytes % (Manual) Seg Neutrophils # Man Abs Lymphs (Manual) Lymphocytes # (Manual) PT INR D-Dimer POC ABG pH 7.229 L POC ABG pCO2 99.8 H POC ABG pO2 Sodium Potassium Chloride Carbon Dioxide BUN Creatinine Glucose POC Glucose 176 H Calcium AST ALT C-Reactive Protein Total Protein Albumin Triglycerides Ur Specific Herman Urine WBC (Auto) Urine Creatinine Urine Total Protein Lymph Enumerat CD4/CD8 % CD3 Cells Absolute CD3 Count % CD4 Cells Absolute CD4 Count % CD8 Cells Absolute CD8 Count Absolute CD19 Count HIV DNA Qual (PCR) HIV-1 RNA PCR copies/ml HIV-1 RNA (PCR) log Miscellaneous Test Crossmatch 03/06/19 03/06/19 03/06/19 06:06 12:42 17:49 WBC RBC Hgb Hct MCV RDW Plt Count Seg Neuts % (Manual) Lymphocytes % (Manual) Seg Neutrophils # Man Abs Lymphs (Manual) Lymphocytes # (Manual) PT INR D-Dimer POC ABG pH POC ABG pCO2 POC ABG pO2 Sodium Potassium Chloride Carbon Dioxide BUN Creatinine Glucose POC Glucose 168 H 130 H 169 H Calcium AST ALT C-Reactive Protein Total Protein Albumin Triglycerides Ur Specific Herman Urine WBC (Auto) Urine Creatinine Urine Total Protein Lymph Enumerat CD4/CD8 % CD3 Cells Absolute CD3 Count % CD4 Cells Absolute CD4 Count % CD8 Cells Absolute CD8 Count Absolute CD19 Count HIV DNA Qual (PCR) HIV-1 RNA PCR copies/ml HIV-1 RNA (PCR) log Miscellaneous Test Crossmatch 07/04/18 07/04/18 07/04/18 23:12 Unknown Unknown WBC 12.7 H RBC 2.57 L Hgb 7.7 L Hct 23.9 L MCV RDW 15.3 H Plt Count 68 L Seg Neuts % (Manual) Lymphocytes % (Manual) Seg Neutrophils # Man Abs Lymphs (Manual) Lymphocytes # (Manual) PT INR D-Dimer POC ABG pH POC ABG pCO2 POC ABG pO2 Sodium 154 H Potassium Chloride Carbon Dioxide 41 H* BUN 85 H Creatinine 1.7 H Glucose 130 H POC Glucose 162 H Calcium 7.6 L AST ALT C-Reactive Protein Total Protein Albumin Triglycerides 250 H Ur Specific Herman Urine WBC (Auto) Urine Creatinine Urine Total Protein Lymph Enumerat CD4/CD8 % CD3 Cells Absolute CD3 Count % CD4 Cells Absolute CD4 Count % CD8 Cells Absolute CD8 Count Absolute CD19 Count HIV DNA Qual (PCR) HIV-1 RNA PCR copies/ml HIV-1 RNA (PCR) log Miscellaneous Test Crossmatch 07/05/18 07/05/18 05:42 05:46 WBC RBC Hgb Hct MCV RDW Plt Count Seg Neuts % (Manual) Lymphocytes % (Manual) Seg Neutrophils # Man Abs Lymphs (Manual) Lymphocytes # (Manual) PT INR D-Dimer POC ABG pH 7.240 L POC ABG pCO2 97.9 H POC ABG pO2 71 L Sodium Potassium Chloride Carbon Dioxide BUN Creatinine Glucose POC Glucose 278 H Calcium AST ALT C-Reactive Protein Total Protein Albumin Triglycerides Ur Specific Herman Urine WBC (Auto) Urine Creatinine Urine Total Protein Lymph Enumerat CD4/CD8 % CD3 Cells Absolute CD3 Count % CD4 Cells Absolute CD4 Count % CD8 Cells Absolute CD8 Count Absolute CD19 Count HIV DNA Qual (PCR) HIV-1 RNA PCR copies/ml HIV-1 RNA (PCR) log Miscellaneous Test Crossmatch Allied health notes reviewed: nursing
--- NOTE | 2018-07-05 14:17 | Progress Note ---
Assessment and Plan ARDS with Acute respiratory failure with hypoxia requiring full mechanical ventilatory support - Likely due to severe sepsis and bilateral pneumonia - Continue to treat underlying pneumonia with antibiotics, frequent nebs, ventilator support - Critical care following Sepsis with Septic shock - secondary to bilateral pneumonia, profound immunosuppression from underlying AIDS - ID on board, CD4 count equals 10 - Continue antibiotics, pressor support, IV fluid - Patient currently on Levophed and vasopressin- Exctensive bilateral pneumonia -Extensive bilateral ground glass opacities and pneumonia with severe hypoxia. PJP versus invasive fungal versus disseminated CMV. - Cytology PJP stain negative but DFA showed rare PJP. Lung cytology GMS stain showed septated fungal hyphae with acute angle branching and yeast forms c/w Aspergillus, Fusarium, Scedosporium and other Dematiaceous fungi - Being treated with antifungal HIV WITH AIDS defining disease, ID following CD4=10 / VL 1,300,000 copies Hypernatremia, continue IV fluid Epixtasis, due to the low platelets and severe sepsis, resolved JENNIFER secondary to Multifactorial causes - in setting of pre-renal injury, ATN secondary sepsis, contrast exposure, voriconazole, bactrim/antibiotic exposure. - Nephrology following, creatinine improving slowly Severe metabolic acidosis, due to severe sepsis and worsening renal function - Continue to monitor BMP shock liver-Improving Pulmonary hypertension, likely secondary to severe pneumonia - Critical care attending following Hyperkalemia, resolved after meds, dialysis Anemia due to acute blood loss from hematuria, now stable following transfusion Gross hematuria, - Gross hematuria after muir catheter placed on06/30/18, now clearing,pink. Transfused 2 Units. Consulted Urology and Laisha Arroyo evaluated patient and recommends conservative management, since clearing H/H stable. Unstable to go for CT Abd. DVT and GI prophylaxis Poor prognosis, DO NOT RESUSCITATE CODE STATUS The high probability of a clinically significant, sudden or life threatening deterioration of the [Pulmonary] system(s) required my full and direct attention, intervention and personal management. The aggregate critical care time was [32] minutes. This time is in addition to time spent performing reported procedures but includes the following: [x] Data Review and interpretation [x] Patient assessment and monitoring of vital signs [x] Documentation [x] Medication orders and management Brief History Patient is 32 yo with hypertension presented with shortness of breath, cough. He was found to have bilateral infiltrates. He was diagnosed with acute respi ratory failure due to bilateral pneumonia. He was started on iv Antibiotics, put on BIPAP. He became worse, was intubated. Labs show HIV/AIDS, new diagnosis. Patient is followed by Pulmonology, ID Physician. few days into admission, he developed JENNIFER due to ATN from sepsis, contrast exposure and medications. Muir catheter was placed and Cr improving. Patient then developed gross hematuria, which is now resolving. Hospitalist Physical GEN: Intubated,Obese HEENT: Normocephalic, atraumatic, Neck: supple, No JVD Lungs: Bilateral crackles, no wheeze Heart:S1 and S2 regular, no murmurs, rubs or gallop, Abd:soft, non tender, non distended, normal bowel sounds Ext: Edema all ext, no clubbing or cyanosis Neuro: Intubated, sedated Skin: anasarca Subjective Date of service: 07/04/18 Principal diagnosis: Acute Hypoxemic Resp Failure; AIDS / HIV positive; Severe Sepsis due to PNA Interval history: Patient seen and examined. Medical records and medication list reviewed. No acute event overnight noted by the RN. Continue to spike fever off pressor now Patient remained intubated, no family at bedside Objective - Constitutional Vitals: Vital Signs - 12hr 07/05/18 07/05/18 07/05/18 03:00 04:00 05:00 Temperature 99.9 F H Pulse Rate 102 H 113 H 113 H Pulse Rate [ 110 H Apical] Pulse Rate [ Bilateral] Pulse Rate [ 110 H From Monitor] Respiratory 22 18 17 Rate Respiratory Rate [Bilateral ] Respiratory Rate [ Generalized] Blood Pressure 110/72 126/61 122/61 O2 Sat by Pulse 98 98 93 Oximetry 07/05/18 07/05/18 07/05/18 05:25 06:00 07:00 Temperature Pulse Rate 111 H 108 H 115 H Pulse Rate [ Apical] Pulse Rate [ Bilateral] Pulse Rate [ From Monitor] Respiratory 23 20 Rate Respiratory Rate [Bilateral ] Respiratory Rate [ Generalized] Blood Pressure 127/54 116/58 105/58 O2 Sat by Pulse 94 91 96 Oximetry 07/05/18 07/05/18 07/05/18 08:00 08:30 08:40 Temperature 99.3 F Pulse Rate 108 H 111 H Pulse Rate [ Apical] Pulse Rate [ 111 H 111 H Bilateral] Pulse Rate [ 116 H From Monitor] Respiratory 25 H Rate Respiratory 37 H 35 H Rate [Bilateral ] Respiratory Rate [ Generalized] Blood Pressure 123/67 120/61 O2 Sat by Pulse 96 96 Oximetry 07/05/18 07/05/18 07/05/18 09:00 10:00 11:00 Temperature Pulse Rate 112 H 87 108 H Pulse Rate [ Apical] Pulse Rate [ Bilateral] Pulse Rate [ From Monitor] Respiratory 18 21 37 H Rate Respiratory Rate [Bilateral ] Respiratory 34 H Rate [ Generalized] Blood Pressure 116/55 105/61 106/67 O2 Sat by Pulse 96 97 97 Oximetry 07/05/18 07/05/18 07/05/18 11:30 12:00 12:30 Temperature 99.6 F Pulse Rate 112 H 116 H 120 H Pulse Rate [ Apical] Pulse Rate [ Bilateral] Pulse Rate [ 113 H From Monitor] Respiratory 24 19 29 H Rate Respiratory Rate [Bilateral ] Respiratory Rate [ Generalized] Blood Pressure 106/67 102/60 102/58 O2 Sat by Pulse 97 96 97 Oximetry 07/05/18 07/05/18 13:00 13:30 Temperature Pulse Rate 120 H 121 H Pulse Rate [ Apical] Pulse Rate [ Bilateral] Pulse Rate [ From Monitor] Respiratory 29 H Rate Respiratory Rate [Bilateral ] Respiratory Rate [ Generalized] Blood Pressure 102/60 106/55 O2 Sat by Pulse 94 94 Oximetry - Labs CBC & Chem 7: 07/04/18 Unknown 07/04/18 Unknown Labs: Abnormal lab results 07/04/18 07/04/18 07/05/18 Range/Units 17:49 23:12 05:42 POC ABG pH 7.240 L (7.35-7.45) POC ABG pCO2 97.9 H (35-45) POC ABG pO2 71 L (80-105) POC Glucose 169 H 162 H (70-105) 07/05/18 Range/Units 05:46 POC ABG pH (7.35-7.45) POC ABG pCO2 (35-45) POC ABG pO2 (80-105) POC Glucose 278 H (70-105)
--- NOTE | 2018-07-05 14:30 | XRay Report ---
AP CHEST: HISTORY: Left PICC placement A left arm PICC has been inserted which terminates at the cavoatrial junction. The remainder of the examination is unchanged since 07/03/18. IMPRESSION: Left arm PICC placement as described.
[2018-07-05] MEDS: LEVOPHED DRIP 4 MG/NS 250 ML 4 MG/250 ML BAG IV SCH (16:53)
--- NOTE | 2018-07-05 17:07 | Progress Note ---
Assessment and Plan - Patient Problems (1) Acute tubular necrosis Current Visit: Yes Status: Acute Plan to address problem: Kidney injury due to acute tubular necrosis of multifactorial etiology secondary to contrast exposure, septic shock, medications including voriconazole/Bactrim. Pt is now in recovery phase of ATN, kidney indices improving with increased UOP. metabolic acidosis improved, now more respiratory acidosis with incomplete metabolic compensation. Cont supportive care for ATN, cont vasopressor support to maintain MAP 65mmHg, avoid further nephrotoxins, NSAIDs, IV contrast if possible. Cont hypotonic IVF while receiving gancyclovir/ampho, also given persistent hypernatremia (2) AIDS (acquired immune deficiency syndrome) Current Visit: Yes Status: Acute Plan to address problem: Continue management by infectious disease consultants (3) Hyperkalemia Current Visit: Yes Status: Acute Plan to address problem: improved with correction of acidosis. (4) Acute respiratory failure with hypoxia Current Visit: Yes Status: Acute Plan to address problem: Ventilator management by pulmonary (5) Bilateral pneumonia Current Visit: Yes Status: Acute Qualifiers: Pneumonia type: due to unspecified organism Lung location: unspecified part of lung Qualified Code(s): J18.9 - Pneumonia, unspecified organism Plan to address problem: Continue antibiotics per infectious disease alliance consultant (6) Anemia Current Visit: Yes Status: Acute Plan to address problem: Being managed by medical territory manager (7) Respiratory acidosis Current Visit: Yes Status: Acute Plan to address problem: with metabolic compensation in the setting of renal recovery. pt off bicarb gtt. cont vent management as per ICU team (8) Hypernatremia Current Visit: Yes Status: Acute Subjective Date of service: 07/05/18 Principal diagnosis: Acute Hypoxemic Resp Failure; AIDS / HIV positive; Severe Sepsis due to PNA Interval history: pt remains intubated, sedated. improving renal function noted with excellent UOP Objective - Vital Signs Vital signs: Vital Signs - 12hr 07/05/18 07/05/18 07/05/18 05:25 06:00 07:00 Temperature Pulse Rate 111 H 108 H 115 H Pulse Rate [ Bilateral] Pulse Rate [ From Monitor] Respiratory 23 20 Rate Respiratory Rate [Bilateral ] Respiratory Rate [ Generalized] Blood Pressure 127/54 116/58 105/58 O2 Sat by Pulse 94 91 96 Oximetry 07/05/18 07/05/18 07/05/18 08:00 08:30 08:40 Temperature 99.3 F Pulse Rate 108 H 111 H Pulse Rate [ 111 H 111 H Bilateral] Pulse Rate [ 116 H From Monitor] Respiratory 25 H Rate Respiratory 37 H 35 H Rate [Bilateral ] Respiratory Rate [ Generalized] Blood Pressure 123/67 120/61 O2 Sat by Pulse 96 96 Oximetry 07/05/18 07/05/18 07/05/18 09:00 10:00 11:00 Temperature Pulse Rate 112 H 87 108 H Pulse Rate [ Bilateral] Pulse Rate [ From Monitor] Respiratory 18 21 37 H Rate Respiratory Rate [Bilateral ] Respiratory 34 H Rate [ Generalized] Blood Pressure 116/55 105/61 106/67 O2 Sat by Pulse 96 97 97 Oximetry 07/05/18 07/05/18 07/05/18 11:30 12:00 12:30 Temperature 99.6 F Pulse Rate 112 H 116 H 120 H Pulse Rate [ Bilateral] Pulse Rate [ 113 H From Monitor] Respiratory 24 19 29 H Rate Respiratory Rate [Bilateral ] Respiratory Rate [ Generalized] Blood Pressure 106/67 102/60 102/58 O2 Sat by Pulse 97 96 97 Oximetry 07/05/18 07/05/18 07/05/18 13:00 13:30 14:00 Temperature Pulse Rate 120 H 121 H Pulse Rate [ 120 H Bilateral] Pulse Rate [ From Monitor] Respiratory 29 H Rate Respiratory 30 H Rate [Bilateral ] Respiratory Rate [ Generalized] Blood Pressure 102/60 106/55 O2 Sat by Pulse 94 94 Oximetry 07/05/18 07/05/18 07/05/18 14:59 16:00 16:22 Temperature 100.4 F H Pulse Rate 118 H Pulse Rate [ 119 H Bilateral] Pulse Rate [ From Monitor] Respiratory Rate Respiratory 30 H Rate [Bilateral ] Respiratory Rate [ Generalized] Blood Pressure 78/33 O2 Sat by Pulse 98 Oximetry - General Appearance General appearance: cachectic, chronically ill, sedated on ventilator, intubated EENT: ATNC, mucous membranes dry Neck: no JVD Respiratory: Present: Ronchi, Decreased Breath Sounds Cardiology: regular, tachycardia, S1S2 Gastrointestinal: normoactive bowel sounds Integumentary: no rash, other (+ edema b/l LE ) Neurologic: other (intubated ) - Lab 07/04/18 Unknown 07/04/18 Unknown Most recent lab results Calcium 7.6 mg/dL (8.4-10.2) L 07/04/18 Unknown Urine Creatinine 47.2 mg/dL (0.1-20.0) H 06/24/18 22:45 Urine Sodium 40 mmol/L 06/24/18 22:45 Urine Total Protein 25 mg/dL (5-11.8) H 06/24/18 22:45 Medications & Allergies - Medications Allergies/Adverse Reactions: Allergies No Known Allergies Allergy (Verified 06/19/18 06:10) Home Medications: Home Medications Medication Instructions Recorded Confirmed Last Taken Type ALBUTEROL Inhaler (OR & NICU) 2 puff IH QID PRN 06/19/18 06/19/18 Unknown History [Proair] Pantoprazole [Protonix] 40 mg PO QDAY 06/19/18 06/19/18 Unknown History levoFLOXacin [Levaquin TAB] 500 mg PO QDAY 06/19/18 06/19/18 Unknown History Active Medications: Generic Name Dose Route Start Last Admin Trade Name Freq PRN Reason Stop Dose Admin Acetaminophen 650 mg 06/19/18 06:30 07/02/18 21:41 Tylenol PO 650 mg Q4H PRN Administration Pain MILD(1-3)/Fever >100.5/[place] Albuterol/Ipratropium 1 ampul 06/26/18 14:00 07/05/18 14:40 Duoneb *Not For Prn Use* IH 1 ampul Q6HRT PEYTON Administration Lipase/Protease/Amylase 1 each 07/03/18 14:31 Pancreazstacey Arroyo 10,500 Unit FEEDTUBE PRN PRN For Clogged Feeding Tube Atovaquone 750 mg 07/03/18 22:00 07/05/18 09:50 Mepron PO 750 mg BID PEYTON Administration Azithromycin 1,200 mg 06/25/18 11:00 07/02/18 10:42 Zithromax PO 1,200 mg Mo PEYTON Administration Dextrose 50 ml 07/02/18 15:00 D50w (25gm) Syringe IV PRN PRN Hypoglycemia Fentanyl 50 mcg 06/19/18 06:00 06/30/18 21:56 Sublimaze IV 50 mcg Q10MIN PRN Administration ANALGESIA Hydrophilic Ointment 1 applic 06/19/18 06:00 Vaseline Lip Therapy TP Q2HR PRN Dry Lips Fentanyl Citrate 2,000 mcg in 100 mls @ 3.86 mls/hr 06/19/18 06:00 07/05/18 09:45 Fentanyl Drip Premix IV 3 mcg/kg/hr TITR PEYTON 11.581 mls/hr Administration Protocol 1 MCG/KG/HR Norepinephrine 4 mg in 250 mls @ 7.5 mls/hr 06/19/18 15:00 07/05/18 17:01 Levophed Drip 4 Mg/Ns 250 Ml IV 6 mcg/min TITR PEYTON 22.5 mls/hr Titration Protocol 2 MCG/MIN Propofol 1,000 mg in 100 mls @ 2.601 mls/hr 06/24/18 15:00 07/05/18 10:00 Diprivan 10 Mg/Ml IV 25 mcg/kg/min TITR PEYTON 13.005 mls/hr Administration Protocol 5 MCG/KG/MIN Dextrose 500 mls @ 5 mls/hr 06/25/18 08:56 06/28/18 11:07 D5w IV 5 mls/hr PRN PRN Administration FLUSH BEFORE AND AFTER AMPHO B Vasopressin 20 unit/ Sodium 101 mls @ 9.09 mls/hr 06/29/18 23:00 07/03/18 22:23 Chloride IV 0 units/min TITR PEYTON 0 mls/hr Titration Protocol 0.03 UNITS/MIN Dextrose/Sodium Chloride 1,000 mls @ 42 mls/hr 07/03/18 09:00 07/05/18 06:38 D5/0.45ns IV 42 mls/hr DIRECT PEYTON Administration Ganciclovir Sodium 500 mg/ 250 mls @ 100 mls/hr 07/05/18 06:00 07/05/18 09:20 Sodium Chloride IV Not Given Q12HR@0600,1800 PEYTON Voriconazole 400 mg/ Sodium 100 mls @ 50 mls/hr 07/05/18 06:00 07/05/18 17:00 Chloride IV 50 mls/hr Q12HR@0600,1800 PEYTON Administration Insulin Human Lispro 0 unit 06/20/18 13:00 07/05/18 13:13 Humalog SUB-Q 3 unit Q6HR PEYTON Administration Protocol Lansoprazole 30 mg 07/03/18 11:00 07/05/18 09:50 Prevacid Solutab FEEDTUBE 30 mg QDAY PEYTON Administration Methylprednisolone Sodium Succinate 40 mg 06/19/18 22:00 07/05/18 09:49 Solu-Medrol IV 40 mg Q12HR PEYTON Administration Multi-Ingred Cream/Lotion/Oil/Oint 1 applic 06/19/18 06:00 Artificial Tears Ophth Oint OU Q4HR PRN Dry Eye(s) Ondansetron HCl 4 mg 06/19/18 06:30 06/30/18 21:55 Zofran IV 4 mg Q8H PRN Administration Nausea And Vomiting Phenylephrine HCl 2 spray 06/24/18 06:07 06/25/18 05:35 Thompson-Synephrine NS 2 spray Q4H PRN Administration Congestion Simple Syrup 15 ml 07/03/18 14:31 Simple Syrup FEEDTUBE PRN PRN Hypoglycemia Simple Syrup 30 ml 07/03/18 14:31 Simple Syrup FEEDTUBE PRN PRN Hypoglycemia Sodium Bicarbonate 325 mg 07/03/18 15:14 Sodium Bicarbonate FEEDTUBE PRN PRN For Clogged Feeding Tube Sodium Chloride 10 ml 06/19/18 10:00 07/05/18 10:17 Sodium Chloride Flush Syringe 10 Ml IV 10 ml BID PEYTON Administration Sodium Chloride 10 ml 06/19/18 06:30 Sodium Chloride Flush Syringe 10 Ml IV PRN PRN LINE FLUSH
[2018-07-05] MEDS: NEO-SYNEPHRINE NS PRN (18:00)
[2018-07-06] MEDS: TYLENOL PO PRN ×2 (03:14→21:53)
[2018-07-06] MEDS: DUONEB *Not for PRN Use IH SCH ×4 (03:20→21:51)
[2018-07-06] MEDS: DIPRIVAN 10 MG/ML 1,000 MG/100 ML BOTTLE IV SCH ×3 (03:26→17:12)
[2018-07-06] MEDS: fentaNYL DRIP Premix 2,000 MCG/100 ML BAG IV SCH ×3 (03:26→14:02)
[2018-07-06] MEDS: NACL 0.9% IV SCH ×2 (06:04→17:13)
[2018-07-06] MEDS: VFEND IV SCH ×2 (06:04→17:13)
[2018-07-06] MEDS: HumaLOG SUB-Q SCH ×4 (06:06→23:16)
[2018-07-06] MEDS: CYTOVENE 500 MG in NACL 0.9% 250ML 250 ML IV SCH ×2 (06:06→18:32)
[2018-07-06 06:46] LABS: Hematocrit 22.3 % (35.5-45.6); Hemoglobin 7.3 gm/dl (11.8-15.2); Mean Corpuscular HGB Conc 33 % (32-34); Mean Corpuscular Volume 97 fl (84-94); Red Cell Distribution Width 15.9 % (13.2-15.2)
[2018-07-06 07:01] LABS: BUN/Creatinine Ratio 58; Blood Urea Nitrogen 52 mg/dL (9-20); Calcium 8.1 mg/dL (8.4-10.2); Hemolysis Index 9
[2018-07-06 07:30] LABS: Basophils % (Manual) 0 % (0.0-1.8); Eosinophils % (Manual) 0 % (0.0-4.3); Monocytes % (Manual) 0 % (0.0-7.3); Total Cells Counted 100
[2018-07-06 07:31] LABS: Hypochromasia 2+; Macrocytosis 1+; Ovalocytes Few; Poikilocytosis 1+; Schistocytes Rare; Stomatocytes 1+
[2018-07-06 07:32] LABS: Anisocytosis 2+; Platelet Count 56 K/mm3 (140-440); Platelet Estimate Cons
[2018-07-06 07:33] LABS: Mean Platelet Volume 10.6 fl (6-12)
[2018-07-06] MEDS: D5NS 0.2% 1,000 ML IV SCH (08:54)
[2018-07-06] MEDS: PREVACID SOLUTAB FEEDTUBE SCH (09:04)
[2018-07-06] MEDS: SOLU-Medrol IV SCH ×2 (09:04→21:53)
[2018-07-06] MEDS: SODIUM CHLORIDE FLUSH SYRINGE 10 ML IV SCH ×2 (09:04→21:54)
[2018-07-06] MEDS: MEPRON PO SCH ×2 (09:04→21:53)
--- NOTE | 2018-07-06 10:59 | Progress Note ---
Assessment and Plan - Patient Problems (1) Acute tubular necrosis Current Visit: Yes Status: Acute Plan to address problem: Kidney injury due to acute tubular necrosis of multifactorial etiology secondary to contrast exposure, septic shock, medications including voriconazole/Bactrim. Pt is now in recovery phase of ATN, kidney indices improving with increased UOP. metabolic acidosis improved, now more respiratory acidosis with incomplete metabolic compensation. Cont supportive care for ATN, cont vasopressor support to maintain MAP 65mmHg, avoid further nephrotoxins, NSAIDs, IV contrast if possible. Cont hypotonic IVF while receiving gancyclovir/ampho, also given persistent hypernatremia (2) AIDS (acquired immune deficiency syndrome) Current Visit: Yes Status: Acute Plan to address problem: Continue management by infectious disease consultants (3) Hyperkalemia Current Visit: Yes Status: Acute Plan to address problem: improved (4) Acute respiratory failure with hypoxia Current Visit: Yes Status: Acute Plan to address problem: Ventilator management by pulmonary (5) Bilateral pneumonia Current Visit: Yes Status: Acute Qualifiers: Pneumonia type: due to unspecified organism Lung location: unspecified part of lung Qualified Code(s): J18.9 - Pneumonia, unspecified organism Plan to address problem: Continue antibiotics per infectious disease clinical sales consultant (6) Anemia Current Visit: Yes Status: Acute Plan to address problem: Being managed by office machine servicer (7) Respiratory acidosis Current Visit: Yes Status: Acute Plan to address problem: with metabolic compensation in the setting of renal recovery. pt off bicarb gtt. cont vent management as per ICU team (8) Hypernatremia Current Visit: Yes Status: Acute Plan to address problem: due to polyuric phase of ATN, cont D5 0.2% NS and free water flushes 250ml q4h via NGT Subjective Date of service: 07/06/18 Principal diagnosis: Acute Hypoxemic Resp Failure; AIDS / HIV positive; Severe Sepsis due to PNA Interval history: pt remains intubated, sedated. improving renal function noted with excellent UOP. Objective - Vital Signs Vital signs: Vital Signs - 12hr 07/05/18 07/05/18 07/05/18 23:00 23:10 23:14 Temperature Pulse Rate 98 H 110 H 111 H Pulse Rate [ Bilateral] Pulse Rate [ From Monitor] Respiratory Rate [Bilateral ] Blood Pressure 121/70 127/70 130/71 O2 Sat by Pulse 98 98 99 Oximetry 07/05/18 07/05/18 07/05/18 23:15 23:30 23:36 Temperature 99.6 F Pulse Rate 106 H 109 H Pulse Rate [ Bilateral] Pulse Rate [ From Monitor] Respiratory Rate [Bilateral ] Blood Pressure 130/71 130/71 O2 Sat by Pulse 99 97 Oximetry 07/05/18 07/06/18 07/06/18 23:45 00:00 00:15 Temperature Pulse Rate 112 H 113 H 93 H Pulse Rate [ Bilateral] Pulse Rate [ 104 H From Monitor] Respiratory Rate [Bilateral ] Blood Pressure 117/70 120/69 117/59 O2 Sat by Pulse 98 98 98 Oximetry 07/06/18 07/06/18 07/06/18 00:30 00:46 01:00 Temperature Pulse Rate 102 H 123 H 112 H Pulse Rate [ Bilateral] Pulse Rate [ From Monitor] Respiratory Rate [Bilateral ] Blood Pressure 123/66 123/66 97/64 O2 Sat by Pulse 98 96 96 Oximetry 07/06/18 07/06/18 07/06/18 01:16 01:30 01:45 Temperature Pulse Rate 118 H 97 H 110 H Pulse Rate [ Bilateral] Pulse Rate [ From Monitor] Respiratory Rate [Bilateral ] Blood Pressure 99/54 97/64 105/66 O2 Sat by Pulse 94 98 99 Oximetry 07/06/18 07/06/18 07/06/18 02:00 02:15 02:30 Temperature Pulse Rate 114 H 109 H 98 H Pulse Rate [ Bilateral] Pulse Rate [ 104 H From Monitor] Respiratory Rate [Bilateral ] Blood Pressure 111/62 113/59 113/59 O2 Sat by Pulse 99 99 97 Oximetry 07/06/18 07/06/18 07/06/18 02:45 03:00 03:16 Temperature Pulse Rate 109 H 96 H 109 H Pulse Rate [ Bilateral] Pulse Rate [ From Monitor] Respiratory Rate [Bilateral ] Blood Pressure 118/67 123/67 131/72 O2 Sat by Pulse 99 100 97 Oximetry 07/06/18 07/06/18 07/06/18 03:20 03:21 03:30 Temperature Pulse Rate 102 H 104 H Pulse Rate [ 106 H Bilateral] Pulse Rate [ From Monitor] Respiratory 31 H Rate [Bilateral ] Blood Pressure 131/72 141/81 O2 Sat by Pulse 98 97 Oximetry 07/06/18 07/06/18 07/06/18 03:35 03:45 04:00 Temperature Pulse Rate 110 H 110 H Pulse Rate [ 112 H Bilateral] Pulse Rate [ 87 From Monitor] Respiratory 31 H Rate [Bilateral ] Blood Pressure 128/59 130/63 O2 Sat by Pulse 97 97 Oximetry 07/06/18 07/06/18 07/06/18 04:16 04:30 04:45 Temperature Pulse Rate 124 H 107 H 105 H Pulse Rate [ Bilateral] Pulse Rate [ From Monitor] Respiratory Rate [Bilateral ] Blood Pressure 117/57 115/56 114/59 O2 Sat by Pulse 92 96 96 Oximetry 07/06/18 07/06/18 07/06/18 05:00 05:15 05:30 Temperature Pulse Rate 94 H 108 H 112 H Pulse Rate [ Bilateral] Pulse Rate [ From Monitor] Respiratory Rate [Bilateral ] Blood Pressure 115/56 110/68 106/63 O2 Sat by Pulse 98 98 99 Oximetry 07/06/18 07/06/18 07/06/18 05:45 06:00 06:16 Temperature Pulse Rate 109 H 112 H 107 H Pulse Rate [ Bilateral] Pulse Rate [ From Monitor] Respiratory Rate [Bilateral ] Blood Pressure 114/71 114/71 129/69 O2 Sat by Pulse 98 95 97 Oximetry 07/06/18 07/06/18 07/06/18 06:30 06:46 07:00 Temperature Pulse Rate 126 H 113 H 107 H Pulse Rate [ Bilateral] Pulse Rate [ From Monitor] Respiratory Rate [Bilateral ] Blood Pressure 120/68 116/69 116/69 O2 Sat by Pulse 92 95 96 Oximetry 07/06/18 07/06/18 07/06/18 07:15 07:21 07:30 Temperature Pulse Rate 108 H 111 H 109 H Pulse Rate [ 111 H Bilateral] Pulse Rate [ From Monitor] Respiratory 32 H Rate [Bilateral ] Blood Pressure 117/64 117/64 122/66 O2 Sat by Pulse 96 96 93 Oximetry 07/06/18 07/06/18 07:54 08:00 Temperature 100.3 F H Pulse Rate Pulse Rate [ 108 H Bilateral] Pulse Rate [ From Monitor] Respiratory 34 H Rate [Bilateral ] Blood Pressure O2 Sat by Pulse Oximetry - General Appearance General appearance: chronically ill, sedated on ventilator, intubated EENT: ATNC, mucous membranes moist Neck: no JVD Respiratory: Present: Decreased Breath Sounds Cardiology: regular, S1S2 Gastrointestinal: normoactive bowel sounds Integumentary: no rash, other (+ edema b/l LE ) Neurologic: other (on vent, sedated ) - Lab 07/06/18 06:36 07/06/18 06:36 Most recent lab results Calcium 8.1 mg/dL (8.4-10.2) L 07/06/18 06:36 Urine Creatinine 47.2 mg/dL (0.1-20.0) H 06/24/18 22:45 Urine Sodium 40 mmol/L 06/24/18 22:45 Urine Total Protein 25 mg/dL (5-11.8) H 06/24/18 22:45 Medications & Allergies - Medications Allergies/Adverse Reactions: Allergies No Known Allergies Allergy (Verified 06/19/18 06:10) Home Medications: Home Medications Medication Instructions Recorded Confirmed Last Taken Type ALBUTEROL Inhaler (OR & NICU) 2 puff IH QID PRN 06/19/18 06/19/18 Unknown History [Proair] Pantoprazole [Protonix] 40 mg PO QDAY 06/19/18 06/19/18 Unknown History levoFLOXacin [Levaquin TAB] 500 mg PO QDAY 06/19/18 06/19/18 Unknown History Active Medications: Generic Name Dose Route Start Last Admin Trade Name Freq PRN Reason Stop Dose Admin Acetaminophen 650 mg 06/19/18 06:30 07/06/18 03:14 Tylenol PO 650 mg Q4H PRN Administration Pain MILD(1-3)/Fever >100.5/[place] Albuterol/Ipratropium 1 ampul 06/26/18 14:00 07/06/18 07:21 Duoneb *Not For Prn Use* IH 1 ampul Q6HRT PEYTON Administration Lipase/Protease/Amylase 1 each 07/03/18 14:31 Pancreazstacey Arroyo 10,500 Unit FEEDTUBE PRN PRN For Clogged Feeding Tube Atovaquone 750 mg 07/03/18 22:00 07/06/18 09:04 Mepron PO 750 mg BID PEYTON Administration Azithromycin 1,200 mg 06/25/18 11:00 07/02/18 10:42 Zithromax PO 1,200 mg Mo PEYTON Administration Dextrose 50 ml 07/02/18 15:00 D50w (25gm) Syringe IV PRN PRN Hypoglycemia Fentanyl 50 mcg 06/19/18 06:00 06/30/18 21:56 Sublimaze IV 50 mcg Q10MIN PRN Administration ANALGESIA Hydrophilic Ointment 1 applic 06/19/18 06:00 Vaseline Lip Therapy TP Q2HR PRN Dry Lips Fentanyl Citrate 2,000 mcg in 100 mls @ 3.86 mls/hr 06/19/18 06:00 07/06/18 08:10 Fentanyl Drip Premix IV 4 mcg/kg/hr TITR PEYTON 15.441 mls/hr Administration Protocol 1 MCG/KG/HR Norepinephrine 4 mg in 250 mls @ 7.5 mls/hr 06/19/18 15:00 07/06/18 02:10 Levophed Drip 4 Mg/Ns 250 Ml IV 0 mcg/min TITR PEYTON 0 mls/hr Titration Protocol 2 MCG/MIN Propofol 1,000 mg in 100 mls @ 2.601 mls/hr 06/24/18 15:00 07/06/18 08:52 Diprivan 10 Mg/Ml IV 25 mcg/kg/min TITR PEYTON 13.005 mls/hr Administration Protocol 5 MCG/KG/MIN Dextrose 500 mls @ 5 mls/hr 06/25/18 08:56 06/28/18 11:07 D5w IV 5 mls/hr PRN PRN Administration FLUSH BEFORE AND AFTER AMPHO B Vasopressin 20 unit/ Sodium 101 mls @ 9.09 mls/hr 06/29/18 23:00 07/03/18 22:23 Chloride IV 0 units/min TITR PEYTON 0 mls/hr Titration Protocol 0.03 UNITS/MIN Ganciclovir Sodium 500 mg/ 250 mls @ 100 mls/hr 07/05/18 06:00 07/06/18 06:06 Sodium Chloride IV 100 mls/hr Q12HR@0600,1800 PEYTON Administration Voriconazole 400 mg/ Sodium 100 mls @ 50 mls/hr 07/05/18 06:00 07/06/18 06:04 Chloride IV 50 mls/hr Q12HR@0600,1800 PEYTON Administration Dextrose/Sodium Chloride 1,000 mls @ 50 mls/hr 07/06/18 08:00 07/06/18 08:54 D5ns 0.2% IV 50 mls/hr DIRECT PEYTON Administration Insulin Human Lispro 0 unit 06/20/18 13:00 07/06/18 06:06 Humalog SUB-Q 6 unit Q6HR PEYTON Administration Protocol Lansoprazole 30 mg 07/03/18 11:00 07/06/18 09:04 Prevacid Solutab FEEDTUBE 30 mg QDAY PEYTON Administration Methylprednisolone Sodium Succinate 40 mg 06/19/18 22:00 07/06/18 09:04 Solu-Medrol IV 40 mg Q12HR PEYTON Administration Multi-Ingred Cream/Lotion/Oil/Oint 1 applic 06/19/18 06:00 Artificial Tears Ophth Oint OU Q4HR PRN Dry Eye(s) Ondansetron HCl 4 mg 06/19/18 06:30 06/30/18 21:55 Zofran IV 4 mg Q8H PRN Administration Nausea And Vomiting Phenylephrine HCl 2 spray 06/24/18 06:07 07/05/18 18:00 Thompson-Synephrine NS 2 spray Q4H PRN Administration Congestion Simple Syrup 15 ml 07/03/18 14:31 Simple Syrup FEEDTUBE PRN PRN Hypoglycemia Simple Syrup 30 ml 07/03/18 14:31 Simple Syrup FEEDTUBE PRN PRN Hypoglycemia Sodium Bicarbonate 325 mg 07/03/18 15:14 Sodium Bicarbonate FEEDTUBE PRN PRN For Clogged Feeding Tube Sodium Chloride 10 ml 06/19/18 10:00 07/06/18 09:04 Sodium Chloride Flush Syringe 10 Ml IV 10 ml BID PEYTON Administration Sodium Chloride 10 ml 06/19/18 06:30 Sodium Chloride Flush Syringe 10 Ml IV PRN PRN LINE FLUSH
--- NOTE | 2018-07-06 11:07 | Progress Note ---
Assessment and Plan Cultures: 06/19/2018 blood culture: no growth 06/19/2018 tracheal aspirate: usual resp david/ Rothia mucilaginosa 06/19/2018 fungal blood culture: no growth 06/20/2018 Serum CrAg: negative Cytology PJP stain negative GMS stain showed septated fungal hyphae with acute angle branching and yeast forms c/w Aspergillus, Fusarium, Scedosporium and other Dematiaceous fungi. DFA showed rare PJP CMV DNA PCR 06/19/2018 13,166 BAL 06/25/2018 Tigist albicans, fungal culture negative Toxo IgG: negative A/P: 32/M with: #1 Acute hypoxic and hypercapneic respiratory failure, refractory with bilateral pneumonia / ?ARDS: Extensive bilateral ground glass opacities and pneumonia with severe hypoxia. Unclear etiology ? PJP versus invasive fungal versus disseminated CMV. 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 Lung cytology GMS stain showed septated fungal hyphae with acute angle branching and yeast forms c/w Aspergillus, Fusarium, Scedosporium and other Dematiaceous fungi. 06/19/2018 tracheal aspirate showed usual resp david/ Rothia mucilaginosa. 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 patient got bactrim IV for 5 days and IV voriconazole for 4 days witouht any improvement on vent setting. - s/p voriconazole x 4 days - no improvement, stopped on 06/25 - s/p amphothericin x 10 days on 06/25 -07/04 - Serum CMV DNA PCR 06/19/2018,166 - this is probably reactivation in the setting of critical illness - BAL 06/25/2018 Tigist albicans likely a colonizer, AFB negative, fungal culture negative - completed vancomycin renally dosed to cover Rothia D5 on 06/28 - Aspregillus ag negative - S/p bactrim renally adjusted D15 on 07/03 - now on voriconazole, ganciclovir and mepron #2 HIV/AIDS:CD4=10 / VL 1,300,000 copies. Overall, extremely poor prognosis. #3 Sepsis with septic shock: Likely secondary to above. #4 JENNIFER: resolved. 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 Recs: CT sinus when stable f/u serum CMV PCR ordered on 07/03 continue voriconazole D3 continue ganciclovir D9 continue mepron continue azithromycin 1200 mg qweek for MAC prophylaxis wean steroids, discussed with Dr. Nichole overall, extremely poor prognosis MD [facility] C: [phone] O: [phone] F: [phone] Subjective Date of service: 07/06/18 Principal diagnosis: Acute Hypoxemic Resp Failure; AIDS / HIV positive; Severe Sepsis due to PNA Interval history: Remains on the vent. Sedated. Briefly was on pressors yesterday. Discussed with RN. Objective - Exam Narrative Exam: Physical Exam: Constitutional: sedated, intubated. Head, Ears, Nose: Normocephalic, atraumatic. External ears, nose normal Eyes: Conjunctivae/corneas clear. No icterus. No ptosis. Neck: Supple, no meningeal signs Oral: intubated Cardiovascular: S1, S2 normal. Respiratory: Good air entry, clear to auscultation bilaterally GI: Soft, non-tender; bowel sounds normal. No peritoneal signs Musculoskeletal: No pedal edema, no cyanosis. Skin: No rash or abscess Hem/Lymphatic: No palpable cervical or supraclavicular nodes. No lymphangitis Psych: sedated Neurological: sedated, intubated, on vent, exam limited - Constitutional Vitals: Vital Signs Temp Pulse Resp BP Pulse Ox 100.3 F H 108 H 34 H 122/66 93 07/06/18 08:00 07/06/18 07:54 07/06/18 07:54 07/06/18 07:30 07/06/18 07:30 Temperature -Last 24 Hours Temperature 100.3 F Temperature 99.6 F Temperature 98.0 F Temperature 100.4 F Temperature 99.6 F - Labs CBC & Chem 7: 07/06/18 06:36 07/06/18 06:36 Labs: Abnormal lab results 07/05/18 07/05/18 07/05/18 Range/Units 12:45 16:22 17:43 RBC (3.65-5.03) M/mm3 Hgb (11.8-15.2) gm/dl Hct (35.5-45.6) % MCV (84-94) fl RDW (13.2-15.2) % Plt Count (140-440) K/mm3 Seg Neuts % (Manual) (40.0-70.0) % Lymphocytes % (Manual) (13.4-35.0) % Seg Neutrophils # Man (1.8-7.7) K/mm3 Lymphocytes # (Manual) (1.2-5.4) K/mm3 POC ABG pH 7.094 L 7.112 L (7.35-7.45) POC ABG pCO2 129.6 H 125.4 H (35-45) POC ABG pO2 181 H 69 L (80-105) Sodium (137-145) mmol/L Chloride (98-107) mmol/L Carbon Dioxide (22-30) mmol/L BUN (9-20) mg/dL Glucose (75-100) mg/dL POC Glucose 268 H (70-105) Calcium (8.4-10.2) mg/dL 07/05/18 07/05/18 07/05/18 Range/Units 17:54 20:15 23:18 RBC (3.65-5.03) M/mm3 Hgb (11.8-15.2) gm/dl Hct (35.5-45.6) % MCV (84-94) fl RDW (13.2-15.2) % Plt Count (140-440) K/mm3 Seg Neuts % (Manual) (40.0-70.0) % Lymphocytes % (Manual) (13.4-35.0) % Seg Neutrophils # Man (1.8-7.7) K/mm3 Lymphocytes # (Manual) (1.2-5.4) K/mm3 POC ABG pH 7.140 L (7.35-7.45) POC ABG pCO2 121.0 H (35-45) POC ABG pO2 113 H (80-105) Sodium (137-145) mmol/L Chloride (98-107) mmol/L Carbon Dioxide (22-30) mmol/L BUN (9-20) mg/dL Glucose (75-100) mg/dL POC Glucose 221 H 227 H (70-105) Calcium (8.4-10.2) mg/dL 03/12/1707/06/18 07/06/18 Range/Units 05:20 06:04 06:36 RBC (3.65-5.03) M/mm3 Hgb (11.8-15.2) gm/dl Hct (35.5-45.6) % MCV (84-94) fl RDW (13.2-15.2) % Plt Count (140-440) K/mm3 Seg Neuts % (Manual) (40.0-70.0) % Lymphocytes % (Manual) (13.4-35.0) % Seg Neutrophils # Man (1.8-7.7) K/mm3 Lymphocytes # (Manual) (1.2-5.4) K/mm3 POC ABG pH 7.256 L (7.35-7.45) POC ABG pCO2 97.8 H (35-45) POC ABG pO2 137 H (80-105) Sodium 157 H (137-145) mmol/L Chloride 111.9 H (98-107) mmol/L Carbon Dioxide 41 H* (22-30) mmol/L BUN 52 H (9-20) mg/dL Glucose 278 H (75-100) mg/dL POC Glucose 277 H (70-105) Calcium 8.1 L (8.4-10.2) mg/dL 07/06/18 Range/Units 06:36 RBC 2.30 L (3.65-5.03) M/mm3 Hgb 7.3 L (11.8-15.2) gm/dl Hct 22.3 L (35.5-45.6) % MCV 97 H (84-94) fl RDW 15.9 H (13.2-15.2) % Plt Count 56 L (140-440) K/mm3 Seg Neuts % (Manual) 97.0 H (40.0-70.0) % Lymphocytes % (Manual) 3.0 L (13.4-35.0) % Seg Neutrophils # Man 9.6 H (1.8-7.7) K/mm3 Lymphocytes # (Manual) 0.3 L (1.2-5.4) K/mm3 POC ABG pH (7.35-7.45) POC ABG pCO2 (35-45) POC ABG pO2 (80-105) Sodium (137-145) mmol/L Chloride (98-107) mmol/L Carbon Dioxide (22-30) mmol/L BUN (9-20) mg/dL Glucose (75-100) mg/dL POC Glucose (70-105) Calcium (8.4-10.2) mg/dL - Imaging and cardiology Chest x-ray: report reviewed, image reviewed (bilateral diffuse infiltrates)
--- NOTE | 2018-07-06 13:25 | Progress Note ---
Assessment and Plan ARDS Acute Hypoxemic Respiratory Failure on MVS AIDS / HIV positive Severe Sepsis due to Pneumonia LLext DVT Hyponatremia Severe metabolic acidosis Shock liver - continue current ventilators settings - accept higher PIP's as severe hypercapnic acidosis otherwise - continue to target TV 4-6 ml/kg IBW - continue to wean supplemental oxygen to keep O2 sats > 89% - continue permissive hypercapnia strategies - continue anti-infectives per ID recs - 2D ECHO with normal EF - Seroquel stopped - continue to titrate sedatives for RASS -2 while on ARDS ventilation - continue anti-infective's per ID recommendations - trend CRP and lactate levels as necessary to aid clinical decision making - continue bronchodilators with pulmonary hygiene per RT - continue hyperventilation acutely to compensate for metabolic acidosis - VAP bundle addressed - daily SAT's - Daily SBT assessment - GI & VTE prophylaxis - enteral nutrition as tolerated - continue accuchecks q6h with glycemic control per SSI for target BG 140-180 m g/dL - continue other care per attending / other bi consultant's .... re-evaluate in am & prn CODE STATUS: FULL CODE The high probability of a clinically significant, sudden or life-threatening deterioration of the [cardiac, neurology] system(s) required my full and direct attention, intervention and personal management. The aggregate critical care time was [33] minutes without overlap. Time includes spent on; [x] Data Review and interpretation [x] Patient assessment and monitoring of vital signs [x] Documentation [x] Medication orders and management Subjective Date of service: 07/06/18 Principal diagnosis: Acute Hypoxemic Resp Failure; AIDS / HIV positive; Severe Sepsis due to PNA Interval history: Patient is seen today for: Acute Hypoxemic Respiratory Failure on MVS; AIDS / HIV positive; Severe Sepsis due to Pneumonia; Hyponatremia; Severe metabolic acidosis Seen and examined at bedside; 24hour events reviewed; nursing and respiratory care staff consulted; no adverse overnight events reported to me; remains on MVS; remains with ARDS; no gross bleeding; no emesis or overt aspiration; no seizures Objective Vital Signs - 12hr 07/06/18 07/06/18 07/06/18 01:30 01:45 02:00 Temperature Pulse Rate 97 H 110 H 114 H Pulse Rate [ Bilateral] Pulse Rate [ 104 H From Monitor] Respiratory Rate Respiratory Rate [Bilateral ] Respiratory Rate [ Generalized] Blood Pressure 97/64 105/66 111/62 O2 Sat by Pulse 98 99 99 Oximetry 07/06/18 07/06/18 07/06/18 02:15 02:30 02:45 Temperature Pulse Rate 109 H 98 H 109 H Pulse Rate [ Bilateral] Pulse Rate [ From Monitor] Respiratory Rate Respiratory Rate [Bilateral ] Respiratory Rate [ Generalized] Blood Pressure 113/59 113/59 118/67 O2 Sat by Pulse 99 97 99 Oximetry 07/06/18 07/06/18 07/06/18 03:00 03:16 03:20 Temperature Pulse Rate 96 H 109 H Pulse Rate [ 106 H Bilateral] Pulse Rate [ From Monitor] Respiratory Rate Respiratory 31 H Rate [Bilateral ] Respiratory Rate [ Generalized] Blood Pressure 123/67 131/72 O2 Sat by Pulse 100 97 Oximetry 07/06/18 07/06/18 07/06/18 03:21 03:30 03:35 Temperature Pulse Rate 102 H 104 H Pulse Rate [ 112 H Bilateral] Pulse Rate [ From Monitor] Respiratory Rate Respiratory 31 H Rate [Bilateral ] Respiratory Rate [ Generalized] Blood Pressure 131/72 141/81 O2 Sat by Pulse 98 97 Oximetry 07/06/18 07/06/18 07/06/18 03:45 04:00 04:16 Temperature Pulse Rate 110 H 110 H 124 H Pulse Rate [ Bilateral] Pulse Rate [ 87 From Monitor] Respiratory Rate Respiratory Rate [Bilateral ] Respiratory Rate [ Generalized] Blood Pressure 128/59 130/63 117/57 O2 Sat by Pulse 97 97 92 Oximetry 07/06/18 07/06/18 07/06/18 04:30 04:45 05:00 Temperature Pulse Rate 107 H 105 H 94 H Pulse Rate [ Bilateral] Pulse Rate [ From Monitor] Respiratory Rate Respiratory Rate [Bilateral ] Respiratory Rate [ Generalized] Blood Pressure 115/56 114/59 115/56 O2 Sat by Pulse 96 96 98 Oximetry 07/06/18 07/06/18 07/06/18 05:15 05:30 05:45 Temperature Pulse Rate 108 H 112 H 109 H Pulse Rate [ Bilateral] Pulse Rate [ From Monitor] Respiratory Rate Respiratory Rate [Bilateral ] Respiratory Rate [ Generalized] Blood Pressure 110/68 106/63 114/71 O2 Sat by Pulse 98 99 98 Oximetry 07/06/18 07/06/18 07/06/18 06:00 06:16 06:30 Temperature Pulse Rate 112 H 107 H 126 H Pulse Rate [ Bilateral] Pulse Rate [ From Monitor] Respiratory Rate Respiratory Rate [Bilateral ] Respiratory Rate [ Generalized] Blood Pressure 114/71 129/69 120/68 O2 Sat by Pulse 95 97 92 Oximetry 07/06/18 07/06/18 07/06/18 06:46 07:00 07:15 Temperature Pulse Rate 113 H 107 H 108 H Pulse Rate [ Bilateral] Pulse Rate [ From Monitor] Respiratory Rate Respiratory Rate [Bilateral ] Respiratory Rate [ Generalized] Blood Pressure 116/69 116/69 117/64 O2 Sat by Pulse 95 96 96 Oximetry 07/06/18 07/06/18 07/06/18 07:21 07:30 07:45 Temperature Pulse Rate 111 H 109 H 106 H Pulse Rate [ 111 H Bilateral] Pulse Rate [ From Monitor] Respiratory Rate Respiratory 32 H Rate [Bilateral ] Respiratory Rate [ Generalized] Blood Pressure 117/64 122/66 127/61 O2 Sat by Pulse 96 93 97 Oximetry 07/06/18 07/06/18 07/06/18 07:54 08:00 08:15 Temperature 100.3 F H Pulse Rate 118 H 114 H Pulse Rate [ 108 H Bilateral] Pulse Rate [ 85 From Monitor] Respiratory 32 H Rate Respiratory 34 H Rate [Bilateral ] Respiratory Rate [ Generalized] Blood Pressure 127/61 127/63 O2 Sat by Pulse 99 98 Oximetry 07/06/18 07/06/18 07/06/18 08:30 08:45 09:00 Temperature Pulse Rate 111 H 112 H 110 H Pulse Rate [ Bilateral] Pulse Rate [ From Monitor] Respiratory Rate Respiratory Rate [Bilateral ] Respiratory Rate [ Generalized] Blood Pressure 127/63 113/64 113/64 O2 Sat by Pulse 99 97 97 Oximetry 07/06/18 07/06/18 07/06/18 09:15 09:30 09:46 Temperature Pulse Rate 111 H 110 H 112 H Pulse Rate [ Bilateral] Pulse Rate [ From Monitor] Respiratory Rate Respiratory Rate [Bilateral ] Respiratory Rate [ Generalized] Blood Pressure 129/64 129/64 116/63 O2 Sat by Pulse 97 98 96 Oximetry 07/06/18 07/06/18 07/06/18 10:00 10:16 10:30 Temperature Pulse Rate 115 H 114 H 111 H Pulse Rate [ Bilateral] Pulse Rate [ From Monitor] Respiratory Rate Respiratory Rate [Bilateral ] Respiratory 33 H Rate [ Generalized] Blood Pressure 116/63 113/63 113/63 O2 Sat by Pulse 90 92 94 Oximetry 07/06/18 07/06/18 07/06/18 10:45 11:00 11:12 Temperature Pulse Rate 113 H 112 H 111 H Pulse Rate [ Bilateral] Pulse Rate [ From Monitor] Respiratory Rate Respiratory Rate [Bilateral ] Respiratory Rate [ Generalized] Blood Pressure 119/65 119/65 124/64 O2 Sat by Pulse 96 97 98 Oximetry 07/06/18 07/06/18 11:16 11:40 Temperature Pulse Rate 111 H Pulse Rate [ Bilateral] Pulse Rate [ 112 H From Monitor] Respiratory 33 H Rate Respiratory Rate [Bilateral ] Respiratory Rate [ Generalized] Blood Pressure 115/67 O2 Sat by Pulse 97 97 Oximetry Constitutional: appears uncomfortable, other (young HM normocephalic and atraumatic with moderately increased respiratory effort at rest) Eyes: non-icteric ENT: oropharynx moist, other (ETT 23 cm SATISH) Neck: supple, no lymphadenopathy, no JVD, other (no thyromegaly) Effort: mildly labored Ascultation: Bilateral: diminished breath sounds, rhonchi Percussion: Bilateral: not dull Cardiovascular: regular rate and rhythm Gastrointestinal: normoactive bowel sounds, soft, non-tender, non-distended Integumentary: rash Extremities: no cyanosis, pink and warm, pulses normal, no ischemia or petechiae, edema (trace) Neurologic: non-focal exam (grossly), pupils equal and round, motor strength normal and, unable to assess Psychiatric: other (unable to assess) CBC and BMP: 07/07/18 04:00 07/07/18 04:00 ABG, PT/INR, D-dimer: ABG POC ABG pH 7.256 (7.35-7.45) L 07/06/18 05:20 POC ABG pCO2 97.8 (35-45) H 07/06/18 05:20 POC ABG pO2 137 (80-105) H 07/06/18 05:20 POC ABG HCO3 43.5 07/06/18 05:20 POC ABG Total CO2 46 07/06/18 05:20 POC ABG O2 Sat 98 07/06/18 05:20 PT/INR, D-dimer PT 14.3 Sec. (12.2-14.9) 07/01/18 09:11 INR 1.05 (0.87-1.13) 07/01/18 09:11 D-Dimer 2387.14 ng/mlDDU (0-234) H 07/01/18 10:00 Abnormal lab findings: Abnormal Labs 06/19/18 06/19/18 06/19/18 03:31 07:11 07:42 WBC RBC Hgb Hct MCV RDW Plt Count Seg Neuts % (Manual) Lymphocytes % (Manual) Seg Neutrophils # Man Abs Lymphs (Manual) 409 L Lymphocytes # (Manual) PT INR D-Dimer POC ABG pH 6.974 L POC ABG pCO2 22.0 L 83.4 H POC ABG pO2 28 L 122 H Sodium Potassium Chloride Carbon Dioxide BUN Creatinine Glucose POC Glucose Calcium AST ALT C-Reactive Protein Total Protein Albumin Triglycerides Ur Specific [place] Urine WBC (Auto) Urine Creatinine Urine Total Protein Lymph Enumerat CD4/CD8 0.05 L % CD3 Cells 45 L Absolute CD3 Count 185 L % CD4 Cells 2 L Absolute CD4 Count 10 L % CD8 Cells 43 H Absolute CD8 Count 167 L Absolute CD19 Count 79 L HIV DNA Qual (PCR) HIV-1 RNA PCR copies/ml HIV-1 RNA (PCR) log Miscellaneous Test Crossmatch 06/19/18 06/19/18 06/19/18 08:07 08:16 09:20 WBC RBC Hgb Hct MCV RDW Plt Count Seg Neuts % (Manual) Lymphocytes % (Manual) Seg Neutrophils # Man Abs Lymphs (Manual) Lymphocytes # (Manual) PT INR D-Dimer POC ABG pH 6.996 L POC ABG pCO2 82.4 H POC ABG pO2 Sodium Potassium Chloride Carbon Dioxide BUN Creatinine Glucose POC Glucose Calcium AST ALT C-Reactive Protein Total Protein Albumin Triglycerides Ur Specific [place] 1.060 H Urine WBC (Auto) 8.0 H Urine Creatinine Urine Total Protein Lymph Enumerat CD4/CD8 % CD3 Cells Absolute CD3 Count % CD4 Cells Absolute CD4 Count % CD8 Cells Absolute CD8 Count Absolute CD19 Count HIV DNA Qual (PCR) Detected H HIV-1 RNA PCR copies/ml HIV-1 RNA (PCR) log Miscellaneous Test Crossmatch 06/19/18 06/19/18 06/19/18 09:49 11:15 15:16 WBC RBC Hgb Hct MCV RDW Plt Count Seg Neuts % (Manual) Lymphocytes % (Manual) Seg Neutrophils # Man Abs Lymphs (Manual) Lymphocytes # (Manual) PT INR D-Dimer POC ABG pH 7.198 L 7.206 L POC ABG pCO2 POC ABG pO2 75 L Sodium Potassium Chloride Carbon Dioxide BUN Creatinine Glucose POC Glucose Calcium AST ALT C-Reactive Protein Total Protein Albumin Triglycerides Ur Specific [place] Urine WBC (Auto) Urine Creatinine Urine Total Protein Lymph Enumerat CD4/CD8 % CD3 Cells Absolute CD3 Count % CD4 Cells Absolute CD4 Count % CD8 Cells Absolute CD8 Count Absolute CD19 Count HIV DNA Qual (PCR) HIV-1 RNA PCR copies/ml 2311105 H HIV-1 RNA (PCR) log 6.11 H Miscellaneous Test Crossmatch 06/19/18 06/19/18 06/19/18 18:54 Unknown Unknown WBC 12.9 H RBC Hgb Hct MCV RDW Plt Count Seg Neuts % (Manual) Lymphocytes % (Manual) 5.0 L Seg Neutrophils # Man Abs Lymphs (Manual) Lymphocytes # (Manual) 0.6 L PT 15.9 H INR 1.19 H D-Dimer 8449.09 H POC ABG pH POC ABG pCO2 POC ABG pO2 Sodium Potassium Chloride Carbon Dioxide BUN Creatinine Glucose POC Glucose 196 H Calcium AST ALT C-Reactive Protein Total Protein Albumin Triglycerides Ur Specific [place] Urine WBC (Auto) Urine Creatinine Urine Total Protein Lymph Enumerat CD4/CD8 % CD3 Cells Absolute CD3 Count % CD4 Cells Absolute CD4 Count % CD8 Cells Absolute CD8 Count Absolute CD19 Count HIV DNA Qual (PCR) HIV-1 RNA PCR copies/ml HIV-1 RNA (PCR) log Miscellaneous Test Crossmatch 06/19/18 06/19/18 06/20/18 Unknown Unknown 04:33 WBC RBC Hgb Hct MCV RDW Plt Count Seg Neuts % (Manual) Lymphocytes % (Manual) Seg Neutrophils # Man Abs Lymphs (Manual) Lymphocytes # (Manual) PT INR D-Dimer POC ABG pH 7.249 L POC ABG pCO2 POC ABG pO2 118 H Sodium 129 L Potassium Chloride 90.7 L Carbon Dioxide 17 L BUN Creatinine 0.6 L Glucose 199 H POC Glucose Calcium 8.1 L AST 53 H ALT C-Reactive Protein Total Protein 6.0 L Albumin 2.8 L Triglycerides Ur Specific [place] Urine WBC (Auto) Urine Creatinine Urine Total Protein Lymph Enumerat CD4/CD8 % CD3 Cells Absolute CD3 Count % CD4 Cells Absolute CD4 Count % CD8 Cells Absolute CD8 Count Absolute CD19 Count HIV DNA Qual (PCR) HIV-1 RNA PCR copies/ml HIV-1 RNA (PCR) log Miscellaneous Test Crossmatch 06/20/18 06/20/18 06/20/18 08:13 08:13 12:59 WBC 11.8 H RBC 3.25 L Hgb 9.8 L D Hct 30.4 L D MCV RDW Plt Count Seg Neuts % (Manual) 99.0 H Lymphocytes % (Manual) 1.0 L Seg Neutrophils # Man 11.7 H Abs Lymphs (Manual) Lymphocytes # (Manual) 0.1 L PT INR D-Dimer POC ABG pH POC ABG pCO2 POC ABG pO2 Sodium Potassium Chloride Carbon Dioxide 19 L BUN Creatinine Glucose 223 H POC Glucose 174 H Calcium 6.6 L D AST 1240 H ALT 836 H C-Reactive Protein Total Protein 4.9 L Albumin 2.1 L Triglycerides Ur Specific [place] Urine WBC (Auto) Urine Creatinine Urine Total Protein Lymph Enumerat CD4/CD8 % CD3 Cells Absolute CD3 Count % CD4 Cells Absolute CD4 Count % CD8 Cells Absolute CD8 Count Absolute CD19 Count HIV DNA Qual (PCR) HIV-1 RNA PCR copies/ml HIV-1 RNA (PCR) log Miscellaneous Test Crossmatch 06/20/18 06/20/18 06/21/18 17:42 23:44 04:08 WBC RBC Hgb Hct MCV RDW Plt Count Seg Neuts % (Manual) Lymphocytes % (Manual) Seg Neutrophils # Man Abs Lymphs (Manual) Lymphocytes # (Manual) PT INR D-Dimer POC ABG pH 7.309 L POC ABG pCO2 POC ABG pO2 Sodium Potassium Chloride Carbon Dioxide BUN Creatinine Glucose POC Glucose 177 H 195 H Calcium AST ALT C-Reactive Protein Total Protein Albumin Triglycerides Ur Specific [place] Urine WBC (Auto) Urine Creatinine Urine Total Protein Lymph Enumerat CD4/CD8 % CD3 Cells Absolute CD3 Count % CD4 Cells Absolute CD4 Count % CD8 Cells Absolute CD8 Count Absolute CD19 Count HIV DNA Qual (PCR) HIV-1 RNA PCR copies/ml HIV-1 RNA (PCR) log Miscellaneous Test Crossmatch 06/21/18 06/21/18 06/21/18 04:19 04:19 05:27 WBC 13.8 H RBC 3.02 L Hgb 9.2 L Hct 28.0 L MCV RDW Plt Count Seg Neuts % (Manual) Lymphocytes % (Manual) Seg Neutrophils # Man Abs Lymphs (Manual) Lymphocytes # (Manual) PT INR D-Dimer POC ABG pH POC ABG pCO2 POC ABG pO2 Sodium 135 L Potassium Chloride Carbon Dioxide 21 L BUN Creatinine 0.7 L Glucose 161 H POC Glucose 187 H Calcium 7.2 L AST 390 H ALT 622 H C-Reactive Protein Total Protein 5.3 L Albumin 2.4 L Triglycerides Ur Specific [place] Urine WBC (Auto) Urine Creatinine Urine Total Protein Lymph Enumerat CD4/CD8 % CD3 Cells Absolute CD3 Count % CD4 Cells Absolute CD4 Count % CD8 Cells Absolute CD8 Count Absolute CD19 Count HIV DNA Qual (PCR) HIV-1 RNA PCR copies/ml HIV-1 RNA (PCR) log Miscellaneous Test Crossmatch 06/21/18 06/21/18 06/21/18 11:33 12:32 17:45 WBC RBC Hgb Hct MCV RDW Plt Count Seg Neuts % (Manual) Lymphocytes % (Manual) Seg Neutrophils # Man Abs Lymphs (Manual) Lymphocytes # (Manual) PT INR D-Dimer POC ABG pH POC ABG pCO2 POC ABG pO2 Sodium Potassium Chloride Carbon Dioxide BUN Creatinine Glucose POC Glucose 147 H 172 H Calcium AST ALT C-Reactive Protein Total Protein Albumin Triglycerides Ur Specific [place] Urine WBC (Auto) Urine Creatinine Urine Total Protein Lymph Enumerat CD4/CD8 % CD3 Cells Absolute CD3 Count % CD4 Cells Absolute CD4 Count % CD8 Cells Absolute CD8 Count Absolute CD19 Count HIV DNA Qual (PCR) HIV-1 RNA PCR copies/ml HIV-1 RNA (PCR) log Miscellaneous Test see below H Crossmatch 06/21/18 06/22/18 06/22/18 23:25 04:47 04:47 WBC 11.5 H RBC 2.93 L Hgb 9.0 L Hct 26.5 L MCV RDW Plt Count Seg Neuts % (Manual) Lymphocytes % (Manual) Seg Neutrophils # Man Abs Lymphs (Manual) Lymphocytes # (Manual) PT INR D-Dimer POC ABG pH POC ABG pCO2 POC ABG pO2 Sodium Potassium Chloride Carbon Dioxide BUN 22 H Creatinine Glucose 201 H POC Glucose 152 H Calcium 7.8 L AST 129 H ALT 416 H C-Reactive Protein Total Protein 5.3 L Albumin 2.4 L Triglycerides Ur Specific [place] Urine WBC (Auto) Urine Creatinine Urine Total Protein Lymph Enumerat CD4/CD8 % CD3 Cells Absolute CD3 Count % CD4 Cells Absolute CD4 Count % CD8 Cells Absolute CD8 Count Absolute CD19 Count HIV DNA Qual (PCR) HIV-1 RNA PCR copies/ml HIV-1 RNA (PCR) log Miscellaneous Test Crossmatch 06/22/18 06/22/18 06/22/18 05:23 11:43 17:45 WBC RBC Hgb Hct MCV RDW Plt Count Seg Neuts % (Manual) Lymphocytes % (Manual) Seg Neutrophils # Man Abs Lymphs (Manual) Lymphocytes # (Manual) PT INR D-Dimer POC ABG pH POC ABG pCO2 POC ABG pO2 Sodium Potassium Chloride Carbon Dioxide BUN Creatinine Glucose POC Glucose 170 H 175 H 176 H Calcium AST ALT C-Reactive Protein Total Protein Albumin Triglycerides Ur Specific [place] Urine WBC (Auto) Urine Creatinine Urine Total Protein Lymph Enumerat CD4/CD8 % CD3 Cells Absolute CD3 Count % CD4 Cells Absolute CD4 Count % CD8 Cells Absolute CD8 Count Absolute CD19 Count HIV DNA Qual (PCR) HIV-1 RNA PCR copies/ml HIV-1 RNA (PCR) log Miscellaneous Test Crossmatch 06/23/18 06/23/18 06/23/18 00:24 05:06 05:11 WBC 11.2 H RBC 2.78 L Hgb 8.6 L Hct 25.3 L MCV RDW Plt Count Seg Neuts % (Manual) Lymphocytes % (Manual) Seg Neutrophils # Man Abs Lymphs (Manual) Lymphocytes # (Manual) PT INR D-Dimer POC ABG pH POC ABG pCO2 POC ABG pO2 Sodium Potassium Chloride Carbon Dioxide BUN Creatinine Glucose POC Glucose 178 H 182 H Calcium AST ALT C-Reactive Protein Total Protein Albumin Triglycerides Ur Specific [place] Urine WBC (Auto) Urine Creatinine Urine Total Protein Lymph Enumerat CD4/CD8 % CD3 Cells Absolute CD3 Count % CD4 Cells Absolute CD4 Count % CD8 Cells Absolute CD8 Count Absolute CD19 Count HIV DNA Qual (PCR) HIV-1 RNA PCR copies/ml HIV-1 RNA (PCR) log Miscellaneous Test Crossmatch 06/23/18 06/23/18 06/23/18 05:11 05:51 12:21 WBC RBC Hgb Hct MCV RDW Plt Count Seg Neuts % (Manual) Lymphocytes % (Manual) Seg Neutrophils # Man Abs Lymphs (Manual) Lymphocytes # (Manual) PT INR D-Dimer POC ABG pH POC ABG pCO2 POC ABG pO2 69 L Sodium Potassium Chloride Carbon Dioxide BUN 34 H Creatinine 1.7 H D Glucose 191 H POC Glucose 181 H Calcium 7.5 L AST 63 H ALT 297 H C-Reactive Protein Total Protein 5.3 L Albumin 2.4 L Triglycerides Ur Specific [place] Urine WBC (Auto) Urine Creatinine Urine Total Protein Lymph Enumerat CD4/CD8 % CD3 Cells Absolute CD3 Count % CD4 Cells Absolute CD4 Count % CD8 Cells Absolute CD8 Count Absolute CD19 Count HIV DNA Qual (PCR) HIV-1 RNA PCR copies/ml HIV-1 RNA (PCR) log Miscellaneous Test Crossmatch 06/23/18 06/23/18 06/23/18 13:57 17:00 18:40 WBC RBC Hgb Hct MCV RDW Plt Count Seg Neuts % (Manual) Lymphocytes % (Manual) Seg Neutrophils # Man Abs Lymphs (Manual) Lymphocytes # (Manual) PT INR D-Dimer POC ABG pH POC ABG pCO2 POC ABG pO2 Sodium Potassium Chloride Carbon Dioxide BUN 38 H Creatinine 1.8 H Glucose POC Glucose 196 H Calcium AST ALT C-Reactive Protein 1.60 H Total Protein Albumin Triglycerides Ur Specific [place] Urine WBC (Auto) Urine Creatinine Urine Total Protein Lymph Enumerat CD4/CD8 % CD3 Cells Absolute CD3 Count % CD4 Cells Absolute CD4 Count % CD8 Cells Absolute CD8 Count Absolute CD19 Count HIV DNA Qual (PCR) HIV-1 RNA PCR copies/ml HIV-1 RNA (PCR) log Miscellaneous Test Crossmatch 06/23/18 06/23/18 06/24/18 21:16 23:22 04:12 WBC RBC 2.89 L Hgb 8.8 L Hct 26.9 L MCV RDW Plt Count Seg Neuts % (Manual) Lymphocytes % (Manual) Seg Neutrophils # Man Abs Lymphs (Manual) Lymphocytes # (Manual) PT INR D-Dimer POC ABG pH 7.311 L POC ABG pCO2 47.4 H POC ABG pO2 Sodium Potassium Chloride Carbon Dioxide BUN Creatinine Glucose POC Glucose 165 H Calcium AST ALT C-Reactive Protein Total Protein Albumin Triglycerides Ur Specific [place] Urine WBC (Auto) Urine Creatinine Urine Total Protein Lymph Enumerat CD4/CD8 % CD3 Cells Absolute CD3 Count % CD4 Cells Absolute CD4 Count % CD8 Cells Absolute CD8 Count Absolute CD19 Count HIV DNA Qual (PCR) HIV-1 RNA PCR copies/ml HIV-1 RNA (PCR) log Miscellaneous Test Crossmatch 06/24/18 06/24/18 06/24/18 04:12 04:46 05:24 WBC RBC Hgb Hct MCV RDW Plt Count Seg Neuts % (Manual) Lymphocytes % (Manual) Seg Neutrophils # Man Abs Lymphs (Manual) Lymphocytes # (Manual) PT INR D-Dimer POC ABG pH 7.250 L POC ABG pCO2 55.8 H POC ABG pO2 Sodium Potassium 5.4 H Chloride Carbon Dioxide BUN 44 H Creatinine 2.2 H Glucose 206 H POC Glucose 183 H Calcium 7.5 L AST ALT C-Reactive Protein Total Protein Albumin Triglycerides Ur Specific [place] Urine WBC (Auto) Urine Creatinine Urine Total Protein Lymph Enumerat CD4/CD8 % CD3 Cells Absolute CD3 Count % CD4 Cells Absolute CD4 Count % CD8 Cells Absolute CD8 Count Absolute CD19 Count HIV DNA Qual (PCR) HIV-1 RNA PCR copies/ml HIV-1 RNA (PCR) log Miscellaneous Test Crossmatch 06/24/18 06/24/18 06/24/18 11:14 16:40 17:16 WBC RBC Hgb Hct MCV RDW Plt Count Seg Neuts % (Manual) Lymphocytes % (Manual) Seg Neutrophils # Man Abs Lymphs (Manual) Lymphocytes # (Manual) PT INR D-Dimer POC ABG pH 7.067 L POC ABG pCO2 91.7 H POC ABG pO2 134 H Sodium Potassium Chloride Carbon Dioxide BUN Creatinine Glucose POC Glucose 151 H 195 H Calcium AST ALT C-Reactive Protein Total Protein Albumin Triglycerides Ur Specific [place] Urine WBC (Auto) Urine Creatinine Urine Total Protein Lymph Enumerat CD4/CD8 % CD3 Cells Absolute CD3 Count % CD4 Cells Absolute CD4 Count % CD8 Cells Absolute CD8 Count Absolute CD19 Count HIV DNA Qual (PCR) HIV-1 RNA PCR copies/ml HIV-1 RNA (PCR) log Miscellaneous Test Crossmatch 06/24/18 06/24/18 06/24/18 18:03 22:45 22:45 WBC RBC Hgb Hct MCV RDW Plt Count Seg Neuts % (Manual) Lymphocytes % (Manual) Seg Neutrophils # Man Abs Lymphs (Manual) Lymphocytes # (Manual) PT INR D-Dimer POC ABG pH 7.234 L POC ABG pCO2 59.9 H POC ABG pO2 121 H Sodium Potassium Chloride Carbon Dioxide BUN Creatinine Glucose POC Glucose Calcium AST ALT C-Reactive Protein Total Protein Albumin Triglycerides Ur Specific [place] Urine WBC (Auto) 9.0 H Urine Creatinine 47.2 H Urine Total Protein 25 H Lymph Enumerat CD4/CD8 % CD3 Cells Absolute CD3 Count % CD4 Cells Absolute CD4 Count % CD8 Cells Absolute CD8 Count Absolute CD19 Count HIV DNA Qual (PCR) HIV-1 RNA PCR copies/ml HIV-1 RNA (PCR) log Miscellaneous Test Crossmatch 06/24/18 06/24/18 06/25/18 Unknown 23:59 04:36 WBC RBC Hgb Hct MCV RDW Plt Count Seg Neuts % (Manual) Lymphocytes % (Manual) Seg Neutrophils # Man Abs Lymphs (Manual) Lymphocytes # (Manual) PT 15.6 H INR 1.17 H D-Dimer POC ABG pH 7.200 L POC ABG pCO2 65.3 H POC ABG pO2 Sodium Potassium Chloride Carbon Dioxide BUN Creatinine Glucose POC Glucose 233 H Calcium AST ALT C-Reactive Protein Total Protein Albumin Triglycerides Ur Specific [place] Urine WBC (Auto) Urine Creatinine Urine Total Protein Lymph Enumerat CD4/CD8 % CD3 Cells Absolute CD3 Count % CD4 Cells Absolute CD4 Count % CD8 Cells Absolute CD8 Count Absolute CD19 Count HIV DNA Qual (PCR) HIV-1 RNA PCR copies/ml HIV-1 RNA (PCR) log Miscellaneous Test Crossmatch 06/25/18 06/25/18 06/25/18 05:29 11:12 11:40 WBC RBC 2.67 L Hgb 8.5 L Hct 25.6 L MCV 96 H RDW 16.0 H Plt Count Seg Neuts % (Manual) Lymphocytes % (Manual) Seg Neutrophils # Man Abs Lymphs (Manual) Lymphocytes # (Manual) PT INR D-Dimer POC ABG pH POC ABG pCO2 POC ABG pO2 Sodium Potassium Chloride Carbon Dioxide BUN Creatinine Glucose POC Glucose 212 H 244 H Calcium AST ALT C-Reactive Protein Total Protein Albumin Triglycerides Ur Specific [place] Urine WBC (Auto) Urine Creatinine Urine Total Protein Lymph Enumerat CD4/CD8 % CD3 Cells Absolute CD3 Count % CD4 Cells Absolute CD4 Count % CD8 Cells Absolute CD8 Count Absolute CD19 Count HIV DNA Qual (PCR) HIV-1 RNA PCR copies/ml HIV-1 RNA (PCR) log Miscellaneous Test Crossmatch 06/25/18 06/25/18 06/25/18 11:40 17:18 18:08 WBC RBC Hgb Hct MCV RDW Plt Count Seg Neuts % (Manual) Lymphocytes % (Manual) Seg Neutrophils # Man Abs Lymphs (Manual) Lymphocytes # (Manual) PT INR D-Dimer POC ABG pH 7.206 L POC ABG pCO2 68.1 H POC ABG pO2 Sodium Potassium 5.8 H Chloride Carbon Dioxide BUN 48 H Creatinine 2.1 H Glucose 293 H POC Glucose 264 H Calcium 7.5 L AST ALT C-Reactive Protein Total Protein Albumin Triglycerides Ur Specific [place] Urine WBC (Auto) Urine Creatinine Urine Total Protein Lymph Enumerat CD4/CD8 % CD3 Cells Absolute CD3 Count % CD4 Cells Absolute CD4 Count % CD8 Cells Absolute CD8 Count Absolute CD19 Count HIV DNA Qual (PCR) HIV-1 RNA PCR copies/ml HIV-1 RNA (PCR) log Miscellaneous Test Crossmatch 06/25/18 06/25/18 06/26/18 21:20 23:59 05:10 WBC RBC Hgb Hct MCV RDW Plt Count Seg Neuts % (Manual) Lymphocytes % (Manual) Seg Neutrophils # Man Abs Lymphs (Manual) Lymphocytes # (Manual) PT INR D-Dimer POC ABG pH 7.220 L POC ABG pCO2 65.0 H POC ABG pO2 71 L Sodium Potassium Chloride Carbon Dioxide BUN Creatinine Glucose POC Glucose 231 H 259 H Calcium AST ALT C-Reactive Protein Total Protein Albumin Triglycerides Ur Specific [place] Urine WBC (Auto) Urine Creatinine Urine Total Protein Lymph Enumerat CD4/CD8 % CD3 Cells Absolute CD3 Count % CD4 Cells Absolute CD4 Count % CD8 Cells Absolute CD8 Count Absolute CD19 Count HIV DNA Qual (PCR) HIV-1 RNA PCR copies/ml HIV-1 RNA (PCR) log Miscellaneous Test Crossmatch 06/26/18 06/26/18 06/26/18 05:29 07:25 07:25 WBC 12.0 H RBC 2.69 L Hgb 8.2 L Hct 25.5 L MCV 95 H RDW 15.7 H Plt Count Seg Neuts % (Manual) Lymphocytes % (Manual) Seg Neutrophils # Man Abs Lymphs (Manual) Lymphocytes # (Manual) PT INR D-Dimer POC ABG pH 7.240 L POC ABG pCO2 67.6 H POC ABG pO2 106 H Sodium Potassium 5.2 H Chloride Carbon Dioxide BUN 58 H Creatinine 1.9 H Glucose 219 H POC Glucose Calcium 7.9 L AST ALT C-Reactive Protein Total Protein Albumin Triglycerides Ur Specific [place] Urine WBC (Auto) Urine Creatinine Urine Total Protein Lymph Enumerat CD4/CD8 % CD3 Cells Absolute CD3 Count % CD4 Cells Absolute CD4 Count % CD8 Cells Absolute CD8 Count Absolute CD19 Count HIV DNA Qual (PCR) HIV-1 RNA PCR copies/ml HIV-1 RNA (PCR) log Miscellaneous Test Crossmatch 06/26/18 06/26/18 06/26/18 07:25 12:49 17:42 WBC RBC Hgb Hct MCV RDW Plt Count Seg Neuts % (Manual) Lymphocytes % (Manual) Seg Neutrophils # Man Abs Lymphs (Manual) Lymphocytes # (Manual) PT INR D-Dimer POC ABG pH 7.178 L POC ABG pCO2 73.6 H POC ABG pO2 77 L Sodium Potassium Chloride Carbon Dioxide BUN Creatinine Glucose POC Glucose 276 H Calcium AST ALT C-Reactive Protein Total Protein Albumin Triglycerides 174 H Ur Specific [place] Urine WBC (Auto) Urine Creatinine Urine Total Protein Lymph Enumerat CD4/CD8 % CD3 Cells Absolute CD3 Count % CD4 Cells Absolute CD4 Count % CD8 Cells Absolute CD8 Count Absolute CD19 Count HIV DNA Qual (PCR) HIV-1 RNA PCR copies/ml HIV-1 RNA (PCR) log Miscellaneous Test Crossmatch 06/26/18 06/26/18 06/26/18 18:25 21:24 23:22 WBC RBC Hgb Hct MCV RDW Plt Count Seg Neuts % (Manual) Lymphocytes % (Manual) Seg Neutrophils # Man Abs Lymphs (Manual) Lymphocytes # (Manual) PT INR D-Dimer POC ABG pH 7.152 L POC ABG pCO2 80.6 H POC ABG pO2 Sodium Potassium Chloride Carbon Dioxide BUN Creatinine Glucose POC Glucose 304 H 282 H Calcium AST ALT C-Reactive Protein Total Protein Albumin Triglycerides Ur Specific [place] Urine WBC (Auto) Urine Creatinine Urine Total Protein Lymph Enumerat CD4/CD8 % CD3 Cells Absolute CD3 Count % CD4 Cells Absolute CD4 Count % CD8 Cells Absolute CD8 Count Absolute CD19 Count HIV DNA Qual (PCR) HIV-1 RNA PCR copies/ml HIV-1 RNA (PCR) log Miscellaneous Test Crossmatch 06/27/18 06/27/18 06/27/18 04:05 05:15 05:15 WBC RBC Hgb Hct MCV RDW Plt Count Seg Neuts % (Manual) Lymphocytes % (Manual) Seg Neutrophils # Man Abs Lymphs (Manual) Lymphocytes # (Manual) PT INR D-Dimer POC ABG pH 7.266 L POC ABG pCO2 62.8 H POC ABG pO2 Sodium Potassium 5.5 H Chloride Carbon Dioxide BUN 73 H Creatinine 2.1 H Glucose 211 H POC Glucose Calcium 7.7 L AST ALT C-Reactive Protein Total Protein Albumin Triglycerides Ur Specific [place] Urine WBC (Auto) Urine Creatinine Urine Total Protein Lymph Enumerat CD4/CD8 % CD3 Cells Absolute CD3 Count % CD4 Cells Absolute CD4 Count % CD8 Cells Absolute CD8 Count Absolute CD19 Count HIV DNA Qual (PCR) HIV-1 RNA PCR copies/ml HIV-1 RNA (PCR) log Miscellaneous Test Flexitest 1 H Crossmatch 06/27/18 06/27/18 06/27/18 05:15 05:52 13:10 WBC RBC 2.41 L Hgb 7.6 L Hct 22.4 L MCV RDW Plt Count Seg Neuts % (Manual) Lymphocytes % (Manual) Seg Neutrophils # Man Abs Lymphs (Manual) Lymphocytes # (Manual) PT INR D-Dimer POC ABG pH POC ABG pCO2 POC ABG pO2 Sodium Potassium Chloride Carbon Dioxide BUN Creatinine Glucose POC Glucose 198 H 238 H Calcium AST ALT C-Reactive Protein Total Protein Albumin Triglycerides Ur Specific [place] Urine WBC (Auto) Urine Creatinine Urine Total Protein Lymph Enumerat CD4/CD8 % CD3 Cells Absolute CD3 Count % CD4 Cells Absolute CD4 Count % CD8 Cells Absolute CD8 Count Absolute CD19 Count HIV DNA Qual (PCR) HIV-1 RNA PCR copies/ml HIV-1 RNA (PCR) log Miscellaneous Test Crossmatch 06/27/18 06/27/18 06/27/18 16:12 17:51 23:22 WBC RBC Hgb Hct MCV RDW Plt Count Seg Neuts % (Manual) Lymphocytes % (Manual) Seg Neutrophils # Man Abs Lymphs (Manual) Lymphocytes # (Manual) PT INR D-Dimer POC ABG pH POC ABG pCO2 POC ABG pO2 Sodium Potassium Chloride Carbon Dioxide BUN Creatinine Glucose POC Glucose 174 H 162 H 171 H Calcium AST ALT C-Reactive Protein Total Protein Albumin Triglycerides Ur Specific [place] Urine WBC (Auto) Urine Creatinine Urine Total Protein Lymph Enumerat CD4/CD8 % CD3 Cells Absolute CD3 Count % CD4 Cells Absolute CD4 Count % CD8 Cells Absolute CD8 Count Absolute CD19 Count HIV DNA Qual (PCR) HIV-1 RNA PCR copies/ml HIV-1 RNA (PCR) log Miscellaneous Test Crossmatch 06/28/18 06/28/18 06/28/18 04:36 04:54 05:10 WBC RBC Hgb Hct MCV RDW Plt Count Seg Neuts % (Manual) Lymphocytes % (Manual) Seg Neutrophils # Man Abs Lymphs (Manual) Lymphocytes # (Manual) PT INR D-Dimer POC ABG pH 7.257 L POC ABG pCO2 68.8 H POC ABG pO2 Sodium Potassium Chloride Carbon Dioxide BUN 93 H Creatinine 2.4 H Glucose 186 H POC Glucose 193 H Calcium 8.3 L AST ALT C-Reactive Protein Total Protein Albumin Triglycerides Ur Specific [place] Urine WBC (Auto) Urine Creatinine Urine Total Protein Lymph Enumerat CD4/CD8 % CD3 Cells Absolute CD3 Count % CD4 Cells Absolute CD4 Count % CD8 Cells Absolute CD8 Count Absolute CD19 Count HIV DNA Qual (PCR) HIV-1 RNA PCR copies/ml HIV-1 RNA (PCR) log Miscellaneous Test Crossmatch 06/28/18 06/28/18 06/28/18 12:15 17:43 18:26 WBC RBC Hgb Hct MCV RDW Plt Count Seg Neuts % (Manual) Lymphocytes % (Manual) Seg Neutrophils # Man Abs Lymphs (Manual) Lymphocytes # (Manual) PT INR D-Dimer POC ABG pH 7.123 L POC ABG pCO2 82.7 H POC ABG pO2 Sodium Potassium Chloride Carbon Dioxide BUN Creatinine Glucose POC Glucose 154 H 194 H Calcium AST ALT C-Reactive Protein Total Protein Albumin Triglycerides Ur Specific [place] Urine WBC (Auto) Urine Creatinine Urine Total Protein Lymph Enumerat CD4/CD8 % CD3 Cells Absolute CD3 Count % CD4 Cells Absolute CD4 Count % CD8 Cells Absolute CD8 Count Absolute CD19 Count HIV DNA Qual (PCR) HIV-1 RNA PCR copies/ml HIV-1 RNA (PCR) log Miscellaneous Test Crossmatch 06/28/18 06/29/18 06/29/18 22:08 00:12 04:38 WBC RBC Hgb Hct MCV RDW Plt Count Seg Neuts % (Manual) Lymphocytes % (Manual) Seg Neutrophils # Man Abs Lymphs (Manual) Lymphocytes # (Manual) PT INR D-Dimer POC ABG pH 7.172 L 7.158 L POC ABG pCO2 80.4 H 76.6 H POC ABG pO2 143 H Sodium Potassium Chloride Carbon Dioxide BUN Creatinine Glucose POC Glucose 202 H Calcium AST ALT C-Reactive Protein Total Protein Albumin Triglycerides Ur Specific [place] Urine WBC (Auto) Urine Creatinine Urine Total Protein Lymph Enumerat CD4/CD8 % CD3 Cells Absolute CD3 Count % CD4 Cells Absolute CD4 Count % CD8 Cells Absolute CD8 Count Absolute CD19 Count HIV DNA Qual (PCR) HIV-1 RNA PCR copies/ml HIV-1 RNA (PCR) log Miscellaneous Test Crossmatch 06/29/18 06/29/18 06/29/18 05:15 05:15 05:32 WBC 12.3 H RBC 1.93 L Hgb 5.9 L* Hct 18.2 L* MCV 95 H RDW Plt Count 127 L Seg Neuts % (Manual) Lymphocytes % (Manual) Seg Neutrophils # Man Abs Lymphs (Manual) Lymphocytes # (Manual) PT INR D-Dimer POC ABG pH POC ABG pCO2 POC ABG pO2 Sodium 136 L Potassium 5.9 H Chloride 94.3 L Carbon Dioxide BUN 139 H Creatinine 4.2 H D Glucose 157 H POC Glucose 150 H Calcium 8.2 L AST ALT C-Reactive Protein Total Protein Albumin Triglycerides Ur Specific [place] Urine WBC (Auto) Urine Creatinine Urine Total Protein Lymph Enumerat CD4/CD8 % CD3 Cells Absolute CD3 Count % CD4 Cells Absolute CD4 Count % CD8 Cells Absolute CD8 Count Absolute CD19 Count HIV DNA Qual (PCR) HIV-1 RNA PCR copies/ml HIV-1 RNA (PCR) log Miscellaneous Test Crossmatch 06/29/18 06/29/18 06/29/18 08:07 09:50 11:55 WBC RBC Hgb 6.0 L Hct 18.4 L* MCV RDW Plt Count Seg Neuts % (Manual) Lymphocytes % (Manual) Seg Neutrophils # Man Abs Lymphs (Manual) Lymphocytes # (Manual) PT INR D-Dimer POC ABG pH POC ABG pCO2 POC ABG pO2 Sodium Potassium Chloride Carbon Dioxide BUN Creatinine Glucose POC Glucose 236 H Calcium AST ALT C-Reactive Protein Total Protein Albumin Triglycerides Ur Specific [place] Urine WBC (Auto) Urine Creatinine Urine Total Protein Lymph Enumerat CD4/CD8 % CD3 Cells Absolute CD3 Count % CD4 Cells Absolute CD4 Count % CD8 Cells Absolute CD8 Count Absolute CD19 Count HIV DNA Qual (PCR) HIV-1 RNA PCR copies/ml HIV-1 RNA (PCR) log Miscellaneous Test Crossmatch See Detail 06/29/18 06/30/18 06/30/18 18:29 00:08 04:47 WBC RBC Hgb Hct MCV RDW Plt Count Seg Neuts % (Manual) Lymphocytes % (Manual) Seg Neutrophils # Man Abs Lymphs (Manual) Lymphocytes # (Manual) PT INR D-Dimer POC ABG pH 7.182 L POC ABG pCO2 67.7 H POC ABG pO2 Sodium Potassium Chloride Carbon Dioxide BUN Creatinine Glucose POC Glucose 171 H 159 H Calcium AST ALT C-Reactive Protein Total Protein Albumin Triglycerides Ur Specific [place] Urine WBC (Auto) Urine Creatinine Urine Total Protein Lymph Enumerat CD4/CD8 % CD3 Cells Absolute CD3 Count % CD4 Cells Absolute CD4 Count % CD8 Cells Absolute CD8 Count Absolute CD19 Count HIV DNA Qual (PCR) HIV-1 RNA PCR copies/ml HIV-1 RNA (PCR) log Miscellaneous Test Crossmatch 06/30/18 06/30/18 06/30/18 05:07 06:00 12:43 WBC 18.2 H RBC 2.43 L Hgb 7.4 L Hct 22.0 L MCV RDW 15.3 H Plt Count 111 L Seg Neuts % (Manual) Lymphocytes % (Manual) Seg Neutrophils # Man Abs Lymphs (Manual) Lymphocytes # (Manual) PT INR D-Dimer POC ABG pH POC ABG pCO2 POC ABG pO2 Sodium Potassium Chloride Carbon Dioxide BUN Creatinine Glucose POC Glucose 162 H 153 H Calcium AST ALT C-Reactive Protein Total Protein Albumin Triglycerides Ur Specific [place] Urine WBC (Auto) Urine Creatinine Urine Total Protein Lymph Enumerat CD4/CD8 % CD3 Cells Absolute CD3 Count % CD4 Cells Absolute CD4 Count % CD8 Cells Absolute CD8 Count Absolute CD19 Count HIV DNA Qual (PCR) HIV-1 RNA PCR copies/ml HIV-1 RNA (PCR) log Miscellaneous Test Crossmatch 06/30/18 06/30/18 07/01/18 18:07 Unknown 00:06 WBC RBC Hgb Hct MCV RDW Plt Count Seg Neuts % (Manual) Lymphocytes % (Manual) Seg Neutrophils # Man Abs Lymphs (Manual) Lymphocytes # (Manual) PT INR D-Dimer POC ABG pH POC ABG pCO2 POC ABG pO2 Sodium Potassium 5.9 H Chloride 95.5 L Carbon Dioxide BUN 164 H Creatinine 5.2 H Glucose 151 H POC Glucose 183 H 208 H Calcium 7.6 L AST ALT C-Reactive Protein Total Protein Albumin Triglycerides 223 H Ur Specific [place] Urine WBC (Auto) Urine Creatinine Urine Total Protein Lymph Enumerat CD4/CD8 % CD3 Cells Absolute CD3 Count % CD4 Cells Absolute CD4 Count % CD8 Cells Absolute CD8 Count Absolute CD19 Count HIV DNA Qual (PCR) HIV-1 RNA PCR copies/ml HIV-1 RNA (PCR) log Miscellaneous Test Crossmatch 07/01/18 07/01/18 07/01/18 04:47 05:43 06:00 WBC RBC Hgb Hct MCV RDW Plt Count Seg Neuts % (Manual) Lymphocytes % (Manual) Seg Neutrophils # Man Abs Lymphs (Manual) Lymphocytes # (Manual) PT INR D-Dimer POC ABG pH 7.060 L POC ABG pCO2 121.0 H POC ABG pO2 Sodium Potassium 5.8 H Chloride 94.1 L Carbon Dioxide BUN 144 H Creatinine 3.1 H Glucose 208 H POC Glucose 214 H Calcium 6.7 L AST ALT C-Reactive Protein Total Protein Albumin Triglycerides Ur Specific [place] Urine WBC (Auto) Urine Creatinine Urine Total Protein Lymph Enumerat CD4/CD8 % CD3 Cells Absolute CD3 Count % CD4 Cells Absolute CD4 Count % CD8 Cells Absolute CD8 Count Absolute CD19 Count HIV DNA Qual (PCR) HIV-1 RNA PCR copies/ml HIV-1 RNA (PCR) log Miscellaneous Test Crossmatch 07/01/18 07/01/18 07/01/18 06:00 06:52 10:00 WBC 17.9 H RBC 2.14 L Hgb 6.5 L 6.6 L Hct 20.0 L 20.5 L MCV RDW 15.9 H Plt Count 94 L Seg Neuts % (Manual) Lymphocytes % (Manual) Seg Neutrophils # Man Abs Lymphs (Manual) Lymphocytes # (Manual) PT INR D-Dimer 2387.14 H POC ABG pH POC ABG pCO2 POC ABG pO2 Sodium Potassium Chloride Carbon Dioxide BUN Creatinine Glucose POC Glucose Calcium AST ALT C-Reactive Protein Total Protein Albumin Triglycerides Ur Specific [place] Urine WBC (Auto) Urine Creatinine Urine Total Protein Lymph Enumerat CD4/CD8 % CD3 Cells Absolute CD3 Count % CD4 Cells Absolute CD4 Count % CD8 Cells Absolute CD8 Count Absolute CD19 Count HIV DNA Qual (PCR) HIV-1 RNA PCR copies/ml HIV-1 RNA (PCR) log Miscellaneous Test Crossmatch 07/01/18 07/01/18 07/01/18 11:11 11:41 18:38 WBC RBC Hgb Hct MCV RDW Plt Count Seg Neuts % (Manual) Lymphocytes % (Manual) Seg Neutrophils # Man Abs Lymphs (Manual) Lymphocytes # (Manual) PT INR D-Dimer POC ABG pH 7.151 L 7.168 L POC ABG pCO2 100.4 H 109.4 H POC ABG pO2 151 H 199 H Sodium Potassium Chloride Carbon Dioxide BUN Creatinine Glucose POC Glucose 213 H Calcium AST ALT C-Reactive Protein Total Protein Albumin Triglycerides Ur Specific [place] Urine WBC (Auto) Urine Creatinine Urine Total Protein Lymph Enumerat CD4/CD8 % CD3 Cells Absolute CD3 Count % CD4 Cells Absolute CD4 Count % CD8 Cells Absolute CD8 Count Absolute CD19 Count HIV DNA Qual (PCR) HIV-1 RNA PCR copies/ml HIV-1 RNA (PCR) log Miscellaneous Test Crossmatch 07/01/18 07/02/18 07/02/18 23:40 04:32 04:32 WBC 14.8 H RBC 2.68 L Hgb 8.1 L Hct 23.8 L MCV RDW Plt Count 81 L Seg Neuts % (Manual) Lymphocytes % (Manual) Seg Neutrophils # Man Abs Lymphs (Manual) Lymphocytes # (Manual) PT INR D-Dimer POC ABG pH POC ABG pCO2 POC ABG pO2 Sodium 151 H D Potassium 3.1 L D Chloride Carbon Dioxide 39 H D BUN 108 H Creatinine 1.8 H Glucose 44 L POC Glucose < 40 L Calcium 6.6 L AST ALT C-Reactive Protein Total Protein Albumin Triglycerides Ur Specific [place] Urine WBC (Auto) Urine Creatinine Urine Total Protein Lymph Enumerat CD4/CD8 % CD3 Cells Absolute CD3 Count % CD4 Cells Absolute CD4 Count % CD8 Cells Absolute CD8 Count Absolute CD19 Count HIV DNA Qual (PCR) HIV-1 RNA PCR copies/ml HIV-1 RNA (PCR) log Miscellaneous Test Crossmatch 07/02/18 07/02/18 07/02/18 05:00 05:12 11:54 WBC RBC Hgb Hct MCV RDW Plt Count Seg Neuts % (Manual) Lymphocytes % (Manual) Seg Neutrophils # Man Abs Lymphs (Manual) Lymphocytes # (Manual) PT INR D-Dimer POC ABG pH 7.319 L POC ABG pCO2 89.8 H POC ABG pO2 119 H Sodium Potassium Chloride Carbon Dioxide BUN Creatinine Glucose POC Glucose < 40 L < 40 L Calcium AST ALT C-Reactive Protein Total Protein Albumin Triglycerides Ur Specific [place] Urine WBC (Auto) Urine Creatinine Urine Total Protein Lymph Enumerat CD4/CD8 % CD3 Cells Absolute CD3 Count % CD4 Cells Absolute CD4 Count % CD8 Cells Absolute CD8 Count Absolute CD19 Count HIV DNA Qual (PCR) HIV-1 RNA PCR copies/ml HIV-1 RNA (PCR) log Miscellaneous Test Crossmatch 07/02/18 07/03/18 07/03/18 14:09 00:17 04:28 WBC RBC Hgb Hct MCV RDW Plt Count Seg Neuts % (Manual) Lymphocytes % (Manual) Seg Neutrophils # Man Abs Lymphs (Manual) Lymphocytes # (Manual) PT INR D-Dimer POC ABG pH 7.267 L POC ABG pCO2 93.3 H POC ABG pO2 69 L Sodium Potassium Chloride Carbon Dioxide BUN Creatinine Glucose POC Glucose 53 L 69 L Calcium AST ALT C-Reactive Protein Total Protein Albumin Triglycerides Ur Specific [place] Urine WBC (Auto) Urine Creatinine Urine Total Protein Lymph Enumerat CD4/CD8 % CD3 Cells Absolute CD3 Count % CD4 Cells Absolute CD4 Count % CD8 Cells Absolute CD8 Count Absolute CD19 Count HIV DNA Qual (PCR) HIV-1 RNA PCR copies/ml HIV-1 RNA (PCR) log Miscellaneous Test Crossmatch 07/03/18 07/03/18 07/03/18 05:00 05:00 05:16 WBC RBC 2.23 L Hgb 7.0 L Hct 20.3 L MCV RDW Plt Count 81 L Seg Neuts % (Manual) Lymphocytes % (Manual) Seg Neutrophils # Man Abs Lymphs (Manual) Lymphocytes # (Manual) PT INR D-Dimer POC ABG pH POC ABG pCO2 POC ABG pO2 Sodium 155 H Potassium 3.3 L Chloride Carbon Dioxide 40 H BUN 94 H Creatinine 1.7 H Glucose 115 H POC Glucose 113 H Calcium 6.9 L AST ALT C-Reactive Protein Total Protein Albumin Triglycerides Ur Specific [place] Urine WBC (Auto) Urine Creatinine Urine Total Protein Lymph Enumerat CD4/CD8 % CD3 Cells Absolute CD3 Count % CD4 Cells Absolute CD4 Count % CD8 Cells Absolute CD8 Count Absolute CD19 Count HIV DNA Qual (PCR) HIV-1 RNA PCR copies/ml HIV-1 RNA (PCR) log Miscellaneous Test Crossmatch 07/03/18 07/03/18 07/03/18 10:24 11:12 17:52 WBC RBC Hgb Hct MCV RDW Plt Count Seg Neuts % (Manual) Lymphocytes % (Manual) Seg Neutrophils # Man Abs Lymphs (Manual) Lymphocytes # (Manual) PT INR D-Dimer POC ABG pH POC ABG pCO2 POC ABG pO2 Sodium Potassium Chloride Carbon Dioxide BUN Creatinine Glucose POC Glucose 125 H 167 H Calcium AST ALT C-Reactive Protein Total Protein Albumin Triglycerides Ur Specific [place] Urine WBC (Auto) Urine Creatinine Urine Total Protein Lymph Enumerat CD4/CD8 % CD3 Cells Absolute CD3 Count % CD4 Cells Absolute CD4 Count % CD8 Cells Absolute CD8 Count Absolute CD19 Count HIV DNA Qual (PCR) HIV-1 RNA PCR copies/ml HIV-1 RNA (PCR) log Miscellaneous Test Crossmatch See Detail 07/03/18 07/03/18 07/04/18 19:15 23:43 03:57 WBC RBC Hgb 7.8 L Hct 23.8 L MCV RDW Plt Count Seg Neuts % (Manual) Lymphocytes % (Manual) Seg Neutrophils # Man Abs Lymphs (Manual) Lymphocytes # (Manual) PT INR D-Dimer POC ABG pH 7.229 L POC ABG pCO2 99.8 H POC ABG pO2 Sodium Potassium Chloride Carbon Dioxide BUN Creatinine Glucose POC Glucose 176 H Calcium AST ALT C-Reactive Protein Total Protein Albumin Triglycerides Ur Specific [place] Urine WBC (Auto) Urine Creatinine Urine Total Protein Lymph Enumerat CD4/CD8 % CD3 Cells Absolute CD3 Count % CD4 Cells Absolute CD4 Count % CD8 Cells Absolute CD8 Count Absolute CD19 Count HIV DNA Qual (PCR) HIV-1 RNA PCR copies/ml HIV-1 RNA (PCR) log Miscellaneous Test Crossmatch 07/04/18 07/04/18 07/04/18 06:06 12:42 17:49 WBC RBC Hgb Hct MCV RDW Plt Count Seg Neuts % (Manual) Lymphocytes % (Manual) Seg Neutrophils # Man Abs Lymphs (Manual) Lymphocytes # (Manual) PT INR D-Dimer POC ABG pH POC ABG pCO2 POC ABG pO2 Sodium Potassium Chloride Carbon Dioxide BUN Creatinine Glucose POC Glucose 168 H 130 H 169 H Calcium AST ALT C-Reactive Protein Total Protein Albumin Triglycerides Ur Specific [place] Urine WBC (Auto) Urine Creatinine Urine Total Protein Lymph Enumerat CD4/CD8 % CD3 Cells Absolute CD3 Count % CD4 Cells Absolute CD4 Count % CD8 Cells Absolute CD8 Count Absolute CD19 Count HIV DNA Qual (PCR) HIV-1 RNA PCR copies/ml HIV-1 RNA (PCR) log Miscellaneous Test Crossmatch 07/04/18 07/04/18 07/04/18 23:12 Unknown Unknown WBC 12.7 H RBC 2.57 L Hgb 7.7 L Hct 23.9 L MCV RDW 15.3 H Plt Count 68 L Seg Neuts % (Manual) Lymphocytes % (Manual) Seg Neutrophils # Man Abs Lymphs (Manual) Lymphocytes # (Manual) PT INR D-Dimer POC ABG pH POC ABG pCO2 POC ABG pO2 Sodium 154 H Potassium Chloride Carbon Dioxide 41 H* BUN 85 H Creatinine 1.7 H Glucose 130 H POC Glucose 162 H Calcium 7.6 L AST ALT C-Reactive Protein Total Protein Albumin Triglycerides 250 H Ur Specific [place] Urine WBC (Auto) Urine Creatinine Urine Total Protein Lymph Enumerat CD4/CD8 % CD3 Cells Absolute CD3 Count % CD4 Cells Absolute CD4 Count % CD8 Cells Absolute CD8 Count Absolute CD19 Count HIV DNA Qual (PCR) HIV-1 RNA PCR copies/ml HIV-1 RNA (PCR) log Miscellaneous Test Crossmatch 07/05/18 07/05/18 07/05/18 05:42 05:46 12:45 WBC RBC Hgb Hct MCV RDW Plt Count Seg Neuts % (Manual) Lymphocytes % (Manual) Seg Neutrophils # Man Abs Lymphs (Manual) Lymphocytes # (Manual) PT INR D-Dimer POC ABG pH 7.240 L POC ABG pCO2 97.9 H POC ABG pO2 71 L Sodium Potassium Chloride Carbon Dioxide BUN Creatinine Glucose POC Glucose 278 H 268 H Calcium AST ALT C-Reactive Protein Total Protein Albumin Triglycerides Ur Specific [place] Urine WBC (Auto) Urine Creatinine Urine Total Protein Lymph Enumerat CD4/CD8 % CD3 Cells Absolute CD3 Count % CD4 Cells Absolute CD4 Count % CD8 Cells Absolute CD8 Count Absolute CD19 Count HIV DNA Qual (PCR) HIV-1 RNA PCR copies/ml HIV-1 RNA (PCR) log Miscellaneous Test Crossmatch 07/05/18 07/05/18 07/05/18 16:22 17:43 17:54 WBC RBC Hgb Hct MCV RDW Plt Count Seg Neuts % (Manual) Lymphocytes % (Manual) Seg Neutrophils # Man Abs Lymphs (Manual) Lymphocytes # (Manual) PT INR D-Dimer POC ABG pH 7.094 L 7.112 L POC ABG pCO2 129.6 H 125.4 H POC ABG pO2 181 H 69 L Sodium Potassium Chloride Carbon Dioxide BUN Creatinine Glucose POC Glucose 221 H Calcium AST ALT C-Reactive Protein Total Protein Albumin Triglycerides Ur Specific [place] Urine WBC (Auto) Urine Creatinine Urine Total Protein Lymph Enumerat CD4/CD8 % CD3 Cells Absolute CD3 Count % CD4 Cells Absolute CD4 Count % CD8 Cells Absolute CD8 Count Absolute CD19 Count HIV DNA Qual (PCR) HIV-1 RNA PCR copies/ml HIV-1 RNA (PCR) log Miscellaneous Test Crossmatch 07/05/18 07/05/18 07/06/18 20:15 23:18 05:20 WBC RBC Hgb Hct MCV RDW Plt Count Seg Neuts % (Manual) Lymphocytes % (Manual) Seg Neutrophils # Man Abs Lymphs (Manual) Lymphocytes # (Manual) PT INR D-Dimer POC ABG pH 7.140 L 7.256 L POC ABG pCO2 121.0 H 97.8 H POC ABG pO2 113 H 137 H Sodium Potassium Chloride Carbon Dioxide BUN Creatinine Glucose POC Glucose 227 H Calcium AST ALT C-Reactive Protein Total Protein Albumin Triglycerides Ur Specific [place] Urine WBC (Auto) Urine Creatinine Urine Total Protein Lymph Enumerat CD4/CD8 % CD3 Cells Absolute CD3 Count % CD4 Cells Absolute CD4 Count % CD8 Cells Absolute CD8 Count Absolute CD19 Count HIV DNA Qual (PCR) HIV-1 RNA PCR copies/ml HIV-1 RNA (PCR) log Miscellaneous Test Crossmatch 07/06/18 07/06/18 07/06/18 06:04 06:36 06:36 WBC RBC 2.30 L Hgb 7.3 L Hct 22.3 L MCV 97 H RDW 15.9 H Plt Count 56 L Seg Neuts % (Manual) 97.0 H Lymphocytes % (Manual) 3.0 L Seg Neutrophils # Man 9.6 H Abs Lymphs (Manual) Lymphocytes # (Manual) 0.3 L PT INR D-Dimer POC ABG pH POC ABG pCO2 POC ABG pO2 Sodium 157 H Potassium Chloride 111.9 H Carbon Dioxide 41 H* BUN 52 H Creatinine Glucose 278 H POC Glucose 277 H Calcium 8.1 L AST ALT C-Reactive Protein Total Protein Albumin Triglycerides Ur Specific [place] Urine WBC (Auto) Urine Creatinine Urine Total Protein Lymph Enumerat CD4/CD8 % CD3 Cells Absolute CD3 Count % CD4 Cells Absolute CD4 Count % CD8 Cells Absolute CD8 Count Absolute CD19 Count HIV DNA Qual (PCR) HIV-1 RNA PCR copies/ml HIV-1 RNA (PCR) log Miscellaneous Test Crossmatch 07/06/18 12:13 WBC RBC Hgb Hct MCV RDW Plt Count Seg Neuts % (Manual) Lymphocytes % (Manual) Seg Neutrophils # Man Abs Lymphs (Manual) Lymphocytes # (Manual) PT INR D-Dimer POC ABG pH POC ABG pCO2 POC ABG pO2 Sodium Potassium Chloride Carbon Dioxide BUN Creatinine Glucose POC Glucose 279 H Calcium AST ALT C-Reactive Protein Total Protein Albumin Triglycerides Ur Specific [place] Urine WBC (Auto) Urine Creatinine Urine Total Protein Lymph Enumerat CD4/CD8 % CD3 Cells Absolute CD3 Count % CD4 Cells Absolute CD4 Count % CD8 Cells Absolute CD8 Count Absolute CD19 Count HIV DNA Qual (PCR) HIV-1 RNA PCR copies/ml HIV-1 RNA (PCR) log Miscellaneous Test Crossmatch Chest x-ray: image reviewed (peristent bilateral infiltrates) Allied health notes reviewed: nursing
[2018-07-06] MEDS: NEO-SYNEPHRINE NS PRN (14:02)
--- NOTE | 2018-07-06 15:04 | Progress Note ---
Assessment and Plan /ARDS with Acute respiratory failure with hypoxia requiring full mechanical ventilatory support - Likely due to severe sepsis and bilateral pneumonia - Continue to treat underlying pneumonia with antibiotics, frequent nebs, ventilator support - Critical care following /Sepsis with Septic shock, resolved - secondary to bilateral pneumonia, profound immunosuppression from underlying AIDS - ID on board, CD4 count equals 10 - Continue antibiotics, IV fluid - Patient currently off pressor /Exctensive bilateral pneumonia -Extensive bilateral ground glass opacities and pneumonia with severe hypoxia. - Cytology PJP stain negative but DFA showed rare PJP. - Lung cytology GMS stain showed septated fungal hyphae with acute angle branc tez and yeast forms - but fungal cx negative, negative AFB and negative Aspregillus Ag - Serum CMV DNA PCR 06/19/2018 13,166 - per ID this is probably reactivation in the setting of critical illness - completed 10 days of amphothericin, Per ID now on voriconazole, ganciclovir and mepron /HIV WITH AIDS defining disease, ID following CD4=10 / VL 1,300,000 copies Azithromycin weekly for MAC Px /Hypernatremia, continue IV fluid /Epixtasis, due to the low platelets and severe sepsis, resolved /JENNIFER secondary to Multifactorial causes - in setting of pre-renal injury, ATN secondary sepsis, contrast exposure, voriconazole, bactrim/antibiotic exposure. - Nephrology following, creatinine improving slowly /Severe metabolic acidosis, due to severe sepsis and worsening renal function - Continue to monitor BMP /Shock liver- from severe sepsis, Improving /Pulmonary hypertension, likely secondary to severe pneumonia - Critical care attending following /Hyperkalemia, resolved after meds, /Anemia due to acute blood loss from hematuria, now stable following transfusion /Gross hematuria, - Gross hematuria after muir catheter placed on06/30/18, now clearing,pink. Transfused 2 Units. Consulted Urology and Laisha Arroyo evaluated patient and recommends conservative management, since clearing H/H stable. Unstable to go for CT Abd. /DVT and GI prophylaxis /Poor prognosis, DO NOT RESUSCITATE CODE STATUS The high probability of a clinically significant, sudden or life threatening deterioration of the [Pulmonary] system(s) required my full and direct attention, intervention and personal management. The aggregate critical care time was [32] minutes. This time is in addition to time spent performing reported procedures but includes the following: [x] Data Review and interpretation [x] Patient assessment and monitoring of vital signs [x] Documentation [x] Medication orders and management Brief History Patient is 32 yo with hypertension presented with shortness of breath, cough. He was found to have bilateral infiltrates. He was diagnosed with acute respiratory failure due to bilateral pneumonia. He was started on iv Antibiotics, put on BIPAP. He became worse, was intubated. Labs show + HIV/AIDS, new diagnosis. Patient is followed by Pulmonology, ID Physician. Few days into admission, he developed JENNIFER due to ATN from sepsis, contrast exposure and medications. Muir catheter was placed and Cr improving. Patient then developed gross hematuria, which now resolved. Off presoor now, but not ready to wean off from VENT. Family decided for DNR. Poor prognosis. Hospitalist Physical GEN: Intubated, sedated, NAD HEENT: Normocephalic, atraumatic, Neck: supple, No JVD Lungs: + b/l rhonchi, no wheeze Heart:S1 and S2 regular, no murmurs, rubs or gallop, Abd:soft, non tender, non distended, normal bowel sounds Ext: Edema all ext, no clubbing or cyanosis Neuro: Intubated, sedated Skin: no rash Subjective Date of service: 07/06/18 Principal diagnosis: Acute Hypoxemic Resp Failure; AIDS / HIV positive; Severe Sepsis due to PNA Interval history: Patient seen and examined. Medical records and medication list reviewed. No acute event overnight noted by the RN. Continue to spike low grade fever off pressor now Patient remained intubated, on sedation Objective - Constitutional Vitals: Vital Signs - 12hr 07/06/18 07/06/18 07/06/18 03:16 03:20 03:21 Temperature Pulse Rate 109 H 102 H Pulse Rate [ 106 H Bilateral] Pulse Rate [ From Monitor] Respiratory Rate Respiratory 31 H Rate [Bilateral ] Respiratory Rate [ Generalized] Blood Pressure 131/72 131/72 O2 Sat by Pulse 97 98 Oximetry 07/06/18 07/06/18 07/06/18 03:30 03:35 03:45 Temperature Pulse Rate 104 H 110 H Pulse Rate [ 112 H Bilateral] Pulse Rate [ From Monitor] Respiratory Rate Respiratory 31 H Rate [Bilateral ] Respiratory Rate [ Generalized] Blood Pressure 141/81 128/59 O2 Sat by Pulse 97 97 Oximetry 07/06/18 07/06/18 07/06/18 04:00 04:16 04:30 Temperature Pulse Rate 110 H 124 H 107 H Pulse Rate [ Bilateral] Pulse Rate [ 87 From Monitor] Respiratory Rate Respiratory Rate [Bilateral ] Respiratory Rate [ Generalized] Blood Pressure 130/63 117/57 115/56 O2 Sat by Pulse 97 92 96 Oximetry 07/06/18 07/06/18 07/06/18 04:45 05:00 05:15 Temperature Pulse Rate 105 H 94 H 108 H Pulse Rate [ Bilateral] Pulse Rate [ From Monitor] Respiratory Rate Respiratory Rate [Bilateral ] Respiratory Rate [ Generalized] Blood Pressure 114/59 115/56 110/68 O2 Sat by Pulse 96 98 98 Oximetry 07/06/18 07/06/18 07/06/18 05:30 05:45 06:00 Temperature Pulse Rate 112 H 109 H 112 H Pulse Rate [ Bilateral] Pulse Rate [ From Monitor] Respiratory Rate Respiratory Rate [Bilateral ] Respiratory Rate [ Generalized] Blood Pressure 106/63 114/71 114/71 O2 Sat by Pulse 99 98 95 Oximetry 07/06/18 07/06/18 07/06/18 06:16 06:30 06:46 Temperature Pulse Rate 107 H 126 H 113 H Pulse Rate [ Bilateral] Pulse Rate [ From Monitor] Respiratory Rate Respiratory Rate [Bilateral ] Respiratory Rate [ Generalized] Blood Pressure 129/69 120/68 116/69 O2 Sat by Pulse 97 92 95 Oximetry 07/06/18 07/06/18 07/06/18 07:00 07:15 07:21 Temperature Pulse Rate 107 H 108 H 111 H Pulse Rate [ 111 H Bilateral] Pulse Rate [ From Monitor] Respiratory Rate Respiratory 32 H Rate [Bilateral ] Respiratory Rate [ Generalized] Blood Pressure 116/69 117/64 117/64 O2 Sat by Pulse 96 96 96 Oximetry 07/06/18 07/06/18 07/06/18 07:30 07:45 07:54 Temperature Pulse Rate 109 H 106 H Pulse Rate [ 108 H Bilateral] Pulse Rate [ From Monitor] Respiratory Rate Respiratory 34 H Rate [Bilateral ] Respiratory Rate [ Generalized] Blood Pressure 122/66 127/61 O2 Sat by Pulse 93 97 Oximetry 07/06/18 07/06/18 07/06/18 08:00 08:15 08:30 Temperature 100.3 F H Pulse Rate 85 114 H 111 H Pulse Rate [ Bilateral] Pulse Rate [ 85 From Monitor] Respiratory 32 H Rate Respiratory Rate [Bilateral ] Respiratory Rate [ Generalized] Blood Pressure 127/61 127/63 127/63 O2 Sat by Pulse 99 98 99 Oximetry 07/06/18 07/06/18 07/06/18 08:45 09:00 09:15 Temperature Pulse Rate 112 H 110 H 111 H Pulse Rate [ Bilateral] Pulse Rate [ From Monitor] Respiratory Rate Respiratory Rate [Bilateral ] Respiratory Rate [ Generalized] Blood Pressure 113/64 113/64 129/64 O2 Sat by Pulse 97 97 97 Oximetry 07/06/18 07/06/18 07/06/18 09:30 09:46 10:00 Temperature Pulse Rate 110 H 112 H 115 H Pulse Rate [ Bilateral] Pulse Rate [ From Monitor] Respiratory Rate Respiratory Rate [Bilateral ] Respiratory 33 H Rate [ Generalized] Blood Pressure 129/64 116/63 116/63 O2 Sat by Pulse 98 96 90 Oximetry 07/06/18 07/06/18 07/06/18 10:16 10:30 10:45 Temperature Pulse Rate 114 H 111 H 113 H Pulse Rate [ Bilateral] Pulse Rate [ From Monitor] Respiratory Rate Respiratory Rate [Bilateral ] Respiratory Rate [ Generalized] Blood Pressure 113/63 113/63 119/65 O2 Sat by Pulse 92 94 96 Oximetry 07/06/18 07/06/18 07/06/18 11:00 11:12 11:16 Temperature Pulse Rate 112 H 111 H 111 H Pulse Rate [ Bilateral] Pulse Rate [ From Monitor] Respiratory Rate Respiratory Rate [Bilateral ] Respiratory Rate [ Generalized] Blood Pressure 119/65 124/64 115/67 O2 Sat by Pulse 97 98 97 Oximetry 07/06/18 07/06/18 07/06/18 11:30 11:40 11:45 Temperature Pulse Rate 110 H 108 H Pulse Rate [ Bilateral] Pulse Rate [ 112 H From Monitor] Respiratory 33 H Rate Respiratory Rate [Bilateral ] Respiratory Rate [ Generalized] Blood Pressure 115/67 118/70 O2 Sat by Pulse 98 97 98 Oximetry 07/06/18 07/06/18 07/06/18 12:00 12:15 12:30 Temperature Pulse Rate 114 H 112 H 112 H Pulse Rate [ Bilateral] Pulse Rate [ From Monitor] Respiratory Rate Respiratory Rate [Bilateral ] Respiratory Rate [ Generalized] Blood Pressure 119/71 125/68 125/68 O2 Sat by Pulse 98 96 93 Oximetry 07/06/18 07/06/18 07/06/18 12:45 13:00 13:16 Temperature Pulse Rate 112 H 105 H 106 H Pulse Rate [ Bilateral] Pulse Rate [ From Monitor] Respiratory Rate Respiratory Rate [Bilateral ] Respiratory Rate [ Generalized] Blood Pressure 127/70 127/70 119/71 O2 Sat by Pulse 94 92 93 Oximetry 07/06/18 07/06/18 13:31 13:51 Temperature Pulse Rate Pulse Rate [ 103 H 112 H Bilateral] Pulse Rate [ From Monitor] Respiratory Rate Respiratory 32 H 30 H Rate [Bilateral ] Respiratory Rate [ Generalized] Blood Pressure O2 Sat by Pulse Oximetry - Labs CBC & Chem 7: 07/07/18 04:00 07/07/18 04:00 Labs: Abnormal lab results 07/05/18 07/05/18 07/05/18 Range/Units 12:45 16:22 17:43 RBC (3.65-5.03) M/mm3 Hgb (11.8-15.2) gm/dl Hct (35.5-45.6) % MCV (84-94) fl RDW (13.2-15.2) % Plt Count (140-440) K/mm3 Seg Neuts % (Manual) (40.0-70.0) % Lymphocytes % (Manual) (13.4-35.0) % Seg Neutrophils # Man (1.8-7.7) K/mm3 Lymphocytes # (Manual) (1.2-5.4) K/mm3 POC ABG pH 7.094 L 7.112 L (7.35-7.45) POC ABG pCO2 129.6 H 125.4 H (35-45) POC ABG pO2 181 H 69 L (80-105) Sodium (137-145) mmol/L Chloride (98-107) mmol/L Carbon Dioxide (22-30) mmol/L BUN (9-20) mg/dL Glucose (75-100) mg/dL POC Glucose 268 H (70-105) Calcium (8.4-10.2) mg/dL 07/05/18 07/05/18 07/05/18 Range/Units 17:54 20:15 23:18 RBC (3.65-5.03) M/mm3 Hgb (11.8-15.2) gm/dl Hct (35.5-45.6) % MCV (84-94) fl RDW (13.2-15.2) % Plt Count (140-440) K/mm3 Seg Neuts % (Manual) (40.0-70.0) % Lymphocytes % (Manual) (13.4-35.0) % Seg Neutrophils # Man (1.8-7.7) K/mm3 Lymphocytes # (Manual) (1.2-5.4) K/mm3 POC ABG pH 7.140 L (7.35-7.45) POC ABG pCO2 121.0 H (35-45) POC ABG pO2 113 H (80-105) Sodium (137-145) mmol/L Chloride (98-107) mmol/L Carbon Dioxide (22-30) mmol/L BUN (9-20) mg/dL Glucose (75-100) mg/dL POC Glucose 221 H 227 H (70-105) Calcium (8.4-10.2) mg/dL 07/06/18 07/06/18 07/06/18 Range/Units 05:20 06:04 06:36 RBC (3.65-5.03) M/mm3 Hgb (11.8-15.2) gm/dl Hct (35.5-45.6) % MCV (84-94) fl RDW (13.2-15.2) % Plt Count (140-440) K/mm3 Seg Neuts % (Manual) (40.0-70.0) % Lymphocytes % (Manual) (13.4-35.0) % Seg Neutrophils # Man (1.8-7.7) K/mm3 Lymphocytes # (Manual) (1.2-5.4) K/mm3 POC ABG pH 7.256 L (7.35-7.45) POC ABG pCO2 97.8 H (35-45) POC ABG pO2 137 H (80-105) Sodium 157 H (137-145) mmol/L Chloride 111.9 H (98-107) mmol/L Carbon Dioxide 41 H* (22-30) mmol/L BUN 52 H (9-20) mg/dL Glucose 278 H (75-100) mg/dL POC Glucose 277 H (70-105) Calcium 8.1 L (8.4-10.2) mg/dL 07/06/18 07/06/18 Range/Units 06:36 12:13 RBC 2.30 L (3.65-5.03) M/mm3 Hgb 7.3 L (11.8-15.2) gm/dl Hct 22.3 L (35.5-45.6) % MCV 97 H (84-94) fl RDW 15.9 H (13.2-15.2) % Plt Count 56 L (140-440) K/mm3 Seg Neuts % (Manual) 97.0 H (40.0-70.0) % Lymphocytes % (Manual) 3.0 L (13.4-35.0) % Seg Neutrophils # Man 9.6 H (1.8-7.7) K/mm3 Lymphocytes # (Manual) 0.3 L (1.2-5.4) K/mm3 POC ABG pH (7.35-7.45) POC ABG pCO2 (35-45) POC ABG pO2 (80-105) Sodium (137-145) mmol/L Chloride (98-107) mmol/L Carbon Dioxide (22-30) mmol/L BUN (9-20) mg/dL Glucose (75-100) mg/dL POC Glucose 279 H (70-105) Calcium (8.4-10.2) mg/dL
[2018-07-06] MEDS ORDERED: LANTUS SUB-Q SCH (22:00)
[2018-07-07] MEDS: DIPRIVAN 10 MG/ML 1,000 MG/100 ML BOTTLE IV SCH ×3 (01:35→16:25)
[2018-07-07] MEDS: DUONEB *Not for PRN Use IH SCH ×4 (02:30→20:46)
[2018-07-07] MEDS: fentaNYL DRIP Premix 2,000 MCG/100 ML BAG IV SCH ×4 (03:47→21:16)
[2018-07-07] MEDS: CYTOVENE 500 MG in NACL 0.9% 250ML 250 ML IV SCH ×2 (05:39→17:00)
[2018-07-07] MEDS: VFEND IV SCH ×2 (05:45→17:00)
[2018-07-07] MEDS: NACL 0.9% IV SCH ×2 (05:45→17:00)
[2018-07-07] MEDS: HumaLOG SUB-Q SCH ×4 (05:46→23:48)
[2018-07-07] MEDS: D5NS 0.2% 1,000 ML IV SCH (05:47)
[2018-07-07 06:13] LABS: Hematocrit 23.2 % (35.5-45.6); Hemoglobin 7.3 gm/dl (11.8-15.2); Mean Corpuscular HGB Conc 31 % (32-34); Mean Corpuscular Volume 97 fl (84-94); Red Cell Distribution Width 15.7 % (13.2-15.2)
[2018-07-07 06:14] LABS: Platelet Count 57 K/mm3 (140-440)
[2018-07-07 06:35] LABS: BUN/Creatinine Ratio 61; Blood Urea Nitrogen 43 mg/dL (9-20); Calcium 8.1 mg/dL (8.4-10.2); Hemolysis Index 9
[2018-07-07] MEDS: PREVACID SOLUTAB FEEDTUBE SCH (10:36)
[2018-07-07] MEDS: MEPRON PO SCH ×2 (10:36→22:03)
[2018-07-07] MEDS: SODIUM CHLORIDE FLUSH SYRINGE 10 ML IV SCH ×2 (10:36→22:03)
[2018-07-07] MEDS: SOLU-Medrol IV SCH (10:36)
[2018-07-07] MEDS: NEO-SYNEPHRINE NS PRN (11:00)
[2018-07-07 12:01] LABS: Anisocytosis 1+; Band Neutrophils # (Manual) 0.1 K/mm3; Basophils % (Manual) 0 % (0.0-1.8); Eosinophils % (Manual) 0 % (0.0-4.3); Total Cells Counted 100
[2018-07-07 12:02] LABS: Stomatocytes 1+
[2018-07-07 12:03] LABS: Platelet Estimate Consistent w Auto
--- NOTE | 2018-07-07 12:11 | Progress Note ---
Assessment and Plan /ARDS with Acute respiratory failure with hypoxia requiring full mechanical ventilatory support - Likely due to severe sepsis and bilateral pneumonia - Continue to treat underlying pneumonia with antibiotics, frequent nebs, ventilator support - Critical care following /Sepsis with Septic shock, resolved - secondary to bilateral pneumonia, profound immunosuppression from underlying AIDS - ID on board, CD4 count equals 10 - Continue antibiotics, IV fluid - Patient currently off pressor /Exctensive bilateral pneumonia -Extensive bilateral ground glass opacities and pneumonia with severe hypoxia. - Cytology PJP stain negative but DFA showed rare PJP. - Lung cytology GMS stain showed septated fungal hyphae with acute angle branc tez and yeast forms - but fungal cx negative, negative AFB and negative Aspregillus Ag - Serum CMV DNA PCR 06/19/2018 13,166 - per ID this is probably reactivation in the setting of critical illness - completed 10 days of amphothericin, Per ID now on voriconazole, ganciclovir and mepron /HIV WITH AIDS defining disease, ID following CD4=10 / VL 1,300,000 copies Azithromycin weekly for MAC Px /Hypernatremia, due to loosing free water continue IV fluid, having negative balance daily cont to monitor BMP /Hyperglycemia, could be steroid induced will lower steroid dose, check A1c increase insulin dose, cont SSI /Epixtasis, due to the low platelets and severe sepsis, resolved /JENNIFER secondary to Multifactorial causes - in setting of pre-renal injury, ATN secondary sepsis, contrast exposure, voriconazole, bactrim/antibiotic exposure. - Nephrology following, creatinine improving slowly /Severe metabolic acidosis, due to severe sepsis and worsening renal function - Continue to monitor BMP /Shock liver- from severe sepsis, Improving /Pulmonary hypertension, likely secondary to severe pneumonia - Critical care attending following /Hyperkalemia, resolved after meds, /Anemia due to acute blood loss from hematuria, required total 5 units of transfusion cont to monitor /Gross hematuria, - Gross hematuria after muir catheter placed on06/30/18, now clearing,pink. Transfused 2 Units. Consulted Urology and Laisha Arroyo evaluated patient and recommends conservative management. Unstable to go for CT Abd. /DVT and GI prophylaxis /Poor prognosis, DO NOT RESUSCITATE CODE STATUS The high probability of a clinically significant, sudden or life threatening deterioration of the [Pulmonary] system(s) required my full and direct attention, intervention and personal management. The aggregate critical care time was [32] minutes. This time is in addition to time spent performing repor zo procedures but includes the following: [x] Data Review and interpretation [x] Patient assessment and monitoring of vital signs [x] Documentation [x] Medication orders and management Brief History Patient is 32 yo with hypertension presented with shortness of breath, cough. He was found to have bilateral infiltrates. He was diagnosed with acute respiratory failure due to bilateral pneumonia. He was started on iv Antibiotics, put on BIPAP. He became worse, was intubated. Labs show + HIV/AIDS, new diagnosis. Patient is followed by Pulmonology, ID Physician. Few days into admission, he developed JENNIFER due to ATN from sepsis, contrast exposure and medications. Muir catheter was placed and Cr improving. Patient then developed gross hematuria, which now resolved. Off presoor now, but not ready to wean off from VENT. Family decided for DNR. Poor prognosis. Hospitalist Physical GEN: Intubated, sedated, NAD HEENT: Normocephalic, atraumatic, Neck: supple, No JVD Lungs: + b/l rhonchi, no wheeze Heart:S1 and S2 regular, no murmurs, rubs or gallop, Abd:soft, non tender, non distended, normal bowel sounds Ext: Edema all ext, no clubbing or cyanosis Neuro: Intubated, sedated Skin: no rash Subjective Date of service: 07/07/18 Principal diagnosis: Acute Hypoxemic Resp Failure; AIDS / HIV positive; Severe Sepsis due to PNA Interval history: Patient seen and examined. Medical records and medication list reviewed. No acute event overnight noted by the RN. Patient remained intubated, on sedation Objective - Constitutional Vitals: Vital Signs - 12hr 07/07/18 07/07/18 07/07/18 00:30 00:54 01:00 Temperature Pulse Rate 102 H 108 H 102 H Pulse Rate [ Bilateral] Respiratory Rate [Bilateral ] Blood Pressure 117/78 117/78 131/80 O2 Sat by Pulse 96 94 95 Oximetry 07/07/18 07/07/18 07/07/18 01:30 02:00 02:30 Temperature Pulse Rate 103 H 100 H 107 H Pulse Rate [ 110 H Bilateral] Respiratory 34 H Rate [Bilateral ] Blood Pressure 132/81 134/80 143/82 O2 Sat by Pulse 96 97 95 Oximetry 07/07/18 07/07/18 07/07/18 02:40 03:00 03:30 Temperature Pulse Rate 103 H 107 H Pulse Rate [ 108 H Bilateral] Respiratory 32 H Rate [Bilateral ] Blood Pressure 140/81 148/75 O2 Sat by Pulse 97 97 Oximetry 07/07/18 07/07/18 07/07/18 04:00 04:30 05:00 Temperature Pulse Rate 100 H 109 H 103 H Pulse Rate [ Bilateral] Respiratory Rate [Bilateral ] Blood Pressure 148/75 127/79 139/71 O2 Sat by Pulse 97 96 94 Oximetry 07/07/18 07/07/18 07/07/18 05:02 05:30 05:57 Temperature 98.8 F Pulse Rate 101 H 94 H Pulse Rate [ Bilateral] Respiratory Rate [Bilateral ] Blood Pressure 138/78 135/71 O2 Sat by Pulse 96 95 Oximetry 07/07/18 07/07/18 07/07/18 06:00 06:30 07:00 Temperature Pulse Rate 99 H 103 H 108 H Pulse Rate [ Bilateral] Respiratory Rate [Bilateral ] Blood Pressure 138/75 140/79 132/71 O2 Sat by Pulse 96 97 95 Oximetry 07/07/18 07/07/18 07/07/18 07:30 08:00 08:24 Temperature 98.6 F Pulse Rate 98 H 107 H 100 H Pulse Rate [ Bilateral] Respiratory Rate [Bilateral ] Blood Pressure 133/72 132/77 132/77 O2 Sat by Pulse 91 97 95 Oximetry 07/07/18 07/07/18 07/07/18 08:30 08:45 08:50 Temperature Pulse Rate 105 H Pulse Rate [ 110 H 112 H Bilateral] Respiratory 31 H 31 H Rate [Bilateral ] Blood Pressure 133/77 O2 Sat by Pulse 96 Oximetry 07/07/18 07/07/18 07/07/18 09:00 09:30 10:00 Temperature Pulse Rate 92 H 98 H 101 H Pulse Rate [ Bilateral] Respiratory Rate [Bilateral ] Blood Pressure 127/72 127/72 139/80 O2 Sat by Pulse 92 95 96 Oximetry 07/07/18 07/07/18 07/07/18 10:30 10:57 11:00 Temperature Pulse Rate 107 H 102 H 126 H Pulse Rate [ Bilateral] Respiratory Rate [Bilateral ] Blood Pressure 146/83 146/83 O2 Sat by Pulse 95 94 95 Oximetry 07/07/18 07/07/18 11:30 12:00 Temperature Pulse Rate 99 H 88 Pulse Rate [ Bilateral] Respiratory Rate [Bilateral ] Blood Pressure 146/83 126/66 O2 Sat by Pulse 96 96 Oximetry - Labs CBC & Chem 7: 07/08/18 05:00 07/08/18 05:00 Labs: Abnormal lab results 07/06/18 07/06/18 07/06/18 Range/Units 12:13 17:57 23:18 WBC (4.5-11.0) K/mm3 RBC (3.65-5.03) M/mm3 Hgb (11.8-15.2) gm/dl Hct (35.5-45.6) % MCV (84-94) fl MCHC (32-34) % RDW (13.2-15.2) % Plt Count (140-440) K/mm3 Seg Neuts % (Manual) (40.0-70.0) % Lymphocytes % (Manual) (13.4-35.0) % Nucleated RBC % (0.0-0.9) % Seg Neutrophils # Man (1.8-7.7) K/mm3 Lymphocytes # (Manual) (1.2-5.4) K/mm3 POC ABG pH (7.35-7.45) POC ABG pCO2 (35-45) POC ABG pO2 (80-105) Sodium (137-145) mmol/L Chloride (98-107) mmol/L Carbon Dioxide (22-30) mmol/L BUN (9-20) mg/dL Creatinine (0.8-1.5) mg/dL Glucose (75-100) mg/dL POC Glucose 279 H 265 H 231 H (70-105) Calcium (8.4-10.2) mg/dL 07/07/18 07/07/18 07/07/18 Range/Units 04:00 04:00 05:02 WBC 12.1 H (4.5-11.0) K/mm3 RBC 2.40 L (3.65-5.03) M/mm3 Hgb 7.3 L (11.8-15.2) gm/dl Hct 23.2 L (35.5-45.6) % MCV 97 H (84-94) fl MCHC 31 L (32-34) % RDW 15.7 H (13.2-15.2) % Plt Count 57 L (140-440) K/mm3 Seg Neuts % (Manual) 95.0 H (40.0-70.0) % Lymphocytes % (Manual) 2.0 L (13.4-35.0) % Nucleated RBC % 2.0 H (0.0-0.9) % Seg Neutrophils # Man 11.5 H (1.8-7.7) K/mm3 Lymphocytes # (Manual) 0.2 L (1.2-5.4) K/mm3 POC ABG pH 7.295 L (7.35-7.45) POC ABG pCO2 91.5 H (35-45) POC ABG pO2 73 L (80-105) Sodium 154 H (137-145) mmol/L Chloride 108.1 H (98-107) mmol/L Carbon Dioxide 42 H* (22-30) mmol/L BUN 43 H (9-20) mg/dL Creatinine 0.7 L (0.8-1.5) mg/dL Glucose 260 H (75-100) mg/dL POC Glucose (70-105) Calcium 8.1 L (8.4-10.2) mg/dL 07/07/18 Range/Units 05:40 WBC (4.5-11.0) K/mm3 RBC (3.65-5.03) M/mm3 Hgb (11.8-15.2) gm/dl Hct (35.5-45.6) % MCV (84-94) fl MCHC (32-34) % RDW (13.2-15.2) % Plt Count (140-440) K/mm3 Seg Neuts % (Manual) (40.0-70.0) % Lymphocytes % (Manual) (13.4-35.0) % Nucleated RBC % (0.0-0.9) % Seg Neutrophils # Man (1.8-7.7) K/mm3 Lymphocytes # (Manual) (1.2-5.4) K/mm3 POC ABG pH (7.35-7.45) POC ABG pCO2 (35-45) POC ABG pO2 (80-105) Sodium (137-145) mmol/L Chloride (98-107) mmol/L Carbon Dioxide (22-30) mmol/L BUN (9-20) mg/dL Creatinine (0.8-1.5) mg/dL Glucose (75-100) mg/dL POC Glucose 292 H (70-105) Calcium (8.4-10.2) mg/dL
--- NOTE | 2018-07-07 12:59 | Progress Note ---
Assessment and Plan - Patient Problems (1) Acute kidney failure with tubular necrosis Current Visit: Yes Status: Acute Plan to address problem: Multifactorial in setting of pre-renal injury, ATN secondary sepsis, contrast exposure, voriconazole, bactrim/antibiotic exposure. Will monitor, continue current supportive care. Need to adjust dose antimicro bials for his decreased renal clearance. Avoid nephrotoxins as much as possible in this critically ill patient with worsening renal injury. Renal function stable at this time. Continue to monitor closely. (2) Acute respiratory failure with hypoxia Current Visit: Yes Status: Acute Plan to address problem: Management per ICU team. (3) Respiratory acidosis Current Visit: Yes Status: Acute Plan to address problem: With compensatory metabolic alkalosis. Vent adjustments per ICU/pulmonary recommendations. (4) Bilateral pneumonia Current Visit: Yes Status: Acute Qualifiers: Pneumonia type: due to unspecified organism Lung location: unspecified part of lung Qualified Code(s): J18.9 - Pneumonia, unspecified organism Plan to address problem: Antibiotics per ID recommendations. S/p BAL with findings noted. (5) AIDS (acquired immune deficiency syndrome) Current Visit: Yes Status: Acute Plan to address problem: Management per ID. (6) Anemia Current Visit: Yes Status: Acute Plan to address problem: Transfuse to maintain Hgb >7.0. Subjective Date of service: 07/07/18 Principal diagnosis: Acute Hypoxemic Resp Failure; AIDS / HIV positive; Severe Sepsis due to PNA Interval history: Remains intubated. Renal function noted and he is in recovery phase of ATN, with renal function returning to his baseline. Objective - Vital Signs Vital signs: Vital Signs - 12hr 07/07/18 07/07/18 07/07/18 01:00 01:30 02:00 Temperature Pulse Rate 102 H 103 H 100 H Pulse Rate [ Bilateral] Respiratory Rate [Bilateral ] Blood Pressure 131/80 132/81 134/80 O2 Sat by Pulse 95 96 97 Oximetry 07/07/18 07/07/18 07/07/18 02:30 02:40 03:00 Temperature Pulse Rate 107 H 103 H Pulse Rate [ 110 H 108 H Bilateral] Respiratory 34 H 32 H Rate [Bilateral ] Blood Pressure 143/82 140/81 O2 Sat by Pulse 95 97 Oximetry 07/07/18 07/07/18 07/07/18 03:30 04:00 04:30 Temperature Pulse Rate 107 H 100 H 109 H Pulse Rate [ Bilateral] Respiratory Rate [Bilateral ] Blood Pressure 148/75 148/75 127/79 O2 Sat by Pulse 97 97 96 Oximetry 07/07/18 07/07/18 07/07/18 05:00 05:02 05:30 Temperature Pulse Rate 103 H 101 H 94 H Pulse Rate [ Bilateral] Respiratory Rate [Bilateral ] Blood Pressure 139/71 138/78 135/71 O2 Sat by Pulse 94 96 95 Oximetry 07/07/18 07/07/18 07/07/18 05:57 06:00 06:30 Temperature 98.8 F Pulse Rate 99 H 103 H Pulse Rate [ Bilateral] Respiratory Rate [Bilateral ] Blood Pressure 138/75 140/79 O2 Sat by Pulse 96 97 Oximetry 07/07/18 07/07/18 07/07/18 07:00 07:30 08:00 Temperature 98.6 F Pulse Rate 108 H 98 H 107 H Pulse Rate [ Bilateral] Respiratory Rate [Bilateral ] Blood Pressure 132/71 133/72 132/77 O2 Sat by Pulse 95 91 97 Oximetry 07/07/18 07/07/18 07/07/18 08:24 08:30 08:45 Temperature Pulse Rate 100 H 105 H Pulse Rate [ 110 H Bilateral] Respiratory 31 H Rate [Bilateral ] Blood Pressure 132/77 133/77 O2 Sat by Pulse 95 96 Oximetry 07/07/18 07/07/18 07/07/18 08:50 09:00 09:30 Temperature Pulse Rate 92 H 98 H Pulse Rate [ 112 H Bilateral] Respiratory 31 H Rate [Bilateral ] Blood Pressure 127/72 127/72 O2 Sat by Pulse 92 95 Oximetry 07/07/18 07/07/18 07/07/18 10:00 10:30 10:57 Temperature Pulse Rate 101 H 107 H 102 H Pulse Rate [ Bilateral] Respiratory Rate [Bilateral ] Blood Pressure 139/80 146/83 O2 Sat by Pulse 96 95 94 Oximetry 07/07/18 07/07/18 07/07/18 11:00 11:30 12:00 Temperature Pulse Rate 126 H 99 H 88 Pulse Rate [ Bilateral] Respiratory Rate [Bilateral ] Blood Pressure 146/83 146/83 126/66 O2 Sat by Pulse 95 96 96 Oximetry - General Appearance General appearance: chronically ill, intubated EENT: ATNC Neck: no JVD, supple Respiratory: Present: Clear to Ascultation Cardiology: regular Gastrointestinal: normal Integumentary: warm and dry Neurologic: other (not following commands, unresponsive, remains significantly lethargic, somnolent ) Musculoskeletal: other (+edema ) - Lab 07/07/18 04:00 07/07/18 04:00 Most recent lab results Calcium 8.1 mg/dL (8.4-10.2) L 07/07/18 04:00 Urine Creatinine 47.2 mg/dL (0.1-20.0) H 06/24/18 22:45 Urine Sodium 40 mmol/L 06/24/18 22:45 Urine Total Protein 25 mg/dL (5-11.8) H 06/24/18 22:45 - Imaging Chest x-ray: report reviewed - Allied health notes Allied health notes reviewed: nursing Medications & Allergies - Medications Allergies/Adverse Reactions: Allergies No Known Allergies Allergy (Verified 06/19/18 06:10) Home Medications: Home Medications Medication Instructions Recorded Confirmed Last Taken Type ALBUTEROL Inhaler (OR & NICU) 2 puff IH QID PRN 06/19/18 06/19/18 Unknown History [Proair] Pantoprazole [Protonix] 40 mg PO QDAY 06/19/18 06/19/18 Unknown History levoFLOXacin [Levaquin TAB] 500 mg PO QDAY 06/19/18 06/19/18 Unknown History Active Medications: Generic Name Dose Route Start Last Admin Trade Name Freq PRN Reason Stop Dose Admin Acetaminophen 650 mg 06/19/18 06:30 07/06/18 21:53 Tylenol PO 650 mg Q4H PRN Administration Pain MILD(1-3)/Fever >100.5/[place] Albuterol/Ipratropium 1 ampul 06/26/18 14:00 07/07/18 08:45 Duoneb *Not For Prn Use* IH 1 ampul Q6HRT [facility] Administration Lipase/Protease/Amylase 1 each 07/03/18 14:31 Pancremeseret Arroyo 10,500 Unit FEEDTUBE PRN PRN For Clogged Feeding Tube Atovaquone 750 mg 07/03/18 22:00 07/07/18 10:36 Mepron PO 750 mg BID [facility] Administration Azithromycin 1,200 mg 06/25/18 11:00 07/02/18 10:42 Zithromax PO 1,200 mg Mo [facility] Administration Dextrose 50 ml 07/02/18 15:00 D50w (25gm) Syringe IV PRN PRN Hypoglycemia Fentanyl 50 mcg 06/19/18 06:00 06/30/18 21:56 Sublimaze IV 50 mcg Q10MIN PRN Administration ANALGESIA Hydrophilic Ointment 1 applic 06/19/18 06:00 Vaseline Lip Therapy TP Q2HR PRN Dry Lips Fentanyl Citrate 2,000 mcg in 100 mls @ 3.86 mls/hr 06/19/18 06:00 07/07/18 10:35 Fentanyl Drip Premix IV 4 mcg/kg/hr TITR [facility] 15.441 mls/hr Administration Protocol 1 MCG/KG/HR Norepinephrine 4 mg in 250 mls @ 7.5 mls/hr 06/19/18 15:00 07/06/18 02:10 Levophed Drip 4 Mg/Ns 250 Ml IV 0 mcg/min TITR PE[facility] 0 mls/hr Titration Protocol 2 MCG/MIN Propofol 1,000 mg in 100 mls @ 2.601 mls/hr 06/24/18 15:00 07/07/18 10:34 Diprivan 10 Mg/Ml IV 25 mcg/kg/min TITR [facility] 13.005 mls/hr Administration Protocol 5 MCG/KG/MIN Dextrose 500 mls @ 5 mls/hr 06/25/18 08:56 06/28/18 11:07 D5w IV 5 mls/hr PRN PRN Administration FLUSH BEFORE AND AFTER AMPHO B Vasopressin 20 unit/ Sodium 101 mls @ 9.09 mls/hr 06/29/18 23:00 07/03/18 22:23 Chloride IV 0 units/min TITR [facility] 0 mls/hr Titration Protocol 0.03 UNITS/MIN Ganciclovir Sodium 500 mg/ 250 mls @ 100 mls/hr 07/05/18 06:00 07/07/18 05:39 Sodium Chloride IV 100 mls/hr Q12HR@0600,1800 [facility] Administration Voriconazole 400 mg/ Sodium 100 mls @ 50 mls/hr 07/05/18 06:00 07/07/18 05:45 Chloride IV 50 mls/hr Q12HR@0600,1800 [facility] Administration Dextrose/Sodium Chloride 1,000 mls @ 50 mls/hr 07/06/18 08:00 07/07/18 05:47 D5ns 0.2% IV 50 mls/hr DIRECT [facility] Administration Insulin Glargine 8 units 07/07/18 12:11 Lantus SUB-Q QHS [facility] Insulin Human Lispro 0 unit 06/20/18 13:00 07/07/18 05:46 Humalog SUB-Q 6 unit Q6HR [facility] Administration Protocol Lansoprazole 30 mg 07/03/18 11:00 07/07/18 10:36 Prevacid Solutab FEEDTUBE 30 mg QDAY [facility] Administration Methylprednisolone Sodium Succinate 40 mg 07/08/18 10:00 Solu-Medrol IV Q24HR [facility] Multi-Ingred Cream/Lotion/Oil/Oint 1 applic 06/19/18 06:00 Artificial Tears Ophth Oint OU Q4HR PRN Dry Eye(s) Ondansetron HCl 4 mg 06/19/18 06:30 06/30/18 21:55 Zofran IV 4 mg Q8H PRN Administration Nausea And Vomiting Phenylephrine HCl 2 spray 06/24/18 06:07 07/07/18 11:00 Thompson-Synephrine NS 2 spray Q4H PRN Administration Congestion Simple Syrup 15 ml 07/03/18 14:31 Simple Syrup FEEDTUBE PRN PRN Hypoglycemia Simple Syrup 30 ml 07/03/18 14:31 Simple Syrup FEEDTUBE PRN PRN Hypoglycemia Sodium Bicarbonate 325 mg 07/03/18 15:14 Sodium Bicarbonate FEEDTUBE PRN PRN For Clogged Feeding Tube Sodium Chloride 10 ml 06/19/18 10:00 07/07/18 10:36 Sodium Chloride Flush Syringe 10 Ml IV 10 ml BID [place] Administration Sodium Chloride 10 ml 06/19/18 06:30 Sodium Chloride Flush Syringe 10 Ml IV PRN PRN LINE FLUSH
--- NOTE | 2018-07-07 15:56 | Progress Note ---
Assessment and Plan ARDS Acute Hypoxemic Respiratory Failure on MVS AIDS / HIV positive Severe Sepsis due to Pneumonia LLext DVT Hyponatremia Severe metabolic acidosis Shock liver - continue current ventilators settings (acidosis improved and acceptable) - continue to accept higher PIP's as severe hypercapnic acidosis otherwise - continue to target TV 4-6 ml/kg IBW as goal - continue to wean supplemental oxygen to keep O2 sats > 89% - continue permissive hypercapnia strategies - continue anti-infectives per ID recs - 2D ECHO with normal EF - Seroquel stopped - continue to titrate sedatives for RASS -2 while on ARDS ventilation - continue anti-infective's per ID recommendations - trend CRP and lactate levels as necessary to aid clinical decision making - continue bronchodilators with pulmonary hygiene per RT - continue hyperventilation acutely to compensate for metabolic acidosis - VAP bundle addressed - daily SAT's - Daily SBT assessment - GI & VTE prophylaxis - enteral nutrition as tolerated - continue accuchecks q6h with glycemic control per SSI for target BG 140-180 mg/dL - continue other care per attending / other rn lactation consultant's .... re-evaluate in am & prn .... aunt visiting and care plan discussed at length PROGNOSIS TRULY GUARDED CODE STATUS: FULL CODE The high probability of a clinically significant, sudden or life-threatening deterioration of the [cardiac, neurology] system(s) required my full and direct attention, intervention and personal management. The aggregate critical care ti me was [35] minutes without overlap. Time includes spent on; [x] Data Review and interpretation [x] Patient assessment and monitoring of vital signs [x] Documentation [x] Medication orders and management Subjective Date of service: 07/07/18 Principal diagnosis: Acute Hypoxemic Resp Failure; AIDS / HIV positive; Severe Sepsis due to PNA Interval history: Patient is seen today for: Acute Hypoxemic Respiratory Failure on MVS; AIDS / HIV positive; Severe Sepsis due to Pneumonia; Hyponatremia; Severe metabolic acidosis Seen and examined at bedside; 24hour events reviewed; nursing and respiratory care staff consulted; no adverse overnight events reported to me; remains on MVS; remains with ARDS; no gross bleeding; no emesis or overt aspiration; no seizures; AMS is persistent Objective Vital Signs - 12hr 07/07/18 07/07/18 07/07/18 04:00 04:30 05:00 Temperature Pulse Rate 100 H 109 H 103 H Pulse Rate [ Apical] Pulse Rate [ Bilateral] Respiratory Rate [Bilateral ] Blood Pressure 148/75 127/79 139/71 O2 Sat by Pulse 97 96 94 Oximetry 07/07/18 07/07/18 07/07/18 05:02 05:30 05:57 Temperature 98.8 F Pulse Rate 101 H 94 H Pulse Rate [ Apical] Pulse Rate [ Bilateral] Respiratory Rate [Bilateral ] Blood Pressure 138/78 135/71 O2 Sat by Pulse 96 95 Oximetry 07/07/18 07/07/18 07/07/18 06:00 06:30 07:00 Temperature Pulse Rate 99 H 103 H 108 H Pulse Rate [ Apical] Pulse Rate [ Bilateral] Respiratory Rate [Bilateral ] Blood Pressure 138/75 140/79 132/71 O2 Sat by Pulse 96 97 95 Oximetry 07/07/18 07/07/18 07/07/18 07:30 08:00 08:24 Temperature 98.6 F Pulse Rate 98 H 107 H 100 H Pulse Rate [ Apical] Pulse Rate [ Bilateral] Respiratory Rate [Bilateral ] Blood Pressure 133/72 132/77 132/77 O2 Sat by Pulse 91 97 95 Oximetry 07/07/18 07/07/18 07/07/18 08:30 08:45 08:50 Temperature Pulse Rate 105 H Pulse Rate [ Apical] Pulse Rate [ 110 H 112 H Bilateral] Respiratory 31 H 31 H Rate [Bilateral ] Blood Pressure 133/77 O2 Sat by Pulse 96 Oximetry 07/07/18 07/07/18 07/07/18 09:00 09:30 10:00 Temperature Pulse Rate 92 H 98 H 101 H Pulse Rate [ Apical] Pulse Rate [ Bilateral] Respiratory Rate [Bilateral ] Blood Pressure 127/72 127/72 139/80 O2 Sat by Pulse 92 95 96 Oximetry 07/07/18 07/07/18 07/07/18 10:30 10:57 11:00 Temperature Pulse Rate 107 H 102 H 126 H Pulse Rate [ Apical] Pulse Rate [ Bilateral] Respiratory Rate [Bilateral ] Blood Pressure 146/83 146/83 O2 Sat by Pulse 95 94 95 Oximetry 07/07/18 07/07/18 07/07/18 11:30 12:00 12:30 Temperature 98.4 F Pulse Rate 99 H 98 H 99 H Pulse Rate [ 94 H Apical] Pulse Rate [ Bilateral] Respiratory Rate [Bilateral ] Blood Pressure 146/83 126/66 125/75 O2 Sat by Pulse 96 96 97 Oximetry 07/07/18 07/07/18 07/07/18 13:00 13:30 14:00 Temperature Pulse Rate 96 H 83 87 Pulse Rate [ Apical] Pulse Rate [ Bilateral] Respiratory Rate [Bilateral ] Blood Pressure 101/56 121/59 121/59 O2 Sat by Pulse 95 98 93 Oximetry 07/07/18 07/07/18 07/07/18 14:19 14:28 14:30 Temperature Pulse Rate 89 Pulse Rate [ Apical] Pulse Rate [ 90 94 H Bilateral] Respiratory 32 H 32 H Rate [Bilateral ] Blood Pressure 133/74 O2 Sat by Pulse 94 Oximetry 07/07/18 07/07/18 15:00 15:30 Temperature Pulse Rate 95 H 90 Pulse Rate [ Apical] Pulse Rate [ Bilateral] Respiratory Rate [Bilateral ] Blood Pressure 137/68 O2 Sat by Pulse 93 94 Oximetry Constitutional: appears uncomfortable, other (young HM normocephalic and atraumatic with moderately increased respiratory effort at rest) Eyes: non-icteric ENT: oropharynx moist, other (ETT 23 cm SATISH) Neck: supple, no lymphadenopathy, no JVD, other (no thyromegaly) Effort: mildly labored Ascultation: Bilateral: diminished breath sounds, rhonchi Percussion: Bilateral: not dull Cardiovascular: regular rate and rhythm Gastrointestinal: normoactive bowel sounds, soft, non-tender, non-distended Integumentary: rash Extremities: no cyanosis, pink and warm, pulses normal, no ischemia or petechiae, edema (trace) Neurologic: non-focal exam (grossly), pupils equal and round, motor strength normal and, unable to assess Psychiatric: other (unable to assess) CBC and BMP: 07/08/18 05:00 07/08/18 05:00 ABG, PT/INR, D-dimer: ABG POC ABG pH 7.295 (7.35-7.45) L 07/07/18 05:02 POC ABG pCO2 91.5 (35-45) H 07/07/18 05:02 POC ABG pO2 73 (80-105) L 07/07/18 05:02 POC ABG HCO3 44.5 07/07/18 05:02 POC ABG Total CO2 47 07/07/18 05:02 POC ABG O2 Sat 91 07/07/18 05:02 PT/INR, D-dimer PT 14.3 Sec. (12.2-14.9) 07/01/18 09:11 INR 1.05 (0.87-1.13) 07/01/18 09:11 D-Dimer 2387.14 ng/mlDDU (0-234) H 07/01/18 10:00 Abnormal lab findings: Abnormal Labs 06/19/18 06/19/18 06/19/18 03:31 07:11 07:42 WBC RBC Hgb Hct MCV MCHC RDW Plt Count Seg Neuts % (Manual) Lymphocytes % (Manual) Nucleated RBC % Seg Neutrophils # Man Abs Lymphs (Manual) 409 L Lymphocytes # (Manual) PT INR D-Dimer POC ABG pH 6.974 L POC ABG pCO2 22.0 L 83.4 H POC ABG pO2 28 L 122 H Sodium Potassium Chloride Carbon Dioxide BUN Creatinine Glucose POC Glucose Hemoglobin A1c Calcium AST ALT C-Reactive Protein Total Protein Albumin Triglycerides Ur Specific [place] Urine WBC (Auto) Urine Creatinine Urine Total Protein Lymph Enumerat CD4/CD8 0.05 L % CD3 Cells 45 L Absolute CD3 Count 185 L % CD4 Cells 2 L Absolute CD4 Count 10 L % CD8 Cells 43 H Absolute CD8 Count 167 L Absolute CD19 Count 79 L HIV DNA Qual (PCR) HIV-1 RNA PCR copies/ml HIV-1 RNA (PCR) log Miscellaneous Test Crossmatch 06/19/18 06/19/18 06/19/18 08:07 08:16 09:20 WBC RBC Hgb Hct MCV MCHC RDW Plt Count Seg Neuts % (Manual) Lymphocytes % (Manual) Nucleated RBC % Seg Neutrophils # Man Abs Lymphs (Manual) Lymphocytes # (Manual) PT INR D-Dimer POC ABG pH 6.996 L POC ABG pCO2 82.4 H POC ABG pO2 Sodium Potassium Chloride Carbon Dioxide BUN Creatinine Glucose POC Glucose Hemoglobin A1c Calcium AST ALT C-Reactive Protein Total Protein Albumin Triglycerides Ur Specific [place] 1.060 H Urine WBC (Auto) 8.0 H Urine Creatinine Urine Total Protein Lymph Enumerat CD4/CD8 % CD3 Cells Absolute CD3 Count % CD4 Cells Absolute CD4 Count % CD8 Cells Absolute CD8 Count Absolute CD19 Count HIV DNA Qual (PCR) Detected H HIV-1 RNA PCR copies/ml HIV-1 RNA (PCR) log Miscellaneous Test Crossmatch 06/19/18 06/19/18 06/19/18 09:49 11:15 15:16 WBC RBC Hgb Hct MCV MCHC RDW Plt Count Seg Neuts % (Manual) Lymphocytes % (Manual) Nucleated RBC % Seg Neutrophils # Man Abs Lymphs (Manual) Lymphocytes # (Manual) PT INR D-Dimer POC ABG pH 7.198 L 7.206 L POC ABG pCO2 POC ABG pO2 75 L Sodium Potassium Chloride Carbon Dioxide BUN Creatinine Glucose POC Glucose Hemoglobin A1c Calcium AST ALT C-Reactive Protein Total Protein Albumin Triglycerides Ur Specific [place] Urine WBC (Auto) Urine Creatinine Urine Total Protein Lymph Enumerat CD4/CD8 % CD3 Cells Absolute CD3 Count % CD4 Cells Absolute CD4 Count % CD8 Cells Absolute CD8 Count Absolute CD19 Count HIV DNA Qual (PCR) HIV-1 RNA PCR copies/ml 0355108 H HIV-1 RNA (PCR) log 6.11 H Miscellaneous Test Crossmatch 06/19/18 06/19/18 06/19/18 18:54 Unknown Unknown WBC 12.9 H RBC Hgb Hct MCV MCHC RDW Plt Count Seg Neuts % (Manual) Lymphocytes % (Manual) 5.0 L Nucleated RBC % Seg Neutrophils # Man Abs Lymphs (Manual) Lymphocytes # (Manual) 0.6 L PT 15.9 H INR 1.19 H D-Dimer 8449.09 H POC ABG pH POC ABG pCO2 POC ABG pO2 Sodium Potassium Chloride Carbon Dioxide BUN Creatinine Glucose POC Glucose 196 H Hemoglobin A1c Calcium AST ALT C-Reactive Protein Total Protein Albumin Triglycerides Ur Specific [place] Urine WBC (Auto) Urine Creatinine Urine Total Protein Lymph Enumerat CD4/CD8 % CD3 Cells Absolute CD3 Count % CD4 Cells Absolute CD4 Count % CD8 Cells Absolute CD8 Count Absolute CD19 Count HIV DNA Qual (PCR) HIV-1 RNA PCR copies/ml HIV-1 RNA (PCR) log Miscellaneous Test Crossmatch 06/19/18 06/19/18 06/20/18 Unknown Unknown 04:33 WBC RBC Hgb Hct MCV MCHC RDW Plt Count Seg Neuts % (Manual) Lymphocytes % (Manual) Nucleated RBC % Seg Neutrophils # Man Abs Lymphs (Manual) Lymphocytes # (Manual) PT INR D-Dimer POC ABG pH 7.249 L POC ABG pCO2 POC ABG pO2 118 H Sodium 129 L Potassium Chloride 90.7 L Carbon Dioxide 17 L BUN Creatinine 0.6 L Glucose 199 H POC Glucose Hemoglobin A1c Calcium 8.1 L AST 53 H ALT C-Reactive Protein Total Protein 6.0 L Albumin 2.8 L Triglycerides Ur Specific [place] Urine WBC (Auto) Urine Creatinine Urine Total Protein Lymph Enumerat CD4/CD8 % CD3 Cells Absolute CD3 Count % CD4 Cells Absolute CD4 Count % CD8 Cells Absolute CD8 Count Absolute CD19 Count HIV DNA Qual (PCR) HIV-1 RNA PCR copies/ml HIV-1 RNA (PCR) log Miscellaneous Test Crossmatch 06/20/18 06/20/18 06/20/18 08:13 08:13 12:59 WBC 11.8 H RBC 3.25 L Hgb 9.8 L D Hct 30.4 L D MCV MCHC RDW Plt Count Seg Neuts % (Manual) 99.0 H Lymphocytes % (Manual) 1.0 L Nucleated RBC % Seg Neutrophils # Man 11.7 H Abs Lymphs (Manual) Lymphocytes # (Manual) 0.1 L PT INR D-Dimer POC ABG pH POC ABG pCO2 POC ABG pO2 Sodium Potassium Chloride Carbon Dioxide 19 L BUN Creatinine Glucose 223 H POC Glucose 174 H Hemoglobin A1c Calcium 6.6 L D AST 1240 H ALT 836 H C-Reactive Protein Total Protein 4.9 L Albumin 2.1 L Triglycerides Ur Specific [place] Urine WBC (Auto) Urine Creatinine Urine Total Protein Lymph Enumerat CD4/CD8 % CD3 Cells Absolute CD3 Count % CD4 Cells Absolute CD4 Count % CD8 Cells Absolute CD8 Count Absolute CD19 Count HIV DNA Qual (PCR) HIV-1 RNA PCR copies/ml HIV-1 RNA (PCR) log Miscellaneous Test Crossmatch 06/20/18 06/20/18 06/21/18 17:42 23:44 04:08 WBC RBC Hgb Hct MCV MCHC RDW Plt Count Seg Neuts % (Manual) Lymphocytes % (Manual) Nucleated RBC % Seg Neutrophils # Man Abs Lymphs (Manual) Lymphocytes # (Manual) PT INR D-Dimer POC ABG pH 7.309 L POC ABG pCO2 POC ABG pO2 Sodium Potassium Chloride Carbon Dioxide BUN Creatinine Glucose POC Glucose 177 H 195 H Hemoglobin A1c Calcium AST ALT C-Reactive Protein Total Protein Albumin Triglycerides Ur Specific [place] Urine WBC (Auto) Urine Creatinine Urine Total Protein Lymph Enumerat CD4/CD8 % CD3 Cells Absolute CD3 Count % CD4 Cells Absolute CD4 Count % CD8 Cells Absolute CD8 Count Absolute CD19 Count HIV DNA Qual (PCR) HIV-1 RNA PCR copies/ml HIV-1 RNA (PCR) log Miscellaneous Test Crossmatch 06/21/18 06/21/18 06/21/18 04:19 04:19 05:27 WBC 13.8 H RBC 3.02 L Hgb 9.2 L Hct 28.0 L MCV MCHC RDW Plt Count Seg Neuts % (Manual) Lymphocytes % (Manual) Nucleated RBC % Seg Neutrophils # Man Abs Lymphs (Manual) Lymphocytes # (Manual) PT INR D-Dimer POC ABG pH POC ABG pCO2 POC ABG pO2 Sodium 135 L Potassium Chloride Carbon Dioxide 21 L BUN Creatinine 0.7 L Glucose 161 H POC Glucose 187 H Hemoglobin A1c Calcium 7.2 L AST 390 H ALT 622 H C-Reactive Protein Total Protein 5.3 L Albumin 2.4 L Triglycerides Ur Specific [place] Urine WBC (Auto) Urine Creatinine Urine Total Protein Lymph Enumerat CD4/CD8 % CD3 Cells Absolute CD3 Count % CD4 Cells Absolute CD4 Count % CD8 Cells Absolute CD8 Count Absolute CD19 Count HIV DNA Qual (PCR) HIV-1 RNA PCR copies/ml HIV-1 RNA (PCR) log Miscellaneous Test Crossmatch 06/21/18 06/21/18 06/21/18 11:33 12:32 17:45 WBC RBC Hgb Hct MCV MCHC RDW Plt Count Seg Neuts % (Manual) Lymphocytes % (Manual) Nucleated RBC % Seg Neutrophils # Man Abs Lymphs (Manual) Lymphocytes # (Manual) PT INR D-Dimer POC ABG pH POC ABG pCO2 POC ABG pO2 Sodium Potassium Chloride Carbon Dioxide BUN Creatinine Glucose POC Glucose 147 H 172 H Hemoglobin A1c Calcium AST ALT C-Reactive Protein Total Protein Albumin Triglycerides Ur Specific [place] Urine WBC (Auto) Urine Creatinine Urine Total Protein Lymph Enumerat CD4/CD8 % CD3 Cells Absolute CD3 Count % CD4 Cells Absolute CD4 Count % CD8 Cells Absolute CD8 Count Absolute CD19 Count HIV DNA Qual (PCR) HIV-1 RNA PCR copies/ml HIV-1 RNA (PCR) log Miscellaneous Test see below H Crossmatch 06/21/18 06/22/18 06/22/18 23:25 04:47 04:47 WBC 11.5 H RBC 2.93 L Hgb 9.0 L Hct 26.5 L MCV MCHC RDW Plt Count Seg Neuts % (Manual) Lymphocytes % (Manual) Nucleated RBC % Seg Neutrophils # Man Abs Lymphs (Manual) Lymphocytes # (Manual) PT INR D-Dimer POC ABG pH POC ABG pCO2 POC ABG pO2 Sodium Potassium Chloride Carbon Dioxide BUN 22 H Creatinine Glucose 201 H POC Glucose 152 H Hemoglobin A1c Calcium 7.8 L AST 129 H ALT 416 H C-Reactive Protein Total Protein 5.3 L Albumin 2.4 L Triglycerides Ur Specific [place] Urine WBC (Auto) Urine Creatinine Urine Total Protein Lymph Enumerat CD4/CD8 % CD3 Cells Absolute CD3 Count % CD4 Cells Absolute CD4 Count % CD8 Cells Absolute CD8 Count Absolute CD19 Count HIV DNA Qual (PCR) HIV-1 RNA PCR copies/ml HIV-1 RNA (PCR) log Miscellaneous Test Crossmatch 06/22/18 06/22/18 06/22/18 05:23 11:43 17:45 WBC RBC Hgb Hct MCV MCHC RDW Plt Count Seg Neuts % (Manual) Lymphocytes % (Manual) Nucleated RBC % Seg Neutrophils # Man Abs Lymphs (Manual) Lymphocytes # (Manual) PT INR D-Dimer POC ABG pH POC ABG pCO2 POC ABG pO2 Sodium Potassium Chloride Carbon Dioxide BUN Creatinine Glucose POC Glucose 170 H 175 H 176 H Hemoglobin A1c Calcium AST ALT C-Reactive Protein Total Protein Albumin Triglycerides Ur Specific [place] Urine WBC (Auto) Urine Creatinine Urine Total Protein Lymph Enumerat CD4/CD8 % CD3 Cells Absolute CD3 Count % CD4 Cells Absolute CD4 Count % CD8 Cells Absolute CD8 Count Absolute CD19 Count HIV DNA Qual (PCR) HIV-1 RNA PCR copies/ml HIV-1 RNA (PCR) log Miscellaneous Test Crossmatch 06/23/18 06/23/18 06/23/18 00:24 05:06 05:11 WBC 11.2 H RBC 2.78 L Hgb 8.6 L Hct 25.3 L MCV MCHC RDW Plt Count Seg Neuts % (Manual) Lymphocytes % (Manual) Nucleated RBC % Seg Neutrophils # Man Abs Lymphs (Manual) Lymphocytes # (Manual) PT INR D-Dimer POC ABG pH POC ABG pCO2 POC ABG pO2 Sodium Potassium Chloride Carbon Dioxide BUN Creatinine Glucose POC Glucose 178 H 182 H Hemoglobin A1c Calcium AST ALT C-Reactive Protein Total Protein Albumin Triglycerides Ur Specific [place] Urine WBC (Auto) Urine Creatinine Urine Total Protein Lymph Enumerat CD4/CD8 % CD3 Cells Absolute CD3 Count % CD4 Cells Absolute CD4 Count % CD8 Cells Absolute CD8 Count Absolute CD19 Count HIV DNA Qual (PCR) HIV-1 RNA PCR copies/ml HIV-1 RNA (PCR) log Miscellaneous Test Crossmatch 06/23/18 06/23/18 06/23/18 05:11 05:51 12:21 WBC RBC Hgb Hct MCV MCHC RDW Plt Count Seg Neuts % (Manual) Lymphocytes % (Manual) Nucleated RBC % Seg Neutrophils # Man Abs Lymphs (Manual) Lymphocytes # (Manual) PT INR D-Dimer POC ABG pH POC ABG pCO2 POC ABG pO2 69 L Sodium Potassium Chloride Carbon Dioxide BUN 34 H Creatinine 1.7 H D Glucose 191 H POC Glucose 181 H Hemoglobin A1c Calcium 7.5 L AST 63 H ALT 297 H C-Reactive Protein Total Protein 5.3 L Albumin 2.4 L Triglycerides Ur Specific [place] Urine WBC (Auto) Urine Creatinine Urine Total Protein Lymph Enumerat CD4/CD8 % CD3 Cells Absolute CD3 Count % CD4 Cells Absolute CD4 Count % CD8 Cells Absolute CD8 Count Absolute CD19 Count HIV DNA Qual (PCR) HIV-1 RNA PCR copies/ml HIV-1 RNA (PCR) log Miscellaneous Test Crossmatch 06/23/18 06/23/18 06/23/18 13:57 17:00 18:40 WBC RBC Hgb Hct MCV MCHC RDW Plt Count Seg Neuts % (Manual) Lymphocytes % (Manual) Nucleated RBC % Seg Neutrophils # Man Abs Lymphs (Manual) Lymphocytes # (Manual) PT INR D-Dimer POC ABG pH POC ABG pCO2 POC ABG pO2 Sodium Potassium Chloride Carbon Dioxide BUN 38 H Creatinine 1.8 H Glucose POC Glucose 196 H Hemoglobin A1c Calcium AST ALT C-Reactive Protein 1.60 H Total Protein Albumin Triglycerides Ur Specific [place] Urine WBC (Auto) Urine Creatinine Urine Total Protein Lymph Enumerat CD4/CD8 % CD3 Cells Absolute CD3 Count % CD4 Cells Absolute CD4 Count % CD8 Cells Absolute CD8 Count Absolute CD19 Count HIV DNA Qual (PCR) HIV-1 RNA PCR copies/ml HIV-1 RNA (PCR) log Miscellaneous Test Crossmatch 06/23/18 06/23/18 06/24/18 21:16 23:22 04:12 WBC RBC 2.89 L Hgb 8.8 L Hct 26.9 L MCV MCHC RDW Plt Count Seg Neuts % (Manual) Lymphocytes % (Manual) Nucleated RBC % Seg Neutrophils # Man Abs Lymphs (Manual) Lymphocytes # (Manual) PT INR D-Dimer POC ABG pH 7.311 L POC ABG pCO2 47.4 H POC ABG pO2 Sodium Potassium Chloride Carbon Dioxide BUN Creatinine Glucose POC Glucose 165 H Hemoglobin A1c Calcium AST ALT C-Reactive Protein Total Protein Albumin Triglycerides Ur Specific [place] Urine WBC (Auto) Urine Creatinine Urine Total Protein Lymph Enumerat CD4/CD8 % CD3 Cells Absolute CD3 Count % CD4 Cells Absolute CD4 Count % CD8 Cells Absolute CD8 Count Absolute CD19 Count HIV DNA Qual (PCR) HIV-1 RNA PCR copies/ml HIV-1 RNA (PCR) log Miscellaneous Test Crossmatch 06/24/18 06/24/18 06/24/18 04:12 04:46 05:24 WBC RBC Hgb Hct MCV MCHC RDW Plt Count Seg Neuts % (Manual) Lymphocytes % (Manual) Nucleated RBC % Seg Neutrophils # Man Abs Lymphs (Manual) Lymphocytes # (Manual) PT INR D-Dimer POC ABG pH 7.250 L POC ABG pCO2 55.8 H POC ABG pO2 Sodium Potassium 5.4 H Chloride Carbon Dioxide BUN 44 H Creatinine 2.2 H Glucose 206 H POC Glucose 183 H Hemoglobin A1c Calcium 7.5 L AST ALT C-Reactive Protein Total Protein Albumin Triglycerides Ur Specific [place] Urine WBC (Auto) Urine Creatinine Urine Total Protein Lymph Enumerat CD4/CD8 % CD3 Cells Absolute CD3 Count % CD4 Cells Absolute CD4 Count % CD8 Cells Absolute CD8 Count Absolute CD19 Count HIV DNA Qual (PCR) HIV-1 RNA PCR copies/ml HIV-1 RNA (PCR) log Miscellaneous Test Crossmatch 06/24/18 06/24/18 06/24/18 11:14 16:40 17:16 WBC RBC Hgb Hct MCV MCHC RDW Plt Count Seg Neuts % (Manual) Lymphocytes % (Manual) Nucleated RBC % Seg Neutrophils # Man Abs Lymphs (Manual) Lymphocytes # (Manual) PT INR D-Dimer POC ABG pH 7.067 L POC ABG pCO2 91.7 H POC ABG pO2 134 H Sodium Potassium Chloride Carbon Dioxide BUN Creatinine Glucose POC Glucose 151 H 195 H Hemoglobin A1c Calcium AST ALT C-Reactive Protein Total Protein Albumin Triglycerides Ur Specific [place] Urine WBC (Auto) Urine Creatinine Urine Total Protein Lymph Enumerat CD4/CD8 % CD3 Cells Absolute CD3 Count % CD4 Cells Absolute CD4 Count % CD8 Cells Absolute CD8 Count Absolute CD19 Count HIV DNA Qual (PCR) HIV-1 RNA PCR copies/ml HIV-1 RNA (PCR) log Miscellaneous Test Crossmatch 06/24/18 06/24/18 06/24/18 18:03 22:45 22:45 WBC RBC Hgb Hct MCV MCHC RDW Plt Count Seg Neuts % (Manual) Lymphocytes % (Manual) Nucleated RBC % Seg Neutrophils # Man Abs Lymphs (Manual) Lymphocytes # (Manual) PT INR D-Dimer POC ABG pH 7.234 L POC ABG pCO2 59.9 H POC ABG pO2 121 H Sodium Potassium Chloride Carbon Dioxide BUN Creatinine Glucose POC Glucose Hemoglobin A1c Calcium AST ALT C-Reactive Protein Total Protein Albumin Triglycerides Ur Specific [place] Urine WBC (Auto) 9.0 H Urine Creatinine 47.2 H Urine Total Protein 25 H Lymph Enumerat CD4/CD8 % CD3 Cells Absolute CD3 Count % CD4 Cells Absolute CD4 Count % CD8 Cells Absolute CD8 Count Absolute CD19 Count HIV DNA Qual (PCR) HIV-1 RNA PCR copies/ml HIV-1 RNA (PCR) log Miscellaneous Test Crossmatch 06/24/18 06/24/18 06/25/18 Unknown 23:59 04:36 WBC RBC Hgb Hct MCV MCHC RDW Plt Count Seg Neuts % (Manual) Lymphocytes % (Manual) Nucleated RBC % Seg Neutrophils # Man Abs Lymphs (Manual) Lymphocytes # (Manual) PT 15.6 H INR 1.17 H D-Dimer POC ABG pH 7.200 L POC ABG pCO2 65.3 H POC ABG pO2 Sodium Potassium Chloride Carbon Dioxide BUN Creatinine Glucose POC Glucose 233 H Hemoglobin A1c Calcium AST ALT C-Reactive Protein Total Protein Albumin Triglycerides Ur Specific [place] Urine WBC (Auto) Urine Creatinine Urine Total Protein Lymph Enumerat CD4/CD8 % CD3 Cells Absolute CD3 Count % CD4 Cells Absolute CD4 Count % CD8 Cells Absolute CD8 Count Absolute CD19 Count HIV DNA Qual (PCR) HIV-1 RNA PCR copies/ml HIV-1 RNA (PCR) log Miscellaneous Test Crossmatch 06/25/18 06/25/18 06/25/18 05:29 11:12 11:40 WBC RBC 2.67 L Hgb 8.5 L Hct 25.6 L MCV 96 H MCHC RDW 16.0 H Plt Count Seg Neuts % (Manual) Lymphocytes % (Manual) Nucleated RBC % Seg Neutrophils # Man Abs Lymphs (Manual) Lymphocytes # (Manual) PT INR D-Dimer POC ABG pH POC ABG pCO2 POC ABG pO2 Sodium Potassium Chloride Carbon Dioxide BUN Creatinine Glucose POC Glucose 212 H 244 H Hemoglobin A1c Calcium AST ALT C-Reactive Protein Total Protein Albumin Triglycerides Ur Specific [place] Urine WBC (Auto) Urine Creatinine Urine Total Protein Lymph Enumerat CD4/CD8 % CD3 Cells Absolute CD3 Count % CD4 Cells Absolute CD4 Count % CD8 Cells Absolute CD8 Count Absolute CD19 Count HIV DNA Qual (PCR) HIV-1 RNA PCR copies/ml HIV-1 RNA (PCR) log Miscellaneous Test Crossmatch 06/25/18 06/25/18 06/25/18 11:40 17:18 18:08 WBC RBC Hgb Hct MCV MCHC RDW Plt Count Seg Neuts % (Manual) Lymphocytes % (Manual) Nucleated RBC % Seg Neutrophils # Man Abs Lymphs (Manual) Lymphocytes # (Manual) PT INR D-Dimer POC ABG pH 7.206 L POC ABG pCO2 68.1 H POC ABG pO2 Sodium Potassium 5.8 H Chloride Carbon Dioxide BUN 48 H Creatinine 2.1 H Glucose 293 H POC Glucose 264 H Hemoglobin A1c Calcium 7.5 L AST ALT C-Reactive Protein Total Protein Albumin Triglycerides Ur Specific [place] Urine WBC (Auto) Urine Creatinine Urine Total Protein Lymph Enumerat CD4/CD8 % CD3 Cells Absolute CD3 Count % CD4 Cells Absolute CD4 Count % CD8 Cells Absolute CD8 Count Absolute CD19 Count HIV DNA Qual (PCR) HIV-1 RNA PCR copies/ml HIV-1 RNA (PCR) log Miscellaneous Test Crossmatch 06/25/18 06/25/18 06/26/18 21:20 23:59 05:10 WBC RBC Hgb Hct MCV MCHC RDW Plt Count Seg Neuts % (Manual) Lymphocytes % (Manual) Nucleated RBC % Seg Neutrophils # Man Abs Lymphs (Manual) Lymphocytes # (Manual) PT INR D-Dimer POC ABG pH 7.220 L POC ABG pCO2 65.0 H POC ABG pO2 71 L Sodium Potassium Chloride Carbon Dioxide BUN Creatinine Glucose POC Glucose 231 H 259 H Hemoglobin A1c Calcium AST ALT C-Reactive Protein Total Protein Albumin Triglycerides Ur Specific [place] Urine WBC (Auto) Urine Creatinine Urine Total Protein Lymph Enumerat CD4/CD8 % CD3 Cells Absolute CD3 Count % CD4 Cells Absolute CD4 Count % CD8 Cells Absolute CD8 Count Absolute CD19 Count HIV DNA Qual (PCR) HIV-1 RNA PCR copies/ml HIV-1 RNA (PCR) log Miscellaneous Test Crossmatch 06/26/18 06/26/18 06/26/18 05:29 07:25 07:25 WBC 12.0 H RBC 2.69 L Hgb 8.2 L Hct 25.5 L MCV 95 H MCHC RDW 15.7 H Plt Count Seg Neuts % (Manual) Lymphocytes % (Manual) Nucleated RBC % Seg Neutrophils # Man Abs Lymphs (Manual) Lymphocytes # (Manual) PT INR D-Dimer POC ABG pH 7.240 L POC ABG pCO2 67.6 H POC ABG pO2 106 H Sodium Potassium 5.2 H Chloride Carbon Dioxide BUN 58 H Creatinine 1.9 H Glucose 219 H POC Glucose Hemoglobin A1c Calcium 7.9 L AST ALT C-Reactive Protein Total Protein Albumin Triglycerides Ur Specific [place] Urine WBC (Auto) Urine Creatinine Urine Total Protein Lymph Enumerat CD4/CD8 % CD3 Cells Absolute CD3 Count % CD4 Cells Absolute CD4 Count % CD8 Cells Absolute CD8 Count Absolute CD19 Count HIV DNA Qual (PCR) HIV-1 RNA PCR copies/ml HIV-1 RNA (PCR) log Miscellaneous Test Crossmatch 06/26/18 06/26/18 06/26/18 07:25 12:49 17:42 WBC RBC Hgb Hct MCV MCHC RDW Plt Count Seg Neuts % (Manual) Lymphocytes % (Manual) Nucleated RBC % Seg Neutrophils # Man Abs Lymphs (Manual) Lymphocytes # (Manual) PT INR D-Dimer POC ABG pH 7.178 L POC ABG pCO2 73.6 H POC ABG pO2 77 L Sodium Potassium Chloride Carbon Dioxide BUN Creatinine Glucose POC Glucose 276 H Hemoglobin A1c Calcium AST ALT C-Reactive Protein Total Protein Albumin Triglycerides 174 H Ur Specific [place] Urine WBC (Auto) Urine Creatinine Urine Total Protein Lymph Enumerat CD4/CD8 % CD3 Cells Absolute CD3 Count % CD4 Cells Absolute CD4 Count % CD8 Cells Absolute CD8 Count Absolute CD19 Count HIV DNA Qual (PCR) HIV-1 RNA PCR copies/ml HIV-1 RNA (PCR) log Miscellaneous Test Crossmatch 06/26/18 06/26/18 06/26/18 18:25 21:24 23:22 WBC RBC Hgb Hct MCV MCHC RDW Plt Count Seg Neuts % (Manual) Lymphocytes % (Manual) Nucleated RBC % Seg Neutrophils # Man Abs Lymphs (Manual) Lymphocytes # (Manual) PT INR D-Dimer POC ABG pH 7.152 L POC ABG pCO2 80.6 H POC ABG pO2 Sodium Potassium Chloride Carbon Dioxide BUN Creatinine Glucose POC Glucose 304 H 282 H Hemoglobin A1c Calcium AST ALT C-Reactive Protein Total Protein Albumin Triglycerides Ur Specific [place] Urine WBC (Auto) Urine Creatinine Urine Total Protein Lymph Enumerat CD4/CD8 % CD3 Cells Absolute CD3 Count % CD4 Cells Absolute CD4 Count % CD8 Cells Absolute CD8 Count Absolute CD19 Count HIV DNA Qual (PCR) HIV-1 RNA PCR copies/ml HIV-1 RNA (PCR) log Miscellaneous Test Crossmatch 06/27/18 06/27/18 06/27/18 04:05 05:15 05:15 WBC RBC Hgb Hct MCV MCHC RDW Plt Count Seg Neuts % (Manual) Lymphocytes % (Manual) Nucleated RBC % Seg Neutrophils # Man Abs Lymphs (Manual) Lymphocytes # (Manual) PT INR D-Dimer POC ABG pH 7.266 L POC ABG pCO2 62.8 H POC ABG pO2 Sodium Potassium 5.5 H Chloride Carbon Dioxide BUN 73 H Creatinine 2.1 H Glucose 211 H POC Glucose Hemoglobin A1c Calcium 7.7 L AST ALT C-Reactive Protein Total Protein Albumin Triglycerides Ur Specific [place] Urine WBC (Auto) Urine Creatinine Urine Total Protein Lymph Enumerat CD4/CD8 % CD3 Cells Absolute CD3 Count % CD4 Cells Absolute CD4 Count % CD8 Cells Absolute CD8 Count Absolute CD19 Count HIV DNA Qual (PCR) HIV-1 RNA PCR copies/ml HIV-1 RNA (PCR) log Miscellaneous Test Flexitest 1 H Crossmatch 06/27/18 06/27/18 06/27/18 05:15 05:52 13:10 WBC RBC 2.41 L Hgb 7.6 L Hct 22.4 L MCV MCHC RDW Plt Count Seg Neuts % (Manual) Lymphocytes % (Manual) Nucleated RBC % Seg Neutrophils # Man Abs Lymphs (Manual) Lymphocytes # (Manual) PT INR D-Dimer POC ABG pH POC ABG pCO2 POC ABG pO2 Sodium Potassium Chloride Carbon Dioxide BUN Creatinine Glucose POC Glucose 198 H 238 H Hemoglobin A1c Calcium AST ALT C-Reactive Protein Total Protein Albumin Triglycerides Ur Specific [place] Urine WBC (Auto) Urine Creatinine Urine Total Protein Lymph Enumerat CD4/CD8 % CD3 Cells Absolute CD3 Count % CD4 Cells Absolute CD4 Count % CD8 Cells Absolute CD8 Count Absolute CD19 Count HIV DNA Qual (PCR) HIV-1 RNA PCR copies/ml HIV-1 RNA (PCR) log Miscellaneous Test Crossmatch 06/27/18 06/27/18 06/27/18 16:12 17:51 23:22 WBC RBC Hgb Hct MCV MCHC RDW Plt Count Seg Neuts % (Manual) Lymphocytes % (Manual) Nucleated RBC % Seg Neutrophils # Man Abs Lymphs (Manual) Lymphocytes # (Manual) PT INR D-Dimer POC ABG pH POC ABG pCO2 POC ABG pO2 Sodium Potassium Chloride Carbon Dioxide BUN Creatinine Glucose POC Glucose 174 H 162 H 171 H Hemoglobin A1c Calcium AST ALT C-Reactive Protein Total Protein Albumin Triglycerides Ur Specific [place] Urine WBC (Auto) Urine Creatinine Urine Total Protein Lymph Enumerat CD4/CD8 % CD3 Cells Absolute CD3 Count % CD4 Cells Absolute CD4 Count % CD8 Cells Absolute CD8 Count Absolute CD19 Count HIV DNA Qual (PCR) HIV-1 RNA PCR copies/ml HIV-1 RNA (PCR) log Miscellaneous Test Crossmatch 06/28/18 06/28/18 06/28/18 04:36 04:54 05:10 WBC RBC Hgb Hct MCV MCHC RDW Plt Count Seg Neuts % (Manual) Lymphocytes % (Manual) Nucleated RBC % Seg Neutrophils # Man Abs Lymphs (Manual) Lymphocytes # (Manual) PT INR D-Dimer POC ABG pH 7.257 L POC ABG pCO2 68.8 H POC ABG pO2 Sodium Potassium Chloride Carbon Dioxide BUN 93 H Creatinine 2.4 H Glucose 186 H POC Glucose 193 H Hemoglobin A1c Calcium 8.3 L AST ALT C-Reactive Protein Total Protein Albumin Triglycerides Ur Specific [place] Urine WBC (Auto) Urine Creatinine Urine Total Protein Lymph Enumerat CD4/CD8 % CD3 Cells Absolute CD3 Count % CD4 Cells Absolute CD4 Count % CD8 Cells Absolute CD8 Count Absolute CD19 Count HIV DNA Qual (PCR) HIV-1 RNA PCR copies/ml HIV-1 RNA (PCR) log Miscellaneous Test Crossmatch 06/28/18 06/28/18 06/28/18 12:15 17:43 18:26 WBC RBC Hgb Hct MCV MCHC RDW Plt Count Seg Neuts % (Manual) Lymphocytes % (Manual) Nucleated RBC % Seg Neutrophils # Man Abs Lymphs (Manual) Lymphocytes # (Manual) PT INR D-Dimer POC ABG pH 7.123 L POC ABG pCO2 82.7 H POC ABG pO2 Sodium Potassium Chloride Carbon Dioxide BUN Creatinine Glucose POC Glucose 154 H 194 H Hemoglobin A1c Calcium AST ALT C-Reactive Protein Total Protein Albumin Triglycerides Ur Specific [place] Urine WBC (Auto) Urine Creatinine Urine Total Protein Lymph Enumerat CD4/CD8 % CD3 Cells Absolute CD3 Count % CD4 Cells Absolute CD4 Count % CD8 Cells Absolute CD8 Count Absolute CD19 Count HIV DNA Qual (PCR) HIV-1 RNA PCR copies/ml HIV-1 RNA (PCR) log Miscellaneous Test Crossmatch 06/28/18 06/29/18 06/29/18 22:08 00:12 04:38 WBC RBC Hgb Hct MCV MCHC RDW Plt Count Seg Neuts % (Manual) Lymphocytes % (Manual) Nucleated RBC % Seg Neutrophils # Man Abs Lymphs (Manual) Lymphocytes # (Manual) PT INR D-Dimer POC ABG pH 7.172 L 7.158 L POC ABG pCO2 80.4 H 76.6 H POC ABG pO2 143 H Sodium Potassium Chloride Carbon Dioxide BUN Creatinine Glucose POC Glucose 202 H Hemoglobin A1c Calcium AST ALT C-Reactive Protein Total Protein Albumin Triglycerides Ur Specific [place] Urine WBC (Auto) Urine Creatinine Urine Total Protein Lymph Enumerat CD4/CD8 % CD3 Cells Absolute CD3 Count % CD4 Cells Absolute CD4 Count % CD8 Cells Absolute CD8 Count Absolute CD19 Count HIV DNA Qual (PCR) HIV-1 RNA PCR copies/ml HIV-1 RNA (PCR) log Miscellaneous Test Crossmatch 06/29/18 06/29/18 06/29/18 05:15 05:15 05:32 WBC 12.3 H RBC 1.93 L Hgb 5.9 L* Hct 18.2 L* MCV 95 H MCHC RDW Plt Count 127 L Seg Neuts % (Manual) Lymphocytes % (Manual) Nucleated RBC % Seg Neutrophils # Man Abs Lymphs (Manual) Lymphocytes # (Manual) PT INR D-Dimer POC ABG pH POC ABG pCO2 POC ABG pO2 Sodium 136 L Potassium 5.9 H Chloride 94.3 L Carbon Dioxide BUN 139 H Creatinine 4.2 H D Glucose 157 H POC Glucose 150 H Hemoglobin A1c Calcium 8.2 L AST ALT C-Reactive Protein Total Protein Albumin Triglycerides Ur Specific [place] Urine WBC (Auto) Urine Creatinine Urine Total Protein Lymph Enumerat CD4/CD8 % CD3 Cells Absolute CD3 Count % CD4 Cells Absolute CD4 Count % CD8 Cells Absolute CD8 Count Absolute CD19 Count HIV DNA Qual (PCR) HIV-1 RNA PCR copies/ml HIV-1 RNA (PCR) log Miscellaneous Test Crossmatch 06/29/18 06/29/18 06/29/18 08:07 09:50 11:55 WBC RBC Hgb 6.0 L Hct 18.4 L* MCV MCHC RDW Plt Count Seg Neuts % (Manual) Lymphocytes % (Manual) Nucleated RBC % Seg Neutrophils # Man Abs Lymphs (Manual) Lymphocytes # (Manual) PT INR D-Dimer POC ABG pH POC ABG pCO2 POC ABG pO2 Sodium Potassium Chloride Carbon Dioxide BUN Creatinine Glucose POC Glucose 236 H Hemoglobin A1c Calcium AST ALT C-Reactive Protein Total Protein Albumin Triglycerides Ur Specific [place] Urine WBC (Auto) Urine Creatinine Urine Total Protein Lymph Enumerat CD4/CD8 % CD3 Cells Absolute CD3 Count % CD4 Cells Absolute CD4 Count % CD8 Cells Absolute CD8 Count Absolute CD19 Count HIV DNA Qual (PCR) HIV-1 RNA PCR copies/ml HIV-1 RNA (PCR) log Miscellaneous Test Crossmatch See Detail 06/29/18 06/30/18 06/30/18 18:29 00:08 04:47 WBC RBC Hgb Hct MCV MCHC RDW Plt Count Seg Neuts % (Manual) Lymphocytes % (Manual) Nucleated RBC % Seg Neutrophils # Man Abs Lymphs (Manual) Lymphocytes # (Manual) PT INR D-Dimer POC ABG pH 7.182 L POC ABG pCO2 67.7 H POC ABG pO2 Sodium Potassium Chloride Carbon Dioxide BUN Creatinine Glucose POC Glucose 171 H 159 H Hemoglobin A1c Calcium AST ALT C-Reactive Protein Total Protein Albumin Triglycerides Ur Specific [place] Urine WBC (Auto) Urine Creatinine Urine Total Protein Lymph Enumerat CD4/CD8 % CD3 Cells Absolute CD3 Count % CD4 Cells Absolute CD4 Count % CD8 Cells Absolute CD8 Count Absolute CD19 Count HIV DNA Qual (PCR) HIV-1 RNA PCR copies/ml HIV-1 RNA (PCR) log Miscellaneous Test Crossmatch 06/30/18 06/30/18 06/30/18 05:07 06:00 12:43 WBC 18.2 H RBC 2.43 L Hgb 7.4 L Hct 22.0 L MCV MCHC RDW 15.3 H Plt Count 111 L Seg Neuts % (Manual) Lymphocytes % (Manual) Nucleated RBC % Seg Neutrophils # Man Abs Lymphs (Manual) Lymphocytes # (Manual) PT INR D-Dimer POC ABG pH POC ABG pCO2 POC ABG pO2 Sodium Potassium Chloride Carbon Dioxide BUN Creatinine Glucose POC Glucose 162 H 153 H Hemoglobin A1c Calcium AST ALT C-Reactive Protein Total Protein Albumin Triglycerides Ur Specific [place] Urine WBC (Auto) Urine Creatinine Urine Total Protein Lymph Enumerat CD4/CD8 % CD3 Cells Absolute CD3 Count % CD4 Cells Absolute CD4 Count % CD8 Cells Absolute CD8 Count Absolute CD19 Count HIV DNA Qual (PCR) HIV-1 RNA PCR copies/ml HIV-1 RNA (PCR) log Miscellaneous Test Crossmatch 06/30/18 06/30/18 07/01/18 18:07 Unknown 00:06 WBC RBC Hgb Hct MCV MCHC RDW Plt Count Seg Neuts % (Manual) Lymphocytes % (Manual) Nucleated RBC % Seg Neutrophils # Man Abs Lymphs (Manual) Lymphocytes # (Manual) PT INR D-Dimer POC ABG pH POC ABG pCO2 POC ABG pO2 Sodium Potassium 5.9 H Chloride 95.5 L Carbon Dioxide BUN 164 H Creatinine 5.2 H Glucose 151 H POC Glucose 183 H 208 H Hemoglobin A1c Calcium 7.6 L AST ALT C-Reactive Protein Total Protein Albumin Triglycerides 223 H Ur Specific [place] Urine WBC (Auto) Urine Creatinine Urine Total Protein Lymph Enumerat CD4/CD8 % CD3 Cells Absolute CD3 Count % CD4 Cells Absolute CD4 Count % CD8 Cells Absolute CD8 Count Absolute CD19 Count HIV DNA Qual (PCR) HIV-1 RNA PCR copies/ml HIV-1 RNA (PCR) log Miscellaneous Test Crossmatch 07/01/18 07/01/18 07/01/18 04:47 05:43 06:00 WBC RBC Hgb Hct MCV MCHC RDW Plt Count Seg Neuts % (Manual) Lymphocytes % (Manual) Nucleated RBC % Seg Neutrophils # Man Abs Lymphs (Manual) Lymphocytes # (Manual) PT INR D-Dimer POC ABG pH 7.060 L POC ABG pCO2 121.0 H POC ABG pO2 Sodium Potassium 5.8 H Chloride 94.1 L Carbon Dioxide BUN 144 H Creatinine 3.1 H Glucose 208 H POC Glucose 214 H Hemoglobin A1c Calcium 6.7 L AST ALT C-Reactive Protein Total Protein Albumin Triglycerides Ur Specific [place] Urine WBC (Auto) Urine Creatinine Urine Total Protein Lymph Enumerat CD4/CD8 % CD3 Cells Absolute CD3 Count % CD4 Cells Absolute CD4 Count % CD8 Cells Absolute CD8 Count Absolute CD19 Count HIV DNA Qual (PCR) HIV-1 RNA PCR copies/ml HIV-1 RNA (PCR) log Miscellaneous Test Crossmatch 07/01/18 07/01/18 07/01/18 06:00 06:52 10:00 WBC 17.9 H RBC 2.14 L Hgb 6.5 L 6.6 L Hct 20.0 L 20.5 L MCV MCHC RDW 15.9 H Plt Count 94 L Seg Neuts % (Manual) Lymphocytes % (Manual) Nucleated RBC % Seg Neutrophils # Man Abs Lymphs (Manual) Lymphocytes # (Manual) PT INR D-Dimer 2387.14 H POC ABG pH POC ABG pCO2 POC ABG pO2 Sodium Potassium Chloride Carbon Dioxide BUN Creatinine Glucose POC Glucose Hemoglobin A1c Calcium AST ALT C-Reactive Protein Total Protein Albumin Triglycerides Ur Specific [place] Urine WBC (Auto) Urine Creatinine Urine Total Protein Lymph Enumerat CD4/CD8 % CD3 Cells Absolute CD3 Count % CD4 Cells Absolute CD4 Count % CD8 Cells Absolute CD8 Count Absolute CD19 Count HIV DNA Qual (PCR) HIV-1 RNA PCR copies/ml HIV-1 RNA (PCR) log Miscellaneous Test Crossmatch 07/01/18 07/01/18 07/01/18 11:11 11:41 18:38 WBC RBC Hgb Hct MCV MCHC RDW Plt Count Seg Neuts % (Manual) Lymphocytes % (Manual) Nucleated RBC % Seg Neutrophils # Man Abs Lymphs (Manual) Lymphocytes # (Manual) PT INR D-Dimer POC ABG pH 7.151 L 7.168 L POC ABG pCO2 100.4 H 109.4 H POC ABG pO2 151 H 199 H Sodium Potassium Chloride Carbon Dioxide BUN Creatinine Glucose POC Glucose 213 H Hemoglobin A1c Calcium AST ALT C-Reactive Protein Total Protein Albumin Triglycerides Ur Specific [place] Urine WBC (Auto) Urine Creatinine Urine Total Protein Lymph Enumerat CD4/CD8 % CD3 Cells Absolute CD3 Count % CD4 Cells Absolute CD4 Count % CD8 Cells Absolute CD8 Count Absolute CD19 Count HIV DNA Qual (PCR) HIV-1 RNA PCR copies/ml HIV-1 RNA (PCR) log Miscellaneous Test Crossmatch 07/01/18 07/02/18 07/02/18 23:40 04:32 04:32 WBC 14.8 H RBC 2.68 L Hgb 8.1 L Hct 23.8 L MCV MCHC RDW Plt Count 81 L Seg Neuts % (Manual) Lymphocytes % (Manual) Nucleated RBC % Seg Neutrophils # Man Abs Lymphs (Manual) Lymphocytes # (Manual) PT INR D-Dimer POC ABG pH POC ABG pCO2 POC ABG pO2 Sodium 151 H D Potassium 3.1 L D Chloride Carbon Dioxide 39 H D BUN 108 H Creatinine 1.8 H Glucose 44 L POC Glucose < 40 L Hemoglobin A1c Calcium 6.6 L AST ALT C-Reactive Protein Total Protein Albumin Triglycerides Ur Specific [place] Urine WBC (Auto) Urine Creatinine Urine Total Protein Lymph Enumerat CD4/CD8 % CD3 Cells Absolute CD3 Count % CD4 Cells Absolute CD4 Count % CD8 Cells Absolute CD8 Count Absolute CD19 Count HIV DNA Qual (PCR) HIV-1 RNA PCR copies/ml HIV-1 RNA (PCR) log Miscellaneous Test Crossmatch 07/02/18 07/02/18 07/02/18 05:00 05:12 11:54 WBC RBC Hgb Hct MCV MCHC RDW Plt Count Seg Neuts % (Manual) Lymphocytes % (Manual) Nucleated RBC % Seg Neutrophils # Man Abs Lymphs (Manual) Lymphocytes # (Manual) PT INR D-Dimer POC ABG pH 7.319 L POC ABG pCO2 89.8 H POC ABG pO2 119 H Sodium Potassium Chloride Carbon Dioxide BUN Creatinine Glucose POC Glucose < 40 L < 40 L Hemoglobin A1c Calcium AST ALT C-Reactive Protein Total Protein Albumin Triglycerides Ur Specific [place] Urine WBC (Auto) Urine Creatinine Urine Total Protein Lymph Enumerat CD4/CD8 % CD3 Cells Absolute CD3 Count % CD4 Cells Absolute CD4 Count % CD8 Cells Absolute CD8 Count Absolute CD19 Count HIV DNA Qual (PCR) HIV-1 RNA PCR copies/ml HIV-1 RNA (PCR) log Miscellaneous Test Crossmatch 07/02/18 07/03/18 07/03/18 14:09 00:17 04:28 WBC RBC Hgb Hct MCV MCHC RDW Plt Count Seg Neuts % (Manual) Lymphocytes % (Manual) Nucleated RBC % Seg Neutrophils # Man Abs Lymphs (Manual) Lymphocytes # (Manual) PT INR D-Dimer POC ABG pH 7.267 L POC ABG pCO2 93.3 H POC ABG pO2 69 L Sodium Potassium Chloride Carbon Dioxide BUN Creatinine Glucose POC Glucose 53 L 69 L Hemoglobin A1c Calcium AST ALT C-Reactive Protein Total Protein Albumin Triglycerides Ur Specific [place] Urine WBC (Auto) Urine Creatinine Urine Total Protein Lymph Enumerat CD4/CD8 % CD3 Cells Absolute CD3 Count % CD4 Cells Absolute CD4 Count % CD8 Cells Absolute CD8 Count Absolute CD19 Count HIV DNA Qual (PCR) HIV-1 RNA PCR copies/ml HIV-1 RNA (PCR) log Miscellaneous Test Crossmatch 07/03/18 07/03/18 07/03/18 05:00 05:00 05:16 WBC RBC 2.23 L Hgb 7.0 L Hct 20.3 L MCV MCHC RDW Plt Count 81 L Seg Neuts % (Manual) Lymphocytes % (Manual) Nucleated RBC % Seg Neutrophils # Man Abs Lymphs (Manual) Lymphocytes # (Manual) PT INR D-Dimer POC ABG pH POC ABG pCO2 POC ABG pO2 Sodium 155 H Potassium 3.3 L Chloride Carbon Dioxide 40 H BUN 94 H Creatinine 1.7 H Glucose 115 H POC Glucose 113 H Hemoglobin A1c Calcium 6.9 L AST ALT C-Reactive Protein Total Protein Albumin Triglycerides Ur Specific [place] Urine WBC (Auto) Urine Creatinine Urine Total Protein Lymph Enumerat CD4/CD8 % CD3 Cells Absolute CD3 Count % CD4 Cells Absolute CD4 Count % CD8 Cells Absolute CD8 Count Absolute CD19 Count HIV DNA Qual (PCR) HIV-1 RNA PCR copies/ml HIV-1 RNA (PCR) log Miscellaneous Test Crossmatch 07/03/18 07/03/18 07/03/18 10:24 11:12 17:52 WBC RBC Hgb Hct MCV MCHC RDW Plt Count Seg Neuts % (Manual) Lymphocytes % (Manual) Nucleated RBC % Seg Neutrophils # Man Abs Lymphs (Manual) Lymphocytes # (Manual) PT INR D-Dimer POC ABG pH POC ABG pCO2 POC ABG pO2 Sodium Potassium Chloride Carbon Dioxide BUN Creatinine Glucose POC Glucose 125 H 167 H Hemoglobin A1c Calcium AST ALT C-Reactive Protein Total Protein Albumin Triglycerides Ur Specific [place] Urine WBC (Auto) Urine Creatinine Urine Total Protein Lymph Enumerat CD4/CD8 % CD3 Cells Absolute CD3 Count % CD4 Cells Absolute CD4 Count % CD8 Cells Absolute CD8 Count Absolute CD19 Count HIV DNA Qual (PCR) HIV-1 RNA PCR copies/ml HIV-1 RNA (PCR) log Miscellaneous Test Crossmatch See Detail 07/03/18 07/03/18 07/04/18 19:15 23:43 03:57 WBC RBC Hgb 7.8 L Hct 23.8 L MCV MCHC RDW Plt Count Seg Neuts % (Manual) Lymphocytes % (Manual) Nucleated RBC % Seg Neutrophils # Man Abs Lymphs (Manual) Lymphocytes # (Manual) PT INR D-Dimer POC ABG pH 7.229 L POC ABG pCO2 99.8 H POC ABG pO2 Sodium Potassium Chloride Carbon Dioxide BUN Creatinine Glucose POC Glucose 176 H Hemoglobin A1c Calcium AST ALT C-Reactive Protein Total Protein Albumin Triglycerides Ur Specific [place] Urine WBC (Auto) Urine Creatinine Urine Total Protein Lymph Enumerat CD4/CD8 % CD3 Cells Absolute CD3 Count % CD4 Cells Absolute CD4 Count % CD8 Cells Absolute CD8 Count Absolute CD19 Count HIV DNA Qual (PCR) HIV-1 RNA PCR copies/ml HIV-1 RNA (PCR) log Miscellaneous Test Crossmatch 07/04/18 07/04/18 07/04/18 06:06 12:42 17:49 WBC RBC Hgb Hct MCV MCHC RDW Plt Count Seg Neuts % (Manual) Lymphocytes % (Manual) Nucleated RBC % Seg Neutrophils # Man Abs Lymphs (Manual) Lymphocytes # (Manual) PT INR D-Dimer POC ABG pH POC ABG pCO2 POC ABG pO2 Sodium Potassium Chloride Carbon Dioxide BUN Creatinine Glucose POC Glucose 168 H 130 H 169 H Hemoglobin A1c Calcium AST ALT C-Reactive Protein Total Protein Albumin Triglycerides Ur Specific [place] Urine WBC (Auto) Urine Creatinine Urine Total Protein Lymph Enumerat CD4/CD8 % CD3 Cells Absolute CD3 Count % CD4 Cells Absolute CD4 Count % CD8 Cells Absolute CD8 Count Absolute CD19 Count HIV DNA Qual (PCR) HIV-1 RNA PCR copies/ml HIV-1 RNA (PCR) log Miscellaneous Test Crossmatch 07/04/18 07/04/18 07/04/18 23:12 Unknown Unknown WBC 12.7 H RBC 2.57 L Hgb 7.7 L Hct 23.9 L MCV MCHC RDW 15.3 H Plt Count 68 L Seg Neuts % (Manual) Lymphocytes % (Manual) Nucleated RBC % Seg Neutrophils # Man Abs Lymphs (Manual) Lymphocytes # (Manual) PT INR D-Dimer POC ABG pH POC ABG pCO2 POC ABG pO2 Sodium 154 H Potassium Chloride Carbon Dioxide 41 H* BUN 85 H Creatinine 1.7 H Glucose 130 H POC Glucose 162 H Hemoglobin A1c Calcium 7.6 L AST ALT C-Reactive Protein Total Protein Albumin Triglycerides 250 H Ur Specific [place] Urine WBC (Auto) Urine Creatinine Urine Total Protein Lymph Enumerat CD4/CD8 % CD3 Cells Absolute CD3 Count % CD4 Cells Absolute CD4 Count % CD8 Cells Absolute CD8 Count Absolute CD19 Count HIV DNA Qual (PCR) HIV-1 RNA PCR copies/ml HIV-1 RNA (PCR) log Miscellaneous Test Crossmatch 07/05/18 07/05/18 07/05/18 05:42 05:46 12:45 WBC RBC Hgb Hct MCV MCHC RDW Plt Count Seg Neuts % (Manual) Lymphocytes % (Manual) Nucleated RBC % Seg Neutrophils # Man Abs Lymphs (Manual) Lymphocytes # (Manual) PT INR D-Dimer POC ABG pH 7.240 L POC ABG pCO2 97.9 H POC ABG pO2 71 L Sodium Potassium Chloride Carbon Dioxide BUN Creatinine Glucose POC Glucose 278 H 268 H Hemoglobin A1c Calcium AST ALT C-Reactive Protein Total Protein Albumin Triglycerides Ur Specific [place] Urine WBC (Auto) Urine Creatinine Urine Total Protein Lymph Enumerat CD4/CD8 % CD3 Cells Absolute CD3 Count % CD4 Cells Absolute CD4 Count % CD8 Cells Absolute CD8 Count Absolute CD19 Count HIV DNA Qual (PCR) HIV-1 RNA PCR copies/ml HIV-1 RNA (PCR) log Miscellaneous Test Crossmatch 07/05/18 07/05/18 07/05/18 16:22 17:43 17:54 WBC RBC Hgb Hct MCV MCHC RDW Plt Count Seg Neuts % (Manual) Lymphocytes % (Manual) Nucleated RBC % Seg Neutrophils # Man Abs Lymphs (Manual) Lymphocytes # (Manual) PT INR D-Dimer POC ABG pH 7.094 L 7.112 L POC ABG pCO2 129.6 H 125.4 H POC ABG pO2 181 H 69 L Sodium Potassium Chloride Carbon Dioxide BUN Creatinine Glucose POC Glucose 221 H Hemoglobin A1c Calcium AST ALT C-Reactive Protein Total Protein Albumin Triglycerides Ur Specific [place] Urine WBC (Auto) Urine Creatinine Urine Total Protein Lymph Enumerat CD4/CD8 % CD3 Cells Absolute CD3 Count % CD4 Cells Absolute CD4 Count % CD8 Cells Absolute CD8 Count Absolute CD19 Count HIV DNA Qual (PCR) HIV-1 RNA PCR copies/ml HIV-1 RNA (PCR) log Miscellaneous Test Crossmatch 07/05/18 07/05/18 07/06/18 20:15 23:18 05:20 WBC RBC Hgb Hct MCV MCHC RDW Plt Count Seg Neuts % (Manual) Lymphocytes % (Manual) Nucleated RBC % Seg Neutrophils # Man Abs Lymphs (Manual) Lymphocytes # (Manual) PT INR D-Dimer POC ABG pH 7.140 L 7.256 L POC ABG pCO2 121.0 H 97.8 H POC ABG pO2 113 H 137 H Sodium Potassium Chloride Carbon Dioxide BUN Creatinine Glucose POC Glucose 227 H Hemoglobin A1c Calcium AST ALT C-Reactive Protein Total Protein Albumin Triglycerides Ur Specific [place] Urine WBC (Auto) Urine Creatinine Urine Total Protein Lymph Enumerat CD4/CD8 % CD3 Cells Absolute CD3 Count % CD4 Cells Absolute CD4 Count % CD8 Cells Absolute CD8 Count Absolute CD19 Count HIV DNA Qual (PCR) HIV-1 RNA PCR copies/ml HIV-1 RNA (PCR) log Miscellaneous Test Crossmatch 07/06/18 07/06/18 07/06/18 06:04 06:36 06:36 WBC RBC 2.30 L Hgb 7.3 L Hct 22.3 L MCV 97 H MCHC RDW 15.9 H Plt Count 56 L Seg Neuts % (Manual) 97.0 H Lymphocytes % (Manual) 3.0 L Nucleated RBC % Seg Neutrophils # Man 9.6 H Abs Lymphs (Manual) Lymphocytes # (Manual) 0.3 L PT INR D-Dimer POC ABG pH POC ABG pCO2 POC ABG pO2 Sodium 157 H Potassium Chloride 111.9 H Carbon Dioxide 41 H* BUN 52 H Creatinine Glucose 278 H POC Glucose 277 H Hemoglobin A1c Calcium 8.1 L AST ALT C-Reactive Protein Total Protein Albumin Triglycerides Ur Specific [place] Urine WBC (Auto) Urine Creatinine Urine Total Protein Lymph Enumerat CD4/CD8 % CD3 Cells Absolute CD3 Count % CD4 Cells Absolute CD4 Count % CD8 Cells Absolute CD8 Count Absolute CD19 Count HIV DNA Qual (PCR) HIV-1 RNA PCR copies/ml HIV-1 RNA (PCR) log Miscellaneous Test Crossmatch 07/06/18 07/06/18 07/06/18 12:13 17:57 23:18 WBC RBC Hgb Hct MCV MCHC RDW Plt Count Seg Neuts % (Manual) Lymphocytes % (Manual) Nucleated RBC % Seg Neutrophils # Man Abs Lymphs (Manual) Lymphocytes # (Manual) PT INR D-Dimer POC ABG pH POC ABG pCO2 POC ABG pO2 Sodium Potassium Chloride Carbon Dioxide BUN Creatinine Glucose POC Glucose 279 H 265 H 231 H Hemoglobin A1c Calcium AST ALT C-Reactive Protein Total Protein Albumin Triglycerides Ur Specific [place] Urine WBC (Auto) Urine Creatinine Urine Total Protein Lymph Enumerat CD4/CD8 % CD3 Cells Absolute CD3 Count % CD4 Cells Absolute CD4 Count % CD8 Cells Absolute CD8 Count Absolute CD19 Count HIV DNA Qual (PCR) HIV-1 RNA PCR copies/ml HIV-1 RNA (PCR) log Miscellaneous Test Crossmatch 07/07/18 07/07/18 07/07/18 04:00 04:00 04:00 WBC 12.1 H RBC 2.40 L Hgb 7.3 L Hct 23.2 L MCV 97 H MCHC 31 L RDW 15.7 H Plt Count 57 L Seg Neuts % (Manual) 95.0 H Lymphocytes % (Manual) 2.0 L Nucleated RBC % 2.0 H Seg Neutrophils # Man 11.5 H Abs Lymphs (Manual) Lymphocytes # (Manual) 0.2 L PT INR D-Dimer POC ABG pH POC ABG pCO2 POC ABG pO2 Sodium 154 H Potassium Chloride 108.1 H Carbon Dioxide 42 H* BUN 43 H Creatinine 0.7 L Glucose 260 H POC Glucose Hemoglobin A1c 6.3 H Calcium 8.1 L AST ALT C-Reactive Protein Total Protein Albumin Triglycerides Ur Specific [place] Urine WBC (Auto) Urine Creatinine Urine Total Protein Lymph Enumerat CD4/CD8 % CD3 Cells Absolute CD3 Count % CD4 Cells Absolute CD4 Count % CD8 Cells Absolute CD8 Count Absolute CD19 Count HIV DNA Qual (PCR) HIV-1 RNA PCR copies/ml HIV-1 RNA (PCR) log Miscellaneous Test Crossmatch 07/07/18 07/07/18 07/07/18 05:02 05:40 11:16 WBC RBC Hgb Hct MCV MCHC RDW Plt Count Seg Neuts % (Manual) Lymphocytes % (Manual) Nucleated RBC % Seg Neutrophils # Man Abs Lymphs (Manual) Lymphocytes # (Manual) PT INR D-Dimer POC ABG pH 7.295 L POC ABG pCO2 91.5 H POC ABG pO2 73 L Sodium Potassium Chloride Carbon Dioxide BUN Creatinine Glucose POC Glucose 292 H 262 H Hemoglobin A1c Calcium AST ALT C-Reactive Protein Total Protein Albumin Triglycerides Ur Specific [place] Urine WBC (Auto) Urine Creatinine Urine Total Protein Lymph Enumerat CD4/CD8 % CD3 Cells Absolute CD3 Count % CD4 Cells Absolute CD4 Count % CD8 Cells Absolute CD8 Count Absolute CD19 Count HIV DNA Qual (PCR) HIV-1 RNA PCR copies/ml HIV-1 RNA (PCR) log Miscellaneous Test Crossmatch Allied health notes reviewed: nursing
[2018-07-07] MEDS: LANTUS SUB-Q SCH (22:04)
[2018-07-08] MEDS: D5NS 0.2% 1,000 ML IV SCH (00:15)
[2018-07-08] MEDS: DIPRIVAN 10 MG/ML 1,000 MG/100 ML BOTTLE IV SCH ×3 (01:24→16:19)
[2018-07-08] MEDS: DUONEB *Not for PRN Use IH SCH ×4 (04:50→20:48)
[2018-07-08 05:11] LABS: Hematocrit 21.8 % (35.5-45.6); Hemoglobin 6.9 gm/dl (11.8-15.2); Mean Corpuscular HGB Conc 32 % (32-34); Mean Corpuscular Volume 96 fl (84-94); Red Blood Count 2.27 M/mm3 (3.65-5.03); Red Cell Distribution Width 15.1 % (13.2-15.2)
[2018-07-08 05:15] LABS: Platelet Count 57 K/mm3 (140-440)
[2018-07-08 05:21] LABS: BUN/Creatinine Ratio 67; Blood Urea Nitrogen 40 mg/dL (9-20); Calcium 8.2 mg/dL (8.4-10.2); Hemolysis Index 9
[2018-07-08 06:11] LABS: Basophils % (Manual) 0 % (0.0-1.8); Eosinophils % (Manual) 0 % (0.0-4.3); Total Cells Counted 100
[2018-07-08 06:12] LABS: Platelet Estimate Consistent w Auto; RBC Morphology Normal
[2018-07-08] MEDS: VFEND IV SCH ×2 (06:45→18:22)
[2018-07-08] MEDS: NACL 0.9% IV SCH ×2 (06:45→18:22)
[2018-07-08] MEDS: CYTOVENE 500 MG in NACL 0.9% 250ML 250 ML IV SCH ×2 (06:46→18:22)
[2018-07-08] MEDS: HumaLOG SUB-Q SCH ×3 (06:58→18:23)
[2018-07-08] MEDS ORDERED: NACL 0.9% 500 ML 500 ML IV ONE (09:23)
--- NOTE | 2018-07-08 09:26 | Progress Note ---
Assessment and Plan /Anemia due to acute blood loss from hematuria, required total 5 units of transfusion so far Hb dropped to 6.9 today w/o any active bleeding, will transfuse another unit /ARDS with Acute respiratory failure with hypoxia requiring full mechanical ventilatory support - Likely due to severe sepsis and bilateral pneumonia - Continue to treat underlying pneumonia with antibiotics, frequent nebs, ventilator support - Critical care following /Sepsis with Septic shock, resolved - secondary to bilateral pneumonia, profound immunosuppression from underlying AIDS - ID on board, CD4 count equals 10 - Continue antibiotics, IV fluid - Patient currently off pressor /Exctensive bilateral pneumonia -Extensive bilateral ground glass opacities and pneumonia with severe hypoxia. - Cytology PJP stain negative but DFA showed rare PJP. - Lung cytology GMS stain showed septated fungal hyphae with acute angle branching and yeast forms - but fungal cx negative, negative AFB and negative Aspregillus Ag - Serum CMV DNA PCR 06/19/2018 13,166 - per ID this is probably reactivation in the setting of critical illness - completed 10 days of amphothericin, Per ID now on voriconazole, ganciclovir and mepron /HIV WITH AIDS defining disease, ID following CD4=10 / VL 1,300,000 copies Azithromycin weekly for MAC Px /Hypernatremia, due to loosing free water continue IV fluid, having negative balance daily cont to monitor BMP /Hyperglycemia, could be steroid induced will lower steroid dose, check A1c increase insulin dose, cont SSI /Epixtasis, due to the low platelets and severe sepsis, resolved /JENNIFER secondary to Multifactorial causes - in setting of pre-renal injury, ATN secondary sepsis, contrast exposure, voriconazole, bactrim/antibiotic exposure. - Nephrology following, creatinine improving slowly /Severe metabolic acidosis, due to severe sepsis and worsening renal function - Continue to monitor BMP /Shock liver- from severe sepsis, Improving /Pulmonary hypertension, likely secondary to severe pneumonia - Critical care attending following /Hyperkalemia, resolved after meds, /Gross hematuria, - Gross hematuria after muir catheter placed on06/30/18, now clearing,pink. Transfused 2 Units. Consulted Urology and Laisha Arroyo evaluated patient and recommends conservative management. Unstable to go for CT Abd. /DVT and GI prophylaxis /Poor prognosis, DO NOT RESUSCITATE CODE STATUS The high probability of a clinically significant, sudden or life threatening deterioration of the [Pulmonary] system(s) required my full and direct attention, intervention and personal management. The aggregate critical care time was [32] minutes. This time is in addition to time spent performing reported procedures but includes the following: [x] Data Review and interpretation [x] Patient assessment and monitoring of vital signs [x] Documentation [x] Medication orders and management Brief History Patient is 32 yo with hypertension presented with shortness of breath, cough. He was found to have bilateral infiltrates. He was diagnosed with acute respiratory failure due to bilateral pneumonia. He was started on iv Antibiotics, put on BIPAP. He became worse, was intubated. Labs show + HIV/AIDS, new diagnosis. Patient is followed by Pulmonology, ID Physician. Few days into admission, he developed JENNIFER due to ATN from sepsis, contrast exposure and medications. Muir catheter was placed and Cr improving. Patient then developed gross hematuria, which now resolved. Off presoor now, but not ready to wean off from VENT. Family decided for DNR. Poor prognosis. Hospitalist Physical GEN: Intubated, sedated, NAD HEENT: Normocephalic, atraumatic, Neck: supple, No JVD Lungs: + b/l rhonchi, no wheeze Heart:S1 and S2 regular, no murmurs, rubs or gallop, Abd:soft, non tender, non distended, normal bowel sounds Ext: Edema all ext, no clubbing or cyanosis Neuro: Intubated, sedated Skin: no rash Subjective Date of service: 07/08/18 Principal diagnosis: Acute Hypoxemic Resp Failure; AIDS / HIV positive; Severe Sepsis due to PNA Interval history: Patient seen and examined. Medical records and medication list reviewed. No acute event overnight noted by the RN. Patient remained intubated, on sedation Hb again dropped to 6.9 today Objective - Constitutional Vitals: Vital Signs - 12hr 07/07/18 07/07/18 07/07/18 20:30 21:00 21:30 Temperature Pulse Rate 102 H 121 H 98 H Pulse Rate [ Anterior Bilateral Throughout] Pulse Rate [ Apical] Pulse Rate [ Bilateral] Respiratory Rate [Anterior Bilateral Throughout] Respiratory Rate [Bilateral ] Respiratory Rate [ Generalized] Blood Pressure 139/63 131/67 139/63 O2 Sat by Pulse 94 84 93 Oximetry 07/07/18 07/07/18 07/07/18 22:00 22:15 22:30 Temperature Pulse Rate 106 H 103 H Pulse Rate [ Anterior Bilateral Throughout] Pulse Rate [ 106 H Apical] Pulse Rate [ Bilateral] Respiratory Rate [Anterior Bilateral Throughout] Respiratory Rate [Bilateral ] Respiratory 30 H Rate [ Generalized] Blood Pressure 121/64 115/64 O2 Sat by Pulse 89 96 95 Oximetry 07/07/18 07/07/18 07/07/18 23:00 23:22 23:30 Temperature Pulse Rate 96 H 103 H 100 H Pulse Rate [ Anterior Bilateral Throughout] Pulse Rate [ Apical] Pulse Rate [ Bilateral] Respiratory Rate [Anterior Bilateral Throughout] Respiratory Rate [Bilateral ] Respiratory Rate [ Generalized] Blood Pressure 115/64 110/51 127/66 O2 Sat by Pulse 95 95 94 Oximetry 07/07/18 07/08/18 07/08/18 23:53 00:00 00:30 Temperature 99.0 F Pulse Rate 111 H 110 H 112 H Pulse Rate [ Anterior Bilateral Throughout] Pulse Rate [ 110 H Apical] Pulse Rate [ Bilateral] Respiratory Rate [Anterior Bilateral Throughout] Respiratory Rate [Bilateral ] Respiratory Rate [ Generalized] Blood Pressure 127/66 112/61 114/63 O2 Sat by Pulse 95 90 94 Oximetry 07/08/18 07/08/18 07/08/18 01:00 01:30 03:00 Temperature Pulse Rate 105 H 107 H 107 H Pulse Rate [ Anterior Bilateral Throughout] Pulse Rate [ Apical] Pulse Rate [ 110 H Bilateral] Respiratory Rate [Anterior Bilateral Throughout] Respiratory 35 H Rate [Bilateral ] Respiratory Rate [ Generalized] Blood Pressure 111/55 100/51 100/50 O2 Sat by Pulse 98 99 98 Oximetry 07/08/18 07/08/18 07/08/18 03:30 04:00 04:30 Temperature 99.4 F Pulse Rate 96 H 111 H 110 H Pulse Rate [ Anterior Bilateral Throughout] Pulse Rate [ 112 H Apical] Pulse Rate [ Bilateral] Respiratory Rate [Anterior Bilateral Throughout] Respiratory Rate [Bilateral ] Respiratory Rate [ Generalized] Blood Pressure 104/50 101/51 121/62 O2 Sat by Pulse 98 98 98 Oximetry 07/08/18 07/08/18 07/08/18 05:00 05:01 05:30 Temperature Pulse Rate 114 H 114 H Pulse Rate [ 108 H Anterior Bilateral Throughout] Pulse Rate [ Apical] Pulse Rate [ 114 H Bilateral] Respiratory 30 H Rate [Anterior Bilateral Throughout] Respiratory 31 H Rate [Bilateral ] Respiratory Rate [ Generalized] Blood Pressure 106/63 107/62 O2 Sat by Pulse 95 89 Oximetry 07/08/18 07/08/18 07/08/18 06:00 06:30 07:00 Temperature Pulse Rate 109 H 116 H 113 H Pulse Rate [ Anterior Bilateral Throughout] Pulse Rate [ Apical] Pulse Rate [ Bilateral] Respiratory Rate [Anterior Bilateral Throughout] Respiratory Rate [Bilateral ] Respiratory Rate [ Generalized] Blood Pressure 105/60 113/62 115/59 O2 Sat by Pulse 91 94 92 Oximetry 07/08/18 07/08/18 07/08/18 07:30 08:00 08:05 Temperature 100.6 F H Pulse Rate 117 H 117 H 118 H Pulse Rate [ Anterior Bilateral Throughout] Pulse Rate [ Apical] Pulse Rate [ Bilateral] Respiratory Rate [Anterior Bilateral Throughout] Respiratory Rate [Bilateral ] Respiratory Rate [ Generalized] Blood Pressure 121/59 119/56 119/56 O2 Sat by Pulse 95 91 94 Oximetry 07/08/18 07/08/18 08:08 08:30 Temperature Pulse Rate 111 H Pulse Rate [ Anterior Bilateral Throughout] Pulse Rate [ Apical] Pulse Rate [ 118 H Bilateral] Respiratory Rate [Anterior Bilateral Throughout] Respiratory 33 H Rate [Bilateral ] Respiratory Rate [ Generalized] Blood Pressure 112/61 O2 Sat by Pulse 94 Oximetry - Labs CBC & Chem 7: 07/08/18 05:00 07/08/18 05:00 Labs: Abnormal lab results 07/07/18 07/07/18 07/07/18 Range/Units 04:00 04:00 11:16 WBC (4.5-11.0) K/mm3 RBC (3.65-5.03) M/mm3 Hgb (11.8-15.2) gm/dl Hct (35.5-45.6) % MCV (84-94) fl Plt Count (140-440) K/mm3 Seg Neuts % (Manual) 95.0 H (40.0-70.0) % Lymphocytes % (Manual) 2.0 L (13.4-35.0) % Nucleated RBC % 2.0 H (0.0-0.9) % Seg Neutrophils # Man 11.5 H (1.8-7.7) K/mm3 Lymphocytes # (Manual) 0.2 L (1.2-5.4) K/mm3 POC ABG pH (7.35-7.45) POC ABG pCO2 (35-45) POC ABG pO2 (80-105) Sodium (137-145) mmol/L Chloride (98-107) mmol/L Carbon Dioxide (22-30) mmol/L BUN (9-20) mg/dL Creatinine (0.8-1.5) mg/dL Glucose (75-100) mg/dL POC Glucose 262 H (70-105) Hemoglobin A1c 6.3 H (4-6) % Calcium (8.4-10.2) mg/dL 07/07/18 07/07/18 07/08/18 Range/Units 17:32 23:26 04:05 WBC (4.5-11.0) K/mm3 RBC (3.65-5.03) M/mm3 Hgb (11.8-15.2) gm/dl Hct (35.5-45.6) % MCV (84-94) fl Plt Count (140-440) K/mm3 Seg Neuts % (Manual) (40.0-70.0) % Lymphocytes % (Manual) (13.4-35.0) % Nucleated RBC % (0.0-0.9) % Seg Neutrophils # Man (1.8-7.7) K/mm3 Lymphocytes # (Manual) (1.2-5.4) K/mm3 POC ABG pH 7.279 L (7.35-7.45) POC ABG pCO2 100.4 H (35-45) POC ABG pO2 134 H (80-105) Sodium (137-145) mmol/L Chloride (98-107) mmol/L Carbon Dioxide (22-30) mmol/L BUN (9-20) mg/dL Creatinine (0.8-1.5) mg/dL Glucose (75-100) mg/dL POC Glucose 254 H 168 H (70-105) Hemoglobin A1c (4-6) % Calcium (8.4-10.2) mg/dL 07/08/18 07/08/18 07/08/18 Range/Units 05:00 05:00 06:45 WBC 12.6 H (4.5-11.0) K/mm3 RBC 2.27 L (3.65-5.03) M/mm3 Hgb 6.9 L (11.8-15.2) gm/dl Hct 21.8 L (35.5-45.6) % MCV 96 H (84-94) fl Plt Count 57 L (140-440) K/mm3 Seg Neuts % (Manual) 98.0 H (40.0-70.0) % Lymphocytes % (Manual) 0 L (13.4-35.0) % Nucleated RBC % (0.0-0.9) % Seg Neutrophils # Man 12.3 H (1.8-7.7) K/mm3 Lymphocytes # (Manual) 0.0 L (1.2-5.4) K/mm3 POC ABG pH (7.35-7.45) POC ABG pCO2 (35-45) POC ABG pO2 (80-105) Sodium 156 H (137-145) mmol/L Chloride 109.6 H (98-107) mmol/L Carbon Dioxide 45 H* (22-30) mmol/L BUN 40 H (9-20) mg/dL Creatinine 0.6 L (0.8-1.5) mg/dL Glucose 200 H (75-100) mg/dL POC Glucose 193 H (70-105) Hemoglobin A1c (4-6) % Calcium 8.2 L (8.4-10.2) mg/dL
[2018-07-08] MEDS: PREVACID SOLUTAB FEEDTUBE SCH (09:50)
[2018-07-08] MEDS: MEPRON PO SCH ×2 (09:50→21:30)
[2018-07-08] MEDS: TYLENOL PO PRN ×2 (09:50→13:49)
[2018-07-08] MEDS: SOLU-Medrol IV SCH (09:50)
[2018-07-08] MEDS: fentaNYL DRIP Premix 2,000 MCG/100 ML BAG IV SCH ×3 (09:54→19:57)
[2018-07-08] MEDS: SODIUM CHLORIDE FLUSH SYRINGE 10 ML IV SCH ×2 (09:55→21:31)
--- NOTE | 2018-07-08 12:54 | Progress Note ---
Assessment and Plan - Patient Problems (1) Acute kidney failure with tubular necrosis Current Visit: Yes Status: Acute Plan to address problem: Multifactorial in setting of pre-renal injury, ATN secondary sepsis, contrast exposure, voriconazole, bactrim/antibiotic exposure. Will monitor, continue current supportive care. Need to adjust dose antimicro bials for his decreased renal clearance. Avoid nephrotoxins as much as possible in this critically ill patient with worsening renal injury. Renal function stable at this time. Continue to monitor closely. (2) Hypernatremia Current Visit: Yes Status: Acute Plan to address problem: Will increase FWF to 300 cc q 4 hours. Will also change fluids to D5W at 50 cc/hr. (3) Acute respiratory failure with hypoxia Current Visit: Yes Status: Acute Plan to address problem: Management per ICU team. (4) Respiratory acidosis Current Visit: Yes Status: Acute Plan to address problem: With compensatory metabolic alkalosis. Vent adjustments per ICU/pulmonary recommendations. (5) Bilateral pneumonia Current Visit: Yes Status: Acute Qualifiers: Pneumonia type: due to unspecified organism Lung location: unspecified part of lung Qualified Code(s): J18.9 - Pneumonia, unspecified organism Plan to address problem: Antibiotics per ID recommendations. S/p BAL with findings noted. (6) AIDS (acquired immune deficiency syndrome) Current Visit: Yes Status: Acute Plan to address problem: Management per ID. (7) Anemia Current Visit: Yes Status: Acute Plan to address problem: Transfuse to maintain Hgb >7.0. Subjective Date of service: 07/08/18 Principal diagnosis: Acute Hypoxemic Resp Failure; AIDS / HIV positive; Severe Sepsis due to PNA Interval history: No acute issues overnight. Remains intubated, sedated on precedex and fentanyl. Renal functino noted and stable. Persistent hypernatremia in setting of free water losses, with increasing serum sodium noted on labs. Currently on FWF @ 250cc q 4 hours. Also on D5 0.2%NaCl at 50 cc/hr. Objective - Vital Signs Vital signs: Vital Signs - 12hr 07/07/18 07/08/18 07/08/18 23:53 00:00 00:30 Temperature 99.0 F Pulse Rate 111 H 110 H 112 H Pulse Rate [ Anterior Bilateral Throughout] Pulse Rate [ 110 H Apical] Pulse Rate [ Bilateral] Respiratory Rate [Anterior Bilateral Throughout] Respiratory Rate [Bilateral ] Blood Pressure 127/66 112/61 114/63 O2 Sat by Pulse 95 90 94 Oximetry 07/08/18 07/08/18 07/08/18 01:00 01:30 03:00 Temperature Pulse Rate 105 H 107 H 107 H Pulse Rate [ Anterior Bilateral Throughout] Pulse Rate [ Apical] Pulse Rate [ 110 H Bilateral] Respiratory Rate [Anterior Bilateral Throughout] Respiratory 35 H Rate [Bilateral ] Blood Pressure 111/55 100/51 100/50 O2 Sat by Pulse 98 99 98 Oximetry 07/08/18 07/08/18 07/08/18 03:30 04:00 04:30 Temperature 99.4 F Pulse Rate 96 H 111 H 110 H Pulse Rate [ Anterior Bilateral Throughout] Pulse Rate [ 112 H Apical] Pulse Rate [ Bilateral] Respiratory Rate [Anterior Bilateral Throughout] Respiratory Rate [Bilateral ] Blood Pressure 104/50 101/51 121/62 O2 Sat by Pulse 98 98 98 Oximetry 07/08/18 07/08/18 07/08/18 05:00 05:01 05:30 Temperature Pulse Rate 114 H 114 H Pulse Rate [ 108 H Anterior Bilateral Throughout] Pulse Rate [ Apical] Pulse Rate [ 114 H Bilateral] Respiratory 30 H Rate [Anterior Bilateral Throughout] Respiratory 31 H Rate [Bilateral ] Blood Pressure 106/63 107/62 O2 Sat by Pulse 95 89 Oximetry 07/08/18 07/08/18 07/08/18 06:00 06:30 07:00 Temperature Pulse Rate 109 H 116 H 113 H Pulse Rate [ Anterior Bilateral Throughout] Pulse Rate [ Apical] Pulse Rate [ Bilateral] Respiratory Rate [Anterior Bilateral Throughout] Respiratory Rate [Bilateral ] Blood Pressure 105/60 113/62 115/59 O2 Sat by Pulse 91 94 92 Oximetry 07/08/18 07/08/18 07/08/18 07:30 08:00 08:05 Temperature 100.6 F H Pulse Rate 117 H 117 H 118 H Pulse Rate [ Anterior Bilateral Throughout] Pulse Rate [ Apical] Pulse Rate [ Bilateral] Respiratory Rate [Anterior Bilateral Throughout] Respiratory Rate [Bilateral ] Blood Pressure 121/59 119/56 119/56 O2 Sat by Pulse 95 99 94 Oximetry 07/08/18 07/08/18 07/08/18 08:08 08:30 09:00 Temperature Pulse Rate 111 H 127 H Pulse Rate [ Anterior Bilateral Throughout] Pulse Rate [ Apical] Pulse Rate [ 118 H Bilateral] Respiratory Rate [Anterior Bilateral Throughout] Respiratory 33 H Rate [Bilateral ] Blood Pressure 112/61 117/62 O2 Sat by Pulse 94 94 Oximetry 07/08/18 07/08/18 07/08/18 09:30 10:00 10:30 Temperature Pulse Rate 117 H 118 H 116 H Pulse Rate [ Anterior Bilateral Throughout] Pulse Rate [ Apical] Pulse Rate [ Bilateral] Respiratory Rate [Anterior Bilateral Throughout] Respiratory Rate [Bilateral ] Blood Pressure 103/56 107/59 100/53 O2 Sat by Pulse 98 100 100 Oximetry 07/08/18 11:00 Temperature Pulse Rate 115 H Pulse Rate [ Anterior Bilateral Throughout] Pulse Rate [ Apical] Pulse Rate [ Bilateral] Respiratory Rate [Anterior Bilateral Throughout] Respiratory Rate [Bilateral ] Blood Pressure 103/59 O2 Sat by Pulse 100 Oximetry - General Appearance General appearance: sedated on ventilator, intubated, frail EENT: ATNC Neck: no JVD Respiratory: Present: Ronchi Cardiology: regular, S1S2 Gastrointestinal: normal, normoactive bowel sounds Integumentary: warm and dry Neurologic: other (sedated on ventilator ) Musculoskeletal: other (+edema ) - Lab 07/08/18 05:00 07/08/18 05:00 Most recent lab results Calcium 8.2 mg/dL (8.4-10.2) L 07/08/18 05:00 Urine Creatinine 47.2 mg/dL (0.1-20.0) H 06/24/18 22:45 Urine Sodium 40 mmol/L 06/24/18 22:45 Urine Total Protein 25 mg/dL (5-11.8) H 06/24/18 22:45 - Allied health notes Allied health notes reviewed: nursing Medications & Allergies - Medications Allergies/Adverse Reactions: Allergies No Known Allergies Allergy (Verified 06/19/18 06:10) Home Medications: Home Medications Medication Instructions Recorded Confirmed Last Taken Type ALBUTEROL Inhaler (OR & NICU) 2 puff IH QID PRN 06/19/18 06/19/18 Unknown History [Proair] Pantoprazole [Protonix] 40 mg PO QDAY 06/19/18 06/19/18 Unknown History levoFLOXacin [Levaquin TAB] 500 mg PO QDAY 06/19/18 06/19/18 Unknown History Active Medications: Generic Name Dose Route Start Last Admin Trade Name Freq PRN Reason Stop Dose Admin Acetaminophen 650 mg 06/19/18 06:30 07/08/18 09:50 Tylenol PO 650 mg Q4H PRN Administration Pain MILD(1-3)/Fever >100.5/[place] Albuterol/Ipratropium 1 ampul 06/26/18 14:00 07/08/18 08:08 Duoneb *Not For Prn Use* IH 1 ampul Q6HRT PEYTON Administration Lipase/Protease/Amylase 1 each 07/03/18 14:31 Pancremeseret Arroyo 10,500 Unit FEEDTUBE PRN PRN For Clogged Feeding Tube Atovaquone 750 mg 07/03/18 22:00 07/08/18 09:50 Mepron PO 750 mg BID PEYTON Administration Azithromycin 1,200 mg 06/25/18 11:00 07/02/18 10:42 Zithromax PO 1,200 mg Mo PEYTON Administration Dextrose 50 ml 07/02/18 15:00 D50w (25gm) Syringe IV PRN PRN Hypoglycemia Fentanyl 50 mcg 06/19/18 06:00 06/30/18 21:56 Sublimaze IV 50 mcg Q10MIN PRN Administration ANALGESIA Hydrophilic Ointment 1 applic 06/19/18 06:00 Vaseline Lip Therapy TP Q2HR PRN Dry Lips Fentanyl Citrate 2,000 mcg in 100 mls @ 3.86 mls/hr 06/19/18 06:00 07/08/18 09:54 Fentanyl Drip Premix IV 4 mcg/kg/hr TITR PEYTON 15.441 mls/hr Administration Protocol 1 MCG/KG/HR Norepinephrine 4 mg in 250 mls @ 7.5 mls/hr 06/19/18 15:00 07/06/18 02:10 Levophed Drip 4 Mg/Ns 250 Ml IV 0 mcg/min TITR PEYTON 0 mls/hr Titration Protocol 2 MCG/MIN Propofol 1,000 mg in 100 mls @ 2.601 mls/hr 06/24/18 15:00 07/08/18 09:54 Diprivan 10 Mg/Ml IV 25 mcg/kg/min TITR PEYTON 13.005 mls/hr Administration Protocol 5 MCG/KG/MIN Dextrose 500 mls @ 5 mls/hr 06/25/18 08:56 06/28/18 11:07 D5w IV 5 mls/hr PRN PRN Administration FLUSH BEFORE AND AFTER AMPHO B Vasopressin 20 unit/ Sodium 101 mls @ 9.09 mls/hr 06/29/18 23:00 07/03/18 22:23 Chloride IV 0 units/min TITR PEYTON 0 mls/hr Titration Protocol 0.03 UNITS/MIN Ganciclovir Sodium 500 mg/ 250 mls @ 100 mls/hr 07/05/18 06:00 07/08/18 06:46 Sodium Chloride IV 100 mls/hr Q12HR@0600,1800 PEYTON Administration Voriconazole 400 mg/ Sodium 100 mls @ 50 mls/hr 07/05/18 06:00 07/08/18 06:45 Chloride IV 50 mls/hr Q12HR@0600,1800 PEYTON Administration Dextrose/Sodium Chloride 1,000 mls @ 50 mls/hr 07/06/18 08:00 07/08/18 00:15 D5ns 0.2% IV 50 mls/hr DIRECT PEYTON Administration Insulin Glargine 8 units 07/07/18 12:11 07/07/18 22:04 Lantus SUB-Q 8 units QHS PEYTON Administration Insulin Human Lispro 0 unit 06/20/18 13:00 07/08/18 06:58 Humalog SUB-Q 3 unit Q6HR PEYTON Administration Protocol Lansoprazole 30 mg 07/03/18 11:00 07/08/18 09:50 Prevacid Solutab FEEDTUBE 30 mg QDAY PEYTON Administration Methylprednisolone Sodium Succinate 40 mg 07/08/18 10:00 07/08/18 09:50 Solu-Medrol IV 40 mg Q24HR PEYTON Administration Multi-Ingred Cream/Lotion/Oil/Oint 1 applic 06/19/18 06:00 Artificial Tears Ophth Oint OU Q4HR PRN Dry Eye(s) Ondansetron HCl 4 mg 06/19/18 06:30 06/30/18 21:55 Zofran IV 4 mg Q8H PRN Administration Nausea And Vomiting Phenylephrine HCl 2 spray 06/24/18 06:07 07/07/18 11:00 Thompson-Synephrine NS 2 spray Q4H PRN Administration Congestion Simple Syrup 15 ml 07/03/18 14:31 Simple Syrup FEEDTUBE PRN PRN Hypoglycemia Simple Syrup 30 ml 07/03/18 14:31 Simple Syrup FEEDTUBE PRN PRN Hypoglycemia Sodium Bicarbonate 325 mg 07/03/18 15:14 Sodium Bicarbonate FEEDTUBE PRN PRN For Clogged Feeding Tube Sodium Chloride 10 ml 06/19/18 10:00 07/08/18 09:55 Sodium Chloride Flush Syringe 10 Ml IV 10 ml BID PEYTON Administration Sodium Chloride 10 ml 06/19/18 06:30 Sodium Chloride Flush Syringe 10 Ml IV PRN PRN LINE FLUSH
[2018-07-08] MEDS: D5W 1,000 ML IV SCH (13:49)
--- NOTE | 2018-07-08 15:15 | Progress Note ---
Assessment and Plan ARDS Acute Hypoxemic Respiratory Failure on MVS AIDS / HIV positive Severe Sepsis due to Pneumonia LLext DVT Hyponatremia Severe metabolic acidosis Shock liver - continue current ventilators settings (acidosis improved and acceptable) - continue to accept higher PIP's as severe hypercapnic acidosis otherwise - continue to target TV 4-6 ml/kg IBW as goal - continue to wean supplemental oxygen to keep O2 sats > 89% (reduced to 90% at bedside) - continue permissive hypercapnia strategies - continue anti-infectives per ID recs - 2D ECHO with normal EF - Seroquel stopped - continue to titrate sedatives for RASS -2 while on ARDS ventilation - continue anti-infective's per ID recommendations - trend CRP and lactate levels as necessary to aid clinical decision making - continue bronchodilators with pulmonary hygiene per RT - continue hyperventilation acutely to compensate for metabolic acidosis - VAP bundle addressed - daily SAT's - Daily SBT assessment - GI & VTE prophylaxis - enteral nutrition as tolerated - continue accuchecks q6h with glycemic control per SSI for target BG 140-180 mg/dL - continue other care per attending / other web development consultant's .... re-evaluate in am & prn .... aunt visiting and care plan discussed at length PROGNOSIS TRULY GUARDED CODE STATUS: FULL CODE The high probability of a clinically significant, sudden or life-threatening deterioration of the [cardiac, neurology] system(s) required my full and direct attention, intervention and personal management. The aggregate critical care time was [32] minutes without overlap. Time includes spent on; [x] Data Review and interpretation [x] Patient assessment and monitoring of vital signs [x] Documentation [x] Medication orders and management Subjective Date of service: 07/08/18 Principal diagnosis: Acute Hypoxemic Resp Failure; AIDS / HIV positive; Severe Sepsis due to PNA Interval history: Patient is seen today for: Acute Hypoxemic Respiratory Failure on MVS; AIDS / HIV positive; Severe Sepsis due to Pneumonia; Hyponatremia; Severe metabolic acidosis Seen and examined at bedside; 24hour events reviewed; nursing and respiratory care staff consulted; no adverse overnight events reported to me; remains on MVS; family visiting; remains on MVS; on 100% FiO2 overnight but room to wean; off vasopressors currently; tolerating tube feeds; NO N/V/F/C Objective Vital Signs - 12hr 07/08/18 07/08/18 07/08/18 03:30 04:00 04:30 Temperature 99.4 F Pulse Rate 96 H 111 H 110 H Pulse Rate [ Anterior Bilateral Throughout] Pulse Rate [ 112 H Apical] Pulse Rate [ Bilateral] Respiratory Rate Respiratory Rate [Anterior Bilateral Throughout] Respiratory Rate [Bilateral ] Blood Pressure 104/50 101/51 121/62 O2 Sat by Pulse 98 98 98 Oximetry 07/08/18 07/08/18 07/08/18 05:00 05:01 05:30 Temperature Pulse Rate 114 H 114 H Pulse Rate [ 108 H Anterior Bilateral Throughout] Pulse Rate [ Apical] Pulse Rate [ 114 H Bilateral] Respiratory Rate Respiratory 30 H Rate [Anterior Bilateral Throughout] Respiratory 31 H Rate [Bilateral ] Blood Pressure 106/63 107/62 O2 Sat by Pulse 95 89 Oximetry 07/08/18 07/08/18 07/08/18 06:00 06:30 07:00 Temperature Pulse Rate 109 H 116 H 113 H Pulse Rate [ Anterior Bilateral Throughout] Pulse Rate [ Apical] Pulse Rate [ Bilateral] Respiratory Rate Respiratory Rate [Anterior Bilateral Throughout] Respiratory Rate [Bilateral ] Blood Pressure 105/60 113/62 115/59 O2 Sat by Pulse 91 94 92 Oximetry 07/08/18 07/08/18 07/08/18 07:30 08:00 08:05 Temperature 100.6 F H Pulse Rate 117 H 117 H 118 H Pulse Rate [ Anterior Bilateral Throughout] Pulse Rate [ Apical] Pulse Rate [ Bilateral] Respiratory Rate Respiratory Rate [Anterior Bilateral Throughout] Respiratory Rate [Bilateral ] Blood Pressure 121/59 119/56 119/56 O2 Sat by Pulse 95 99 94 Oximetry 07/08/18 07/08/18 07/08/18 08:08 08:30 09:00 Temperature Pulse Rate 111 H 127 H Pulse Rate [ Anterior Bilateral Throughout] Pulse Rate [ Apical] Pulse Rate [ 118 H Bilateral] Respiratory Rate Respiratory Rate [Anterior Bilateral Throughout] Respiratory 33 H Rate [Bilateral ] Blood Pressure 112/61 117/62 O2 Sat by Pulse 94 94 Oximetry 07/08/18 07/08/18 07/08/18 09:30 10:00 10:30 Temperature Pulse Rate 117 H 118 H 116 H Pulse Rate [ Anterior Bilateral Throughout] Pulse Rate [ Apical] Pulse Rate [ Bilateral] Respiratory Rate Respiratory Rate [Anterior Bilateral Throughout] Respiratory Rate [Bilateral ] Blood Pressure 103/56 107/59 100/53 O2 Sat by Pulse 98 100 100 Oximetry 07/08/18 07/08/18 07/08/18 11:00 12:45 14:55 Temperature 99.6 F Pulse Rate 115 H 107 H 110 H Pulse Rate [ Anterior Bilateral Throughout] Pulse Rate [ Apical] Pulse Rate [ Bilateral] Respiratory 34 H Rate Respiratory Rate [Anterior Bilateral Throughout] Respiratory Rate [Bilateral ] Blood Pressure 103/59 119/59 116/60 O2 Sat by Pulse 100 98 90 Oximetry Constitutional: appears uncomfortable, other (young HM normocephalic and atraumatic with moderately increased respiratory effort at rest) Eyes: non-icteric ENT: oropharynx moist, other (ETT 23 cm SATISH) Neck: supple, no lymphadenopathy, no JVD, other (no thyromegaly) Effort: mildly labored Ascultation: Bilateral: diminished breath sounds, rhonchi Percussion: Bilateral: not dull Cardiovascular: regular rate and rhythm Gastrointestinal: normoactive bowel sounds, soft, non-tender, non-distended Integumentary: rash Extremities: no cyanosis, pink and warm, pulses normal, no ischemia or petechiae, edema (trace) Neurologic: non-focal exam (grossly), pupils equal and round, motor strength normal and, unable to assess Psychiatric: other (unable to assess) CBC and BMP: 07/08/18 05:00 07/08/18 05:00 ABG, PT/INR, D-dimer: ABG POC ABG pH 7.279 (7.35-7.45) L 07/08/18 04:05 POC ABG pCO2 100.4 (35-45) H 07/08/18 04:05 POC ABG pO2 134 (80-105) H 07/08/18 04:05 POC ABG HCO3 47.0 07/08/18 04:05 POC ABG Total CO2 > 50 07/08/18 04:05 POC ABG O2 Sat 98 07/08/18 04:05 PT/INR, D-dimer PT 14.3 Sec. (12.2-14.9) 07/01/18 09:11 INR 1.05 (0.87-1.13) 07/01/18 09:11 D-Dimer 2387.14 ng/mlDDU (0-234) H 07/01/18 10:00 Abnormal lab findings: Abnormal Labs 0206/19/18 06/19/18 03:31 07:11 07:42 WBC RBC Hgb Hct MCV MCHC RDW Plt Count Seg Neuts % (Manual) Lymphocytes % (Manual) Nucleated RBC % Seg Neutrophils # Man Abs Lymphs (Manual) 409 L Lymphocytes # (Manual) PT INR D-Dimer POC ABG pH 6.974 L POC ABG pCO2 22.0 L 83.4 H POC ABG pO2 28 L 122 H Sodium Potassium Chloride Carbon Dioxide BUN Creatinine Glucose POC Glucose Hemoglobin A1c Calcium AST ALT C-Reactive Protein Total Protein Albumin Triglycerides Ur Specific [place] Urine WBC (Auto) Urine Creatinine Urine Total Protein Lymph Enumerat CD4/CD8 0.05 L % CD3 Cells 45 L Absolute CD3 Count 185 L % CD4 Cells 2 L Absolute CD4 Count 10 L % CD8 Cells 43 H Absolute CD8 Count 167 L Absolute CD19 Count 79 L HIV DNA Qual (PCR) HIV-1 RNA PCR copies/ml HIV-1 RNA (PCR) log Miscellaneous Test Crossmatch 06/19/18 06/19/18 06/19/18 08:07 08:16 09:20 WBC RBC Hgb Hct MCV MCHC RDW Plt Count Seg Neuts % (Manual) Lymphocytes % (Manual) Nucleated RBC % Seg Neutrophils # Man Abs Lymphs (Manual) Lymphocytes # (Manual) PT INR D-Dimer POC ABG pH 6.996 L POC ABG pCO2 82.4 H POC ABG pO2 Sodium Potassium Chloride Carbon Dioxide BUN Creatinine Glucose POC Glucose Hemoglobin A1c Calcium AST ALT C-Reactive Protein Total Protein Albumin Triglycerides Ur Specific [place] 1.060 H Urine WBC (Auto) 8.0 H Urine Creatinine Urine Total Protein Lymph Enumerat CD4/CD8 % CD3 Cells Absolute CD3 Count % CD4 Cells Absolute CD4 Count % CD8 Cells Absolute CD8 Count Absolute CD19 Count HIV DNA Qual (PCR) Detected H HIV-1 RNA PCR copies/ml HIV-1 RNA (PCR) log Miscellaneous Test Crossmatch 06/19/18 06/19/18 06/19/18 09:49 11:15 15:16 WBC RBC Hgb Hct MCV MCHC RDW Plt Count Seg Neuts % (Manual) Lymphocytes % (Manual) Nucleated RBC % Seg Neutrophils # Man Abs Lymphs (Manual) Lymphocytes # (Manual) PT INR D-Dimer POC ABG pH 7.198 L 7.206 L POC ABG pCO2 POC ABG pO2 75 L Sodium Potassium Chloride Carbon Dioxide BUN Creatinine Glucose POC Glucose Hemoglobin A1c Calcium AST ALT C-Reactive Protein Total Protein Albumin Triglycerides Ur Specific [place] Urine WBC (Auto) Urine Creatinine Urine Total Protein Lymph Enumerat CD4/CD8 % CD3 Cells Absolute CD3 Count % CD4 Cells Absolute CD4 Count % CD8 Cells Absolute CD8 Count Absolute CD19 Count HIV DNA Qual (PCR) HIV-1 RNA PCR copies/ml 7632179 H HIV-1 RNA (PCR) log 6.11 H Miscellaneous Test Crossmatch 06/19/18 06/19/18 06/19/18 18:54 Unknown Unknown WBC 12.9 H RBC Hgb Hct MCV MCHC RDW Plt Count Seg Neuts % (Manual) Lymphocytes % (Manual) 5.0 L Nucleated RBC % Seg Neutrophils # Man Abs Lymphs (Manual) Lymphocytes # (Manual) 0.6 L PT 15.9 H INR 1.19 H D-Dimer 8449.09 H POC ABG pH POC ABG pCO2 POC ABG pO2 Sodium Potassium Chloride Carbon Dioxide BUN Creatinine Glucose POC Glucose 196 H Hemoglobin A1c Calcium AST ALT C-Reactive Protein Total Protein Albumin Triglycerides Ur Specific [place] Urine WBC (Auto) Urine Creatinine Urine Total Protein Lymph Enumerat CD4/CD8 % CD3 Cells Absolute CD3 Count % CD4 Cells Absolute CD4 Count % CD8 Cells Absolute CD8 Count Absolute CD19 Count HIV DNA Qual (PCR) HIV-1 RNA PCR copies/ml HIV-1 RNA (PCR) log Miscellaneous Test Crossmatch 06/19/18 06/19/18 06/20/18 Unknown Unknown 04:33 WBC RBC Hgb Hct MCV MCHC RDW Plt Count Seg Neuts % (Manual) Lymphocytes % (Manual) Nucleated RBC % Seg Neutrophils # Man Abs Lymphs (Manual) Lymphocytes # (Manual) PT INR D-Dimer POC ABG pH 7.249 L POC ABG pCO2 POC ABG pO2 118 H Sodium 129 L Potassium Chloride 90.7 L Carbon Dioxide 17 L BUN Creatinine 0.6 L Glucose 199 H POC Glucose Hemoglobin A1c Calcium 8.1 L AST 53 H ALT C-Reactive Protein Total Protein 6.0 L Albumin 2.8 L Triglycerides Ur Specific [place] Urine WBC (Auto) Urine Creatinine Urine Total Protein Lymph Enumerat CD4/CD8 % CD3 Cells Absolute CD3 Count % CD4 Cells Absolute CD4 Count % CD8 Cells Absolute CD8 Count Absolute CD19 Count HIV DNA Qual (PCR) HIV-1 RNA PCR copies/ml HIV-1 RNA (PCR) log Miscellaneous Test Crossmatch 06/20/18 06/20/18 06/20/18 08:13 08:13 12:59 WBC 11.8 H RBC 3.25 L Hgb 9.8 L D Hct 30.4 L D MCV MCHC RDW Plt Count Seg Neuts % (Manual) 99.0 H Lymphocytes % (Manual) 1.0 L Nucleated RBC % Seg Neutrophils # Man 11.7 H Abs Lymphs (Manual) Lymphocytes # (Manual) 0.1 L PT INR D-Dimer POC ABG pH POC ABG pCO2 POC ABG pO2 Sodium Potassium Chloride Carbon Dioxide 19 L BUN Creatinine Glucose 223 H POC Glucose 174 H Hemoglobin A1c Calcium 6.6 L D AST 1240 H ALT 836 H C-Reactive Protein Total Protein 4.9 L Albumin 2.1 L Triglycerides Ur Specific [place] Urine WBC (Auto) Urine Creatinine Urine Total Protein Lymph Enumerat CD4/CD8 % CD3 Cells Absolute CD3 Count % CD4 Cells Absolute CD4 Count % CD8 Cells Absolute CD8 Count Absolute CD19 Count HIV DNA Qual (PCR) HIV-1 RNA PCR copies/ml HIV-1 RNA (PCR) log Miscellaneous Test Crossmatch 06/20/18 06/20/18 06/21/18 17:42 23:44 04:08 WBC RBC Hgb Hct MCV MCHC RDW Plt Count Seg Neuts % (Manual) Lymphocytes % (Manual) Nucleated RBC % Seg Neutrophils # Man Abs Lymphs (Manual) Lymphocytes # (Manual) PT INR D-Dimer POC ABG pH 7.309 L POC ABG pCO2 POC ABG pO2 Sodium Potassium Chloride Carbon Dioxide BUN Creatinine Glucose POC Glucose 177 H 195 H Hemoglobin A1c Calcium AST ALT C-Reactive Protein Total Protein Albumin Triglycerides Ur Specific [place] Urine WBC (Auto) Urine Creatinine Urine Total Protein Lymph Enumerat CD4/CD8 % CD3 Cells Absolute CD3 Count % CD4 Cells Absolute CD4 Count % CD8 Cells Absolute CD8 Count Absolute CD19 Count HIV DNA Qual (PCR) HIV-1 RNA PCR copies/ml HIV-1 RNA (PCR) log Miscellaneous Test Crossmatch 06/21/18 06/21/18 06/21/18 04:19 04:19 05:27 WBC 13.8 H RBC 3.02 L Hgb 9.2 L Hct 28.0 L MCV MCHC RDW Plt Count Seg Neuts % (Manual) Lymphocytes % (Manual) Nucleated RBC % Seg Neutrophils # Man Abs Lymphs (Manual) Lymphocytes # (Manual) PT INR D-Dimer POC ABG pH POC ABG pCO2 POC ABG pO2 Sodium 135 L Potassium Chloride Carbon Dioxide 21 L BUN Creatinine 0.7 L Glucose 161 H POC Glucose 187 H Hemoglobin A1c Calcium 7.2 L AST 390 H ALT 622 H C-Reactive Protein Total Protein 5.3 L Albumin 2.4 L Triglycerides Ur Specific [place] Urine WBC (Auto) Urine Creatinine Urine Total Protein Lymph Enumerat CD4/CD8 % CD3 Cells Absolute CD3 Count % CD4 Cells Absolute CD4 Count % CD8 Cells Absolute CD8 Count Absolute CD19 Count HIV DNA Qual (PCR) HIV-1 RNA PCR copies/ml HIV-1 RNA (PCR) log Miscellaneous Test Crossmatch 06/21/18 06/21/18 06/21/18 11:33 12:32 17:45 WBC RBC Hgb Hct MCV MCHC RDW Plt Count Seg Neuts % (Manual) Lymphocytes % (Manual) Nucleated RBC % Seg Neutrophils # Man Abs Lymphs (Manual) Lymphocytes # (Manual) PT INR D-Dimer POC ABG pH POC ABG pCO2 POC ABG pO2 Sodium Potassium Chloride Carbon Dioxide BUN Creatinine Glucose POC Glucose 147 H 172 H Hemoglobin A1c Calcium AST ALT C-Reactive Protein Total Protein Albumin Triglycerides Ur Specific [place] Urine WBC (Auto) Urine Creatinine Urine Total Protein Lymph Enumerat CD4/CD8 % CD3 Cells Absolute CD3 Count % CD4 Cells Absolute CD4 Count % CD8 Cells Absolute CD8 Count Absolute CD19 Count HIV DNA Qual (PCR) HIV-1 RNA PCR copies/ml HIV-1 RNA (PCR) log Miscellaneous Test see below H Crossmatch 06/21/18 06/22/18 06/22/18 23:25 04:47 04:47 WBC 11.5 H RBC 2.93 L Hgb 9.0 L Hct 26.5 L MCV MCHC RDW Plt Count Seg Neuts % (Manual) Lymphocytes % (Manual) Nucleated RBC % Seg Neutrophils # Man Abs Lymphs (Manual) Lymphocytes # (Manual) PT INR D-Dimer POC ABG pH POC ABG pCO2 POC ABG pO2 Sodium Potassium Chloride Carbon Dioxide BUN 22 H Creatinine Glucose 201 H POC Glucose 152 H Hemoglobin A1c Calcium 7.8 L AST 129 H ALT 416 H C-Reactive Protein Total Protein 5.3 L Albumin 2.4 L Triglycerides Ur Specific [place] Urine WBC (Auto) Urine Creatinine Urine Total Protein Lymph Enumerat CD4/CD8 % CD3 Cells Absolute CD3 Count % CD4 Cells Absolute CD4 Count % CD8 Cells Absolute CD8 Count Absolute CD19 Count HIV DNA Qual (PCR) HIV-1 RNA PCR copies/ml HIV-1 RNA (PCR) log Miscellaneous Test Crossmatch 06/22/18 06/22/18 06/22/18 05:23 11:43 17:45 WBC RBC Hgb Hct MCV MCHC RDW Plt Count Seg Neuts % (Manual) Lymphocytes % (Manual) Nucleated RBC % Seg Neutrophils # Man Abs Lymphs (Manual) Lymphocytes # (Manual) PT INR D-Dimer POC ABG pH POC ABG pCO2 POC ABG pO2 Sodium Potassium Chloride Carbon Dioxide BUN Creatinine Glucose POC Glucose 170 H 175 H 176 H Hemoglobin A1c Calcium AST ALT C-Reactive Protein Total Protein Albumin Triglycerides Ur Specific [place] Urine WBC (Auto) Urine Creatinine Urine Total Protein Lymph Enumerat CD4/CD8 % CD3 Cells Absolute CD3 Count % CD4 Cells Absolute CD4 Count % CD8 Cells Absolute CD8 Count Absolute CD19 Count HIV DNA Qual (PCR) HIV-1 RNA PCR copies/ml HIV-1 RNA (PCR) log Miscellaneous Test Crossmatch 06/23/18 06/23/18 06/23/18 00:24 05:06 05:11 WBC 11.2 H RBC 2.78 L Hgb 8.6 L Hct 25.3 L MCV MCHC RDW Plt Count Seg Neuts % (Manual) Lymphocytes % (Manual) Nucleated RBC % Seg Neutrophils # Man Abs Lymphs (Manual) Lymphocytes # (Manual) PT INR D-Dimer POC ABG pH POC ABG pCO2 POC ABG pO2 Sodium Potassium Chloride Carbon Dioxide BUN Creatinine Glucose POC Glucose 178 H 182 H Hemoglobin A1c Calcium AST ALT C-Reactive Protein Total Protein Albumin Triglycerides Ur Specific [place] Urine WBC (Auto) Urine Creatinine Urine Total Protein Lymph Enumerat CD4/CD8 % CD3 Cells Absolute CD3 Count % CD4 Cells Absolute CD4 Count % CD8 Cells Absolute CD8 Count Absolute CD19 Count HIV DNA Qual (PCR) HIV-1 RNA PCR copies/ml HIV-1 RNA (PCR) log Miscellaneous Test Crossmatch 06/23/18 06/23/18 06/23/18 05:11 05:51 12:21 WBC RBC Hgb Hct MCV MCHC RDW Plt Count Seg Neuts % (Manual) Lymphocytes % (Manual) Nucleated RBC % Seg Neutrophils # Man Abs Lymphs (Manual) Lymphocytes # (Manual) PT INR D-Dimer POC ABG pH POC ABG pCO2 POC ABG pO2 69 L Sodium Potassium Chloride Carbon Dioxide BUN 34 H Creatinine 1.7 H D Glucose 191 H POC Glucose 181 H Hemoglobin A1c Calcium 7.5 L AST 63 H ALT 297 H C-Reactive Protein Total Protein 5.3 L Albumin 2.4 L Triglycerides Ur Specific [place] Urine WBC (Auto) Urine Creatinine Urine Total Protein Lymph Enumerat CD4/CD8 % CD3 Cells Absolute CD3 Count % CD4 Cells Absolute CD4 Count % CD8 Cells Absolute CD8 Count Absolute CD19 Count HIV DNA Qual (PCR) HIV-1 RNA PCR copies/ml HIV-1 RNA (PCR) log Miscellaneous Test Crossmatch 06/23/18 06/23/18 06/23/18 13:57 17:00 18:40 WBC RBC Hgb Hct MCV MCHC RDW Plt Count Seg Neuts % (Manual) Lymphocytes % (Manual) Nucleated RBC % Seg Neutrophils # Man Abs Lymphs (Manual) Lymphocytes # (Manual) PT INR D-Dimer POC ABG pH POC ABG pCO2 POC ABG pO2 Sodium Potassium Chloride Carbon Dioxide BUN 38 H Creatinine 1.8 H Glucose POC Glucose 196 H Hemoglobin A1c Calcium AST ALT C-Reactive Protein 1.60 H Total Protein Albumin Triglycerides Ur Specific [place] Urine WBC (Auto) Urine Creatinine Urine Total Protein Lymph Enumerat CD4/CD8 % CD3 Cells Absolute CD3 Count % CD4 Cells Absolute CD4 Count % CD8 Cells Absolute CD8 Count Absolute CD19 Count HIV DNA Qual (PCR) HIV-1 RNA PCR copies/ml HIV-1 RNA (PCR) log Miscellaneous Test Crossmatch 06/23/18 06/23/18 06/24/18 21:16 23:22 04:12 WBC RBC 2.89 L Hgb 8.8 L Hct 26.9 L MCV MCHC RDW Plt Count Seg Neuts % (Manual) Lymphocytes % (Manual) Nucleated RBC % Seg Neutrophils # Man Abs Lymphs (Manual) Lymphocytes # (Manual) PT INR D-Dimer POC ABG pH 7.311 L POC ABG pCO2 47.4 H POC ABG pO2 Sodium Potassium Chloride Carbon Dioxide BUN Creatinine Glucose POC Glucose 165 H Hemoglobin A1c Calcium AST ALT C-Reactive Protein Total Protein Albumin Triglycerides Ur Specific [place] Urine WBC (Auto) Urine Creatinine Urine Total Protein Lymph Enumerat CD4/CD8 % CD3 Cells Absolute CD3 Count % CD4 Cells Absolute CD4 Count % CD8 Cells Absolute CD8 Count Absolute CD19 Count HIV DNA Qual (PCR) HIV-1 RNA PCR copies/ml HIV-1 RNA (PCR) log Miscellaneous Test Crossmatch 06/24/18 06/24/18 06/24/18 04:12 04:46 05:24 WBC RBC Hgb Hct MCV MCHC RDW Plt Count Seg Neuts % (Manual) Lymphocytes % (Manual) Nucleated RBC % Seg Neutrophils # Man Abs Lymphs (Manual) Lymphocytes # (Manual) PT INR D-Dimer POC ABG pH 7.250 L POC ABG pCO2 55.8 H POC ABG pO2 Sodium Potassium 5.4 H Chloride Carbon Dioxide BUN 44 H Creatinine 2.2 H Glucose 206 H POC Glucose 183 H Hemoglobin A1c Calcium 7.5 L AST ALT C-Reactive Protein Total Protein Albumin Triglycerides Ur Specific [place] Urine WBC (Auto) Urine Creatinine Urine Total Protein Lymph Enumerat CD4/CD8 % CD3 Cells Absolute CD3 Count % CD4 Cells Absolute CD4 Count % CD8 Cells Absolute CD8 Count Absolute CD19 Count HIV DNA Qual (PCR) HIV-1 RNA PCR copies/ml HIV-1 RNA (PCR) log Miscellaneous Test Crossmatch 06/24/18 06/24/18 06/24/18 11:14 16:40 17:16 WBC RBC Hgb Hct MCV MCHC RDW Plt Count Seg Neuts % (Manual) Lymphocytes % (Manual) Nucleated RBC % Seg Neutrophils # Man Abs Lymphs (Manual) Lymphocytes # (Manual) PT INR D-Dimer POC ABG pH 7.067 L POC ABG pCO2 91.7 H POC ABG pO2 134 H Sodium Potassium Chloride Carbon Dioxide BUN Creatinine Glucose POC Glucose 151 H 195 H Hemoglobin A1c Calcium AST ALT C-Reactive Protein Total Protein Albumin Triglycerides Ur Specific [place] Urine WBC (Auto) Urine Creatinine Urine Total Protein Lymph Enumerat CD4/CD8 % CD3 Cells Absolute CD3 Count % CD4 Cells Absolute CD4 Count % CD8 Cells Absolute CD8 Count Absolute CD19 Count HIV DNA Qual (PCR) HIV-1 RNA PCR copies/ml HIV-1 RNA (PCR) log Miscellaneous Test Crossmatch 06/24/18 06/24/18 06/24/18 18:03 22:45 22:45 WBC RBC Hgb Hct MCV MCHC RDW Plt Count Seg Neuts % (Manual) Lymphocytes % (Manual) Nucleated RBC % Seg Neutrophils # Man Abs Lymphs (Manual) Lymphocytes # (Manual) PT INR D-Dimer POC ABG pH 7.234 L POC ABG pCO2 59.9 H POC ABG pO2 121 H Sodium Potassium Chloride Carbon Dioxide BUN Creatinine Glucose POC Glucose Hemoglobin A1c Calcium AST ALT C-Reactive Protein Total Protein Albumin Triglycerides Ur Specific [place] Urine WBC (Auto) 9.0 H Urine Creatinine 47.2 H Urine Total Protein 25 H Lymph Enumerat CD4/CD8 % CD3 Cells Absolute CD3 Count % CD4 Cells Absolute CD4 Count % CD8 Cells Absolute CD8 Count Absolute CD19 Count HIV DNA Qual (PCR) HIV-1 RNA PCR copies/ml HIV-1 RNA (PCR) log Miscellaneous Test Crossmatch 06/24/18 06/24/18 06/25/18 Unknown 23:59 04:36 WBC RBC Hgb Hct MCV MCHC RDW Plt Count Seg Neuts % (Manual) Lymphocytes % (Manual) Nucleated RBC % Seg Neutrophils # Man Abs Lymphs (Manual) Lymphocytes # (Manual) PT 15.6 H INR 1.17 H D-Dimer POC ABG pH 7.200 L POC ABG pCO2 65.3 H POC ABG pO2 Sodium Potassium Chloride Carbon Dioxide BUN Creatinine Glucose POC Glucose 233 H Hemoglobin A1c Calcium AST ALT C-Reactive Protein Total Protein Albumin Triglycerides Ur Specific [place] Urine WBC (Auto) Urine Creatinine Urine Total Protein Lymph Enumerat CD4/CD8 % CD3 Cells Absolute CD3 Count % CD4 Cells Absolute CD4 Count % CD8 Cells Absolute CD8 Count Absolute CD19 Count HIV DNA Qual (PCR) HIV-1 RNA PCR copies/ml HIV-1 RNA (PCR) log Miscellaneous Test Crossmatch 06/25/18 06/25/18 06/25/18 05:29 11:12 11:40 WBC RBC 2.67 L Hgb 8.5 L Hct 25.6 L MCV 96 H MCHC RDW 16.0 H Plt Count Seg Neuts % (Manual) Lymphocytes % (Manual) Nucleated RBC % Seg Neutrophils # Man Abs Lymphs (Manual) Lymphocytes # (Manual) PT INR D-Dimer POC ABG pH POC ABG pCO2 POC ABG pO2 Sodium Potassium Chloride Carbon Dioxide BUN Creatinine Glucose POC Glucose 212 H 244 H Hemoglobin A1c Calcium AST ALT C-Reactive Protein Total Protein Albumin Triglycerides Ur Specific [place] Urine WBC (Auto) Urine Creatinine Urine Total Protein Lymph Enumerat CD4/CD8 % CD3 Cells Absolute CD3 Count % CD4 Cells Absolute CD4 Count % CD8 Cells Absolute CD8 Count Absolute CD19 Count HIV DNA Qual (PCR) HIV-1 RNA PCR copies/ml HIV-1 RNA (PCR) log Miscellaneous Test Crossmatch 06/25/18 06/25/18 06/25/18 11:40 17:18 18:08 WBC RBC Hgb Hct MCV MCHC RDW Plt Count Seg Neuts % (Manual) Lymphocytes % (Manual) Nucleated RBC % Seg Neutrophils # Man Abs Lymphs (Manual) Lymphocytes # (Manual) PT INR D-Dimer POC ABG pH 7.206 L POC ABG pCO2 68.1 H POC ABG pO2 Sodium Potassium 5.8 H Chloride Carbon Dioxide BUN 48 H Creatinine 2.1 H Glucose 293 H POC Glucose 264 H Hemoglobin A1c Calcium 7.5 L AST ALT C-Reactive Protein Total Protein Albumin Triglycerides Ur Specific [place] Urine WBC (Auto) Urine Creatinine Urine Total Protein Lymph Enumerat CD4/CD8 % CD3 Cells Absolute CD3 Count % CD4 Cells Absolute CD4 Count % CD8 Cells Absolute CD8 Count Absolute CD19 Count HIV DNA Qual (PCR) HIV-1 RNA PCR copies/ml HIV-1 RNA (PCR) log Miscellaneous Test Crossmatch 06/25/18 06/25/18 06/26/18 21:20 23:59 05:10 WBC RBC Hgb Hct MCV MCHC RDW Plt Count Seg Neuts % (Manual) Lymphocytes % (Manual) Nucleated RBC % Seg Neutrophils # Man Abs Lymphs (Manual) Lymphocytes # (Manual) PT INR D-Dimer POC ABG pH 7.220 L POC ABG pCO2 65.0 H POC ABG pO2 71 L Sodium Potassium Chloride Carbon Dioxide BUN Creatinine Glucose POC Glucose 231 H 259 H Hemoglobin A1c Calcium AST ALT C-Reactive Protein Total Protein Albumin Triglycerides Ur Specific [place] Urine WBC (Auto) Urine Creatinine Urine Total Protein Lymph Enumerat CD4/CD8 % CD3 Cells Absolute CD3 Count % CD4 Cells Absolute CD4 Count % CD8 Cells Absolute CD8 Count Absolute CD19 Count HIV DNA Qual (PCR) HIV-1 RNA PCR copies/ml HIV-1 RNA (PCR) log Miscellaneous Test Crossmatch 06/26/18 06/26/18 06/26/18 05:29 07:25 07:25 WBC 12.0 H RBC 2.69 L Hgb 8.2 L Hct 25.5 L MCV 95 H MCHC RDW 15.7 H Plt Count Seg Neuts % (Manual) Lymphocytes % (Manual) Nucleated RBC % Seg Neutrophils # Man Abs Lymphs (Manual) Lymphocytes # (Manual) PT INR D-Dimer POC ABG pH 7.240 L POC ABG pCO2 67.6 H POC ABG pO2 106 H Sodium Potassium 5.2 H Chloride Carbon Dioxide BUN 58 H Creatinine 1.9 H Glucose 219 H POC Glucose Hemoglobin A1c Calcium 7.9 L AST ALT C-Reactive Protein Total Protein Albumin Triglycerides Ur Specific [place] Urine WBC (Auto) Urine Creatinine Urine Total Protein Lymph Enumerat CD4/CD8 % CD3 Cells Absolute CD3 Count % CD4 Cells Absolute CD4 Count % CD8 Cells Absolute CD8 Count Absolute CD19 Count HIV DNA Qual (PCR) HIV-1 RNA PCR copies/ml HIV-1 RNA (PCR) log Miscellaneous Test Crossmatch 06/26/18 06/26/18 06/26/18 07:25 12:49 17:42 WBC RBC Hgb Hct MCV MCHC RDW Plt Count Seg Neuts % (Manual) Lymphocytes % (Manual) Nucleated RBC % Seg Neutrophils # Man Abs Lymphs (Manual) Lymphocytes # (Manual) PT INR D-Dimer POC ABG pH 7.178 L POC ABG pCO2 73.6 H POC ABG pO2 77 L Sodium Potassium Chloride Carbon Dioxide BUN Creatinine Glucose POC Glucose 276 H Hemoglobin A1c Calcium AST ALT C-Reactive Protein Total Protein Albumin Triglycerides 174 H Ur Specific [place] Urine WBC (Auto) Urine Creatinine Urine Total Protein Lymph Enumerat CD4/CD8 % CD3 Cells Absolute CD3 Count % CD4 Cells Absolute CD4 Count % CD8 Cells Absolute CD8 Count Absolute CD19 Count HIV DNA Qual (PCR) HIV-1 RNA PCR copies/ml HIV-1 RNA (PCR) log Miscellaneous Test Crossmatch 06/26/18 06/26/18 06/26/18 18:25 21:24 23:22 WBC RBC Hgb Hct MCV MCHC RDW Plt Count Seg Neuts % (Manual) Lymphocytes % (Manual) Nucleated RBC % Seg Neutrophils # Man Abs Lymphs (Manual) Lymphocytes # (Manual) PT INR D-Dimer POC ABG pH 7.152 L POC ABG pCO2 80.6 H POC ABG pO2 Sodium Potassium Chloride Carbon Dioxide BUN Creatinine Glucose POC Glucose 304 H 282 H Hemoglobin A1c Calcium AST ALT C-Reactive Protein Total Protein Albumin Triglycerides Ur Specific [place] Urine WBC (Auto) Urine Creatinine Urine Total Protein Lymph Enumerat CD4/CD8 % CD3 Cells Absolute CD3 Count % CD4 Cells Absolute CD4 Count % CD8 Cells Absolute CD8 Count Absolute CD19 Count HIV DNA Qual (PCR) HIV-1 RNA PCR copies/ml HIV-1 RNA (PCR) log Miscellaneous Test Crossmatch 06/27/18 06/27/18 06/27/18 04:05 05:15 05:15 WBC RBC Hgb Hct MCV MCHC RDW Plt Count Seg Neuts % (Manual) Lymphocytes % (Manual) Nucleated RBC % Seg Neutrophils # Man Abs Lymphs (Manual) Lymphocytes # (Manual) PT INR D-Dimer POC ABG pH 7.266 L POC ABG pCO2 62.8 H POC ABG pO2 Sodium Potassium 5.5 H Chloride Carbon Dioxide BUN 73 H Creatinine 2.1 H Glucose 211 H POC Glucose Hemoglobin A1c Calcium 7.7 L AST ALT C-Reactive Protein Total Protein Albumin Triglycerides Ur Specific [place] Urine WBC (Auto) Urine Creatinine Urine Total Protein Lymph Enumerat CD4/CD8 % CD3 Cells Absolute CD3 Count % CD4 Cells Absolute CD4 Count % CD8 Cells Absolute CD8 Count Absolute CD19 Count HIV DNA Qual (PCR) HIV-1 RNA PCR copies/ml HIV-1 RNA (PCR) log Miscellaneous Test Flexitest 1 H Crossmatch 06/27/18 06/27/18 06/27/18 05:15 05:52 13:10 WBC RBC 2.41 L Hgb 7.6 L Hct 22.4 L MCV MCHC RDW Plt Count Seg Neuts % (Manual) Lymphocytes % (Manual) Nucleated RBC % Seg Neutrophils # Man Abs Lymphs (Manual) Lymphocytes # (Manual) PT INR D-Dimer POC ABG pH POC ABG pCO2 POC ABG pO2 Sodium Potassium Chloride Carbon Dioxide BUN Creatinine Glucose POC Glucose 198 H 238 H Hemoglobin A1c Calcium AST ALT C-Reactive Protein Total Protein Albumin Triglycerides Ur Specific [place] Urine WBC (Auto) Urine Creatinine Urine Total Protein Lymph Enumerat CD4/CD8 % CD3 Cells Absolute CD3 Count % CD4 Cells Absolute CD4 Count % CD8 Cells Absolute CD8 Count Absolute CD19 Count HIV DNA Qual (PCR) HIV-1 RNA PCR copies/ml HIV-1 RNA (PCR) log Miscellaneous Test Crossmatch 06/27/18 06/27/18 06/27/18 16:12 17:51 23:22 WBC RBC Hgb Hct MCV MCHC RDW Plt Count Seg Neuts % (Manual) Lymphocytes % (Manual) Nucleated RBC % Seg Neutrophils # Man Abs Lymphs (Manual) Lymphocytes # (Manual) PT INR D-Dimer POC ABG pH POC ABG pCO2 POC ABG pO2 Sodium Potassium Chloride Carbon Dioxide BUN Creatinine Glucose POC Glucose 174 H 162 H 171 H Hemoglobin A1c Calcium AST ALT C-Reactive Protein Total Protein Albumin Triglycerides Ur Specific [place] Urine WBC (Auto) Urine Creatinine Urine Total Protein Lymph Enumerat CD4/CD8 % CD3 Cells Absolute CD3 Count % CD4 Cells Absolute CD4 Count % CD8 Cells Absolute CD8 Count Absolute CD19 Count HIV DNA Qual (PCR) HIV-1 RNA PCR copies/ml HIV-1 RNA (PCR) log Miscellaneous Test Crossmatch 06/28/18 06/28/18 06/28/18 04:36 04:54 05:10 WBC RBC Hgb Hct MCV MCHC RDW Plt Count Seg Neuts % (Manual) Lymphocytes % (Manual) Nucleated RBC % Seg Neutrophils # Man Abs Lymphs (Manual) Lymphocytes # (Manual) PT INR D-Dimer POC ABG pH 7.257 L POC ABG pCO2 68.8 H POC ABG pO2 Sodium Potassium Chloride Carbon Dioxide BUN 93 H Creatinine 2.4 H Glucose 186 H POC Glucose 193 H Hemoglobin A1c Calcium 8.3 L AST ALT C-Reactive Protein Total Protein Albumin Triglycerides Ur Specific [place] Urine WBC (Auto) Urine Creatinine Urine Total Protein Lymph Enumerat CD4/CD8 % CD3 Cells Absolute CD3 Count % CD4 Cells Absolute CD4 Count % CD8 Cells Absolute CD8 Count Absolute CD19 Count HIV DNA Qual (PCR) HIV-1 RNA PCR copies/ml HIV-1 RNA (PCR) log Miscellaneous Test Crossmatch 06/28/18 06/28/18 06/28/18 12:15 17:43 18:26 WBC RBC Hgb Hct MCV MCHC RDW Plt Count Seg Neuts % (Manual) Lymphocytes % (Manual) Nucleated RBC % Seg Neutrophils # Man Abs Lymphs (Manual) Lymphocytes # (Manual) PT INR D-Dimer POC ABG pH 7.123 L POC ABG pCO2 82.7 H POC ABG pO2 Sodium Potassium Chloride Carbon Dioxide BUN Creatinine Glucose POC Glucose 154 H 194 H Hemoglobin A1c Calcium AST ALT C-Reactive Protein Total Protein Albumin Triglycerides Ur Specific [place] Urine WBC (Auto) Urine Creatinine Urine Total Protein Lymph Enumerat CD4/CD8 % CD3 Cells Absolute CD3 Count % CD4 Cells Absolute CD4 Count % CD8 Cells Absolute CD8 Count Absolute CD19 Count HIV DNA Qual (PCR) HIV-1 RNA PCR copies/ml HIV-1 RNA (PCR) log Miscellaneous Test Crossmatch 06/28/18 06/29/18 06/29/18 22:08 00:12 04:38 WBC RBC Hgb Hct MCV MCHC RDW Plt Count Seg Neuts % (Manual) Lymphocytes % (Manual) Nucleated RBC % Seg Neutrophils # Man Abs Lymphs (Manual) Lymphocytes # (Manual) PT INR D-Dimer POC ABG pH 7.172 L 7.158 L POC ABG pCO2 80.4 H 76.6 H POC ABG pO2 143 H Sodium Potassium Chloride Carbon Dioxide BUN Creatinine Glucose POC Glucose 202 H Hemoglobin A1c Calcium AST ALT C-Reactive Protein Total Protein Albumin Triglycerides Ur Specific [place] Urine WBC (Auto) Urine Creatinine Urine Total Protein Lymph Enumerat CD4/CD8 % CD3 Cells Absolute CD3 Count % CD4 Cells Absolute CD4 Count % CD8 Cells Absolute CD8 Count Absolute CD19 Count HIV DNA Qual (PCR) HIV-1 RNA PCR copies/ml HIV-1 RNA (PCR) log Miscellaneous Test Crossmatch 06/29/18 06/29/18 06/29/18 05:15 05:15 05:32 WBC 12.3 H RBC 1.93 L Hgb 5.9 L* Hct 18.2 L* MCV 95 H MCHC RDW Plt Count 127 L Seg Neuts % (Manual) Lymphocytes % (Manual) Nucleated RBC % Seg Neutrophils # Man Abs Lymphs (Manual) Lymphocytes # (Manual) PT INR D-Dimer POC ABG pH POC ABG pCO2 POC ABG pO2 Sodium 136 L Potassium 5.9 H Chloride 94.3 L Carbon Dioxide BUN 139 H Creatinine 4.2 H D Glucose 157 H POC Glucose 150 H Hemoglobin A1c Calcium 8.2 L AST ALT C-Reactive Protein Total Protein Albumin Triglycerides Ur Specific [place] Urine WBC (Auto) Urine Creatinine Urine Total Protein Lymph Enumerat CD4/CD8 % CD3 Cells Absolute CD3 Count % CD4 Cells Absolute CD4 Count % CD8 Cells Absolute CD8 Count Absolute CD19 Count HIV DNA Qual (PCR) HIV-1 RNA PCR copies/ml HIV-1 RNA (PCR) log Miscellaneous Test Crossmatch 06/29/18 06/29/18 06/29/18 08:07 09:50 11:55 WBC RBC Hgb 6.0 L Hct 18.4 L* MCV MCHC RDW Plt Count Seg Neuts % (Manual) Lymphocytes % (Manual) Nucleated RBC % Seg Neutrophils # Man Abs Lymphs (Manual) Lymphocytes # (Manual) PT INR D-Dimer POC ABG pH POC ABG pCO2 POC ABG pO2 Sodium Potassium Chloride Carbon Dioxide BUN Creatinine Glucose POC Glucose 236 H Hemoglobin A1c Calcium AST ALT C-Reactive Protein Total Protein Albumin Triglycerides Ur Specific [place] Urine WBC (Auto) Urine Creatinine Urine Total Protein Lymph Enumerat CD4/CD8 % CD3 Cells Absolute CD3 Count % CD4 Cells Absolute CD4 Count % CD8 Cells Absolute CD8 Count Absolute CD19 Count HIV DNA Qual (PCR) HIV-1 RNA PCR copies/ml HIV-1 RNA (PCR) log Miscellaneous Test Crossmatch See Detail 06/29/18 06/30/18 06/30/18 18:29 00:08 04:47 WBC RBC Hgb Hct MCV MCHC RDW Plt Count Seg Neuts % (Manual) Lymphocytes % (Manual) Nucleated RBC % Seg Neutrophils # Man Abs Lymphs (Manual) Lymphocytes # (Manual) PT INR D-Dimer POC ABG pH 7.182 L POC ABG pCO2 67.7 H POC ABG pO2 Sodium Potassium Chloride Carbon Dioxide BUN Creatinine Glucose POC Glucose 171 H 159 H Hemoglobin A1c Calcium AST ALT C-Reactive Protein Total Protein Albumin Triglycerides Ur Specific [place] Urine WBC (Auto) Urine Creatinine Urine Total Protein Lymph Enumerat CD4/CD8 % CD3 Cells Absolute CD3 Count % CD4 Cells Absolute CD4 Count % CD8 Cells Absolute CD8 Count Absolute CD19 Count HIV DNA Qual (PCR) HIV-1 RNA PCR copies/ml HIV-1 RNA (PCR) log Miscellaneous Test Crossmatch 06/30/18 06/30/18 06/30/18 05:07 06:00 12:43 WBC 18.2 H RBC 2.43 L Hgb 7.4 L Hct 22.0 L MCV MCHC RDW 15.3 H Plt Count 111 L Seg Neuts % (Manual) Lymphocytes % (Manual) Nucleated RBC % Seg Neutrophils # Man Abs Lymphs (Manual) Lymphocytes # (Manual) PT INR D-Dimer POC ABG pH POC ABG pCO2 POC ABG pO2 Sodium Potassium Chloride Carbon Dioxide BUN Creatinine Glucose POC Glucose 162 H 153 H Hemoglobin A1c Calcium AST ALT C-Reactive Protein Total Protein Albumin Triglycerides Ur Specific [place] Urine WBC (Auto) Urine Creatinine Urine Total Protein Lymph Enumerat CD4/CD8 % CD3 Cells Absolute CD3 Count % CD4 Cells Absolute CD4 Count % CD8 Cells Absolute CD8 Count Absolute CD19 Count HIV DNA Qual (PCR) HIV-1 RNA PCR copies/ml HIV-1 RNA (PCR) log Miscellaneous Test Crossmatch 06/30/18 06/30/18 07/01/18 18:07 Unknown 00:06 WBC RBC Hgb Hct MCV MCHC RDW Plt Count Seg Neuts % (Manual) Lymphocytes % (Manual) Nucleated RBC % Seg Neutrophils # Man Abs Lymphs (Manual) Lymphocytes # (Manual) PT INR D-Dimer POC ABG pH POC ABG pCO2 POC ABG pO2 Sodium Potassium 5.9 H Chloride 95.5 L Carbon Dioxide BUN 164 H Creatinine 5.2 H Glucose 151 H POC Glucose 183 H 208 H Hemoglobin A1c Calcium 7.6 L AST ALT C-Reactive Protein Total Protein Albumin Triglycerides 223 H Ur Specific [place] Urine WBC (Auto) Urine Creatinine Urine Total Protein Lymph Enumerat CD4/CD8 % CD3 Cells Absolute CD3 Count % CD4 Cells Absolute CD4 Count % CD8 Cells Absolute CD8 Count Absolute CD19 Count HIV DNA Qual (PCR) HIV-1 RNA PCR copies/ml HIV-1 RNA (PCR) log Miscellaneous Test Crossmatch 07/01/18 07/01/18 07/01/18 04:47 05:43 06:00 WBC RBC Hgb Hct MCV MCHC RDW Plt Count Seg Neuts % (Manual) Lymphocytes % (Manual) Nucleated RBC % Seg Neutrophils # Man Abs Lymphs (Manual) Lymphocytes # (Manual) PT INR D-Dimer POC ABG pH 7.060 L POC ABG pCO2 121.0 H POC ABG pO2 Sodium Potassium 5.8 H Chloride 94.1 L Carbon Dioxide BUN 144 H Creatinine 3.1 H Glucose 208 H POC Glucose 214 H Hemoglobin A1c Calcium 6.7 L AST ALT C-Reactive Protein Total Protein Albumin Triglycerides Ur Specific [place] Urine WBC (Auto) Urine Creatinine Urine Total Protein Lymph Enumerat CD4/CD8 % CD3 Cells Absolute CD3 Count % CD4 Cells Absolute CD4 Count % CD8 Cells Absolute CD8 Count Absolute CD19 Count HIV DNA Qual (PCR) HIV-1 RNA PCR copies/ml HIV-1 RNA (PCR) log Miscellaneous Test Crossmatch 07/01/18 07/01/18 07/01/18 06:00 06:52 10:00 WBC 17.9 H RBC 2.14 L Hgb 6.5 L 6.6 L Hct 20.0 L 20.5 L MCV MCHC RDW 15.9 H Plt Count 94 L Seg Neuts % (Manual) Lymphocytes % (Manual) Nucleated RBC % Seg Neutrophils # Man Abs Lymphs (Manual) Lymphocytes # (Manual) PT INR D-Dimer 2387.14 H POC ABG pH POC ABG pCO2 POC ABG pO2 Sodium Potassium Chloride Carbon Dioxide BUN Creatinine Glucose POC Glucose Hemoglobin A1c Calcium AST ALT C-Reactive Protein Total Protein Albumin Triglycerides Ur Specific [place] Urine WBC (Auto) Urine Creatinine Urine Total Protein Lymph Enumerat CD4/CD8 % CD3 Cells Absolute CD3 Count % CD4 Cells Absolute CD4 Count % CD8 Cells Absolute CD8 Count Absolute CD19 Count HIV DNA Qual (PCR) HIV-1 RNA PCR copies/ml HIV-1 RNA (PCR) log Miscellaneous Test Crossmatch 07/01/18 07/01/18 07/01/18 11:11 11:41 18:38 WBC RBC Hgb Hct MCV MCHC RDW Plt Count Seg Neuts % (Manual) Lymphocytes % (Manual) Nucleated RBC % Seg Neutrophils # Man Abs Lymphs (Manual) Lymphocytes # (Manual) PT INR D-Dimer POC ABG pH 7.151 L 7.168 L POC ABG pCO2 100.4 H 109.4 H POC ABG pO2 151 H 199 H Sodium Potassium Chloride Carbon Dioxide BUN Creatinine Glucose POC Glucose 213 H Hemoglobin A1c Calcium AST ALT C-Reactive Protein Total Protein Albumin Triglycerides Ur Specific [place] Urine WBC (Auto) Urine Creatinine Urine Total Protein Lymph Enumerat CD4/CD8 % CD3 Cells Absolute CD3 Count % CD4 Cells Absolute CD4 Count % CD8 Cells Absolute CD8 Count Absolute CD19 Count HIV DNA Qual (PCR) HIV-1 RNA PCR copies/ml HIV-1 RNA (PCR) log Miscellaneous Test Crossmatch 07/01/18 07/02/18 07/02/18 23:40 04:32 04:32 WBC 14.8 H RBC 2.68 L Hgb 8.1 L Hct 23.8 L MCV MCHC RDW Plt Count 81 L Seg Neuts % (Manual) Lymphocytes % (Manual) Nucleated RBC % Seg Neutrophils # Man Abs Lymphs (Manual) Lymphocytes # (Manual) PT INR D-Dimer POC ABG pH POC ABG pCO2 POC ABG pO2 Sodium 151 H D Potassium 3.1 L D Chloride Carbon Dioxide 39 H D BUN 108 H Creatinine 1.8 H Glucose 44 L POC Glucose < 40 L Hemoglobin A1c Calcium 6.6 L AST ALT C-Reactive Protein Total Protein Albumin Triglycerides Ur Specific [place] Urine WBC (Auto) Urine Creatinine Urine Total Protein Lymph Enumerat CD4/CD8 % CD3 Cells Absolute CD3 Count % CD4 Cells Absolute CD4 Count % CD8 Cells Absolute CD8 Count Absolute CD19 Count HIV DNA Qual (PCR) HIV-1 RNA PCR copies/ml HIV-1 RNA (PCR) log Miscellaneous Test Crossmatch 07/02/18 07/02/18 07/02/18 05:00 05:12 11:54 WBC RBC Hgb Hct MCV MCHC RDW Plt Count Seg Neuts % (Manual) Lymphocytes % (Manual) Nucleated RBC % Seg Neutrophils # Man Abs Lymphs (Manual) Lymphocytes # (Manual) PT INR D-Dimer POC ABG pH 7.319 L POC ABG pCO2 89.8 H POC ABG pO2 119 H Sodium Potassium Chloride Carbon Dioxide BUN Creatinine Glucose POC Glucose < 40 L < 40 L Hemoglobin A1c Calcium AST ALT C-Reactive Protein Total Protein Albumin Triglycerides Ur Specific [place] Urine WBC (Auto) Urine Creatinine Urine Total Protein Lymph Enumerat CD4/CD8 % CD3 Cells Absolute CD3 Count % CD4 Cells Absolute CD4 Count % CD8 Cells Absolute CD8 Count Absolute CD19 Count HIV DNA Qual (PCR) HIV-1 RNA PCR copies/ml HIV-1 RNA (PCR) log Miscellaneous Test Crossmatch 07/02/18 07/03/18 07/03/18 14:09 00:17 04:28 WBC RBC Hgb Hct MCV MCHC RDW Plt Count Seg Neuts % (Manual) Lymphocytes % (Manual) Nucleated RBC % Seg Neutrophils # Man Abs Lymphs (Manual) Lymphocytes # (Manual) PT INR D-Dimer POC ABG pH 7.267 L POC ABG pCO2 93.3 H POC ABG pO2 69 L Sodium Potassium Chloride Carbon Dioxide BUN Creatinine Glucose POC Glucose 53 L 69 L Hemoglobin A1c Calcium AST ALT C-Reactive Protein Total Protein Albumin Triglycerides Ur Specific [place] Urine WBC (Auto) Urine Creatinine Urine Total Protein Lymph Enumerat CD4/CD8 % CD3 Cells Absolute CD3 Count % CD4 Cells Absolute CD4 Count % CD8 Cells Absolute CD8 Count Absolute CD19 Count HIV DNA Qual (PCR) HIV-1 RNA PCR copies/ml HIV-1 RNA (PCR) log Miscellaneous Test Crossmatch 07/03/18 07/03/18 07/03/18 05:00 05:00 05:16 WBC RBC 2.23 L Hgb 7.0 L Hct 20.3 L MCV MCHC RDW Plt Count 81 L Seg Neuts % (Manual) Lymphocytes % (Manual) Nucleated RBC % Seg Neutrophils # Man Abs Lymphs (Manual) Lymphocytes # (Manual) PT INR D-Dimer POC ABG pH POC ABG pCO2 POC ABG pO2 Sodium 155 H Potassium 3.3 L Chloride Carbon Dioxide 40 H BUN 94 H Creatinine 1.7 H Glucose 115 H POC Glucose 113 H Hemoglobin A1c Calcium 6.9 L AST ALT C-Reactive Protein Total Protein Albumin Triglycerides Ur Specific [place] Urine WBC (Auto) Urine Creatinine Urine Total Protein Lymph Enumerat CD4/CD8 % CD3 Cells Absolute CD3 Count % CD4 Cells Absolute CD4 Count % CD8 Cells Absolute CD8 Count Absolute CD19 Count HIV DNA Qual (PCR) HIV-1 RNA PCR copies/ml HIV-1 RNA (PCR) log Miscellaneous Test Crossmatch 07/03/18 07/03/18 07/03/18 10:24 11:12 17:52 WBC RBC Hgb Hct MCV MCHC RDW Plt Count Seg Neuts % (Manual) Lymphocytes % (Manual) Nucleated RBC % Seg Neutrophils # Man Abs Lymphs (Manual) Lymphocytes # (Manual) PT INR D-Dimer POC ABG pH POC ABG pCO2 POC ABG pO2 Sodium Potassium Chloride Carbon Dioxide BUN Creatinine Glucose POC Glucose 125 H 167 H Hemoglobin A1c Calcium AST ALT C-Reactive Protein Total Protein Albumin Triglycerides Ur Specific [place] Urine WBC (Auto) Urine Creatinine Urine Total Protein Lymph Enumerat CD4/CD8 % CD3 Cells Absolute CD3 Count % CD4 Cells Absolute CD4 Count % CD8 Cells Absolute CD8 Count Absolute CD19 Count HIV DNA Qual (PCR) HIV-1 RNA PCR copies/ml HIV-1 RNA (PCR) log Miscellaneous Test Crossmatch See Detail 07/03/18 07/03/18 07/04/18 19:15 23:43 03:57 WBC RBC Hgb 7.8 L Hct 23.8 L MCV MCHC RDW Plt Count Seg Neuts % (Manual) Lymphocytes % (Manual) Nucleated RBC % Seg Neutrophils # Man Abs Lymphs (Manual) Lymphocytes # (Manual) PT INR D-Dimer POC ABG pH 7.229 L POC ABG pCO2 99.8 H POC ABG pO2 Sodium Potassium Chloride Carbon Dioxide BUN Creatinine Glucose POC Glucose 176 H Hemoglobin A1c Calcium AST ALT C-Reactive Protein Total Protein Albumin Triglycerides Ur Specific [place] Urine WBC (Auto) Urine Creatinine Urine Total Protein Lymph Enumerat CD4/CD8 % CD3 Cells Absolute CD3 Count % CD4 Cells Absolute CD4 Count % CD8 Cells Absolute CD8 Count Absolute CD19 Count HIV DNA Qual (PCR) HIV-1 RNA PCR copies/ml HIV-1 RNA (PCR) log Miscellaneous Test Crossmatch 07/04/18 07/04/18 07/04/18 06:06 12:42 17:49 WBC RBC Hgb Hct MCV MCHC RDW Plt Count Seg Neuts % (Manual) Lymphocytes % (Manual) Nucleated RBC % Seg Neutrophils # Man Abs Lymphs (Manual) Lymphocytes # (Manual) PT INR D-Dimer POC ABG pH POC ABG pCO2 POC ABG pO2 Sodium Potassium Chloride Carbon Dioxide BUN Creatinine Glucose POC Glucose 168 H 130 H 169 H Hemoglobin A1c Calcium AST ALT C-Reactive Protein Total Protein Albumin Triglycerides Ur Specific [place] Urine WBC (Auto) Urine Creatinine Urine Total Protein Lymph Enumerat CD4/CD8 % CD3 Cells Absolute CD3 Count % CD4 Cells Absolute CD4 Count % CD8 Cells Absolute CD8 Count Absolute CD19 Count HIV DNA Qual (PCR) HIV-1 RNA PCR copies/ml HIV-1 RNA (PCR) log Miscellaneous Test Crossmatch 07/04/18 07/04/18 07/04/18 23:12 Unknown Unknown WBC 12.7 H RBC 2.57 L Hgb 7.7 L Hct 23.9 L MCV MCHC RDW 15.3 H Plt Count 68 L Seg Neuts % (Manual) Lymphocytes % (Manual) Nucleated RBC % Seg Neutrophils # Man Abs Lymphs (Manual) Lymphocytes # (Manual) PT INR D-Dimer POC ABG pH POC ABG pCO2 POC ABG pO2 Sodium 154 H Potassium Chloride Carbon Dioxide 41 H* BUN 85 H Creatinine 1.7 H Glucose 130 H POC Glucose 162 H Hemoglobin A1c Calcium 7.6 L AST ALT C-Reactive Protein Total Protein Albumin Triglycerides 250 H Ur Specific [place] Urine WBC (Auto) Urine Creatinine Urine Total Protein Lymph Enumerat CD4/CD8 % CD3 Cells Absolute CD3 Count % CD4 Cells Absolute CD4 Count % CD8 Cells Absolute CD8 Count Absolute CD19 Count HIV DNA Qual (PCR) HIV-1 RNA PCR copies/ml HIV-1 RNA (PCR) log Miscellaneous Test Crossmatch 07/05/18 07/05/18 07/05/18 05:42 05:46 12:45 WBC RBC Hgb Hct MCV MCHC RDW Plt Count Seg Neuts % (Manual) Lymphocytes % (Manual) Nucleated RBC % Seg Neutrophils # Man Abs Lymphs (Manual) Lymphocytes # (Manual) PT INR D-Dimer POC ABG pH 7.240 L POC ABG pCO2 97.9 H POC ABG pO2 71 L Sodium Potassium Chloride Carbon Dioxide BUN Creatinine Glucose POC Glucose 278 H 268 H Hemoglobin A1c Calcium AST ALT C-Reactive Protein Total Protein Albumin Triglycerides Ur Specific [place] Urine WBC (Auto) Urine Creatinine Urine Total Protein Lymph Enumerat CD4/CD8 % CD3 Cells Absolute CD3 Count % CD4 Cells Absolute CD4 Count % CD8 Cells Absolute CD8 Count Absolute CD19 Count HIV DNA Qual (PCR) HIV-1 RNA PCR copies/ml HIV-1 RNA (PCR) log Miscellaneous Test Crossmatch 07/05/18 07/05/18 07/05/18 16:22 17:43 17:54 WBC RBC Hgb Hct MCV MCHC RDW Plt Count Seg Neuts % (Manual) Lymphocytes % (Manual) Nucleated RBC % Seg Neutrophils # Man Abs Lymphs (Manual) Lymphocytes # (Manual) PT INR D-Dimer POC ABG pH 7.094 L 7.112 L POC ABG pCO2 129.6 H 125.4 H POC ABG pO2 181 H 69 L Sodium Potassium Chloride Carbon Dioxide BUN Creatinine Glucose POC Glucose 221 H Hemoglobin A1c Calcium AST ALT C-Reactive Protein Total Protein Albumin Triglycerides Ur Specific [place] Urine WBC (Auto) Urine Creatinine Urine Total Protein Lymph Enumerat CD4/CD8 % CD3 Cells Absolute CD3 Count % CD4 Cells Absolute CD4 Count % CD8 Cells Absolute CD8 Count Absolute CD19 Count HIV DNA Qual (PCR) HIV-1 RNA PCR copies/ml HIV-1 RNA (PCR) log Miscellaneous Test Crossmatch 07/05/18 07/05/18 07/06/18 20:15 23:18 05:20 WBC RBC Hgb Hct MCV MCHC RDW Plt Count Seg Neuts % (Manual) Lymphocytes % (Manual) Nucleated RBC % Seg Neutrophils # Man Abs Lymphs (Manual) Lymphocytes # (Manual) PT INR D-Dimer POC ABG pH 7.140 L 7.256 L POC ABG pCO2 121.0 H 97.8 H POC ABG pO2 113 H 137 H Sodium Potassium Chloride Carbon Dioxide BUN Creatinine Glucose POC Glucose 227 H Hemoglobin A1c Calcium AST ALT C-Reactive Protein Total Protein Albumin Triglycerides Ur Specific [place] Urine WBC (Auto) Urine Creatinine Urine Total Protein Lymph Enumerat CD4/CD8 % CD3 Cells Absolute CD3 Count % CD4 Cells Absolute CD4 Count % CD8 Cells Absolute CD8 Count Absolute CD19 Count HIV DNA Qual (PCR) HIV-1 RNA PCR copies/ml HIV-1 RNA (PCR) log Miscellaneous Test Crossmatch 07/06/18 07/06/18 07/06/18 06:04 06:36 06:36 WBC RBC 2.30 L Hgb 7.3 L Hct 22.3 L MCV 97 H MCHC RDW 15.9 H Plt Count 56 L Seg Neuts % (Manual) 97.0 H Lymphocytes % (Manual) 3.0 L Nucleated RBC % Seg Neutrophils # Man 9.6 H Abs Lymphs (Manual) Lymphocytes # (Manual) 0.3 L PT INR D-Dimer POC ABG pH POC ABG pCO2 POC ABG pO2 Sodium 157 H Potassium Chloride 111.9 H Carbon Dioxide 41 H* BUN 52 H Creatinine Glucose 278 H POC Glucose 277 H Hemoglobin A1c Calcium 8.1 L AST ALT C-Reactive Protein Total Protein Albumin Triglycerides Ur Specific [place] Urine WBC (Auto) Urine Creatinine Urine Total Protein Lymph Enumerat CD4/CD8 % CD3 Cells Absolute CD3 Count % CD4 Cells Absolute CD4 Count % CD8 Cells Absolute CD8 Count Absolute CD19 Count HIV DNA Qual (PCR) HIV-1 RNA PCR copies/ml HIV-1 RNA (PCR) log Miscellaneous Test Crossmatch 07/06/18 07/06/18 07/06/18 12:13 17:57 23:18 WBC RBC Hgb Hct MCV MCHC RDW Plt Count Seg Neuts % (Manual) Lymphocytes % (Manual) Nucleated RBC % Seg Neutrophils # Man Abs Lymphs (Manual) Lymphocytes # (Manual) PT INR D-Dimer POC ABG pH POC ABG pCO2 POC ABG pO2 Sodium Potassium Chloride Carbon Dioxide BUN Creatinine Glucose POC Glucose 279 H 265 H 231 H Hemoglobin A1c Calcium AST ALT C-Reactive Protein Total Protein Albumin Triglycerides Ur Specific [place] Urine WBC (Auto) Urine Creatinine Urine Total Protein Lymph Enumerat CD4/CD8 % CD3 Cells Absolute CD3 Count % CD4 Cells Absolute CD4 Count % CD8 Cells Absolute CD8 Count Absolute CD19 Count HIV DNA Qual (PCR) HIV-1 RNA PCR copies/ml HIV-1 RNA (PCR) log Miscellaneous Test Crossmatch 07/07/18 07/07/18 07/07/18 04:00 04:00 04:00 WBC 12.1 H RBC 2.40 L Hgb 7.3 L Hct 23.2 L MCV 97 H MCHC 31 L RDW 15.7 H Plt Count 57 L Seg Neuts % (Manual) 95.0 H Lymphocytes % (Manual) 2.0 L Nucleated RBC % 2.0 H Seg Neutrophils # Man 11.5 H Abs Lymphs (Manual) Lymphocytes # (Manual) 0.2 L PT INR D-Dimer POC ABG pH POC ABG pCO2 POC ABG pO2 Sodium 154 H Potassium Chloride 108.1 H Carbon Dioxide 42 H* BUN 43 H Creatinine 0.7 L Glucose 260 H POC Glucose Hemoglobin A1c 6.3 H Calcium 8.1 L AST ALT C-Reactive Protein Total Protein Albumin Triglycerides Ur Specific [place] Urine WBC (Auto) Urine Creatinine Urine Total Protein Lymph Enumerat CD4/CD8 % CD3 Cells Absolute CD3 Count % CD4 Cells Absolute CD4 Count % CD8 Cells Absolute CD8 Count Absolute CD19 Count HIV DNA Qual (PCR) HIV-1 RNA PCR copies/ml HIV-1 RNA (PCR) log Miscellaneous Test Crossmatch 07/07/18 07/07/18 07/07/18 05:02 05:40 11:16 WBC RBC Hgb Hct MCV MCHC RDW Plt Count Seg Neuts % (Manual) Lymphocytes % (Manual) Nucleated RBC % Seg Neutrophils # Man Abs Lymphs (Manual) Lymphocytes # (Manual) PT INR D-Dimer POC ABG pH 7.295 L POC ABG pCO2 91.5 H POC ABG pO2 73 L Sodium Potassium Chloride Carbon Dioxide BUN Creatinine Glucose POC Glucose 292 H 262 H Hemoglobin A1c Calcium AST ALT C-Reactive Protein Total Protein Albumin Triglycerides Ur Specific [place] Urine WBC (Auto) Urine Creatinine Urine Total Protein Lymph Enumerat CD4/CD8 % CD3 Cells Absolute CD3 Count % CD4 Cells Absolute CD4 Count % CD8 Cells Absolute CD8 Count Absolute CD19 Count HIV DNA Qual (PCR) HIV-1 RNA PCR copies/ml HIV-1 RNA (PCR) log Miscellaneous Test Crossmatch 07/07/18 07/07/18 07/08/18 17:32 23:26 04:05 WBC RBC Hgb Hct MCV MCHC RDW Plt Count Seg Neuts % (Manual) Lymphocytes % (Manual) Nucleated RBC % Seg Neutrophils # Man Abs Lymphs (Manual) Lymphocytes # (Manual) PT INR D-Dimer POC ABG pH 7.279 L POC ABG pCO2 100.4 H POC ABG pO2 134 H Sodium Potassium Chloride Carbon Dioxide BUN Creatinine Glucose POC Glucose 254 H 168 H Hemoglobin A1c Calcium AST ALT C-Reactive Protein Total Protein Albumin Triglycerides Ur Specific [place] Urine WBC (Auto) Urine Creatinine Urine Total Protein Lymph Enumerat CD4/CD8 % CD3 Cells Absolute CD3 Count % CD4 Cells Absolute CD4 Count % CD8 Cells Absolute CD8 Count Absolute CD19 Count HIV DNA Qual (PCR) HIV-1 RNA PCR copies/ml HIV-1 RNA (PCR) log Miscellaneous Test Crossmatch 07/08/18 07/08/18 07/08/18 05:00 05:00 06:45 WBC 12.6 H RBC 2.27 L Hgb 6.9 L Hct 21.8 L MCV 96 H MCHC RDW Plt Count 57 L Seg Neuts % (Manual) 98.0 H Lymphocytes % (Manual) 0 L Nucleated RBC % Seg Neutrophils # Man 12.3 H Abs Lymphs (Manual) Lymphocytes # (Manual) 0.0 L PT INR D-Dimer POC ABG pH POC ABG pCO2 POC ABG pO2 Sodium 156 H Potassium Chloride 109.6 H Carbon Dioxide 45 H* BUN 40 H Creatinine 0.6 L Glucose 200 H POC Glucose 193 H Hemoglobin A1c Calcium 8.2 L AST ALT C-Reactive Protein Total Protein Albumin Triglycerides Ur Specific [place] Urine WBC (Auto) Urine Creatinine Urine Total Protein Lymph Enumerat CD4/CD8 % CD3 Cells Absolute CD3 Count % CD4 Cells Absolute CD4 Count % CD8 Cells Absolute CD8 Count Absolute CD19 Count HIV DNA Qual (PCR) HIV-1 RNA PCR copies/ml HIV-1 RNA (PCR) log Miscellaneous Test Crossmatch 07/08/18 07/08/18 09:53 12:44 WBC RBC Hgb Hct MCV MCHC RDW Plt Count Seg Neuts % (Manual) Lymphocytes % (Manual) Nucleated RBC % Seg Neutrophils # Man Abs Lymphs (Manual) Lymphocytes # (Manual) PT INR D-Dimer POC ABG pH POC ABG pCO2 POC ABG pO2 Sodium Potassium Chloride Carbon Dioxide BUN Creatinine Glucose POC Glucose 163 H Hemoglobin A1c Calcium AST ALT C-Reactive Protein Total Protein Albumin Triglycerides Ur Specific [place] Urine WBC (Auto) Urine Creatinine Urine Total Protein Lymph Enumerat CD4/CD8 % CD3 Cells Absolute CD3 Count % CD4 Cells Absolute CD4 Count % CD8 Cells Absolute CD8 Count Absolute CD19 Count HIV DNA Qual (PCR) HIV-1 RNA PCR copies/ml HIV-1 RNA (PCR) log Miscellaneous Test Crossmatch See Detail Allied health notes reviewed: nursing
[2018-07-08] MEDS: LANTUS SUB-Q SCH (21:30)
[2018-07-09] MEDS: HumaLOG SUB-Q SCH ×4 (00:41→18:31)
[2018-07-09] MEDS: DIPRIVAN 10 MG/ML 1,000 MG/100 ML BOTTLE IV SCH ×4 (00:49→22:49)
[2018-07-09] MEDS: fentaNYL DRIP Premix 2,000 MCG/100 ML BAG IV SCH ×4 (01:00→19:58)
[2018-07-09] MEDS: DUONEB *Not for PRN Use IH SCH ×4 (01:34→20:20)
[2018-07-09] MEDS: CYTOVENE 500 MG in NACL 0.9% 250ML 250 ML IV SCH ×2 (06:03→18:32)
[2018-07-09] MEDS: VFEND IV SCH ×2 (06:03→18:54)
[2018-07-09] MEDS: NACL 0.9% IV SCH ×2 (06:03→18:54)
--- NOTE | 2018-07-09 06:32 | XRay Report ---
PROCEDURE: XR CHEST 1V AP HISTORY: pneumonia COMPARISONS: X-ray dated 07/05/2018 FINDINGS: Bilateral interstitial and airspace opacities are reidentified, with slight improvement. Interval decrease in size of left pleural effusion. No new areas of consolidation. ET catheter tip is 6.5 cm above the bernardino. Interval removal of prior right-sided jugular venous catheter. Left-sided PICC line catheter is in satisfactory position. Feeding tube catheter courses towards the left upper abdomen, however tip is not seen on this study. IMPRESSION: 1. Slight improvement in bilateral interstitial and airspace opacities since prior x-ray. 2. Interval decrease in size of left pleural effusion. This document is electronically signed by Mariaelena Amos MD., July 09 2018 06:30:26 AM ET
[2018-07-09] MEDS: D5W 1,000 ML IV SCH ×2 (08:46→22:49)
--- NOTE | 2018-07-09 08:51 | Progress Note ---
Assessment and Plan - Patient Problems (1) Acute kidney failure with tubular necrosis Current Visit: Yes Status: Acute Plan to address problem: Kidney injury acute tubular necrosis of multifactorial etiology secondary to contrast exposure, medications including voriconazole and hypotension. PHARMACY TO RENALLY DOSE ALL MEDICATIONS. AVOID EXPOSURE TO NEPHROTOXINS WHERE FEASIBLE. Follow-up electrolytes and renal function and further management depending on clinical course. (2) Hyperkalemia Current Visit: Yes Status: Acute Plan to address problem: Potassium has improved. 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 technician (5) AIDS (acquired immunodeficiency syndrome), CD4 <=200 Current Visit: Yes Status: Acute Plan to address problem: Continue management by infectious disease consultants (6) Bilateral pneumonia Current Visit: Yes Status: Acute Qualifiers: Pneumonia type: due to unspecified organism Lung location: unspecified part of lung Qualified Code(s): J18.9 - Pneumonia, unspecified organism Plan to address problem: Continue antibiotics per infectious disease project consultant Subjective Date of service: 07/09/18 Principal diagnosis: Acute Hypoxemic Resp Failure; AIDS / HIV positive; Severe Sepsis due to PNA Interval history: Patient seen lying in bed intubated on ventilator. Patient is not interacting. Events over the last 24 hours reviewed Objective - Exam Narrative Exam: Young male lying in bed intubated on ventilator HEENT: NCAT, ETT intact Neck: Supple, no venous distention CVS: S1S2 RRR with no murmur, rub or gallop Chest: Bilateral rhonchi Abdomen: Protuberant, soft, nontender, no organomegaly, bowel sounds are present Extremities: 1-2+ edema extremities Genitourinary deferred, muir catheter draining clear urine Skin warm and dry Neuro: Eyes open, not following commands - Vital Signs Vital signs: Vital Signs - 12hr 07/08/18 07/08/18 07/08/18 20:48 21:00 21:06 Temperature Pulse Rate 91 H 89 Pulse Rate [ 103 H 97 H Bilateral] Respiratory 49 H 30 H Rate [Bilateral ] Respiratory Rate [ Generalized] Blood Pressure 112/56 103/64 O2 Sat by Pulse 95 99 Oximetry 07/08/18 07/08/18 07/08/18 21:30 22:00 22:04 Temperature Pulse Rate 99 H 95 H 95 H Pulse Rate [ Bilateral] Respiratory Rate [Bilateral ] Respiratory 30 H Rate [ Generalized] Blood Pressure 110/55 110/64 110/64 O2 Sat by Pulse 99 99 99 Oximetry 07/08/18 07/08/18 07/08/18 22:15 22:30 23:00 Temperature Pulse Rate 96 H 113 H Pulse Rate [ Bilateral] Respiratory Rate [Bilateral ] Respiratory Rate [ Generalized] Blood Pressure 113/68 113/68 O2 Sat by Pulse 94 97 97 Oximetry 07/08/18 07/08/18 07/09/18 23:30 23:57 00:00 Temperature 98.5 F Pulse Rate 102 H 112 H 89 Pulse Rate [ Bilateral] Respiratory Rate [Bilateral ] Respiratory Rate [ Generalized] Blood Pressure 111/77 110/62 104/65 O2 Sat by Pulse 99 97 96 Oximetry 07/09/18 07/09/18 07/09/18 00:30 01:00 01:30 Temperature Pulse Rate 101 H 106 H 111 H Pulse Rate [ Bilateral] Respiratory Rate [Bilateral ] Respiratory Rate [ Generalized] Blood Pressure 105/66 105/66 113/65 O2 Sat by Pulse 93 94 94 Oximetry 07/09/18 07/09/18 07/09/18 01:37 02:00 02:30 Temperature Pulse Rate 99 H 91 H Pulse Rate [ 102 H Bilateral] Respiratory 31 H Rate [Bilateral ] Respiratory Rate [ Generalized] Blood Pressure 122/59 129/56 O2 Sat by Pulse 98 98 Oximetry 07/09/18 07/09/18 07/09/18 03:00 03:30 04:00 Temperature 98.9 F Pulse Rate 108 H 105 H 109 H Pulse Rate [ Bilateral] Respiratory Rate [Bilateral ] Respiratory Rate [ Generalized] Blood Pressure 119/65 127/66 129/60 O2 Sat by Pulse 96 96 94 Oximetry 07/09/18 07/09/18 07/09/18 04:30 05:00 05:07 Temperature Pulse Rate 105 H 109 H 100 H Pulse Rate [ Bilateral] Respiratory Rate [Bilateral ] Respiratory Rate [ Generalized] Blood Pressure 127/61 127/61 107/63 O2 Sat by Pulse 96 95 92 Oximetry 07/09/18 07/09/18 07/09/18 05:30 06:00 06:30 Temperature Pulse Rate 118 H 109 H 103 H Pulse Rate [ Bilateral] Respiratory Rate [Bilateral ] Respiratory Rate [ Generalized] Blood Pressure 117/61 114/59 106/60 O2 Sat by Pulse 97 97 92 Oximetry 07/09/18 07/09/18 07/09/18 07:01 07:57 08:00 Temperature 99.7 F H Pulse Rate 111 H 114 H Pulse Rate [ Bilateral] Respiratory Rate [Bilateral ] Respiratory Rate [ Generalized] Blood Pressure 95/56 97/58 O2 Sat by Pulse 87 91 Oximetry 07/09/18 08:02 Temperature Pulse Rate Pulse Rate [ 114 H Bilateral] Respiratory 41 H Rate [Bilateral ] Respiratory Rate [ Generalized] Blood Pressure O2 Sat by Pulse Oximetry - Lab 07/08/18 05:00 07/08/18 05:00 Most recent lab results Calcium 8.2 mg/dL (8.4-10.2) L 07/08/18 05:00 Urine Creatinine 47.2 mg/dL (0.1-20.0) H 06/24/18 22:45 Urine Sodium 40 mmol/L 06/24/18 22:45 Urine Total Protein 25 mg/dL (5-11.8) H 06/24/18 22:45 Medications & Allergies - Medications Allergies/Adverse Reactions: Allergies No Known Allergies Allergy (Verified 06/19/18 06:10) Home Medications: Home Medications Medication Instructions Recorded Confirmed Last Taken Type ALBUTEROL Inhaler (OR & NICU) 2 puff IH QID PRN 06/19/18 06/19/18 Unknown History [Proair] Pantoprazole [Protonix] 40 mg PO QDAY 06/19/18 06/19/18 Unknown History levoFLOXacin [Levaquin TAB] 500 mg PO QDAY 06/19/18 06/19/18 Unknown History Active Medications: Generic Name Dose Route Start Last Admin Trade Name Freq PRN Reason Stop Dose Admin Acetaminophen 650 mg 06/19/18 06:30 07/08/18 13:49 Tylenol PO 650 mg Q4H PRN Administration Pain MILD(1-3)/Fever >100.5/[place] Albuterol/Ipratropium 1 ampul 06/26/18 14:00 07/09/18 08:02 Duoneb *Not For Prn Use* IH 1 ampul Q6HRT PEYTON Administration Lipase/Protease/Amylase 1 each 07/03/18 14:31 Pancremeseret Arroyo 10,500 Unit FEEDTUBE PRN PRN For Clogged Feeding Tube Atovaquone 750 mg 07/03/18 22:00 07/08/18 21:30 Mepron PO 750 mg BID PEYTON Administration Azithromycin 1,200 mg 06/25/18 11:00 07/02/18 10:42 Zithromax PO 1,200 mg Mo PEYTON Administration Dextrose 50 ml 07/02/18 15:00 D50w (25gm) Syringe IV PRN PRN Hypoglycemia Fentanyl 50 mcg 06/19/18 06:00 06/30/18 21:56 Sublimaze IV 50 mcg Q10MIN PRN Administration ANALGESIA Hydrophilic Ointment 1 applic 06/19/18 06:00 Vaseline Lip Therapy TP Q2HR PRN Dry Lips Fentanyl Citrate 2,000 mcg in 100 mls @ 3.86 mls/hr 06/19/18 06:00 07/09/18 07:03 Fentanyl Drip Premix IV 4 mcg/kg/hr TITR PEYTON 15.441 mls/hr Administration Protocol 1 MCG/KG/HR Norepinephrine 4 mg in 250 mls @ 7.5 mls/hr 06/19/18 15:00 07/06/18 02:10 Levophed Drip 4 Mg/Ns 250 Ml IV 0 mcg/min TITR PEYTON 0 mls/hr Titration Protocol 2 MCG/MIN Propofol 1,000 mg in 100 mls @ 2.601 mls/hr 06/24/18 15:00 07/09/18 00:49 Diprivan 10 Mg/Ml IV 25 mcg/kg/min TITR PE[place] 13.005 mls/hr Administration Protocol 5 MCG/KG/MIN Dextrose 500 mls @ 5 mls/hr 06/25/18 08:56 06/28/18 11:07 D5w IV 5 mls/hr PRN PRN Administration FLUSH BEFORE AND AFTER AMPHO B Vasopressin 20 unit/ Sodium 101 mls @ 9.09 mls/hr 06/29/18 23:00 07/03/18 22:23 Chloride IV 0 units/min TITR PEY[place] 0 mls/hr Titration Protocol 0.03 UNITS/MIN Ganciclovir Sodium 500 mg/ 250 mls @ 100 mls/hr 07/05/18 06:00 07/09/18 06:03 Sodium Chloride IV 100 mls/hr Q12HR@0600,1800 PEYTON Administration Voriconazole 400 mg/ Sodium 100 mls @ 50 mls/hr 07/05/18 06:00 07/09/18 06:03 Chloride IV 50 mls/hr Q12HR@0600,1800 PEYTON Administration Dextrose 1,000 mls @ 50 mls/hr 07/08/18 13:00 07/08/18 13:49 D5w IV 50 mls/hr DIRECT PEYTON Administration Insulin Glargine 8 units 07/07/18 12:11 07/08/18 21:30 Lantus SUB-Q 8 units QHS PEYTON Administration Insulin Human Lispro 0 unit 06/20/18 13:00 07/09/18 06:02 Humalog SUB-Q 3 unit Q6HR PEYTON Administration Protocol Lansoprazole 30 mg 07/03/18 11:00 07/08/18 09:50 Prevacid Solutab FEEDTUBE 30 mg QDAY PEYTON Administration Methylprednisolone Sodium Succinate 40 mg 07/08/18 10:00 07/08/18 09:50 Solu-Medrol IV 40 mg Q24HR PEYTON Administration Multi-Ingred Cream/Lotion/Oil/Oint 1 applic 06/19/18 06:00 Artificial Tears Ophth Oint OU Q4HR PRN Dry Eye(s) Ondansetron HCl 4 mg 06/19/18 06:30 06/30/18 21:55 Zofran IV 4 mg Q8H PRN Administration Nausea And Vomiting Phenylephrine HCl 2 spray 06/24/18 06:07 07/07/18 11:00 Thompson-Synephrine NS 2 spray Q4H PRN Administration Congestion Simple Syrup 15 ml 07/03/18 14:31 Simple Syrup FEEDTUBE PRN PRN Hypoglycemia Simple Syrup 30 ml 07/03/18 14:31 Simple Syrup FEEDTUBE PRN PRN Hypoglycemia Sodium Bicarbonate 325 mg 07/03/18 15:14 Sodium Bicarbonate FEEDTUBE PRN PRN For Clogged Feeding Tube Sodium Chloride 10 ml 06/19/18 10:00 07/08/18 21:31 Sodium Chloride Flush Syringe 10 Ml IV 10 ml BID PE[place] Administration Sodium Chloride 10 ml 06/19/18 06:30 Sodium Chloride Flush Syringe 10 Ml IV PRN PRN LINE FLUSH
--- NOTE | 2018-07-09 10:31 | Progress Note ---
Assessment and Plan ARDS Acute Hypoxemic Respiratory Failure on MVS AIDS / HIV positive Severe Sepsis due to Pneumonia LLext DVT Hyponatremia Severe metabolic acidosis Shock liver - increased Peep to 16 cmH2O - continue to accept higher PIP's as severe hypercapnic acidosis otherwise - continue to target TV 4-6 ml/kg IBW as goal ultimately - continue to wean supplemental oxygen to keep O2 sats > 89% (again reduced to 90% at bedside) - continue permissive hypercapnia strategies - continue anti-infectives per ID recs - 2D ECHO with normal EF - continue to titrate sedatives for RASS -2 while on ARDS ventilation - continue anti-infective's per ID recommendations - trend CRP and lactate levels as necessary to aid clinical decision making - continue bronchodilators with pulmonary hygiene per RT - continue hyperventilation acutely to compensate for metabolic acidosis - VAP bundle addressed - daily SAT's - Daily SBT assessment - GI & VTE prophylaxis - enteral nutrition as tolerated - continue accuchecks q6h with glycemic control per SSI for target BG 140-180 mg/dL - continue other care per attending / other managed services consultant's .... re-evaluate in am & prn .... case discussed at length with healthcare staff during team rounds PROGNOSIS TRULY GUARDED CODE STATUS: FULL CODE The high probability of a clinically significant, sudden or life-threatening deterioration of the [cardiac, neurology] system(s) required my full and direct attention, intervention and personal management. The aggregate critical care time was [35] minutes without overlap. Time includes spent on; [x] Data Review and interpretation [x] Patient assessment and monitoring of vital signs [x] Documentation [x] Medication orders and management Subjective Date of service: 07/09/18 Principal diagnosis: Acute Hypoxemic Resp Failure; AIDS / HIV positive; Severe Sepsis due to PNA Interval history: Patient is seen today for: Acute Hypoxemic Respiratory Failure on MVS; AIDS / HIV positive; Severe Sepsis due to Pneumonia; Hyponatremia; Severe metabolic acidosis Seen and examined at bedside; 24hour events reviewed; nursing and respiratory care staff consulted; no adverse overnight events reported to me; remains on MVS; desaturates with minimal stimulation even for cleaning; FiO2 at 100% with minimal room to wean; no seizures Objective Vital Signs - 12hr 07/08/18 07/08/18 07/08/18 23:00 23:30 23:57 Temperature Pulse Rate 113 H 102 H 112 H Pulse Rate [ Bilateral] Respiratory Rate [Bilateral ] Blood Pressure 113/68 111/77 110/62 O2 Sat by Pulse 97 99 97 Oximetry 07/09/18 07/09/18 07/09/18 00:00 00:30 01:00 Temperature 98.5 F Pulse Rate 89 101 H 106 H Pulse Rate [ Bilateral] Respiratory Rate [Bilateral ] Blood Pressure 104/65 105/66 105/66 O2 Sat by Pulse 96 93 94 Oximetry 07/09/18 07/09/18 07/09/18 01:30 01:37 02:00 Temperature Pulse Rate 111 H 99 H Pulse Rate [ 102 H Bilateral] Respiratory 31 H Rate [Bilateral ] Blood Pressure 113/65 122/59 O2 Sat by Pulse 94 98 Oximetry 07/09/18 07/09/18 07/09/18 02:30 03:00 03:30 Temperature Pulse Rate 91 H 108 H 105 H Pulse Rate [ Bilateral] Respiratory Rate [Bilateral ] Blood Pressure 129/56 119/65 127/66 O2 Sat by Pulse 98 96 96 Oximetry 07/09/18 07/09/18 07/09/18 04:00 04:30 05:00 Temperature 98.9 F Pulse Rate 109 H 105 H 109 H Pulse Rate [ Bilateral] Respiratory Rate [Bilateral ] Blood Pressure 129/60 127/61 127/61 O2 Sat by Pulse 94 96 95 Oximetry 07/09/18 07/09/18 07/09/18 05:07 05:30 06:00 Temperature Pulse Rate 100 H 118 H 109 H Pulse Rate [ Bilateral] Respiratory Rate [Bilateral ] Blood Pressure 107/63 117/61 114/59 O2 Sat by Pulse 92 97 97 Oximetry 07/09/18 07/09/18 07/09/18 06:30 07:01 07:30 Temperature Pulse Rate 103 H 111 H 115 H Pulse Rate [ Bilateral] Respiratory Rate [Bilateral ] Blood Pressure 106/60 95/56 97/58 O2 Sat by Pulse 92 87 90 Oximetry 07/09/18 07/09/18 07/09/18 07:57 08:00 08:02 Temperature 99.7 F H Pulse Rate 114 H 118 H Pulse Rate [ 114 H Bilateral] Respiratory 41 H Rate [Bilateral ] Blood Pressure 97/58 107/59 O2 Sat by Pulse 91 91 Oximetry 07/09/18 07/09/18 07/09/18 08:31 08:46 09:00 Temperature Pulse Rate 123 H 113 H Pulse Rate [ 115 H Bilateral] Respiratory 42 H Rate [Bilateral ] Blood Pressure 106/57 110/55 O2 Sat by Pulse 92 88 Oximetry Constitutional: appears uncomfortable, other (young HM normocephalic and atraumatic with moderately increased respiratory effort at rest) Eyes: non-icteric ENT: oropharynx moist, other (ETT 23 cm SATISH) Neck: supple, no lymphadenopathy, no JVD, other (no thyromegaly) Effort: mildly labored Ascultation: Bilateral: diminished breath sounds, rhonchi Percussion: Bilateral: not dull Cardiovascular: regular rate and rhythm Gastrointestinal: normoactive bowel sounds, soft, non-tender, non-distended Integumentary: rash Extremities: no cyanosis, pink and warm, pulses normal, no ischemia or petechiae, edema (trace) Neurologic: non-focal exam (grossly), pupils equal and round, motor strength normal and, unable to assess Psychiatric: other (unable to assess) CBC and BMP: 07/10/18 07:20 07/10/18 07:20 ABG, PT/INR, D-dimer: ABG POC ABG pH 7.279 (7.35-7.45) L 07/08/18 04:05 POC ABG pCO2 100.4 (35-45) H 07/08/18 04:05 POC ABG pO2 134 (80-105) H 07/08/18 04:05 POC ABG HCO3 47.0 07/08/18 04:05 POC ABG Total CO2 > 50 07/08/18 04:05 POC ABG O2 Sat 98 07/08/18 04:05 PT/INR, D-dimer PT 14.3 Sec. (12.2-14.9) 07/01/18 09:11 INR 1.05 (0.87-1.13) 07/01/18 09:11 D-Dimer 2387.14 ng/mlDDU (0-234) H 07/01/18 10:00 Abnormal lab findings: Abnormal Labs 06/19/18 06/19/18 06/19/18 03:31 07:11 07:42 WBC RBC Hgb Hct MCV MCHC RDW Plt Count Seg Neuts % (Manual) Lymphocytes % (Manual) Nucleated RBC % Seg Neutrophils # Man Abs Lymphs (Manual) 409 L Lymphocytes # (Manual) PT INR D-Dimer POC ABG pH 6.974 L POC ABG pCO2 22.0 L 83.4 H POC ABG pO2 28 L 122 H Sodium Potassium Chloride Carbon Dioxide BUN Creatinine Glucose POC Glucose Hemoglobin A1c Calcium AST ALT C-Reactive Protein Total Protein Albumin Triglycerides Ur Specific [place] Urine WBC (Auto) Urine Creatinine Urine Total Protein Lymph Enumerat CD4/CD8 0.05 L % CD3 Cells 45 L Absolute CD3 Count 185 L % CD4 Cells 2 L Absolute CD4 Count 10 L % CD8 Cells 43 H Absolute CD8 Count 167 L Absolute CD19 Count 79 L HIV DNA Qual (PCR) HIV-1 RNA PCR copies/ml HIV-1 RNA (PCR) log Miscellaneous Test Crossmatch 06/19/18 06/19/18 06/19/18 08:07 08:16 09:20 WBC RBC Hgb Hct MCV MCHC RDW Plt Count Seg Neuts % (Manual) Lymphocytes % (Manual) Nucleated RBC % Seg Neutrophils # Man Abs Lymphs (Manual) Lymphocytes # (Manual) PT INR D-Dimer POC ABG pH 6.996 L POC ABG pCO2 82.4 H POC ABG pO2 Sodium Potassium Chloride Carbon Dioxide BUN Creatinine Glucose POC Glucose Hemoglobin A1c Calcium AST ALT C-Reactive Protein Total Protein Albumin Triglycerides Ur Specific [place] 1.060 H Urine WBC (Auto) 8.0 H Urine Creatinine Urine Total Protein Lymph Enumerat CD4/CD8 % CD3 Cells Absolute CD3 Count % CD4 Cells Absolute CD4 Count % CD8 Cells Absolute CD8 Count Absolute CD19 Count HIV DNA Qual (PCR) Detected H HIV-1 RNA PCR copies/ml HIV-1 RNA (PCR) log Miscellaneous Test Crossmatch 06/19/18 06/19/18 06/19/18 09:49 11:15 15:16 WBC RBC Hgb Hct MCV MCHC RDW Plt Count Seg Neuts % (Manual) Lymphocytes % (Manual) Nucleated RBC % Seg Neutrophils # Man Abs Lymphs (Manual) Lymphocytes # (Manual) PT INR D-Dimer POC ABG pH 7.198 L 7.206 L POC ABG pCO2 POC ABG pO2 75 L Sodium Potassium Chloride Carbon Dioxide BUN Creatinine Glucose POC Glucose Hemoglobin A1c Calcium AST ALT C-Reactive Protein Total Protein Albumin Triglycerides Ur Specific [place] Urine WBC (Auto) Urine Creatinine Urine Total Protein Lymph Enumerat CD4/CD8 % CD3 Cells Absolute CD3 Count % CD4 Cells Absolute CD4 Count % CD8 Cells Absolute CD8 Count Absolute CD19 Count HIV DNA Qual (PCR) HIV-1 RNA PCR copies/ml [id number] H HIV-1 RNA (PCR) log 6.11 H Miscellaneous Test Crossmatch 06/19/18 06/19/18 06/19/18 18:54 Unknown Unknown WBC 12.9 H RBC Hgb Hct MCV MCHC RDW Plt Count Seg Neuts % (Manual) Lymphocytes % (Manual) 5.0 L Nucleated RBC % Seg Neutrophils # Man Abs Lymphs (Manual) Lymphocytes # (Manual) 0.6 L PT 15.9 H INR 1.19 H D-Dimer 8449.09 H POC ABG pH POC ABG pCO2 POC ABG pO2 Sodium Potassium Chloride Carbon Dioxide BUN Creatinine Glucose POC Glucose 196 H Hemoglobin A1c Calcium AST ALT C-Reactive Protein Total Protein Albumin Triglycerides Ur Specific [place] Urine WBC (Auto) Urine Creatinine Urine Total Protein Lymph Enumerat CD4/CD8 % CD3 Cells Absolute CD3 Count % CD4 Cells Absolute CD4 Count % CD8 Cells Absolute CD8 Count Absolute CD19 Count HIV DNA Qual (PCR) HIV-1 RNA PCR copies/ml HIV-1 RNA (PCR) log Miscellaneous Test Crossmatch 06/19/18 06/19/18 06/20/18 Unknown Unknown 04:33 WBC RBC Hgb Hct MCV MCHC RDW Plt Count Seg Neuts % (Manual) Lymphocytes % (Manual) Nucleated RBC % Seg Neutrophils # Man Abs Lymphs (Manual) Lymphocytes # (Manual) PT INR D-Dimer POC ABG pH 7.249 L POC ABG pCO2 POC ABG pO2 118 H Sodium 129 L Potassium Chloride 90.7 L Carbon Dioxide 17 L BUN Creatinine 0.6 L Glucose 199 H POC Glucose Hemoglobin A1c Calcium 8.1 L AST 53 H ALT C-Reactive Protein Total Protein 6.0 L Albumin 2.8 L Triglycerides Ur Specific [place] Urine WBC (Auto) Urine Creatinine Urine Total Protein Lymph Enumerat CD4/CD8 % CD3 Cells Absolute CD3 Count % CD4 Cells Absolute CD4 Count % CD8 Cells Absolute CD8 Count Absolute CD19 Count HIV DNA Qual (PCR) HIV-1 RNA PCR copies/ml HIV-1 RNA (PCR) log Miscellaneous Test Crossmatch 06/20/18 06/20/18 06/20/18 08:13 08:13 12:59 WBC 11.8 H RBC 3.25 L Hgb 9.8 L D Hct 30.4 L D MCV MCHC RDW Plt Count Seg Neuts % (Manual) 99.0 H Lymphocytes % (Manual) 1.0 L Nucleated RBC % Seg Neutrophils # Man 11.7 H Abs Lymphs (Manual) Lymphocytes # (Manual) 0.1 L PT INR D-Dimer POC ABG pH POC ABG pCO2 POC ABG pO2 Sodium Potassium Chloride Carbon Dioxide 19 L BUN Creatinine Glucose 223 H POC Glucose 174 H Hemoglobin A1c Calcium 6.6 L D AST 1240 H ALT 836 H C-Reactive Protein Total Protein 4.9 L Albumin 2.1 L Triglycerides Ur Specific [place] Urine WBC (Auto) Urine Creatinine Urine Total Protein Lymph Enumerat CD4/CD8 % CD3 Cells Absolute CD3 Count % CD4 Cells Absolute CD4 Count % CD8 Cells Absolute CD8 Count Absolute CD19 Count HIV DNA Qual (PCR) HIV-1 RNA PCR copies/ml HIV-1 RNA (PCR) log Miscellaneous Test Crossmatch 06/20/18 06/20/18 06/21/18 17:42 23:44 04:08 WBC RBC Hgb Hct MCV MCHC RDW Plt Count Seg Neuts % (Manual) Lymphocytes % (Manual) Nucleated RBC % Seg Neutrophils # Man Abs Lymphs (Manual) Lymphocytes # (Manual) PT INR D-Dimer POC ABG pH 7.309 L POC ABG pCO2 POC ABG pO2 Sodium Potassium Chloride Carbon Dioxide BUN Creatinine Glucose POC Glucose 177 H 195 H Hemoglobin A1c Calcium AST ALT C-Reactive Protein Total Protein Albumin Triglycerides Ur Specific [place] Urine WBC (Auto) Urine Creatinine Urine Total Protein Lymph Enumerat CD4/CD8 % CD3 Cells Absolute CD3 Count % CD4 Cells Absolute CD4 Count % CD8 Cells Absolute CD8 Count Absolute CD19 Count HIV DNA Qual (PCR) HIV-1 RNA PCR copies/ml HIV-1 RNA (PCR) log Miscellaneous Test Crossmatch 06/21/18 06/21/18 06/21/18 04:19 04:19 05:27 WBC 13.8 H RBC 3.02 L Hgb 9.2 L Hct 28.0 L MCV MCHC RDW Plt Count Seg Neuts % (Manual) Lymphocytes % (Manual) Nucleated RBC % Seg Neutrophils # Man Abs Lymphs (Manual) Lymphocytes # (Manual) PT INR D-Dimer POC ABG pH POC ABG pCO2 POC ABG pO2 Sodium 135 L Potassium Chloride Carbon Dioxide 21 L BUN Creatinine 0.7 L Glucose 161 H POC Glucose 187 H Hemoglobin A1c Calcium 7.2 L AST 390 H ALT 622 H C-Reactive Protein Total Protein 5.3 L Albumin 2.4 L Triglycerides Ur Specific [place] Urine WBC (Auto) Urine Creatinine Urine Total Protein Lymph Enumerat CD4/CD8 % CD3 Cells Absolute CD3 Count % CD4 Cells Absolute CD4 Count % CD8 Cells Absolute CD8 Count Absolute CD19 Count HIV DNA Qual (PCR) HIV-1 RNA PCR copies/ml HIV-1 RNA (PCR) log Miscellaneous Test Crossmatch 06/21/18 06/21/18 06/21/18 11:33 12:32 17:45 WBC RBC Hgb Hct MCV MCHC RDW Plt Count Seg Neuts % (Manual) Lymphocytes % (Manual) Nucleated RBC % Seg Neutrophils # Man Abs Lymphs (Manual) Lymphocytes # (Manual) PT INR D-Dimer POC ABG pH POC ABG pCO2 POC ABG pO2 Sodium Potassium Chloride Carbon Dioxide BUN Creatinine Glucose POC Glucose 147 H 172 H Hemoglobin A1c Calcium AST ALT C-Reactive Protein Total Protein Albumin Triglycerides Ur Specific [place] Urine WBC (Auto) Urine Creatinine Urine Total Protein Lymph Enumerat CD4/CD8 % CD3 Cells Absolute CD3 Count % CD4 Cells Absolute CD4 Count % CD8 Cells Absolute CD8 Count Absolute CD19 Count HIV DNA Qual (PCR) HIV-1 RNA PCR copies/ml HIV-1 RNA (PCR) log Miscellaneous Test see below H Crossmatch 06/21/18 06/22/18 06/22/18 23:25 04:47 04:47 WBC 11.5 H RBC 2.93 L Hgb 9.0 L Hct 26.5 L MCV MCHC RDW Plt Count Seg Neuts % (Manual) Lymphocytes % (Manual) Nucleated RBC % Seg Neutrophils # Man Abs Lymphs (Manual) Lymphocytes # (Manual) PT INR D-Dimer POC ABG pH POC ABG pCO2 POC ABG pO2 Sodium Potassium Chloride Carbon Dioxide BUN 22 H Creatinine Glucose 201 H POC Glucose 152 H Hemoglobin A1c Calcium 7.8 L AST 129 H ALT 416 H C-Reactive Protein Total Protein 5.3 L Albumin 2.4 L Triglycerides Ur Specific [place] Urine WBC (Auto) Urine Creatinine Urine Total Protein Lymph Enumerat CD4/CD8 % CD3 Cells Absolute CD3 Count % CD4 Cells Absolute CD4 Count % CD8 Cells Absolute CD8 Count Absolute CD19 Count HIV DNA Qual (PCR) HIV-1 RNA PCR copies/ml HIV-1 RNA (PCR) log Miscellaneous Test Crossmatch 06/22/18 06/22/18 06/22/18 05:23 11:43 17:45 WBC RBC Hgb Hct MCV MCHC RDW Plt Count Seg Neuts % (Manual) Lymphocytes % (Manual) Nucleated RBC % Seg Neutrophils # Man Abs Lymphs (Manual) Lymphocytes # (Manual) PT INR D-Dimer POC ABG pH POC ABG pCO2 POC ABG pO2 Sodium Potassium Chloride Carbon Dioxide BUN Creatinine Glucose POC Glucose 170 H 175 H 176 H Hemoglobin A1c Calcium AST ALT C-Reactive Protein Total Protein Albumin Triglycerides Ur Specific [place] Urine WBC (Auto) Urine Creatinine Urine Total Protein Lymph Enumerat CD4/CD8 % CD3 Cells Absolute CD3 Count % CD4 Cells Absolute CD4 Count % CD8 Cells Absolute CD8 Count Absolute CD19 Count HIV DNA Qual (PCR) HIV-1 RNA PCR copies/ml HIV-1 RNA (PCR) log Miscellaneous Test Crossmatch 06/23/18 06/23/18 06/23/18 00:24 05:06 05:11 WBC 11.2 H RBC 2.78 L Hgb 8.6 L Hct 25.3 L MCV MCHC RDW Plt Count Seg Neuts % (Manual) Lymphocytes % (Manual) Nucleated RBC % Seg Neutrophils # Man Abs Lymphs (Manual) Lymphocytes # (Manual) PT INR D-Dimer POC ABG pH POC ABG pCO2 POC ABG pO2 Sodium Potassium Chloride Carbon Dioxide BUN Creatinine Glucose POC Glucose 178 H 182 H Hemoglobin A1c Calcium AST ALT C-Reactive Protein Total Protein Albumin Triglycerides Ur Specific [place] Urine WBC (Auto) Urine Creatinine Urine Total Protein Lymph Enumerat CD4/CD8 % CD3 Cells Absolute CD3 Count % CD4 Cells Absolute CD4 Count % CD8 Cells Absolute CD8 Count Absolute CD19 Count HIV DNA Qual (PCR) HIV-1 RNA PCR copies/ml HIV-1 RNA (PCR) log Miscellaneous Test Crossmatch 06/23/18 06/23/18 06/23/18 05:11 05:51 12:21 WBC RBC Hgb Hct MCV MCHC RDW Plt Count Seg Neuts % (Manual) Lymphocytes % (Manual) Nucleated RBC % Seg Neutrophils # Man Abs Lymphs (Manual) Lymphocytes # (Manual) PT INR D-Dimer POC ABG pH POC ABG pCO2 POC ABG pO2 69 L Sodium Potassium Chloride Carbon Dioxide BUN 34 H Creatinine 1.7 H D Glucose 191 H POC Glucose 181 H Hemoglobin A1c Calcium 7.5 L AST 63 H ALT 297 H C-Reactive Protein Total Protein 5.3 L Albumin 2.4 L Triglycerides Ur Specific [place] Urine WBC (Auto) Urine Creatinine Urine Total Protein Lymph Enumerat CD4/CD8 % CD3 Cells Absolute CD3 Count % CD4 Cells Absolute CD4 Count % CD8 Cells Absolute CD8 Count Absolute CD19 Count HIV DNA Qual (PCR) HIV-1 RNA PCR copies/ml HIV-1 RNA (PCR) log Miscellaneous Test Crossmatch 06/23/18 06/23/18 06/23/18 13:57 17:00 18:40 WBC RBC Hgb Hct MCV MCHC RDW Plt Count Seg Neuts % (Manual) Lymphocytes % (Manual) Nucleated RBC % Seg Neutrophils # Man Abs Lymphs (Manual) Lymphocytes # (Manual) PT INR D-Dimer POC ABG pH POC ABG pCO2 POC ABG pO2 Sodium Potassium Chloride Carbon Dioxide BUN 38 H Creatinine 1.8 H Glucose POC Glucose 196 H Hemoglobin A1c Calcium AST ALT C-Reactive Protein 1.60 H Total Protein Albumin Triglycerides Ur Specific [place] Urine WBC (Auto) Urine Creatinine Urine Total Protein Lymph Enumerat CD4/CD8 % CD3 Cells Absolute CD3 Count % CD4 Cells Absolute CD4 Count % CD8 Cells Absolute CD8 Count Absolute CD19 Count HIV DNA Qual (PCR) HIV-1 RNA PCR copies/ml HIV-1 RNA (PCR) log Miscellaneous Test Crossmatch 06/23/18 06/23/18 06/24/18 21:16 23:22 04:12 WBC RBC 2.89 L Hgb 8.8 L Hct 26.9 L MCV MCHC RDW Plt Count Seg Neuts % (Manual) Lymphocytes % (Manual) Nucleated RBC % Seg Neutrophils # Man Abs Lymphs (Manual) Lymphocytes # (Manual) PT INR D-Dimer POC ABG pH 7.311 L POC ABG pCO2 47.4 H POC ABG pO2 Sodium Potassium Chloride Carbon Dioxide BUN Creatinine Glucose POC Glucose 165 H Hemoglobin A1c Calcium AST ALT C-Reactive Protein Total Protein Albumin Triglycerides Ur Specific [place] Urine WBC (Auto) Urine Creatinine Urine Total Protein Lymph Enumerat CD4/CD8 % CD3 Cells Absolute CD3 Count % CD4 Cells Absolute CD4 Count % CD8 Cells Absolute CD8 Count Absolute CD19 Count HIV DNA Qual (PCR) HIV-1 RNA PCR copies/ml HIV-1 RNA (PCR) log Miscellaneous Test Crossmatch 06/24/18 06/24/18 06/24/18 04:12 04:46 05:24 WBC RBC Hgb Hct MCV MCHC RDW Plt Count Seg Neuts % (Manual) Lymphocytes % (Manual) Nucleated RBC % Seg Neutrophils # Man Abs Lymphs (Manual) Lymphocytes # (Manual) PT INR D-Dimer POC ABG pH 7.250 L POC ABG pCO2 55.8 H POC ABG pO2 Sodium Potassium 5.4 H Chloride Carbon Dioxide BUN 44 H Creatinine 2.2 H Glucose 206 H POC Glucose 183 H Hemoglobin A1c Calcium 7.5 L AST ALT C-Reactive Protein Total Protein Albumin Triglycerides Ur Specific [place] Urine WBC (Auto) Urine Creatinine Urine Total Protein Lymph Enumerat CD4/CD8 % CD3 Cells Absolute CD3 Count % CD4 Cells Absolute CD4 Count % CD8 Cells Absolute CD8 Count Absolute CD19 Count HIV DNA Qual (PCR) HIV-1 RNA PCR copies/ml HIV-1 RNA (PCR) log Miscellaneous Test Crossmatch 06/24/18 06/24/18 06/24/18 11:14 16:40 17:16 WBC RBC Hgb Hct MCV MCHC RDW Plt Count Seg Neuts % (Manual) Lymphocytes % (Manual) Nucleated RBC % Seg Neutrophils # Man Abs Lymphs (Manual) Lymphocytes # (Manual) PT INR D-Dimer POC ABG pH 7.067 L POC ABG pCO2 91.7 H POC ABG pO2 134 H Sodium Potassium Chloride Carbon Dioxide BUN Creatinine Glucose POC Glucose 151 H 195 H Hemoglobin A1c Calcium AST ALT C-Reactive Protein Total Protein Albumin Triglycerides Ur Specific [place] Urine WBC (Auto) Urine Creatinine Urine Total Protein Lymph Enumerat CD4/CD8 % CD3 Cells Absolute CD3 Count % CD4 Cells Absolute CD4 Count % CD8 Cells Absolute CD8 Count Absolute CD19 Count HIV DNA Qual (PCR) HIV-1 RNA PCR copies/ml HIV-1 RNA (PCR) log Miscellaneous Test Crossmatch 06/24/18 06/24/18 06/24/18 18:03 22:45 22:45 WBC RBC Hgb Hct MCV MCHC RDW Plt Count Seg Neuts % (Manual) Lymphocytes % (Manual) Nucleated RBC % Seg Neutrophils # Man Abs Lymphs (Manual) Lymphocytes # (Manual) PT INR D-Dimer POC ABG pH 7.234 L POC ABG pCO2 59.9 H POC ABG pO2 121 H Sodium Potassium Chloride Carbon Dioxide BUN Creatinine Glucose POC Glucose Hemoglobin A1c Calcium AST ALT C-Reactive Protein Total Protein Albumin Triglycerides Ur Specific [place] Urine WBC (Auto) 9.0 H Urine Creatinine 47.2 H Urine Total Protein 25 H Lymph Enumerat CD4/CD8 % CD3 Cells Absolute CD3 Count % CD4 Cells Absolute CD4 Count % CD8 Cells Absolute CD8 Count Absolute CD19 Count HIV DNA Qual (PCR) HIV-1 RNA PCR copies/ml HIV-1 RNA (PCR) log Miscellaneous Test Crossmatch 06/24/18 06/24/18 06/25/18 Unknown 23:59 04:36 WBC RBC Hgb Hct MCV MCHC RDW Plt Count Seg Neuts % (Manual) Lymphocytes % (Manual) Nucleated RBC % Seg Neutrophils # Man Abs Lymphs (Manual) Lymphocytes # (Manual) PT 15.6 H INR 1.17 H D-Dimer POC ABG pH 7.200 L POC ABG pCO2 65.3 H POC ABG pO2 Sodium Potassium Chloride Carbon Dioxide BUN Creatinine Glucose POC Glucose 233 H Hemoglobin A1c Calcium AST ALT C-Reactive Protein Total Protein Albumin Triglycerides Ur Specific [place] Urine WBC (Auto) Urine Creatinine Urine Total Protein Lymph Enumerat CD4/CD8 % CD3 Cells Absolute CD3 Count % CD4 Cells Absolute CD4 Count % CD8 Cells Absolute CD8 Count Absolute CD19 Count HIV DNA Qual (PCR) HIV-1 RNA PCR copies/ml HIV-1 RNA (PCR) log Miscellaneous Test Crossmatch 06/25/18 06/25/18 06/25/18 05:29 11:12 11:40 WBC RBC 2.67 L Hgb 8.5 L Hct 25.6 L MCV 96 H MCHC RDW 16.0 H Plt Count Seg Neuts % (Manual) Lymphocytes % (Manual) Nucleated RBC % Seg Neutrophils # Man Abs Lymphs (Manual) Lymphocytes # (Manual) PT INR D-Dimer POC ABG pH POC ABG pCO2 POC ABG pO2 Sodium Potassium Chloride Carbon Dioxide BUN Creatinine Glucose POC Glucose 212 H 244 H Hemoglobin A1c Calcium AST ALT C-Reactive Protein Total Protein Albumin Triglycerides Ur Specific [place] Urine WBC (Auto) Urine Creatinine Urine Total Protein Lymph Enumerat CD4/CD8 % CD3 Cells Absolute CD3 Count % CD4 Cells Absolute CD4 Count % CD8 Cells Absolute CD8 Count Absolute CD19 Count HIV DNA Qual (PCR) HIV-1 RNA PCR copies/ml HIV-1 RNA (PCR) log Miscellaneous Test Crossmatch 06/25/18 06/25/18 06/25/18 11:40 17:18 18:08 WBC RBC Hgb Hct MCV MCHC RDW Plt Count Seg Neuts % (Manual) Lymphocytes % (Manual) Nucleated RBC % Seg Neutrophils # Man Abs Lymphs (Manual) Lymphocytes # (Manual) PT INR D-Dimer POC ABG pH 7.206 L POC ABG pCO2 68.1 H POC ABG pO2 Sodium Potassium 5.8 H Chloride Carbon Dioxide BUN 48 H Creatinine 2.1 H Glucose 293 H POC Glucose 264 H Hemoglobin A1c Calcium 7.5 L AST ALT C-Reactive Protein Total Protein Albumin Triglycerides Ur Specific [place] Urine WBC (Auto) Urine Creatinine Urine Total Protein Lymph Enumerat CD4/CD8 % CD3 Cells Absolute CD3 Count % CD4 Cells Absolute CD4 Count % CD8 Cells Absolute CD8 Count Absolute CD19 Count HIV DNA Qual (PCR) HIV-1 RNA PCR copies/ml HIV-1 RNA (PCR) log Miscellaneous Test Crossmatch 06/25/18 06/25/18 06/26/18 21:20 23:59 05:10 WBC RBC Hgb Hct MCV MCHC RDW Plt Count Seg Neuts % (Manual) Lymphocytes % (Manual) Nucleated RBC % Seg Neutrophils # Man Abs Lymphs (Manual) Lymphocytes # (Manual) PT INR D-Dimer POC ABG pH 7.220 L POC ABG pCO2 65.0 H POC ABG pO2 71 L Sodium Potassium Chloride Carbon Dioxide BUN Creatinine Glucose POC Glucose 231 H 259 H Hemoglobin A1c Calcium AST ALT C-Reactive Protein Total Protein Albumin Triglycerides Ur Specific [place] Urine WBC (Auto) Urine Creatinine Urine Total Protein Lymph Enumerat CD4/CD8 % CD3 Cells Absolute CD3 Count % CD4 Cells Absolute CD4 Count % CD8 Cells Absolute CD8 Count Absolute CD19 Count HIV DNA Qual (PCR) HIV-1 RNA PCR copies/ml HIV-1 RNA (PCR) log Miscellaneous Test Crossmatch 06/26/18 06/26/18 06/26/18 05:29 07:25 07:25 WBC 12.0 H RBC 2.69 L Hgb 8.2 L Hct 25.5 L MCV 95 H MCHC RDW 15.7 H Plt Count Seg Neuts % (Manual) Lymphocytes % (Manual) Nucleated RBC % Seg Neutrophils # Man Abs Lymphs (Manual) Lymphocytes # (Manual) PT INR D-Dimer POC ABG pH 7.240 L POC ABG pCO2 67.6 H POC ABG pO2 106 H Sodium Potassium 5.2 H Chloride Carbon Dioxide BUN 58 H Creatinine 1.9 H Glucose 219 H POC Glucose Hemoglobin A1c Calcium 7.9 L AST ALT C-Reactive Protein Total Protein Albumin Triglycerides Ur Specific [place] Urine WBC (Auto) Urine Creatinine Urine Total Protein Lymph Enumerat CD4/CD8 % CD3 Cells Absolute CD3 Count % CD4 Cells Absolute CD4 Count % CD8 Cells Absolute CD8 Count Absolute CD19 Count HIV DNA Qual (PCR) HIV-1 RNA PCR copies/ml HIV-1 RNA (PCR) log Miscellaneous Test Crossmatch 06/26/18 06/26/18 06/26/18 07:25 12:49 17:42 WBC RBC Hgb Hct MCV MCHC RDW Plt Count Seg Neuts % (Manual) Lymphocytes % (Manual) Nucleated RBC % Seg Neutrophils # Man Abs Lymphs (Manual) Lymphocytes # (Manual) PT INR D-Dimer POC ABG pH 7.178 L POC ABG pCO2 73.6 H POC ABG pO2 77 L Sodium Potassium Chloride Carbon Dioxide BUN Creatinine Glucose POC Glucose 276 H Hemoglobin A1c Calcium AST ALT C-Reactive Protein Total Protein Albumin Triglycerides 174 H Ur Specific [place] Urine WBC (Auto) Urine Creatinine Urine Total Protein Lymph Enumerat CD4/CD8 % CD3 Cells Absolute CD3 Count % CD4 Cells Absolute CD4 Count % CD8 Cells Absolute CD8 Count Absolute CD19 Count HIV DNA Qual (PCR) HIV-1 RNA PCR copies/ml HIV-1 RNA (PCR) log Miscellaneous Test Crossmatch 06/26/18 06/26/18 06/26/18 18:25 21:24 23:22 WBC RBC Hgb Hct MCV MCHC RDW Plt Count Seg Neuts % (Manual) Lymphocytes % (Manual) Nucleated RBC % Seg Neutrophils # Man Abs Lymphs (Manual) Lymphocytes # (Manual) PT INR D-Dimer POC ABG pH 7.152 L POC ABG pCO2 80.6 H POC ABG pO2 Sodium Potassium Chloride Carbon Dioxide BUN Creatinine Glucose POC Glucose 304 H 282 H Hemoglobin A1c Calcium AST ALT C-Reactive Protein Total Protein Albumin Triglycerides Ur Specific [place] Urine WBC (Auto) Urine Creatinine Urine Total Protein Lymph Enumerat CD4/CD8 % CD3 Cells Absolute CD3 Count % CD4 Cells Absolute CD4 Count % CD8 Cells Absolute CD8 Count Absolute CD19 Count HIV DNA Qual (PCR) HIV-1 RNA PCR copies/ml HIV-1 RNA (PCR) log Miscellaneous Test Crossmatch 06/27/18 06/27/18 06/27/18 04:05 05:15 05:15 WBC RBC Hgb Hct MCV MCHC RDW Plt Count Seg Neuts % (Manual) Lymphocytes % (Manual) Nucleated RBC % Seg Neutrophils # Man Abs Lymphs (Manual) Lymphocytes # (Manual) PT INR D-Dimer POC ABG pH 7.266 L POC ABG pCO2 62.8 H POC ABG pO2 Sodium Potassium 5.5 H Chloride Carbon Dioxide BUN 73 H Creatinine 2.1 H Glucose 211 H POC Glucose Hemoglobin A1c Calcium 7.7 L AST ALT C-Reactive Protein Total Protein Albumin Triglycerides Ur Specific [place] Urine WBC (Auto) Urine Creatinine Urine Total Protein Lymph Enumerat CD4/CD8 % CD3 Cells Absolute CD3 Count % CD4 Cells Absolute CD4 Count % CD8 Cells Absolute CD8 Count Absolute CD19 Count HIV DNA Qual (PCR) HIV-1 RNA PCR copies/ml HIV-1 RNA (PCR) log Miscellaneous Test Flexitest 1 H Crossmatch 06/27/18 06/27/18 06/27/18 05:15 05:52 13:10 WBC RBC 2.41 L Hgb 7.6 L Hct 22.4 L MCV MCHC RDW Plt Count Seg Neuts % (Manual) Lymphocytes % (Manual) Nucleated RBC % Seg Neutrophils # Man Abs Lymphs (Manual) Lymphocytes # (Manual) PT INR D-Dimer POC ABG pH POC ABG pCO2 POC ABG pO2 Sodium Potassium Chloride Carbon Dioxide BUN Creatinine Glucose POC Glucose 198 H 238 H Hemoglobin A1c Calcium AST ALT C-Reactive Protein Total Protein Albumin Triglycerides Ur Specific [place] Urine WBC (Auto) Urine Creatinine Urine Total Protein Lymph Enumerat CD4/CD8 % CD3 Cells Absolute CD3 Count % CD4 Cells Absolute CD4 Count % CD8 Cells Absolute CD8 Count Absolute CD19 Count HIV DNA Qual (PCR) HIV-1 RNA PCR copies/ml HIV-1 RNA (PCR) log Miscellaneous Test Crossmatch 06/27/18 06/27/18 06/27/18 16:12 17:51 23:22 WBC RBC Hgb Hct MCV MCHC RDW Plt Count Seg Neuts % (Manual) Lymphocytes % (Manual) Nucleated RBC % Seg Neutrophils # Man Abs Lymphs (Manual) Lymphocytes # (Manual) PT INR D-Dimer POC ABG pH POC ABG pCO2 POC ABG pO2 Sodium Potassium Chloride Carbon Dioxide BUN Creatinine Glucose POC Glucose 174 H 162 H 171 H Hemoglobin A1c Calcium AST ALT C-Reactive Protein Total Protein Albumin Triglycerides Ur Specific [place] Urine WBC (Auto) Urine Creatinine Urine Total Protein Lymph Enumerat CD4/CD8 % CD3 Cells Absolute CD3 Count % CD4 Cells Absolute CD4 Count % CD8 Cells Absolute CD8 Count Absolute CD19 Count HIV DNA Qual (PCR) HIV-1 RNA PCR copies/ml HIV-1 RNA (PCR) log Miscellaneous Test Crossmatch 06/28/18 06/28/18 06/28/18 04:36 04:54 05:10 WBC RBC Hgb Hct MCV MCHC RDW Plt Count Seg Neuts % (Manual) Lymphocytes % (Manual) Nucleated RBC % Seg Neutrophils # Man Abs Lymphs (Manual) Lymphocytes # (Manual) PT INR D-Dimer POC ABG pH 7.257 L POC ABG pCO2 68.8 H POC ABG pO2 Sodium Potassium Chloride Carbon Dioxide BUN 93 H Creatinine 2.4 H Glucose 186 H POC Glucose 193 H Hemoglobin A1c Calcium 8.3 L AST ALT C-Reactive Protein Total Protein Albumin Triglycerides Ur Specific [place] Urine WBC (Auto) Urine Creatinine Urine Total Protein Lymph Enumerat CD4/CD8 % CD3 Cells Absolute CD3 Count % CD4 Cells Absolute CD4 Count % CD8 Cells Absolute CD8 Count Absolute CD19 Count HIV DNA Qual (PCR) HIV-1 RNA PCR copies/ml HIV-1 RNA (PCR) log Miscellaneous Test Crossmatch 06/28/18 06/28/18 06/28/18 12:15 17:43 18:26 WBC RBC Hgb Hct MCV MCHC RDW Plt Count Seg Neuts % (Manual) Lymphocytes % (Manual) Nucleated RBC % Seg Neutrophils # Man Abs Lymphs (Manual) Lymphocytes # (Manual) PT INR D-Dimer POC ABG pH 7.123 L POC ABG pCO2 82.7 H POC ABG pO2 Sodium Potassium Chloride Carbon Dioxide BUN Creatinine Glucose POC Glucose 154 H 194 H Hemoglobin A1c Calcium AST ALT C-Reactive Protein Total Protein Albumin Triglycerides Ur Specific [place] Urine WBC (Auto) Urine Creatinine Urine Total Protein Lymph Enumerat CD4/CD8 % CD3 Cells Absolute CD3 Count % CD4 Cells Absolute CD4 Count % CD8 Cells Absolute CD8 Count Absolute CD19 Count HIV DNA Qual (PCR) HIV-1 RNA PCR copies/ml HIV-1 RNA (PCR) log Miscellaneous Test Crossmatch 06/28/18 06/29/18 06/29/18 22:08 00:12 04:38 WBC RBC Hgb Hct MCV MCHC RDW Plt Count Seg Neuts % (Manual) Lymphocytes % (Manual) Nucleated RBC % Seg Neutrophils # Man Abs Lymphs (Manual) Lymphocytes # (Manual) PT INR D-Dimer POC ABG pH 7.172 L 7.158 L POC ABG pCO2 80.4 H 76.6 H POC ABG pO2 143 H Sodium Potassium Chloride Carbon Dioxide BUN Creatinine Glucose POC Glucose 202 H Hemoglobin A1c Calcium AST ALT C-Reactive Protein Total Protein Albumin Triglycerides Ur Specific [place] Urine WBC (Auto) Urine Creatinine Urine Total Protein Lymph Enumerat CD4/CD8 % CD3 Cells Absolute CD3 Count % CD4 Cells Absolute CD4 Count % CD8 Cells Absolute CD8 Count Absolute CD19 Count HIV DNA Qual (PCR) HIV-1 RNA PCR copies/ml HIV-1 RNA (PCR) log Miscellaneous Test Crossmatch 06/29/18 06/29/18 06/29/18 05:15 05:15 05:32 WBC 12.3 H RBC 1.93 L Hgb 5.9 L* Hct 18.2 L* MCV 95 H MCHC RDW Plt Count 127 L Seg Neuts % (Manual) Lymphocytes % (Manual) Nucleated RBC % Seg Neutrophils # Man Abs Lymphs (Manual) Lymphocytes # (Manual) PT INR D-Dimer POC ABG pH POC ABG pCO2 POC ABG pO2 Sodium 136 L Potassium 5.9 H Chloride 94.3 L Carbon Dioxide BUN 139 H Creatinine 4.2 H D Glucose 157 H POC Glucose 150 H Hemoglobin A1c Calcium 8.2 L AST ALT C-Reactive Protein Total Protein Albumin Triglycerides Ur Specific [place] Urine WBC (Auto) Urine Creatinine Urine Total Protein Lymph Enumerat CD4/CD8 % CD3 Cells Absolute CD3 Count % CD4 Cells Absolute CD4 Count % CD8 Cells Absolute CD8 Count Absolute CD19 Count HIV DNA Qual (PCR) HIV-1 RNA PCR copies/ml HIV-1 RNA (PCR) log Miscellaneous Test Crossmatch 06/29/18 06/29/18 06/29/18 08:07 09:50 11:55 WBC RBC Hgb 6.0 L Hct 18.4 L* MCV MCHC RDW Plt Count Seg Neuts % (Manual) Lymphocytes % (Manual) Nucleated RBC % Seg Neutrophils # Man Abs Lymphs (Manual) Lymphocytes # (Manual) PT INR D-Dimer POC ABG pH POC ABG pCO2 POC ABG pO2 Sodium Potassium Chloride Carbon Dioxide BUN Creatinine Glucose POC Glucose 236 H Hemoglobin A1c Calcium AST ALT C-Reactive Protein Total Protein Albumin Triglycerides Ur Specific [place] Urine WBC (Auto) Urine Creatinine Urine Total Protein Lymph Enumerat CD4/CD8 % CD3 Cells Absolute CD3 Count % CD4 Cells Absolute CD4 Count % CD8 Cells Absolute CD8 Count Absolute CD19 Count HIV DNA Qual (PCR) HIV-1 RNA PCR copies/ml HIV-1 RNA (PCR) log Miscellaneous Test Crossmatch See Detail 06/29/18 06/30/18 06/30/18 18:29 00:08 04:47 WBC RBC Hgb Hct MCV MCHC RDW Plt Count Seg Neuts % (Manual) Lymphocytes % (Manual) Nucleated RBC % Seg Neutrophils # Man Abs Lymphs (Manual) Lymphocytes # (Manual) PT INR D-Dimer POC ABG pH 7.182 L POC ABG pCO2 67.7 H POC ABG pO2 Sodium Potassium Chloride Carbon Dioxide BUN Creatinine Glucose POC Glucose 171 H 159 H Hemoglobin A1c Calcium AST ALT C-Reactive Protein Total Protein Albumin Triglycerides Ur Specific [place] Urine WBC (Auto) Urine Creatinine Urine Total Protein Lymph Enumerat CD4/CD8 % CD3 Cells Absolute CD3 Count % CD4 Cells Absolute CD4 Count % CD8 Cells Absolute CD8 Count Absolute CD19 Count HIV DNA Qual (PCR) HIV-1 RNA PCR copies/ml HIV-1 RNA (PCR) log Miscellaneous Test Crossmatch 06/30/18 06/30/18 06/30/18 05:07 06:00 12:43 WBC 18.2 H RBC 2.43 L Hgb 7.4 L Hct 22.0 L MCV MCHC RDW 15.3 H Plt Count 111 L Seg Neuts % (Manual) Lymphocytes % (Manual) Nucleated RBC % Seg Neutrophils # Man Abs Lymphs (Manual) Lymphocytes # (Manual) PT INR D-Dimer POC ABG pH POC ABG pCO2 POC ABG pO2 Sodium Potassium Chloride Carbon Dioxide BUN Creatinine Glucose POC Glucose 162 H 153 H Hemoglobin A1c Calcium AST ALT C-Reactive Protein Total Protein Albumin Triglycerides Ur Specific [place] Urine WBC (Auto) Urine Creatinine Urine Total Protein Lymph Enumerat CD4/CD8 % CD3 Cells Absolute CD3 Count % CD4 Cells Absolute CD4 Count % CD8 Cells Absolute CD8 Count Absolute CD19 Count HIV DNA Qual (PCR) HIV-1 RNA PCR copies/ml HIV-1 RNA (PCR) log Miscellaneous Test Crossmatch 06/30/18 06/30/18 07/01/18 18:07 Unknown 00:06 WBC RBC Hgb Hct MCV MCHC RDW Plt Count Seg Neuts % (Manual) Lymphocytes % (Manual) Nucleated RBC % Seg Neutrophils # Man Abs Lymphs (Manual) Lymphocytes # (Manual) PT INR D-Dimer POC ABG pH POC ABG pCO2 POC ABG pO2 Sodium Potassium 5.9 H Chloride 95.5 L Carbon Dioxide BUN 164 H Creatinine 5.2 H Glucose 151 H POC Glucose 183 H 208 H Hemoglobin A1c Calcium 7.6 L AST ALT C-Reactive Protein Total Protein Albumin Triglycerides 223 H Ur Specific [place] Urine WBC (Auto) Urine Creatinine Urine Total Protein Lymph Enumerat CD4/CD8 % CD3 Cells Absolute CD3 Count % CD4 Cells Absolute CD4 Count % CD8 Cells Absolute CD8 Count Absolute CD19 Count HIV DNA Qual (PCR) HIV-1 RNA PCR copies/ml HIV-1 RNA (PCR) log Miscellaneous Test Crossmatch 07/01/18 07/01/18 07/01/18 04:47 05:43 06:00 WBC RBC Hgb Hct MCV MCHC RDW Plt Count Seg Neuts % (Manual) Lymphocytes % (Manual) Nucleated RBC % Seg Neutrophils # Man Abs Lymphs (Manual) Lymphocytes # (Manual) PT INR D-Dimer POC ABG pH 7.060 L POC ABG pCO2 121.0 H POC ABG pO2 Sodium Potassium 5.8 H Chloride 94.1 L Carbon Dioxide BUN 144 H Creatinine 3.1 H Glucose 208 H POC Glucose 214 H Hemoglobin A1c Calcium 6.7 L AST ALT C-Reactive Protein Total Protein Albumin Triglycerides Ur Specific [place] Urine WBC (Auto) Urine Creatinine Urine Total Protein Lymph Enumerat CD4/CD8 % CD3 Cells Absolute CD3 Count % CD4 Cells Absolute CD4 Count % CD8 Cells Absolute CD8 Count Absolute CD19 Count HIV DNA Qual (PCR) HIV-1 RNA PCR copies/ml HIV-1 RNA (PCR) log Miscellaneous Test Crossmatch 07/01/18 07/01/18 07/01/18 06:00 06:52 10:00 WBC 17.9 H RBC 2.14 L Hgb 6.5 L 6.6 L Hct 20.0 L 20.5 L MCV MCHC RDW 15.9 H Plt Count 94 L Seg Neuts % (Manual) Lymphocytes % (Manual) Nucleated RBC % Seg Neutrophils # Man Abs Lymphs (Manual) Lymphocytes # (Manual) PT INR D-Dimer 2387.14 H POC ABG pH POC ABG pCO2 POC ABG pO2 Sodium Potassium Chloride Carbon Dioxide BUN Creatinine Glucose POC Glucose Hemoglobin A1c Calcium AST ALT C-Reactive Protein Total Protein Albumin Triglycerides Ur Specific [place] Urine WBC (Auto) Urine Creatinine Urine Total Protein Lymph Enumerat CD4/CD8 % CD3 Cells Absolute CD3 Count % CD4 Cells Absolute CD4 Count % CD8 Cells Absolute CD8 Count Absolute CD19 Count HIV DNA Qual (PCR) HIV-1 RNA PCR copies/ml HIV-1 RNA (PCR) log Miscellaneous Test Crossmatch 07/01/18 07/01/18 07/01/18 11:11 11:41 18:38 WBC RBC Hgb Hct MCV MCHC RDW Plt Count Seg Neuts % (Manual) Lymphocytes % (Manual) Nucleated RBC % Seg Neutrophils # Man Abs Lymphs (Manual) Lymphocytes # (Manual) PT INR D-Dimer POC ABG pH 7.151 L 7.168 L POC ABG pCO2 100.4 H 109.4 H POC ABG pO2 151 H 199 H Sodium Potassium Chloride Carbon Dioxide BUN Creatinine Glucose POC Glucose 213 H Hemoglobin A1c Calcium AST ALT C-Reactive Protein Total Protein Albumin Triglycerides Ur Specific [place] Urine WBC (Auto) Urine Creatinine Urine Total Protein Lymph Enumerat CD4/CD8 % CD3 Cells Absolute CD3 Count % CD4 Cells Absolute CD4 Count % CD8 Cells Absolute CD8 Count Absolute CD19 Count HIV DNA Qual (PCR) HIV-1 RNA PCR copies/ml HIV-1 RNA (PCR) log Miscellaneous Test Crossmatch 07/01/18 07/02/18 07/02/18 23:40 04:32 04:32 WBC 14.8 H RBC 2.68 L Hgb 8.1 L Hct 23.8 L MCV MCHC RDW Plt Count 81 L Seg Neuts % (Manual) Lymphocytes % (Manual) Nucleated RBC % Seg Neutrophils # Man Abs Lymphs (Manual) Lymphocytes # (Manual) PT INR D-Dimer POC ABG pH POC ABG pCO2 POC ABG pO2 Sodium 151 H D Potassium 3.1 L D Chloride Carbon Dioxide 39 H D BUN 108 H Creatinine 1.8 H Glucose 44 L POC Glucose < 40 L Hemoglobin A1c Calcium 6.6 L AST ALT C-Reactive Protein Total Protein Albumin Triglycerides Ur Specific [place] Urine WBC (Auto) Urine Creatinine Urine Total Protein Lymph Enumerat CD4/CD8 % CD3 Cells Absolute CD3 Count % CD4 Cells Absolute CD4 Count % CD8 Cells Absolute CD8 Count Absolute CD19 Count HIV DNA Qual (PCR) HIV-1 RNA PCR copies/ml HIV-1 RNA (PCR) log Miscellaneous Test Crossmatch 07/02/18 07/02/18 07/02/18 05:00 05:12 11:54 WBC RBC Hgb Hct MCV MCHC RDW Plt Count Seg Neuts % (Manual) Lymphocytes % (Manual) Nucleated RBC % Seg Neutrophils # Man Abs Lymphs (Manual) Lymphocytes # (Manual) PT INR D-Dimer POC ABG pH 7.319 L POC ABG pCO2 89.8 H POC ABG pO2 119 H Sodium Potassium Chloride Carbon Dioxide BUN Creatinine Glucose POC Glucose < 40 L < 40 L Hemoglobin A1c Calcium AST ALT C-Reactive Protein Total Protein Albumin Triglycerides Ur Specific [place] Urine WBC (Auto) Urine Creatinine Urine Total Protein Lymph Enumerat CD4/CD8 % CD3 Cells Absolute CD3 Count % CD4 Cells Absolute CD4 Count % CD8 Cells Absolute CD8 Count Absolute CD19 Count HIV DNA Qual (PCR) HIV-1 RNA PCR copies/ml HIV-1 RNA (PCR) log Miscellaneous Test Crossmatch 07/02/18 07/03/18 07/03/18 14:09 00:17 04:28 WBC RBC Hgb Hct MCV MCHC RDW Plt Count Seg Neuts % (Manual) Lymphocytes % (Manual) Nucleated RBC % Seg Neutrophils # Man Abs Lymphs (Manual) Lymphocytes # (Manual) PT INR D-Dimer POC ABG pH 7.267 L POC ABG pCO2 93.3 H POC ABG pO2 69 L Sodium Potassium Chloride Carbon Dioxide BUN Creatinine Glucose POC Glucose 53 L 69 L Hemoglobin A1c Calcium AST ALT C-Reactive Protein Total Protein Albumin Triglycerides Ur Specific [place] Urine WBC (Auto) Urine Creatinine Urine Total Protein Lymph Enumerat CD4/CD8 % CD3 Cells Absolute CD3 Count % CD4 Cells Absolute CD4 Count % CD8 Cells Absolute CD8 Count Absolute CD19 Count HIV DNA Qual (PCR) HIV-1 RNA PCR copies/ml HIV-1 RNA (PCR) log Miscellaneous Test Crossmatch 07/03/18 07/03/18 07/03/18 05:00 05:00 05:16 WBC RBC 2.23 L Hgb 7.0 L Hct 20.3 L MCV MCHC RDW Plt Count 81 L Seg Neuts % (Manual) Lymphocytes % (Manual) Nucleated RBC % Seg Neutrophils # Man Abs Lymphs (Manual) Lymphocytes # (Manual) PT INR D-Dimer POC ABG pH POC ABG pCO2 POC ABG pO2 Sodium 155 H Potassium 3.3 L Chloride Carbon Dioxide 40 H BUN 94 H Creatinine 1.7 H Glucose 115 H POC Glucose 113 H Hemoglobin A1c Calcium 6.9 L AST ALT C-Reactive Protein Total Protein Albumin Triglycerides Ur Specific [place] Urine WBC (Auto) Urine Creatinine Urine Total Protein Lymph Enumerat CD4/CD8 % CD3 Cells Absolute CD3 Count % CD4 Cells Absolute CD4 Count % CD8 Cells Absolute CD8 Count Absolute CD19 Count HIV DNA Qual (PCR) HIV-1 RNA PCR copies/ml HIV-1 RNA (PCR) log Miscellaneous Test Crossmatch 07/03/18 07/03/18 07/03/18 10:24 11:12 17:52 WBC RBC Hgb Hct MCV MCHC RDW Plt Count Seg Neuts % (Manual) Lymphocytes % (Manual) Nucleated RBC % Seg Neutrophils # Man Abs Lymphs (Manual) Lymphocytes # (Manual) PT INR D-Dimer POC ABG pH POC ABG pCO2 POC ABG pO2 Sodium Potassium Chloride Carbon Dioxide BUN Creatinine Glucose POC Glucose 125 H 167 H Hemoglobin A1c Calcium AST ALT C-Reactive Protein Total Protein Albumin Triglycerides Ur Specific [place] Urine WBC (Auto) Urine Creatinine Urine Total Protein Lymph Enumerat CD4/CD8 % CD3 Cells Absolute CD3 Count % CD4 Cells Absolute CD4 Count % CD8 Cells Absolute CD8 Count Absolute CD19 Count HIV DNA Qual (PCR) HIV-1 RNA PCR copies/ml HIV-1 RNA (PCR) log Miscellaneous Test Crossmatch See Detail 07/03/18 07/03/18 07/04/18 19:15 23:43 03:57 WBC RBC Hgb 7.8 L Hct 23.8 L MCV MCHC RDW Plt Count Seg Neuts % (Manual) Lymphocytes % (Manual) Nucleated RBC % Seg Neutrophils # Man Abs Lymphs (Manual) Lymphocytes # (Manual) PT INR D-Dimer POC ABG pH 7.229 L POC ABG pCO2 99.8 H POC ABG pO2 Sodium Potassium Chloride Carbon Dioxide BUN Creatinine Glucose POC Glucose 176 H Hemoglobin A1c Calcium AST ALT C-Reactive Protein Total Protein Albumin Triglycerides Ur Specific [place] Urine WBC (Auto) Urine Creatinine Urine Total Protein Lymph Enumerat CD4/CD8 % CD3 Cells Absolute CD3 Count % CD4 Cells Absolute CD4 Count % CD8 Cells Absolute CD8 Count Absolute CD19 Count HIV DNA Qual (PCR) HIV-1 RNA PCR copies/ml HIV-1 RNA (PCR) log Miscellaneous Test Crossmatch 07/04/18 07/04/18 07/04/18 06:06 12:42 17:49 WBC RBC Hgb Hct MCV MCHC RDW Plt Count Seg Neuts % (Manual) Lymphocytes % (Manual) Nucleated RBC % Seg Neutrophils # Man Abs Lymphs (Manual) Lymphocytes # (Manual) PT INR D-Dimer POC ABG pH POC ABG pCO2 POC ABG pO2 Sodium Potassium Chloride Carbon Dioxide BUN Creatinine Glucose POC Glucose 168 H 130 H 169 H Hemoglobin A1c Calcium AST ALT C-Reactive Protein Total Protein Albumin Triglycerides Ur Specific [place] Urine WBC (Auto) Urine Creatinine Urine Total Protein Lymph Enumerat CD4/CD8 % CD3 Cells Absolute CD3 Count % CD4 Cells Absolute CD4 Count % CD8 Cells Absolute CD8 Count Absolute CD19 Count HIV DNA Qual (PCR) HIV-1 RNA PCR copies/ml HIV-1 RNA (PCR) log Miscellaneous Test Crossmatch 07/04/18 07/04/18 07/04/18 23:12 Unknown Unknown WBC 12.7 H RBC 2.57 L Hgb 7.7 L Hct 23.9 L MCV MCHC RDW 15.3 H Plt Count 68 L Seg Neuts % (Manual) Lymphocytes % (Manual) Nucleated RBC % Seg Neutrophils # Man Abs Lymphs (Manual) Lymphocytes # (Manual) PT INR D-Dimer POC ABG pH POC ABG pCO2 POC ABG pO2 Sodium 154 H Potassium Chloride Carbon Dioxide 41 H* BUN 85 H Creatinine 1.7 H Glucose 130 H POC Glucose 162 H Hemoglobin A1c Calcium 7.6 L AST ALT C-Reactive Protein Total Protein Albumin Triglycerides 250 H Ur Specific [place] Urine WBC (Auto) Urine Creatinine Urine Total Protein Lymph Enumerat CD4/CD8 % CD3 Cells Absolute CD3 Count % CD4 Cells Absolute CD4 Count % CD8 Cells Absolute CD8 Count Absolute CD19 Count HIV DNA Qual (PCR) HIV-1 RNA PCR copies/ml HIV-1 RNA (PCR) log Miscellaneous Test Crossmatch 07/05/18 07/05/18 07/05/18 05:42 05:46 12:45 WBC RBC Hgb Hct MCV MCHC RDW Plt Count Seg Neuts % (Manual) Lymphocytes % (Manual) Nucleated RBC % Seg Neutrophils # Man Abs Lymphs (Manual) Lymphocytes # (Manual) PT INR D-Dimer POC ABG pH 7.240 L POC ABG pCO2 97.9 H POC ABG pO2 71 L Sodium Potassium Chloride Carbon Dioxide BUN Creatinine Glucose POC Glucose 278 H 268 H Hemoglobin A1c Calcium AST ALT C-Reactive Protein Total Protein Albumin Triglycerides Ur Specific [place] Urine WBC (Auto) Urine Creatinine Urine Total Protein Lymph Enumerat CD4/CD8 % CD3 Cells Absolute CD3 Count % CD4 Cells Absolute CD4 Count % CD8 Cells Absolute CD8 Count Absolute CD19 Count HIV DNA Qual (PCR) HIV-1 RNA PCR copies/ml HIV-1 RNA (PCR) log Miscellaneous Test Crossmatch 07/05/18 07/05/18 07/05/18 16:22 17:43 17:54 WBC RBC Hgb Hct MCV MCHC RDW Plt Count Seg Neuts % (Manual) Lymphocytes % (Manual) Nucleated RBC % Seg Neutrophils # Man Abs Lymphs (Manual) Lymphocytes # (Manual) PT INR D-Dimer POC ABG pH 7.094 L 7.112 L POC ABG pCO2 129.6 H 125.4 H POC ABG pO2 181 H 69 L Sodium Potassium Chloride Carbon Dioxide BUN Creatinine Glucose POC Glucose 221 H Hemoglobin A1c Calcium AST ALT C-Reactive Protein Total Protein Albumin Triglycerides Ur Specific [place] Urine WBC (Auto) Urine Creatinine Urine Total Protein Lymph Enumerat CD4/CD8 % CD3 Cells Absolute CD3 Count % CD4 Cells Absolute CD4 Count % CD8 Cells Absolute CD8 Count Absolute CD19 Count HIV DNA Qual (PCR) HIV-1 RNA PCR copies/ml HIV-1 RNA (PCR) log Miscellaneous Test Crossmatch 07/05/18 07/05/18 07/06/18 20:15 23:18 05:20 WBC RBC Hgb Hct MCV MCHC RDW Plt Count Seg Neuts % (Manual) Lymphocytes % (Manual) Nucleated RBC % Seg Neutrophils # Man Abs Lymphs (Manual) Lymphocytes # (Manual) PT INR D-Dimer POC ABG pH 7.140 L 7.256 L POC ABG pCO2 121.0 H 97.8 H POC ABG pO2 113 H 137 H Sodium Potassium Chloride Carbon Dioxide BUN Creatinine Glucose POC Glucose 227 H Hemoglobin A1c Calcium AST ALT C-Reactive Protein Total Protein Albumin Triglycerides Ur Specific [place] Urine WBC (Auto) Urine Creatinine Urine Total Protein Lymph Enumerat CD4/CD8 % CD3 Cells Absolute CD3 Count % CD4 Cells Absolute CD4 Count % CD8 Cells Absolute CD8 Count Absolute CD19 Count HIV DNA Qual (PCR) HIV-1 RNA PCR copies/ml HIV-1 RNA (PCR) log Miscellaneous Test Crossmatch 07/06/18 07/06/18 07/06/18 06:04 06:36 06:36 WBC RBC 2.30 L Hgb 7.3 L Hct 22.3 L MCV 97 H MCHC RDW 15.9 H Plt Count 56 L Seg Neuts % (Manual) 97.0 H Lymphocytes % (Manual) 3.0 L Nucleated RBC % Seg Neutrophils # Man 9.6 H Abs Lymphs (Manual) Lymphocytes # (Manual) 0.3 L PT INR D-Dimer POC ABG pH POC ABG pCO2 POC ABG pO2 Sodium 157 H Potassium Chloride 111.9 H Carbon Dioxide 41 H* BUN 52 H Creatinine Glucose 278 H POC Glucose 277 H Hemoglobin A1c Calcium 8.1 L AST ALT C-Reactive Protein Total Protein Albumin Triglycerides Ur Specific [place] Urine WBC (Auto) Urine Creatinine Urine Total Protein Lymph Enumerat CD4/CD8 % CD3 Cells Absolute CD3 Count % CD4 Cells Absolute CD4 Count % CD8 Cells Absolute CD8 Count Absolute CD19 Count HIV DNA Qual (PCR) HIV-1 RNA PCR copies/ml HIV-1 RNA (PCR) log Miscellaneous Test Crossmatch 07/06/18 07/06/18 07/06/18 12:13 17:57 23:18 WBC RBC Hgb Hct MCV MCHC RDW Plt Count Seg Neuts % (Manual) Lymphocytes % (Manual) Nucleated RBC % Seg Neutrophils # Man Abs Lymphs (Manual) Lymphocytes # (Manual) PT INR D-Dimer POC ABG pH POC ABG pCO2 POC ABG pO2 Sodium Potassium Chloride Carbon Dioxide BUN Creatinine Glucose POC Glucose 279 H 265 H 231 H Hemoglobin A1c Calcium AST ALT C-Reactive Protein Total Protein Albumin Triglycerides Ur Specific [place] Urine WBC (Auto) Urine Creatinine Urine Total Protein Lymph Enumerat CD4/CD8 % CD3 Cells Absolute CD3 Count % CD4 Cells Absolute CD4 Count % CD8 Cells Absolute CD8 Count Absolute CD19 Count HIV DNA Qual (PCR) HIV-1 RNA PCR copies/ml HIV-1 RNA (PCR) log Miscellaneous Test Crossmatch 07/07/18 07/07/18 07/07/18 04:00 04:00 04:00 WBC 12.1 H RBC 2.40 L Hgb 7.3 L Hct 23.2 L MCV 97 H MCHC 31 L RDW 15.7 H Plt Count 57 L Seg Neuts % (Manual) 95.0 H Lymphocytes % (Manual) 2.0 L Nucleated RBC % 2.0 H Seg Neutrophils # Man 11.5 H Abs Lymphs (Manual) Lymphocytes # (Manual) 0.2 L PT INR D-Dimer POC ABG pH POC ABG pCO2 POC ABG pO2 Sodium 154 H Potassium Chloride 108.1 H Carbon Dioxide 42 H* BUN 43 H Creatinine 0.7 L Glucose 260 H POC Glucose Hemoglobin A1c 6.3 H Calcium 8.1 L AST ALT C-Reactive Protein Total Protein Albumin Triglycerides Ur Specific [place] Urine WBC (Auto) Urine Creatinine Urine Total Protein Lymph Enumerat CD4/CD8 % CD3 Cells Absolute CD3 Count % CD4 Cells Absolute CD4 Count % CD8 Cells Absolute CD8 Count Absolute CD19 Count HIV DNA Qual (PCR) HIV-1 RNA PCR copies/ml HIV-1 RNA (PCR) log Miscellaneous Test Crossmatch 07/07/18 07/07/18 07/07/18 05:02 05:40 11:16 WBC RBC Hgb Hct MCV MCHC RDW Plt Count Seg Neuts % (Manual) Lymphocytes % (Manual) Nucleated RBC % Seg Neutrophils # Man Abs Lymphs (Manual) Lymphocytes # (Manual) PT INR D-Dimer POC ABG pH 7.295 L POC ABG pCO2 91.5 H POC ABG pO2 73 L Sodium Potassium Chloride Carbon Dioxide BUN Creatinine Glucose POC Glucose 292 H 262 H Hemoglobin A1c Calcium AST ALT C-Reactive Protein Total Protein Albumin Triglycerides Ur Specific [place] Urine WBC (Auto) Urine Creatinine Urine Total Protein Lymph Enumerat CD4/CD8 % CD3 Cells Absolute CD3 Count % CD4 Cells Absolute CD4 Count % CD8 Cells Absolute CD8 Count Absolute CD19 Count HIV DNA Qual (PCR) HIV-1 RNA PCR copies/ml HIV-1 RNA (PCR) log Miscellaneous Test Crossmatch 07/07/18 07/07/18 07/08/18 17:32 23:26 04:05 WBC RBC Hgb Hct MCV MCHC RDW Plt Count Seg Neuts % (Manual) Lymphocytes % (Manual) Nucleated RBC % Seg Neutrophils # Man Abs Lymphs (Manual) Lymphocytes # (Manual) PT INR D-Dimer POC ABG pH 7.279 L POC ABG pCO2 100.4 H POC ABG pO2 134 H Sodium Potassium Chloride Carbon Dioxide BUN Creatinine Glucose POC Glucose 254 H 168 H Hemoglobin A1c Calcium AST ALT C-Reactive Protein Total Protein Albumin Triglycerides Ur Specific [place] Urine WBC (Auto) Urine Creatinine Urine Total Protein Lymph Enumerat CD4/CD8 % CD3 Cells Absolute CD3 Count % CD4 Cells Absolute CD4 Count % CD8 Cells Absolute CD8 Count Absolute CD19 Count HIV DNA Qual (PCR) HIV-1 RNA PCR copies/ml HIV-1 RNA (PCR) log Miscellaneous Test Crossmatch 07/08/18 07/08/18 07/08/18 05:00 05:00 06:45 WBC 12.6 H RBC 2.27 L Hgb 6.9 L Hct 21.8 L MCV 96 H MCHC RDW Plt Count 57 L Seg Neuts % (Manual) 98.0 H Lymphocytes % (Manual) 0 L Nucleated RBC % Seg Neutrophils # Man 12.3 H Abs Lymphs (Manual) Lymphocytes # (Manual) 0.0 L PT INR D-Dimer POC ABG pH POC ABG pCO2 POC ABG pO2 Sodium 156 H Potassium Chloride 109.6 H Carbon Dioxide 45 H* BUN 40 H Creatinine 0.6 L Glucose 200 H POC Glucose 193 H Hemoglobin A1c Calcium 8.2 L AST ALT C-Reactive Protein Total Protein Albumin Triglycerides Ur Specific Thompson Urine WBC (Auto) Urine Creatinine Urine Total Protein Lymph Enumerat CD4/CD8 % CD3 Cells Absolute CD3 Count % CD4 Cells Absolute CD4 Count % CD8 Cells Absolute CD8 Count Absolute CD19 Count HIV DNA Qual (PCR) HIV-1 RNA PCR copies/ml HIV-1 RNA (PCR) log Miscellaneous Test Crossmatch 07/08/18 07/08/18 07/08/18 09:53 12:44 17:37 WBC RBC Hgb Hct MCV MCHC RDW Plt Count Seg Neuts % (Manual) Lymphocytes % (Manual) Nucleated RBC % Seg Neutrophils # Man Abs Lymphs (Manual) Lymphocytes # (Manual) PT INR D-Dimer POC ABG pH POC ABG pCO2 POC ABG pO2 Sodium Potassium Chloride Carbon Dioxide BUN Creatinine Glucose POC Glucose 163 H 125 H Hemoglobin A1c Calcium AST ALT C-Reactive Protein Total Protein Albumin Triglycerides Ur Specific Thompson Urine WBC (Auto) Urine Creatinine Urine Total Protein Lymph Enumerat CD4/CD8 % CD3 Cells Absolute CD3 Count % CD4 Cells Absolute CD4 Count % CD8 Cells Absolute CD8 Count Absolute CD19 Count HIV DNA Qual (PCR) HIV-1 RNA PCR copies/ml HIV-1 RNA (PCR) log Miscellaneous Test Crossmatch See Detail Allied health notes reviewed: nursing
[2018-07-09] MEDS: SOLU-Medrol IV SCH (10:52)
[2018-07-09] MEDS: MEPRON PO SCH ×2 (10:52→22:12)
[2018-07-09] MEDS: SODIUM CHLORIDE FLUSH SYRINGE 10 ML IV SCH ×2 (10:52→22:12)
[2018-07-09] MEDS: PREVACID SOLUTAB FEEDTUBE SCH (10:52)
[2018-07-09] MEDS: ZITHROMAX PO SCH (10:59)
[2018-07-09 11:11] LABS: Hematocrit 23.3 % (35.5-45.6); Hemoglobin 7.6 gm/dl (11.8-15.2); Mean Corpuscular HGB Conc 33 % (32-34); Mean Corpuscular Volume 95 fl (84-94); Red Blood Count 2.44 M/mm3 (3.65-5.03)
[2018-07-09 11:14] LABS: Platelet Count 49 K/mm3 (140-440)
[2018-07-09 11:30] LABS: BUN/Creatinine Ratio 50; Blood Urea Nitrogen 30 mg/dL (9-20); Calcium 7.9 mg/dL (8.4-10.2); Hemolysis Index 11
--- NOTE | 2018-07-09 12:25 | Progress Note ---
Assessment and Plan Cultures: 06/19/2018 blood culture: no growth 06/19/2018 tracheal aspirate: usual resp david/ Rothia mucilaginosa 06/19/2018 fungal blood culture: no growth 06/20/2018 Serum CrAg: negative Cytology PJP stain negative GMS stain showed septated fungal hyphae with acute angle branching and yeast forms c/w Aspergillus, Fusarium, Scedosporium and other Dematiaceous fungi. DFA showed rare PJP CMV DNA PCR 06/19/2018 13,166 BAL 06/25/2018 Tigist albicans, fungal culture negative Toxo IgG: negative A/P: 32/M with: #1 Acute hypoxic and hypercapneic respiratory failure, refractory with bilateral pneumonia and ARDS: Extensive bilateral ground glass opacities and pneumonia with severe hypoxia. Unclear etiology ? PJP versus invasive fungal versus disseminated CMV. 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 Lung cytology GMS stain showed septated fungal hyphae with acute angle branching and yeast forms c/w Aspergillus, Fusarium, Scedosporium and other Dematiaceous fungi. 06/19/2018 tracheal aspirate showed usual resp david/ Rothia mucilaginosa. 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 - s/p voriconazole x 4 days - no improvement, stopped on 06/25 - s/p amphothericin x 10 days on 06/25 -07/04 - Serum CMV DNA PCR 06/19/2018,166 - this is probably reactivation in the setting of critical illness - BAL 06/25/2018 Tigist albicans likely a colonizer, AFB negative, fungal culture negative - completed vancomycin renally dosed to cover Rothia D5 on 06/28 - Aspregillus ag negative - S/p bactrim renally adjusted D15 on 07/03 - remains on voriconazole, ganciclovir and mepron - repeat CMV PCR ordered for 07/10/2018 - new fevers, will start Cefepime, Vancomycin #2 HIV/AIDS:CD4=10 / VL 1,300,000 copies. Overall, extremely poor prognosis. #3 Sepsis with septic shock: Likely secondary to above. #4 JENNIFER: resolved. #5 Epistaxis on 06/24/2018 s/p packing, resolved #6 Hypernatremia and respiratory acidosis: per strategic alliances manager. #7 Acute encephalopathy: consider MRI brain and LP when stable. Recs: f/u serum CMV PCR ordered on 07/03. repeat CMV DNA PCR ordered for 07/10/2018 continue voriconazole D6 continue ganciclovir D12 continue mepron continue azithromycin 1200 mg qweek for MAC prophylaxis started IV Cefepime and Vancomycin due to new fevers Overall, extremely poor prognosis. Nimesh Sanchez MD [facility] C: [phone] O: [phone] F: [phone] Subjective Date of service: 07/09/18 Principal diagnosis: Acute Hypoxemic Resp Failure; AIDS / HIV positive; Severe Sepsis due to PNA Interval history: Remains on the vent. Still requiring very high FiO2, briefly required 100% O2. Remains unresponsive. Currently on sedation. Objective - Exam Narrative Exam: Physical Exam: Constitutional: sedated, intubated. Head, Ears, Nose: Normocephalic, atraumatic. External ears, nose normal Eyes: Conjunctivae/corneas clear. No icterus. No ptosis. Neck: Supple, no meningeal signs Oral: intubated Cardiovascular: S1, S2 normal. Respiratory: Good air entry, clear to auscultation bilaterally GI: Soft, non-tender; bowel sounds normal. No peritoneal signs Musculoskeletal: No pedal edema, no cyanosis. Skin: No rash or abscess Hem/Lymphatic: No palpable cervical or supraclavicular nodes. No lymphangitis Psych: sedated. Neurological: sedated, intubated, on vent, exam limited - Constitutional Vitals: Vital Signs Temp Pulse Resp BP Pulse Ox 99.7 F H 133 H 42 H 91/50 96 07/09/18 08:00 07/09/18 11:56 07/09/18 08:46 07/09/18 11:56 07/09/18 11:56 Temperature -Last 24 Hours Temperature 99.7 F Temperature 98.9 F Temperature 98.5 F Temperature 100.0 F Temperature 99.6 F Temperature 99.9 F Temperature 99.8 F Temperature 99.9 F Temperature 99.5 F Temperature 99.9 F Temperature 99.9 F Temperature 99.6 F - Labs CBC & Chem 7: 07/09/18 10:55 03/11/19 10:55 Labs: Abnormal lab results 07/03/18 07/08/18 07/08/18 Range/Units 10:24 09:53 12:44 RBC (3.65-5.03) M/mm3 Hgb (11.8-15.2) gm/dl Hct (35.5-45.6) % MCV (84-94) fl Plt Count (140-440) K/mm3 Sodium (137-145) mmol/L Carbon Dioxide (22-30) mmol/L BUN (9-20) mg/dL Creatinine (0.8-1.5) mg/dL Glucose (75-100) mg/dL POC Glucose 163 H (70-105) Calcium (8.4-10.2) mg/dL Crossmatch See Detail See Detail 07/08/18 07/09/18 07/09/18 Range/Units 17:37 10:55 10:55 RBC 2.44 L (3.65-5.03) M/mm3 Hgb 7.6 L (11.8-15.2) gm/dl Hct 23.3 L (35.5-45.6) % MCV 95 H (84-94) fl Plt Count 49 L (140-440) K/mm3 Sodium 154 H (137-145) mmol/L Carbon Dioxide 46 H* (22-30) mmol/L BUN 30 H (9-20) mg/dL Creatinine 0.6 L (0.8-1.5) mg/dL Glucose 125 H (75-100) mg/dL POC Glucose 125 H (70-105) Calcium 7.9 L (8.4-10.2) mg/dL Crossmatch - Imaging and cardiology Chest x-ray: report reviewed, image reviewed (diffuse bilateral pulmonary infiltrates)
[2018-07-09] MEDS: TYLENOL PO PRN (12:36)
[2018-07-09] MEDS ORDERED: VANCOMYCIN PHARMACY TO DOSE IV SCH (13:00)
[2018-07-09] MEDS: LEVOPHED DRIP 4 MG/NS 250 ML 4 MG/250 ML BAG IV SCH (13:47)
[2018-07-09] MEDS ORDERED: VANCOMYCIN 1,750 MG in NACL 0.9% 500 ML 500 ML IV ONE (14:00)
[2018-07-09] MEDS: MAXIPIME/NS 2 GM/100 ML 2 GM/100 ML BAG IV SCH ×2 (14:00→22:09)
[2018-07-09] MEDS: NEO-SYNEPHRINE NS PRN (14:48)
--- NOTE | 2018-07-09 16:01 | Progress Note ---
Assessment and Plan /ARDS with Acute respiratory failure with hypoxia requiring full mechanical ventilatory support - Likely due to severe sepsis and bilateral pneumonia - Continue to treat underlying pneumonia with antibiotics, frequent nebs, ventilator support - Critical care following /Sepsis - secondary to bilateral pneumonia, profound immunosuppression from underlying AIDS - ID on board, CD4 count equals 10 - Continue antibiotics, IV fluid - Patient currently off pressor /Septic shock, resolved, currently off pressor /Extensive bilateral pneumonia -Extensive bilateral ground glass opacities and pneumonia with severe hypoxia. - Cytology PJP stain negative but DFA showed rare PJP. - Lung cytology GMS stain showed septated fungal hyphae with acute angle branching and yeast forms - but fungal cx negative, negative AFB and negative Aspregillus Ag - Serum CMV DNA PCR 06/19/2018 13,166 - per ID this is probably reactivation in the setting of critical illness - completed 10 days of amphothericin, Per ID now on voriconazole, ganciclovir an d mepron - started IV Cefepime and Vancomycin due to new fevers /HIV WITH AIDS defining disease, ID following CD4=10 / VL 1,300,000 copies Azithromycin weekly for MAC Px /Hypernatremia, due to loosing free water continue IV fluid, having negative balance daily cont to monitor BMP /Hyperglycemia, could be steroid induced will lower steroid dose, A1c 6.3 increased long acting insulin dose, cont SSI /Epixtasis, due to the low platelets and severe sepsis, resolved /JENNIFER secondary to Multifactorial causes, resolved - in setting of pre-renal injury, ATN secondary sepsis, contrast exposure, vor iconazole, bactrim/antibiotic exposure. - Nephrology following, creatinine improved slowly with iv fluid /Severe metabolic acidosis, due to severe sepsis and worsening renal function - Continue to monitor BMP /Shock liver- from severe sepsis, Improving /Pulmonary hypertension, likely secondary to severe pneumonia - Critical care attending following /Hyperkalemia, resolved after meds, /Gross hematuria, - Gross hematuria after muir catheter placed on06/30/18, now clearing,pink. Transfused 2 Units. Consulted Urology and Laisha Arroyo evaluated patient and recommends conservative management. Unstable to go for CT Abd. //Anemia due to acute blood loss from hematuria, required total 5 units of transfusion so far Hb again dropped to 6.9 yesterday w/o any active bleeding, transfused another un it /DVT and GI prophylaxis /Poor prognosis, DO NOT RESUSCITATE CODE STATUS The high probability of a clinically significant, sudden or life threatening deterioration of the [Pulmonary] system(s) required my full and direct attention, intervention and personal management. The aggregate critical care time was [32] minutes. This time is in addition to time spent performing reported procedures but includes the following: [x] Data Review and interpretation [x] Patient assessment and monitoring of vital signs [x] Documentation [x] Medication orders and management Brief History Patient is 32 yo with hypertension presented with shortness of breath, cough. He was found to have bilateral infiltrates. He was diagnosed with acute respiratory failure due to bilateral pneumonia. He was started on iv Antibiotics, put on BIPAP. He became worse, was intubated. Labs show + HIV/AIDS, new diagnosis. Patient is followed by Pulmonology, ID Physician. Few days into admission, he developed JENNIFER due to ATN from sepsis, contrast exposure and medications. Muir catheter was placed and Cr improving. Patient then developed gross hematuria, which now resolved. Off presoor now, but not ready to wean off from VENT. Family decided for DNR. Poor prognosis. Hospitalist Physical GEN: Intubated, sedated, NAD HEENT: Normocephalic, atraumatic, Neck: supple, No JVD Lungs: + b/l rhonchi, no wheeze Heart:S1 and S2 regular, no murmurs, rubs or gallop, Abd:soft, non tender, non distended, normal bowel sounds Ext: Edema all ext, no clubbing or cyanosis Neuro: Intubated, sedated Skin: no rash Subjective Date of service: 07/09/18 Principal diagnosis: Acute Hypoxemic Resp Failure; AIDS / HIV positive; Severe Sepsis due to PNA Interval history: Patient seen and examined. Medical records and medication list reviewed. No acute event overnight noted by the RN. Patient remained intubated, on sedation cont to spike fever Objective - Constitutional Vitals: Vital Signs - 12hr 07/09/18 07/09/18 07/09/18 04:30 05:00 05:07 Temperature Pulse Rate 105 H 109 H 100 H Pulse Rate [ Bilateral] Respiratory Rate [Bilateral ] Blood Pressure 127/61 127/61 107/63 O2 Sat by Pulse 96 95 92 Oximetry 07/09/18 07/09/18 07/09/18 05:30 06:00 06:30 Temperature Pulse Rate 118 H 109 H 103 H Pulse Rate [ Bilateral] Respiratory Rate [Bilateral ] Blood Pressure 117/61 114/59 106/60 O2 Sat by Pulse 97 97 92 Oximetry 07/09/18 07/09/18 07/09/18 07:01 07:30 07:57 Temperature Pulse Rate 111 H 115 H 114 H Pulse Rate [ Bilateral] Respiratory Rate [Bilateral ] Blood Pressure 95/56 97/58 97/58 O2 Sat by Pulse 87 90 91 Oximetry 07/09/18 07/09/18 07/09/18 08:00 08:02 08:31 Temperature 99.7 F H Pulse Rate 118 H 123 H Pulse Rate [ 114 H Bilateral] Respiratory 41 H Rate [Bilateral ] Blood Pressure 107/59 106/57 O2 Sat by Pulse 91 92 Oximetry 07/09/18 07/09/18 07/09/18 08:46 09:00 09:30 Temperature Pulse Rate 113 H 123 H Pulse Rate [ 115 H Bilateral] Respiratory 42 H Rate [Bilateral ] Blood Pressure 110/55 107/55 O2 Sat by Pulse 88 96 Oximetry 07/09/18 07/09/18 07/09/18 10:00 10:30 11:00 Temperature Pulse Rate 120 H 120 H 126 H Pulse Rate [ Bilateral] Respiratory Rate [Bilateral ] Blood Pressure 98/52 99/44 98/53 O2 Sat by Pulse 95 90 96 Oximetry 07/09/18 07/09/18 07/09/18 11:31 11:56 12:00 Temperature 101.1 F H Pulse Rate 139 H 133 H 137 H Pulse Rate [ Bilateral] Respiratory Rate [Bilateral ] Blood Pressure 92/50 91/50 91/50 O2 Sat by Pulse 97 96 96 Oximetry 07/09/18 07/09/18 07/09/18 12:31 13:00 13:31 Temperature Pulse Rate 123 H 124 H 124 H Pulse Rate [ Bilateral] Respiratory Rate [Bilateral ] Blood Pressure 91/50 101/46 95/42 O2 Sat by Pulse 97 96 98 Oximetry 07/09/18 07/09/18 14:00 14:16 Temperature Pulse Rate 122 H Pulse Rate [ 123 H Bilateral] Respiratory 33 H Rate [Bilateral ] Blood Pressure 100/57 O2 Sat by Pulse 94 Oximetry - Labs CBC & Chem 7: 07/09/18 10:55 07/09/18 10:55 Labs: Abnormal lab results 07/08/18 07/08/18 07/09/18 Range/Units 09:53 17:37 10:55 RBC 2.44 L (3.65-5.03) M/mm3 Hgb 7.6 L (11.8-15.2) gm/dl Hct 23.3 L (35.5-45.6) % MCV 95 H (84-94) fl Plt Count 49 L (140-440) K/mm3 Sodium (137-145) mmol/L Carbon Dioxide (22-30) mmol/L BUN (9-20) mg/dL Creatinine (0.8-1.5) mg/dL Glucose (75-100) mg/dL POC Glucose 125 H (70-105) Calcium (8.4-10.2) mg/dL Crossmatch See Detail 07/09/18 Range/Units 10:55 RBC (3.65-5.03) M/mm3 Hgb (11.8-15.2) gm/dl Hct (35.5-45.6) % MCV (84-94) fl Plt Count (140-440) K/mm3 Sodium 154 H (137-145) mmol/L Carbon Dioxide 46 H* (22-30) mmol/L BUN 30 H (9-20) mg/dL Creatinine 0.6 L (0.8-1.5) mg/dL Glucose 125 H (75-100) mg/dL POC Glucose (70-105) Calcium 7.9 L (8.4-10.2) mg/dL Crossmatch
[2018-07-09] MEDS: LANTUS SUB-Q SCH (22:09)
[2018-07-10] MEDS: HumaLOG SUB-Q SCH ×4 (00:42→18:31)
[2018-07-10] MEDS: fentaNYL DRIP Premix 2,000 MCG/100 ML BAG IV SCH ×4 (01:25→18:05)
[2018-07-10] MEDS: VANCOMYCIN 1,500 MG in NACL 0.9% 500 ML 500 ML IV SCH ×2 (02:10→14:09)
[2018-07-10] MEDS: DUONEB *Not for PRN Use IH SCH ×4 (02:41→19:46)
[2018-07-10] MEDS: DIPRIVAN 10 MG/ML 1,000 MG/100 ML BOTTLE IV SCH ×3 (05:55→18:05)
[2018-07-10] MEDS: CYTOVENE 500 MG in NACL 0.9% 250ML 250 ML IV SCH ×3 (06:01→17:07)
[2018-07-10] MEDS: VFEND IV SCH (06:15)
[2018-07-10] MEDS: NACL 0.9% IV SCH (06:15)
[2018-07-10 07:45] LABS: Hematocrit 22.3 % (35.5-45.6); Hemoglobin 7.1 gm/dl (11.8-15.2); Mean Corpuscular HGB Conc 32 % (32-34); Mean Corpuscular Volume 96 fl (84-94); Red Blood Count 2.33 M/mm3 (3.65-5.03); Red Cell Distribution Width 15.1 % (13.2-15.2)
[2018-07-10 08:02] LABS: BUN/Creatinine Ratio 37; Blood Urea Nitrogen 44 mg/dL (9-20); Calcium 7.9 mg/dL (8.4-10.2); Hemolysis Index 6
[2018-07-10 08:03] LABS: Platelet Count 55 K/mm3 (140-440)
--- NOTE | 2018-07-10 08:44 | Progress Note ---
Assessment and Plan - Patient Problems (1) Acute kidney failure with tubular necrosis Current Visit: Yes Status: Acute Plan to address problem: Kidney injury acute tubular necrosis of multifactorial etiology secondary to contrast exposure, medications including voriconazole and hypotension. Kidney function has improved. PHARMACY TO RENALLY DOSE ALL MEDICATIONS. AVOID EXPOSURE TO NEPHROTOXINS WHERE FEASIBLE. Follow-up electrolytes and renal func tion and further management depending on clinical course. (2) Hypernatremia Current Visit: Yes Status: Acute Plan to address problem: Increase free water replacement and follow sodium. (3) Hyperkalemia Current Visit: Yes Status: Acute Plan to address problem: Potassium has improved. (4) Acute respiratory failure with hypoxia Current Visit: Yes Status: Acute Plan to address problem: Ventilator management by pulmonary (5) Anemia Current Visit: Yes Status: Acute Plan to address problem: Being managed by roll up operator (6) AIDS (acquired immunodeficiency syndrome), CD4 <=200 Current Visit: Yes Status: Acute Plan to address problem: Continue management by infectious disease consultants (7) Bilateral pneumonia Current Visit: Yes Status: Acute Qualifiers: Pneumonia type: due to unspecified organism Lung location: unspecified part of lung Qualified Code(s): J18.9 - Pneumonia, unspecified organism Plan to address problem: Continue antibiotics per infectious disease consultants intern Subjective Date of service: 07/10/18 Principal diagnosis: Acute Hypoxemic Resp Failure; AIDS / HIV positive; Severe Sepsis due to PNA Interval history: Patient seen lying in bed intubated on ventilator. Patient is not interacting. Events over the last 24 hours reviewed Objective - Exam Narrative Exam: Young male lying in bed intubated on ventilator HEENT: NCAT, ETT intact Neck: Supple, no venous distention CVS: S1S2 RRR with no murmur, rub or gallop Chest: Bilateral rhonchi Abdomen: Protuberant, soft, nontender, no organomegaly, bowel sounds are present Extremities: 1-2+ edema extremities Genitourinary deferred, muir catheter draining clear urine Skin warm and dry Neuro: Eyes open, not following commands - Vital Signs Vital signs: Vital Signs - 12hr 07/09/18 07/09/18 07/09/18 21:00 21:30 22:00 Temperature Pulse Rate 114 H 109 H 110 H Pulse Rate [ Bilateral] Respiratory Rate [Bilateral ] Respiratory 30 H Rate [ Generalized] Blood Pressure 97/52 103/54 94/52 O2 Sat by Pulse 97 98 98 Oximetry 07/09/18 07/09/18 07/09/18 22:31 23:00 23:01 Temperature Pulse Rate 109 H 115 H 115 H Pulse Rate [ Bilateral] Respiratory Rate [Bilateral ] Respiratory Rate [ Generalized] Blood Pressure 104/62 107/56 107/56 O2 Sat by Pulse 98 91 87 Oximetry 07/09/18 07/09/18 07/09/18 23:20 23:30 23:53 Temperature 100 F H Pulse Rate 111 H 115 H Pulse Rate [ Bilateral] Respiratory Rate [Bilateral ] Respiratory Rate [ Generalized] Blood Pressure 123/62 109/55 O2 Sat by Pulse 93 95 Oximetry 07/10/18 07/10/18 07/10/18 00:01 00:03 00:30 Temperature Pulse Rate 111 H 116 H 117 H Pulse Rate [ Bilateral] Respiratory Rate [Bilateral ] Respiratory Rate [ Generalized] Blood Pressure 101/62 123/62 100/56 O2 Sat by Pulse 97 95 88 Oximetry 07/10/18 07/10/18 07/10/18 01:00 01:01 01:30 Temperature Pulse Rate 120 H 120 H 112 H Pulse Rate [ Bilateral] Respiratory Rate [Bilateral ] Respiratory Rate [ Generalized] Blood Pressure 95/49 104/54 O2 Sat by Pulse 87 97 Oximetry 07/10/18 07/10/18 07/10/18 02:00 02:01 02:30 Temperature Pulse Rate 113 H 117 H Pulse Rate [ 116 H Bilateral] Respiratory 45 H Rate [Bilateral ] Respiratory Rate [ Generalized] Blood Pressure 120/58 101/57 O2 Sat by Pulse 96 98 Oximetry 07/10/18 07/10/18 07/10/18 03:01 03:30 03:38 Temperature 100.5 F H Pulse Rate 129 H 118 H Pulse Rate [ Bilateral] Respiratory Rate [Bilateral ] Respiratory Rate [ Generalized] Blood Pressure 110/80 95/60 O2 Sat by Pulse 87 96 Oximetry 07/10/18 07/10/18 07/10/18 04:00 04:30 05:01 Temperature Pulse Rate 121 H 115 H 121 H Pulse Rate [ Bilateral] Respiratory Rate [Bilateral ] Respiratory Rate [ Generalized] Blood Pressure 105/53 109/52 105/53 O2 Sat by Pulse 93 91 94 Oximetry 07/10/18 07/10/18 07/10/18 05:30 06:01 06:30 Temperature Pulse Rate 121 H 124 H 121 H Pulse Rate [ Bilateral] Respiratory Rate [Bilateral ] Respiratory Rate [ Generalized] Blood Pressure 105/49 97/54 109/73 O2 Sat by Pulse 88 90 93 Oximetry 07/10/18 07/10/18 07:00 07:31 Temperature Pulse Rate 124 H 128 H Pulse Rate [ Bilateral] Respiratory Rate [Bilateral ] Respiratory Rate [ Generalized] Blood Pressure 101/53 124/28 O2 Sat by Pulse 98 97 Oximetry - Lab 07/10/18 07:20 07/10/18 07:20 Most recent lab results Calcium 7.9 mg/dL (8.4-10.2) L 07/10/18 07:20 Urine Creatinine 47.2 mg/dL (0.1-20.0) H 06/24/18 22:45 Urine Sodium 40 mmol/L 06/24/18 22:45 Urine Total Protein 25 mg/dL (5-11.8) H 06/24/18 22:45 Medications & Allergies - Medications Allergies/Adverse Reactions: Allergies No Known Allergies Allergy (Verified 06/19/18 06:10) Home Medications: Home Medications Medication Instructions Recorded Confirmed Last Taken Type ALBUTEROL Inhaler (OR & NICU) 2 puff IH QID PRN 06/19/18 06/19/18 Unknown History [Proair] Pantoprazole [Protonix] 40 mg PO QDAY 06/19/18 06/19/18 Unknown History levoFLOXacin [Levaquin TAB] 500 mg PO QDAY 06/19/18 06/19/18 Unknown History Active Medications: Generic Name Dose Route Start Last Admin Trade Name Freq PRN Reason Stop Dose Admin Acetaminophen 650 mg 06/19/18 06:30 07/09/18 12:36 Tylenol PO 650 mg Q4H PRN Administration Pain MILD(1-3)/Fever >100.5/[place] Albuterol/Ipratropium 1 ampul 06/26/18 14:00 07/10/18 02:41 Duoneb *Not For Prn Use* IH 1 ampul Q6HRT PEYTON Administration Lipase/Protease/Amylase 1 each 07/03/18 14:31 Pancremeseret Arroyo 10,500 Unit FEEDTUBE PRN PRN For Clogged Feeding Tube Atovaquone 750 mg 07/03/18 22:00 07/09/18 22:12 Mepron PO 750 mg BID PEYTON Administration Azithromycin 1,200 mg 06/25/18 11:00 07/09/18 10:59 Zithromax PO 1,200 mg Mo PEYTON Administration Dextrose 50 ml 07/02/18 15:00 D50w (25gm) Syringe IV PRN PRN Hypoglycemia Fentanyl 50 mcg 06/19/18 06:00 06/30/18 21:56 Sublimaze IV 50 mcg Q10MIN PRN Administration ANALGESIA Hydrophilic Ointment 1 applic 06/19/18 06:00 Vaseline Lip Therapy TP Q2HR PRN Dry Lips Fentanyl Citrate 2,000 mcg in 100 mls @ 3.86 mls/hr 06/19/18 06:00 07/10/18 07:16 Fentanyl Drip Premix IV 4 mcg/kg/hr TITR PEYTON 15.441 mls/hr Administration Protocol 1 MCG/KG/HR Norepinephrine 4 mg in 250 mls @ 7.5 mls/hr 06/19/18 15:00 07/09/18 13:47 Levophed Drip 4 Mg/Ns 250 Ml IV 2 mcg/min TITR PEYTON 7.5 mls/hr Administration Protocol 2 MCG/MIN Propofol 1,000 mg in 100 mls @ 2.601 mls/hr 06/24/18 15:00 07/10/18 05:55 Diprivan 10 Mg/Ml IV 25 mcg/kg/min TITR PEYTON 13.005 mls/hr Administration Protocol 5 MCG/KG/MIN Dextrose 500 mls @ 5 mls/hr 06/25/18 08:56 06/28/18 11:07 D5w IV 5 mls/hr PRN PRN Administration FLUSH BEFORE AND AFTER AMPHO B Vasopressin 20 unit/ Sodium 101 mls @ 9.09 mls/hr 06/29/18 23:00 07/03/18 22:23 Chloride IV 0 units/min TITR PEYTON 0 mls/hr Titration Protocol 0.03 UNITS/MIN Ganciclovir Sodium 500 mg/ 250 mls @ 100 mls/hr 07/05/18 06:00 07/10/18 06:15 Sodium Chloride IV 100 mls/hr Q12HR@0600,1800 PEYTON Administration Voriconazole 400 mg/ Sodium 100 mls @ 50 mls/hr 07/05/18 06:00 07/10/18 06:15 Chloride IV 50 mls/hr Q12HR@0600,1800 PEYTON Administration Dextrose 1,000 mls @ 70 mls/hr 07/08/18 13:00 07/09/18 22:49 D5w IV 50 mls/hr DIRECT PEYTON Administration Cefepime HCl 2 gm in 100 mls @ 200 mls/hr 07/09/18 14:00 07/09/18 22:09 Maxipime/Ns 2 Gm/100 Ml IV 200 mls/hr Q12HR PEYTON Administration Protocol Vancomycin HCl 1,500 mg/ 530 mls @ 333.333 mls/hr 07/10/18 02:00 07/10/18 02:10 Sodium Chloride IV 333.333 mls/hr Q12H PEYTON Administration Insulin Glargine 8 units 07/07/18 12:11 07/09/18 22:09 Lantus SUB-Q 8 units QHS PEYTON Administration Insulin Human Lispro 0 unit 06/20/18 13:00 07/10/18 06:02 Humalog SUB-Q Not Given Q6HR [facility] Protocol Lansoprazole 30 mg 07/03/18 11:00 07/09/18 10:52 Prevacid Solutab FEEDTUBE 30 mg QDAY PEYTON Administration Methylprednisolone Sodium Succinate 40 mg 07/08/18 10:00 07/09/18 10:52 Solu-Medrol IV 40 mg Q24HR PEYTON Administration Multi-Ingred Cream/Lotion/Oil/Oint 1 applic 06/19/18 06:00 Artificial Tears Ophth Oint OU Q4HR PRN Dry Eye(s) Ondansetron HCl 4 mg 06/19/18 06:30 06/30/18 21:55 Zofran IV 4 mg Q8H PRN Administration Nausea And Vomiting Phenylephrine HCl 2 spray 06/24/18 06:07 07/09/18 14:48 Thompson-Synephrine NS 2 spray Q4H PRN Administration Congestion Simple Syrup 15 ml 07/03/18 14:31 Simple Syrup FEEDTUBE PRN PRN Hypoglycemia Simple Syrup 30 ml 07/03/18 14:31 Simple Syrup FEEDTUBE PRN PRN Hypoglycemia Sodium Bicarbonate 325 mg 07/03/18 15:14 Sodium Bicarbonate FEEDTUBE PRN PRN For Clogged Feeding Tube Sodium Chloride 10 ml 06/19/18 10:00 07/09/18 22:12 Sodium Chloride Flush Syringe 10 Ml IV 10 ml BID PEYTON Administration Sodium Chloride 10 ml 06/19/18 06:30 Sodium Chloride Flush Syringe 10 Ml IV PRN PRN LINE FLUSH
[2018-07-10 09:00] LABS: Basophils % (Manual) 0 % (0.0-1.8); Eosinophils % (Manual) 0 % (0.0-4.3); Monocytes % (Manual) 0 % (0.0-7.3); Total Cells Counted 100
[2018-07-10 09:01] LABS: Anisocytosis 1+; Platelet Estimate Consistent w Auto; Poikilocytosis 1+; Tear Drop Cells Rare
--- NOTE | 2018-07-10 09:58 | Progress Note ---
Assessment and Plan Assessment and plan: /ARDS with Acute respiratory failure with hypoxia requiring full mechanical ventilatory support - Likely due to severe sepsis and bilateral pneumonia - Continue to treat underlying pneumonia with antibiotics, frequent nebs, ventilator support - Critical care following /Sepsis - secondary to bilateral pneumonia, profound immunosuppression from underlying AIDS - ID on board, CD4 count equals 10 - Continue antibiotics, IV fluid - Patient currently off pressor /Septic shock, resolved, currently off pressor /Extensive bilateral pneumonia -Extensive bilateral ground glass opacities and pneumonia with severe hypoxia. - Cytology PJP stain negative but DFA showed rare PJP. - Lung cytology GMS stain showed septated fungal hyphae with acute angle branching and yeast forms - but fungal cx negative, negative AFB and negative Aspregillus Ag - Serum CMV DNA PCR 06/19/2018 13,166 - per ID this is probably reactivation in the setting of critical illness - completed 10 days of amphothericin, Per ID now on voriconazole, ganciclovir and mepron - started IV Cefepime and Vancomycin due to new fevers /HIV WITH AIDS defining disease, ID following CD4=10 / VL 1,300,000 copies Azithromycin weekly for MAC Px /Hypernatremia, due to loosing free water continue IV fluid, having negative balance daily cont to monitor BMP /Hyperglycemia, could be steroid induced will lower steroid dose, A1c 6.3 increased long acting insulin dose, cont SSI /Epixtasis, due to the low platelets and severe sepsis, resolved /JENNIFER secondary to Multifactorial causes, resolved - in setting of pre-renal injury, ATN secondary sepsis, contrast exposure, voriconazole, bactrim/antibiotic exposure. - Nephrology following, creatinine improved slowly with iv fluid /Severe metabolic acidosis, due to severe sepsis and worsening renal function - Continue to monitor BMP /Shock liver- from severe sepsis, Improving /Pulmonary hypertension, likely secondary to severe pneumonia - Critical care attending following /Hyperkalemia, Will give kayexalate, /Gross hematuria, - Gross hematuria after muir catheter placed on06/30/18, now clearing,pink. Transfused 2 Units. Consulted Urology and Laisha Arroyo evaluated patient and r ecommends conservative management. Unstable to go for CT Abd. //Anemia due to acute blood loss from hematuria, required total 6 units of transfusion so far Hb 7.1 today. /DVT and GI prophylaxis /Poor prognosis, DO NOT RESUSCITATE CODE STATUS The high probability of a clinically significant, sudden or life threatening deterioration of the [Pulmonary] system(s) required my full and direct at tention, intervention and personal management. The aggregate critical care time was [33] minutes. This time is in addition to time spent performing reported procedures but includes the following: [x] Data Review and interpretation [x] Patient assessment and monitoring of vital signs [x] Documentation [x] Medication orders and management History Interval history: Patient is 32 yo with hypertension presented with shortness of breath, cough. He was found to have bilateral infiltrates. He was diagnosed with acute respiratory failure due to bilateral pneumonia. He was started on iv Antibiotics, put on BIPAP. He became worse, was intubated. Labs show + HIV/AIDS, new diagnosis. Patient is followed by Pulmonology, ID Physician. Few days into admission, he developed JENNIFER due to ATN from sepsis, contrast exposure and medications. Muir catheter was placed and Cr improving. Patient then developed gross hematuria, which now resolved. Off presoor now, but not ready to wean off from VENT. Family decided for DNR. Poor prognosis. Still having fever Hospitalist Physical - Physical exam Narrative exam: GEN: Intubated,Obese, ill looking HEENT: Normocephalic, atraumatic, Neck: supple, No JVD Lungs: Bilateral crackles, no wheeze Heart:S1 and S2 regular, no murmurs, rubs or gallop, Abd:soft, non tender, non distended, normal bowel sounds Ext: Edema all ext, no clubbing or cyanosis Neuro: Intubated, sedated Skin:anasarca - Constitutional Vitals: Temp Pulse Resp BP Pulse Ox 99.5 F 123 H 31 H 123/61 95 07/10/18 08:00 07/10/18 09:00 07/10/18 08:54 07/10/18 09:00 07/10/18 09:00 General appearance: Present: no acute distress Results - Labs CBC & Chem 7: 07/10/18 07:20 07/10/18 07:20 Labs: Laboratory Last Values WBC 11.0 K/mm3 (4.5-11.0) 07/10/18 07:20 RBC 2.33 M/mm3 (3.65-5.03) L 07/10/18 07:20 Hgb 7.1 gm/dl (11.8-15.2) L 07/10/18 07:20 Hct 22.3 % (35.5-45.6) L 07/10/18 07:20 MCV 96 fl (84-94) H 07/10/18 07:20 MCH 30 pg (28-32) 07/10/18 07:20 MCHC 32 % (32-34) 07/10/18 07:20 RDW 15.1 % (13.2-15.2) 07/10/18 07:20 Plt Count 55 K/mm3 (140-440) L 07/10/18 07:20 Add Manual Diff Complete 07/10/18 07:20 Total Counted 100 07/10/18 07:20 Seg Neutrophils % Automobile Brakes Bonder 07/10/18 07:20 Seg Neuts % (Manual) 98.0 % (40.0-70.0) H 07/10/18 07:20 Band Neutrophils % 0 % 07/10/18 07:20 Lymphocytes % (Manual) 2.0 % (13.4-35.0) L 07/10/18 07:20 Reactive Lymphs % (Man) 0 % 07/10/18 07:20 Monocytes % (Manual) 0 % (0.0-7.3) 07/10/18 07:20 Eosinophils % (Manual) 0 % (0.0-4.3) 07/10/18 07:20 Basophils % (Manual) 0 % (0.0-1.8) 07/10/18 07:20 Metamyelocytes % 0 % 07/10/18 07:20 Myelocytes % 0 % 07/10/18 07:20 Promyelocytes % 0 % 07/10/18 07:20 Blast Cells % 0 % 07/10/18 07:20 Nucleated RBC % Not Reportable 07/10/18 07:20 Seg Neutrophils # Man 10.8 K/mm3 (1.8-7.7) H 07/10/18 07:20 Band Neutrophils # 0.0 K/mm3 07/10/18 07:20 Abs Lymphs (Manual) 409 cells/uL (850-3900) L 06/19/18 07:11 Lymphocytes # (Manual) 0.2 K/mm3 (1.2-5.4) L 07/10/18 07:20 Abs React Lymphs (Man) 0.0 K/mm3 07/10/18 07:20 Monocytes # (Manual) 0.0 K/mm3 (0.0-0.8) 07/10/18 07:20 Eosinophils # (Manual) 0.0 K/mm3 (0.0-0.4) 07/10/18 07:20 Basophils # (Manual) 0.0 K/mm3 (0.0-0.1) 07/10/18 07:20 Metamyelocytes # 0.0 K/mm3 07/10/18 07:20 Myelocytes # 0.0 K/mm3 07/10/18 07:20 Promyelocytes # 0.0 K/mm3 07/10/18 07:20 Blast Cells # 0.0 K/mm3 07/10/18 07:20 WBC Morphology Not Reportable 07/10/18 07:20 Hypersegmented Neuts Not Reportable 07/10/18 07:20 Hyposegmented Neuts Not Reportable 07/10/18 07:20 Hypogranular Neuts Not Reportable 07/10/18 07:20 Smudge Cells Not Reportable 07/10/18 07:20 Toxic Granulation Not Reportable 07/10/18 07:20 Toxic Vacuolation Not Reportable 07/10/18 07:20 Dohle Bodies Not Reportable 07/10/18 07:20 Pelger-Huet Anomaly Not Reportable 07/10/18 07:20 Loretta Rods Not Reportable 07/10/18 07:20 Platelet Estimate Consistent w auto 07/10/18 07:20 Clumped Platelets Not Reportable 07/10/18 07:20 Plt Clumps, EDTA Not Reportable 07/10/18 07:20 Large Platelets Not Reportable 07/10/18 07:20 Giant Platelets Not Reportable 07/10/18 07:20 Platelet Satelliting Not Reportable 07/10/18 07:20 Plt Morphology Comment Not Reportable 07/10/18 07:20 RBC Morphology Not Reportable 07/10/18 07:20 Dimorphic RBCs Not Reportable 07/10/18 07:20 Polychromasia Not Reportable 07/10/18 07:20 Hypochromasia Not Reportable 07/10/18 07:20 Poikilocytosis 1+ 07/10/18 07:20 Anisocytosis 1+ 07/10/18 07:20 Microcytosis Rare 07/10/18 07:20 Macrocytosis Not Reportable 07/10/18 07:20 Spherocytes Not Reportable 07/10/18 07:20 Pappenheimer Bodies Not Reportable 07/10/18 07:20 Sickle Cells Not Reportable 07/10/18 07:20 Target Cells Not Reportable 07/10/18 07:20 Tear Drop Cells Rare 07/10/18 07:20 Ovalocytes Not Reportable 07/10/18 07:20 Stomatocytes 1+ 07/07/18 04:00 Helmet Cells Not Reportable 07/10/18 07:20 [place] Bodies Not Reportable 07/10/18 07:20 [place] Rings Not Reportable 07/10/18 07:20 Welch Cells Not Reportable 07/10/18 07:20 Bite Cells Not Reportable 07/10/18 07:20 Crenated Cell Not Reportable 07/10/18 07:20 Elliptocytes Not Reportable 07/10/18 07:20 Acanthocytes (Spur) Not Reportable 07/10/18 07:20 Rouleaux Not Reportable 07/10/18 07:20 Hemoglobin C Crystals Not Reportable 07/10/18 07:20 Schistocytes Not Reportable 07/10/18 07:20 Malaria parasites Not Reportable 07/10/18 07:20 Jesus Bodies Not Reportable 07/10/18 07:20 Hem Pathologist Commnt No 07/10/18 07:20 PT 14.3 Sec. (12.2-14.9) 07/01/18 09:11 INR 1.05 (0.87-1.13) 07/01/18 09:11 APTT 28.7 Sec. (24.2-36.6) 06/19/18 Unknown Fibrinogen 428 mg/dl (211-480) 07/01/18 10:00 D-Dimer 2387.14 ng/mlDDU (0-234) H 07/01/18 10:00 POC ABG pH 7.279 (7.35-7.45) L 07/08/18 04:05 POC ABG pCO2 100.4 (35-45) H 07/08/18 04:05 POC ABG pO2 134 (80-105) H 07/08/18 04:05 POC ABG HCO3 47.0 07/08/18 04:05 POC ABG Total CO2 > 50 07/08/18 04:05 POC ABG O2 Sat 98 07/08/18 04:05 POC ABG Base Excess 20 07/08/18 04:05 FiO2 100 % 07/08/18 04:05 Sodium 152 mmol/L (137-145) H 07/10/18 07:20 Potassium 5.1 mmol/L (3.6-5.0) H 07/10/18 07:20 Chloride 104.3 mmol/L (98-107) 07/10/18 07:20 Carbon Dioxide 41 mmol/L (22-30) H* 07/10/18 07:20 Anion Gap 12 mmol/L 07/10/18 07:20 BUN 44 mg/dL (9-20) H 07/10/18 07:20 Creatinine 1.2 mg/dL (0.8-1.5) D 07/10/18 07:20 Estimated GFR > 60 ml/min 07/10/18 07:20 BUN/Creatinine Ratio 37 % 07/10/18 07:20 Glucose 144 mg/dL (75-100) H 07/10/18 07:20 POC Glucose 125 (70-105) H 07/08/18 17:37 Hemoglobin A1c 6.3 % (4-6) H 07/07/18 04:00 Lactic Acid 1.70 mmol/L (0.7-2.0) 06/19/18 05:26 Calcium 7.9 mg/dL (8.4-10.2) L 07/10/18 07:20 Total Bilirubin < 0.20 mg/dL (0.1-1.2) 06/23/18 05:11 Direct Bilirubin < 0.2 mg/dL (0-0.2) 06/19/18 Unknown Indirect Bilirubin 0.2 mg/dL 06/19/18 Unknown AST 63 units/L (5-40) H 06/23/18 05:11 ALT 297 units/L (7-56) H 06/23/18 05:11 Alkaline Phosphatase 127 units/L (35-129) 06/23/18 05:11 Troponin T < 0.010 ng/mL (0.00-0.029) 06/19/18 Unknown C-Reactive Protein 1.60 mg/dL (0.00-1.30) H 06/23/18 18:40 NT-Pro-B Natriuret Pep 226.4 pg/mL (0-450) 06/19/18 Unknown Total Protein 5.3 g/dL (6.3-8.2) L 06/23/18 05:11 Albumin 2.4 g/dL (3.9-5) L 06/23/18 05:11 Albumin/Globulin Ratio 0.8 % 06/23/18 05:11 Triglycerides 250 mg/dL (2-149) H 07/04/18 Unknown Urine Color Yellow (Yellow) 06/24/18 22:45 Urine Turbidity Slightly-cloudy (Clear) 06/24/18 22:45 Urine pH 5.0 (5.0-7.0) 06/24/18 22:45 Ur Specific [place] 1.014 (1.003-1.030) 06/24/18 22:45 Urine Protein <15 mg/dl mg/dL (Negative) 06/24/18 22:45 Urine Glucose (UA) Neg mg/dL (Negative) 06/24/18 22:45 Urine Ketones Neg mg/dL (Negative) 06/24/18 22:45 Urine Blood Neg (Negative) 06/24/18 22:45 Urine Nitrite Neg (Negative) 06/24/18 22:45 Urine Bilirubin Neg (Negative) 06/24/18 22:45 Urine Urobilinogen < 2.0 mg/dL (<2.0) 06/24/18 22:45 Ur Leukocyte Esterase Neg (Negative) 06/24/18 22:45 Urine WBC (Auto) 9.0 /HPF (0.0-6.0) H 06/24/18 22:45 Urine RBC (Auto) 19.0 /HPF (0.0-6.0) 06/24/18 22:45 U Epithel Cells (Auto) < 1.0 /HPF (0-13.0) 06/19/18 08:07 Urine Bacteria (Auto) 1+ /HPF (Negative) 06/24/18 22:45 Hyaline Casts 1 /LPF 06/24/18 22:45 Urine Mucus Few /HPF 06/19/18 08:07 Urine Yeast (Budding) 1+ /HPF 06/24/18 22:45 Urine Eosinophils None seen (None Seen) 06/24/18 22:45 Urine Creatinine 47.2 mg/dL (0.1-20.0) H 06/24/18 22:45 Urine Sodium 40 mmol/L 06/24/18 22:45 Urine Total Protein 25 mg/dL (5-11.8) H 06/24/18 22:45 Random Vancomycin 6.5 ug/mL (0-40.0) 06/25/18 11:40 Urine Opiates Screen Presumptive negative 06/19/18 08:06 Urine Methadone Screen Presumptive negative 06/19/18 08:06 Ur Barbiturates Screen Presumptive negative 06/19/18 08:06 Ur Phencyclidine Scrn Presumptive negative 06/19/18 08:06 Ur Amphetamines Screen Presumptive negative 06/19/18 08:06 U Benzodiazepines Scrn Presumptive positive 06/19/18 08:06 Urine Cocaine Screen Presumptive negative 06/19/18 08:06 U Marijuana (THC) Screen Presumptive negative 06/19/18 08:06 Drugs of Abuse Note Disclamer 06/19/18 08:06 Lymph Enumerat CD4/CD8 0.05 (0.86-5.00) L 06/19/18 07:11 % CD3 Cells 45 % (57-85) L 06/19/18 07:11 Absolute CD3 Count 185 cells/uL (840-3060) L 06/19/18 07:11 % CD4 Cells 2 % (30-61) L 06/19/18 07:11 Absolute CD4 Count 10 cells/uL (490-1740) L 06/19/18 07:11 % CD8 Cells 43 % (12-42) H 06/19/18 07:11 Absolute CD8 Count 167 cells/uL (180-1170) L 06/19/18 07:11 % CD19 Cells 18 % (6-29) 06/19/18 07:11 Absolute CD19 Count 79 cells/uL (110-660) L 06/19/18 07:11 CMV DNA PCR log copyright clerk/mL See scanned report 06/19/18 15:16 Hepatitis A IgM Ab Non-reactive (NonReactive) 06/21/18 04:19 Hep Bs Antigen Non-reactive (Negative) 06/21/18 04:19 Hep B Core IgM Ab Non-reactive (NonReactive) 06/21/18 04:19 Hepatitis C Antibody Non-reactive (NonReactive) 06/21/18 04:19 HIV DNA Qual (PCR) Detected (Not Detected) H 06/19/18 09:20 HIV-1 Antibody See scanned results 06/19/18 07:12 HIV-1 RNA PCR copies/ml [id number] Copies/mL H 06/19/18 15:16 HIV-1 RNA (PCR) log 6.11 Log cps/mL H 06/19/18 15:16 HIV-1 Genotyping See scanned result 06/19/18 09:20 HIV-2 Ab (Immunoblot) See scanned results 06/19/18 07:12 HIV 1&2 Antibody Rapid Reactive (Non React) 06/19/18 07:10 HIV P24 Antigen Invalid (Non React) 06/19/18 07:10 Influenza A (Rapid) Negative (Negative) 06/19/18 Unknown Influenza A (RT-PCR) Negative (Negative) 06/21/18 12:30 Influenza B (Rapid) Negative (Negative) 06/19/18 Unknown Influenza B (RT-PCR) Negative (Negative) 06/21/18 12:30 Toxoplasma IgG Ab <7.20 IU/mL (<7.20) 07/03/18 10:24 Miscellaneous Test Flexitest 1 H 06/27/18 05:15 Blood Type O POSITIVE 07/08/18 09:53 Antibody Screen Negative 07/08/18 09:53 Crossmatch See Detail 07/08/18 09:53 Nutrition/Malnutrition Assess - Dietary Evaluation Nutrition/Malnutrition Findings: Nutrition Notes Start: 06/19/18 14:17 Freq: Status: Active Protocol: Document 07/09/18 16:18 EROS (Rec: 07/09/18 16:24 [facility] SR[facility]- [id number]) Nutrition Notes Initial or Follow up Reassessment Current Diagnosis Acute Kidney Injury, Respiratory Failure Other Pertinent Diagnosis Bilat pneu, HIV/AIDS Current Diet TF - Nepro at 50ml/hr Labs/Tests (07/08/18) Na 156 BUN 40 BG 200 Pertinent Medications D5Wat 50ml/hr Lantus Height 5 ft 9 in Weight 89.5 kg [place] Body Weight (kg) 72.72 BMI 29.1 Weight change and time frame Current wt obtained from bed scale Subjective/Other Information Pt tolerating TF at goal rate, per RN. He remains on vent support. He is receiving 300ml water flushes q4h. Percent of energy/protein needs met: 98% energy 91% pro Burn Absent Trauma Absent #1 Nutrition Diagnosis Inadequate oral intake Diagnosis Progress(for reassessment Continues documentation) Is patient on ventilator? Yes Is Patient Ambulatory and/or Out of Bed No REE-([facility]-confined to bed) [phone] Calculation Used for Recommendations [facility] Additional Notes Pro needs 1.2-2g/k-179g/ day Fluid needs per MD Nutrition Intervention Nutrition Support: Continue Nepro at 50 ml/hr with 300 ml water flush q4h or per MD. Kcal 2,160 Protein (gm) 97 Fluid (mL) 872 Goal #1 TF tolerance Goal #2 TF to continue to meet 80-100% of kcal and protein needs. Follow-Up By: 07/12/18 Additional Comments F/U: Na lab, water flushes
[2018-07-10] MEDS ORDERED: KIONEX PO ONE (10:00)
[2018-07-10] MEDS: MEPRON PO SCH ×2 (10:03→22:08)
[2018-07-10] MEDS: PREVACID SOLUTAB FEEDTUBE SCH (10:03)
[2018-07-10] MEDS: SOLU-Medrol IV SCH (10:03)
[2018-07-10] MEDS: MAXIPIME/NS 2 GM/100 ML 2 GM/100 ML BAG IV SCH ×2 (10:03→22:08)
[2018-07-10] MEDS: SODIUM CHLORIDE FLUSH SYRINGE 10 ML IV SCH ×2 (12:15→22:08)
[2018-07-10] MEDS: ARTIFICIAL TEARS OPHTH OINT OU PRN (12:16)
[2018-07-10] MEDS ORDERED: TRANSDERM-SCOP TD SCH (13:00)
--- NOTE | 2018-07-10 13:25 | Progress Note ---
Assessment and Plan ARDS Acute Hypoxemic Respiratory Failure on MVS AIDS / HIV positive Severe Sepsis due to Pneumonia LLext DVT Hyponatremia Severe metabolic acidosis Shock liver - allow sedation to RASS -4 - keep Peep at 16 cmH2O for now re: barotrauma issues - repeat ABG today - continue to accept higher PIP's as severe hypercapnic acidosis otherwise - continue to target TV 4-6 ml/kg IBW as goal ultimately - continue to wean supplemental oxygen to keep O2 sats > 89% (again reduced to 90% at bedside) - continue permissive hypercapnia strategies - continue anti-infectives per ID recs - 2D ECHO with normal EF - continue to titrate sedatives for RASS -2 while on ARDS ventilation - continue anti-infective's per ID recommendations - trend CRP and lactate levels as necessary to aid clinical decision making - continue bronchodilators with pulmonary hygiene per RT - continue hyperventilation acutely to compensate for metabolic acidosis - VAP bundle addressed - daily SAT's - Daily SBT assessment - GI & VTE prophylaxis - enteral nutrition as tolerated - continue accuchecks q6h with glycemic control per SSI for target BG 140-180 mg/dL - continue other care per attending / other industry consultant's .... re-evaluate in am & prn .... case discussed at length with healthcare staff during team rounds PROGNOSIS TRULY GUARDED CODE STATUS: FULL CODE The high probability of a clinically significant, sudden or life-threatening deterioration of the [cardiac, neurology] system(s) required my full and direct attention, intervention and personal management. The aggregate critical care time was [35] minutes without overlap. Time includes spent on; [x] Data Review and interpretation [x] Patient assessment and monitoring of vital signs [x] Documentation [x] Medication orders and management Subjective Date of service: 07/09/18 Principal diagnosis: Acute Hypoxemic Resp Failure; AIDS / HIV positive; Severe Sepsis due to PNA Interval history: Subjective Date of service: 07/10/18 Principal diagnosis: Acute Hypoxemic Resp Failure; AIDS / HIV positive; Severe Sepsis due to PNA Interval history: Patient is seen today for: Acute Hypoxemic Respiratory Failure on MVS; AIDS / HIV positive; Severe Sepsis due to Pneumonia; Hyponatremia; Severe metabolic acidosis Seen and examined at bedside; 24hour events reviewed; nursing and respiratory care staff consulted; no adverse overnight events reported to me; remains on MVS; still desaturates with minimal stimulation even for cleaning; FiO2 again at 100%; + bloody oropharyngeal secretions but not from ETT or NGT Objective Vital Signs - 12hr 07/10/18 07/10/18 07/10/18 01:30 02:00 02:01 Temperature Pulse Rate 112 H 113 H Pulse Rate [ 116 H Bilateral] Pulse Rate [ From Monitor] Respiratory Rate Respiratory 45 H Rate [Bilateral ] Blood Pressure 104/54 120/58 O2 Sat by Pulse 97 96 Oximetry 07/10/18 07/10/18 07/10/18 02:30 03:01 03:30 Temperature Pulse Rate 117 H 129 H 118 H Pulse Rate [ Bilateral] Pulse Rate [ From Monitor] Respiratory Rate Respiratory Rate [Bilateral ] Blood Pressure 101/57 110/80 95/60 O2 Sat by Pulse 98 87 96 Oximetry 07/10/18 07/10/18 07/10/18 03:38 04:00 04:30 Temperature 100.5 F H Pulse Rate 121 H 115 H Pulse Rate [ Bilateral] Pulse Rate [ From Monitor] Respiratory Rate Respiratory Rate [Bilateral ] Blood Pressure 105/53 109/52 O2 Sat by Pulse 93 91 Oximetry 07/10/18 07/10/18 07/10/18 05:01 05:30 06:01 Temperature Pulse Rate 121 H 121 H 124 H Pulse Rate [ Bilateral] Pulse Rate [ From Monitor] Respiratory Rate Respiratory Rate [Bilateral ] Blood Pressure 105/53 105/49 97/54 O2 Sat by Pulse 94 88 90 Oximetry 07/10/18 07/10/18 07/10/18 06:30 07:00 07:31 Temperature Pulse Rate 121 H 124 H 128 H Pulse Rate [ Bilateral] Pulse Rate [ From Monitor] Respiratory Rate Respiratory Rate [Bilateral ] Blood Pressure 109/73 101/53 124/28 O2 Sat by Pulse 93 98 97 Oximetry 07/10/18 07/10/18 07/10/18 08:00 08:01 08:30 Temperature 99.5 F Pulse Rate 128 H 122 H Pulse Rate [ Bilateral] Pulse Rate [ 121 H From Monitor] Respiratory 30 H Rate Respiratory Rate [Bilateral ] Blood Pressure 120/71 125/63 O2 Sat by Pulse 97 94 94 Oximetry 07/10/18 07/10/18 07/10/18 08:51 08:54 09:00 Temperature Pulse Rate 123 H 125 H Pulse Rate [ 123 H Bilateral] Pulse Rate [ From Monitor] Respiratory Rate Respiratory 31 H Rate [Bilateral ] Blood Pressure 116/52 123/61 O2 Sat by Pulse 96 95 Oximetry 07/10/18 07/10/18 07/10/18 09:30 10:00 10:30 Temperature Pulse Rate 127 H 124 H 128 H Pulse Rate [ Bilateral] Pulse Rate [ From Monitor] Respiratory Rate Respiratory Rate [Bilateral ] Blood Pressure 117/54 118/50 115/45 O2 Sat by Pulse 97 97 96 Oximetry 07/10/18 07/10/18 11:00 12:57 Temperature Pulse Rate 132 H 125 H Pulse Rate [ Bilateral] Pulse Rate [ From Monitor] Respiratory Rate Respiratory Rate [Bilateral ] Blood Pressure 128/46 122/52 O2 Sat by Pulse 96 97 Oximetry Constitutional: appears uncomfortable, other (young HM normocephalic and atraumatic with moderately increased respiratory effort at rest) Eyes: non-icteric ENT: oropharynx moist, other (ETT 23 cm SATISH) Neck: supple, no lymphadenopathy, no JVD, other (no thyromegaly) Effort: mildly labored Ascultation: Bilateral: diminished breath sounds, rhonchi Percussion: Bilateral: not dull Cardiovascular: regular rate and rhythm Gastrointestinal: normoactive bowel sounds, soft, non-tender, non-distended Integumentary: rash Extremities: no cyanosis, pink and warm, pulses normal, no ischemia or petechiae, edema (trace) Neurologic: non-focal exam (grossly), pupils equal and round, motor strength normal and, unable to assess Psychiatric: other (unable to assess) CBC and BMP: 07/10/18 07:20 07/10/18 07:20 ABG, PT/INR, D-dimer: ABG POC ABG pH 7.279 (7.35-7.45) L 07/08/18 04:05 POC ABG pCO2 100.4 (35-45) H 07/08/18 04:05 POC ABG pO2 134 (80-105) H 07/08/18 04:05 POC ABG HCO3 47.0 07/08/18 04:05 POC ABG Total CO2 > 50 07/08/18 04:05 POC ABG O2 Sat 98 07/08/18 04:05 PT/INR, D-dimer PT 14.3 Sec. (12.2-14.9) 07/01/18 09:11 INR 1.05 (0.87-1.13) 07/01/18 09:11 D-Dimer 2387.14 ng/mlDDU (0-234) H 07/01/18 10:00 Abnormal lab findings: Abnormal Labs 06/19/18 06/19/18 06/19/18 03:31 07:11 07:42 WBC RBC Hgb Hct MCV MCHC RDW Plt Count Seg Neuts % (Manual) Lymphocytes % (Manual) Nucleated RBC % Seg Neutrophils # Man Abs Lymphs (Manual) 409 L Lymphocytes # (Manual) PT INR D-Dimer POC ABG pH 6.974 L POC ABG pCO2 22.0 L 83.4 H POC ABG pO2 28 L 122 H Sodium Potassium Chloride Carbon Dioxide BUN Creatinine Glucose POC Glucose Hemoglobin A1c Calcium AST ALT C-Reactive Protein Total Protein Albumin Triglycerides Lipase Ur Specific [place] Urine WBC (Auto) Urine Creatinine Urine Total Protein Lymph Enumerat CD4/CD8 0.05 L % CD3 Cells 45 L Absolute CD3 Count 185 L % CD4 Cells 2 L Absolute CD4 Count 10 L % CD8 Cells 43 H Absolute CD8 Count 167 L Absolute CD19 Count 79 L HIV DNA Qual (PCR) HIV-1 RNA PCR copies/ml HIV-1 RNA (PCR) log Miscellaneous Test Crossmatch 06/19/18 06/19/18 06/19/18 08:07 08:16 09:20 WBC RBC Hgb Hct MCV MCHC RDW Plt Count Seg Neuts % (Manual) Lymphocytes % (Manual) Nucleated RBC % Seg Neutrophils # Man Abs Lymphs (Manual) Lymphocytes # (Manual) PT INR D-Dimer POC ABG pH 6.996 L POC ABG pCO2 82.4 H POC ABG pO2 Sodium Potassium Chloride Carbon Dioxide BUN Creatinine Glucose POC Glucose Hemoglobin A1c Calcium AST ALT C-Reactive Protein Total Protein Albumin Triglycerides Lipase Ur Specific [place] 1.060 H Urine WBC (Auto) 8.0 H Urine Creatinine Urine Total Protein Lymph Enumerat CD4/CD8 % CD3 Cells Absolute CD3 Count % CD4 Cells Absolute CD4 Count % CD8 Cells Absolute CD8 Count Absolute CD19 Count HIV DNA Qual (PCR) Detected H HIV-1 RNA PCR copies/ml HIV-1 RNA (PCR) log Miscellaneous Test Crossmatch 06/19/18 06/19/18 06/19/18 09:49 11:15 15:16 WBC RBC Hgb Hct MCV MCHC RDW Plt Count Seg Neuts % (Manual) Lymphocytes % (Manual) Nucleated RBC % Seg Neutrophils # Man Abs Lymphs (Manual) Lymphocytes # (Manual) PT INR D-Dimer POC ABG pH 7.198 L 7.206 L POC ABG pCO2 POC ABG pO2 75 L Sodium Potassium Chloride Carbon Dioxide BUN Creatinine Glucose POC Glucose Hemoglobin A1c Calcium AST ALT C-Reactive Protein Total Protein Albumin Triglycerides Lipase Ur Specific [place] Urine WBC (Auto) Urine Creatinine Urine Total Protein Lymph Enumerat CD4/CD8 % CD3 Cells Absolute CD3 Count % CD4 Cells Absolute CD4 Count % CD8 Cells Absolute CD8 Count Absolute CD19 Count HIV DNA Qual (PCR) HIV-1 RNA PCR copies/ml 1814792 H HIV-1 RNA (PCR) log 6.11 H Miscellaneous Test Crossmatch 06/19/18 06/19/18 06/19/18 18:54 Unknown Unknown WBC 12.9 H RBC Hgb Hct MCV MCHC RDW Plt Count Seg Neuts % (Manual) Lymphocytes % (Manual) 5.0 L Nucleated RBC % Seg Neutrophils # Man Abs Lymphs (Manual) Lymphocytes # (Manual) 0.6 L PT 15.9 H INR 1.19 H D-Dimer 8449.09 H POC ABG pH POC ABG pCO2 POC ABG pO2 Sodium Potassium Chloride Carbon Dioxide BUN Creatinine Glucose POC Glucose 196 H Hemoglobin A1c Calcium AST ALT C-Reactive Protein Total Protein Albumin Triglycerides Lipase Ur Specific [place] Urine WBC (Auto) Urine Creatinine Urine Total Protein Lymph Enumerat CD4/CD8 % CD3 Cells Absolute CD3 Count % CD4 Cells Absolute CD4 Count % CD8 Cells Absolute CD8 Count Absolute CD19 Count HIV DNA Qual (PCR) HIV-1 RNA PCR copies/ml HIV-1 RNA (PCR) log Miscellaneous Test Crossmatch 06/19/18 06/19/18 06/20/18 Unknown Unknown 04:33 WBC RBC Hgb Hct MCV MCHC RDW Plt Count Seg Neuts % (Manual) Lymphocytes % (Manual) Nucleated RBC % Seg Neutrophils # Man Abs Lymphs (Manual) Lymphocytes # (Manual) PT INR D-Dimer POC ABG pH 7.249 L POC ABG pCO2 POC ABG pO2 118 H Sodium 129 L Potassium Chloride 90.7 L Carbon Dioxide 17 L BUN Creatinine 0.6 L Glucose 199 H POC Glucose Hemoglobin A1c Calcium 8.1 L AST 53 H ALT C-Reactive Protein Total Protein 6.0 L Albumin 2.8 L Triglycerides Lipase Ur Specific [place] Urine WBC (Auto) Urine Creatinine Urine Total Protein Lymph Enumerat CD4/CD8 % CD3 Cells Absolute CD3 Count % CD4 Cells Absolute CD4 Count % CD8 Cells Absolute CD8 Count Absolute CD19 Count HIV DNA Qual (PCR) HIV-1 RNA PCR copies/ml HIV-1 RNA (PCR) log Miscellaneous Test Crossmatch 06/20/18 06/20/18 06/20/18 08:13 08:13 12:59 WBC 11.8 H RBC 3.25 L Hgb 9.8 L D Hct 30.4 L D MCV MCHC RDW Plt Count Seg Neuts % (Manual) 99.0 H Lymphocytes % (Manual) 1.0 L Nucleated RBC % Seg Neutrophils # Man 11.7 H Abs Lymphs (Manual) Lymphocytes # (Manual) 0.1 L PT INR D-Dimer POC ABG pH POC ABG pCO2 POC ABG pO2 Sodium Potassium Chloride Carbon Dioxide 19 L BUN Creatinine Glucose 223 H POC Glucose 174 H Hemoglobin A1c Calcium 6.6 L D AST 1240 H ALT 836 H C-Reactive Protein Total Protein 4.9 L Albumin 2.1 L Triglycerides Lipase Ur Specific [place] Urine WBC (Auto) Urine Creatinine Urine Total Protein Lymph Enumerat CD4/CD8 % CD3 Cells Absolute CD3 Count % CD4 Cells Absolute CD4 Count % CD8 Cells Absolute CD8 Count Absolute CD19 Count HIV DNA Qual (PCR) HIV-1 RNA PCR copies/ml HIV-1 RNA (PCR) log Miscellaneous Test Crossmatch 06/20/18 06/20/18 06/21/18 17:42 23:44 04:08 WBC RBC Hgb Hct MCV MCHC RDW Plt Count Seg Neuts % (Manual) Lymphocytes % (Manual) Nucleated RBC % Seg Neutrophils # Man Abs Lymphs (Manual) Lymphocytes # (Manual) PT INR D-Dimer POC ABG pH 7.309 L POC ABG pCO2 POC ABG pO2 Sodium Potassium Chloride Carbon Dioxide BUN Creatinine Glucose POC Glucose 177 H 195 H Hemoglobin A1c Calcium AST ALT C-Reactive Protein Total Protein Albumin Triglycerides Lipase Ur Specific [place] Urine WBC (Auto) Urine Creatinine Urine Total Protein Lymph Enumerat CD4/CD8 % CD3 Cells Absolute CD3 Count % CD4 Cells Absolute CD4 Count % CD8 Cells Absolute CD8 Count Absolute CD19 Count HIV DNA Qual (PCR) HIV-1 RNA PCR copies/ml HIV-1 RNA (PCR) log Miscellaneous Test Crossmatch 06/21/18 06/21/18 06/21/18 04:19 04:19 05:27 WBC 13.8 H RBC 3.02 L Hgb 9.2 L Hct 28.0 L MCV MCHC RDW Plt Count Seg Neuts % (Manual) Lymphocytes % (Manual) Nucleated RBC % Seg Neutrophils # Man Abs Lymphs (Manual) Lymphocytes # (Manual) PT INR D-Dimer POC ABG pH POC ABG pCO2 POC ABG pO2 Sodium 135 L Potassium Chloride Carbon Dioxide 21 L BUN Creatinine 0.7 L Glucose 161 H POC Glucose 187 H Hemoglobin A1c Calcium 7.2 L AST 390 H ALT 622 H C-Reactive Protein Total Protein 5.3 L Albumin 2.4 L Triglycerides Lipase Ur Specific [place] Urine WBC (Auto) Urine Creatinine Urine Total Protein Lymph Enumerat CD4/CD8 % CD3 Cells Absolute CD3 Count % CD4 Cells Absolute CD4 Count % CD8 Cells Absolute CD8 Count Absolute CD19 Count HIV DNA Qual (PCR) HIV-1 RNA PCR copies/ml HIV-1 RNA (PCR) log Miscellaneous Test Crossmatch 06/21/18 06/21/18 06/21/18 11:33 12:32 17:45 WBC RBC Hgb Hct MCV MCHC RDW Plt Count Seg Neuts % (Manual) Lymphocytes % (Manual) Nucleated RBC % Seg Neutrophils # Man Abs Lymphs (Manual) Lymphocytes # (Manual) PT INR D-Dimer POC ABG pH POC ABG pCO2 POC ABG pO2 Sodium Potassium Chloride Carbon Dioxide BUN Creatinine Glucose POC Glucose 147 H 172 H Hemoglobin A1c Calcium AST ALT C-Reactive Protein Total Protein Albumin Triglycerides Lipase Ur Specific [place] Urine WBC (Auto) Urine Creatinine Urine Total Protein Lymph Enumerat CD4/CD8 % CD3 Cells Absolute CD3 Count % CD4 Cells Absolute CD4 Count % CD8 Cells Absolute CD8 Count Absolute CD19 Count HIV DNA Qual (PCR) HIV-1 RNA PCR copies/ml HIV-1 RNA (PCR) log Miscellaneous Test see below H Crossmatch 06/21/18 06/22/18 06/22/18 23:25 04:47 04:47 WBC 11.5 H RBC 2.93 L Hgb 9.0 L Hct 26.5 L MCV MCHC RDW Plt Count Seg Neuts % (Manual) Lymphocytes % (Manual) Nucleated RBC % Seg Neutrophils # Man Abs Lymphs (Manual) Lymphocytes # (Manual) PT INR D-Dimer POC ABG pH POC ABG pCO2 POC ABG pO2 Sodium Potassium Chloride Carbon Dioxide BUN 22 H Creatinine Glucose 201 H POC Glucose 152 H Hemoglobin A1c Calcium 7.8 L AST 129 H ALT 416 H C-Reactive Protein Total Protein 5.3 L Albumin 2.4 L Triglycerides Lipase Ur Specific [place] Urine WBC (Auto) Urine Creatinine Urine Total Protein Lymph Enumerat CD4/CD8 % CD3 Cells Absolute CD3 Count % CD4 Cells Absolute CD4 Count % CD8 Cells Absolute CD8 Count Absolute CD19 Count HIV DNA Qual (PCR) HIV-1 RNA PCR copies/ml HIV-1 RNA (PCR) log Miscellaneous Test Crossmatch 06/22/18 06/22/18 06/22/18 05:23 11:43 17:45 WBC RBC Hgb Hct MCV MCHC RDW Plt Count Seg Neuts % (Manual) Lymphocytes % (Manual) Nucleated RBC % Seg Neutrophils # Man Abs Lymphs (Manual) Lymphocytes # (Manual) PT INR D-Dimer POC ABG pH POC ABG pCO2 POC ABG pO2 Sodium Potassium Chloride Carbon Dioxide BUN Creatinine Glucose POC Glucose 170 H 175 H 176 H Hemoglobin A1c Calcium AST ALT C-Reactive Protein Total Protein Albumin Triglycerides Lipase Ur Specific [place] Urine WBC (Auto) Urine Creatinine Urine Total Protein Lymph Enumerat CD4/CD8 % CD3 Cells Absolute CD3 Count % CD4 Cells Absolute CD4 Count % CD8 Cells Absolute CD8 Count Absolute CD19 Count HIV DNA Qual (PCR) HIV-1 RNA PCR copies/ml HIV-1 RNA (PCR) log Miscellaneous Test Crossmatch 06/23/18 06/23/18 06/23/18 00:24 05:06 05:11 WBC 11.2 H RBC 2.78 L Hgb 8.6 L Hct 25.3 L MCV MCHC RDW Plt Count Seg Neuts % (Manual) Lymphocytes % (Manual) Nucleated RBC % Seg Neutrophils # Man Abs Lymphs (Manual) Lymphocytes # (Manual) PT INR D-Dimer POC ABG pH POC ABG pCO2 POC ABG pO2 Sodium Potassium Chloride Carbon Dioxide BUN Creatinine Glucose POC Glucose 178 H 182 H Hemoglobin A1c Calcium AST ALT C-Reactive Protein Total Protein Albumin Triglycerides Lipase Ur Specific [place] Urine WBC (Auto) Urine Creatinine Urine Total Protein Lymph Enumerat CD4/CD8 % CD3 Cells Absolute CD3 Count % CD4 Cells Absolute CD4 Count % CD8 Cells Absolute CD8 Count Absolute CD19 Count HIV DNA Qual (PCR) HIV-1 RNA PCR copies/ml HIV-1 RNA (PCR) log Miscellaneous Test Crossmatch 06/23/18 06/23/18 06/23/18 05:11 05:51 12:21 WBC RBC Hgb Hct MCV MCHC RDW Plt Count Seg Neuts % (Manual) Lymphocytes % (Manual) Nucleated RBC % Seg Neutrophils # Man Abs Lymphs (Manual) Lymphocytes # (Manual) PT INR D-Dimer POC ABG pH POC ABG pCO2 POC ABG pO2 69 L Sodium Potassium Chloride Carbon Dioxide BUN 34 H Creatinine 1.7 H D Glucose 191 H POC Glucose 181 H Hemoglobin A1c Calcium 7.5 L AST 63 H ALT 297 H C-Reactive Protein Total Protein 5.3 L Albumin 2.4 L Triglycerides Lipase Ur Specific [place] Urine WBC (Auto) Urine Creatinine Urine Total Protein Lymph Enumerat CD4/CD8 % CD3 Cells Absolute CD3 Count % CD4 Cells Absolute CD4 Count % CD8 Cells Absolute CD8 Count Absolute CD19 Count HIV DNA Qual (PCR) HIV-1 RNA PCR copies/ml HIV-1 RNA (PCR) log Miscellaneous Test Crossmatch 06/23/18 06/23/18 06/23/18 13:57 17:00 18:40 WBC RBC Hgb Hct MCV MCHC RDW Plt Count Seg Neuts % (Manual) Lymphocytes % (Manual) Nucleated RBC % Seg Neutrophils # Man Abs Lymphs (Manual) Lymphocytes # (Manual) PT INR D-Dimer POC ABG pH POC ABG pCO2 POC ABG pO2 Sodium Potassium Chloride Carbon Dioxide BUN 38 H Creatinine 1.8 H Glucose POC Glucose 196 H Hemoglobin A1c Calcium AST ALT C-Reactive Protein 1.60 H Total Protein Albumin Triglycerides Lipase Ur Specific [place] Urine WBC (Auto) Urine Creatinine Urine Total Protein Lymph Enumerat CD4/CD8 % CD3 Cells Absolute CD3 Count % CD4 Cells Absolute CD4 Count % CD8 Cells Absolute CD8 Count Absolute CD19 Count HIV DNA Qual (PCR) HIV-1 RNA PCR copies/ml HIV-1 RNA (PCR) log Miscellaneous Test Crossmatch 06/23/18 06/23/18 06/24/18 21:16 23:22 04:12 WBC RBC 2.89 L Hgb 8.8 L Hct 26.9 L MCV MCHC RDW Plt Count Seg Neuts % (Manual) Lymphocytes % (Manual) Nucleated RBC % Seg Neutrophils # Man Abs Lymphs (Manual) Lymphocytes # (Manual) PT INR D-Dimer POC ABG pH 7.311 L POC ABG pCO2 47.4 H POC ABG pO2 Sodium Potassium Chloride Carbon Dioxide BUN Creatinine Glucose POC Glucose 165 H Hemoglobin A1c Calcium AST ALT C-Reactive Protein Total Protein Albumin Triglycerides Lipase Ur Specific [place] Urine WBC (Auto) Urine Creatinine Urine Total Protein Lymph Enumerat CD4/CD8 % CD3 Cells Absolute CD3 Count % CD4 Cells Absolute CD4 Count % CD8 Cells Absolute CD8 Count Absolute CD19 Count HIV DNA Qual (PCR) HIV-1 RNA PCR copies/ml HIV-1 RNA (PCR) log Miscellaneous Test Crossmatch 06/24/18 06/24/18 06/24/18 04:12 04:46 05:24 WBC RBC Hgb Hct MCV MCHC RDW Plt Count Seg Neuts % (Manual) Lymphocytes % (Manual) Nucleated RBC % Seg Neutrophils # Man Abs Lymphs (Manual) Lymphocytes # (Manual) PT INR D-Dimer POC ABG pH 7.250 L POC ABG pCO2 55.8 H POC ABG pO2 Sodium Potassium 5.4 H Chloride Carbon Dioxide BUN 44 H Creatinine 2.2 H Glucose 206 H POC Glucose 183 H Hemoglobin A1c Calcium 7.5 L AST ALT C-Reactive Protein Total Protein Albumin Triglycerides Lipase Ur Specific [place] Urine WBC (Auto) Urine Creatinine Urine Total Protein Lymph Enumerat CD4/CD8 % CD3 Cells Absolute CD3 Count % CD4 Cells Absolute CD4 Count % CD8 Cells Absolute CD8 Count Absolute CD19 Count HIV DNA Qual (PCR) HIV-1 RNA PCR copies/ml HIV-1 RNA (PCR) log Miscellaneous Test Crossmatch 06/24/18 06/24/18 06/24/18 11:14 16:40 17:16 WBC RBC Hgb Hct MCV MCHC RDW Plt Count Seg Neuts % (Manual) Lymphocytes % (Manual) Nucleated RBC % Seg Neutrophils # Man Abs Lymphs (Manual) Lymphocytes # (Manual) PT INR D-Dimer POC ABG pH 7.067 L POC ABG pCO2 91.7 H POC ABG pO2 134 H Sodium Potassium Chloride Carbon Dioxide BUN Creatinine Glucose POC Glucose 151 H 195 H Hemoglobin A1c Calcium AST ALT C-Reactive Protein Total Protein Albumin Triglycerides Lipase Ur Specific [place] Urine WBC (Auto) Urine Creatinine Urine Total Protein Lymph Enumerat CD4/CD8 % CD3 Cells Absolute CD3 Count % CD4 Cells Absolute CD4 Count % CD8 Cells Absolute CD8 Count Absolute CD19 Count HIV DNA Qual (PCR) HIV-1 RNA PCR copies/ml HIV-1 RNA (PCR) log Miscellaneous Test Crossmatch 06/24/18 06/24/18 06/24/18 18:03 22:45 22:45 WBC RBC Hgb Hct MCV MCHC RDW Plt Count Seg Neuts % (Manual) Lymphocytes % (Manual) Nucleated RBC % Seg Neutrophils # Man Abs Lymphs (Manual) Lymphocytes # (Manual) PT INR D-Dimer POC ABG pH 7.234 L POC ABG pCO2 59.9 H POC ABG pO2 121 H Sodium Potassium Chloride Carbon Dioxide BUN Creatinine Glucose POC Glucose Hemoglobin A1c Calcium AST ALT C-Reactive Protein Total Protein Albumin Triglycerides Lipase Ur Specific [place] Urine WBC (Auto) 9.0 H Urine Creatinine 47.2 H Urine Total Protein 25 H Lymph Enumerat CD4/CD8 % CD3 Cells Absolute CD3 Count % CD4 Cells Absolute CD4 Count % CD8 Cells Absolute CD8 Count Absolute CD19 Count HIV DNA Qual (PCR) HIV-1 RNA PCR copies/ml HIV-1 RNA (PCR) log Miscellaneous Test Crossmatch 06/24/18 06/24/18 06/25/18 Unknown 23:59 04:36 WBC RBC Hgb Hct MCV MCHC RDW Plt Count Seg Neuts % (Manual) Lymphocytes % (Manual) Nucleated RBC % Seg Neutrophils # Man Abs Lymphs (Manual) Lymphocytes # (Manual) PT 15.6 H INR 1.17 H D-Dimer POC ABG pH 7.200 L POC ABG pCO2 65.3 H POC ABG pO2 Sodium Potassium Chloride Carbon Dioxide BUN Creatinine Glucose POC Glucose 233 H Hemoglobin A1c Calcium AST ALT C-Reactive Protein Total Protein Albumin Triglycerides Lipase Ur Specific [place] Urine WBC (Auto) Urine Creatinine Urine Total Protein Lymph Enumerat CD4/CD8 % CD3 Cells Absolute CD3 Count % CD4 Cells Absolute CD4 Count % CD8 Cells Absolute CD8 Count Absolute CD19 Count HIV DNA Qual (PCR) HIV-1 RNA PCR copies/ml HIV-1 RNA (PCR) log Miscellaneous Test Crossmatch 06/25/18 06/25/18 06/25/18 05:29 11:12 11:40 WBC RBC 2.67 L Hgb 8.5 L Hct 25.6 L MCV 96 H MCHC RDW 16.0 H Plt Count Seg Neuts % (Manual) Lymphocytes % (Manual) Nucleated RBC % Seg Neutrophils # Man Abs Lymphs (Manual) Lymphocytes # (Manual) PT INR D-Dimer POC ABG pH POC ABG pCO2 POC ABG pO2 Sodium Potassium Chloride Carbon Dioxide BUN Creatinine Glucose POC Glucose 212 H 244 H Hemoglobin A1c Calcium AST ALT C-Reactive Protein Total Protein Albumin Triglycerides Lipase Ur Specific [place] Urine WBC (Auto) Urine Creatinine Urine Total Protein Lymph Enumerat CD4/CD8 % CD3 Cells Absolute CD3 Count % CD4 Cells Absolute CD4 Count % CD8 Cells Absolute CD8 Count Absolute CD19 Count HIV DNA Qual (PCR) HIV-1 RNA PCR copies/ml HIV-1 RNA (PCR) log Miscellaneous Test Crossmatch 06/25/18 06/25/18 06/25/18 11:40 17:18 18:08 WBC RBC Hgb Hct MCV MCHC RDW Plt Count Seg Neuts % (Manual) Lymphocytes % (Manual) Nucleated RBC % Seg Neutrophils # Man Abs Lymphs (Manual) Lymphocytes # (Manual) PT INR D-Dimer POC ABG pH 7.206 L POC ABG pCO2 68.1 H POC ABG pO2 Sodium Potassium 5.8 H Chloride Carbon Dioxide BUN 48 H Creatinine 2.1 H Glucose 293 H POC Glucose 264 H Hemoglobin A1c Calcium 7.5 L AST ALT C-Reactive Protein Total Protein Albumin Triglycerides Lipase Ur Specific [place] Urine WBC (Auto) Urine Creatinine Urine Total Protein Lymph Enumerat CD4/CD8 % CD3 Cells Absolute CD3 Count % CD4 Cells Absolute CD4 Count % CD8 Cells Absolute CD8 Count Absolute CD19 Count HIV DNA Qual (PCR) HIV-1 RNA PCR copies/ml HIV-1 RNA (PCR) log Miscellaneous Test Crossmatch 06/25/18 06/25/18 06/26/18 21:20 23:59 05:10 WBC RBC Hgb Hct MCV MCHC RDW Plt Count Seg Neuts % (Manual) Lymphocytes % (Manual) Nucleated RBC % Seg Neutrophils # Man Abs Lymphs (Manual) Lymphocytes # (Manual) PT INR D-Dimer POC ABG pH 7.220 L POC ABG pCO2 65.0 H POC ABG pO2 71 L Sodium Potassium Chloride Carbon Dioxide BUN Creatinine Glucose POC Glucose 231 H 259 H Hemoglobin A1c Calcium AST ALT C-Reactive Protein Total Protein Albumin Triglycerides Lipase Ur Specific [place] Urine WBC (Auto) Urine Creatinine Urine Total Protein Lymph Enumerat CD4/CD8 % CD3 Cells Absolute CD3 Count % CD4 Cells Absolute CD4 Count % CD8 Cells Absolute CD8 Count Absolute CD19 Count HIV DNA Qual (PCR) HIV-1 RNA PCR copies/ml HIV-1 RNA (PCR) log Miscellaneous Test Crossmatch 06/26/18 06/26/18 06/26/18 05:29 07:25 07:25 WBC 12.0 H RBC 2.69 L Hgb 8.2 L Hct 25.5 L MCV 95 H MCHC RDW 15.7 H Plt Count Seg Neuts % (Manual) Lymphocytes % (Manual) Nucleated RBC % Seg Neutrophils # Man Abs Lymphs (Manual) Lymphocytes # (Manual) PT INR D-Dimer POC ABG pH 7.240 L POC ABG pCO2 67.6 H POC ABG pO2 106 H Sodium Potassium 5.2 H Chloride Carbon Dioxide BUN 58 H Creatinine 1.9 H Glucose 219 H POC Glucose Hemoglobin A1c Calcium 7.9 L AST ALT C-Reactive Protein Total Protein Albumin Triglycerides Lipase Ur Specific [place] Urine WBC (Auto) Urine Creatinine Urine Total Protein Lymph Enumerat CD4/CD8 % CD3 Cells Absolute CD3 Count % CD4 Cells Absolute CD4 Count % CD8 Cells Absolute CD8 Count Absolute CD19 Count HIV DNA Qual (PCR) HIV-1 RNA PCR copies/ml HIV-1 RNA (PCR) log Miscellaneous Test Crossmatch 06/26/18 06/26/18 06/26/18 07:25 12:49 17:42 WBC RBC Hgb Hct MCV MCHC RDW Plt Count Seg Neuts % (Manual) Lymphocytes % (Manual) Nucleated RBC % Seg Neutrophils # Man Abs Lymphs (Manual) Lymphocytes # (Manual) PT INR D-Dimer POC ABG pH 7.178 L POC ABG pCO2 73.6 H POC ABG pO2 77 L Sodium Potassium Chloride Carbon Dioxide BUN Creatinine Glucose POC Glucose 276 H Hemoglobin A1c Calcium AST ALT C-Reactive Protein Total Protein Albumin Triglycerides 174 H Lipase Ur Specific [place] Urine WBC (Auto) Urine Creatinine Urine Total Protein Lymph Enumerat CD4/CD8 % CD3 Cells Absolute CD3 Count % CD4 Cells Absolute CD4 Count % CD8 Cells Absolute CD8 Count Absolute CD19 Count HIV DNA Qual (PCR) HIV-1 RNA PCR copies/ml HIV-1 RNA (PCR) log Miscellaneous Test Crossmatch 06/26/18 06/26/18 06/26/18 18:25 21:24 23:22 WBC RBC Hgb Hct MCV MCHC RDW Plt Count Seg Neuts % (Manual) Lymphocytes % (Manual) Nucleated RBC % Seg Neutrophils # Man Abs Lymphs (Manual) Lymphocytes # (Manual) PT INR D-Dimer POC ABG pH 7.152 L POC ABG pCO2 80.6 H POC ABG pO2 Sodium Potassium Chloride Carbon Dioxide BUN Creatinine Glucose POC Glucose 304 H 282 H Hemoglobin A1c Calcium AST ALT C-Reactive Protein Total Protein Albumin Triglycerides Lipase Ur Specific [place] Urine WBC (Auto) Urine Creatinine Urine Total Protein Lymph Enumerat CD4/CD8 % CD3 Cells Absolute CD3 Count % CD4 Cells Absolute CD4 Count % CD8 Cells Absolute CD8 Count Absolute CD19 Count HIV DNA Qual (PCR) HIV-1 RNA PCR copies/ml HIV-1 RNA (PCR) log Miscellaneous Test Crossmatch 06/27/18 06/27/18 06/27/18 04:05 05:15 05:15 WBC RBC Hgb Hct MCV MCHC RDW Plt Count Seg Neuts % (Manual) Lymphocytes % (Manual) Nucleated RBC % Seg Neutrophils # Man Abs Lymphs (Manual) Lymphocytes # (Manual) PT INR D-Dimer POC ABG pH 7.266 L POC ABG pCO2 62.8 H POC ABG pO2 Sodium Potassium 5.5 H Chloride Carbon Dioxide BUN 73 H Creatinine 2.1 H Glucose 211 H POC Glucose Hemoglobin A1c Calcium 7.7 L AST ALT C-Reactive Protein Total Protein Albumin Triglycerides Lipase Ur Specific [place] Urine WBC (Auto) Urine Creatinine Urine Total Protein Lymph Enumerat CD4/CD8 % CD3 Cells Absolute CD3 Count % CD4 Cells Absolute CD4 Count % CD8 Cells Absolute CD8 Count Absolute CD19 Count HIV DNA Qual (PCR) HIV-1 RNA PCR copies/ml HIV-1 RNA (PCR) log Miscellaneous Test Flexitest 1 H Crossmatch 06/27/18 06/27/18 06/27/18 05:15 05:52 13:10 WBC RBC 2.41 L Hgb 7.6 L Hct 22.4 L MCV MCHC RDW Plt Count Seg Neuts % (Manual) Lymphocytes % (Manual) Nucleated RBC % Seg Neutrophils # Man Abs Lymphs (Manual) Lymphocytes # (Manual) PT INR D-Dimer POC ABG pH POC ABG pCO2 POC ABG pO2 Sodium Potassium Chloride Carbon Dioxide BUN Creatinine Glucose POC Glucose 198 H 238 H Hemoglobin A1c Calcium AST ALT C-Reactive Protein Total Protein Albumin Triglycerides Lipase Ur Specific [place] Urine WBC (Auto) Urine Creatinine Urine Total Protein Lymph Enumerat CD4/CD8 % CD3 Cells Absolute CD3 Count % CD4 Cells Absolute CD4 Count % CD8 Cells Absolute CD8 Count Absolute CD19 Count HIV DNA Qual (PCR) HIV-1 RNA PCR copies/ml HIV-1 RNA (PCR) log Miscellaneous Test Crossmatch 06/27/18 06/27/18 06/27/18 16:12 17:51 23:22 WBC RBC Hgb Hct MCV MCHC RDW Plt Count Seg Neuts % (Manual) Lymphocytes % (Manual) Nucleated RBC % Seg Neutrophils # Man Abs Lymphs (Manual) Lymphocytes # (Manual) PT INR D-Dimer POC ABG pH POC ABG pCO2 POC ABG pO2 Sodium Potassium Chloride Carbon Dioxide BUN Creatinine Glucose POC Glucose 174 H 162 H 171 H Hemoglobin A1c Calcium AST ALT C-Reactive Protein Total Protein Albumin Triglycerides Lipase Ur Specific [place] Urine WBC (Auto) Urine Creatinine Urine Total Protein Lymph Enumerat CD4/CD8 % CD3 Cells Absolute CD3 Count % CD4 Cells Absolute CD4 Count % CD8 Cells Absolute CD8 Count Absolute CD19 Count HIV DNA Qual (PCR) HIV-1 RNA PCR copies/ml HIV-1 RNA (PCR) log Miscellaneous Test Crossmatch 06/28/18 06/28/18 06/28/18 04:36 04:54 05:10 WBC RBC Hgb Hct MCV MCHC RDW Plt Count Seg Neuts % (Manual) Lymphocytes % (Manual) Nucleated RBC % Seg Neutrophils # Man Abs Lymphs (Manual) Lymphocytes # (Manual) PT INR D-Dimer POC ABG pH 7.257 L POC ABG pCO2 68.8 H POC ABG pO2 Sodium Potassium Chloride Carbon Dioxide BUN 93 H Creatinine 2.4 H Glucose 186 H POC Glucose 193 H Hemoglobin A1c Calcium 8.3 L AST ALT C-Reactive Protein Total Protein Albumin Triglycerides Lipase Ur Specific [place] Urine WBC (Auto) Urine Creatinine Urine Total Protein Lymph Enumerat CD4/CD8 % CD3 Cells Absolute CD3 Count % CD4 Cells Absolute CD4 Count % CD8 Cells Absolute CD8 Count Absolute CD19 Count HIV DNA Qual (PCR) HIV-1 RNA PCR copies/ml HIV-1 RNA (PCR) log Miscellaneous Test Crossmatch 06/28/18 06/28/18 06/28/18 12:15 17:43 18:26 WBC RBC Hgb Hct MCV MCHC RDW Plt Count Seg Neuts % (Manual) Lymphocytes % (Manual) Nucleated RBC % Seg Neutrophils # Man Abs Lymphs (Manual) Lymphocytes # (Manual) PT INR D-Dimer POC ABG pH 7.123 L POC ABG pCO2 82.7 H POC ABG pO2 Sodium Potassium Chloride Carbon Dioxide BUN Creatinine Glucose POC Glucose 154 H 194 H Hemoglobin A1c Calcium AST ALT C-Reactive Protein Total Protein Albumin Triglycerides Lipase Ur Specific [place] Urine WBC (Auto) Urine Creatinine Urine Total Protein Lymph Enumerat CD4/CD8 % CD3 Cells Absolute CD3 Count % CD4 Cells Absolute CD4 Count % CD8 Cells Absolute CD8 Count Absolute CD19 Count HIV DNA Qual (PCR) HIV-1 RNA PCR copies/ml HIV-1 RNA (PCR) log Miscellaneous Test Crossmatch 06/28/18 06/29/18 06/29/18 22:08 00:12 04:38 WBC RBC Hgb Hct MCV MCHC RDW Plt Count Seg Neuts % (Manual) Lymphocytes % (Manual) Nucleated RBC % Seg Neutrophils # Man Abs Lymphs (Manual) Lymphocytes # (Manual) PT INR D-Dimer POC ABG pH 7.172 L 7.158 L POC ABG pCO2 80.4 H 76.6 H POC ABG pO2 143 H Sodium Potassium Chloride Carbon Dioxide BUN Creatinine Glucose POC Glucose 202 H Hemoglobin A1c Calcium AST ALT C-Reactive Protein Total Protein Albumin Triglycerides Lipase Ur Specific [place] Urine WBC (Auto) Urine Creatinine Urine Total Protein Lymph Enumerat CD4/CD8 % CD3 Cells Absolute CD3 Count % CD4 Cells Absolute CD4 Count % CD8 Cells Absolute CD8 Count Absolute CD19 Count HIV DNA Qual (PCR) HIV-1 RNA PCR copies/ml HIV-1 RNA (PCR) log Miscellaneous Test Crossmatch 06/29/18 06/29/18 06/29/18 05:15 05:15 05:32 WBC 12.3 H RBC 1.93 L Hgb 5.9 L* Hct 18.2 L* MCV 95 H MCHC RDW Plt Count 127 L Seg Neuts % (Manual) Lymphocytes % (Manual) Nucleated RBC % Seg Neutrophils # Man Abs Lymphs (Manual) Lymphocytes # (Manual) PT INR D-Dimer POC ABG pH POC ABG pCO2 POC ABG pO2 Sodium 136 L Potassium 5.9 H Chloride 94.3 L Carbon Dioxide BUN 139 H Creatinine 4.2 H D Glucose 157 H POC Glucose 150 H Hemoglobin A1c Calcium 8.2 L AST ALT C-Reactive Protein Total Protein Albumin Triglycerides Lipase Ur Specific [place] Urine WBC (Auto) Urine Creatinine Urine Total Protein Lymph Enumerat CD4/CD8 % CD3 Cells Absolute CD3 Count % CD4 Cells Absolute CD4 Count % CD8 Cells Absolute CD8 Count Absolute CD19 Count HIV DNA Qual (PCR) HIV-1 RNA PCR copies/ml HIV-1 RNA (PCR) log Miscellaneous Test Crossmatch 06/29/18 06/29/18 06/29/18 08:07 09:50 11:55 WBC RBC Hgb 6.0 L Hct 18.4 L* MCV MCHC RDW Plt Count Seg Neuts % (Manual) Lymphocytes % (Manual) Nucleated RBC % Seg Neutrophils # Man Abs Lymphs (Manual) Lymphocytes # (Manual) PT INR D-Dimer POC ABG pH POC ABG pCO2 POC ABG pO2 Sodium Potassium Chloride Carbon Dioxide BUN Creatinine Glucose POC Glucose 236 H Hemoglobin A1c Calcium AST ALT C-Reactive Protein Total Protein Albumin Triglycerides Lipase Ur Specific [place] Urine WBC (Auto) Urine Creatinine Urine Total Protein Lymph Enumerat CD4/CD8 % CD3 Cells Absolute CD3 Count % CD4 Cells Absolute CD4 Count % CD8 Cells Absolute CD8 Count Absolute CD19 Count HIV DNA Qual (PCR) HIV-1 RNA PCR copies/ml HIV-1 RNA (PCR) log Miscellaneous Test Crossmatch See Detail 06/29/18 06/30/18 06/30/18 18:29 00:08 04:47 WBC RBC Hgb Hct MCV MCHC RDW Plt Count Seg Neuts % (Manual) Lymphocytes % (Manual) Nucleated RBC % Seg Neutrophils # Man Abs Lymphs (Manual) Lymphocytes # (Manual) PT INR D-Dimer POC ABG pH 7.182 L POC ABG pCO2 67.7 H POC ABG pO2 Sodium Potassium Chloride Carbon Dioxide BUN Creatinine Glucose POC Glucose 171 H 159 H Hemoglobin A1c Calcium AST ALT C-Reactive Protein Total Protein Albumin Triglycerides Lipase Ur Specific [place] Urine WBC (Auto) Urine Creatinine Urine Total Protein Lymph Enumerat CD4/CD8 % CD3 Cells Absolute CD3 Count % CD4 Cells Absolute CD4 Count % CD8 Cells Absolute CD8 Count Absolute CD19 Count HIV DNA Qual (PCR) HIV-1 RNA PCR copies/ml HIV-1 RNA (PCR) log Miscellaneous Test Crossmatch 06/30/18 06/30/18 06/30/18 05:07 06:00 12:43 WBC 18.2 H RBC 2.43 L Hgb 7.4 L Hct 22.0 L MCV MCHC RDW 15.3 H Plt Count 111 L Seg Neuts % (Manual) Lymphocytes % (Manual) Nucleated RBC % Seg Neutrophils # Man Abs Lymphs (Manual) Lymphocytes # (Manual) PT INR D-Dimer POC ABG pH POC ABG pCO2 POC ABG pO2 Sodium Potassium Chloride Carbon Dioxide BUN Creatinine Glucose POC Glucose 162 H 153 H Hemoglobin A1c Calcium AST ALT C-Reactive Protein Total Protein Albumin Triglycerides Lipase Ur Specific [place] Urine WBC (Auto) Urine Creatinine Urine Total Protein Lymph Enumerat CD4/CD8 % CD3 Cells Absolute CD3 Count % CD4 Cells Absolute CD4 Count % CD8 Cells Absolute CD8 Count Absolute CD19 Count HIV DNA Qual (PCR) HIV-1 RNA PCR copies/ml HIV-1 RNA (PCR) log Miscellaneous Test Crossmatch 06/30/18 06/30/18 07/01/18 18:07 Unknown 00:06 WBC RBC Hgb Hct MCV MCHC RDW Plt Count Seg Neuts % (Manual) Lymphocytes % (Manual) Nucleated RBC % Seg Neutrophils # Man Abs Lymphs (Manual) Lymphocytes # (Manual) PT INR D-Dimer POC ABG pH POC ABG pCO2 POC ABG pO2 Sodium Potassium 5.9 H Chloride 95.5 L Carbon Dioxide BUN 164 H Creatinine 5.2 H Glucose 151 H POC Glucose 183 H 208 H Hemoglobin A1c Calcium 7.6 L AST ALT C-Reactive Protein Total Protein Albumin Triglycerides 223 H Lipase Ur Specific [place] Urine WBC (Auto) Urine Creatinine Urine Total Protein Lymph Enumerat CD4/CD8 % CD3 Cells Absolute CD3 Count % CD4 Cells Absolute CD4 Count % CD8 Cells Absolute CD8 Count Absolute CD19 Count HIV DNA Qual (PCR) HIV-1 RNA PCR copies/ml HIV-1 RNA (PCR) log Miscellaneous Test Crossmatch 07/01/18 07/01/18 07/01/18 04:47 05:43 06:00 WBC RBC Hgb Hct MCV MCHC RDW Plt Count Seg Neuts % (Manual) Lymphocytes % (Manual) Nucleated RBC % Seg Neutrophils # Man Abs Lymphs (Manual) Lymphocytes # (Manual) PT INR D-Dimer POC ABG pH 7.060 L POC ABG pCO2 121.0 H POC ABG pO2 Sodium Potassium 5.8 H Chloride 94.1 L Carbon Dioxide BUN 144 H Creatinine 3.1 H Glucose 208 H POC Glucose 214 H Hemoglobin A1c Calcium 6.7 L AST ALT C-Reactive Protein Total Protein Albumin Triglycerides Lipase Ur Specific [place] Urine WBC (Auto) Urine Creatinine Urine Total Protein Lymph Enumerat CD4/CD8 % CD3 Cells Absolute CD3 Count % CD4 Cells Absolute CD4 Count % CD8 Cells Absolute CD8 Count Absolute CD19 Count HIV DNA Qual (PCR) HIV-1 RNA PCR copies/ml HIV-1 RNA (PCR) log Miscellaneous Test Crossmatch 07/01/18 07/01/18 07/01/18 06:00 06:52 10:00 WBC 17.9 H RBC 2.14 L Hgb 6.5 L 6.6 L Hct 20.0 L 20.5 L MCV MCHC RDW 15.9 H Plt Count 94 L Seg Neuts % (Manual) Lymphocytes % (Manual) Nucleated RBC % Seg Neutrophils # Man Abs Lymphs (Manual) Lymphocytes # (Manual) PT INR D-Dimer 2387.14 H POC ABG pH POC ABG pCO2 POC ABG pO2 Sodium Potassium Chloride Carbon Dioxide BUN Creatinine Glucose POC Glucose Hemoglobin A1c Calcium AST ALT C-Reactive Protein Total Protein Albumin Triglycerides Lipase Ur Specific [place] Urine WBC (Auto) Urine Creatinine Urine Total Protein Lymph Enumerat CD4/CD8 % CD3 Cells Absolute CD3 Count % CD4 Cells Absolute CD4 Count % CD8 Cells Absolute CD8 Count Absolute CD19 Count HIV DNA Qual (PCR) HIV-1 RNA PCR copies/ml HIV-1 RNA (PCR) log Miscellaneous Test Crossmatch 07/01/18 07/01/18 07/01/18 11:11 11:41 18:38 WBC RBC Hgb Hct MCV MCHC RDW Plt Count Seg Neuts % (Manual) Lymphocytes % (Manual) Nucleated RBC % Seg Neutrophils # Man Abs Lymphs (Manual) Lymphocytes # (Manual) PT INR D-Dimer POC ABG pH 7.151 L 7.168 L POC ABG pCO2 100.4 H 109.4 H POC ABG pO2 151 H 199 H Sodium Potassium Chloride Carbon Dioxide BUN Creatinine Glucose POC Glucose 213 H Hemoglobin A1c Calcium AST ALT C-Reactive Protein Total Protein Albumin Triglycerides Lipase Ur Specific [place] Urine WBC (Auto) Urine Creatinine Urine Total Protein Lymph Enumerat CD4/CD8 % CD3 Cells Absolute CD3 Count % CD4 Cells Absolute CD4 Count % CD8 Cells Absolute CD8 Count Absolute CD19 Count HIV DNA Qual (PCR) HIV-1 RNA PCR copies/ml HIV-1 RNA (PCR) log Miscellaneous Test Crossmatch 07/01/18 07/02/18 07/02/18 23:40 04:32 04:32 WBC 14.8 H RBC 2.68 L Hgb 8.1 L Hct 23.8 L MCV MCHC RDW Plt Count 81 L Seg Neuts % (Manual) Lymphocytes % (Manual) Nucleated RBC % Seg Neutrophils # Man Abs Lymphs (Manual) Lymphocytes # (Manual) PT INR D-Dimer POC ABG pH POC ABG pCO2 POC ABG pO2 Sodium 151 H D Potassium 3.1 L D Chloride Carbon Dioxide 39 H D BUN 108 H Creatinine 1.8 H Glucose 44 L POC Glucose < 40 L Hemoglobin A1c Calcium 6.6 L AST ALT C-Reactive Protein Total Protein Albumin Triglycerides Lipase Ur Specific [place] Urine WBC (Auto) Urine Creatinine Urine Total Protein Lymph Enumerat CD4/CD8 % CD3 Cells Absolute CD3 Count % CD4 Cells Absolute CD4 Count % CD8 Cells Absolute CD8 Count Absolute CD19 Count HIV DNA Qual (PCR) HIV-1 RNA PCR copies/ml HIV-1 RNA (PCR) log Miscellaneous Test Crossmatch 07/02/18 07/02/18 07/02/18 05:00 05:12 11:54 WBC RBC Hgb Hct MCV MCHC RDW Plt Count Seg Neuts % (Manual) Lymphocytes % (Manual) Nucleated RBC % Seg Neutrophils # Man Abs Lymphs (Manual) Lymphocytes # (Manual) PT INR D-Dimer POC ABG pH 7.319 L POC ABG pCO2 89.8 H POC ABG pO2 119 H Sodium Potassium Chloride Carbon Dioxide BUN Creatinine Glucose POC Glucose < 40 L < 40 L Hemoglobin A1c Calcium AST ALT C-Reactive Protein Total Protein Albumin Triglycerides Lipase Ur Specific [place] Urine WBC (Auto) Urine Creatinine Urine Total Protein Lymph Enumerat CD4/CD8 % CD3 Cells Absolute CD3 Count % CD4 Cells Absolute CD4 Count % CD8 Cells Absolute CD8 Count Absolute CD19 Count HIV DNA Qual (PCR) HIV-1 RNA PCR copies/ml HIV-1 RNA (PCR) log Miscellaneous Test Crossmatch 07/02/18 07/03/18 07/03/18 14:09 00:17 04:28 WBC RBC Hgb Hct MCV MCHC RDW Plt Count Seg Neuts % (Manual) Lymphocytes % (Manual) Nucleated RBC % Seg Neutrophils # Man Abs Lymphs (Manual) Lymphocytes # (Manual) PT INR D-Dimer POC ABG pH 7.267 L POC ABG pCO2 93.3 H POC ABG pO2 69 L Sodium Potassium Chloride Carbon Dioxide BUN Creatinine Glucose POC Glucose 53 L 69 L Hemoglobin A1c Calcium AST ALT C-Reactive Protein Total Protein Albumin Triglycerides Lipase Ur Specific [place] Urine WBC (Auto) Urine Creatinine Urine Total Protein Lymph Enumerat CD4/CD8 % CD3 Cells Absolute CD3 Count % CD4 Cells Absolute CD4 Count % CD8 Cells Absolute CD8 Count Absolute CD19 Count HIV DNA Qual (PCR) HIV-1 RNA PCR copies/ml HIV-1 RNA (PCR) log Miscellaneous Test Crossmatch 07/03/18 07/03/18 07/03/18 05:00 05:00 05:16 WBC RBC 2.23 L Hgb 7.0 L Hct 20.3 L MCV MCHC RDW Plt Count 81 L Seg Neuts % (Manual) Lymphocytes % (Manual) Nucleated RBC % Seg Neutrophils # Man Abs Lymphs (Manual) Lymphocytes # (Manual) PT INR D-Dimer POC ABG pH POC ABG pCO2 POC ABG pO2 Sodium 155 H Potassium 3.3 L Chloride Carbon Dioxide 40 H BUN 94 H Creatinine 1.7 H Glucose 115 H POC Glucose 113 H Hemoglobin A1c Calcium 6.9 L AST ALT C-Reactive Protein Total Protein Albumin Triglycerides Lipase Ur Specific [place] Urine WBC (Auto) Urine Creatinine Urine Total Protein Lymph Enumerat CD4/CD8 % CD3 Cells Absolute CD3 Count % CD4 Cells Absolute CD4 Count % CD8 Cells Absolute CD8 Count Absolute CD19 Count HIV DNA Qual (PCR) HIV-1 RNA PCR copies/ml HIV-1 RNA (PCR) log Miscellaneous Test Crossmatch 07/03/18 07/03/18 07/03/18 10:24 11:12 17:52 WBC RBC Hgb Hct MCV MCHC RDW Plt Count Seg Neuts % (Manual) Lymphocytes % (Manual) Nucleated RBC % Seg Neutrophils # Man Abs Lymphs (Manual) Lymphocytes # (Manual) PT INR D-Dimer POC ABG pH POC ABG pCO2 POC ABG pO2 Sodium Potassium Chloride Carbon Dioxide BUN Creatinine Glucose POC Glucose 125 H 167 H Hemoglobin A1c Calcium AST ALT C-Reactive Protein Total Protein Albumin Triglycerides Lipase Ur Specific [place] Urine WBC (Auto) Urine Creatinine Urine Total Protein Lymph Enumerat CD4/CD8 % CD3 Cells Absolute CD3 Count % CD4 Cells Absolute CD4 Count % CD8 Cells Absolute CD8 Count Absolute CD19 Count HIV DNA Qual (PCR) HIV-1 RNA PCR copies/ml HIV-1 RNA (PCR) log Miscellaneous Test Crossmatch See Detail 07/03/18 07/03/18 07/04/18 19:15 23:43 03:57 WBC RBC Hgb 7.8 L Hct 23.8 L MCV MCHC RDW Plt Count Seg Neuts % (Manual) Lymphocytes % (Manual) Nucleated RBC % Seg Neutrophils # Man Abs Lymphs (Manual) Lymphocytes # (Manual) PT INR D-Dimer POC ABG pH 7.229 L POC ABG pCO2 99.8 H POC ABG pO2 Sodium Potassium Chloride Carbon Dioxide BUN Creatinine Glucose POC Glucose 176 H Hemoglobin A1c Calcium AST ALT C-Reactive Protein Total Protein Albumin Triglycerides Lipase Ur Specific [place] Urine WBC (Auto) Urine Creatinine Urine Total Protein Lymph Enumerat CD4/CD8 % CD3 Cells Absolute CD3 Count % CD4 Cells Absolute CD4 Count % CD8 Cells Absolute CD8 Count Absolute CD19 Count HIV DNA Qual (PCR) HIV-1 RNA PCR copies/ml HIV-1 RNA (PCR) log Miscellaneous Test Crossmatch 07/04/18 07/04/18 07/04/18 06:06 12:42 17:49 WBC RBC Hgb Hct MCV MCHC RDW Plt Count Seg Neuts % (Manual) Lymphocytes % (Manual) Nucleated RBC % Seg Neutrophils # Man Abs Lymphs (Manual) Lymphocytes # (Manual) PT INR D-Dimer POC ABG pH POC ABG pCO2 POC ABG pO2 Sodium Potassium Chloride Carbon Dioxide BUN Creatinine Glucose POC Glucose 168 H 130 H 169 H Hemoglobin A1c Calcium AST ALT C-Reactive Protein Total Protein Albumin Triglycerides Lipase Ur Specific [place] Urine WBC (Auto) Urine Creatinine Urine Total Protein Lymph Enumerat CD4/CD8 % CD3 Cells Absolute CD3 Count % CD4 Cells Absolute CD4 Count % CD8 Cells Absolute CD8 Count Absolute CD19 Count HIV DNA Qual (PCR) HIV-1 RNA PCR copies/ml HIV-1 RNA (PCR) log Miscellaneous Test Crossmatch 07/04/18 07/04/18 07/04/18 23:12 Unknown Unknown WBC 12.7 H RBC 2.57 L Hgb 7.7 L Hct 23.9 L MCV MCHC RDW 15.3 H Plt Count 68 L Seg Neuts % (Manual) Lymphocytes % (Manual) Nucleated RBC % Seg Neutrophils # Man Abs Lymphs (Manual) Lymphocytes # (Manual) PT INR D-Dimer POC ABG pH POC ABG pCO2 POC ABG pO2 Sodium 154 H Potassium Chloride Carbon Dioxide 41 H* BUN 85 H Creatinine 1.7 H Glucose 130 H POC Glucose 162 H Hemoglobin A1c Calcium 7.6 L AST ALT C-Reactive Protein Total Protein Albumin Triglycerides 250 H Lipase Ur Specific [place] Urine WBC (Auto) Urine Creatinine Urine Total Protein Lymph Enumerat CD4/CD8 % CD3 Cells Absolute CD3 Count % CD4 Cells Absolute CD4 Count % CD8 Cells Absolute CD8 Count Absolute CD19 Count HIV DNA Qual (PCR) HIV-1 RNA PCR copies/ml HIV-1 RNA (PCR) log Miscellaneous Test Crossmatch 07/05/18 07/05/18 07/05/18 05:42 05:46 12:45 WBC RBC Hgb Hct MCV MCHC RDW Plt Count Seg Neuts % (Manual) Lymphocytes % (Manual) Nucleated RBC % Seg Neutrophils # Man Abs Lymphs (Manual) Lymphocytes # (Manual) PT INR D-Dimer POC ABG pH 7.240 L POC ABG pCO2 97.9 H POC ABG pO2 71 L Sodium Potassium Chloride Carbon Dioxide BUN Creatinine Glucose POC Glucose 278 H 268 H Hemoglobin A1c Calcium AST ALT C-Reactive Protein Total Protein Albumin Triglycerides Lipase Ur Specific [place] Urine WBC (Auto) Urine Creatinine Urine Total Protein Lymph Enumerat CD4/CD8 % CD3 Cells Absolute CD3 Count % CD4 Cells Absolute CD4 Count % CD8 Cells Absolute CD8 Count Absolute CD19 Count HIV DNA Qual (PCR) HIV-1 RNA PCR copies/ml HIV-1 RNA (PCR) log Miscellaneous Test Crossmatch 07/05/18 07/05/18 07/05/18 16:22 17:43 17:54 WBC RBC Hgb Hct MCV MCHC RDW Plt Count Seg Neuts % (Manual) Lymphocytes % (Manual) Nucleated RBC % Seg Neutrophils # Man Abs Lymphs (Manual) Lymphocytes # (Manual) PT INR D-Dimer POC ABG pH 7.094 L 7.112 L POC ABG pCO2 129.6 H 125.4 H POC ABG pO2 181 H 69 L Sodium Potassium Chloride Carbon Dioxide BUN Creatinine Glucose POC Glucose 221 H Hemoglobin A1c Calcium AST ALT C-Reactive Protein Total Protein Albumin Triglycerides Lipase Ur Specific [place] Urine WBC (Auto) Urine Creatinine Urine Total Protein Lymph Enumerat CD4/CD8 % CD3 Cells Absolute CD3 Count % CD4 Cells Absolute CD4 Count % CD8 Cells Absolute CD8 Count Absolute CD19 Count HIV DNA Qual (PCR) HIV-1 RNA PCR copies/ml HIV-1 RNA (PCR) log Miscellaneous Test Crossmatch 07/05/18 07/05/18 07/06/18 20:15 23:18 05:20 WBC RBC Hgb Hct MCV MCHC RDW Plt Count Seg Neuts % (Manual) Lymphocytes % (Manual) Nucleated RBC % Seg Neutrophils # Man Abs Lymphs (Manual) Lymphocytes # (Manual) PT INR D-Dimer POC ABG pH 7.140 L 7.256 L POC ABG pCO2 121.0 H 97.8 H POC ABG pO2 113 H 137 H Sodium Potassium Chloride Carbon Dioxide BUN Creatinine Glucose POC Glucose 227 H Hemoglobin A1c Calcium AST ALT C-Reactive Protein Total Protein Albumin Triglycerides Lipase Ur Specific [place] Urine WBC (Auto) Urine Creatinine Urine Total Protein Lymph Enumerat CD4/CD8 % CD3 Cells Absolute CD3 Count % CD4 Cells Absolute CD4 Count % CD8 Cells Absolute CD8 Count Absolute CD19 Count HIV DNA Qual (PCR) HIV-1 RNA PCR copies/ml HIV-1 RNA (PCR) log Miscellaneous Test Crossmatch 07/06/18 07/06/18 07/06/18 06:04 06:36 06:36 WBC RBC 2.30 L Hgb 7.3 L Hct 22.3 L MCV 97 H MCHC RDW 15.9 H Plt Count 56 L Seg Neuts % (Manual) 97.0 H Lymphocytes % (Manual) 3.0 L Nucleated RBC % Seg Neutrophils # Man 9.6 H Abs Lymphs (Manual) Lymphocytes # (Manual) 0.3 L PT INR D-Dimer POC ABG pH POC ABG pCO2 POC ABG pO2 Sodium 157 H Potassium Chloride 111.9 H Carbon Dioxide 41 H* BUN 52 H Creatinine Glucose 278 H POC Glucose 277 H Hemoglobin A1c Calcium 8.1 L AST ALT C-Reactive Protein Total Protein Albumin Triglycerides Lipase Ur Specific [place] Urine WBC (Auto) Urine Creatinine Urine Total Protein Lymph Enumerat CD4/CD8 % CD3 Cells Absolute CD3 Count % CD4 Cells Absolute CD4 Count % CD8 Cells Absolute CD8 Count Absolute CD19 Count HIV DNA Qual (PCR) HIV-1 RNA PCR copies/ml HIV-1 RNA (PCR) log Miscellaneous Test Crossmatch 07/06/18 07/06/18 07/06/18 12:13 17:57 23:18 WBC RBC Hgb Hct MCV MCHC RDW Plt Count Seg Neuts % (Manual) Lymphocytes % (Manual) Nucleated RBC % Seg Neutrophils # Man Abs Lymphs (Manual) Lymphocytes # (Manual) PT INR D-Dimer POC ABG pH POC ABG pCO2 POC ABG pO2 Sodium Potassium Chloride Carbon Dioxide BUN Creatinine Glucose POC Glucose 279 H 265 H 231 H Hemoglobin A1c Calcium AST ALT C-Reactive Protein Total Protein Albumin Triglycerides Lipase Ur Specific [place] Urine WBC (Auto) Urine Creatinine Urine Total Protein Lymph Enumerat CD4/CD8 % CD3 Cells Absolute CD3 Count % CD4 Cells Absolute CD4 Count % CD8 Cells Absolute CD8 Count Absolute CD19 Count HIV DNA Qual (PCR) HIV-1 RNA PCR copies/ml HIV-1 RNA (PCR) log Miscellaneous Test Crossmatch 07/07/18 07/07/18 07/07/18 04:00 04:00 04:00 WBC 12.1 H RBC 2.40 L Hgb 7.3 L Hct 23.2 L MCV 97 H MCHC 31 L RDW 15.7 H Plt Count 57 L Seg Neuts % (Manual) 95.0 H Lymphocytes % (Manual) 2.0 L Nucleated RBC % 2.0 H Seg Neutrophils # Man 11.5 H Abs Lymphs (Manual) Lymphocytes # (Manual) 0.2 L PT INR D-Dimer POC ABG pH POC ABG pCO2 POC ABG pO2 Sodium 154 H Potassium Chloride 108.1 H Carbon Dioxide 42 H* BUN 43 H Creatinine 0.7 L Glucose 260 H POC Glucose Hemoglobin A1c 6.3 H Calcium 8.1 L AST ALT C-Reactive Protein Total Protein Albumin Triglycerides Lipase Ur Specific [place] Urine WBC (Auto) Urine Creatinine Urine Total Protein Lymph Enumerat CD4/CD8 % CD3 Cells Absolute CD3 Count % CD4 Cells Absolute CD4 Count % CD8 Cells Absolute CD8 Count Absolute CD19 Count HIV DNA Qual (PCR) HIV-1 RNA PCR copies/ml HIV-1 RNA (PCR) log Miscellaneous Test Crossmatch 07/07/18 07/07/18 07/07/18 05:02 05:40 11:16 WBC RBC Hgb Hct MCV MCHC RDW Plt Count Seg Neuts % (Manual) Lymphocytes % (Manual) Nucleated RBC % Seg Neutrophils # Man Abs Lymphs (Manual) Lymphocytes # (Manual) PT INR D-Dimer POC ABG pH 7.295 L POC ABG pCO2 91.5 H POC ABG pO2 73 L Sodium Potassium Chloride Carbon Dioxide BUN Creatinine Glucose POC Glucose 292 H 262 H Hemoglobin A1c Calcium AST ALT C-Reactive Protein Total Protein Albumin Triglycerides Lipase Ur Specific [place] Urine WBC (Auto) Urine Creatinine Urine Total Protein Lymph Enumerat CD4/CD8 % CD3 Cells Absolute CD3 Count % CD4 Cells Absolute CD4 Count % CD8 Cells Absolute CD8 Count Absolute CD19 Count HIV DNA Qual (PCR) HIV-1 RNA PCR copies/ml HIV-1 RNA (PCR) log Miscellaneous Test Crossmatch 07/07/18 07/07/18 07/08/18 17:32 23:26 04:05 WBC RBC Hgb Hct MCV MCHC RDW Plt Count Seg Neuts % (Manual) Lymphocytes % (Manual) Nucleated RBC % Seg Neutrophils # Man Abs Lymphs (Manual) Lymphocytes # (Manual) PT INR D-Dimer POC ABG pH 7.279 L POC ABG pCO2 100.4 H POC ABG pO2 134 H Sodium Potassium Chloride Carbon Dioxide BUN Creatinine Glucose POC Glucose 254 H 168 H Hemoglobin A1c Calcium AST ALT C-Reactive Protein Total Protein Albumin Triglycerides Lipase Ur Specific [place] Urine WBC (Auto) Urine Creatinine Urine Total Protein Lymph Enumerat CD4/CD8 % CD3 Cells Absolute CD3 Count % CD4 Cells Absolute CD4 Count % CD8 Cells Absolute CD8 Count Absolute CD19 Count HIV DNA Qual (PCR) HIV-1 RNA PCR copies/ml HIV-1 RNA (PCR) log Miscellaneous Test Crossmatch 07/08/18 07/08/18 07/08/18 05:00 05:00 06:45 WBC 12.6 H RBC 2.27 L Hgb 6.9 L Hct 21.8 L MCV 96 H MCHC RDW Plt Count 57 L Seg Neuts % (Manual) 98.0 H Lymphocytes % (Manual) 0 L Nucleated RBC % Seg Neutrophils # Man 12.3 H Abs Lymphs (Manual) Lymphocytes # (Manual) 0.0 L PT INR D-Dimer POC ABG pH POC ABG pCO2 POC ABG pO2 Sodium 156 H Potassium Chloride 109.6 H Carbon Dioxide 45 H* BUN 40 H Creatinine 0.6 L Glucose 200 H POC Glucose 193 H Hemoglobin A1c Calcium 8.2 L AST ALT C-Reactive Protein Total Protein Albumin Triglycerides Lipase Ur Specific [place] Urine WBC (Auto) Urine Creatinine Urine Total Protein Lymph Enumerat CD4/CD8 % CD3 Cells Absolute CD3 Count % CD4 Cells Absolute CD4 Count % CD8 Cells Absolute CD8 Count Absolute CD19 Count HIV DNA Qual (PCR) HIV-1 RNA PCR copies/ml HIV-1 RNA (PCR) log Miscellaneous Test Crossmatch 07/08/18 07/08/18 07/08/18 09:53 12:44 17:37 WBC RBC Hgb Hct MCV MCHC RDW Plt Count Seg Neuts % (Manual) Lymphocytes % (Manual) Nucleated RBC % Seg Neutrophils # Man Abs Lymphs (Manual) Lymphocytes # (Manual) PT INR D-Dimer POC ABG pH POC ABG pCO2 POC ABG pO2 Sodium Potassium Chloride Carbon Dioxide BUN Creatinine Glucose POC Glucose 163 H 125 H Hemoglobin A1c Calcium AST ALT C-Reactive Protein Total Protein Albumin Triglycerides Lipase Ur Specific [place] Urine WBC (Auto) Urine Creatinine Urine Total Protein Lymph Enumerat CD4/CD8 % CD3 Cells Absolute CD3 Count % CD4 Cells Absolute CD4 Count % CD8 Cells Absolute CD8 Count Absolute CD19 Count HIV DNA Qual (PCR) HIV-1 RNA PCR copies/ml HIV-1 RNA (PCR) log Miscellaneous Test Crossmatch See Detail 07/09/18 07/09/18 07/10/18 10:55 10:55 07:20 WBC RBC 2.44 L 2.33 L Hgb 7.6 L 7.1 L Hct 23.3 L 22.3 L MCV 95 H 96 H MCHC RDW Plt Count 49 L 55 L Seg Neuts % (Manual) 98.0 H Lymphocytes % (Manual) 2.0 L Nucleated RBC % Seg Neutrophils # Man 10.8 H Abs Lymphs (Manual) Lymphocytes # (Manual) 0.2 L PT INR D-Dimer POC ABG pH POC ABG pCO2 POC ABG pO2 Sodium 154 H Potassium Chloride Carbon Dioxide 46 H* BUN 30 H Creatinine 0.6 L Glucose 125 H POC Glucose Hemoglobin A1c Calcium 7.9 L AST ALT C-Reactive Protein Total Protein Albumin Triglycerides Lipase Ur Specific [place] Urine WBC (Auto) Urine Creatinine Urine Total Protein Lymph Enumerat CD4/CD8 % CD3 Cells Absolute CD3 Count % CD4 Cells Absolute CD4 Count % CD8 Cells Absolute CD8 Count Absolute CD19 Count HIV DNA Qual (PCR) HIV-1 RNA PCR copies/ml HIV-1 RNA (PCR) log Miscellaneous Test Crossmatch 07/10/18 07/10/18 07:20 07:20 WBC RBC Hgb Hct MCV MCHC RDW Plt Count Seg Neuts % (Manual) Lymphocytes % (Manual) Nucleated RBC % Seg Neutrophils # Man Abs Lymphs (Manual) Lymphocytes # (Manual) PT INR D-Dimer POC ABG pH POC ABG pCO2 POC ABG pO2 Sodium 152 H Potassium 5.1 H Chloride Carbon Dioxide 41 H* BUN 44 H Creatinine Glucose 144 H POC Glucose Hemoglobin A1c Calcium 7.9 L AST ALT C-Reactive Protein Total Protein Albumin Triglycerides 307 H Lipase 140 H Ur Specific [place] Urine WBC (Auto) Urine Creatinine Urine Total Protein Lymph Enumerat CD4/CD8 % CD3 Cells Absolute CD3 Count % CD4 Cells Absolute CD4 Count % CD8 Cells Absolute CD8 Count Absolute CD19 Count HIV DNA Qual (PCR) HIV-1 RNA PCR copies/ml HIV-1 RNA (PCR) log Miscellaneous Test Crossmatch Allied health notes reviewed: nursing
[2018-07-10] MEDS: TYLENOL PO PRN ×2 (14:09→17:54)
--- NOTE | 2018-07-10 15:32 | Progress Note ---
Assessment and Plan Cultures: 06/19/2018 blood culture: no growth 06/19/2018 tracheal aspirate: usual resp david/ Rothia mucilaginosa 06/19/2018 fungal blood culture: no growth 06/20/2018 Serum CrAg: negative Cytology PJP stain negative GMS stain showed septated fungal hyphae with acute angle branching and yeast forms c/w Aspergillus, Fusarium, Scedosporium and other Dematiaceous fungi. DFA showed rare PJP CMV DNA PCR 06/19/2018 13,166 BAL 06/25/2018 Tigist albicans, fungal culture negative Toxo IgG: negative 07/09/2018 Blood culture: No growth A/P: 32/M with: #1 Acute hypoxic and hypercapneic respiratory failure, refractory with bilateral pneumonia and ARDS: Extensive bilateral ground glass opacities and pneumonia with severe hypoxia. Unclear etiology ? PJP versus invasive fungal versus disseminated CMV. 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 Lung cytology GMS stain showed septated fungal hyphae with acute angle branching and yeast forms c/w Aspergillus, Fusarium, Scedosporium and other Dematiaceous fungi. 06/19/2018 tracheal aspirate showed usual resp david/ Rothia mucilaginosa. 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 - s/p voriconazole x 4 days - no improvement, stopped on 06/25 - s/p amphotericin x 10 days on 06/25 -07/04 - Serum CMV DNA PCR 06/19/2018,166 - this is probably reactivation in the setting of critical illness - BAL 06/25/2018 Tigist albicans likely a colonizer, AFB negative, fungal culture negative - completed vancomycin renally dosed to cover Rothia D5 on 06/28 - Aspregillus ag negative - S/p bactrim renally adjusted D15 on 07/03 - f/u CMV PCR from 07/10/2018 - Back on Cefepime, Vancomycin on 07/09/2018 #2 HIV/AIDS: CD4=10 / VL 1,300,000 copies. Overall, extremely poor prognosis. Still with uncontrolled opportunistic infections, cannot start HAART due to risk of IRIS. #3 Bloody lien/nasopharyngeal secretions: concerning for possible invasive sinusitis. Not stable to send down for CT due to desaturations. #4 JENNIFER: resolved. 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 #7 Acute encephalopathy: consider MRI brain and LP when stable. Recs: will d/c voriconazole started IV Amphotericin B lipid complex 5 mg/kg daily, initial doses for the first few (4-5) days should be administered slowly over at least four hours; thereafter doses can be administered over 1-2 hours - ALL doses must be pre and post hydrated with normal saline 500 ml -750 ml run in at 125 ml/hour - ALL doses must be pre-medicated with Tylenol 650 mg and benadryl 50 mg PO 30 minutes before the Abelcet dose - Initial 5 doses may also be premedicated with Solumedrol 10 mg IV push immediately before starting Abelcet infusion - Monitor BMP, Magnesium, Phosphate daily and correct accordingly f/u CMV PCR from 07/03/2018 and 07/10/2018 continue ganciclovir D13 continue mepron continue azithromycin 1200 mg qweek for MAC prophylaxis continue IV Cefepime and Vancomycin also add Flagyl for anaerobic coverage for sinusitis Overall, extremely poor prognosis. Patient is DNR, agree with status. Nimesh Sanchez MD [facility] C: [phone] O: [phone] F: [phone] Subjective Date of service: 07/10/18 Principal diagnosis: Acute Hypoxemic Resp Failure; AIDS / HIV positive; Severe Sepsis due to PNA Interval history: Remains critically ill. Fevers +. Per RN, bloody lien/nasopharyngeal secretions. Remains on high PEEP and 100% FiO2. Objective - Exam Narrative Exam: Physical Exam: Constitutional: sedated, intubated. Head, Ears, Nose: Normocephalic, atraumatic. External ears, nose with some bloody secretions Eyes: Conjunctivae/corneas clear. No icterus. No ptosis. Neck: Supple, no meningeal signs Oral: intubated Cardiovascular: S1, S2 normal. Respiratory: Good air entry, clear to auscultation bilaterally GI: Soft, non-tender; bowel sounds normal. No peritoneal signs Musculoskeletal: No pedal edema, no cyanosis. Skin: No rash or abscess Hem/Lymphatic: No palpable cervical or supraclavicular nodes. No lymphangitis Psych: sedated. Neurological: sedated, intubated, on vent, exam limited - Constitutional Vitals: Vital Signs Temp Pulse Resp BP Pulse Ox 102.6 F H 125 H 33 H 117/52 97 07/10/18 12:00 07/10/18 14:00 07/10/18 13:39 07/10/18 14:00 07/10/18 14:00 Temperature -Last 24 Hours Temperature 102.6 F Temperature 99.5 F Temperature 100.5 F Temperature 100 F Temperature 99.5 F Temperature 101.4 F - Labs CBC & Chem 7: 07/10/18 07:20 07/10/18 07:20 Labs: Abnormal lab results 07/10/18 07/10/18 07/10/18 Range/Units 07:20 07:20 07:20 RBC 2.33 L (3.65-5.03) M/mm3 Hgb 7.1 L (11.8-15.2) gm/dl Hct 22.3 L (35.5-45.6) % MCV 96 H (84-94) fl Plt Count 55 L (140-440) K/mm3 Seg Neuts % (Manual) 98.0 H (40.0-70.0) % Lymphocytes % (Manual) 2.0 L (13.4-35.0) % Seg Neutrophils # Man 10.8 H (1.8-7.7) K/mm3 Lymphocytes # (Manual) 0.2 L (1.2-5.4) K/mm3 Sodium 152 H (137-145) mmol/L Potassium 5.1 H (3.6-5.0) mmol/L Carbon Dioxide 41 H* (22-30) mmol/L BUN 44 H (9-20) mg/dL Glucose 144 H (75-100) mg/dL Calcium 7.9 L (8.4-10.2) mg/dL Triglycerides 307 H (2-149) mg/dL Lipase 140 H (13-60) units/L - Imaging and cardiology Chest x-ray: report reviewed, image reviewed (diffuse bilateral infiltrates)
[2018-07-10] MEDS ORDERED: BENADRYL IV SCH ×2 (16:00→18:00)
[2018-07-10] MEDS: FLAGYL 500 MG/100 ML 500 MG/100 ML BAG IV SCH ×2 (16:32→22:07)
[2018-07-10] MEDS: ABELCET IV SCH (18:28)
[2018-07-10] MEDS: D5W IV SCH (18:28)
[2018-07-10] MEDS: LANTUS SUB-Q SCH (22:43)
[2018-07-11] MEDS: fentaNYL DRIP Premix 2,000 MCG/100 ML BAG IV SCH ×5 (00:45→23:26)
[2018-07-11] MEDS: HumaLOG SUB-Q SCH ×5 (00:46→23:41)
[2018-07-11] MEDS: TYLENOL PO PRN ×3 (02:22→17:07)
[2018-07-11] MEDS: DUONEB *Not for PRN Use IH SCH ×4 (02:22→20:52)
[2018-07-11] MEDS: VANCOMYCIN 1,500 MG in NACL 0.9% 500 ML 500 ML IV SCH (03:15)
[2018-07-11] MEDS: DIPRIVAN 10 MG/ML 1,000 MG/100 ML BOTTLE IV SCH ×3 (04:00→16:20)
[2018-07-11 05:40] LABS: Hemoglobin 6.1 gm/dl (11.8-15.2); Mean Corpuscular HGB Conc 33 % (32-34); Mean Corpuscular Volume 94 fl (84-94); Red Blood Count 1.94 M/mm3 (3.65-5.03); Red Cell Distribution Width 14.3 % (13.2-15.2)
[2018-07-11 05:43] LABS: Platelet Count 53 K/mm3 (140-440)
[2018-07-11 05:44] LABS: Hematocrit 18.2 % (35.5-45.6)
[2018-07-11] MEDS: FLAGYL 500 MG/100 ML 500 MG/100 ML BAG IV SCH ×3 (05:44→21:53)
[2018-07-11] MEDS: D5W 1,000 ML IV SCH ×2 (05:46→21:54)
[2018-07-11] MEDS: CYTOVENE 500 MG in NACL 0.9% 250ML 250 ML IV SCH ×2 (05:52→17:24)
[2018-07-11 05:56] LABS: Calcium 7.6 mg/dL (8.4-10.2)
[2018-07-11 07:20] LABS: Hemoglobin 6.2 gm/dl (11.8-15.2)
[2018-07-11 07:24] LABS: Hematocrit 18.4 % (35.5-45.6)
[2018-07-11] MEDS ORDERED: NACL 0.9% 500 ML 500 ML IV ONE (08:00)
--- NOTE | 2018-07-11 08:32 | Progress Note ---
Assessment and Plan Assessment and plan: /ARDS with Acute respiratory failure with hypoxia requiring full mechanical ventilatory support - Likely due to severe sepsis and bilateral pneumonia - Continue to treat underlying pneumonia with antibiotics, frequent nebs, ventilator support - Critical care following /Sepsis - secondary to bilateral pneumonia, profound immunosuppression from underlying AIDS - ID on board, CD4 count equals 10 - Continue antibiotics, IV fluid - Patient currently off pressor /Septic shock, resolved, currently off pressor /Extensive bilateral pneumonia -Extensive bilateral ground glass opacities and pneumonia with severe hypoxia. - Cytology PJP stain negative but DFA showed rare PJP. - Lung cytology GMS stain showed septated fungal hyphae with acute angle branching and yeast forms - but fungal cx negative, negative AFB and negative Aspregillus Ag - Serum CMV DNA PCR 06/19/2018 13,166 - per ID this is probably reactivation in the setting of critical illness - completed 10 days of amphothericin, Per ID now on voriconazole, ganciclovir and mepron - started IV Cefepime and Vancomycin due to new fevers /HIV WITH AIDS defining disease, ID following CD4=10 / VL 1,300,000 copies Azithromycin weekly for MAC Px /Hypernatremia, due to loosing free water continue IV fluid, having negative balance daily cont to monitor BMP /Hyperglycemia, could be steroid induced A1c 6.3 increased long acting insulin dose, cont SSI /Epixtasis, due to the low platelets and severe sepsis, resolved /JENNIFER secondary to Multifactorial causes, resolved - in setting of pre-renal injury, ATN secondary sepsis, contrast exposure, voriconazole, bactrim/antibiotic exposure. - Nephrology following, creatinine improved slowly with iv fluid /Severe metabolic acidosis, due to severe sepsis and worsening renal function - Continue to monitor BMP /Shock liver- from severe sepsis, Improving /Pulmonary hypertension, likely secondary to severe pneumonia - Critical care attending following /Hyperkalemia, Will give kayexalate, /Gross hematuria, - Gross hematuria after muir catheter placed on06/30/18, now resolved. Consulted Urology and Laisha Arroyo evaluated patient and recommends conservative management. //Anemia due to acute blood loss from hematuria, required total 6 units of transfusion so far Hb 6.1 today. Transfuse 2 units PRBC /DVT and GI prophylaxis /Poor prognosis, DO NOT RESUSCITATE CODE STATUS The high probability of a clinically significant, sudden or life threatening deterioration of the [Pulmonary] system(s) required my full and direct attention, intervention and personal management. The aggregate critical care time was [31] minutes. This time is in addition to time spent performing repor zo procedures but includes the following: [x] Data Review and interpretation [x] Patient assessment and monitoring of vital signs [x] Documentation [x] Medication orders and management History Interval history: Patient is 32 yo with hypertension presented with shortness of breath, cough. He was found to have bilateral infiltrates. He was diagnosed with acute respiratory failure due to bilateral pneumonia. He was started on iv Antibiotics, put on BIPAP. He became worse, was intubated. Labs show + HIV/AIDS, new diagnosis. Patient is followed by Pulmonology, ID Physician. Few days into admission, he developed JENNIFER due to ATN from sepsis, contrast exposure and medications. Muir catheter was placed and Cr improving. Patient then developed gross hematuria, which now resolved. Off presoor now, but not ready to wean off from VENT. Family decided for DNR. Poor prognosis. Still having fever Low hemoglobin Hospitalist Physical - Physical exam Narrative exam: GEN: Intubated,Obese, ill looking HEENT: Normocephalic, atraumatic, Neck: supple, No JVD Lungs: Bilateral crackles, no wheeze Heart:S1 and S2 regular, no murmurs, rubs or gallop, Abd:soft, non tender, non distended, normal bowel sounds Ext: Edema all ext, no clubbing or cyanosis Neuro: Intubated, sedated Skin:anasarca - Constitutional Vitals: Temp Pulse Resp BP Pulse Ox 103.5 F H 132 H 30 H 126/44 98 07/11/18 08:00 07/11/18 08:00 07/11/18 08:00 07/11/18 08:00 07/11/18 08:00 General appearance: Present: no acute distress Results - Labs CBC & Chem 7: 07/11/18 07:00 07/11/18 05:20 Labs: Laboratory Last Values WBC 6.5 K/mm3 (4.5-11.0) 07/11/18 05:20 RBC 1.94 M/mm3 (3.65-5.03) L 07/11/18 05:20 Hgb 6.2 gm/dl (11.8-15.2) L 07/11/18 07:00 Hct 18.4 % (35.5-45.6) L* 07/11/18 07:00 MCV 94 fl (84-94) 07/11/18 05:20 MCH 31 pg (28-32) 07/11/18 05:20 MCHC 33 % (32-34) 07/11/18 05:20 RDW 14.3 % (13.2-15.2) 07/11/18 05:20 Plt Count 53 K/mm3 (140-440) L 07/11/18 05:20 Add Manual Diff Complete 07/10/18 07:20 Total Counted 100 07/10/18 07:20 Seg Neutrophils % Reimbursement Coordinator 07/10/18 07:20 Seg Neuts % (Manual) 98.0 % (40.0-70.0) H 07/10/18 07:20 Band Neutrophils % 0 % 07/10/18 07:20 Lymphocytes % (Manual) 2.0 % (13.4-35.0) L 07/10/18 07:20 Reactive Lymphs % (Man) 0 % 07/10/18 07:20 Monocytes % (Manual) 0 % (0.0-7.3) 07/10/18 07:20 Eosinophils % (Manual) 0 % (0.0-4.3) 07/10/18 07:20 Basophils % (Manual) 0 % (0.0-1.8) 07/10/18 07:20 Metamyelocytes % 0 % 07/10/18 07:20 Myelocytes % 0 % 07/10/18 07:20 Promyelocytes % 0 % 07/10/18 07:20 Blast Cells % 0 % 07/10/18 07:20 Nucleated RBC % Not Reportable 07/10/18 07:20 Seg Neutrophils # Man 10.8 K/mm3 (1.8-7.7) H 07/10/18 07:20 Band Neutrophils # 0.0 K/mm3 07/10/18 07:20 Abs Lymphs (Manual) 409 cells/uL (850-3900) L 06/19/18 07:11 Lymphocytes # (Manual) 0.2 K/mm3 (1.2-5.4) L 07/10/18 07:20 Abs React Lymphs (Man) 0.0 K/mm3 07/10/18 07:20 Monocytes # (Manual) 0.0 K/mm3 (0.0-0.8) 07/10/18 07:20 Eosinophils # (Manual) 0.0 K/mm3 (0.0-0.4) 07/10/18 07:20 Basophils # (Manual) 0.0 K/mm3 (0.0-0.1) 07/10/18 07:20 Metamyelocytes # 0.0 K/mm3 07/10/18 07:20 Myelocytes # 0.0 K/mm3 07/10/18 07:20 Promyelocytes # 0.0 K/mm3 07/10/18 07:20 Blast Cells # 0.0 K/mm3 07/10/18 07:20 WBC Morphology Not Reportable 07/10/18 07:20 Hypersegmented Neuts Not Reportable 07/10/18 07:20 Hyposegmented Neuts Not Reportable 07/10/18 07:20 Hypogranular Neuts Not Reportable 07/10/18 07:20 Smudge Cells Not Reportable 07/10/18 07:20 Toxic Granulation Not Reportable 07/10/18 07:20 Toxic Vacuolation Not Reportable 07/10/18 07:20 Dohle Bodies Not Reportable 07/10/18 07:20 Pelger-Huet Anomaly Not Reportable 07/10/18 07:20 Loretta Rods Not Reportable 07/10/18 07:20 Platelet Estimate Consistent w auto 07/10/18 07:20 Clumped Platelets Not Reportable 07/10/18 07:20 Plt Clumps, EDTA Not Reportable 07/10/18 07:20 Large Platelets Not Reportable 07/10/18 07:20 Giant Platelets Not Reportable 07/10/18 07:20 Platelet Satelliting Not Reportable 07/10/18 07:20 Plt Morphology Comment Not Reportable 07/10/18 07:20 RBC Morphology Not Reportable 07/10/18 07:20 Dimorphic RBCs Not Reportable 07/10/18 07:20 Polychromasia Not Reportable 07/10/18 07:20 Hypochromasia Not Reportable 07/10/18 07:20 Poikilocytosis 1+ 07/10/18 07:20 Anisocytosis 1+ 07/10/18 07:20 Microcytosis Rare 07/10/18 07:20 Macrocytosis Not Reportable 07/10/18 07:20 Spherocytes Not Reportable 07/10/18 07:20 Pappenheimer Bodies Not Reportable 07/10/18 07:20 Sickle Cells Not Reportable 07/10/18 07:20 Target Cells Not Reportable 07/10/18 07:20 Tear Drop Cells Rare 07/10/18 07:20 Ovalocytes Not Reportable 07/10/18 07:20 Stomatocytes 1+ 07/07/18 04:00 Helmet Cells Not Reportable 07/10/18 07:20 Flores-Cliffdell Bodies Not Reportable 07/10/18 07:20 [place] Rings Not Reportable 07/10/18 07:20 Clio Cells Not Reportable 07/10/18 07:20 Bite Cells Not Reportable 07/10/18 07:20 Crenated Cell Not Reportable 07/10/18 07:20 Elliptocytes Not Reportable 07/10/18 07:20 Acanthocytes (Spur) Not Reportable 07/10/18 07:20 Rouleaux Not Reportable 07/10/18 07:20 Hemoglobin C Crystals Not Reportable 07/10/18 07:20 Schistocytes Not Reportable 07/10/18 07:20 Malaria parasites Not Reportable 07/10/18 07:20 Jesus Bodies Not Reportable 07/10/18 07:20 Hem Pathologist Commnt No 07/10/18 07:20 PT 14.3 Sec. (12.2-14.9) 07/01/18 09:11 INR 1.05 (0.87-1.13) 07/01/18 09:11 APTT 28.7 Sec. (24.2-36.6) 06/19/18 Unknown Fibrinogen 428 mg/dl (211-480) 07/01/18 10:00 D-Dimer 2387.14 ng/mlDDU (0-234) H 07/01/18 10:00 POC ABG pH 7.279 (7.35-7.45) L 07/08/18 04:05 POC ABG pCO2 100.4 (35-45) H 07/08/18 04:05 POC ABG pO2 134 (80-105) H 07/08/18 04:05 POC ABG HCO3 47.0 07/08/18 04:05 POC ABG Total CO2 > 50 07/08/18 04:05 POC ABG O2 Sat 98 07/08/18 04:05 POC ABG Base Excess 20 07/08/18 04:05 FiO2 100 % 07/08/18 04:05 Sodium 146 mmol/L (137-145) H 07/11/18 05:20 Potassium 4.8 mmol/L (3.6-5.0) 07/11/18 05:20 Chloride 99.9 mmol/L (98-107) 07/11/18 05:20 Carbon Dioxide 36 mmol/L (22-30) H 07/11/18 05:20 Anion Gap 15 mmol/L 07/11/18 05:20 BUN 62 mg/dL (9-20) H 07/11/18 05:20 Creatinine 1.9 mg/dL (0.8-1.5) H D 07/11/18 05:20 Estimated GFR 41 ml/min 07/11/18 05:20 BUN/Creatinine Ratio 33 % 07/11/18 05:20 Glucose 137 mg/dL (75-100) H 07/11/18 05:20 POC Glucose 125 (70-105) H 07/08/18 17:37 Hemoglobin A1c 6.3 % (4-6) H 07/07/18 04:00 Lactic Acid 1.70 mmol/L (0.7-2.0) 06/19/18 05:26 Calcium 7.6 mg/dL (8.4-10.2) L 07/11/18 05:20 Total Bilirubin < 0.20 mg/dL (0.1-1.2) 06/23/18 05:11 Direct Bilirubin < 0.2 mg/dL (0-0.2) 06/19/18 Unknown Indirect Bilirubin 0.2 mg/dL 06/19/18 Unknown AST 63 units/L (5-40) H 06/23/18 05:11 ALT 297 units/L (7-56) H 06/23/18 05:11 Alkaline Phosphatase 127 units/L (35-129) 06/23/18 05:11 Troponin T < 0.010 ng/mL (0.00-0.029) 06/19/18 Unknown C-Reactive Protein 1.60 mg/dL (0.00-1.30) H 06/23/18 18:40 NT-Pro-B Natriuret Pep 226.4 pg/mL (0-450) 06/19/18 Unknown Total Protein 5.3 g/dL (6.3-8.2) L 06/23/18 05:11 Albumin 2.4 g/dL (3.9-5) L 06/23/18 05:11 Albumin/Globulin Ratio 0.8 % 06/23/18 05:11 Triglycerides 307 mg/dL (2-149) H 07/10/18 07:20 Lipase 140 units/L (13-60) H 07/10/18 07:20 Urine Color Yellow (Yellow) 06/24/18 22:45 Urine Turbidity Slightly-cloudy (Clear) 06/24/18 22:45 Urine pH 5.0 (5.0-7.0) 06/24/18 22:45 Ur Specific [place] 1.014 (1.003-1.030) 06/24/18 22:45 Urine Protein <15 mg/dl mg/dL (Negative) 06/24/18 22:45 Urine Glucose (UA) Neg mg/dL (Negative) 06/24/18 22:45 Urine Ketones Neg mg/dL (Negative) 06/24/18 22:45 Urine Blood Neg (Negative) 06/24/18 22:45 Urine Nitrite Neg (Negative) 06/24/18 22:45 Urine Bilirubin Neg (Negative) 06/24/18 22:45 Urine Urobilinogen < 2.0 mg/dL (<2.0) 06/24/18 22:45 Ur Leukocyte Esterase Neg (Negative) 06/24/18 22:45 Urine WBC (Auto) 9.0 /HPF (0.0-6.0) H 06/24/18 22:45 Urine RBC (Auto) 19.0 /HPF (0.0-6.0) 06/24/18 22:45 U Epithel Cells (Auto) < 1.0 /HPF (0-13.0) 06/19/18 08:07 Urine Bacteria (Auto) 1+ /HPF (Negative) 06/24/18 22:45 Hyaline Casts 1 /LPF 06/24/18 22:45 Urine Mucus Few /HPF 06/19/18 08:07 Urine Yeast (Budding) 1+ /HPF 06/24/18 22:45 Urine Eosinophils None seen (None Seen) 06/24/18 22:45 Urine Creatinine 47.2 mg/dL (0.1-20.0) H 06/24/18 22:45 Urine Sodium 40 mmol/L 06/24/18 22:45 Urine Total Protein 25 mg/dL (5-11.8) H 06/24/18 22:45 Random Vancomycin 6.5 ug/mL (0-40.0) 06/25/18 11:40 Urine Opiates Screen Presumptive negative 06/19/18 08:06 Urine Methadone Screen Presumptive negative 06/19/18 08:06 Ur Barbiturates Screen Presumptive negative 06/19/18 08:06 Ur Phencyclidine Scrn Presumptive negative 06/19/18 08:06 Ur Amphetamines Screen Presumptive negative 06/19/18 08:06 U Benzodiazepines Scrn Presumptive positive 06/19/18 08:06 Urine Cocaine Screen Presumptive negative 06/19/18 08:06 U Marijuana (THC) Screen Presumptive negative 06/19/18 08:06 Drugs of Abuse Note Disclamer 06/19/18 08:06 Lymph Enumerat CD4/CD8 0.05 (0.86-5.00) L 06/19/18 07:11 % CD3 Cells 45 % (57-85) L 06/19/18 07:11 Absolute CD3 Count 185 cells/uL (840-3060) L 06/19/18 07:11 % CD4 Cells 2 % (30-61) L 06/19/18 07:11 Absolute CD4 Count 10 cells/uL (490-1740) L 06/19/18 07:11 % CD8 Cells 43 % (12-42) H 06/19/18 07:11 Absolute CD8 Count 167 cells/uL (180-1170) L 06/19/18 07:11 % CD19 Cells 18 % (6-29) 06/19/18 07:11 Absolute CD19 Count 79 cells/uL (110-660) L 06/19/18 07:11 CMV DNA PCR log endoscopy rn/mL See scanned report 06/19/18 15:16 Hepatitis A IgM Ab Non-reactive (NonReactive) 06/21/18 04:19 Hep Bs Antigen Non-reactive (Negative) 06/21/18 04:19 Hep B Core IgM Ab Non-reactive (NonReactive) 06/21/18 04:19 Hepatitis C Antibody Non-reactive (NonReactive) 06/21/18 04:19 HIV DNA Qual (PCR) Detected (Not Detected) H 06/19/18 09:20 HIV-1 Antibody See scanned results 06/19/18 07:12 HIV-1 RNA PCR copies/ml [id number] Copies/mL H 06/19/18 15:16 HIV-1 RNA (PCR) log 6.11 Log cps/mL H 06/19/18 15:16 HIV-1 Genotyping See scanned result 06/19/18 09:20 HIV-2 Ab (Immunoblot) See scanned results 06/19/18 07:12 HIV 1&2 Antibody Rapid Reactive (Non React) 06/19/18 07:10 HIV P24 Antigen Invalid (Non React) 06/19/18 07:10 Influenza A (Rapid) Negative (Negative) 06/19/18 Unknown Influenza A (RT-PCR) Negative (Negative) 06/21/18 12:30 Influenza B (Rapid) Negative (Negative) 06/19/18 Unknown Influenza B (RT-PCR) Negative (Negative) 06/21/18 12:30 Toxoplasma IgG Ab <7.20 IU/mL (<7.20) 07/03/18 10:24 Miscellaneous Test Flexitest 1 07/05/18 12:20 Blood Type O POSITIVE 07/08/18 09:53 Antibody Screen Negative 07/08/18 09:53 Crossmatch See Detail 07/08/18 09:53 Nutrition/Malnutrition Assess - Dietary Evaluation Nutrition/Malnutrition Findings: Nutrition Notes Start: 06/19/18 14:17 Freq: Status: Active Protocol: Document 07/09/18 16:18 EROS (Rec: 07/09/18 16:24 EROS [id number]) Nutrition Notes Initial or Follow up Reassessment Current Diagnosis Acute Kidney Injury, Respiratory Failure Other Pertinent Diagnosis Bilat pneu, HIV/AIDS Current Diet TF - Nepro at 50ml/hr Labs/Tests (07/08/18) Na 156 BUN 40 BG 200 Pertinent Medications D5Wat 50ml/hr Lantus Height 5 ft 9 in Weight 89.5 kg [place] Body Weight (kg) 72.72 BMI 29.1 Weight change and time frame Current wt obtained from bed scale Subjective/Other Information Pt tolerating TF at goal rate, per RN. He remains on vent support. He is receiving 300ml water flushes q4h. Percent of energy/protein needs met: 98% energy 91% pro Burn Absent Trauma Absent #1 Nutrition Diagnosis Inadequate oral intake Diagnosis Progress(for reassessment Continues documentation) Is patient on ventilator? Yes Is Patient Ambulatory and/or Out of Bed No REE-([facility]-confined to bed) [phone] Calculation Used for Recommendations [facility] Additional Notes Pro needs 1.2-2g/k-179g/ day Fluid needs per MD Nutrition Intervention Nutrition Support: Continue Nepro at 50 ml/hr with 300 ml water flush q4h or per MD. Kcal 2,160 Protein (gm) 97 Fluid (mL) 872 Goal #1 TF tolerance Goal #2 TF to continue to meet 80-100% of kcal and protein needs. Follow-Up By: 07/12/18 Additional Comments F/U: Na lab, water flushes
[2018-07-11] MEDS: MEPRON PO SCH ×2 (09:58→21:54)
[2018-07-11] MEDS: PREVACID SOLUTAB FEEDTUBE SCH (09:58)
[2018-07-11] MEDS: MAXIPIME/NS 2 GM/100 ML 2 GM/100 ML BAG IV SCH (09:58)
[2018-07-11] MEDS: SODIUM CHLORIDE FLUSH SYRINGE 10 ML IV SCH ×2 (09:59→21:54)
[2018-07-11] MEDS: ARTIFICIAL TEARS OPHTH OINT OU PRN (10:55)
--- NOTE | 2018-07-11 11:50 | Progress Note ---
Assessment and Plan Cultures: 06/19/2018 blood culture: no growth 06/19/2018 tracheal aspirate: usual resp david/ Rothia mucilaginosa 06/19/2018 fungal blood culture: no growth 06/20/2018 Serum CrAg: negative Cytology PJP stain negative GMS stain showed septated fungal hyphae with acute angle branching and yeast forms c/w Aspergillus, Fusarium, Scedosporium and other Dematiaceous fungi. DFA showed rare PJP CMV DNA PCR 06/19/2018 13,166 BAL 06/25/2018 Tigist albicans, fungal culture negative Toxo IgG: negative 07/09/2018 Blood culture: No growth A/P: 32/M with: #1 Acute hypoxic and hypercapneic respiratory failure, refractory with bilateral pneumonia and ARDS: Extensive bilateral ground glass opacities and pneumonia with severe hypoxia. Unclear etiology ? PJP versus invasive fungal versus disseminated CMV. 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 Lung cytology GMS stain showed septated fungal hyphae with acute angle branching and yeast forms c/w Aspergillus, Fusarium, Scedosporium and other Dematiaceous fungi. 06/19/2018 tracheal aspirate showed usual resp david/ Rothia mucilaginosa. 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 - s/p voriconazole x 4 days - no improvement, stopped on 06/25 - s/p amphotericin x 10 days on 06/25 -07/04 - Serum CMV DNA PCR 06/19/2018,166 - this is probably reactivation in the setting of critical illness - BAL 06/25/2018 Tigist albicans likely a colonizer, AFB negative, fungal culture negative - completed vancomycin renally dosed to cover Rothia D5 on 06/28 - Aspregillus ag negative - S/p bactrim renally adjusted D15 on 07/03 - f/u CMV PCR from 07/10/2018 - Back on Cefepime, Vancomycin on 07/09/2018, Ampho restarted on 07/10/2018. #2 HIV/AIDS: CD4=10 / VL 1,300,000 copies. Overall, extremely poor prognosis. Still with uncontrolled opportunistic infections, labile renal function, cannot start HAART due to risk of IRIS and additional complications. #3 Bloody lien/nasopharyngeal secretions: concerning for possible invasive sinusitis. Not stable to send down for CT due to desaturations. #4 JENNIFER: resolved. #5 Epistaxis on 06/24/2018 s/p packing, resolved #6 Hypernatremia and respiratory acidosis: per power system operator. #7 Acute encephalopathy: consider MRI brain and LP when stable. Recs: creatinine worsening, renally adjusted Cefepime, Vancomycin continue IV Amphotericin B lipid complex 5 mg/kg daily for now with adequate hydration -Monitor BMP, Magnesium, Phosphate daily and correct accordingly f/u CMV PCR from 07/04/2018 and 07/10/2018 (called micro lab to get these results) continue ganciclovir D14 continue mepron continue azithromycin 1200 mg qweek for MAC prophylaxis continue Flagyl for anaerobic coverage for sinusitis I am awaiting a call back from risk management regarding whether his HIV status can be disclosed to his parents. Patient is an extremely high mortality risk. Overall, extremely poor prognosis. Patient is DNR, agree with status. Nimesh Sanchez MD [facility] C: [phone] O: [phone] F: [phone] Subjective Date of service: 07/11/18 Principal diagnosis: Acute Hypoxemic Resp Failure; AIDS / HIV positive; Severe Sepsis due to PNA Interval history: Remains on the vent, 100% FiO2, high PEEP. Spiking high fevers of 103F. Retaining urine, requiring Rust placement. Objective - Exam Narrative Exam: Physical Exam: Constitutional: sedated, intubated. Head, Ears, Nose: Normocephalic, atraumatic. External ears, nose with some bloody secretions Eyes: Conjunctivae/corneas clear. No icterus. No ptosis. Neck: Supple, no meningeal signs Oral: intubated Cardiovascular: S1, S2 normal. Respiratory: Good air entry, clear to auscultation bilaterally GI: Soft, non-tender; bowel sounds normal. No peritoneal signs Musculoskeletal: anasarca Skin: No rash or abscess Hem/Lymphatic: No palpable cervical or supraclavicular nodes. No lymphangitis Psych: sedated. Neurological: sedated, intubated, on vent, exam limited - Constitutional Vitals: Vital Signs Temp Pulse Resp BP Pulse Ox 103.0 F H 120 H 27 H 112/53 96 07/11/18 10:12 07/11/18 11:00 07/11/18 11:00 07/11/18 11:00 07/11/18 11:00 Temperature -Last 24 Hours Temperature 103.0 F Temperature 103.5 F Temperature 98.8 F Temperature 100.7 F Temperature 100.1 F Temperature 102.3 F Temperature 102.6 F - Labs CBC & Chem 7: 07/11/18 07:00 07/11/18 05:20 Labs: Abnormal lab results 07/08/18 07/10/18 07/11/18 Range/Units 09:53 07:20 05:20 RBC 1.94 L (3.65-5.03) M/mm3 Hgb 6.1 L (11.8-15.2) gm/dl Hct 18.2 L* (35.5-45.6) % Plt Count 53 L (140-440) K/mm3 Sodium (137-145) mmol/L Carbon Dioxide (22-30) mmol/L BUN (9-20) mg/dL Creatinine (0.8-1.5) mg/dL Glucose (75-100) mg/dL Calcium (8.4-10.2) mg/dL Triglycerides 307 H (2-149) mg/dL Lipase 140 H (13-60) units/L Crossmatch See Detail 07/11/18 07/11/18 07/11/18 Range/Units 05:20 07:00 08:00 RBC (3.65-5.03) M/mm3 Hgb 6.2 L (11.8-15.2) gm/dl Hct 18.4 L* (35.5-45.6) % Plt Count (140-440) K/mm3 Sodium 146 H (137-145) mmol/L Carbon Dioxide 36 H (22-30) mmol/L BUN 62 H (9-20) mg/dL Creatinine 1.9 H D (0.8-1.5) mg/dL Glucose 137 H (75-100) mg/dL Calcium 7.6 L (8.4-10.2) mg/dL Triglycerides (2-149) mg/dL Lipase (13-60) units/L Crossmatch See Detail
--- NOTE | 2018-07-11 12:59 | Progress Note ---
Assessment and Plan ARDS Acute Hypoxemic Respiratory Failure on MVS AIDS / HIV positive Severe Sepsis due to Pneumonia LLext DVT Hyponatremia Severe metabolic acidosis Shock liver - allow sedation to RASS -4 - keep Peep at 16 cmH2O for now re: barotrauma issues - repeat ABG today - continue to accept higher PIP's as severe hypercapnic acidosis otherwise - continue to target TV 4-6 ml/kg IBW as goal ultimately - continue to wean supplemental oxygen to keep O2 sats > 89% (again reduced to 90% at bedside) - continue permissive hypercapnia strategies - continue anti-infectives per ID recs - 2D ECHO with normal EF - continue to titrate sedatives for RASS -2 while on ARDS ventilation - continue anti-infective's per ID recommendations - trend CRP and lactate levels as necessary to aid clinical decision making - continue bronchodilators with pulmonary hygiene per RT - continue hyperventilation acutely to compensate for metabolic acidosis - VAP bundle addressed - daily SAT's - Daily SBT assessment - GI & VTE prophylaxis - enteral nutrition as tolerated - continue accuchecks q6h with glycemic control per SSI for target BG 140-180 mg/dL - continue other care per attending / other reimbursement consultant's .... re-evaluate in am & prn .... case discussed at length with healthcare staff during team rounds PROGNOSIS TRULY GUARDED CODE STATUS: FULL CODE The high probability of a clinically significant, sudden or life-threatening deterioration of the [cardiac, neurology] system(s) required my full and direct attention, intervention and personal management. The aggregate critical care time was [35] minutes without overlap. Time includes spent on; [x] Data Review and interpretation [x] Patient assessment and monitoring of vital signs [x] Documentation [x] Medication orders and management Subjective Date of service: 07/11/18 Principal diagnosis: Acute Hypoxemic Resp Failure; AIDS / HIV positive; Severe Sepsis due to PNA Interval history: Patient is seen today for: Acute Hypoxemic Respiratory Failure on MVS; AIDS / HIV positive; Severe Sepsis due to Pneumonia; Hyponatremia; Severe metabolic acidosis Seen and examined at bedside; 24hour events reviewed; nursing and respiratory care staff consulted; no adverse overnight events reported to me; remains on MVS; remains with ARDS; AMS is persistent Objective Vital Signs - 12hr 07/11/18 07/11/18 07/11/18 01:00 01:30 02:00 Temperature Pulse Rate 122 H 125 H 131 H Pulse Rate [ 141 H Bilateral] Pulse Rate [ From Monitor] Respiratory Rate Respiratory 33 H Rate [Bilateral ] Blood Pressure 121/42 126/45 136/44 O2 Sat by Pulse 95 89 92 Oximetry 07/11/18 07/11/18 07/11/18 02:30 03:00 03:30 Temperature Pulse Rate 140 H 134 H 136 H Pulse Rate [ Bilateral] Pulse Rate [ From Monitor] Respiratory Rate Respiratory Rate [Bilateral ] Blood Pressure 123/39 130/46 O2 Sat by Pulse 91 93 93 Oximetry 07/11/18 07/11/18 07/11/18 04:00 04:30 05:00 Temperature 98.8 F Pulse Rate 133 H 130 H 130 H Pulse Rate [ Bilateral] Pulse Rate [ 126 H From Monitor] Respiratory 34 H 41 H Rate Respiratory Rate [Bilateral ] Blood Pressure 140/45 127/48 124/47 O2 Sat by Pulse 94 91 88 Oximetry 07/11/18 07/11/18 07/11/18 05:30 06:00 06:30 Temperature Pulse Rate 131 H 133 H 133 H Pulse Rate [ Bilateral] Pulse Rate [ 126 H From Monitor] Respiratory 40 H 34 H 39 H Rate Respiratory Rate [Bilateral ] Blood Pressure 134/52 123/45 125/49 O2 Sat by Pulse 83 L 94 95 Oximetry 07/11/18 07/11/18 07/11/18 07:00 07:30 08:00 Temperature 103.5 F H Pulse Rate 133 H 134 H 133 H Pulse Rate [ Bilateral] Pulse Rate [ 132 H From Monitor] Respiratory 29 H 31 H 29 H Rate Respiratory Rate [Bilateral ] Blood Pressure 132/50 132/48 126/44 O2 Sat by Pulse 95 94 95 Oximetry 07/11/18 07/11/18 07/11/18 08:30 08:53 09:00 Temperature Pulse Rate 133 H 133 H 129 H Pulse Rate [ 130 H Bilateral] Pulse Rate [ From Monitor] Respiratory 30 H 26 H Rate Respiratory 28 H Rate [Bilateral ] Blood Pressure 122/42 126/44 122/47 O2 Sat by Pulse 96 98 93 Oximetry 07/11/18 07/11/18 07/11/18 09:30 10:00 10:12 Temperature 103.0 F H Pulse Rate 127 H 123 H Pulse Rate [ Bilateral] Pulse Rate [ From Monitor] Respiratory 26 H 28 H Rate Respiratory Rate [Bilateral ] Blood Pressure 116/43 120/43 O2 Sat by Pulse 95 95 Oximetry 07/11/18 07/11/18 07/11/18 10:30 11:00 11:30 Temperature Pulse Rate 125 H 120 H 121 H Pulse Rate [ Bilateral] Pulse Rate [ From Monitor] Respiratory 28 H 27 H 27 H Rate Respiratory Rate [Bilateral ] Blood Pressure 118/49 112/53 117/46 O2 Sat by Pulse 96 96 96 Oximetry 07/11/18 07/11/18 07/11/18 11:45 12:00 12:19 Temperature 101.6 F H 101.5 F H Pulse Rate 121 H 121 H Pulse Rate [ Bilateral] Pulse Rate [ 121 H From Monitor] Respiratory 25 H Rate Respiratory Rate [Bilateral ] Blood Pressure 115/44 99/44 O2 Sat by Pulse 95 98 Oximetry 07/11/18 12:30 Temperature Pulse Rate 120 H Pulse Rate [ Bilateral] Pulse Rate [ From Monitor] Respiratory 21 Rate Respiratory Rate [Bilateral ] Blood Pressure 113/52 O2 Sat by Pulse 92 Oximetry Constitutional: appears uncomfortable, other (young HM normocephalic and atraumatic with moderately increased respiratory effort at rest) Eyes: non-icteric ENT: oropharynx moist, other (ETT 23 cm SATISH) Neck: supple, no lymphadenopathy, no JVD, other (no thyromegaly) Effort: mildly labored Ascultation: Bilateral: diminished breath sounds, rhonchi Percussion: Bilateral: not dull Cardiovascular: regular rate and rhythm Gastrointestinal: normoactive bowel sounds, soft, non-tender, non-distended Integumentary: rash Extremities: no cyanosis, pink and warm, pulses normal, no ischemia or petech iae, edema (trace) Neurologic: non-focal exam (grossly), pupils equal and round, motor strength normal and, unable to assess Psychiatric: other (unable to assess) CBC and BMP: 07/12/18 05:19 07/12/18 05:19 ABG, PT/INR, D-dimer: ABG POC ABG pH 7.279 (7.35-7.45) L 07/08/18 04:05 POC ABG pCO2 100.4 (35-45) H 07/08/18 04:05 POC ABG pO2 134 (80-105) H 07/08/18 04:05 POC ABG HCO3 47.0 07/08/18 04:05 POC ABG Total CO2 > 50 07/08/18 04:05 POC ABG O2 Sat 98 07/08/18 04:05 PT/INR, D-dimer PT 14.3 Sec. (12.2-14.9) 07/01/18 09:11 INR 1.05 (0.87-1.13) 07/01/18 09:11 D-Dimer 2387.14 ng/mlDDU (0-234) H 07/01/18 10:00 Abnormal lab findings: Abnormal Labs 06/19/18 06/19/18 06/19/18 03:31 07:11 07:42 WBC RBC Hgb Hct MCV MCHC RDW Plt Count Seg Neuts % (Manual) Lymphocytes % (Manual) Nucleated RBC % Seg Neutrophils # Man Abs Lymphs (Manual) 409 L Lymphocytes # (Manual) PT INR D-Dimer POC ABG pH 6.974 L POC ABG pCO2 22.0 L 83.4 H POC ABG pO2 28 L 122 H Sodium Potassium Chloride Carbon Dioxide BUN Creatinine Glucose POC Glucose Hemoglobin A1c Calcium AST ALT C-Reactive Protein Total Protein Albumin Triglycerides Lipase Ur Specific Emmalena Urine WBC (Auto) Urine Creatinine Urine Total Protein Lymph Enumerat CD4/CD8 0.05 L % CD3 Cells 45 L Absolute CD3 Count 185 L % CD4 Cells 2 L Absolute CD4 Count 10 L % CD8 Cells 43 H Absolute CD8 Count 167 L Absolute CD19 Count 79 L HIV DNA Qual (PCR) HIV-1 RNA PCR copies/ml HIV-1 RNA (PCR) log Miscellaneous Test Crossmatch 06/19/18 06/19/18 06/19/18 08:07 08:16 09:20 WBC RBC Hgb Hct MCV MCHC RDW Plt Count Seg Neuts % (Manual) Lymphocytes % (Manual) Nucleated RBC % Seg Neutrophils # Man Abs Lymphs (Manual) Lymphocytes # (Manual) PT INR D-Dimer POC ABG pH 6.996 L POC ABG pCO2 82.4 H POC ABG pO2 Sodium Potassium Chloride Carbon Dioxide BUN Creatinine Glucose POC Glucose Hemoglobin A1c Calcium AST ALT C-Reactive Protein Total Protein Albumin Triglycerides Lipase Ur Specific Emmalena 1.060 H Urine WBC (Auto) 8.0 H Urine Creatinine Urine Total Protein Lymph Enumerat CD4/CD8 % CD3 Cells Absolute CD3 Count % CD4 Cells Absolute CD4 Count % CD8 Cells Absolute CD8 Count Absolute CD19 Count HIV DNA Qual (PCR) Detected H HIV-1 RNA PCR copies/ml HIV-1 RNA (PCR) log Miscellaneous Test Crossmatch 06/19/18 06/19/18 06/19/18 09:49 11:15 15:16 WBC RBC Hgb Hct MCV MCHC RDW Plt Count Seg Neuts % (Manual) Lymphocytes % (Manual) Nucleated RBC % Seg Neutrophils # Man Abs Lymphs (Manual) Lymphocytes # (Manual) PT INR D-Dimer POC ABG pH 7.198 L 7.206 L POC ABG pCO2 POC ABG pO2 75 L Sodium Potassium Chloride Carbon Dioxide BUN Creatinine Glucose POC Glucose Hemoglobin A1c Calcium AST ALT C-Reactive Protein Total Protein Albumin Triglycerides Lipase Ur Specific Emmalena Urine WBC (Auto) Urine Creatinine Urine Total Protein Lymph Enumerat CD4/CD8 % CD3 Cells Absolute CD3 Count % CD4 Cells Absolute CD4 Count % CD8 Cells Absolute CD8 Count Absolute CD19 Count HIV DNA Qual (PCR) HIV-1 RNA PCR copies/ml 6117796 H HIV-1 RNA (PCR) log 6.11 H Miscellaneous Test Crossmatch 06/19/18 06/19/18 06/19/18 18:54 Unknown Unknown WBC 12.9 H RBC Hgb Hct MCV MCHC RDW Plt Count Seg Neuts % (Manual) Lymphocytes % (Manual) 5.0 L Nucleated RBC % Seg Neutrophils # Man Abs Lymphs (Manual) Lymphocytes # (Manual) 0.6 L PT 15.9 H INR 1.19 H D-Dimer 8449.09 H POC ABG pH POC ABG pCO2 POC ABG pO2 Sodium Potassium Chloride Carbon Dioxide BUN Creatinine Glucose POC Glucose 196 H Hemoglobin A1c Calcium AST ALT C-Reactive Protein Total Protein Albumin Triglycerides Lipase Ur Specific Emmalena Urine WBC (Auto) Urine Creatinine Urine Total Protein Lymph Enumerat CD4/CD8 % CD3 Cells Absolute CD3 Count % CD4 Cells Absolute CD4 Count % CD8 Cells Absolute CD8 Count Absolute CD19 Count HIV DNA Qual (PCR) HIV-1 RNA PCR copies/ml HIV-1 RNA (PCR) log Miscellaneous Test Crossmatch 06/19/18 06/19/18 06/20/18 Unknown Unknown 04:33 WBC RBC Hgb Hct MCV MCHC RDW Plt Count Seg Neuts % (Manual) Lymphocytes % (Manual) Nucleated RBC % Seg Neutrophils # Man Abs Lymphs (Manual) Lymphocytes # (Manual) PT INR D-Dimer POC ABG pH 7.249 L POC ABG pCO2 POC ABG pO2 118 H Sodium 129 L Potassium Chloride 90.7 L Carbon Dioxide 17 L BUN Creatinine 0.6 L Glucose 199 H POC Glucose Hemoglobin A1c Calcium 8.1 L AST 53 H ALT C-Reactive Protein Total Protein 6.0 L Albumin 2.8 L Triglycerides Lipase Ur Specific Emmalena Urine WBC (Auto) Urine Creatinine Urine Total Protein Lymph Enumerat CD4/CD8 % CD3 Cells Absolute CD3 Count % CD4 Cells Absolute CD4 Count % CD8 Cells Absolute CD8 Count Absolute CD19 Count HIV DNA Qual (PCR) HIV-1 RNA PCR copies/ml HIV-1 RNA (PCR) log Miscellaneous Test Crossmatch 06/20/18 06/20/18 06/20/18 08:13 08:13 12:59 WBC 11.8 H RBC 3.25 L Hgb 9.8 L D Hct 30.4 L D MCV MCHC RDW Plt Count Seg Neuts % (Manual) 99.0 H Lymphocytes % (Manual) 1.0 L Nucleated RBC % Seg Neutrophils # Man 11.7 H Abs Lymphs (Manual) Lymphocytes # (Manual) 0.1 L PT INR D-Dimer POC ABG pH POC ABG pCO2 POC ABG pO2 Sodium Potassium Chloride Carbon Dioxide 19 L BUN Creatinine Glucose 223 H POC Glucose 174 H Hemoglobin A1c Calcium 6.6 L D AST 1240 H ALT 836 H C-Reactive Protein Total Protein 4.9 L Albumin 2.1 L Triglycerides Lipase Ur Specific Emmalena Urine WBC (Auto) Urine Creatinine Urine Total Protein Lymph Enumerat CD4/CD8 % CD3 Cells Absolute CD3 Count % CD4 Cells Absolute CD4 Count % CD8 Cells Absolute CD8 Count Absolute CD19 Count HIV DNA Qual (PCR) HIV-1 RNA PCR copies/ml HIV-1 RNA (PCR) log Miscellaneous Test Crossmatch 06/20/18 06/20/18 06/21/18 17:42 23:44 04:08 WBC RBC Hgb Hct MCV MCHC RDW Plt Count Seg Neuts % (Manual) Lymphocytes % (Manual) Nucleated RBC % Seg Neutrophils # Man Abs Lymphs (Manual) Lymphocytes # (Manual) PT INR D-Dimer POC ABG pH 7.309 L POC ABG pCO2 POC ABG pO2 Sodium Potassium Chloride Carbon Dioxide BUN Creatinine Glucose POC Glucose 177 H 195 H Hemoglobin A1c Calcium AST ALT C-Reactive Protein Total Protein Albumin Triglycerides Lipase Ur Specific Emmalena Urine WBC (Auto) Urine Creatinine Urine Total Protein Lymph Enumerat CD4/CD8 % CD3 Cells Absolute CD3 Count % CD4 Cells Absolute CD4 Count % CD8 Cells Absolute CD8 Count Absolute CD19 Count HIV DNA Qual (PCR) HIV-1 RNA PCR copies/ml HIV-1 RNA (PCR) log Miscellaneous Test Crossmatch 06/21/18 06/21/18 06/21/18 04:19 04:19 05:27 WBC 13.8 H RBC 3.02 L Hgb 9.2 L Hct 28.0 L MCV MCHC RDW Plt Count Seg Neuts % (Manual) Lymphocytes % (Manual) Nucleated RBC % Seg Neutrophils # Man Abs Lymphs (Manual) Lymphocytes # (Manual) PT INR D-Dimer POC ABG pH POC ABG pCO2 POC ABG pO2 Sodium 135 L Potassium Chloride Carbon Dioxide 21 L BUN Creatinine 0.7 L Glucose 161 H POC Glucose 187 H Hemoglobin A1c Calcium 7.2 L AST 390 H ALT 622 H C-Reactive Protein Total Protein 5.3 L Albumin 2.4 L Triglycerides Lipase Ur Specific Emmalena Urine WBC (Auto) Urine Creatinine Urine Total Protein Lymph Enumerat CD4/CD8 % CD3 Cells Absolute CD3 Count % CD4 Cells Absolute CD4 Count % CD8 Cells Absolute CD8 Count Absolute CD19 Count HIV DNA Qual (PCR) HIV-1 RNA PCR copies/ml HIV-1 RNA (PCR) log Miscellaneous Test Crossmatch 06/21/18 06/21/18 06/21/18 11:33 12:32 17:45 WBC RBC Hgb Hct MCV MCHC RDW Plt Count Seg Neuts % (Manual) Lymphocytes % (Manual) Nucleated RBC % Seg Neutrophils # Man Abs Lymphs (Manual) Lymphocytes # (Manual) PT INR D-Dimer POC ABG pH POC ABG pCO2 POC ABG pO2 Sodium Potassium Chloride Carbon Dioxide BUN Creatinine Glucose POC Glucose 147 H 172 H Hemoglobin A1c Calcium AST ALT C-Reactive Protein Total Protein Albumin Triglycerides Lipase Ur Specific Emmalena Urine WBC (Auto) Urine Creatinine Urine Total Protein Lymph Enumerat CD4/CD8 % CD3 Cells Absolute CD3 Count % CD4 Cells Absolute CD4 Count % CD8 Cells Absolute CD8 Count Absolute CD19 Count HIV DNA Qual (PCR) HIV-1 RNA PCR copies/ml HIV-1 RNA (PCR) log Miscellaneous Test see below H Crossmatch 06/21/18 06/22/18 06/22/18 23:25 04:47 04:47 WBC 11.5 H RBC 2.93 L Hgb 9.0 L Hct 26.5 L MCV MCHC RDW Plt Count Seg Neuts % (Manual) Lymphocytes % (Manual) Nucleated RBC % Seg Neutrophils # Man Abs Lymphs (Manual) Lymphocytes # (Manual) PT INR D-Dimer POC ABG pH POC ABG pCO2 POC ABG pO2 Sodium Potassium Chloride Carbon Dioxide BUN 22 H Creatinine Glucose 201 H POC Glucose 152 H Hemoglobin A1c Calcium 7.8 L AST 129 H ALT 416 H C-Reactive Protein Total Protein 5.3 L Albumin 2.4 L Triglycerides Lipase Ur Specific Emmalena Urine WBC (Auto) Urine Creatinine Urine Total Protein Lymph Enumerat CD4/CD8 % CD3 Cells Absolute CD3 Count % CD4 Cells Absolute CD4 Count % CD8 Cells Absolute CD8 Count Absolute CD19 Count HIV DNA Qual (PCR) HIV-1 RNA PCR copies/ml HIV-1 RNA (PCR) log Miscellaneous Test Crossmatch 06/22/18 06/22/18 06/22/18 05:23 11:43 17:45 WBC RBC Hgb Hct MCV MCHC RDW Plt Count Seg Neuts % (Manual) Lymphocytes % (Manual) Nucleated RBC % Seg Neutrophils # Man Abs Lymphs (Manual) Lymphocytes # (Manual) PT INR D-Dimer POC ABG pH POC ABG pCO2 POC ABG pO2 Sodium Potassium Chloride Carbon Dioxide BUN Creatinine Glucose POC Glucose 170 H 175 H 176 H Hemoglobin A1c Calcium AST ALT C-Reactive Protein Total Protein Albumin Triglycerides Lipase Ur Specific Emmalena Urine WBC (Auto) Urine Creatinine Urine Total Protein Lymph Enumerat CD4/CD8 % CD3 Cells Absolute CD3 Count % CD4 Cells Absolute CD4 Count % CD8 Cells Absolute CD8 Count Absolute CD19 Count HIV DNA Qual (PCR) HIV-1 RNA PCR copies/ml HIV-1 RNA (PCR) log Miscellaneous Test Crossmatch 06/23/18 06/23/18 06/23/18 00:24 05:06 05:11 WBC 11.2 H RBC 2.78 L Hgb 8.6 L Hct 25.3 L MCV MCHC RDW Plt Count Seg Neuts % (Manual) Lymphocytes % (Manual) Nucleated RBC % Seg Neutrophils # Man Abs Lymphs (Manual) Lymphocytes # (Manual) PT INR D-Dimer POC ABG pH POC ABG pCO2 POC ABG pO2 Sodium Potassium Chloride Carbon Dioxide BUN Creatinine Glucose POC Glucose 178 H 182 H Hemoglobin A1c Calcium AST ALT C-Reactive Protein Total Protein Albumin Triglycerides Lipase Ur Specific Emmalena Urine WBC (Auto) Urine Creatinine Urine Total Protein Lymph Enumerat CD4/CD8 % CD3 Cells Absolute CD3 Count % CD4 Cells Absolute CD4 Count % CD8 Cells Absolute CD8 Count Absolute CD19 Count HIV DNA Qual (PCR) HIV-1 RNA PCR copies/ml HIV-1 RNA (PCR) log Miscellaneous Test Crossmatch 06/23/18 06/23/18 06/23/18 05:11 05:51 12:21 WBC RBC Hgb Hct MCV MCHC RDW Plt Count Seg Neuts % (Manual) Lymphocytes % (Manual) Nucleated RBC % Seg Neutrophils # Man Abs Lymphs (Manual) Lymphocytes # (Manual) PT INR D-Dimer POC ABG pH POC ABG pCO2 POC ABG pO2 69 L Sodium Potassium Chloride Carbon Dioxide BUN 34 H Creatinine 1.7 H D Glucose 191 H POC Glucose 181 H Hemoglobin A1c Calcium 7.5 L AST 63 H ALT 297 H C-Reactive Protein Total Protein 5.3 L Albumin 2.4 L Triglycerides Lipase Ur Specific Emmalena Urine WBC (Auto) Urine Creatinine Urine Total Protein Lymph Enumerat CD4/CD8 % CD3 Cells Absolute CD3 Count % CD4 Cells Absolute CD4 Count % CD8 Cells Absolute CD8 Count Absolute CD19 Count HIV DNA Qual (PCR) HIV-1 RNA PCR copies/ml HIV-1 RNA (PCR) log Miscellaneous Test Crossmatch 06/23/18 06/23/18 06/23/18 13:57 17:00 18:40 WBC RBC Hgb Hct MCV MCHC RDW Plt Count Seg Neuts % (Manual) Lymphocytes % (Manual) Nucleated RBC % Seg Neutrophils # Man Abs Lymphs (Manual) Lymphocytes # (Manual) PT INR D-Dimer POC ABG pH POC ABG pCO2 POC ABG pO2 Sodium Potassium Chloride Carbon Dioxide BUN 38 H Creatinine 1.8 H Glucose POC Glucose 196 H Hemoglobin A1c Calcium AST ALT C-Reactive Protein 1.60 H Total Protein Albumin Triglycerides Lipase Ur Specific Emmalena Urine WBC (Auto) Urine Creatinine Urine Total Protein Lymph Enumerat CD4/CD8 % CD3 Cells Absolute CD3 Count % CD4 Cells Absolute CD4 Count % CD8 Cells Absolute CD8 Count Absolute CD19 Count HIV DNA Qual (PCR) HIV-1 RNA PCR copies/ml HIV-1 RNA (PCR) log Miscellaneous Test Crossmatch 06/23/18 06/23/18 06/24/18 21:16 23:22 04:12 WBC RBC 2.89 L Hgb 8.8 L Hct 26.9 L MCV MCHC RDW Plt Count Seg Neuts % (Manual) Lymphocytes % (Manual) Nucleated RBC % Seg Neutrophils # Man Abs Lymphs (Manual) Lymphocytes # (Manual) PT INR D-Dimer POC ABG pH 7.311 L POC ABG pCO2 47.4 H POC ABG pO2 Sodium Potassium Chloride Carbon Dioxide BUN Creatinine Glucose POC Glucose 165 H Hemoglobin A1c Calcium AST ALT C-Reactive Protein Total Protein Albumin Triglycerides Lipase Ur Specific Emmalena Urine WBC (Auto) Urine Creatinine Urine Total Protein Lymph Enumerat CD4/CD8 % CD3 Cells Absolute CD3 Count % CD4 Cells Absolute CD4 Count % CD8 Cells Absolute CD8 Count Absolute CD19 Count HIV DNA Qual (PCR) HIV-1 RNA PCR copies/ml HIV-1 RNA (PCR) log Miscellaneous Test Crossmatch 06/24/18 06/24/18 06/24/18 04:12 04:46 05:24 WBC RBC Hgb Hct MCV MCHC RDW Plt Count Seg Neuts % (Manual) Lymphocytes % (Manual) Nucleated RBC % Seg Neutrophils # Man Abs Lymphs (Manual) Lymphocytes # (Manual) PT INR D-Dimer POC ABG pH 7.250 L POC ABG pCO2 55.8 H POC ABG pO2 Sodium Potassium 5.4 H Chloride Carbon Dioxide BUN 44 H Creatinine 2.2 H Glucose 206 H POC Glucose 183 H Hemoglobin A1c Calcium 7.5 L AST ALT C-Reactive Protein Total Protein Albumin Triglycerides Lipase Ur Specific Emmalena Urine WBC (Auto) Urine Creatinine Urine Total Protein Lymph Enumerat CD4/CD8 % CD3 Cells Absolute CD3 Count % CD4 Cells Absolute CD4 Count % CD8 Cells Absolute CD8 Count Absolute CD19 Count HIV DNA Qual (PCR) HIV-1 RNA PCR copies/ml HIV-1 RNA (PCR) log Miscellaneous Test Crossmatch 06/24/18 06/24/18 06/24/18 11:14 16:40 17:16 WBC RBC Hgb Hct MCV MCHC RDW Plt Count Seg Neuts % (Manual) Lymphocytes % (Manual) Nucleated RBC % Seg Neutrophils # Man Abs Lymphs (Manual) Lymphocytes # (Manual) PT INR D-Dimer POC ABG pH 7.067 L POC ABG pCO2 91.7 H POC ABG pO2 134 H Sodium Potassium Chloride Carbon Dioxide BUN Creatinine Glucose POC Glucose 151 H 195 H Hemoglobin A1c Calcium AST ALT C-Reactive Protein Total Protein Albumin Triglycerides Lipase Ur Specific Emmalena Urine WBC (Auto) Urine Creatinine Urine Total Protein Lymph Enumerat CD4/CD8 % CD3 Cells Absolute CD3 Count % CD4 Cells Absolute CD4 Count % CD8 Cells Absolute CD8 Count Absolute CD19 Count HIV DNA Qual (PCR) HIV-1 RNA PCR copies/ml HIV-1 RNA (PCR) log Miscellaneous Test Crossmatch 06/24/18 06/24/18 06/24/18 18:03 22:45 22:45 WBC RBC Hgb Hct MCV MCHC RDW Plt Count Seg Neuts % (Manual) Lymphocytes % (Manual) Nucleated RBC % Seg Neutrophils # Man Abs Lymphs (Manual) Lymphocytes # (Manual) PT INR D-Dimer POC ABG pH 7.234 L POC ABG pCO2 59.9 H POC ABG pO2 121 H Sodium Potassium Chloride Carbon Dioxide BUN Creatinine Glucose POC Glucose Hemoglobin A1c Calcium AST ALT C-Reactive Protein Total Protein Albumin Triglycerides Lipase Ur Specific Emmalena Urine WBC (Auto) 9.0 H Urine Creatinine 47.2 H Urine Total Protein 25 H Lymph Enumerat CD4/CD8 % CD3 Cells Absolute CD3 Count % CD4 Cells Absolute CD4 Count % CD8 Cells Absolute CD8 Count Absolute CD19 Count HIV DNA Qual (PCR) HIV-1 RNA PCR copies/ml HIV-1 RNA (PCR) log Miscellaneous Test Crossmatch 06/24/18 06/24/18 06/25/18 Unknown 23:59 04:36 WBC RBC Hgb Hct MCV MCHC RDW Plt Count Seg Neuts % (Manual) Lymphocytes % (Manual) Nucleated RBC % Seg Neutrophils # Man Abs Lymphs (Manual) Lymphocytes # (Manual) PT 15.6 H INR 1.17 H D-Dimer POC ABG pH 7.200 L POC ABG pCO2 65.3 H POC ABG pO2 Sodium Potassium Chloride Carbon Dioxide BUN Creatinine Glucose POC Glucose 233 H Hemoglobin A1c Calcium AST ALT C-Reactive Protein Total Protein Albumin Triglycerides Lipase Ur Specific Emmalena Urine WBC (Auto) Urine Creatinine Urine Total Protein Lymph Enumerat CD4/CD8 % CD3 Cells Absolute CD3 Count % CD4 Cells Absolute CD4 Count % CD8 Cells Absolute CD8 Count Absolute CD19 Count HIV DNA Qual (PCR) HIV-1 RNA PCR copies/ml HIV-1 RNA (PCR) log Miscellaneous Test Crossmatch 06/25/18 06/25/18 06/25/18 05:29 11:12 11:40 WBC RBC 2.67 L Hgb 8.5 L Hct 25.6 L MCV 96 H MCHC RDW 16.0 H Plt Count Seg Neuts % (Manual) Lymphocytes % (Manual) Nucleated RBC % Seg Neutrophils # Man Abs Lymphs (Manual) Lymphocytes # (Manual) PT INR D-Dimer POC ABG pH POC ABG pCO2 POC ABG pO2 Sodium Potassium Chloride Carbon Dioxide BUN Creatinine Glucose POC Glucose 212 H 244 H Hemoglobin A1c Calcium AST ALT C-Reactive Protein Total Protein Albumin Triglycerides Lipase Ur Specific Emmalena Urine WBC (Auto) Urine Creatinine Urine Total Protein Lymph Enumerat CD4/CD8 % CD3 Cells Absolute CD3 Count % CD4 Cells Absolute CD4 Count % CD8 Cells Absolute CD8 Count Absolute CD19 Count HIV DNA Qual (PCR) HIV-1 RNA PCR copies/ml HIV-1 RNA (PCR) log Miscellaneous Test Crossmatch 06/25/18 06/25/18 06/25/18 11:40 17:18 18:08 WBC RBC Hgb Hct MCV MCHC RDW Plt Count Seg Neuts % (Manual) Lymphocytes % (Manual) Nucleated RBC % Seg Neutrophils # Man Abs Lymphs (Manual) Lymphocytes # (Manual) PT INR D-Dimer POC ABG pH 7.206 L POC ABG pCO2 68.1 H POC ABG pO2 Sodium Potassium 5.8 H Chloride Carbon Dioxide BUN 48 H Creatinine 2.1 H Glucose 293 H POC Glucose 264 H Hemoglobin A1c Calcium 7.5 L AST ALT C-Reactive Protein Total Protein Albumin Triglycerides Lipase Ur Specific Emmalena Urine WBC (Auto) Urine Creatinine Urine Total Protein Lymph Enumerat CD4/CD8 % CD3 Cells Absolute CD3 Count % CD4 Cells Absolute CD4 Count % CD8 Cells Absolute CD8 Count Absolute CD19 Count HIV DNA Qual (PCR) HIV-1 RNA PCR copies/ml HIV-1 RNA (PCR) log Miscellaneous Test Crossmatch 06/25/18 06/25/18 06/26/18 21:20 23:59 05:10 WBC RBC Hgb Hct MCV MCHC RDW Plt Count Seg Neuts % (Manual) Lymphocytes % (Manual) Nucleated RBC % Seg Neutrophils # Man Abs Lymphs (Manual) Lymphocytes # (Manual) PT INR D-Dimer POC ABG pH 7.220 L POC ABG pCO2 65.0 H POC ABG pO2 71 L Sodium Potassium Chloride Carbon Dioxide BUN Creatinine Glucose POC Glucose 231 H 259 H Hemoglobin A1c Calcium AST ALT C-Reactive Protein Total Protein Albumin Triglycerides Lipase Ur Specific Emmalena Urine WBC (Auto) Urine Creatinine Urine Total Protein Lymph Enumerat CD4/CD8 % CD3 Cells Absolute CD3 Count % CD4 Cells Absolute CD4 Count % CD8 Cells Absolute CD8 Count Absolute CD19 Count HIV DNA Qual (PCR) HIV-1 RNA PCR copies/ml HIV-1 RNA (PCR) log Miscellaneous Test Crossmatch 06/26/18 06/26/18 06/26/18 05:29 07:25 07:25 WBC 12.0 H RBC 2.69 L Hgb 8.2 L Hct 25.5 L MCV 95 H MCHC RDW 15.7 H Plt Count Seg Neuts % (Manual) Lymphocytes % (Manual) Nucleated RBC % Seg Neutrophils # Man Abs Lymphs (Manual) Lymphocytes # (Manual) PT INR D-Dimer POC ABG pH 7.240 L POC ABG pCO2 67.6 H POC ABG pO2 106 H Sodium Potassium 5.2 H Chloride Carbon Dioxide BUN 58 H Creatinine 1.9 H Glucose 219 H POC Glucose Hemoglobin A1c Calcium 7.9 L AST ALT C-Reactive Protein Total Protein Albumin Triglycerides Lipase Ur Specific Emmalena Urine WBC (Auto) Urine Creatinine Urine Total Protein Lymph Enumerat CD4/CD8 % CD3 Cells Absolute CD3 Count % CD4 Cells Absolute CD4 Count % CD8 Cells Absolute CD8 Count Absolute CD19 Count HIV DNA Qual (PCR) HIV-1 RNA PCR copies/ml HIV-1 RNA (PCR) log Miscellaneous Test Crossmatch 06/26/18 06/26/18 06/26/18 07:25 12:49 17:42 WBC RBC Hgb Hct MCV MCHC RDW Plt Count Seg Neuts % (Manual) Lymphocytes % (Manual) Nucleated RBC % Seg Neutrophils # Man Abs Lymphs (Manual) Lymphocytes # (Manual) PT INR D-Dimer POC ABG pH 7.178 L POC ABG pCO2 73.6 H POC ABG pO2 77 L Sodium Potassium Chloride Carbon Dioxide BUN Creatinine Glucose POC Glucose 276 H Hemoglobin A1c Calcium AST ALT C-Reactive Protein Total Protein Albumin Triglycerides 174 H Lipase Ur Specific Emm[place] Urine WBC (Auto) Urine Creatinine Urine Total Protein Lymph Enumerat CD4/CD8 % CD3 Cells Absolute CD3 Count % CD4 Cells Absolute CD4 Count % CD8 Cells Absolute CD8 Count Absolute CD19 Count HIV DNA Qual (PCR) HIV-1 RNA PCR copies/ml HIV-1 RNA (PCR) log Miscellaneous Test Crossmatch 06/26/18 06/26/18 06/26/18 18:25 21:24 23:22 WBC RBC Hgb Hct MCV MCHC RDW Plt Count Seg Neuts % (Manual) Lymphocytes % (Manual) Nucleated RBC % Seg Neutrophils # Man Abs Lymphs (Manual) Lymphocytes # (Manual) PT INR D-Dimer POC ABG pH 7.152 L POC ABG pCO2 80.6 H POC ABG pO2 Sodium Potassium Chloride Carbon Dioxide BUN Creatinine Glucose POC Glucose 304 H 282 H Hemoglobin A1c Calcium AST ALT C-Reactive Protein Total Protein Albumin Triglycerides Lipase Ur Specific [place] Urine WBC (Auto) Urine Creatinine Urine Total Protein Lymph Enumerat CD4/CD8 % CD3 Cells Absolute CD3 Count % CD4 Cells Absolute CD4 Count % CD8 Cells Absolute CD8 Count Absolute CD19 Count HIV DNA Qual (PCR) HIV-1 RNA PCR copies/ml HIV-1 RNA (PCR) log Miscellaneous Test Crossmatch 06/27/18 06/27/18 06/27/18 04:05 05:15 05:15 WBC RBC Hgb Hct MCV MCHC RDW Plt Count Seg Neuts % (Manual) Lymphocytes % (Manual) Nucleated RBC % Seg Neutrophils # Man Abs Lymphs (Manual) Lymphocytes # (Manual) PT INR D-Dimer POC ABG pH 7.266 L POC ABG pCO2 62.8 H POC ABG pO2 Sodium Potassium 5.5 H Chloride Carbon Dioxide BUN 73 H Creatinine 2.1 H Glucose 211 H POC Glucose Hemoglobin A1c Calcium 7.7 L AST ALT C-Reactive Protein Total Protein Albumin Triglycerides Lipase Ur Specific [place] Urine WBC (Auto) Urine Creatinine Urine Total Protein Lymph Enumerat CD4/CD8 % CD3 Cells Absolute CD3 Count % CD4 Cells Absolute CD4 Count % CD8 Cells Absolute CD8 Count Absolute CD19 Count HIV DNA Qual (PCR) HIV-1 RNA PCR copies/ml HIV-1 RNA (PCR) log Miscellaneous Test Flexitest 1 H Crossmatch 06/27/18 06/27/18 06/27/18 05:15 05:52 13:10 WBC RBC 2.41 L Hgb 7.6 L Hct 22.4 L MCV MCHC RDW Plt Count Seg Neuts % (Manual) Lymphocytes % (Manual) Nucleated RBC % Seg Neutrophils # Man Abs Lymphs (Manual) Lymphocytes # (Manual) PT INR D-Dimer POC ABG pH POC ABG pCO2 POC ABG pO2 Sodium Potassium Chloride Carbon Dioxide BUN Creatinine Glucose POC Glucose 198 H 238 H Hemoglobin A1c Calcium AST ALT C-Reactive Protein Total Protein Albumin Triglycerides Lipase Ur Specific [place] Urine WBC (Auto) Urine Creatinine Urine Total Protein Lymph Enumerat CD4/CD8 % CD3 Cells Absolute CD3 Count % CD4 Cells Absolute CD4 Count % CD8 Cells Absolute CD8 Count Absolute CD19 Count HIV DNA Qual (PCR) HIV-1 RNA PCR copies/ml HIV-1 RNA (PCR) log Miscellaneous Test Crossmatch 06/27/18 06/27/18 06/27/18 16:12 17:51 23:22 WBC RBC Hgb Hct MCV MCHC RDW Plt Count Seg Neuts % (Manual) Lymphocytes % (Manual) Nucleated RBC % Seg Neutrophils # Man Abs Lymphs (Manual) Lymphocytes # (Manual) PT INR D-Dimer POC ABG pH POC ABG pCO2 POC ABG pO2 Sodium Potassium Chloride Carbon Dioxide BUN Creatinine Glucose POC Glucose 174 H 162 H 171 H Hemoglobin A1c Calcium AST ALT C-Reactive Protein Total Protein Albumin Triglycerides Lipase Ur Specific [place] Urine WBC (Auto) Urine Creatinine Urine Total Protein Lymph Enumerat CD4/CD8 % CD3 Cells Absolute CD3 Count % CD4 Cells Absolute CD4 Count % CD8 Cells Absolute CD8 Count Absolute CD19 Count HIV DNA Qual (PCR) HIV-1 RNA PCR copies/ml HIV-1 RNA (PCR) log Miscellaneous Test Crossmatch 06/28/18 06/28/18 06/28/18 04:36 04:54 05:10 WBC RBC Hgb Hct MCV MCHC RDW Plt Count Seg Neuts % (Manual) Lymphocytes % (Manual) Nucleated RBC % Seg Neutrophils # Man Abs Lymphs (Manual) Lymphocytes # (Manual) PT INR D-Dimer POC ABG pH 7.257 L POC ABG pCO2 68.8 H POC ABG pO2 Sodium Potassium Chloride Carbon Dioxide BUN 93 H Creatinine 2.4 H Glucose 186 H POC Glucose 193 H Hemoglobin A1c Calcium 8.3 L AST ALT C-Reactive Protein Total Protein Albumin Triglycerides Lipase Ur Specific [place] Urine WBC (Auto) Urine Creatinine Urine Total Protein Lymph Enumerat CD4/CD8 % CD3 Cells Absolute CD3 Count % CD4 Cells Absolute CD4 Count % CD8 Cells Absolute CD8 Count Absolute CD19 Count HIV DNA Qual (PCR) HIV-1 RNA PCR copies/ml HIV-1 RNA (PCR) log Miscellaneous Test Crossmatch 06/28/18 06/28/18 06/28/18 12:15 17:43 18:26 WBC RBC Hgb Hct MCV MCHC RDW Plt Count Seg Neuts % (Manual) Lymphocytes % (Manual) Nucleated RBC % Seg Neutrophils # Man Abs Lymphs (Manual) Lymphocytes # (Manual) PT INR D-Dimer POC ABG pH 7.123 L POC ABG pCO2 82.7 H POC ABG pO2 Sodium Potassium Chloride Carbon Dioxide BUN Creatinine Glucose POC Glucose 154 H 194 H Hemoglobin A1c Calcium AST ALT C-Reactive Protein Total Protein Albumin Triglycerides Lipase Ur Specific [place] Urine WBC (Auto) Urine Creatinine Urine Total Protein Lymph Enumerat CD4/CD8 % CD3 Cells Absolute CD3 Count % CD4 Cells Absolute CD4 Count % CD8 Cells Absolute CD8 Count Absolute CD19 Count HIV DNA Qual (PCR) HIV-1 RNA PCR copies/ml HIV-1 RNA (PCR) log Miscellaneous Test Crossmatch 06/28/18 06/29/18 06/29/18 22:08 00:12 04:38 WBC RBC Hgb Hct MCV MCHC RDW Plt Count Seg Neuts % (Manual) Lymphocytes % (Manual) Nucleated RBC % Seg Neutrophils # Man Abs Lymphs (Manual) Lymphocytes # (Manual) PT INR D-Dimer POC ABG pH 7.172 L 7.158 L POC ABG pCO2 80.4 H 76.6 H POC ABG pO2 143 H Sodium Potassium Chloride Carbon Dioxide BUN Creatinine Glucose POC Glucose 202 H Hemoglobin A1c Calcium AST ALT C-Reactive Protein Total Protein Albumin Triglycerides Lipase Ur Specific [place] Urine WBC (Auto) Urine Creatinine Urine Total Protein Lymph Enumerat CD4/CD8 % CD3 Cells Absolute CD3 Count % CD4 Cells Absolute CD4 Count % CD8 Cells Absolute CD8 Count Absolute CD19 Count HIV DNA Qual (PCR) HIV-1 RNA PCR copies/ml HIV-1 RNA (PCR) log Miscellaneous Test Crossmatch 06/29/18 06/29/18 06/29/18 05:15 05:15 05:32 WBC 12.3 H RBC 1.93 L Hgb 5.9 L* Hct 18.2 L* MCV 95 H MCHC RDW Plt Count 127 L Seg Neuts % (Manual) Lymphocytes % (Manual) Nucleated RBC % Seg Neutrophils # Man Abs Lymphs (Manual) Lymphocytes # (Manual) PT INR D-Dimer POC ABG pH POC ABG pCO2 POC ABG pO2 Sodium 136 L Potassium 5.9 H Chloride 94.3 L Carbon Dioxide BUN 139 H Creatinine 4.2 H D Glucose 157 H POC Glucose 150 H Hemoglobin A1c Calcium 8.2 L AST ALT C-Reactive Protein Total Protein Albumin Triglycerides Lipase Ur Specific [place] Urine WBC (Auto) Urine Creatinine Urine Total Protein Lymph Enumerat CD4/CD8 % CD3 Cells Absolute CD3 Count % CD4 Cells Absolute CD4 Count % CD8 Cells Absolute CD8 Count Absolute CD19 Count HIV DNA Qual (PCR) HIV-1 RNA PCR copies/ml HIV-1 RNA (PCR) log Miscellaneous Test Crossmatch 06/29/18 06/29/18 06/29/18 08:07 09:50 11:55 WBC RBC Hgb 6.0 L Hct 18.4 L* MCV MCHC RDW Plt Count Seg Neuts % (Manual) Lymphocytes % (Manual) Nucleated RBC % Seg Neutrophils # Man Abs Lymphs (Manual) Lymphocytes # (Manual) PT INR D-Dimer POC ABG pH POC ABG pCO2 POC ABG pO2 Sodium Potassium Chloride Carbon Dioxide BUN Creatinine Glucose POC Glucose 236 H Hemoglobin A1c Calcium AST ALT C-Reactive Protein Total Protein Albumin Triglycerides Lipase Ur Specific [place] Urine WBC (Auto) Urine Creatinine Urine Total Protein Lymph Enumerat CD4/CD8 % CD3 Cells Absolute CD3 Count % CD4 Cells Absolute CD4 Count % CD8 Cells Absolute CD8 Count Absolute CD19 Count HIV DNA Qual (PCR) HIV-1 RNA PCR copies/ml HIV-1 RNA (PCR) log Miscellaneous Test Crossmatch See Detail 06/29/18 06/30/18 06/30/18 18:29 00:08 04:47 WBC RBC Hgb Hct MCV MCHC RDW Plt Count Seg Neuts % (Manual) Lymphocytes % (Manual) Nucleated RBC % Seg Neutrophils # Man Abs Lymphs (Manual) Lymphocytes # (Manual) PT INR D-Dimer POC ABG pH 7.182 L POC ABG pCO2 67.7 H POC ABG pO2 Sodium Potassium Chloride Carbon Dioxide BUN Creatinine Glucose POC Glucose 171 H 159 H Hemoglobin A1c Calcium AST ALT C-Reactive Protein Total Protein Albumin Triglycerides Lipase Ur Specific [place] Urine WBC (Auto) Urine Creatinine Urine Total Protein Lymph Enumerat CD4/CD8 % CD3 Cells Absolute CD3 Count % CD4 Cells Absolute CD4 Count % CD8 Cells Absolute CD8 Count Absolute CD19 Count HIV DNA Qual (PCR) HIV-1 RNA PCR copies/ml HIV-1 RNA (PCR) log Miscellaneous Test Crossmatch 06/30/18 06/30/18 06/30/18 05:07 06:00 12:43 WBC 18.2 H RBC 2.43 L Hgb 7.4 L Hct 22.0 L MCV MCHC RDW 15.3 H Plt Count 111 L Seg Neuts % (Manual) Lymphocytes % (Manual) Nucleated RBC % Seg Neutrophils # Man Abs Lymphs (Manual) Lymphocytes # (Manual) PT INR D-Dimer POC ABG pH POC ABG pCO2 POC ABG pO2 Sodium Potassium Chloride Carbon Dioxide BUN Creatinine Glucose POC Glucose 162 H 153 H Hemoglobin A1c Calcium AST ALT C-Reactive Protein Total Protein Albumin Triglycerides Lipase Ur Specific [place] Urine WBC (Auto) Urine Creatinine Urine Total Protein Lymph Enumerat CD4/CD8 % CD3 Cells Absolute CD3 Count % CD4 Cells Absolute CD4 Count % CD8 Cells Absolute CD8 Count Absolute CD19 Count HIV DNA Qual (PCR) HIV-1 RNA PCR copies/ml HIV-1 RNA (PCR) log Miscellaneous Test Crossmatch 06/30/18 06/30/18 07/01/18 18:07 Unknown 00:06 WBC RBC Hgb Hct MCV MCHC RDW Plt Count Seg Neuts % (Manual) Lymphocytes % (Manual) Nucleated RBC % Seg Neutrophils # Man Abs Lymphs (Manual) Lymphocytes # (Manual) PT INR D-Dimer POC ABG pH POC ABG pCO2 POC ABG pO2 Sodium Potassium 5.9 H Chloride 95.5 L Carbon Dioxide BUN 164 H Creatinine 5.2 H Glucose 151 H POC Glucose 183 H 208 H Hemoglobin A1c Calcium 7.6 L AST ALT C-Reactive Protein Total Protein Albumin Triglycerides 223 H Lipase Ur Specific [place] Urine WBC (Auto) Urine Creatinine Urine Total Protein Lymph Enumerat CD4/CD8 % CD3 Cells Absolute CD3 Count % CD4 Cells Absolute CD4 Count % CD8 Cells Absolute CD8 Count Absolute CD19 Count HIV DNA Qual (PCR) HIV-1 RNA PCR copies/ml HIV-1 RNA (PCR) log Miscellaneous Test Crossmatch 07/01/18 07/01/18 07/01/18 04:47 05:43 06:00 WBC RBC Hgb Hct MCV MCHC RDW Plt Count Seg Neuts % (Manual) Lymphocytes % (Manual) Nucleated RBC % Seg Neutrophils # Man Abs Lymphs (Manual) Lymphocytes # (Manual) PT INR D-Dimer POC ABG pH 7.060 L POC ABG pCO2 121.0 H POC ABG pO2 Sodium Potassium 5.8 H Chloride 94.1 L Carbon Dioxide BUN 144 H Creatinine 3.1 H Glucose 208 H POC Glucose 214 H Hemoglobin A1c Calcium 6.7 L AST ALT C-Reactive Protein Total Protein Albumin Triglycerides Lipase Ur Specific [place] Urine WBC (Auto) Urine Creatinine Urine Total Protein Lymph Enumerat CD4/CD8 % CD3 Cells Absolute CD3 Count % CD4 Cells Absolute CD4 Count % CD8 Cells Absolute CD8 Count Absolute CD19 Count HIV DNA Qual (PCR) HIV-1 RNA PCR copies/ml HIV-1 RNA (PCR) log Miscellaneous Test Crossmatch 07/01/18 07/01/18 07/01/18 06:00 06:52 10:00 WBC 17.9 H RBC 2.14 L Hgb 6.5 L 6.6 L Hct 20.0 L 20.5 L MCV MCHC RDW 15.9 H Plt Count 94 L Seg Neuts % (Manual) Lymphocytes % (Manual) Nucleated RBC % Seg Neutrophils # Man Abs Lymphs (Manual) Lymphocytes # (Manual) PT INR D-Dimer 2387.14 H POC ABG pH POC ABG pCO2 POC ABG pO2 Sodium Potassium Chloride Carbon Dioxide BUN Creatinine Glucose POC Glucose Hemoglobin A1c Calcium AST ALT C-Reactive Protein Total Protein Albumin Triglycerides Lipase Ur Specific [place] Urine WBC (Auto) Urine Creatinine Urine Total Protein Lymph Enumerat CD4/CD8 % CD3 Cells Absolute CD3 Count % CD4 Cells Absolute CD4 Count % CD8 Cells Absolute CD8 Count Absolute CD19 Count HIV DNA Qual (PCR) HIV-1 RNA PCR copies/ml HIV-1 RNA (PCR) log Miscellaneous Test Crossmatch 07/01/18 07/01/18 07/01/18 11:11 11:41 18:38 WBC RBC Hgb Hct MCV MCHC RDW Plt Count Seg Neuts % (Manual) Lymphocytes % (Manual) Nucleated RBC % Seg Neutrophils # Man Abs Lymphs (Manual) Lymphocytes # (Manual) PT INR D-Dimer POC ABG pH 7.151 L 7.168 L POC ABG pCO2 100.4 H 109.4 H POC ABG pO2 151 H 199 H Sodium Potassium Chloride Carbon Dioxide BUN Creatinine Glucose POC Glucose 213 H Hemoglobin A1c Calcium AST ALT C-Reactive Protein Total Protein Albumin Triglycerides Lipase Ur Specific [place] Urine WBC (Auto) Urine Creatinine Urine Total Protein Lymph Enumerat CD4/CD8 % CD3 Cells Absolute CD3 Count % CD4 Cells Absolute CD4 Count % CD8 Cells Absolute CD8 Count Absolute CD19 Count HIV DNA Qual (PCR) HIV-1 RNA PCR copies/ml HIV-1 RNA (PCR) log Miscellaneous Test Crossmatch 07/01/18 07/02/18 07/02/18 23:40 04:32 04:32 WBC 14.8 H RBC 2.68 L Hgb 8.1 L Hct 23.8 L MCV MCHC RDW Plt Count 81 L Seg Neuts % (Manual) Lymphocytes % (Manual) Nucleated RBC % Seg Neutrophils # Man Abs Lymphs (Manual) Lymphocytes # (Manual) PT INR D-Dimer POC ABG pH POC ABG pCO2 POC ABG pO2 Sodium 151 H D Potassium 3.1 L D Chloride Carbon Dioxide 39 H D BUN 108 H Creatinine 1.8 H Glucose 44 L POC Glucose < 40 L Hemoglobin A1c Calcium 6.6 L AST ALT C-Reactive Protein Total Protein Albumin Triglycerides Lipase Ur Specific [place] Urine WBC (Auto) Urine Creatinine Urine Total Protein Lymph Enumerat CD4/CD8 % CD3 Cells Absolute CD3 Count % CD4 Cells Absolute CD4 Count % CD8 Cells Absolute CD8 Count Absolute CD19 Count HIV DNA Qual (PCR) HIV-1 RNA PCR copies/ml HIV-1 RNA (PCR) log Miscellaneous Test Crossmatch 07/02/18 07/02/18 07/02/18 05:00 05:12 11:54 WBC RBC Hgb Hct MCV MCHC RDW Plt Count Seg Neuts % (Manual) Lymphocytes % (Manual) Nucleated RBC % Seg Neutrophils # Man Abs Lymphs (Manual) Lymphocytes # (Manual) PT INR D-Dimer POC ABG pH 7.319 L POC ABG pCO2 89.8 H POC ABG pO2 119 H Sodium Potassium Chloride Carbon Dioxide BUN Creatinine Glucose POC Glucose < 40 L < 40 L Hemoglobin A1c Calcium AST ALT C-Reactive Protein Total Protein Albumin Triglycerides Lipase Ur Specific [place] Urine WBC (Auto) Urine Creatinine Urine Total Protein Lymph Enumerat CD4/CD8 % CD3 Cells Absolute CD3 Count % CD4 Cells Absolute CD4 Count % CD8 Cells Absolute CD8 Count Absolute CD19 Count HIV DNA Qual (PCR) HIV-1 RNA PCR copies/ml HIV-1 RNA (PCR) log Miscellaneous Test Crossmatch 07/02/18 07/03/18 07/03/18 14:09 00:17 04:28 WBC RBC Hgb Hct MCV MCHC RDW Plt Count Seg Neuts % (Manual) Lymphocytes % (Manual) Nucleated RBC % Seg Neutrophils # Man Abs Lymphs (Manual) Lymphocytes # (Manual) PT INR D-Dimer POC ABG pH 7.267 L POC ABG pCO2 93.3 H POC ABG pO2 69 L Sodium Potassium Chloride Carbon Dioxide BUN Creatinine Glucose POC Glucose 53 L 69 L Hemoglobin A1c Calcium AST ALT C-Reactive Protein Total Protein Albumin Triglycerides Lipase Ur Specific [place] Urine WBC (Auto) Urine Creatinine Urine Total Protein Lymph Enumerat CD4/CD8 % CD3 Cells Absolute CD3 Count % CD4 Cells Absolute CD4 Count % CD8 Cells Absolute CD8 Count Absolute CD19 Count HIV DNA Qual (PCR) HIV-1 RNA PCR copies/ml HIV-1 RNA (PCR) log Miscellaneous Test Crossmatch 07/03/18 07/03/18 07/03/18 05:00 05:00 05:16 WBC RBC 2.23 L Hgb 7.0 L Hct 20.3 L MCV MCHC RDW Plt Count 81 L Seg Neuts % (Manual) Lymphocytes % (Manual) Nucleated RBC % Seg Neutrophils # Man Abs Lymphs (Manual) Lymphocytes # (Manual) PT INR D-Dimer POC ABG pH POC ABG pCO2 POC ABG pO2 Sodium 155 H Potassium 3.3 L Chloride Carbon Dioxide 40 H BUN 94 H Creatinine 1.7 H Glucose 115 H POC Glucose 113 H Hemoglobin A1c Calcium 6.9 L AST ALT C-Reactive Protein Total Protein Albumin Triglycerides Lipase Ur Specific [place] Urine WBC (Auto) Urine Creatinine Urine Total Protein Lymph Enumerat CD4/CD8 % CD3 Cells Absolute CD3 Count % CD4 Cells Absolute CD4 Count % CD8 Cells Absolute CD8 Count Absolute CD19 Count HIV DNA Qual (PCR) HIV-1 RNA PCR copies/ml HIV-1 RNA (PCR) log Miscellaneous Test Crossmatch 07/03/18 07/03/18 07/03/18 10:24 11:12 17:52 WBC RBC Hgb Hct MCV MCHC RDW Plt Count Seg Neuts % (Manual) Lymphocytes % (Manual) Nucleated RBC % Seg Neutrophils # Man Abs Lymphs (Manual) Lymphocytes # (Manual) PT INR D-Dimer POC ABG pH POC ABG pCO2 POC ABG pO2 Sodium Potassium Chloride Carbon Dioxide BUN Creatinine Glucose POC Glucose 125 H 167 H Hemoglobin A1c Calcium AST ALT C-Reactive Protein Total Protein Albumin Triglycerides Lipase Ur Specific [place] Urine WBC (Auto) Urine Creatinine Urine Total Protein Lymph Enumerat CD4/CD8 % CD3 Cells Absolute CD3 Count % CD4 Cells Absolute CD4 Count % CD8 Cells Absolute CD8 Count Absolute CD19 Count HIV DNA Qual (PCR) HIV-1 RNA PCR copies/ml HIV-1 RNA (PCR) log Miscellaneous Test Crossmatch See Detail 07/03/18 07/03/18 07/04/18 19:15 23:43 03:57 WBC RBC Hgb 7.8 L Hct 23.8 L MCV MCHC RDW Plt Count Seg Neuts % (Manual) Lymphocytes % (Manual) Nucleated RBC % Seg Neutrophils # Man Abs Lymphs (Manual) Lymphocytes # (Manual) PT INR D-Dimer POC ABG pH 7.229 L POC ABG pCO2 99.8 H POC ABG pO2 Sodium Potassium Chloride Carbon Dioxide BUN Creatinine Glucose POC Glucose 176 H Hemoglobin A1c Calcium AST ALT C-Reactive Protein Total Protein Albumin Triglycerides Lipase Ur Specific [place] Urine WBC (Auto) Urine Creatinine Urine Total Protein Lymph Enumerat CD4/CD8 % CD3 Cells Absolute CD3 Count % CD4 Cells Absolute CD4 Count % CD8 Cells Absolute CD8 Count Absolute CD19 Count HIV DNA Qual (PCR) HIV-1 RNA PCR copies/ml HIV-1 RNA (PCR) log Miscellaneous Test Crossmatch 07/04/18 07/04/18 07/04/18 06:06 12:42 17:49 WBC RBC Hgb Hct MCV MCHC RDW Plt Count Seg Neuts % (Manual) Lymphocytes % (Manual) Nucleated RBC % Seg Neutrophils # Man Abs Lymphs (Manual) Lymphocytes # (Manual) PT INR D-Dimer POC ABG pH POC ABG pCO2 POC ABG pO2 Sodium Potassium Chloride Carbon Dioxide BUN Creatinine Glucose POC Glucose 168 H 130 H 169 H Hemoglobin A1c Calcium AST ALT C-Reactive Protein Total Protein Albumin Triglycerides Lipase Ur Specific [place] Urine WBC (Auto) Urine Creatinine Urine Total Protein Lymph Enumerat CD4/CD8 % CD3 Cells Absolute CD3 Count % CD4 Cells Absolute CD4 Count % CD8 Cells Absolute CD8 Count Absolute CD19 Count HIV DNA Qual (PCR) HIV-1 RNA PCR copies/ml HIV-1 RNA (PCR) log Miscellaneous Test Crossmatch 07/04/18 07/04/18 07/04/18 23:12 Unknown Unknown WBC 12.7 H RBC 2.57 L Hgb 7.7 L Hct 23.9 L MCV MCHC RDW 15.3 H Plt Count 68 L Seg Neuts % (Manual) Lymphocytes % (Manual) Nucleated RBC % Seg Neutrophils # Man Abs Lymphs (Manual) Lymphocytes # (Manual) PT INR D-Dimer POC ABG pH POC ABG pCO2 POC ABG pO2 Sodium 154 H Potassium Chloride Carbon Dioxide 41 H* BUN 85 H Creatinine 1.7 H Glucose 130 H POC Glucose 162 H Hemoglobin A1c Calcium 7.6 L AST ALT C-Reactive Protein Total Protein Albumin Triglycerides 250 H Lipase Ur Specific [place] Urine WBC (Auto) Urine Creatinine Urine Total Protein Lymph Enumerat CD4/CD8 % CD3 Cells Absolute CD3 Count % CD4 Cells Absolute CD4 Count % CD8 Cells Absolute CD8 Count Absolute CD19 Count HIV DNA Qual (PCR) HIV-1 RNA PCR copies/ml HIV-1 RNA (PCR) log Miscellaneous Test Crossmatch 07/05/18 07/05/18 07/05/18 05:42 05:46 12:45 WBC RBC Hgb Hct MCV MCHC RDW Plt Count Seg Neuts % (Manual) Lymphocytes % (Manual) Nucleated RBC % Seg Neutrophils # Man Abs Lymphs (Manual) Lymphocytes # (Manual) PT INR D-Dimer POC ABG pH 7.240 L POC ABG pCO2 97.9 H POC ABG pO2 71 L Sodium Potassium Chloride Carbon Dioxide BUN Creatinine Glucose POC Glucose 278 H 268 H Hemoglobin A1c Calcium AST ALT C-Reactive Protein Total Protein Albumin Triglycerides Lipase Ur Specific [place] Urine WBC (Auto) Urine Creatinine Urine Total Protein Lymph Enumerat CD4/CD8 % CD3 Cells Absolute CD3 Count % CD4 Cells Absolute CD4 Count % CD8 Cells Absolute CD8 Count Absolute CD19 Count HIV DNA Qual (PCR) HIV-1 RNA PCR copies/ml HIV-1 RNA (PCR) log Miscellaneous Test Crossmatch 07/05/18 07/05/18 07/05/18 16:22 17:43 17:54 WBC RBC Hgb Hct MCV MCHC RDW Plt Count Seg Neuts % (Manual) Lymphocytes % (Manual) Nucleated RBC % Seg Neutrophils # Man Abs Lymphs (Manual) Lymphocytes # (Manual) PT INR D-Dimer POC ABG pH 7.094 L 7.112 L POC ABG pCO2 129.6 H 125.4 H POC ABG pO2 181 H 69 L Sodium Potassium Chloride Carbon Dioxide BUN Creatinine Glucose POC Glucose 221 H Hemoglobin A1c Calcium AST ALT C-Reactive Protein Total Protein Albumin Triglycerides Lipase Ur Specific [place] Urine WBC (Auto) Urine Creatinine Urine Total Protein Lymph Enumerat CD4/CD8 % CD3 Cells Absolute CD3 Count % CD4 Cells Absolute CD4 Count % CD8 Cells Absolute CD8 Count Absolute CD19 Count HIV DNA Qual (PCR) HIV-1 RNA PCR copies/ml HIV-1 RNA (PCR) log Miscellaneous Test Crossmatch 07/05/18 07/05/18 07/06/18 20:15 23:18 05:20 WBC RBC Hgb Hct MCV MCHC RDW Plt Count Seg Neuts % (Manual) Lymphocytes % (Manual) Nucleated RBC % Seg Neutrophils # Man Abs Lymphs (Manual) Lymphocytes # (Manual) PT INR D-Dimer POC ABG pH 7.140 L 7.256 L POC ABG pCO2 121.0 H 97.8 H POC ABG pO2 113 H 137 H Sodium Potassium Chloride Carbon Dioxide BUN Creatinine Glucose POC Glucose 227 H Hemoglobin A1c Calcium AST ALT C-Reactive Protein Total Protein Albumin Triglycerides Lipase Ur Specific [place] Urine WBC (Auto) Urine Creatinine Urine Total Protein Lymph Enumerat CD4/CD8 % CD3 Cells Absolute CD3 Count % CD4 Cells Absolute CD4 Count % CD8 Cells Absolute CD8 Count Absolute CD19 Count HIV DNA Qual (PCR) HIV-1 RNA PCR copies/ml HIV-1 RNA (PCR) log Miscellaneous Test Crossmatch 07/06/18 07/06/18 07/06/18 06:04 06:36 06:36 WBC RBC 2.30 L Hgb 7.3 L Hct 22.3 L MCV 97 H MCHC RDW 15.9 H Plt Count 56 L Seg Neuts % (Manual) 97.0 H Lymphocytes % (Manual) 3.0 L Nucleated RBC % Seg Neutrophils # Man 9.6 H Abs Lymphs (Manual) Lymphocytes # (Manual) 0.3 L PT INR D-Dimer POC ABG pH POC ABG pCO2 POC ABG pO2 Sodium 157 H Potassium Chloride 111.9 H Carbon Dioxide 41 H* BUN 52 H Creatinine Glucose 278 H POC Glucose 277 H Hemoglobin A1c Calcium 8.1 L AST ALT C-Reactive Protein Total Protein Albumin Triglycerides Lipase Ur Specific [place] Urine WBC (Auto) Urine Creatinine Urine Total Protein Lymph Enumerat CD4/CD8 % CD3 Cells Absolute CD3 Count % CD4 Cells Absolute CD4 Count % CD8 Cells Absolute CD8 Count Absolute CD19 Count HIV DNA Qual (PCR) HIV-1 RNA PCR copies/ml HIV-1 RNA (PCR) log Miscellaneous Test Crossmatch 07/06/18 07/06/18 07/06/18 12:13 17:57 23:18 WBC RBC Hgb Hct MCV MCHC RDW Plt Count Seg Neuts % (Manual) Lymphocytes % (Manual) Nucleated RBC % Seg Neutrophils # Man Abs Lymphs (Manual) Lymphocytes # (Manual) PT INR D-Dimer POC ABG pH POC ABG pCO2 POC ABG pO2 Sodium Potassium Chloride Carbon Dioxide BUN Creatinine Glucose POC Glucose 279 H 265 H 231 H Hemoglobin A1c Calcium AST ALT C-Reactive Protein Total Protein Albumin Triglycerides Lipase Ur Specific [place] Urine WBC (Auto) Urine Creatinine Urine Total Protein Lymph Enumerat CD4/CD8 % CD3 Cells Absolute CD3 Count % CD4 Cells Absolute CD4 Count % CD8 Cells Absolute CD8 Count Absolute CD19 Count HIV DNA Qual (PCR) HIV-1 RNA PCR copies/ml HIV-1 RNA (PCR) log Miscellaneous Test Crossmatch 07/07/18 07/07/18 07/07/18 04:00 04:00 04:00 WBC 12.1 H RBC 2.40 L Hgb 7.3 L Hct 23.2 L MCV 97 H MCHC 31 L RDW 15.7 H Plt Count 57 L Seg Neuts % (Manual) 95.0 H Lymphocytes % (Manual) 2.0 L Nucleated RBC % 2.0 H Seg Neutrophils # Man 11.5 H Abs Lymphs (Manual) Lymphocytes # (Manual) 0.2 L PT INR D-Dimer POC ABG pH POC ABG pCO2 POC ABG pO2 Sodium 154 H Potassium Chloride 108.1 H Carbon Dioxide 42 H* BUN 43 H Creatinine 0.7 L Glucose 260 H POC Glucose Hemoglobin A1c 6.3 H Calcium 8.1 L AST ALT C-Reactive Protein Total Protein Albumin Triglycerides Lipase Ur Specific [place] Urine WBC (Auto) Urine Creatinine Urine Total Protein Lymph Enumerat CD4/CD8 % CD3 Cells Absolute CD3 Count % CD4 Cells Absolute CD4 Count % CD8 Cells Absolute CD8 Count Absolute CD19 Count HIV DNA Qual (PCR) HIV-1 RNA PCR copies/ml HIV-1 RNA (PCR) log Miscellaneous Test Crossmatch 07/07/18 07/07/18 07/07/18 05:02 05:40 11:16 WBC RBC Hgb Hct MCV MCHC RDW Plt Count Seg Neuts % (Manual) Lymphocytes % (Manual) Nucleated RBC % Seg Neutrophils # Man Abs Lymphs (Manual) Lymphocytes # (Manual) PT INR D-Dimer POC ABG pH 7.295 L POC ABG pCO2 91.5 H POC ABG pO2 73 L Sodium Potassium Chloride Carbon Dioxide BUN Creatinine Glucose POC Glucose 292 H 262 H Hemoglobin A1c Calcium AST ALT C-Reactive Protein Total Protein Albumin Triglycerides Lipase Ur Specific Emmalena Urine WBC (Auto) Urine Creatinine Urine Total Protein Lymph Enumerat CD4/CD8 % CD3 Cells Absolute CD3 Count % CD4 Cells Absolute CD4 Count % CD8 Cells Absolute CD8 Count Absolute CD19 Count HIV DNA Qual (PCR) HIV-1 RNA PCR copies/ml HIV-1 RNA (PCR) log Miscellaneous Test Crossmatch 07/07/18 07/07/18 07/08/18 17:32 23:26 04:05 WBC RBC Hgb Hct MCV MCHC RDW Plt Count Seg Neuts % (Manual) Lymphocytes % (Manual) Nucleated RBC % Seg Neutrophils # Man Abs Lymphs (Manual) Lymphocytes # (Manual) PT INR D-Dimer POC ABG pH 7.279 L POC ABG pCO2 100.4 H POC ABG pO2 134 H Sodium Potassium Chloride Carbon Dioxide BUN Creatinine Glucose POC Glucose 254 H 168 H Hemoglobin A1c Calcium AST ALT C-Reactive Protein Total Protein Albumin Triglycerides Lipase Ur Specific Emmalena Urine WBC (Auto) Urine Creatinine Urine Total Protein Lymph Enumerat CD4/CD8 % CD3 Cells Absolute CD3 Count % CD4 Cells Absolute CD4 Count % CD8 Cells Absolute CD8 Count Absolute CD19 Count HIV DNA Qual (PCR) HIV-1 RNA PCR copies/ml HIV-1 RNA (PCR) log Miscellaneous Test Crossmatch 07/08/18 07/08/18 07/08/18 05:00 05:00 06:45 WBC 12.6 H RBC 2.27 L Hgb 6.9 L Hct 21.8 L MCV 96 H MCHC RDW Plt Count 57 L Seg Neuts % (Manual) 98.0 H Lymphocytes % (Manual) 0 L Nucleated RBC % Seg Neutrophils # Man 12.3 H Abs Lymphs (Manual) Lymphocytes # (Manual) 0.0 L PT INR D-Dimer POC ABG pH POC ABG pCO2 POC ABG pO2 Sodium 156 H Potassium Chloride 109.6 H Carbon Dioxide 45 H* BUN 40 H Creatinine 0.6 L Glucose 200 H POC Glucose 193 H Hemoglobin A1c Calcium 8.2 L AST ALT C-Reactive Protein Total Protein Albumin Triglycerides Lipase Ur Specific Emmalena Urine WBC (Auto) Urine Creatinine Urine Total Protein Lymph Enumerat CD4/CD8 % CD3 Cells Absolute CD3 Count % CD4 Cells Absolute CD4 Count % CD8 Cells Absolute CD8 Count Absolute CD19 Count HIV DNA Qual (PCR) HIV-1 RNA PCR copies/ml HIV-1 RNA (PCR) log Miscellaneous Test Crossmatch 07/08/18 07/08/18 07/08/18 09:53 12:44 17:37 WBC RBC Hgb Hct MCV MCHC RDW Plt Count Seg Neuts % (Manual) Lymphocytes % (Manual) Nucleated RBC % Seg Neutrophils # Man Abs Lymphs (Manual) Lymphocytes # (Manual) PT INR D-Dimer POC ABG pH POC ABG pCO2 POC ABG pO2 Sodium Potassium Chloride Carbon Dioxide BUN Creatinine Glucose POC Glucose 163 H 125 H Hemoglobin A1c Calcium AST ALT C-Reactive Protein Total Protein Albumin Triglycerides Lipase Ur Specific Emmalena Urine WBC (Auto) Urine Creatinine Urine Total Protein Lymph Enumerat CD4/CD8 % CD3 Cells Absolute CD3 Count % CD4 Cells Absolute CD4 Count % CD8 Cells Absolute CD8 Count Absolute CD19 Count HIV DNA Qual (PCR) HIV-1 RNA PCR copies/ml HIV-1 RNA (PCR) log Miscellaneous Test Crossmatch See Detail 07/09/18 07/09/18 07/10/18 10:55 10:55 07:20 WBC RBC 2.44 L 2.33 L Hgb 7.6 L 7.1 L Hct 23.3 L 22.3 L MCV 95 H 96 H MCHC RDW Plt Count 49 L 55 L Seg Neuts % (Manual) 98.0 H Lymphocytes % (Manual) 2.0 L Nucleated RBC % Seg Neutrophils # Man 10.8 H Abs Lymphs (Manual) Lymphocytes # (Manual) 0.2 L PT INR D-Dimer POC ABG pH POC ABG pCO2 POC ABG pO2 Sodium 154 H Potassium Chloride Carbon Dioxide 46 H* BUN 30 H Creatinine 0.6 L Glucose 125 H POC Glucose Hemoglobin A1c Calcium 7.9 L AST ALT C-Reactive Protein Total Protein Albumin Triglycerides Lipase Ur Specific Emmalena Urine WBC (Auto) Urine Creatinine Urine Total Protein Lymph Enumerat CD4/CD8 % CD3 Cells Absolute CD3 Count % CD4 Cells Absolute CD4 Count % CD8 Cells Absolute CD8 Count Absolute CD19 Count HIV DNA Qual (PCR) HIV-1 RNA PCR copies/ml HIV-1 RNA (PCR) log Miscellaneous Test Crossmatch 07/10/18 07/10/18 07/11/18 07:20 07:20 05:20 WBC RBC 1.94 L Hgb 6.1 L Hct 18.2 L* MCV MCHC RDW Plt Count 53 L Seg Neuts % (Manual) Lymphocytes % (Manual) Nucleated RBC % Seg Neutrophils # Man Abs Lymphs (Manual) Lymphocytes # (Manual) PT INR D-Dimer POC ABG pH POC ABG pCO2 POC ABG pO2 Sodium 152 H Potassium 5.1 H Chloride Carbon Dioxide 41 H* BUN 44 H Creatinine Glucose 144 H POC Glucose Hemoglobin A1c Calcium 7.9 L AST ALT C-Reactive Protein Total Protein Albumin Triglycerides 307 H Lipase 140 H Ur Specific Emmalena Urine WBC (Auto) Urine Creatinine Urine Total Protein Lymph Enumerat CD4/CD8 % CD3 Cells Absolute CD3 Count % CD4 Cells Absolute CD4 Count % CD8 Cells Absolute CD8 Count Absolute CD19 Count HIV DNA Qual (PCR) HIV-1 RNA PCR copies/ml HIV-1 RNA (PCR) log Miscellaneous Test Crossmatch 07/11/18 07/11/18 07/11/18 05:20 07:00 08:00 WBC RBC Hgb 6.2 L Hct 18.4 L* MCV MCHC RDW Plt Count Seg Neuts % (Manual) Lymphocytes % (Manual) Nucleated RBC % Seg Neutrophils # Man Abs Lymphs (Manual) Lymphocytes # (Manual) PT INR D-Dimer POC ABG pH POC ABG pCO2 POC ABG pO2 Sodium 146 H Potassium Chloride Carbon Dioxide 36 H BUN 62 H Creatinine 1.9 H D Glucose 137 H POC Glucose Hemoglobin A1c Calcium 7.6 L AST ALT C-Reactive Protein Total Protein Albumin Triglycerides Lipase Ur Specific Emmalena Urine WBC (Auto) Urine Creatinine Urine Total Protein Lymph Enumerat CD4/CD8 % CD3 Cells Absolute CD3 Count % CD4 Cells Absolute CD4 Count % CD8 Cells Absolute CD8 Count Absolute CD19 Count HIV DNA Qual (PCR) HIV-1 RNA PCR copies/ml HIV-1 RNA (PCR) log Miscellaneous Test Crossmatch See Detail Allied health notes reviewed: nursing
[2018-07-11] MEDS ORDERED: VERSED IV PRN (14:55)
[2018-07-11] MEDS: MIDAZOLAM 100 MG in NACL 0.9% 80 ML IV SCH (15:58)
--- NOTE | 2018-07-11 16:16 | XRay Report ---
PROCEDURE: XR CHEST 1V AP TECHNIQUE: Frontal portable view of the chest HISTORY: new ET tube inserted COMPARISONS: Chest x-ray dated July 09, 2018 FINDINGS: The tip of the endotracheal tube is at the inferior aspect of the clavicles. The tip of the esophagogastric tube is not included in the [id number] but is well below the level of the diaphragm. A PICC line catheter is demonstrated with the tip in the region of the superior vena cava. There continues to be a diffuse bilateral interstitial and airspace process similar in appearance to the previous study. There is a possible small right pleural fluid collection. The cardiac silhouette appears to be enlarged. The thoracic aorta and bony structures are unremarkable. IMPRESSION: 1. Tip of endotracheal tube at the inferior aspect of the clavicles. 2. Otherwise no significant change since previous study dated July 09, 2018 with persistent diffuse bilateral interstitial and airspace process and possible small right pleural fluid collection. This document is electronically signed by Christine Funes MD., July 11 2018 04:14:16 PM ET
[2018-07-11 17:02] LABS: Hematocrit 24.5 % (35.5-45.6); Hemoglobin 8.2 gm/dl (11.8-15.2)
[2018-07-11] MEDS: BENADRYL IV SCH (17:08)
[2018-07-11] MEDS: SOLU-Medrol IV SCH (17:08)
--- NOTE | 2018-07-11 17:18 | Progress Note ---
Assessment and Plan - Patient Problems (1) Acute kidney failure with tubular necrosis Current Visit: Yes Status: Acute Plan to address problem: Kidney injury acute tubular necrosis of multifactorial etiology secondary to contrast exposure, medications including voriconazole and hypotension. Kidney function worsening hopefully secondary to obstructive uropathy. Status post Muir catheter insertion. Monitor urine output and electrolytes and renal function. PHARMACY TO RENALLY DOSE ALL MEDICATIONS. AVOID EXPOSURE TO NEPHROTOXINS WHERE FEASIBLE. (2) Hypernatremia Current Visit: Yes Status: Acute Plan to address problem: Improving. Continue free water replacement and follow sodium. (3) Hyperkalemia Current Visit: Yes Status: Acute Plan to address problem: Potassium has improved. (4) Acute respiratory failure with hypoxia Current Visit: Yes Status: Acute Plan to address problem: Ventilator management by pulmonary (5) Anemia Current Visit: Yes Status: Acute Plan to address problem: Being managed by template cutter (6) AIDS (acquired immunodeficiency syndrome), CD4 <=200 Current Visit: Yes Status: Acute Plan to address problem: Continue management by infectious disease consultants (7) Bilateral pneumonia Current Visit: Yes Status: Acute Qualifiers: Pneumonia type: due to unspecified organism Lung location: unspecified part of lung Qualified Code(s): J18.9 - Pneumonia, unspecified organism Plan to address problem: Continue antibiotics per infectious disease human performance consultant Subjective Date of service: 07/11/18 Principal diagnosis: Acute Hypoxemic Resp Failure; AIDS / HIV positive; Severe Sepsis due to PNA Interval history: Patient seen lying in bed intubated on ventilator. Patient is not interacting. Events over the last 24 hours reviewed. Had Muir catheter inserted as patient was having urinary retention. Was not voiding and had 300-500 mL on straight Cath Objective - Exam Narrative Exam: Young male lying in bed intubated on ventilator HEENT: NCAT, ETT intact Neck: Supple, no venous distention CVS: S1S2 RRR with no murmur, rub or gallop Chest: Bilateral rhonchi Abdomen: Protuberant, soft, nontender, no organomegaly, bowel sounds are present Extremities: 1-2+ edema extremities Genitourinary deferred, muir catheter draining clear urine Skin warm and dry Neuro: Eyes open, not following commands - Vital Signs Vital signs: Vital Signs - 12hr 07/11/18 07/11/18 07/11/18 05:30 06:00 06:30 Temperature Pulse Rate 131 H 133 H 133 H Pulse Rate [ Bilateral] Pulse Rate [ 126 H From Monitor] Respiratory 40 H 34 H 39 H Rate Respiratory Rate [Bilateral ] Blood Pressure 134/52 123/45 125/49 O2 Sat by Pulse 83 L 94 95 Oximetry 07/11/18 07/11/18 07/11/18 07:00 07:30 08:00 Temperature 103.5 F H Pulse Rate 133 H 134 H 133 H Pulse Rate [ Bilateral] Pulse Rate [ 132 H From Monitor] Respiratory 29 H 31 H 29 H Rate Respiratory Rate [Bilateral ] Blood Pressure 132/50 132/48 126/44 O2 Sat by Pulse 95 94 95 Oximetry 07/11/18 07/11/18 07/11/18 08:30 08:53 09:00 Temperature Pulse Rate 133 H 133 H 129 H Pulse Rate [ 130 H Bilateral] Pulse Rate [ From Monitor] Respiratory 30 H 26 H Rate Respiratory 28 H Rate [Bilateral ] Blood Pressure 122/42 126/44 122/47 O2 Sat by Pulse 96 98 93 Oximetry 07/11/18 07/11/18 07/11/18 09:10 09:30 10:00 Temperature Pulse Rate 127 H 123 H Pulse Rate [ 122 H Bilateral] Pulse Rate [ From Monitor] Respiratory 26 H 28 H Rate Respiratory 32 H Rate [Bilateral ] Blood Pressure 116/43 120/43 O2 Sat by Pulse 95 95 Oximetry 07/11/18 07/11/18 07/11/18 10:12 10:30 11:00 Temperature 103.0 F H Pulse Rate 125 H 120 H Pulse Rate [ Bilateral] Pulse Rate [ From Monitor] Respiratory 28 H 27 H Rate Respiratory Rate [Bilateral ] Blood Pressure 118/49 112/53 O2 Sat by Pulse 96 96 Oximetry 07/11/18 07/11/18 07/11/18 11:30 11:45 12:00 Temperature 101.6 F H 101.5 F H Pulse Rate 121 H 121 H Pulse Rate [ Bilateral] Pulse Rate [ 121 H From Monitor] Respiratory 27 H 25 H Rate Respiratory Rate [Bilateral ] Blood Pressure 117/46 115/44 O2 Sat by Pulse 96 95 Oximetry 07/11/18 07/11/18 07/11/18 12:19 12:30 13:00 Temperature Pulse Rate 121 H 120 H 126 H Pulse Rate [ Bilateral] Pulse Rate [ From Monitor] Respiratory 21 21 Rate Respiratory Rate [Bilateral ] Blood Pressure 99/44 113/52 113/53 O2 Sat by Pulse 98 92 85 Oximetry 07/11/18 07/11/18 07/11/18 13:12 13:30 14:00 Temperature Pulse Rate 121 H 118 H Pulse Rate [ Bilateral] Pulse Rate [ From Monitor] Respiratory 30 H 31 H Rate Respiratory Rate [Bilateral ] Blood Pressure 113/55 107/46 O2 Sat by Pulse 95 94 92 Oximetry 07/11/18 07/11/18 07/11/18 14:30 14:45 14:46 Temperature Pulse Rate 123 H 121 H Pulse Rate [ 121 H Bilateral] Pulse Rate [ From Monitor] Respiratory 25 H Rate Respiratory 31 H Rate [Bilateral ] Blood Pressure 112/54 117/60 O2 Sat by Pulse 86 89 Oximetry 07/11/18 07/11/18 07/11/18 15:00 15:30 15:45 Temperature Pulse Rate 129 H 122 H 124 H Pulse Rate [ Bilateral] Pulse Rate [ From Monitor] Respiratory 22 31 H 31 H Rate Respiratory Rate [Bilateral ] Blood Pressure 112/56 115/43 108/41 O2 Sat by Pulse 90 97 96 Oximetry 07/11/18 07/11/18 07/11/18 16:00 16:16 16:30 Temperature 102.9 F H Pulse Rate 125 H 127 H 130 H Pulse Rate [ Bilateral] Pulse Rate [ 129 H From Monitor] Respiratory 31 H 32 H 33 H Rate Respiratory Rate [Bilateral ] Blood Pressure 119/43 119/43 114/43 O2 Sat by Pulse 96 98 96 Oximetry - Lab 07/11/18 16:00 07/11/18 05:20 Most recent lab results Calcium 7.6 mg/dL (8.4-10.2) L 07/11/18 05:20 Urine Creatinine 47.2 mg/dL (0.1-20.0) H 06/24/18 22:45 Urine Sodium 40 mmol/L 06/24/18 22:45 Urine Total Protein 25 mg/dL (5-11.8) H 06/24/18 22:45 Medications & Allergies - Medications Allergies/Adverse Reactions: Allergies No Known Allergies Allergy (Verified 06/19/18 06:10) Home Medications: Home Medications Medication Instructions Recorded Confirmed Last Taken Type ALBUTEROL Inhaler (OR & NICU) 2 puff IH QID PRN 06/19/18 06/19/18 Unknown History [Proair] Pantoprazole [Protonix] 40 mg PO QDAY 06/19/18 06/19/18 Unknown History levoFLOXacin [Levaquin TAB] 500 mg PO QDAY 06/19/18 06/19/18 Unknown History Active Medications: Generic Name Dose Route Start Last Admin Trade Name Freq PRN Reason Stop Dose Admin Acetaminophen 650 mg 06/19/18 06:30 07/11/18 17:07 Tylenol PO 650 mg Q4H PRN Administration Pain MILD(1-3)/Fever >100.5/[place] Albuterol/Ipratropium 1 ampul 06/26/18 14:00 07/11/18 14:44 Duoneb *Not For Prn Use* IH 1 ampul Q6HRT PEYTON Administration Lipase/Protease/Amylase 1 each 07/03/18 14:31 Pancreaze 10,500 Unit FEEDTUBE PRN PRN For Clogged Feeding Tube Atovaquone 750 mg 07/03/18 22:00 07/11/18 09:58 Mepron PO 750 mg BID PEYTON Administration Azithromycin 1,200 mg 06/25/18 11:00 07/09/18 10:59 Zithromax PO 1,200 mg Mo PEYTON Administration Dextrose 50 ml 07/02/18 15:00 D50w (25gm) Syringe IV PRN PRN Hypoglycemia Diphenhydramine HCl 50 mg 07/11/18 17:00 07/11/18 17:08 Benadryl IV 50 mg Q24H PEYTON Administration Fentanyl 50 mcg 06/19/18 06:00 06/30/18 21:56 Sublimaze IV 50 mcg Q10MIN PRN Administration ANALGESIA Hydrophilic Ointment 1 applic 06/19/18 06:00 07/11/18 10:55 Vaseline Lip Therapy TP 1 applic Q2HR PRN Administration Dry Lips Fentanyl Citrate 2,000 mcg in 100 mls @ 3.86 mls/hr 06/19/18 06:00 07/11/18 15:00 Fentanyl Drip Premix IV 5 mcg/kg/hr TITR PEYTON 19.301 mls/hr Titration Protocol 1 MCG/KG/HR Norepinephrine 4 mg in 250 mls @ 7.5 mls/hr 06/19/18 15:00 07/10/18 10:00 Levophed Drip 4 Mg/Ns 250 Ml IV 0 mcg/min TITR PEYTON 0 mls/hr Titration Protocol 2 MCG/MIN Propofol 1,000 mg in 100 mls @ 2.601 mls/hr 06/24/18 15:00 07/11/18 16:25 Diprivan 10 Mg/Ml IV 25 mcg/kg/min TITR PEYTON 13.005 mls/hr Titration Protocol 5 MCG/KG/MIN Dextrose 500 mls @ 5 mls/hr 06/25/18 08:56 06/28/18 11:07 D5w IV 5 mls/hr PRN PRN Administration FLUSH BEFORE AND AFTER AMPHO B Vasopressin 20 unit/ Sodium 101 mls @ 9.09 mls/hr 06/29/18 23:00 07/03/18 22:23 Chloride IV 0 units/min TITR PEYTON 0 mls/hr Titration Protocol 0.03 UNITS/MIN Ganciclovir Sodium 500 mg/ 250 mls @ 100 mls/hr 07/05/18 06:00 07/11/18 05:52 Sodium Chloride IV 100 mls/hr Q12HR@0600,1800 PEYTON Administration Dextrose 1,000 mls @ 70 mls/hr 07/08/18 13:00 07/11/18 05:46 D5w IV 70 mls/hr DIRECT PEYTON Administration Amphotericin B 450 mg/ 590 mls @ 250 mls/hr 07/10/18 18:00 07/10/18 18:28 Dextrose IV 250 mls/hr Q24H PEYTON Administration Protocol Metronidazole 500 mg in 100 mls @ 100 mls/hr 07/10/18 17:00 07/11/18 13:16 Flagyl 500 Mg/100 Ml IV 100 mls/hr Q8HR PEYTON Administration Protocol Vancomycin HCl 1,500 mg/ 530 mls @ 333.333 mls/hr 07/12/18 10:00 Sodium Chloride IV Q24H PEYTON Cefepime HCl 2 gm in 100 mls @ 200 mls/hr 07/12/18 10:00 Maxipime/Ns 2 Gm/100 Ml IV Q24HR PEYTON Protocol Midazolam HCl 100 mg/ Sodium 100 mls @ 2 mls/hr 07/11/18 15:00 07/11/18 17:00 Chloride IV 3 mg/hr TITR PEYTON 3 mls/hr Titration Protocol 2 MG/HR Insulin Glargine 8 units 07/07/18 12:11 07/10/18 22:43 Lantus SUB-Q 8 units QHS PEYTON Administration Insulin Human Lispro 0 unit 06/20/18 13:00 07/11/18 12:22 Humalog SUB-Q 3 unit Q6HR PEYTON Administration Protocol Lansoprazole 30 mg 07/03/18 11:00 07/11/18 09:58 Prevacid Solutab FEEDTUBE 30 mg QDAY PEYTON Administration Methylprednisolone Sodium Succinate 40 mg 07/11/18 17:00 07/11/18 17:08 Solu-Medrol IV 40 mg Q24H PEYTON Administration Midazolam HCl 2 mg 07/11/18 14:55 07/11/18 16:45 Versed IV 2 mg Q10MIN PRN Administration Sedation Multi-Ingred Cream/Lotion/Oil/Oint 1 applic 06/19/18 06:00 07/11/18 10:55 Artificial Tears Ophth Oint OU 1 applic Q4HR PRN Administration Dry Eye(s) Ondansetron HCl 4 mg 06/19/18 06:30 06/30/18 21:55 Zofran IV 4 mg Q8H PRN Administration Nausea And Vomiting Phenylephrine HCl 2 spray 06/24/18 06:07 07/09/18 14:48 Thompson-Synephrine NS 2 spray Q4H PRN Administration Congestion Scopolamine 1 each 07/10/18 13:00 07/10/18 14:09 Transderm-Scop TD 1 each Q3D PEYTON Administration Simple Syrup 15 ml 07/03/18 14:31 Simple Syrup FEEDTUBE PRN PRN Hypoglycemia Simple Syrup 30 ml 07/03/18 14:31 Simple Syrup FEEDTUBE PRN PRN Hypoglycemia Sodium Bicarbonate 325 mg 07/03/18 15:14 Sodium Bicarbonate FEEDTUBE PRN PRN For Clogged Feeding Tube Sodium Chloride 10 ml 06/19/18 10:00 07/11/18 09:59 Sodium Chloride Flush Syringe 10 Ml IV 10 ml BID PEYTON Administration Sodium Chloride 10 ml 06/19/18 06:30 Sodium Chloride Flush Syringe 10 Ml IV PRN PRN LINE FLUSH
[2018-07-11] MEDS: ABELCET IV SCH (17:23)
[2018-07-11] MEDS: D5W IV SCH (17:23)
[2018-07-11] MEDS: LANTUS SUB-Q SCH (21:55)
[2018-07-12] MEDS: DUONEB *Not for PRN Use IH SCH ×4 (01:10→19:24)
[2018-07-12] MEDS: DIPRIVAN 10 MG/ML 1,000 MG/100 ML BOTTLE IV SCH (03:37)
[2018-07-12] MEDS: TYLENOL PO PRN ×2 (05:02→08:46)
[2018-07-12] MEDS: FLAGYL 500 MG/100 ML 500 MG/100 ML BAG IV SCH ×3 (05:02→21:45)
[2018-07-12] MEDS: CYTOVENE 500 MG in NACL 0.9% 250ML 250 ML IV SCH ×2 (05:03→17:36)
[2018-07-12] MEDS: fentaNYL DRIP Premix 2,000 MCG/100 ML BAG IV SCH ×4 (05:19→22:21)
[2018-07-12 05:37] LABS: Hematocrit 22.8 % (35.5-45.6); Hemoglobin 7.6 gm/dl (11.8-15.2); Mean Corpuscular HGB Conc 33 % (32-34); Mean Corpuscular Volume 91 fl (84-94); Platelet Count 48 K/mm3 (140-440); Red Blood Count 2.51 M/mm3 (3.65-5.03); Red Cell Distribution Width 15.4 % (13.2-15.2)
[2018-07-12 06:04] LABS: BUN/Creatinine Ratio 44; Blood Urea Nitrogen 53 mg/dL (9-20); Calcium 7.4 mg/dL (8.4-10.2); Hemolysis Index 17
[2018-07-12] MEDS: HumaLOG SUB-Q SCH ×3 (06:25→17:37)
[2018-07-12] MEDS: MIDAZOLAM 100 MG in NACL 0.9% 80 ML IV SCH (06:25)
--- NOTE | 2018-07-12 09:38 | Progress Note ---
Assessment and Plan Acute Hypoxemic Respiratory Failure on MVS ARDS AIDS / HIV positive Severe Sepsis with septic shock due to Pneumonia Severe respiratory acidosis Lower extremity DVT Acute renal failure Thrombocytopenia Hematuria, improving Anemia requiring blood transfusions Severe thrombocytopenia Medical decision making -Transfuse to keep HgB>7g/dL -Continue all current care, however prognosis remains dismal -Furosemide as tolerated by hemodynamics, renal function -Continue to hold all anticoagulation for now -Target glucose of 140mg- 180mg/dL -VAP bundle addressed - Continue supplemental oxygen to keep sats > 90% -Wean PEEP and FIO2 as tolerated -ARDS net protocol with lung protective strategies Permissive hypercapnia for now. -OK for bicarbonate if pH <7.1 -Fluid management should be restrictive to allow for oxygenation and ventilation - continue bronchodilators per protocol -Continue steroids -Continue empiric and targeted anti-infective's per ID recs -Aspiration precautions, HOB>40 -Accucheck and monitor for hypoglycemia - Continue to monitor for for drug-drug interaction - Daily SATs and SBT per protocol once his ventilatory needs are minimal - Stress ulcer prophylaxis -Anticoagulation, continue to hold Eliquis. -Critical care bundles addressed CONDITION: CRITICAL PROGNOSIS: POOR CODE STATUS: DNAR The high probability of a clinically significant, sudden or life-threatening deterioration of the [cardiac, respiratory] system(s) required my full and dir ect attention, intervention and personal management. The aggregate critical care time was [35] minutes without overlap. Time includes spent on; [x] Data Review and interpretation [x] Patient assessment and monitoring of vital signs [x] Documentation Subjective Date of service: 07/12/18 Principal diagnosis: Acute Hypoxemic Resp Failure; AIDS / HIV positive; Severe Sepsis due to PNA Interval history: Patient is seen today for: Acute Hypoxemic Respiratory Failure on MVS; AIDS / HIV positive; Severe Sepsis due to Pneumonia; Hyponatremia; Severe metabolic acidosis Seen and examined at bedside; 24hour events reviewed; nursing and respiratory care staff consulted ; on fentanyl , midazolam and propofol; remains on MVS requiring PEEP 18 and FIO2 100%; no seizures reported; no emesis or overt aspiration, Continues to have ventilatory demands, high grade fevers, multiple antibioitcs and anti fungal therapy. Remains unresponsive Objective Vital Signs - 12hr 07/11/18 07/11/18 07/11/18 21:46 21:50 22:00 Temperature Pulse Rate 129 H 131 H Pulse Rate [ 130 H Bilateral] Respiratory 31 H 30 H Rate Respiratory 30 H Rate [Bilateral ] Blood Pressure 114/46 110/47 O2 Sat by Pulse 96 95 Oximetry 07/11/18 07/11/18 07/11/18 22:16 22:30 22:46 Temperature Pulse Rate 131 H 130 H 130 H Pulse Rate [ Bilateral] Respiratory 30 H 30 H 30 H Rate Respiratory Rate [Bilateral ] Blood Pressure 110/47 114/46 114/46 O2 Sat by Pulse 97 95 97 Oximetry 07/11/18 07/11/18 07/11/18 23:00 23:15 23:30 Temperature Pulse Rate 130 H 131 H 131 H Pulse Rate [ Bilateral] Respiratory 30 H 30 H 30 H Rate Respiratory Rate [Bilateral ] Blood Pressure 113/44 114/46 117/45 O2 Sat by Pulse 96 97 95 Oximetry 07/11/18 07/11/18 07/11/18 23:43 23:45 23:55 Temperature Pulse Rate 130 H 131 H 132 H Pulse Rate [ Bilateral] Respiratory 30 H 30 H 30 H Rate Respiratory Rate [Bilateral ] Blood Pressure 117/45 113/44 113/44 O2 Sat by Pulse 97 97 97 Oximetry 07/12/18 07/12/18 07/12/18 00:00 00:03 00:15 Temperature 100.9 F H Pulse Rate 132 H 132 H 133 H Pulse Rate [ Bilateral] Respiratory 30 H 30 H Rate Respiratory Rate [Bilateral ] Blood Pressure 118/43 118/43 117/45 O2 Sat by Pulse 93 97 95 Oximetry 07/12/18 07/12/18 07/12/18 00:30 00:45 01:00 Temperature Pulse Rate 131 H 130 H 134 H Pulse Rate [ Bilateral] Respiratory 30 H 30 H 32 H Rate Respiratory Rate [Bilateral ] Blood Pressure 119/42 118/43 119/44 O2 Sat by Pulse 95 95 90 Oximetry 07/12/18 07/12/18 07/12/18 01:12 01:15 01:22 Temperature Pulse Rate 134 H Pulse Rate [ 133 H 133 H Bilateral] Respiratory 31 H Rate Respiratory 30 H 30 H Rate [Bilateral ] Blood Pressure 119/42 O2 Sat by Pulse 90 Oximetry 07/12/18 07/12/18 07/12/18 01:30 01:45 02:00 Temperature Pulse Rate 133 H 136 H 137 H Pulse Rate [ Bilateral] Respiratory 30 H 30 H 31 H Rate Respiratory Rate [Bilateral ] Blood Pressure 117/41 119/44 117/41 O2 Sat by Pulse 92 93 93 Oximetry 07/12/18 07/12/18 07/12/18 02:15 02:30 02:45 Temperature Pulse Rate 138 H 140 H 140 H Pulse Rate [ Bilateral] Respiratory 31 H 30 H 31 H Rate Respiratory Rate [Bilateral ] Blood Pressure 120/44 117/43 117/43 O2 Sat by Pulse 94 93 93 Oximetry 07/12/18 07/12/18 07/12/18 03:00 03:15 03:30 Temperature Pulse Rate 141 H 140 H 141 H Pulse Rate [ Bilateral] Respiratory 31 H 30 H 30 H Rate Respiratory Rate [Bilateral ] Blood Pressure 116/43 116/43 116/43 O2 Sat by Pulse 92 93 92 Oximetry 07/12/18 07/12/18 07/12/18 03:45 03:58 04:00 Temperature 101.1 F H Pulse Rate 141 H 136 H 142 H Pulse Rate [ Bilateral] Respiratory 30 H 30 H Rate Respiratory Rate [Bilateral ] Blood Pressure 116/43 117/43 121/44 O2 Sat by Pulse 92 95 92 Oximetry 07/12/18 07/12/18 07/12/18 04:15 04:30 04:45 Temperature Pulse Rate 142 H 142 H 140 H Pulse Rate [ Bilateral] Respiratory 30 H 31 H 32 H Rate Respiratory Rate [Bilateral ] Blood Pressure 121/44 113/43 113/43 O2 Sat by Pulse 92 91 90 Oximetry 07/12/18 07/12/18 07/12/18 05:00 05:15 05:30 Temperature Pulse Rate 140 H 137 H 137 H Pulse Rate [ Bilateral] Respiratory 33 H 30 H 32 H Rate Respiratory Rate [Bilateral ] Blood Pressure 117/43 117/43 119/39 O2 Sat by Pulse 90 90 94 Oximetry 07/12/18 07/12/18 07/12/18 05:45 06:00 06:15 Temperature Pulse Rate 138 H 139 H 138 H Pulse Rate [ Bilateral] Respiratory 35 H 36 H 35 H Rate Respiratory Rate [Bilateral ] Blood Pressure 119/39 115/41 115/41 O2 Sat by Pulse 95 94 95 Oximetry 07/12/18 07/12/18 07/12/18 06:30 06:45 07:00 Temperature Pulse Rate 140 H 134 H 136 H Pulse Rate [ Bilateral] Respiratory 24 31 H 32 H Rate Respiratory Rate [Bilateral ] Blood Pressure 110/41 110/41 110/41 O2 Sat by Pulse 92 96 97 Oximetry 07/12/18 07/12/18 07/12/18 07:15 07:30 07:45 Temperature Pulse Rate 135 H 135 H 132 H Pulse Rate [ Bilateral] Respiratory 31 H 31 H 31 H Rate Respiratory Rate [Bilateral ] Blood Pressure 109/41 117/40 117/40 O2 Sat by Pulse 97 95 97 Oximetry 07/12/18 08:00 Temperature 103.1 F H Pulse Rate 131 H Pulse Rate [ Bilateral] Respiratory 30 H Rate Respiratory Rate [Bilateral ] Blood Pressure 113/38 O2 Sat by Pulse 95 Oximetry Constitutional: comatose, appears uncomfortable, other (young HM normocephalic and atraumatic with moderately increased respiratory effort at rest) Eyes: non-icteric ENT: oropharynx moist, other (ETT 23 cm SATISH) Neck: supple, no lymphadenopathy, no JVD, other (no thyromegaly) Effort: mildly labored Ascultation: Bilateral: diminished breath sounds, rhonchi Percussion: Bilateral: not dull Cardiovascular: regular rate and rhythm Gastrointestinal: normoactive bowel sounds, soft, non-tender, non-distended Integumentary: rash Extremities: no cyanosis, pink and warm, pulses normal, no ischemia or petechiae, anasarca Neurologic: pupils equal and round, unable to assess Psychiatric: other (unable to assess) CBC and BMP: 07/12/18 05:19 07/12/18 05:19 ABG, PT/INR, D-dimer: ABG POC ABG pH 7.218 (7.35-7.45) L 07/11/18 15:35 POC ABG pCO2 100.4 (35-45) H 07/08/18 04:05 POC ABG pO2 146 (80-105) H 07/11/18 15:35 POC ABG HCO3 41.0 (22-26 mml/L) 07/11/18 15:35 POC ABG Total CO2 44 (23-27mmol/L) 07/11/18 15:35 POC ABG O2 Sat 98 07/11/18 15:35 PT/INR, D-dimer PT 14.3 Sec. (12.2-14.9) 07/01/18 09:11 INR 1.05 (0.87-1.13) 07/01/18 09:11 D-Dimer 2387.14 ng/mlDDU (0-234) H 07/01/18 10:00 Abnormal lab findings: Abnormal Labs 06/19/18 06/19/18 06/19/18 03:31 07:11 07:42 WBC RBC Hgb Hct MCV MCHC RDW Plt Count Seg Neuts % (Manual) Lymphocytes % (Manual) Nucleated RBC % Seg Neutrophils # Man Abs Lymphs (Manual) 409 L Lymphocytes # (Manual) PT INR D-Dimer POC ABG pH 6.974 L POC ABG pCO2 22.0 L 83.4 H POC ABG pO2 28 L 122 H Sodium Potassium Chloride Carbon Dioxide BUN Creatinine Glucose POC Glucose Hemoglobin A1c Calcium AST ALT C-Reactive Protein Total Protein Albumin Triglycerides Lipase Ur Specific [place] Urine WBC (Auto) Urine Creatinine Urine Total Protein Vancomycin Trough Lymph Enumerat CD4/CD8 0.05 L % CD3 Cells 45 L Absolute CD3 Count 185 L % CD4 Cells 2 L Absolute CD4 Count 10 L % CD8 Cells 43 H Absolute CD8 Count 167 L Absolute CD19 Count 79 L HIV DNA Qual (PCR) HIV-1 RNA PCR copies/ml HIV-1 RNA (PCR) log Miscellaneous Test Crossmatch 06/19/18 06/19/18 06/19/18 08:07 08:16 09:20 WBC RBC Hgb Hct MCV MCHC RDW Plt Count Seg Neuts % (Manual) Lymphocytes % (Manual) Nucleated RBC % Seg Neutrophils # Man Abs Lymphs (Manual) Lymphocytes # (Manual) PT INR D-Dimer POC ABG pH 6.996 L POC ABG pCO2 82.4 H POC ABG pO2 Sodium Potassium Chloride Carbon Dioxide BUN Creatinine Glucose POC Glucose Hemoglobin A1c Calcium AST ALT C-Reactive Protein Total Protein Albumin Triglycerides Lipase Ur Specific [place] 1.060 H Urine WBC (Auto) 8.0 H Urine Creatinine Urine Total Protein Vancomycin Trough Lymph Enumerat CD4/CD8 % CD3 Cells Absolute CD3 Count % CD4 Cells Absolute CD4 Count % CD8 Cells Absolute CD8 Count Absolute CD19 Count HIV DNA Qual (PCR) Detected H HIV-1 RNA PCR copies/ml HIV-1 RNA (PCR) log Miscellaneous Test Crossmatch 06/19/18 06/19/18 06/19/18 09:49 11:15 15:16 WBC RBC Hgb Hct MCV MCHC RDW Plt Count Seg Neuts % (Manual) Lymphocytes % (Manual) Nucleated RBC % Seg Neutrophils # Man Abs Lymphs (Manual) Lymphocytes # (Manual) PT INR D-Dimer POC ABG pH 7.198 L 7.206 L POC ABG pCO2 POC ABG pO2 75 L Sodium Potassium Chloride Carbon Dioxide BUN Creatinine Glucose POC Glucose Hemoglobin A1c Calcium AST ALT C-Reactive Protein Total Protein Albumin Triglycerides Lipase Ur Specific [place] Urine WBC (Auto) Urine Creatinine Urine Total Protein Vancomycin Trough Lymph Enumerat CD4/CD8 % CD3 Cells Absolute CD3 Count % CD4 Cells Absolute CD4 Count % CD8 Cells Absolute CD8 Count Absolute CD19 Count HIV DNA Qual (PCR) HIV-1 RNA PCR copies/ml [id number] H HIV-1 RNA (PCR) log 6.11 H Miscellaneous Test Crossmatch 06/19/18 06/19/18 06/19/18 18:54 Unknown Unknown WBC 12.9 H RBC Hgb Hct MCV MCHC RDW Plt Count Seg Neuts % (Manual) Lymphocytes % (Manual) 5.0 L Nucleated RBC % Seg Neutrophils # Man Abs Lymphs (Manual) Lymphocytes # (Manual) 0.6 L PT 15.9 H INR 1.19 H D-Dimer 8449.09 H POC ABG pH POC ABG pCO2 POC ABG pO2 Sodium Potassium Chloride Carbon Dioxide BUN Creatinine Glucose POC Glucose 196 H Hemoglobin A1c Calcium AST ALT C-Reactive Protein Total Protein Albumin Triglycerides Lipase Ur Specific [place] Urine WBC (Auto) Urine Creatinine Urine Total Protein Vancomycin Trough Lymph Enumerat CD4/CD8 % CD3 Cells Absolute CD3 Count % CD4 Cells Absolute CD4 Count % CD8 Cells Absolute CD8 Count Absolute CD19 Count HIV DNA Qual (PCR) HIV-1 RNA PCR copies/ml HIV-1 RNA (PCR) log Miscellaneous Test Crossmatch 06/19/18 06/19/18 06/20/18 Unknown Unknown 04:33 WBC RBC Hgb Hct MCV MCHC RDW Plt Count Seg Neuts % (Manual) Lymphocytes % (Manual) Nucleated RBC % Seg Neutrophils # Man Abs Lymphs (Manual) Lymphocytes # (Manual) PT INR D-Dimer POC ABG pH 7.249 L POC ABG pCO2 POC ABG pO2 118 H Sodium 129 L Potassium Chloride 90.7 L Carbon Dioxide 17 L BUN Creatinine 0.6 L Glucose 199 H POC Glucose Hemoglobin A1c Calcium 8.1 L AST 53 H ALT C-Reactive Protein Total Protein 6.0 L Albumin 2.8 L Triglycerides Lipase Ur Specific [place] Urine WBC (Auto) Urine Creatinine Urine Total Protein Vancomycin Trough Lymph Enumerat CD4/CD8 % CD3 Cells Absolute CD3 Count % CD4 Cells Absolute CD4 Count % CD8 Cells Absolute CD8 Count Absolute CD19 Count HIV DNA Qual (PCR) HIV-1 RNA PCR copies/ml HIV-1 RNA (PCR) log Miscellaneous Test Crossmatch 06/20/18 06/20/18 06/20/18 08:13 08:13 12:59 WBC 11.8 H RBC 3.25 L Hgb 9.8 L D Hct 30.4 L D MCV MCHC RDW Plt Count Seg Neuts % (Manual) 99.0 H Lymphocytes % (Manual) 1.0 L Nucleated RBC % Seg Neutrophils # Man 11.7 H Abs Lymphs (Manual) Lymphocytes # (Manual) 0.1 L PT INR D-Dimer POC ABG pH POC ABG pCO2 POC ABG pO2 Sodium Potassium Chloride Carbon Dioxide 19 L BUN Creatinine Glucose 223 H POC Glucose 174 H Hemoglobin A1c Calcium 6.6 L D AST 1240 H ALT 836 H C-Reactive Protein Total Protein 4.9 L Albumin 2.1 L Triglycerides Lipase Ur Specific [place] Urine WBC (Auto) Urine Creatinine Urine Total Protein Vancomycin Trough Lymph Enumerat CD4/CD8 % CD3 Cells Absolute CD3 Count % CD4 Cells Absolute CD4 Count % CD8 Cells Absolute CD8 Count Absolute CD19 Count HIV DNA Qual (PCR) HIV-1 RNA PCR copies/ml HIV-1 RNA (PCR) log Miscellaneous Test Crossmatch 06/20/18 06/20/18 06/21/18 17:42 23:44 04:08 WBC RBC Hgb Hct MCV MCHC RDW Plt Count Seg Neuts % (Manual) Lymphocytes % (Manual) Nucleated RBC % Seg Neutrophils # Man Abs Lymphs (Manual) Lymphocytes # (Manual) PT INR D-Dimer POC ABG pH 7.309 L POC ABG pCO2 POC ABG pO2 Sodium Potassium Chloride Carbon Dioxide BUN Creatinine Glucose POC Glucose 177 H 195 H Hemoglobin A1c Calcium AST ALT C-Reactive Protein Total Protein Albumin Triglycerides Lipase Ur Specific [place] Urine WBC (Auto) Urine Creatinine Urine Total Protein Vancomycin Trough Lymph Enumerat CD4/CD8 % CD3 Cells Absolute CD3 Count % CD4 Cells Absolute CD4 Count % CD8 Cells Absolute CD8 Count Absolute CD19 Count HIV DNA Qual (PCR) HIV-1 RNA PCR copies/ml HIV-1 RNA (PCR) log Miscellaneous Test Crossmatch 06/21/18 06/21/1819 04:19 04:19 05:27 WBC 13.8 H RBC 3.02 L Hgb 9.2 L Hct 28.0 L MCV MCHC RDW Plt Count Seg Neuts % (Manual) Lymphocytes % (Manual) Nucleated RBC % Seg Neutrophils # Man Abs Lymphs (Manual) Lymphocytes # (Manual) PT INR D-Dimer POC ABG pH POC ABG pCO2 POC ABG pO2 Sodium 135 L Potassium Chloride Carbon Dioxide 21 L BUN Creatinine 0.7 L Glucose 161 H POC Glucose 187 H Hemoglobin A1c Calcium 7.2 L AST 390 H ALT 622 H C-Reactive Protein Total Protein 5.3 L Albumin 2.4 L Triglycerides Lipase Ur Specific [place] Urine WBC (Auto) Urine Creatinine Urine Total Protein Vancomycin Trough Lymph Enumerat CD4/CD8 % CD3 Cells Absolute CD3 Count % CD4 Cells Absolute CD4 Count % CD8 Cells Absolute CD8 Count Absolute CD19 Count HIV DNA Qual (PCR) HIV-1 RNA PCR copies/ml HIV-1 RNA (PCR) log Miscellaneous Test Crossmatch 06/21/18 06/21/18 06/21/18 11:33 12:32 17:45 WBC RBC Hgb Hct MCV MCHC RDW Plt Count Seg Neuts % (Manual) Lymphocytes % (Manual) Nucleated RBC % Seg Neutrophils # Man Abs Lymphs (Manual) Lymphocytes # (Manual) PT INR D-Dimer POC ABG pH POC ABG pCO2 POC ABG pO2 Sodium Potassium Chloride Carbon Dioxide BUN Creatinine Glucose POC Glucose 147 H 172 H Hemoglobin A1c Calcium AST ALT C-Reactive Protein Total Protein Albumin Triglycerides Lipase Ur Specific [place] Urine WBC (Auto) Urine Creatinine Urine Total Protein Vancomycin Trough Lymph Enumerat CD4/CD8 % CD3 Cells Absolute CD3 Count % CD4 Cells Absolute CD4 Count % CD8 Cells Absolute CD8 Count Absolute CD19 Count HIV DNA Qual (PCR) HIV-1 RNA PCR copies/ml HIV-1 RNA (PCR) log Miscellaneous Test see below H Crossmatch 06/21/18 06/22/18 06/22/18 23:25 04:47 04:47 WBC 11.5 H RBC 2.93 L Hgb 9.0 L Hct 26.5 L MCV MCHC RDW Plt Count Seg Neuts % (Manual) Lymphocytes % (Manual) Nucleated RBC % Seg Neutrophils # Man Abs Lymphs (Manual) Lymphocytes # (Manual) PT INR D-Dimer POC ABG pH POC ABG pCO2 POC ABG pO2 Sodium Potassium Chloride Carbon Dioxide BUN 22 H Creatinine Glucose 201 H POC Glucose 152 H Hemoglobin A1c Calcium 7.8 L AST 129 H ALT 416 H C-Reactive Protein Total Protein 5.3 L Albumin 2.4 L Triglycerides Lipase Ur Specific [place] Urine WBC (Auto) Urine Creatinine Urine Total Protein Vancomycin Trough Lymph Enumerat CD4/CD8 % CD3 Cells Absolute CD3 Count % CD4 Cells Absolute CD4 Count % CD8 Cells Absolute CD8 Count Absolute CD19 Count HIV DNA Qual (PCR) HIV-1 RNA PCR copies/ml HIV-1 RNA (PCR) log Miscellaneous Test Crossmatch 06/22/18 06/22/18 06/22/18 05:23 11:43 17:45 WBC RBC Hgb Hct MCV MCHC RDW Plt Count Seg Neuts % (Manual) Lymphocytes % (Manual) Nucleated RBC % Seg Neutrophils # Man Abs Lymphs (Manual) Lymphocytes # (Manual) PT INR D-Dimer POC ABG pH POC ABG pCO2 POC ABG pO2 Sodium Potassium Chloride Carbon Dioxide BUN Creatinine Glucose POC Glucose 170 H 175 H 176 H Hemoglobin A1c Calcium AST ALT C-Reactive Protein Total Protein Albumin Triglycerides Lipase Ur Specific [place] Urine WBC (Auto) Urine Creatinine Urine Total Protein Vancomycin Trough Lymph Enumerat CD4/CD8 % CD3 Cells Absolute CD3 Count % CD4 Cells Absolute CD4 Count % CD8 Cells Absolute CD8 Count Absolute CD19 Count HIV DNA Qual (PCR) HIV-1 RNA PCR copies/ml HIV-1 RNA (PCR) log Miscellaneous Test Crossmatch 06/23/18 06/23/18 06/23/18 00:24 05:06 05:11 WBC 11.2 H RBC 2.78 L Hgb 8.6 L Hct 25.3 L MCV MCHC RDW Plt Count Seg Neuts % (Manual) Lymphocytes % (Manual) Nucleated RBC % Seg Neutrophils # Man Abs Lymphs (Manual) Lymphocytes # (Manual) PT INR D-Dimer POC ABG pH POC ABG pCO2 POC ABG pO2 Sodium Potassium Chloride Carbon Dioxide BUN Creatinine Glucose POC Glucose 178 H 182 H Hemoglobin A1c Calcium AST ALT C-Reactive Protein Total Protein Albumin Triglycerides Lipase Ur Specific [place] Urine WBC (Auto) Urine Creatinine Urine Total Protein Vancomycin Trough Lymph Enumerat CD4/CD8 % CD3 Cells Absolute CD3 Count % CD4 Cells Absolute CD4 Count % CD8 Cells Absolute CD8 Count Absolute CD19 Count HIV DNA Qual (PCR) HIV-1 RNA PCR copies/ml HIV-1 RNA (PCR) log Miscellaneous Test Crossmatch 06/23/18 06/23/18 06/23/18 05:11 05:51 12:21 WBC RBC Hgb Hct MCV MCHC RDW Plt Count Seg Neuts % (Manual) Lymphocytes % (Manual) Nucleated RBC % Seg Neutrophils # Man Abs Lymphs (Manual) Lymphocytes # (Manual) PT INR D-Dimer POC ABG pH POC ABG pCO2 POC ABG pO2 69 L Sodium Potassium Chloride Carbon Dioxide BUN 34 H Creatinine 1.7 H D Glucose 191 H POC Glucose 181 H Hemoglobin A1c Calcium 7.5 L AST 63 H ALT 297 H C-Reactive Protein Total Protein 5.3 L Albumin 2.4 L Triglycerides Lipase Ur Specific [place] Urine WBC (Auto) Urine Creatinine Urine Total Protein Vancomycin Trough Lymph Enumerat CD4/CD8 % CD3 Cells Absolute CD3 Count % CD4 Cells Absolute CD4 Count % CD8 Cells Absolute CD8 Count Absolute CD19 Count HIV DNA Qual (PCR) HIV-1 RNA PCR copies/ml HIV-1 RNA (PCR) log Miscellaneous Test Crossmatch 06/23/18 06/23/18 06/23/18 13:57 17:00 18:40 WBC RBC Hgb Hct MCV MCHC RDW Plt Count Seg Neuts % (Manual) Lymphocytes % (Manual) Nucleated RBC % Seg Neutrophils # Man Abs Lymphs (Manual) Lymphocytes # (Manual) PT INR D-Dimer POC ABG pH POC ABG pCO2 POC ABG pO2 Sodium Potassium Chloride Carbon Dioxide BUN 38 H Creatinine 1.8 H Glucose POC Glucose 196 H Hemoglobin A1c Calcium AST ALT C-Reactive Protein 1.60 H Total Protein Albumin Triglycerides Lipase Ur Specific [place] Urine WBC (Auto) Urine Creatinine Urine Total Protein Vancomycin Trough Lymph Enumerat CD4/CD8 % CD3 Cells Absolute CD3 Count % CD4 Cells Absolute CD4 Count % CD8 Cells Absolute CD8 Count Absolute CD19 Count HIV DNA Qual (PCR) HIV-1 RNA PCR copies/ml HIV-1 RNA (PCR) log Miscellaneous Test Crossmatch 06/23/18 06/23/18 06/24/18 21:16 23:22 04:12 WBC RBC 2.89 L Hgb 8.8 L Hct 26.9 L MCV MCHC RDW Plt Count Seg Neuts % (Manual) Lymphocytes % (Manual) Nucleated RBC % Seg Neutrophils # Man Abs Lymphs (Manual) Lymphocytes # (Manual) PT INR D-Dimer POC ABG pH 7.311 L POC ABG pCO2 47.4 H POC ABG pO2 Sodium Potassium Chloride Carbon Dioxide BUN Creatinine Glucose POC Glucose 165 H Hemoglobin A1c Calcium AST ALT C-Reactive Protein Total Protein Albumin Triglycerides Lipase Ur Specific [place] Urine WBC (Auto) Urine Creatinine Urine Total Protein Vancomycin Trough Lymph Enumerat CD4/CD8 % CD3 Cells Absolute CD3 Count % CD4 Cells Absolute CD4 Count % CD8 Cells Absolute CD8 Count Absolute CD19 Count HIV DNA Qual (PCR) HIV-1 RNA PCR copies/ml HIV-1 RNA (PCR) log Miscellaneous Test Crossmatch 06/24/18 06/24/18 06/24/18 04:12 04:46 05:24 WBC RBC Hgb Hct MCV MCHC RDW Plt Count Seg Neuts % (Manual) Lymphocytes % (Manual) Nucleated RBC % Seg Neutrophils # Man Abs Lymphs (Manual) Lymphocytes # (Manual) PT INR D-Dimer POC ABG pH 7.250 L POC ABG pCO2 55.8 H POC ABG pO2 Sodium Potassium 5.4 H Chloride Carbon Dioxide BUN 44 H Creatinine 2.2 H Glucose 206 H POC Glucose 183 H Hemoglobin A1c Calcium 7.5 L AST ALT C-Reactive Protein Total Protein Albumin Triglycerides Lipase Ur Specific [place] Urine WBC (Auto) Urine Creatinine Urine Total Protein Vancomycin Trough Lymph Enumerat CD4/CD8 % CD3 Cells Absolute CD3 Count % CD4 Cells Absolute CD4 Count % CD8 Cells Absolute CD8 Count Absolute CD19 Count HIV DNA Qual (PCR) HIV-1 RNA PCR copies/ml HIV-1 RNA (PCR) log Miscellaneous Test Crossmatch 06/24/18 06/24/18 06/24/18 11:14 16:40 17:16 WBC RBC Hgb Hct MCV MCHC RDW Plt Count Seg Neuts % (Manual) Lymphocytes % (Manual) Nucleated RBC % Seg Neutrophils # Man Abs Lymphs (Manual) Lymphocytes # (Manual) PT INR D-Dimer POC ABG pH 7.067 L POC ABG pCO2 91.7 H POC ABG pO2 134 H Sodium Potassium Chloride Carbon Dioxide BUN Creatinine Glucose POC Glucose 151 H 195 H Hemoglobin A1c Calcium AST ALT C-Reactive Protein Total Protein Albumin Triglycerides Lipase Ur Specific [place] Urine WBC (Auto) Urine Creatinine Urine Total Protein Vancomycin Trough Lymph Enumerat CD4/CD8 % CD3 Cells Absolute CD3 Count % CD4 Cells Absolute CD4 Count % CD8 Cells Absolute CD8 Count Absolute CD19 Count HIV DNA Qual (PCR) HIV-1 RNA PCR copies/ml HIV-1 RNA (PCR) log Miscellaneous Test Crossmatch 06/24/18 06/24/18 06/24/18 18:03 22:45 22:45 WBC RBC Hgb Hct MCV MCHC RDW Plt Count Seg Neuts % (Manual) Lymphocytes % (Manual) Nucleated RBC % Seg Neutrophils # Man Abs Lymphs (Manual) Lymphocytes # (Manual) PT INR D-Dimer POC ABG pH 7.234 L POC ABG pCO2 59.9 H POC ABG pO2 121 H Sodium Potassium Chloride Carbon Dioxide BUN Creatinine Glucose POC Glucose Hemoglobin A1c Calcium AST ALT C-Reactive Protein Total Protein Albumin Triglycerides Lipase Ur Specific [place] Urine WBC (Auto) 9.0 H Urine Creatinine 47.2 H Urine Total Protein 25 H Vancomycin Trough Lymph Enumerat CD4/CD8 % CD3 Cells Absolute CD3 Count % CD4 Cells Absolute CD4 Count % CD8 Cells Absolute CD8 Count Absolute CD19 Count HIV DNA Qual (PCR) HIV-1 RNA PCR copies/ml HIV-1 RNA (PCR) log Miscellaneous Test Crossmatch 06/24/18 06/24/18 06/25/18 Unknown 23:59 04:36 WBC RBC Hgb Hct MCV MCHC RDW Plt Count Seg Neuts % (Manual) Lymphocytes % (Manual) Nucleated RBC % Seg Neutrophils # Man Abs Lymphs (Manual) Lymphocytes # (Manual) PT 15.6 H INR 1.17 H D-Dimer POC ABG pH 7.200 L POC ABG pCO2 65.3 H POC ABG pO2 Sodium Potassium Chloride Carbon Dioxide BUN Creatinine Glucose POC Glucose 233 H Hemoglobin A1c Calcium AST ALT C-Reactive Protein Total Protein Albumin Triglycerides Lipase Ur Specific [place] Urine WBC (Auto) Urine Creatinine Urine Total Protein Vancomycin Trough Lymph Enumerat CD4/CD8 % CD3 Cells Absolute CD3 Count % CD4 Cells Absolute CD4 Count % CD8 Cells Absolute CD8 Count Absolute CD19 Count HIV DNA Qual (PCR) HIV-1 RNA PCR copies/ml HIV-1 RNA (PCR) log Miscellaneous Test Crossmatch 06/25/18 06/25/18 06/25/18 05:29 11:12 11:40 WBC RBC 2.67 L Hgb 8.5 L Hct 25.6 L MCV 96 H MCHC RDW 16.0 H Plt Count Seg Neuts % (Manual) Lymphocytes % (Manual) Nucleated RBC % Seg Neutrophils # Man Abs Lymphs (Manual) Lymphocytes # (Manual) PT INR D-Dimer POC ABG pH POC ABG pCO2 POC ABG pO2 Sodium Potassium Chloride Carbon Dioxide BUN Creatinine Glucose POC Glucose 212 H 244 H Hemoglobin A1c Calcium AST ALT C-Reactive Protein Total Protein Albumin Triglycerides Lipase Ur Specific [place] Urine WBC (Auto) Urine Creatinine Urine Total Protein Vancomycin Trough Lymph Enumerat CD4/CD8 % CD3 Cells Absolute CD3 Count % CD4 Cells Absolute CD4 Count % CD8 Cells Absolute CD8 Count Absolute CD19 Count HIV DNA Qual (PCR) HIV-1 RNA PCR copies/ml HIV-1 RNA (PCR) log Miscellaneous Test Crossmatch 06/25/18 06/25/18 06/25/18 11:40 17:18 18:08 WBC RBC Hgb Hct MCV MCHC RDW Plt Count Seg Neuts % (Manual) Lymphocytes % (Manual) Nucleated RBC % Seg Neutrophils # Man Abs Lymphs (Manual) Lymphocytes # (Manual) PT INR D-Dimer POC ABG pH 7.206 L POC ABG pCO2 68.1 H POC ABG pO2 Sodium Potassium 5.8 H Chloride Carbon Dioxide BUN 48 H Creatinine 2.1 H Glucose 293 H POC Glucose 264 H Hemoglobin A1c Calcium 7.5 L AST ALT C-Reactive Protein Total Protein Albumin Triglycerides Lipase Ur Specific [place] Urine WBC (Auto) Urine Creatinine Urine Total Protein Vancomycin Trough Lymph Enumerat CD4/CD8 % CD3 Cells Absolute CD3 Count % CD4 Cells Absolute CD4 Count % CD8 Cells Absolute CD8 Count Absolute CD19 Count HIV DNA Qual (PCR) HIV-1 RNA PCR copies/ml HIV-1 RNA (PCR) log Miscellaneous Test Crossmatch 06/25/18 06/25/18 06/26/18 21:20 23:59 05:10 WBC RBC Hgb Hct MCV MCHC RDW Plt Count Seg Neuts % (Manual) Lymphocytes % (Manual) Nucleated RBC % Seg Neutrophils # Man Abs Lymphs (Manual) Lymphocytes # (Manual) PT INR D-Dimer POC ABG pH 7.220 L POC ABG pCO2 65.0 H POC ABG pO2 71 L Sodium Potassium Chloride Carbon Dioxide BUN Creatinine Glucose POC Glucose 231 H 259 H Hemoglobin A1c Calcium AST ALT C-Reactive Protein Total Protein Albumin Triglycerides Lipase Ur Specific [place] Urine WBC (Auto) Urine Creatinine Urine Total Protein Vancomycin Trough Lymph Enumerat CD4/CD8 % CD3 Cells Absolute CD3 Count % CD4 Cells Absolute CD4 Count % CD8 Cells Absolute CD8 Count Absolute CD19 Count HIV DNA Qual (PCR) HIV-1 RNA PCR copies/ml HIV-1 RNA (PCR) log Miscellaneous Test Crossmatch 0206/26/18 06/26/18 05:29 07:25 07:25 WBC 12.0 H RBC 2.69 L Hgb 8.2 L Hct 25.5 L MCV 95 H MCHC RDW 15.7 H Plt Count Seg Neuts % (Manual) Lymphocytes % (Manual) Nucleated RBC % Seg Neutrophils # Man Abs Lymphs (Manual) Lymphocytes # (Manual) PT INR D-Dimer POC ABG pH 7.240 L POC ABG pCO2 67.6 H POC ABG pO2 106 H Sodium Potassium 5.2 H Chloride Carbon Dioxide BUN 58 H Creatinine 1.9 H Glucose 219 H POC Glucose Hemoglobin A1c Calcium 7.9 L AST ALT C-Reactive Protein Total Protein Albumin Triglycerides Lipase Ur Specific [place] Urine WBC (Auto) Urine Creatinine Urine Total Protein Vancomycin Trough Lymph Enumerat CD4/CD8 % CD3 Cells Absolute CD3 Count % CD4 Cells Absolute CD4 Count % CD8 Cells Absolute CD8 Count Absolute CD19 Count HIV DNA Qual (PCR) HIV-1 RNA PCR copies/ml HIV-1 RNA (PCR) log Miscellaneous Test Crossmatch 06/26/18 06/26/18 06/26/18 07:25 12:49 17:42 WBC RBC Hgb Hct MCV MCHC RDW Plt Count Seg Neuts % (Manual) Lymphocytes % (Manual) Nucleated RBC % Seg Neutrophils # Man Abs Lymphs (Manual) Lymphocytes # (Manual) PT INR D-Dimer POC ABG pH 7.178 L POC ABG pCO2 73.6 H POC ABG pO2 77 L Sodium Potassium Chloride Carbon Dioxide BUN Creatinine Glucose POC Glucose 276 H Hemoglobin A1c Calcium AST ALT C-Reactive Protein Total Protein Albumin Triglycerides 174 H Lipase Ur Specific [place] Urine WBC (Auto) Urine Creatinine Urine Total Protein Vancomycin Trough Lymph Enumerat CD4/CD8 % CD3 Cells Absolute CD3 Count % CD4 Cells Absolute CD4 Count % CD8 Cells Absolute CD8 Count Absolute CD19 Count HIV DNA Qual (PCR) HIV-1 RNA PCR copies/ml HIV-1 RNA (PCR) log Miscellaneous Test Crossmatch 06/26/18 06/26/18 06/26/18 18:25 21:24 23:22 WBC RBC Hgb Hct MCV MCHC RDW Plt Count Seg Neuts % (Manual) Lymphocytes % (Manual) Nucleated RBC % Seg Neutrophils # Man Abs Lymphs (Manual) Lymphocytes # (Manual) PT INR D-Dimer POC ABG pH 7.152 L POC ABG pCO2 80.6 H POC ABG pO2 Sodium Potassium Chloride Carbon Dioxide BUN Creatinine Glucose POC Glucose 304 H 282 H Hemoglobin A1c Calcium AST ALT C-Reactive Protein Total Protein Albumin Triglycerides Lipase Ur Specific [place] Urine WBC (Auto) Urine Creatinine Urine Total Protein Vancomycin Trough Lymph Enumerat CD4/CD8 % CD3 Cells Absolute CD3 Count % CD4 Cells Absolute CD4 Count % CD8 Cells Absolute CD8 Count Absolute CD19 Count HIV DNA Qual (PCR) HIV-1 RNA PCR copies/ml HIV-1 RNA (PCR) log Miscellaneous Test Crossmatch 06/27/18 06/27/18 06/27/18 04:05 05:15 05:15 WBC RBC Hgb Hct MCV MCHC RDW Plt Count Seg Neuts % (Manual) Lymphocytes % (Manual) Nucleated RBC % Seg Neutrophils # Man Abs Lymphs (Manual) Lymphocytes # (Manual) PT INR D-Dimer POC ABG pH 7.266 L POC ABG pCO2 62.8 H POC ABG pO2 Sodium Potassium 5.5 H Chloride Carbon Dioxide BUN 73 H Creatinine 2.1 H Glucose 211 H POC Glucose Hemoglobin A1c Calcium 7.7 L AST ALT C-Reactive Protein Total Protein Albumin Triglycerides Lipase Ur Specific [place] Urine WBC (Auto) Urine Creatinine Urine Total Protein Vancomycin Trough Lymph Enumerat CD4/CD8 % CD3 Cells Absolute CD3 Count % CD4 Cells Absolute CD4 Count % CD8 Cells Absolute CD8 Count Absolute CD19 Count HIV DNA Qual (PCR) HIV-1 RNA PCR copies/ml HIV-1 RNA (PCR) log Miscellaneous Test Flexitest 1 H Crossmatch 06/27/18 06/27/18 06/27/18 05:15 05:52 13:10 WBC RBC 2.41 L Hgb 7.6 L Hct 22.4 L MCV MCHC RDW Plt Count Seg Neuts % (Manual) Lymphocytes % (Manual) Nucleated RBC % Seg Neutrophils # Man Abs Lymphs (Manual) Lymphocytes # (Manual) PT INR D-Dimer POC ABG pH POC ABG pCO2 POC ABG pO2 Sodium Potassium Chloride Carbon Dioxide BUN Creatinine Glucose POC Glucose 198 H 238 H Hemoglobin A1c Calcium AST ALT C-Reactive Protein Total Protein Albumin Triglycerides Lipase Ur Specific [place] Urine WBC (Auto) Urine Creatinine Urine Total Protein Vancomycin Trough Lymph Enumerat CD4/CD8 % CD3 Cells Absolute CD3 Count % CD4 Cells Absolute CD4 Count % CD8 Cells Absolute CD8 Count Absolute CD19 Count HIV DNA Qual (PCR) HIV-1 RNA PCR copies/ml HIV-1 RNA (PCR) log Miscellaneous Test Crossmatch 06/27/18 06/27/18 06/27/18 16:12 17:51 23:22 WBC RBC Hgb Hct MCV MCHC RDW Plt Count Seg Neuts % (Manual) Lymphocytes % (Manual) Nucleated RBC % Seg Neutrophils # Man Abs Lymphs (Manual) Lymphocytes # (Manual) PT INR D-Dimer POC ABG pH POC ABG pCO2 POC ABG pO2 Sodium Potassium Chloride Carbon Dioxide BUN Creatinine Glucose POC Glucose 174 H 162 H 171 H Hemoglobin A1c Calcium AST ALT C-Reactive Protein Total Protein Albumin Triglycerides Lipase Ur Specific [place] Urine WBC (Auto) Urine Creatinine Urine Total Protein Vancomycin Trough Lymph Enumerat CD4/CD8 % CD3 Cells Absolute CD3 Count % CD4 Cells Absolute CD4 Count % CD8 Cells Absolute CD8 Count Absolute CD19 Count HIV DNA Qual (PCR) HIV-1 RNA PCR copies/ml HIV-1 RNA (PCR) log Miscellaneous Test Crossmatch 06/28/18 06/28/18 06/28/18 04:36 04:54 05:10 WBC RBC Hgb Hct MCV MCHC RDW Plt Count Seg Neuts % (Manual) Lymphocytes % (Manual) Nucleated RBC % Seg Neutrophils # Man Abs Lymphs (Manual) Lymphocytes # (Manual) PT INR D-Dimer POC ABG pH 7.257 L POC ABG pCO2 68.8 H POC ABG pO2 Sodium Potassium Chloride Carbon Dioxide BUN 93 H Creatinine 2.4 H Glucose 186 H POC Glucose 193 H Hemoglobin A1c Calcium 8.3 L AST ALT C-Reactive Protein Total Protein Albumin Triglycerides Lipase Ur Specific [place] Urine WBC (Auto) Urine Creatinine Urine Total Protein Vancomycin Trough Lymph Enumerat CD4/CD8 % CD3 Cells Absolute CD3 Count % CD4 Cells Absolute CD4 Count % CD8 Cells Absolute CD8 Count Absolute CD19 Count HIV DNA Qual (PCR) HIV-1 RNA PCR copies/ml HIV-1 RNA (PCR) log Miscellaneous Test Crossmatch 06/28/18 06/28/18 06/28/18 12:15 17:43 18:26 WBC RBC Hgb Hct MCV MCHC RDW Plt Count Seg Neuts % (Manual) Lymphocytes % (Manual) Nucleated RBC % Seg Neutrophils # Man Abs Lymphs (Manual) Lymphocytes # (Manual) PT INR D-Dimer POC ABG pH 7.123 L POC ABG pCO2 82.7 H POC ABG pO2 Sodium Potassium Chloride Carbon Dioxide BUN Creatinine Glucose POC Glucose 154 H 194 H Hemoglobin A1c Calcium AST ALT C-Reactive Protein Total Protein Albumin Triglycerides Lipase Ur Specific [place] Urine WBC (Auto) Urine Creatinine Urine Total Protein Vancomycin Trough Lymph Enumerat CD4/CD8 % CD3 Cells Absolute CD3 Count % CD4 Cells Absolute CD4 Count % CD8 Cells Absolute CD8 Count Absolute CD19 Count HIV DNA Qual (PCR) HIV-1 RNA PCR copies/ml HIV-1 RNA (PCR) log Miscellaneous Test Crossmatch 06/28/18 06/29/18 06/29/18 22:08 00:12 04:38 WBC RBC Hgb Hct MCV MCHC RDW Plt Count Seg Neuts % (Manual) Lymphocytes % (Manual) Nucleated RBC % Seg Neutrophils # Man Abs Lymphs (Manual) Lymphocytes # (Manual) PT INR D-Dimer POC ABG pH 7.172 L 7.158 L POC ABG pCO2 80.4 H 76.6 H POC ABG pO2 143 H Sodium Potassium Chloride Carbon Dioxide BUN Creatinine Glucose POC Glucose 202 H Hemoglobin A1c Calcium AST ALT C-Reactive Protein Total Protein Albumin Triglycerides Lipase Ur Specific [place] Urine WBC (Auto) Urine Creatinine Urine Total Protein Vancomycin Trough Lymph Enumerat CD4/CD8 % CD3 Cells Absolute CD3 Count % CD4 Cells Absolute CD4 Count % CD8 Cells Absolute CD8 Count Absolute CD19 Count HIV DNA Qual (PCR) HIV-1 RNA PCR copies/ml HIV-1 RNA (PCR) log Miscellaneous Test Crossmatch 06/29/18 06/29/18 06/29/18 05:15 05:15 05:32 WBC 12.3 H RBC 1.93 L Hgb 5.9 L* Hct 18.2 L* MCV 95 H MCHC RDW Plt Count 127 L Seg Neuts % (Manual) Lymphocytes % (Manual) Nucleated RBC % Seg Neutrophils # Man Abs Lymphs (Manual) Lymphocytes # (Manual) PT INR D-Dimer POC ABG pH POC ABG pCO2 POC ABG pO2 Sodium 136 L Potassium 5.9 H Chloride 94.3 L Carbon Dioxide BUN 139 H Creatinine 4.2 H D Glucose 157 H POC Glucose 150 H Hemoglobin A1c Calcium 8.2 L AST ALT C-Reactive Protein Total Protein Albumin Triglycerides Lipase Ur Specific [place] Urine WBC (Auto) Urine Creatinine Urine Total Protein Vancomycin Trough Lymph Enumerat CD4/CD8 % CD3 Cells Absolute CD3 Count % CD4 Cells Absolute CD4 Count % CD8 Cells Absolute CD8 Count Absolute CD19 Count HIV DNA Qual (PCR) HIV-1 RNA PCR copies/ml HIV-1 RNA (PCR) log Miscellaneous Test Crossmatch 06/29/18 06/29/18 06/29/18 08:07 09:50 11:55 WBC RBC Hgb 6.0 L Hct 18.4 L* MCV MCHC RDW Plt Count Seg Neuts % (Manual) Lymphocytes % (Manual) Nucleated RBC % Seg Neutrophils # Man Abs Lymphs (Manual) Lymphocytes # (Manual) PT INR D-Dimer POC ABG pH POC ABG pCO2 POC ABG pO2 Sodium Potassium Chloride Carbon Dioxide BUN Creatinine Glucose POC Glucose 236 H Hemoglobin A1c Calcium AST ALT C-Reactive Protein Total Protein Albumin Triglycerides Lipase Ur Specific [place] Urine WBC (Auto) Urine Creatinine Urine Total Protein Vancomycin Trough Lymph Enumerat CD4/CD8 % CD3 Cells Absolute CD3 Count % CD4 Cells Absolute CD4 Count % CD8 Cells Absolute CD8 Count Absolute CD19 Count HIV DNA Qual (PCR) HIV-1 RNA PCR copies/ml HIV-1 RNA (PCR) log Miscellaneous Test Crossmatch See Detail 06/29/18 06/30/18 06/30/18 18:29 00:08 04:47 WBC RBC Hgb Hct MCV MCHC RDW Plt Count Seg Neuts % (Manual) Lymphocytes % (Manual) Nucleated RBC % Seg Neutrophils # Man Abs Lymphs (Manual) Lymphocytes # (Manual) PT INR D-Dimer POC ABG pH 7.182 L POC ABG pCO2 67.7 H POC ABG pO2 Sodium Potassium Chloride Carbon Dioxide BUN Creatinine Glucose POC Glucose 171 H 159 H Hemoglobin A1c Calcium AST ALT C-Reactive Protein Total Protein Albumin Triglycerides Lipase Ur Specific [place] Urine WBC (Auto) Urine Creatinine Urine Total Protein Vancomycin Trough Lymph Enumerat CD4/CD8 % CD3 Cells Absolute CD3 Count % CD4 Cells Absolute CD4 Count % CD8 Cells Absolute CD8 Count Absolute CD19 Count HIV DNA Qual (PCR) HIV-1 RNA PCR copies/ml HIV-1 RNA (PCR) log Miscellaneous Test Crossmatch 06/30/18 06/30/18 06/30/18 05:07 06:00 12:43 WBC 18.2 H RBC 2.43 L Hgb 7.4 L Hct 22.0 L MCV MCHC RDW 15.3 H Plt Count 111 L Seg Neuts % (Manual) Lymphocytes % (Manual) Nucleated RBC % Seg Neutrophils # Man Abs Lymphs (Manual) Lymphocytes # (Manual) PT INR D-Dimer POC ABG pH POC ABG pCO2 POC ABG pO2 Sodium Potassium Chloride Carbon Dioxide BUN Creatinine Glucose POC Glucose 162 H 153 H Hemoglobin A1c Calcium AST ALT C-Reactive Protein Total Protein Albumin Triglycerides Lipase Ur Specific [place] Urine WBC (Auto) Urine Creatinine Urine Total Protein Vancomycin Trough Lymph Enumerat CD4/CD8 % CD3 Cells Absolute CD3 Count % CD4 Cells Absolute CD4 Count % CD8 Cells Absolute CD8 Count Absolute CD19 Count HIV DNA Qual (PCR) HIV-1 RNA PCR copies/ml HIV-1 RNA (PCR) log Miscellaneous Test Crossmatch 06/30/18 06/30/18 07/01/18 18:07 Unknown 00:06 WBC RBC Hgb Hct MCV MCHC RDW Plt Count Seg Neuts % (Manual) Lymphocytes % (Manual) Nucleated RBC % Seg Neutrophils # Man Abs Lymphs (Manual) Lymphocytes # (Manual) PT INR D-Dimer POC ABG pH POC ABG pCO2 POC ABG pO2 Sodium Potassium 5.9 H Chloride 95.5 L Carbon Dioxide BUN 164 H Creatinine 5.2 H Glucose 151 H POC Glucose 183 H 208 H Hemoglobin A1c Calcium 7.6 L AST ALT C-Reactive Protein Total Protein Albumin Triglycerides 223 H Lipase Ur Specific [place] Urine WBC (Auto) Urine Creatinine Urine Total Protein Vancomycin Trough Lymph Enumerat CD4/CD8 % CD3 Cells Absolute CD3 Count % CD4 Cells Absolute CD4 Count % CD8 Cells Absolute CD8 Count Absolute CD19 Count HIV DNA Qual (PCR) HIV-1 RNA PCR copies/ml HIV-1 RNA (PCR) log Miscellaneous Test Crossmatch 07/01/18 07/01/18 07/01/18 04:47 05:43 06:00 WBC RBC Hgb Hct MCV MCHC RDW Plt Count Seg Neuts % (Manual) Lymphocytes % (Manual) Nucleated RBC % Seg Neutrophils # Man Abs Lymphs (Manual) Lymphocytes # (Manual) PT INR D-Dimer POC ABG pH 7.060 L POC ABG pCO2 121.0 H POC ABG pO2 Sodium Potassium 5.8 H Chloride 94.1 L Carbon Dioxide BUN 144 H Creatinine 3.1 H Glucose 208 H POC Glucose 214 H Hemoglobin A1c Calcium 6.7 L AST ALT C-Reactive Protein Total Protein Albumin Triglycerides Lipase Ur Specific [place] Urine WBC (Auto) Urine Creatinine Urine Total Protein Vancomycin Trough Lymph Enumerat CD4/CD8 % CD3 Cells Absolute CD3 Count % CD4 Cells Absolute CD4 Count % CD8 Cells Absolute CD8 Count Absolute CD19 Count HIV DNA Qual (PCR) HIV-1 RNA PCR copies/ml HIV-1 RNA (PCR) log Miscellaneous Test Crossmatch 07/01/18 07/01/18 07/01/18 06:00 06:52 10:00 WBC 17.9 H RBC 2.14 L Hgb 6.5 L 6.6 L Hct 20.0 L 20.5 L MCV MCHC RDW 15.9 H Plt Count 94 L Seg Neuts % (Manual) Lymphocytes % (Manual) Nucleated RBC % Seg Neutrophils # Man Abs Lymphs (Manual) Lymphocytes # (Manual) PT INR D-Dimer 2387.14 H POC ABG pH POC ABG pCO2 POC ABG pO2 Sodium Potassium Chloride Carbon Dioxide BUN Creatinine Glucose POC Glucose Hemoglobin A1c Calcium AST ALT C-Reactive Protein Total Protein Albumin Triglycerides Lipase Ur Specific [place] Urine WBC (Auto) Urine Creatinine Urine Total Protein Vancomycin Trough Lymph Enumerat CD4/CD8 % CD3 Cells Absolute CD3 Count % CD4 Cells Absolute CD4 Count % CD8 Cells Absolute CD8 Count Absolute CD19 Count HIV DNA Qual (PCR) HIV-1 RNA PCR copies/ml HIV-1 RNA (PCR) log Miscellaneous Test Crossmatch 07/01/18 07/01/18 07/01/18 11:11 11:41 18:38 WBC RBC Hgb Hct MCV MCHC RDW Plt Count Seg Neuts % (Manual) Lymphocytes % (Manual) Nucleated RBC % Seg Neutrophils # Man Abs Lymphs (Manual) Lymphocytes # (Manual) PT INR D-Dimer POC ABG pH 7.151 L 7.168 L POC ABG pCO2 100.4 H 109.4 H POC ABG pO2 151 H 199 H Sodium Potassium Chloride Carbon Dioxide BUN Creatinine Glucose POC Glucose 213 H Hemoglobin A1c Calcium AST ALT C-Reactive Protein Total Protein Albumin Triglycerides Lipase Ur Specific [place] Urine WBC (Auto) Urine Creatinine Urine Total Protein Vancomycin Trough Lymph Enumerat CD4/CD8 % CD3 Cells Absolute CD3 Count % CD4 Cells Absolute CD4 Count % CD8 Cells Absolute CD8 Count Absolute CD19 Count HIV DNA Qual (PCR) HIV-1 RNA PCR copies/ml HIV-1 RNA (PCR) log Miscellaneous Test Crossmatch 07/01/18 07/02/18 07/02/18 23:40 04:32 04:32 WBC 14.8 H RBC 2.68 L Hgb 8.1 L Hct 23.8 L MCV MCHC RDW Plt Count 81 L Seg Neuts % (Manual) Lymphocytes % (Manual) Nucleated RBC % Seg Neutrophils # Man Abs Lymphs (Manual) Lymphocytes # (Manual) PT INR D-Dimer POC ABG pH POC ABG pCO2 POC ABG pO2 Sodium 151 H D Potassium 3.1 L D Chloride Carbon Dioxide 39 H D BUN 108 H Creatinine 1.8 H Glucose 44 L POC Glucose < 40 L Hemoglobin A1c Calcium 6.6 L AST ALT C-Reactive Protein Total Protein Albumin Triglycerides Lipase Ur Specific [place] Urine WBC (Auto) Urine Creatinine Urine Total Protein Vancomycin Trough Lymph Enumerat CD4/CD8 % CD3 Cells Absolute CD3 Count % CD4 Cells Absolute CD4 Count % CD8 Cells Absolute CD8 Count Absolute CD19 Count HIV DNA Qual (PCR) HIV-1 RNA PCR copies/ml HIV-1 RNA (PCR) log Miscellaneous Test Crossmatch 07/02/18 07/02/18 07/02/18 05:00 05:12 11:54 WBC RBC Hgb Hct MCV MCHC RDW Plt Count Seg Neuts % (Manual) Lymphocytes % (Manual) Nucleated RBC % Seg Neutrophils # Man Abs Lymphs (Manual) Lymphocytes # (Manual) PT INR D-Dimer POC ABG pH 7.319 L POC ABG pCO2 89.8 H POC ABG pO2 119 H Sodium Potassium Chloride Carbon Dioxide BUN Creatinine Glucose POC Glucose < 40 L < 40 L Hemoglobin A1c Calcium AST ALT C-Reactive Protein Total Protein Albumin Triglycerides Lipase Ur Specific [place] Urine WBC (Auto) Urine Creatinine Urine Total Protein Vancomycin Trough Lymph Enumerat CD4/CD8 % CD3 Cells Absolute CD3 Count % CD4 Cells Absolute CD4 Count % CD8 Cells Absolute CD8 Count Absolute CD19 Count HIV DNA Qual (PCR) HIV-1 RNA PCR copies/ml HIV-1 RNA (PCR) log Miscellaneous Test Crossmatch 07/02/18 07/03/18 07/03/18 14:09 00:17 04:28 WBC RBC Hgb Hct MCV MCHC RDW Plt Count Seg Neuts % (Manual) Lymphocytes % (Manual) Nucleated RBC % Seg Neutrophils # Man Abs Lymphs (Manual) Lymphocytes # (Manual) PT INR D-Dimer POC ABG pH 7.267 L POC ABG pCO2 93.3 H POC ABG pO2 69 L Sodium Potassium Chloride Carbon Dioxide BUN Creatinine Glucose POC Glucose 53 L 69 L Hemoglobin A1c Calcium AST ALT C-Reactive Protein Total Protein Albumin Triglycerides Lipase Ur Specific [place] Urine WBC (Auto) Urine Creatinine Urine Total Protein Vancomycin Trough Lymph Enumerat CD4/CD8 % CD3 Cells Absolute CD3 Count % CD4 Cells Absolute CD4 Count % CD8 Cells Absolute CD8 Count Absolute CD19 Count HIV DNA Qual (PCR) HIV-1 RNA PCR copies/ml HIV-1 RNA (PCR) log Miscellaneous Test Crossmatch 07/03/18 07/03/18 07/03/18 05:00 05:00 05:16 WBC RBC 2.23 L Hgb 7.0 L Hct 20.3 L MCV MCHC RDW Plt Count 81 L Seg Neuts % (Manual) Lymphocytes % (Manual) Nucleated RBC % Seg Neutrophils # Man Abs Lymphs (Manual) Lymphocytes # (Manual) PT INR D-Dimer POC ABG pH POC ABG pCO2 POC ABG pO2 Sodium 155 H Potassium 3.3 L Chloride Carbon Dioxide 40 H BUN 94 H Creatinine 1.7 H Glucose 115 H POC Glucose 113 H Hemoglobin A1c Calcium 6.9 L AST ALT C-Reactive Protein Total Protein Albumin Triglycerides Lipase Ur Specific [place] Urine WBC (Auto) Urine Creatinine Urine Total Protein Vancomycin Trough Lymph Enumerat CD4/CD8 % CD3 Cells Absolute CD3 Count % CD4 Cells Absolute CD4 Count % CD8 Cells Absolute CD8 Count Absolute CD19 Count HIV DNA Qual (PCR) HIV-1 RNA PCR copies/ml HIV-1 RNA (PCR) log Miscellaneous Test Crossmatch 07/03/18 07/03/18 07/03/18 10:24 11:12 17:52 WBC RBC Hgb Hct MCV MCHC RDW Plt Count Seg Neuts % (Manual) Lymphocytes % (Manual) Nucleated RBC % Seg Neutrophils # Man Abs Lymphs (Manual) Lymphocytes # (Manual) PT INR D-Dimer POC ABG pH POC ABG pCO2 POC ABG pO2 Sodium Potassium Chloride Carbon Dioxide BUN Creatinine Glucose POC Glucose 125 H 167 H Hemoglobin A1c Calcium AST ALT C-Reactive Protein Total Protein Albumin Triglycerides Lipase Ur Specific [place] Urine WBC (Auto) Urine Creatinine Urine Total Protein Vancomycin Trough Lymph Enumerat CD4/CD8 % CD3 Cells Absolute CD3 Count % CD4 Cells Absolute CD4 Count % CD8 Cells Absolute CD8 Count Absolute CD19 Count HIV DNA Qual (PCR) HIV-1 RNA PCR copies/ml HIV-1 RNA (PCR) log Miscellaneous Test Crossmatch See Detail 07/03/18 07/03/18 07/04/18 19:15 23:43 03:57 WBC RBC Hgb 7.8 L Hct 23.8 L MCV MCHC RDW Plt Count Seg Neuts % (Manual) Lymphocytes % (Manual) Nucleated RBC % Seg Neutrophils # Man Abs Lymphs (Manual) Lymphocytes # (Manual) PT INR D-Dimer POC ABG pH 7.229 L POC ABG pCO2 99.8 H POC ABG pO2 Sodium Potassium Chloride Carbon Dioxide BUN Creatinine Glucose POC Glucose 176 H Hemoglobin A1c Calcium AST ALT C-Reactive Protein Total Protein Albumin Triglycerides Lipase Ur Specific [place] Urine WBC (Auto) Urine Creatinine Urine Total Protein Vancomycin Trough Lymph Enumerat CD4/CD8 % CD3 Cells Absolute CD3 Count % CD4 Cells Absolute CD4 Count % CD8 Cells Absolute CD8 Count Absolute CD19 Count HIV DNA Qual (PCR) HIV-1 RNA PCR copies/ml HIV-1 RNA (PCR) log Miscellaneous Test Crossmatch 07/04/18 07/04/18 07/04/18 06:06 12:42 17:49 WBC RBC Hgb Hct MCV MCHC RDW Plt Count Seg Neuts % (Manual) Lymphocytes % (Manual) Nucleated RBC % Seg Neutrophils # Man Abs Lymphs (Manual) Lymphocytes # (Manual) PT INR D-Dimer POC ABG pH POC ABG pCO2 POC ABG pO2 Sodium Potassium Chloride Carbon Dioxide BUN Creatinine Glucose POC Glucose 168 H 130 H 169 H Hemoglobin A1c Calcium AST ALT C-Reactive Protein Total Protein Albumin Triglycerides Lipase Ur Specific [place] Urine WBC (Auto) Urine Creatinine Urine Total Protein Vancomycin Trough Lymph Enumerat CD4/CD8 % CD3 Cells Absolute CD3 Count % CD4 Cells Absolute CD4 Count % CD8 Cells Absolute CD8 Count Absolute CD19 Count HIV DNA Qual (PCR) HIV-1 RNA PCR copies/ml HIV-1 RNA (PCR) log Miscellaneous Test Crossmatch 07/04/18 07/04/18 07/04/18 23:12 Unknown Unknown WBC 12.7 H RBC 2.57 L Hgb 7.7 L Hct 23.9 L MCV MCHC RDW 15.3 H Plt Count 68 L Seg Neuts % (Manual) Lymphocytes % (Manual) Nucleated RBC % Seg Neutrophils # Man Abs Lymphs (Manual) Lymphocytes # (Manual) PT INR D-Dimer POC ABG pH POC ABG pCO2 POC ABG pO2 Sodium 154 H Potassium Chloride Carbon Dioxide 41 H* BUN 85 H Creatinine 1.7 H Glucose 130 H POC Glucose 162 H Hemoglobin A1c Calcium 7.6 L AST ALT C-Reactive Protein Total Protein Albumin Triglycerides 250 H Lipase Ur Specific [place] Urine WBC (Auto) Urine Creatinine Urine Total Protein Vancomycin Trough Lymph Enumerat CD4/CD8 % CD3 Cells Absolute CD3 Count % CD4 Cells Absolute CD4 Count % CD8 Cells Absolute CD8 Count Absolute CD19 Count HIV DNA Qual (PCR) HIV-1 RNA PCR copies/ml HIV-1 RNA (PCR) log Miscellaneous Test Crossmatch 07/05/18 07/05/18 07/05/18 05:42 05:46 12:45 WBC RBC Hgb Hct MCV MCHC RDW Plt Count Seg Neuts % (Manual) Lymphocytes % (Manual) Nucleated RBC % Seg Neutrophils # Man Abs Lymphs (Manual) Lymphocytes # (Manual) PT INR D-Dimer POC ABG pH 7.240 L POC ABG pCO2 97.9 H POC ABG pO2 71 L Sodium Potassium Chloride Carbon Dioxide BUN Creatinine Glucose POC Glucose 278 H 268 H Hemoglobin A1c Calcium AST ALT C-Reactive Protein Total Protein Albumin Triglycerides Lipase Ur Specific [place] Urine WBC (Auto) Urine Creatinine Urine Total Protein Vancomycin Trough Lymph Enumerat CD4/CD8 % CD3 Cells Absolute CD3 Count % CD4 Cells Absolute CD4 Count % CD8 Cells Absolute CD8 Count Absolute CD19 Count HIV DNA Qual (PCR) HIV-1 RNA PCR copies/ml HIV-1 RNA (PCR) log Miscellaneous Test Crossmatch 07/05/18 07/05/18 07/05/18 16:22 17:43 17:54 WBC RBC Hgb Hct MCV MCHC RDW Plt Count Seg Neuts % (Manual) Lymphocytes % (Manual) Nucleated RBC % Seg Neutrophils # Man Abs Lymphs (Manual) Lymphocytes # (Manual) PT INR D-Dimer POC ABG pH 7.094 L 7.112 L POC ABG pCO2 129.6 H 125.4 H POC ABG pO2 181 H 69 L Sodium Potassium Chloride Carbon Dioxide BUN Creatinine Glucose POC Glucose 221 H Hemoglobin A1c Calcium AST ALT C-Reactive Protein Total Protein Albumin Triglycerides Lipase Ur Specific [place] Urine WBC (Auto) Urine Creatinine Urine Total Protein Vancomycin Trough Lymph Enumerat CD4/CD8 % CD3 Cells Absolute CD3 Count % CD4 Cells Absolute CD4 Count % CD8 Cells Absolute CD8 Count Absolute CD19 Count HIV DNA Qual (PCR) HIV-1 RNA PCR copies/ml HIV-1 RNA (PCR) log Miscellaneous Test Crossmatch 07/05/18 07/05/18 07/06/18 20:15 23:18 05:20 WBC RBC Hgb Hct MCV MCHC RDW Plt Count Seg Neuts % (Manual) Lymphocytes % (Manual) Nucleated RBC % Seg Neutrophils # Man Abs Lymphs (Manual) Lymphocytes # (Manual) PT INR D-Dimer POC ABG pH 7.140 L 7.256 L POC ABG pCO2 121.0 H 97.8 H POC ABG pO2 113 H 137 H Sodium Potassium Chloride Carbon Dioxide BUN Creatinine Glucose POC Glucose 227 H Hemoglobin A1c Calcium AST ALT C-Reactive Protein Total Protein Albumin Triglycerides Lipase Ur Specific [place] Urine WBC (Auto) Urine Creatinine Urine Total Protein Vancomycin Trough Lymph Enumerat CD4/CD8 % CD3 Cells Absolute CD3 Count % CD4 Cells Absolute CD4 Count % CD8 Cells Absolute CD8 Count Absolute CD19 Count HIV DNA Qual (PCR) HIV-1 RNA PCR copies/ml HIV-1 RNA (PCR) log Miscellaneous Test Crossmatch 07/06/18 07/06/18 07/06/18 06:04 06:36 06:36 WBC RBC 2.30 L Hgb 7.3 L Hct 22.3 L MCV 97 H MCHC RDW 15.9 H Plt Count 56 L Seg Neuts % (Manual) 97.0 H Lymphocytes % (Manual) 3.0 L Nucleated RBC % Seg Neutrophils # Man 9.6 H Abs Lymphs (Manual) Lymphocytes # (Manual) 0.3 L PT INR D-Dimer POC ABG pH POC ABG pCO2 POC ABG pO2 Sodium 157 H Potassium Chloride 111.9 H Carbon Dioxide 41 H* BUN 52 H Creatinine Glucose 278 H POC Glucose 277 H Hemoglobin A1c Calcium 8.1 L AST ALT C-Reactive Protein Total Protein Albumin Triglycerides Lipase Ur Specific [place] Urine WBC (Auto) Urine Creatinine Urine Total Protein Vancomycin Trough Lymph Enumerat CD4/CD8 % CD3 Cells Absolute CD3 Count % CD4 Cells Absolute CD4 Count % CD8 Cells Absolute CD8 Count Absolute CD19 Count HIV DNA Qual (PCR) HIV-1 RNA PCR copies/ml HIV-1 RNA (PCR) log Miscellaneous Test Crossmatch 07/06/18 07/06/18 07/06/18 12:13 17:57 23:18 WBC RBC Hgb Hct MCV MCHC RDW Plt Count Seg Neuts % (Manual) Lymphocytes % (Manual) Nucleated RBC % Seg Neutrophils # Man Abs Lymphs (Manual) Lymphocytes # (Manual) PT INR D-Dimer POC ABG pH POC ABG pCO2 POC ABG pO2 Sodium Potassium Chloride Carbon Dioxide BUN Creatinine Glucose POC Glucose 279 H 265 H 231 H Hemoglobin A1c Calcium AST ALT C-Reactive Protein Total Protein Albumin Triglycerides Lipase Ur Specific [place] Urine WBC (Auto) Urine Creatinine Urine Total Protein Vancomycin Trough Lymph Enumerat CD4/CD8 % CD3 Cells Absolute CD3 Count % CD4 Cells Absolute CD4 Count % CD8 Cells Absolute CD8 Count Absolute CD19 Count HIV DNA Qual (PCR) HIV-1 RNA PCR copies/ml HIV-1 RNA (PCR) log Miscellaneous Test Crossmatch 07/07/18 07/07/18 07/07/18 04:00 04:00 04:00 WBC 12.1 H RBC 2.40 L Hgb 7.3 L Hct 23.2 L MCV 97 H MCHC 31 L RDW 15.7 H Plt Count 57 L Seg Neuts % (Manual) 95.0 H Lymphocytes % (Manual) 2.0 L Nucleated RBC % 2.0 H Seg Neutrophils # Man 11.5 H Abs Lymphs (Manual) Lymphocytes # (Manual) 0.2 L PT INR D-Dimer POC ABG pH POC ABG pCO2 POC ABG pO2 Sodium 154 H Potassium Chloride 108.1 H Carbon Dioxide 42 H* BUN 43 H Creatinine 0.7 L Glucose 260 H POC Glucose Hemoglobin A1c 6.3 H Calcium 8.1 L AST ALT C-Reactive Protein Total Protein Albumin Triglycerides Lipase Ur Specific [place] Urine WBC (Auto) Urine Creatinine Urine Total Protein Vancomycin Trough Lymph Enumerat CD4/CD8 % CD3 Cells Absolute CD3 Count % CD4 Cells Absolute CD4 Count % CD8 Cells Absolute CD8 Count Absolute CD19 Count HIV DNA Qual (PCR) HIV-1 RNA PCR copies/ml HIV-1 RNA (PCR) log Miscellaneous Test Crossmatch 07/07/18 07/07/18 07/07/18 05:02 05:40 11:16 WBC RBC Hgb Hct MCV MCHC RDW Plt Count Seg Neuts % (Manual) Lymphocytes % (Manual) Nucleated RBC % Seg Neutrophils # Man Abs Lymphs (Manual) Lymphocytes # (Manual) PT INR D-Dimer POC ABG pH 7.295 L POC ABG pCO2 91.5 H POC ABG pO2 73 L Sodium Potassium Chloride Carbon Dioxide BUN Creatinine Glucose POC Glucose 292 H 262 H Hemoglobin A1c Calcium AST ALT C-Reactive Protein Total Protein Albumin Triglycerides Lipase Ur Specific [place] Urine WBC (Auto) Urine Creatinine Urine Total Protein Vancomycin Trough Lymph Enumerat CD4/CD8 % CD3 Cells Absolute CD3 Count % CD4 Cells Absolute CD4 Count % CD8 Cells Absolute CD8 Count Absolute CD19 Count HIV DNA Qual (PCR) HIV-1 RNA PCR copies/ml HIV-1 RNA (PCR) log Miscellaneous Test Crossmatch 07/07/18 07/07/18 07/08/18 17:32 23:26 04:05 WBC RBC Hgb Hct MCV MCHC RDW Plt Count Seg Neuts % (Manual) Lymphocytes % (Manual) Nucleated RBC % Seg Neutrophils # Man Abs Lymphs (Manual) Lymphocytes # (Manual) PT INR D-Dimer POC ABG pH 7.279 L POC ABG pCO2 100.4 H POC ABG pO2 134 H Sodium Potassium Chloride Carbon Dioxide BUN Creatinine Glucose POC Glucose 254 H 168 H Hemoglobin A1c Calcium AST ALT C-Reactive Protein Total Protein Albumin Triglycerides Lipase Ur Specific [place] Urine WBC (Auto) Urine Creatinine Urine Total Protein Vancomycin Trough Lymph Enumerat CD4/CD8 % CD3 Cells Absolute CD3 Count % CD4 Cells Absolute CD4 Count % CD8 Cells Absolute CD8 Count Absolute CD19 Count HIV DNA Qual (PCR) HIV-1 RNA PCR copies/ml HIV-1 RNA (PCR) log Miscellaneous Test Crossmatch 07/08/18 07/08/18 07/08/18 05:00 05:00 06:45 WBC 12.6 H RBC 2.27 L Hgb 6.9 L Hct 21.8 L MCV 96 H MCHC RDW Plt Count 57 L Seg Neuts % (Manual) 98.0 H Lymphocytes % (Manual) 0 L Nucleated RBC % Seg Neutrophils # Man 12.3 H Abs Lymphs (Manual) Lymphocytes # (Manual) 0.0 L PT INR D-Dimer POC ABG pH POC ABG pCO2 POC ABG pO2 Sodium 156 H Potassium Chloride 109.6 H Carbon Dioxide 45 H* BUN 40 H Creatinine 0.6 L Glucose 200 H POC Glucose 193 H Hemoglobin A1c Calcium 8.2 L AST ALT C-Reactive Protein Total Protein Albumin Triglycerides Lipase Ur Specific [place] Urine WBC (Auto) Urine Creatinine Urine Total Protein Vancomycin Trough Lymph Enumerat CD4/CD8 % CD3 Cells Absolute CD3 Count % CD4 Cells Absolute CD4 Count % CD8 Cells Absolute CD8 Count Absolute CD19 Count HIV DNA Qual (PCR) HIV-1 RNA PCR copies/ml HIV-1 RNA (PCR) log Miscellaneous Test Crossmatch 07/08/18 07/08/18 07/08/18 09:53 12:44 17:37 WBC RBC Hgb Hct MCV MCHC RDW Plt Count Seg Neuts % (Manual) Lymphocytes % (Manual) Nucleated RBC % Seg Neutrophils # Man Abs Lymphs (Manual) Lymphocytes # (Manual) PT INR D-Dimer POC ABG pH POC ABG pCO2 POC ABG pO2 Sodium Potassium Chloride Carbon Dioxide BUN Creatinine Glucose POC Glucose 163 H 125 H Hemoglobin A1c Calcium AST ALT C-Reactive Protein Total Protein Albumin Triglycerides Lipase Ur Specific [place] Urine WBC (Auto) Urine Creatinine Urine Total Protein Vancomycin Trough Lymph Enumerat CD4/CD8 % CD3 Cells Absolute CD3 Count % CD4 Cells Absolute CD4 Count % CD8 Cells Absolute CD8 Count Absolute CD19 Count HIV DNA Qual (PCR) HIV-1 RNA PCR copies/ml HIV-1 RNA (PCR) log Miscellaneous Test Crossmatch See Detail 07/09/18 07/09/18 07/09/18 00:24 05:20 05:41 WBC RBC Hgb Hct MCV MCHC RDW Plt Count Seg Neuts % (Manual) Lymphocytes % (Manual) Nucleated RBC % Seg Neutrophils # Man Abs Lymphs (Manual) Lymphocytes # (Manual) PT INR D-Dimer POC ABG pH 7.319 L POC ABG pCO2 POC ABG pO2 78 L Sodium Potassium Chloride Carbon Dioxide BUN Creatinine Glucose POC Glucose 173 H 157 H Hemoglobin A1c Calcium AST ALT C-Reactive Protein Total Protein Albumin Triglycerides Lipase Ur Specific [place] Urine WBC (Auto) Urine Creatinine Urine Total Protein Vancomycin Trough Lymph Enumerat CD4/CD8 % CD3 Cells Absolute CD3 Count % CD4 Cells Absolute CD4 Count % CD8 Cells Absolute CD8 Count Absolute CD19 Count HIV DNA Qual (PCR) HIV-1 RNA PCR copies/ml HIV-1 RNA (PCR) log Miscellaneous Test Crossmatch 07/09/18 07/09/18 07/09/18 10:55 10:55 11:00 WBC RBC 2.44 L Hgb 7.6 L Hct 23.3 L MCV 95 H MCHC RDW Plt Count 49 L Seg Neuts % (Manual) Lymphocytes % (Manual) Nucleated RBC % Seg Neutrophils # Man Abs Lymphs (Manual) Lymphocytes # (Manual) PT INR D-Dimer POC ABG pH 7.248 L POC ABG pCO2 POC ABG pO2 Sodium 154 H Potassium Chloride Carbon Dioxide 46 H* BUN 30 H Creatinine 0.6 L Glucose 125 H POC Glucose Hemoglobin A1c Calcium 7.9 L AST ALT C-Reactive Protein Total Protein Albumin Triglycerides Lipase Ur Specific [place] Urine WBC (Auto) Urine Creatinine Urine Total Protein Vancomycin Trough Lymph Enumerat CD4/CD8 % CD3 Cells Absolute CD3 Count % CD4 Cells Absolute CD4 Count % CD8 Cells Absolute CD8 Count Absolute CD19 Count HIV DNA Qual (PCR) HIV-1 RNA PCR copies/ml HIV-1 RNA (PCR) log Miscellaneous Test Crossmatch 07/09/18 07/09/18 07/09/18 12:25 17:57 23:53 WBC RBC Hgb Hct MCV MCHC RDW Plt Count Seg Neuts % (Manual) Lymphocytes % (Manual) Nucleated RBC % Seg Neutrophils # Man Abs Lymphs (Manual) Lymphocytes # (Manual) PT INR D-Dimer POC ABG pH POC ABG pCO2 POC ABG pO2 Sodium Potassium Chloride Carbon Dioxide BUN Creatinine Glucose POC Glucose 129 H 186 H 174 H Hemoglobin A1c Calcium AST ALT C-Reactive Protein Total Protein Albumin Triglycerides Lipase Ur Specific [place] Urine WBC (Auto) Urine Creatinine Urine Total Protein Vancomycin Trough Lymph Enumerat CD4/CD8 % CD3 Cells Absolute CD3 Count % CD4 Cells Absolute CD4 Count % CD8 Cells Absolute CD8 Count Absolute CD19 Count HIV DNA Qual (PCR) HIV-1 RNA PCR copies/ml HIV-1 RNA (PCR) log Miscellaneous Test Crossmatch 07/10/18 07/10/18 07/10/18 05:19 07:20 07:20 WBC RBC 2.33 L Hgb 7.1 L Hct 22.3 L MCV 96 H MCHC RDW Plt Count 55 L Seg Neuts % (Manual) 98.0 H Lymphocytes % (Manual) 2.0 L Nucleated RBC % Seg Neutrophils # Man 10.8 H Abs Lymphs (Manual) Lymphocytes # (Manual) 0.2 L PT INR D-Dimer POC ABG pH POC ABG pCO2 POC ABG pO2 Sodium 152 H Potassium 5.1 H Chloride Carbon Dioxide 41 H* BUN 44 H Creatinine Glucose 144 H POC Glucose 139 H Hemoglobin A1c Calcium 7.9 L AST ALT C-Reactive Protein Total Protein Albumin Triglycerides Lipase Ur Specific [place] Urine WBC (Auto) Urine Creatinine Urine Total Protein Vancomycin Trough Lymph Enumerat CD4/CD8 % CD3 Cells Absolute CD3 Count % CD4 Cells Absolute CD4 Count % CD8 Cells Absolute CD8 Count Absolute CD19 Count HIV DNA Qual (PCR) HIV-1 RNA PCR copies/ml HIV-1 RNA (PCR) log Miscellaneous Test Crossmatch 07/10/18 07/10/18 07/10/18 07:20 12:03 17:00 WBC RBC Hgb Hct MCV MCHC RDW Plt Count Seg Neuts % (Manual) Lymphocytes % (Manual) Nucleated RBC % Seg Neutrophils # Man Abs Lymphs (Manual) Lymphocytes # (Manual) PT INR D-Dimer POC ABG pH 7.272 L POC ABG pCO2 POC ABG pO2 234 H Sodium Potassium Chloride Carbon Dioxide BUN Creatinine Glucose POC Glucose 178 H Hemoglobin A1c Calcium AST ALT C-Reactive Protein Total Protein Albumin Triglycerides 307 H Lipase 140 H Ur Specific [place] Urine WBC (Auto) Urine Creatinine Urine Total Protein Vancomycin Trough Lymph Enumerat CD4/CD8 % CD3 Cells Absolute CD3 Count % CD4 Cells Absolute CD4 Count % CD8 Cells Absolute CD8 Count Absolute CD19 Count HIV DNA Qual (PCR) HIV-1 RNA PCR copies/ml HIV-1 RNA (PCR) log Miscellaneous Test Crossmatch 07/10/18 07/11/18 07/11/18 18:20 00:36 05:20 WBC RBC 1.94 L Hgb 6.1 L Hct 18.2 L* MCV MCHC RDW Plt Count 53 L Seg Neuts % (Manual) Lymphocytes % (Manual) Nucleated RBC % Seg Neutrophils # Man Abs Lymphs (Manual) Lymphocytes # (Manual) PT INR D-Dimer POC ABG pH POC ABG pCO2 POC ABG pO2 Sodium Potassium Chloride Carbon Dioxide BUN Creatinine Glucose POC Glucose 187 H 172 H Hemoglobin A1c Calcium AST ALT C-Reactive Protein Total Protein Albumin Triglycerides Lipase Ur Specific [place] Urine WBC (Auto) Urine Creatinine Urine Total Protein Vancomycin Trough Lymph Enumerat CD4/CD8 % CD3 Cells Absolute CD3 Count % CD4 Cells Absolute CD4 Count % CD8 Cells Absolute CD8 Count Absolute CD19 Count HIV DNA Qual (PCR) HIV-1 RNA PCR copies/ml HIV-1 RNA (PCR) log Miscellaneous Test Crossmatch 07/11/18 07/11/18 07/11/18 05:20 05:39 07:00 WBC RBC Hgb 6.2 L Hct 18.4 L* MCV MCHC RDW Plt Count Seg Neuts % (Manual) Lymphocytes % (Manual) Nucleated RBC % Seg Neutrophils # Man Abs Lymphs (Manual) Lymphocytes # (Manual) PT INR D-Dimer POC ABG pH POC ABG pCO2 POC ABG pO2 Sodium 146 H Potassium Chloride Carbon Dioxide 36 H BUN 62 H Creatinine 1.9 H D Glucose 137 H POC Glucose 143 H Hemoglobin A1c Calcium 7.6 L AST ALT C-Reactive Protein Total Protein Albumin Triglycerides Lipase Ur Specific [place] Urine WBC (Auto) Urine Creatinine Urine Total Protein Vancomycin Trough Lymph Enumerat CD4/CD8 % CD3 Cells Absolute CD3 Count % CD4 Cells Absolute CD4 Count % CD8 Cells Absolute CD8 Count Absolute CD19 Count HIV DNA Qual (PCR) HIV-1 RNA PCR copies/ml HIV-1 RNA (PCR) log Miscellaneous Test Crossmatch 07/11/18 07/11/18 07/11/18 08:00 12:17 13:19 WBC RBC Hgb Hct MCV MCHC RDW Plt Count Seg Neuts % (Manual) Lymphocytes % (Manual) Nucleated RBC % Seg Neutrophils # Man Abs Lymphs (Manual) Lymphocytes # (Manual) PT INR D-Dimer POC ABG pH POC ABG pCO2 POC ABG pO2 Sodium Potassium Chloride Carbon Dioxide BUN Creatinine Glucose POC Glucose 159 H Hemoglobin A1c Calcium AST ALT C-Reactive Protein Total Protein Albumin Triglycerides Lipase Ur Specific [place] Urine WBC (Auto) Urine Creatinine Urine Total Protein Vancomycin Trough 36.5 H Lymph Enumerat CD4/CD8 % CD3 Cells Absolute CD3 Count % CD4 Cells Absolute CD4 Count % CD8 Cells Absolute CD8 Count Absolute CD19 Count HIV DNA Qual (PCR) HIV-1 RNA PCR copies/ml HIV-1 RNA (PCR) log Miscellaneous Test Crossmatch See Detail 07/11/18 07/11/18 07/11/18 15:35 16:00 18:16 WBC RBC Hgb 8.2 L Hct 24.5 L D MCV MCHC RDW Plt Count Seg Neuts % (Manual) Lymphocytes % (Manual) Nucleated RBC % Seg Neutrophils # Man Abs Lymphs (Manual) Lymphocytes # (Manual) PT INR D-Dimer POC ABG pH 7.218 L POC ABG pCO2 POC ABG pO2 146 H Sodium Potassium Chloride Carbon Dioxide BUN Creatinine Glucose POC Glucose 145 H Hemoglobin A1c Calcium AST ALT C-Reactive Protein Total Protein Albumin Triglycerides Lipase Ur Specific [place] Urine WBC (Auto) Urine Creatinine Urine Total Protein Vancomycin Trough Lymph Enumerat CD4/CD8 % CD3 Cells Absolute CD3 Count % CD4 Cells Absolute CD4 Count % CD8 Cells Absolute CD8 Count Absolute CD19 Count HIV DNA Qual (PCR) HIV-1 RNA PCR copies/ml HIV-1 RNA (PCR) log Miscellaneous Test Crossmatch 07/11/18 07/12/18 07/12/18 23:36 05:19 05:19 WBC 3.8 L RBC 2.51 L Hgb 7.6 L Hct 22.8 L MCV MCHC RDW 15.4 H Plt Count 48 L Seg Neuts % (Manual) Lymphocytes % (Manual) Nucleated RBC % Seg Neutrophils # Man Abs Lymphs (Manual) Lymphocytes # (Manual) PT INR D-Dimer POC ABG pH POC ABG pCO2 POC ABG pO2 Sodium 146 H Potassium Chloride Carbon Dioxide 34 H BUN 53 H Creatinine Glucose 201 H POC Glucose 183 H Hemoglobin A1c Calcium 7.4 L AST ALT C-Reactive Protein Total Protein Albumin Triglycerides 564 H Lipase Ur Specific [place] Urine WBC (Auto) Urine Creatinine Urine Total Protein Vancomycin Trough Lymph Enumerat CD4/CD8 % CD3 Cells Absolute CD3 Count % CD4 Cells Absolute CD4 Count % CD8 Cells Absolute CD8 Count Absolute CD19 Count HIV DNA Qual (PCR) HIV-1 RNA PCR copies/ml HIV-1 RNA (PCR) log Miscellaneous Test Crossmatch Allied health notes reviewed: nursing
[2018-07-12] MEDS ORDERED: VANCOMYCIN 1,500 MG in NACL 0.9% 500 ML 500 ML IV SCH (10:00)
[2018-07-12] MEDS ORDERED: MAXIPIME/NS 2 GM/100 ML 2 GM/100 ML BAG IV SCH (10:00)
--- NOTE | 2018-07-12 10:47 | Progress Note ---
Assessment and Plan Assessment and plan: /ARDS with Acute respiratory failure with hypoxia requiring full mechanical ventilatory support - Likely due to severe sepsis and bilateral pneumonia - Continue to treat underlying pneumonia with antibiotics, frequent nebs, ventilator support - Critical care following /Sepsis - secondary to bilateral pneumonia, profound immunosuppression from underlying AIDS - ID on board, CD4 count equals 10 - Continue antibiotics, IV fluid - Patient currently off pressor /Septic shock, resolved, currently off pressor /Extensive bilateral pneumonia -Extensive bilateral ground glass opacities and pneumonia with severe hypoxia. - Cytology PJP stain negative but DFA showed rare PJP. - Lung cytology GMS stain showed septated fungal hyphae with acute angle branching and yeast forms - but fungal cx negative, negative AFB and negative Aspregillus Ag - Serum CMV DNA PCR 06/19/2018 13,166 - per ID this is probably reactivation in the setting of critical illness - completed 10 days of amphothericin, Per ID now on voriconazole, ganciclovir and mepron - started IV Cefepime and Vancomycin due to new fevers /HIV WITH AIDS defining disease, ID following CD4=10 / VL 1,300,000 copies Azithromycin weekly for MAC Px Fever /Hypernatremia, due to loosing free water continue IV fluid, having negative balance daily cont to monitor BMP /Hyperglycemia, could be steroid induced A1c 6.3 increased long acting insulin dose, cont SSI /Epixtasis, due to the low platelets and severe sepsis, resolved /JENNIFER secondary to Multifactorial causes, resolved - in setting of pre-renal injury, ATN secondary sepsis, contrast exposure, voriconazole, bactrim/antibiotic exposure. - Nephrology following, creatinine improved slowly with iv fluid /Severe metabolic acidosis, due to severe sepsis and worsening renal function - Continue to monitor BMP /Shock liver- from severe sepsis, Improving /Pulmonary hypertension, likely secondary to severe pneumonia - Critical care attending following /Hyperkalemia, Now resolved after kayexalate, /Gross hematuria, - Gross hematuria after muir catheter placed on06/30/18, now resolved. Consulted Urology and Laisha Arroyo evaluated patient and recommends conservative management. //Anemia due to acute blood loss from hematuria and anemia of chronic disease required total 8 units of transfusion so far /DVT and GI prophylaxis /Poor prognosis, DO NOT RESUSCITATE CODE STATUS The high probability of a clinically significant, sudden or life threatening deterioration of the [Pulmonary] system(s) required my full and direct attention, intervention and personal management. The aggregate critical care time was [33] minutes. This time is in addition to time spent performing reported procedures but includes the following: [x] Data Review and interpretation [x] Patient assessment and monitoring of vital signs [x] Documentation [x] Medication orders and management History Interval history: Patient is 32 yo with hypertension presented with shortness of breath, cough. He was found to have bilateral infiltrates. He was diagnosed with acute respiratory failure due to bilateral pneumonia. He was started on iv Antibiotic s, put on BIPAP. He became worse, was intubated. Labs show + HIV/AIDS, new diagnosis. Patient is followed by Pulmonology, ID Physician. Few days into admission, he developed JENNIFER due to ATN from sepsis, contrast exposure and medications. Muir catheter was placed and Cr improving. Patient then developed gross hematuria, which now resolved. Off presoor now, but not ready to wean off from VENT. Family decided for DNR. Poor prognosis. Still having fever Still intubated Hospitalist Physical - Physical exam Narrative exam: GEN: Intubated,Obese, ill looking HEENT: Normocephalic, atraumatic, Neck: supple, No JVD Lungs: Bilateral crackles, no wheeze Heart:S1 and S2 regular, no murmurs, rubs or gallop, Abd:soft, non tender, non distended, normal bowel sounds Ext: Edema all ext, no clubbing or cyanosis Neuro: Intubated, sedated Skin:anasarca - Constitutional Vitals: Temp Pulse Resp BP Pulse Ox 103.1 F H 119 H 31 H 110/39 95 07/12/18 08:00 07/12/18 09:53 07/12/18 09:53 07/12/18 09:53 07/12/18 09:53 General appearance: Present: no acute distress Results - Labs CBC & Chem 7: 07/12/18 05:19 07/12/18 05:19 Labs: Laboratory Last Values WBC 3.8 K/mm3 (4.5-11.0) L 07/12/18 05:19 RBC 2.51 M/mm3 (3.65-5.03) L 07/12/18 05:19 Hgb 7.6 gm/dl (11.8-15.2) L 07/12/18 05:19 Hct 22.8 % (35.5-45.6) L 07/12/18 05:19 MCV 91 fl (84-94) 07/12/18 05:19 MCH 30 pg (28-32) 07/12/18 05:19 MCHC 33 % (32-34) 07/12/18 05:19 RDW 15.4 % (13.2-15.2) H 07/12/18 05:19 Plt Count 48 K/mm3 (140-440) L 07/12/18 05:19 Add Manual Diff Complete 07/10/18 07:20 Total Counted 100 07/10/18 07:20 Seg Neutrophils % Assistant Passenger Locomotive Engineer 07/10/18 07:20 Seg Neuts % (Manual) 98.0 % (40.0-70.0) H 07/10/18 07:20 Band Neutrophils % 0 % 07/10/18 07:20 Lymphocytes % (Manual) 2.0 % (13.4-35.0) L 07/10/18 07:20 Reactive Lymphs % (Man) 0 % 07/10/18 07:20 Monocytes % (Manual) 0 % (0.0-7.3) 07/10/18 07:20 Eosinophils % (Manual) 0 % (0.0-4.3) 07/10/18 07:20 Basophils % (Manual) 0 % (0.0-1.8) 07/10/18 07:20 Metamyelocytes % 0 % 07/10/18 07:20 Myelocytes % 0 % 07/10/18 07:20 Promyelocytes % 0 % 07/10/18 07:20 Blast Cells % 0 % 07/10/18 07:20 Nucleated RBC % Not Reportable 07/10/18 07:20 Seg Neutrophils # Man 10.8 K/mm3 (1.8-7.7) H 07/10/18 07:20 Band Neutrophils # 0.0 K/mm3 07/10/18 07:20 Abs Lymphs (Manual) 409 cells/uL (850-3900) L 06/19/18 07:11 Lymphocytes # (Manual) 0.2 K/mm3 (1.2-5.4) L 07/10/18 07:20 Abs React Lymphs (Man) 0.0 K/mm3 07/10/18 07:20 Monocytes # (Manual) 0.0 K/mm3 (0.0-0.8) 07/10/18 07:20 Eosinophils # (Manual) 0.0 K/mm3 (0.0-0.4) 07/10/18 07:20 Basophils # (Manual) 0.0 K/mm3 (0.0-0.1) 07/10/18 07:20 Metamyelocytes # 0.0 K/mm3 07/10/18 07:20 Myelocytes # 0.0 K/mm3 07/10/18 07:20 Promyelocytes # 0.0 K/mm3 07/10/18 07:20 Blast Cells # 0.0 K/mm3 07/10/18 07:20 WBC Morphology Not Reportable 07/10/18 07:20 Hypersegmented Neuts Not Reportable 07/10/18 07:20 Hyposegmented Neuts Not Reportable 07/10/18 07:20 Hypogranular Neuts Not Reportable 07/10/18 07:20 Smudge Cells Not Reportable 07/10/18 07:20 Toxic Granulation Not Reportable 07/10/18 07:20 Toxic Vacuolation Not Reportable 07/10/18 07:20 Dohle Bodies Not Reportable 07/10/18 07:20 Pelger-Huet Anomaly Not Reportable 07/10/18 07:20 Loretta Rods Not Reportable 07/10/18 07:20 Platelet Estimate Consistent w auto 07/10/18 07:20 Clumped Platelets Not Reportable 07/10/18 07:20 Plt Clumps, EDTA Not Reportable 07/10/18 07:20 Large Platelets Not Reportable 07/10/18 07:20 Giant Platelets Not Reportable 07/10/18 07:20 Platelet Satelliting Not Reportable 07/10/18 07:20 Plt Morphology Comment Not Reportable 07/10/18 07:20 RBC Morphology Not Reportable 07/10/18 07:20 Dimorphic RBCs Not Reportable 07/10/18 07:20 Polychromasia Not Reportable 07/10/18 07:20 Hypochromasia Not Reportable 07/10/18 07:20 Poikilocytosis 1+ 07/10/18 07:20 Anisocytosis 1+ 07/10/18 07:20 Microcytosis Rare 07/10/18 07:20 Macrocytosis Not Reportable 07/10/18 07:20 Spherocytes Not Reportable 07/10/18 07:20 Pappenheimer Bodies Not Reportable 07/10/18 07:20 Sickle Cells Not Reportable 07/10/18 07:20 Target Cells Not Reportable 07/10/18 07:20 Tear Drop Cells Rare 07/10/18 07:20 Ovalocytes Not Reportable 07/10/18 07:20 Stomatocytes 1+ 07/07/18 04:00 Helmet Cells Not Reportable 07/10/18 07:20 Flores-Hughes Bodies Not Reportable 07/10/18 07:20 [place] Rings Not Reportable 07/10/18 07:20 Lucy Cells Not Reportable 07/10/18 07:20 Bite Cells Not Reportable 07/10/18 07:20 Crenated Cell Not Reportable 07/10/18 07:20 Elliptocytes Not Reportable 07/10/18 07:20 Acanthocytes (Spur) Not Reportable 07/10/18 07:20 Rouleaux Not Reportable 07/10/18 07:20 Hemoglobin C Crystals Not Reportable 07/10/18 07:20 Schistocytes Not Reportable 07/10/18 07:20 Malaria parasites Not Reportable 07/10/18 07:20 Jesus Bodies Not Reportable 07/10/18 07:20 Hem Pathologist Commnt No 07/10/18 07:20 PT 14.3 Sec. (12.2-14.9) 07/01/18 09:11 INR 1.05 (0.87-1.13) 07/01/18 09:11 APTT 28.7 Sec. (24.2-36.6) 06/19/18 Unknown Fibrinogen 428 mg/dl (211-480) 07/01/18 10:00 D-Dimer 2387.14 ng/mlDDU (0-234) H 07/01/18 10:00 POC ABG pH 7.218 (7.35-7.45) L 07/11/18 15:35 POC ABG pCO2 100.4 (35-45) H 07/08/18 04:05 POC ABG pO2 146 (80-105) H 07/11/18 15:35 POC ABG HCO3 41.0 (22-26 mml/L) 07/11/18 15:35 POC ABG Total CO2 44 (23-27mmol/L) 07/11/18 15:35 POC ABG O2 Sat 98 07/11/18 15:35 POC ABG Base Excess 13 ((-2) - (+3)mmol/L) 07/11/18 15:35 FiO2 100 % 07/11/18 15:35 Sodium 146 mmol/L (137-145) H 07/12/18 05:19 Potassium 4.4 mmol/L (3.6-5.0) 07/12/18 05:19 Chloride 101.6 mmol/L (98-107) 07/12/18 05:19 Carbon Dioxide 34 mmol/L (22-30) H 07/12/18 05:19 Anion Gap 15 mmol/L 07/12/18 05:19 BUN 53 mg/dL (9-20) H 07/12/18 05:19 Creatinine 1.2 mg/dL (0.8-1.5) 07/12/18 05:19 Estimated GFR > 60 ml/min 07/12/18 05:19 BUN/Creatinine Ratio 44 % 07/12/18 05:19 Glucose 201 mg/dL (75-100) H 07/12/18 05:19 POC Glucose 183 (70-105) H 07/11/18 23:36 Hemoglobin A1c 6.3 % (4-6) H 07/07/18 04:00 Lactic Acid 1.70 mmol/L (0.7-2.0) 06/19/18 05:26 Calcium 7.4 mg/dL (8.4-10.2) L 07/12/18 05:19 Total Bilirubin < 0.20 mg/dL (0.1-1.2) 06/23/18 05:11 Direct Bilirubin < 0.2 mg/dL (0-0.2) 06/19/18 Unknown Indirect Bilirubin 0.2 mg/dL 06/19/18 Unknown AST 63 units/L (5-40) H 06/23/18 05:11 ALT 297 units/L (7-56) H 06/23/18 05:11 Alkaline Phosphatase 127 units/L (35-129) 06/23/18 05:11 Troponin T < 0.010 ng/mL (0.00-0.029) 06/19/18 Unknown C-Reactive Protein 1.60 mg/dL (0.00-1.30) H 06/23/18 18:40 NT-Pro-B Natriuret Pep 226.4 pg/mL (0-450) 06/19/18 Unknown Total Protein 5.3 g/dL (6.3-8.2) L 06/23/18 05:11 Albumin 2.4 g/dL (3.9-5) L 06/23/18 05:11 Albumin/Globulin Ratio 0.8 % 06/23/18 05:11 Triglycerides 564 mg/dL (2-149) H 07/12/18 05:19 Lipase 140 units/L (13-60) H 07/10/18 07:20 Urine Color Yellow (Yellow) 06/24/18 22:45 Urine Turbidity Slightly-cloudy (Clear) 06/24/18 22:45 Urine pH 5.0 (5.0-7.0) 06/24/18 22:45 Ur Specific [place] 1.014 (1.003-1.030) 06/24/18 22:45 Urine Protein <15 mg/dl mg/dL (Negative) 06/24/18 22:45 Urine Glucose (UA) Neg mg/dL (Negative) 06/24/18 22:45 Urine Ketones Neg mg/dL (Negative) 06/24/18 22:45 Urine Blood Neg (Negative) 06/24/18 22:45 Urine Nitrite Neg (Negative) 06/24/18 22:45 Urine Bilirubin Neg (Negative) 06/24/18 22:45 Urine Urobilinogen < 2.0 mg/dL (<2.0) 06/24/18 22:45 Ur Leukocyte Esterase Neg (Negative) 06/24/18 22:45 Urine WBC (Auto) 9.0 /HPF (0.0-6.0) H 06/24/18 22:45 Urine RBC (Auto) 19.0 /HPF (0.0-6.0) 06/24/18 22:45 U Epithel Cells (Auto) < 1.0 /HPF (0-13.0) 06/19/18 08:07 Urine Bacteria (Auto) 1+ /HPF (Negative) 06/24/18 22:45 Hyaline Casts 1 /LPF 06/24/18 22:45 Urine Mucus Few /HPF 06/19/18 08:07 Urine Yeast (Budding) 1+ /HPF 06/24/18 22:45 Urine Eosinophils None seen (None Seen) 06/24/18 22:45 Urine Creatinine 47.2 mg/dL (0.1-20.0) H 06/24/18 22:45 Urine Sodium 40 mmol/L 06/24/18 22:45 Urine Total Protein 25 mg/dL (5-11.8) H 06/24/18 22:45 Vancomycin Trough 36.5 ug/mL (5.0-20.0) H 07/11/18 13:19 Random Vancomycin 6.5 ug/mL (0-40.0) 06/25/18 11:40 Urine Opiates Screen Presumptive negative 06/19/18 08:06 Urine Methadone Screen Presumptive negative 06/19/18 08:06 Ur Barbiturates Screen Presumptive negative 06/19/18 08:06 Ur Phencyclidine Scrn Presumptive negative 06/19/18 08:06 Ur Amphetamines Screen Presumptive negative 06/19/18 08:06 U Benzodiazepines Scrn Presumptive positive 06/19/18 08:06 Urine Cocaine Screen Presumptive negative 06/19/18 08:06 U Marijuana (THC) Screen Presumptive negative 06/19/18 08:06 Drugs of Abuse Note Disclamer 06/19/18 08:06 Lymph Enumerat CD4/CD8 0.05 (0.86-5.00) L 06/19/18 07:11 % CD3 Cells 45 % (57-85) L 06/19/18 07:11 Absolute CD3 Count 185 cells/uL (840-3060) L 06/19/18 07:11 % CD4 Cells 2 % (30-61) L 06/19/18 07:11 Absolute CD4 Count 10 cells/uL (490-1740) L 06/19/18 07:11 % CD8 Cells 43 % (12-42) H 06/19/18 07:11 Absolute CD8 Count 167 cells/uL (180-1170) L 06/19/18 07:11 % CD19 Cells 18 % (6-29) 06/19/18 07:11 Absolute CD19 Count 79 cells/uL (110-660) L 06/19/18 07:11 CMV DNA PCR log endoscopy registered nurse/mL See scanned result 07/10/18 07:20 Hepatitis A IgM Ab Non-reactive (NonReactive) 06/21/18 04:19 Hep Bs Antigen Non-reactive (Negative) 06/21/18 04:19 Hep B Core IgM Ab Non-reactive (NonReactive) 06/21/18 04:19 Hepatitis C Antibody Non-reactive (NonReactive) 06/21/18 04:19 HIV DNA Qual (PCR) Detected (Not Detected) H 06/19/18 09:20 HIV-1 Antibody See scanned results 06/19/18 07:12 HIV-1 RNA PCR copies/ml [id number] Copies/mL H 06/19/18 15:16 HIV-1 RNA (PCR) log 6.11 Log cps/mL H 06/19/18 15:16 HIV-1 Genotyping See scanned result 06/19/18 09:20 HIV-2 Ab (Immunoblot) See scanned results 06/19/18 07:12 HIV 1&2 Antibody Rapid Reactive (Non React) 06/19/18 07:10 HIV P24 Antigen Invalid (Non React) 06/19/18 07:10 Influenza A (Rapid) Negative (Negative) 06/19/18 Unknown Influenza A (RT-PCR) Negative (Negative) 06/21/18 12:30 Influenza B (Rapid) Negative (Negative) 06/19/18 Unknown Influenza B (RT-PCR) Negative (Negative) 06/21/18 12:30 Toxoplasma IgG Ab <7.20 IU/mL (<7.20) 07/03/18 10:24 Miscellaneous Test Flexitest 1 07/05/18 12:20 Blood Type O POSITIVE 07/11/18 08:00 Antibody Screen Negative 07/11/18 08:00 Crossmatch See Detail 07/11/18 08:00 Nutrition/Malnutrition Assess - Dietary Evaluation Nutrition/Malnutrition Findings: Nutrition Notes Start: 06/19/18 14:17 Freq: Status: Active Protocol: Document 07/09/18 16:18 EROS (Rec: 07/09/18 16:24 EROS [id number] [email or web address]) Nutrition Notes Initial or Follow up Reassessment Current Diagnosis Acute Kidney Injury, Respiratory Failure Other Pertinent Diagnosis Bilat pneu, HIV/AIDS Current Diet TF - Nepro at 50ml/hr Labs/Tests (07/08/18) Na 156 BUN 40 BG 200 Pertinent Medications D5Wat 50ml/hr Lantus Height 5 ft 9 in Weight 89.5 kg [place] Body Weight (kg) 72.72 BMI 29.1 Weight change and time frame Current wt obtained from bed scale Subjective/Other Information Pt tolerating TF at goal rate, per RN. He remains on vent support. He is receiving 300ml water flushes q4h. Percent of energy/protein needs met: 98% energy 91% pro Burn Absent Trauma Absent #1 Nutrition Diagnosis Inadequate oral intake Diagnosis Progress(for reassessment Continues documentation) Is patient on ventilator? Yes Is Patient Ambulatory and/or Out of Bed No REE-([place]-[facility]. Jeor-confined to bed) 9560.288 [facility]culation [facility] Additional Notes Pro needs 1.2-2g/k-179g/ day Fluid needs per MD Nutrition Intervention Nutrition Support: Continue Nepro at 50 ml/hr with 300 ml water flush q4h or per MD. Kcal 2,160 Protein (gm) 97 Fluid (mL) 872 Goal #1 TF tolerance Goal #2 TF to continue to meet 80-100% of kcal and protein needs. Follow-Up By: 07/12/18 Additional Comments F/U: Na lab, water flushes
[2018-07-12] MEDS: SODIUM CHLORIDE FLUSH SYRINGE 10 ML IV SCH (10:57)
[2018-07-12] MEDS: MEPRON PO SCH ×2 (11:00→21:40)
[2018-07-12] MEDS: PREVACID SOLUTAB FEEDTUBE SCH (11:00)
--- NOTE | 2018-07-12 11:06 | Progress Note ---
Assessment and Plan - Patient Problems (1) Acute kidney failure with tubular necrosis Current Visit: Yes Status: Acute Plan to address problem: Kidney injury acute tubular necrosis of multifactorial etiology secondary to contrast exposure, medications including voriconazole and hypotension. Kidney function is now improving. Resolving obstructive uropathy status post Muir catheter insertion. Monitor urine output and electrolytes and renal function. PHARMACY TO RENALLY DOSE ALL MEDICATIONS. AVOID EXPOSURE TO NEPHROTOXINS WHERE FEASIBLE. (2) Hypernatremia Current Visit: Yes Status: Acute Plan to address problem: Improving. Continue free water replacement and follow sodium. (3) Hyperkalemia Current Visit: Yes Status: Acute Plan to address problem: Potassium has improved. (4) Acute respiratory failure with hypoxia Current Visit: Yes Status: Acute Plan to address problem: Ventilator management by pulmonary (5) Anemia Current Visit: Yes Status: Acute Plan to address problem: Being managed by rn postpartum (6) AIDS (acquired immunodeficiency syndrome), CD4 <=200 Current Visit: Yes Status: Acute Plan to address problem: Continue management by infectious disease consultants (7) Bilateral pneumonia Current Visit: Yes Status: Acute Qualifiers: Pneumonia type: due to unspecified organism Lung location: unspecified part of lung Qualified Code(s): J18.9 - Pneumonia, unspecified organism Plan to address problem: Continue antibiotics per infectious disease philatelic consultant Subjective Date of service: 07/12/18 Principal diagnosis: Acute Hypoxemic Resp Failure; AIDS / HIV positive; Severe Sepsis due to PNA Interval history: Patient seen lying in bed intubated on ventilator. Patient is not interacting. Objective - Exam Narrative Exam: Young male lying in bed intubated on ventilator HEENT: NCAT, ETT intact Neck: Supple, no venous distention CVS: S1S2 RRR with no murmur, rub or gallop Chest: Bilateral rhonchi Abdomen: Protuberant, soft, nontender, no organomegaly, bowel sounds are present Extremities: 1-2+ edema extremities Genitourinary deferred, muir catheter draining clear urine Skin warm and dry Neuro: Eyes open, not following commands - Vital Signs Vital signs: Vital Signs - 12hr 07/11/18 07/11/18 07/11/18 23:15 23:30 23:43 Temperature Pulse Rate 131 H 131 H 130 H Pulse Rate [ Bilateral] Respiratory 30 H 30 H 30 H Rate Respiratory Rate [Bilateral ] Blood Pressure 114/46 117/45 117/45 O2 Sat by Pulse 97 95 97 Oximetry 07/11/18 07/11/18 07/12/18 23:45 23:55 00:00 Temperature 100.9 F H Pulse Rate 131 H 132 H 132 H Pulse Rate [ Bilateral] Respiratory 30 H 30 H 30 H Rate Respiratory Rate [Bilateral ] Blood Pressure 113/44 113/44 118/43 O2 Sat by Pulse 97 97 93 Oximetry 07/12/18 07/12/18 07/12/18 00:03 00:15 00:30 Temperature Pulse Rate 132 H 133 H 131 H Pulse Rate [ Bilateral] Respiratory 30 H 30 H Rate Respiratory Rate [Bilateral ] Blood Pressure 118/43 117/45 119/42 O2 Sat by Pulse 97 95 95 Oximetry 07/12/18 07/12/18 07/12/18 00:45 01:00 01:12 Temperature Pulse Rate 130 H 134 H Pulse Rate [ 133 H Bilateral] Respiratory 30 H 32 H Rate Respiratory 30 H Rate [Bilateral ] Blood Pressure 118/43 119/44 O2 Sat by Pulse 95 90 Oximetry 07/12/18 07/12/18 07/12/18 01:15 01:22 01:30 Temperature Pulse Rate 134 H 133 H Pulse Rate [ 133 H Bilateral] Respiratory 31 H 30 H Rate Respiratory 30 H Rate [Bilateral ] Blood Pressure 119/42 117/41 O2 Sat by Pulse 90 92 Oximetry 07/12/18 07/12/18 07/12/18 01:45 02:00 02:15 Temperature Pulse Rate 136 H 137 H 138 H Pulse Rate [ Bilateral] Respiratory 30 H 31 H 31 H Rate Respiratory Rate [Bilateral ] Blood Pressure 119/44 117/41 120/44 O2 Sat by Pulse 93 93 94 Oximetry 07/12/18 07/12/18 07/12/18 02:30 02:45 03:00 Temperature Pulse Rate 140 H 140 H 141 H Pulse Rate [ Bilateral] Respiratory 30 H 31 H 31 H Rate Respiratory Rate [Bilateral ] Blood Pressure 117/43 117/43 116/43 O2 Sat by Pulse 93 93 92 Oximetry 07/12/18 07/12/18 07/12/18 03:15 03:30 03:45 Temperature Pulse Rate 140 H 141 H 141 H Pulse Rate [ Bilateral] Respiratory 30 H 30 H 30 H Rate Respiratory Rate [Bilateral ] Blood Pressure 116/43 116/43 116/43 O2 Sat by Pulse 93 92 92 Oximetry 03/14/19 03/14/19 03/14/19 03:58 04:00 04:15 Temperature 101.1 F H Pulse Rate 136 H 142 H 142 H Pulse Rate [ Bilateral] Respiratory 30 H 30 H Rate Respiratory Rate [Bilateral ] Blood Pressure 117/43 121/44 121/44 O2 Sat by Pulse 95 92 92 Oximetry 07/12/18 07/12/18 07/12/18 04:30 04:45 05:00 Temperature Pulse Rate 142 H 140 H 140 H Pulse Rate [ Bilateral] Respiratory 31 H 32 H 33 H Rate Respiratory Rate [Bilateral ] Blood Pressure 113/43 113/43 117/43 O2 Sat by Pulse 91 90 90 Oximetry 07/12/18 07/12/18 07/12/18 05:15 05:30 05:45 Temperature Pulse Rate 137 H 137 H 138 H Pulse Rate [ Bilateral] Respiratory 30 H 32 H 35 H Rate Respiratory Rate [Bilateral ] Blood Pressure 117/43 119/39 119/39 O2 Sat by Pulse 90 94 95 Oximetry 07/12/18 07/12/18 07/12/18 06:00 06:15 06:30 Temperature Pulse Rate 139 H 138 H 140 H Pulse Rate [ Bilateral] Respiratory 36 H 35 H 24 Rate Respiratory Rate [Bilateral ] Blood Pressure 115/41 115/41 110/41 O2 Sat by Pulse 94 95 92 Oximetry 07/12/18 07/12/18 07/12/18 06:45 07:00 07:15 Temperature Pulse Rate 134 H 136 H 135 H Pulse Rate [ Bilateral] Respiratory 31 H 32 H 31 H Rate Respiratory Rate [Bilateral ] Blood Pressure 110/41 110/41 109/41 O2 Sat by Pulse 96 97 97 Oximetry 07/12/18 07/12/18 07/12/18 07:30 07:45 08:00 Temperature 103.1 F H Pulse Rate 135 H 132 H 131 H Pulse Rate [ Bilateral] Respiratory 31 H 31 H 30 H Rate Respiratory Rate [Bilateral ] Blood Pressure 117/40 117/40 113/38 O2 Sat by Pulse 95 97 95 Oximetry 07/12/18 07/12/18 07/12/18 08:15 08:30 08:45 Temperature Pulse Rate 131 H 129 H 130 H Pulse Rate [ Bilateral] Respiratory 31 H 30 H 11 L Rate Respiratory Rate [Bilateral ] Blood Pressure 113/38 110/39 110/39 O2 Sat by Pulse 98 96 94 Oximetry 07/12/18 07/12/18 07/12/18 09:00 09:15 09:30 Temperature Pulse Rate 122 H 121 H 120 H Pulse Rate [ Bilateral] Respiratory 30 H 32 H 31 H Rate Respiratory Rate [Bilateral ] Blood Pressure 110/40 110/40 110/39 O2 Sat by Pulse 90 92 92 Oximetry 07/12/18 07/12/18 07/12/18 09:45 09:53 10:00 Temperature Pulse Rate 120 H 120 H 121 H Pulse Rate [ 119 H Bilateral] Respiratory 31 H 31 H Rate Respiratory 31 H Rate [Bilateral ] Blood Pressure 110/39 110/39 112/40 O2 Sat by Pulse 95 95 94 Oximetry 07/12/18 07/12/18 07/12/18 10:15 10:30 10:45 Temperature Pulse Rate 117 H 117 H 116 H Pulse Rate [ Bilateral] Respiratory 30 H 30 H 30 H Rate Respiratory Rate [Bilateral ] Blood Pressure 112/40 102/40 102/40 O2 Sat by Pulse 97 95 97 Oximetry - Lab 07/12/18 05:19 07/12/18 05:19 Most recent lab results Calcium 7.4 mg/dL (8.4-10.2) L 07/12/18 05:19 Urine Creatinine 47.2 mg/dL (0.1-20.0) H 06/24/18 22:45 Urine Sodium 40 mmol/L 06/24/18 22:45 Urine Total Protein 25 mg/dL (5-11.8) H 06/24/18 22:45 Medications & Allergies - Medications Allergies/Adverse Reactions: Allergies No Known Allergies Allergy (Verified 06/19/18 06:10) Home Medications: Home Medications Medication Instructions Recorded Confirmed Last Taken Type ALBUTEROL Inhaler (OR & NICU) 2 puff IH QID PRN 06/19/18 06/19/18 Unknown History [Proair] Pantoprazole [Protonix] 40 mg PO QDAY 06/19/18 06/19/18 Unknown History levoFLOXacin [Levaquin TAB] 500 mg PO QDAY 06/19/18 06/19/18 Unknown History Active Medications: Generic Name Dose Route Start Last Admin Trade Name Freq PRN Reason Stop Dose Admin Acetaminophen 650 mg 06/19/18 06:30 07/12/18 08:46 Tylenol PO 650 mg Q4H PRN Administration Pain MILD(1-3)/Fever >100.5/WESTON Albuterol/Ipratropium 1 ampul 06/26/18 14:00 07/12/18 09:53 Duoneb *Not For Prn Use* IH 1 ampul Q6HRT PEYTON Administration Lipase/Protease/Amylase 1 each 07/03/18 14:31 Pancremeseret Arroyo 10,500 Unit FEEDTUBE PRN PRN For Clogged Feeding Tube Atovaquone 750 mg 07/03/18 22:00 07/11/18 21:54 Mepron PO 750 mg BID PEYTON Administration Azithromycin 1,200 mg 06/25/18 11:00 07/09/18 10:59 Zithromax PO 1,200 mg Mo PEYTON Administration Dextrose 50 ml 07/02/18 15:00 D50w (25gm) Syringe IV PRN PRN Hypoglycemia Diphenhydramine HCl 50 mg 07/11/18 17:00 07/11/18 17:08 Benadryl IV 50 mg Q24H PEYTON Administration Fentanyl 50 mcg 06/19/18 06:00 06/30/18 21:56 Sublimaze IV 50 mcg Q10MIN PRN Administration ANALGESIA Hydrophilic Ointment 1 applic 06/19/18 06:00 07/11/18 10:55 Vaseline Lip Therapy TP 1 applic Q2HR PRN Administration Dry Lips Fentanyl Citrate 2,000 mcg in 100 mls @ 3.86 mls/hr 06/19/18 06:00 07/12/18 05:19 Fentanyl Drip Premix IV 5 mcg/kg/hr TITR PEYTON 19.301 mls/hr Administration Protocol 1 MCG/KG/HR Norepinephrine 4 mg in 250 mls @ 7.5 mls/hr 06/19/18 15:00 07/10/18 10:00 Levophed Drip 4 Mg/Ns 250 Ml IV 0 mcg/min TITR PEYTON 0 mls/hr Titration Protocol 2 MCG/MIN Propofol 1,000 mg in 100 mls @ 2.601 mls/hr 06/24/18 15:00 07/12/18 03:37 Diprivan 10 Mg/Ml IV 15 mcg/kg/min TITR PEYTON 7.803 mls/hr Administration Protocol 5 MCG/KG/MIN Dextrose 500 mls @ 5 mls/hr 06/25/18 08:56 06/28/18 11:07 D5w IV 5 mls/hr PRN PRN Administration FLUSH BEFORE AND AFTER AMPHO B Vasopressin 20 unit/ Sodium 101 mls @ 9.09 mls/hr 06/29/18 23:00 07/03/18 22:23 Chloride IV 0 units/min TITR PEYOTN 0 mls/hr Titration Protocol 0.03 UNITS/MIN Ganciclovir Sodium 500 mg/ 250 mls @ 100 mls/hr 07/05/18 06:00 07/12/18 05:03 Sodium Chloride IV 100 mls/hr Q12HR@0600,1800 PEYTON Administration Dextrose 1,000 mls @ 70 mls/hr 07/08/18 13:00 07/11/18 21:54 D5w IV 70 mls/hr DIRECT PEYTON Administration Amphotericin B 450 mg/ 590 mls @ 250 mls/hr 07/10/18 18:00 07/11/18 17:23 Dextrose IV 250 mls/hr Q24H PEYTON Administration Protocol Metronidazole 500 mg in 100 mls @ 100 mls/hr 07/10/18 17:00 07/12/18 05:02 Flagyl 500 Mg/100 Ml IV 100 mls/hr Q8HR PEYTON Administration Protocol Cefepime HCl 2 gm in 100 mls @ 200 mls/hr 07/12/18 10:00 Maxipime/Ns 2 Gm/100 Ml IV Q24HR PEYTON Protocol Midazolam HCl 100 mg/ Sodium 100 mls @ 2 mls/hr 07/11/18 15:00 07/12/18 06:25 Chloride IV 4 mg/hr TITR PEYTON 4 mls/hr Administration Protocol 2 MG/HR Insulin Glargine 8 units 07/07/18 12:11 07/11/18 21:55 Lantus SUB-Q 8 units QHS PEYTON Administration Insulin Human Lispro 0 unit 06/20/18 13:00 07/12/18 06:25 Humalog SUB-Q 4 unit Q6HR PEYTON Administration Protocol Lansoprazole 30 mg 07/03/18 11:00 07/11/18 09:58 Prevacid Solutab FEEDTUBE 30 mg QDAY PEYTON Administration Methylprednisolone Sodium Succinate 40 mg 07/11/18 17:00 07/11/18 17:08 Solu-Medrol IV 40 mg Q24H PEYTON Administration Midazolam HCl 2 mg 07/11/18 14:55 07/11/18 16:45 Versed IV 2 mg Q10MIN PRN Administration Sedation Multi-Ingred Cream/Lotion/Oil/Oint 1 applic 06/19/18 06:00 07/11/18 10:55 Artificial Tears Ophth Oint OU 1 applic Q4HR PRN Administration Dry Eye(s) Ondansetron HCl 4 mg 06/19/18 06:30 06/30/18 21:55 Zofran IV 4 mg Q8H PRN Administration Nausea And Vomiting Phenylephrine HCl 2 spray 06/24/18 06:07 07/09/18 14:48 Thompson-Synephrine NS 2 spray Q4H PRN Administration Congestion Scopolamine 1 each 07/10/18 13:00 07/10/18 14:09 Transderm-Scop TD 1 each Q3D PEYTON Administration Simple Syrup 15 ml 07/03/18 14:31 Simple Syrup FEEDTUBE PRN PRN Hypoglycemia Simple Syrup 30 ml 07/03/18 14:31 Simple Syrup FEEDTUBE PRN PRN Hypoglycemia Sodium Bicarbonate 325 mg 07/03/18 15:14 Sodium Bicarbonate FEEDTUBE PRN PRN For Clogged Feeding Tube Sodium Chloride 10 ml 06/19/18 10:00 07/12/18 10:57 Sodium Chloride Flush Syringe 10 Ml IV 10 ml BID PEYTON Administration Sodium Chloride 10 ml 06/19/18 06:30 Sodium Chloride Flush Syringe 10 Ml IV PRN PRN LINE FLUSH
--- NOTE | 2018-07-12 11:24 | Progress Note ---
Assessment and Plan Cultures: 06/19/2018 blood culture: no growth 06/19/2018 tracheal aspirate: usual resp david/ Rothia mucilaginosa 06/19/2018 fungal blood culture: no growth 06/20/2018 Serum CrAg: negative Cytology PJP stain negative GMS stain showed septated fungal hyphae with acute angle branching and yeast forms c/w Aspergillus, Fusarium, Scedosporium and other Dematiaceous fungi. DFA showed rare PJP CMV DNA PCR 06/19/2018 13,166 BAL 06/25/2018 Tigist albicans, fungal culture negative Toxo IgG: negative 07/09/2018 Blood culture: No growth A/P: 32/M with: #1 Acute hypoxic and hypercapneic respiratory failure, refractory with bilateral pneumonia and ARDS: Extensive bilateral ground glass opacities and pneumonia with severe hypoxia. Unclear etiology ? PJP versus invasive fungal versus disseminated CMV. 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 Lung cytology GMS stain showed septated fungal hyphae with acute angle branching and yeast forms c/w Aspergillus, Fusarium, Scedosporium and other Dematiaceous fungi. 06/19/2018 tracheal aspirate showed usual resp david/ Rothia mucilaginosa. 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 - s/p voriconazole x 4 days - no improvement, stopped on 06/25 - s/p amphotericin x 10 days on 06/25 -07/04 - Serum CMV DNA PCR 06/19/2018 13,166 - BAL 06/25/2018 Tigist albicans likely a colonizer, AFB negative, fungal culture negative - completed vancomycin renally dosed to cover Rothia D5 on 06/28 - Aspregillus ag negative - S/p bactrim renally adjusted D15 on 07/03 - f/u CMV PCR from 07/10/2018 - Back on Cefepime, Vancomycin on 07/09/2018, Ampho restarted on 07/10/2018. - Blood CMV PCR 07/04/2018 79K 4.8 log, hence, continue Ganciclovir at full dose #2 HIV/AIDS: CD4=10 / VL 1,300,000 copies. Overall, extremely poor prognosis. Still with uncontrolled opportunistic infections, labile renal function, cannot start HAART due to risk of IRIS and additional complications. #3 Bloody lien/nasopharyngeal secretions: concerning for possible invasive sinusitis. Not stable to send down for CT due to desaturations. #4 JENNIFER: creatinine went up and then down again but vancomycin trough is high, suggestive of low creatinine clearance. #5 Epistaxis on 06/24/2018 s/p packing, resolved #6 Hypernatremia and respiratory acidosis: per retail loan officer. #7 Acute encephalopathy: consider MRI brain and LP when stable. Recs: continue renally adjusted Cefepime, Vancomycin, discussed with ICU pharmacist continue IV Amphotericin B lipid complex 5 mg/kg daily for now with adequate hydration Monitor BMP, Magnesium, Phosphate daily and correct accordingly f/u CMV PCR from 07/10/2018 continue ganciclovir D15, may have to decrease dose if leucopenia starts to worsen continue mepron continue azithromycin 1200 mg qweek for MAC prophylaxis continue Flagyl for anaerobic coverage for sinusitis As per my discussion with risk management with the patient being unresponsive, critically ill and extremely high mortality risk, we can HIV status can be disclosed to his parents, but not to other family. Overall, extremely poor prognosis. Patient is DNR, agree with status. Nimesh Sanchez MD [facility] C: [phone] O: [phone] F: [phone] Subjective Date of service: 07/12/18 Principal diagnosis: Acute Hypoxemic Resp Failure; AIDS / HIV positive; Severe Sepsis due to PNA Interval history: Still spiking fevers. Remains unresposnive. on Vent. Objective - Exam Narrative Exam: Physical Exam: Constitutional: sedated, intubated. Head, Ears, Nose: Normocephalic, atraumatic. External ears, nose with some bloody secretions Eyes: Conjunctivae/corneas clear. No icterus. No ptosis. Neck: Supple, no meningeal signs Oral: intubated Cardiovascular: S1, S2 normal. Respiratory: Good air entry, clear to auscultation bilaterally GI: Soft, non-tender; bowel sounds normal. No peritoneal signs Musculoskeletal: anasarca Skin: No rash or abscess Hem/Lymphatic: No palpable cervical or supraclavicular nodes. No lymphangitis Psych: sedated. Neurological: sedated, intubated, on vent, exam limited - Constitutional Vitals: Vital Signs Temp Pulse Resp BP Pulse Ox 103.1 F H 116 H 30 H 102/40 97 07/12/18 08:00 07/12/18 10:45 07/12/18 10:45 07/12/18 10:45 07/12/18 10:45 Temperature -Last 24 Hours Temperature 103.1 F Temperature 101.1 F Temperature 100.9 F Temperature 101.2 F Temperature 102.9 F Temperature 101.5 F Temperature 101.6 F - Labs CBC & Chem 7: 07/12/18 05:19 07/12/18 05:19 Labs: Abnormal lab results 07/09/18 07/09/18 07/09/18 Range/Units 00:24 05:20 05:41 WBC (4.5-11.0) K/mm3 RBC (3.65-5.03) M/mm3 Hgb (11.8-15.2) gm/dl Hct (35.5-45.6) % RDW (13.2-15.2) % Plt Count (140-440) K/mm3 POC ABG pH 7.319 L (7.35-7.45) POC ABG pO2 78 L (80-105) Sodium (137-145) mmol/L Carbon Dioxide (22-30) mmol/L BUN (9-20) mg/dL Glucose (75-100) mg/dL POC Glucose 173 H 157 H (70-105) Calcium (8.4-10.2) mg/dL Triglycerides (2-149) mg/dL Vancomycin Trough (5.0-20.0) ug/mL Crossmatch 07/09/18 07/09/18 07/09/18 Range/Units 11:00 12:25 17:57 WBC (4.5-11.0) K/mm3 RBC (3.65-5.03) M/mm3 Hgb (11.8-15.2) gm/dl Hct (35.5-45.6) % RDW (13.2-15.2) % Plt Count (140-440) K/mm3 POC ABG pH 7.248 L (7.35-7.45) POC ABG pO2 (80-105) Sodium (137-145) mmol/L Carbon Dioxide (22-30) mmol/L BUN (9-20) mg/dL Glucose (75-100) mg/dL POC Glucose 129 H 186 H (70-105) Calcium (8.4-10.2) mg/dL Triglycerides (2-149) mg/dL Vancomycin Trough (5.0-20.0) ug/mL Crossmatch 07/09/18 07/10/18 07/10/18 Range/Units 23:53 05:19 12:03 WBC (4.5-11.0) K/mm3 RBC (3.65-5.03) M/mm3 Hgb (11.8-15.2) gm/dl Hct (35.5-45.6) % RDW (13.2-15.2) % Plt Count (140-440) K/mm3 POC ABG pH (7.35-7.45) POC ABG pO2 (80-105) Sodium (137-145) mmol/L Carbon Dioxide (22-30) mmol/L BUN (9-20) mg/dL Glucose (75-100) mg/dL POC Glucose 174 H 139 H 178 H (70-105) Calcium (8.4-10.2) mg/dL Triglycerides (2-149) mg/dL Vancomycin Trough (5.0-20.0) ug/mL Crossmatch 07/10/18 07/10/18 07/11/18 Range/Units 17:00 18:20 00:36 WBC (4.5-11.0) K/mm3 RBC (3.65-5.03) M/mm3 Hgb (11.8-15.2) gm/dl Hct (35.5-45.6) % RDW (13.2-15.2) % Plt Count (140-440) K/mm3 POC ABG pH 7.272 L (7.35-7.45) POC ABG pO2 234 H (80-105) Sodium (137-145) mmol/L Carbon Dioxide (22-30) mmol/L BUN (9-20) mg/dL Glucose (75-100) mg/dL POC Glucose 187 H 172 H (70-105) Calcium (8.4-10.2) mg/dL Triglycerides (2-149) mg/dL Vancomycin Trough (5.0-20.0) ug/mL Crossmatch 07/11/18 07/11/18 07/11/18 Range/Units 05:39 08:00 12:17 WBC (4.5-11.0) K/mm3 RBC (3.65-5.03) M/mm3 Hgb (11.8-15.2) gm/dl Hct (35.5-45.6) % RDW (13.2-15.2) % Plt Count (140-440) K/mm3 POC ABG pH (7.35-7.45) POC ABG pO2 (80-105) Sodium (137-145) mmol/L Carbon Dioxide (22-30) mmol/L BUN (9-20) mg/dL Glucose (75-100) mg/dL POC Glucose 143 H 159 H (70-105) Calcium (8.4-10.2) mg/dL Triglycerides (2-149) mg/dL Vancomycin Trough (5.0-20.0) ug/mL Crossmatch See Detail 07/11/18 07/11/18 07/11/18 Range/Units 13:19 15:35 16:00 WBC (4.5-11.0) K/mm3 RBC (3.65-5.03) M/mm3 Hgb 8.2 L (11.8-15.2) gm/dl Hct 24.5 L D (35.5-45.6) % RDW (13.2-15.2) % Plt Count (140-440) K/mm3 POC ABG pH 7.218 L (7.35-7.45) POC ABG pO2 146 H (80-105) Sodium (137-145) mmol/L Carbon Dioxide (22-30) mmol/L BUN (9-20) mg/dL Glucose (75-100) mg/dL POC Glucose (70-105) Calcium (8.4-10.2) mg/dL Triglycerides (2-149) mg/dL Vancomycin Trough 36.5 H (5.0-20.0) ug/mL Crossmatch 07/11/18 07/11/18 07/12/18 Range/Units 18:16 23:36 05:19 WBC 3.8 L (4.5-11.0) K/mm3 RBC 2.51 L (3.65-5.03) M/mm3 Hgb 7.6 L (11.8-15.2) gm/dl Hct 22.8 L (35.5-45.6) % RDW 15.4 H (13.2-15.2) % Plt Count 48 L (140-440) K/mm3 POC ABG pH (7.35-7.45) POC ABG pO2 (80-105) Sodium (137-145) mmol/L Carbon Dioxide (22-30) mmol/L BUN (9-20) mg/dL Glucose (75-100) mg/dL POC Glucose 145 H 183 H (70-105) Calcium (8.4-10.2) mg/dL Triglycerides (2-149) mg/dL Vancomycin Trough (5.0-20.0) ug/mL Crossmatch 07/12/18 Range/Units 05:19 WBC (4.5-11.0) K/mm3 RBC (3.65-5.03) M/mm3 Hgb (11.8-15.2) gm/dl Hct (35.5-45.6) % RDW (13.2-15.2) % Plt Count (140-440) K/mm3 POC ABG pH (7.35-7.45) POC ABG pO2 (80-105) Sodium 146 H (137-145) mmol/L Carbon Dioxide 34 H (22-30) mmol/L BUN 53 H (9-20) mg/dL Glucose 201 H (75-100) mg/dL POC Glucose (70-105) Calcium 7.4 L (8.4-10.2) mg/dL Triglycerides 564 H (2-149) mg/dL Vancomycin Trough (5.0-20.0) ug/mL Crossmatch
[2018-07-12] MEDS: D5W 1,000 ML IV SCH (16:23)
[2018-07-12] MEDS: SOLU-Medrol IV SCH (16:26)
[2018-07-12] MEDS: BENADRYL IV SCH (16:39)
[2018-07-12] MEDS: ABELCET IV SCH (17:36)
[2018-07-12] MEDS: D5W IV SCH (17:36)
[2018-07-12] MEDS ORDERED: LASIX IV ONE (21:14)
[2018-07-12] MEDS: LANTUS SUB-Q SCH (21:40)
[2018-07-13 00:16] VITALS: BP 100/41
--- NOTE | 2018-07-13 03:05 | Event Note ---
Date: 07/13/18 CALLED TO EVALUATE A PATIENT SUSPECTED TO HAVE , ON EXAMINATION; PATIENT WAS FOUND LYING LIFELESS ON HIS BED STILL INTUBATED AND HAS NO SPONTANEOUS MOVEMENT OR RESPIRATION. PUPILS WERE FIXED AND DILATED. AUSCULTATION OF CHEST SHOW NO AIR MOVEMENT . AUSCULTATION OF THE HEART SHOW NO IMPULSES. CARDIAC MORNITOR SHOWED ASYSTOLE ON 2 LEADS. PATIENT WAS PRONOUNCED AT 1:25 A.M .
--- NOTE | 2018-07-13 08:29 | Death Summary ---
Summary - Providers Date of service: 07/13/18 Consults: 06/19/18 06:30 Consult to Physician [CONS] Routine Comment: Consulting Provider: JOSE MCNAIR Physician Instructions: Reason For Exam: cc 06/19/18 06:51 Consult to Physician [CONS] Urgent Comment: Consulting Provider: BRITTANY MANDUJANO Physician Instructions: Reason For Exam: PNA 06/19/18 10:10 Consult to Dietitian/Nutrition [CONS] Routine Physician Instructions: Reason For Exam: Reason for Consult: Write/Manage Tube Feeding 06/19/18 14:33 Consult to PICC Line RN [CONS] Stat Reason For Exam: SHOCK Type Line:: PICC 06/23/18 15:22 Consult to Physician [CONS] Routine Comment: Consulting Provider: STACY BESS Physician Instructions: Reason For Exam: jennifer 06/24/18 14:57 Consult to Physician [CONS] Routine Comment: Consulting Provider: JESSICA RODRIGUEZ Physician Instructions: Reason For Exam: evaluate for IVC filter placement 07/01/18 08:33 Consult to Physician [CONS] Routine Comment: Consulting Provider: JIM STREET Physician Instructions: Reason For Exam: Gross hematuria 07/02/18 11:40 Consult to Dietitian/Nutrition [CONS] Routine Physician Instructions: Assess nutrtn needs, initiate, modify, manage TF Reason For Exam: Reason for Consult: Write/Manage Tube Feeding Reason for Consult: Write/Manage Tube Feeding 07/05/18 12:31 Consult to PICC Line RN [CONS] Routine Reason For Exam: Central IV access Type Line:: PICC 07/06/18 08:58 Consult to Dietitian/Nutrition [CONS] Routine Physician Instructions: Assess nutrtn needs, initiate, modify, manage TF Reason For Exam: Reason for Consult: Write/Manage Tube Feeding Reason for Consult: Write/Manage Tube Feeding 07/09/18 09:10 Consult to Wound/ET Nurse [CONS] Stat Reason For Exam: wound eval sacrum and back Attending: BEST RODRIGUEZ - summary Date of admission: 06/19/18 06:30 Date of : 07/13/18 Procedures/treatments rendered: Patient is 32 yo with hypertension presented with shortness of breath, cough. He was found to have bilateral infiltrates. He was diagnosed with acute respiratory failure due to bilateral pneumonia. He was started on iv Ant ibiotics, put on BIPAP. He became worse, was intubated. Labs show + HIV/AIDS, new diagnosis. Patient was followed by Pulmonology, ID Physician. Few days into admission, he developed JENNIFER due to ATN from sepsis, contrast exposure and medications. Rust catheter was placed and Cr improved and normalised. Patient then developed gross hematuria, which later resolved. he had septic shock was on pressors, later weaned off. He remained critically ill. vent dependent.. Family eventually decided on DNR. he never improved. he continued to decline and 07/13/18 at 01:25 am. Total time spent on discharge, 42 mins - Final diagnosis (1) Septic shock Note: Final diagnosis: (2) AIDS (acquired immune deficiency syndrome) Note: Final diagnosis: (3) Acute kidney failure with tubular necrosis Note: Final diagnosis: (4) Acute tubular necrosis Note: Final diagnosis: (5) Bilateral pneumonia Qualifiers: Pneumonia type: due to unspecified organism Lung location: unspecified part of lung Qualified Code(s): J18.9 - Pneumonia, unspecified organism Note: Final diagnosis: (6) Hyperkalemia Note: Final diagnosis: (7) Hypernatremia Note: Final diagnosis: (8) Sepsis Qualifiers: Sepsis type: sepsis due to unspecified organism Qualified Code(s): A41.9 - Sepsis, unspecified organism Note: Final diagnosis: (9) Fever Note: Final diagnosis: (10) Metabolic acidosis Note: Final diagnosis: (11) Anemia due to chronic illness Note: Final diagnosis: (12) Anemia due to acute blood loss Note: Final diagnosis:
== END 2018-07-13 01:05 | DRG 974 ==
LOC: SUATTDRO 02:31 → ED 02:31 → CC1 06:30
PROVIDERS: ADMIT Internal Medicine; ATTEND Internal Medicine
PROC: 4A033R1 Measurement of Arterial Saturation, Peripheral, Percutaneous Approach (ICD-10-PCS; 2018-06-19)
PROC: 02HV33Z Insertion of Infusion Device into Superior Vena Cava, Percutaneous Approach (ICD-10-PCS; 2018-06-19)
PROC: B548ZZA Ultrasonography of Superior Vena Cava, Guidance (ICD-10-PCS; 2018-06-19)
PROC: 2Y41X5Z Packing of Nasal Region using Packing Material (ICD-10-PCS; 2018-06-24)
PROC: 0B9B8ZZ Drainage of Left Lower Lobe Bronchus, Via Natural or Artificial Opening Endoscopic (ICD-10-PCS; 2018-06-25)
PROC: 0B968ZZ Drainage of Right Lower Lobe Bronchus, Via Natural or Artificial Opening Endoscopic (ICD-10-PCS; 2018-06-25)
PROC: 30233N1 Transfusion of Nonautologous Red Blood Cells into Peripheral Vein, Percutaneous Approach (ICD-10-PCS; principal; 2018-06-29)
PROC: 5A1955Z Respiratory Ventilation, Greater than 96 Consecutive Hours (ICD-10-PCS; 2018-07-06)
PROC: 0BH17EZ Insertion of Endotracheal Airway into Trachea, Via Natural or Artificial Opening (ICD-10-PCS; 2018-07-06)
DX: B20 Human immunodeficiency virus [HIV] disease (principal); A41.9 Sepsis, unspecified organism; J96.01 Acute respiratory failure with hypoxia; J18.9 Pneumonia, unspecified organism; K72.00 Acute and subacute hepatic failure without coma; N17.0 Acute kidney failure with tubular necrosis; R65.21 Severe sepsis with septic shock; E87.1 Hypo-osmolality and hyponatremia; D62 Acute posthemorrhagic anemia; I82.4Z2 Acute embolism and thrombosis of unspecified deep veins of left distal lower extremity; E87.0 Hyperosmolality and hypernatremia; I10 Essential (primary) hypertension; E87.5 Hyperkalemia; I27.20 Pulmonary hypertension, unspecified; R04.0 Epistaxis; R31.9 Hematuria, unspecified; D69.6 Thrombocytopenia, unspecified; Z66 Do not resuscitate; R73.9 Hyperglycemia, unspecified
CPT/HCPCS: 31500; 36415; 36600; 70450; 71045; 71275; 74018; 76770; 80048; 80053; 80074; 80076; 80202; 80307; 81001; 82024; 82140; 82270; 82565; 82570; 82803; 82947; 82962; 83036; 83690; 83880; 84156; 84300; 84478; 84484; 84520; 85007; 85014; 85018; 85025; 85027; 85379; 85384; 85610; 85730; 86140; 86403; 86689; 86777; 86850; 86900; 86901; 86920; 87040; 87070; 87102; 87103; 87116; 87205; 87220; 87400; 87497; 87535; 87536; 87806; 87901; 88112; 88312; 89050; 93005; 93010; 93306; 93970; 94002; 94003; 94640; G0378; 87502; C9113; J0287; J0330; J0610; J0692; J0696; J1120; J1200; J1570; J1630; J1644; J1650; J1815; J1885; J1940; J1956; J2060; J2250; J2405; J2543; J2704; J2920; J2930; J3010; J3370; J3465; J7030; J7040; J7050; J7060; J7070; P9016; Q9967